=== PATIENT | male | born 1960 | race American Indian/Alaskan Native ===

== ENCOUNTER 2017-07-11 19:40 | Emergency (ER) | payer BC, OTHER ==
[~2017-07-11] VITALS: Ht 182.9 cm; Wt 117.9 kg
[~2017-07-11 19:40] MED LIST: "\\\"BP MED\\\""; AUGMENTIN 500-500 MG PO; AUGMENTIN 875-1 EACH PO; GLIMEPIRIDE1 MG PO; LANTUS100 UNITS/ SUB-Q; SENSIPAR30 MG PO; VIAGRA100 MG PO
[2017-07-11] MEDS ORDERED: LEVOFLOXACIN750 MG PO (19:52)
== END 2017-07-11 21:00 | disposition home or self-care (01) ==
LOC: ED 19:40
PROC: 0HQCXZZ Repair Left Upper Arm Skin, External Approach (ICD-10-PCS; principal; 2017-07-11)
DX: T82.838A Hemorrhage due to vascular prosthetic devices, implants and grafts, initial encounter (principal); E11.40 Type 2 diabetes mellitus with diabetic neuropathy, unspecified; I10 Essential (primary) hypertension; Z87.891 Personal history of nicotine dependence; Z88.8 Allergy status to other drugs, medicaments and biological substances; Z79.899 Other long term (current) drug therapy; Z79.4 Long term (current) use of insulin
CPT/HCPCS: 12001; 99282

== ENCOUNTER 2017-12-19 18:16 | Emergency (ER) | payer BC, OTHER ==
[~2017-12-19] VITALS: Ht 182.9 cm; Wt 117.9 kg
--- OUTSIDE RECORDS SUMMARY | ~2017-12-19 | XMS | Clinical Summary ---
Demographics + + + | Address | [address] | | | [place] [address] | + + + | Home Phone | | + + + | Preferred Language | Unknown | + + + | Marital Status | Single | + + + | Amish Affiliation | Unknown | + + + | Race | or | + + + | Ethnic Group | Not or | + + + Author + + + | Author | NON REVENUE LOCATIONS | + + + | Organization | NON REVENUE LOCATIONS | + + + | Address | Unknown | + + + | Phone | Unavailable | + + + Support + + +---------+ + | Name | Relationship | Address | Phone | + + +---------+ + | SERGEY, MERRY | ECON | Unknown | Unavailable | + + +---------+ + | Srinvias Case | ECON | Unknown | | + + +---------+ + Care Team Providers + +------+ + | Care Dietetic Assistant Name | Role | Phone | + +------+ + | No Pcp Per Patient | PP | Unavailable | + +------+ + Source Comments DOROTEO is fully live on both [facility] and [facility] InPatient.[facility] Allergies Not on File Current Medications Not on file Active Problems + + + | Problem | Noted Date | + + + | Type II or unspecified type diabetes mellitus with renal | | | manifestations, not stated as uncontrolled(250.40) ([facility]) | | + + + + + | Overview: [id number] | + + Social History + + + +--------+------+ | Tobacco Use | Types | Packs/Day | Years | Date | | | | | Used | | + + + +--------+------+ | Former Smoker | Cigarettes | | | | + + + +--------+------+ + + | Comments: smoked ~ 1pack/month; quit in 1998 | + + + + +---------+ + | Alcohol Use | Drinks/We | oz/Week | Comments | | | ek | | | + + +---------+ + | Yes | | | 6 drinks/month | + + +---------+ + + + + | Sex Assigned at | Date Recorded | | | | + + + | Not on file | | + + + Plan of Treatment + + + + + | Health Maintenance | Due Date | Last Done | Comments | + + + + + | INFLUENZA VACCINE | | | | | (FLU SHOT) | 7 | | | + + + + + Results Not on filefrom Last 3 Months"
--- OUTSIDE RECORDS SUMMARY | ~2017-12-19 | XMS | Clinical Summary ---
Demographics + + + | Address | [address] | | | [place] [address] | + + + | Home Phone | | + + + | Preferred Language | Unknown | + + + | Marital Status | Single | + + + | Zoroastrianism Affiliation | Unknown | + + + [...] Team Providers + +------+ + | Care Brake Lining Finisher Asbestos Name | Role | Phone | + +------+ + | No Pcp Per Patient | PP | Unavailable | + +------+ + Source Comments DOROTEO is fully live on both [facility] and [facility] InPatient.[facility] Allergies Not on File Current Medications Not on file Active Problems + + + | Problem | Noted Date | + + + | Type II or unspecified type diabetes mellitus with renal | | | manifestations, not stated as uncontrolled(250.40) ([facility]) | | + + + + + [...]
[~2017-12-19 18:16] MED LIST changes: +LEVOFLOXACIN750 MG PO
[2017-12-19] MEDS ORDERED: BACTRIM DS TAB1 EACH PO (19:12)
[2017-12-19] MEDS ORDERED: CEPHALEXIN500 MG PO (19:12)
[2017-12-19] MEDS ORDERED: NORCO 5-325 TA1 EACH PO (19:14)
== END 2017-12-19 19:46 | disposition home or self-care (01) ==
LOC: ED 18:16
DX: L03.116 Cellulitis of left lower limb (principal); I12.9 Hypertensive chronic kidney disease with stage 1 through stage 4 chronic kidney disease, or unspecified chronic kidney disease; E11.22 Type 2 diabetes mellitus with diabetic chronic kidney disease; E11.40 Type 2 diabetes mellitus with diabetic neuropathy, unspecified; N18.9 Chronic kidney disease, unspecified; Z99.2 Dependence on renal dialysis; Z87.891 Personal history of nicotine dependence; Z88.8 Allergy status to other drugs, medicaments and biological substances; Z79.899 Other long term (current) drug therapy; Z79.4 Long term (current) use of insulin
CPT/HCPCS: 99283

== ENCOUNTER 2019-12-29 18:23 | Emergency (ER) | payer BC, OTHER ==
[~2019-12-29] VITALS: Ht 182.9 cm; Wt 117.9 kg
[~2019-12-29 18:23] MED LIST changes: +BACTRIM DS TAB1 EACH PO; +CEPHALEXIN500 MG PO; +NORCO 5-325 TA1 EACH PO
--- NOTE | 2019-12-30 08:15 | EKG ---
[facility] [address] [facility] [place] [address] Signed Atrial fibrillation with rapid ventricular response with premature ventricular or aberrantly conducted complexes Nonspecific T wave abnormality Abnormal ECG Confirmed by SAGAR HAIDER MD ([id number]) on 12/30/2019 8:15:23 AM Electronically Signed By: SAGAR HAIDER MD 12/30/19814 PATIENT NAME: CASEISIDRA Electrocardiogram DATE OF : 58 PHYSICIAN: SAGAR HAIDER MD REPORT #: [id number] REPORT IS CONFIDENTIAL AND NOT TO BE RELEASED WITHOUT AUTHORIZATION
== END 2019-12-29 22:00 | disposition short-term general hospital (02) ==
LOC: ED 18:23
DX: A41.9 Sepsis, unspecified organism (principal); R65.20 Severe sepsis without septic shock; E11.22 Type 2 diabetes mellitus with diabetic chronic kidney disease; I12.9 Hypertensive chronic kidney disease with stage 1 through stage 4 chronic kidney disease, or unspecified chronic kidney disease; N18.9 Chronic kidney disease, unspecified; I48.91 Unspecified atrial fibrillation; E11.40 Type 2 diabetes mellitus with diabetic neuropathy, unspecified; Z79.4 Long term (current) use of insulin; Z79.899 Other long term (current) drug therapy
CPT/HCPCS: 71045; 80053; 83605; 85025; 87502; 93005; 93010; 96365; 96367; 96375; 99285-25; J0692; J2405; J3370; J7040; J7060

== ENCOUNTER → 2020-03-04 | Emergency (ER) | payer OTHER ==
[~2020-03-04] VITALS: Ht 182.9 cm; Wt 117.9 kg
--- NOTE | ~2020-03-04 | EKG ---
[facility] [address] [facility] [place], [place] [address] Draft EK completed, results pending confirmation PATIENT NAME: ISIDRA RINCON Electrocardiogram DATE OF : 58 PHYSICIAN: PRELIMINARY REPORT #: [id number] REPORT IS CONFIDENTIAL AND NOT TO BE RELEASED WITHOUT AUTHORIZATION
--- OUTSIDE RECORDS SUMMARY | ~2020-03-04 | XMS | Encounter Summary ---
Demographics + + + | Address | [address] | | | [place] [address] | + + + | Home Phone | | + + + | Preferred Language | Unknown | + + + | Marital Status | | + + + | Scientologist Affiliation | 1041 | + + + | Race | Unknown | + + + | Ethnic Group | Unknown | + + + Author + + + | Author | [facility] | | | and [place] | + + + | Organization | [facility] | | | and [place] | + + + | Address | Unknown | + + + | Phone | Unavailable | + + + Support + + +---------+ + | Name | Relationship | Address | Phone | + + +---------+ + | Lito Case | ECON | Unknown | | + + +---------+ + Care Team Providers + +------+ + | Care Dress Cutter Name | Role | Phone | + +------+ + PCP | Unavailable | + +------+ + Reason for Visit + + + | Reason | Comments | + + + | Dialysis | | | (Asymptomatic) | | + + + Encounter Details +--------+ + + + + | Date | Type | Department | Care Team | Description | +--------+ + + + + | 04/24/ | Documentati | [facility] | Kuo, Lexi W, | Dialysis | | 2014 | on | NEPHROLOGY [address] | MD [address] | (Asymptomatic) | | | | [address] | [address] [place] | | | | | [place], [place] | [place] [address] | | | | | [address] | [phone] | | | | | [phone] | | | +--------+ + + + + Social History + + + +--------+ + | Tobacco Use | Types | Packs/Day | Years | Date | | | | | Used | | + + + +--------+ + | Former Smoker | Cigarettes | 0 | | Quit: 05/27/1993 | + + + +--------+ + + +---+---+---+ | Smokeless Tobacco: | | | | | Never Used | | | | + +---+---+---+ + + +---------+ + | Alcohol Use | Drinks/Week | oz/Week | Comments | + + +---------+ + | Yes | | | 2 beers/ month | + + +---------+ + + + + | Sex Assigned at | Date Recorded | | | | + + + | Not on file | | + + + + + + + | Job Start Date | Occupation | Industry | + + + + | Not on file | Not on file | Not on file | + + + + + + + + | Travel History | Travel Start | Travel End | + + + + + + | No recent travel history available. | + + documented as of this encounter Progress Notes Dedra Camara - 05/04/2014 11:01 AM PDTHEMO progress note manually faxed to Laine Guidry and e-faxed to Frances Obrien MD on 05/04/14. Lexi Hollingsworth MD - 04/24/2014 2:29 PM PDT Comprehensive Dialysis Monthly Note Date of visit: 04/24/2014 Dialysis Clinic: [facility] Mode of dialysis: Hemodialysis Dialysis prescription: MWF, t=4 hrs, Na 138, K 2, BFR 475, EDW 119 kg HPI: CELSO CARO is a 54 y.o. male with ESRD on hemodialysis. Pt reports feeling well. Pt reports he forgets to take his phos-binders sometimes. Pt has stopped the Cinacalcet as instructed in February 2014. Pt denies shortness of breath, chest pain, edema, dysuria, abdominal pain, lightheadedness, muscle cramps. PROBLEM LIST: Patient Active Problem List Diagnosis Date Noted End stage renal disease (HCC) 08/07/2013 Priority: High Note Last Updated: 03/02/2014 ESRD due to diabetic nephropathy. On hemodialysis. Access: Left brachial-cephalic AVF created on 07/28/13. Anemia in ESRD (end-stage renal disease) ([facility]) 12/24/2013 Hypertension 09/22/2013 Preventative health care 06/25/2013 Note Last Updated: 06/25/2013 LAST PSA:No record found RESULT: LAST COLONOSCOPY: No record found RESULT Secondary hyperparathyroidism (of renal origin) 01/23/2013 Right renal mass 10/18/2012 BPH (benign prostatic hyperplasia) Note Last Updated: 10/18/2012 flomax caused diarrhea Recurrent UTI Heart murmur Note Last Updated: 10/18/2012 Since childhood Type II or unspecified type diabetes mellitus with renal manifestations, uncontrolled Note Last Updated: 10/18/2012 with neuropathy Vitamin d deficiency Obesity Dyslipidemia Hepatitis C Diabetic foot ulcer 01/01/2012 Note Last Updated: 10/18/2012 cellulits, 2nd left toe Allergies Allergen Reactions Amlodipine Besylate Unknown Metformin Diarrhea Outpatient Prescriptions Marked as Taking for the 04/24/14 encounter (Documentation) with Chris Kuo MD Medication Sig Dispense Refill aspirin 81 mg EC tablet Take 81 mg by mouth Daily. atorvaSTATin (LIPITOR) 20 mg tablet Take 1 tablet by mouth Daily. 30 tablet 5 B Cosiwfb-G-Wpiyl Acid (OLEG-TEQUILA RX) 1 MG TABS Take 1 mg by mouth Daily. 30 each 11 calcium carbonate (TUMS) 500 mg chewable tablet Take 2 tablets by mouth nightly. Cholecalciferol (VITAMIN D3) 5000 UNITS CAPS Take 5,000 Units by mouth Daily. diltiazem (DILACOR XR) 180 mg 24 hr capsule Take 180 mg by mouth Daily. doxercalciferol (HECTOROL) 4 MCG/2ML injection Inject 7 mcg into the vein Three times a week. epoetin padilla (EPOGEN, PROCRIT) 10,000 units/mL injection Inject 2,200 Units into the ve in Twice a week. furosemide (LASIX) 40 mg tablet Take 40 mg by mouth Daily. insulin glargine (LANTUS) 100 units/mL injection Inject 110 Units under the skin nightl y. Iron Sucrose (VENOFER IV) 50 mg by IV Push route Once a week. lisinopril (PRINIVIL,ZESTRIL) 40 MG tablet Take 40 mg by mouth Daily. metoprolol (TOPROL-XL) 100 MG 24 hr tablet Take 100 mg by mouth Daily. omeprazole (PRILOSEC) 20 mg capsule Take 20 mg by mouth every morning (before breakfast ). sevelamer carbonate (RENVELA) 800 mg tablet Take 1,600 mg by mouth 3 times daily (with meals). sitaGLIPtin (JANUVIA) 100 mg tablet Take 25 mg by mouth Daily. EXAM: T 97.5, HR 68, BP 157/72, weight 119.8 kg, gain 0.1 kg Constitutional: Appears well-developed and well-nourished. No distress. Cardiovascular: Normal rate, regular rhythm and normal heart sounds. No peripheral edema. Lungs: Respiratory effort normal and breath sounds normal. No crackles or wheezes. Abdominal: Soft. Bowel sounds are normal. Neurological: Alert. Dialysis Access: BFR 475 mL/min via LUE AVF. DIALYSIS LABS: K 5.0, Na 131, bicarb 21 Albumin 3.5, Ca 8.1, phos 6.4 (5.8), PTH 466 (426) Hb 11.3 URR 72%, ekt/v 1.26 ASSESSMENT AND PLAN: 1. ESRD: Dialysis clearance is at goal. . 2. Access: LUE AVF functioning well. 3. HTN/volume: Clinic BP is stable. EDW adjusted to 119 kg. 4. Anemia due to ESRD: Hb stable. On ESTIVEN. On maintenance Venofer. 5. Secondary hyperparathyroidism / mineral bone disease. -hypocalcemia: serum calcium improved; pt is inconsistent with TUMS -hyperphosphatemia: serum phos elevated; pt is inconsistent with Renvela -will switch to phosLo 2 T/meals 6. Acid-base: Serum bicarb is acceptable. 7. Nutrition: On Liquacel supplementation. -serum albumin decreased; need to improve protein intake 8. Transplantation: Pt is interested in referral to [facility] for kidney transplantation. -will send a formal letter 9. DM type 2: On Januvia and Lantus. cc: Laine Obrien documented in this encounter Plan of Treatment Not on filedocumented as of this encounter Visit Diagnoses + + | Diagnosis | + + | End stage renal disease (HCC) - Primary End stage renal disease | + + | Hypertension Unspecified essential hypertension | + + | Anemia in ESRD (end-stage renal disease) (HCC) Anemia in chronic kidney disease | + + | Secondary hyperparathyroidism (of renal origin) | + + documented in this encounter"
--- OUTSIDE RECORDS SUMMARY | ~2020-03-04 | XMS | Encounter Summary ---
Demographics + + + | Address | [address] | | | [place] [address] | + + + | Home Phone | | + + + | Preferred Language | Unknown | + + + | Marital Status | | + + + | Sikhism Affiliation | 1041 | + + + | Race | Unknown | + + + | Ethnic Group | Unknown | + + + Author + + + | Author | [facility] | | | and [place] | + + + | Organization | [facility] | | | and [place] | [...] Team Providers + +------+ + | Care Employment Coach Name | Role | Phone | + +------+ + PCP | Unavailable | + +------+ + Reason for Visit + + + | Reason | Comments | + + + | Appointment | | + + + Encounter Details +--------+ + + + + | Date | Type | Department | Care Team | Description | +--------+ + + + + | 01/16/ | Telephone | [facility] [place] | Pepper, | Appointment | | 2012 | | NEPHROLOGY [address] | [place] [address] | | | | | [address] | [address], [address] | | | | | [place], [place] | [address] [place], [place] | | | | | [address] | [address] | | | | | [phone] | | | +--------+ + + + + Social History + + + +--------+ + | Tobacco Use | Types | Packs/Day | Years | Date | | | | | Used | | + + + +--------+ + | Former Smoker | Cigarettes | 0 | | Quit: 09/14/2011 | + + + +--------+ + + [...] + + documented as of this encounter Plan of Treatment Not on filedocumented as of this encounter Visit Diagnoses Not on filedocumented in this encounter"
--- OUTSIDE RECORDS SUMMARY | ~2020-03-04 | XMS | Encounter Summary ---
Demographics + + + | Address | [address] | | | [place] [address] | + + + | Home Phone | | + + + | Preferred Language | Unknown | + + + | Marital Status | | + + + | Scientology Affiliation | 1041 | + + + | Race | Unknown | + + + | Ethnic Group | Unknown | + + + Author + + + | Author | [facility] | | | and [place] | + + + | Organization | [facility] | | | and [place] | [...] Team Providers + +------+ + | Care Deck Engineer Name | Role | Phone | + +------+ + PCP | Unavailable | + +------+ + Encounter Details +--------+ + + + + | Date | Type | Department | Care Team | Description | +--------+ + + + + | 08/07/ | Documentati | [facility] [place] | Emmanuelthalrenetta, | | | 2012 | on | NEPHROLOGY [address] | [place] [address] | | | | | [address] | [address], [address] | | | | | [place] | [address] [place] | | | | | [address] | [address] | | | | | [phone] | | | +--------+ + + + [...] documented as of this encounter Progress Notes Sarai Pabon ARNP - 08/07/2013 9:37 AM PDTPt is needing a contrast CT scan to r eevaluate renal cysts, now that he is on dialysis. Dr. Orozco is rounding on pt this month and this was discussed with him. He agreed to discuss this with pt and set this up. Elect ronically signed by TERRY Lucero at 08/07/2013 9:39 AM PDTdocumented in this encounter Plan of Treatment Not on filedocumented as of this encounter Visit Diagnoses Not on filedocumented in this encounter"
--- OUTSIDE RECORDS SUMMARY | ~2020-03-04 | XMS | Encounter Summary ---
Demographics + + + | Address | [address] | | | [place] [address] | + + + | Home Phone | | + + + | Preferred Language | Unknown | + + + | Marital Status | | + + + | Episcopal Affiliation | 1041 | + + + | Race | Unknown | + + + | Ethnic Group | Unknown | + + + Author + + + | Author | [facility] | | | and [place] | + + + | Organization | [facility] | | | and [place] [...] Team Providers + +------+ + | Care Seafood Harvester Name | Role | Phone | + +------+ + | Marco A Carrasco | PCP | | + +------+ + Reason for Visit +--------+ + | Reason | Comments | +--------+ + | Other | | +--------+ + Encounter Details +--------+ + + + + | Date | Type | Department | Care Team | Description | +--------+ + + + + | 12/29/ | Telephone | [facility] [place] | Stroemel, Uche | Other | | 2020 | | NEPHROLOGY [address] | M, DO [address] | | | | | [address] | [place], [address] | | | | | [place], [place] | [place], [place] | | | | | [address] | [address] | | | | | [phone] | | | +--------+ + + + [...] Visit Diagnoses Not on filedocumented in this encounter Additional Health Concerns + + + + | Infection | Noted Time | Resolved Time | + + + + | Methicillin-resistant Staphylococcus aureus | 11/11/2018 2:03 PM | 12/30/2019 12:36 PM | | | PST | PDT | + + + + | Rule out COVID-19 | 12/29/2019 11:14 PM | 12/30/2019 12:34 PM | | | PDT | PDT | + + + + | Rule out Respiratory Infection | 12/29/2019 11:16 PM | 12/30/2019 1:38 AM | | | PDT | PDT | + + + + | Rule out C. Difficile | 12/30/2019 12:32 AM | 12/30/2019 3:27 AM | | | PDT | PDT | + + + + documented as of this encounter"
--- OUTSIDE RECORDS SUMMARY | ~2020-03-04 | XMS | Encounter Summary ---
Demographics + + + | Address | [address] | | | [place] [address] | + + + | Home Phone | | + + + | Preferred Language | Unknown | + + + | Marital Status | | + + + | Judaism Affiliation | 1041 | + + + | Race | Unknown | + + + | Ethnic Group | Unknown | + + + Author + + + | Author | [facility] | | | and [place] | + + + | Organization | [facility] | | | and [...] Team Providers + +------+ + | Care Social Service Director Name | Role | Phone | + [...] [address] | [address], [address] | | | | | [place], [place] | [address] [place], [place] | | | | | [address] | [address] | | | | | [phone] | | | +--------+ + + + [...]
--- OUTSIDE RECORDS SUMMARY | ~2020-03-04 | XMS | Encounter Summary ---
Demographics + + + | Address | [address] | | | [place] [address] | + + + | Home Phone | | + + + | Preferred Language | Unknown | + + + | Marital Status | | + + + | Nondenominational Affiliation | 1041 | + + + | Race | Unknown | + + + | Ethnic Group | Unknown | + + + Author + + + | Author | [facility] | | | and [place] | + + + | Organization | [facility] | | | and [place] [...] Team Providers + +------+ + | Care Director Of Security Name | Role | Phone | + +------+ + PCP | Unavailable | + +------+ + Reason for Visit + + + | Reason | Comments | + + + | Medication Follow-up | | + + + Encounter Details +--------+ + + + + | Date | Type | Department | Care Team | Description | +--------+ + + + + | 09/17/ | Telephone | [facility] [place] | Clint Orozcoias | Medication Follow-up | | 2018 | | NEPHROLOGY [address] | M, DO [address] | | | | | [address] | [place], [address] | | | | | [place], [place] | [place], [place] | | | | | [address] | [address] | | | | | [phone] | | | +--------+ + + + [...]
--- OUTSIDE RECORDS SUMMARY | ~2020-03-04 | XMS | Encounter Summary ---
Demographics + + + | Address | [address] | | | [place] [address] | + + + | Home Phone | | + + + | Preferred Language | Unknown | + + + | Marital Status | Single | + + + | Gnosticist Affiliation | Unknown | + + + | Race | or | + + + | Ethnic Group | Not or | + + + Author + + + | Author | [facility] | + + + | Organization | [facility] | + + + | Address | Unknown | + + + | Phone | Unavailable | + + + Support + + +---------+ + | Name | Relationship | Address | Phone | + + +---------+ + | Delroy Case | ECON | Unknown | Unavailable | + + +---------+ + | Srinivas Case | ECON | Unknown | | + + +---------+ + Care Team Providers + +------+ + | Care Aids Nurse Name | Role | Phone | + +------+ + | Frances Obrien MD | PCP | | + +------+ + Reason for Visit + + + | Reason | Comments | + + + | Pre Transplant | Referral Closed | | Workup | | + + + Encounter Details +--------+ + + + + | Date | Type | Department | Care Team | Description | +--------+ + + + + | 12/09/ | Telephone | Clinical | Colleen Amaro, | Pre Transplant | | 2015 | | Transplant Services | RN [address] | Workup (Referral | | | | [address] | [address] | Closed) | | | | [place], | [place], [place] | | | | | [place] [address] | [address] | | | | | [phone] | | | +--------+ + + + [...]
--- OUTSIDE RECORDS SUMMARY | ~2020-03-04 | XMS | Encounter Summary ---
Demographics + + + | Address | [address] | | | [place] [address] | + + + | Home Phone | | + + + | Preferred Language | Unknown | + + + | Marital Status | | + + + | Restorationism Affiliation | 1041 | + + + | Race | Unknown | + + + | Ethnic Group | Unknown | + + + Author + + + | Author | and [facility] | | | and [place] | + + + | Organization | and [facility] | | | and [...] Team Providers + +------+ + | Care Front Load Trash Truck Driver Name | Role | Phone | + +------+ + PCP | Unavailable | + +------+ + Reason for Visit + + + | Reason | Comments | + + + | Medication | | | Management | | + + + Encounter Details +--------+ + + + + | Date | Type | Department | Care Team | Description | +--------+ + + + + | 05/20/ | Telephone | [facility] | Uche Orozco | Medication | | 2019 | | NEPHROLOGY [address] | M, [address] | Management | | | | [address] | [place], [address] | | | | | [place], [place] | [place], [place] | | | | | [address] | [address] | | | | | [phone] | | | +--------+ + + + [...]
--- OUTSIDE RECORDS SUMMARY | ~2020-03-04 | XMS | Encounter Summary ---
Demographics + + + | Address | [address] | | | [place] [address] | + + + | Home Phone | | + + + | Preferred Language | Unknown | + + + | Marital Status | | + + + | Denominational Affiliation | 1041 | + + + | Race | Unknown | + + + | Ethnic Group | Unknown | + + + Author + + + | Author | [facility] | | | and [place] | + + + | Organization | [facility] | | | and [place] | [...] Team Providers + +------+ + | Care Lodging Manager Name | Role | Phone | + +------+ + PCP | Unavailable | + +------+ + Encounter Details +--------+ + + + + | Date | Type | Department | Care Team | Description | +--------+ + + + + | 09/29/ | Abstract | [facility] [place] | Uche Orozco | | | 2014 | | NEPHROLOGY [address] | M, DO [address] | | | | | [address] | [place], [address] | | | | | [place] | [place] | | | | | [address] | [address] | | | | | [phone] | | | +--------+ + + + [...] Not on filedocumented as of this encounter Procedures + +--------+ + + + | Procedure Name | Priori | Date/Time | Associated Diagnosis | Comments | | | ty | | | | + +--------+ + + + | EXTERNAL LAB: | Routin | 09/27/2015 | | Results for this | | PHOSPHORUS | e | | | procedure are in the | | | | | | results section. | + +--------+ + + + | EXTERNAL LAB: CBC | Routin | 09/27/2015 | | Results for this | | | e | | | procedure are in the | | | | | | results section. | + +--------+ + + + documented in this encounter Results External Lab: Phosphorus (09/27/2015) + +---------+ + + + | Component | Value | Ref Range | Performed | Pathologist | | | | | At | Signature | + +---------+ + + + | Phosphorus, | 8.5 (A) | 2.5 - 5 | EXTERNAL | | | External | | | LAB | | + +---------+ + + + + + | Resulting Agency Comment | + + | [facility] | + + + +---------+ + + | Performing | Address | City/State/Zipcode | Phone Number | | Organization | | | | + +---------+ + + | EXTERNAL LAB | | | | + +---------+ + + External Lab: CBC (09/27/2015) + + + + + + | Component | Value | Ref Range | Performed | Pathologist | | | | | At | Signature | + + + + + + | HGB, | 11.1 (A) | 14 - 18 | EXTERNAL | | | External | | | LAB | | + + + + + + + + | Resulting Agency Comment | + + | [facility] | + + + +---------+ + + | Performing | Address | City/State/Zipcode | Phone Number | | Organization | | | | + +---------+ + + | EXTERNAL LAB | | | | + +---------+ + + documented in this encounter Visit Diagnoses Not on filedocumented in this encounter"
--- OUTSIDE RECORDS SUMMARY | ~2020-03-04 | XMS | Clinical Summary ---
Demographics + + + | Address | [address] | | | [place] [address] | + + + | Home Phone | | + + + | Preferred Language | Unknown | + + + | Marital Status | Single | + + + | Mandaeism Affiliation | Unknown | + + + | Race | Unknown | + + + | Ethnic Group | Unknown | + + + Author + + + | Author | [facility] (Historical as of | | | 05-24-19) | + + + | Organization | [facility] (Historical as of | | | 05-24-19) | + + + | Address | Unknown | + + + | Phone | Unavailable | + + + Support + + +---------+ + | Name | Relationship | Address | Phone | + + +---------+ + | Lito Caro | ECON | Unknown | | + + +---------+ + Care Team Providers + +------+ + | Care Network Cable Installer Name | Role | Phone | + +------+ + | Dr. Phyllis | PP | Unavailable | + +------+ + Allergies Not on File Current Medications Not on file Active Problems Not on file Social History + +-------+ +--------+------+ | Tobacco Use | Types | Packs/Day | Years | Date | | | | | Used | | + +-------+ +--------+------+ | Never Assessed | | | | | + +-------+ +--------+------+ + + + | Sex Assigned at | Date Recorded | | | | + + + | Not on file | | + + + Last Filed Vital Signs + + + + | Vital Sign | Reading | Time Taken | + + + + | Blood Pressure | 138/80 | 11/23/2009 3:25 PM PST | + + + + | Pulse | - | - | + + + + | Temperature | - | - | + + + + | Respiratory Rate | - | - | + + + + | Oxygen Saturation | - | - | + + + + | Inhaled Oxygen | - | - | | Concentration | | | + + + + | Weight | 130.6 kg (288 lb) | 11/23/2009 3:25 PM PST | + + + + | Height | 185.4 cm (6' 1") | 11/09/2009 2:43 PM PST | + + + + | Body Mass Index | 38 | 11/23/2009 3:25 PM PST | + + + + Plan of Treatment Not on file Results Not on filefrom Last 3 Months
--- OUTSIDE RECORDS SUMMARY | ~2020-03-04 | XMS | Encounter Summary ---
Demographics + + + | Address | [address] | | | [place] [address] | + + + | Home Phone | | + + + | Preferred Language | Unknown | + + + | Marital Status | | + + + | Adventist Affiliation | 1041 | + + + | Race | Unknown | + + + | Ethnic Group | Unknown | + + + Author + + + | Author | [facility] | | | and [place] | + + + | Organization | [facility] | | | and [...] Team Providers + +------+ + | Care Suspect Artist Name | Role | Phone | + +------+ + PCP | Unavailable | + +------+ + Encounter Details +--------+ + + + + | Date | Type | Department | Care Team | Description | +--------+ + + + + | 10/29/ | Orders Only | [facility] | Lexi Kuo W, | | | 2016 | | NEPHROLOGY [address] | [address] | | | | | [address] | [address] | | | | | [place] | [place] [address] | | | | | [address] | [phone] | | | | | [phone] | | | +--------+ + + + [...]
--- OUTSIDE RECORDS SUMMARY | ~2020-03-04 | XMS | Encounter Summary ---
Demographics + + + | Address | [address] | | | [place] [address] | + + + | Home Phone | | + + + | Preferred Language | Unknown | + + + | Marital Status | | + + + | Yazdanism Affiliation | 1041 | + + + | Race | Unknown | + + + | Ethnic Group | Unknown | + + + Author + + + | Author | [facility] | | | and [place] | + + + | Organization | [facility] | | | and [place] [...] Team Providers + +------+ + | Care First Coat Sander Name | Role | Phone | + +------+ + PCP | Unavailable | + +------+ + Reason for Visit + + + | Reason | Comments | + + + | Vascular Access | | | Problem | | + + + Encounter Details +--------+ + + + + | Date | Type | Department | Care Team | Description | +--------+ + + + + | 09/21/ | Emergency | [facility] | Riley Reilly S, | Occluded PICC line, | | 2018 | | [facility] | MD [address] | initial encounter | | | | CENTER [address] | [place] | ([facility]) (Primary Dx); | | | | [place] | [id number] | Elevated blood | | | | [address] | | pressure reading | | | | [phone] | | | +--------+ + + + [...] + + documented as of this encounter Last Filed Vital Signs + + + + + | Vital Sign | Reading | Time Taken | Comments | + + + + + | Blood Pressure | 149/60 | 09/21/2018 12:59 PM | | | | | PST | | + + + + + | Pulse | 51 | 09/21/2018 12:59 PM | | | | | PST | | + + + + + | Temperature | 36.1 C (97 F) | 09/21/2018 12:59 PM | | | | | PST | | + + + + + | Respiratory Rate | 18 | 09/21/2018 12:59 PM | | | | | PST | | + + + + + | Oxygen Saturation | 100% | 09/21/2018 12:59 PM | | | | | PST | | + + + + + | Inhaled Oxygen | - | - | | | Concentration | | | | + + + + + | Weight | 117.9 kg (260 lb) | 09/21/2018 12:59 PM | | | | | PST | | + + + + + | Height | - | - | | + + + + + | Body Mass Index | 34.3 | 09/05/2018 5:05 PM | | | | | PST | | + + + + + documented in this encounter Discharge Instructions AttachmentsThe following attachments cannot be sent through Care Everywhere.Flushing Your P ICC Line at Home (Cameroonian)PICC Line Care (Cameroonian)documented in this encounter Medications at Time of Discharge + + + +---------+ + + | Medication | Sig | Dispensed | Refills | Start | End Date | | | | | | Date | | + + + +---------+ + + | B [id number]-[id number] | Take 1 mg by mouth | 30 each | 11 | 06/26/20 | | | Acid (OLEG-TEQUILA RX) | Daily. | | | 13 | | | 1 MG TABS | | | | | | + + + +---------+ + + | Cholecalciferol | Take 5,000 Units by | | 0 | | | | (VITAMIN D3) 5000 | mouth Daily. | | | | | | UNITS CAPS | | | | | | + + + +---------+ + + | doxercalciferol | Inject 10 mcg into | | 0 | | | | (HECTOROL) 2 mcg/mL | the vein Three times | | | | | | injection | a week. | | | | | + + + +---------+ + + | rosuvastatin | Take 20 mg by mouth | | 0 | 03/19/20 | | | (CRESTOR) 20 mg | Daily. | | | 18 | | | tablet | | | | | | + + + +---------+ + + | sucroferric | Take 1 tablet by | | 0 | 02/06/20 | | | oxyhydroxide | mouth 4 times daily | | | 18 | | | (VELPHORO) 500 mg | (before meals and | | | | | | chewable tablet | nightly). | | | | | + + + +---------+ + + | | Inject 3 g into the | | 0 | 09/11/20 | | | ampicillin-sulbactam | vein every 24 hours | | | 18 | 9 | | (UNASYN) IVPB | for 37 days. Through | | | | | | (custom doses 1.5-3 | 10/18/2018, via | | | | | | g) 3 gIndications: | [place]. Indications: | | | | | | Diabetic Foot | Infection of Foot | | | | | | Infection, | in Diabetic Patient, | | | | | | Osteomyelitis | Infection of Bone | | | | | | | and Bone Marrow | | | | | + + + +---------+ + + | apixaban (ELIQUIS) | Take 1 tablet by | 60 | 0 | 09/11/20 | | | 2.5 mg tablet | mouth 2 times daily. | tablet | | 18 | 9 | + + + +---------+ + + | cinacalcet | Take 1 tablet by | 30 | 0 | 12/04/19 | | | (SENSIPAR) 60 MG | mouth Daily. | tablet | | 17 | 9 | | tablet | | | | | | + + + +---------+ + + | epoetin padilla | Inject 1,000 Units | | 0 | | | | (EPOGEN, PROCRIT) | into the vein Three | | | | 0 | | 10,000 units/mL | times a week. | | | | | | injection | | | | | | + + + +---------+ + + | furosemide (LASIX) | Take 80 mg by mouth | | 0 | | | | 80 mg tablet | Daily. | | | | 9 | + + + +---------+ + + | | Take 1 tablet by | 40 | 0 | 09/11/20 | | | HYDROcodone-acetamin | mouth every 12 hours | tablet | | 18 | 9 | | ophen (NORCO) 5-325 | as needed for Pain. | | | | | | mg per tablet | | | | | | + + + +---------+ + + | Hypromellose | Place 1 drop into | | 0 | | | | (ARTIFICIAL TEARS | both eyes Daily as | | | | 9 | | OP) | needed (dry eyes). | | | | | + + + +---------+ + + | insulin glargine | Inject 25 Units | | 0 | | | | (LANTUS) 100 | under the skin 2 | | | | 0 | | units/mL injection | times daily. | | | | | | (vial) | | | | | | + + + +---------+ + + | metoprolol | Take 0.5 tablets by | 30 | 0 | 09/11/20 | | | succinate | mouth Daily. | tablet | | 18 | 0 | | (TOPROL-XL) 100 mg | | | | | | | ER tablet | | | | | | + + + +---------+ + + | omeprazole | Take 20 mg by mouth | | 0 | | | | (PRILOSEC) 20 mg | Daily as needed (for | | | | 9 | | capsule | stomach). | | | | | + + + +---------+ + + | vancomycin IVPB 1 | Inject 1 g into the | | 0 | 09/12/20 | | | gIndications: Acute | vein Twice a week. Q | | | 18 | 9 | | Osteomyelitis, | Sun and Sunday, | | | | | | PURULENT SKIN AND | after HD, by Brandee, | | | | | | SOFT TISSUE | through 10/18/18. | | | | | | INFECTION | Indications: Acute | | | | | | | Bone Infection that | | | | | | | May Spread to the | | | | | | | Bone Marrow, | | | | | | | Purulent Skin and | | | | | | | Soft Tissue | | | | | | | Infection | | | | | + + + +---------+ + + documented as of this encounter Plan of Treatment Not on filedocumented as of this encounter Visit Diagnoses + + | Diagnosis | + + | Occluded PICC line, initial encounter (HCC) - Primary | + + | Elevated blood pressure reading Elevated blood pressure reading without diagnosis of | | hypertension | + + documented in this encounter Administered Medications + +--------+ +------+------+------+ | Medication Order | MAR | Action | Dose | Rate | Site | | | Action | Date | | | | + +--------+ +------+------+------+ | alteplase (CATHFLO ACTIVASE) | Given | 09/21/20 | 2 mg | | | | injection 2 mg 2 mg, | | 18 2:07 | | | | | Intracatheter, ONCE, 09/21/18 | | PM PST | | | | | at 1330, For 1 dose | | | | | | + +--------+ +------+------+------+ +---+---+ | | | +---+---+ documented in this encounter"
--- OUTSIDE RECORDS SUMMARY | ~2020-03-04 | XMS | Encounter Summary ---
Demographics + + + | Address | [address] | | | [place] [address] | + + + | Home Phone | | + + + | Preferred Language | Unknown | + + + | Marital Status | | + + + | Mandaen Affiliation | 1041 | + + + | Race | Unknown | + + + | Ethnic Group | Unknown | + + + Author + + + | Author | [facility] | | | and [place] | + + + | Organization | [facility] | | | and [place] [...] Team Providers + +------+ + | Care Acls Nurse Name | Role | Phone | [...] NEPHROLOGY [address] | M, DO [address] | | | | | [address] | [place], [address] | | | | | [place] | [place] | | | | | [address] | [address] | | | | | [phone] | | | +--------+ + + + [...]
--- OUTSIDE RECORDS SUMMARY | ~2020-03-04 | XMS | Encounter Summary ---
Demographics + + + | Address | [address] | | | [place] [address] | + + + | Home Phone | | + + + | Preferred Language | Unknown | + + + | Marital Status | | + + + | Episcopalian Affiliation | 1041 | + + + | Race | Unknown | + + + | Ethnic Group | Unknown | + + + Author + + + | Author | [facility] | | | and [place] | + + + | Organization | [facility] | | | and [...] Team Providers + +------+ + | Care Rn Medical Surgical Name | Role | Phone | + +------+ + PCP | Unavailable | + +------+ + Encounter Details +--------+ + + + + | Date | Type | Department | Care Team | Description | +--------+ + + + + | 01/28/ | Orders Only | [facility] [place] | [place], | Chronic kidney | | 2013 | | NEPHROLOGY [address] | [place] [address] | disease (CKD), stage | | | | [address] | [address], [place] | V ([facility]) (Primary | | | | [place], [place] | [address] [place], [place] | Dx); Unspecified | | | | [address] | [address] | hypertensive kidney | | | | [phone] | | disease with chronic | | | | | | kidney disease | | | | | | stage I through | | | | | | stage IV, or | | | | | | unspecified | +--------+ + + + + Social [...] + documented as of this encounter Progress Shelley Bui RN - 01/28/2013 5:04 PM PDTLab order for nephrology appt on 02/24/13 faxed to [facility]. documented in t his encounter Plan of Treatment Not on filedocumented as of this encounter Visit Diagnoses + + | Diagnosis | + + | Chronic kidney disease (CKD), stage V (HCC) - Primary Chronic kidney disease, Stage V | + + | Unspecified hypertensive kidney disease with chronic kidney disease stage I through | | stage IV, or unspecified(403.90) Unspecified hypertensive kidney disease with chronic | | kidney disease stage I through stage IV, or unspecified | + + documented in this encounter"
--- OUTSIDE RECORDS SUMMARY | ~2020-03-04 | XMS | Encounter Summary ---
Demographics + + + | Address | [address] | | | [place] [address] | + + + | Home Phone | | + + + | Preferred Language | Unknown | + + + | Marital Status | | + + + | Buddhism Affiliation | 1041 | + + + | Race | Unknown | + + + | Ethnic Group | Unknown | + + + Author + + + | Author | [facility] | | | and [place] | + + + | Organization | [facility] | | | and [place] [...] Team Providers + +------+ + | Care Industrial Management Teacher Name | Role | Phone | + +------+ + PCP | Unavailable | + +------+ + Encounter Details +--------+ + + + + | Date | Type | Department | Care Team | Description | +--------+ + + + + | 07/28/ | Hospital | [facility] | Artem Angelo | | | 2012 | Encounter | [facility] | [place], [facility] [address] | | | | | [address] | [place] | | | | | [place] | [place] [address] | | | | | [address] | [phone] | | | | | [phone] | | | +--------+ + + + [...] + + documented as of this encounter Medications at Time of Discharge + + + +---------+ + + | Medication | Sig | Dispensed | Refills | Start | End Date | | | | | | Date | | + + + +---------+ + + | B Nsbglyo-Q-Zkiyc | Take 1 mg by mouth | 30 each | 11 | 06/26/20 | | | Acid (OLEG-TEQUILA RX) | Daily. | | | 13 | | | 1 MG TABS | | | | | | + + + +---------+ + + | aspirin 81 mg EC | Take 81 mg by mouth | | 0 | | | | tablet | Daily. | | | | 8 | + + + +---------+ + + | atorvaSTATin | Take 1 tablet by | 30 | 5 | 06/26/20 | | | (LIPITOR) 20 mg | mouth Daily. | tablet | | 13 | 8 | | tablet | | | | | | + + + +---------+ + + | cholecalciferol | Take 1 tablet by | | 0 | 01/24/20 | | | (VITAMIN D-3) 2000 | mouth Daily. | | | 13 | 4 | | UNITS TABS | | | | | | + + + +---------+ + + | diltiazem (DILACOR | Take 180 mg by mouth | | 0 | | | | XR) 180 mg 24 hr | Daily. | | | | 4 | | capsule | | | | | | + + + +---------+ + + | doxercalciferol | Inject 0.5 mcg into | | 0 | | | | (HECTOROL) 4 MCG/2ML | the vein Three times | | | | 6 | | | a week. | | | | | | injectionIndications | | | | | | | : End stage renal | | | | | | | disease (HCC), | | | | | | | Secondary | | | | | | | hyperparathyroidism | | | | | | | (of renal origin), | | | | | | | Hepatitis C | | | | | | + + + +---------+ + + | epoetin padilla | Inject 3,000 Units | | 0 | | | | (EPOGEN, PROCRIT) | into the vein Three | | | | 6 | | 10,000 units/mL | times a week. | | | | | | injectionIndications | | | | | | | : End stage renal | | | | | | | disease (HCC), | | | | | | | Secondary | | | | | | | hyperparathyroidism | | | | | | | (of renal origin), | | | | | | | Hepatitis C | | | | | | + + + +---------+ + + | furosemide (LASIX) | Take 80 mg by mouth | | 0 | | | | 40 mg | Daily. | | | | 7 | | tabletIndications: | | | | | | | End stage renal | | | | | | | disease (HCC), | | | | | | | Secondary | | | | | | | hyperparathyroidism | | | | | | | (of renal origin), | | | | | | | Hepatitis C | | | | | | + + + +---------+ + + | furosemide (LASIX) | Take 1 tablet by | 30 | 5 | 06/27/20 | | | 80 mg tablet | mouth Daily. | tablet | | 13 | 3 | + + + +---------+ + + | gentamicin 0.1% | Apply to peritoneal | 15 g | 0 | 06/26/20 | | | ointment | dialysis catheter | | | 13 | 3 | | | exit site daily. | | | | | + + + +---------+ + + | insulin glargine | 60 units, SQ, a.m., | | 0 | | | | (LANTUS) 100 | and 50 units SQ, PM. | | | | 6 | | units/mL injection | | | | | | + + + +---------+ + + | lisinopril | Take 40 mg by mouth | | 0 | | | | (PRINIVIL,ZESTRIL) | Daily. | | | | 8 | | 40 MG tablet | | | | | | + + + +---------+ + + | metoprolol | Take 100 mg by mouth | | 0 | | | | (TOPROL-XL) 100 MG | Daily. | | | | 8 | | 24 hr tablet | | | | | | + + + +---------+ + + | omeprazole | Take 20 mg by mouth | | 0 | | | | (PRILOSEC) 20 mg | every morning | | | | 4 | | capsule | (before breakfast). | | | | | + + + +---------+ + + | sevelamer | Take 1,600 mg by | | 0 | 06/26/20 | | | carbonate (RENVELA) | mouth 3 times daily | | | 13 | 4 | | 800 mg tablet | (with meals). | | | | | + + + +---------+ + + | sevelamer | Take 1 tablet by | 90 | 5 | 06/26/20 | | | carbonate (RENVELA) | mouth 3 times daily | tablet | | 13 | 4 | | 800 mg tablet | (with meals). | | | | | + + + +---------+ + + | sitaGLIPtin | Take 25 mg by mouth | | 0 | | | | (JANUVIA) 100 mg | Daily. | | | | 8 | | tablet | | | | | | + + + +---------+ + + | sodium bicarbonate | Take 2 tablets by | 60 | 1 | 06/27/20 | | | 650 mg tablet | mouth 2 times daily. | tablet | | 13 | 3 | + + + +---------+ + + documented as of this encounter Plan of Treatment Not on filedocumented as of this encounter Procedures + +--------+ + + + | Procedure Name | Priori | Date/Time | Associated Diagnosis | Comments | | | ty | | | | + +--------+ + + + | POC GLUCOSE | Routin | 07/28/2013 | | Results for this | | | e | 1:38 PM | | procedure are in the | | | | PDT | | results section. | + +--------+ + + + | POC GLUCOSE | Routin | 07/28/2013 | | Results for this | | | e | 1:36 PM | | procedure are in the | | | | PDT | | results section. | + +--------+ + + + | POC GLUCOSE | Routin | 07/28/2013 | | Results for this | | | e | 1:01 PM | | procedure are in the | | | | PDT | | results section. | + +--------+ + + + | POC GLUCOSE | Routin | 07/28/2013 | | Results for this | | | e | 12:59 PM | | procedure are in the | | | | PDT | | results section. | + +--------+ + + + | POTASSIUM | Routin | 07/28/2013 | | Results for this | | | e | 9:11 AM | | procedure are in the | | | | PDT | | results section. | + +--------+ + + + | POTASSIUM | Routin | 07/28/2013 | | Results for this | | | e | 9:11 AM | | procedure are in the | | | | PDT | | results section. | + +--------+ + + + | GLUCOSE, RANDOM | Routin | 07/28/2013 | | Results for this | | | e | 9:11 AM | | procedure are in the | | | | PDT | | results section. | + +--------+ + + + | GLUCOSE, RANDOM | Routin | 07/28/2013 | | Results for this | | | e | 9:11 AM | | procedure are in the | | | | PDT | | results section. | + +--------+ + + + | POC GLUCOSE | Routin | 07/28/2013 | | Results for this | | | e | 9:09 AM | | procedure are in the | | | | PDT | | results section. | + +--------+ + + + | POC GLUCOSE | Routin | 07/28/2013 | | Results for this | | | e | 9:09 AM | | procedure are in the | | | | PDT | | results section. | + +--------+ + + + | POC GLUCOSE | Routin | 07/28/2013 | | Results for this | | | e | 9:04 AM | | procedure are in the | | | | PDT | | results section. | + +--------+ + + + | POC GLUCOSE | Routin | 07/28/2013 | | Results for this | | | e | 9:00 AM | | procedure are in the | | | | PDT | | results section. | + +--------+ + + + documented in this encounter Results POC Glucose (07/28/2013 1:38 PM PDT) + +---------+ + + + | Component | Value | Ref Range | Performed | Pathologist | | | | | At | Signature | + +---------+ + + + | Glucose, | 278 (H) | 79 - 150 md/dL | [facility] | | | [facility] | | | [facility] | | | | | | [facility] | | | | | | [facility] - | | | | | | LABORATORY | | + +---------+ + + + + + | Specimen | + + | | + + + + + + + | Performing | Address | City/State/Zipcode | Phone Number | | Organization | | | | + + + + + | [facility] | [address] | [place] | [phone] | | [facility] | | [address] | | | - LABORATORY | | | | + + + + + | [facility] | [address] | [place], [place] | | | [facility] | | [address], [facility] | | | - LABORATORY | | | | + + + + + POC Glucose (07/28/2013 1:36 PM PDT) + +---------+ + + + | Component | Value | Ref Range | Performed | Pathologist | | | | | At | Signature | + +---------+ + + + | Glucose, | 278 (H) | 79 - 150 md/dL | [facility] | | [facility] | | | | | | MEDICAL | | | | | | CENTER - | | | | | | LABORATORY | | + +---------+ + + + + + | Specimen | + + | | + + + + + + + | Performing | Address | City/State/Zipcode | Phone Number | | Organization | | | | + + + + + | [facility] | [address] | [place] | [phone] | | [facility] | | [address] | | | - LABORATORY | | | | + + + + + | [facility] | [address] | [place], [place] | | | [facility] | | [id number] [place] [address] | | | - LABORATORY | | | | + + + + + POC Glucose (07/28/2013 1:01 PM PDT) + +---------+ + + + | Component | Value | Ref Range | Performed | Pathologist | | | | | At | Signature | + +---------+ + + + | Glucose, | 287 (H) | 79 - 150 md/dL | [facility] | | | [facility] | | | [facility] | | | | | | [facility] | | | | | | CENTER - | | | | | | LABORATORY | | + +---------+ + + + + + | Specimen | + + | | + + + + + + + | Performing | Address | City/State/Zipcode | Phone Number | | Organization | | | | + + + + + | [facility] | [address] | [place] | [phone] | | [facility] | | [address] | | | - LABORATORY | | | | + + + + + | [facility] | [address] | [place] | | | [facility] | | [id number] | | | - LABORATORY | | | | + + + + + POC Glucose (07/28/2013 12:59 PM PDT) + +---------+ + + + | Component | Value | Ref Range | Performed | Pathologist | | | | | At | Signature | + +---------+ + + + | Glucose, | 287 (H) | 79 - 150 md/dL | [facility] | | [facility] | | [facility] | | | | | | MEDICAL | | | | | | CENTER - | | | | | | LABORATORY | | + +---------+ + + + + + | Specimen | + + | | + + + + + + + | Performing | Address | City/State/Zipcode | Phone Number | | Organization | | | | + + + + + | [facility] | [address] | [place], [place] | [phone] | | [facility] | | [address] | | | - LABORATORY | | | | + + + + + | [facility] | [address] | [place], [place] | | | [facility] | | [address] [place] [address] | | | - LABORATORY | | | | + + + + + Potassium (07/28/2013 9:11 AM PDT) + +-------+ + + + | Component | Value | Ref Range | Performed | Pathologist | | | | | At | Signature | + +-------+ + + + | K | 4.0 | 3.5 - 5.1 mEq/l | [facility] | | | | | | [facility] | | | | | | MEDICAL | | | | | | CENTER - | | | | | | LABORATORY | | + +-------+ + + + + + | Specimen | + + | | + + + + + + + | Performing | Address | City/State/Zipcode | Phone Number | | Organization | | | | + + + + + | [facility] | [address] | [place] | [phone] | | [facility] | | [address] | | | - LABORATORY | | | | + + + + + | [facility] | [address] | [place] | | | [facility] | | [address], [facility] | | | - LABORATORY | | | | + + + + + Glucose, Random (07/28/2013 9:11 AM PDT) + +---------+ + + + | Component | Value | Ref Range | Performed | Pathologist | | | | | At | Signature | + +---------+ + + + | Glucose | 395 (H) | 70 - 109 mg/dL | [facility] | | | | | | [facility] | | | | | | MEDICAL | | | | | | CENTER - | | | | | | LABORATORY | | + +---------+ + + + + + | Specimen | + + | | + + + + + + + | Performing | Address | City/State/Zipcode | Phone Number | | Organization | | | | + + + + + | [facility] | [address] | [place] | [phone] | | [facility] | | [address] | | | - LABORATORY | | | | + + + + + | [facility] | [address] | [place] | | | [facility] | | [address] [place] [address] | | | - LABORATORY | | | | + + + + + Glucose, Random (07/28/2013 9:11 AM PDT) + +---------+ + + + | Component | Value | Ref Range | Performed | Pathologist | | | | | At | Signature | + +---------+ + + + | Glucose | 395 (H) | 70 - 109 mg/dL | [facility] | | | | | [facility] | | | | | | MEDICAL | | | | | | CENTER - | | | | | | LABORATORY | | + +---------+ + + + + + | Specimen | + + | | + + + + + | Narrative | Performed At | + + + | Collect By: Nurse Collect By: Nurse | [facility] | | | [facility] | | | [facility] | | | - LABORATORY | + + + + + + + + | Performing | Address | City/State/Zipcode | Phone Number | | Organization | | | | + + + + + | [facility] | [address] | [place], [place] | [phone] | | [facility] | | [address] | | | - LABORATORY | | | | + + + + + | [facility] | [address] | [place], [place] | | | [facility] | | [id number] [place] [address] | | | - LABORATORY | | | | + + + + + Potassium (07/28/2013 9:11 AM PDT) + +-------+ + + + | Component | Value | Ref Range | Performed | Pathologist | | | | | At | Signature | + +-------+ + + + | K | 4.0 | 3.5 - 5.1 mEq/l | [facility] | | | | | [facility] | | | | | | MEDICAL | | | | | | CENTER - | | | | | | LABORATORY | | + +-------+ + + + + + | Specimen | + + | | + + + + + | Narrative | Performed At | + + + | Collect By: Nurse Collect By: Nurse | [facility] | | | [facility] | | | [facility] | | | - LABORATORY | + + + + + + + + | Performing | Address | City/State/Zipcode | Phone Number | | Organization | | | | + + + + + | [facility] | [address] | [place], [place] | [phone] | | [facility] | | [address] | | | - LABORATORY | | | | + + + + + | [facility] | [address] | [place], [place] | | | [facility] | | [address], [facility] | | | - LABORATORY | | | | + + + + + POC Glucose (07/28/2013 9:09 AM PDT) + + + + + + | Component | Value | Ref Range | Performed | Pathologist | | | | | At | Signature | + + + + + + | Glucose, | 417 (H)Comment: Glu2: | 79 - 150 md/dL | [facility] | | | POC | Doctor Notified | | [facility] | | | | | | MEDICAL | | | | | | CENTER - | | | | | | LABORATORY | | + + + + + + + + | Specimen | + + | | + + + + + + + | Performing | Address | City/State/Zipcode | Phone Number | | Organization | | | | + + + + + | [facility] | [address] | [place], [place] | [phone] | | [facility] | | [address] | | | - LABORATORY | | | | + + + + + | [facility] | [address] | [place] | | | [facility] | | [address], [facility] | | | - LABORATORY | | | | + + + + + POC Glucose (07/28/2013 9:09 AM PDT) + + + + + + | Component | Value | Ref Range | Performed | Pathologist | | | | | At | Signature | + + + + + + | Glucose, | 372 (H)Comment: Glu2: | 79 - 150 md/dL | [facility] | | | POC | Repeat Testing | | [facility] | | | | | | MEDICAL | | | | | | CENTER - | | | | | | LABORATORY | | + + + + + + + + | Specimen | + + | | + + + + + + + | Performing | Address | City/State/Zipcode | Phone Number | | Organization | | | | + + + + + | [facility] | [address] | [place] | [phone] | | [facility] | | [address] | | | - LABORATORY | | | | + + + + + | [facility] | [address] | [place] | | | [facility] | | [address], [facility] | | | - LABORATORY | | | | + + + + + POC Glucose (07/28/2013 9:04 AM PDT) + + + + + + | Component | Value | Ref Range | Performed | Pathologist | | | | | At | Signature | + + + + + + | Glucose, | 417 (H)Comment: Glu2: | 79 - 150 md/dL | [facility] | | | POC | Doctor Notified | | [facility] | | | | | | MEDICAL | | | | | | CENTER - | | | | | | LABORATORY | | + + + + + + + + | Specimen | + + | | + + + + + | Narrative | Performed At | + + + | Glu2: Doctor Notified | [facility] | | | [facility] | | | [facility] | | | - LABORATORY | + + + + + + + + | Performing | Address | City/State/Zipcode | Phone Number | | Organization | | | | + + + + + | [facility] | [address] | [place] | [phone] | | [facility] | | [address] | | | - LABORATORY | | | | + + + + + | [facility] | [address] | [place] | | | [facility] | | [address], [facility] | | | - LABORATORY | | | | + + + + + POC Glucose (07/28/2013 9:00 AM PDT) + + + + + + | Component | Value | Ref Range | Performed | Pathologist | | | | | At | Signature | + + + + + + | Glucose, | 372 (H)Comment: Glu2: | 79 - 150 md/dL | [facility] | | | POC | Repeat Testing | | [facility] | | | | | | MEDICAL | | | | | | CENTER - | | | | | | LABORATORY | | + + + + + + + + | Specimen | + + | | + + + + + | Narrative | Performed At | + + + | Glu2: Repeat Testing | [facility] | | | [facility] | | | [facility] | | | - LABORATORY | + + + + + + + + | Performing | Address | City/State/Zipcode | Phone Number | | Organization | | | | + + + + + | [facility] | [address] | [place] | [phone] | | [facility] | | [address] | | | - LABORATORY | | | | + + + + + | [facility] | [address] | [place] | | | [facility] | | [id number] | | | - LABORATORY | | | | + + + + + documented in this encounter Visit Diagnoses Not on filedocumented in this encounter"
--- OUTSIDE RECORDS SUMMARY | ~2020-03-04 | XMS | Encounter Summary ---
Demographics + + + | Address | [address] | | | [place] [address] | + + + | Home Phone | | + + + | Preferred Language | Unknown | + + + | Marital Status | | + + + | Advent Affiliation | 1041 | + + + | Race | Unknown | + + + | Ethnic Group | Unknown | + + + Author + + + | Author | [facility] | | | and [place] | + + + | Organization | [facility] | | | and [place] [...] Team Providers + +------+ + | Care Whipped Topping Finisher Name | Role | Phone | + +------+ + PCP | Unavailable | + +------+ + Reason for Referral Diagnostic/Screening (Routine) +--------+--------+ + + + + | Status | Reason | Specialty | Diagnoses / | Referred By | Referred To | | | | | Procedures | Contact | Contact | +--------+--------+ + + + + | Closed | | Radiology | Diagnoses | Kuo, | [address] | | | | | Right renal | Lexi W, | [address] | | | | | mass | MD [address] | [place], | | | | | Procedures | [address] [place] | [place] [address] | | | | | CT Abdomen | [address] [place] | Phone: | | | | | Pelvis w | [place], [place] | [phone] | | | | | Contrast | [address] | Fax: | | | | | 05/08>PEND | Phone: | [phone] | | | | | [place] | [phone] | | | | | | [place] | Fax: | | | | | | | [phone] | | +--------+--------+ + + + + Reason for Visit Diagnostic/Screening (Routine) +--------+--------+ + + + + | Status | Reason | Specialty | Diagnoses / | Referred By | Referred To | | | | | Procedures | Contact | Contact | +--------+--------+ + + + + | Closed | | Radiology | Diagnoses | Kuo, | [address] | | | | | Right renal | Lexi W, | [address] | | | | | mass | MD [address] | [place], | | | | | Procedures | [address] [place] | [place] [address] | | | | | CT Abdomen | [address] [place] | Phone: | | | | | Pelvis w | [place] | [phone] | | | | | Contrast | [address] | Fax: | | | | | 05/08>PEND | Phone: | [phone] | | | | | [place] | [phone] | | | | | | [place] | Fax: | | | | | | | [phone] | | +--------+--------+ + + + + Encounter Details +--------+ + + + + | Date | Type | Department | Care Team | Description | +--------+ + + + + | 05/13/ | Hospital | [facility] | Lexi Kuo W, | Right renal mass | | 2013 | Encounter | [facility] [address] | [address] | | | | | [place], | [address] [place] [place] | | | | | [place] [address] | [place] [address] | | | | | [phone] | [phone] | | | | | | | | +--------+ + + + [...] + + +---------+ + + | B Iopsgox-M-Lojbf | Take 1 mg by mouth | [...] + + + +---------+ + + | calcium acetate | Take 2 capsules by | 180 | 6 | 04/24/20 | | | (PHOSLO) 667 mg | mouth 3 times daily | capsule | | 14 | 4 | | capsule | (with meals). | | | | | + + + +---------+ + + | calcium carbonate | Take 2 tablets by | | 0 | | | | (TUMS) 500 mg | mouth nightly. | | | | 4 | | chewable tablet | | | | | | [...] + + + +---------+ + + | Iron Sucrose | 50 mg by IV Push | | 0 | | | | (VENOFER IV) | route Once a week. | | | | 7 | + + + +---------+ + + [...] | + +--------+ + + + | CT ABDOMEN PELVIS W | Routin | 05/13/2014 | Right renal mass | Results for this | | CONTRAST | e | 10:40 AM | | procedure are in the | | | | PDT | | results section. | + +--------+ + + + documented in this encounter Results CT Abdomen Pelvis w Contrast (05/13/2014 10:40 AM PDT) + + | Specimen | + + | | + + + + + | Narrative | Performed At | + + + | CT ABDOMEN PELVIS W CONTRAST. 05/13/2014 10:25 AM HISTORY: | MISCELANIOUS | | renal mass. Right renal mass. Patient on dialysis. | LAB | | COMPARISON: MRI abdomen 10/28/2012 TECHNIQUE: Axial images were | | | obtained through the abdomen and pelvis following the uneventful | | | intravenous administration of 100 mL Omnipaque 350 contrast. Oral | | | contrast was administered. Multiplanar reformatted images created. | | | FINDINGS: The lung bases are clear. Lower mediastinal structures | | | are unremarkable. There is a small hypoattenuating focus at the | | | lateral aspect of the left hepatic lobe measuring approximately 8mm , | | | too small to accurately characterize , most likely representing | | | small cyst versus hemangioma. The gallbladder, pancreas, spleen, and | | | bilateral adrenal glands are within normal limits. There is an | | | approximately 2.0 cm by 1.8 cm x 2.0 cm cystic exophytic lesion | | | projecting from the lateral aspect of the midpole of the right kidney, | | | with Hounsfield units compatible with a fluid-filled cyst, without | | | evidence of suspicious features or abnormal enhancement, series 2, | | | images 71-74. There is an approximately 10 mm cyst projecting from | | | the inferior pole of the right kidney, series 2, image 79. Right | | | kidney is otherwise unremarkable in appearance, without evidence of | | | obstructing stone or hydronephrosis. Minimal vascular calcification | | | is suggested within the kidney. The left kidney is unremarkable in | | | appearance, without evidence of stone or hydronephrosis. No | | | ureteral abnormalities. The stomach, duodenum, and small bowel are | | | within normal limits. The large bowel is within normal limits. The | | | ileocecal junction is within normal limits. The appendix is within | | | normal limits. There is no free intraperitoneal air or fluid. No | | | pathologically enlarged abdominal or pelvic lymph nodes. Abdominal | | | and pelvic vasculature is within normal limits The bladder is | | | relatively decompressed, with the appearance of diffuse mild bladder | | | wall thickening, which may be related to low volume of urine within | | | the bladder. There is central calcification within the prostate, | | | which is otherwise unremarkable in appearance. Seminal vesicles are | | | unremarkable. There is degenerative disc disease and spondylotic | | | change. No lytic or blastic lesions. Fat-containing inguinal hernias | | | seen bilaterally, noninflamed. IMPRESSION - Exophytic | | | lesion projecting from the midpole of the right kidney laterally has | | | imaging appearance of a cyst. Small exophytic cyst also seen | | | projecting from the inferior pole of the right kidney. No further | | | follow-up is required. Appearance of mild bladder wall thickening, | | | which may be secondary to relatively decompressed state of the | | | bladder. Bilateral fat-containing inguinal hernias, noninflamed. | | | Dictated and Signed by: Zak Willis MD Electronically signed: | | | 05/13/2014 5:53 PM | | + + + + + | Procedure Note | + + | Kana, Rad Results In - 05/13/2014 5:[address] ABDOMEN PELVIS W CONTRAST. 05/13/2014 | | 10:25 AM HISTORY: renal mass. Right renal mass. Patient on dialysis. COMPARISON: | | MRI abdomen 10/28/2012 TECHNIQUE: Axial images were obtained through the abdomen and | | pelvis followingthe uneventful intravenous administration of 100 mL Omnipaque 350 | | contrast. Oral contrast was administered. Multiplanar reformatted images | | created.FINDINGS: The lung bases are clear. Lower mediastinal structures are | | unremarkable.There is a small hypoattenuating focus at the lateral aspect of the left | | hepaticlobe measuring approximately 8mm , too small to accurately characterize , | | mostlikely representing small cyst versus hemangioma. The gallbladder, pancreas,spleen, | | and bilateral adrenal glands are within normal limits.There is an approximately 2.0 cm | | by 1.8 cm x 2.0 cm cystic exophytic lesionprojecting from the lateral aspect of the | | midpole of the right kidney, withHounsfield units compatible with a fluid-filled cyst, | | without evidence ofsuspicious features or abnormal enhancement, series 2, images | | 71-74.There is an approximately 10 mm cyst projecting from the inferior pole of theright | | kidney, series 2, image 79.Right kidney is otherwise unremarkable in appearance, | | without evidence ofobstructing stone or hydronephrosis. Minimal vascular calcification | | issuggested within the kidney.The left kidney is unremarkable in appearance, without | | evidence of stone orhydronephrosis.No ureteral abnormalities.The stomach, duodenum, and | | small bowel are within normal limits.The large bowel is within normal limits.The | | ileocecal junction is within normal limits.The appendix is within normal limits.There is | | no free intraperitoneal air or fluid.No pathologically enlarged abdominal or pelvic | | lymph nodes.Abdominal and pelvic vasculature is within normal limitsThe bladder is | | relatively decompressed, with the appearance of diffuse mildbladder wall thickening, | | which may be related to low volume of urine within thebladder.There is central | | calcification within the prostate, which is otherwiseunremarkable in appearance. | | Seminal vesicles are unremarkable.There is degenerative disc disease and spondylotic | | change. No lytic or blasticlesions.Fat-containing inguinal hernias seen bilaterally, | | noninflamed. IMPRESSION - Exophytic lesion projecting from the midpole of the right | | kidney laterally hasimaging appearance of a cyst. Small exophytic cyst also seen | | projecting fromthe inferior pole of the right kidney. No further follow-up is | | required.Appearance of mild bladder wall thickening, which may be secondary to | | relativelydecompressed state of the bladder.Bilateral fat-containing inguinal hernias, | | noninflamed.Dictated and Signed by: Zak Willis MD Electronically signed: 05/13/2014 | | 5:53 PM | |The ileocecal junction is within normal limits. | |The appendix is within normal limits. | | | |There is no free intraperitoneal air or fluid. | |No pathologically enlarged abdominal or pelvic lymph nodes. | |Abdominal and pelvic vasculature is within normal limits | | | |The bladder is relatively decompressed, with the appearance of diffuse mild | |bladder wall thickening, which may be related to low volume of urine within the | |bladder. | |There is central calcification within the prostate, which is otherwise | |unremarkable in appearance. Seminal vesicles are unremarkable. | |There is degenerative disc disease and spondylotic change. No lytic or blastic | |lesions. | |Fat-containing inguinal hernias seen bilaterally, noninflamed. | | | | | |IMPRESSION - | |Exophytic lesion projecting from the midpole of the right kidney laterally has | |imaging appearance of a cyst. Small exophytic cyst also seen projecting from | |the inferior pole of the right kidney. No further follow-up is required. | |Appearance of mild bladder wall thickening, which may be secondary to relatively | |decompressed state of the bladder. | |Bilateral fat-containing inguinal hernias, noninflamed. | | | |Dictated and Signed by: Zak Willis MD | | Electronically signed: 05/13/2014 5:53 PM | + + + +---------+ + + | Performing | Address | City/State/Zipcode | Phone Number | | Organization | | | | + +---------+ + + | [facility] | | | [phone] | + +---------+ + + | MISCELANIOUS LAB | | | [phone] | + +---------+ + + documented in this encounter Visit Diagnoses + + | Diagnosis | + + | Right renal mass Unspecified disorder of kidney and ureter | + + documented in this encounter Administered Medications + +--------+ +---------+------+------+ | Medication Order | MAR | Action | Dose | Rate | Site | | | Action | Date | | | | + +--------+ +---------+------+------+ | iohexol (OMNIPAQUE 350) 350 | Given | 05/13/20 | 100 mLs | | | | mg/mL injection 100 mL 100 mL, | | 14 10:35 | | | | | Intravenous, ONCE PRN, Other, | | AM PDT | | | | | Starting 05/13/14 at 1025, For | | | | | | | 1 dose, Cat Scanner | | | | | | + +--------+ +---------+------+------+ +---+---+ | | | +---+---+ documented in this encounter"
--- OUTSIDE RECORDS SUMMARY | ~2020-03-04 | XMS | Encounter Summary ---
Demographics + + + | Address | [address] | | | [place] [address] | + + + | Home Phone | | + + + | Preferred Language | Unknown | + + + | Marital Status | | + + + | Christian Affiliation | 1041 | + + + | Race | Unknown | + + + | Ethnic Group | Unknown | + + + Author + + + | Author | [facility] | | | and [place] | + + + | Organization | [facility] | | | and [...] Team Providers + +------+ + | Care Rigger Helper Name | Role | Phone | + +------+ + PCP | Unavailable | + +------+ + Encounter Details +--------+ + + + + | Date | Type | Department | Care Team | Description | +--------+ + + + + | 04/30/ | Documentati | [facility] [place] | Lexi Kuo W, | | | 2017 | on | NEPHROLOGY [address] | [address] | | | | | [address] | [place] [address] [place] | | | | | [place] | [place] [address] | | | | | [address] | [phone] | | | | | [phone] | | | +--------+ + + + [...] this encounter Progress Notes Dedra Camara - 04/30/2017 9:54 AM PDTManually faxed fistulogram to [facility] [place] on 04/30/17. Dedra Whitman - 04/30/2017 9:54 AM PDTManually faxed fistulogram, arterio venous from Dontae Cornejo MD. Dos: 04/25/17.Electronically signed by Dedra mota t 04/30/2017 9:56 AM PDTdocumented in this encounter Plan of Treatment Not on filedocumented as of this encounter Visit Diagnoses Not on filedocumented in this encounter"
--- OUTSIDE RECORDS SUMMARY | ~2020-03-04 | XMS | Encounter Summary ---
Demographics + + + | Address | [address] | | | [place] [address] | + + + | Home Phone | | + + + | Preferred Language | Unknown | + + + | Marital Status | | + + + | Taoism Affiliation | 1041 | + + + | Race | Unknown | + + + | Ethnic Group | Unknown | + + + Author + + + | Author | [facility] | | | and [place] | + + + | Organization | [facility] | | | and [...] Team Providers + +------+ + | Care Test Technician Name | Role | Phone | + [...] | NEPHROLOGY [address] | [address] | | | | | [address] | [place] [address] [place] | | | | | [place] | [place] [address] | | | | | [address] | [phone] | | | | | [phone] | | | +--------+ + + + [...] 04/30/2017 9:54 AM PDTManually faxed fistulogram to [facility] [place] on 04/30/17. Dedra Whitman - 04/30/2017 9:54 AM PDTManually faxed fistulogram, arterio venous from Dontae Cornejo MD. Dos: 04/25/17.Electronically signed by Dedra mtoa t 04/30/2017 9:56 AM PDTdocumented in this encounter Plan of Treatment Not on filedocumented as of this encounter Visit Diagnoses Not on filedocumented in this encounter"
--- OUTSIDE RECORDS SUMMARY | ~2020-03-04 | XMS | Encounter Summary ---
Demographics + + + | Address | [address] | | | [place] [address] | + + + | Home Phone | | + + + | Preferred Language | Unknown | + + + | Marital Status | | + + + | Synagogue Affiliation | 1041 | + + + | Race | Unknown | + + + | Ethnic Group | Unknown | + + + Author + + + | Author | [facility] | | | and [place] | + + + | Organization | [facility] | | | and [...] Team Providers + +------+ + | Care Food Demonstrator Name | Role | Phone | + [...] [address] | [address], [place] | V ([facility]) (Primary | | | | [place], [place] | [address] [place] | Dx); Unspecified | | | | [address] | [address] | hypertensive kidney | | | | [phone] | | disease with chronic | | [...] for nephrology appt on 02/24/13 faxed to [facility]. documented in t his encounter Plan of [...]
--- OUTSIDE RECORDS SUMMARY | ~2020-03-04 | XMS | Encounter Summary ---
Demographics + + + | Address | [address] | | | [place] [address] | + + + | Home Phone | | + + + | Preferred Language | Unknown | + + + | Marital Status | | + + + | Holiness Affiliation | 1041 | + + + | Race | Unknown | + + + | Ethnic Group | Unknown | + + + Author + + + | Author | [facility] | | | and [place] | + + + | Organization | [facility] | | | and [...] Team Providers + +------+ + | Care Vice President Risk Management Name | Role | Phone | + +------+ + PCP | Unavailable | + +------+ + Reason for Visit Service/Procedure (Urgent) +--------+--------+ + + + + | Status | Reason | Specialty | Diagnoses / | Referred By | Referred To | | | | | Procedures | Contact | Contact | +--------+--------+ + + + + | Closed | | Nephrology | Diagnoses | Camille, | Ernesto, | | | | | CKD | MD Frances | Uche Pena DO | | | | | (chronic | [address] | [address] | | | | | kidney | [address] [place] | [place], [place] | | | | | disease) | [place] | [address] [place] | | | | | stage 5, GFR | [address] | [place] | | | | | less than | Phone: | [phone] Phone: | | | | | 15 ml/min | [phone] | [phone] | | | | | ([facility]) | Fax: | Fax: | | | | | Procedures | [phone] | [phone] | | | | | CATHETER | | | | | | | REMOVAL | | | | | | | Procedure | | | +--------+--------+ + + + + Encounter Details +--------+ + + + + | Date | Type | Department | Care Team | Description | +--------+ + + + + | 11/27/ | Procedure | [facility] [place] | Uche Orozco | End stage renal | | 2013 | visit | NEPHROLOGY [address] | M, DO [address] | disease (Primary | | | | [address] | [place], [place] [address] | Dx); Unspecified | | | | [place] | [place] | hypertensive kidney | | | | [address] | [address] | disease with chronic | | | | [phone] | | kidney disease | | | | | | stage I through | | | | | | stage IV, or | | | | | | unspecified; Type II | | | | | | or unspecified type | | | | | | diabetes mellitus | | | | | | with renal | | | | | | manifestations, | | | | | | uncontrolled | +--------+ + + + + Social [...] documented as of this encounter Progress Notes Uche Orozco DO - 11/27/2013 4:45 PM PSTPROCEDURE NOTE: Proposed Procedures: 1. right IJ Equistream catheter removal. Actual Procedures: 1. Same. Postoperative Diagnosis: 1. functioning AVF. Surgeons: 1. Stroemel Anesthesia: 1% Xylocaine + 0.5% Marcaine. Estimated Blood Loss: Minimal. Drains and Tubes: None. Findings, Complications, and Other Information: Informed consent was obtained from the pat ient. His AVF works well and the Equistream is no longer needed. A timeout was taken by the patient and the team. The patient was prepped and draped in a sterile fashion with chlorhe xidine. The tunnel of the catheter was then infiltrated 1% Xylocaine + 0.5% Marcaine. The tunnel was then opened approximately 1 cm with the scissors to better expose the cuff. The n, utilizing blunt dissection, and some limited sharp dissection at the very end, the cuff a nd catheter were dissected free and the catheter was removed intact. No purulent material was ever encountered. The tunnel was then irrigated with a copious qu antity of sterile saline. Hemostasis was adequate. Sterile 4 x 4's, bacitracin, and six-in ch Medipore tape were applied to the site. There were no complications. He tolerated the pr ocedure well. He was instructed to remove the dressing in 24 hours. He was instructed not to shower for 24 hours. He was instructed to call if any problems. He was discharged to ho me in stable condition. CC: Teo Guidry, [place] Artem Angelo MD, FACS documented in thi s encounter Plan of Treatment Not on filedocumented as of this encounter Visit Diagnoses + + | Diagnosis | + + | End stage renal disease - Primary | + + | Unspecified hypertensive kidney disease with chronic kidney disease stage I through | | stage IV, or unspecified | + + | Type II or unspecified type diabetes mellitus with renal manifestations, uncontrolled | + + documented in this encounter"
--- OUTSIDE RECORDS SUMMARY | ~2020-03-04 | XMS | Encounter Summary ---
Demographics + + + | Address | [address] | | | [place] [address] | + + + | Home Phone | | + + + | Preferred Language | Unknown | + + + | Marital Status | | + + + | Latter-Day Affiliation | 1041 | + + + | Race | Unknown | + + + | Ethnic Group | Unknown | + + + Author + + + | Author | [facility] | | | and [place] | + + + | Organization | [facility] | | | and [place] [...] Team Providers + +------+ + | Care Driver Trainer Name | Role | Phone | + +------+ + PCP | Unavailable | + +------+ + Encounter Details +--------+ + + + + | Date | Type | Department | Care Team | Description | +--------+ + + + + | 09/22/ | Documentati | [facility] | Uche Orozco | | | 2012 | on | NEPHROLOGY [address] | M, DO [address] | | | | | [address] | [place] | | | | | [place] | [place] | | | | | [id number] | [id number] | | | | | [phone] | | | +--------+ + + + [...] + + + | Blood Pressure | 144/91 | 09/22/2013 3:03 PM | | | | | PST | | + + + + + | Pulse | - | - | | + + + + + | Temperature | 36.2 C (97.1 F) | 09/22/2013 3:03 PM | | | | | PST | | + + + + + | Respiratory Rate | - | - | | + + + + + | Oxygen Saturation | - | - | | + + + + + | Inhaled Oxygen | - | - | | | Concentration | | | | + + + + + | Weight | - | - | | + + + + + | Height | - | - | | + + + + + | Body Mass Index | - | - | | + + + + + documented in this encounter Progress Notes Uche Orozco DO - 09/22/2013 3:03 PM PST Subjective: [facility] Patient ID: CELSO CARO is a 53 y.o. male. 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, [place]. He also has T2DM, requiring insulin, anemia secondary to CKD, hyperlipidemia, Hepatitis C, m orbid obesity and a question of a right renal mass on prior US. His adequacy is low normal but is transitioning to 2 needles in his left arm AVF. Outpatient Prescriptions Marked as Taking for the 09/22/13 encounter (Documentation) with Jean Orozco DO Medication Sig Dispense Refill aspirin 81 mg EC tablet Take 81 mg by mouth Daily. atorvaSTATin (LIPITOR) 20 mg tablet Take 1 tablet by mouth Daily. 30 tablet 5 B Oiwbfhw-I-Bjcjt Acid (OLEG-TEQUILA RX) 1 MG TABS Take 1 mg by mouth Daily. 30 each 11 cholecalciferol (VITAMIN D-3) 2000 UNITS TABS Take 1 tablet by mouth Daily. diltiazem (DILACOR XR) 180 mg 24 hr capsule Take 180 mg by mouth Daily. doxercalciferol (HECTOROL) 4 MCG/2ML injection Inject 7 mcg into the vein Three times a week. epoetin padilla (EPOGEN, PROCRIT) 10,000 units/mL injection Inject under the skin. --On h old furosemide (LASIX) 40 mg tablet Take 40 [...] sevelamer carbonate (RENVELA) 800 mg tablet Take 1 tablet by mouth 3 times daily (with meals). 90 tablet 5 sitaGLIPtin (JANUVIA) 100 mg tablet Take 25 mg by mouth Daily. Allergies Allergen Reactions Amlodipine Besylate Unknown Metformin Diarrhea Review of Systems Objective: Blood pressure 144/91, temperature 36.2 C (97.1 F). EDW 129 kg Physical Exam Heart: Regular rate and rhythm with no S3, S4, murmur or rub. Lungs: CTA bilaterally. No rales or wheezes. Abdomen: Soft, flat, nontender, normoactive bowel sounds. Extremities: No clubbing, cyanosis, or edema. LAB: BUN 46, Cr 6.47, K+ 4.0, HCO3 23, Ca++ 8.2, PO4 5.1, PTH 641, Alb 3.4, Hb 10.8, eKT/V = 1.06. Assessment: 1. ESRD--his KT/V is suboptimal, but his AVF is currently being transitioned to 2 needles. This should improve adequacy with time. 2. Hypertension--good control from review of tx logs. 3. Anemia--will continue the EPO at current dose and recheck the Fe stores next quarter. 4. SHPTH--PTH is suboptimal. He is on a moderately high dose of Hectorol, therefore, will add Sensipar 30 mg, daily. 5. Nutrition--Salb should improve as his adequacy improves. 6. Type 2 DM--will track the Hbaic Q 3 months. 7. Hepatitis C--asymptomatic to date. 8. Hyperlipidemia--will recheck the lipid profile quarterly. 9. Transplantation--he has not thought a great deal about this, but he is interested in ex ploring it further. 10. Right renal mass, MRI, 10/2012--suspicious for complex, "proteinaceous cysts, " on MRI at that time. Plan: 1. Will add Sensipar to keep PTH < 300 pg/ml. 2. Will work on increasing needles size over time, which should help adequacy. 3. Will recheck him in 2 weeks. CC: Artem Angelo MD [facility] documented in thi s encounter Plan of Treatment Not on filedocumented as of this encounter Visit Diagnoses + + | Diagnosis | + + | End stage renal disease (HCC) - Primary End stage renal disease | + + | Type II or unspecified type diabetes mellitus with renal manifestations, | | uncontrolled(250.42) ([facility]) Type II or unspecified type diabetes mellitus with renal | | manifestations, uncontrolled | + + | Secondary hyperparathyroidism (of renal origin) | + + documented in this encounter
--- OUTSIDE RECORDS SUMMARY | ~2020-03-04 | XMS | Encounter Summary ---
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 | Role | Phone | + +------+ + | Marco A Carrasco | PCP | | + +------+ + Reason for Visit Auth/Cert +--------+--------+ + + + + | Status | Reason | Specialty | Diagnoses / | Referred By | Referred To | | | | | Procedures | Contact | Contact | +--------+--------+ + + + + | | | | Diagnoses | | | | | | | sepsis | | | +--------+--------+ + + + + Encounter Details +--------+ + + + + | Date | Type | Department | Care Team | Description | +--------+ + + + + | 09/22/ | Hospital | [facility] | Kori Ross MD | Severe sepsis ([facility]); | | 2019 - | Encounter | [facility] | [address] | Atrial fibrillation | | | | [address] [place] | [place], [place] | with RVR ([facility]); End | | 09/26/ | | [place] [address] | [id number] | stage renal disease | | 2019 | | [phone] | | ([facility]); Diabetic | | | | | Asim Lao MD | ulcer of left | | | | | [address] | midfoot associated | | | | | [place], [place] | with type 2 diabetes | | | | | [id number] | mellitus, with | | | | | | other ulcer severity | | | | | | ([facility]); Sepsis, due | | | | | | to unspecified | | | | | | organism, | | | | | | unspecified whether | | | | | | acute organ | | | | | | dysfunction present | | | | | | ([facility]); Pneumonia of | | | | | | left lower lobe due | | | | | | to infectious | | | | | | organism; Volume | | | | | | depletion, | | | | | | gastrointestinal | | | | | | loss; Hypotension | | | | | | due to hypovolemia | +--------+ + + + + Social [...] + + + | Blood Pressure | 106/69 | 09/26/2019 7:33 AM | | | | | PST | | + + + + + | Pulse | 91 | 09/26/2019 7:33 AM | | | | | PST | | + + + + + | Temperature | 36.1 C (97 F) | 09/26/2019 7:33 AM | | | | | PST | | + + + + + | Respiratory Rate | 20 | 09/26/2019 7:33 AM | | | | | PST | | + + + + + | Oxygen Saturation | 98% | 09/26/2019 7:33 AM | | | | | PST | | + + + + + | Inhaled Oxygen | - | - | | | Concentration | | | | + + + + + | Weight | 126.3 kg (278 lb 7.1 | 09/26/2019 5:00 AM | | | | oz) | PST | | + + + + + | Height | 185.4 cm (6' 1") | 09/22/2019 11:22 PM | | | | | PST | | + + + + + | Body Mass Index | 36.74 | 09/22/2019 11:22 PM | | | | | PST | | + + + + + documented in this encounter Discharge Summaries Clem Terrell DO - 09/26/2019 9:45 AM PST [place], [place] HOSPITALIST DISCHARGE SUMMARY Pt. Name/Age/: Celso Caro 59 y.o. 1960 Date of Admission: 09/22/2019 Date of Discharge: 09/26/2019 Admitting Physician: Kori Ross MD Primary Care Provider: CARINE Mast Discharging Physician: Clem Terrell DO DISCHARGE DIAGNOSES: Active Hospital Problems Diagnosis Sepsis Atrial fibrillation with RVR Pneumonia of left lower lobe due to infectious organism Resolved Hospital Problems No resolved problems to display. DISCHARGE MEDICATIONS: Discharge Medications New Medications Details cefdinir 300 mg capsule Take 1 capsule by mouth every 48 hours. aka: OMNICEF Changed Medications Details sucroferric oxyhydroxide 500 mg chewable tablet Take 1 tablet by mouth 4 times daily (before meals and nightly). What changed: when to take this additional instructions aka: VELPHORO Unchanged Medications Details ANTI-DIARRHEAL 2 MG tablet Generic drug: loperamide Take 2 mg by mouth 4 times daily as needed for Diarrhea. apixaban 5 mg tablet Take 2.5 mg by mouth 2 times daily. aka: ELIQUIS cholecalciferol 125 mcg (5,000 units) capsule Take 5,000 Units by mouth Daily. aka: VITAMIN D-3 cinacalcet 30 mg tablet Take 30 mg by mouth Three times a week. aka: SENSIPAR epoetin padilla 10,000 units/mL injection Inject 1,000 Units into the vein Three times a week. aka: EPOGEN, PROCRIT HECTOROL 2 mcg/mL injection Generic drug: doxercalciferol Inject 3 mcg into the vein Three times a week. insulin glargine 100 units/mL injection (vial) Inject 25 Units under the skin 2 times daily. aka: LANTUS metoprolol succinate 100 mg ER tablet Take 0.5 tablets by mouth Daily. aka: TOPROL-XL omeprazole 20 mg capsule Take 1 capsule by mouth Daily. aka: priLOSEC OLEG-TEQUILA RX 1 MG Tabs tablet Take 1 mg by mouth Daily. rosuvastatin 20 mg tablet Take 20 mg by mouth Daily. aka: CRESTOR Discontinued Medications furosemide 80 mg tablet aka: KALEYIX HOSPITAL COURSE: Please refer to the H&P for full details and the most recent rounding rounding (progress) n ote. In short 59yoM w/ hx of ESRD on HD, a flutter, PAD, IDDM, s/p L 2nd and 3rd toe OM s/p amputation, c hronic R foot ulcer, who presented to [facility] not feeling well for several da ys. He was found to have sepsis due to LLL PNA. He was started vancomycin and zosyn then swi tched to on azithromycin and ceftriazone.His symptoms improved quickly. He did developed luke rrhea but c. Diff was negative. It improved after PPI was held. See below for details. # Sepsis # LLL pneumonia Improving. Procal is elevated. Resp status is stable. On presentation he was tachycardic, leukocytosis, and hypotensive on presentation. BP responded to IVF boluses. CXR with LLL inf iltrate - Stop vancomycin and zosyn - cont on omnicef for two more doses - completed azithromycin - f/u with PCP # Afib w/ RVR HR is improve. He was given IVF and dilt at [facility]. BP improved - cont metoprolol - Continue eliquis # Diarrhea Improved. C. Diff negative. Likely from abx. - loperamide prn - hold PPI # Chronic sCHF w/ EF 40-45% 2017 No evidence of HF at this time -Monitor closely # ESRD on HD MWF - Missed HD yesterday due to illness. K 4.5 this morning - f/u Nephrology - Continue renavite and sensipar - dialysis today at his spot # IDDM Good BG control -resume lantus # Diabetic right foot ulcer Per patient and , looks better. Being managed by Dr. Sahni. - cont to monitor - f/u with podiatry # GERD -hold PPI # HLD -continue statin. Most recent weight: Input and output for last 24hrs: Wt Readings from Last 1 Encounters: 09/26/19 126.3 kg (278 lb 7.1 oz) I/O last 24 Hours: In: 620 [P.O.:620] Out: 301 [Urine:300; Stool:1] Vitals Ranges: Temp: [35.7 C (96.3 F)-36.1 C (97 F)] 36.1 C (97 F) Pulse: [91-105] 91 Resp: [20] 20 BP: (106-146)/(69-89) 106/69 Vitals: Temp: 36.1 C (97 F) BP: 106/69 Pulse: 91 Resp: 20 SpO2: 98 % SpO2 98 % on room air at flow rate L/min PHYSICAL EXAM: Patient seen and examined by me on discharge day Unchanged from yesterday PROCEDURES AND CONSULTS: Procedures none Consults nephro PENDING RESULTS: none DISPOSITION AND DISCHARGE INSTRUCTIONS: Follow-up Information Sandro Cornejo MD. Go on 10/03/2019. Specialty: Family Medicine Why: Hospital follow up appointment at 11AM, check in at 10:45AM. Dr Cornejo is your new ass igned doctor at [facility] Contact information: [id number] [place] [address] Condition: Patient being discharged with condition improved Diet:DM and renal Greater than 30 minutes were spent on discharge and coordination of post-hospital care. Electronically signed by: Clem Terrell DO, 09/26/2019 9:45 AM [facility] Portions of this chart may have been created with [employer] voice recognition software. Occasi onal wrong-word or sound-alike substitutions may have occurred due to the inherent hernandez itations of voice recognition software. Please read the chart carefully and recognize, using context, where these substitutions have occurred documented in this enco unter Discharge Instructions Instructions Clem Terrell DO - 09/26/2019Please finish the antibiotics Please call your doctor if you experience a rash or severe diarrhea and stop the medication Take the antibiotic after dialysis today Hold the furosemide for now. Once your blood pressure is improve then you can resume it. documented in this encounter Medications at Time of Discharge + + + +---------+ + + | Medication | Sig | Dispensed | Refills | Start | End Date | | | | | | Date | | + + + +---------+ + + | apixaban (ELIQUIS) | Take 2.5 mg by mouth | | 0 | | | | 5 mg tablet | 2 times daily. | | | | | + + + +---------+ + + | B Uiaoxpd-T-Ozxyl | Take 1 mg by mouth | [...] +---------+ + + | cinacalcet | Take 30 mg by mouth | | 0 | | | | (SENSIPAR) 30 mg | Three times a week. | | | | | | tablet | | | | | | + + + +---------+ + + | doxercalciferol | Inject 10 mcg into | | 0 | | | | (HECTOROL) 2 mcg/mL | the vein Three times | | | | | | injection | a week. | | | | | + + + +---------+ + + | loperamide | Take 2 mg by mouth 4 | | 0 | | | | (ANTI-DIARRHEAL) 2 | times daily as | | | | | | MG tablet | needed for Diarrhea. | | | | | + + + +---------+ + + | omeprazole | Take 1 capsule by | 30 | 0 | 06/02/20 | | | (PRILOSEC) 20 mg | mouth Daily. | capsule | | 19 | | | capsule | | | | [...] + + + +---------+ + + | cefdinir (OMNICEF) | Take 1 capsule by | 2 | 0 | 09/26/20 | | | 300 mg capsule | mouth every 48 | capsule | | 19 | 0 | | | hours. | | | | | + + [...] as of this encounter Progress Notes Uche Orozco, DO - 09/25/2019 9:12 PM PST [facility] [address] [place] [address] PROGRESS NOTE Pt. Name/Age/: Celso Sutton Case 59 y.o. 1960 Med. Record Number: [id number] Date of admission: 09/22/2019 NEPHROLOGY HPI - Pt seen at 1330. HD today was deferred as pt unable to sit still due to frequent, wa waldemar diarrhea, Q 5 minutes. No abdominal cramps. He has absolutely no sputum production, and on pulmonary infiltrates, therefore, feel bronchopneumonia is less likely? HR is better. Lab Results Component Value Date POCGLU 152 (H) 09/25/2019 POCGLU 193 (H) 09/25/2019 POCGLU 130 (H) 09/25/2019 POCGLU 140 (H) 09/24/2019 EXAM: BP 138/89 | Pulse 105 | Temp 36.1 C (97 F) (Oral) | Resp 20 | Ht 1.854 m ( 6' 1") | Wt 126 kg (277 lb 12.5 oz) | SpO2 100% | BMI 36.65 kg/m Tmax 36.7 (Wt. increased 0.5 kg) Intake/Output Summary (Last 24 hours) at 09/25/20192111 Last data filed at 09/25/2019 1807 Gross per 24 hour Intake 320 ml Output 1 ml Net 319 ml Heart: irregularly, irregular with grade 1/6 MAXIMO at LSB, no rub. Lungs: CTA bilaterally. Abdomen: Soft, obese, nontender, normoactive bowel sounds. Extremities: no edema, clubbing, or cyanosis, (+) AVF at Left arm with strong thrill. SpO2: 100 % on room air LAB: Recent Labs 09/25/19 0507 09/23/19 1033 NA 135* < > -- K 4.7 < > -- CL 98 < > -- CO2 26 < > -- BUN 52* < > -- CREA 9.18* < > -- GFRNONAA 6* < > -- GLU 144* < > -- CALCIUM 8.3* < > -- PHOS 5.9* < > -- MG -- -- 1.8 < > = values in this interval not displayed. Recent Labs 09/25/19 0507 09/24/19 0332 WBC 8.4 10.2 HGB 11.7* 10.6* HCT 36.4* 32.9* PLT 206 188 MCV 95.5 97.1 NEUPCT -- 75.3 LYMPCT -- 14.2* EOSPCT -- 1.5 Clostridioides difficile NAAT Reflex Order: [id number] - Part of Panel Order [id number] Status: Final result Visible to patient: No (Not Released) Next appt: 09/29/2019 at 09:15 AM in Nephrology (Uche Orozco, ) Specimen Information: Stool Ref Range & Units 1d ago C. difficile, Interp Negative Negative Comment: No Toxigenic C. difficile detected. Consider other causes of Diarrhea. Repeat test ing should not be performed within 7 days. C. difficile, NAAT Negative Resulting Agency [facility] Specimen Collected: 09/24/19 15:34 IMPRESSION 1. ESRD 2 to T2DM-- on thrice weekly HD. 2. Fever-- suspect that the fever was 2 to a viral gastroenteritis? Mainstay of Rx is li keila supportive. 3. rapid AF-- under better control. 4. Type 2 DM-- stable. 5. Hypotension-- suspect 2 to ECF volume depletion and recent rapid AF, now better. 6. Anemia 2 to CKD-- on EPO. PLAN 1. Defer DC until diarrhea better. 2. Unable to physically do HD today, as he is at risk for AVF needle dislodgement, and jak ble to physically tolerate his session due to the brisk diarrhea. Will try again in AM. 3. Agree with Imodium , clear diet. [facility] Clem Gann DO - 09/25/2019 7:23 AM PST [facility] [place] [facility]ITAL[facility] PROGRESS NOTE Patient: Celso Caro : 1960: Age: 59 y.o. MedRec: [id number] Admission date: 09/22/2019 Hospital day # : 3 Physician author: Clem Terrell DO Today: 09/25/2019 Subjective CC Numerous diarrhea. No abdominal pain or n/v. Associated with weakness. He denied chest p ain, SOB, light headedness, and dizziness. ROS See above Overnight Event: none Assessment and Hospital Course Active Hospital Problems Diagnosis Sepsis Atrial fibrillation with RVR Pneumonia of left lower lobe due to infectious organism Resolved Hospital Problems No resolved problems to display. 59yoM w/ hx of ESRD on HD, a flutter, PAD, IDDM, s/p L 2nd and 3rd toe OM s/p amputation, c hronic R foot ulcer, who presented to [facility] not feeling well for several da ys. Plan # Sepsis # LLL pneumonia Stable. Procal is elevated. Resp status is stable. On presentation he was tachycardic, jane kocytosis, and hypotensive on presentation. BP responded to IVF boluses. CXR with LLL infilt rate - Stop vancomycin and zosyn - cont on ceftriazone and azithromycin for CAP - stop IVF - continue supportive care # Afib w/ RVR HR is fast but cont to improve. He was given IVF and dilt at [facility]. BP improved - cont metoprolol at lower dose - Continue eliquis - Continue telemetry monitoring # Diarrhea Numerous. C. Diff negative. Likely from abx. - loperamide prn - holding PPI # Chronic sCHF w/ EF 40-45% 2017 No evidence of HF at this time -Monitor closely # ESRD on HD MWF - Missed HD yesterday due to illness. K 4.5 this morning - Nephrology consulted for HD - Continue renavite and sensipar # IDDM Good BG control -holding lantus since he is not eating much - SSI for now. # Diabetic right foot ulcer Per patient and , looks better. Being managed by Dr. Sahni. - cont to monitor - wound management # GERD -hold PPI # HLD -continue statin. Dispo: home in 1-2 days Allergies: Allergies Allergen Reactions Amlodipine Besylate Unknown Fenofibrate Acidosis Metformin Diarrhea Current Medications: Current Facility-Administered Medications Medication Dose Route Frequency Provider Last Rate Last Dose acetaminophen (TYLENOL) tablet 650 mg 650 mg Oral Q4H PRN Kori Ross MD albumin 25% IVPB 12.5 g 12.5 g Intravenous PRN Uche Orozco DO apixaban (ELIQUIS) tablet 2.5 mg 2.5 mg Oral BID Kori Ross MD 2.5 mg at 9 2123 azithromycin (ZITHROMAX) 500 mg in sodium chloride 0.9% 250 mL IVPB 500 mg Intravenous Daily Clem Terrell DO 255 mL/hr at 09/24/19 0942 500 mg at 09/24/19 0942 bisacodyl (DULCOLAX) suppository 10 mg 10 mg Rectal Daily PRN Kori Ross MD calcium carbonate (TUMS) chewable tablet 1,000 mg 1,000 mg Oral Q4H PRN Kori Ross MD cefTRIAXone (ROCEPHIN) 1 g in sodium chloride 0.9% 50 mL IVPB 1 g Intravenous Daily Terrell, DO 100 mL/hr at 09/24/19 0923 1 g at 09/24/19 0923 cholecalciferol (VITAMIN D-3) tablet 5,000 Units 5,000 Units Oral Daily Kori Ross MD 5,000 Units at 09/24/19 0922 cinacalcet (SENSIPAR) tablet 30 mg 30 mg Oral Once per day on Sun Kori youngblood MD 30 mg at 09/24/19 0910 dextrose 50% injection 12.5-25 g 12.5-25 g Intravenous PRN Kori Ross MD And dextrose 10% (D10W) infusion Intravenous Continuous PRN Kori Ross MD dilTIAZem (CARDIZEM) 1 mg/mL in sodium chloride 0.9% 125 mL infusion 0-15 mg/hr Intrav enous Titrated Adal Rodriguez MD Stopped at 09/23/19 223 docusate sodium (COLACE) capsule 100 mg 100 mg Oral BID PRN Kori Ross MD doxercalciferol (HECTOROL) capsule 2.5 mcg 2.5 mcg Oral Once per day on Sun Shaji Orozco, DO 2.5 mcg at 09/24/19 0922 heparin 1,000 units/mL injection 1,500-6,000 Units 1,500-6,000 Units Intracatheter PRN Uche Orozco DO insulin lispro (humaLOG KWIKPEN) injection (pen) 0-6 Units 0-6 Units Subcutaneous 4x D aily WC and HS Kori Ross MD 1 Units at 09/24/19 1722 loperamide (IMODIUM) capsule 2 mg 2 mg Oral Q3H PRN Daryl Chamorro MD 2 mg at 0715 mannitol 25% injection 12.5 g 12.5 g Intravenous PRN Uche Orozco DO melatonin tablet 3 mg 3 mg Oral Nightly PRN Kori Ross MD metoprolol tartrate (LOPRESSOR) tablet 12.5 mg 12.5 mg Oral TID Clemmg Terrell DO 12. 5 mg at 12/18/19 2124 norepinephrine in saline (LEVOPHED) 16 mcg/mL infusion 0-30 mcg/min Intravenous Titrat ed Clem Terrell DO Stopped at 09/23/19 1631 ondansetron (ZOFRAN) injection 4 mg 4 mg Intravenous Q6H PRN Kori Ross MD pantoprazole (PROTONIX) DR tablet 40 mg 40 mg Oral QAM AC Kori Ross MD 40 mg at 09/25/19 0715 polyethylene glycol (MIRALAX) powder 17 g 17 g Oral Daily PRN Kori Ross MD renal multivitamin (DIALYVITE, VOL-CARE) tablet 1 tablet 1 tablet Oral Daily Kori teresa MD 1 tablet at 09/24/19 0909 rosuvastatin (CRESTOR) tablet 20 mg 20 mg Oral Daily Kori Ross MD 20 mg at 09/07 05/26 0910 saccharomyces boulardii (FLORASTOR) capsule 250 mg 250 mg Oral BID Daryl Chamorro MD 250 mg at 09/24/19 2214 senna (SENOKOT) tablet 8.6 mg 8.6 mg Oral BID PRN Kori Ross MD sodium chloride 0.9% (NS) infusion 250 mL 250 mL Intravenous Q30 Min PRN Uche max DO Current Infusions: dextrose 10% diltiazem (CARDIZEM) infusion Stopped (09/23/192230) norepinephrine Stopped (09/23/19 163) Objective Data Point of care glucose Recent Labs Lab 09/25/19 0716 09/24/19 2126 09/24/19 1705 09/24/19 1051 09/24/19 0654 09/23/19 2027 POCGLU 130* 140* 157* 189* 113* 158* Labs last 24 hours Recent Results (from the past 24 hour(s)) POC Glucose Collection Time: 09/24/19 10:51 AM Result Value Ref Range Glucose, POC 189 (H) 70 - 109 mg/dL Clostridioides difficile NAAT Reflex Collection Time: 09/24/19 3:34 PM Result Value Ref Range C. difficile, Interp Negative Negative C. difficile, NAAT Negative POC Glucose Collection Time: 09/24/19 5:05 PM Result Value Ref Range Glucose, POC 157 (H) 70 - 109 mg/dL POC Glucose Collection Time: 09/24/19 9:26 PM Result Value Ref Range Glucose, POC 140 (H) 70 - 109 mg/dL Renal Function Panel Collection Time: 09/25/19 5:07 AM Result Value Ref Range Na 135 (L) 136 - 145 mmol/L K 4.7 3.4 - 5.1 mmol/L Cl 98 98 - 107 mmol/L CO2 26 20 - 31 mmol/L Anion Gap 11 3 - 16 mmol/L Glucose 144 (H) 60 - 106 mg/dL BUN 52 (H) 9 - 23 mg/dL Creatinine 9.18 (HH) 0.70 - 1.30 mg/dL eGFR if not 6 (L) >=60 mL/min/1.73m2 Calcium 8.3 (L) 8.7 - 10.4 mg/dL Albumin 3.8 3.2 - 4.8 g/dL Phosphorus 5.9 (H) 2.4 - 5.1 mg/dL BUN/Creatinine Ratio 5.7 CBC no Differential Collection Time: 09/25/19 5:07 AM Result Value Ref Range WBC 8.4 4.0 - 11.0 K/uL RBC 3.81 (L) 4.30 - 5.70 M/uL Hemoglobin 11.7 (L) 13.5 - 18.0 g/dL Hematocrit 36.4 (L) 40.0 - 51.0 % MCV 95.5 83.0 - 101.0 fL MCH 30.7 28.0 - 35.0 pg MCHC 32.1 32.0 - 36.0 g/dL RDW-CV 14.6 <15.0 % RDW-SD 50.6 (H) 35.1 - 46.3 fL Platelet Count 206 140 - 440 K/uL MPV 10.0 6.5 - 12.4 fL % nRBC 0 0 - 2 per 100 WBCs Absolute nRBC 0.00 0.00 - 0.01 K/uL Procalcitonin Collection Time: 09/25/19 5:07 AM Result Value Ref Range Procalcitonin 12.90 (HH) <=0.50 ng/mL Comment POC Glucose Collection Time: 09/25/19 7:16 AM Result Value Ref Range Glucose, POC 130 (H) 70 - 109 mg/dL Micro results Microbiology Results (72 hrs) Procedure Component Value Units Date/Time Clostridioides difficle NAAT reflex to Tox Ag [[id number]] Collected: 09/24/19 1534 Order Status: Completed Lab Status: Final result Updated: 09/24/191816 Specimen: Stool Narrative: The following orders were created for panel order Clostridioides difficle NAAT reflex to T ox Ag. Procedure Abnormality Status --------- ------ Clostridioides difficile...[[id number]] Final result Please view results for these tests on the individual orders. Clostridioides difficile NAAT Reflex [[id number]] Collected: 09/24/19 1534 Order Status: Completed Lab Status: Final result Updated: 09/24/191816 Specimen: Stool C. difficile, Interp Negative Comment: No Toxigenic C. difficile detected. Consider other causes of Diarrhea. Repeat te sting should not be performed within 7 days. C. difficile, NAAT Negative Culture, Blood [[id number]] Collected: 09/23/19 0008 Order Status: Completed Lab Status: Preliminary result Updated: 09/23/19 1211 Specimen: Peripheral Blood Culture No growth: Monitored continually by instrument for 5 days Influenza A and B RNA, NAAT [[id number]] (Normal) Collected: 09/23/19 0000 Order Status: Completed Lab Status: Final result Updated: 09/23/19 0033 Specimen: Tissue from Nasopharynx Influenza A PCR Negative Influenza B PCR Negative Respiratory pathogen panel, NAAT [[id number]] (Normal) Collected: 09/23/19 0000 Order Status: Completed Lab Status: Final result Updated: 09/23/19 0328 Specimen: Tissue from Nasopharynx Parainfluenza 1 Not Detected Adenovirus Not Detected Human Metapneumovirus Not Detected Rhinovirus/Enterovirus Not Detected Parainfluenza 3 Not Detected Culture, Blood [[id number]] Collected: 09/22/19 2359 Order Status: Completed Lab Status: Preliminary result Updated: 09/23/19 1221 Specimen: Peripheral Blood Culture No growth: Monitored continually by instrument for 5 days Culture, MRSA [[id number]] (Normal) Collected: 09/22/19 2322 Order Status: Completed Lab Status: Final result Updated: 09/24/19 0812 Specimen: Tissue from Nares Culture Negative for MRSA by chromogenic agar method. Radiology results Xr Chest Pa And Lateral Result Date: 09/23/2019 EXAM: XR CHEST PA AND LATERAL dated 09/23/2019 8:05 AM HISTORY: eval for pneumonia Comparis on: None. TECHNIQUE: Frontal and lateral views of the chest. FINDINGS: The lungs are symmet rically aerated. Increased opacity of the left lower lobe. Prominence of the pulmonary vasc ulature. There are no pleural effusions. There is no pneumothorax. Mild cardiomegaly. Th e visible osseous structures are unremarkable. Lower lobe infiltrate. Dictated and Signed by: Sandro Elise MD Electronically signed: 09/23/2019 8:32 AM Vitals Ranges: Temp: [35.6 C (96.1 F)-36.7 C (98.1 F)] 35.6 C (96.1 F) Pulse: [89-117] 94 Resp: [16-22] 20 BP: (90-122)/(63-84) 122/81 Vitals: Temp: 35.6 C (96.1 F) BP: 122/81 Pulse: 94 Resp: 20 SpO2: 96 % SpO2 96 % on room air at flow rate L/min Exam GA: NAD, AAOX3, overweight Cardiac: fast rate and irregularly irregular rhythm, no m/g/r, 1+LE swelling Lung: clear bilaterally, normal respiratory effort Abdomen: soft, nt/nd, increased bowel sounds Ext:left fistula with bruit and thrill, pulses strong and equal bilaterally. Pych: normal mood and affect Neuro: pattern painter grossly intact, no focal weakness or sensory deficits Clem Terrell DO 09/25/2019 7:23 AM [facility] Portions of this chart may have been created with [employer] voice recognition software. Occasi onal wrong-word or sound-alike substitutions may have occurred due to the inherent hernandez itations of voice recognition software. Please read the chart carefully and recognize, using context, where these substitutions have occurred Uche Guallpa DO - 09/24/2019 9:13 PM PST [facility] [address] [place] [address] PROGRESS NOTE Pt. Name/Age/: Celso Sutton Case 59 y.o. 1960 Med. Record Number: [id number] Date of admission: 09/22/2019 NEPHROLOGY HPI - Pt seen at 0830. Sitting up, in NAD. Still in AF with VR 100-122. No nausea or chil ls. Lab Results Component Value Date POCGLU 157 (H) 09/24/2019 POCGLU 189 (H) 09/24/2019 POCGLU 113 (H) 09/24/2019 POCGLU 158 (H) 09/23/2019 EXAM: BP 107/84 | Pulse 92 | Temp 35.8 C (96.4 F) (Oral) | Resp 20 | Ht 1.854 m (6' 1") | Wt 128.2 kg (282 lb 10.1 oz) | SpO2 95% | BMI 37.29 kg/m Tmax 36.7 (Wt. increased 0.5 kg) Intake/Output Summary (Last 24 hours) at 09/24/20193 Last data filed at 09/24/2019 1534 Gross per 24 hour Intake 665 ml Output 50 ml Net 615 ml Heart: irregularly, irregular with grade 1/6 MAXIMO at LSB, no rub. Lungs: CTA bilaterally. Abdomen: Soft, obese, nontender, normoactive bowel sounds. Extremities: no edema, clubbing, or cyanosis, (+) AVF at Left arm with strong thrill. SpO2: 95 % on room air LAB: Recent Labs 09/24/1933109/23/19 1033 NA 136 -- K 4.5 -- CL 97* -- CO2 28 -- BUN 43* -- CREA 7.38* -- GFRNONAA 8* -- GLU 141* -- CALCIUM 8.2* -- PHOS 5.3* -- MG -- 1.8 Recent Labs 09/24/19331 WBC 10.2 HGB 10.6* HCT 32.9* PLT 188 MCV 97.1 NEUPCT 75.3 LYMPCT 14.2* EOSPCT 1.5 IMPRESSION 1. ESRD 2 to T2DM-- on thrice weekly HD. 2. Fever with rapid AF-- HR slowing. Still suspect that this was 2 to a viral gastroent eritis? Blood Cxs are NGTD. 3. Type 2 DM-- stable. 4. Hypotension-- suspect 2 to ECF volume depletion and recent rapid AF, now better. 5. Anemia 2 to CKD-- on EPO. PLAN 1. Cont. B blockade, PO. 2. De-escalate AB's if blood Cxs remain Neg. 3. Titrate up metoprolol to control his vent. rate. [facility] Clem Gann DO - 09/24/2019 7:11 AM PST [facility] PROGRESS NOTE Patient: Celso Caro : 1960: Age: 59 y.o. MedRec: [id number] Admission date: 09/22/2019 Hospital day # : 2 Physician author: Clem Terrell DO Today: 09/24/2019 Subjective CC No new complaint. He denied chest pain, SOB, light headedness, and dizziness. ROS See above Overnight Event: none Assessment and Hospital Course Active Hospital Problems Diagnosis Sepsis Atrial fibrillation with RVR Pneumonia of left lower lobe due to infectious organism Resolved Hospital Problems No resolved problems to display. 59yoM w/ hx of ESRD on HD, a flutter, PAD, IDDM, s/p L 2nd and 3rd toe OM s/p amputation, c hronic R foot ulcer, who presented to [facility] not feeling well for several da ys. Plan # Sepsis # LLL pneumonia Improving. On presentation he was tachycardic, leukocytosis, and hypotensive on presentatio n. BP responded to IVF boluses. CXR with LLL infiltrate - Stop vancomycin and zosyn - cont on ceftriazone and azithromycin for CAP - stop IVF - continue supportive care - norepi prn for BP support, have not need to start it # Afib w/ RVR HR is fast but improved from yesterday afternoon. He was given IVF and dilt at [facility]. BP improved - resume metoprolol at lower dose - cont dilt gtt prn - Continue eliquis - Continue telemetry monitoring # Chronic sCHF w/ EF 40-45% 2017 No evidence of HF at this time -Monitor closely # ESRD on HD MWF - Missed HD yesterday due to illness. K 4.5 this morning - Nephrology consulted for HD - Continue renavite and sensipar # IDDM Good BG control -holding lantus since he is not eating much - SSI for now. # Diabetic right foot ulcer Per patient and , looks better. Being managed by Dr. Sahni. - cont to monitor - wound management # GERD -continue PPI # HLD -continue statin. Dispo: home in 1-2 days Allergies: Allergies Allergen Reactions Amlodipine Besylate Unknown Fenofibrate Acidosis Metformin Diarrhea Current Medications: Current Facility-Administered Medications Medication Dose Route Frequency Provider Last Rate Last Dose acetaminophen (TYLENOL) tablet 650 mg 650 mg Oral Q4H PRN Kori Ross MD albumin 25% IVPB 12.5 g 12.5 g Intravenous PRN Uche Orozco, DO apixaban (ELIQUIS) tablet 2.5 mg 2.5 mg Oral BID Kori Ross MD 2.5 mg at 2027 azithromycin (ZITHROMAX) 500 mg in sodium chloride 0.9% 250 mL IVPB 500 mg Intravenous Daily Clem Terrell, DO 255 mL/hr at 09/23/19 1133 500 mg at 09/23/19 1133 bisacodyl (DULCOLAX) suppository 10 mg 10 mg Rectal Daily PRN Kori Ross MD calcium carbonate (TUMS) chewable tablet 1,000 mg 1,000 mg Oral Q4H PRN Kori Ross MD cefTRIAXone (ROCEPHIN) 1 g in sodium chloride 0.9% 50 mL IVPB 1 g Intravenous Daily mg Terrell, DO 100 mL/hr at 09/23/19 1051 1 g at 09/23/19 1051 cholecalciferol (VITAMIN D-3) tablet 5,000 Units 5,000 Units Oral Daily Kori Ross MD 5,000 Units at 09/23/19 0851 cinacalcet (SENSIPAR) tablet 30 mg 30 mg Oral Once per day on Sun Kori youngblood MD 30 mg at 09/23/19 0008 dextrose 50% injection 12.5-25 g 12.5-25 g Intravenous PRN Kori Ross MD And dextrose 10% (D10W) infusion Intravenous Continuous PRN Kori Ross MD dilTIAZem (CARDIZEM) 1 mg/mL in sodium chloride 0.9% 125 mL infusion 0-15 mg/hr Intrav enous Titrated Adal Rodriguez MD Stopped at 09/23/19 2231 docusate sodium (COLACE) capsule 100 mg 100 mg Oral BID PRN Kori Ross MD doxercalciferol (HECTOROL) capsule 2.5 mcg 2.5 mcg Oral Once per day on Sun Shaji Orozco DO heparin 1,000 units/mL injection 1,500-6,000 Units 1,500-6,000 Units Intracatheter PRN Uche Orozco DO heparin in half-normal saline 100 units/mL infusion 400 Units/hr Intravenous Dialysis - Continuous Uche Orozco DO Stopped at 09/23/19 1643 insulin lispro (humaLOG KWIKPEN) injection (pen) 0-6 Units 0-6 Units Subcutaneous 4x D aily WC and HS Kori Ross MD mannitol 25% injection 12.5 g 12.5 g Intravenous PRN Uche Orozco DO melatonin tablet 3 mg 3 mg Oral Nightly PRN Kori Ross MD metoprolol tartrate (LOPRESSOR) tablet 12.5 mg 12.5 mg Oral TID Clem Terrell DO norepinephrine in saline (LEVOPHED) 16 mcg/mL infusion 0-30 mcg/min Intravenous Titrat ed Clem Terrell DO Stopped at 09/23/19 1631 ondansetron (ZOFRAN) injection 4 mg 4 mg Intravenous Q6H PRN Kori Ross MD pantoprazole (PROTONIX) DR tablet 40 mg 40 mg Oral QAM AC Kori Ross MD 40 mg at 09/24/19 0652 polyethylene glycol (MIRALAX) powder 17 g 17 g Oral Daily PRN Kori Ross MD renal multivitamin (DIALYVITE, VOL-CARE) tablet 1 tablet 1 tablet Oral Daily Kori teresa MD 1 tablet at 09/23/19 0852 rosuvastatin (CRESTOR) tablet 20 mg 20 mg Oral Daily Kori Ross MD 20 mg at 09/07 04/25 0852 senna (SENOKOT) tablet 8.6 mg 8.6 mg Oral BID PRN Kori Ross MD sodium chloride 0.9% (NS) infusion 250 mL 250 mL Intravenous Q30 Min PRN Uche max DO Current Infusions: dextrose 10% diltiazem (CARDIZEM) infusion Stopped (09/23/19 2231) Heparin Infusion Stopped (09/23/19 1643) norepinephrine Stopped (09/23/19 1631) Objective Data Point of care glucose Recent Labs Lab 09/24/19 0654 09/23/19 2027 09/23/19 1709 09/23/19 1152 09/23/19 0707 09/23/19 0021 POCGLU 113* 158* 117* 126* 117* 141* Labs last 24 hours Recent Results (from the past 24 hour(s)) Magnesium Collection Time: 09/23/19 10:33 AM Result Value Ref Range Magnesium 1.8 1.6 - 2.6 mg/dL POC Glucose Collection Time: 09/23/19 11:52 AM Result Value Ref Range Glucose, POC 126 (H) 70 - 109 mg/dL POC Glucose Collection Time: 09/23/19 5:09 PM Result Value Ref Range Glucose, POC 117 (H) 70 - 109 mg/dL POC Glucose Collection Time: 09/23/19 8:27 PM Result Value Ref Range Glucose, POC 158 (H) 70 - 109 mg/dL CBC with Differential Collection Time: 09/24/19 3:32 AM Result Value Ref Range WBC 10.2 4.0 - 11.0 K/uL RBC 3.39 (L) 4.30 - 5.70 M/uL Hemoglobin 10.6 (L) 13.5 - 18.0 g/dL Hematocrit 32.9 (L) 40.0 - 51.0 % MCV 97.1 83.0 - 101.0 fL MCH 31.3 28.0 - 35.0 pg MCHC 32.2 32.0 - 36.0 g/dL RDW-CV 14.7 <15.0 % RDW-SD 52.2 (H) 35.1 - 46.3 fL Platelet Count 188 140 - 440 K/uL MPV 10.2 6.5 - 12.4 fL % Neutrophils 75.3 45.0 - 82.0 % % Lymphocytes 14.2 (L) 20.0 - 45.0 % % Monocytes 8.1 4.0 - 12.0 % % Eosinophils 1.5 0.0 - 5.0 % % Basophils 0.7 0.0 - 1.0 % % Immature Granulocytes 0.2 0.0 - 0.4 % Absolute Neutrophils 7.67 1.80 - 8.50 K/uL Absolute Lymphocytes 1.45 0.60 - 3.20 K/uL Absolute Monocytes 0.83 0.00 - 1.00 K/uL Absolute Eosinophils 0.15 0.00 - 0.40 K/uL Absolute Basophils 0.07 0.00 - 0.10 K/uL Absolute Immature Granulocytes 0.02 0.00 - 0.03 K/uL % nRBC 0 0 - 2 per 100 WBCs Absolute nRBC 0.00 0.00 - 0.01 K/uL Renal Function Panel Collection Time: 09/24/19 3:32 AM Result Value Ref Range Na 136 136 - 145 mmol/L K 4.5 3.4 - 5.1 mmol/L Cl 97 (L) 98 - 107 mmol/L CO2 28 20 - 31 mmol/L Anion Gap 11 3 - 16 mmol/L Glucose 141 (H) 60 - 106 mg/dL BUN 43 (H) 9 - 23 mg/dL Creatinine 7.38 (H) 0.70 - 1.30 mg/dL eGFR if not 8 (L) >=60 mL/min/1.73m2 Calcium 8.2 (L) 8.7 - 10.4 mg/dL Albumin 3.4 3.2 - 4.8 g/dL Phosphorus 5.3 (H) 2.4 - 5.1 mg/dL BUN/Creatinine Ratio 5.8 POC Glucose Collection Time: 09/24/19 6:54 AM Result Value Ref Range Glucose, POC 113 (H) 70 - 109 mg/dL Micro results Microbiology Results (72 hrs) Procedure Component Value Units Date/Time Culture, Blood [[id number]] Collected: 09/23/19 0008 Order Status: Completed Lab Status: Preliminary result Updated: 09/23/19 1211 Specimen: Peripheral Blood Culture No growth: Monitored continually by instrument for 5 days Influenza A and B RNA, NAAT [[id number]] (Normal) Collected: 09/23/19 0000 Order Status: Completed Lab Status: Final result Updated: 09/23/19 0033 Specimen: Tissue from Nasopharynx Influenza A PCR Negative Influenza B PCR Negative Respiratory pathogen panel, NAAT [[id number]] (Normal) Collected: 09/23/19 0000 Order Status: Completed Lab Status: Final result Updated: 09/23/19 0328 Specimen: Tissue from Nasopharynx Parainfluenza 1 Not Detected Adenovirus Not Detected Human Metapneumovirus Not Detected Rhinovirus/Enterovirus Not Detected Parainfluenza 3 Not Detected Culture, Blood [[id number]] Collected: 09/22/19 2359 Order Status: Completed Lab Status: Preliminary result Updated: 09/23/19 1221 Specimen: Peripheral Blood Culture No growth: Monitored continually by instrument for 5 days Culture, MRSA [[id number]] Collected: 09/22/19 2322 Order Status: Sent Lab Status: In process Updated: 09/22/192325 Specimen: Tissue from Nares Radiology results Xr Chest Pa And Lateral Result Date: 09/23/2019 EXAM: XR CHEST PA AND LATERAL dated 09/23/2019 8:05 AM HISTORY: eval for pneumonia Comparis on: None. TECHNIQUE: Frontal and lateral views of the chest. FINDINGS: The lungs are symmet rically aerated. Increased opacity of the left lower lobe. Prominence of the pulmonary vasc ulature. There are no pleural effusions. There is no pneumothorax. Mild cardiomegaly. Th e visible osseous structures are unremarkable. Lower lobe infiltrate. Dictated and Signed by: Sandro Elise MD Electronically signed: 09/23/2019 8:32 AM Vitals Ranges: Temp: [35.8 C (96.4 F)-37.9 C (100.2 F)] 36.8 C (98.2 F) Pulse: [81-144] 100 Resp: [10-30] 17 BP: (84-141)/(54-89) 92/54 Vitals: Temp: 36.8 C (98.2 F) BP: 92/54 Pulse: 100 Resp: 17 SpO2: 93 % SpO2 93 % on room air at flow rate L/min Exam GA: NAD, AAOX3, overweight HEENT: EOMI, MMM Neck: no JVD, no LDN Cardiac: fast rate and irregularly irregular rhythm, no m/g/r, 1+LE swelling Lung: crackles bilateral base, normal respiratory effort Abdomen: soft, nt/nd, nabs Ext:left fistula with bruit and thrill, pulses strong and equal bilaterally. Multiple amput ated left toes. 7 mm ulcer on the ball of the right foot without drainage or erythema. It is nontender Pych: normal mood and affect Neuro: pattern painter grossly intact, no focal weakness or sensory deficits lCem Terrell DO 09/24/2019 7:11 AM [facility] Portions of this chart may have been created with [employer] voice recognition software. Occasi onal wrong-word or sound-alike substitutions may have occurred due to the inherent hernandez itations of voice recognition software. Please read the chart carefully and recognize, using context, where these substitutions have occurred Merari Young RN - 09/07 6:34 PM [id number] iv dilt given per md order, dilt drip started at 5mg per hour by auricular therapist HR low 100's bp 106/63 S>O at bedside Electronically signed by Merari Lima RN at 2018 6:36 PM Merari Young RN - 09/23/2019 5:05 PM PSTHR sustained 100-120's md notifie d pt asymptomatic Clem Gann DO - 09/23/2019 7:23 AM PSTFormatting of this note might be different from the orig inal. [facility] PROGRESS NOTE Patient: Celso Caro : 1960: Age: 59 y.o. MedRec: [id number] Admission date: 09/22/2019 Hospital day # : 1 Physician author: Clem Terrell DO Today: 09/23/2019 Subjective CC Feels better today. Some cough and nausea. He denied chest pain, SOB, abdominal pain, vo miting, and diarrhea. ROS See above Overnight Event: none Assessment and Hospital Course Active Hospital Problems Diagnosis Severe sepsis Atrial fibrillation with RVR Resolved Hospital Problems No resolved problems to display. 59yoM w/ hx of ESRD on HD, a flutter, PAD, IDDM, s/p L 2nd and 3rd toe OM s/p amputation, c hronic R foot ulcer, who presented to [facility] not feeling well for several da ys. Plan # Sepsis # LLL pneumonia Improving. On presentation he was tachycardic, leukocytosis, and hypotensive on presentatio n. BP responded to IVF boluses. CXR with LLL infiltrate - Stop vancomycin and zosyn - start on ceftriazone and azithromycin for CAP - stop IVF - continue supportive care - norepi prn for BP support # Afib w/ RVR HR is controlled now. He was given IVF and dilt at [facility]. - Holding on more dilt and metoprolol due to soft Bps - Continue eliquis - Continue telemetry monitoring # Chronic sCHF w/ EF 40-45% 2017 No evidence of HF at this time -Monitor closely with IVF # ESRD on HD MWF - Missed HD yesterday due to illness. K 4.5 this morning - Nephrology consulted for HD - Continue renavite and sensipar # IDDM Good BG control -holding lantus since he is not eating much - SSI for now. # GERD -continue PPI # HLD -continue statin. Allergies: Allergies Allergen Reactions Amlodipine Besylate Unknown Fenofibrate Acidosis Metformin Diarrhea Current Medications: Current Facility-Administered Medications Medication Dose Route Frequency Provider Last Rate Last Dose acetaminophen (TYLENOL) tablet 650 mg 650 mg Oral Q4H PRN Kori Ross MD apixaban (ELIQUIS) tablet 2.5 mg 2.5 mg Oral BID Kori Ross MD bisacodyl (DULCOLAX) suppository 10 mg 10 mg Rectal Daily PRN Kori Ross MD calcium carbonate (TUMS) chewable tablet 1,000 mg 1,000 mg Oral Q4H PRN Kori Ross MD cholecalciferol (VITAMIN D-3) tablet 5,000 Units 5,000 Units Oral Daily Kori Ross MD cinacalcet (SENSIPAR) tablet 30 mg 30 mg Oral Once per day on Sun Kori youngblood MD 30 mg at 09/23/19 0008 dextrose 50% injection 12.5-25 g 12.5-25 g Intravenous PRN Kori Ross MD And dextrose 10% (D10W) infusion Intravenous Continuous PRN Kori Ross MD docusate sodium (COLACE) capsule 100 mg 100 mg Oral BID PRN Kori Ross MD insulin lispro (humaLOG KWIKPEN) injection (pen) 0-6 Units 0-6 Units Subcutaneous 4x D aily WC and HS Kori Ross MD melatonin tablet 3 mg 3 mg Oral Nightly PRN Kori Ross MD norepinephrine in saline (LEVOPHED) 16 mcg/mL infusion 0-30 mcg/min Intravenous Titrat ed Clem Terrell DO ondansetron (ZOFRAN) injection 4 mg 4 mg Intravenous Q6H PRN Kori Ross MD pantoprazole (PROTONIX) DR tablet 40 mg 40 mg Oral QAM AC Kori Ross MD 40 mg at 09/23/19 0708 piperacillin-tazobactam (ZOSYN) 3.375 g in sodium chloride 0.9% 100 mL IVPB 3.375 g In travenous Q12H Buzz VillaD 25 mL/hr at 09/23/19 0459 3.375 g at 09/23/19 0459 polyethylene glycol (MIRALAX) powder 17 g 17 g Oral Daily PRN Kori Ross MD renal multivitamin (DIALYVITE, VOL-CARE) tablet 1 tablet 1 tablet Oral Daily Kori teresa MD rosuvastatin (CRESTOR) tablet 20 mg 20 mg Oral Daily Kori Ross MD senna (SENOKOT) tablet 8.6 mg 8.6 mg Oral BID PRN Kori Ross MD vancomycin per pharmacy Other Pharmacy Consult Kori Ross MD Current Infusions: dextrose 10% norepinephrine Objective Data Point of care glucose Recent Labs Lab 09/23/19 0021 POCGLU 141* Labs last 24 hours Recent Results (from the past 24 hour(s)) Procalcitonin Collection Time: 09/22/19 11:43 PM Result Value Ref Range Procalcitonin 5.26 (HH) <=0.50 ng/mL Comment Lactic Acid Collection Time: 09/22/19 11:43 PM Result Value Ref Range Lactate 2.2 0.5 - 2.2 mmol/L Influenza A and B RNA, NAAT Collection Time: 09/23/19 12:00 AM Result Value Ref Range Influenza A PCR Negative Negative, Test not performed Influenza B PCR Negative Negative, Test not performed Respiratory pathogen panel, NAAT Collection Time: 09/23/19 12:00 AM Result Value Ref Range Parainfluenza 1 Not Detected Not Detected Adenovirus Not Detected Not Detected Human Metapneumovirus Not Detected Not Detected Rhinovirus/Enterovirus Not Detected Not Detected Parainfluenza 3 Not Detected Not Detected POC Glucose Collection Time: 09/23/19 12:21 AM Result Value Ref Range Glucose, POC 141 (H) 70 - 109 mg/dL CBC with Differential Collection Time: 09/23/19 4:09 AM Result Value Ref Range WBC 17.8 (H) 4.0 - 11.0 K/uL RBC 3.58 (L) 4.30 - 5.70 M/uL Hemoglobin 11.0 (L) 13.5 - 18.0 g/dL Hematocrit 34.3 (L) 40.0 - 51.0 % MCV 95.8 83.0 - 101.0 fL MCH 30.7 28.0 - 35.0 pg MCHC 32.1 32.0 - 36.0 g/dL RDW-CV 14.7 <15.0 % RDW-SD 51.6 (H) 35.1 - 46.3 fL Platelet Count 189 140 - 440 K/uL MPV 9.7 6.5 - 12.4 fL % Neutrophils 85.7 (H) 45.0 - 82.0 % % Lymphocytes 7.7 (L) 20.0 - 45.0 % % Monocytes 5.7 4.0 - 12.0 % % Eosinophils 0.1 0.0 - 5.0 % % Basophils 0.4 0.0 - 1.0 % % Immature Granulocytes 0.4 0.0 - 0.4 % Absolute Neutrophils 15.22 (H) 1.80 - 8.50 K/uL Absolute Lymphocytes 1.37 0.60 - 3.20 K/uL Absolute Monocytes 1.01 (H) 0.00 - 1.00 K/uL Absolute Eosinophils 0.02 0.00 - 0.40 K/uL Absolute Basophils 0.08 0.00 - 0.10 K/uL Absolute Immature Granulocytes 0.08 (H) 0.00 - 0.03 K/uL % nRBC 0 0 - 2 per 100 WBCs Absolute nRBC 0.00 0.00 - 0.01 K/uL Comprehensive Metabolic Panel Collection Time: 09/23/19 4:09 AM Result Value Ref Range Na 135 (L) 136 - 145 mmol/L K 4.5 3.4 - 5.1 mmol/L Cl 93 (L) 98 - 107 mmol/L CO2 30 20 - 31 mmol/L Anion Gap 12 3 - 16 mmol/L Glucose 119 (H) 60 - 106 mg/dL BUN 48 (H) 9 - 23 mg/dL Creatinine 8.89 (HH) 0.70 - 1.30 mg/dL eGFR if not 6 (L) >=60 mL/min/1.73m2 Calcium 8.0 (L) 8.7 - 10.4 mg/dL Albumin 3.5 3.2 - 4.8 g/dL Bilirubin Total 1.0 0.3 - 1.2 mg/dL Total Protein 7.4 5.7 - 8.2 g/dL AST 20 0 - 34 U/L ALT <7 (L) 10 - 49 U/L Alkaline Phosphatase 149 (H) 46 - 116 U/L Globulin 3.9 (H) 2.1 - 3.8 g/dL Albumin/Globulin Ratio 0.9 0.8 - 1.9 BUN/Creatinine Ratio 5.4 Magnesium Collection Time: 09/23/19 4:09 AM Result Value Ref Range Magnesium 1.8 1.6 - 2.6 mg/dL ECG 12 lead Collection Time: 09/23/19 5:56 AM Result Value Ref Range VENTRICULAR RATE EKG 82 BPM QRS DURATION 94 ms Q-T INTERVAL 454 ms Q-T INTERVAL (CORRECTED) 530 ms QRS AXIS 42 degrees T AXIS 135 degrees INTERPRETATION TEXT Atrial fibrillation Nonspecific T wave abnormality Lateral leads Prolonged QT Abnormal ECG When compared with ECG of 08-SEP-2018 13:30, Atrial fibrillation has replaced Atrial flutter Nonspecific T wave abnormality no longer evident in Inferior leads Confirmed by JEAN-PAUL YOUNG, ELEANOR ([id number]) on 09/23/2019 6:18:42 AM Micro results Microbiology Results (72 hrs) Procedure Component Value Units Date/Time Culture, Blood [[id number]] Collected: 09/23/19 0008 Order Status: Sent Lab Status: In process Updated: 09/23/19 0008 Specimen: Peripheral Blood Influenza A and B RNA, NAAT [[id number]] (Normal) Collected: 09/23/19 0000 Order Status: Completed Lab Status: Final result Updated: 09/23/19 0033 Specimen: Tissue from Nasopharynx Influenza A PCR Negative Influenza B PCR Negative Respiratory pathogen panel, NAAT [[id number]] (Normal) Collected: 09/23/19 0000 Order Status: Completed Lab Status: Final result Updated: 09/23/19 0328 Specimen: Tissue from Nasopharynx Parainfluenza 1 Not Detected Adenovirus Not Detected Human Metapneumovirus Not Detected Rhinovirus/Enterovirus Not Detected Parainfluenza 3 Not Detected Culture, Blood [[id number]] Collected: 09/22/19 2359 Order Status: Sent Lab Status: In process Updated: 09/23/197 Specimen: Peripheral Blood Culture, MRSA [[id number]] Collected: 09/22/19 2322 Order Status: Sent Lab Status: In process Updated: 09/22/192325 Specimen: Tissue from Nares Radiology results No results found. Vitals Ranges: Temp: [36.2 C (97.2 F)-37 C (98.6 F)] 36.2 C (97.2 F) Pulse: [84-116] 84 Resp: [14-23] 14 BP: (72-103)/(45-93) 72/45 Vitals: Temp: 36.2 C (97.2 F) BP: (!) 72/45 Pulse: 84 Resp: 14 SpO2: 9 7 % SpO2 97 % on at flow rate L/min Exam GA: NAD, AAOX3, overweight HEENT: EOMI, MMM Neck: no JVD, no LDN Cardiac: normal rate and irregularly irregular rhythm, no m/g/r, 1+LE swelling Lung: crackles bilateral base, normal respiratory effort Abdomen: soft, nt/nd, nabs Ext:left fistula with bruit but difficult to palpate thrill, pulses strong and equal bilate rally Pych: normal mood and affect Neuro: pattern painter grossly intact, no focal weakness or sensory deficits Clem Terrell DO 09/23/2019 7:23 AM [facility] Portions of this chart may have been created with [employer] voice recognition software. Occasi onal wrong-word or sound-alike substitutions may have occurred due to the inherent hernandez itations of voice recognition software. Please read the chart carefully and recognize, using context, where these substitutions have occurred Polly Christianson PharmD - 09/22/2019 11:47 PM PST RENAL DOSE ADJUSTMENT PER PHARMACY PROTOCOL: Subjective/Objective: Celso Sutton Case is a 59 y.o. year old male admitted on 09/22/2019 11:11 PM for sepsis and i s receiving PIPERACILLIN/TAZOBACTAM for sepsis. BP (!) 89/65 | Pulse 116 | Temp 37 C (98.6 F) (Oral) | Resp 23 | Ht 1.854 m (6' 1") | Wt 125.9 kg (277 lb 9 oz) | SpO2 98% | BMI 36.62 kg/m No intake or output data in the 24 hours ending 09/22/19 2343No results for input(s): CREA in the last 168 hours.CrCl cannot be calculated (Patient's most recent lab result is older t [place] the maximum 3 days allowed.). Date Day of therapy Creatinine CrCl (mL/min) Dose-current Dose-new 09/22/19 1 (HD patient) N/a 2.5 mg q12hr 3.375 mg q12hr Assessment/Plan: For creatinine clearance <20 mL/min, increase dose of PIPERACILLIN/TAZOBACTAM as above. Pharmacy will continue to follow and adjust dose as appropriate to clinical condition and c reatinine clearance changes RENAL DOSE ADJUSTMENT PROTOCOL Electronically signed by: Polly Lee PharmD 09/22/2019 11:43 PM Polly Christianson PharmD - 09/22/2019 11:37 PM PST . VANCOMYCIN PER PHARMACY PROTOCOL: Subjective/Objective: Celso Sutton Case is a 59 y.o. male admitted on 09/22/2019 for severe sepsis. Patient jaime iyer requires dialysis and is receiving vancomycin for sepsis of unknown etiology.. Patient has a past medical history of Arthritis (09/15/2012), BPH with urinary obstruction, Diabetes mellitus, type 2 (HCC) (1999), Diabetic foot ulcer (HCC) (01/01/12), ESRD (end stag e renal disease) on dialysis ([facility]) (1999), Heart murmur, Hepatitis C (2006), Hyperlipidemia, Hypertension (2001), Obesity, Paroxysmal atrial flutter (HCC), Recurrent UTI, and Vitamin D deficiency. Allergies Amlodipine besylate; Fenofibrate; and Metformin Historical Vancomycin dosing (previous & current encounter): vancomycin 1 gram x1 given on 09/22/19 @2105 prior to transfer to [facility] Min/Max Temp past 24 hours:Temp Av C (98.6 F) Min: 37 C (98.6 F) Max: 37 C (98.6 F) BP (!) 87/57 | Pulse 88 | Temp 37 C (98.6 F) (Oral) | Resp 18 | Ht 1.854 m (6' 1") | Wt 125.9 kg (277 lb 9 oz) | SpO2 96% | BMI 36.62 kg/m Vitals with Comments 09/22/2019 09/22/2019 09/23/2019 09/23/2019 SYSTOLIC 90 86 103 87 DIASTOLIC 56 65 93 57 BP Comments - - - - Pulse 100 107 94 88 Temp - - - - Resp 20 20 18 18 Weight - - - - Height - - - - SPO2 96 96 97 96 BMI - - - - Pain Score - - - - Pain Score - - - - Pain Loc - - - - Pain Edu? - - - - Recent Labs Lab 09/22/19 2343 LACTATE 2.2 PROCALCITONI 5.26* Micro/Cultures/Diagnostics: Microbiology Results (Last 14 Days by Collected Date with Culture/Sensitivity) Procedure Component Value Units Date/Time Culture, Blood [[id number]] Collected: 09/23/197 Order Status: Sent Lab Status: In process Updated: 09/23/197 Specimen: Peripheral Blood Influenza A and B RNA, NAAT [[id number]] (Normal) Collected: 09/23/19 0000 Order Status: Completed Lab Status: Final result Updated: 09/23/1932 Specimen: Tissue from Nasopharynx Influenza A PCR Negative Influenza B PCR Negative Respiratory pathogen panel, NAAT [[id number]] Collected: 09/23/19 0000 Order Status: Sent Lab Status: In process Updated: 09/23/19 000 Specimen: Tissue from Nasopharynx Culture, Blood [[id number]] Collected: 09/22/19 2359 Order Status: Sent Lab Status: In process Updated: 09/23/19 000 Specimen: Peripheral Blood Culture, MRSA [[id number]] Collected: 09/22/192321 Order Status: Sent Lab Status: In process Updated: 09/22/192325 Specimen: Tissue from Nares Relevant cultures from previous admits: Date Source Organisms Sensitivities 01/09/19 Wound (L leg) E faecalis (R) to erythromycin, (S) to others 09/07/18 Wound (L toe) S aureus (MRSA) (S) to clindamycin, linezolid, rifampin, tetracyclin e, Bactrim, vancomycin 09/07/18 Wound (L foot plantar tissue) S aureus (MRSA) (S) to clindamycin, linezolid, rifam pin, tetracycline, Bactrim, vancomycin 09/05/18 Blood S aureus (MRSA) (S) to clindamycin, linezolid, rifampin, tetracycline, Bactr im, vancomycin 06/26/13 Wound (PD cath exit site) P aeruginosa Klebsiella oxytoca (R) to ampicillin, Unasyn, cefazolin, ceftriaxone (S) to ceftazidime cipro, gentamicin, meropenem, tobramycin (R) to ampicillin, (S) to others Imaging: None current Date 09/22 Dialysis (yes/no) no Vancomycin level n/a Vancomycin Dose 1000 mg Assessment: Other antibiotics: Zosyn WBC: pending; Renal: HD patient; Temp: afebrile; Culture: blood- pending; VS: hypotensiv e, tachycardic (but improving) Target Trough:15-20 mcg/ml for sepsis. Prior to admission dialysis schedule: Sunday/Sunday/Sunday--patient did NOT get dialy sis on day of admit, though scheduled. Vancomycin Dosing in HD patients: Loading dose of 15-20 mg/kg with subsequent dosing based on post-HD levels. If post-hemodialysis (5-6 hrs after completiong of HD) vancomycin concentration is: - >20 mcg/mL: hold post-HD dose - 10-20 mcg/mL: 500 mg after HD - <10 mcg/mL: 750-1000 mg after HD Will use adjusted body weight of 98.3 kg for dosing purposes Plan: 1. Vancomcyin 1000 mg IV was given prior to transfer (09/22/19 @2105) 2. Vancomycin post-HD level will be ordered when dialysis is scheduled 3. Next Dialysis scheduled for (pending) 4. Pharmacy to monitor daily and adjust dosage per protocol Per P&T-approved Vancomycin Dosing and Monitoring Protocol Electronically signed by: Polly Lee PharmD 09/22/2019 11:38 PM Vancomycin dosing protocol IDSA guidelines Pharmacist-Driven Procalcitonin Protocol documented in thi s encounter Plan of Treatment Not on filedocumented as of this encounter Procedures + +--------+ + + + | Procedure Name | Priori | Date/Time | Associated Diagnosis | Comments | | | ty | | | | + +--------+ + + + | EXTRA LAVENDER TOP | Routin | 09/26/2019 | | Results for this | | TUBE | e | 6:19 AM | | procedure are in the | | | | PST | | results section. | + +--------+ + + + | RENAL FUNCTION PANEL | Routin | 09/26/2019 | | Results for this | | | e | 4:51 AM | | procedure are in the | | | | PST | | results section. | + +--------+ + + + | POC GLUCOSE | Routin | 09/25/2019 | | Results for this | | | e | 9:29 PM | | procedure are in the | | | | PST | | results section. | + +--------+ + + + | POC GLUCOSE | Routin | 09/25/2019 | | Results for this | | | e | 5:11 PM | | procedure are in the | | | | PST | | results section. | + +--------+ + + + | POC GLUCOSE | Routin | 09/25/2019 | | Results for this | | | e | 11:53 AM | | procedure are in the | | | | PST | | results section. | + +--------+ + + + | POC GLUCOSE | Routin | 09/25/2019 | | Results for this | | | e | 7:16 AM | | procedure are in the | | | | PST | | results section. | + +--------+ + + + | PROCALCITONIN, SERUM | Routin | 09/25/2019 | | Results for this | | | e | 5:07 AM | | procedure are in the | | | | PST | | results section. | + +--------+ + + + | CBC NO DIFFERENTIAL | Routin | 09/25/2019 | | Results for this | | | e | 5:07 AM | | procedure are in the | | | | PST | | results section. | + +--------+ + + + | RENAL FUNCTION PANEL | Routin | 09/25/2019 | | Results for this | | | e | 5:07 AM | | procedure are in the | | | | PST | | results section. | + +--------+ + + + | POC GLUCOSE | Routin | 09/24/2019 | | Results for this | | | e | 9:26 PM | | procedure are in the | | | | PST | | results section. | + +--------+ + + + | POC GLUCOSE | Routin | 09/24/2019 | | Results for this | | | e | 5:05 PM | | procedure are in the | | | | PST | | results section. | + +--------+ + + + | CLOSTRIDIOIDES | Routin | 09/24/2019 | | Results for this | | DIFFICILE NAAT | e | 3:34 PM | | procedure are in the | | REFLEX | | PST | | results section. | + +--------+ + + + | CLOSTRIDIOIDES | Routin | 09/24/2019 | | Results for this | | DIFFICILE NAAT | e | 3:34 PM | | procedure are in the | | REFLEX TO TOX AG | | PST | | results section. | + +--------+ + + + | POC GLUCOSE | Routin | 09/24/2019 | | Results for this | | | e | 10:51 AM | | procedure are in the | | | | PST | | results section. | + +--------+ + + + | RESPIRATORY THERAPY | Routin | 09/24/2019 | | | | COMMUNICATION | e | 9:42 AM | | | | | | PST | | | + +--------+ + + + | POC GLUCOSE | Routin | 09/24/2019 | | Results for this | | | e | 6:54 AM | | procedure are in the | | | | PST | | results section. | + +--------+ + + + | CBC WITH | Routin | 09/24/2019 | | Results for this | | DIFFERENTIAL | e | 3:32 AM | | procedure are in the | | | | PST | | results section. | + +--------+ + + + | RENAL FUNCTION PANEL | Routin | 09/24/2019 | | Results for this | | | e | 3:32 AM | | procedure are in the | | | | PST | | results section. | + +--------+ + + + | POC GLUCOSE | Routin | 09/23/2019 | | Results for this | | | e | 8:27 PM | | procedure are in the | | | | PST | | results section. | + +--------+ + + + | POC GLUCOSE | Routin | 09/23/2019 | | Results for this | | | e | 5:09 PM | | procedure are in the | | | | PST | | results section. | + +--------+ + + + | POC GLUCOSE | Routin | 09/23/2019 | | Results for this | | | e | 11:52 AM | | procedure are in the | | | | PST | | results section. | + +--------+ + + + | HEPATITIS B SURFACE | STAT | 09/23/2019 | | Results for this | | AG | | 10:33 AM | | procedure are in the | | | | PST | | results section. | + +--------+ + + + | MAGNESIUM | Add-On | 09/23/2019 | | Results for this | | | | 10:33 AM | | procedure are in the | | | | PST | | results section. | + +--------+ + + + | XR CHEST PA AND | Routin | 09/23/2019 | | Results for this | | LATERAL | e | 8:05 AM | | procedure are in the | | | | PST | | results section. | + +--------+ + + + | POC GLUCOSE | Routin | 09/23/2019 | | Results for this | | | e | 7:07 AM | | procedure are in the | | | | PST | | results section. | + +--------+ + + + | ECG 12 LEAD | STAT | 09/23/2019 | | Results for this | | | | 5:56 AM | | procedure are in the | | | | PST | | results section. | + +--------+ + + + | CBC WITH | Routin | 09/23/2019 | | Results for this | | DIFFERENTIAL | e | 4:09 AM | | procedure are in the | | | | PST | | results section. | + +--------+ + + + | MAGNESIUM | Routin | 09/23/2019 | | Results for this | | | e | 4:09 AM | | procedure are in the | | | | PST | | results section. | + +--------+ + + + | COMPREHENSIVE | Routin | 09/23/2019 | | Results for this | | METABOLIC PANEL | e | 4:09 AM | | procedure are in the | | | | PST | | results section. | + +--------+ + + + | POC GLUCOSE | Routin | 09/23/2019 | | Results for this | | | e | 12:21 AM | | procedure are in the | | | | PST | | results section. | + +--------+ + + + | CULTURE, BLOOD | STAT | 09/23/2019 | | Results for this | | | | 12:08 AM | | procedure are in the | | | | PST | | results section. | + +--------+ + + + | INFLUENZA A AND B | Routin | 09/23/2019 | | Results for this | | RNA, NAAT | e | 12:00 AM | | procedure are in the | | | | PST | | results section. | + +--------+ + + + | RESPIRATORY VIRUS | Routin | 09/23/2019 | | Results for this | | ANTIGENS PROFILE | e | 12:00 AM | | procedure are in the | | | | PST | | results section. | + +--------+ + + + | CULTURE, BLOOD | STAT | 09/22/2019 | | Results for this | | | | 11:59 PM | | procedure are in the | | | | PST | | results section. | + +--------+ + + + | PROCALCITONIN, SERUM | STAT | 09/22/2019 | | Results for this | | | | 11:43 PM | | procedure are in the | | | | PST | | results section. | + +--------+ + + + | LACTIC ACID | STAT | 09/22/2019 | | Results for this | | | | 11:43 PM | | procedure are in the | | | | PST | | results section. | + +--------+ + + + | CULTURE, MRSA | Routin | 09/22/2019 | | Results for this | | | e | 11:22 PM | | procedure are in the | | | | PST | | results section. | + +--------+ + + + | IMAGING REPORT - | | 09/22/2019 | | Results for this | | EXTERNAL SCAN | | 12:00 AM | | procedure are in the | | | | PST | | results section. | + +--------+ + + + | LABS - EXTERNAL SCAN | | 09/22/2019 | | Results for this | | | | 12:00 AM | | procedure are in the | | | | PST | | results section. | + +--------+ + + + | ECG - EXTERNAL SCAN | | 09/22/2019 | | Results for this | | | | 12:00 AM | | procedure are in the | | | | PST | | results section. | + +--------+ + + + documented in this encounter Results Extra Lavender Top Tube (09/26/2019 6:19 AM PST) + +-------+ + + + | Component | Value | Ref Range | Performed | Pathologist | | | | | At | Signature | + +-------+ + + + | Extra | Done | | [facility] | | | Lavender | | | [facility] | | | Top Tube | | | MEDICAL | | | | | | CENTER - | | | | | | LABORATORY | | + +-------+ + + + + + | Specimen | + + | Blood | + + + + + + + | Performing | Address | City/State/Zipcode | Phone Number | | Organization | | | | + + + + + | [facility] | [address] | [place] | [phone] | | [facility] | | [address] | | | - LABORATORY | | | | + + + + + Renal Function Panel (09/26/2019 4:51 AM PST) + + + + + + | Component | Value | Ref Range | Performed | Pathologist | | | | | At | Signature | + + + + + + | Na | 136 | 136 - 145 | [facility] | | | | | mmol/L | [facility] | | | | | | MED[facility] | | | | | | CENTER - | | | | | | LABORATORY | | + + + + + + | K | 5.1 | 3.4 - 5.1 | [facility] | | | | | mmol/L | [facility] | | | | | | MED[facility] | | | | | | CENTER - | | | | | | LABORATORY | | + + + + + + | Cl | 100 | 98 - 107 mmol/L | [facility] | | | | | | [facility] | | | | | | MEDICAL | | | | | | CENTER - | | | | | | LABORATORY | | + + + + + + | CO2 | 21 | 20 - 31 mmol/L | [facility] | | | | | | [facility] | | | | | | [facility] | | | | | | CENTER - | | | | | | LABORATORY | | + + + + + + | Anion Gap | 15 | 3 - 16 mmol/L | [facility] | | | | | | [facility] | | | | | | MEDICAL | | | | | | CENTER - | | | | | | LABORATORY | | + + + + + + | Glucose | 97 | 60 - 106 mg/dL | [facility] | | | | | | [facility] | | | | | | [facility] | | | | | | CENTER - | | | | | | LABORATORY | | + + + + + + | BUN | 58 (H) | 9 - 23 mg/dL | [facility] | | | | | | [facility] | | | | | | MEDICAL | | | | | | CENTER - | | | | | | LABORATORY | | + + + + + + | Creatinine | 10.33 ()Comment: | 0.70 - 1.30 | [facility] | | | | Critical Result called | mg/dL | [facility] | | | | to and read back by | | MEDICAL | | | | Viki Blevins RN | | CENTER - | | | | on 09/26/2019 at 5:57 AM | | LABORATORY | | | | by Venkatesh Henson. | | | | + + + + + + | eGFR if not | 5 (L)Comment: GLOMERULAR | >=60 | [facility] | | | | FILTRATION | mL/min/1.73m2 | [facility] | | | [facility] | RATE,ESTIMATED | | MEDICAL | | | | mL/min/1.88u9Lwqi than | | CENTER - | | | | 60 Chronic kidney | | LABORATORY | | | | disease,if found over a | | | | | | 3-month period.Less than | | | | | | 15 Kidney failureFor | | | | | | | | | | | | Americans,multiply the | | | | | | calculated GFR by 1.21. | | | | | | | | | | + + + + + + | Calcium | 8.5 (L) | 8.7 - 10.4 | [facility] | | | | | mg/dL | [facility] | | | | | | MEDICAL | | | | | | CENTER - | | | | | | LABORATORY | | + + + + + + | Albumin | 3.8 | 3.2 - 4.8 g/dL | [facility] | | | | | | [facility] | | | | | | MEDICAL | | | | | | CENTER - | | | | | | LABORATORY | | + + + + + + | Phosphorus | 6.7 (H) | 2.4 - 5.1 mg/dL | [facility] | | | | | | [facility] | | | | | | MEDICAL | | | | | | CENTER - | | | | | | LABORATORY | | + + + + + + | BUN/Creatin | 5.6 | | [facility] | | | ine Ratio | | | [facility] | | | | | | MEDICAL | | | | | | CENTER - | | | | | | LABORATORY | | + + + + + + + + | Specimen | + + | Blood | + + + + + + + | Performing | Address | City/State/Zipcode | Phone Number | | Organization | | | | + + + + + | [facility] | [address] | [place] | [phone] | | [facility] | | [address] | | | - LABORATORY | | | | + + + + + POC Glucose (09/25/2019 9:29 PM PST) + +---------+ + + + | Component | Value | Ref Range | Performed | Pathologist | | | | | At | Signature | + +---------+ + + + | Glucose, | 156 (H) | 70 - 109 mg/dL | [facility] | | | POC | | | [facility] | | | | | | MEDICAL | | | | | | CENTER - | | | | | | LABORATORY | | + +---------+ + + + + + | Specimen | + + | Blood | + + + + + + + | Performing | Address | City/State/Zipcode | Phone Number | | Organization | | | | + + + + + | [facility] | [address] | [place] | [phone] | | [facility] | | [address] | | | - LABORATORY | | | | + + + + + POC Glucose (09/25/2019 5:11 PM PST) + +---------+ + + + | Component | Value | Ref Range | Performed | Pathologist | | | | | At | Signature | + +---------+ + + + | Glucose, | 152 (H) | 70 - 109 mg/dL | [facility] | | | POC | | | [facility] | | | | | | MEDICAL | | | | | | CENTER - | | | | | | LABORATORY | | + +---------+ + + + + + | Specimen | + + | Blood | + + + + + + + | Performing | Address | City/State/Zipcode | Phone Number | | Organization | | | | + + + + + | [facility] | [address] | [place] | [phone] | | [facility] | | [address] | | | - LABORATORY | | | | + + + + + POC Glucose (09/25/2019 11:53 AM PST) + +---------+ + + + | Component | Value | Ref Range | Performed | Pathologist | | | | | At | Signature | + +---------+ + + + | Glucose, | 193 (H) | 70 - 109 mg/dL | [facility] | | | POC | | | [facility] | | | | | | MEDICAL | | | | | | CENTER - | | | | | | LABORATORY | | + +---------+ + + + + + | Specimen | + + | Blood | + + + + + + + | Performing | Address | City/State/Zipcode | Phone Number | | Organization | | | | + + + + + | [facility] | [address] | [place] | [phone] | | [facility] | | [address] | | | - LABORATORY | | | | + + + + + POC Glucose (09/25/2019 7:16 AM PST) + +---------+ + + + | Component | Value | Ref Range | Performed | Pathologist | | | | | At | Signature | + +---------+ + + + | Glucose, | 130 (H) | 70 - 109 mg/dL | [facility] | | | POC | | | [facility] | | | | | | MEDICAL | | | | | | CENTER - | | | | | | LABORATORY | | + +---------+ + + + + + | Specimen | + + | Blood | + + + + + + + | Performing | Address | City/State/Zipcode | Phone Number | | Organization | | | | + + + + + | [facility] | [address] | [place] | [phone] | | [facility] | | [address] | | | - LABORATORY | | | | + + + + + Renal Function Panel (09/25/2019 5:07 AM PST) + + + + + + | Component | Value | Ref Range | Performed | Pathologist | | | | | At | Signature | + + + + + + | Na | 135 (L) | 136 - 145 | [facility] | | | | | mmol/L | [facility] | | | | | | MEDICAL | | | | | | CENTER - | | | | | | LABORATORY | | + + + + + + | K | 4.7 | 3.4 - 5.1 | [facility] | | | | | mmol/L | [facility] | | | | | | MEDICAL | | | | | | CENTER - | | | | | | LABORATORY | | + + + + + + | Cl | 98 | 98 - 107 mmol/L | [facility] | | | | | | [facility] | | | | | | MEDICAL | | | | | | CENTER - | | | | | | LABORATORY | | + + + + + + | CO2 | 26 | 20 - 31 mmol/L | [facility] | | | | | | [facility] | | | | | | MEDICAL | | | | | | CENTER - | | | | | | LABORATORY | | + + + + + + | Anion Gap | 11 | 3 - 16 mmol/L | [facility] | | | | | | [facility] | | | | | | MEDICAL | | | | | | CENTER - | | | | | | LABORATORY | | + + + + + + | Glucose | 144 (H) | 60 - 106 mg/dL | [facility] | | | | | | [facility] | | | | | | MEDICAL | | | | | | CENTER - | | | | | | LABORATORY | | + + + + + + | BUN | 52 (H) | 9 - 23 mg/dL | [facility] | | | | | | [facility] | | | | | | MEDICAL | | | | | | CENTER - | | | | | | LABORATORY | | + + + + + + | Creatinine | 9.18 ()Comment: | 0.70 - 1.30 | [facility] | | | | Critical Result called | mg/dL | [facility] | | | | to and read back by [facility] | | MEDICAL | | | | Jean Magdaleno RN on | | CENTER - | | | | 09/25/2019 at 5:50 AM by | | LABORATORY | | | | Venkatesh Henson. | | | | + + + + + + | eGFR if not | 6 (L)Comment: GLOMERULAR | >=60 | [facility] | | | | FILTRATION | mL/min/1.73m2 | [facility] | | | [place] | RATE,ESTIMATED | | MEDICAL | | | | mL/min/1.69g9Cyvj than | | CENTER - | | | | 60 Chronic kidney | | LABORATORY | | | | disease,if found over a | | | | | | 3-month period.Less than | | | | | | 15 Kidney failureFor | | | | | | | | | | | | Americans,multiply the | | | | | | calculated GFR by 1.21. | | | | | | | | | | + + + + + + | Calcium | 8.3 (L) | 8.7 - 10.4 | [facility] | | | | | mg/dL | [facility] | | | | | | MEDICAL | | | | | | CENTER - | | | | | | LABORATORY | | + + + + + + | Albumin | 3.8 | 3.2 - 4.8 g/dL | [facility] | | | | | | [facility] | | | | | [facility] | | | | | | CENTER - | | | | | | LABORATORY | | + + + + + + | Phosphorus | 5.9 (H) | 2.4 - 5.1 mg/dL | [facility] | | | | | | [facility] | | | | | | MEDICAL | | | | | | CENTER - | | | | | | LABORATORY | | + + + + + + | BUN/Creatin | 5.7 | | [facility] | | | ine Ratio | | | [facility] | | | | | | MEDICAL | | | | | | CENTER - | | | | | | LABORATORY | | + + + + + + + + | Specimen | + + | Blood | + + + + + + + | Performing | Address | City/State/Zipcode | Phone Number | | Organization | | | | + + + + + | [facility] | [address] | [place] | [phone] | | [facility] | | [address] | | | - LABORATORY | | | | + + + + + Procalcitonin (09/25/2019 5:07 AM PST) + + + + + + | Component | Value | Ref Range | Performed | Pathologist | | | | | At | Signature | + + + + + + | Procalciton | 12.90 ()Comment: | <=0.50 ng/mL | [facility] | | | in | Critical Result called | | [facility] | | | | to and read back by [facility] | | MEDICAL | | | | Jean Magdaleno RN on | | CENTER - | | | | 09/25/2019 at 6:02 AM by | | LABORATORY | | | | Venkatesh Henson. | | | | + + + + + + | Comment | Comment: < 0.50 | | [facility] | | | | ng/mL:Procalcitonin | | [facility] | | | | levels below 0.50 ng/mL | | MEDICAL | | | | on the first day of | | CENTER - | | | | admission represents a | | LABORATORY | | | | low risk for progression | | | | | | to severe sepsis and/or | | | | | | septic shock, however | | | | | | these do not exclude an | | | | | | infection, because | | | | | | localized infections | | | | | | (without systemic signs) | | | | | | may also be associated | | | | | | with such low levels. | | | | | | > 2.00 | | | | | | ng/mL:Procalcitonin | | | | | | levels above 2.00 ng/mL | | | | | | on the first day of | | | | | | admission represents a | | | | | | high risk for | | | | | | progression to severe | | | | | | sepsis and/or septic | | | | | | shock. If the | | | | | | procalcitonin | | | | | | measurement is performed | | | | | | shortly after the | | | | | | systemic infection | | | | | | process has started | | | | | | (usually less than 6 | | | | | | hours), these values may | | | | | | still be low. As | | | | | | various non-infectious | | | | | | conditions are known to | | | | | | induce procalcitonin as | | | | | | well, procalcitonin | | | | | | levels between 0.50 | | | | | | ng/mL and 2.00 ng/mL | | | | | | should be reviewed | | | | | | carefully to take into | | | | | | account the specific | | | | | | clinical background and | | | | | | condition(s) of the | | | | | | individual patient. | | | | + + + + + + + + | Specimen | + + | Blood | + + + + + + + | Performing | Address | City/State/Zipcode | Phone Number | | Organization | | | | + + + + + | [facility] | [address] | [place] | [phone] | | [facility] | | [address] | | | - LABORATORY | | | | + + + + + CBC no Differential (09/25/2019 5:07 AM PST) + + + + + + | Component | Value | Ref Range | Performed | Pathologist | | | | | At | Signature | + + + + + + | WBC | 8.4 | 4.0 - 11.0 K/uL | [facility] | | | | | | [facility] | | | | | | MEDICAL | | | | | | CENTER - | | | | | | LABORATORY | | + + + + + + | RBC | 3.81 (L) | 4.30 - 5.70 | [facility] | | | | | M/uL | [facility] | | | | | | MEDICAL | | | | | | CENTER - | | | | | | LABORATORY | | + + + + + + | Hemoglobin | 11.7 (L) | 13.5 - 18.0 | [facility] | | | | | g/dL | [facility] | | | | | | MEDICAL | | | | | | CENTER - | | | | | | LABORATORY | | + + + + + + | Hematocrit | 36.4 (L) | 40.0 - 51.0 % | [facility] | | | | | | [facility] | | | | | | MEDICAL | | | | | | CENTER - | | | | | | LABORATORY | | + + + + + + | MCV | 95.5 | 83.0 - 101.0 fL | [facility] | | | | | | [facility] | | | | | | MEDICAL | | | | | | CENTER - | | | | | | LABORATORY | | + + + + + + | MCH | 30.7 | 28.0 - 35.0 pg | [facility] | | | | | | [facility] | | | | | | MEDICAL | | | | | | CENTER - | | | | | | LABORATORY | | + + + + + + | MCHC | 32.1 | 32.0 - 36.0 | [facility] | | | | | g/dL | [facility] | | | | | | MEDICAL | | | | | | CENTER - | | | | | | LABORATORY | | + + + + + + | RDW-CV | 14.6 | <15.0 % | [facility] | | | | | | [facility] | | | | | | MEDICAL | | | | | | CENTER - | | | | | | LABORATORY | | + + + + + + | RDW-SD | 50.6 (H) | 35.1 - 46.3 fL | [facility] | | | | | | [facility] | | | | | | MEDICAL | | | | | | CENTER - | | | | | | LABORATORY | | + + + + + + | Platelet | 206 | 140 - 440 K/uL | [facility] | | | Count | | | [facility] | | | | | | MEDICAL | | | | | | CENTER - | | | | | | LABORATORY | | + + + + + + | MPV | 10.0 | 6.5 - 12.4 fL | [facility] | | | | | | [facility] | | | | | | MEDICAL | | | | | | CENTER - | | | | | | LABORATORY | | + + + + + + | % nRBC | 0 | 0 - 2 per 100 | [facility] | | | | | WBCs | [facility] | | | | | | MEDICAL | | | | | | CENTER - | | | | | | LABORATORY | | + + + + + + | Absolute | 0.00 | 0.00 - 0.01 | [facility] | | | nRBC | | K/uL | [facility] | | | | | | MEDICAL | | | | | | CENTER - | | | | | | LABORATORY | | + + + + + + + + | Specimen | + + | Blood | + + + + + + + | Performing | Address | City/State/Zipcode | Phone Number | | Organization | | | | + + + + + | [facility] | [address] | [place] | [phone] | | [facility] | | [address] | | | - LABORATORY | | | | + + + + + POC Glucose (09/24/2019 9:26 PM PST) + +---------+ + + + | Component | Value | Ref Range | Performed | Pathologist | | | | | At | Signature | + +---------+ + + + | Glucose, | 140 (H) | 70 - 109 mg/dL | [facility] | | | POC | | | [facility] | | | | | | MEDICAL | | | | | | CENTER - | | | | | | LABORATORY | | + +---------+ + + + + + | Specimen | + + | Blood | + + + + + + + | Performing | Address | City/State/Zipcode | Phone Number | | Organization | | | | + + + + + | [facility] | [address] | [place], [place] | [phone] | | [facility] | | [address] | | | - LABORATORY | | | | + + + + + POC Glucose (09/24/2019 5:05 PM PST) + +---------+ + + + | Component | Value | Ref Range | Performed | Pathologist | | | | | At | Signature | + +---------+ + + + | Glucose, | 157 (H) | 70 - 109 mg/dL | [facility] | | | POC | | | [facility] | | | | | | MEDICAL | | | | | | CENTER - | | | | | | LABORATORY | | + +---------+ + + + + + | Specimen | + + | Blood | + + + + + + + | Performing | Address | City/State[facility] | Phone Number | | Organization | | | | + + + + + | [facility] | [address] | [place] | [phone] | | [facility] | | [id number] | | | - LABORATORY | | | | + + + + + Clostridioides difficile NAAT Reflex (09/24/2019 3:34 PM PST) + + + + + + | Component | Value | Ref Range | Performed | Pathologist | | | | | At | Signature | + + + + + + | C. | NegativeComment: No | Negative | [facility] | | | difficile, | Toxigenic C. difficile | | [facility] | | | Interp | detected. Consider other | | MEDICAL | | | | causes of Diarrhea. | | CENTER - | | | | Repeat testing should | | LABORATORY | | | | not be performed within | | | | | | 7 days. | | | | + + + + + + | C. | Negative | | [facility] | | | difficile, | | | [facility] | | | NAAT | | | MEDICAL | | | | | | CENTER - | | | | | | LABORATORY | | + + + + + + + + | Specimen | + + | Stool - Stool | | specimen (specimen) | + + + + + + + | Performing | Address | City/State/Zipcode | Phone Number | | Organization | | | | + + + + + | [facility] | [address] | [place] | [phone] | | [facility] | | [address] | | | - LABORATORY | | | | + + + + + POC Glucose (09/24/2019 10:51 AM PST) + +---------+ + + + | Component | Value | Ref Range | Performed | Pathologist | | | | | At | Signature | + +---------+ + + + | Glucose, | 189 (H) | 70 - 109 mg/dL | [facility] | | | POC | | | [facility] | | | | | | [facility] | | | | | | [facility] - | | | | | | LABORATORY | | + +---------+ + + + + + | Specimen | + + | Blood | + + + + + + + | Performing | Address | City/State/Zipcode | Phone Number | | Organization | | | | + + + + + | [facility] | [address] | [place] | [phone] | | [facility] | | [address] | | | - LABORATORY | | | | + + + + + POC Glucose (09/24/2019 6:54 AM PST) + +---------+ + + + | Component | Value | Ref Range | Performed | Pathologist | | | | | At | Signature | + +---------+ + + + | Glucose, | 113 (H) | 70 - 109 mg/dL | [facility] | | | POC | | | [facility] | | | | | | [facility] | | | | | | CENTER - | | | | | | LABORATORY | | + +---------+ + + + + + | Specimen | + + | Blood | + + + + + + + | Performing | Address | City/State/Zipcode | Phone Number | | Organization | | | | + + + + + | [facility] | [address] | [place] | [phone] | | [facility] | | [address] | | | - LABORATORY | | | | + + + + + Renal Function Panel (09/24/2019 3:32 AM PST) + + + + + + | Component | Value | Ref Range | Performed | Pathologist | | | | | At | Signature | + + + + + + | Na | 136 | 136 - 145 | [facility] | | | | | mmol/L | [facility] | | | | | | MEDICAL | | | | | | CENTER - | | | | | | LABORATORY | | + + + + + + | K | 4.5 | 3.4 - 5.1 | [facility] | | | | | mmol/L | [facility] | | | | | | [facility] | | | | | | CENTER - | | | | | | LABORATORY | | + + + + + + | Cl | 97 (L) | 98 - 107 mmol/L | [facility] | | | | | | [facility] | | | | | | [facility] | | | | | | CENTER - | | | | | | LABORATORY | | + + + + + + | CO2 | 28 | 20 - 31 mmol/L | [facility] | | | | | | [facility] | | | | | | [facility] | | | | | | CENTER - | | | | | | LABORATORY | | + + + + + + | Anion Gap | 11 | 3 - 16 mmol/L | [facility] | | | | | | [facility] | | | | | | [facility] | | | | | | CENTER - | | | | | | LABORATORY | | + + + + + + | Glucose | 141 (H) | 60 - 106 mg/dL | [facility] | | | | | | [facility] | | [facility] | | | [facility] | | | | | | CENTER - | | | | | | LABORATORY | | + + + + + + | BUN | 43 (H) | 9 - 23 mg/dL | [facility] | | | | | | [facility] | | | | | | [facility] | | | | | | CENTER - | | | | | | LABORATORY | | + + + + + + | Creatinine | 7.38 (H) | 0.70 - 1.30 | [facility] | | | | | mg/dL | [facility] | | | | | | MEDICAL | | | | | | CENTER - | | | | | | LABORATORY | | + + + + + + | eGFR if not | 8 (L)Comment: GLOMERULAR | >=60 | [facility] | | | | FILTRATION | mL/min/1.73m2 | [facility] | | | [facility] | RATE,ESTIMATED | | MEDICAL | | | | mL/min/1.10k6Frnp than | | CENTER - | | | | 60 Chronic kidney | | LABORATORY | | | | disease,if found over a | | | | | | 3-month period.Less than | | | | | | 15 Kidney failureFor | | | | | | | | | | | | Americans,multiply the | | | | | | calculated GFR by 1.21. | | | | | | | | | | + + + + + + | Calcium | 8.2 (L) | 8.7 - 10.4 | [facility] | | | | | mg/dL | [facility] | | | | | | [facility] | | | | | | CENTER - | | | | | | LABORATORY | | + + + + + + | Albumin | 3.4 | 3.2 - 4.8 g/dL | [facility] | [facility] | [facility] | | | | | | C[facility] - | | | | | | LABORATORY | | + + + + + + | Phosphorus | 5.3 (H) | 2.4 - 5.1 mg/dL | [facility] | | | | | | [facility] | | | | | | MEDICAL | | | | | | CENTER - | | | | | | LABORATORY | | + + + + + + | BUN/Creatin | 5.8 | | [facility] | | | ine Ratio | | | [facility] | | | | | | MEDICAL | | | | | | CENTER - | | | | | | LABORATORY | | + + + + + + + + | Specimen | + + | Blood | + + + + + + + | Performing | Address | City/State/Zipcode | Phone Number | | Organization | | | | + + + + + | [facility] | [address] | [place] | [phone] | | [facility] | | [address] | | | - LABORATORY | | | | + + + + + CBC with Differential (09/24/2019 3:32 AM PST) + + + + + + | Component | Value | Ref Range | Performed | Pathologist | | | | | At | Signature | + + + + + + | WBC | 10.2 | 4.0 - 11.0 K/uL | [facility] | | | | | | [facility] | | | | | | MEDICAL | | | | | | CENTER - | | | | | | LABORATORY | | + + + + + + | RBC | 3.39 (L) | 4.30 - 5.70 | [facility] | | | | | M/uL | [facility] | | | | | | MEDICAL | | | | | | CENTER - | | | | | | LABORATORY | | + + + + + + | Hemoglobin | 10.6 (L) | 13.5 - 18.0 | [facility] | | | | | g/dL | [facility] | | | | | | MEDICAL | | | | | | CENTER - | | | | | | LABORATORY | | + + + + + + | Hematocrit | 32.9 (L) | 40.0 - 51.0 % | [facility] | | | | | | [facility] | | | | | | [facility] | | | | | | CENTER - | | | | | | LABORATORY | | + + + + + + | MCV | 97.1 | 83.0 - 101.0 fL | [facility] | | | | | | [facility] | | | | | | MEDICAL | | | | | | CENTER - | | | | | | LABORATORY | | + + + + + + | MCH | 31.3 | 28.0 - 35.0 pg | [facility] | | | | | | [facility] | | | | | | MEDICAL | | | | | | CENTER - | | | | | | LABORATORY | | + + + + + + | MCHC | 32.2 | 32.0 - 36.0 | [facility] | | | | | g/dL | [facility] | | | | | | MEDICAL | | | | | | CENTER - | | | | | | LABORATORY | | + + + + + + | RDW-CV | 14.7 | <15.0 % | [facility] | | | | | | [facility] | | | | | | MEDICAL | | | | | | CENTER - | | | | | | LABORATORY | | + + + + + + | RDW-SD | 52.2 (H) | 35.1 - 46.3 fL | [facility] | | | | | | [facility] | | | | | | MEDICAL | | | | | | CENTER - | | | | | | LABORATORY | | + + + + + + | Platelet | 188 | 140 - 440 K/uL | [facility] | | | Count | | | [facility] | | [facility] | | | MEDICAL | | | | | | CENTER - | | | | | | LABORATORY | | + + + + + + | MPV | 10.2 | 6.5 - 12.4 fL | [facility] | | | | | | [facility] | | | | | | MEDICAL | | | | | | CENTER - | | | | | | LABORATORY | | + + + + + + | % | 75.3 | 45.0 - 82.0 % | [facility] | | | Neutrophils | | | [facility] | | | | | | MEDICAL | | | | | | CENTER - | | | | | | LABORATORY | | + + + + + + | % | 14.2 (L) | 20.0 - 45.0 % | [facility] | | | Lymphocytes | | | [facility] | | | | | | MEDICAL | | | | | | CENTER - | | | | | | LABORATORY | | + + + + + + | % Monocytes | 8.1 | 4.0 - 12.0 % | [facility] | | | | | | [facility] | | | | | | MEDICAL | | | | | | CENTER - | | | | | | LABORATORY | | + + + + + + | % | 1.5 | 0.0 - 5.0 % | [facility] | | | Eosinophils | | | [facility] | | | | | | MEDICAL | | | | | | CENTER - | | | | | | LABORATORY | | + + + + + + | % Basophils | 0.7 | 0.0 - 1.0 % | [facility] | | | | | | [facility] | | | | | | MEDICAL | | | | | | CENTER - | | | | | | LABORATORY | | + + + + + + | % Immature | 0.2 | 0.0 - 0.4 % | [facility] | | | Granulocyte | | | [facility] | | | s | | | MEDICAL | | | | | | CENTER - | | | | | | LABORATORY | | + + + + + + | Absolute | 7.67 | 1.80 - 8.50 | [facility] | | | Neutrophils | | K/uL | [facility] | | | | | | MEDICAL | | | | | | CENTER - | | | | | | LABORATORY | | + + + + + + | Absolute | 1.45 | 0.60 - 3.20 | [facility] | | | Lymphocytes | | K/uL | [facility] | | | | | | MEDICAL | | | | | | CENTER - | | | | | | LABORATORY | | + + + + + + | Absolute | 0.83 | 0.00 - 1.00 | [facility] | | | Monocytes | | K/uL | [facility] | | | | | | MEDICAL | | | | | | CENTER - | | | | | | LABORATORY | | + + + + + + | Absolute | 0.15 | 0.00 - 0.40 | [facility] | | | Eosinophils | | K/uL | [facility] | | | | | | MEDICAL | | | | | | CENTER - | | | | | | LABORATORY | | + + + + + + | Absolute | 0.07 | 0.00 - 0.10 | [facility] | | | Basophils | | K/uL | [facility] | | | | | | MEDICAL | | | | | | CENTER - | | | | | | LABORATORY | | + + + + + + | Absolute | 0.02 | 0.00 - 0.03 | [facility] | | | Immature | | K/uL | [facility] | | | Granulocyte | | | MEDICAL | | | s | | | CENTER - | | | | | | LABORATORY | | + + + + + + | % nRBC | 0 | 0 - 2 per 100 | [facility] | | | | | WBCs | [facility] | | | [facility] | | MEDICAL | | | | | | CENTER - | | | | | | LABORATORY | | + + + + + + | Absolute | 0.00 | 0.00 - 0.01 | [facility] | | | nRBC | | K/uL | [facility] | | | | | | MEDICAL | | | | | | CENTER - | | | | | | LABORATORY | | + + + + + + + + | Specimen | + + | Blood | + + + + + + + | Performing | Address | City/State/Zipcode | Phone Number | | Organization | | | | + + + + + | [facility] | [address] | [place] | [phone] | | [facility] | | [address] | | | - LABORATORY | | | | + + + + + POC Glucose (09/23/2019 8:27 PM PST) + +---------+ + + + | Component | Value | Ref Range | Performed | Pathologist | | | | | At | Signature | + +---------+ + + + | Glucose, | 158 (H) | 70 - 109 mg/dL | [facility] | | | POC | | | [facility] | | | | | | MEDICAL | | | | | | CENTER - | | | | | | LABORATORY | | + +---------+ + + + + + | Specimen | + + | Blood | + + + + + + + | Performing | Address | City/State/Zipcode | Phone Number | | Organization | | | | + + + + + | [facility] | [address] | [place] | [phone] | | [facility] | | [address] | | | - LABORATORY | | | | + + + + + POC Glucose (09/23/2019 5:09 PM PST) + +---------+ + + + | Component | Value | Ref Range | Performed | Pathologist | | | | | At | Signature | + +---------+ + + + | Glucose, | 117 (H) | 70 - 109 mg/dL | [facility] | | | POC | | | [facility] | | | | | | MEDICAL | | | | | | CENTER - | | | | | | LABORATORY | | + +---------+ + + + + + | Specimen | + + | Blood | + + + + + + + | Performing | Address | City/State/Zipcode | Phone Number | | Organization | | | | + + + + + | [facility] | [address] | [place] | [phone] | | [facility] | | [address] | | | - LABORATORY | | | | + + + + + POC Glucose (09/23/2019 11:52 AM PST) + +---------+ + + + | Component | Value | Ref Range | Performed | Pathologist | | | | | At | Signature | + +---------+ + + + | Glucose, | 126 (H) | 70 - 109 mg/dL | [facility] | | | POC | | | [facility] | | | | | | MEDICAL | | | | | | CENTER - | | | | | | LABORATORY | | + +---------+ + + + + + | Specimen | + + | Blood | + + + + + + + | Performing | Address | City/State/Zipcode | Phone Number | | Organization | | | | + + + + + | [facility] | [address] | [place] | [phone] | | [facility] | | [address] | | | - LABORATORY | | | | + + + + + Magnesium (09/23/2019 10:33 AM PST) + +-------+ + + + | Component | Value | Ref Range | Performed | Pathologist | | | | | At | Signature | + +-------+ + + + | Magnesium | 1.8 | 1.6 - 2.6 mg/dL | [facility] | | | | | | [facility] | | | | | | MEDICAL | | | | | | CENTER - | | | | | | LABORATORY | | + +-------+ + + + + + | Specimen | + + | Blood | + + + + + + + | Performing | Address | City/State/Zipcode | Phone Number | | Organization | | | | + + + + + | [facility] | [address] | [place] | [phone] | | [facility] | | [address] | | | - LABORATORY | | | | + + + + + Hepatitis B Surface Ag (09/23/2019 10:33 AM PST) + + + + + + | Component | Value | Ref Range | Performed | Pathologist | | | | | At | Signature | + + + + + + | Hepatitis B | Negative | Negative | [facility] | | | Surface Ag | | | LAB [facility] | | | | | | - [facility] | | + + + + + + + + | Specimen | + + | Blood | + + + + + | Narrative | Performed At | + + + | Performed at: [address] [facility] [address], | [facility] | | [place], [place] [id number] Spooler Operator Automatic: Darin Odom MD, Phone: | [facility] | | [phone] | | + + + + + + + + | Performing | Address | City/State/Zipcode | Phone Number | | Organization | | | | + + + + + | [facility] | [address] | [place], [place] | [phone] | | [facility] | [facility] | [address] | | + + + + + XR Chest PA and Lateral (09/23/2019 8:05 AM PST) + + | Specimen | + + | | + + + + + | Impressions | Performed At | + + + | Lower lobe infiltrate. Dictated and Signed by: Sandro Carrillo [facility] | | MD Arik Electronically signed: 09/23/2019 8:32 AM | | + + + + + + | Narrative | Performed At | + + + | EXAM: XR CHEST PA AND LATERAL dated 09/23/2019 8:05 AM HISTORY: | [facility] | | eval for pneumonia Comparison: None. TECHNIQUE: Frontal and | | | lateral views of the chest. FINDINGS: The lungs are | | | symmetrically aerated. Increased opacity of the left lower lobe. | | | Prominence of the pulmonary vasculature. There are no pleural | | | effusions. There is no pneumothorax. Mild cardiomegaly. The | | | visible osseous structures are unremarkable. | | + + + + + | Procedure Note | + + | Kana, Rad Results In - 09/23/2019 8:35 AM PST EXAM: XR CHEST PA AND LATERAL dated | | 09/23/2019 8:05 AMHISTORY: eval for pneumoniaComparison: None. TECHNIQUE: Frontal and | | lateral views of the chest.FINDINGS:The lungs are symmetrically aerated. Increased | | opacity of the left lower lobe. Prominence of the pulmonary vasculature. There are no | | pleural effusions. Thereis no pneumothorax. Mild cardiomegaly. The visible osseous | | structures areunremarkable. IMPRESSION: Lower lobe infiltrate. Dictated and Signed by: | | Sandro Elise MD Electronically signed: 09/23/2019 8:32 AM | | | |FINDINGS: | |The lungs are symmetrically aerated. Increased opacity of the left lower lobe. | |Prominence of the pulmonary vasculature. There are no pleural effusions. There | |is no pneumothorax. Mild cardiomegaly. The visible osseous structures are | |unremarkable. | | | |IMPRESSION: | | | |Lower lobe infiltrate. | | | |Dictated and Signed by: Sandro Elise MD | | Electronically signed: 09/23/2019 8:32 AM | + + + +---------+ + + | Performing | Address | City/State/Zipcode | Phone Number | | Organization | | | | + +---------+ + + | [facility] | | | | + +---------+ + + POC Glucose (09/23/2019 7:07 AM PST) + +---------+ + + + | Component | Value | Ref Range | Performed | Pathologist | | | | | At | Signature | + +---------+ + + + | Glucose, | 117 (H) | 70 - 109 mg/dL | [facility] | | | POC | | | [facility] | | | | | | MEDICAL | | | | | | CENTER - | | | | | | LABORATORY | | + +---------+ + + + + + | Specimen | + + | Blood | + + + + + + + | Performing | Address | City/State/Zipcode | Phone Number | | Organization | | | | + + + + + | [facility] | [address] | [place] | [phone] | | [facility] | | [address] | | | - LABORATORY | | | | + + + + + ECG 12 lead (09/23/2019 5:56 AM PST) + + + + + + | Component | Value | Ref Range | Performed | Pathologist | | | | | At | Signature | + + + + + + | VENTRICULAR | 82 | BPM | [facility] | | | RATE EKG | | | | | + + + + + + | QRS | 94 | ms | [facility] | | | DURATION | | | | | + + + + + + | Q-T | 454 | ms | [facility] | | | INTERVAL | | | | | + + + + + + | Q-T | 530 | ms | [facility] | | | INTERVAL | | | | | | (CORRECTED) | | | | | + + + + + + | QRS AXIS | 42 | degrees | [facility] | | + + + + + + | T AXIS | 135 | degrees | [facility] | | + + + + + + | INTERPRETAT | Atrial | | [facility] | | | ION TEXT | fibrillationNonspecific | | | | | | T wave abnormality | | | | | | Lateral leadsProlonged | | | | | | QTAbnormal ECGWhen | | | | | | compared with ECG of | | | | | | 08-SEP-2018 13:30,Atrial | | | | | | fibrillation has | | | | | | replaced Atrial | | | | | | flutterNonspecific T | | | | | | wave abnormality no | | | | | | longer evident in | | | | | | Inferior leadsConfirmed | | | | | | by ELEANOR JEONG MD | | | | | | ([id number]) on 09/23/2019 | | | | | | 6:18:42 AM | | | | + + + + + + + + | Specimen | + + | | + + + + + | Narrative | Performed At | + + + | | | + + + + +---------+ + + | Performing | Address | City/State/Zipcode | Phone Number | | Organization | | | | + +---------+ + + | [facility] | | | | + +---------+ + + Magnesium (09/23/2019 4:09 AM PST) + +-------+ + + + | Component | Value | Ref Range | Performed | Pathologist | | | | | At | Signature | + +-------+ + + + | Magnesium | 1.8 | 1.6 - 2.6 mg/dL | [facility] | | | | | | [facility] | | | | | | MEDICAL | | | | | | CENTER - | | | | | | LABORATORY | | + +-------+ + + + + + | Specimen | + + | Blood | + + + + + + + | Performing | Address | City/State/Zipcode | Phone Number | | Organization | | | | + + + + + | [facility] | [address] | [place], [place] | [phone] | | [facility] | | [address] | | | - LABORATORY | | | | + + + + + Comprehensive Metabolic Panel (09/23/2019 4:09 AM PST) + + + + + + | Component | Value | Ref Range | Performed | Pathologist | | | | | At | Signature | + + + + + + | Na | 135 (L) | 136 - 145 | [facility] | | | | | mmol/L | [facility] | | | | | | MEDICAL | | | | | | CENTER - | | | | | | LABORATORY | | + + + + + + | K | 4.5 | 3.4 - 5.1 | [facility] | | | | | mmol/L | [facility] | | | | | | MEDICAL | | | | | | CENTER - | | | | | | LABORATORY | | + + + + + + | Cl | 93 (L) | 98 - 107 mmol/L | [facility] | | | | | | [facility] | | | | | | MEDICAL | | | | | | CENTER - | | | | | | LABORATORY | | + + + + + + | CO2 | 30 | 20 - 31 mmol/L | [facility] | | | | | | [facility] | | | | | | MEDICAL | | | | | | CENTER - | | | | | | LABORATORY | | + + + + + + | Anion Gap | 12 | 3 - 16 mmol/L | [facility] | | | | | | [facility] | | | | | | MEDICAL | | | | | | CENTER - | | | | | | LABORATORY | | + + + + + + | Glucose | 119 (H) | 60 - 106 mg/dL | [facility] | | | | | | [facility] | | | | | | MEDICAL | | | | | | CENTER - | | | | | | LABORATORY | | + + + + + + | BUN | 48 (H) | 9 - 23 mg/dL | [facility] | | | | | | [facility] | | | | | | MEDICAL | | | | | | CENTER - | | | | | | LABORATORY | | + + + + + + | Creatinine | 8.89 (HH)Comment: | 0.70 - 1.30 | [facility] | | | | Critical Result called | mg/dL | [facility] | | | | to and read back by | | MEDICAL | | | | Laura Calvo RN on | | CENTER - | | | | 09/23/2019 at 4:53 AM by | | LABORATORY | | | | Roderick Doyle. | | | | + + + + + + | eGFR if not | 6 (L) | >=60 | [facility] | | | | | mL/min/1.73m2 | [facility] | | | [facility] | | | MEDICAL | | | | | | CENTER - | | | | | | LABORATORY | | + + + + + + | Calcium | 8.0 (L) | 8.7 - 10.4 | [facility] | | | | | mg/dL | [facility] | | | | | | MEDICAL | | | | | | CENTER - | | | | | | LABORATORY | | + + + + + + | Albumin | 3.5 | 3.2 - 4.8 g/dL | [facility] | | | | | | [facility] | | | | | | MEDICAL | | | | | | CENTER - | | | | | | LABORATORY | | + + + + + + | Bilirubin | 1.0 | 0.3 - 1.2 mg/dL | [facility] | | | Total | | | [facility] | | | | | | MEDICAL | | | | | | CENTER - | | | | | | LABORATORY | | + + + + + + | Total | 7.4 | 5.7 - 8.2 g/dL | [facility] | | | Protein | | | [facility] | | | | | | MEDICAL | | | | | | CENTER - | | | | | | LABORATORY | | + + + + + + | AST | 20 | 0 - 34 U/L | [facility] | | | | | | [facility] | | | | | | MEDICAL | | | | | | CENTER - | | | | | | LABORATORY | | + + + + + + | ALT | <7 (L) | 10 - 49 U/L | [facility] | | | | | | [facility] | | | | | | MEDICAL | | | | | | CENTER - | | | | | | LABORATORY | | + + + + + + | Alkaline | 149 (H) | 46 - 116 U/L | [facility] | | | Phosphatase | | | [facility] | | | | | | MEDICAL | | | | | | CENTER - | | | | | | LABORATORY | | + + + + + + | Globulin | 3.9 (H) | 2.1 - 3.8 g/dL | [facility] | | | | | | [facility] | | | | | | MEDICAL | | | | | | CENTER - | | | | | | LABORATORY | | + + + + + + | Albumin/Ofelia | 0.9 | 0.8 - 1.9 | [facility] | | | bulin Ratio | | | [facility] | | | | | | MEDICAL | | | | | | CENTER - | | | | | | LABORATORY | | + + + + + + | BUN/Creatin | 5.4 | | [facility] | | | ine Ratio | | | [facility] | | | | | | MEDICAL | | | | | | CENTER - | | | | | | LABORATORY | | + + + + + + + + | Specimen | + + | Blood | + + + + + + + | Performing | Address | City/State/Zipcode | Phone Number | | Organization | | | | + + + + + | [facility] | [address] | [place] | [phone] | | [facility] | | [address] | | | - LABORATORY | | | | + + + + + CBC with Differential (09/23/2019 4:09 AM PST) + + + + + + | Component | Value | Ref Range | Performed | Pathologist | | | | | At | Signature | + + + + + + | WBC | 17.8 (H) | 4.0 - 11.0 K/uL | [facility] | | | | | | [facility] | | | | | | MEDICAL | | | | | | CENTER - | | | | | | LABORATORY | | + + + + + + | RBC | 3.58 (L) | 4.30 - 5.70 | [facility] | | | | | M/uL | [facility] | | | | | | MEDICAL | | | | | | CENTER - | | | | | | LABORATORY | | + + + + + + | Hemoglobin | 11.0 (L) | 13.5 - 18.0 | [facility] | | | | | g/dL | [facility] | | | | | | MEDICAL | | | | | | CENTER - | | | | | | LABORATORY | | + + + + + + | Hematocrit | 34.3 (L) | 40.0 - 51.0 % | [facility] | | | | | | [facility] | | | | | | MEDICAL | | | | | | CENTER - | | | | | | LABORATORY | | + + + + + + | MCV | 95.8 | 83.0 - 101.0 fL | [facility] | | | | | | [facility] | | | | | | MEDICAL | | | | | | CENTER - | | | | | | LABORATORY | | + + + + + + | MCH | 30.7 | 28.0 - 35.0 pg | [facility] | | | | | | [facility] | | | | | | MEDICAL | | | | | | CENTER - | | | | | | LABORATORY | | + + + + + + | MCHC | 32.1 | 32.0 - 36.0 | [facility] | | | | | g/dL | [facility] | | | | | | [facility]ICAL | | | | | | CENTER - | | | | | | LABORATORY | | + + + + + + | RDW-CV | 14.7 | <15.0 % | [facility] | | | | | | [facility] | | | | | | [facility] | | | | | | CENTER - | | | | | | LABORATORY | | + + + + + + | RDW-SD | 51.6 (H) | 35.1 - 46.3 fL | [facility] | | | | | | [facility] | | | | | | [facility] | | | | | | C[facility] - | | | | | | LABORATORY | | + + + + + + | Platelet | 189 | 140 - 440 K/uL | [facility] | | | Count | | | [facility] | | | | | | [facility] | | | | | | CENTER - | | | | | | LABORATORY | | + + + + + + | MPV | 9.7 | 6.5 - 12.4 fL | [facility] | | | | | | [facility] | | | | | | [facility] | | | | | | C[facility] - | | | | | | LABORATORY | | + + + + + + | % | 85.7 (H) | 45.0 - 82.0 % | [facility] | | | Neutrophils | | | [facility] | | | | | | MEDICAL | | | | | | CENTER - | | | | | | LABORATORY | | + + + + + + | % | 7.7 (L) | 20.0 - 45.0 % | [facility] | | | Lymphocytes | | | [facility] | | | | | | MEDICAL | | | | | | CENTER - | | | | | | LABORATORY | | + + + + + + | % Monocytes | 5.7 | 4.0 - 12.0 % | [facility] | | | | | | [facility] | | | | | | [facility] | | | | | | C[facility] - | | | | | | LABORATORY | | + + + + + + | % | 0.1 | 0.0 - 5.0 % | [facility] | | | Eosinophils | | | [facility] | | | | | | MEDICAL | | | | | | CENTER - | | | | | | LABORATORY | | + + + + + + | % Basophils | 0.4 | 0.0 - 1.0 % | [facility] | | | | | | [facility] | | | | | | [facility] | | | | | | CENTER - | | | | | | LABORATORY | | + + + + + + | % Immature | 0.4 | 0.0 - 0.4 % | [facility] | | | Granulocyte | | | [facility] | | | s | | | MEDICAL | | | | | | CENTER - | | | | | | LABORATORY | | + + + + + + | Absolute | 15.22 (H) | 1.80 - 8.50 | [facility] | | | Neutrophils | | K/uL | [facility] | | | | | | [facility] | | | | | | CENTER - | | | | | | LABORATORY | | + + + + + + | Absolute | 1.37 | 0.60 - 3.20 | [facility] | | | Lymphocytes | | K/uL | [facility] | | | | | | [facility]ICAL | | | | | | CENTER - | | | | | | LABORATORY | | + + + + + + | Absolute | 1.01 (H) | 0.00 - 1.00 | [facility] | | | Monocytes | | K/uL | [facility] | | | | | | [facility] | | | | | | CENTER - | | | | | | LABORATORY | | + + + + + + | Absolute | 0.02 | 0.00 - 0.40 | [facility] | | | Eosinophils | | K/uL | [facility] | | | | | | [facility]ICAL | | | | | | CENTER - | | | | | | LABORATORY | | + + + + + + | Absolute | 0.08 | 0.00 - 0.10 | [facility] | | | Basophils | | K/uL | [facility] | | | | | | MEDICAL | | | | | | CENTER - | | | | | | LABORATORY | | + + + + + + | Absolute | 0.08 (H) | 0.00 - 0.03 | [facility] | | | Immature | | K/uL | [facility] | | | Granulocyte | | | MEDICAL | | | s | | | CENTER - | | | | | | LABORATORY | | + + + + + + | % nRBC | 0 | 0 - 2 per 100 | [facility] | | | | | WBCs | [facility] | | | | | | MEDICAL | | | | | | CENTER - | | | | | | LABORATORY | | + + + + + + | Absolute | 0.00 | 0.00 - 0.01 | [facility] | | | nRBC | | K/uL | [facility] | | | | | | MEDICAL | | | | | | CENTER - | | | | | | LABORATORY | | + + + + + + + + | Specimen | + + | Blood | + + + + + + + | Performing | Address | City/State/Zipcode | Phone Number | | Organization | | | | + + + + + | [facility] | [address] | [place] | [phone] | | [facility] | | [id number] | | | - LABORATORY | | | | + + + + + POC Glucose (09/23/2019 12:21 AM PST) + +---------+ + + + | Component | Value | Ref Range | Performed | Pathologist | | | | | At | Signature | + +---------+ + + + | Glucose, | 141 (H) | 70 - 109 mg/dL | [facility] | | | POC | | | [facility] | | | | | | MEDICAL | | | | | | CENTER - | | | | | | LABORATORY | | + +---------+ + + + + + | Specimen | + + | Blood | + + + + + + + | Performing | Address | City/State/Zipcode | Phone Number | | Organization | | | | + + + + + | [facility] | [address] | [place] | [phone] | | [facility] | | [address] | | | - LABORATORY | | | | + + + + + Culture, Blood (09/23/2019 12:08 AM PST) + + + + + + | Component | Value | Ref Range | Performed | Pathologist | | | | | At | Signature | + + + + + + | Culture | No growth after 5 days | | [facility] | | | | incubation. | | [facility] | | | | | | [facility] | | | | | | [facility] - | | | | | | LABORATORY | | + + + + + + + + | Specimen | + + | Blood - Peripheral | | blood specimen | | (specimen) | + + + + + + + | Performing | Address | City/State/Zipcode | Phone Number | | Organization | | | | + + + + + | [facility] | [address] | [place] | [phone] | | [facility] | | [address] | | | - LABORATORY | | | | + + + + + Respiratory pathogen panel, NAAT (09/23/2019 12:00 AM PST) + + + + + + | Component | Value | Ref Range | Performed | Pathologist | | | | | At | Signature | + + + + + + | Parainfluen | Not Detected | Not Detected | [facility] | | | za 1 | | | [facility] | | | | | | [facility]ICAL | | | | | | CENTER - | | | | | | LABORATORY | | + + + + + + | Adenovirus | Not Detected | Not Detected | [facility] | | | | | | [facility] | | | | | | [facility] | | | | | | CENTER - | | | | | | LABORATORY | | + + + + + + | Human | Not Detected | Not Detected | [facility] | | | Metapneumov | | | [facility] | | | irus | | | MEDICAL | | | | | | CENTER - | | | | | | LABORATORY | | + + + + + + | Rhinovirus/ | Not Detected | Not Detected | [facility] | | | Enterovirus | | | [facility] | | | | | | [facility] | | | | | | CENTER - | | | | | | LABORATORY | | + + + + + + | Parainfluen | Not Detected | Not Detected | [facility] | | | za 3 | | | [facility] | | | | | | [facility]ICAL | | | | | | CENTER - | | | | | | LABORATORY | | + + + + + + + + | Specimen | + + | Tissue - Entire | | nasopharynx (body | | structure) | + + + + + + + | Performing | Address | City/State/Zipcode | Phone Number | | Organization | | | | + + + + + | [facility] | [address] | [place] | [phone] | | [facility] | | [address] | | | - LABORATORY | | | | + + + + + Influenza A and B RNA, NAAT (09/23/2019 12:00 AM PST) + + + + + + | Component | Value | Ref Range | Performed | Pathologist | | | | | At | Signature | + + + + + + | Influenza A | Negative | Negative, Test | [facility] | | | PCR | | not performed | [facility] | | | | | | [facility]ICAL | | | | | | CENTER - | | | | | | LABORATORY | | + + + + + + | Influenza B | Negative | Negative, Test | [facility] | | | PCR | | not performed | [facility] | | | | | | [facility] | | | | | | CENTER - | | | | | | LABORATORY | | + + + + + + + + | Specimen | + + | Tissue - Entire | | nasopharynx (body | | structure) | + + + + + + + | Performing | Address | City/State/Zipcode | Phone Number | | Organization | | | | + + + + + | [facility] | [address] | [place] | [phone] | | [facility] | | [address] | | | - LABORATORY | | | | + + + + + Culture, Blood (09/22/2019 11:59 PM PST) + + + + + + | Component | Value | Ref Range | Performed | Pathologist | | | | | At | Signature | + + + + + + | Culture | No growth after 5 days | | [facility] | | | | incubation. | | [facility] | | | | | | [facility] | | | | | | CENTER - | | | | | | LABORATORY | | + + + + + + + + | Specimen | + + | Blood - Peripheral | | blood specimen | | (specimen) | + + + + + + + | Performing | Address | City/State/Zipcode | Phone Number | | Organization | | | | + + + + + | [facility] | [address] | [place] | [phone] | | [facility] | | [address] | | | - LABORATORY | | | | + + + + + Lactic Acid (09/22/2019 11:43 PM PST) + +-------+ + + + | Component | Value | Ref Range | Performed | Pathologist | | | | | At | Signature | + +-------+ + + + | Lactate | 2.2 | 0.5 - 2.2 | [facility] | | | | | mmol/L | [facility] | | | | | | MEDICAL | | | | | | CENTER - | | | | | | LABORATORY | | + +-------+ + + + + + | Specimen | + + | Blood | + + + + + + + | Performing | Address | City/State/Zipcode | Phone Number | | Organization | | | | + + + + + | [facility] | [address] | [place] | [phone] | | [facility] | | [address] | | | - LABORATORY | | | | + + + + + Procalcitonin (09/22/2019 11:43 PM PST) + + + + + + | Component | Value | Ref Range | Performed | Pathologist | | | | | At | Signature | + + + + + + | Procalciton | 5.26 ()Comment: | <=0.50 ng/mL | [facility] | | | in | Critical Result called | | [facility] | | | | to and read back by | | MEDICAL | | | | Laura Calvo RN on | | CENTER - | | | | 09/23/2019 at 12:33 AM | | LABORATORY | | | | by Roderick Doyle. | | | | + + + + + + | Comment | Comment: < 0.50 | | [facility] | | | | ng/mL:Procalcitonin | | [facility] | | | | levels below 0.50 ng/mL | | MEDICAL | | | | on the first day of | | CENTER - | | | | admission represents a | | LABORATORY | | | | low risk for progression | | | | | | to severe sepsis and/or | | | | | | septic shock, however | | | | | | these do not exclude an | | | | | | infection, because | | | | | | localized infections | | | | | | (without systemic signs) | | | | | | may also be associated | | | | | | with such low levels. | | | | | | > 2.00 | | | | | | ng/mL:Procalcitonin | | | | | | levels above 2.00 ng/mL | | | | | | on the first day of | | | | | | admission represents a | | | | | | high risk for | | | | | | progression to severe | | | | | | sepsis and/or septic | | | | | | shock. If the | | | | | | procalcitonin | | | | | | measurement is performed | | | | | | shortly after the | | | | | | systemic infection | | | | | | process has started | | | | | | (usually less than 6 | | | | | | hours), these values may | | | | | | still be low. As | | | | | | various non-infectious | | | | | | conditions are known to | | | | | | induce procalcitonin as | | | | | | well, procalcitonin | | | | | | levels between 0.50 | | | | | | ng/mL and 2.00 ng/mL | | | | | | should be reviewed | | | | | | carefully to take into | | | | | | account the specific | | | | | | clinical background and | | | | | | condition(s) of the | | | | | | individual patient. | | | | + + + + + + + + | Specimen | + + | Blood | + + + + + + + | Performing | Address | City/State/Zipcode | Phone Number | | Organization | | | | + + + + + | [facility] | [address] | [place] | [phone] | | [facility] | | [address] | | | - LABORATORY | | | | + + + + + Culture, MRSA (09/22/2019 11:22 PM PST) + + + + + + | Component | Value | Ref Range | Performed | Pathologist | | | | | At | Signature | + + + + + + | Culture | Negative for MRSA by | | [facility] | | | | chromogenic agar method. | | [facility] | | | | | | MEDICAL | | | | | | CENTER - | | | | | | LABORATORY | | + + + + + + + + | Specimen | + + | Tissue - Both | | anterior nares (body | | structure) | + + + + + + + | Performing | Address | City/State/Zipcode | Phone Number | | Organization | | | | + + + + + | [facility] | [address] | [place], [place] | [phone] | | [facility] | | [address] | | | - LABORATORY | | | | + + + + + LABS - EXTERNAL SCAN (09/22/2019 12:00 AM PST) + + + | Narrative | Performed At | + + + | Ordered by an | | | unspecified provider. | | + + + IMAGING REPORT - EXTERNAL SCAN (09/22/2019 12:00 AM PST) + + + | Narrative | Performed At | + + + | Ordered by an | | | unspecified provider. | | + + + ECG - EXTERNAL SCAN (09/22/2019 12:00 AM PST) + + + | Narrative | Performed At | + + + | Ordered by an | | | unspecified provider. | | + + + documented in this encounter Visit Diagnoses + + | Diagnosis | + + | Sepsis, due to unspecified organism, unspecified whether acute organ dysfunction | | present (HCC) | + + | Atrial fibrillation with RVR ([facility]) Atrial fibrillation | + + | End stage renal disease ([facility]) End stage renal disease | + + | Diabetic ulcer of left midfoot associated with type 2 diabetes mellitus, with other | | ulcer severity ([facility]) | + + | Pneumonia of left lower lobe due to infectious organism | + + | Volume depletion, gastrointestinal loss Volume depletion, unspecified | + + | Hypotension due to hypovolemia | + + documented in this encounter Administered Medications + +--------+---------+------+------+------+ | Medication Order | MAR | Action | Dose | Rate | Site | | | Action | Date | | | | + +--------+---------+------+------+------+ + +---+ | albumin 25% IVPB 12.5 g 12.5 | | | g, Intravenous, Administer over | | | 30 Minutes, PRN, PRN | | | hypotension., Starting Tue | | | 09/23/19 at 1024, For BP < 90 | | | mmHg on NxStage., Dialysis | | + +---+ | | | + +---+ + +-------+ +--------+---+---+ | apixaban (ELIQUIS) tablet 2.5 | Given | 09/26/20 | 2.5 mg | | | | mg 2.5 mg, Oral, 2 TIMES DAILY, | | 19 9:46 | | | | | First dose on Sun09/23/19 at | | AM PST | | | | | 0900 | | | | | | + +-------+ +--------+---+---+ +-------+ +--------+---+---+ | Given | 09/25/20 | 2.5 mg | | | | | 19 9:32 | | | | | | PM PST | | | | +-------+ +--------+---+---+ | Given | 09/25/20 | 2.5 mg | | | | | 19 8:25 | | | | | | AM PST | | | | +-------+ +--------+---+---+ +---+---+ | | | +---+---+ + +---------+ +--------+-------+---+ | azithromycin (ZITHROMAX) 500 mg | New Bag | 09/25/20 | 500 mg | 255 | | | in sodium chloride 0.9% 250 mL | | 19 9:44 | | mL/hr | | | IVPB 500 mg, Intravenous, | | AM PST | | | | | Administer over 1 Hours, DAILY, | | | | | | | First dose on Sun09/23/19 at | | | | | | | 1030, Keep in refrigerator., | | | | | | | Indications: Community Acquired | | | | | | | Pneumonia | | | | | | + +---------+ +--------+-------+---+ +---------+ +--------+-------+---+ | New Bag | 09/24/20 | 500 mg | 255 | | | | 19 9:42 | | mL/hr | | | | AM PST | | | | +---------+ +--------+-------+---+ | New Bag | 09/23/20 | 500 mg | 255 | | | | 19 11:33 | | mL/hr | | | | AM PST | | | | +---------+ +--------+-------+---+ +---+---+ | | | +---+---+ + +---------+ +-----+-------+---+ | cefTRIAXone (ROCEPHIN) 1 g in | New Bag | 09/25/20 | 1 g | 100 | | | sodium chloride 0.9% 50 mL IVPB | | 19 8:51 | | mL/hr | | | 1 g, Intravenous, Administer over | | AM PST | | | | | 30 Minutes, EVERY 24 HOURS | | | | | | | (Daily), First dose on Sun | | | | | | | 09/23/19 at 1030, Activate system | | | | | | | and mix before use., | | | | | | | Indications: Community Acquired | | | | | | | Pneumonia | | | | | | + +---------+ +-----+-------+---+ +---------+ +-----+-------+---+ | New Bag | 09/24/20 | 1 g | 100 | | | | 19 9:23 | | mL/hr | | | | AM PST | | | | +---------+ +-----+-------+---+ | New Bag | 09/23/20 | 1 g | 100 | | | | 19 10:51 | | mL/hr | | | | AM PST | | | | +---------+ +-----+-------+---+ +---+---+ | | | +---+---+ + +-------+ +--------+---+---+ | cholecalciferol (VITAMIN D-3) | Given | 09/26/20 | 5,000 | | | | tablet 5,000 Units 5,000 Units, | | 19 9:44 | Units | | | | Oral, DAILY, First dose on Sun | | AM PST | | | | | 09/23/19 at 0900 | | | | | | + +-------+ +--------+---+---+ +-------+ +--------+---+---+ | Given | 09/25/20 | 5,000 | | | | | 19 8:25 | Units | | | | | AM PST | | | | +-------+ +--------+---+---+ | Given | 09/24/20 | 5,000 | | | | | 19 9:22 | Units | | | | | AM PST | | | | +-------+ +--------+---+---+ +---+---+ | | | +---+---+ + +-------+ +-------+---+---+ | cinacalcet (SENSIPAR) tablet 30 | Given | 09/26/20 | 30 mg | | | | mg 30 mg, Oral, THREE TIMES | | 19 9:46 | | | | | WEEKLY (Once per day on Sun | | AM PST | | | | | Fri), First dose on Sun09/22/19 | | | | | | | at 2345, Do not cut or crush., | | | | | | + +-------+ +-------+---+---+ +-------+ +-------+---+---+ | Given | 09/24/20 | 30 mg | | | | | 19 9:10 | | | | | | AM PST | | | | +-------+ +-------+---+---+ | Given | 09/23/20 | 30 mg | | | | | 19 12:08 | | | | | | AM PST | | | | +-------+ +-------+---+---+ + +---+ | | | + +---+ | dextrose 10% (D10W) infusion | | | at 50 mL/hr, Intravenous, | | | CONTINUOUS PRN, hypoglycemia, | | | Starting 09/22/19 at 2321, | | | Start infusion if unable to | | | maintain blood glucose greater | | | than 70 mg/dL after two rounds of | | | hypoglycemia treatment. Recheck | | | blood glucose 30 minutes after | | | starting D10W then at least | | | hourly and PRN until it is | | | discontinued. Call provider to | | | discuss parameters for D10W | | | discontinuation., | | + +---+ | | | + +---+ | dextrose 50% injection 12.5-25 | | | g 12.5-25 g, Intravenous, PRN, | | | Low Blood Sugar, Starting Mon | | | 09/22/19 at 2321, For blood | | | glucose 50-69 mg/dl - give 12.5 g | | | For blood glucose less than 50 | | | mg/dl - give 25 g, | | + +---+ | | | + +---+ + + + +---------+---------+---+ | dilTIAZem (CARDIZEM) 1 mg/mL in | Rate/Dos | 09/23/20 | 5 mg/hr | 5 mL/hr | | | sodium chloride 0.9% 125 mL | e Change | 19 9:05 | | | | | infusion 0-15 mg/hr (0-15 | | PM PST | | | | | mL/hr), at 0-15 mL/hr, | | | | | | | Intravenous, TITRATED, Starting | | | | | | | 09/23/19 at 1815, Titration | | | | | | | Instruction: See below, Goal: HR | | | | | | | less than 100, Initial dose: 5 | | | | | | | mg/hr, Increase rate by: 5 mg/hr | | | | | | | every 15 minutes., Decrease rate | | | | | | | by: 5 mg/hr every 15 minutes., *: | | | | | | | Titrate drug per order as | | | | | | | tolerated. Titration may vary | | | | | | | based on the patient | | | | | | | | | | | | | | s critical condition. | | | | | | + + + +---------+---------+---+ + + + + +---+ | Rate/Dose Change | 09/23/20 | 10 mg/hr | 10 mL/hr | | | | 19 6:51 | | | | | | PM PST | | | | + + + + +---+ | New Bag | 09/23/20 | 5 mg/hr | 5 mL/hr | | | | 19 6:26 | | | | | | PM PST | | | | + + + + +---+ +---+---+ | | | +---+---+ + +-------+ +-------+---+---+ | dilTIAZem (CARDIZEM) injection | Given | 09/23/20 | 10 mg | | | | 10 mg 10 mg, Intravenous, ONCE, | | 19 6:00 | | | | | 09/23/19 at 1815, For 1 dose, | | PM PST | | | | | Keep in refrigerator., | | | | | | + +-------+ +-------+---+---+ +---+---+ | | | +---+---+ + +-------+ +---------+---+---+ | doxercalciferol (HECTOROL) | Given | 09/26/20 | 2.5 mcg | | | | capsule 2.5 mcg 2.5 mcg, Oral, | | 19 9:52 | | | | | THREE TIMES WEEKLY (Once per day | | AM PST | | | | | on Sun), First dose on | | | | | | | Sun09/24/19 at 0900 | | | | | | + +-------+ +---------+---+---+ +-------+ +---------+---+---+ | Given | 09/24/20 | 2.5 mcg | | | | | 19 9:22 | | | | | | AM PST | | | | +-------+ +---------+---+---+ +---+---+ | | | +---+---+ + +-------+ +--------+---+---+ | heparin (dialysis) 1,000 | Given | 09/23/20 | 1,000 | | | | units/mL injection 1,000 Units | | 19 11:45 | Units | | | | 1,000 Units, Intravenous, | | AM PST | | | | | DIALYSIS - ONCE, e 09/23/19 at | | | | | | | 1045, For 1 dose, While on | | | | | | | NxStage Tx., Dialysis | | | | | | + +-------+ +--------+---+---+ +---+---+ | | | +---+---+ + +---------+ + +---------+---+ | heparin in half-normal saline | New Bag | 09/23/20 | 400 | 4 mL/hr | | | 100 units/mL infusion 400 | | 19 11:45 | Units/hr | | | | Units/hr (4 mL/hr), at 4 mL/hr, | | AM PST | | | | | Intravenous, DIALYSIS - | | | | | | | CONTINUOUS, Starting 12/17/19 | | | | | | | at 1045, For 1 day, While on | | | | | | | NxStage Tx., Dialysis | | | | | | + +---------+ + +---------+---+ + +---+ | | | + +---+ | heparin in half-normal saline | | | 100 units/mL infusion 400 | | | Units/hr (4 mL/hr), at 4 mL/hr, | | | Intravenous, DIALYSIS - | | | CONTINUOUS, Starting Sun09/26/19 | | | at 0730, For 1 day, While on | | | NxStage Tx., Dialysis | | + +---+ | | | + +---+ + +-------+ +---------+---+ + | insulin lispro (humaLOG | Given | 09/25/20 | 1 Units | | Abdomen- | | KWIKPEN) injection (pen) 0-6 | | 19 5:59 | | | LLQ | | Units 0-6 Units, Subcutaneous, 4 | | PM PST | | | | | TIMES DAILY WITH MEALS & | | | | | | | NIGHTLY, First dose on Mon | | | | | | | 09/22/19 at 2345, CORRECTION | | | | | | | SCALE: Blood Glucose (BG) < | | | | | | | 150: None BG | | | | | | | 150-200: DAY: 1 units. NIGHT: 0 | | | | | | | units BG 201-250: DAY: 2 units. | | | | | | | NIGHT: 1 units BG 251-300: | | | | | | | DAY: 3 units. NIGHT: 2 units | | | | | | | BG 301-350: DAY: 4 units. NIGHT: | | | | | | | 3 units BG 351-400: DAY: 5 | | | | | | | units. NIGHT: 4 units BG > | | | | | | | 400 : DAY: 6 units. NIGHT: 5 | | | | | | | units | | | | | | | AND CALL PROVIDER Use DAY DOSE | | | | | | | for doses scheduled: AC, | | | | | | | NPO, Daytime [id number] Use NIGHT | | | | | | | DOSE for doses scheduled: | | | | | | | HS, 3AM, Nighttime [id number] If | | | | | | | the BG is not checked before the | | | | | | | patient starts eating, do not | | | | | | | give correction insulin. If HS | | | | | | | insulin given, check blood | | | | | | | glucose at 3AM., | | | | | | + +-------+ +---------+---+ + +-------+ +---------+---+ + | Given | 09/25/20 | 1 Units | | Arm-Righ | | | 19 11:57 | | | t Upper | | | AM PST | | | | +-------+ +---------+---+ + | Given | 09/24/20 | 1 Units | | Abdomen- | | | 19 5:22 | | | LUQ | | | PM PST | | | | +-------+ +---------+---+ + +---+---+ | | | +---+---+ + +-------+ +------+---+---+ | lidocaine (PF) 1% injection 5 | Given | 09/23/20 | 1 mL | | | | mL 5 mL, Infiltration, ONCE, Tue | | 19 11:50 | | | | | 09/23/19 at 1045, For 1 dose, | | AM PST | | | | | Dialysis | | | | | | + +-------+ +------+---+---+ +---+---+ | | | +---+---+ + +-------+ +------+---+---+ | loperamide (IMODIUM) capsule 2 | Given | 09/25/20 | 2 mg | | | | mg 2 mg, Oral, EVERY 3 HOURS | | 19 7:15 | | | | | PRN, Diarrhea, Starting Wed | | AM PST | | | | | 09/24/19 at 2140 | | | | | | + +-------+ +------+---+---+ +-------+ +------+---+---+ | Given | 09/24/20 | 2 mg | | | | | 19 10:14 | | | | | | PM PST | | | | +-------+ +------+---+---+ +---+---+ | | | +---+---+ + +-------+ +------+---+---+ | loperamide (IMODIUM) capsule 4 | Given | 09/25/20 | 4 mg | | | | mg 4 mg, Oral, EVERY 3 HOURS | | 19 3:17 | | | | | PRN, Diarrhea, Starting Sakina | | PM PST | | | | | 09/25/19 at 0901 | | | | | | + +-------+ +------+---+---+ +-------+ +------+---+---+ | Given | 09/25/20 | 4 mg | | | | | 19 11:55 | | | | | | AM PST | | | | +-------+ +------+---+---+ + +---+ | | | + +---+ | mannitol 25% injection 12.5 g | | | 12.5 g, Intravenous, Administer | | | over 30 Minutes, PRN, PRN | | | hypotension, Starting Tue | | | 09/23/19 at 1024, For BP < 90 | | | mmHg on NxStage. Do not | | | refrigerate. Watch for | | | precipitation. Use 0.22, 1.2, or | | | 5 micron in-line filter for | | | administration., Dialysis | | + +---+ | | | + +---+ + +-------+ +---------+---+---+ | metoprolol tartrate (LOPRESSOR) | Given | 09/26/20 | 12.5 mg | | | | tablet 12.5 mg 12.5 mg, Oral, 3 | | 19 9:46 | | | | | TIMES DAILY, First dose on Sun | | AM PST | | | | | 09/24/19 at 0900, Hold if SBP < | | | | | | | 90 or DBP < 50 or HR < 60, | | | | | | + +-------+ +---------+---+---+ +-------+ +---------+---+---+ | Given | 09/25/20 | 12.5 mg | | | | | 19 9:32 | | | | | | PM PST | | | | +-------+ +---------+---+---+ | Given | 09/25/20 | 12.5 mg | | | | | 19 2:29 | | | | | | PM PST | | | | +-------+ +---------+---+---+ +---+---+ | | | +---+---+ + +-------+ +-------+---+---+ | pantoprazole (PROTONIX) DR | Given | 09/25/20 | 40 mg | | | | tablet 40 mg 40 mg, Oral, DAILY | | 19 7:15 | | | | | BEFORE BREAKFAST, First dose on | | AM PST | | | | | 09/23/19 at 0730, Indication: | | | | | | | GERD | | | | | | + +-------+ +-------+---+---+ +-------+ +-------+---+---+ | Given | 09/24/20 | 40 mg | | | | | 19 6:52 | | | | | | AM PST | | | | +-------+ +-------+---+---+ | Given | 09/23/20 | 40 mg | | | | | 19 7:08 | | | | | | AM PST | | | | +-------+ +-------+---+---+ +---+---+ | | | +---+---+ + +---------+ +---------+-------+---+ | piperacillin-tazobactam (ZOSYN) | New Bag | 09/22/20 | 3.375 g | 200 | | | 3.375 g in sodium chloride 0.9% | | 19 11:43 | | mL/hr | | | 100 mL IVPB 3.375 g, | | PM PST | | | | | Intravenous, Administer over 0.5 | | | | | | | Hours, ONCE, 09/23/19 at | | | | | | | 0000, For 1 dose, | | | | | | | Extended-Infusion Zosyn Protocol: | | | | | | | infuse bolus over 30 minutes, | | | | | | | followed in 4 hours by | | | | | | | maintenance dosing. Activate | | | | | | | system and mix before use., | | | | | | | Indications: SEPSIS OF UNKNOWN | | | | | | | ETIOLOGY | | | | | | + +---------+ +---------+-------+---+ +---+---+ | | | +---+---+ + +---------+ +---------+ +---+ | piperacillin-tazobactam (ZOSYN) | New Bag | 09/23/20 | 3.375 g | 25 mL/hr | | | 3.375 g in sodium chloride 0.9% | | 19 4:59 | | | | | 100 mL IVPB 3.375 g, | | AM PST | | | | | Intravenous, Administer over 4 | | | | | | | Hours, EVERY 12 HOURS INTERVAL, | | | | | | | First dose on Sun09/23/19 at | | | | | | | 0400, Extended-Infusion Zosyn | | | | | | | Protocol: infuse over 4 hours | | | | | | | when maintenance dose has a | | | | | | | frequency of Q8H (or Q12H for | | | | | | | renal dose adjustment). Activate | | | | | | | system and mix before use., | | | | | | | Indications: SEPSIS OF UNKNOWN | | | | | | | ETIOLOGY | | | | | | + +---------+ +---------+ +---+ +---+---+ | | | +---+---+ + +-------+ + +---+---+ | renal multivitamin (DIALYVITE, | Given | 09/26/20 | 1 tablet | | | | VOL-CARE) tablet 1 tablet 1 | | 19 9:53 | | | | | tablet, Oral, DAILY, First dose | | AM PST | | | | | on Sun09/23/19 at 0900 | | | | | | + +-------+ + +---+---+ +-------+ + +---+---+ | Given | 09/25/20 | 1 tablet | | | | | 19 8:25 | | | | | | AM PST | | | | +-------+ + +---+---+ | Given | 09/24/20 | 1 tablet | | | | | 19 9:09 | | | | | | AM PST | | | | +-------+ + +---+---+ +---+---+ | | | +---+---+ + +-------+ +-------+---+---+ | rosuvastatin (CRESTOR) tablet | Given | 09/26/20 | 20 mg | | | | 20 mg 20 mg, Oral, DAILY, First | | 19 9:53 | | | | | dose on Sun09/23/19 at 0900 | | AM PST | | | | + +-------+ +-------+---+---+ +-------+ +-------+---+---+ | Given | 09/25/20 | 20 mg | | | | | 19 8:24 | | | | | | AM PST | | | | +-------+ +-------+---+---+ | Given | 09/24/20 | 20 mg | | | | | 19 9:10 | | | | | | AM PST | | | | +-------+ +-------+---+---+ +---+---+ | | | +---+---+ + +-------+ +--------+---+---+ | saccharomyces boulardii | Given | 09/26/20 | 250 mg | | | | (FLORASTOR) capsule 250 mg 250 | | 19 9:53 | | | | | mg, Oral, 2 TIMES DAILY, First | | AM PST | | | | | dose on 09/24/19 at 2200, Do | | | | | | | not open or crush., | | | | | | + +-------+ +--------+---+---+ +-------+ +--------+---+---+ | Given | 09/25/20 | 250 mg | | | | | 19 9:32 | | | | | | PM PST | | | | +-------+ +--------+---+---+ | Given | 09/25/20 | 250 mg | | | | | 19 8:24 | | | | | | AM PST | | | | +-------+ +--------+---+---+ +---+---+ | | | +---+---+ + +---------+ +---+-------+---+ | sodium chloride 0.9% (NS) 500 | New Bag | 09/25/20 | | 83.3 | | | mL bolus Intravenous, Administer | | 19 9:10 | | mL/hr | | | over 6 Hours, ONCE, [facility] 09/25/19 | | AM PST | | | | | at 0930, For 1 dose | | | | | | + +---------+ +---+-------+---+ +---+---+ | | | +---+---+ + +---------+ +---------+-------+---+ | sodium chloride 0.9% (NS) bolus | New Bag | 09/22/20 | 250 mLs | 1000 | | | 250 mL 250 mL, Intravenous, | | 19 11:46 | | mL/hr | | | Administer over 15-30 Minutes, | | PM PST | | | | | ONCE, 09/23/19 at 0000, For 1 | | | | | | | dose | | | | | | + +---------+ +---------+-------+---+ +---+---+ | | | +---+---+ documented in this encounter Additional Health Concerns + + + + | Infection | Noted Time | Resolved Time | + + + + | Methicillin-resistant Staphylococcus aureus | 11/11/2018 2:03 PM | 12/30/2019 12:36 PM | | | PST | PDT | + + + + documented as of this encounter
--- OUTSIDE RECORDS SUMMARY | ~2020-03-04 | XMS | Encounter Summary ---
Demographics + + + | Address | [address] | | | [place] [address] | + + + | Home Phone | | + + + | Preferred Language | Unknown | + + + | Marital Status | | + + + | Roman Catholic Affiliation | 1041 | + + + | Race | Unknown | + + + | Ethnic Group | Unknown | + + + Author + + + | Author | [facility] | | | and [place] | + + + | Organization | [facility] | | | and [place] [...] Team Providers + +------+ + | Care Travel Rn Or Name | Role | Phone | + +------+ + PCP | Unavailable | + +------+ + Reason for Visit +--------+ + | Reason | Comments | +--------+ + | Other | | +--------+ + Encounter Details +--------+ + + + + | Date | Type | Department | Care Team | Description | +--------+ + + + + | 06/16/ | Telephone | [facility] [place] | [place], | Other | | 2013 | | NEPHROLOGY [address] | [address] | | | | | [address] | [address], [place] | | | | | [place] | [address] [place] | | | | | [address] | [address] | | | | | [phone] | | | +--------+ + + + [...]
--- OUTSIDE RECORDS SUMMARY | ~2020-03-04 | XMS | Clinical Summary ---
Demographics + + + | Address | [address] | | | [place] [address] | + + + | Home Phone | | + + + | Preferred Language | Unknown | + + + | Marital Status | Single | + + + | Adventism Affiliation | Unknown | + + + | Race | Unknown | + + + | Ethnic Group | Unknown | + + + Author + + + | Author | [email or web address] (Historical as of | | | 05-24-19) | + + + | Organization | [email or web address] (Historical as of | | | 05-24-19) [...] Team Providers + +------+ + | Care Potato Chip Fryer Name | Role | Phone | + [...]
--- OUTSIDE RECORDS SUMMARY | ~2020-03-04 | XMS | Encounter Summary ---
Demographics + + + | Address | [address] | | | [place] [address] | + + + | Home Phone | | + + + | Preferred Language | Unknown | + + + | Marital Status | | + + + | Hoahaoism Affiliation | 1041 | + + + | Race | Unknown | + + + | Ethnic Group | Unknown | + + + Author + + + | Author | [facility] | | | and [place] | + + + | Organization | [facility] | | | and [...] Team Providers + +------+ + | Care Mergers And Acquisitions Attorney Name | Role | Phone | + +------+ + PCP | Unavailable | + +------+ + Encounter Details +--------+ + + + + | Date | Type | Department | Care Team | Description | +--------+ + + + + | 01/31/ | Documentati | [facility] [place] | Uche Orozco | | | 2015 | on | NEPHROLOGY [address] | M, DO [address] | | | | | [address] | [place], [address] | | | | | [place] | [place] | | | | | [address] | [address] | | | | | [phone] | | | +--------+ + + + [...] + + + | Blood Pressure | 151/78 | 01/31/2016 5:25 PM | | | | | PDT | | + + + + + | Pulse | - | - | | + + + + + | Temperature | 36.2 C (97.2 F) | 01/31/2016 5:25 PM | | | | | PDT | | + + + + + [...] encounter Progress Notes Uche Orozco DO - 02/01/2016 5:16 PM PDT [facility] Patient ID: Celso Caro is a 55 y.o. male. 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 He also has T2DM, requiring insulin, anemia secondary to CKD, hyperlipidemia, and Hepatit is C. Outpatient Prescriptions Marked as Taking for the 02/01/16 encounter (Documentation) with Shaji rOozco DO Medication Sig Dispense Refill aspirin 81 mg EC tablet Take 81 mg by mouth Daily. atorvaSTATin (LIPITOR) 20 mg tablet Take 1 tablet by mouth Daily. 30 tablet 5 B Okwqryz-E-Uldvw Acid (OLEG-TEQUILA RX) 1 MG TABS Take 1 mg by mouth Daily. 30 each 11 Cholecalciferol (VITAMIN D3) 5000 UNITS CAPS Take 2,000 Units by mouth Daily. cinacalcet (SENSIPAR) 30 mg tablet Take 1 tablet by mouth Daily. 90 tablet 4 epoetin padilla (EPOGEN, PROCRIT) 10,000 units/mL injection Inject 3,000 Units into the ve in Three times a week. furosemide (LASIX) 40 mg tablet Take 80 mg by mouth Daily. glimepiride (AMARYL) 1 mg tablet Take 1 mg by mouth every morning (before breakfast). insulin glargine (LANTUS) 100 units/mL injection 60 units, SQ, a.m., and 50 units SQ, P M. Iron Sucrose (VENOFER IV) 50 mg by IV Push route Once a week. lisinopril (PRINIVIL,ZESTRIL) 40 MG tablet Take 40 mg by mouth Daily. metoprolol (TOPROL-XL) 100 MG 24 hr tablet Take 100 mg by mouth Daily. sevelamer carbonate (RENVELA) 800 mg tablet Take 2 tablets by mouth 3 times daily (with meals). And snacks 300 tablet 6 sitaGLIPtin (JANUVIA) 100 mg tablet Take 25 mg by mouth Daily. Allergies Allergen Reactions Amlodipine Besylate Unknown Metformin Diarrhea Objective: Blood pressure 151/78, temperature 36.2 C (97.2 F). EDW 125 kg Physical Exam Heart: Regular rate and rhythm with no S3, S4, murmur or rub. Lungs: CTA bilaterally. No rales or wheezes. Abdomen: Soft, flat, nontender, normoactive bowel sounds. Extremities: No clubbing, cyanosis, or edema. LAB: BUN 55, Cr 11.9, K+ 4.6, HCO3 18, albumin 3.6, Ca++ 8.4, phosphorus 6.5, PTH 839, Hb 11.5, eKT/V = 1.31. Assessment: 1. ESRD--he appears well dialyzed by the most recent eKT/V.his dry weight appears satisfac tory. 2. Hypertension--his BP appears stable on lisinopril, metoprolol and UF. 3. Anemia-- Hb is above target. Will continue to hold his EPO until Hb <11.0 g/dl . Will repeat his iron profile next month. 4. SHPTH--his PTH is slowly worsening. I emphasized to Herman the need to time his Renvela exactly AC&HS. 5. Nutrition-- serum albumin is decreased slightly. I emphasized to Herman to maximize his daily intake of high biological value protein. 6. Type 2 DM--he has been very insulin resistant and the past.he is working on titrating h is Lantus better to optimize his glycemic control.I think that he may be eating irregular me altimes? 7. Hepatitis C--transaminases have been stable . 8. Hyperlipidemia--Will recheck the lipid profile next quarter. 9. Transplantation-- he is hopeful that he may get a second chance at being listed. 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 Plan: 1. I reviewed with Herman dietary foods that are rich in phosphorus. Again, encouraged him to optimize his timing her Renvela exactly AC&HS. 2. I discussed with him that high PTH can be associated with increased atherosclerosis and cardiovascular mortality. 3. As above, we will hold his EPO until Hb <11.0 g/dl. 4. Will recheck his PTH, Hb, HbA1c and iron profile next month. : [facility] by Uche Orozco DO at 5:43 PM PDTdocumented in this encounter Plan of Treatment Not on filedocumented as of this encounter Visit Diagnoses + + | Diagnosis | + + | End stage renal disease (HCC) - Primary End stage renal disease | + + | Essential hypertension with goal blood pressure less than 140/90 | + + documented in this encounter"
--- OUTSIDE RECORDS SUMMARY | ~2020-03-04 | XMS | Encounter Summary ---
Demographics + + + | Address | [address] | | | [place] [address] | + + + | Home Phone [...] + | Organization | [facility] | | | and [place] [...] Team Providers + +------+ + | Care Biochemical Engineer Name | Role | Phone | + +------+ + PCP | Unavailable | + +------+ + Reason for Visit Evaluate & Treat (Routine) +--------+--------+ + + + + | Status | Reason | Specialty | Diagnoses / | Referred By | Referred To | | | | | Procedures | Contact | Contact | +--------+--------+ + + + + | Closed | | Nephrology | Diagnoses | Camille, | Stroalenal, | | | | | End stage | MD Frances | Uche Pena DO | | | | | renal | [address] | [address] | | | | | disease | [address] [place] | [place] | | | | | ([facility]) | [place] | [address] [place] | | | | | Procedures | [address] | [place] | | | | | [place] OFFICE | Phone: | [phone] Phone: | | | | | OUTPATIENT | [phone] | [phone] | | | | | VISIT 25 | Fax: | Fax: | | | | | MINUTES | [phone] | [phone] | +--------+--------+ + + + + Encounter Details +--------+ + + + + | Date | Type | Department | Care Team | Description | +--------+ + + + + | 05/31/ | Off-Site | [facility] [place] | Uche Orozco | End stage renal | | 2015 | Visit | NEPHROLOGY [address] | M, DO [address] | disease (HCC) | | | | [address] | [place], [place] [address] | (Primary Dx) | | | | [place], [place] | [place] | | | | | [address] | [address] | | | | | [phone] | | | +--------+ + + + [...] + + + | Blood Pressure | 151/77 | 06/05/2015 4:41 PM | | | | | PDT | | + + + + + | Pulse | - | - | | + + + + + | Temperature | 35.6 C (96 F) | 06/05/2015 4:41 PM | | | | | PDT [...] documented in this encounter Progress Notes Uche Orozco, - 06/05/2015 4:42 PM PDT Subjective: [facility] DIALYSIS NOTE Patient ID: Celso Caro is a 55 y.o. male. HPI Comments: Monthly dialysis visit for this 55 YO male with ESRD second milly to diabetic nephropathy, who is seen on outpatient HD, at the [facility] [place] . He also has T2DM, requiring insulin, anemia secondary to CKD, hyperlipidemia, Hepatitis C, morbid obesity and a question of a right renal mass on prior US. He appears much more at tentive to his laboratory, treatment schedule, and working on his renal diet. He is very pl easant and cooperative here in clinic in the last 6 months. Outpatient Prescriptions Marked as Taking for the 05/31/15 encounter (Off-Site Visit) with Jean Orozco DO Medication Sig Dispense Refill aspirin 81 mg EC tablet Take 81 mg by mouth Daily. atorvaSTATin (LIPITOR) 20 mg tablet Take 1 tablet by mouth Daily. 30 tablet 5 B Vloogsi-Q-Ahrxp Acid (OLEG-TEQUILA RX) 1 MG TABS Take 1 mg by mouth Daily. 30 each 11 Cholecalciferol (VITAMIN D3) 5000 UNITS CAPS Take 2,000 Units by mouth Daily. cinacalcet (SENSIPAR) 30 mg tablet Take 1 tablet by mouth Daily. 90 tablet 4 doxercalciferol (HECTOROL) 4 MCG/2ML injection Inject 1 mcg into the vein Three times a week. epoetin padilla (EPOGEN, PROCRIT) 10,000 units/mL injection Inject 3,000 Units into the ve in Three times a week. furosemide (LASIX) 40 mg tablet Take 80 mg by mouth Daily. glimepiride (AMARYL) 1 mg tablet Take 1 mg by mouth every morning (before breakfast). insulin glargine (LANTUS) 100 units/mL injection Inject [...] Besylate Unknown Metformin Diarrhea Objective: Blood pressure 151/77, temperature 35.6 C (96 F). EDW 124 kg Physical Exam Heart: Regular rate and rhythm with no S3, S4, murmur or rub. Lungs: CTA bilaterally. No rales or wheezes. Abdomen: Soft, flat, nontender, normoactive bowel sounds. Extremities: No clubbing, cyanosis, or edema. LAB: BUN 62, Cr 11.98, K+ 4.8, HCO3 22, albumin 3.8, AST 10, HbA1c 9.8%, Ca++ 8.5, phospho mariam 6.7, PTH 481, Hb 10.4, TSat = 34%, ferritin 727, eKT/V = 1.45. Assessment: 1. ESRD-- he appears well dialyzed by the most recent eKT/V. 2. Hypertension-- good control from review of his treatment data. 3. Anemia-- anemia appears to be responding well to the current dose of EPO. His iron sto res are adequate. 4. SHPTH--PTH is slightly above target therefore will increase Hectorol to 1.5 g, IV iqra ry treatment. He appears to be doing better with phosphorus control versus 4 months ago. 5. Nutrition--his appetite and albumin are excellent. 6. Type 2 DM--fair control. 7. Hepatitis C--AST has been stable. 8. Hyperlipidemia--Will recheck the lipid profile next quarter. 9. Transplantation-- I have discussed this, however, he is noncommittal about further plan jadon. 10. Right renal mass, MRI, 10/2012--suspicious for complex, "proteinaceous cysts, " on MRI at that time. Plan: 1. I encouraged Herman that he appears to be doing better with his fluid intake, and complia nce with all of his prescribed treatments. 2. Will discuss with him about increasing glimepiride to 2 mg daily to help improve his Hb A1c. 3. Meds and monthly lab were reviewed with the patient. Will recheck him in one week. CC: [facility] documented in thi s encounter Plan of Treatment Not on filedocumented as of this encounter Visit Diagnoses + + | Diagnosis | + + | End stage renal disease (HCC) - Primary End stage renal disease | + + documented in this encounter
--- OUTSIDE RECORDS SUMMARY | ~2020-03-04 | XMS | Encounter Summary ---
Demographics + + + | Address | [address] | | | [place] [address] | + + + | Home Phone | | + + + | Preferred Language | Unknown | + + + | Marital Status | | + + + | Adventist Affiliation | 1041 | + + + | Race | Unknown | + + + | Ethnic Group | Unknown | + + + Author + + + | Author | [facility] | | | and [place] | + + + | Organization | [facility] | | | and [...] Team Providers + +------+ + | Care Supply Technician Name | Role | Phone | + +------+ + PCP | Unavailable | + +------+ + Reason for Visit +--------+ + | Reason | Comments | +--------+ + | Other | Hep C | +--------+ + Evaluate & Treat (Routine) +--------+ + + + + + | Status | Reason | Specialty | Diagnoses / | Referred By | Referred To | | | | | Procedures | Contact | Contact | +--------+ + + + + + | Closed | Specialty | Gastroenterol | Diagnoses | Kuo, | Kendall, | | | Services | [email or web address] | Type II or | Lexi W, | Lynda, | | | Required | | unspecified | MD [address] | [address] | | | | | type | [place] | [place], [place] | | | | | diabetes | [address] [place] | [address] [place] | | | | | mellitus | [place], [place] | [place] | | | | | with renal | [address] | [address] Phone: | | | | | manifestatio | Phone: | [phone] | | | | | ns, | [phone] | Fax: | | | | | uncontrolled | Fax: | [phone] | | | | | [phone] | [phone] | | | | | | (HCC) | | | | | | | Unspecified | | | | | | | viral | | | | | | | hepatitis C | | | | | | | without | | | | | | | hepatic coma | | | | | | | Other | | | | | | | specified | | | | | | | pre-operativ | | | | | | | e | | | | | | | examination | | | | | | | Routine | | | | | | | general | | | | | | | medical | | | | | | | examination | | | | | | | at a health | | | | | | | care | | | | | | | facility | | | +--------+ + + + + + Encounter Details +--------+---------+ + + + | Date | Type | Department | Care Team | Description | +--------+---------+ + + + | 02/18/ | Office | [facility] | Lexi Kuo, | HCV antibody | | 2015 | Visit | GASTROENTEROLOGY | [address] | positive (Primary | | | | [address] | [place] [address] [place] | Dx); ESRD (end stage | | | | [address] [place], [place] | [place] [address] | renal disease) on | | | | [address] | [phone] | dialysis (HCC); | | | | [phone] | | Anemia, chronic | | | | | [place], | disease | | | | | [address] [place], | | | | | | [place] [address] [place] | | | | | | [place] [address] | | | | | | [phone] | | | | | | | | +--------+---------+ + + + Social History + + [...] + + + | Blood Pressure | 112/54 | 02/18/2015 10:22 AM | | | | | PDT | | + + + + + | Pulse | 76 | 02/18/2015 10:22 AM | | | | | PDT | | + + + + + | Temperature | 37.4 C (99.3 F) | 02/18/2015 10:22 AM | | | | | PDT | | + + + + + | Respiratory Rate | 16 | 02/18/2015 10:22 AM | | | | | PDT | | + + + + + | Oxygen Saturation | - | - | | + + + + + | Inhaled Oxygen | - | - | | | Concentration | | | | + + + + + | Weight | 124.7 kg (275 lb) | 02/18/2015 10:22 AM | | | | | PDT | | + + + + + | Height | 185.4 cm (6' 1") | 02/18/2015 10:22 AM | | | | | PDT | | + + + + + | Body Mass Index | 36.28 | 02/18/2015 10:22 AM | | | | | PDT | | + + + + + documented in this encounter Progress Notes Lynda Argueta ARNP - 02/18/2015 10:49 AM PDTFormatting of this note might be differe nt from the original. Celso Sutton Case is a 55 y.o. male referred by Frances Obrien for evaluation and treatment of HCV. History of present illness: Patient was initially diagnosed with HCV about 3 years ago. Likely cause of infection of HC V is incarceration or partner with history of HCV. Has never been treated for HCV in the past. Has never had liver biopsy in the past. Last drank alcohol: about 6 weeks ago. Last smoked marijuana: about 6 months. Last used illegal drugs: over 15 years ago. Denies ascites, jaundice, hematemesis, peripheral edema, sleep changes, or confusion. Patient is on kidney dialysis. He is being evaluated for kidney transplantation. He has history or renal lesion he has been told is benign. Allergies Allergen Reactions Amlodipine Besylate Unknown Metformin Diarrhea Past Medical History Diagnosis Date Obesity Vitamin D deficiency Diabetes mellitus, type 2 (HCC) 1999 with neuropathy Diabetic foot ulcer (HCC) 01/01/12 cellulits, 2nd left toe Arthritis 09/15/2012 Hypertension 2002 ESRD (end stage renal disease) on dialysis (HCC) 1999 Heart murmur Since childhood BPH with urinary obstruction flomax caused diarrhea Hepatitis C 2007 Hyperlipidemia Recurrent UTI Past Surgical History Procedure Laterality Date Knee arthroscopy 2006 & 2007 Bilateral Tonsillectomy 1964 Right arm laceration repair 1978 Left shoulder surgery 1980 Left forearm surgery for fracture 1986 Placement of right internal jugular equistream tunneled dialysis catheter 07/18/2013 And removal of peritoneal dialysis catheter Left brachial-cephalic av fistula 07/28/13 Dr. Angelo Family History Problem Relation Age of Onset Cirrhosis Mother Other (See Comment) Father MVA Kidney disease Neg Hx History Social History Marital Status: Spouse Name: N/A Number of Children: 5 Years of Education: college Occupational History Not on file. Social History Main Topics Smoking status: Former Smoker -- 0.00 packs/day Types: Cigarettes Quit date: 05/27/1993 Smokeless tobacco: Never Used Alcohol Use: Yes Comment: 2 beers/ month Drug Use: No Sexual Activity: Not on file Other Topics Concern Not on file Social History Narrative 08/25/13: Has 5 sons (age 20 to 35 yrs old) Review of systems: Constitutional:Denies any fevers, chills, or unintentional weight loss. Eyes:Denies using glaucoma eye drops. Denies dry, burning, painful eyes Respiratory:Denies shortness of breath, cough or wheezing. Gastrointestinal:Complains of diarrhea. Denies constipation, bloody or black stools, hemate mesis, nausea or vomiting, hemorrhoids, heartburn, abdominal pain, or dysphagia Skin: Denies rashes Neurological:Denies memory difficulties, numbness or tingling, muscle weakness, paralysis o f arms or legs, epilepsy or seizure, or frequent bothersome and headaches ENT:Denies hearing loss, hearing aids, hearing ringing or buzzing in ears, constantly runny nose, nasal obstruction, hayfever, dentures, or hoarseness. Cardiovascular:Denies chest pain, palpitations, or swelling to legs :Denies painful urination, urine incontinence, waking up on average more than once per ni ght to urinate, bloody urine, or impotence Musculoskeletal:Denies swollen joints, painful back, or painful joints. Psychiatric:Denies depression and anxiety Endocrine:Denies enlarged thyroid Heme/lymph:Denies anemia or enlarged lymph glands. Physical exam: General: well developed, well nourished, in no acute distress, no muscle wasting noted Head: normocephalic and atraumatic Eyes: Sclera clear Mouth: MMM Lungs: Clear to auscultate bilaterally and throughout Heart: regular rate and rhythm Abdomen: Soft, non tender, non distended, bowel tones positive times 4 quadrants, negative Shorty y's sign, negative rebound tenderness, no guarding, no hepatosplenomegaly palpated. Msk: symmetrical with no deformity, with normal posture and gait, normal strength. Extremities: no clubbing, cyanosis, edema, or deformity noted Neurologic: no focal deficits, cranial nerves II-XII grossly intact Skin: intact without lesions or rashes, negative for spider angioma Psych: alert and cooperative; normal mood and affect; normal attention span and concentration, negative for asterixis Assessment: 1. HCV antibody positive Hepatitis C RNA, Quant, NAAT 2. ESRD (end stage renal disease) on dialysis (HCC) 3. Anemia, chronic disease likely secondary to kidnety failure. Plan: Hepatitis C antibody positive: Approximately 25-30% of the individuals infected with hepati tis C can spontaneously cleared the virus on their own. Ordered HCV quant to determine if Celso Herman Case has a chronic HCV infection. Vaccination: If it has not been done, recommend patient is vaccinated for both Hepatitis A and Hepatitis B. Transmission: Patient cannot transmit the hepatitis C virus. Substance use/abuse: She is to continue to avoid illicit drug use. She can become reinfect ed Follow-up as needed. Patient is to call with any question or concerns. Any fevers, chills, chest pain, SOB or o ther serious symptoms patient is to call the office or go to ER Cc: Frances Obrien This note was dictated using voice recognition software. Please contact me if there are an y questions regarding its content. documented in t his encounter Plan of Treatment + +------+--------+ + + | Name | Type | Priori | Associated Diagnoses | Order Schedule | | | | ty | | | + +------+--------+ + + | Hepatitis C RNA, | Lab | Routin | HCV antibody | Expected: | | Quant, NAAT | | e | positive | 02/18/2015, Expires: | | | | | | 06/18/2015 | + +------+--------+ + + documented as of this encounter Visit Diagnoses + + | Diagnosis | + + | HCV antibody positive - Primary Other and unspecified nonspecific immunological | | findings | + + | ESRD (end stage renal disease) on dialysis (HCC) End stage renal disease | + + | Anemia, chronic disease Anemia of other chronic disease | + + documented in this encounter
--- OUTSIDE RECORDS SUMMARY | ~2020-03-04 | XMS | Encounter Summary ---
Demographics + + + | Address | [address] | | | [place] [address] | + + + | Home Phone | | + + + | Preferred Language | Unknown | + + + | Marital Status | | + + + | Christianity Affiliation | 1041 | + + + | Race | Unknown | + + + | Ethnic Group | Unknown | + + + Author + + + | Author | [facility] | | | and Scarana | + + + | Organization | [facility] | | | and [...] Team Providers + +------+ + | Care Lift Supervisor Name | Role | Phone | + +------+ + PCP | Unavailable | + +------+ + Reason for Referral Surgical +--------+ + + + + + | Status | Reason | Specialty | Diagnoses / | Referred By | Referred To | | | | | Procedures | Contact | Contact | +--------+ + + + + + | Closed | Specialty | Surgery / | Diagnoses | Field, | Field, | | | Services | General | Chronic | Artem I, | Artem I, | | | Required | Surgery | kidney | , FACS | MD FACS [address] | | | | | disease | [address] | [address] | | | | | (CKD), stage | [place] | [place], | | | | | V (HCC) | [place] | [place] [address] | | | | | Procedures | [address] | Phone: | | | | | [place] | Phone: | [phone] | | | | | INSERTION | [phone] | Fax: | | | | | TUNNELED | Fax: | [phone] | | | | | INTRAPERITON | [phone] | | | | | | EAL CATHETER | | | | | | | 05/27>PEND | | | | | | | [facility] | | | | | | | / [place] | | | +--------+ + + + + + Reason for Visit + + + | Reason | Comments | + + + | New Patient | PD catheter placement | + + + Encounter Details +--------+---------+ + + + | Date | Type | Department | Care Team | Description | +--------+---------+ + + + | 05/27/ | Office | [facility] | Artem Angelo | Chronic kidney | | 2012 | Visit | SURGERY [address] | MD [place], FACS [address] | disease (CKD), stage | | | | [place], [place] | [facility] | V (HCC) (Primary | | | | [address] | [place] [address] | Dx) | | | | [phone] | [phone] | | | | | | | [...] + + + | Blood Pressure | 156/80 | 05/27/2013 10:50 AM | | | | | PDT | | + + + + + | Pulse | 68 | 05/27/2013 10:50 AM | | | | | PDT | | + + + + + | Temperature | 36.7 C (98 F) | 05/27/2013 10:50 AM | | | | | PDT | | + + + + + | Respiratory Rate | 16 | 05/27/2013 10:50 AM | | | | | PDT | | + + + + + | Oxygen Saturation | 97% | 05/27/2013 10:50 AM | | | | | PDT | | + + + + + | Inhaled Oxygen | - | - | | | Concentration | | | | + + + + + | Weight | 134 kg (295 lb 8 oz) | 05/27/2013 10:50 AM | | | | | PDT | | + + + + + | Height | 185.4 cm (6' 1") | 05/27/2013 10:50 AM | | | | | PDT | | + + + + + | Body Mass Index | 38.99 | 05/27/2013 10:50 AM | | | | | PDT | | + + + + + documented in this encounter Progress Notes Artem Angelo MD - 05/27/2013 10:49 AM PDT Patient Identification: Celso Pena Case 1960 Is a 53 y.o. male , a patient of Annie Obrien MD. Chief Complaint: Chief Complaint Patient presents with New Patient PD catheter placement Patients Preliminary Questionaire: Have you started dialysis yet? no How many years have been dialyzed? 0 Are you a candidate for kidney transplantation? unknown Who is your Primary Care ? Frances Obrien MD Who is your Slat Basket Maker Helper Machine/Kidney Specialist ? Sarai gN When was the current dialysis access placed? unknown What problems are there with the current dialysis access? none HPI Celso Pena Case is a 53 y.o. male patient of Frances Obrien MD here today for evaluation of PD catheter placement. Patient is here alone. Sarai Pabon has told him he will need dialysis soon. No prior abdominal surgery. No prior abdominal pains. No problems with nausea, vomiting, diarrhea or constipation. 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 Date 05/08/2013 BUN 50 CREA 5.89 Jessica Pabon notes from May 20, 2013: HPI: Celso Pena Case is a 53 y.o. male following up for diabetic nephropathy, CKD stage 5. Marisol is also has hypertension, diabetes mellitus type 2 requiring insulin that has not been well controlled, chronic diabetic foot ulcer, hyperlipidemia, and hepatitis C. He also has benign prostatic hypertrophy chronic UTI's, now on prophylactic antibiotics. He was started on telly max in the past year but he stopped it due to diarrhea. He also has nephrotic range proteinu eneida. He has not kept his scheduled follow up appointments (today was supposed to be a 1 month fo llow up and is a 4 month follow up instead) and does not take his medications as prescribed. Last week when his labs were resulted, he was called and reminded to take sodium bicarb. He had not refilled it for "a while". Today he admits that he still has not refilled it. He ta kes furosemide intermittently, he cannot explain why he does not take it regularly as prescr ibed. At last visit in January he agreed to see a surgeon for fistula placement but reports th at he missed an appt due to in the family and then did not reschedule it. Now he is mo re interested in doing peritoneal dialysis at home, instead of hemodialysis. Celso reports intermittent fatigue but otherwise denies complaints. 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 He reports robust appetite, without nausea, vomiting or taste disturbances. He feels that his ankle swelling is well controlled when he takes furosemide regularly. 1. CHRONIC KIDNEY DISEASE STAGE V (585.5) CKD is most likely due to diabetic nephropathy, though without a biopsy, concurrent glomeru lonephritis cannot be entirely ruled out. No renal biopsy was completed as it would not horan ge the course of his treatment. Serologic work up was negative. Kidney function continues to steadily fall, with metabolic acidosis. Hyperkalemia has improved. Continued nephrotic rang e proteinuria. Pt denies uremic symptoms. No signs of obstruction or other structural reasons for acute kidney injury on ultrasound. Kidneys normal sized. There is a right renal mass noted that has grown in size in the past 2 years. MRI suggested that it was a proteinacious cyst, relative stability compared with ult rasound back to 2009. In the future, when patient is on dialysis, this could be confirmed wi th a contrast CT scan. Again educated patient at length about his current renal function and need for dialysis wit hin the next 2 months. Educated him about peritoneal dialysis, including training length for CAPD and eventual cycler training. He seemed alarmed that he would need a few weeks off fro m work for training but states that he has enough vacation time. I explained about [place] and offered to fill out any paperwork needed from his work. He agreed to see Dr. Angelo to surajus s PD catheter placement. He understands that the catheter cannot be used until 3 weeks after placement (unless he is needing urgent dialysis). Appt made for next Sunday05/27/13 at 10 :45 am and I called pt directly to give this appt time. He agreed to call our office to have this rescheduled if he could not make it to appt. Educated pt again about acidosis and strongly encouraged him to consistently take his medic ations. He seemed motivated to start sodium bicarb again. 2. TYPE II DIABETES MELLITUS WITH RENAL MANIFESTATIONS, UNCONTROLLED (250.42) Diabetes has not been well controlled in the past. He is encouraged to continue working on this and following up with Dr. Obrien. 3. HYPERTENSION Blood pressure under better control. Also edema has improved. Encouraged patient to take th e furosemide regularly to get the best response. He has noticed urinary response to this dos e. 4. SECONDARY HYPERPARATHYROIDISM (588.81) Phos is climbing. Pt will likely need to be started on Renvela. At this point he is overwhe lmed with his current medication regimen so will hold off on starting those. Will recheck PT H at next visit. 5. BPH (600.90) No significant PVR and no hydronephrosis on ultrasound, though patient has had recurrent UT Is. His urine is clear today. Patient is followed by urology. 6. RENAL MASS (593.9) Possibly a proteinaceous cyst. Will plan on a contrast CT scan when he is on dialysis. 7. HEPATITIS C (070.70) Patient may need to be evaluated by a incinerator attendant in the future. His most recent liver fun ction tests were within normal limits (05/08/13). Follow up in 1 month, sooner if needed. Labs prior including CMP, PO4, PTH, Hepatitis B igor face antibody and surface antigen, Hep C antibody. Patient verbalized agreement and understanding of above plan. 45 minutes spent face to face with patient with greater than 50% of time in counseling, edu cation and coordination of care regarding ESRD, dialysis, medication education. CC: Frances Obrien MD [facility] Frances Obrien MD's notes were not reviewed in clinic today. Sarai Navas's notes wer e reviewed and as above. Past Medical History He has a past medical history of Dyslipidemia; Cellulitis and abscess of leg (09/27/2009); Obesity; Vitamin d deficiency; Diabetes mellitus, type 2 (1999); Diabetic foot ulcer (); Arthritis (09/15/2012); Hypertension (2001); Chronic kidney disease (1999); Heart murmur; Recurrent UTI; BPH with urinary obstruction; Hepatitis C (2006); Onychia and paronychia of toe (04/2012); and Dysuria (05/2012). Past Surgical History He has past surgical history that includes Knee arthroscopy (2006 & 2007); Tonsillectomy (); Right arm laceration repair (1977); Left shoulder surgery (1979); and Left forearm igor angelica for fracture (1985). Allergies Allergen Reactions Amlodipine Besylate Unknown Metformin Diarrhea Medications: He has a current medication list which includes the following prescription(s): aspirin, brenda rvastatin, cholecalciferol, diltiazem, furosemide, insulin glargine, lisinopril, metoprolol, omeprazole, sitagliptin, and sodium bicarbonate. Family History: His family history includes Cirrhosis in his mother and Other (See Comment) in his father. There is no history of Kidney disease. Social History: He reports that he quit smoking about 20 years ago. His smoking use included Cigarettes. He smoked 0 packs per day. He has never used smokeless tobacco. He reports that he drinks alco hol. He reports that he does not use illicit drugs. Review of Systems General: []Weight loss/gain (over 10 lbs) []Fever/chills []Night sweats Hematologic: []Bleeding/brusing tendencies []Blood transfusion []Anemia Heent: []Hearing loss []Vision loss []Sinus problems/nosebleeds []Hoarseness Respiratory: []Wheezing []Shortness of breat []Cough []Spitting up blood []On oxygen Cardiac: []Chest pain []Palpitations/heart racing [x]Swelling of ankles/hands []Unusual shortness o f breath []Difficulty sleeping flat Gastrointestinal: []Nausea/vomiting []Difficulty swallowing []Heartburn []Loss of appetite []Abdominal pain []Stomach Ulcers []Diarrhea []Constipation []Blood in stool Vascular: []Santiago/TIAs []Fainting []Difficulty with speech [x]Leg cramps []Pain in feet/legs at rest []Foot ulcers/sores []Varicose veins []Phlebitis/blood clots Musculoskeletal: []Joint stiffness/swelling []Join pain []Back pain []Arthritis []Gout Urologic: []Blood in urine []Frequent urination at night []Burning/painful urination []Kidney stones []Difficulty urination []Sexual difficulties Neuro/Psychiatric: []Headaches []Seizures []Depression []Pain/anxiety attacks []Memory loss or confusion Objective BP 156/80 | Pulse 68 | Temp 36.7 C (98 F) (Temporal) | Resp 16 | Ht 1.854 m (6' 1") | W t 134.038 kg (295 lb 8 oz) | BMI 38.99 kg/m2 | SpO2 97% General Appearance: Alert, cooperative, no distress, appears stated age Head: Normocephalic, without obvious abnormality, atraumatic Eyes: PERRL, conjunctiva/corneas clear, EOM's intact Ears: Adequate hearing Nose: Nares normal, septum midline. Throat: Teeth and gums normal, Mallanpati 4 Neck: Supple, symmetrical, no adenopathy, no neck bruits Lungs: Breath sounds are equal bilaterally, no wheezes or crackles Chest Wall/Back: No tenderness or deformity. No CVA Tenderness, no pacemaker Heart: Regular rate and rhythm, no murmur. Abdomen: Soft, non-tender, no pulsatile nor other masses, no hernia in supine position , no scars. Extremities: RIGHT arm Radial 2 +, forearm veins visible. LEFT arm Radial 2 +, forearm veins visible. Skin: Hemosiderin bialteral ankles Ulceration Right plantar surface. Edema: 1+. Neurologic: Cranial nerves II-XII grossly intact, UE motor Normal , Gait normal Assessment Celso was seen today for new patient. Diagnoses and associated orders for this visit: Chronic kidney disease (ckd), stage v 2. Diabetes mellitus Plan 1)Due to renal failure recommend proceeding with placement of peritoneal dialysis catheter. Risks and possible complications including bleeding, infection, catheter plugging, malposi tion and infection, injury to abdominal structures, clots in legs, pulmonary emboli, PA, st roke and was explained. No guarantees given or implied. Patient understands and wish es to proceed. Return to clinic in 1-2 weeks post-operatively. Artem Angelo MD CC: Frances Obrien MD documented in this encounter Plan of Treatment + + +--------+ + + | Name | Type | Priori | Associated Diagnoses | Order Schedule | | | | ty | | | + + +--------+ + + | Ambulatory referral | Outpatient | Routin | Chronic kidney | Ordered: 05/27/2013 | | to General Surgery | Referral | e | disease (CKD), stage | | | | | | V (HCC) | | + + +--------+ + + documented as of this encounter Visit Diagnoses + + | Diagnosis | + + | Chronic kidney disease (CKD), stage V (HCC) - Primary Chronic kidney disease, Stage V | + + documented in this encounter
--- OUTSIDE RECORDS SUMMARY | ~2020-03-04 | XMS | Encounter Summary ---
Demographics + + + | Address | [address] | | | [place] [address] | + + + | Home Phone | | + + + | Preferred Language | Unknown | + + + | Marital Status | Single | + + + | Yarsani Affiliation | Unknown | + + + | Race | or | + + + | Ethnic Group | Not or | + + + Author + + + | Author | [facility] | + + + | Organization | [facility] | + + + | Address | Unknown | + + + | Phone | Unavailable | + + + Support + + +---------+ + | Name | Relationship | Address | Phone | + + +---------+ + | Delroy Case | ECON | Unknown | Unavailable | + + +---------+ + | Srinivas Caro | ECON | Unknown | | + + +---------+ + Care Team Providers + +------+ + | Care Credit Consultant Name | Role | Phone | + +------+ + | Frances Obrien MD | PCP | | + +------+ + Reason for Visit + + + | Reason | Comments | + + + | Financial Review | | + + + Encounter Details +--------+ + + + + | Date | Type | Department | Care Team | Description | +--------+ + + + + | 05/11/ | Documentati | Clinical | Aaron Meyers | Financial Review | | 2013 | on | Transplant Services | [address] | | | | | [address] | [place], | | | | | [place], | [place] | | | | | [place] | | | | | | [phone] | | | +--------+ + + + [...]
--- OUTSIDE RECORDS SUMMARY | ~2020-03-04 | XMS | Encounter Summary ---
Demographics + + + | Address | [address] | | | [place] [address] | + + + | Home Phone | | + + + | Preferred Language | Unknown | + + + | Marital Status | Single | + + + | Alevism Affiliation | Unknown | + + + | Race | or | + + + | Ethnic Group | Not or | + + + Author + + + | Author | [facility] | + + + | Organization | [facility] | + + + | Address | [...] Team Providers + +------+ + | Care Assembler For Puller Over Machine Name | Role | Phone | + +------+ + | Frances Obrien MD | PCP | | + +------+ + Reason for Visit + + + | Reason | Comments | + + + | Transplant Form | | | Update | | + + + Encounter Details +--------+ + + + + | Date | Type | Department | Care Team | Description | +--------+ + + + + | 05/08/ | Abstract | Clinical | Baron Atkins, | Transplant Form | | 2013 | | Transplant Services | [address] | Update | | | | [address] | [address] | | | | | [place], | [place], [place] | | | | | [place] [address] | [address] | | | | | [phone] | [phone] | | | | | | | [...]
--- OUTSIDE RECORDS SUMMARY | ~2020-03-04 | XMS | Encounter Summary ---
Demographics + + + | Address | [address] | | | [place] [address] | + + + | Home Phone | | + + + | Preferred Language | Unknown | + + + | Marital Status | | + + + | Sikh Affiliation | 1041 | + + + | Race | Unknown | + + + | Ethnic Group | Unknown | + + + Author + + + | Author | [facility] | | | and Scarana | + + + | Organization | [facility] | [...] Team Providers + +------+ + | Care Hydraulic Rockbreaker Operator Name | Role | Phone | + +------+ + PCP | Unavailable | + +------+ + Reason for Visit +---------+ + | Reason | Comments | +---------+ + | Results | | +---------+ + Encounter Details +--------+ + + + + | Date | Type | Department | Care Team | Description | +--------+ + + + + | 05/14/ | Telephone | [facility] [place] | Emmanuelthalrenetta, | Results | | 2012 | | NEPHROLOGY [address] | [place] [address] | | | | | [address] | [address], [place] | | | | | [place], [place] | [address] [place] | | | | | [address] | [address] | | | | | [phone] | | | +--------+ + + + [...]
--- OUTSIDE RECORDS SUMMARY | ~2020-03-04 | XMS | Encounter Summary ---
Demographics + + + | Address | [address] | | | [place] [address] | + + + | Home Phone | | + + + | Preferred Language | Unknown | + + + | Marital Status | | + + + | Rastafarian Affiliation | 1041 | + + + | Race | Unknown | + + + | Ethnic Group | Unknown | + + + Author + + + | Author | [facility] | | | and [place] | + + + | Organization | [facility] | | [...] Team Providers + +------+ + | Care Cloth Folder Machine Name | Role | Phone | + +------+ + PCP | Unavailable | + +------+ + Reason for Visit + + + | Reason | Comments | + + + | Vascular Access | Removal of pic line | | Problem | | + + + Encounter Details +--------+ + + + + | Date | Type | Department | Care Team | Description | +--------+ + + + + | 10/17/ | Telephone | [facility] [place] | Clint Orozcoias | Vascular Access | | 2019 | | NEPHROLOGY [address] | M, DO [address] | Problem (Removal of | | | | [address] | [place], [address] | pic line) | | | | [place], [place] | [place] | | | | | [address] | [address] | | | | | [phone] | | | +--------+ + + + [...]
--- OUTSIDE RECORDS SUMMARY | ~2020-03-04 | XMS | Encounter Summary ---
Demographics + + + | Address | [address] | | | [place] [address] | + + + | Home Phone | | + + + | Preferred Language | Unknown | + + + | Marital Status | | + + + | Anabaptism Affiliation | 1041 | + + + | Race | Unknown | + + + | Ethnic Group | Unknown | + + + Author + + + | Author | [facility] | | | and [place] | + + + | Organization | [facility] | | | and [place] | [...] Team Providers + +------+ + | Care Tooth Cutter Contact Wheel Name | Role | Phone | + [...] | unspecified | MD [address] | FLUTE TEACHER [address] | | | | | type | [place] [address] | [place], [place] | | | | | diabetes | [address] [place] | [address] [place] | | | | | mellitus | [place], [place] | [place] | | | | | with renal | [address] | [address] Phone: | | | | | manifestatio | Phone: | [phone] | | | | | ns, | [phone] | Fax: | | | | | uncontrolled | Fax: | [phone] | | | | | [phone] | [phone] | | | | | | (HCC) [...] + + | 02/18/ | Office | [facility] | Lexi Kuo, | HCV antibody | | 2015 | Visit | GASTROENTEROLOGY | [address] | positive (Primary | | | | [address] | [place] [address] [place] | Dx); ESRD (end stage | | | | [address] [place], [place] | [place] [address] | renal disease) on | | | | [address] | [phone] | dialysis (HCC); | | | | [phone] | | Anemia, chronic | | | | | [place], | disease | | | | | FLUTE TEACHER [address] [place], | | | | | | [place] [address] [place] | | | | | | [place] [address] | | | | | | [phone] | | | | | | | [...]
--- OUTSIDE RECORDS SUMMARY | ~2020-03-04 | XMS | Encounter Summary ---
Demographics + + + | Address | [address] | | | [place] [address] | + + + | Home Phone | | + + + | Preferred Language | Unknown | + + + | Marital Status | | + + + | Lutheran Affiliation | 1041 | + + + | Race | Unknown | + + + | Ethnic Group | Unknown | + + + Author + + + | Author | [facility] | | | and [place] | + + + | Organization | [facility] | | | and [place] [...] Team Providers + +------+ + | Care Morning News Producer Name | Role | Phone | + +------+ + PCP | Unavailable | + +------+ + Reason for Visit +--------+ + | Reason | Comments | +--------+ + | Other | | +--------+ + Encounter Details +--------+ + + + + | Date | Type | Department | Care Team | Description | +--------+ + + + + | 06/30/ | Telephone | [facility] [place] | [place], | Other | | 2012 | | NEPHROLOGY [address] | [address] | | | | | [address] | [address], [place] | | | | | [place] | [address] [place] | | | | | [address] | [address] | | | | | [phone] | | | +--------+ + + + [...]
--- OUTSIDE RECORDS SUMMARY | ~2020-03-04 | XMS | Encounter Summary ---
Demographics + + + | Address | [address] | | | [place] [address] | + + + | Home Phone | | + + + | Preferred Language | Unknown | + + + | Marital Status | | + + + | Religion Affiliation | 1041 | + + + | Race | Unknown | + + + | Ethnic Group | Unknown | + + + Author + + + | Author | [facility] | | | and [place] | + + + | Organization | [facility] | | | and [place] [...] Team Providers + +------+ + | Care Records Manager Name | Role | Phone | [...] Closed | | Radiology | Diagnoses | | [facility] | | | | | Right renal | [place], | Imaging [address] | | | | | mass | [place], | [place] | | | | | Procedures | MULTIMEDIA MANAGER [address] [place] | | | | | MRI Abdomen | [address], | [place] | | | | | wo Contrast | [address] | [address] | | | | | 10/18>PEND | REZA RUCKER, | Phone: | | | | | [facility]>MRI ABDOM | [place] [address] | [phone] | | | | | | Phone: | Fax: | | | | | | [phone] | | | | | | | Fax: | | | | | | | [phone] | | +--------+--------+ + + + + Encounter Details +--------+ + + + + | Date | Type | Department | Care Team | Description | +--------+ + + + + | 10/28/ | Hospital | [facility] | [place], | Right renal mass | | 2012 - | Encounter | MED CTR XRAY [address] | Sarai Osei, MULTIMEDIA MANAGER [address] | | | | | [place] | [place] [facility] | | | 10/30/ | | [place] [address] | [address] [place] [address] | | | 2012 | | [phone] | [address] | | | | | | | [...] +---------+ + + | atorvaSTATin | Take 10 mg by mouth | | 0 | | | | (LIPITOR) 10 mg | Daily. | | | | 3 | | tablet | | | | | | + + + +---------+ + + | cholecalciferol | Take 10,000 Units by | | 0 | | | | (VITAMIN D-3) 5000 | mouth Daily. | | | | 3 | | UNITS TABS | | | [...] (LASIX) | Take 1 tablet by | | 0 | 10/18/19 | | | 20 mg tablet | mouth Daily. | | | 13 | 3 | + [...] + + | sodium bicarbonate | Take 1 tablet by | 60 | 5 | 10/18/19 | | | 650 mg tablet | [...] | + +--------+ + + + | MRI ABDOMEN WO | Routin | 10/28/2012 | Right renal mass | Results for this | | CONTRAST | e | 6:10 PM | | procedure are in the | | | | PST | | results section. | + +--------+ + + + documented in this encounter Results MRI Abdomen wo Contrast (10/28/2012 6:10 PM PST) + + | Specimen | + + | | + + + + + | Narrative | Performed At | + + + | [facility] | [place] | | Department [address] [place] [address] | [facility] | | [ rep [address]] [ rep [facility] | | st zip] Signed | - IMAGING | | | | | Patient Name: SERGEY,CELSO Pena Physician: | | | FACK. : 1960 Age: 52 Sex: M Unit #: [id number] | | | Exam Date: 10/28/12 Location: [facility] | | | Report #: [id number] Page: | | | %(RAD)RES..mtdd.print.filter("pg") of %(RAD) | | | RES..mtdd.print.filter("tpg") | | | | | | Accession Number: [id number] | | | MRI ABDOMEN WITHOUT IV CONTRAST CLINICAL HISTORY: A | | | 52-YEAR-OLD MALE WITH ADVANCED KIDNEY DISEASE, UNDERGOING EVALUATION | | | FOR RIGHT RENAL MASS SEEN ON ULTRASOUND. COMPARISON: | | | Renal ultrasound 10/15/2012 and 03/29/2010. TECHNIQUE: | | | Axial T10 in- and rtr-jm-bnjyk, T1 VIBE, T1 fat-sat VIBE, T2 HASTE; | | | coronal T2 HASTE and T2 fat-sat HASTE MRI images of the abdomen were | | | obtained without IV contrast. FINDINGS: The liver is | | | normal in appearance. The gallbladder is relatively decompressed, | | | and otherwise unremarkable. The pancreas is normal in appearance, | | | as is the spleen. The visualized portions of the stomach, | | | duodenum, and small bowel are normal in appearance. The visualized | | | portions of the large bowel are unremarkable. No pathologically | | | enlarged mesenteric lymph nodes are evident. The visualized vascular | | | structures are normal. Bilateral adrenal glands are normal. The | | | left kidney and collecting system is normal in appearance. There | | | is no evidence of hydronephrosis of the left kidney. Mild | | | perinephric stranding on the left is noted. In the right | | | kidney, extending from the mid pole, is a 1.7 x 2.2 x 1.4 cm exophytic | | | lesion which is hypointense in signal on T1 and hyperintense in | | | signal on T2-weighted images, with intermediate- intensity signal on | | | the T1 fat-sat VIBE sequences. There is a thin septation within the | | | lesion, which has the appearance of two cysts abutting each other. | | | This lesion is well-circumscribed and does not contain surrounding | | | soft tissue rim. A lesion with identical signal characteristics | | | is seen at the inferior pole of the right kidney measuring 11 mm x | | | 12 mm x 13 mm. The right kidney is otherwise unremarkable in | | | appearance. There is no evidence of hydronephrosis. The | | | visualized osseous structures, muscular structures, and soft tissues | | | of the body wall are normal. IMPRESSION: RIGHT KIDNEY | | | LESIONS, DESCRIBED ABOVE, WITH IMAGING APPEARANCE SUGGESTIVE OF | | | PROTEINACEOUS CYSTS. THIS IS IN KEEPING WITH THE RELATIVE | | | STABILITY COMPARED WITH THE ULTRASOUND GOING BACK TO 2009. LACK | | | OF IV CONTRAST LIMITS THE ABILITY TO MAKE THIS DIAGNOSIS WITH | | | DEFINITIVENESS. IF THERE IS CONTINUED CLINICAL SUSPICION FOR | | | NEOPLASTIC LESION, NONENHANCED CT MAY BE HELPFUL FOR FURTHER | | | EVALUATION, LESIONS DEMONSTRATING GREATER THAN [address] | | | ON NONENHANCED CT HAVE A QUITE HIGH LIKELIHOOD OF BEING | | | HEMORRHAGIC/PROTEINACEOUS CYSTS. Dictated Date/Time: | | | 10/28/2012 18:10 Transcribed Date/Time: 10/28/2012 20:47 | | | Architecture Instructor: <<Signature on File>> | | | | | | Kehinde Willis MD10/29/121939 <Electronically signed by Kehinde | | | Kristi Willis MD> Kehinde Willis MD 10/28/121809 | | | Architecture Instructor: Tej [id number] | | | [place] | | + + + + + + + + | Performing | Address | City/State/Zipcode | Phone Number | | Organization | | | | + + + + + | [address] | [address] | [place] | [phone] | | [facility] | | [address] | | | - IMAGING | | | | + + + + + documented in this encounter Visit Diagnoses + + | Diagnosis | + + | Right renal mass Unspecified disorder of kidney and ureter | + + documented in this encounter
--- OUTSIDE RECORDS SUMMARY | ~2020-03-04 | XMS | Encounter Summary ---
Demographics + + + | Address | [address] | | | [place] [address] | + + + | Home Phone | | + + + | Preferred Language | Unknown | + + + | Marital Status | Single | + + + | Baptist Affiliation | Unknown | + + + | Race | or | + + + | Ethnic Group | Not or | + + + Author + + + | Author | [facility] | + + + | Organization | [facility] In[facility] | + + + | Address | [...] Team Providers + +------+ + | Care Python Django Developer Name | Role | Phone | + +------+ + | Frances Obrien MD | PCP | | + +------+ + Reason for Visit + + + | Reason | Comments | + + + | Pre Transplant | Intake | | Workup | | + + + Encounter Details +--------+ + + + + | Date | Type | Department | Care Team | Description | +--------+ + + + + | 05/05/ | Telephone | Clinical | Colleen mAaro, | Pre Transplant | | 2013 | | Transplant Services | RN [address] | Workup (Intake) | | | | [address] | [place] | | | | | [place], | [place], [place] | | | | | [place] [address] | [address] | | | | | [phone] | | | +--------+ + + + [...]
--- OUTSIDE RECORDS SUMMARY | ~2020-03-04 | XMS | Encounter Summary ---
Demographics + + + | Address | [address] | | | [place] [address] | + + + | Home Phone | | + + + | Preferred Language | Unknown | + + + | Marital Status | | + + + | Mandaeism Affiliation | [id number] | + + + | Race | Unknown | + + + | Ethnic Group | Unknown | + + + Author + + + | Author | [facility] | | | and [place] | + + + | Organization | [facility] | | | and [place] [...] Team Providers + +------+ + | Care Senior C Developer Name | Role | Phone | + +------+ + PCP | Unavailable | + +------+ + Reason for Visit + + + | Reason | Comments | + + + | Foot Pain | | + + + | Fever (9 Weeks To 74 | | | Years) | | + + + Auth/Cert +--------+--------+ + + + + | Status | Reason | Specialty | Diagnoses / | Referred By | Referred To | | | | | Procedures | Contact | Contact | +--------+--------+ + + + + | | | | Diagnoses | | | | | | | Cellulitis, | | | | | | | unspecified | | | | | | | cellulitis | | | | | | | site | | | +--------+--------+ + + + + Encounter Details +--------+---------+ + + + | Date | Type | Department | Care Team | Description | +--------+---------+ + + + | 09/07/ | Surgery | [facility] | Toby Schuster, | INCISION AND | | 2018 | | MED CTR OR INTRA OP | DPM [address] | DRAINAGE LEFT FOOT | | | | [address] | [place] | | | | | [place] | [address] | | | | | [address] | [phone] | | | | | [phone] | | | +--------+---------+ + + + [...] + + + | Blood Pressure | 122/77 | 09/11/2018 5:28 AM | | | | | PST | | + + + + + | Pulse | 104 | 09/11/2018 5:28 AM | | | | | PST | | + + + + + | Temperature | 36.4 C (97.5 F) | 09/11/2018 5:28 AM | | | | | PST | | + + + + + | Respiratory Rate | 20 | 09/11/2018 5:28 AM | | | | | PST | | + + + + + | Oxygen Saturation | 97% | 09/11/2018 5:28 AM | | | | | PST | | + + + + + | Inhaled Oxygen | - | - | | | Concentration | | | | + + + + + | Weight | 121.5 kg (267 lb | 09/09/2018 4:17 PM | | | | 13.7 oz) | PST | | + + + + + | Height | 185.4 cm (6' 1") | 09/05/2018 5:05 PM | | | | | PST | | + + + + + | Body Mass Index | 35.34 | 09/05/2018 5:05 PM | | | | | PST | | + + + + + documented in this encounter Discharge Summaries Uche Sánchez DO - 09/15/2018 11:[address] [address] DISCHARGE SUMMARY UCHE SÁNCHEZ DO Patient: ISIDRA RINCON Admitting: ELIZABETH VIVAS MR #: [id number] LOC: PT TYPE: Adm Date: 09/05/2018 : 1960 DATE OF ADMISSION: 09/05/2018 DATE OF DISCHARGE: 09/11/2018 DISCHARGE DIAGNOSES: 1. Deep-seated soft tissue infection of left foot with acute osteomyelitis of left toes, m etatarsophalangeal joints secondary to MRSA on cultures. 2. Status post I&D of left foot with removal of second and third toes, metatarsal heads o f left foot, 09/07/2018, Dr. Toby Schuster. 3. New onset A. flutter -- with controlled ventricular rate. 4. 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 5. Hypertension - good control. 6. Type 2 diabetes mellitus, requiring insulin, with nephropathy, neuropathy. 7. Anemia secondary to CKD-- previously on EPO. 8. Chronic kidney disease/mineral and bone disorder(CKD/MBD) - previously on Hectorol, Shilpa phoro. 9. Hyperlipidemia -- on statin therapy. 10. Probable PAD distal extremities with generalized evidence of calcific stenosis of the bilateral peroneal arteries on CTA, CT angiogram, lower extremities, 09/10/2018. CONSULTATIONS: 1. Podiatry, Dr. Toby Schuster. 2. Cardiology, Dr. Denise Comer. PROCEDURE: 1. I&D of left foot with removal of second and third toes, metatarsal heads of left foot, 09/07/2018, Dr. Toby Schuster. 2. PICC line, right arm, 09/08/2018. 3. MRI without gadolinium, 09/06/2018: Evidence of acute osteomyelitis, second, third met atarsals proximal phalanges, small deep abscess in second and third digits, extensive myosit is, cellulitis and deep ulceration on the plantar aspect of the forefoot at the level of the second metatarsal head. 4. Echocardiogram, 09/10/2018: LVEF = 40-45%, mild MR, moderate TR, mild-moderate global hypokinesis of LV. HOSPITAL COURSE: This is a pleasant, cooperative 58-year-old male who is k nown to the nephrology service from the [facility] in [place], [place]. He has been outpatient dialysis there for some time. Approximately 6 days prior to admissi on, he developed increasing tenderness, swelling and then this evolved into fever and chills to 102. He was given a trial of outpatient antibiotics at [facility] and on the da y of admission, came to the ER with fever, chills, and marked increased swelling in his left foot. He had been battling a plantar ulcer, which was dry previously for several weeks and then acutely worse in the last 5 days. Plain film did show subluxation with dislocation of the second phalanx's, with some small p ockets of gas, distal toe of the left foot. He is admitted to the Hospitalist Service here, started on vancomycin/Zosyn. Blood cultures were obtained and wound cultures were obtained. 10/15 blood cultures grew Sta phylococcus aureus, which was MRSA but given the fact it was one out of 8 bottles, this was felt to be a contaminant. However, subsequently his wound cultures and bone material from t he preoperative culture and the subsequent material submitted with bone from wound cultures at the time of surgery grew 3+ Staphylococcus aureus, which was oxacillin resistant. It wa s sensitive to rifampin, tetracycline, TMP/SMZ, and vancomycin with a ESTEBAN = < 0.5 mcg/mL. A fter receipt of the wound cultures from surgery, his antibiotics were consolidated to vancom ycin/Unasyn. An initial MRI on admission showed evidence of acute osteomyelitis of the seco nd and third metatarsals in the second and third toes of the left foot with deep-seated absc ess with fluid collections in the foot and some extensive myositis. Dr. Toby Schuster was consulted on 09/06/2018 and he promptly saw the patient. He was made N PO and taken to the OR on the afternoon of 09/07/2018 for local wound debridement, disarticu lation of the distal metatarsals, removal of the second and third digits of the left foot an d wash out. He was continued on broad-spectrum antibiotics. He did fairly well from there except on Postoperative day 2, he has noticed on rounds to [facility] ve an irregular heartbeat. An EKG was obtained. He was found to be in atrial flutter with a controlled ventricular response. At that point, his vasodilators and metoprolol succinate had been on hold for 24 hours due to low normal blood pressure at the time of surgery and h is background SIRS. Although he was afebrile. He was placed on antiplatelet therapy for 4 8 hours with ASA 160 mg daily and started on metoprolol tartrate 25 mg b.i.d. His ventricular rate remained 80-90 with a stable blood pressure on this regimen. He was seen by Cardiology, Dr. Denise Comer, who felt that given his anemia due to CKD,wit h postop anemia and recent infection, there is a good probability in the next 3 weeks he co uld spontaneously convert back into NSR and given the fact that he is relatively asymptomati c from his atrial flutter, he recommended rate control and anticoagulation while finishing h is treatment for his underlying infection. He did have a CTA done for screening for PAD this admission, 09/10/2018 which showed some s ubcutaneous emphysema, which was felt secondary to postoperative changes. There was evidenc e of fluid collection with phlegmon 4.1 x 3.2 cm in the left forefoot. I discussed this at length with Dr. Schuster who felt this was postoperative changes due to t he limited localized bleeding the patient had on his first day of surgery. He suggested fallon t this was packed with antibiotic-impregnated packing and given the fact that he has IV anti biotics that this would need to be watched and agreed to see him back promptly in 1 week to reevaluate this. The patient denies any fever, chills, or rigors and looked clinically sta ble at this point. The plan is to give him 6 weeks of IV antibiotics via his PICC line. Brandee was consulted a s well as [facility] for him to get Vancomycin 1 gram IV every Sunday and Sun through 10/18/2018. Also, he will be given Unasyn 3 grams IV daily through 10/18/2018 t o cover him for anaerobes and gram negatives as there is a good probability this deeper infe ction is likely polymicrobial given his Type 2 diabetes, and CKD. I did have a valerie discussion with Herman there is no guarantee that his foot could be salvag ed. I did have a valerie discussion that there is a 50% possibility that he could still lose his foot and this could culminate in BKA, even under the best of care and best of circumsta nces. He appears to understand this. For now, he would like to continue local wound care, IV antibiotics, close followup with his foot surgeon, Dr. Schuster and see if this foot could still be salvaged at this point as much of it is possible. DISCHARGE MEDICATIONS: 1. Vancomycin 1 gram IV every Sunday and Sunday, via [place], through 10/18/2018. 2. Ampicillin sulbactam 3 grams IV piggyback daily, through 10/18/2018 via [place]. 3. Apixaban 2.5 mg b.i.d. 4. Nephro-Tressa 1 daily. 5. Vitamin D3 at 5000 units daily. 6. Sensipar 60 mg daily. 7. Furosemide 80 mg daily. 8. Vicodin 5/325 mg one q.12 hours p.r.n. for pain, #40. 9. Artificial tears both eyes, daily p.r.n. 10. Lantus 25 units subcutaneous a.m. 11. Metoprolol succinate 50 mg daily. 12. Omeprazole 20 mg daily. 13. Rosuvastatin 20 mg daily. 14. Velphoro 500 mg before meals and at bedtime. He will have a followup appointment with Dr. Toby Schuster at 0900, 09/16/2018. I will see him in followup at the [facility], [place], [place], in 1 week. [facility] Denise Comer in 2-1/2 weeks to follow up on his atrial flutter. I did discuss with Herman that atrial flutter and atrial fibrillation can be risk factor for stroke termination clerk. I discussed that he does need to be on apixaban 2.5 mg b.i.d. for CVA pro phylaxis. I told him that he should not take ibuprofen or ASA while he is on this as they w ould additionally thin his blood. Discharge diet: is high protein, < 60 mEq potassium, < 1000 mg phosphorus, < 1000 mL of fl uid. His weight at the time of discharge = 121.5 kilograms. Condition on discharge was improved. He is advised not to take any blood pressures or have any needle sticks in his left arm due to the AVF in that arm. I greatly Appreciate Dr. Toby Schuster and Dr. Denise Comer's help with Mr. Rincon's medical [facility]. I did discuss his case with his PCP, Dr. Navjot Calloway for long-term followup as Herman obtain s majority of his primary care through the [facility]. UCHE SÁNCHEZ DO Dictated by UCHE SÁNCHEZ DO 09/15/2018 11:22:28 Transcribed on 09/15/2018 15:59:51 by in job# [id number] Confirmation #: [id number] cc: FRANCESCO COMER MD [facility] [place], [place]. documented in thi s encounter Discharge Instructions Patient Instructions Elvira Coon, RN - 09/08/2018 10:32 AM PSTRepetative movement can cause irritation at the insertion site. If you develop tenderness at the site, report this to your nurse and apply a warm pack. Report redness at the site or new onset of fever or arrhythmias. Do NOT lift more than 10 lb. Avoid strenuous activities such as hammering, weight lifting and extensive vacuuming. The dressing needs replaced every 7 days, and sooner if it becomes loose, soiled or wet. AttachmentsThe following attachments cannot be sent through Care Everywhere.Caring for Your Peripherally Inserted Central Catheter (PICC), Discharge Instructions for ()eris laughlin in this encounter Medications at Time of Discharge + + + +---------+ + + | Medication | Sig | Dispensed | Refills | Start | End Date | | | | | | Date | | + + + +---------+ + + | B Uszbbmy-L-Ligls | Take 1 mg by mouth | 30 each | 11 | 06/26/20 | | | Acid (OLEG-TRESSA RX) | Daily. | | | 13 [...] | | | g) 3 gIndications: | [place]. Indications: | | | | | | [...] documented as of this encounter Progress Notes Patrick Jack PharmD - 09/11/2018 10:30 AM PSTFormatting of this note might be different f rom the original. PHARMACY SERVICES: ADMISSION MEDICATION REVIEW Isidra Rincon is a 58 y.o. male admitted on 09/05/2018. Patient is somewhat a reliable historian. Location of Patient when reviewed: ED X Medical Floor Patient s prior to admit medication and over the counter (OTC) medications/herbal supplem ents list obtained from: X Verbal interview X Patient able to recall SOME Name, strength, and directions X Doctor's office: [facility] Dr. Ernesto Sherman X Pharmacy list names: [facility] X [employer] insurance reported information X Outside Information Vaccines up to date? Yes No Unsure Influenza X Pneumococcal X Tdap X Shingles X Noted medications discrepancies or medication-related issues: Allergy Alerts: Allergy Added: Reaction: Medication(s) affected: Fenofibrate Acidosis Dosage change: Medication: Prior to Admission Sig: Correct sig: Patient taking differently as: Cholecalciferol 5000 unit cap 2000 units by mouth daily 1 cap by mouth daily Doxercalciferol 2 mcg/ml inj Inject 13 mcg into the vein 3 times per week 16 mcg into the v ein three times per week at dialysis. On Sunday, Sunday, Sunday. Last injection: 09/04/2018 Epoetin 3000 units/ml inj 3200 units under the skin 3 times weekly 3000 units under the sk in 3 days per week at dialysis on Sunday, Sunday and Sunday Last injection: 09/04/2018 Insulin Glargine 100 units/ ml inj 110 units under the skin nightly 55 units under the ski n twice daily 25 units under the skin daily Patient states his blood sugar has been too low to use as prescribed. Last filled: 04/23/2018 #30 ml Omeprazole 20 mg cap 1 cap by mouth every morning before breakfast 1 cap by mouth every da y as needed for stomach 1 cap by mouth every morning Medication added: Medication: Prior to Admission Sig: Hydrocodone-acetaminophen 5-325 mg tab 1 tab by mouth 3 times daily as needed for pain Last filled: 09/04/2018 #10 tabs Sulfasulfamethoxazole and trimethoprim 800-160 mg tab 0.5 tab by mouth every 24 hours franci e after dialysis Last filled: 09/03/2018 #7 tabs Patient only took 1 tab before being admitted Cephalexin 250 mg cap 1 cap by mouth every 24 hours until all taken for infection Last filled 09/03/2018 #14 caps Patient only took 1 tab before being admitted Artifical tears ophth deon 1 drop into each eye daily as needed for dry eyes Removed therapy: Medication: Prior to Admission Sig: Reason for Removal: Glimepiride 1 mg tab 1 tab by mouth daily Therapy complete Sitagliptin 100 mg tab 25 mg by mouth daily Therapy complete discontinued by Whit Oct 2016 Patient denies any use of recreational substances, tobacco or alcohol. Other: Insulin managed by SAMARA Donaldson at [facility] Patient recently had a Ceftriaxone 1 gm injection administered at [facility] on 09/03/18 Medication: Prior to Admission Sig: Patient taking differently QUALITY ASSURANCE MONITOR BODY as: Cinacalcet 60 mg tab 1 tab by mouth daily Not taking patient states this was discontinued. However, no records indicate this was discontinued Sucroferric oxhydroxide 500 mg chew tab 1 tab by mouth four times daily (before meals and n ightly) Patient not taking patient states this was discontinued. However, This is still an active order per [facility]. Furosemide 80 mg tab 1 tab by mouth daily 1 tab by mouth four times per week. Patient feels it is a waste to take on days he goes to dialysis. (Sunday, Sunday and ). Best possible QUALITY ASSURANCE MONITOR BODY medication list after pharmacy review: PT REPORTED TAKING NOT TAKING Medication Sig Last Dose Dispense Doc. Provider aspirin 81 mg EC tablet Take 81 mg by mouth Daily. Taking Historical Provider, MD Arian BalbuenaTwgjcmo-[id number]-Thpgz Acid (OLEG-TRESSA RX) 1 MG TABS Take 1 mg by mouth Daily. Taking 30 each C helane R Fackenthall, LEVEL VIAL CURVATURE GAUGER cephalexin (KEFLEX) 250 mg capsule Take 250 mg by mouth Daily. Until all taken. Take after dialysis on days you have dialysis Taking Francesco Quinones PA-C Cholecalciferol (VITAMIN D3) 5000 UNITS CAPS Take 5,000 Units by mouth Daily. Taking Hist orical ProviderMD cinacalcet (SENSIPAR) 60 MG tablet Take 1 tablet by mouth Daily. Patient not taking: Repo rted on 09/11/2018 Not Taking 30 tablet Uche Sánchez DO doxercalciferol (HECTOROL) 2 mcg/mL injection Inject 16 mcg into the vein Three times a we ek. at dialysis. Taking Charan Pride MD epoetin padilla (EPOGEN,PROCRIT) 3,000 units/mL injection Inject 3,000 Units under the skin T hree times a week. At dialysis Taking Charan Pride MD furosemide (LASIX) 80 mg tablet Take 80 mg by mouth Daily. Taking Differently Charan Pride MD HYDROcodone-acetaminophen (NORCO) 5-325 mg per tablet Take 1 tablet by mouth 3 times daily as needed for Pain. Taking Francesco Quinones PA-C Hypromellose (ARTIFICIAL TEARS OP) Place 1 drop into both eyes Daily as needed (dry eyes). Taking Charan Pride MD insulin glargine (LANTUS) 100 units/mL injection (vial) Inject 55 Units under the skin 2 t imes daily. Taking Differently Francesco Quinones PA-C lisinopril (PRINIVIL,ZESTRIL) 40 MG tablet Take 40 mg by mouth Daily. Taking Charan ivory MD metoprolol (TOPROL-XL) 100 MG 24 hr tablet Take 100 mg by mouth Daily. Taking Charan Pride MD omeprazole (PRILOSEC) 20 mg capsule Take 20 mg by mouth Daily as needed (for stomach). Franci ing Differently Charan Pride MD rosuvastatin (CRESTOR) 20 mg tablet Take 20 mg by mouth Daily. Taking Charan Provider MD sucroferric oxyhydroxide (VELPHORO) 500 mg chewable tablet Take 1 tablet by mouth 4 times daily (before meals and nightly). Patient not taking: Reported on 09/11/2018 Not Taking Naveen Sánchez DO sulfamethoxazole-trimethoprim (BACTRIM DS) 800-160 mg per tablet Take 0.5 tablets by mouth Daily. Taking Francesco Quinones PA-C Medication review performed and electronically signed by Shannan Arguello, Braider Operator 2017 9:29 Patrick Jack PharmD, KEYSHA 09/11/2018 10:30Electronically signed by Patrick Jack PharmD at 1 11/12/2017 10:30 AM Uche Guallpa, DO - 09/10/2018 9:53 PM PSTFormatting of this no te might be different from the original. [facility] [address] [place] [address] PROGRESS NOTE Pt. Name/Age/: Isidra Hernandez Case 58 y.o. 1960 Med. Record Number: [id number] Date of admission: 09/05/2018 NEPHROLOGY HPI - Pt seen at 0830. AFlutter discussed with Dr Comer. Note LVEF = 40-45%, global hypo kinesis, some TR. He had CTA of lower ext's which show some diffuse calcification below the trifurcation of L eft leg, but difficult to say if discreet stenosis. There is mention of a "apparent hypoden se fluid collection/phlegmon measuring 4.1 x 2.8 x 3.2 cm suspicious for an abscess in the forefoot of the left foot ." He denies increased pain. Lab Results Component Value Date POCGLU 122 (H) 09/10/2018 POCGLU 114 (H) 09/10/2018 POCGLU 113 (H) 09/10/2018 POCGLU 98 09/10/2018 EXAM: BP 118/79 | Pulse 110 | Temp 36.7 C (98.1 F) (Oral) | Resp 20 | Ht 1.854 m (6' 1") | Wt 121.5 kg (267 lb 13.7 oz) | SpO2 98% | BMI 35.34 kg/m Tmax 36.7 ( increased 1.5 kg) Intake/Output Summary (Last 24 hours) at 09/10/182153 Last data filed at 09/10/18 1800 Gross per 24 hour Intake 970 ml Output 0 ml Net 970 ml Heart: irregularly, irregular with no S3, murmur or rub. Lungs: CTA bilaterally. Abdomen: Soft, obese, nontender, normoactive bowel sounds. Extremities: 1+ edema, and less erythema, Left foot is diffusely indurated on anterior 2/ 3, tightly wrapped with Coban. Left upper arm AVF has (+) thrill. LAB: Recent Labs 09/10/18 0316 NA 135* K 4.7 CL 100 CO2 25 BUN 38* CREA 7.28* GFRNONAA 8* GLU 151* CALCIUM 7.6* PHOS 4.7* Recent Labs 09/10/18 0316 WBC 7.6 HGB 8.2* HCT 25.9* PLT 313 MCV 95.6 NEUPCT 66.1 LYMPCT 14.7* MONPCT 10.3 EOSPCT 7.0* IMPRESSION 1. POD #3-- s/p I&D of deep seated abscess of Left foot, with Osteo. on MRI. Day #4, Zo syn/Vanc. Temp. is better, however, fluid collection on CTA is concerning? Will discuss wit h . 2. A. Flutter-- rate control is stable, Will use Apixaban for CVA prophylaxis, but may nee d to pause it for now in event pt needs drainage of foot abscess? 3. ESRD 2 to T2DM-- may need HD to remove Apixaban. 4. Anemia 2 to CKD-- on EPO + IV Fe. 5. HTN-- BP is low normal, off of antihypertensives. 6. Type 2 DM, requiring insulin-- stable. 7. CKD/MBD-- stable on Hectorol in past. 8. possible PAD-- no proximal , focal disease on CTA for now. PLAN 1. Change to Unasyn for anaerobes, and Vanc. for the MRSA. 2. Will discuss fluid collection with Dr. Schuster in AM. 3. Hold Apixaban. Not able to have exploration till Apixaban cleared with HD and PTT rech ecked. Located Within [facility] aldLizzy delcid, PharmD - 09/10/2018 1:21 PM PSTFormatting of this note might be different from the darrena l. VANCOMYCIN PER PHARMACY PROTOCOL: Subjective/Objective: Isidra Rincon is a 58 y.o. male admitted on 09/05/18 for cellulitis of left foot. Patiidris johansen currently requires dialysis and is receiving vancomycin for DM foot and SSTI of left foot . Patient has a past medical history of Arthritis (09/15/2012); BPH with urinary obstruction; Diabetes mellitus, type 2 ([facility]) (1999); Diabetic foot ulcer ([facility]) (01/01/12); ESRD (end stag e renal disease) on dialysis ([facility]) (1999); Heart murmur; Hepatitis C (2006); Hyperlipidemia; Hypertension (2001); Obesity; Recurrent UTI; and Vitamin D deficiency. Allergies Amlodipine besylate and Metformin Historical Vancomycin dosing (previous & current encounter): none Min/Max Temp past 24 hours: BP 105/65 | Pulse 88 | Temp 36.5 C (97.7 F) (Oral) | Resp 19 | Ht 1.854 m (6' 1") | Wt 121.5 kg (267 lb 13.7 oz) | SpO2 97% | BMI 35.34 kg/m Vitals with Comments 09/10/2018 09/10/2018 09/10/2018 09/10/2018 SYSTOLIC 150 171 100 105 DIASTOLIC 68 75 57 65 Pulse 91 100 88 88 Temp 96.9 97.2 97.2 97.7 Resp 18 18 17 19 Weight - - - - Height - - - - SPO2 97 98 98 97 BMI - - - - Pain Score - - - - Pain Score - - - - Pain Loc - - - - Pain Edu? - - - - Recent Labs Lab 09/10/18 0316 09/09/18200609/09/18 0431 09/09/18 0430 09/08/18 1112 09/08/18 0450 09/07/18 0515 09/07/18 0016 09/06/18 0555 09/05/18 1725 CREA 7.28* -- -- 9.51* -- 7.56* 5.89* -- 7.48* 6.72* WBC 7.6 -- 6.8 -- 7.6 7.2 6.9 -- 8.1 10.8 CRP -- -- -- -- -- -- -- -- 226.92* -- LACTATE -- -- -- -- -- -- -- -- -- 1.3 VANCORANDOM -- 9.1 -- -- -- -- -- 11.4 -- -- Relevant cultures from previous admits: Date Source Organisms Sensitivities 06/26/13 Wound-PD cath exit site 1. Pseudomonas 2. Klebsiella 1. S: ceftaz, cipro, gent, meropen, tobra 2. S: to all except R to ampicillin Microbiology Results (Last 14 Days by Collected Date with Culture/Sensitivity) Procedure Component Value Units Date/Time Culture, Wound, Smear, w/Anaerobe [[id number]] Collected: 09/07/181123 Order Status: Sent Lab Status: In process Updated: 09/09/18 105 Specimen: Tissue from Toe, Second, Left Narrative: The following orders were created for panel order Culture, Wound, Smear, w/Anaerobe. Procedure Abnormality Status --------- ------ Culture, Wound, Smear[[id number]] Final result Culture, Anaerobic[[id number]] Normal Preliminary result Please view results for these tests on the individual orders. Culture, Wound, Smear [[id number]] (Susceptibility) Collected: 09/07/181123 Order Status: Completed Lab Status: Final result Updated: 09/09/18 105 Specimen: Tissue from Toe, Second, Left Culture 3+ Staphylococcus aureus,Methicillin resistant (MRSA) Comment: *INFECTION PREVENTION ALERT - MRSA* CONTACT PRECAUTIONS REQUIRED. Gram Stain Result 1+ White Blood Cells No organisms seen Susceptibility Staphylococcus aureus,Methicillin resistant (MRSA) Not Specified Ciprofloxacin >=8 ug/mL Resistant Clindamycin 0.25 ug/mL Sensitive Levofloxacin 4 ug/mL Resistant Linezolid 2 ug/mL Sensitive Oxacillin >=4 ug/mL Resistant Penicillin G >=0.5 ug/mL Resistant Rifampin <=0.5 ug/mL Sensitive [1] Tetracycline <=1 ug/mL Sensitive Trimethoprim + Sulfamethoxazole <=10 ug/mL Sensitive Vancomycin <=0.5 ug/mL Sensitive [1] Rifampin should not be used alone for chemotherapy. Culture, Anaerobic [[id number]] (Normal) Collected: 09/07/181123 Order Status: Completed Lab Status: Preliminary result Updated: 09/10/18 1321 Specimen: Tissue from Toe, Second, Left Culture No anaerobes isolated to date. Culture, Wound, Smear, w/Anaerobe [[id number]] Collected: 09/07/18919 Order Status: Sent Lab Status: In process Updated: 09/09/181049 Specimen: Tissue from Foot, Plantar, Left Narrative: The following orders were created for panel order Culture, Wound, Smear, w/Anaerobe. Procedure Abnormality Status --------- ------ Culture, Wound, Smear[[id number]] Final result Culture, Anaerobic[[id number]] In process Please view results for these tests on the individual orders. Culture, Wound, Smear [[id number]] (Susceptibility) Collected: 09/07/18919 Order Status: Completed Lab Status: Final result Updated: 09/09/181049 Specimen: Tissue from Foot, Plantar, Left Culture 1+ Staphylococcus aureus,Methicillin resistant (MRSA) Comment: *INFECTION PREVENTION ALERT - MRSA* CONTACT PRECAUTIONS REQUIRED. Gram Stain Result 3+ White Blood Cells No organisms seen Susceptibility Staphylococcus aureus,Methicillin resistant (MRSA) Not Specified Ciprofloxacin >=8 ug/mL Resistant Clindamycin 0.25 ug/mL Sensitive Levofloxacin 4 ug/mL Resistant Linezolid 2 ug/mL Sensitive Oxacillin >=4 ug/mL Resistant Penicillin G >=0.5 ug/mL Resistant Rifampin <=0.5 ug/mL Sensitive [1] Tetracycline <=1 ug/mL Sensitive Trimethoprim + Sulfamethoxazole <=10 ug/mL Sensitive Vancomycin <=0.5 ug/mL Sensitive [1] Rifampin should not be used alone for chemotherapy. Culture, Anaerobic [[id number]] Collected: 09/07/18919 Order Status: Resulted Lab Status: In process Updated: 09/07/18933 Specimen: Tissue from Foot, Plantar, Left Culture, Blood [[id number]] (Normal) Collected: 09/07/18518 Order Status: Completed Lab Status: Preliminary result Updated: 09/10/18540 Specimen: Blood from Peripheral Blood Culture No growth: Monitored continually by instrument for 5 days Culture, Blood [[id number]] (Normal) Collected: 09/07/18514 Order Status: Completed Lab Status: Preliminary result Updated: 09/10/18540 Specimen: Blood from Peripheral Blood Culture No growth: Monitored continually by instrument for 5 days Culture, Blood [[id number]] (Normal) Collected: 09/05/18 1806 Order Status: Completed Lab Status: Preliminary result Updated: 09/08/18 181 Specimen: Blood from Peripheral Blood Culture No growth: Monitored continually by instrument for 5 days Culture, Blood [[id number]] (Abnormal) (Susceptibility) Collected: 09/05/18 1725 Order Status: Completed Lab Status: Final result Updated: 09/10/18 0710 Specimen: Blood from Peripheral Blood Culture Positive Blood Culture (AA) Staphylococcus aureus,Methicillin resistant (MRSA) Comment: *INFECTION PREVENTION ALERT - MRSA* CONTACT PRECAUTIONS REQUIRED. Gram Stain Result Gram positive cocci in clusters Comment: 1 of 4 bottles positive. Critical Result called to and read back by Jes Dan on 09/07/2018 at 0:58 by Roderick Doyle. This is an appended report. These results have been appended to a previously preliminary ve rified report. Susceptibility Staphylococcus aureus,Methicillin resistant (MRSA) Not Specified Ciprofloxacin >=8 ug/mL Resistant Clindamycin 0.25 ug/mL Sensitive Levofloxacin 4 ug/mL Resistant Linezolid 2 ug/mL Sensitive Oxacillin >=4 ug/mL Resistant Penicillin G >=0.5 ug/mL Resistant Rifampin <=0.5 ug/mL Sensitive [1] Tetracycline <=1 ug/mL Sensitive Trimethoprim + Sulfamethoxazole <=10 ug/mL Sensitive Vancomycin <=0.5 ug/mL Sensitive [1] Rifampin should not be used alone for chemotherapy. Blood Culture GP Pathogen Panel, PCR [[id number]] (Abnormal) Collected: 09/05/181724 Order Status: Completed Lab Status: Final result Updated: 09/08/18 0655 Specimen: Blood from Peripheral Blood Staphylococcus species, DNA Detected (AA) Staphylococcus aureus, DNA Detected (AA) mecA (methicillin-resistance gene), DNA Detected (AA) Staphylococcus epidermidis, DNA Not Detected Staphylococcus lugdunensis, DNA Not Detected Enterococcus faecalis, DNA Not Detected Enterococcus faecium, DNA Not Detected Evelyne (vancomycin-resistance gene), DNA Not Detected Streptococcus species, DNA Not Detected Streptococcus agalactiae (Group B), DNA Not Detected Streptococcus anginosus, DNA Not Detected Streptococcus pneumonia/mitis, DNA Not Detected Streptococcus pyogenes (Group A), DNA Not Detected Listeria species, DNA Not Detected vanB (vancomycin-resistance gene), DNA Not Detected Narrative: Molecular results to be confirmed by conventional methods 09/05-CXR foot-Subluxation at the second MTP joint along with significant soft tissue swell ing of the second digit with associated gas that is concerning for cellulitis. No definite e rosion is observed to suggest osteomyelitis at this time. If clinically indicated, MRI can be considered. 09/06 MRI foot left: Findings of osteomyelitis of the second and third metatarsals and prox imal phalanges, greater in the second digit. Multiple small deep abscess is in the region of the second and third digits. Extensive myositis and cellulitis. Deep ulcer along the planta r aspect of the forefoot at the level of the second metatarsal head. 09/08 CXR: Findings consistent with fluid overload or CHF. Date 09/05 09/06 09/07 09/08 09/09 09/10 Dialysis (yes/no) no yes no no yes no Vancomycin level N/A - 08.11 - Vancomycin Dose 1500 mg - 500 mg - 1000 mg - Assessment: Target Trough:15-20 mcg/ml for DM foot. Other antibiotics: Zosyn WBC: wnl; Renal: on HD; Temp: afebrile; Culture: 09/05 blood: 10/11 MRSA, 09/05 blood: ngt d, 09/07 blood: ngtd, 09/07 wound foot left - MRSA; 09/07 wound toe left- MRSA; VS: stable Prior to admission dialysis schedule: M/W/F Patient's weight is 148% of ideal body weight--will use adjusted body weight of 95.1 kg for dosing. Vancomycin Dosing in HD patients: Loading dose of 15-20 mg/kg with subsequent dosing based on post-HD levels. If post-hemodialysis vancomycin concentration is: - >20 mcg/mL: hold post-HD dose - 10-20 mcg/mL: 500 mg after HD - <10 mcg/mL: 750-1000 mg after HD Plan: 1. No vanco dose 09/10, follow for next HD session, likely tomorrow, 09/11 and 2. Vancomycin post-HD (M,W,F) level (~5-6 hours after HD ended) tbd 3. Pharmacy to monitor daily and adjust dosage per protocol Per P&T-approved Vancomycin Dosing and Monitoring Protocol Electronically signed by: Lizzy Magaña, Ricky 09/10/2018 13:21 Vancomycin dosing protocol Jennifer Guallpa DO - 09/09/2018 9:19 PM PSTNEPHROLOGY Pt seen earlier on [facility]xStage. In A.flutter at 80-90. BP Stable. Will plan CTA of lower ext to evaluate art. flow. Will plan on same AB's for now. PE is unchanged. Appreciate Dr. Comer's input on his A. Flutter management. Located Within [facility] Bel Ramirez PharmD - 09/09/2018 9:26 AM PSTFormatting of this note might be different from the origi nal. ADDENDUM: Vancomycin level post-HD: 9.1 Vancomycin 1G x 1 tonight Re-order Vancomycin level ~5-6 hours after next HD Recent Labs 09/09/18 2007 09/09/18 0431 09/09/18 0430 09/08/18 1112 09/08/18 0450 09/07/18 0515 09/07/18 0016 WBC -- 6.8 -- 7.6 7.2 6.9 -- CREA -- -- 9.51* -- 7.56* 5.89* -- VANCORANDOM 9.1 -- -- -- -- -- 11.4 Bel [place] PharmD 09/09/2018 21:41 VANCOMYCIN PER PHARMACY PROTOCOL: Subjective/Objective: Isidra Hernandez Case is a 58 y.o. male admitted on 09/05/18 for cellulitis of left foot. Patien t currently requires dialysis and is receiving vancomycin for DM foot and SSTI of left foot . Patient has a past medical history of Arthritis (09/15/2012); BPH with urinary obstruction; Diabetes mellitus, type 2 ([facility]) (1999); Diabetic foot ulcer ([facility]) (01/01/12); ESRD (end stag e renal disease) on dialysis ([facility]) (1999); Heart murmur; Hepatitis C (2006); Hyperlipidemia; Hypertension (2001); Obesity; Recurrent UTI; and Vitamin D deficiency. Allergies Amlodipine besylate and Metformin Historical Vancomycin dosing (previous & current encounter): none Min/Max Temp past 24 hours: BP 140/71 | Pulse 88 | Temp 36.3 C (97.3 F) (Oral) | Resp 18 | Ht 1.854 m (6' 1") | Wt 120 kg (264 lb 8.8 oz) | SpO2 96% | BMI 34.90 kg/m Vitals with Comments 09/08/2018 09/08/2018 09/09/2018 09/09/2018 SYSTOLIC 167 128 114 140 DIASTOLIC 66 78 58 71 Pulse 103 88 88 88 Temp 97.5 97.5 96.8 97.3 Resp 20 18 20 18 Weight - - - - Height - - - - SPO2 97 97 96 96 BMI - - - - Pain Score - - - - Pain Score - - - - Pain Loc - - - - Pain Edu? - - - - Recent Labs Lab 09/09/18 0431 09/09/18 0430 09/08/18 1112 09/08/18 0450 09/07/18 0515 09/07/18 0016 09/06/18 0555 09/05/18 1725 CREA -- 9.51* -- 7.56* 5.89* -- 7.48* 6.72* WBC 6.8 -- 7.6 7.2 6.9 -- 8.1 10.8 CRP -- -- -- -- -- -- 226.92* -- LACTATE -- -- -- -- -- -- -- 1.3 VANCORANDOM -- -- -- -- -- 11.4 -- -- Relevant cultures from previous admits: Date Source Organisms Sensitivities 06/26/13 Wound-PD cath exit site 1. Pseudomonas 2. Klebsiella 1. S: ceftaz, cipro, gent, meropen, tobra 2. S: to all except R to ampicillin Microbiology Results (Last 14 Days by Collected Date with Culture/Sensitivity) Procedure Component Value Units Date/Time Culture, Wound, Smear, w/Anaerobe [[id number]] Collected: 09/07/181123 Order Status: Sent Lab Status: In process Updated: 09/07/181124 Specimen: Tissue from Toe, Second, Left Narrative: The following orders were created for panel order Culture, Wound, Smear, w/Anaerobe. Procedure Abnormality Status --------- ------ Culture, Wound, Smear[[id number]] Preliminary result Culture, Anaerobic[[id number]] In process Please view results for these tests on the individual orders. Culture, Wound, Smear [[id number]] (Susceptibility) Collected: 09/07/181123 Order Status: Completed Lab Status: Preliminary result Updated: 09/09/18656 Specimen: Tissue from Toe, Second, Left Culture 3+ Staphylococcus aureus,Methicillin resistant (MRSA) Comment: *INFECTION PREVENTION ALERT - MRSA* CONTACT PRECAUTIONS REQUIRED. Gram Stain Result 1+ White Blood Cells No organisms seen Susceptibility Staphylococcus aureus,Methicillin resistant (MRSA) Not Specified Ciprofloxacin >=8 ug/mL Resistant Clindamycin 0.25 ug/mL Sensitive Levofloxacin 4 ug/mL Resistant Linezolid 2 ug/mL Sensitive Oxacillin >=4 ug/mL Resistant Penicillin G >=0.5 ug/mL Resistant Rifampin <=0.5 ug/mL Sensitive [1] Tetracycline <=1 ug/mL Sensitive Trimethoprim + Sulfamethoxazole <=10 ug/mL Sensitive Vancomycin <=0.5 ug/mL Sensitive [1] Rifampin should not be used alone for chemotherapy. Culture, Anaerobic [[id number]] Collected: 09/07/181123 Order Status: Resulted Lab Status: In process Updated: 09/07/181124 Specimen: Tissue from Toe, Second, Left Culture, Wound, Smear, w/Anaerobe [[id number]] Collected: 09/07/18919 Order Status: Sent Lab Status: In process Updated: 09/07/18933 Specimen: Tissue from Foot, Plantar, Left Narrative: The following orders were created for panel order Culture, Wound, Smear, w/Anaerobe. Procedure Abnormality Status --------- ------ Culture, Wound, Smear[[id number]] Preliminary result Culture, Anaerobic[[id number]] In process Please view results for these tests on the individual orders. Culture, Wound, Smear [[id number]] (Susceptibility) Collected: 09/07/18919 Order Status: Completed Lab Status: Preliminary result Updated: 09/09/18 07 Specimen: Tissue from Foot, Plantar, Left Culture 1+ Staphylococcus aureus,Methicillin resistant (MRSA) Comment: *INFECTION PREVENTION ALERT - MRSA* CONTACT PRECAUTIONS REQUIRED. Gram Stain Result 3+ White Blood Cells No organisms seen Susceptibility Staphylococcus aureus,Methicillin resistant (MRSA) Not Specified Ciprofloxacin >=8 ug/mL Resistant Clindamycin 0.25 ug/mL Sensitive Levofloxacin 4 ug/mL Resistant Linezolid 2 ug/mL Sensitive Oxacillin >=4 ug/mL Resistant Penicillin G >=0.5 ug/mL Resistant Rifampin <=0.5 ug/mL Sensitive [1] Tetracycline <=1 ug/mL Sensitive Trimethoprim + Sulfamethoxazole <=10 ug/mL Sensitive Vancomycin <=0.5 ug/mL Sensitive [1] Rifampin should not be used alone for chemotherapy. Culture, Anaerobic [[id number]] Collected: 09/07/18919 Order Status: Resulted Lab Status: In process Updated: 09/07/18933 Specimen: Tissue from Foot, Plantar, Left Culture, Blood [[id number]] (Normal) Collected: 09/07/18518 Order Status: Completed Lab Status: Preliminary result Updated: 09/07/181740 Specimen: Blood from Peripheral Blood Culture No growth: Monitored continually by instrument for 5 days Culture, Blood [[id number]] (Normal) Collected: 09/07/18 0515 Order Status: Completed Lab Status: Preliminary result Updated: 09/07/181740 Specimen: Blood from Peripheral Blood Culture No growth: Monitored continually by instrument for 5 days Culture, Blood [[id number]] (Normal) Collected: 09/05/181805 Order Status: Completed Lab Status: Preliminary result Updated: 09/08/181810 Specimen: Blood from Peripheral Blood Culture No growth: Monitored continually by instrument for 5 days Culture, Blood [[id number]] (Abnormal) (Susceptibility) Collected: 09/05/18 172 Order Status: Completed Lab Status: Preliminary result Updated: 09/09/18 0652 Specimen: Blood from Peripheral Blood Culture Positive Blood Culture (AA) Staphylococcus aureus,Methicillin resistant (MRSA) Comment: *INFECTION PREVENTION ALERT - MRSA* CONTACT PRECAUTIONS REQUIRED. Gram Stain Result Gram positive cocci in clusters Comment: 1 of 4 bottles positive. Critical Result called to and read back by Jes Dan on 09/07/2018 at 0:58 by Roderick Doyle. This is an appended report. These results have been appended to a previously preliminary ve rified report. Susceptibility Staphylococcus aureus,Methicillin resistant (MRSA) Not Specified Ciprofloxacin >=8 ug/mL Resistant Clindamycin 0.25 ug/mL Sensitive Levofloxacin 4 ug/mL Resistant Linezolid 2 ug/mL Sensitive Oxacillin >=4 ug/mL Resistant Penicillin G >=0.5 ug/mL Resistant Rifampin <=0.5 ug/mL Sensitive [1] Tetracycline <=1 ug/mL Sensitive Trimethoprim + Sulfamethoxazole <=10 ug/mL Sensitive Vancomycin <=0.5 ug/mL Sensitive [1] Rifampin should not be used alone for chemotherapy. Blood Culture GP Pathogen Panel, PCR [[id number]] (Abnormal) Collected: 09/05/18 1725 Order Status: Completed Lab Status: Final result Updated: 09/08/18 0655 Specimen: Blood from Peripheral Blood Staphylococcus species, DNA Detected (AA) Staphylococcus aureus, DNA Detected (AA) mecA (methicillin-resistance gene), DNA Detected (AA) Staphylococcus epidermidis, DNA Not Detected Staphylococcus lugdunensis, DNA Not Detected Enterococcus faecalis, DNA Not Detected Enterococcus faecium, DNA Not Detected Evelyne (vancomycin-resistance gene), DNA Not Detected Streptococcus species, DNA Not Detected Streptococcus agalactiae (Group B), DNA Not Detected Streptococcus anginosus, DNA Not Detected Streptococcus pneumonia/mitis, DNA Not Detected Streptococcus pyogenes (Group A), DNA Not Detected Listeria species, DNA Not Detected vanB (vancomycin-resistance gene), DNA Not Detected Narrative: Molecular results to be confirmed by conventional methods 09/05-CXR foot-Subluxation at the second MTP joint along with significant soft tissue swell ing of the second digit with associated gas that is concerning for cellulitis. No definite e rosion is observed to suggest osteomyelitis at this time. If clinically indicated, MRI can be considered. Date 09/05 09/06 09/07 09/08 09/09 Dialysis (yes/no) no yes no no yes Vancomycin level N/A - 11. - 1999 Vancomycin Dose 1500 mg - 500 mg - Assessment: Target Trough:15-20 mcg/ml for DM foot. Other antibiotics: Zosyn WBC: wnl; Renal: on HD; Temp: afebrile; Culture: wound - MRSA; blood: positive (VERIGENE : Staph aureus), mec-A gene detected!!; VS: stable Prior to admission dialysis schedule: M/W/F Patient's weight is 148% of ideal body weight--will use adjusted body weight of 95.1 kg for dosing. Vancomycin Dosing in HD patients: Loading dose of 15-20 mg/kg with subsequent dosing based on post-HD levels. If post-hemodialysis vancomycin concentration is: - >20 mcg/mL: hold post-HD dose - 10-20 mcg/mL: 500 mg after HD - <10 mcg/mL: 750-1000 mg after HD Plan: 1. Vanco 500mg IV x 1 on 09/07 @ 0324 2. Vancomycin post-HD (M,W,F) level (~5-6 hours after HD ended) ordered for 09/09 @ 1999 3. Pharmacy to monitor daily and adjust dosage per protocol Per P&T-approved Vancomycin Dosing and Monitoring Protocol Electronically signed by: Alberto Miramontes, PharmD 09/09/2018 9:26 Vancomycin dosing protocol lint Sánchez, DO - 09/08/2018 3:34 PM PSTFormatting of this note might be different from the origi nal. [facility] [address] [place] [address] PROGRESS NOTE Pt. Name/Age/: Isidra Rincon 58 y.o. 1960 Med. Record Number: [id number] Date of admission: 09/05/2018 NEPHROLOGY HPI - No bleeding overnight, SOB, or complaints. Pain control is very good. His HR was s lightly rapid and irregular on rounds. EKG => shows AF, A. Flutter with VR 100-110. Pt placed on tele. He was off of metoprolol yest. Having his PICC line placed, as he is asx. Not 1/4 blood Cxs with GPC clusters, therefore, repeat Blood Cxs obtained last PM. Wound Cx s growing 1+ to 3+ Staph. aureus, with sens.'s pending. Lab Results Component Value Date POCGLU 150 (H) 09/08/2018 POCGLU 133 (H) 09/08/2018 POCGLU 158 (H) 09/07/2018 POCGLU 98 09/07/2018 EXAM: BP 124/86 | Pulse 114 | Temp 37 C (98.6 F) (Oral) | Resp 20 | Ht 1.854 m ( 6' 1") | Wt 120 kg (264 lb 8.8 oz) | SpO2 98% | BMI 34.90 kg/m Tmax 37.9 (no Wt. today) Intake/Output Summary (Last 24 hours) at 09/08/18 1534 Last data filed at 09/08/18 1500 Gross per 24 hour Intake 1208 ml Output 2 ml Net 1206 ml Heart: irregularly, irregular with no S3, murmur or rub. Lungs: CTA bilaterally. Abdomen: Soft, obese, nontender, normoactive bowel sounds. Extremities: 1+ edema, less warm, and less erythema, Left foot is diffusely indurated on a nterior 2/3, tightly wrapped with Coban. Left upper arm AVF has (+) thrill. PCXR: positive CM, some bilateral, pulmonary venous congestion? no effusion? Right PICC in good position. LAB: Recent Labs 09/08/18 0450 09/06/18 0555 NA 134* < > 133* K 4.3 < > 3.6 CL 98 < > 91* CO2 24 < > 28 BUN 42* < > 40* CREA 7.56* < > 7.48* GFRNONAA 7* < > 8* GLU 140* < > 182* CALCIUM 7.8* < > 8.1* PHOS 4.3 < > -- MG -- -- 2.1 < > = values in this interval not displayed. Recent Labs 09/08/18 1112 09/08/18 0450 WBC 7.6 7.2 HGB 8.1* 7.9* HCT 25.6* 25.5* PLT 263 268 MCV 95.5 95.1 NEUPCT -- 63.2 LYMPCT -- 18.3* MONPCT -- 8.7 EOSPCT -- 8.2* IMPRESSION 1. POD #1-- s/p I&D of deep seated abscess of Left foot, with Osteo. on MRI. Day #3, Zo syn/Vanc. Suspect that this is likely polymicrobial however/ 2. new onset A. Flutter-- will attempt to control with rate control. Will discuss anticoag ulation with Cardiology, and or cardioversion? Will also check TSH, and Echo. 3. ESRD 2 to T2DM-- on HD , M-W-F. Next tx is on 09/09. 4. Anemia 2 to CKD-- has some relative Fe deficiency. Will give him IV ferric gluconate , 250 mg, Q day x 3 days, while on EPO. 5. HTN-- BP is low normal, off of antihypertensives. 6. Type 2 DM, requiring insulin-- Herman states that he only take son average "25 units of L antus daily." 7. CKD/MBD-- stable on Hectorol in past. 8. possible PAD-- may benefit from CT angio. at some point, to ascertain arterial flow to extremities? PLAN 1. Will restart some metoprolol tartrate 25 mg, BID for rate control. 2. Anticoagulation is C/I at this time with recent large debridement of foot. He may bene fit from daily ASA 160 mg, Q day. 3. Next HD is tomorrow, with minimal heparin. 4. Pt placed on tele. Located Within [facility] oby Schuster D PM - 09/08/2018 9:23 AM PST Foot & Ankle Surgery Progress Note Toby Schuster DPM Isidra Hernandez Case Age/Gender 58 y.o. male Location [facility]ICAL Attending No att. providers found Hosp Day # 3 PCP Francesco Quinones PA-C Date of Surgery: 09/07/18 Post Operative Day: 1 Procedure: I&D with partial 2nd and 3rd ray amputations L foot infection Subjective: Pt feeling well overall. He denies, f/c/n/v/jefferson/cp/sob. Denies any pain in hi s L foot Objective: VASC: DP is 2/4; PT is 2/4; CFT is 2-3 seconds b/l. NEURO: Gross protective sensation is absent b/l LE. MSK: 2nd and 3rd toes amputated L forefoot. DERM: Incisions are well coapted. Heavy amounts of dried bloody drainage in the bandage. No active bleeding when bandage removed. Recent Labs 09/08/18 0450 09/07/18 0515 09/06/18 0555 09/05/18 1725 WBC 7.2 6.9 8.1 10.8 HCT 25.5* 29.1* 28.9* 31.1* HGB 7.9* 9.4* 9.4* 10.0* PLT 268 277 253 278 ESR -- -- 84* -- CRP -- -- 226.92* -- GLU 140* 90 182* 156* INR -- -- 1.5* -- Microbiology Results (24 hrs) Procedure Component Value Units Date/Time Culture, Wound, Smear, w/Anaerobe [[id number]] Collected: 09/07/181123 Order Status: Sent Lab Status: In process Updated: 09/07/181124 Specimen: Tissue from Toe, Second, Left Narrative: The following orders were created for panel order Culture, Wound, Smear, w/Anaerobe. Procedure Abnormality Status --------- ------ Culture, Wound, Smear[[id number]] Preliminary result Culture, Anaerobic[[id number]] In process Please view results for these tests on the individual orders. Culture, Wound, Smear [[id number]] Collected: 09/07/181123 Order Status: Completed Lab Status: Preliminary result Updated: 09/08/18824 Specimen: Tissue from Toe, Second, Left Culture 3+ Staphylococcus aureus Comment: Presumptive identification Identification and susceptibility to follow. Gram Stain Result 1+ White Blood Cells No organisms seen Culture, Anaerobic [[id number]] Collected: 09/07/181123 Order Status: Resulted Lab Status: In process Updated: 12/01/18 1125 Specimen: Tissue from Toe, Second, Left Assessment: Isidra Hernandez Case is a 58 y.o. male S/p I&D with partial 2nd and 3rd ray amputations. Anemia. Chronic anemia plus acute blood loss during surgery. Cultures pending, presumptive Staph Aureus. Plan: Sterile dressing change performed. Will pull the packing tomorrow. Will require 6 weeks minimum of IV antibiotics. Consider transfusion of PRBCs? Dispo: Home with IV antibiotics or SNF Toby Schuster DPM 9:23; 09/08/2018 Patrick Gonzalez PharmD - 09/08/2018 8:28 AM PST VANCOMYCIN PER PHARMACY PROTOCOL: Subjective/Objective: Isidra Hernandez Case is a 58 y.o. male admitted on 09/05/18 for cellulitis of left foot. Wilner johansen currently requires dialysis and is receiving vancomycin for DM foot and SSTI of left foot . Patient has a past medical history of Arthritis (09/15/2012); BPH with urinary obstruction; Diabetes mellitus, type 2 ([facility] (1999); Diabetic foot ulcer ([facility]) (01/01/12); ESRD (end stag e renal disease) on dialysis ([facility]) (1999); Heart murmur; Hepatitis C (2006); Hyperlipidemia; Hypertension (2001); Obesity; Recurrent UTI; and Vitamin D deficiency. Allergies Amlodipine besylate and Metformin Historical Vancomycin dosing (previous & current encounter): none Min/Max Temp past 24 hours: BP 119/68 | Pulse 117 | Temp 35.6 C (96 F) (Axillary) | Resp 20 | Ht 1.854 m (6' 1" ) | Wt 120 kg (264 lb 8.8 oz) | SpO2 96% | BMI 34.90 kg/m Vitals with Comments 09/07/2018 09/07/2018 09/08/2018 09/08/2018 SYSTOLIC 122 116 124 119 DIASTOLIC 81 59 66 68 Pulse 121 104 117 117 Temp 98.6 - 100.3 96 Resp 20 - 18 20 Weight - - - - Height - - - - SPO2 96 - 96 96 BMI - - - - Pain Score - - - - Pain Score - - - - Pain Loc - - - - Pain Edu? - - - - Recent Labs Lab 09/08/18 0450 09/07/18 0515 09/07/18 0016 09/06/18 0555 09/05/18 1725 CREA 7.56* 5.89* -- 7.48* 6.72* WBC 7.2 6.9 -- 8.1 10.8 CRP -- -- -- 226.92* -- LACTATE -- -- -- -- 1.3 VANCORANDOM -- -- 11.4 -- -- Relevant cultures from previous admits: Date Source Organisms Sensitivities 06/26/13 Wound-PD cath exit site 1. Pseudomonas 2. Klebsiella 1. S: ceftaz, cipro, gent, meropen, tobra 2. S: to all except R to ampicillin Microbiology Results (Last 14 Days by Collected Date with Culture/Sensitivity) Procedure Component Value Units Date/Time Culture, Wound, Smear, w/Anaerobe [[id number]] Collected: 09/07/181123 Order Status: Sent Lab Status: In process Updated: 09/07/181124 Specimen: Tissue from Toe, Second, Left Narrative: The following orders were created for panel order Culture, Wound, Smear, w/Anaerobe. Procedure Abnormality Status --------- ------ Culture, Wound, Smear[[id number]] Preliminary result Culture, Anaerobic[[id number]] In process Please view results for these tests on the individual orders. Culture, Wound, Smear [[id number]] Collected: 09/07/181123 Order Status: Completed Lab Status: Preliminary result Updated: 09/08/18824 Specimen: Tissue from Toe, Second, Left Culture 3+ Staphylococcus aureus Comment: Presumptive identification Identification and susceptibility to follow. Gram Stain Result 1+ White Blood Cells No organisms seen Culture, Anaerobic [[id number]] Collected: 09/07/181123 Order Status: Resulted Lab Status: In process Updated: 09/07/181124 Specimen: Tissue from Toe, Second, Left Culture, Wound, Smear, w/Anaerobe [[id number]] Collected: 09/07/18 0920 Order Status: Sent Lab Status: In process Updated: 09/07/18 09 Specimen: Tissue from Foot, Plantar, Left Narrative: The following orders were created for panel order Culture, Wound, Smear, w/Anaerobe. Procedure Abnormality Status --------- ------ Culture, Wound, Smear[[id number]] Preliminary result Culture, Anaerobic[[id number]] In process Please view results for these tests on the individual orders. Culture, Wound, Smear [[id number]] Collected: 09/07/18919 Order Status: Completed Lab Status: Preliminary result Updated: 09/07/18 144 Specimen: Tissue from Foot, Plantar, Left Gram Stain Result 3+ White Blood Cells No organisms seen Culture, Anaerobic [[id number]] Collected: 09/07/18919 Order Status: Resulted Lab Status: In process Updated: 09/07/18933 Specimen: Tissue from Foot, Plantar, Left Culture, Blood [[id number]] (Normal) Collected: 09/07/18 0519 Order Status: Completed Lab Status: Preliminary result Updated: 09/07/18 174 Specimen: Blood from Peripheral Blood Culture No growth: Monitored continually by instrument for 5 days Culture, Blood [[id number]] (Normal) Collected: 09/07/18 0515 Order Status: Completed Lab Status: Preliminary result Updated: 09/07/18 174 Specimen: Blood from Peripheral Blood Culture No growth: Monitored continually by instrument for 5 days Culture, Blood [[id number]] (Normal) Collected: 09/05/18 1806 Order Status: Completed Lab Status: Preliminary result Updated: 09/06/18 06 Specimen: Blood from Peripheral Blood Culture No growth: Monitored continually by instrument for 5 days Culture, Blood [[id number]] (Abnormal) Collected: 09/05/181724 Order Status: Completed Lab Status: Preliminary result Updated: 09/07/18 005 Specimen: Blood from Peripheral Blood Culture Positive Blood Culture (AA) Gram Stain Result Gram positive cocci in clusters Comment: 1 of 4 bottles positive. Critical Result called to and read back by Jes Dan on 09/07/2018 at 0:58 by Roderick Doyle. This is an appended report. These results have been appended to a previously preliminary ve rified report. Blood Culture GP Pathogen Panel, PCR [[id number]] (Abnormal) Collected: 09/05/181724 Order Status: Completed Lab Status: Final result Updated: 09/08/18 0655 Specimen: Blood from Peripheral Blood Staphylococcus species, DNA Detected (AA) Staphylococcus aureus, DNA Detected (AA) mecA (methicillin-resistance gene), DNA Detected (AA) Staphylococcus epidermidis, DNA Not Detected Staphylococcus lugdunensis, DNA Not Detected Enterococcus faecalis, DNA Not Detected Enterococcus faecium, DNA Not Detected Evelyne (vancomycin-resistance gene), DNA Not Detected Streptococcus species, DNA Not Detected Streptococcus agalactiae (Group B), DNA Not Detected Streptococcus anginosus, DNA Not Detected Streptococcus pneumonia/mitis, DNA Not Detected Streptococcus pyogenes (Group A), DNA Not Detected Listeria species, DNA Not Detected vanB (vancomycin-resistance gene), DNA Not Detected Narrative: Molecular results to be confirmed by conventional methods 09/05-CXR foot-Subluxation at the second MTP joint along with significant soft tissue swell ing of the second digit with associated gas that is concerning for cellulitis. No definite e rosion is observed to suggest osteomyelitis at this time. If clinically indicated, MRI can be considered. Date 09/05 09/06 09/07 09/08 09/09 Dialysis (yes/no) no yes no no yes Vancomycin level N/A - DUE @ 0000 - Vancomycin Dose 1500 mg - 500 mg - Assessment: Target Trough:15-20 mcg/ml for DM foot. Other antibiotics: Zosyn WBC: wnl; Renal: on HD; Temp: afebrile; Culture: blood: positive (VERIGENE: Staph aureus ), mec-A gene detected!!; VS: stable Prior to admission dialysis schedule: M/W/F Patient's weight is 148% of ideal body weight--will use adjusted body weight of 95.1 kg for dosing. Vancomycin Dosing in HD patients: Loading dose of 15-20 mg/kg with subsequent dosing based on post-HD levels. If post-hemodialysis vancomycin concentration is: - >20 mcg/mL: hold post-HD dose - 10-20 mcg/mL: 500 mg after HD - <10 mcg/mL: 750-1000 mg after HD Plan: 1. Vanco 500mg IV x 1 on 09/07 @ 0324 2. Vancomycin post-HD (M,W,F) level (~5-6 hours after HD ended) 3. Pharmacy to monitor daily and adjust dosage per protocol Per P&T-approved Vancomycin Dosing and Monitoring Protocol Electronically signed by: Patrick Jack PharmD 09/08/2018 8:28 Vancomycin dosing protocol Uche Guallpa , DO - 09/07/2018 10:22 AM PST [facility] [address] [place] [address] PROGRESS NOTE Pt. Name/Age/: Isidra Hernandez Case 58 y.o. 1960 Med. Record Number: [id number] Date of admission: 09/05/2018 NEPHROLOGY HPI - MRI details noted with extensive bone involvement, and some pockets of purulent flui d. No chills or rigors on IV AB's. Blood Cxs are NGTD. Ulcer examined, scant rodriguez DC, tunnels only ~ 1cm. Gram Stain and Cx se nt. Lab Results Component Value Date POCGLU 91 09/07/2018 POCGLU 91 09/06/2018 POCGLU 120 (H) 09/06/2018 POCGLU 82 09/06/2018 EXAM: BP 130/70 | Pulse 91 | Temp 36.1 C (96.9 F) (Oral) | Resp 20 | Ht 1.854 m (6' 1") | Wt 120 kg (264 lb 8.8 oz) | SpO2 94% | BMI 34.90 kg/m Tmax 36.3 Wt. increased 1.1 kg, (initial wt may have been stated wt?) Intake/Output Summary (Last 24 hours) at 09/07/18 1022 Last data filed at 09/07/18 0942 Gross per 24 hour Intake 2756 ml Output 3422 ml Net -666 ml Heart: Regular rate and rhythm with no S3, S4, murmur or rub. Lungs: CTA bilaterally. Abdomen: Soft, obese, nontender, normoactive bowel sounds. Extremities:1-2+ edema, less warm, and less erythema, Left foot is diffusely indurated on a nterior 2/3, no clubbing, or cyanosis, Left upper arm AVF has (+) thrill. LAB: Recent Labs 09/07/18 0515 09/06/18 0555 NA 134* 133* K 3.9 3.6 CL 97* 91* CO2 26 28 BUN 33* 40* CREA 5.89* 7.48* GFRNONAA 10* 8* GLU 90 182* CALCIUM 8.1* 8.1* PHOS 3.7 -- MG -- 2.1 Recent Labs 09/07/18 0515 WBC 6.9 HGB 9.4* HCT 29.1* PLT 277 MCV 94.2 NEUPCT 64.7 LYMPCT 16.0* MONPCT 9.2 EOSPCT 9.1* Lab Results Component Value Date CRP 226.92 (H) 09/06/2018 Lab Results Component Value Date ESR 84 (H) 09/06/2018 No results found for: VANCO Lab Results Component Value Date VANCORANDOM 11.4 09/07/2018 (drawn 12MN?)* IMPRESSION 1. Deep seated foot abscess, Left foot with purulent pockets, osteomyelitis on MRI-- Day #2, Zosyn/Vanc. He is NPO for open debridement. Not optimistic that this can be controlled medically, however, with his good performance st at, and relatively young age, it is absolutely the better choice. Would redose Vanc. IV , today? 2. ESRD 2 to T2DM-- on HD , -W-. Next tx is on 09/09. 3. Anemia 2 to CKD-- would favor increasing his EPO to 8000, TIW to target Hb 10-11 g/d l to promote wound healing. Will recheck his Fe levels, while Inpt. ( These are followed monthly at [facility], in a [facility].) 4. HTN--stable. 5. Type 2 DM, requiring insulin-- good control. Apparently, pt did not take high dose Akhil tus at home, per Dr. Temo Kuo. 6. CKD/MBD-- stable on Hectorol in past. 7. possible PAD-- may benefit from CT angio. at some point, to ascertain arterial flow to extremities? PLAN 1. Repeat local wound Cx done, and also Cxs likely to be obtained intraoperative. 2. NPO for wide debridement. I greatly Appreciate Dr. Schuster's help. 3. Would favor redosing Vanc. IV, today. 4. Adjust EPO to optimize Hb and anemia, as above. Located [facility] LisaPatrikc, Ph armD - 09/07/2018 7:21 AM PST VANCOMYCIN PER PHARMACY PROTOCOL: Subjective/Objective: Isidra Rincon is a 58 y.o. male admitted on 09/05/18 for cellulitis of left foot. Wilner johansen currently requires dialysis and is receiving vancomycin for DM foot and SSTI of left foot . Patient has a past medical history of Arthritis (09/15/2012); BPH with urinary obstruction; Diabetes mellitus, type 2 ([facility]) (1999); Diabetic foot ulcer ([facility]) (01/01/12); ESRD (end stag e renal disease) on dialysis ([facility]) (1999); Heart murmur; Hepatitis C (2006); Hyperlipidemia; Hypertension (2001); Obesity; Recurrent UTI; and Vitamin D deficiency. Allergies Amlodipine besylate and Metformin Historical Vancomycin dosing (previous & current encounter): none Min/Max Temp past 24 hours: BP 109/58 | Pulse 95 | Temp 36.3 C (97.3 F) (Oral) | Resp 20 | Ht 1.854 m (6' 1") | Wt 120 kg (264 lb 8.8 oz) | SpO2 96% | BMI 34.90 kg/m Vitals with Comments 09/06/2018 09/06/2018 09/07/2018 09/07/2018 SYSTOLIC 123 133 109 - DIASTOLIC 76 73 58 - Pulse 110 97 95 - Temp - 97.3 97.3 - Resp 20 20 20 - Weight - - - 264 lbs 9 oz Height - - - - SPO2 96 96 96 - BMI - - - - Pain Score - - - - Pain Score - - - - Pain Loc - - - - Pain Edu? - - - - Recent Labs Lab 09/07/18 0515 09/07/18 0016 09/06/18 0555 09/05/18 1725 CREA 5.89* -- 7.48* 6.72* WBC 6.9 -- 8.1 10.8 CRP -- -- 226.92* -- LACTATE -- -- -- 1.3 VANCORANDOM -- 11.4 -- -- Relevant cultures from previous admits: Date Source Organisms Sensitivities 06/26/13 Wound-PD cath exit site 1. Pseudomonas 2. Klebsiella 1. S: ceftaz, cipro, gent, meropen, tobra 2. S: to all except R to ampicillin Microbiology Results (Last 14 Days by Collected Date with Culture/Sensitivity) Procedure Component Value Units Date/Time Culture, Blood [[id number]] Collected: 09/07/18518 Order Status: Sent Lab Status: In process Updated: 09/07/18537 Specimen: Blood from Peripheral Blood Culture, Blood [[id number]] Collected: 09/07/18514 Order Status: Sent Lab Status: In process Updated: 09/07/18538 Specimen: Blood from Peripheral Blood Culture, Blood [[id number]] (Normal) Collected: 09/05/18 1806 Order Status: Completed Lab Status: Preliminary result Updated: 09/06/18 06 Specimen: Blood from Peripheral Blood Culture No growth: Monitored continually by instrument for 5 days Culture, Blood [[id number]] (Abnormal) Collected: 09/05/18 1725 Order Status: Completed Lab Status: Preliminary result Updated: 09/07/18 0059 Specimen: Blood from Peripheral Blood Culture Positive Blood Culture (AA) Gram Stain Result Gram positive cocci in clusters Comment: 1 of 4 bottles positive. Critical Result called to and read back by Jes Dan on 09/07/2018 at 0:58 by Roderick Doyle. This is an appended report. These results have been appended to a previously preliminary ve rified report. 09/05-CXR foot-Subluxation at the second MTP joint along with significant soft tissue swell ing of the second digit with associated gas that is concerning for cellulitis. No definite e rosion is observed to suggest osteomyelitis at this time. If clinically indicated, MRI can be considered. Date 09/05 09/06 09/07 09/08 09/09 Dialysis (yes/no) no yes no yes Vancomycin level N/A - DUE @ 0000 Vancomycin Dose 1500 mg - tbd Assessment: Target Trough:15-20 mcg/ml for DM foot. Other antibiotics: Zosyn WBC: wnl; Renal: on HD; Temp: afebrile; Culture: blood: positive (VERIGENE: Staph aureus ); VS: stable Prior to admission dialysis schedule: M/W/F Patient's weight is 148% of ideal body weight--will use adjusted body weight of 95.1 kg for dosing. Vancomycin Dosing in HD patients: Loading dose of 15-20 mg/kg with subsequent dosing based on post-HD levels. If post-hemodialysis vancomycin concentration is: - >20 mcg/mL: hold post-HD dose - 10-20 mcg/mL: 500 mg after HD - <10 mcg/mL: 750-1000 mg after HD Plan: 1. Vanco 500mg IV x 1 on 09/07 2. Vancomycin post-HD (M,W,F) level (~5-6 hours after HD ended) 3. Pharmacy to monitor daily and adjust dosage per protocol Per P&T-approved Vancomycin Dosing and Monitoring Protocol Electronically signed by: Patrick Jack PharmD 09/07/2018 7:21 Vancomycin dosing protocol Kike Cool MD - 09/06/2018 7:29 PM PST [facility] Hospitalist Progress Note Isidra Rincon is a 58 y.o. male ASSESSMENT and PLAN: Active Hospital Problems Diagnosis *Cellulitis of left lower extremity End stage renal disease Anemia in ESRD (end-stage renal disease) Type II or unspecified type diabetes mellitus with renal manifestations, uncontrolled(2 50.42) Dyslipidemia Hepatitis C Diabetic foot ulcer Resolved Hospital Problems Diagnosis Date Noted Date Resolved No resolved problems to display. Diabetic foot infection/deep infection left foot with pus around second toe/chronic nonheal ing foot ulcer - Ulcer x 5 years - Fevers, purulent drainage, cellulitis x 5 days - On exam, has obvious deep infection with a large amount of pus - Continue vancomycin/Zosyn - Discussed with Dr. Cervantes chief telephone operator for orthopedics, recommended discussing with Dr. Schuster , appreciate Dr. Schuster's consult, will need washout/drainage - Needs drainage, may need partial amputation of foot - MRI pending Type 2 DM with renal manifestations: _ Has not been taking 110 units at night, has only been taking 50 because of hypoglycemic e pisodes - Refused glargine last night, BS near normal - Hold glargine now, give only sliding scale to avoid lows ESRD on HD MWF: - Dr. Sánchez wrote HD orders, had HD session 09/06 - Lytes unremarkable PAD suspected: - Given his ESRD and long-standing DM, suspect has significant PAD - Does have DP pulse of left foot - Defer to podiatry what arterial studies to order, will likely need aortogram with runoff at some point Anemia of CKD/ACD: stable; HGB 9.4 Disposition : Continue current care Prophylaxis : heparin SUBJECTIVE: Diminished pain in foot now that he is not putting weight on it. Still red, with purulen t drainage, cellulitis appears improved. No CP or shortness of breath. VITALS: Temp: 36.1 C (97 F), Pulse: 110, Resp: 20, BP: 123/76, SpO2 96 % on room air Temp Min: 36.1 C (97 F) Max: 37.4 C (99.3 F) Weight: 117.9 kg (260 lb) Intake/Output Summary (Last 24 hours) at 09/06/181928 Last data filed at 09/06/181914 Gross per 24 hour Intake 1533 ml Output 3422 ml Net -1889 ml PHYSICAL EXAM: General: Pleasant, no distress, lying in bed Cardiovascular: RRR Respiratory: CTA bilaterally Abdomen: Soft, obese, NT, bowel sounds present Extremities: Left foot shows ulcer on plantar surface under second metotarsal phalangeal j oint draining pus, apparent pus around 2nd toe, redness and swelling of other toes and whole left foot, able to palpate dp pulse of left foot Tirado catheter present: No DIAGNOSTIC STUDIES: Available data and images were reviewed personally. Significant results and findings are a ddressed here or in the Assessment and Plan. Recent Results (from the past 24 hour(s)) POC Glucose Result Value Ref Range Glucose, POC 111 (H) 70 - 109 mg/dL Basic Metabolic Panel Result Value Ref Range Na 133 (L) 136 - 149 mmol/L K 3.6 3.5 - 5.1 mmol/L Cl 91 (L) 98 - 109 mmol/L CO2 28 24 - 31 mmol/L Anion Gap 14 3 - 16 mmol/L Glucose 182 (H) 70 - 109 mg/dL BUN 40 (H) 7 - 18 mg/dL Creatinine 7.48 (HH) 0.60 - 1.30 mg/dL eGFR if not 8 (L) >=60 mL/min/1.73m2 Ca 8.1 (L) 8.3 - 10.5 mg/dL BUN/Creatinine Ratio 5.3 CBC with Differential Result Value Ref Range WBC 8.1 4.0 - 11.0 K/uL RBC 3.06 (L) 4.30 - 5.70 M/uL Hgb 9.4 (L) 13.5 - 18.0 g/dL Hct 28.9 (L) 40.0 - 51.0 % MCV 94.4 83.0 - 101.0 fL MCH 30.7 28.0 - 35.0 pg MCHC 32.5 32.0 - 36.0 g/dL RDW-CV 13.9 <15.0 % RDW-SD 47.4 (H) 35.1 - 46.3 fL Platelet Count 253 140 - 440 K/uL MPV 9.7 6.5 - 12.4 fL % Neutrophils 64.3 45.0 - 82.0 % % Lymphocytes 16.1 (L) 20.0 - 45.0 % % Monocytes 8.8 4.0 - 12.0 % % Eosinophils 9.2 (H) 0.0 - 5.0 % % Basophils 1.2 (H) 0.0 - 1.0 % % Immature granulocytes 0.4 0.0 - 0.4 % Absolute Neutrophils 5.19 1.80 - 8.50 K/uL Absolute Lymphocytes 1.30 0.60 - 3.20 K/uL Absolute Monocytes 0.71 0.00 - 1.00 K/uL Absolute Eosinophils 0.74 (H) 0.00 - 0.40 K/uL Absolute Basophils 0.10 0.00 - 0.10 K/uL Absolute Imm. Granulocytes 0.03 0.00 - 0.03 K/uL nRBC 0 0 - 2 per 100 WBC's NRBC ABS 0.00 0.00 - 0.01 K/uL Magnesium Result Value Ref Range Magnesium 2.1 1.8 - 2.5 mg/dL Protime INR Result Value Ref Range Protime 17.6 (H) 11.3 - 13.9 seconds INR 1.5 (H) 0.9 - 1.1 Sedimentation Rate Result Value Ref Range ESR 84 (H) <20 mm/hr C-Reactive Protein Result Value Ref Range CRP 226.92 (H) <8.00 mg/L POC Glucose Result Value Ref Range Glucose, POC 185 (H) 70 - 109 mg/dL POC Glucose Result Value Ref Range Glucose, POC 82 70 - 109 mg/dL POC Glucose Result Value Ref Range Glucose, POC 120 (H) 70 - 109 mg/dL Xr Foot Right 3 + Vw Result Date: 09/05/2018 XR FOOT RIGHT 3 + VW 09/05/2018 5:57 PM HISTORY: FOOT PAIN FEVER (9 WEEKS TO 74 YEARS). COM PARISON: None. FINDINGS: Subluxation is visualized at the second MTP joint along with signif icant soft tissue swelling of the second digit with associated gas that is concerning for ce llulitis. No definite erosion is observed to suggest osteomyelitis at this time. There are m oderate degenerative changes of the IP joints. Tiny spurs are present of the calcaneus. Ther e is diffuse osteopenia. Extensive atherosclerosis is observed. IMPRESSION - Subluxation at the second MTP joint along with significant soft tissue swelling of the second digit with as sociated gas that is concerning for cellulitis. No definite erosion is observed to suggest o steomyelitis at this time. If clinically indicated, MRI can be considered. Extensive atheros clerosis possibly related to diabetes Dictated and Signed by: Donovan Gayle MD Electronicall y signed: 09/05/2018 6:45 PM Current Facility-Administered Medications: acetaminophen 650 mg Oral Q4H PRN albumin 12.5 g Intravenous PRN aspirin 81 mg Oral Daily bisacodyl 10 mg Rectal Daily PRN cholecalciferol 5,000 Units Oral Daily cinacalcet 60 mg Oral Daily dextrose 12.5 g Intravenous PRN docusate sodium 100 mg Oral BID PRN epoetin padilla 3,200 Units Subcutaneous Once per day on Sun fentaNYL (PF) 50 mcg Intravenous Q1H PRN furosemide 80 mg Oral Daily glimepiride 1 mg Oral QAM AC heparin 5,000 Units Subcutaneous 2 times per day Heparin Infusion 500 Units/hr Intravenous Continuous HYDROcodone-acetaminophen 1 tablet Oral Q4H PRN insulin glargine 20 Units Subcutaneous Nightly insulin lispro 0-12 Units Subcutaneous 4x Daily WC and HS lisinopril 40 mg Oral Daily mannitol 12.5 g Intravenous PRN metoprolol succinate 100 mg Oral Daily morphine 4 mg Intravenous Q3H PRN ondansetron 4 mg Intravenous Q6H PRN pantoprazole 40 mg Oral QAM AC piperacillin-tazobactam 3.375 g Intravenous 2 times per day polyethylene glycol 17 g Oral Daily PRN renal multivitamin 1 tablet Oral Daily rosuvastatin 20 mg Oral Daily senna 8.6 mg Oral BID SITagliptin 25 mg Oral QAM AC sodium chloride 0.9% 250 mL Intravenous Q30 Min PRN sodium chloride 0.9% Intravenous Continuous traZODone 25 mg Oral Nightly PRN, MR x 1 vancomycin per pharmacy Other Pharmacy Consult Total time of approximately 25 minutes was spent with the patient and/or patient's family, and/or on the patient's floor/unit, of which more than 50% was spent counseling and/or coord ination the patient's care as outlined above. Kike Kuo 09/06/2018 19:29 [facility] PharmD - 09/06/2018 8:02 AM PSTFormatting of this note might be different from the darrena l. ADDENDUM: Vancomycin Level post-HD - 11.4 Vancomycin 500mg IV x 1 Repeat level 4-6h after next HD Preliminary Blood cx drawn 09/05 --> 1 of 4 bottles pos for GPC in clusters VERIGENE result per Lab --> Blood cx : Staph aureus Recent Labs 09/07/18 0016 09/06/18 0555 09/05/18 1725 WBC -- 8.1 10.8 CREA -- 7.48* 6.72* CRP -- 226.92* -- VANCORANDOM 11.4 -- -- [place] PharmD 09/07/2018 3:27 VANCOMYCIN PER PHARMACY PROTOCOL: Subjective/Objective: Isidra Rincon is a 58 y.o. male admitted on 09/05/18 for cellulitis of left foot. Patien t currently requires dialysis and is receiving vancomycin for DM foot and SSTI of left foot . Patient has a past medical history of Arthritis (09/15/2012); BPH with urinary obstruction; Diabetes mellitus, type 2 ([facility]) (1999); Diabetic foot ulcer ([facility]) (01/01/12); ESRD (end stag e renal disease) on dialysis ([facility]) (1999); Heart murmur; Hepatitis C (2006); Hyperlipidemia; Hypertension (2001); Obesity; Recurrent UTI; and Vitamin D deficiency. Allergies Amlodipine besylate and Metformin Historical Vancomycin dosing (previous & current encounter): none Min/Max Temp past 24 hours: BP 106/66 | Pulse 108 | Temp 37.4 C (99.3 F) (Oral) | Resp 20 | Ht 1.854 m (6' 1") | Wt 118.9 kg (262 lb 2 oz) | SpO2 92% | BMI 34.58 kg/m Vitals with Comments 09/05/2018 09/05/2018 09/06/2018 09/06/2018 SYSTOLIC - 135 83 106 DIASTOLIC - 75 44 66 Pulse 98 106 108 - Temp - 99.1 99.3 - Resp 18 19 20 - Weight - 262 lbs 2 oz - - Height - - - - SPO2 97 97 92 - BMI - - - - Pain Score - - - - Pain Score - - - - Pain Loc - - - - Pain Edu? - - - - Recent Labs Lab 09/06/18 0555 09/05/18 172 CREA 7.48* 6.72* WBC 8.1 10.8 LACTATE -- 1.3 Relevant cultures from previous admits: Date Source Organisms Sensitivities 06/26/13 Wound-PD cath exit site 1. Pseudomonas 2. Klebsiella 1. S: ceftaz, cipro, gent, meropen, tobra 2. S: to all except R to ampicillin Microbiology Results (Last 14 Days by Collected Date with Culture/Sensitivity) Procedure Component Value Units Date/Time Culture, Blood [[id number]] (Normal) Collected: 09/05/18 1806 Order Status: Completed Lab Status: Preliminary result Updated: 09/06/18 0611 Specimen: Blood from Peripheral Blood Culture No growth: Monitored continually by instrument for 5 days Culture, Blood [[id number]] (Normal) Collected: 09/05/18 1725 Order Status: Completed Lab Status: Preliminary result Updated: 09/06/18 0541 Specimen: Blood from Peripheral Blood Culture No growth: Monitored continually by instrument for 5 days 09/05-CXR foot-Subluxation at the second MTP joint along with significant soft tissue swell ing of the second digit with associated gas that is concerning for cellulitis. No definite e rosion is observed to suggest osteomyelitis at this time. If clinically indicated, MRI can be considered. Date 09/05 09/06 09/07 Dialysis (yes/no) no yes no Vancomycin level N/A - DUE @ 0000 Vancomycin Dose 1500 mg - tbd Assessment: Target Trough:15-20 mcg/ml for DM foot. Other antibiotics: Zosyn WBC: wnl; Renal: on HD; Temp: afebrile; Culture: blood: ngtd; VS: some tachycardia Prior to admission dialysis schedule: M/W/F Patient's weight is 148% of ideal body weight--will use adjusted body weight of 95.1 kg for dosing. Vancomycin Dosing in HD patients: Loading dose of 15-20 mg/kg with subsequent dosing based on post-HD levels. If post-hemodialysis vancomycin concentration is: - >20 mcg/mL: hold post-HD dose - 10-20 mcg/mL: 500 mg after HD - <10 mcg/mL: 750-1000 mg after HD Plan: 1. Vancomcyin 1500 mg IV x1 on 09/05 (~16.4 mg/kg) 2. Vancomycin post-HD level due 09/07/18 @ 0000 (~5 hours after HD ended) 3. Pharmacy to monitor daily and adjust dosage per protocol Per P&T-approved Vancomycin Dosing and Monitoring Protocol Electronically signed by: Lizzy Magaña PharmD 09/06/2018 17:14 Vancomycin dosing protocol Polly Christianson PharmD - 09/05/2018 6:05 PM PSTFormatting of this note might be different from the origi nal. VANCOMYCIN PER PHARMACY PROTOCOL: Subjective/Objective: Isidra Hernandez Case is a 58 y.o. male admitted on 09/05/18 for cellulitis of left foot. Patien t currently requires dialysis and is receiving vancomycin for DM foot and SSTI of left foot . Patient has a past medical history of Arthritis (09/15/2012); BPH with urinary obstruction; Diabetes mellitus, type 2 (HCC) (1999); Diabetic foot ulcer ([facility]) (01/01/12); ESRD (end stag e renal disease) on dialysis ([facility]) (1999); Heart murmur; Hepatitis C (2006); Hyperlipidemia; Hypertension (2001); Obesity; Recurrent UTI; and Vitamin D deficiency. Allergies Amlodipine besylate and Metformin Historical Vancomycin dosing (previous & current encounter): none Min/Max Temp past 24 hours: BP 104/62 | Pulse 109 | Temp 37.2 C (98.9 F) (Oral) | Resp 16 | Ht 1.854 m (6' 1") | Wt 117.9 kg (260 lb) | SpO2 96% | BMI 34.30 kg/m Vitals with Comments 03/25/2018 05/20/2018 08/05/2018 09/05/2018 SYSTOLIC 138 163 148 104 DIASTOLIC 71 83 77 62 Pulse - - - 109 Temp 97.9 98 97 98.9 Resp - - - 16 Weight - - - 260 lbs Height - - - 6' 1" SPO2 - - - 96 BMI - - - 34.4 kg/m2 Pain Score - - - - Pain Score - - - - Pain Loc - - - - Pain Edu? - - - - Recent Labs Lab 09/05/18 172 CREA 6.72* WBC 10.8 LACTATE 1.3 Other antibiotics: none at this time (patient was started on what he thinks was cephalexin on 09/04) Micro/Cultures/Diagnostics: Microbiology Results (Last 14 Days by Collected Date with Culture/Sensitivity) Procedure Component Value Units Date/Time Culture, Blood [[id number]] Collected: 09/05/181724 Order Status: Sent Lab Status: In process Updated: 09/05/181731 Specimen: Blood from Peripheral Blood Culture, Blood [[id number]] Order Status: Sent Lab Status: No result Specimen: Blood from Peripheral Blood Blood cultures: in process Urine culture: none UA: n/a Other: n/a MRSA screen: none 09/05-CXR foot-pending Date 09/05 Dialysis (yes/no) no Vancomycin level N/a Vancomycin Dose 1500 mg Assessment: Target Trough:15-20 mcg/ml for DM foot. Prior to admission dialysis schedule: M/W/F Patient's weight is 148% of ideal body weight--will use adjusted body weight of 95.1 kg for dosing. Vancomycin Dosing in HD patients: Loading dose of 15-20 mg/kg with subsequent dosing based on post-HD levels. If post-hemodialysis vancomycin concentration is: - >20 mcg/mL: hold post-HD dose - 10-20 mcg/mL: 500 mg after HD - <10 mcg/mL: 750-1000 mg after HD Plan: 1. Vancomcyin 1500 mg IV x1 today (~16.4 mg/kg) 2. Vancomycin post-HD level to be ordered when next HD session is scheduled 3. Pharmacy to monitor daily and adjust dosage per protocol Per P&T-approved Vancomycin Dosing and Monitoring Protocol Electronically signed by: Polly Lee PharmEmmanuel 09/05/2018 17:50 Vancomycin dosing protocol documented in thi s encounter Plan of Treatment + + +--------+ + + | Name | Type | Priori | Associated Diagnoses | Order Schedule | | | | ty | | | + + +--------+ + + | * [facility] | Outpatient | STAT | Diabetic ulcer of | Ordered: 09/11/2018 | | [facility] | Referral | | left midfoot | | | Region) - AMB | | | associated with type | | | Referral | | | 2 diabetes | | | | | | mellitus, limited to | | | | | | breakdown of skin | | | | | | (HCC) Gangrene of | | | | | | left foot (HCC) | | + + +--------+ + + documented as of this encounter Procedures + +--------+ + + + | Procedure Name | Priori | Date/Time | Associated Diagnosis | Comments | | | ty | | | | + +--------+ + + + | POC GLUCOSE | Routin | 09/11/2018 | | Results for this | | | e | 7:05 AM | | procedure are in the | | | | PST | | results section. | + +--------+ + + + | CBC WITH | Routin | 09/11/2018 | | Results for this | | DIFFERENTIAL | e | 5:27 AM | | procedure are in the | | | | PST | | results section. | + +--------+ + + + | RENAL FUNCTION PANEL | Routin | 09/11/2018 | | Results for this | | | e | 5:27 AM | | procedure are in the | | | | PST | | results section. | + +--------+ + + + | PTT | Routin | 09/11/2018 | | Results for this | | | e | 5:26 AM | | procedure are in the | | | | PST | | results section. | + +--------+ + + + | PROTIME INR | Routin | 09/11/2018 | | Results for this | | | e | 5:26 AM | | procedure are in the | | | | PST | | results section. | + +--------+ + + + | POC GLUCOSE | Routin | 09/10/2018 | | Results for this | | | e | 9:07 PM | | procedure are in the | | | | PST | | results section. | + +--------+ + + + | POC GLUCOSE | Routin | 09/10/2018 | | Results for this | | | e | 5:07 PM | | procedure are in the | | | | PST | | results section. | + +--------+ + + + | CT ANGIOGRAM ABDOMEN | Routin | 09/10/2018 | | Results for this | | AORTA BILAT FEMORAL | e | 2:35 PM | | procedure are in the | | RUNOFF W CONTRAST | | PST | | results section. | + +--------+ + + + | POC GLUCOSE | Routin | 09/10/2018 | | Results for this | | | e | 12:24 PM | | procedure are in the | | | | PST | | results section. | + +--------+ + + + | ECHO COMPLETE | Routin | 09/10/2018 | | Results for this | | | e | 10:25 AM | | procedure are in the | | | | PST | | results section. | + +--------+ + + + | POC GLUCOSE | Routin | 09/10/2018 | | Results for this | | | e | 6:44 AM | | procedure are in the | | | | PST | | results section. | + +--------+ + + + | CBC WITH | Routin | 09/10/2018 | | Results for this | | DIFFERENTIAL | e | 3:16 AM | | procedure are in the | | | | PST | | results section. | + +--------+ + + + | RENAL FUNCTION PANEL | Routin | 09/10/2018 | | Results for this | | | e | 3:16 AM | | procedure are in the | | | | PST | | results section. | + +--------+ + + + | POC GLUCOSE | Routin | 09/09/2018 | | Results for this | | | e | 9:21 PM | | procedure are in the | | | | PST | | results section. | + +--------+ + + + | VANCOMYCIN LEVEL | Timed | 09/09/2018 | | Results for this | | | | 8:07 PM | | procedure are in the | | | | PST | | results section. | + +--------+ + + + | POC GLUCOSE | Routin | 09/09/2018 | | Results for this | | | e | 4:36 PM | | procedure are in the | | | | PST | | results section. | + +--------+ + + + | POC GLUCOSE | Routin | 09/09/2018 | | Results for this | | | e | 12:27 PM | | procedure are in the | | | | PST | | results section. | + +--------+ + + + | POC GLUCOSE | Routin | 09/09/2018 | | Results for this | | | e | 6:42 AM | | procedure are in the | | | | PST | | results section. | + +--------+ + + + | CBC WITH | Routin | 09/09/2018 | | Results for this | | DIFFERENTIAL | e | 4:31 AM | | procedure are in the | | | | PST | | results section. | + +--------+ + + + | RENAL FUNCTION PANEL | Routin | 09/09/2018 | | Results for this | | | e | 4:30 AM | | procedure are in the | | | | PST | | results section. | + +--------+ + + + | POC GLUCOSE | Routin | 09/08/2018 | | Results for this | | | e | 9:08 PM | | procedure are in the | | | | PST | | results section. | + +--------+ + + + | POC GLUCOSE | Routin | 09/08/2018 | | Results for this | | | e | 4:50 PM | | procedure are in the | | | | PST | | results section. | + +--------+ + + + | XR CHEST AP PORTABLE | Routin | 09/08/2018 | Cellulitis of left | Results for this | | | e | 2:58 PM | lower extremity | procedure are in the | | | | PST | | results section. | + +--------+ + + + | ECG 12 LEAD | [facility] | 09/08/2018 | | Results for this | | | | 1:30 PM | | procedure are in the | | | | PST | | results section. | + +--------+ + + + | POC GLUCOSE | Routin | 09/08/2018 | | Results for this | | | e | 11:58 AM | | procedure are in the | | | | PST | | results section. | + +--------+ + + + | EXTRA GREEN TOP TUBE | Routin | 09/08/2018 | | Results for this | | | e | 11:12 AM | | procedure are in the | | | | PST | | results section. | + +--------+ + + + | CBC NO DIFFERENTIAL | Routin | 09/08/2018 | | Results for this | | | e | 11:12 AM | | procedure are in the | | | | PST | | results section. | + +--------+ + + + | TYPE AND SCREEN | Routin | 09/08/2018 | | Results for this | | | e | 11:12 AM | | procedure are in the | | | | PST | | results section. | + +--------+ + + + | TSH | Add-On | 09/08/2018 | | Results for this | | | | 11:12 AM | | procedure are in the | | | | PST | | results section. | + +--------+ + + + | POC GLUCOSE | Routin | 09/08/2018 | | Results for this | | | e | 6:27 AM | | procedure are in the | | | | PST | | results section. | + +--------+ + + + | CBC WITH | Routin | 09/08/2018 | | Results for this | | DIFFERENTIAL | e | 4:50 AM | | procedure are in the | | | | PST | | results section. | + +--------+ + + + | RENAL FUNCTION PANEL | Routin | 09/08/2018 | | Results for this | | | e | 4:50 AM | | procedure are in the | | | | PST | | results section. | + +--------+ + + + | POC GLUCOSE | Routin | 09/07/2018 | | Results for this | | | e | 8:37 PM | | procedure are in the | | | | PST | | results section. | + +--------+ + + + | POC GLUCOSE | Routin | 09/07/2018 | | Results for this | | | e | 4:51 PM | | procedure are in the | | | | PST | | results section. | + +--------+ + + + | POC GLUCOSE | Routin | 09/07/2018 | | Results for this | | | e | 12:34 PM | | procedure are in the | | | | PST | | results section. | + +--------+ + + + | CULTURE, WOUND, | Routin | 09/07/2018 | | Results for this | | SMEAR | e | 11:24 AM | | procedure are in the | | | | PST | | results section. | + +--------+ + + + | CULTURE, WOUND, | Routin | 09/07/2018 | | Results for this | | SMEAR, W/ANAEROBE | e | 11:24 AM | | procedure are in the | | | | PST | | results section. | + +--------+ + + + | CULTURE, ANAEROBIC | Routin | 09/07/2018 | | Results for this | | | e | 11:24 AM | | procedure are in the | | | | PST | | results section. | + +--------+ + + + | POC GLUCOSE | Routin | 09/07/2018 | | Results for this | | | e | 11:08 AM | | procedure are in the | | | | PST | | results section. | + +--------+ + + + | AMPUTATION TOE | | 09/07/2018 | infection left | | | | | 9:40 AM | foot | | | | | PST | | | + +--------+ + + + | INCISION AND | | 09/07/2018 | infection left | | | DRAINAGE FOOT | | 9:40 AM | foot | | | | | PST | | | + +--------+ + + + | CULTURE, WOUND, | Routin | 09/07/2018 | | Results for this | | SMEAR | e | 9:20 AM | | procedure are in the | | | | PST | | results section. | + +--------+ + + + | CULTURE, WOUND, | Routin | 09/07/2018 | | Results for this | | SMEAR, W/ANAEROBE | e | 9:20 AM | | procedure are in the | | | | PST | | results section. | + +--------+ + + + | CULTURE, ANAEROBIC | Routin | 09/07/2018 | | Results for this | | | e | 9:20 AM | | procedure are in the | | | | PST | | results section. | + +--------+ + + + | POC GLUCOSE | Routin | 09/07/2018 | | Results for this | | | e | 6:21 AM | | procedure are in the | | | | PST | | results section. | + +--------+ + + + | CULTURE, BLOOD | Routin | 09/07/2018 | | Results for this | | | e | 5:19 AM | | procedure are in the | | | | PST | | results section. | + +--------+ + + + | IRON AND TRANSFERRIN | Add-On | 09/07/2018 | | Results for this | | | | 5:15 AM | | procedure are in the | | | | PST | | results section. | + +--------+ + + + | CULTURE, BLOOD | Routin | 09/07/2018 | | Results for this | | | e | 5:15 AM | | procedure are in the | | | | PST | | results section. | + +--------+ + + + | CBC WITH | Routin | 09/07/2018 | | Results for this | | DIFFERENTIAL | e | 5:15 AM | | procedure are in the | | | | PST | | results section. | + +--------+ + + + | FERRITIN | Add-On | 09/07/2018 | | Results for this | | | | 5:15 AM | | procedure are in the | | | | PST | | results section. | + +--------+ + + + | RENAL FUNCTION PANEL | Routin | 09/07/2018 | | Results for this | | | e | 5:15 AM | | procedure are in the | | | | PST | | results section. | + +--------+ + + + | VANCOMYCIN LEVEL | Timed | 09/07/2018 | | Results for this | | | | 12:16 AM | | procedure are in the | | | | PST | | results section. | + +--------+ + + + | SURGICAL PATHOLOGY | Routin | 09/07/2018 | | Results for this | | EXAM | e | 12:00 AM | | procedure are in the | | | | PST | | results section. | + +--------+ + + + | POC GLUCOSE | Routin | 09/06/2018 | | Results for this | | | e | 9:53 PM | | procedure are in the | | | | PST | | results section. | + +--------+ + + + | MRI FOOT LEFT WO | [facility] | 09/06/2018 | | Results for this | | CONTRAST | | 8:03 PM | | procedure are in the | | | | PST | | results section. | + +--------+ + + + | POC GLUCOSE | Routin | 09/06/2018 | | Results for this | | | e | 5:55 PM | | procedure are in the | | | | PST | | results section. | + +--------+ + + + | POC GLUCOSE | Routin | 09/06/2018 | | Results for this | | | e | 11:56 AM | | procedure are in the | | | | PST | | results section. | + +--------+ + + + | POC GLUCOSE | Routin | 09/06/2018 | | Results for this | | | e | 6:35 AM | | procedure are in the | | | | PST | | results section. | + +--------+ + + + | SEDIMENTATION RATE | Add-On | 09/06/2018 | | Results for this | | | | 5:55 AM | | procedure are in the | | | | PST | | results section. | + +--------+ + + + | PROTIME INR | Routin | 09/06/2018 | | Results for this | | | e | 5:55 AM | | procedure are in the | | | | PST | | results section. | + +--------+ + + + | CBC WITH | Routin | 09/06/2018 | | Results for this | | DIFFERENTIAL | e | 5:55 AM | | procedure are in the | | | | PST | | results section. | + +--------+ + + + | C-REACTIVE PROTEIN | Add-On | 09/06/2018 | | Results for this | | | | 5:55 AM | | procedure are in the | | | | PST | | results section. | + +--------+ + + + | MAGNESIUM | Routin | 09/06/2018 | | Results for this | | | e | 5:55 AM | | procedure are in the | | | | PST | | results section. | + +--------+ + + + | BASIC METABOLIC | Routin | 09/06/2018 | | Results for this | | PANEL | e | 5:55 AM | | procedure are in the | | | | PST | | results section. | + +--------+ + + + | POC GLUCOSE | Routin | 09/05/2018 | | Results for this | | | e | 11:20 PM | | procedure are in the | | | | PST | | results section. | + +--------+ + + + | CULTURE, BLOOD | STAT | 09/05/2018 | | Results for this | | | | 6:06 PM | | procedure are in the | | | | PST | | results section. | + +--------+ + + + | XR FOOT RIGHT 3 + VW | STAT | 09/05/2018 | | Results for this | | | | 5:57 PM | | procedure are in the | | | | PST | | results section. | + +--------+ + + + | BLOOD CULTURE GM | Routin | 09/05/2018 | | Results for this | | POSITIVE PATHOGEN | e | 5:25 PM | | procedure are in the | | PANEL, PCR | | PST | | results section. | + +--------+ + + + | CULTURE, BLOOD | STAT | 09/05/2018 | | Results for this | | | | 5:25 PM | | procedure are in the | | | | PST | | results section. | + +--------+ + + + | CBC WITH | STAT | 09/05/2018 | | Results for this | | DIFFERENTIAL | | 5:25 PM | | procedure are in the | | | | PST | | results section. | + +--------+ + + + | LACTIC ACID | STAT | 09/05/2018 | | Results for this | | | | 5:25 PM | | procedure are in the | | | | PST | | results section. | + +--------+ + + + | COMPREHENSIVE | STAT | 09/05/2018 | | Results for this | | METABOLIC PANEL | | 5:25 PM | | procedure are in the | | | | PST | | results section. | + +--------+ + + + documented in this encounter Results POC Glucose (09/11/2018 7:05 AM PST) + +-------+ + + + | Component | Value | Ref Range | Performed | Pathologist | | | | | At | Signature | + +-------+ + + + | Glucose, | 98 | 70 - 109 mg/dL | [facility] [...] + | [facility] | [address] | [place] | [phone] | | [facility] | | [address] | | | - LABORATORY | | | | + + + + + Renal Function Panel (09/11/2018 5:27 AM PST) + + + + + + | Component | Value | Ref Range | Performed | Pathologist | | | | | At | Signature | + + + + + + | Na | 134 (L) | 136 - 149 | [facility] | | | | | mmol/L | [facility] | | | | | | [facility] | | | | | | C[facility] - | | | | | | LABORATORY | | + + + + + + | K | 5.0 | 3.5 - 5.1 | [facility] | | | | | mmol/L | [facility] | | | | | | [facility] | | | | | | CENTER - | | | | | | LABORATORY | | + + + + + + | Cl | 101 | 98 - 109 mmol/L | [facility] | | | | | | [facility] | | | | | | [facility] | | | | | | C[facility] - | | | | | | LABORATORY | | + + + + + + | CO2 | 24 | 24 - 31 mmol/L | [facility] | | | | | | [facility] | | | | | | [facility] | | | | | | CENTER - | | | | | | LABORATORY | | + + + + + + | Anion Gap | 9 | 3 - 16 mmol/L | [facility] | | | | | | [facility] | | | | | | [facility] | | | | | | CENTER - | | | | | | LABORATORY | | + + + + + + | Glucose | 106 | 70 - 109 mg/dL | [facility] | | | | | | [facility] | | | | | | [facility] | | | | | | CENTER - | | | | | | LABORATORY | | + + + + + + | BUN | 40 (H) | 7 - 18 mg/dL | [facility] | | | | | | [facility] | | | | | | [facility] | | | | | | CENTER - | | | | | | LABORATORY | | + + + + + + | Creatinine | 8.51 (HH)Comment: | 0.60 - 1.30 | [facility] | | | | Critical Result called | mg/dL | [facility] | | | | to and read back by | | MEDICAL | | | | Ashley Trotter on | | CENTER - | | | | 09/11/2018 at 5:58 by | | LABORATORY | | | | Roderick E Arns. | | | | + + + + + + | eGFR if not | 6 (L) | >=60 | [facility] | | | | | mL/min/1.73m2 | [facility] | | | [facility] | | | [facility] | | | | | | CENTER - | | | | | | LABORATORY | | + + + + + + | Calcium | 7.4 (L) | 8.3 - 10.5 | [facility] | | | | | mg/dL | [facility] | | | | | | MEDICAL | | | | | | CENTER - | | | | | | LABORATORY | | + + + + + + | Albumin | 2.3 (L) | 3.2 - 5.0 g/dL | [facility] | | | | | | [facility] | | | | | | [facility] | | | | | | CENTER - | | | | | | LABORATORY | | + + + + + + | Phosphorus | 5.7 (H) | 2.5 - 4.6 mg/dL | [facility] | | | | | | [facility] | | | | | | [facility]ICAL | | | | | | CENTER - | | | | | | LABORATORY | | + + + + + + | BUN/Creatin | 4.7 | | [facility] | | | ine [...] + | [facility] | [address] | [place] | [phone] | | [facility] | | [address] | | | - LABORATORY | | | | + + + + + CBC with Differential (09/11/2018 5:27 AM PST) + + + + + + | Component | Value | Ref Range | Performed | Pathologist | | | | | At | Signature | + + + + + + | WBC | 8.4 | 4.0 - 11.0 K/uL | [facility] | | | | | | [facility] | | | | | | MEDICAL | | | | | | CENTER - | | | | | | LABORATORY | | + + + + + + | RBC | 2.63 (L) | 4.30 - 5.70 | [facility] | | | | | M/uL | [facility] | | | | | | MEDICAL | | | | | | CENTER - | | | | | | LABORATORY | | + + + + + + | Hemoglobin | 7.9 (L) | 13.5 - 18.0 | [facility] | | | | | g/dL | [facility] | | | | | | MEDICAL | | | | | | CENTER - | | | | | | LABORATORY | | + + + + + + | Hematocrit | 25.4 (L) | 40.0 - 51.0 % | [facility] | | | | | | [facility] | | | | | | [facility] | | | | | | CENTER - | | | | | | LABORATORY | | + + + + + + | MCV | 96.6 | 83.0 - 101.0 fL | [facility] | | | | | | [facility] | | | | | | [facility] | | | | | | CENTER - | | | | | | LABORATORY | | + + + + + + | MCH | 30.0 | 28.0 - 35.0 pg | [facility] | | | | | | [facility] | | | | | | [facility] | | | | | | CENTER - | | | | | | LABORATORY | | + + + + + + | MCHC | 31.1 (L) | 32.0 - 36.0 | [facility] | | | | | g/dL | [facility] | | | | | | MEDICAL | | | | | | CENTER - | | | | | | LABORATORY | | + + + + + + | RDW-CV | 14.8 | <15.0 % | [facility] | | [...] + + + + | Platelet | 343 | 140 - 440 K/uL | [facility] | | | Count | | | [facility] | | | | | | [facility] | | | | | | CENTER - | | | | | | LABORATORY | | + + + + + + | MPV | 9.2 | 6.5 - 12.4 fL | [facility] | | | | | | [facility] | | | | | | [facility] | | | | | | CENTER - | | | | | | LABORATORY | | + + + + + + | % | 63.8 | 45.0 - 82.0 % | [facility] | | | Neutrophils | | | [facility] | | | | | | MEDICAL | | | | | | CENTER - | | | | | | LABORATORY | | + + + + + + | % | 19.3 (L) | 20.0 - 45.0 % | [facility] | | | Lymphocytes | | | [facility] | | | | | | MEDICAL | | | | | | CENTER - | | | | | | LABORATORY | | + + + + + + | % Monocytes | 8.9 | 4.0 - 12.0 % | [facility] | | | | | | [facility] | | | | | | [facility]ICAL | | | | | | CENTER - | | | | | | LABORATORY | | + + + + + + | % | 6.1 (H) | 0.0 - 5.0 % | [facility] | | | Eosinophils | | | [facility] | | | | | | MEDICAL | | | | | | CENTER - | | | | | | LABORATORY | | + + + + + + | % Basophils | 1.1 (H) | 0.0 - 1.0 % | [facility] | | | | | | [facility] | | | | | | MEDICAL | | | | | | CENTER - | | | | | | LABORATORY | | + + + + + + | % Immature | 0.8 (H)Comment: | 0.0 - 0.4 % | [facility] | | | Granulocyte | Preliminary studIes have | | [facility] | | | s | indicated the IG% | | MEDICAL | | | | and/or IG# show promise | | CENTER - | | | | as an early screen for | | LABORATORY | | | | infection. | | | | + + + + + + | Absolute | 5.34 | 1.80 - 8.50 | [facility] | | | Neutrophils | | K/uL | [facility] | | | | | | MEDICAL | | | | | | CENTER - | | | | | | LABORATORY | | + + + + + + | Absolute | 1.62 | 0.60 - 3.20 | [facility] | | | Lymphocytes | | K/uL | [facility] | | | | | | MEDICAL | | | | | | CENTER - | | | | | | LABORATORY | | + + + + + + | Absolute | 0.75 | 0.00 - 1.00 | [facility] | | | Monocytes | | K/uL | [facility] | | | | | | MEDICAL | | | | | | CENTER - | | | | | | LABORATORY | | + + + + + + | Absolute | 0.51 (H) | 0.00 - 0.40 | [facility] | | | Eosinophils | | K/uL | [facility] | | | | | | MEDICAL | | | | | | CENTER - | | | | | | LABORATORY | | + + + + + + | Absolute | 0.09 | 0.00 - 0.10 | [facility] | | | Basophils | | K/uL | [facility] | | | | | | MEDICAL | | | | | | CENTER - | | | | | | LABORATORY | | + + + + + + | Absolute | 0.07 (H) | 0.00 - 0.03 | [facility] [...] | [facility] | | | | | WBC's | [facility] | | | | [...] [facility] | [address] | [place], [place] | [phone] | | [facility] | | [address] | | | - LABORATORY | | | | + + + + + PTT (09/11/2018 5:26 AM PST) + +-------+ + + + | Component | Value | Ref Range | Performed | Pathologist | | | | | At | Signature | + +-------+ + + + | aPTT | 32 | 22 - 36 seconds | [facility] | | | | | | [facility] [address] | [place] | [phone] | | [facility] | | [address] | | | - LABORATORY | | | | + + + + + Protime INR (09/11/2018 5:26 AM PST) + + + + + + | Component | Value | Ref Range | Performed | Pathologist | | | | | At | Signature | + + + + + + | Prothrombin | 17.0 (H) | 11.3 - 13.9 | [facility] | | | Time | | seconds | [facility] | | | | | | MEDICAL | | | | | | CENTER - | | | | | | LABORATORY | | + + + + + + | INR | 1.4 (H)Comment: Usual | 0.9 - 1.1 | [facility] | | | | Oral Anticoagulation | | [facility] | | | | Range: 2.0 - | | MEDICAL | | | | 3.0High Level Oral | | CENTER - | | | | Anticoagulation Range: | | LABORATORY | | | | 2.5 - 3.5 | | | | + + + + + + + + | Specimen | + + | Blood | + + + + + + + | Performing | Address | City/State/Zipcode | Phone Number | | Organization | | | | + + + + + | [facility] | [address] | [place] | [phone] | | [facility] | | [address] | | | - LABORATORY | | | | + + + + + POC Glucose (09/10/2018 9:07 PM PST) + +---------+ + + + | Component | Value | Ref Range | Performed | Pathologist | | | | | At | Signature | + +---------+ + + + | Glucose, | 122 (H) | 70 - 109 mg/dL | [...] St | [place] | [phone] | | [facility] | | [address] | | | - LABORATORY | | | | + + + + + POC Glucose (09/10/2018 5:07 PM PST) + +---------+ + + + | Component | Value | Ref Range | Performed | Pathologist | | | | | At | Signature | + +---------+ + + + | Glucose, | 114 (H) | 70 - 109 mg/dL | [...] + | [facility] | [address] | [place] | [phone] | | [facility] | | [address] | | | - LABORATORY | | | | + + + + + CT Angio Abd Aorta Bilat Fem Run W Cont (09/10/2018 2:35 PM PST) + + | Specimen | + + | | + + + + + | Narrative | Performed At | + + + | CT ANGIOGRAM ABDOMEN AORTA BILAT FEMORAL RUNOFF W CONTRAST 09/10/2018 | [facility] | | 2:20 PM HISTORY: deep seated abscess with osteo. Left foot, T2DM, | | | HL, please evaluate for occlusive PAD? Thanks.. COMPARISON: | | | 05/13/2014 PROTOCOL: Thin section axial CTA images of the abdomen, | | | pelvis, and bilateral lower extremities were obtained after 200 mL | | | Omnipaque 350. Coronal and sagittal reformations were acquired. | | | FINDINGS: Aorta: Normal in caliber with mild volume of calcified | | | plaque. Severe coronary artery calcifications and aortic root | | | calcifications are noted. Celiac, bilateral renal arteries, and the | | | LIO are patent. Moderate stenosis at the origin of the SMA. | | | Right: Common iliac, internal iliac, external iliac, common femoral, | | | and deep femoral vessels are widely patent with only mild calcified | | | plaque. Moderate circumferential calcified plaque is seen throughout | | | the superficial femoral and popliteal vessels without significant | | | stenosis. High-grade stenosis at the origin of the peroneal artery. | | | Severe calcification of the mid and distal trifurcation vessels make | | | assessment of intraluminal contrast opacification nearly impossible. | | | There is thought to be contrast within the trifurcation vessels | | | throughout the course with multiple areas of significant luminal | | | irregularity/stenosis suspected. Left: Common iliac, internal | | | iliac, external iliac, common femoral, and deep femoral vessels are | | | widely patent with only mild calcified plaque. Moderate | | | circumferential calcified plaque is seen throughout the superficial | | | femoral and popliteal vessels without significant stenosis. Severe | | | segmental calcification involving all trifurcation vessels with areas | | | of luminal irregularity suspicious for some level of stenosis which | | | is difficult to evaluate given the large amount of circumferential | | | calcification. These vessels are thought to be patent throughout | | | their course; although this is difficult to evaluate given the large | | | amount of calcification. Chest base is normal. Heart is normal in | | | size. Mild right posterior pleural thickening. Diffusely nodular | | | contour of the liver compatible with cirrhosis. No suspicious hepatic | | | mass identified on this single phase arterial CT. Moderate ascites. | | | Gallbladder is collapsed. Normal appearance of the pancreas, spleen, | | | adrenal glands, and atrophic kidneys. Simple appearing cyst is seen | | | along the inferior pole of the right kidney. No evidence of | | | hydronephrosis or hydroureter. Scattered subthreshold/subcentimeter | | | para-aortic lymph nodes are identified. Mildly enlarged left common | | | femoral and left superficial inguinal lymph nodes. Large amount of | | | ascitic fluid is seen within the right inguinal canal and right | | | scrotum. Urinary bladder is nondistended and poorly evaluated. | | | Heterogeneous calcifications are seen within the upper limits of | | | normal in size prostate. A few scattered noninflamed colonic | | | diverticula are identified. No evidence of an acute bowel | | | abnormality. Appendix is normal. Small bowel is normal in caliber. | | | Abdominal wall soft tissues demonstrate no acute abnormal bodies. | | | Bilateral inguinal hernias. Multilevel degenerative changes are seen | | | involving the thoracolumbar spine without evidence of acute osseous | | | abnormality. Soft tissue ulceration and foci of subcutaneous | | | emphysema is seen in the dorsal and plantar aspects of the second and | | | third amputation stump soft tissues. Complete amputation of the | | | second and third digits. Prior amputation of the head of the second | | | and third metatarsals. Apparent hypodense fluid collection/phlegmon | | | measuring 4.1 x 2.8 x 3.2 cm suspicious for an abscess. No convincing | | | osseous fragmentation/erosion on this CT to convincingly suggest | | | osteomyelitis. CT is insensitive for this diagnosis. Mild diffuse soft | | | tissue swelling involving the lateral perifibular soft tissues and | | | likely a small left ankle joint effusion. Scattered degenerative | | | changes are seen involving bilateral feet, ankles and knees osseous | | | structures. Trace bilateral suprapatellar joint effusions. Fractured | | | osteophyte or chronic degenerative change accounting for the ossific | | | fragment along the lateral aspect of the right patella. | | | IMPRESSION - Soft tissue ulceration and foci of subcutaneous | | | emphysema is seen in the dorsal and plantar aspects of the second and | | | third amputation stump soft tissues. Complete amputation of the | | | second and third digits and amputation of the head of the second and | | | third metatarsals. Apparent hypodense fluid collection/phlegmon | | | measuring 4.1 x 2.8 x 3.2 cm suspicious for an abscess in the | | | forefoot of the left foot - at the location of prior second and third | | | toe amputation site. No convincing osseous fragmentation/erosion | | | on this CT to convincingly suggest osteomyelitis. CT is insensitive | | | for this diagnosis. MRI is offered for further evaluation if there is | | | continued concern. Aorta and all visualized lower extremity | | | vasculature is thought to be patent. Severe circumferential | | | atherosclerotic calcifications of the trifurcation vessels makes | | | evaluation of patency very difficult. Cirrhosis and stigmata of | | | portal hypertension. RECOMMENDATION: Recommend diagnostic | | | angiogram with bilateral lower extremity runoff for the assessment of | | | peripheral artery disease if there is continued concern for vascular | | | insufficiency given the above limitations of significant | | | trifurcation vessel calcifications. Dictated and Signed by: Yoel | | | MD Victor Manuel Electronically signed: 09/10/2018 3:26 PM | | + + + + + | Procedure Note | + + | Kana, Rad Results In - 09/10/2018 3:[address] ANGIOGRAM ABDOMEN AORTA BILAT | | FEMORAL RUNOFF W CONTRAST 09/10/2018 2:20 PMHISTORY: deep seated abscess with osteo. Left | | foot, T2DM, HL, please evaluatefor occlusive PAD? Thanks..COMPARISON: | | 05/13/2014PROTOCOL: Thin section axial CTA images of the abdomen, pelvis, and | | bilaterallower extremities were obtained after 200 mL Omnipaque 350. Coronal and | | sagittalreformations were acquired.FINDINGS:Aorta: Normal in caliber with mild volume of | | calcified plaque. Severe coronaryartery calcifications and aortic root calcifications | | are noted. Celiac,bilateral renal arteries, and the LIO are patent. Moderate stenosis at | | theorigin of the SMA.Right: Common iliac, internal iliac, external iliac, common | | femoral, and deepfemoral vessels are widely patent with only mild calcified plaque. | | Moderate circumferential calcified plaque is seen throughout the superficial femoral | | andpopliteal vessels without significant stenosis. High-grade stenosis at theorigin of | | the peroneal artery. Severe calcification of the mid and distaltrifurcation vessels make | | assessment of intraluminal contrast opacificationnearly impossible. There is thought to | | be contrast within the trifurcationvessels throughout the course with multiple areas of | | significant luminalirregularity/stenosis suspected.Left: Common iliac, internal iliac, | | external iliac, common femoral, and deepfemoral vessels are widely patent with only mild | | calcified plaque. Moderate circumferential calcified plaque is seen throughout the | | superficial femoral andpopliteal vessels without significant stenosis. Severe segmental | | calcificationinvolving all trifurcation vessels with areas of luminal irregularity | | suspiciousfor some level of stenosis which is difficult to evaluate given the large | | amountof circumferential calcification. These vessels are thought to be patentthroughout | | their course; although this is difficult to evaluate given the largeamount of | | calcification.Chest base is normal. Heart is normal in size. Mild right posterior | | pleuralthickening. Diffusely nodular contour of the liver compatible with cirrhosis. | | Nosuspicious hepatic mass identified on this single phase arterial CT. Moderateascites. | | Gallbladder is collapsed. Normal appearance of the pancreas, spleen,adrenal glands, and | | atrophic kidneys. Simple appearing cyst is seen along theinferior pole of the right | | kidney. No evidence of hydronephrosis or hydroureter.Scattered | | subthreshold/subcentimeter para-aortic lymph nodes are identified.Mildly enlarged left | | common femoral and left superficial inguinal lymph nodes.Large amount of ascitic fluid | | is seen within the right inguinal canal and rightscrotum. Urinary bladder is | | nondistended and poorly evaluated. Heterogeneouscalcifications are seen within the upper | | limits of normal in size prostate. Afew scattered noninflamed colonic diverticula are | | identified. No evidence of anacute bowel abnormality. Appendix is normal. Small bowel is | | normal in caliber.Abdominal wall soft tissues demonstrate no acute abnormal bodies. | | Bilateralinguinal hernias. Multilevel degenerative changes are seen involving | | thethoracolumbar spine without evidence of acute osseous abnormality.Soft tissue | | ulceration and foci of subcutaneous emphysema is seen in the [place] plantar aspects | | of the second and third amputation stump soft tissues.Complete amputation of the second | | and third digits. Prior amputation of the headof the second and third metatarsals. | | Apparent hypodense fluidcollection/phlegmon measuring 4.1 x 2.8 x 3.2 cm suspicious for | | an abscess. Noconvincing osseous fragmentation/erosion on this CT to convincingly | | suggestosteomyelitis. CT is insensitive for this diagnosis. Mild diffuse soft | | tissueswelling involving the lateral perifibular soft tissues and likely a small | | leftankle joint effusion. Scattered degenerative changes are seen involvingbilateral | | feet, ankles and knees osseous structures. Trace bilateralsuprapatellar joint effusions. | | Fractured osteophyte or chronic degenerativechange accounting for the ossific fragment | | along the lateral aspect of the rightpatella.IMPRESSION -Soft tissue ulceration and foci | | of subcutaneous emphysema is seen in the [place] plantar aspects of the second and | | third amputation stump soft tissues.Complete amputation of the second and third digits | | and amputation of the head ofthe second and third metatarsals. Apparent hypodense fluid | | collection/phlegmon measuring 4.1 x 2.8 x 3.2 cmsuspicious for an abscess in the | | forefoot of the left foot - at the location ofprior second and third toe amputation | | site. No convincing osseous fragmentation/erosion on this CT to convincingly | | suggestosteomyelitis. CT is insensitive for this diagnosis. MRI is offered for | | furtherevaluation if there is continued concern.Aorta and all visualized lower extremity | | vasculature is thought to be patent.Severe circumferential atherosclerotic | | calcifications of the trifurcationvessels makes evaluation of patency very | | difficult.Cirrhosis and stigmata of portal hypertension.RECOMMENDATION: Recommend | | diagnostic angiogram with bilateral lower extremityrunoff for the assessment of | | peripheral artery disease if there is continuedconcern for vascular insufficiency given | | the above limitations of significanttrifurcation vessel calcifications.Dictated and | | Signed by: Yoel Rush MD Electronically signed: 09/10/2018 3:26 PM | |suprapatellar joint effusions. Fractured osteophyte or chronic degenerative | |change accounting for the ossific fragment along the lateral aspect of the right | |patella. | | | |IMPRESSION - | |Soft tissue ulceration and foci of subcutaneous emphysema is seen in the dorsal | |and plantar aspects of the second and third amputation stump soft tissues. | |Complete amputation of the second and third digits and amputation of the head of | |the second and third metatarsals. | | | | Apparent hypodense fluid collection/phlegmon measuring 4.1 x 2.8 x 3.2 cm | |suspicious for an abscess in the forefoot of the left foot - at the location of | |prior second and third toe amputation site. | | | |No convincing osseous fragmentation/erosion on this CT to convincingly suggest | |osteomyelitis. CT is insensitive for this diagnosis. MRI is offered for further | |evaluation if there is continued concern. | | | |Aorta and all visualized lower extremity vasculature is thought to be patent. | | | |Severe circumferential atherosclerotic calcifications of the trifurcation | |vessels makes evaluation of patency very difficult. | | | |Cirrhosis and stigmata of portal hypertension. | | | |RECOMMENDATION: Recommend diagnostic angiogram with bilateral lower extremity | |runoff for the assessment of peripheral artery disease if there is continued | |concern for vascular insufficiency given the above limitations of significant | |trifurcation vessel calcifications. | | | |Dictated and Signed by: Yoel Rush MD | | Electronically signed: 09/10/2018 3:26 PM | + + + +---------+ + + | Performing | Address | City/State/Zipcode | Phone Number | | Organization | | | | + +---------+ + + | [facility] | | | | + +---------+ + + POC Glucose (09/10/2018 12:24 PM PST) + +---------+ + + + [...] ST. | [address] | [place], [place] | [phone] | | [facility] | | [id number] | | | - LABORATORY | | | | + + + + + ECHO Complete (09/10/2018 10:25 AM PST) + +--------+ + + + | Component | Value | Ref Range | Performed | Pathologist | | | | | At | Signature | + +--------+ + + + | Patient | 264 | | [facility] | | | Weight | | | | | | (lbs) | | | | | + +--------+ + + + | Patient | 6'1" | | [facility] | | | Height | | | | | + +--------+ + + + | LVIDd | 6.11 | cm | [facility] | | + +--------+ + + + | FS | 15 | % | [facility] | | + +--------+ + + + | LA volume | 170.67 | mL | [facility] | | + +--------+ + + + | Ascending | 3.48 | cm | [facility] | | | aorta | | | | | + +--------+ + + + | Aortic arch | 2.98 | cm | [facility] | | + +--------+ + + + | AV mean | 6.49 | mmHg | [facility] | | | gradient | | | | | + +--------+ + + + | MV mean | 5.04 | mmHg | [facility] | | | gradient | | | | | + +--------+ + + + | IVRT | 103.81 | msec | [facility] | | + +--------+ + + + | LVOT peak | 82.73 | cm/s | [facility] | | | shilpa | | | | | + +--------+ + + + | LVOT peak | 15.93 | cm | [facility] | | | VTI | | | | | + +--------+ + + + | AV peak shilpa | 169.31 | cm/s | [facility] | | + +--------+ + + + | AV VTI | 33.57 | cm | [facility] | | + +--------+ + + + | AV peak | 11.47 | mmHg | [facility] | | | gradient | | | | | + +--------+ + + + | MV peak | 12.19 | mmHg | [facility] | | | gradient | | | | | + +--------+ + + + | LA Volume | 71 | mL/m2 | [facility] | | | Index | | | | | + +--------+ + + + | AV LVOT | 2.74 | mmHg | [facility] | | | Peak | | | | | | Gradient | | | | | + +--------+ + + + | AV LVOT | 1.45 | mmHg | [facility] | | | Mean | | | | | | Gradient | | | | | + +--------+ + + + | TR Peak | 41 | mmHg | [facility] | | | Gradient | | | | | + +--------+ + + + | TR Velocity | 319.41 | cm | [facility] | | + +--------+ + + + | LV | 8.29 | cm | [facility] | | | Diastolic | | | | | | Length 4C | | | | | + +--------+ + + + | LV | 45 | % | [facility] | | | Billings's | | | | | | Biplane EF | | | | | + +--------+ + + + | LV ED | 172.52 | ml | [facility] | | | Volume | | | | | | (Billings's) | | | | | + +--------+ + + + | LV ED | 71 | ml/m2 | [facility] | | | Volume | | | | | | Index | | | | | + +--------+ + + + | LV ES | 83.39 | ml | [facility] | | | Volume | | | | | + +--------+ + + + | LVOT Mean | 56.82 | cm/s | [facility] | | | Velocity | | | | | + +--------+ + + + | MV E' | 8 | cm/s | [facility] | | | Septal | | | | | | Velocity | | | | | + +--------+ + + + | MV | 221.57 | msec | [facility] | | | Deceleratio | | | | | | n Time | | | | | + +--------+ + + + | MV Mean | 103.77 | cm/s | [facility] | | | Velocity | | | | | + +--------+ + + + | MV Peak | 174.57 | cm/s | [facility] | | | E-Wave | | | | | + +--------+ + + + | AV Mean | 122.82 | cm/s | [facility] | | | Velocity | | | | | + +--------+ + + + | LA/Aorta | 1.68 | | [facility] | | | Ratio | | | | | + +--------+ + + + | MV E/E | 21.82 | | [facility] | | | SEPTAL | | | | | + +--------+ + + + | LA Major | 0.3357 | cm | [facility] | | + +--------+ + + + | LV ES | 34 | ml/m2 | [facility] | | | Volume | | | | | | Index | | | | | + +--------+ + + + | Aortic Root | 3.73 | cm | [facility] | | | Diameter | | | | | + +--------+ + + + | IVS | 1.11 | cm | [facility] | | | Diastolic | | | | | | Thickness | | | | | | MM | | | | | + +--------+ + + + | LVPW | 1.28 | cm | [facility] | | | Diastolic | | | | | | Thickness | | | | | | MM | | | | | + +--------+ + + + | IVS | 1.11 | cm | [facility] | | | Systolic | | | | | | Thickness | | | | | | MM | | | | | + +--------+ + + + | LV Systolic | 5.18 | cm | [facility] | | | Diameter | | | | | | MM | | | | | + +--------+ + + + | LVPW | 1.24 | cm | [facility] | | | Systolic | | | | | | Thickness | | | | | | MM | | | | | + +--------+ + + + | AV Cusp | 2.6 | cm | [facility] | | | Seperation | | | | | | MM | | | | | + +--------+ + + + | LA Systolic | 6.25 | cm | [facility] | | | Diameter | | | | | | MM | | | | | + +--------+ + + + | TAPSE | 1.0 | cm | [facility] | | + +--------+ + + + | LVEF-TTE | 45 | | [facility] | | | TRANSTHORAC | | | | | | IC ECHO | | | | | + +--------+ + + + + + | Specimen | + + | | + + + + -+ | Narrative | Performed At | + + -+ | Transthoracic | [facility] | | Echocardiography Report (TTE) Demographics Patient Name CASE | | | ISIDRA HERNANDEZ Room Number 436 Patient Number | | | [id number] Date of Study 09/10/2018 Visit | | | Number [id number] | | | Referring Physician ERNESTO Pena Number Date of | | | 1960 [employer] Age | | | 58 year(s) Interpreting | | | DENISE COMER MD | | | Director Of Development And Marketing ERNESTO Pena Gender | | | Male 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 Procedure dateDate: 09/10/2018Start: 09:28 AM Technical | | | Quality: Adequate visualizationStudy Location: Adult Floor Patient | | | Status: RoutineHeight: 73 inchesWeight: 264 poundsBSA: 2.42 m^2BMI: | | | 34.83 kg/m^2Rhythm: Atrial flutterHR: 92 bpm ConclusionsSummaryThe | | | left ventricle appears mildly enlarged with mild to moderate | | | mobilehypokinesis. LVEF is estimated in the range of 40-45%.Mitral | | | valve is mildly thickened with mild insufficiency and borderline | | | tomild stenosis.Structurally normal tricuspid valve with moderate | | | insufficiency and peakvelocity consistent with RVSP 46-51 mmHg.Left | | | atrium is moderately enlarged.Right Atrium is moderately enlarged. | | | Signature | | | | | | PM | | | -------- FindingsMitral ValveMitral valve is mildly thickened with | | | mild insufficiency and borderline tomild stenosis.Aortic ValveAortic | | | valve is mildly thickened and cannot be defined as trileaflet. Thereis | | | no obvious significant stenosis or insufficiency noted.Tricuspid | | | ValveStructurally normal tricuspid valve with moderate insufficiency | | | and peakvelocity consistent with RVSP 46-51 mmHg.Pulmonic ValveNormal | | | pulmonic valve structure and function. Normal pulmonary valve andRVOT | | | flow by color and Doppler flow imaging.Left AtriumLeft atrium is | | | moderately enlarged.Left VentricleThe left ventricle appears mildly | | | enlarged with mild to moderate mobilehypokinesis. LVEF is estimated in | | | the range of 40-45%.Right AtriumRight Atrium is moderately | | | enlarged.Right VentricleNormal right ventricular size.Right ventricle | | | global systolic function is normal.Pericardial EffusionNo evidence of | | | pericardial effusion.Pleural EffusionNo evidence of pleural | | | effusion.MiscellaneousMeasurements and calculations provided in the | | | report sections maybeincomplete. Additional m-mode, 2D, Doppler, | | | Doppler tissue, strain, andother hemodynamic assessments performed and | | | documented within the imageviewer. Valves Mitral Valve Peak E-Wave: | | | 174.57 cm/s Tissue Doppler Septal e' Velocity: 8.00 cm/s Septal | | | E/e' Ratio: Aortic Valve Peak Velocity: 169.31 cm/s | | | Mean Gradient: 6.49 mmHg Peak Gradient: 11.47 mmHg Tricuspid Valve | | | TR Velocity: 319.41 cm/s LVOT Peak Velocity: 82.73 cm/s Structures | | | Left Atrium LA A/P Dimension: 6.25 cm LA | | | Volume: 170.67 ml LA/Aorta:1.68 LA Vol/BSA Index: 71 mL/m^2 LA | | | Major:0.3357 Left Ventricle Diastolic Dimension: 6.11 cm | | | Systolic Dimension: 5.18 cm Septum Diastolic: 1.11 cm PW Diastolic: | | | 1.28 cm EF Hdyzjsedj63% EF Calculated: 45% Miscellaneous Aorta | | | Aortic Root: 3.73 cm Ascending Aorta: 3.48 cm | | |Findings | | |Mitral Valve | | |Mitral valve is mildly thickened with mild insufficiency and borderline to | | |mild stenosis. | | |Aortic Valve | | |Aortic valve is mildly thickened and cannot be defined as trileaflet. There | | |is no obvious significant stenosis or insufficiency noted. | | |Tricuspid Valve | | |Structurally normal tricuspid valve with moderate insufficiency and peak | | |velocity consistent with RVSP 46-51 mmHg. | | |Pulmonic Valve | | |Normal pulmonic valve structure and function. Normal pulmonary valve and | | |RVOT flow by color and Doppler flow imaging. | | |Left Atrium | | |Left atrium is moderately enlarged. | | |Left Ventricle | | |The left ventricle appears mildly enlarged with mild to moderate mobile | | |hypokinesis. LVEF is estimated in the range of 40-45%. | | |Right Atrium | | |Right Atrium is moderately enlarged. | | |Right Ventricle | | |Normal right ventricular size. | | |Right ventricle global systolic function is normal. | | |Pericardial Effusion | | |No evidence of pericardial effusion. | | |Pleural Effusion | | |No evidence of pleural effusion. | | |Miscellaneous | | |Measurements and calculations provided in the report sections maybe | | |incomplete. Additional m-mode, 2D, Doppler, Doppler tissue, strain, and | | |other hemodynamic assessments performed and documented within the image | | |viewer. | | | | | |Valves | | | | | | Mitral Valve | | | | | | Peak E-Wave: 174.57 cm/s | | | | | | Tissue Doppler | | | | | | Septal e' Velocity: 8.00 cm/s | | | Septal E/e' Ratio: | | | | | | Aortic Valve | | | | | | Peak Velocity: 169.31 cm/s Mean Gradient: 6.49 mmHg | | | Peak Gradient: 11.47 mmHg | | | | | | Tricuspid Valve | | | | | | TR Velocity: 319.41 cm/s | | | | | | LVOT | | | | | | Peak Velocity: 82.73 cm/s | | | | | |Structures | | | | | | Left Atrium | | | | | | LA A/P Dimension: 6.25 cm LA Volume: 170.67 ml | | | LA/Aorta:1.68 | | | LA Vol/BSA Index: 71 mL/m^2 | | | LA Major:0.3357 | | | | | | Left Ventricle | | | | | | Diastolic Dimension: 6.11 cm Systolic Dimension: 5.18 cm | | | Septum Diastolic: 1.11 cm | | | PW Diastolic: 1.28 cm | | | EF Irjgabeub31% | | | EF Calculated: 45% | | | | | | Miscellaneous | | | | | | Aorta | | | | | | Aortic Root: 3.73 cm | | | Ascending Aorta: 3.48 cm | | | | | + + -+ + + | Procedure Note | + + | Kana, Rad Results In - 09/10/2018 3:04 PM PST Transthoracic Echocardiography Report | | (TTE) Demographics Patient Name SERGEY HERNANDEZ Room Number 436 Patient | | Number [id number] Date of Study 09/10/2018 Visit Number [id number] | | Referring Physician ERNESTO Pena Number Date | | of 1960 [employer] Age 58 | | year(s) Interpreting DENISE COMER MD | | Director Of Development And Marketing ERNESTO Pena Gender Male Nurse | | Stress TechnicianProcedureType of Study TTE procedure: ECHO | | Complete.Procedure dateDate: 09/10/2018Start: 09:28 AMTechnical Quality: Adequate | | visualizationStudy Location: Adult FloorPatient Status: RoutineHeight: 73 inchesWeight: | | 264 poundsBSA: 2.42 m^2BMI: 34.83 kg/m^2Rhythm: Atrial flutterHR: 92 | | bpmConclusionsSummaryThe left ventricle appears mildly enlarged with mild to moderate | | mobilehypokinesis. LVEF is estimated in the range of 40-45%.Mitral valve is mildly | | thickened with mild insufficiency and borderline tomild stenosis.Structurally normal | | tricuspid valve with moderate insufficiency and peakvelocity consistent with RVSP 46-51 | | mmHg.Left atrium is moderately enlarged.Right Atrium is moderately | | enlarged.Signature | | ------ | | 03:04 | | PM FindingsMi | | tral ValveMitral valve is mildly thickened with mild insufficiency and borderline tomild | | stenosis.Aortic ValveAortic valve is mildly thickened and cannot be defined as | | trileaflet. Thereis no obvious significant stenosis or insufficiency noted.Tricuspid | | ValveStructurally normal tricuspid valve with moderate insufficiency and peakvelocity | | consistent with RVSP 46-51 mmHg.Pulmonic ValveNormal pulmonic valve structure and | | function. Normal pulmonary valve andRVOT flow by color and Doppler flow imaging.Left | | AtriumLeft atrium is moderately enlarged.Left VentricleThe left ventricle appears mildly | | enlarged with mild to moderate mobilehypokinesis. LVEF is estimated in the range of | | 40-45%.Right AtriumRight Atrium is moderately enlarged.Right VentricleNormal right | | ventricular size.Right ventricle global systolic function is normal.Pericardial | | EffusionNo evidence of pericardial effusion.Pleural EffusionNo evidence of pleural | | effusion.MiscellaneousMeasurements and calculations provided in the report sections | | maybeincomplete. Additional m-mode, 2D, Doppler, Doppler tissue, strain, andother | | hemodynamic assessments performed and documented within the imageviewer.Valves Mitral | | Valve Peak E-Wave: 174.57 cm/s Tissue Doppler Septal e' Velocity: 8.00 cm/s Septal E/e' | | Ratio: Aortic Valve Peak Velocity: 169.31 cm/s Mean Gradient: 6.49 mmHg Peak | | Gradient: 11.47 mmHg Tricuspid Valve TR Velocity: 319.41 cm/s LVOT Peak Velocity: 82.73 | | cm/sStructures Left Atrium LA A/P Dimension: 6.25 cm LA Volume: 170.67 ml | | LA/Aorta:1.68 LA Vol/BSA Index: 71 mL/m^2 LA Major:0.3357 Left Ventricle Diastolic | | Dimension: 6.11 cm Systolic Dimension: 5.18 cm Septum Diastolic: 1.11 cm PW | | Diastolic: 1.28 cm EF [id number]% EF Calculated: 45% Miscellaneous Aorta Aortic Root: | | 3.73 cm Ascending Aorta: 3.48 cm | |mild stenosis. | |Structurally normal tricuspid valve with moderate insufficiency and peak | |velocity consistent with RVSP 46-51 mmHg. | |Left atrium is moderately enlarged. | |Right Atrium is moderately enlarged. | | | |Signature | | | | Electronically signed by DENISE COMER MD(Interpreting physician) on | | 09/10/2018 03:04 PM | | | | | |Findings | |Mitral Valve | |Mitral valve is mildly thickened with mild insufficiency and borderline to | |mild stenosis. | |Aortic Valve | |Aortic valve is mildly thickened and cannot be defined as trileaflet. There | |is no obvious significant stenosis or insufficiency noted. | |Tricuspid Valve | |Structurally normal tricuspid valve with moderate insufficiency and peak | |velocity consistent with RVSP 46-51 mmHg. | |Pulmonic Valve | |Normal pulmonic valve structure and function. Normal pulmonary valve and | |RVOT flow by color and Doppler flow imaging. | |Left Atrium | |Left atrium is moderately enlarged. | |Left Ventricle | |The left ventricle appears mildly enlarged with mild to moderate mobile | |hypokinesis. LVEF is estimated in the range of 40-45%. | |Right Atrium | |Right Atrium is moderately enlarged. | |Right Ventricle | |Normal right ventricular size. | |Right ventricle global systolic function is normal. | |Pericardial Effusion | |No evidence of pericardial effusion. | |Pleural Effusion | |No evidence of pleural effusion. | |Miscellaneous | |Measurements and calculations provided in the report sections maybe | |incomplete. Additional m-mode, 2D, Doppler, Doppler tissue, strain, and | |other hemodynamic assessments performed and documented within the image | |viewer. | | | |Valves | | | | Mitral Valve | | | | Peak E-Wave: 174.57 cm/s | | | | Tissue Doppler | | | | Septal e' Velocity: 8.00 cm/s | | Septal E/e' Ratio: | | | | Aortic Valve | | | | Peak Velocity: 169.31 cm/s Mean Gradient: 6.49 mmHg | | Peak Gradient: 11.47 mmHg | | | | Tricuspid Valve | | | | TR Velocity: 319.41 cm/s | | | | LVOT | | | | Peak Velocity: 82.73 cm/s | | | |Structures | | | | Left Atrium | | | | LA A/P Dimension: 6.25 cm LA Volume: 170.67 ml | | LA/Aorta:1.68 | | LA Vol/BSA Index: 71 mL/m^2 | | LA Major:0.3357 | | | | Left Ventricle | | | | Diastolic Dimension: 6.11 cm Systolic Dimension: 5.18 cm | | Septum Diastolic: 1.11 cm | | PW Diastolic: 1.28 cm | | EF [id number]% | | EF Calculated: 45% | | | | Miscellaneous | | | | Aorta | | | | Aortic Root: 3.73 cm | | Ascending Aorta: 3.48 cm | + + + +---------+ + + | Performing | Address | City/State/Zipcode | Phone Number | | Organization | | | | + +---------+ + + | [facility] | | | | + +---------+ + + POC Glucose (09/10/2018 6:44 AM PST) + +-------+ + + + | Component | Value | Ref Range | Performed | Pathologist | | | | | At | Signature | + +-------+ + + + | Glucose, | 98 | 70 - 109 mg/dL | [facility] [address] | [place] | [phone] | | [facility] | | [address] | | | - LABORATORY | | | | + + + + + Renal Function Panel (09/10/2018 3:16 AM PST) + + + + + + | Component | Value | Ref Range | Performed | Pathologist | | | | | At | Signature | + + + + + + | Na | 135 (L) | 136 - 149 | [facility] | | | | | mmol/L | [facility] | | | | | | [facility] | | | | | | [facility] - | | | | | | LABORATORY | | + + + + + + | K | 4.7 | 3.5 - 5.1 | [facility] | | | | | mmol/L | [facility] | | | | | | [facility] | | | | | | CENTER - | | | | | | LABORATORY | | + + + + + + | Cl | 100 | 98 - 109 mmol/L | [facility] | | | | | | [facility] | | | | | | [facility] | | | | | | CENTER - | | | | | | LABORATORY | | + + + + + + | CO2 | 25 | 24 - 31 mmol/L | [facility] | | | | | | [facility] | | | | | | [facility] | | | | | | CENTER - | | | | | | LABORATORY | | + + + + + + | Anion Gap | 10 | 3 - 16 mmol/L | [facility] | | | | | | [facility] | | | | | | [facility] | | | | | | CENTER - | | | | | | LABORATORY | | + + + + + + | Glucose | 151 (H) | 70 - 109 mg/dL | [facility] | | | | | | [facility] | | | | | | [facility] | | | | | | CENTER - | | | | | | LABORATORY | | + + + + + + | BUN | 38 (H) | 7 - 18 mg/dL | [facility] | | | | | | [facility] | | | | | [facility] | | | | | | C[facility] - | | | | | | LABORATORY | | + + + + + + | Creatinine | 7.28 (H) | 0.60 - 1.30 | [facility] | | | | | mg/dL | [facility] | | | | | | MEDICAL | | | | | | CENTER - | | | | | | LABORATORY | | + + + + + + | eGFR if not | 8 (L) | >=60 | [facility] | | | | | mL/min/1.73m2 | [facility] | | | [facility] | | [facility] | | | | | | CENTER - | | | | | | LABORATORY | | + + + + + + | Calcium | 7.6 (L) | 8.3 - 10.5 | [facility] | | | | | mg/dL | [facility] | | | | | | MEDICAL | | | | | | CENTER - | | | | | | LABORATORY | | + + + + + + | Albumin | 2.3 (L) | 3.2 - 5.0 g/dL | [facility] | | | | | | [facility] | | | | | | MED[facility] | | | | | | CENTER - | | | | | | LABORATORY | | + + + + + + | Phosphorus | 4.7 (H) | 2.5 - 4.6 mg/dL | [facility] | | | | | | [facility] | | | | | | [facility] | | | | | | CENTER - | | | | | | LABORATORY | | + + + + + + | BUN/Creatin | 5.2 | | [facility] | | | ine [...] + | [facility] | [address] | [place] | [phone] | | [facility] | | [address] | | | - LABORATORY | | | | + + + + + CBC with Differential (09/10/2018 3:16 AM PST) + + + + + + | Component | Value | Ref Range | Performed | Pathologist | | | | | At | Signature | + + + + + + | WBC | 7.6 | 4.0 - 11.0 K/uL | [facility] | | | | | | [facility] | | | | | | MEDICAL | | | | | | CENTER - | | | | | | LABORATORY | | + + + + + + | RBC | 2.71 (L) | 4.30 - 5.70 | [facility] | | | | | M/uL | [facility] | | | | | | MEDICAL | | | | | | CENTER - | | | | | | LABORATORY | | + + + + + + | Hemoglobin | 8.2 (L) | 13.5 - 18.0 | [facility] | | | | | g/dL | [facility] | | | | | | MEDICAL | | | | | | CENTER - | | | | | | LABORATORY | | + + + + + + | Hematocrit | 25.9 (L) | 40.0 - 51.0 % | [facility] | | | | | | [facility] | | | | | | [facility] | | | | | | CENTER - | | | | | | LABORATORY | | + + + + + + | MCV | 95.6 | 83.0 - 101.0 fL | [facility] | | | | | | [facility] | | | | | | [facility] | | | | | | CENTER - | | | | | | LABORATORY | | + + + + + + | MCH | 30.3 | 28.0 - 35.0 pg | [facility] | | | | | | [facility] | | | | | | [facility] | | | | | | CENTER - | | | | | | LABORATORY | | + + + + + + | MCHC | 31.7 (L) | 32.0 - 36.0 | [facility] | [...] + + + + | RDW-SD | 50.5 (H) | 35.1 - 46.3 fL | [facility] | | | | | | [facility] | | | | | | MEDICAL | | | | | | CENTER - | | | | | | LABORATORY | | + + + + + + | Platelet | 313 | 140 - 440 K/uL | [facility] | | | Count | | | [facility] | | | | | | MEDICAL | | | | | | CENTER - | | | | | | LABORATORY | | + + + + + + | MPV | 9.4 | 6.5 - 12.4 fL | [facility] | | | | | | [facility] | | | | | | MEDICAL | | | | | | CENTER - | | | | | | LABORATORY | | + + + + + + | % | 66.1 | 45.0 - 82.0 % | [facility] | | | Neutrophils | | | [facility] | | | | | | MEDICAL | | | | | | CENTER - | | | | | | LABORATORY | | + + + + + + | % | 14.7 (L) | 20.0 - 45.0 % | [facility] | | | Lymphocytes | | | [facility] | | | | | | MEDICAL | | | | | | CENTER - | | | | | | LABORATORY | | + + + + + + | % Monocytes | 10.3 | 4.0 - 12.0 % | [facility] | | | | | | [facility] | | | | | | MEDICAL | | | | | | CENTER - | | | | | | LABORATORY | | + + + + + + | % | 7.0 (H) | 0.0 - 5.0 % | [facility] | | | Eosinophils | | | [facility] | | | | | | MEDICAL | | | | | | CENTER - | | | | | | LABORATORY | | + + + + + + | % Basophils | 1.2 (H) | 0.0 - 1.0 % | [facility] | | | | | | [facility] | | | | | | MEDICAL | | | | | | CENTER - | | | | | | LABORATORY | | + + + + + + | % Immature | 0.7 (H)Comment: | 0.0 - 0.4 % | [facility] | | | Granulocyte | Preliminary studIes have | | [facility] | | | s | indicated the IG% | | MEDICAL | | | | and/or IG# show promise | | CENTER - | | | | as an early screen for | | LABORATORY | | | | infection. | | | | + + + + + + | Absolute | 5.00 | 1.80 - 8.50 | [facility] | | | Neutrophils | | K/uL | [facility] | | | | | | [facility] | | | | | | CENTER - | | | | | | LABORATORY | | + + + + + + | Absolute | 1.11 | 0.60 - 3.20 | [facility] | | | Lymphocytes | | K/uL | [facility] | | | | | | MEDICAL | | | | | | CENTER - | | | | | | LABORATORY | | + + + + + + | Absolute | 0.78 | 0.00 - 1.00 | [facility] | | | Monocytes | | K/uL | [facility] | | | | | | MEDICAL | | | | | | CENTER - | | | | | | LABORATORY | | + + + + + + | Absolute | 0.53 (H) | 0.00 - 0.40 | [facility] | | | Eosinophils | | K/uL | [facility] | | | | | | MEDICAL | | | | | | CENTER - | | | | | | LABORATORY | | + + + + + + | Absolute | 0.09 | 0.00 - 0.10 | [facility] | | | Basophils | | K/uL | [facility] | | | | | | MEDICAL | | | | | | CENTER - | | | | | | LABORATORY | | + + + + + + | Absolute | 0.05 (H) | 0.00 - 0.03 | [facility] | | | Immature | | K/uL | [facility] | | | Granulocyte | | | MEDICAL | | | s | | | CENTER - | | | | | | LABORATORY | | + + + + + + | % nRBC | 0 | 0 - 2 per 100 | [facility] | | | | | WBC's | [facility] | | | | | | MEDICAL | | | | | | CENTER - | | | | | | LABORATORY | | + + + + + + | Absolute | 0.00 | 0.00 - 0.01 | [facility] | | | nRBC | | K/uL | [facility] | [...] St | [place] | [phone] | | [facility] | | [address] | | | - LABORATORY | | | | + + + + + POC Glucose (09/09/2018 9:21 PM PST) + +---------+ + + + | Component | Value | Ref Range | Performed | Pathologist | | | | | At | Signature | + +---------+ + + + | Glucose, | 159 (H) | 70 - 109 mg/dL | [...] + | [facility] | [address] | [place] | [phone] | | [facility] | | [address] | | | - LABORATORY | | | | + + + + + Vancomycin Level (09/09/2018 8:07 PM PST) + +-------+ + + + | Component | Value | Ref Range | Performed | Pathologist | | | | | At | Signature | + +-------+ + + + | Date of | | | [facility] | | | Last Dose | | | [facility] | | | | | | MEDICAL | | | | | | CENTER - | | | | | | LABORATORY | | + +-------+ + + + | Time of | | | [facility] | | | Last Dose | | | [facility] | | | | | | [facility] | | | | | | CENTER - | | | | | | LABORATORY | | + +-------+ + + + | Vancomycin | 9.1 | <=20.0 ug/mL | [facility] | | | Random | | | [facility] | | [...] [address] | [place] | [phone] | | [facility] | | [address] | | | - LABORATORY | | | | + + + + + POC Glucose (09/09/2018 4:36 PM PST) + +---------+ + + + | Component | Value | Ref Range | Performed | Pathologist | | | | | At | Signature | + +---------+ + + + | Glucose, | 138 (H) | 70 - 109 mg/dL | [...] + | [facility] | [address] | [place] | [phone] | | [facility] | | [address] | | | - LABORATORY | | | | + + + + + POC Glucose (09/09/2018 12:27 PM PST) + +-------+ + + + | Component | Value | Ref Range | Performed | Pathologist | | | | | At | Signature | + +-------+ + + + | Glucose, | 97 | 70 - 109 mg/dL | [facility] [...] + + | [facility] | [address] | [place] | [phone] | | [facility] | | [address] | | | - LABORATORY | | | | + + + + + POC Glucose (09/09/2018 6:42 AM PST) + +-------+ + + + | Component | Value | Ref Range | Performed | Pathologist | | | | | At | Signature | + +-------+ + + + | Glucose, | 105 | 70 - 109 mg/dL | [facility] [...] [facility] | [address] | [place], [place] | [phone] | | [facility] | | [address] | | | - LABORATORY | | | | + + + + + CBC with Differential (09/09/2018 4:31 AM PST) + + + + + + | Component | Value | Ref Range | Performed | Pathologist | | | | | At | Signature | + + + + + + | WBC | 6.8 | 4.0 - 11.0 K/uL | [facility] | | | | | | [facility] | | | | | | MEDICAL | | | | | | CENTER - | | | | | | LABORATORY | | + + + + + + | RBC | 2.70 (L) | 4.30 - 5.70 | [facility] | | | | | M/uL | [facility] | | | | | | MEDICAL | | | | | | CENTER - | | | | | | LABORATORY | | + + + + + + | Hemoglobin | 8.1 (L) | 13.5 - 18.0 | [facility] | | | | | g/dL | [facility] | | | | | | MEDICAL | | | | | | CENTER - | | | | | | LABORATORY | | + + + + + + | Hematocrit | 25.8 (L) | 40.0 - 51.0 % | [facility] | | | | | | [facility] | | | | | | MEDICAL | | | | | | CENTER - | | | | | | LABORATORY | | + + + + + + | MCV | 95.6 | 83.0 - 101.0 fL | [facility] | | | | | | [facility] | | | | | | MEDICAL | | | | | | CENTER - | | | | | | LABORATORY | | + + + + + + | MCH | 30.0 | 28.0 - 35.0 pg | [facility] | | | | | | [facility] | | | | | | MEDICAL | | | | | | CENTER - | | | | | | LABORATORY | | + + + + + + | MCHC | 31.4 (L) | 32.0 - 36.0 | [facility] | [...] + + + + | RDW-SD | 51.0 (H) | 35.1 - 46.3 fL | [facility] | | | | | | [facility] | | | | | | MEDICAL | | | | | | CENTER - | | | | | | LABORATORY | | + + + + + + | Platelet | 285 | 140 - 440 K/uL | [facility] | | | Count | | | [facility] | | | | | | MEDICAL | | | | | | CENTER - | | | | | | LABORATORY | | + + + + + + | MPV | 9.5 | 6.5 - 12.4 fL | [facility] | | | | | | [facility] | | | | | | MEDICAL | | | | | | CENTER - | | | | | | LABORATORY | | + + + + + + | % | 58.2 | 45.0 - 82.0 % | [facility] | | | Neutrophils | | | [facility] | | | | | | MEDICAL | | | | | | CENTER - | | | | | | LABORATORY | | + + + + + + | % | 22.1 | 20.0 - 45.0 % | [facility] | | | Lymphocytes | | | [facility] | | | | | | MEDICAL | | | | | | CENTER - | | | | | | LABORATORY | | + + + + + + | % Monocytes | 9.1 | 4.0 - 12.0 % | [facility] | | | | | | [facility] | | | | | | MEDICAL | | | | | | CENTER - | | | | | | LABORATORY | | + + + + + + | % | 9.4 (H) | 0.0 - 5.0 % | [facility] | | | Eosinophils | | | [facility] | | | | | | MEDICAL | | | | | | CENTER - | | | | | | LABORATORY | | + + + + + + | % Basophils | 0.9 | 0.0 - 1.0 % | [facility] | | | | | | [facility] | | | | | | MEDICAL | | | | | | CENTER - | | | | | | LABORATORY | | + + + + + + | % Immature | 0.3 | 0.0 - 0.4 % | [facility] | | | Granulocyte | | | [facility] | | | s | | | MEDICAL | | | | | | CENTER - | | | | | | LABORATORY | | + + + + + + | Absolute | 3.96 | 1.80 - 8.50 | [facility] | | | Neutrophils | | K/uL | [facility] | | | | | | MEDICAL | | | | | | CENTER - | | | | | | LABORATORY | | + + + + + + | Absolute | 1.50 | 0.60 - 3.20 | [facility] | | | Lymphocytes | | K/uL | [facility] | | | | | | MEDICAL | | | | | | CENTER - | | | | | | LABORATORY | | + + + + + + | Absolute | 0.62 | 0.00 - 1.00 | [facility] | | | Monocytes | | K/uL | [facility] | | | | | | MEDICAL | | | | | | CENTER - | | | | | | LABORATORY | | + + + + + + | Absolute | 0.64 (H) | 0.00 - 0.40 | [facility] | | | Eosinophils | | K/uL | [facility] | | | | | | MEDICAL | | | | | | CENTER - | | | | | | LABORATORY | | + + + + + + | Absolute | 0.06 | 0.00 - 0.10 | [facility] | | | Basophils | | K/uL | [facility] | | | | | | MEDICAL | | | | | | CENTER - | | | | | | LABORATORY | | + + + + + + | Absolute | 0.02 | 0.00 - 0.03 | [facility] | | | Immature | | K/uL | [facility] | | | Granulocyte | | | MEDICAL | | | s | | | CENTER - | | | | | | LABORATORY | | + + + + + + | % nRBC | 0 | 0 - 2 per 100 | [facility] | | | | | WBC's | [facility] | | | | [...] St | [place] | [phone] | | [facility] | | [address] | | | - LABORATORY | | | | + + + + + Renal Function Panel (09/09/2018 4:30 AM PST) + + + + + + | Component | Value | Ref Range | Performed | Pathologist | | | | | At | Signature | + + + + + + | Na | 135 (L) | 136 - 149 | [facility] | | | | | mmol/L | [facility] | | | | | | MEDICAL | | | | | | CENTER - | | | | | | LABORATORY | | + + + + + + | K | 4.5 | 3.5 - 5.1 | [facility] | | | | | mmol/L | [facility] | | | | | | MEDICAL | | | | | | CENTER - | | | | | | LABORATORY | | + + + + + + | Cl | 97 (L) | 98 - 109 mmol/L | [facility] | | | | | | [facility] | | | | | | MEDICAL | | | | | | CENTER - | | | | | | LABORATORY | | + + + + + + | CO2 | 25 | 24 - 31 mmol/L | [facility] | | | | | | [facility] | | | | | | MEDICAL | | | | | | CENTER - | | | | | | LABORATORY | | + + + + + + | Anion Gap | 13 | 3 - 16 mmol/L | [facility] | | | | | | [facility] | | | | | | MEDICAL | | | | | | CENTER - | | | | | | LABORATORY | | + + + + + + | Glucose | 132 (H) | 70 - 109 mg/dL | [facility] | | | | | | [facility] | | | | | | MEDICAL | | | | | | CENTER - | | | | | | LABORATORY | | + + + + + + | BUN | 51 (H) | 7 - 18 mg/dL | [facility] | | | | | | [facility] | | | | | | MEDICAL | | | | | | CENTER - | | | | | | LABORATORY | | + + + + + + | Creatinine | 9.51 ()Comment: | 0.60 - 1.30 | [facility] | | | | Critical Result called | mg/dL | [facility] | | | | to and read back by | | MEDICAL | | | | Viki Blevins on | | CENTER - | | | | 09/09/2018 at 5:18 by | | LABORATORY | | | | Roderick Palmer | | | | + + + + + + | eGFR if not | 6 (L) | >=60 | [facility] | | | | | mL/min/1.73m2 | [facility] | | | [facility] | | | MEDICAL | | | | | | CENTER - | | | | | | LABORATORY | | + + + + + + | Calcium | 7.6 (L) | 8.3 - 10.5 | [facility] | | | | | mg/dL | [facility] | | | | | | [facility] | | | | | | CENTER - | | | | | | LABORATORY | | + + + + + + | Albumin | 2.3 (L) | 3.2 - 5.0 g/dL | [facility] | | | | | | [facility] | | | | | | MEDICAL | | | | | | CENTER - | | | | | | LABORATORY | | + + + + + + | Phosphorus | 5.2 (H) | 2.5 - 4.6 mg/dL | [facility] | | | | | | [facility] | | | | | | MEDICAL | | | | | | CENTER - | | | | | | LABORATORY | | + + + + + + | BUN/Creatin | 5.4 | | [facility] | | | ine Ratio | | | [facility] | | [...] [address] | [place] | [phone] | | [facility] | | [address] | | | - LABORATORY | | | | + + + + + POC Glucose (09/08/2018 9:08 PM PST) + +---------+ + + + [...] + | [facility] | [address] | [place] | [phone] | | [facility] | | [address] | | | - LABORATORY | | | | + + + + + POC Glucose (09/08/2018 4:50 PM PST) + +---------+ + + + | Component | Value | Ref Range | Performed | Pathologist | | | | | At | Signature | + +---------+ + + + | Glucose, | 124 (H) | 70 - 109 mg/dL | [...] [address] | [place] | [phone] | | [facility] | | [address] | | | - LABORATORY | | | | + + + + + XR Chest AP Portable (09/08/2018 2:58 PM PST) + + | Specimen | + + | | + + + + + | Narrative | Performed At | + + + | XR CHEST AP PORTABLE 09/08/2018 2:50 PM HISTORY: Confirm PICC | [facility] | | placement position. COMPARISON: Multiple priors. Findings: A | | | right PICC line is observed with tip at the cavoatrial junction. The | | | heart is significantly enlarged. Aorta is normal. Mediastinum | | | demonstrates no acute findings. Pulmonary vasculature is prominent | | | with cephalization. There is mild diffuse pulmonary edema. No pleural | | | effusion or pneumothorax is seen. Mild elevation of the right | | | hemidiaphragm is present. There are no acute osseous abnormalities. | | | IMPRESSION - Right PICC line with tip at cavoatrial junction. | | | Findings consistent with fluid overload or CHF. These findings | | | were conveyed to the infusion services. Dictated and Signed by: | | | Donovan Gayle MD Electronically signed: 09/08/2018 3:01 PM | | + + + + + | Procedure Note | + + | Kana, Rad Results In - 09/08/2018 3:04 PM PST XR CHEST AP PORTABLE 09/08/2018 2:50 PM | | | | HISTORY: Confirm PICC placement position. | | | | COMPARISON: Multiple priors. | | | | Findings: | | A right PICC line is observed with tip at the cavoatrial junction. The heart is | | significantly enlarged. Aorta is normal. Mediastinum demonstrates no acute | | findings. Pulmonary vasculature is prominent with cephalization. There is mild | | diffuse pulmonary edema. No pleural effusion or pneumothorax is seen. Mild | | elevation of the right hemidiaphragm is present. There are no acute osseous | | abnormalities. | | | | IMPRESSION - | | Right PICC line with tip at cavoatrial junction. | | | | Findings consistent with fluid overload or CHF. | | | | These findings were conveyed to the infusion services. | | | | Dictated and Signed by: Donovan Gayle MD | | Electronically signed: 09/08/2018 3:01 PM | + + + +---------+ + + | Performing | Address | City/State/Zipcode | Phone Number | | Organization | | | | + +---------+ + + | [facility] | | | | + +---------+ + + ECG 12 lead (09/08/2018 1:30 PM PST) + + + + + + | Component | Value | Ref Range | Performed | Pathologist | | | | | At | Signature | + + + + + + | VENTRICULAR | 114 | BPM | [facility] | | | RATE EKG | | | | | + + + + + + | ATRIAL RATE | 271 | BPM | [facility] | | + + + + + + | QRS | 90 | ms | [facility] | | | DURATION | | | | | + + + + + + | Q-T | 316 | ms | [facility] | | | INTERVAL | | | | | + + + + + + | Q-T | 435 | ms | [facility] | | | INTERVAL | | | | | | (CORRECTED) | | | | | + + + + + + | P WAVE AXIS | 90 | degrees | [facility] | | + + + + + + | QRS AXIS | 36 | degrees | [facility] | | + + + + + + | T AXIS | 85 | degrees | [facility] | | + + + + + + | INTERPRETAT | Atrial flutter with | | [facility] | | | ION TEXT | variable AV | | | | | | blockNonspecific T wave | | | | | | abnormalityAbnormal | | | | | | ECGNo previous ECGs | | | | | | availableConfirmed by | | | | | | ELEANOR JEONG MD ([id number]) | | | | | | on 09/09/2018 7:18:50 AM | | | | + + [...] | + +---------+ + + POC Glucose (09/08/2018 11:58 AM PST) + +---------+ + + + | Component | Value | Ref Range | Performed | Pathologist | | | | | At | Signature | + +---------+ + + + | Glucose, | 150 (H) | 70 - 109 mg/dL | [...] [address] | [place] | [phone] | | [facility] | | [address] | | | - LABORATORY | | | | + + + + + TSH (09/08/2018 11:12 AM PST) + + + + + + | Component | Value | Ref Range | Performed | Pathologist | | | | | At | Signature | + + + + + + | TSH | 4.01Comment: This is a | 0.45 - 5.33 | [facility] | | | | third generation TSH | uIU/mL | [facility] | | | | test. | | MEDICAL | | | | [...] St | [place] | [phone] | | [facility] | | [address] | | | - LABORATORY | | | | + + + + + Extra Green Top Tube (09/08/2018 11:12 AM PST) + +-------+ + + + | Component | Value | Ref Range | Performed | Pathologist | | | | | At | Signature | + +-------+ + + + | Extra Green | Done | | [facility] | | | Top Tube | | | [facility] | | [...] St | [place] | [phone] | | [facility] | | [address] | | | - LABORATORY | | | | + + + + + CBC no Differential (09/08/2018 11:12 AM PST) + + + + + + | Component | Value | Ref Range | Performed | Pathologist | | | | | At | Signature | + + + + + + | WBC | 7.6 | 4.0 - 11.0 K/uL | [facility] | | | [facility] | [facility] | | | | | | [facility] - | | | | | | LABORATORY | | + + + + + + | RBC | 2.68 (L) | 4.30 - 5.70 | [facility] | | | | | M/uL | [facility] | | [facility] | [facility] | | | | | | CENTER - | | | | | | LABORATORY | | + + + + + + | Hemoglobin | 8.1 (L) | 13.5 - 18.0 | [facility] | | | | | g/dL | [facility] | | | [facility] | | [facility] | | | | | | CENTER - | | | | | | LABORATORY | | + + + + + + | Hematocrit | 25.6 (L) | 40.0 - 51.0 % | [...] + + + + | MCH | 30.2 | 28.0 - 35.0 pg | [facility] | | | | | | [facility] | [facility] | | | | | | CENTER - | | | | | | LABORATORY | | + + + + + + | MCHC | 31.6 (L) | 32.0 - 36.0 | [facility] | [...] + + + + | RDW-SD | 50.9 (H) | 35.1 - 46.3 fL | [facility] | | | | | | [facility] | | [facility] | [facility] | | | | | | CENTER - | | | | | | LABORATORY | | + + + + + + | Platelet | 263 | 140 - 440 K/uL | [facility] | | | Count | | | [facility] | [facility] | [facility] | | | | | | CENTER - | | | | | | LABORATORY | | + + + + + + | MPV | 9.2 | 6.5 - 12.4 fL | [facility] | | | | | | [facility] | | [facility] | [facility] | | | | | | CENTER - | | | | | | LABORATORY | | + + + + + + | % nRBC | 0 | 0 - 2 per 100 | [facility] | | | | | WBC's | [facility] | | | | [...] St | [place] | [phone] | | [facility] | | [address] | | | - LABORATORY | | | | + + + + + Type and Screen (09/08/2018 11:12 AM PST) + + + + + + | Component | Value | Ref Range | Performed | Pathologist | | | | | At | Signature | + + + + + + | ABO | A | | [facility] | | | | | [facility] | | [facility] | [facility] | | | | | | CENTER - | | | | | | BLOOD BANK | | + + + + + + | Rh Type | Positive | | [facility] | | | | | | [facility] | | | | | | [facility] | | | | | | CENTER - | | | | | | BLOOD BANK | | + + + + + + | Antibody | Negative | | [facility] | | | Screen | | | [facility] | | | | | | [facility] | | | | | | CENTER - | | | | | | BLOOD BANK | | + + + + + + + + | Specimen | + + | Blood | + + + + + + + | Performing | Address | City/State/Zipcode | Phone Number | | Organization | | | | + + + + + | [facility] | [address] | [place] | | | [facility] | | [address] | | | - BLOOD BANK | | | | + + + + + POC Glucose (09/08/2018 6:27 AM PST) + +---------+ + + + | Component | Value | Ref Range | Performed | Pathologist | | | | | At | Signature | + +---------+ + + + | Glucose, | 133 (H) | 70 - 109 mg/dL | [...] St | [place] | [phone] | | [facility] | | [address] | | | - LABORATORY | | | | + + + + + Renal Function Panel (09/08/2018 4:50 AM PST) + + + + + + | Component | Value | Ref Range | Performed | Pathologist | | | | | At | Signature | + + + + + + | Na | 134 (L) | 136 - 149 | [facility] | | | | | mmol/L | [facility] | | | | | | MEDICAL | | | | | | CENTER - | | | | | | LABORATORY | | + + + + + + | K | 4.3 | 3.5 - 5.1 | [facility] | | | | | mmol/L | [facility] | | | | | | MEDICAL | | | | | | CENTER - | | | | | | LABORATORY | | + + + + + + | Cl | 98 | 98 - 109 mmol/L | [facility] | | | | | | [facility] | | | | | | [facility] | | | | | | CENTER - | | | | | | LABORATORY | | + + + + + + | CO2 | 24 | 24 - 31 mmol/L | [facility] | | [...] + + + + | Glucose | 140 (H) | 70 - 109 mg/dL | [facility] | | | | | | [facility] | | | | | [facility] | | | | | | CENTER - | | | | | | LABORATORY | | + + + + + + | BUN | 42 (H) | 7 - 18 mg/dL | [facility] | | | | | | [facility] | | | | | | [facility] | | | | | | CENTER - | | | | | | LABORATORY | | + + + + + + | Creatinine | 7.56 (HH)Comment: | 0.60 - 1.30 | [facility] | | | | Critical Result called | mg/dL | [facility] | | | | to and read back by Deb | | MEDICAL | | | | Fredi on 09/08/2018 at | | CENTER - | | | | 6:05 by Roderick Doyle. | | LABORATORY | | | | | | | | + + + + + + | eGFR if not | 7 (L) | >=60 | [facility] | | | | | mL/min/1.73m2 | [facility] | | | [facility] | | | [facility] | | | | | | CENTER - | | | | | | LABORATORY | | + + + + + + | Calcium | 7.8 (L) | 8.3 - 10.5 | [facility] | | | | | mg/dL | [facility] | | | | | | MEDICAL | | | | | | CENTER - | | | | | | LABORATORY | | + + + + + + | Albumin | 2.4 (L) | 3.2 - 5.0 g/dL | [facility] | | | | | | [facility] | | | [facility] | | [facility] | | | | | | CENTER - | | | | | | LABORATORY | | + + + + + + | Phosphorus | 4.3 | 2.5 - 4.6 mg/dL | [facility] | | | | [...] ST. | [address] | [place] | [phone] | | [facility] | | [address] | | | - LABORATORY | | | | + + + + + CBC with Differential (09/08/2018 4:50 AM PST) + + + + + + | Component | Value | Ref Range | Performed | Pathologist | | | | | At | Signature | + + + + + + | WBC | 7.2 | 4.0 - 11.0 K/uL | [facility] | | | | | | [facility] | | | | | | [facility] | | | | | | CENTER - | | | | | | LABORATORY | | + + + + + + | RBC | 2.68 (L) | 4.30 - 5.70 | [facility] | | | | | M/uL | [facility] | | | | | [facility] | | | | | | CENTER - | | | | | | LABORATORY | | + + + + + + | Hemoglobin | 7.9 (L) | 13.5 - 18.0 | [facility] | | | | | g/dL | [facility] | | | | | | MEDICAL | | | | | | CENTER - | | | | | | LABORATORY | | + + + + + + | Hematocrit | 25.5 (L) | 40.0 - 51.0 % | [facility] | | | | | | [facility] | | | | | | MEDICAL | | | | | | CENTER - | | | | | | LABORATORY | | + + + + + + | MCV | 95.1 | 83.0 - 101.0 fL | [facility] | | | | | | [facility] | | | | | | MEDICAL | | | | | | CENTER - | | | | | | LABORATORY | | + + + + + + | MCH | 29.5 | 28.0 - 35.0 pg | [facility] | | | | | | [facility] | | | | | | MEDICAL | | | | | | CENTER - | | | | | | LABORATORY | | + + + + + + | MCHC | 31.0 (L) | 32.0 - 36.0 | [facility] | | | | | g/dL | [facility] | | | | | | MEDICAL | | | | | | CENTER - | | | | | | LABORATORY | | + + + + + + | RDW-CV | 14.5 | <15.0 % | [facility] | | | | | | [facility] | | | [facility] | | MEDICAL | | | | | | CENTER - | | | | | | LABORATORY | | + + + + + + | RDW-SD | 50.4 (H) | 35.1 - 46.3 fL | [facility] | | | | | [facility] | | | [facility] | | [facility] | | | | | | CENTER - | | | | | | LABORATORY | | + + + + + + | Platelet | 268 | 140 - 440 K/uL | [facility] [...] + + + + | % | 63.2 | 45.0 - 82.0 % | [facility] | | | Neutrophils | | | [facility] | | | | | | MEDICAL | | | | | | CENTER - | | | | | | LABORATORY | | + + + + + + | % | 18.3 (L) | 20.0 - 45.0 % | [facility] | | | Lymphocytes | | | [facility] | | | | | | MEDICAL | | | | | | CENTER - | | | | | | LABORATORY | | + + + + + + | % Monocytes | 8.7 | 4.0 - 12.0 % | [facility] | | | | | | [facility] | | | | | | MEDICAL | | | | | | CENTER - | | | | | | LABORATORY | | + + + + + + | % | 8.2 (H) | 0.0 - 5.0 % | [facility] | | | Eosinophils | | | [facility] | | | | | | MEDICAL | | | | | | CENTER - | | | | | | LABORATORY | | + + + + + + | % Basophils | 1.0 | 0.0 - 1.0 % | [facility] | | | | | | [facility] | | | | | | MEDICAL | | | | | | CENTER - | | | | | | LABORATORY | | + + + + + + | % Immature | 0.6 (H)Comment: | 0.0 - 0.4 % | [facility] | | | Granulocyte | Preliminary studIes have | | [facility] | | | s | indicated the IG% | | MEDICAL | | | | and/or IG# show promise | | CENTER - | | | | as an early screen for | | LABORATORY | | | | infection. | | | | + + + + + + | Absolute | 4.57 | 1.80 - 8.50 | [facility] | | | Neutrophils | | K/uL | [facility] | | | | | | MEDICAL | | | | | | CENTER - | | | | | | LABORATORY | | + + + + + + | Absolute | 1.32 | 0.60 - 3.20 | [facility] | | | Lymphocytes | | K/uL | [facility] | | | | | | MEDICAL | | | | | | CENTER - | | | | | | LABORATORY | | + + + + + + | Absolute | 0.63 | 0.00 - 1.00 | [facility] | | | Monocytes | | K/uL | [facility] | | | | | | MEDICAL | | | | | | CENTER - | | | | | | LABORATORY | | + + + + + + | Absolute | 0.59 (H) | 0.00 - 0.40 | [facility] | | | Eosinophils | | K/uL | [facility] | | | | | | MEDICAL | | | | | | CENTER - | | | | | | LABORATORY | | + + + + + + | Absolute | 0.07 | 0.00 - 0.10 | [facility] | | | Basophils | | K/uL | [facility] | | | | | | MEDICAL | | | | | | CENTER - | | | | | | LABORATORY | | + + + + + + | Absolute | 0.04 (H) | 0.00 - 0.03 | [facility] | | | Immature | | K/uL | [facility] | | | Granulocyte | | | MEDICAL | | | s | | | CENTER - | | | | | | LABORATORY | | + + + + + + | % nRBC | 0 | 0 - 2 per 100 | [facility] | | | | | WBC's | [facility] | | | | | | MEDICAL | | | | | | CENTER - | | | | | | LABORATORY | | + + + + + + | Absolute | 0.00 | 0.00 - 0.01 | [facility] | | | nRBC | | K/uL | [facility] | [...] St | [place] | [phone] | | [facility] | | [address] | | | - LABORATORY | | | | + + + + + POC Glucose (09/07/2018 8:37 PM PST) + +---------+ + + + | Component | Value | Ref Range | Performed | Pathologist | | | | | At | Signature | + +---------+ + + + | Glucose, | 158 (H) | 70 - 109 mg/dL | [facility] | | | POC | | | [facility] | | | | | | MEDICAL [...] + | [facility] | [address] | [place] | [phone] | | [facility] | | [address] | | | - LABORATORY | | | | + + + + + POC Glucose (09/07/2018 4:51 PM PST) + +-------+ + + + | Component | Value | Ref Range | Performed | Pathologist | | | | | At | Signature | + +-------+ + + + | Glucose, | 98 | 70 - 109 mg/dL | [facility] [...] [address] | [place] | [phone] | | [facility] | | [address] | | | - LABORATORY | | | | + + + + + POC Glucose (09/07/2018 12:34 PM PST) + +-------+ + + + | Component | Value | Ref Range | Performed | Pathologist | | | | | At | Signature | + +-------+ + + + | Glucose, | 81 | 70 - 109 mg/dL | [facility] [...] St | [place] | [phone] | | [facility] | | [address] | | | - LABORATORY | | | | + + + + + Culture, Anaerobic (09/07/2018 11:24 AM PST) + + + + + + | Component | Value | Ref Range | Performed | Pathologist | | | | | At | Signature | + + + + + + | Culture | No anaerobes isolated. | | [facility] | | | | | | [facility] | | | | | | MEDICAL | | | | | | CENTER - | | | | | | LABORATORY | | + + + + + + + + | Specimen | + + | Tissue - Entire | | dorsal digital | | nerves of lateral | | hallux and medial | | second toe (body | | structure) | + + + + + + + | Performing | Address | City/State/Zipcode | Phone Number | | Organization | | | | + + + + + | [facility] | [address] | [place] | [phone] | | [facility] | | [address] | | | - LABORATORY | | | | + + + + + Culture, Wound, Smear (09/07/2018 11:24 AM PST) + + + + + + | Component | Value | Ref Range | Performed | Pathologist | | | | | At | Signature | + + + + + + | Culture | 3+ Staphylococcus | | [facility] | | | | aureus,Methicillin | | [facility] | | | | resistant (MRSA)Comment: | | MEDICAL | | | | *INFECTION PREVENTION | | CENTER - | | | | ALERT - MRSA* CONTACT | | LABORATORY | | | | PRECAUTIONS REQUIRED. | | | | + + + + + + | Gram Stain | 1+ White Blood Cells | | [facility] | | | Result | | | [facility] | | | | | | MEDICAL | | | | | | CENTER - | | | | | | LABORATORY | | + + + + + + | Gram Stain | No organisms seen | | [facility] | | | Result | | | [facility] | | | | | | MEDICAL | | | | | | CENTER - | | | | | | LABORATORY | | + + + + + + + + | Specimen | + + | Tissue - Entire | | dorsal digital | | nerves of lateral | | hallux and medial | | second toe (body | | structure) | + + + + +--------+ + | Organism | Antibiotic | Method | Susceptibility | + + +--------+ + | Staphylococcus | Ciprofloxacin | | >=8 ug/mL: | | aureus,Methicillin | | | Resistant | | resistant (MRSA) | | | | + + +--------+ + | Staphylococcus | Clindamycin | | 0.25 ug/mL: | | aureus,Methicillin | | | Sensitive | | resistant (MRSA) | | | | + + +--------+ + | Staphylococcus | Levofloxacin | | 4 ug/mL: Resistant | | aureus,Methicillin | | | | | resistant (MRSA) | | | | + + +--------+ + | Staphylococcus | Linezolid | | 2 ug/mL: Sensitive | | aureus,Methicillin | | | | | resistant (MRSA) | | | | + + +--------+ + | Staphylococcus | Oxacillin | | >=4 ug/mL: | | aureus,Methicillin | | | Resistant | | resistant (MRSA) | | | | + + +--------+ + | Staphylococcus | Penicillin G | | >=0.5 ug/mL: | | aureus,Methicillin | | | Resistant | | resistant (MRSA) | | | | + + +--------+ + | Staphylococcus | Rifampin | | <=0.5 ug/mL: | | aureus,Methicillin | | | Sensitive | | resistant (MRSA) | | | | + + +--------+ + +---+ + | | Comment: Rifampin | | | should not be used | | | alone for | | | chemotherapy. | +---+ + + + +---+ + | Staphylococcus | Tetracycline | | <=1 ug/mL: | | aureus,Methicillin | | | Sensitive | | resistant (MRSA) | | | | + + +---+ + | Staphylococcus | Trimethoprim + | | <=10 ug/mL: | | aureus,Methicillin | Sulfamethoxazole | | Sensitive | | resistant (MRSA) | | | | + + +---+ + | Staphylococcus | Vancomycin | | <=0.5 ug/mL: | | aureus,Methicillin | | | Sensitive | | resistant (MRSA) | | | | + + +---+ + + + + + + | Performing | Address | City/State/Zipcode | Phone Number | | Organization | | | | + + + + + | [facility] | [address] | [place] | [phone] | | [facility] | | [address] | | | - LABORATORY | | | | + + + + + POC Glucose (09/07/2018 11:08 AM PST) + +--------+ + + + | Component | Value | Ref Range | Performed | Pathologist | | | | | At | Signature | + +--------+ + + + | Glucose, | 61 (L) | 70 - 109 mg/dL | [facility] | | | POC | | | [facility] | | | | | | MEDICAL | | | | | | CENTER - | | | | | | LABORATORY | | + +--------+ + + + + + | Specimen | + + | Blood | + + + + + + + | Performing | Address | City/State/Zipcode | Phone Number | | Organization | | | | + + + + + | [facility] | [address] | [place] | [phone] | | [facility] | | [address] | | | - LABORATORY | | | | + + + + + Culture, Anaerobic (09/07/2018 9:20 AM PST) + + + + + + | Component | Value | Ref Range | Performed | Pathologist | | | | | At | Signature | + + + + + + | Culture | No anaerobes isolated. | | [facility] | | | | | | [facility] | | | | | | MEDICAL | | | | | | CENTER - | | | | | | LABORATORY | | + + + + + + + + | Specimen | + + | Tissue - Tissue | | specimen (specimen) | + + + + + + + | Performing | Address | City/State/Zipcode | Phone Number | | Organization | | | | + + + + + | [facility] | [address] | [place] | [phone] | | [facility] | | [address] | | | - LABORATORY | | | | + + + + + Culture, Wound, Smear (09/07/2018 9:20 AM PST) + + + + + + | Component | Value | Ref Range | Performed | Pathologist | | | | | At | Signature | + + + + + + | Culture | 1+ Staphylococcus | | [facility] | | | | aureus,Methicillin | | [facility] | | | | resistant (MRSA)Comment: | | MEDICAL | | | | *INFECTION PREVENTION | | CENTER - | | | | ALERT - MRSA* CONTACT | | LABORATORY | | | | PRECAUTIONS REQUIRED. | | | | + + + + + + | Gram Stain | 3+ White Blood Cells | | [facility] | | | Result | | | [facility] | | | | | | MEDICAL | | | | | | CENTER - | | | | | | LABORATORY | | + + + + + + | Gram Stain | No organisms seen | | [facility] | | | Result | | | [facility] | | | | | | MEDICAL | | | | | | CENTER - | | | | | | LABORATORY | | + + + + + + + + | Specimen | + + | Tissue - Tissue | | specimen (specimen) | + + + + +--------+ + | Organism | Antibiotic | Method | Susceptibility | + + +--------+ + | Staphylococcus | Ciprofloxacin | | >=8 ug/mL: | | aureus,Methicillin | | | Resistant | | resistant (MRSA) | | | | + + +--------+ + | Staphylococcus | Clindamycin | | 0.25 ug/mL: | | aureus,Methicillin | | | Sensitive | | resistant (MRSA) | | | | + + +--------+ + | Staphylococcus | Levofloxacin | | 4 ug/mL: Resistant | | aureus,Methicillin | | | | | resistant (MRSA) | | | | + + +--------+ + | Staphylococcus | Linezolid | | 2 ug/mL: Sensitive | | aureus,Methicillin | | | | | resistant (MRSA) | | | | + + +--------+ + | Staphylococcus | Oxacillin | | >=4 ug/mL: | | aureus,Methicillin | | | Resistant | | resistant (MRSA) | | | | + + +--------+ + | Staphylococcus | Penicillin G | | >=0.5 ug/mL: | | aureus,Methicillin | | | Resistant | | resistant (MRSA) | | | | + + +--------+ + | Staphylococcus | Rifampin | | <=0.5 ug/mL: | | aureus,Methicillin | | | Sensitive | | resistant (MRSA) | | | | + + +--------+ + +---+ + | | Comment: Rifampin | | | should not be used | | | alone for | | | chemotherapy. | +---+ + + + +---+ + | Staphylococcus | Tetracycline | | <=1 ug/mL: | | aureus,Methicillin | | | Sensitive | | resistant (MRSA) | | | | + + +---+ + | Staphylococcus | Trimethoprim + | | <=10 ug/mL: | | aureus,Methicillin | Sulfamethoxazole | | Sensitive | | resistant (MRSA) | | | | + + +---+ + | Staphylococcus | Vancomycin | | <=0.5 ug/mL: | | aureus,Methicillin | | | Sensitive | | resistant (MRSA) | | | | + + +---+ + + + + + + | Performing | Address | City/State/Zipcode | Phone Number | | Organization | | | | + + + + + | [facility] | [address] | [place] | [phone] | | [facility] | | [address] | | | - LABORATORY | | | | + + + + + POC Glucose (09/07/2018 6:21 AM PST) + +-------+ + + + | Component | Value | Ref Range | Performed | Pathologist | | | | | At | Signature | + +-------+ + + + | Glucose, | 91 | 70 - 109 mg/dL | [facility] | [place] | [phone] | | [facility] | | [address] | | | - LABORATORY | | | | + + + + + Culture, Blood (09/07/2018 5:19 AM PST) + + + + + + | Component | Value | Ref Range | Performed | Pathologist | | | | | At | Signature | + + + + + + | Culture | No growth after 5 days | | [facility] | | | | incubation. | | [facility] | | | [...] + | [facility] | [address] | [place], [place] | [phone] | | [facility] | | [address] | | | - LABORATORY | | | | + + + + + Ferritin (09/07/2018 5:15 AM PST) + +---------+ + + + | Component | Value | Ref Range | Performed | Pathologist | | | | | At | Signature | + +---------+ + + + | FERRITIN | 738 (H) | 24 - 366 ng/mL | [facility] | | | | | [...] [facility] | [address] | [place], [place] | [phone] | | [facility] | | [address] | | | - LABORATORY | | | | + + + + + Iron and Transferrin (09/07/2018 5:15 AM PST) + + + + + + | Component | Value | Ref Range | Performed | Pathologist | | | | | At | Signature | + + + + + + | Iron | 20 (L) | 50 - 160 ug/dL | [facility] | | | | | | [facility] | | | | | | MEDICAL | | | | | | CENTER - | | | | | | LABORATORY | | + + + + + + | TRANSFERRIN | 98.6 (L) | 240.0 - 480.0 | [facility] | | | | | mg/dL | [facility] | | | | | | MEDICAL | | | | | | CENTER - | | | | | | LABORATORY | | + + + + + + | TIBC | 138 (L) | 235 - 425 ug/dL | [facility] | | | | | | [facility] | | | | | | MEDICAL | | | | | | CENTER - | | | | | | LABORATORY | | + + + + + + | % | 14.5 (L) | 20.0 - 55.0 % | [facility] | | | SATURATION | | | [facility] | | [...] [facility]. | [address] | [place] | [phone] | | [facility] | | [address] | | | - LABORATORY | | | | + + + + + Culture, Blood (09/07/2018 5:15 AM PST) + + + + + + | Component | Value | Ref Range | Performed | Pathologist | | | | | At | Signature | + + + + + + | Culture | No growth after 5 days | | [facility] | | | | incubation. | | [facility] | | | [...] St | [place] | [phone] | | [facility] | | [address] | | | - LABORATORY | | | | + + + + + Renal Function Panel (09/07/2018 5:15 AM PST) + + + + + + | Component | Value | Ref Range | Performed | Pathologist | | | | | At | Signature | + + + + + + | Na | 134 (L) | 136 - 149 | [facility] | | | | | mmol/L | [facility] | | | | | | MEDICAL | | | | | | CENTER - | | | | | | LABORATORY | | + + + + + + | K | 3.9 | 3.5 - 5.1 | [facility] | | | | | mmol/L | [facility] | | | | | | MEDICAL | | | | | | CENTER - | | | | | | LABORATORY | | + + + + + + | Cl | 97 (L) | 98 - 109 mmol/L | [facility] | | | | | | [facility] | | | | | | MEDICAL | | | | | | CENTER - | | | | | | LABORATORY | | + + + + + + | CO2 | 26 | 24 - 31 mmol/L | [facility] | | [...] + + + + | Glucose | 90 | 70 - 109 mg/dL | [facility] | | | | | | [facility] | | | | | | MEDICAL | | | | | | CENTER - | | | | | | LABORATORY | | + + + + + + | BUN | 33 (H) | 7 - 18 mg/dL | [facility] | | | | | | [facility] | | | | | | MEDICAL | | | | | | CENTER - | | | | | | LABORATORY | | + + + + + + | Creatinine | 5.89 (H) | 0.60 - 1.30 | [facility] | | | | | mg/dL | [facility] | | | | | | MEDICAL | | | | | | CENTER - | | | | | | LABORATORY | | + + + + + + | eGFR if not | 10 (L) | >=60 | [facility] | | | | | mL/min/1.73m2 | [facility] | | | [facility] | | | MEDICAL | | | | | | CENTER - | | | | | | LABORATORY | | + + + + + + | Calcium | 8.1 (L) | 8.3 - 10.5 | [facility] | | | | | mg/dL | [facility] | | | | | | MEDICAL | | | | | | CENTER - | | | | | | LABORATORY | | + + + + + + | Albumin | 2.5 (L) | 3.2 - 5.0 g/dL | [facility] | | | | | | [facility] | | | | | | MEDICAL | | | | | | CENTER - | | | | | | LABORATORY | | + + + + + + | Phosphorus | 3.7 | 2.5 - 4.6 mg/dL | [facility] | | | | [...] ST. | [address] | [place], [place] | [phone] | | [facility] | | [id number] | | | - LABORATORY | | | | + + + + + CBC with Differential (09/07/2018 5:15 AM PST) + + + + + + | Component | Value | Ref Range | Performed | Pathologist | | | | | At | Signature | + + + + + + | WBC | 6.9 | 4.0 - 11.0 K/uL | [facility] | | | | | | [facility] | | | | | | [facility] | | | | | | [facility] - | | | | | | LABORATORY | | + + + + + + | RBC | 3.09 (L) | 4.30 - 5.70 | [facility] | | | | | M/uL | [facility] | | | | | | [facility] | | | | | | [facility] - | | | | | | LABORATORY | | + + + + + + | Hemoglobin | 9.4 (L) | 13.5 - 18.0 | [facility] | | | | | g/dL | [facility] | | | | | | [facility] | | | | | | [facility] - | | | | | | LABORATORY | | + + + + + + | Hematocrit | 29.1 (L) | 40.0 - 51.0 % | [facility] | | | | | | [facility] | | | | | | [facility] | | | | | | [facility] - | | | | | | LABORATORY | | + + + + + + | MCV | 94.2 | 83.0 - 101.0 fL | [facility] | | | | | | [facility] | | | | | | [facility] | | | | | | [facility] - | | | | | | LABORATORY | | + + + + + + | MCH | 30.4 | 28.0 - 35.0 pg | [facility] | | | | | | [facility] | | | | | | [facility] | | | | | | [facility] - | | | | | | LABORATORY | | + + + + + + | MCHC | 32.3 | 32.0 - 36.0 | [facility] | | | | | g/dL | [facility] | | | | | | [facility] | | | | | | [facility] - | | | | | | LABORATORY | | + + + + + + | RDW-CV | 14.2 | <15.0 % | [facility] | | | | | | [facility] | | | | | | [facility] | | | | | | [facility] - | | | | | | LABORATORY | | + + + + + + | RDW-SD | 48.5 (H) | 35.1 - 46.3 fL | [facility] | | | | | [facility] | | | [facility] | | [facility] | | | | | | [facility] - | | | | | | LABORATORY | | + + + + + + | Platelet | 277 | 140 - 440 K/uL | [facility] [...] + + + + | % | 64.7 | 45.0 - 82.0 % | [facility] | | | Neutrophils | | | [facility] | | | | | | [facility] | | | | | | CENTER - | | | | | | LABORATORY | | + + + + + + | % | 16.0 (L) | 20.0 - 45.0 % | [facility] | | | Lymphocytes | | | [facility] | | | | | | [facility] | | | | | | CENTER - | | | | | | LABORATORY | | + + + + + + | % Monocytes | 9.2 | 4.0 - 12.0 % | [facility] | | | | | | [facility] | | | | | | [facility] | | | | | | [facility] - | | | | | | LABORATORY | | + + + + + + | % | 9.1 (H) | 0.0 - 5.0 % | [facility] [...] + + + | % Immature | 0.3 | 0.0 - 0.4 % | [facility] | | | Granulocyte | | | [facility] | | | s | | | [facility]ICAL | | | | | | CENTER - | | | | | | LABORATORY | | + + + + + + | Absolute | 4.47 | 1.80 - 8.50 | [facility] | | | Neutrophils | | K/uL | [facility] | | | | | | [facility] | | | | | | [facility] - | | | | | | LABORATORY | | + + + + + + | Absolute | 1.11 | 0.60 - 3.20 | [facility] | | | Lymphocytes | | K/uL | [facility] | | | | | | [facility] | | | | | | CENTER - | | | | | | LABORATORY | | + + + + + + | Absolute | 0.64 | 0.00 - 1.00 | [facility] | | | Monocytes | | K/uL | [facility] | | | | | | [facility] | | | | | | CENTER - | | | | | | LABORATORY | | + + + + + + | Absolute | 0.63 (H) | 0.00 - 0.40 | [facility] | | | Eosinophils | | K/uL | [facility] | | | | | | [facility] | | | | | | CENTER - | | | | | | LABORATORY | | + + + + + + | Absolute | 0.05 | 0.00 - 0.10 | [facility] | [...] | [facility] | | | | | WBC's | [facility] | | | | [...] St | [place] | [phone] | | [facility] | | [id number] | | | - LABORATORY | | | | + + + + + Vancomycin Level (09/07/2018 12:16 AM PST) + +-------+ + + + | Component | Value | Ref Range | Performed | Pathologist | | | | | At | Signature | + +-------+ + + + | Date of | | | [facility] | | | Last Dose | | | [facility] | | [facility] | | [facility] | | | | | | CENTER - | | | | | | LABORATORY | | + +-------+ + + + | Time of | | | [facility] | | | Last Dose | | | [facility] | | | | [facility] | | | | | | CENTER - | | | | | | LABORATORY | | + +-------+ + + + | Vancomycin | 11.4 | <=20.0 ug/mL | [facility] | | | Random | | | [facility] | | [...] ST. | [address] | [place] | [phone] | | [facility] | | [address] | | | - LABORATORY | | | | + + + + + Surgical Pathology Exam (09/07/2018 12:00 AM PST) + + | Specimen | + + | | + + + + + | Narrative | Performed At | + + + | SPECIMEN(S): A LEFT 2ND AND 3RD TOES SPECIMEN SOURCE: A. LEFT | [facility] | | 2ND AND 3RD TOES CLINICAL HISTORY: Infection left foot. FINAL | [facility] | | PATHOLOGIC DIAGNOSIS: Left 2nd and 3rd toes, excision: - | | | Necrotizing suppurative soft tissue inflammation with extension to | | | underlying bone, consistent with clinical history of diabetic foot | | | infection and osteomyelitis. CLR:[facility]:C2NR MICROSCOPIC | | | EXAMINATION: Histologic sections of all submitted blocks are examined | | | by light microscopy. These findings, together with the gross | | | examination, support the pathologic diagnosis. GROSS DESCRIPTION: | | | The specimen is received in formalin and labeled "left 2nd and 3rd | | | toe" is a 6.2 cm in length by 2.0 cm diameter disarticulated digit and | | | a separate 5.8 cm in length by 2.2 cm diameter disarticulated digit. | | | The skin surface of both digits is rodriguez-white and granular. The | | | first dictated digit includes a brown discolored area near one margin | | | that measures 1.3 x 1.0 cm. The discolored area is near the plantar | | | surface. Separate in the container are two bone fragments with one | | | articular surface and one smooth resection margin. The first | | | fragment measures 2.4 x 2.0 x 1.8 cm and the second fragment is 2.5 x | | | 2.1 x 1.5 cm. Representatively submitted in: (A1) first digit | | | lesion with relationship to skin and soft tissue margin and | | | cross-section of digit (A2) second digit skin margin en face and | | | cross-section of digit (A3) first dictated separate fragment, bone | | | margin en face (A4) second separate fragment, bone margin en face | | | (all sections decalcified in Decal Stat) am:AMB:luis e PERFORMING | | | LABORATORY: The technical component was performed by [employer] | | | [employer], [address] [place] [id number] (Product Responsibility Liaison: | | | Val Gomez MD; CLIA# [id number]). Professional interpretation was | | | performed by [employer], Located Within [facility] | | | Page, [address] [place] [address] (Product Responsibility Liaison: | | | Raciel Cho M.D.; CLIA#: [id number]). | | | Diagnostician: Raciel Cho MD Pathologist Electronically | | | Signed 09/10/2018 | | + + + + +---------+ + + | Performing | Address | City/State/Zipcode | Phone Number | | Organization | | | | + +---------+ + + | [facility] | | | | | [facility] | | | | + +---------+ + + POC Glucose (09/06/2018 9:53 PM PST) + +-------+ + + + | Component | Value | Ref Range | Performed | Pathologist | | | | | At | Signature | + +-------+ + + + | Glucose, | 91 | 70 - 109 mg/dL | [facility] [...] + | [facility] | [address] | [place] | [phone] | | [facility] | | [address] | | | - LABORATORY | | | | + + + + + MRI Foot Left wo Contrast (09/06/2018 8:03 PM PST) + + | Specimen | + + | | + + + + + | Narrative | Performed At | + + + | MRI FOOT LEFT WO CONTRAST 09/06/2018 7:44 PM HISTORY: Suspect | [facility] | | OM and deep abscess. COMPARISON: Right foot x-ray 09/05/2018. | | | PROTOCOL: Sagittal T1, sagittal STIR, axial T1, axial STIR, coronal | | | T1, coronal STIR. FINDINGS: There appears to a deep ulcer along | | | the plantar aspect of the forefoot at the level of the second | | | metatarsal head with depth of 1.9 cm. Subluxation is present at the | | | second MTP joint with superior displacement of the proximal phalanx | | | relative to the metatarsal. Moderate marrow edema is observed in the | | | distal aspect of the second metatarsal. Extensive marrow edema is | | | visualized throughout the length of the second proximal phalanx. | | | Moderate marrow edema are noted of the third metatarsal head and | | | proximal to mid aspect of the third proximal phalanx. These findings | | | are most consistent with osteomyelitis. Multiple small fluid | | | collections are seen in the dorsal region of the second and third | | | metatarsal mid to distal shafts, dorsal aspect of the second MTP | | | joint, and the plantar aspect of the second middle phalanx that would | | | be consistent with small abscesses measuring up to 2.5 cm between | | | the second and third metatarsal heads. There is extensive myositis of | | | the first through fourth digits. Extensive subcutaneous cellulitis | | | is present with soft tissue swelling. The imaged plantar fascia is | | | normal. The cervical and interosseous ligaments of the sinus | | | tarsi are intact. There is moderate edema within the sinus tarsi. | | | Scattered degenerative cysts are present in the inferior aspect of | | | the talus. IMPRESSION - Findings of osteomyelitis of the second | | | and third metatarsals and proximal phalanges, greater in the second | | | digit. Multiple small deep abscess is in the region of the second | | | and third digits. Extensive myositis and cellulitis. Deep | | | ulcer along the plantar aspect of the forefoot at the level of the | | | second metatarsal head. Subluxation at second MTP joint. | | | Dictated and Signed by: Donovan Gayle MD Electronically signed: | | | 09/06/2018 9:15 PM | | + + + + + | Procedure Note | + + | [facility]ana, Rad Results In - 09/06/2018 9:18 PM PST MRI FOOT LEFT WO CONTRAST 09/06/2018 | | 7:44 PM HISTORY: Suspect OM and deep abscess.COMPARISON: Right foot x-ray | | 09/05/2018.PROTOCOL: Sagittal T1, sagittal STIR, axial T1, axial STIR, coronal T1, | | coronalSTIR.FINDINGS:There appears to a deep ulcer along the plantar aspect of the | | forefoot at thelevel of the second metatarsal head with depth of 1.9 cm. Subluxation is | | presentat the second MTP joint with superior displacement of the proximal | | phalanxrelative to the metatarsal. Moderate marrow edema is observed in the distalaspect | | of the second metatarsal. Extensive marrow edema is visualized throughoutthe length of | | the second proximal phalanx. Moderate marrow edema are noted ofthe third metatarsal head | | and proximal to mid aspect of the third proximalphalanx. These findings are most | | consistent with osteomyelitis. Multiple smallfluid collections are seen in the dorsal | | region of the second and thirdmetatarsal mid to distal shafts, dorsal aspect of the | | second MTP joint, and theplantar aspect of the second middle phalanx that would be | | consistent with smallabscesses measuring up to 2.5 cm between the second and third | | metatarsal heads.There is extensive myositis of the first through fourth digits. | | Extensivesubcutaneous cellulitis is present with soft tissue swelling.The imaged plantar | | fascia is normal.The cervical and interosseous ligaments of the sinus tarsi are intact. | | There ismoderate edema within the sinus tarsi.Scattered degenerative cysts are present | | in the inferior aspect of the talus.IMPRESSION -Findings of osteomyelitis of the second | | and third metatarsals and proximalphalanges, greater in the second digit.Multiple small | | deep abscess is in the region of the second and third digits.Extensive myositis and | | cellulitis.Deep ulcer along the plantar aspect of the forefoot at the level of the | | secondmetatarsal head.Subluxation at second MTP joint.Dictated and Signed by: Donovan | | MD Irwin Electronically signed: 09/06/2018 9:15 PM | | | |The imaged plantar fascia is normal. | | | |The cervical and interosseous ligaments of the sinus tarsi are intact. There is | |moderate edema within the sinus tarsi. | | | |Scattered degenerative cysts are present in the inferior aspect of the talus. | | | |IMPRESSION - | |Findings of osteomyelitis of the second and third metatarsals and proximal | |phalanges, greater in the second digit. | | | |Multiple small deep abscess is in the region of the second and third digits. | | | |Extensive myositis and cellulitis. | | | |Deep ulcer along the plantar aspect of the forefoot at the level of the second | |metatarsal head. | | | |Subluxation at second MTP joint. | | | |Dictated and Signed by: Donovan Gayle MD | | Electronically signed: 09/06/2018 9:15 PM | + + + +---------+ + + | Performing | Address | City/State/Zipcode | Phone Number | | Organization | | | | + +---------+ + + | [facility] | | | | + +---------+ + + POC Glucose (09/06/2018 5:55 PM PST) + +---------+ + + + | Component | Value | Ref Range | Performed | Pathologist | | | | | At | Signature | + +---------+ + + + | Glucose, | 120 (H) | 70 - 109 mg/dL | [...] ST. | [address] | [place], [place] | [phone] | | [facility] | | [address] | | | - LABORATORY | | | | + + + + + POC Glucose (09/06/2018 11:56 AM PST) + +-------+ + + + | Component | Value | Ref Range | Performed | Pathologist | | | | | At | Signature | + +-------+ + + + | Glucose, | 82 | 70 - 109 mg/dL | [facility] [...] [address] | [place] | [phone] | | [facility] | | [address] | | | - LABORATORY | | | | + + + + + POC Glucose (09/06/2018 6:35 AM PST) + +---------+ + + + | Component | Value | Ref Range | Performed | Pathologist | | | | | At | Signature | + +---------+ + + + | Glucose, | 185 (H) | 70 - 109 mg/dL | [...] + | [facility] | [address] | [place] | [phone] | | [facility] | | [address] | | | - LABORATORY | | | | + + + + + C-Reactive Protein (09/06/2018 5:55 AM PST) + + + + + + | Component | Value | Ref Range | Performed | Pathologist | | | | | At | Signature | + + + + + + | CRP | 226.92 (H) | <8.00 mg/L | [facility] | | | | | | [facility] [address] | [place] | [phone] | | [facility] | | [address] | | | - LABORATORY | | | | + + + + + Sedimentation Rate (09/06/2018 5:55 AM PST) + +--------+ + + + | Component | Value | Ref Range | Performed | Pathologist | | | | | At | Signature | + +--------+ + + + | Erythrocyte | 84 (H) | <20 mm/hr | [facility] | | | | | | [facility] | | | [facility] | | | MEDICAL | | | on Rate | | | CENTER - | | | | | | LABORATORY | | + +--------+ + + + + + | Specimen | + + | Blood | + + + + + + + | Performing | Address | City/State/Zipcode | Phone Number | | Organization | | | | + + + + + | [facility] | [address] | [place] | [phone] | | [facility] | | [address] | | | - LABORATORY | | | | + + + + + Protime INR (09/06/2018 5:55 AM PST) + + + + + + | Component | Value | Ref Range | Performed | Pathologist | | | | | At | Signature | + + + + + + | Prothrombin | 17.6 (H) | 11.3 - 13.9 | [facility] | | | Time | | seconds | [facility] | | | | | | MEDICAL | | | | | | CENTER - | | | | | | LABORATORY | | + + + + + + | INR | 1.5 (H)Comment: Usual | 0.9 - 1.1 | [facility] | | | | Oral Anticoagulation | | [facility] | | | | Range: 2.0 - | | MEDICAL | | | | 3.0High Level Oral | | CENTER - | | | | Anticoagulation Range: | | LABORATORY | | | | 2.5 - 3.5 | | | | + + + + + + + + | Specimen | + + | Blood | + + + + + + + | Performing | Address | City/State/Zipcode | Phone Number | | Organization | | | | + + + + + | [facility] | [address] | [place] | [phone] | | [facility] | | [address] | | | - LABORATORY | | | | + + + + + Magnesium (09/06/2018 5:55 AM PST) + +-------+ + + + | Component | Value | Ref Range | Performed | Pathologist | | | | | At | Signature | + +-------+ + + + | Magnesium | 2.1 | 1.8 - 2.5 mg/dL | [facility] | | | | | | [facility] [...] [address] | [place] | [phone] | | [facility] | | [address] | | | - LABORATORY | | | | + + + + + CBC with Differential (09/06/2018 5:55 AM PST) + + + + + + | Component | Value | Ref Range | Performed | Pathologist | | | | | At | Signature | + + + + + + | WBC | 8.1 | 4.0 - 11.0 K/uL | [facility] | | | | | | [facility] | | | | | | MEDICAL | | | | | | CENTER - | | | | | | LABORATORY | | + + + + + + | RBC | 3.06 (L) | 4.30 - 5.70 | [facility] | | | | | M/uL | [facility] | | | | | | MEDICAL | | | | | | CENTER - | | | | | | LABORATORY | | + + + + + + | Hemoglobin | 9.4 (L) | 13.5 - 18.0 | [facility] | | | | | g/dL | [facility] | | | | | | MEDICAL | | | | | | CENTER - | | | | | | LABORATORY | | + + + + + + | Hematocrit | 28.9 (L) | 40.0 - 51.0 % | [facility] | | | | | | [facility] | | | | | | MEDICAL | | | | | | CENTER - | | | | | | LABORATORY | | + + + + + + | MCV | 94.4 | 83.0 - 101.0 fL | [facility] [...] + + + + | MCHC | 32.5 | 32.0 - 36.0 | [facility] | | | | | g/dL | [facility] | | | | | | MEDICAL | | | | | | CENTER - | | | | | | LABORATORY | | + + + + + + | RDW-CV | 13.9 | <15.0 % | [facility] | | | | | | [facility] | | | | | | MEDICAL | | | | | | CENTER - | | | | | | LABORATORY | | + + + + + + | RDW-SD | 47.4 (H) | 35.1 - 46.3 fL | [facility] | | | | | | [facility] | | | | | | MEDICAL | | | | | | CENTER - | | | | | | LABORATORY | | + + + + + + | Platelet | 253 | 140 - 440 K/uL | [facility] [...] + + + + | % | 64.3 | 45.0 - 82.0 % | [facility] | | | Neutrophils | | | [facility] | | | | | | MEDICAL | | | | | | CENTER - | | | | | | LABORATORY | | + + + + + + | % | 16.1 (L) | 20.0 - 45.0 % | [facility] | | | Lymphocytes | | | [facility] | | | | | | MEDICAL | | | | | | CENTER - | | | | | | LABORATORY | | + + + + + + | % Monocytes | 8.8 | 4.0 - 12.0 % | [facility] | | | | | | [facility] | | | | | | MEDICAL | | | | | | CENTER - | | | | | | LABORATORY | | + + + + + + | % | 9.2 (H) | 0.0 - 5.0 % | [facility] | | | Eosinophils | | | [facility] | | | | | | MEDICAL | | | | | | CENTER - | | | | | | LABORATORY | | + + + + + + | % Basophils | 1.2 (H) | 0.0 - 1.0 % | [facility] [...] + + + + | Absolute | 5.19 | 1.80 - 8.50 | [facility] | | | Neutrophils | | K/uL | [facility] | | | | | | MEDICAL | | | | | | CENTER - | | | | | | LABORATORY | | + + + + + + | Absolute | 1.30 | 0.60 - 3.20 | [facility] | | | Lymphocytes | | K/uL | [facility] | | | | | | MEDICAL | | | | | | CENTER - | | | | | | LABORATORY | | + + + + + + | Absolute | 0.71 | 0.00 - 1.00 | [facility] | | | Monocytes | | K/uL | [facility] | | | | | | MEDICAL | | | | | | CENTER - | | | | | | LABORATORY | | + + + + + + | Absolute | 0.74 (H) | 0.00 - 0.40 | [facility] | | | Eosinophils | | K/uL | [facility] | | | | | | MEDICAL | | | | | | CENTER - | | | | | | LABORATORY | | + + + + + + | Absolute | 0.10 | 0.00 - 0.10 | [facility] | | | Basophils | | K/uL | [facility] | | | | | | MEDICAL | | | | | | CENTER - | | | | | | LABORATORY | | + + + + + + | Absolute | 0.03 | 0.00 - 0.03 | [facility] | | | Immature | | K/uL | [facility] | | | Granulocyte | | | MEDICAL | | | s | | | CENTER - | | | | | | LABORATORY | | + + + + + + | % nRBC | 0 | 0 - 2 per 100 | [facility] | | | | | WBC's | [facility] | | | | | | MEDICAL | | | | | | CENTER - | | | | | | LABORATORY | | + + + + + + | Absolute | 0.00 | 0.00 - 0.01 | [facility] | | | nRBC | | K/uL | [facility] | [...] + | [facility] | [address] | [place] | [phone] | | [facility] | | [address] | | | - LABORATORY | | | | + + + + + Basic Metabolic Panel (09/06/2018 5:55 AM PST) + + + + + + | Component | Value | Ref Range | Performed | Pathologist | | | | | At | Signature | + + + + + + | Na | 133 (L) | 136 - 149 | [facility] | | | | | mmol/L | [facility] | | | | | | MEDICAL | | | | | | CENTER - | | | | | | LABORATORY | | + + + + + + | K | 3.6 | 3.5 - 5.1 | [facility] | | | | | mmol/L | [facility] | | | | | | MEDICAL | | | | | | CENTER - | | | | | | LABORATORY | | + + + + + + | Cl | 91 (L) | 98 - 109 mmol/L | [facility] | | | | | | [facility] | | | | | | MEDICAL | | | | | | CENTER - | | | | | | LABORATORY | | + + + + + + | CO2 | 28 | 24 - 31 mmol/L | [facility] | | | | | | [facility] | | | | | | MEDICAL | | | | | | CENTER - | | | | | | LABORATORY | | + + + + + + | Anion Gap | 14 | 3 - 16 mmol/L | [facility] | | | | | | [facility] | | | | | | MEDICAL | | | | | | CENTER - | | | | | | LABORATORY | | + + + + + + | Glucose | 182 (H) | 70 - 109 mg/dL | [facility] | | | | | | [facility] | | | | | | MEDICAL | | | | | | CENTER - | | | | | | LABORATORY | | + + + + + + | BUN | 40 (H) | 7 - 18 mg/dL | [facility] | | | | | | [facility] | | | | | | MEDICAL | | | | | | CENTER - | | | | | | LABORATORY | | + + + + + + | Creatinine | 7.48 (HH)Comment: | 0.60 - 1.30 | [facility] | | | | Critical Result called | mg/dL | [facility] | | | | to and read back by | | MEDICAL | | | | Dale Nunez RN on | | CENTER - | | | | 09/06/2018 at 6:14 by Ty | | LABORATORY | | | | Maycol. | | | | + + + + + + | eGFR if not | 8 (L)Comment: GLOMERULAR | >=60 | [facility] | | | | FILTRATION | mL/min/1.73m2 | [facility] | | | MACEDONIAN | RATE,ESTIMATED | | MEDICAL | | | | mL/min/1.19a9Kggf than | | CENTER - | | [...] + + + + | Calcium | 8.1 (L) | 8.3 - 10.5 | [facility] | | | | | mg/dL | [facility] | | | | | | MEDICAL | | | | | | CENTER - | | | | | | LABORATORY | | + + + + + + | BUN/Creatin | 5.3 | | [facility] | | | ine [...] [facility]. | [address] | [place] | [phone] | | [facility] | | [address] | | | - LABORATORY | | | | + + + + + POC Glucose (09/05/2018 11:20 PM PST) + +---------+ + + + | Component | Value | Ref Range | Performed | Pathologist | | | | | At | Signature | + +---------+ + + + | Glucose, | 111 (H) | 70 - 109 mg/dL | [...] St | [place] | [phone] | | [facility] | | [address] | | | - LABORATORY | | | | + + + + + Culture, Blood (09/05/2018 6:06 PM PST) + + + + + + | Component | Value | Ref Range | Performed | Pathologist | | | | | At | Signature | + + + + + + | Culture | No growth after 5 days | | [facility] | | | | incubation. | | [...] ST. | [address] | [place], [place] | [phone] | | [facility] | | [address] | | | - LABORATORY | | | | + + + + + XR Foot Right 3 + Vw (09/05/2018 5:57 PM PST) + + | Specimen | + + | | + + + + + | Narrative | Performed At | + + + | XR FOOT RIGHT 3 + VW 09/05/2018 5:57 PM HISTORY: FOOT PAIN | [facility] | | FEVER (9 WEEKS TO 74 YEARS). COMPARISON: None. FINDINGS: | | | Subluxation is visualized at the second MTP joint along with | | | significant soft tissue swelling of the second digit with associated | | | gas that is concerning for cellulitis. No definite erosion is | | | observed to suggest osteomyelitis at this time. There are moderate | | | degenerative changes of the IP joints. Tiny spurs are present of the | | | calcaneus. There is diffuse osteopenia. Extensive atherosclerosis is | | | observed. IMPRESSION - Subluxation at the second MTP joint along | | | with significant soft tissue swelling of the second digit with | | | associated gas that is concerning for cellulitis. No definite erosion | | | is observed to suggest osteomyelitis at this time. If clinically | | | indicated, MRI can be considered. Extensive atherosclerosis | | | possibly related to diabetes Dictated and Signed by: Donovan Gayle | | | Electronically signed: 09/05/2018 6:45 PM | | + + + + + | Procedure Note | + + | Kana, Rad Results In - 09/05/2018 6:48 PM PST XR FOOT RIGHT 3 + VW 09/05/2018 5:57 PM | | | | HISTORY: FOOT PAIN | | FEVER (9 WEEKS TO 74 YEARS). | | | | COMPARISON: None. | | | | FINDINGS: | | Subluxation is visualized at the second MTP joint along with significant soft | | tissue swelling of the second digit with associated gas that is concerning for | | cellulitis. No definite erosion is observed to suggest osteomyelitis at this | | time. There are moderate degenerative changes of the IP joints. Tiny spurs are | | present of the calcaneus. There is diffuse osteopenia. Extensive atherosclerosis | | is observed. | | | | IMPRESSION - | | Subluxation at the second MTP joint along with significant soft tissue swelling | | of the second digit with associated gas that is concerning for cellulitis. No | | definite erosion is observed to suggest osteomyelitis at this time. If | | clinically indicated, MRI can be considered. | | | | Extensive atherosclerosis possibly related to diabetes | | | | Dictated and Signed by: Donovan Gayle MD | | Electronically signed: 09/05/2018 6:45 PM | + + + +---------+ + + | Performing | Address | City/State/Zipcode | Phone Number | | Organization | | | | + +---------+ + + | [facility] | | | | + +---------+ + + Blood Culture GP Pathogen Panel, PCR (09/05/2018 5:25 PM PST) + + + + + + | Component | Value | Ref Range | Performed | Pathologist | | | | | At | Signature | + + + + + + | Staphylococ | Detected (AA) | Not Detected | [facility] | | | cus | | | [facility] | | | species, | | | MEDICAL | | | DNA | | | CENTER - | | | | | | LABORATORY | | + + + + + + | Staphylococ | Detected (AA) | Not Detected | [facility] | | | cus aureus, | | | [facility] | | | DNA | | | MEDICAL | | | | | | CENTER - | | | | | | LABORATORY | | + + + + + + | mecA | Detected (AA) | Not Detected | [facility] | | | (methicilli | | | [facility] | | | n-resistanc | | | MEDICAL | | | e gene), | | | CENTER - | | | DNA | | | LABORATORY | | + + + + + + | Staphylococ | Not Detected | Not Detected | [facility] | | | cus | | | [facility] | | | epidermidis | | | MEDICAL | | | , DNA | | | CENTER - | | | | | | LABORATORY | | + + + + + + | Staphylococ | Not Detected | Not Detected | [facility] | | | cus | | | [facility] | | | lugdunensis | | | MEDICAL | | | , DNA | | | CENTER - | | | | | | LABORATORY | | + + + + + + | Enterococcu | Not Detected | Not Detected | [facility] | | | s faecalis, | | | [facility] | | | DNA | | | MEDICAL | | | | | | CENTER - | | | | | | LABORATORY | | + + + + + + | Enterococcu | Not Detected | Not Detected | [facility] | | | s faecium, | | | [facility] | | | DNA | | | MEDICAL | | | | | | CENTER - | | | | | | LABORATORY | | + + + + + + | Evelyne | Not Detected | Not Detected | [facility] | | | (vancomycin | | | [facility] | | | -resistance | | | MEDICAL | | | gene), DNA | | | CENTER - | | | | | | LABORATORY | | + + + + + + | Streptococc | Not Detected | Not Detected | [facility] | | | us species, | | | [facility] | | | DNA | | | MEDICAL | | | | | | CENTER - | | | | | | LABORATORY | | + + + + + + | Streptococc | Not Detected | Not Detected | [facility] | | | us | | | [facility] | | | agalactiae | | | MEDICAL | | | (Group B), | | | CENTER - | | | DNA | | | LABORATORY | | + + + + + + | Streptococc | Not Detected | Not Detected | [facility] | | | us | | | [facility] | | | anginosus, | | | MEDICAL | | | DNA | | | CENTER - | | | | | | LABORATORY | | + + + + + + | Streptococc | Not Detected | Not Detected | [facility] | | | us | | | [facility] | | | pneumonia/m | | | MEDICAL | | | itis, DNA | | | CENTER - | | | | | | LABORATORY | | + + + + + + | Streptococc | Not Detected | Not Detected | [facility] | | | us pyogenes | | | [facility] | | | (Group A), | | | MEDICAL | | | DNA | | | CENTER - | | | | | | LABORATORY | | + + + + + + | Listeria | Not Detected | Not Detected | [facility] | | | species, | | | [facility] | | | DNA | | | MEDICAL | | | | | | CENTER - | | | | | | LABORATORY | | + + + + + + | vanB | Not Detected | Not Detected | [facility] | | | (vancomycin | | | [facility] | | | -resistance | | | MEDICAL | | | gene), DNA | | | CENTER - | | | | | | LABORATORY | | + + + + + + + + | Specimen | + + | Blood - Peripheral | | blood specimen | | (specimen) | + + + + + | Narrative | Performed At | + + + | Molecular results to be confirmed by conventional methods | [facility] | | | [facility] | | | [facility] | | | - LABORATORY | + + + + + + + + | Performing | Address | City/State/Zipcode | Phone Number | | Organization | | | | + + + + + | [facility] | [address] | [place] | [phone] | | [facility] | | [id number] | | | - LABORATORY | | | | + + + + + Culture, Blood (09/05/2018 5:25 PM PST) + + + + + + | Component | Value | Ref Range | Performed | Pathologist | | | | | At | Signature | + + + + + + | Culture | Positive Blood Culture | | [facility] | | | | (AA) | | [facility] | | | | | | [facility] | | | | | | CENTER - | | | | | | LABORATORY | | + + + + + + | Culture | Staphylococcus | | [facility] | | | | aureus,Methicillin | | [facility] | | | | resistant (MRSA)Comment: | | MEDICAL | | | | *INFECTION PREVENTION | | CENTER - | | | | ALERT - MRSA* CONTACT | | LABORATORY | | | | PRECAUTIONS REQUIRED. | | | | + + + + + + | Gram Stain | Gram positive cocci in | | [facility] | | | Result | clustersComment: 1 of 4 | | [facility] | | | | bottles positive. | | MEDICAL | | | | Critical Result called | | CENTER - | | | | to and read back by | | LABORATORY | | | | Jes Dan on 09/07/2018 | | | | | | at 0:58 by Roderick Berry | | | | | | Vivek. This is an | | | | | | appended report. These | | | | | | results have been | | | | | | appended to a previously | | | | | | preliminary verified | | | | | | report. | | | | + + + + + + + + | Specimen | + + | Blood - Peripheral | | blood specimen | | (specimen) | + + + + +--------+ + | Organism | Antibiotic | Method | Susceptibility | + + +--------+ + | Staphylococcus | Ciprofloxacin | | >=8 ug/mL: | | aureus,Methicillin | | | Resistant | | resistant (MRSA) | | | | + + +--------+ + | Staphylococcus | Clindamycin | | 0.25 ug/mL: | | aureus,Methicillin | | | Sensitive | | resistant (MRSA) | | | | + + +--------+ + | Staphylococcus | Levofloxacin | | 4 ug/mL: Resistant | | aureus,Methicillin | | | | | resistant (MRSA) | | | | + + +--------+ + | Staphylococcus | Linezolid | | 2 ug/mL: Sensitive | | aureus,Methicillin | | | | | resistant (MRSA) | | | | + + +--------+ + | Staphylococcus | Oxacillin | | >=4 ug/mL: | | aureus,Methicillin | | | Resistant | | resistant (MRSA) | | | | + + +--------+ + | Staphylococcus | Penicillin G | | >=0.5 ug/mL: | | aureus,Methicillin | | | Resistant | | resistant (MRSA) | | | | + + +--------+ + | Staphylococcus | Rifampin | | <=0.5 ug/mL: | | aureus,Methicillin | | | Sensitive | | resistant (MRSA) | | | | + + +--------+ + +---+ + | | Comment: Rifampin | | | should not be used | | | alone for | | | chemotherapy. | +---+ + + + +---+ + | Staphylococcus | Tetracycline | | <=1 ug/mL: | | aureus,Methicillin | | | Sensitive | | resistant (MRSA) | | | | + + +---+ + | Staphylococcus | Trimethoprim + | | <=10 ug/mL: | | aureus,Methicillin | Sulfamethoxazole | | Sensitive | | resistant (MRSA) | | | | + + +---+ + | Staphylococcus | Vancomycin | | <=0.5 ug/mL: | | aureus,Methicillin | | | Sensitive | | resistant (MRSA) | | | | + + +---+ + + + + + + | Performing | Address | City/State/Zipcode | Phone Number | | Organization | | | | + + + + + | [facility] | [address] | [place] | [phone] | | [facility] | | [address] | | | - LABORATORY | | | | + + + + + Lactic Acid (09/05/2018 5:25 PM PST) + +-------+ + + + | Component | Value | Ref Range | Performed | Pathologist | | | | | At | Signature | + +-------+ + + + | Lactate | 1.3 | 0.5 - 2.2 | [facility] | | | | | mmol/L | [facility] | | | | | | MEDICAL [...] + | [facility] | [address] | [place] | [phone] | | [facility] | | [address] | | | - LABORATORY | | | | + + + + + Comprehensive Metabolic Panel (09/05/2018 5:25 PM PST) + + + + + + | Component | Value | Ref Range | Performed | Pathologist | | | | | At | Signature | + + + + + + | Na | 132 (L) | 136 - 149 | [facility] | | | | | mmol/L | [facility] | | | | | | MEDICAL | | | | | | CENTER - | | | | | | LABORATORY | | + + + + + + | K | 3.7 | 3.5 - 5.1 | [facility] | | | | | mmol/L | [facility] | | | | | | MEDICAL | | | | | | CENTER - | | | | | | LABORATORY | | + + + + + + | Cl | 89 (L) | 98 - 109 mmol/L | [facility] | | | | | | [facility] | | | | | | MEDICAL | | | | | | CENTER - | | | | | | LABORATORY | | + + + + + + | CO2 | 31 | 24 - 31 mmol/L | [facility] | | [...] + + + + | Glucose | 156 (H) | 70 - 109 mg/dL | [facility] | | | | | | [facility] | | | | | | MEDICAL | | | | | | CENTER - | | | | | | LABORATORY | | + + + + + + | BUN | 33 (H) | 7 - 18 mg/dL | [facility] | | | | | | [facility] | | | | | | MEDICAL | | | | | | CENTER - | | | | | | LABORATORY | | + + + + + + | Creatinine | 6.72 (H) | 0.60 - 1.30 | [facility] | | | | | mg/dL | [facility] | | | | | | MEDICAL | | | | | | CENTER - | | | | | | LABORATORY | | + + + + + + | eGFR if not | 8 (L)Comment: GLOMERULAR | >=60 | [facility] | | | | FILTRATION | mL/min/1.73m2 | [facility] | | | [facility]ONIAN | RATE,ESTIMATED | | MEDICAL | | | | mL/min/1.77t2Iitp than | | CENTER - | | [...] + + + + | Calcium | 8.7 | 8.3 - 10.5 | [facility] | | | | | mg/dL | [facility] | | | | | | MEDICAL | | | | | | CENTER - | | | | | | LABORATORY | | + + + + + + | Albumin | 2.8 (L) | 3.2 - 5.0 g/dL | [facility] | | | | | | [facility] | | | | | | MEDICAL | | | | | | CENTER - | | | | | | LABORATORY | | + + + + + + | Bilirubin | 2.0 (H)Comment: This is | 0.1 - 1.5 mg/dL | [facility] | | | Total | an appended report. | | [facility] | | | | These results have been | | MEDICAL | | | | appended to a previously | | CENTER - | | | | preliminary verified | | LABORATORY | | | | report. | | | | + + + + + + | Total | 8.1 (H) | 6.0 - 7.8 g/dL | [facility] | | | Protein | | | [facility] | | | | | | [facility] | | | | | | CENTER - | | | | | | LABORATORY | | + + + + + + | AST | 30Comment: This is an | 10 - 42 U/L | [facility] | | | | appended report. These | | [facility] | | | | results have been | | MEDICAL | | | | appended to a previously | | CENTER - | | | | preliminary verified | | LABORATORY | | | | report. | | | | + + + + + + | ALT | 18Comment: This is an | 6 - 45 U/L | [facility] | | | | appended report. These | | [facility] | | | | results have been | | MEDICAL | | | | appended to a previously | | CENTER - | | | | preliminary verified | | LABORATORY | | | | report. | | | | + + + + + + | Alkaline | 215 (H)Comment: This is | 40 - 110 U/L | [facility] | | | Phosphatase | an appended report. | | [facility] | | | | These results have been | | MEDICAL | | | | appended to a previously | | CENTER - | | | | preliminary verified | | LABORATORY | | | | report. | | | | + + + + + + | Globulin | 5.3 (H) | 2.1 - 3.8 g/dL | [facility] | | | | | | [facility] | | | | | | MEDICAL | | | | | | CENTER - | | | | | | LABORATORY | | + + + + + + | Albumin/Ofelia | 0.5 (L) | 0.8 - 2.0 | [facility] | | | bulin Ratio | | | [facility] | | | | | | MEDICAL | | | | | | CENTER - | | | | | | LABORATORY | | + + + + + + | BUN/Creatin | 4.9 | | [facility] | | | ine [...] [address] | [place] | [phone] | | [facility] | | [address] | | | - LABORATORY | | | | + + + + + CBC with Differential (09/05/2018 5:25 PM PST) + + + + + + | Component | Value | Ref Range | Performed | Pathologist | | | | | At | Signature | + + + + + + | WBC | 10.8 | 4.0 - 11.0 K/uL | [facility] | | | | | | [facility] | | | | | | MEDICAL | | | | | | CENTER - | | | | | | LABORATORY | | + + + + + + | RBC | 3.31 (L) | 4.30 - 5.70 | [facility] | | | | | M/uL | [facility] | | | | | | MEDICAL | | | | | | CENTER - | | | | | | LABORATORY | | + + + + + + | Hemoglobin | 10.0 (L) | 13.5 - 18.0 | [facility] | | | | | g/dL | [facility] | | | | | | MEDICAL | | | | | | CENTER - | | | | | | LABORATORY | | + + + + + + | Hematocrit | 31.1 (L) | 40.0 - 51.0 % | [facility] | | | | | | [facility] | | | | | | MEDICAL | | | | | | CENTER - | | | | | | LABORATORY | | + + + + + + | MCV | 94.0 | 83.0 - 101.0 fL | [facility] | | | | | | [facility] | | | | | | MEDICAL | | | | | | CENTER - | | | | | | LABORATORY | | + + + + + + | MCH | 30.2 | 28.0 - 35.0 pg | [facility] [...] + + + + | RDW-CV | 13.8 | <15.0 % | [facility] | | | | | | [facility] | | | | | | MEDICAL | | | | | | CENTER - | | | | | | LABORATORY | | + + + + + + | RDW-SD | 47.9 (H) | 35.1 - 46.3 fL | [facility] | | | | | | [facility] | | | | | | MEDICAL | | | | | | CENTER - | | | | | | LABORATORY | | + + + + + + | Platelet | 278 | 140 - 440 K/uL | [facility] | | | Count | | | [facility] | | | | | | MEDICAL | | | | | | CENTER - | | | | | | LABORATORY | | + + + + + + | MPV | 9.8 | 6.5 - 12.4 fL | [facility] | | | | | | [facility] | | | | | | MEDICAL | | | | | | CENTER - | | | | | | LABORATORY | | + + + + + + | % | 72.9 | 45.0 - 82.0 % | [facility] | | | Neutrophils | | | [facility] | | | | | | MEDICAL | | | | | | CENTER - | | | | | | LABORATORY | | + + + + + + | % | 12.2 (L) | 20.0 - 45.0 % | [facility] | | | Lymphocytes | | | [facility] | | | | | | MEDICAL | | | | | | CENTER - | | | | | | LABORATORY | | + + + + + + | % Monocytes | 9.2 | 4.0 - 12.0 % | [facility] | | | | | | [facility] | | | | | | MEDICAL | | | | | | CENTER - | | | | | | LABORATORY | | + + + + + + | % | 4.7 | 0.0 - 5.0 % | [facility] | | | Eosinophils | | | [facility] | | | | | | MEDICAL | | | | | | CENTER - | | | | | | LABORATORY | | + + + + + + | % Basophils | 0.6 | 0.0 - 1.0 % | [facility] [...] + + + + | Absolute | 7.84 | 1.80 - 8.50 | [facility] | | | Neutrophils | | K/uL | [facility] | | | | | | MEDICAL | | | | | | CENTER - | | | | | | LABORATORY | | + + + + + + | Absolute | 1.31 | 0.60 - 3.20 | [facility] | | | Lymphocytes | | K/uL | [facility] | | | | | | MEDICAL | | | | | | CENTER - | | | | | | LABORATORY | | + + + + + + | Absolute | 0.99 | 0.00 - 1.00 | [facility] | | | Monocytes | | K/uL | [facility] | | | | | | MEDICAL | | | | | | CENTER - | | | | | | LABORATORY | | + + + + + + | Absolute | 0.51 (H) | 0.00 - 0.40 | [facility] | | | Eosinophils | | K/uL | [facility] | | | | | | MEDICAL | | | | | | CENTER - | | | | | | LABORATORY | | + + + + + + | Absolute | 0.06 | 0.00 - 0.10 | [facility] | | | Basophils | | K/uL | [facility] | | | | | | MEDICAL | | | | | | CENTER - | | | | | | LABORATORY | | + + + + + + | Absolute | 0.04 (H) | 0.00 - 0.03 | [facility] [...] | [facility] | | | | | WBC's | [facility] | | | | [...] + | [facility] | [address] | [place] | [phone] | | [facility] | | [address] | | | - LABORATORY | | | | + + + + + documented in this encounter Visit Diagnoses Not on filedocumented in this encounter Administered Medications + +--------+---------+------+------+------+ | Medication Order | MAR | Action | Dose | Rate | Site | | | Action | Date | | | | + +--------+---------+------+------+------+ + +---+ | acetaminophen (TYLENOL) tablet | | | 650 mg 650 mg, Oral, EVERY 6 | | | HOURS PRN, Pain, or fever >= 38.3 | | | C (101.5 F), Starting Sat | | | 09/07/18 at 1339 | | + +---+ | | | + +---+ | ampicillin-sulbactam (UNASYN) 3 | | | g in sodium chloride 0.9% 100 mL | | | IVPB 3 g, Intravenous, | | | Administer over 30 Minutes, EVERY | | | 24 HOURS INTERVAL, First dose | | | (after last modification) on Sun | | | 09/11/18 at 2100, Administer after | | | hemodialysis on dialysis days. | | | Keep in refrigerator., | | | Indications: Diabetic Foot | | | Infection, Osteomyelitis | | + +---+ | | | + +---+ + +-------+ +--------+---+---+ | cholecalciferol (VITAMIN D-3) | Given | 09/11/20 | 5,000 | | | | tablet 5,000 Units 5,000 Units, | | 18 9:25 | Units | | | | Oral, DAILY, First dose on Fri | | AM PST | | | | | 09/06/18 at 0900 | | | | | | + +-------+ +--------+---+---+ +-------+ +--------+---+---+ | Given | 09/10/20 | 5,000 | | | | | 18 9:00 | Units | | | | | AM PST | | | | +-------+ +--------+---+---+ | Given | 09/09/20 | 5,000 | | | | | 18 9:31 | Units | | | | | AM PST | | | | +-------+ +--------+---+---+ +---+---+ | | | +---+---+ + +-------+ +-------+---+---+ | cinacalcet (SENSIPAR) tablet 60 | Given | 09/11/20 | 60 mg | | | | mg 60 mg, Oral, DAILY, First | | 18 9:24 | | | | | dose on Sun09/06/18 at 0900 | | AM PST | | | | + +-------+ +-------+---+---+ +-------+ +-------+---+---+ | Given | 09/10/20 | 60 mg | | | | | 18 9:00 | | | | | | AM PST | | | | +-------+ +-------+---+---+ | Given | 09/09/20 | 60 mg | | | | | 18 12:28 | | | | | | PM PST | | | | +-------+ +-------+---+---+ + +---+ | | | + +---+ | dextrose 50% injection 12.5 g | | | 12.5 g, Intravenous, PRN, Low | | | Blood Sugar, Starting Sakina | | | 09/05/18 at 2156 | | + +---+ | | | + +---+ + +-------+ +--------+---+ + | epoetin padilla (EPOGEN, PROCRIT) | Given | 09/09/20 | 8,000 | | Abdomen- | | 20,000 units/mL injection 8,000 | | 18 10:38 | Units | | LLQ | | Units 8,000 Units, Subcutaneous, | | PM PST | | | | | THREE TIMES WEEKLY (Once per day | | | | | | | on Sun), First dose | | | | | | | (after last modification) on Sun | | | | | | | 09/09/18 at 2100 | | | | | | + +-------+ +--------+---+ + +---+---+ | | | +---+---+ + +-------+ +--------+---+---+ | fentaNYL (PF) injection 50 mcg | Given | 09/06/20 | 50 mcg | | | | 50 mcg, Intravenous, EVERY 1 | | 18 11:35 | | | | | HOUR PRN, Pain, Starting Sakina | | PM PST | | | | | 09/05/18 at 1834 | | | | | | + +-------+ +--------+---+---+ +-------+ +--------+---+---+ | Given | 09/05/20 | 50 mcg | | | | | 18 8:47 | | | | | | PM PST | | | | +-------+ +--------+---+---+ | Given | 09/05/20 | 50 mcg | | | | | 18 6:38 | | | | | | PM PST | | | | +-------+ +--------+---+---+ +---+---+ | | | +---+---+ + +-------+ +-------+---+---+ | furosemide (LASIX) tablet 80 mg | Given | 09/11/20 | 80 mg | | | | 80 mg, Oral, DAILY, First dose | | 18 9:27 | | | | | on 09/06/18 at 0900 | | AM PST | | | | + +-------+ +-------+---+---+ +-------+ +-------+---+---+ | Given | 09/10/20 | 80 mg | | | | | 18 9:00 | | | | | | AM PST | | | | +-------+ +-------+---+---+ | Given | 09/09/20 | 80 mg | | | | | 18 9:31 | | | | | | AM PST | | | | +-------+ +-------+---+---+ +---+---+ | | | +---+---+ + +-------+ + +---+---+ | HYDROcodone-acetaminophen | Given | 09/10/20 | 1 tablet | | | | (NORCO) 5-325 mg per tablet 1 | | 18 1:14 | | | | | tablet 1 tablet, Oral, EVERY 4 | | AM PST | | | | | HOURS PRN, Pain, Moderate Pain, | | | | | | | Starting Sakina 09/05/18 at 2155, If | | | | | | | ineffective use [place] 10/325 if | | | | | | | ordered. If not tolerated, use | | | | | | | Percocet then Oxycodone if | | | | | | | ordered., | | | | | | + +-------+ + +---+---+ +---+---+ | | | +---+---+ + +-------+ +---------+---+ + | insulin lispro (humaLOG | Given | 09/08/20 | 2 Units | | Abdomen- | | KWIKPEN) injection (pen) 0-12 | | 18 12:06 | | | RLQ | | Units 0-12 Units, Subcutaneous, | | PM PST | | | | | 4 TIMES DAILY WITH MEALS & | | | | | | | NIGHTLY, First dose on Sakina | | | | | | | 09/05/18 at 2215, CORRECTION | | | | | | | SCALE: Blood Glucose (BG) < | | | | | | | 150: None BG | | | | | | | 150-200: DAY: 2 units. NIGHT: | | | | | | | 0 units BG 201-250: DAY: 4 | | | | | | | units. NIGHT: 2 units BG | | | | | | | 251-300: DAY: 6 units. NIGHT: | | | | | | | 4 units BG 301-350: DAY: 8 | | | | | | | units. NIGHT: 6 units BG | | | | | | | 351-400: DAY: 10 units. NIGHT: 8 | | | | | | | units BG > 400 : DAY: 12 | | | | | | | units. NIGHT: 10 units | | | | | | | AND CALL PROVIDER | | | | | | | , Use DAY DOSE for doses | | | | | | | scheduled: AC, NPO, Daytime | | | | | | | 7530-3359 Use NIGHT DOSE for | | | | | | | doses scheduled: HS, 3AM, | | | | | | | Nighttime 6253-8850, | | | | | | + +-------+ +---------+---+ + +-------+ +---------+---+ + | Given | 1130/20 | 2 Units | | Abdomen- | | | 18 9:30 | | | LLQ | | | AM PST | | | | +-------+ +---------+---+ + +---+---+ | | | +---+---+ + +-------+ +-------+---+---+ | metoprolol tartrate (LOPRESSOR) | Given | 09/11/20 | 25 mg | | | | tablet 25 mg 25 mg, Oral, 2 | | 18 9:27 | | | | | TIMES DAILY, First dose on Sun | | AM PST | | | | | 09/08/18 at 1530 | | | | | | + +-------+ +-------+---+---+ +-------+ +-------+---+---+ | Given | 09/10/20 | 25 mg | | | | | 18 8:53 | | | | | | PM PST | | | | +-------+ +-------+---+---+ | Given | 09/09/20 | 25 mg | | | | | 18 9:23 | | | | | | PM PST | | | | +-------+ +-------+---+---+ +---+---+ | | | +---+---+ + +-------+ +-------+---+---+ | pantoprazole (PROTONIX) DR | Given | 09/11/20 | 40 mg | | | | tablet 40 mg 40 mg, Oral, DAILY | | 18 7:05 | | | | | BEFORE BREAKFAST, First dose on | | AM PST | | | | | Sun09/06/18 at 0700, Indication: | | | | | | | GERD | | | | | | + +-------+ +-------+---+---+ +-------+ +-------+---+---+ | Given | 09/10/20 | 40 mg | | | | | 18 6:45 | | | | | | AM PST | | | | +-------+ +-------+---+---+ | Given | 09/09/20 | 40 mg | | | | | 18 6:39 | | | | | | AM PST | | | | +-------+ +-------+---+---+ +---+---+ | | | +---+---+ + +-------+ + +---+---+ | renal multivitamin (DIALYVITE, | Given | 09/11/20 | 1 tablet | | | | [facility] tablet 1 tablet 1 | | 18 9:25 | | | | | tablet, Oral, DAILY, First dose | | AM PST | | | | | on Sun09/06/18 at 0900 | | | | | | + +-------+ + +---+---+ +-------+ + +---+---+ | Given | 09/10/20 | 1 tablet | | | | | 18 8:58 | | | | | | AM PST | | | | +-------+ + +---+---+ | Given | 09/09/20 | 1 tablet | | | | | 18 9:31 | | | | | | AM PST | | | | +-------+ + +---+---+ +---+---+ | | | +---+---+ + +-------+ +--------+---+ + | ropivacaine (NAROPIN) 5 mg/mL | Given | 09/07/20 | 20 mLs | | Surgical | | (0.5%) injection PRN, Starting | | 18 10:00 | | | Site | | 09/07/18 at 1000, Intra-op | | AM PST | | | | + +-------+ +--------+---+ + +---+---+ | | | +---+---+ + +-------+ +-------+---+---+ | rosuvastatin (CRESTOR) tablet | Given | 09/11/20 | 20 mg | | | | 20 mg 20 mg, Oral, DAILY, First | | 18 9:27 | | | | | dose on Sun09/06/18 at 0900 | | AM PST | | | | + +-------+ +-------+---+---+ +-------+ +-------+---+---+ | Given | 09/10/20 | 20 mg | | | | | 18 9:00 | | | | | | AM PST | | | | +-------+ +-------+---+---+ | Given | 09/09/20 | 20 mg | | | | | 18 9:31 | | | | | | AM PST | | | | +-------+ +-------+---+---+ +---+---+ | | | +---+---+ + +-------+ +-------+---+---+ | SITagliptin (JANUVIA) tablet 25 | Given | 09/11/20 | 25 mg | | | | mg 25 mg, Oral, DAILY BEFORE | | 18 7:05 | | | | | BREAKFAST, First dose on Sun | | AM PST | | | | | 09/06/18 at 0700 | | | | | | + +-------+ +-------+---+---+ +-------+ +-------+---+---+ | Given | 09/10/20 | 25 mg | | | | | 18 6:45 | | | | | | AM PST | | | | +-------+ +-------+---+---+ | Given | 09/09/20 | 25 mg | | | | | 18 6:39 | | | | | | AM PST | | | | +-------+ +-------+---+---+ + +---+ | | | + +---+ | vancomycin per pharmacy | | | PHARMACY CONSULT, Starting Sakina | | | 09/05/18 at 1742, Indications: | | | Cellulitis, Dialysis patient | | + +---+ | | | + +---+ documented in this encounter
--- OUTSIDE RECORDS SUMMARY | ~2020-03-04 | XMS | Encounter Summary ---
Demographics + + + | Address | [address] | | | [place] [address] | + + + | Home Phone | | + + + | Preferred Language | Unknown | + + + | Marital Status | | + + + | Voodoo Affiliation | 1041 | + + + | Race | Unknown | + + + | Ethnic Group | Unknown | + + + Author + + + | Author | [facility] | | | and [place] | + + + | Organization | 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 Name | Role | Phone | + [...] Closed | | Nephrology | Diagnoses | [place], | [place], | | | | | End stage | Cristina Vargas, | Uche Pena DO | | | | | renal | PA-C 0 | [address] | | | | | disease | [address] | [place], [address] | | | | | ([facility]) | [place] | [address] | | | | | Procedures | [address] | [place] | | | | | [place] OFFICE | [facility] | [address] Phone: | | | | | OUTPATIENT | [place] | [phone] | | | | | VISIT 25 | [address] | Fax: | | | | | MINUTES | Phone: | [phone] | | | | | dialysis | [phone] | | | | | | | Fax: | | | | | | | [phone] | | +--------+--------+ + + + + Encounter Details +--------+ + + + + | Date | Type | Department | Care Team | Description | +--------+ + + + + | 01/29/ | Off-Site | [facility] | Uche Orozco | End stage renal | | 2017 | Visit | NEPHROLOGY [address] | M, DO [address] | disease (HCC) | | | | [address] | [place] | (Primary Dx) | | | | [place] | [place] | | | | | [address] | [address] | | | | | [phone] | | | +--------+ + + + [...] + + + | Blood Pressure | 139/80 | 03/04/2017 4:50 PM | | | | | PDT | | + + + + + | Pulse | - | - | | + + + + + | Temperature | 36.7 C (98 F) | 03/04/2017 4:50 PM | | | | | PDT [...] encounter Progress Notes Uche Orozco DO - 01/29/2017 9:30 AM PDT Subjective: [facility] Patient ID: Celso Caro is a 57 y.o. male. HPI Comments: Monthly dialysis visit for this 56 YO male with ESRD secondar y to diabetic nephropathy, who is seen on HD with QB 500 at his Left arm AVF. He had an inf iltration last week, and had only 2 txs. He experienced some dyspnea, between txs. His A VF is working well today, with some medial biceps ecchymosis. He also has a History of T2DM, requiring insulin, anemia secondary to CKD, hyperlipidemia, and Hepatitis C. I note that somehow his Sensipar has been DC'd in the last 9 mo. His PTH is still elevated . Outpatient Prescriptions Marked as Taking for the 01/29/17 encounter (Off-Site Visit) with Jean Orozco DO Medication Sig Dispense Refill atorvaSTATin (LIPITOR) 20 mg tablet Take 1 tablet by mouth Daily. 30 tablet 5 B Cpvynja-Z-Temfg Acid (OLEG-TEQUILA RX) 1 MG TABS Take 1 mg by mouth Daily. 30 each 11 calcium acetate (PHOSLO) 667 mg capsule Take 1,334 mg by mouth 3 times daily (with meal s). cinacalcet (SENSIPAR) 60 MG tablet Take 1 tablet by mouth Daily. 30 tablet doxercalciferol (HECTOROL) 2 mcg/mL injection Inject 6 mcg into the vein Three times a week. epoetin padilla (EPOGEN,PROCRIT) 3,000 units/mL injection Inject 8,000 Units under the ski n Three times a week. glimepiride (AMARYL) 1 mg tablet Take 1 mg by mouth every morning (before breakfast). insulin glargine (LANTUS) 100 units/mL injection (vial) Inject 110 Units under the skin nightly. 33 mL 11 lisinopril (PRINIVIL,ZESTRIL) 40 MG tablet Take 40 mg by mouth Daily. metoprolol (TOPROL-XL) 100 MG 24 hr tablet Take 100 mg by mouth Daily. omeprazole (PRILOSEC) 20 mg capsule Take 20 mg by mouth every morning (before breakfast ). sitaGLIPtin (JANUVIA) 100 mg tablet Take 25 mg by mouth Daily. Allergies Allergen Reactions Amlodipine Besylate Unknown Metformin Diarrhea Objective: Blood pressure 139/80, temperature 36.7 C (98 F). EDW 122 kg Physical Exam Heart: Regular rate and rhythm with no S3, S4, murmur or rub. Lungs: CTA bilaterally. No rales or wheezes. Abdomen: Soft, flat, nontender, normoactive bowel sounds. Extremities: No clubbing, cyanosis, or edema. LAB: BUN 54, Cr 10.4, K+ 5.3, HCO3 23, Ca++ 8.8, phosphorus 6.4, PTH 1148, albumin 3.8 , H b 10.2, eKT/V = 1.30 . Assessment: 1. ESRD-- he appears well dialyzed by the most recent KT/V. 2. Hypertension-- [facility], [place], [place]; the BP appears well controlled from review of the most recent treatment data in [facility] E[facility]. 3. Anemia secondary to CKD-- he appears to be responding well to the EPO algorithm. Will recheck his iron profile next month. 4. SHPTH-- unfortunately, his PTH is markedly elevated. He has been working closely on hi s phosphorus restriction. Will continue the Sensipar to improve the serum PTH 5. Nutrition--his appetite is excellent. 6. Type 2 DM-- need to recheck his HbA1c. 7. Hepatitis C--transaminases have been stable . 8. Hyperlipidemia--on statin Rx. 9. Transplantation--work up in progress. Plan: 1. Will recheck his PTH monthly. Also need to recheck his HbA1c, iron profile next month. 2. Will increase the Hectorol to 6 g every treatment. Also he is taking his Sensipar he relates. 3. His blood pressure and CHF symptoms appear stable at his current dry weight. 4. Will recheck him in 2 weeks. : [facility] Monica Cornejo MD documented in thi s encounter Plan of Treatment Not on filedocumented as of this encounter Visit Diagnoses + + | Diagnosis | + + | End stage renal disease (HCC) - Primary End stage renal disease | + + documented in this encounter"
--- OUTSIDE RECORDS SUMMARY | ~2020-03-04 | XMS | Encounter Summary ---
Demographics + + + | Address | [address] | | | [place] [address] | + + + | Home Phone | | + + + | Preferred Language | Unknown | + + + | Marital Status | | + + + | Zoroastrianism Affiliation | 1041 | + + + | Race | Unknown | + + + | Ethnic Group | Unknown | + + + Author + + + | Author | [facility] | | | and [place] | + + + | Organization | [facility] | | | and [place] | [...] Team Providers + +------+ + | Care Construction Trades Contractor Name | Role | Phone | + [...] | | | disease | [address] | [place], [place] | | | | | ([facility]) | [place] | [address] | | | | | Procedures | [address] | [place] | | | | | [place] OFFICE | [facility] | [address] Phone: | | | | | OUTPATIENT | [place] | [phone] | | | | | VISIT 25 | [address] | Fax: | | | | | MINUTES | Phone: | [phone] | | | | | dialysis | [phone] | | | | | | | Fax: | | | | | | | [phone] | | +--------+--------+ + + + + Encounter Details +--------+ + + + + | Date | Type | Department | Care Team | Description | +--------+ + + + + | 01/30/ | Off-Site | [facility] [place] | Uche Orozco | Essential | | 2016 | Visit | NEPHROLOGY [address] | M, DO [address] | hypertension with | | | | [address] | [place], [place] [address] | goal blood pressure | | | | [place] | [place] | less than 140/90 | | | | [address] | [address] | (Primary Dx); End | | | | [phone] | | stage renal disease | | | | | | (HCC) | +--------+ + + + + Social [...] Progress Notes Uche Orozco DO - 02/01/2016 5:14 PM PDTNEPHROLOGY (Marked declined to come to clinic today. He declined to schedule a makeup treatment, as david mata). : Chao Bruce documented in thi s encounter Plan of Treatment Not on filedocumented as of this encounter Visit Diagnoses + + | Diagnosis | + + | Essential hypertension with goal blood pressure less than 140/90 - Primary | + + | End stage renal disease (HCC) End stage renal disease | + + documented in this encounter"
--- OUTSIDE RECORDS SUMMARY | ~2020-03-04 | XMS | Encounter Summary ---
Demographics + + + | Address | [address] | | | [place] [address] | + + + | Home Phone | | + + + | Preferred Language | Unknown | + + + | Marital Status | | + + + | Mandaen Affiliation | 1041 | + + + | Race | Unknown | + + + | Ethnic Group | Unknown | + + + Author + + + | Author | [facility] | | | and [place] | + + + | Organization | [facility] | | | and [...] Team Providers + +------+ + | Care Shotweld Operator Name | Role | Phone | + +------+ + PCP | Unavailable | + +------+ + Encounter Details +--------+ + + + + | Date | Type | Department | Care Team | Description | +--------+ + + + + | 10/25/ | Abstract | [facility] [place] | [place], | Chronic kidney | | 2013 | | NEPHROLOGY [address] | [place] [address] | disease (CKD), stage | | | | [address] | [address], [place] | V ([facility]) (Primary | | | | [place], [place] | [address] [place], [place] | Dx); Unspecified | | | | [address] | [address] | hypertensive kidney | | | | [phone] | | disease with chronic | | [...] | Chronic kidney disease (CKD), stage V ([facility]) - Primary Chronic kidney disease, Stage V | + + | Unspecified hypertensive kidney disease with chronic kidney disease stage I through | | stage IV, or unspecified(403.90) Unspecified hypertensive kidney disease with chronic | | kidney disease stage I through stage IV, or unspecified | + + documented in this encounter"
--- OUTSIDE RECORDS SUMMARY | ~2020-03-04 | XMS | Encounter Summary ---
Demographics + + + | Address | [address] | | | [place] [address] | + + + | Home Phone [...] + | Organization | [facility] | | | and [...] Team Providers + +------+ + | Care Criminology Professor Name | Role | Phone | + [...] | | kidney | [address] | [place], [place] | | | | | disease) | [place] | [address] | | | | | stage 5, GFR | [address] | [place] | | | | | less than | Phone: | [phone] Phone: | | | | | 15 ml/min | [phone] | [phone] | | | | | ([facility]) | Fax: | Fax: | | | | | Procedures | [phone] | [phone] | | | | | CATHETER | [...] | [address] | [place], [address] | Dx); Unspecified | | | | [place] | [place] | hypertensive kidney | | | | [address] | [address] | disease with chronic | | | | [phone] | | kidney disease | | | [...]
--- OUTSIDE RECORDS SUMMARY | ~2020-03-04 | XMS | Encounter Summary ---
Demographics + + + | Address | [address] | | | [place] [address] | + + + | Home Phone | | + + + | Preferred Language | Unknown | + + + | Marital Status | | + + + | Yarsanism Affiliation | 1041 | + + + | Race | Unknown | + + + | Ethnic Group | Unknown | + + + Author + + + | Author | [facility] | | | and [place] | + + + | Organization | [facility] | | | and [place] [...] Team Providers + +------+ + | Care Glazier Metal Furniture Name | Role | Phone | + [...] | [address] | [place], [address] | | | | | [place] | [place] | | | | | [address] | [address] | | | | | [phone] | | | +--------+ + + + [...] is seen on outpatient HD at the [facility], [place]. He also has T2DM, requiring insulin, anemia [...] by mouth Daily. 30 tablet 5 B Odgixor-C-Awtii Acid (OLEG-TEQUILA RX) 1 MG TABS Take [...] in 2 weeks. CC: Artem Angelo MD [facility] documented in thi s encounter Plan of Treatment Not on filedocumented as of this encounter Visit Diagnoses + + | Diagnosis | + + | End stage renal disease (HCC) - Primary End stage renal disease | + + | Type II or unspecified type diabetes mellitus with renal manifestations, | | uncontrolled(250.42) ([facility]) Type II or unspecified type diabetes mellitus with renal | | manifestations, uncontrolled | + + | Secondary hyperparathyroidism (of renal origin) | + + documented in this encounter
--- OUTSIDE RECORDS SUMMARY | ~2020-03-04 | XMS | Encounter Summary ---
Demographics + + + | Address | [address] | | | [place] [address] | + + + | Home Phone | | + + + | Preferred Language | Unknown | + + + | Marital Status | | + + + | Tenriism Affiliation | 1041 | + + + | Race | Unknown | + + + | Ethnic Group | Unknown | + + + Author + + + | Author | [facility] | | | and [place] | + + + | Organization | [facility] | | | and [place] [...] Team Providers + +------+ + | Care Orthopedic Shoes Salesperson Name | Role | Phone | + +------+ + PCP | Unavailable | + +------+ + Reason for Referral Surgical (Routine) +--------+ + + + + + | Status | Reason | Specialty | Diagnoses / | Referred By | Referred To | | | | | Procedures | Contact | Contact | +--------+ + + + + + | Closed | Specialty | Surgery / | Diagnoses | [facility] | | | Services | General | Chronic | General | General | | | Required | Surgery | kidney | Surgery [address] | | | | | disease, | [address] | [address] | | | | | stage V | [place], | [place], | | | | | ([facility]) | [place] | [place] [address] | | | | | Procedures | [address] | Phone: | | | | | INSERT | Phone: | [phone] | | | | | TUNNELED CV | [phone] | Fax: | | | | | CATH W/O | Fax: | [phone] | | | | | PORT OR PUMP | [phone] | | +--------+ + + + + + Reason for Visit +--------+ + | Reason | Comments | +--------+ + | Other | PD Cath Removal | +--------+ + Encounter Details +--------+ + + + + | Date | Type | Department | Care Team | Description | +--------+ + + + + | 06/30/ | Telephone | [facility] | Lexi Stratton RN | Other (PD Cath | | 2012 | | SURGERY [address] | | Removal) | | | | [address] [place] | | | | | | [address] | | | | | | [phone] | | | +--------+ + + + [...] as of this encounter Plan of Treatment + + +--------+ + + | Name | Type | Priori | Associated Diagnoses | Order Schedule | | | | ty | | | + + +--------+ + + | Ambulatory referral | Outpatient | Routin | Chronic kidney | Ordered: 06/30/2013 | | to General Surgery | Referral | e | disease, stage V | | | | | | (HCC) | | + + +--------+ + + documented as of this encounter Visit Diagnoses + + | Diagnosis | + + | Chronic kidney disease, stage V (HCC) - Primary Chronic kidney disease, Stage V | + + documented in this encounter"
--- OUTSIDE RECORDS SUMMARY | ~2020-03-04 | XMS | Encounter Summary ---
Demographics + + + | Address | [address] | | | [place] [address] | + + + | Home Phone | | + + + | Preferred Language | Unknown | + + + | Marital Status | | + + + | Alevism Affiliation | 1041 | + + + | Race | Unknown | + + + | Ethnic Group | Unknown | + + + Author + + + | Author | [facility] | | | and [place] | + + + | Organization | [facility] | | | and [...] Team Providers + +------+ + | Care Charge Hand Name | Role | Phone | + +------+ + PCP | Unavailable | + +------+ + Encounter Details +--------+ + + + + | Date | Type | Department | Care Team | Description | +--------+ + + + + | 06/12/ | Abstract | [facility] [place] | Emmanuelthalrenetta, | | | 2012 | | NEPHROLOGY [address] | [place], [address] | | | | | [address] | [address], [place] | | | | | [place] | [address] [place] | | | | | [address] | [address] | | | | | [phone] | | | +--------+ + + + [...]
--- OUTSIDE RECORDS SUMMARY | ~2020-03-04 | XMS | Encounter Summary ---
Demographics + + + | Address | [address] | | | [place] [address] | + + + | Home Phone [...] Organization | [facility] | | [...] Team Providers + +------+ + | Care Licensed Surveyor Name | Role | Phone | + +------+ + PCP | Unavailable | + +------+ + Encounter Details +--------+ + + + + | Date | Type | Department | Care Team | Description | +--------+ + + + + | 04/03/ | Off-Site | [facility] [place] | Uche Orozco | End stage renal | | 2016 | Visit | NEPHROLOGY [address] | M, DO [address] | disease (HCC) | | | | [address] | [place], [address] | (Primary Dx) | | | | [place], [place] | [place] | | | | | [address] | [address] | | | | | [phone] | | | +--------+ + + + [...] + + + | Blood Pressure | 155/80 | 04/03/2016 5:30 PM | | | | | PDT | | + + + + + | Pulse | - | - | | + + + + + | Temperature | 36.2 C (97.2 F) | 04/03/2016 5:30 PM | | | | | PDT [...] encounter Progress Notes Uche Orozco DO - 04/30/2016 5:31 PM PDT [facility] Patient ID: Celso Caro is a 56 y.o. male. HPI Comments: Monthly dialysis visit for this 55 YO male with ESRD secondar y to diabetic nephropathy, who is seen on outpatient HD, at the [facility] . He also has T2DM, requiring insulin, anemia secondary to CKD, hyperlipidemia, and Hepatit is C. Outpatient Prescriptions Marked as Taking for the 04/03/16 encounter (Off-Site Visit) with Jean Orozco DO Medication Sig Dispense Refill aspirin 81 mg EC tablet Take 81 mg by mouth Daily. atorvaSTATin (LIPITOR) 20 mg tablet Take 1 tablet by mouth Daily. 30 tablet 5 B Bfdpbhk-S-Daebp Acid (OLEG-TEQUILA RX) 1 MG TABS Take 1 mg by mouth Daily. 30 each 11 Cholecalciferol (VITAMIN D3) 5000 UNITS CAPS Take 2,000 Units by mouth Daily. cinacalcet (SENSIPAR) 30 mg tablet Take 1 tablet by mouth Daily. 90 tablet 4 doxercalciferol (HECTOROL) 2 mcg/mL injection Inject into the vein Three times a week. [DISCONTINUED] epoetin padilla (EPOGEN, PROCRIT) 10,000 units/mL injection Inject 3,000 Un its into the vein Three times a week. furosemide (LASIX) 40 mg tablet Take 80 mg by mouth Daily. glimepiride (AMARYL) 1 mg tablet Take 1 mg by mouth every morning (before breakfast). insulin aspart (NOVOLOG FLEXPEN) 100 units/mL injection pen Inject 2-12 Units under the skin 4 times daily (before meals and nightly). 15 mL 11 insulin glargine (LANTUS) 100 units/mL injection (vial) Inject 110 Units under the skin nightly. 33 mL 11 Iron Sucrose (VENOFER IV) 50 mg by IV Push route Once a week. lisinopril (PRINIVIL,ZESTRIL) 40 MG tablet Take 40 mg by mouth Daily. metoprolol (TOPROL-XL) 100 MG 24 hr tablet Take 100 mg by mouth Daily. sevelamer carbonate (RENVELA) 800 mg tablet Take 2 tablets by mouth 3 times daily (with meals). And snacks 300 tablet 6 sildenafil (VIAGRA) 100 MG tablet Take 0.5 tablets by mouth as needed for Erectile Dysf unction. Take one-half to one tablet by mouth prior to sexual activity 10 tablet 10 sitaGLIPtin (JANUVIA) 100 mg tablet Take 25 mg by mouth Daily. Allergies Allergen Reactions Amlodipine Besylate Unknown Metformin Diarrhea Objective: Blood pressure 155/80, temperature 36.2 C (97.2 F). EDW 122 kg Physical Exam Heart: Regular rate and rhythm with no S3, S4, murmur or rub. Lungs: CTA bilaterally. No rales or wheezes. Abdomen: Soft, flat, nontender, normoactive bowel sounds. Extremities: No clubbing, cyanosis, or edema. LAB: BUN 61, Cr 12.2, K+ 5.9, HCO3 20, Ca++ 7.8, phosphorus 8.9, albumin 3.9, PTH 894, Hb 11.3, eKT/V = 1.27. Assessment: 1. ESRD--he appears well dialyzed on his current Rx. 2. Hypertension--good control from review of his treatment data in [place]. 3. Anemia secondary to CKD--he appears to have a Good response to EPO. Currently is on hold until the Hb <11.0 g/dl. Will recheck his iron profile next month. 4. SHPTH--appears to have worsening phosphorus control. I discussed with Herman about limit ing his intake of high phosphorus foods. I reviewed with him features of a <1000 mg phosp horus restriction. 5. Nutrition--stable.. 6. Type 2 DM-. Will recheck his HbA1c next month. 7. Hepatitis C--transaminases have been stable . 8. Hyperlipidemia--Will recheck the lipid profile next quarter. 9. Transplantation--work up in progress. Plan: 1. Will Recheck his iron profile, PTH, and HbA1c next month. 2. Monthly lab was reviewed with the patient. 3. I emphasized to Herman to try to time his [place] exactly AC&HS to help assist with his h yperphosphatemia. Will recheck him in 2 weeks. 4. He currently is on Sensipar. If the PTH doesn't improve may need to consider increasin g the dose to 60 mg daily? [facility] by Uche Orozco DO at 5:39 PM PDTdocumented in this encounter Plan of Treatment Not on filedocumented as of this encounter Visit Diagnoses + + | Diagnosis | + + | End stage renal disease (HCC) - Primary End stage renal disease | + + documented in this encounter"
--- OUTSIDE RECORDS SUMMARY | ~2020-03-04 | XMS | Encounter Summary ---
Demographics + + + | Address | [address] | | | [place] [address] | + + + | Home Phone | | + + + | Preferred Language | Unknown | + + + | Marital Status | | + + + | Mosque Affiliation | 1041 | + + + | Race | Unknown | + + + | Ethnic Group | Unknown | + + + Author + + + | Author | and [facility] | | | and [place] | + + + | Organization | [facility] | | | and [place] [...] Team Providers + +------+ + | Care Master Fire Control Technician Name | Role | Phone | + +------+ + PCP | Unavailable | + +------+ + Reason for Visit Evaluate & Treat (Routine) + +--------+ + + + + | Status | Reason | Specialty | Diagnoses / | Referred By | Referred To | | | | | Procedures | Contact | Contact | + +--------+ + + + + | Authorized | | Nephrology | Diagnoses | Stacie, | Ernesto, | | | | | End stage | Cristina aVrgas, | Uche Pena DO | | | | | renal | PA-C [address] | [address] | | | | | disease | [address] | [place], [place] | | | | | ([facility]) | [place] | [address] [facility] | | | | | Procedures | [address] | [place] | | | | | [place] ESRD | [place], | [address] Phone: | | | | | RELATED SVC | [place] | [phone] | | | | | MONTHLY | [address] | Fax: | | | | | 20&/> YR OLD | Phone: | [phone] | | | | | 4/> VISITS | [phone] | | | | | | dialysis | Fax: | | | | | | | [phone] | | + +--------+ + + + + Encounter Details +--------+ + + + + | Date | Type | Department | Care Team | Description | +--------+ + + + + | 11/25/ | Off-Site | [facility] [place] | Uche Orozco | End stage renal | | 2019 | Visit | NEPHROLOGY [address] | M, DO [address] | disease (HCC) | | | | [address] | [place], [address] | (Primary Dx) | | | | [place], [place] | [place] | | | | | [address] | [address] | | | | | [phone] | | | +--------+ + + + [...] + + + | Blood Pressure | 137/84 | 11/25/2018 6:08 PM | | | | | PST | | + + + + + | Pulse | - | - | | + + + + + | Temperature | 36.7 C (98.1 F) | 11/25/2018 6:08 PM | | | | | PST [...] encounter Progress Notes Uche Orozco DO - 11/25/2018 9:15 AM PST Subjective: [facility] DIALYSIS NOTE Patient ID: Celso Caro is a 58 y.o. male. HPI: Post hospital follow-up for this pleasant 58 YO male who was discharg ed from [facility] on IV ceftazidime/bank via PICC line on 09/11/2018. He had deep seated foot in fection of the foot on MRI. He underwent open I and D) washout by Dr. Schuster on 09/07/2013. He denies any increased pain, discharge or foot tenderness. He also has PMH of T2DM, requiring insulin, anemia secondary to CKD, hyperlipidemia, and SHPTH, and Hepatitis C. Outpatient Prescriptions Marked as Taking for the 11/25/18 encounter (Off-Site Visit) with Jean Orozco DO Medication Sig Dispense Refill apixaban (ELIQUIS) 2.5 mg tablet Take 1 tablet by mouth 2 times daily. 60 tablet B Nwwdoih-O-Ftgam Acid (OLEG-TEQUILA RX) 1 MG TABS Take 1 mg by mouth Daily. 30 each 11 Cholecalciferol (VITAMIN D3) 5000 UNITS CAPS Take 5,000 Units by mouth Daily. cinacalcet (SENSIPAR) 60 MG tablet Take 1 tablet by mouth Daily. 30 tablet doxercalciferol (HECTOROL) 2 mcg/mL injection Inject 10 mcg into the vein Three times a week. epoetin padilla (EPOGEN, PROCRIT) 10,000 units/mL injection Inject 6,800 Units into the ve in Three times a week. furosemide (LASIX) 80 mg tablet Take 80 mg by mouth Daily. HYDROcodone-acetaminophen (NORCO) 5-325 mg per tablet Take 1 tablet by mouth every 12 h ours as needed for Pain. 40 tablet 0 Hypromellose (ARTIFICIAL TEARS OP) Place 1 drop into both eyes Daily as needed (dry eye s). insulin glargine (LANTUS) 100 units/mL injection (vial) Inject 55 Units under the skin 2 times daily. metoprolol succinate (TOPROL-XL) 100 mg ER tablet Take 0.5 tablets by mouth Daily. 30 t ablet omeprazole (PRILOSEC) 20 mg capsule Take 20 mg by mouth Daily as needed (for stomach). rosuvastatin (CRESTOR) 20 mg tablet Take 20 mg by mouth Daily. sucroferric oxyhydroxide (VELPHORO) 500 mg chewable tablet Take 1 tablet by mouth 4 kwabena es daily (before meals and nightly). [DISCONTINUED] vancomycin IVPB 1 g Inject 1 g into the vein Twice a week. Q Sun and Sun day, after HD, by Brandee, through 10/18/18. Indications: Acute Bone Infection that May Spread to the Bone Marrow, Purulent Skin and Soft Tissue Infection Allergies Allergen Reactions Amlodipine Besylate Unknown Fenofibrate Acidosis Metformin Diarrhea Objective: BP 137/84 | Temp 36.7 C (98.1 F) EDW 119 kg Physical Exam Heart: Regular rate and rhythm with no S3, S4, murmur or rub. Lungs: CTA in all valle. No rales or wheezes. Abdomen: Soft, flat, nontender, normoactive bowel sounds. Extremities: 1+ edema, no rash, AVF at left arm is clear and dry. LAB: BUN 52, Cr 7.5, K+ 5.0, HCO3 25, albumin 3.7, HbA1c 6.85% , Ca++ 9.0, P04 6.3, PTH 52 3, Hb 11.8, TSat 26%, ferritin 665, spKT/V = 1.23. Assessment: 1. ESRD--he appears well dialyzed clinically on the current Rx. His AVF appears to be fun ctioning well at this time. 2. Hypertension-- good control at the current dry weight. 3. Anemia secondary to CKD-- Will need to hold the Mircera until the Hb is < 11.0 g/dl, wh ile rechecking the Hb weekly. His T. Sat. appears adequate for erythropoiesis. 4. Nutrition-- serum albumin is improving with resolution of the infection. his appetite is robust on his current Rx. 5. CKD/MBD-- I reinforced the need to take Renvela exactly AC and HS, to optimize his phos phorus control. the PTH is stable on his current dose of Hectorol. 6. Type 2 DM-- good control. 7. Hepatitis C--clinically in remission . 8. Hyperlipidemia--on statin Rx. 9. Transplantation--this will need to be on hold until his foot infection is cleared up. He appears to understand this. 10. Deep seated infection with osteomyelitis, left foot, S/P I&D 09/07/2018-- clinically ap pears resolved. Plan: 1. His foot tenderness, incision appear to be greatly improved per the patient. He is and living better. I greatly appreciate Dr. Schuster's help. 2. Monthly lab was reviewed with the patient. 3. His Hb appears stable on the current EPO anemia algorithm. : [facility] Toby Schuster DPM documented in thi s encounter Plan of Treatment Not on filedocumented as of this encounter Visit Diagnoses + + | Diagnosis | + + | End stage renal disease (HCC) - Primary End stage renal disease | + + documented in this encounter Additional Health Concerns + + + + | Infection | Noted Time | Resolved Time | + + + + | Methicillin-resistant Staphylococcus aureus | 11/11/2018 2:03 PM | 12/30/2019 12:36 PM | | | PST | PDT | + + + + documented as of this encounter"
--- OUTSIDE RECORDS SUMMARY | ~2020-03-04 | XMS | Encounter Summary ---
Demographics + + + | Address | [address] | | | [place] [address] | + + + | Home Phone | | + + + | Preferred Language | Unknown | + + + | Marital Status | | + + + | Yazidism Affiliation | 1041 | + + + | Race | Unknown | + + + | Ethnic Group | Unknown | + + + Author + + + | Author | [facility] | | | and [place] | + + + | Organization | [facility] | | | and [place] [...] Team Providers + +------+ + | Care Bar Attendant Name | Role | Phone | + [...] | | | disease | NW | [place], [place] | | | | | ([facility]) | [place] | [address] | | | | | Procedures | [address] | [place] | | | | | [place] OFFICE | [facility] | [address] Phone: | | | | | OUTPATIENT | [place] | [phone] | | | | | VISIT 25 | [address] | Fax: | | | | | MINUTES | Phone: | [phone] | | | | | dialysis | [phone] | | | | | | | Fax: | | | | | | | [phone] | | +--------+--------+ + + + + Encounter Details +--------+ + + + + | Date | Type | Department | Care Team | Description | +--------+ + + + + | 08/05/ | Off-Site | [facility] | Uche Orozco | End stage renal | | 2018 | Visit | NEPHROLOGY [address] | M, DO [address] | disease (HCC) | | | | [address] | [place] | (Primary Dx) | | | | [place] | [place] | | | | | [address] | [address] | | | | | [phone] | | | +--------+ + + + [...] + + + | Blood Pressure | 148/77 | 08/05/2018 4:09 PM | | | | | PDT | | + + + + + | Pulse | - | - | | + + + + + | Temperature | 36.1 C (97 F) | 08/05/2018 4:09 PM | | | | | PDT [...] encounter Progress Notes Uche Orozco DO - 08/05/2018 1:30 PM PDT Subjective: [facility] DIALYSIS NOTE Patient ID: Celso Caro is a 58 y.o. male. HPI: Monthly dialysis visit for this very pleasant 58 YO male on outpatient hemodialysis. He is very cooperative with his treatments. He denies anorexia, pruritus, o r dyspnea on exertion. He also has PMH of T2DM, requiring insulin, anemia secondary to CKD, hyperlipidemia, and SHPTH, and Hepatitis C. Outpatient Prescriptions Marked as Taking for the 08/05/18 encounter (Off-Site Visit) with Uche Orozco DO Medication Sig Dispense Refill aspirin 81 mg EC tablet Take 81 mg by mouth Daily. B Gkcbdyw-S-Loskj Acid (OLEG-TEQUILA RX) 1 MG TABS Take 1 mg by mouth Daily. 30 each 11 Cholecalciferol (VITAMIN D3) 5000 UNITS CAPS Take 2,000 Units by mouth Daily. cinacalcet (SENSIPAR) 60 MG tablet Take 1 tablet by mouth Daily. 30 tablet doxercalciferol (HECTOROL) 2 mcg/mL injection Inject 13 mcg into the vein Three times a week. epoetin padilla (EPOGEN,PROCRIT) 3,000 units/mL injection Inject 3,200 Units under the ski n Three times a week. furosemide (LASIX) 80 [...] by mouth every morning (before breakfast ). rosuvastatin (CRESTOR) 20 mg tablet Take 20 mg by mouth Daily. sitaGLIPtin (JANUVIA) 100 mg tablet Take 25 mg by mouth Daily. sucroferric oxyhydroxide (VELPHORO) 500 mg chewable tablet Take 1 tablet by mouth 4 kwabena es daily (before meals and nightly). Allergies Allergen Reactions Amlodipine Besylate Unknown Metformin Diarrhea Objective: BP 148/77 | Temp 36.1 C (97 F) EDW 118.5 kg Physical Exam Heart: Regular rate and rhythm with no S3, S4, murmur or rub. Lungs: CTA in all valle. No rales or wheezes. Abdomen: Soft, flat, nontender, normoactive bowel sounds. Extremities: 1+ edema, no rash, AVF at left arm is clear and dry. LAB: BUN 48, Cr 8.82, K+ 4.9, HCO3 28, Ca++ 9.2 P04 6.8, PTH 589, Hb 10.8, TSat = 22%, fe rritin 686, spKT/V = 1.53. Assessment: 1. ESRD-- he appears well dialyzed clinically by the most recent spKT/V. 2. Hypertension-- good control from review his treatment data. I think this is close to h is physiologic dry weight? 3. Anemia secondary to CKD-- he appears to be responding very well to a minimal dose of E PO. His iron stores appear adequate. 4. Nutrition-- his appetite is very good. He's been eating moderate amount of steak. 5. CKD/MBD-- PTH has been trending downward. He appears to understand better to take Renv gilda exactly AC&HS with meals. 6. Type 2 DM-- Need to recheck his quarterly HbA1c . He states that current home BG are <160 mg/dl. 7. Hepatitis C--clinically in remission . 8. Hyperlipidemia--on statin Rx. 9. Transplantation--work up in progress. Plan: 1. After discussion with him he appears to be doing all of his prescribed treatments + [facility] multimedia project manager. 2. Monthly lab was reviewed with the patient. 3. Will recheck his A1c, iron profile next month. 4. Monthly lab was reviewed with the patient. : [facility] documented in thi s encounter Plan of Treatment Not on filedocumented as of this encounter Visit Diagnoses + + | Diagnosis | + + | End stage renal disease (HCC) - Primary End stage renal disease | + + documented in this encounter"
--- OUTSIDE RECORDS SUMMARY | ~2020-03-04 | XMS | Encounter Summary ---
Demographics + + + | Address | [address] | | | [place] [address] | + + + | Home Phone | | + + + | Preferred Language | Unknown | + + + | Marital Status | | + + + | Yazidism Affiliation | 1041 | + + + | Race | Unknown | + + + | Ethnic Group | Unknown | + + + Author + + + | Author | [facility] | | | and [place] | + + + | Organization | [facility] | | | and [...] Team Providers + +------+ + | Care Merchandise Executive Name | Role | Phone | + +------+ + PCP | Unavailable | + +------+ + Reason for Visit + + + | Reason | Comments | + + + | Medication Refill | | + + + Encounter Details +--------+--------+ + + + | Date | Type | Department | Care Team | Description | +--------+--------+ + + + | 04/30/ | Refill | [facility] [place] | [place], | Medication Refill | | 2014 | | NEPHROLOGY [address] | Sarai Osei, INFANTRY UNIT LEADER [address] | | | | | [address] | [address], [place] | | | | | [place], [place] | [address] [place], [place] | | | | | [address] | [address] | | | | | [phone] | | | +--------+--------+ + + + Social History + + [...]
--- OUTSIDE RECORDS SUMMARY | ~2020-03-04 | XMS | Encounter Summary ---
Demographics + + + | Address | [address] | | | [place] [address] | + + + | Home Phone | | + + + | Preferred Language | Unknown | + + + | Marital Status | | + + + | Yazidism Affiliation | 1041 | + + + | Race | Unknown | + + + | Ethnic Group | Unknown | + + + Author + + + | Author | [facility] | | | and [place] | + + + | Organization | [facility] | | [...] Team Providers + +------+ + | Care Cardiovascular Lab Director Name | Role | Phone | [...] | | | disease | [address] | [place], [place] | | | | | ([facility]) | [place] | [address] | | | | | Procedures | [address] | [place] | | | | | [place] OFFICE | [facility] | [address] Phone: | | | | | OUTPATIENT | [place] | [phone] | | | | | VISIT 25 | [address] | Fax: | | | | | MINUTES | Phone: | [phone] | | | | | dialysis | [phone] | | | | | | | Fax: | | | | | | | [phone] | | +--------+--------+ + + + + Encounter Details +--------+ + + + + | Date | Type | Department | Care Team | Description | +--------+ + + + + | 03/25/ | Off-Site | [facility] | Uche Orozco | End stage renal | | 2018 | Visit | NEPHROLOGY [address] | M, DO [address] | disease (HCC) | | | | [address] | [place] | (Primary Dx) | | | | [place] | [place] | | | | | [address] | [address] | | | | | [phone] | | | +--------+ + + + [...] + + + | Blood Pressure | 138/71 | 03/25/2018 5:43 PM | | | | | PDT | | + + + + + | Pulse | - | - | | + + + + + | Temperature | 36.6 C (97.9 F) | 03/25/2018 5:43 PM | | | | | PDT [...] encounter Progress Notes Uche Orozco DO - 03/25/2018 9:30 AM PDT Subjective: DAVITA DIALYSIS NOTE [...] Outpatient Prescriptions Marked as Taking for the 03/25/18 encounter (Off-Site Visit) with Jean Orozco DO Medication Sig Dispense Refill aspirin 81 mg EC tablet Take 81 mg by mouth Daily. atorvaSTATin (LIPITOR) 20 mg tablet Take 1 tablet by mouth Daily. 30 tablet 5 B Qufomvb-A-Ajzas Acid (OLEG-TEQUILA RX) 1 MG TABS Take 1 mg by mouth Daily. 30 each 11 Cholecalciferol (VITAMIN D3) 5000 UNITS CAPS Take 2,000 Units by mouth Daily. cinacalcet (SENSIPAR) 60 MG tablet Take 1 tablet by mouth Daily. 30 tablet doxercalciferol (HECTOROL) 2 mcg/mL injection Inject 1 mcg into the vein [...] Amlodipine Besylate Unknown Metformin Diarrhea Objective: BP 138/71 | Temp 36.6 C (97.9 F) EDW 120 kg Physical Exam Heart: Regular rate and rhythm with no S3, S4, murmur or rub. Lungs: Fine rales at RLL, left lung field clear, prolonged expiratory phase, no true wheez es. Abdomen: Soft, flat, nontender, normoactive bowel sounds. Extremities: 1+ edema, no rash, AVF at left arm is clear and dry. LAB: BUN 46, Cr 8.42, K+ 4.8, HCO3 28, Ca++ 8.4, phosphorus 6.9, PTH 609, albumin 3.7, Hb 10.2, spKT/V = 1.34 Assessment: 1. ESRD-- overall he appears stable on 4.5 hours, QB 450, 2K+, thrice weekly 2. Hypertension-- stable at current dose of lisinopril from review of his treatment data in [place]. 3. Anemia secondary to CKD-- his Hb appears stable on the [facility] anemia algorithm. 4. Nutrition--albumin is decreased slightly, however he states that his appetite is excell ent. 5. CKD/MBD-- his PTH is improved from last month. He appears to be doing some better with phosphorus restriction. 6. Type 2 DM-- Will recheck his HbA1c next month 7. Hepatitis C-- stable. 8. Hyperlipidemia--on statin Rx. 9. Transplantation--work up in progress. Plan: 1. I encouraged Herman that his PTH appears slightly better than last month. 2. I reinforced the need to take in a moderate portion of high biological value protein at every meal. 3. His venous pressure appears satisfactory at QB = 450 from his AVF. 4. Will recheck his PTH, HbA1c and iron profile next month. Will recheck him in 2 weeks. [facility] documented in thi s encounter Plan of Treatment Not on filedocumented as of this encounter Visit Diagnoses + + | Diagnosis | + + | End stage renal disease (HCC) - Primary End stage renal disease | + + documented in this encounter"
--- OUTSIDE RECORDS SUMMARY | ~2020-03-04 | XMS | Encounter Summary ---
Demographics + + + | Address | [address] | | | [place] [address] | + + + | Home Phone | | + + + | Preferred Language | Unknown | + + + | Marital Status | | + + + | Methodist Affiliation | 1041 | + + + | Race | Unknown | + + + | Ethnic Group | Unknown | + + + Author + + + | Author | [facility] | | | and [place] | + + + | Organization | [facility] | | | and [place] [...] Team Providers + +------+ + | Care Java Flex Developer Name | Role | Phone | + +------+ + PCP | Unavailable | + +------+ + Encounter Details +--------+ + + + + | Date | Type | Department | Care Team | Description | +--------+ + + + + | 02/20/ | Abstract | [facility] [place] | Emmanuelthalrenetta, | | | 2012 | | NEPHROLOGY [address] | Sarai Osei, [address] | | | | | [address] | [address], [place] | | | | | [place] | [address] [place] | | | | | [address] | [address] | | | | | [phone] | | | +--------+ + + + [...] + | CBC WITH | Routin | 02/20/2013 | | Results for this | | DIFFERENTIAL | e | | | procedure are in the | | | | | | results section. | + +--------+ + + + documented in this encounter Results CBC with Differential (02/20/2013) + + + + + + | Component | Value | Ref Range | Performed | Pathologist | | | | | At | Signature | + + + + + + | WBC | 8.0 | K/uL | | | + + + + + + | Hemoglobin | 11.9 (A) | 13.2 - 17.0 | | | | | | g/dL | | | + + + + + + | Hematocrit | 35.0 (A) | 39.0 - 50.0 % | | | + + + + + + | Platelet | 274 | 150 - 400 K/uL | | | | Count | | | | | + + + + + + | MCV | 87.7 | 80.0 - 100.0 fL | | | + + + + + + + + | Specimen | + + | Blood specimen | | (specimen) | + + documented in this encounter Visit Diagnoses Not on filedocumented in this encounter"
--- OUTSIDE RECORDS SUMMARY | ~2020-03-04 | XMS | Encounter Summary ---
Demographics + + + | Address | [address] | | | [place] [address] | + + + | Home Phone | | + + + | Preferred Language | Unknown | + + + | Marital Status | | + + + | Amish Affiliation | 1041 | + + + | Race | Unknown | + + + | Ethnic Group | Unknown | + + + Author + + + | Author | [facility] | | | and [place] | + + + | Organization | [facility] | | | and [place] | [...] Team Providers + +------+ + | Care Book Editor Name | Role | Phone | + +------+ + PCP | Unavailable | + +------+ + Reason for Visit +---------+ + | Reason | Comments | +---------+ + | Post Op | AV fistula/[facility] 07/28/13/Stroemel | +---------+ + Encounter Details +--------+---------+ + + + | Date | Type | Department | Care Team | Description | +--------+---------+ + + + | 09/02/ | [facility] | [facility] Artem Angelo | Chronic kidney | | 2012 | Visit | SURGERY [address] | MD [place], FACS [address] | disease (CKD), stage | | | | [place], [place] | [facility] | V (HCC) (Primary | | | | [address] | [place] [address] | Dx); Type II or | | | | [phone] | [phone] | unspecified type | | | | | | diabetes mellitus | | | | | | with renal | | | | | | manifestations, | | | | | | uncontrolled (HCC) | +--------+---------+ + + + Social History [...] + + + | Blood Pressure | 160/80 | 09/02/2013 1:17 PM | | | | | PST | | + + + + + | Pulse | 75 | 09/02/2013 1:17 PM | | | | | PST | | + + + + + | Temperature | 36.6 C (97.8 F) | 09/02/2013 1:17 PM | | | | | PST | | + + + + + | Respiratory Rate | 16 | 09/02/2013 1:17 PM | | | | | PST | | + + + + + | Oxygen Saturation | 98% | 09/02/2013 1:17 PM | | | | | PST | | + + + + + | Inhaled Oxygen | - | - | | | Concentration | | | | + + + + + | Weight | 128.8 kg (284 lb) | 09/02/2013 1:17 PM | | | | | PST | | + + + + + | Height | 185.4 cm (6' 1") | 09/02/2013 1:17 PM | | | | | PST | | + + + + + | Body Mass Index | 37.47 | 09/02/2013 1:17 PM | | | | | PST | | + + + + + documented in this encounter Progress Notes Ibis Berg Master of Arts - 10/10/2013 3:33 PM PST Fr lotus Mccarthy MD - 09/02/2013 1:17 PM PSTFormatting of this note might be different from the o sobia. Patient Identification: CELSO HERNANDEZ CASE 1960 Is a 53 y.o. male , a patient of Deepali Obrien MD. Patient is here alone. . S: Date of surgery Jul 28, 2013 . Title of surgery LEFT brachio-cephalic fistula . Nurses notes: Physician notes: Patient notes no pain in left arm or hand. Getting dialysis MWF via right IJ catheter. Past Medical History He has a past medical history of Obesity; Vitamin d deficiency; Diabetes mellitus, type 2 ( 1999); Diabetic foot ulcer (01/01/12); Arthritis (09/15/2012); Hypertension (2001); ESRD (end stage renal disease) on dialysis (1999); Heart murmur; BPH with urinary obstruction; Hepatit is C (2006); Hyperlipidemia; and Recurrent UTI. Past Surgical History He Past Surgical History Procedure Date Knee arthroscopy 2006 & 2007 Bilateral Tonsillectomy 1963 Right arm laceration repair 1977 Left shoulder surgery 1979 Left forearm surgery for fracture 1985 Placement of right internal jugular equistream tunneled dialysis catheter 07/18/2013 And removal of peritoneal dialysis catheter Left brachial-cephalic av fistula 07/28/13 Dr. Angelo Allergies Allergen Reactions Amlodipine Besylate Unknown Metformin Diarrhea Medications: He has a current medication list which includes the following prescription(s): aspirin, brenda rvastatin, yovany-tequila rx, cholecalciferol, diltiazem, doxercalciferol, epoetin padilla, furosemi de, insulin glargine, iron sucrose, lisinopril, metoprolol, omeprazole, sevelamer carbonate, and sitagliptin. Outpatient Encounter Prescriptions as of 09/02/2013 Medication Sig Dispense Refill aspirin 81 mg EC tablet Take 81 mg by mouth Daily. atorvaSTATin (LIPITOR) 20 mg tablet Take 1 tablet by mouth Daily. 30 tablet 5 B Rrcozey-M-Bxaqw Acid (YOVANY-TEQUILA RX) 1 MG TABS Take 1 mg by mouth Daily. 30 each 11 cholecalciferol (VITAMIN D-3) 2000 UNITS TABS Take 1 tablet by mouth Daily. diltiazem (DILACOR XR) 180 mg 24 hr capsule Take 180 mg by mouth Daily. doxercalciferol (HECTOROL) 4 MCG/2ML injection Inject 5 mcg into the vein Three times a week. epoetin padilla (EPOGEN, PROCRIT) 10,000 units/mL injection Inject under the skin. On hol d furosemide (LASIX) 40 mg tablet Take 40 [...] tablet Take 25 mg by mouth Daily. Family History: His family history includes Cirrhosis [...] that he does not use illicit drugs. PE: LEFT upper arm: Fistula is working well. Can feel with compression. Ultrasound At the elbow, the vein measures 5.8 mm and is 1.9 mm deep. In the mid upper arm it is 2.2 mm deep and in the upper arm it is 1.8 mm deep. IMP: Functioning left arm AV fistula. P: May use left upper arm AV fistula after Sep 08, 2013. If nurses find vein too deep, pl ease refer patient back for consideration of left cephalic vein translocation. Artem Angelo MD, FACS documented in this encounter Plan of Treatment Not on filedocumented as of this encounter Visit Diagnoses + + | Diagnosis | + + | Chronic kidney disease (CKD), stage V ([facility]) - Primary Chronic kidney disease, Stage V | + + | Type II or unspecified type diabetes mellitus with renal manifestations, | | uncontrolled(250.42) ([facility]) Type II or unspecified type diabetes mellitus with renal | | manifestations, uncontrolled | + + documented in this encounter
--- OUTSIDE RECORDS SUMMARY | ~2020-03-04 | XMS | Encounter Summary ---
Demographics + + + | Address | [address] | | | [place] [address] | + + + | Home Phone [...] | Organization | [facility] | | [...] Team Providers + +------+ + | Care Teacher Of Gifted Students Name | Role | Phone | + +------+ + PCP | Unavailable | + +------+ + Encounter Details +--------+ + + + + | Date | Type | Department | Care Team | Description | +--------+ + + + + | 12/01/ | Off-Site | [facility] [place] | Uche Orozco | Unspecified | | 2013 | Visit | NEPHROLOGY [address] | M, DO [address] | hypertensive kidney | | | | [address] | [place] [place] [address] | disease with chronic | | | | [place] | [place] | kidney disease | | | | [address] | [address] | stage I through | | | | [phone] | | stage IV, or | | | | | | unspecified (Primary | | | | | | Dx); End stage | | | | | | renal disease; | | | | | | Secondary | | | | | | hyperparathyroidism | | | | | | (of renal origin) | +--------+ + + + + Social [...] + + + | Blood Pressure | 157/87 | 12/01/2013 1:45 PM | | | | | PST | | + + + + + | Pulse | - | - | | + + + + + | Temperature | 35.8 C (96.5 F) | 12/01/2013 1:45 PM | | | | | PST [...] encounter Progress Notes Uche Orozco DO - 12/02/2013 6:46 PM PST Subjective: [facility] DIALYSIS NOTE Patient ID: CELSO CARO is a 53 y.o. male. HPI Comments: Monthly dialysis visit for this 53 YO male with ESRD secondar y to diabetic nephropathy, who is seen on outpatient HD at the [facility]. He also has T2DM, requiring insulin, anemia secondary to CKD, hyperlipidemia, Hepatitis C, m orbid obesity and a question of a right renal mass on prior US. I does improve. His appetit e has improved. His left arm AVF has successfully matured, and is being regularly cannulat ed, therefore, the tunneled IJ was draining catheter was removed last week. Outpatient Prescriptions Marked as Taking for the 12/01/13 encounter (Off-Site Visit) with Jean Orozco DO Medication Sig Dispense Refill aspirin 81 mg EC tablet Take 81 mg by mouth Daily. atorvaSTATin (LIPITOR) 20 mg tablet Take 1 tablet by mouth Daily. 30 tablet 5 B Epemtpy-L-Wwdwe Acid (OLEG-TEQUILA RX) 1 MG TABS Take 1 mg by mouth Daily. 30 each 11 calcium carbonate (TUMS) 500 mg chewable tablet Take 1 tablet by mouth nightly. Cholecalciferol (VITAMIN D3) 5000 UNITS CAPS Take 5,000 Units by mouth Daily. cinacalcet (SENSIPAR) 30 mg tablet Take 1 tablet by mouth Daily. 90 tablet 4 diltiazem (DILACOR XR) 180 mg 24 hr capsule Take 180 mg by mouth Daily. doxercalciferol (HECTOROL) 4 MCG/2ML injection Inject 7 mcg into the vein Three times a week. epoetin padilla (EPOGEN, PROCRIT) 10,000 units/mL injection --On hold furosemide (LASIX) 40 mg tablet Take 40 [...] Diarrhea Review of Systems Objective: Blood pressure 157/87, temperature 35.8 C (96.5 F). EDW 125 kg Physical Exam Heart: Regular rate and rhythm with no S3, S4, murmur or rub. Lungs: CTA bilaterally. No rales or wheezes. Abdomen: Soft, flat, nontender, normoactive bowel sounds. Extremities: No clubbing, cyanosis, or edema. (+) well-developed AVF, left arm with QB = 4 00. LAB: BUN 54, Cr 6.0, K+ 4.3, HCO3 24, Ca++ 7.7, PO4 5.5, PTH 453, Alb 3.3, AST 16, Hb 11.4,TSat. = 15%, Ferritin 338, eKT/V = 1.33. Assessment: 1. ESRD--he appears well dialyzed on 5 hours, G21R, 2K+, QB 400, QD 800. 2. Hypertension--stable. 3. Anemia--will give her a course of IV iron x10 doses, to target the TSat > 20% and coby tin >200. However, EPO is on hold until the Hb is <11.0 g/dl. His energy level is good. 4. SHPTH--his phosphorus control is better. PTH is improved from last month. 5. Nutrition--albumin is below target, however he has an excellent appetite. I think with financial aid advisor utilization of his left arm fistula this will improve further? 6. Type 2 DM--need to recheck his HbA1c. 7. Hepatitis C--LFT's previously have been stable. 8. Hyperlipidemia--will recheck the lipid profile quarterly. 9. Transplantation--he has not thought a great deal about this, but he is interested in ex ploring it further. 10. Right renal mass, MRI, 10/2012--suspicious for complex, "proteinaceous cysts, " on MRI at that time. Plan: 1. He may need additional Sensipar to target a PTH <300 pg/mL. 2. Is her albumin, adequacy likely will improve further on his alatna left arm AVF. 3. Will continue to hold EPO until Hb is <11.0 g/dl. 4. I appreciate Dr. Angelo's persistence with developing his alatna AVF. CC: Artem Angelo MD [facility] documented in thi s encounter Plan of Treatment Not on filedocumented as of this encounter Visit Diagnoses + + | Diagnosis | + + | Unspecified hypertensive kidney disease with chronic kidney disease stage I through | | stage IV, or unspecified - Primary | + + | End stage renal disease | + + | Secondary hyperparathyroidism (of renal origin) | + + documented in this encounter
--- OUTSIDE RECORDS SUMMARY | ~2020-03-04 | XMS | Encounter Summary ---
Demographics + + + | Address | [address] | | | [place] [address] | + + + | Home Phone | | + + + | Preferred Language | Unknown | + + + | Marital Status | | + + + | Methodist Affiliation | 1041 | + + + | Race | Unknown | + + + | Ethnic Group | Unknown | + + + Author + + + | Author | [facility] | | | and [place] | + + + | Organization | [facility] | | | and [place] [...] Team Providers + +------+ + | Care Width Stripper Name | Role | Phone | + +------+ + | Marco A Carrasco | PCP | | + +------+ + Encounter Details +--------+ + + + + | Date | Type | Department | Care Team | Description | +--------+ + + + + | 12/31/ | Imaging | [facility] | Provider, | | | 2019 | Exam | [facility] EX[facility] | MD [address] | | | | | IMAGING [address] | Kenji [address]MAYA | | | | | STEVIE KHAN | [place] [address] | | | | | [place] [address] | | | | | | [phone] | | | +--------+ + + + [...] +--------+ + + + | XR CHEST 1 VIEW | Routin | 12/29/2019 | | Results for this | | | e | 12:00 AM | | procedure are in the | | | | PDT | | results section. | + +--------+ + + + documented in this encounter Results XR Chest 1 Vw (12/29/2019 12:00 AM PDT) + + | Specimen | + + | | + + + + + | Narrative | Performed At | + + + | External films for comparison only | [facility] | | | | | No results will be in the chart. | | + + + + +---------+ + + | Performing | Address | City/State/Zipcode | Phone Number | | Organization | | | | + +---------+ + + | [facility] | | | | + +---------+ + + documented in this encounter Visit Diagnoses Not on filedocumented in this encounter"
--- OUTSIDE RECORDS SUMMARY | ~2020-03-04 | XMS | Encounter Summary ---
Demographics + + + | Address | [address] | | | [place] [address] | + + + | Home Phone | | + + + | Preferred Language | Unknown | + + + | Marital Status | | + + + | Alevism Affiliation | 1041 | + + + | Race | Unknown | + + + | Ethnic Group | Unknown | + + + Author + + + | Author | [facility] | | | and [place] | + + + | Organization | [facility] | | [...] Team Providers + +------+ + | Care Solar Panel Installer Name | Role | Phone | + +------+ + PCP | Unavailable | + +------+ + Encounter Details +--------+ + + + + | Date | Type | Department | Care Team | Description | +--------+ + + + + | 11/09/ | Hospital | [facility] | [place], | DM Manif NEC Type II | | 2009 | Encounter | CONVERSION [address] | MD [address] | ([facility]) | | | | [address] | [address] | | | | | [place], [place] | [place] [address] | | | | | [address] | [phone] | | | | | [phone] | | | +--------+ + + + + Social History + +-------+ +--------+------+ | Tobacco [...] XR FOOT RIGHT 3 + VW | Routin | 11/09/2009 | | Results for this | | | e | 4:37 PM | | procedure are in the | | | | PST | | results section. | + +--------+ + + + documented in this encounter Results XR Foot Right 3 + Vw (11/09/2009 4:37 PM PST) + + | Specimen | + + | | + + + + + | Narrative | Performed At | + + + | [facility] | | | [facility] [address] | | | , | | | [id number]/RADIOLOGY Patient Name: CELSO CARO Date of : | | | 1960 Medical Record: [id number] Account: [id number] | | | O/P// Exam Date/Time: 11/09/2009 04:25 P | | | Ordering Provider: HORTENCIA MARRERO Order Detail: [id number] / / | | | HDI Exam Description: XR FOOT RIGHT | | | | | | RIGHT FOOT 11/09/2009 HISTORY A 49-year-old male, diabetic foot | | | ulcer. TECHNIQUE Three views of the right foot. COMPARISON | | | None. FINDINGS There is significant vascular calcification, a | | | calcaneal heel spur, soft tissue swelling, and irregularity about the | | | plantar aspect of the foot with what is seen on the lateral view as | | | an ulcer near the ball of the foot on the lateral view only. | | | There is also some subcutaneous gas or irregular tissue at the | | | medial proximal second digit and there is what appears to be an old | | | fracture of the proximal phalanx of the fifth digit. Flexion | | | deformity of the third and fourth digits, and to a lesser degree the | | | second digit. There is no proven osteolysis or aggressive lesion, | | | although if osteomyelitis is the concern here, absent a baseline | | | study for comparison, certainly radiographic surveillance will be | | | required and advanced imaging such as MR would be better. | | | Arthropathy of the mid foot is noted incidentally. IMPRESSION | | | Soft tissue fullness and subcutaneous ulcers and defects discussed | | | above about the medial base of the second digit and about the ball of | | | the foot on the lateral view. There is no evidence of underlying | | | osteolysis, but if osteomyelitis is the question here, radiographic | | | surveillance will be necessary and/or an advanced modality such as | | | MR. Read by LOPEZ CORDON MD 11/09/2009 04:46 P | | | Electronically Signed by LOPEZ CORDON MD 11/10/2009 05:21 P | | | P P [facility]/[id number]/ | | | cc: MD HORTENCIA MALLOY MD | | + + + + + | Procedure Note | + + | Jasper Roger Conversion - 06/01/2019 5:11 PM PDT | | [facility] | | [facility] [address] | | , | | | | [id number]/RADIOLOGY | | | | Patient Name: CELSO CARO | | Date of : 1960 | | Medical Record: [id number] | | Account: [id number] | | O/P// | | | | | | Exam Date/Time: 11/09/2009 04:25 P | | Ordering Provider: HORTENCIA MARRERO | | Order Detail: [id number] / / HDI | | Exam Description: XR FOOT RIGHT | | | | RIGHT FOOT 11/09/2009 | | | | HISTORY | | A 49-year-old male, diabetic foot ulcer. | | | | TECHNIQUE | | Three views of the right foot. | | | | COMPARISON | | None. | | | | FINDINGS | | There is significant vascular calcification, a calcaneal heel spur, soft | | tissue swelling, and irregularity about the plantar aspect of the foot | | with what is seen on the lateral view as an ulcer near the ball of the | | foot on the lateral view only. | | | | There is also some subcutaneous gas or irregular tissue at the medial | | proximal second digit and there is what appears to be an old fracture of | | the proximal phalanx of the fifth digit. Flexion deformity of the third | | and fourth digits, and to a lesser degree the second digit. | | | | There is no proven osteolysis or aggressive lesion, although if | | osteomyelitis is the concern here, absent a baseline study for | | comparison, certainly radiographic surveillance will be required and | | advanced imaging such as MR would be better. | | | | Arthropathy of the mid foot is noted incidentally. | | | | IMPRESSION | | Soft tissue fullness and subcutaneous ulcers and defects discussed above | | about the medial base of the second digit and about the ball of the foot | | on the lateral view. There is no evidence of underlying osteolysis, but | | if osteomyelitis is the question here, radiographic surveillance will be | | necessary and/or an advanced modality such as MR. | | | | | | Read by | | LOPEZ CORDON MD 11/09/2009 04:46 P | | Electronically Signed by | | LOPEZ CORDON MD 11/10/2009 05:21 P | | | | P | | P | | [id number]/ | | cc: LOPEZ CORDON MD | | HORTENCIA MARRERO MD | + + documented in this encounter Visit Diagnoses + + | Diagnosis | + + | Type II or unspecified type diabetes mellitus with other specified manifestations, not | | stated as uncontrolled | + + documented in this encounter"
--- OUTSIDE RECORDS SUMMARY | ~2020-03-04 | XMS | Encounter Summary ---
Demographics + + + | Address | [address] | | | [place] [address] | + + + | Home Phone [...] + | Organization | [facility] | | | and [...] Team Providers + +------+ + | Care Straddle Truck Operator Name | Role | Phone | + +------+ + PCP | Unavailable | + +------+ + Encounter Details +--------+ + + + + | Date | Type | Department | Care Team | Description | +--------+ + + + + | 06/26/ | Abstract | [facility] | Emmanuelthalrenetta, | | | 2012 | | NEPHROLOGY [address] | Sarai Osei, [address] | | | | | [address] | [address], [place] | | | | | [place] | [address] [place] | | | | | [address] | [address] | | | | | [phone] | | | +--------+ + + + [...] +--------+ + + + | EXTERNAL LAB: [facility] | Routin | 06/25/2013 | | Results for this | | | e | | | procedure are in the | | | | | | results section. | + +--------+ + + + | EXTERNAL LAB: [facility] | Routin | 06/25/2013 | | Results for this | | | e | | | procedure are in the | | | | | | results section. | + +--------+ + + + | EXTERNAL LAB: | Routin | 06/25/2013 | | Results for this | | TRIGLYCERIDES | e | | | procedure are in the | | | | | | results section. | + +--------+ + + + | EXTERNAL LAB: | Routin | 06/25/2013 | | Results for this | | CHOLESTEROL, HDL | e | | | procedure are in the | | | | | | results section. | + +--------+ + + + | EXTERNAL LAB: | Routin | 06/25/2013 | | Results for this | | CHOLESTEROL, TOTAL | e | | | procedure are in the | | | | | | results section. | + +--------+ + + + | EXTERNAL LAB: | Routin | 06/25/2013 | | Results for this | | CHOLESTEROL, LDL | e | | | procedure are in the | | | | | | results section. | + +--------+ + + + | EXTERNAL LAB: EGFR | Routin | 06/25/2013 | | Results for this | | | e | | | procedure are in the | | | | | | results section. | + +--------+ + + + | EXTERNAL LAB: | Routin | 06/25/2013 | | Results for this | | CREATININE | e | | | procedure are in the | | | | | | results section. | + +--------+ + + + | CMP14+LP+CBC/D/PLT+T | Routin | 06/25/2013 | | Results for this | | SH+UA/M (NON ORD) | e | | | procedure are in the | | | | | | results section. | + +--------+ + + + documented in this encounter Results CMP14+LP+CBC/D/Plt+TSH+UA/M (06/25/2013) + +---------+ + + + | Component | Value | Ref Range | Performed | Pathologist | | | | | At | Signature | + +---------+ + + + | Na | 139 | mmol/L | EXTERNAL | | | | | | LAB | | + +---------+ + + + | K | 5.3 | mmol/L | EXTERNAL | | | | | | LAB | | + +---------+ + + + | Cl | 111 | mmol/L | EXTERNAL | | | | | | LAB | | + +---------+ + + + | CO2 | 16 | mmol/L | EXTERNAL | | | | | | LAB | | + +---------+ + + + | BUN | 49 | mg/dL | EXTERNAL | | | | | | LAB | | + +---------+ + + + | Glucose | 214 | mg/dL | EXTERNAL | | | | | | LAB | | + +---------+ + + + | Calcium | 8.3 | mg/dL | EXTERNAL | | | | | | LAB | | + +---------+ + + + | PTH INTACT | 233.6 | pg/mL | EXTERNAL | | | | | | LAB | | + +---------+ + + + | Phosphorus | 5.9 (A) | 2.3 - 4.8 mg/dL | EXTERNAL | | | | | | LAB | | + +---------+ + + + | Bilirubin | 0.3 | 0.1 - 1.5 mg/dL | EXTERNAL | | | Total | | | LAB | | + +---------+ + + + | Alkaline | 109 | 35 - 115 U/L | EXTERNAL | | | Phosphatase | | | LAB | | + +---------+ + + + | Albumin | 3.3 (A) | 3.5 - 5.0 g/dL | EXTERNAL | | | | | | LAB | | + +---------+ + + + + + | Specimen | + + | | + + + +---------+ + + | Performing | Address | City/State/Zipcode | Phone Number | | Organization | | | | + +---------+ + + | EXTERNAL LAB | | | | + +---------+ + + External Lab: AST (06/25/2013) + +-------+ + + + | Component | Value | Ref Range | Performed | Pathologist | | | | | At | Signature | + +-------+ + + + | AST, | 9 | 0 - 40 | EXTERNAL | | | External | | | LAB | | + +-------+ + + + + + | Specimen | + + | Blood specimen | | (specimen) | + + + + | Resulting Agency Comment | + + | [facility] | + + + +---------+ + + | Performing | Address | City/State/Zipcode | Phone Number | | Organization | | | | + +---------+ + + | EXTERNAL LAB | | | | + +---------+ + + External Lab: ALT (06/25/2013) + +-------+ + + + | Component | Value | Ref Range | Performed | Pathologist | | | | | At | Signature | + +-------+ + + + | ALT, | 7 | 0 - 40 | EXTERNAL | | | External | | | LAB | | + +-------+ + + + + + | Specimen | + + | Blood specimen | | (specimen) | + + + + | Resulting Agency Comment | + + | [facility] | + + + +---------+ + + | Performing | Address | City/State/Zipcode | Phone Number | | Organization | | | | + +---------+ + + | EXTERNAL LAB | | | | + +---------+ + + External Lab: Triglycerides (06/25/2013) + +---------+ + + + | Component | Value | Ref Range | Performed | Pathologist | | | | | At | Signature | + +---------+ + + + | Triglycerid | 863 (A) | 150 | EXTERNAL | | | es, | | | LAB | | | External | | | | | + +---------+ + + + + + | Specimen | + + | Blood specimen | | (specimen) | + + + + | Resulting Agency Comment | + + | [facility] | + + + +---------+ + + | Performing | Address | City/State/Zipcode | Phone Number | | Organization | | | | + +---------+ + + | EXTERNAL LAB | | | | + +---------+ + + External Lab: Cholesterol, HDL (06/25/2013) + + + + + + | Component | Value | Ref Range | Performed | Pathologist | | | | | At | Signature | + + + + + + | HDL | 29.9 (A) | 40 | EXTERNAL | | | Cholesterol | | | LAB | | | , External | | | | | + + + + + + + + | Specimen | + + | Blood specimen | | (specimen) | + + + + | Resulting Agency Comment | + + | [facility] | + + + +---------+ + + | Performing | Address | City/State/Zipcode | Phone Number | | Organization | | | | + +---------+ + + | EXTERNAL LAB | | | | + +---------+ + + External Lab: Cholesterol, Total (06/25/2013) + +---------+ + + + | Component | Value | Ref Range | Performed | Pathologist | | | | | At | Signature | + +---------+ + + + | Cholesterol | 302 (A) | 200 | EXTERNAL | | | , Total, | | | LAB | | | External | | | | | + +---------+ + + + + + | Specimen | + + | Blood specimen | | (specimen) | + + + + | Resulting Agency Comment | + + | [facility] | + + + +---------+ + + | Performing | Address | City/State/Zipcode | Phone Number | | Organization | | | | + +---------+ + + | EXTERNAL LAB | | | | + +---------+ + + External Lab: Cholesterol, LDL (06/25/2013) + +-------+ + + + | Component | Value | Ref Range | Performed | Pathologist | | | | | At | Signature | + +-------+ + + + | LDL | - | | EXTERNAL | | | Cholesterol | | | LAB | | | , Direct, | | | | | | External | | | | | + +-------+ + + + + + | Specimen | + + | Blood specimen | | (specimen) | + + + + | Resulting Agency Comment | + + | [facility] | + + + +---------+ + + | Performing | Address | City/State/Zipcode | Phone Number | | Organization | | | | + +---------+ + + | EXTERNAL LAB | | | | + +---------+ + + External Lab: eGFR (06/25/2013) + +--------+ + + + | Component | Value | Ref Range | Performed | Pathologist | | | | | At | Signature | + +--------+ + + + | eGFR, | 10 (A) | 60 | EXTERNAL | | | External | | | LAB | | + +--------+ + + + | eGFR, | | | EXTERNAL | | | | | | LAB | | | [place], | | | | | | External | | | | | + +--------+ + + + + + | Specimen | + + | Blood specimen | | (specimen) | + + + + | Resulting Agency Comment | + + | [facility] | + + + +---------+ + + | Performing | Address | City/State/Zipcode | Phone Number | | Organization | | | | + +---------+ + + | EXTERNAL LAB | | | | + +---------+ + + External Lab: Creatinine (06/25/2013) + + + + + + | Component | Value | Ref Range | Performed | Pathologist | | | | | At | Signature | + + + + + + | Creatinine, | 6.16 (A) | 0.6 - 1.3 | EXTERNAL | | | External | | | LAB | | + + + + + + + + | Specimen | + + | Blood specimen | | (specimen) | + + + + | Resulting Agency Comment | + + | [facility] | + + + +---------+ + + | Performing | Address | City/State/Zipcode | Phone Number | | Organization | | | | + +---------+ + + | EXTERNAL LAB | | | | + +---------+ + + documented in this encounter Visit Diagnoses Not on filedocumented in this encounter"
--- OUTSIDE RECORDS SUMMARY | ~2020-03-04 | XMS | Encounter Summary ---
Demographics + + + | Address | [address] | | | [place] [address] | + + + | Home Phone [...] + | Organization | [facility] | | | and [place] [...] Team Providers + +------+ + | Care Parole Or Probation Officer Name | Role | Phone | + +------+ + PCP | Unavailable | + +------+ + Encounter Details +--------+ + + + + | Date | Type | Department | Care Team | Description | +--------+ + + + + | 05/09/ | Abstract | [facility] [place] | Emmanuelthalrenetta, | | | 2012 | | NEPHROLOGY [address] | Sar[place], [address] | | | | | [address] | [address], [place] | | | | | [place] | [address] [place] | | | | | [address] | [address] | | | | | [phone] | | | +--------+ + + + [...] | EXTERNAL LAB: [facility] | Routin | 05/08/2013 | | Results for this | | | e | | | procedure are in the | | | | | | results section. | + +--------+ + + + | EXTERNAL LAB: JO[facility]NE | Routin | 05/08/2013 | | Results for this | | | e | | | procedure are in the | | | | | | results section. | + +--------+ + + + | EXTERNAL LAB: EGFR | Routin | 05/08/2013 | | Results for this | | | e | | | procedure are in the | | | | | | results section. | + +--------+ + + + | EXTERNAL LAB: | Routin | 05/08/2013 | | Results for this | | CREATININE | e | | | procedure are in the | | | | | | results section. | + +--------+ + + + | CMP14+LP+CBC/D/PLT+T | Routin | 05/08/2013 | | Results for this | | SH+UA/M (NON ORD) | e | | | procedure are in the | | | | | | results section. | + +--------+ + + + documented in this encounter Results CMP14+LP+CBC/D/Plt+TSH+UA/M (05/08/2013) + +---------+ + + + | Component | Value | Ref Range | Performed | Pathologist | | | | | At | Signature | + +---------+ + + + | Na | 140 | mmol/L | | | + +---------+ + + + | K | 5.0 | mmol/L | | | + +---------+ + + + | Cl | 115 | mmol/L | | | + +---------+ + + + | CO2 | 14 | mmol/L | | | + +---------+ + + + | BUN | 50 | mg/dL | | | + +---------+ + + + | Glucose | 127 | mg/dL | | | + +---------+ + + + | Calcium | 8.3 | mg/dL | | | + +---------+ + + + | Phosphorus | 4.8 | 2.3 - 4.8 mg/dL | | | + +---------+ + + + | Bilirubin | 0.3 | 0.1 - 1.5 mg/dL | | | | Total | | | | | + +---------+ + + + | Alkaline | 107 | 35 - 115 U/L | | | | Phosphatase | | | | | + +---------+ + + + | Albumin | 3.4 (A) | 3.5 - 5.0 g/dL | | | + +---------+ + + + | PRO/CREA | 8.8 | mg/mg | | | | RATIO,URINE | | | | | + +---------+ + + + + + | Specimen | + + | | + + External Lab: AST (05/08/2013) + +-------+ + + + | Component | Value | Ref Range | Performed | Pathologist | | | | | At | Signature | + +-------+ + + + | AST, | 14 | 0 - 40 | EXTERNAL | | | External | | | LAB | | + +-------+ + + + + + | Specimen | + + | Blood specimen | | (specimen) | + + + + | Resulting Agency Comment | + + | [facility] | + + + +---------+ + + | Performing | Address | City/State/Zipcode | Phone Number | | Organization | | | | + +---------+ + + | EXTERNAL LAB | | | | + +---------+ + + External Lab: ALT (05/08/2013) + +-------+ + + + | Component | Value | Ref Range | Performed | Pathologist | | | | | At | Signature | + +-------+ + + + | ALT, | 9 | 0 - 46 | EXTERNAL | | | External | | | LAB | | + +-------+ + + + + + | Specimen | + + | Blood specimen | | (specimen) | + + + + | Resulting Agency Comment | + + | [facility] | + + + +---------+ + + | Performing | Address | City/State/Zipcode | Phone Number | | Organization | | | | + +---------+ + + | EXTERNAL LAB | | | | + +---------+ + + External Lab: eGFR (05/08/2013) + +--------+ + + + | Component [...] | | | LAB | | | [place], | | | | | | External | | | | | + +--------+ + + + + + | Specimen | + + | Blood specimen | | (specimen) | + + + + | Resulting Agency Comment | + + | [facility] | + + + +---------+ + + | Performing | Address | City/State/Zipcode | Phone Number | | Organization | | | | + +---------+ + + | EXTERNAL LAB | | | | + +---------+ + + External Lab: Creatinine (05/08/2013) + + + + + + | Component | Value | Ref Range | Performed | Pathologist | | | | | At | Signature | + + + + + + | Creatinine, | 5.86 (A) | 0.5 - 1.5 | EXTERNAL | | | External | | | LAB | | + + + + + + + + | Specimen | + + | Blood specimen | | (specimen) | + + + + | Resulting Agency Comment | + + | [facility] | + + + +---------+ + + | Performing | Address | City/State/Zipcode | Phone Number | | Organization | | | | + +---------+ + + | EXTERNAL LAB | | | | + +---------+ + + documented in this encounter Visit Diagnoses Not on filedocumented in this encounter"
--- OUTSIDE RECORDS SUMMARY | ~2020-03-04 | XMS | Encounter Summary ---
Demographics + + + | Address | [address] | | | [place] [address] | + + + | Home Phone [...] Organization | [facility] | | | and [place] [...] Team Providers + +------+ + | Care Funeral Sales Manager Name | Role | Phone | + +------+ + PCP | Unavailable | + +------+ + Encounter Details +--------+ + + + + | Date | Type | Department | Care Team | Description | +--------+ + + + + | 09/17/ | Abstract | [facility] | Uche Orozco | | | 2017 | | NEPHROLOGY [address] | M, DO [address] | | | | | [address] | [place], [place] [address] | | | | | [place] | [place] | | | | | [address] | [address] | | | | | [phone] | | | +--------+ + + + [...] this encounter Progress Notes Dedra Camara - 09/17/2017 8:54 AM PSTOutside record: New patient starter program form from [facility], dos: 09/16/17. Sent to [facility].Electronically signed by Dedra Camara at 8:54 AM PSTdocumented in this encounter Plan of Treatment Not on filedocumented as of this encounter Visit Diagnoses Not on filedocumented in this encounter"
--- OUTSIDE RECORDS SUMMARY | ~2020-03-04 | XMS | Encounter Summary ---
Demographics + + + | Address | [address] | | | [place] [address] | + + + | Home Phone | | + + + | Preferred Language | Unknown | + + + | Marital Status | | + + + | Jainism Affiliation | 1041 | + + + | Race | Unknown | + + + | Ethnic Group | Unknown | + + + Author + + + | Author | [facility] | | | and Scarana | + + + | Organization | [facility] | | | [...] Team Providers + +------+ + | Care Applications Systems Analyst Name | Role | Phone | + [...] | renal | PA-C [address] | [address] | | | | | disease | [address] | [address], [address] | | | | | ([facility]) | [place] | [address] | | | | | Procedures | [address] | [place] | | | | | [place] ESRD | [place], | [address] Phone: | | | | | RELATED SVC | [place] | [phone] | | | | | MONTHLY | [address] | Fax: | | | | | 20&/> YR OLD | Phone: | [phone] | | | | | 4/> VISITS | [phone] | | | | | | dialysis | Fax: | | | | | | | [phone] | | + +--------+ + + + + Encounter Details +--------+ + + + + | Date | Type | Department | Care Team | Description | +--------+ + + + + | 09/16/ | Off-Site | [facility] [place] | Uche Orozco | End stage renal | | 2018 | Visit | NEPHROLOGY [address] | M, DO [address] | disease (HCC) | | | | [address] | [address] | (Primary Dx) | | | | [place], [place] | [place] | | | | | [address] | [address] | | | | | [phone] | | | +--------+ + + + [...] + + + | Blood Pressure | 155/81 | 09/16/2018 5:01 PM | | | | | PST | | + + + + + | Pulse | - | - | | + + + + + | Temperature | 36.2 C (97.1 F) | 09/16/2018 5:01 PM | | | | | PST [...] encounter Progress Notes Uche Orozco DO - 09/16/2018 9:30 AM PST Subjective: [facility] DIALYSIS NOTE Patient ID: Celso Caro is a 58 y.o. male. HPI: Post hospital follow-up for this pleasant 58 YO male who was discharg ed from [facility] on IV ceftazidime/bank via PICC line [...] Outpatient Prescriptions Marked as Taking for the 09/16/18 encounter (Off-Site Visit) with Uche Orozco DO Medication Sig Dispense Refill apixaban (ELIQUIS) 2.5 mg tablet Take 1 tablet by mouth 2 times daily. 60 tablet B Kgizpcg-E-Arias Acid (OLEG-TEQUILA RX) 1 MG TABS Take 1 mg by mouth Daily. 30 each 11 Cholecalciferol (VITAMIN D3) 5000 UNITS CAPS Take 5,000 Units by mouth Daily. cinacalcet (SENSIPAR) 60 MG tablet Take 1 tablet by mouth Daily. 30 tablet doxercalciferol (HECTOROL) 2 mcg/mL injection Inject 10 mcg into the vein Three times a week. epoetin padilla (EPOGEN, PROCRIT) 10,000 units/mL injection Inject 7,000 Units into the ve in Three times [...] kwabena es daily (before meals and nightly). vancomycin IVPB 1 g Inject 1 g into the vein Twice a week. Q Sun and Sunday, after HD, by [place], through 10/18/18. Indications: Acute Bone Infection that May Spread to the Bone Ma rrow, Purulent Skin and Soft Tissue Infection Allergies Allergen Reactions Amlodipine Besylate Unknown Fenofibrate Acidosis Metformin Diarrhea Objective: BP 155/81 | Temp 36.2 C (97.1 F) EDW 119 kg Physical Exam Heart: Regular rate and rhythm with no S3, S4, murmur or rub. Lungs: CTA in all valle. No rales or wheezes. Abdomen: Soft, flat, nontender, normoactive bowel sounds. Extremities: 1+ edema, no rash, AVF at left arm is clear and dry. LAB: BUN 46, Cr 9.4, K+ 5.4, HCO3 19, Ca++ 8.2, P04 6.0, PTH 121, albumin 3.3, Hb 10.6, TS at = 22%, ferritin 1014, spKT/V = 1.54. Assessment: 1. ESRD-- he appears well dialyzed on his current Rx thrice weekly. 2. Hypertension-- good control with UF and metoprolol succinate. 3. Anemia secondary to CKD-- Hb is presently stable in light of the recent infection. Is a weekly dose of Venofer to target the T sat >30% 4. Nutrition-- he states that his appetite is good. He simulated enjoy the food in the ho spital and hopefully serum albumin will improve on his home diet? 5. 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 Phosphorus control is reasonable. 6. Type 2 DM-- glycemic control is very stable on the hospital. Need to recheck his HbA1c next month. 7. Hepatitis C--clinically in remission . 8. Hyperlipidemia--on statin Rx. 9. Transplantation--this will need to be on hold until his foot infection is cleared up. He appears to understand this. 10. Deep seated infection with osteomyelitis, left foot, S/P I&D 09/07/2018--now on IV ceft azidime/bank through 10/18/2018 which would be 6 weeks. Plan: 1. 1. The patient appears stable on 4 hrs, F160, 2K+, QB 400, QD 600. 2. Will continue the Mircera at the current dose. 3. He appears to be tolerating his IV antibiotics okay be outpatient Infusion Service. 4. I greatly appreciate Dr. Schuster's follow-up of his foot infection who is seeing him r egularly at his office. Heidi Orozco DO CC: [facility] Toby Schuster DPM documented in thi s encounter Plan of Treatment Not on filedocumented as of this encounter Visit Diagnoses + + | Diagnosis | + + | End stage renal disease (HCC) - Primary End stage renal disease | + + documented in this encounter"
--- OUTSIDE RECORDS SUMMARY | ~2020-03-04 | XMS | Encounter Summary ---
Demographics + + + | Address | [address] | | | [place] [address] | + + + | Home Phone | | + + + | Preferred Language | Unknown | + + + | Marital Status | | + + + | Hindu Affiliation | 1041 | + + + | Race | Unknown | + + + | Ethnic Group | Unknown | + + + Author + + + | Author | [facility] | | | and Scarana | + + + | Organization | [facility] | | | and [...] Team Providers + +------+ + | Care Head Librarian Name | Role | Phone | + [...] | | | disease | NW | [place], [address] | | | | | (HCC) | [place] | [address] [place] | | | | | Procedures | [address] | [place], [place] | | | | | [place] ESRD | [facility], | [address] Phone: | | | | | RELATED SVC | [place] | [phone] | | | | | MONTHLY | [address] | Fax: | | | | | 20&/> YR OLD | Phone: | [phone] | | | | | 4/> VISITS | [phone] | | | | | | dialysis | Fax: | | | | | | | [phone] | | + +--------+ + + + [...] | [address] | [place] | (Primary Dx) | | | | [place], [place] | [place], [place] | | | | | [address] | [address] | | | | | [phone] | | | +--------+ + + + [...] + + + | Blood Pressure | 111/89 | 12/01/2019 1:09 PM | | | | | PST | | + + + + + | Pulse | - | - | | + + + + + | Temperature | 36.2 C (97.2 F) | 12/01/2019 1:09 PM | | | | | PST [...] encounter Progress Notes Uche Orozco DO - 12/01/2019 9:15 AM PST Subjective: [facility] DIALYSIS NOTE Patient ID: Celso Caro is a 59 y.o. male. 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 He i s doing better with his IDWG's. Denies chest pain, BOWEN, orthopnea or peripheral edema. He attends all prescribed treatments consistently. PAST MEDICAL HISTORY: 1. Type 2 DM, requiring insulin, diagnosed at age 44, with nephropathy and probable neuropa thy ? 2. Hypertension x 13 years, per the patient. 3. Hyperlipidemia x 13 years, per the patient. 4. History of complex right renal cyst which was confirmed to be cystic on MRI, 10/2012. 5. Anemia secondary to CKD, treated with erythropoietin and IV iron. 6. CKD/MBD--treated with Velphoro, and Hectorol at the [facility], [place], [place]. Outpatient Medications Marked as Taking for the 12/01/19 encounter (Off-Site Visit) with Naveen Orozco DO Medication Sig Dispense Refill apixaban (ELIQUIS) 5 mg tablet Take 2.5 mg by mouth 2 times daily. B Gqjgjix-A-Rxpci Acid (OLEG-TEQUILA RX) 1 MG TABS Take 1 mg by mouth Daily. 30 each 11 Cholecalciferol (VITAMIN D3) 5000 UNITS CAPS Take 5,000 Units by mouth Daily. cinacalcet (SENSIPAR) 30 mg tablet Take 30 mg by mouth Three times a week. doxercalciferol (HECTOROL) 2 mcg/mL injection Inject 4.5 mcg into the vein Three times a week. insulin glargine (LANTUS) 100 units/mL injection (vial) Inject 25 Units under the skin 2 times daily. loperamide (ANTI-DIARRHEAL) 2 MG tablet Take 2 mg by mouth 4 times daily as needed for Diarrhea. metoprolol succinate (TOPROL-XL) 100 mg ER tablet Take 0.5 tablets by mouth Daily. 30 t ablet omeprazole (PRILOSEC) 20 mg capsule Take 1 capsule by mouth Daily. 30 capsule rosuvastatin (CRESTOR) 20 mg tablet Take 20 mg by mouth Daily. sucroferric oxyhydroxide (VELPHORO) 500 mg chewable tablet Take 1 tablet by mouth 4 kwabena es daily (before meals and nightly). (Patient taking differently: Take 500 mg by mouth Daily . When he remembers) Allergies Allergen Reactions Amlodipine Besylate Unknown Fenofibrate Acidosis Metformin Diarrhea Objective: BP 111/89 | Temp 36.2 C (97.2 F) EDW 121 kg Physical Exam Heart: Regular rate and rhythm with no S3, S4, murmur or rub. Lungs: CTA in all valle. No rales or wheezes. Abdomen: Soft, flat, nontender, normoactive bowel sounds. Extremities: no edema, no rash, AVF at left arm is clear and dry. LAB: BUN 53, Cr 7.25, K+ 4.2, HCO3 31, albumin 3.8, Ca++ 8.3, phosphorus 6.4, PTH 1005, Hb A1c = 6.6%, Hb 12.5, T Sat 22%, ferritin 778, eKT/V = 1.28 Assessment: 1. ESRD--KT/V appears stable on his current Rx, thrice weekly. 2. Hypertension--good control his current dry weight. 3. Anemia secondary to CKD--he appears to be responding exceptionally well to EPO. Theref ore ESTIVEN therapy is on hold until the Hb is <11.0 g/dl. 4. Nutrition--serum albumin is stable and his appetite is excellent. 5. CKD/MBD--- he seems to be managing somewhat better with his daily phosphorus control. However, PTH is still moderately elevated. 6. Type 2 DM--excellent control by the most recent HbA1c. 7. Hepatitis C-- clinically in remission. 8. Hyperlipidemia--tolerating rosuvastatin well. 9. Transplantation--will need to recontact his transplant team at [facility]. I am not sure whe re his status is exactly? Clinically he has been doing much better in the last 9 months. 10. PAF--appears NSR today on PE. Plan: 1. Monthly lab was reviewed with the patient. 2. His intradialytic fluid gains appear to be improved. I encouraged Herman to try to keep the serum P04 <7.0 mg/dl over time. 3. His diabetic control appears to be improved. 4. He appears euvolemic on exam. His nutrition appears stable. 5. Will hold the EPO and resume it at 50% of the previous dose when the Hb is <11.0 g/dl. : [facility], [facility] Toby Schuster DPM documented in thi s encounter Plan of Treatment Not on filedocumented as of this encounter Procedures + +--------+ + + + | Procedure Name | Priori | Date/Time | Associated Diagnosis | Comments | | | ty | | | | + +--------+ + + + | LABS - EXTERNAL SCAN | | 12/29/2019 | | Results for this | | | | 12:00 AM | | procedure are in the | | | | PDT | | results section. | + +--------+ + + + documented in this encounter Results LABS - EXTERNAL SCAN (12/29/2019 12:00 AM PDT) + + + | Narrative | Performed [...]
--- OUTSIDE RECORDS SUMMARY | ~2020-03-04 | XMS | Encounter Summary ---
Demographics + + + | Address | [address] | | | [place] [address] | + + + | Home Phone [...] + | Organization | [facility] | | | and [place] [...] Team Providers + +------+ + | Care Lead Informatica Developer Name | Role | Phone | + +------+ + PCP | Unavailable | + +------+ + Encounter Details +--------+ + + + + | Date | Type | Department | Care Team | Description | +--------+ + + + + | 03/21/ | Abstract | [facility] [place] | Uche Orozco | | | 2017 | | NEPHROLOGY [address] | M, DO [address] | | | | | [address] | [place] | | | | | [place] | [place] | | | | | [address] | [address] | | | | | [phone] | | | +--------+ + + + [...]
--- OUTSIDE RECORDS SUMMARY | ~2020-03-04 | XMS | Clinical Summary ---
Demographics + + + | Address | [address] | | | [place] [address] | + + + | Home Phone | | + + + | Preferred Language | Unknown | + + + | Marital Status | Single | + + + | Voodoo Affiliation | Unknown | + + + [...] Team Providers + +------+ + | Care Filenet Admin Name | Role | Phone | + +------+ + | No Pcp Per Patient | PCP | Unavailable | + +------+ + Source Comments [facility] is fully live on both [facility] InPatient[facility] Allergies Not on File Medications Not on file Active Problems + + + | Problem | Noted Date | + + + | Type II or unspecified type diabetes mellitus with renal | | | manifestations, not stated as uncontrolled(250.40) | | + + + + + [...] recent travel history available. | + + Last Filed Vital Signs Not on file Plan of Treatment + + + + + | Health Maintenance | Due Date | Last Done | Comments | + + + + + | Pneumococcal | | | | | vaccination (1 of 3 | 5 | | | | - PCV13) | | | | + + + + + | Influenza (Flu) | | 07/02/2015, 07/03/2013, | | | vaccination (#1) | 9 | 11/11/2012, Additional history | | | | | exists | | + + + + + Results Not on filefrom Last 3 Months Insurance + +--------+ +--------+-------+---------+------+ | Payer | Benefi | Subscriber | Effect | Phone | Address | Type | | | t Plan | ID | cyn | | | | | | / | | Dates | | | | | | Group | | | | | | + +--------+ +--------+-------+---------+------+ | [employer] | FIRST | [phone] | Effect | | | PPO | | | CHOICE | | cyn | | | | | | | | for | | | | | | HEALTH | | all | | | | | | | | dates | | | | + +--------+ +--------+-------+---------+------+ + +--------+ +--------+ + + | Guarantor Name | Accoun | Relation to | Date | Phone | Billing Address | | | t Type | Patient | of | | | | | | | | | | + +--------+ +--------+ + + | Celso Caro | Person | Self [birth year] [address] | | | al/Fam | | 1960 | [phone] | [place] [address] | | | brisa | | | 2 (Home) | | + +--------+ +--------+ + +"
--- OUTSIDE RECORDS SUMMARY | ~2020-03-04 | XMS | Encounter Summary ---
Demographics + + + | Address | [address] | | | [place] [address] | + + + | Home Phone | | + + + | Preferred Language | Unknown | + + + | Marital Status | | + + + | Anabaptist Affiliation | 1041 | + + + | Race | Unknown | + + + | Ethnic Group | Unknown | + + + Author + + + | Author | [facility] | | | and [place] | + + + | Organization | [facility] | | | and [place] [...] Team Providers + +------+ + | Care Family Resource Management Specialist Name | Role | Phone | + +------+ + PCP | Unavailable | + +------+ + Encounter Details +--------+ + + + + | Date | Type | Department | Care Team | Description | +--------+ + + + + | 06/02/ | Hospital | [facility] | Artem Angelo | | | 2012 | Encounter | MED [facility] IN[facility] OP | MD [place], FACS [address] | | | | | [address] | [place] | | | | | [place] | [place] [address] | | | | | [address] | [phone] | | | | | [phone] | | | +--------+ + + + [...] tablet by | 30 | 5 | 01/24/20 | | | 40 mg tablet | mouth Daily. | tablet [...] Take 1 tablet by | 60 | 11 | 05/15/20 | | | 650 mg tablet | [...] + | POC GLUCOSE | Routin | 06/02/2013 | | Results for this | | | e | 11:03 AM | | procedure are in the | | | | PDT | | results section. | + +--------+ + + + | POC GLUCOSE | Routin | 06/02/2013 | | Results for this | | | e | 11:01 AM | | procedure are in the | | | | PDT | | results section. | + +--------+ + + + | CHEMISTRY INDEX | Routin | 06/02/2013 | | Results for this | | | e | 9:08 AM | | procedure are in the | | | | PDT | | results section. | + +--------+ + + + | BASIC METABOLIC | Routin | 06/02/2013 | | Results for this | | PANEL | e | 9:08 AM | | procedure are in the | | | | PDT | | results section. | + +--------+ + + + | CHEMISTRY INDEX | Routin | 06/02/2013 | | Results for this | | | e | 9:03 AM | | procedure are in the | | | | PDT | | results section. | + +--------+ + + + | BASIC METABOLIC | Routin | 06/02/2013 | | Results for this | | PANEL | e | 9:03 AM | | procedure are in the | | | | PDT | | results section. | + +--------+ + + + documented in this encounter Results POC Glucose (06/02/2013 11:03 AM PDT) + + + + + + | Component | Value | Ref Range | Performed | Pathologist | | | | | At | Signature | + + + + + + | Glucose, | 223 (H)Comment: Glu2: | 79 - 150 md/dL | [facility] | | | POC | Doctor Notified | | [facility] | | | | [...] [address] | [place] | [phone] | | [facility] | | [address] | | | - LABORATORY | | | | + + + + + | [facility] | [address] | [place] | | | [facility] | | [address], [facility] | | | - LABORATORY | | | | + + + + + POC Glucose (06/02/2013 11:01 AM PDT) + + + + + + | Component | Value | Ref Range | Performed | Pathologist | | | | | At | Signature | + + + + + + | Glucose, | 223 (H)Comment: Glu2: | 79 - 150 md/dL | [facility] | | | POC | Doctor Notified | | [facility] | | | [...] Doctor Notified | [facility] | | | [facility] | | | [facility] | | | - LABORATORY | + + + + + + + + | Performing | Address | City/State/Zipcode | Phone Number | | Organization | | | | + + + + + | [facility] | [address] | [place] | [phone] | | [facility] | | [address] | | | - LABORATORY | | | | + + + + + | [facility] | [address] | [place] | | | [facility] | | [address], [facility] | | | - LABORATORY | | | | + + + + + Chemistry Index (06/02/2013 9:08 AM PDT) + + + + + + | Component | Value | Ref Range | Performed | Pathologist | | | | | At | Signature | + + + + + + | HEMOLYSIS | 1+ (H)Comment: AMYLASE, | None | [facility] | | | INDEX | AMMONIA, CPK, IRON, K+, | | [facility] | | | | LDH, SGOT/AST, SGPT/ALT, | | MEDICAL | | | | and TOTAL BILIRUBIN | | CENTER - | | | | may be adversely | | LABORATORY | | | | affected by 1+ | | | | | | hemolysis. | | | | + + + + + + | LIPEMIA | 2+Comment: AMMONIA, | | [facility] | | | INDEX | LACTIC ACID, TOTAL | | [facility] | | | | PROTEIN and MAGNESIUM | | MEDICAL | | | | may be adversely | | CENTER - | | | | affected by 2+ lipemia. | | LABORATORY | | | | | | | | + + + + + + | ICTERIC | 0 | | [facility] | | | INDEX | | | [facility] | | [...] + | [facility] | [address] | [place] | [phone] | | [facility] | | [address] | | | - LABORATORY | | | | + + + + + | [facility] | [address] | [place], [place] | | | [facility] | | [address], [facility] | | | - LABORATORY | | | | + + + + + Basic Metabolic Panel (06/02/2013 9:08 AM PDT) + + + + + + | Component | Value | Ref Range | Performed | Pathologist | | | | | At | Signature | + + + + + + | Glucose | 204 (H) | 70 - 109 mg/dL | [facility] | | | | | | [facility] | | | | | | MEDICAL | | | | | | CENTER - | | | | | | LABORATORY | | + + + + + + | Calcium | 8.0 (L) | 8.3 - 10.5 | [facility] | | | | | mg/dL | [facility] | | | | | | MEDICAL | | | | | | CENTER - | | | | | | LABORATORY | | + + + + + + | BUN | 44 (H) | 7 - 18 mg/dL | [facility] | | | | | | [facility] | | | | | | MEDICAL | | | | | | CENTER - | | | | | | LABORATORY | | + + + + + + | Creatinine | 5.97 (H) | 0.60 - 1.30 | [facility] | | | | | mg/dL | [facility] | | | | | | MEDICAL | | | | | | CENTER - | | | | | | LABORATORY | | + + + + + + | Estimated | 10 (L)Comment: For | >60 mL/min/A | [facility] | | | GFR | -Americans, | | [facility] | | | | please multiply the | | MEDICAL | | | | result by 1.210 | | CENTER - | | | | This is an estimated | | LABORATORY | | | | GFR and is based on a | | | | | | standard adult | | | | | | body mass (A=1.73m2) and | | | | | | serum creatinine | | | | + + + + + + | BUN/Creatin | 7.4 (L) | 12 - 20 | [facility] | | | ine Ratio | | | [facility] | | | | | | MEDICAL | | | | | | CENTER - | | | | | | LABORATORY | | + + + + + + | Na | 140 | 136 - 149 mEq/L | [facility] | | | | | | [facility] | | | | | | MEDICAL | | | | | | CENTER - | | | | | | LABORATORY | | + + + + + + | K | 5.1 | 3.5 - 5.1 mEq/l | [facility] | | | | | | [facility] | | | | | | MEDICAL | | | | | | CENTER - | | | | | | LABORATORY | | + + + + + + | Cl | 114 (H) | 98 - 109 mEq/l | [facility] | | | | | | [facility] | | | | | | MEDICAL | | | | | | CENTER - | | | | | | LABORATORY | | + + + + + + | CO2 | 16 (L) | 24 - 31 mEq/L | [facility] | | | | | | [facility] | | | | | | MEDICAL | | | | | | CENTER - | | | | | | LABORATORY | | + + + + + + | Anion Gap | 15.1 | 6.0 - 17.0 | [facility] | | | | | [...] St | [place] | [phone] | | [facility] | | [address] | | | - LABORATORY | | | | + + + + + | [facility] | [address] | [place], [place] | | | [facility] | | [address], [facility] | | | - LABORATORY | | | | + + + + + Chemistry Index (06/02/2013 9:03 AM PDT) + + + + + + | Component | Value | Ref Range | Performed | Pathologist | | | | | At | Signature | + + + + + + | HEMOLYSIS | 1+ (A)Comment: AMYLASE, | None | [facility] | | | INDEX | AMMONIA, CPK, IRON, K+, | | [facility] | | | | LDH, SGOT/AST, | | MEDICAL | | | | SGPT/ALT,and TOTAL | | CENTER - | | | | BILIRUBIN may be | | LABORATORY | | | | adversely affected by | | | | | | 1+hemolysis. | | | | + + + + + + | LIPEMIA | 2+Comment: AMMONIA, | | [facility] | | | INDEX | LACTIC ACID, TOTAL | | [facility] | | | | PROTEIN and MAGNESIUM | | MEDICAL | | | | may beadversely affected | | CENTER - | | | | by 2+ lipemia. | | LABORATORY | | + + + + + + + + | Specimen | + + | | + + + + + | Narrative | Performed At | + + + | Collect By: Nurse | [facility] | | | [facility] | | | [facility]ICAL CENTER | | | - LABORATORY | + + + + + + + + | Performing | Address | City/State/Zipcode | Phone Number | | Organization | | | | + + + + + | [facility] | [address] | [place] | [phone] | | [facility] | | [address] | | | - LABORATORY | | | | + + + + + | [facility] | [address] | [place], [place] | | | [facility] | | [id number] | | | - LABORATORY | | | | + + + + + Basic Metabolic Panel (06/02/2013 9:03 AM PDT) + + + + + + | Component | Value | Ref Range | Performed | Pathologist | | | | | At | Signature | + + + + + + | Glucose | 204 (H) | 70 - 109 mg/dL | [facility] | | | | | | [facility] | | | | | | MEDICAL | | | | | | CENTER - | | | | | | LABORATORY | | + + + + + + | Calcium | 8.0 (L) | 8.3 - 10.5 | [facility] | | | | | mg/dL | [facility] | | | | | | MEDICAL | | | | | | CENTER - | | | | | | LABORATORY | | + + + + + + | BUN | 44 (H) | 7 - 18 mg/dL | [facility] | | | | | | [facility] | | | | | | MEDICAL | | | | | | CENTER - | | | | | | LABORATORY | | + + + + + + | Creatinine | 5.97 (H) | 0.60 - 1.30 | [facility] | | | | | mg/dL | [facility] | | | | | | MEDICAL | | | | | | CENTER - | | | | | | LABORATORY | | + + + + + + | Estimated | 10 (L)Comment: For | >60 mL/min/A | [facility] | | | GFR | -Americans, | | [facility] | | | | please multiply the | | MEDICAL | | | | result by 1.210 | | CENTER - | | | | This is an estimated GFR | | LABORATORY | | | | and is based on a | | | | | | standard adult | | | | | | body mass (A=1.73m2) and | | | | | | serum creatinine | | | | + + + + + + | BUN/Creatin | 7.4 (L) | 12 - 20 | [facility] | | | ine Ratio | | | [facility] | | | | | | MEDICAL | | | | | | CENTER - | | | | | | LABORATORY | | + + + + + + | Na | 140 | 136 - 149 mEq/L | [facility] | | | | | | [facility] | | | | | | MEDICAL | | | | | | CENTER - | | | | | | LABORATORY | | + + + + + + | K | 5.1 | 3.5 - 5.1 mEq/l | [facility] | | | | | | [facility] | | | | | | MEDICAL | | | | | | CENTER - | | | | | | LABORATORY | | + + + + + + | Cl | 114 (H) | 98 - 109 mEq/l | [facility] | | | | | | [facility] | | | | | | MEDICAL | | | | | | CENTER - | | | | | | LABORATORY | | + + + + + + | CO2 | 16 (L) | 24 - 31 mEq/L | [facility] | | | | | | [facility] | | | | | | MEDICAL | | | | | | CENTER - | | | | | | LABORATORY | | + + + + + + | Anion Gap | 15.1 | 6.0 - 17.0 | [facility] | | | | | [...] + + + | Collect By: Nurse | [facility] | | | [facility] | | | [facility] C[facility] | | | - LABORATORY | + + + + + + + + | Performing | Address | City/State/Zipcode | Phone Number | | Organization | | | | + + + + + | [facility] | [address] | [place] | [phone] | | [facility] | | [address] | | | - LABORATORY | | | | + + + + + | [facility] | [address] | [place] | | | [facility] | | [id number] [place] [address] | | | - LABORATORY | | | | + + + + + documented in this encounter Visit Diagnoses Not on filedocumented in this encounter"
--- OUTSIDE RECORDS SUMMARY | ~2020-03-04 | XMS | Encounter Summary ---
Demographics + + + | Address | [address] | | | [place] [address] | + + + | Home Phone | | + + + | Preferred Language | Unknown | + + + | Marital Status | Single | + + + | Hindu Affiliation | Unknown | + + + | Race | or | + + + | Ethnic Group | Not or | + + + Author + + + | Author | [facility] [employer] [facility] | + + + | Organization | [facility] | + + + | Address | [...] Team Providers + +------+ + | Care Tar Pot Man Name | Role | Phone | + [...] | +--------+ + + + + | 05/23/ | Telephone | Clinical | Colleen Amaro, | Pre Transplant | | 2017 | | Transplant Services | RN [address] | Workup (Intake) | | | | [address] | [address] | | | | | [place], | [place], [place] | | | | | [place] [address] | [address] | | | | | [phone] | | | +--------+ + + + [...]
--- OUTSIDE RECORDS SUMMARY | ~2020-03-04 | XMS | Encounter Summary ---
Demographics + + + | Address | [address] | | | [place] [address] | + + + | Home Phone | | + + + | Preferred Language | Unknown | + + + | Marital Status | | + + + | Jehovah'S Witness Affiliation | 1041 | + + + | Race | Unknown | + + + | Ethnic Group | Unknown | + + + Author + + + | Author | [facility] | | | and [place] | + + + | Organization | [facility] | | | and [...] Team Providers + +------+ + | Care Linux Unix System Administrator Name | Role | Phone | + +------+ + PCP | Unavailable | + +------+ + Encounter Details +--------+ + + + + | Date | Type | Department | Care Team | Description | +--------+ + + + + | 04/30/ | Abstract | [facility] [place] | Lexi Kuo W, | | | 2017 | | NEPHROLOGY [address] | | | | | [address] | [address] [place] | | | | | [place] | [place] [address] | | | | | [address] | [phone] | | | | | [phone] | | | +--------+ + + + [...] encounter Progress Notes Dedra Camara - 04/30/2017 9:46 AM PDTOutside records: Fistulogram, arteriovenous from Clemente Diggs MD. Dos: 04-26-17. Sent to scan. documented in this encounter Plan of Treatment Not on filedocumented as of this encounter Visit Diagnoses Not on filedocumented in this encounter"
--- OUTSIDE RECORDS SUMMARY | ~2020-03-04 | XMS | Encounter Summary ---
Demographics + + + | Address | [address] | | | [place] [address] | + + + | Home Phone | | + + + | Preferred Language | Unknown | + + + | Marital Status | | + + + | Mosque Affiliation | 1041 | + + + | Race | Unknown | + + + | Ethnic Group | Unknown | + + + Author + + + | Author | [facility] | | | and [place] | + + + | Organization | [facility] | | [...] Team Providers + +------+ + | Care Flue Gas Analyst Name | Role | Phone | [...] V (HCC) | [place] | [place] [address] | | | | | Procedures | [address] | Phone: | | | | | NE | Phone: | [phone] | | | | | ANASTOMOSIS, | [phone] | Fax: | | | | | AV,ANY SITE | Fax: | [phone] | | | | | | [phone] | | +--------+ + + + + + Reason for Visit + + + | Reason | Comments | + + + | New Patient | | + + + Encounter Details +--------+---------+ + + + | Date | Type | Department | Care Team | Description | +--------+---------+ + + + | 07/24/ | Office | [facility] | Artem Angelo | Chronic kidney | | 2012 | Visit | SURGERY [address] | MD [place], FACS [address] | disease (CKD), stage | | | | [place] | [place] | V ([facility]) (Primary | | | | [address] | [place] [address] | Dx) | | | | [phone] | [phone] | | | | | | | [...] + + + | Blood Pressure | 140/80 | 07/24/2013 9:29 AM | | | | | PDT | | + + + + + | Pulse | 72 | 07/24/2013 9:29 AM | | | | | PDT | | + + + + + | Temperature | 36.7 C (98 F) | 07/24/2013 9:29 AM | | | | | PDT | | + + + + + | Respiratory Rate | 16 | 07/24/2013 9:29 AM | | | | | PDT | | + + + + + | Oxygen Saturation | 97% | 07/24/2013 9:29 AM | | | | | PDT | | + + + + + | Inhaled Oxygen | - | - | | | Concentration | | | | + + + + + | Weight | 129.1 kg (284 lb | 07/24/2013 9:29 AM | | | | 11.2 oz) | PDT | | + + + + + | Height | 185.4 cm (6' 1") | 07/24/2013 9:29 AM | | | | | PDT | | + + + + + | Body Mass Index | 37.56 | 07/24/2013 9:29 AM | | | | | PDT | | + + + + + documented in this encounter Progress Notes , Artem Malik MD - 07/24/2013 9:29 AM PDT Patient Identification: CELSO HERNANDEZ CASE 1960 Is a 53 y.o. male , a patient of Deepali Obrien MD. Chief Complaint: Chief Complaint Patient presents with New Patient Patients Preliminary Questionaire: Have you started dialysis yet? yes How many years have been dialyzed? 2weeks Are you a candidate for kidney transplantation? unknown Who is your Primary Care ? Frances Obrien MD Who is your Grounds And Nursery Specialist/Kidney Specialist ? Dr. [place] When was the current dialysis access placed? 1 month ago What problems are there with the current dialysis access? none HPI CELSO HERNANDEZ CASE is a 53 y.o. male patient of Frances Obrien MD here today for evaluation of AV Fistula consult. Patient is here alone . Physician notes: Patient had PD catheter. Got infected and required removal. Now is gett ing HD via right tunnelled catheter. Needs AV fistula. Has DM, no hand pains. Works in [employer]. RIGHT hand dominant. Date 07/02/2013 done at [facility] CHEST PORTABLE IMPRESSION: 1. RIGHT CENTRAL LINE IN PLACE WITH TIP IN THE MID SUPERIOR VENA CAVA (SVC), NO EVIDENCE FO R COMPLICATIONS. 2. THIS INFORMATION WAS CONVEYED TO SAME DAY SURGERY. Frances Obrien MD's notes were Not available to be reviewed in clinic today. Past Medical History He has a past medical history of Dyslipidemia; Cellulitis and abscess of leg (09/27/2009); Obesity; Vitamin d deficiency; Diabetes mellitus, type 2 (1999); Diabetic foot ulcer (); Arthritis (09/15/2012); Hypertension (2001); Chronic kidney disease (1999); Heart murmur; Recurrent UTI; BPH with urinary obstruction; Hepatitis C (2006); Onychia and paronychia of toe (04/2012); Dysuria (05/2012); and Hyperlipidemia. Past Surgical History He Past Surgical History Procedure Date Knee arthroscopy 2006 & 2007 Bilateral Tonsillectomy 1963 Right arm laceration repair 1977 Left shoulder surgery 1979 Left forearm surgery for fracture 1985 Placement of right internal jugular equistream tunneled dialysis catheter 07/18/2013 And removal of peritoneal dialysis catheter Allergies Allergen Reactions Amlodipine Besylate Unknown Metformin Diarrhea Medications: He has a current medication list which includes the following prescription(s): aspirin, brenda rvastatin, yovany-conrado rx, cholecalciferol, diltiazem, furosemide, gentamicin, insulin glargin e, lisinopril, metoprolol, omeprazole, sevelamer carbonate, sitagliptin, and sodium bicarbon ate. Family History: His family history includes Cirrhosis [...] []On oxygen Cardiac: []Chest pain []Palpitations/heart racing []Swelling of ankles/hands []Unusual shortness of breath []Difficulty sleeping flat Gastrointestinal: []Nausea/vomiting []Difficulty swallowing []Heartburn []Loss of appetite []Abdominal pain []Stomach Ulcers []Diarrhea []Constipation []Blood in stool Vascular: []Santiago/TIAs []Fainting []Difficulty with speech []Leg cramps []Pain in feet/legs at rest []Foot ulcers/sores []Varicose veins []Phlebitis/blood clots Musculoskeletal: []Joint stiffness/swelling []Join pain []Back pain []Arthritis []Gout Urologic: []Blood in urine []Frequent urination at night []Burning/painful urination []Kidney stones []Difficulty urination []Sexual difficulties Neuro/Psychiatric: []Headaches []Seizures []Depression []Pain/anxiety attacks []Memory loss or confusion Objective BP 140/80 | Pulse 72 | Temp 36.7 C (98 F) (Temporal) | Resp 16 | Ht 1.854 m (6' 1") | W t 129.139 kg (284 lb 11.2 oz) | BMI 37.56 kg/m2 | SpO2 97% General Appearance: Alert, cooperative, no distress, appears stated age Head: Normocephalic, without obvious abnormality, atraumatic Eyes: PERRL, conjunctiva/corneas clear, EOM's intact Ears: Adequate hearing Nose: Nares normal, septum midline. Throat: Teeth and gums normal Neck: Supple, symmetrical, no adenopathy, no neck bruits. Lungs: Breath sounds are equal bilaterally, no wheezes or crackles Chest Wall/Back: No tenderness or deformity. No CVA Tenderness, no pacemaker Heart: Regular rate and rhythm, no murmur. Abdomen: Soft, non-tender, no pulsatile nor other masses, no hernia in supine position Extremities: RIGHT arm small veins. LEFT arm 5 mm cephalic vein Palpable pulses Brachial Radial Ulnar Femoral LEFT 2+ 2+ 1+ RIGHT 2+ 2+ 1+ Ultrasound: See report. Neurologic: Cranial nerves II-XII grossly intact, UE motor intact Gait normal ULTRASOUND REPORT: PATIENT NAME : CELSO HERNANDEZ CASE EQUIPMENT: Son[employer]ickies-Immun[employer] with 10-5 mHertz probe. INDICATIONS: Ddialysis access evaluation FINDING: LEFT arm Forearm cephalic vein 3-4 mm, upper cephalic 5.1 mm vein. Ba silic vein large B Artery -- Brachial High bifurcation with 5.1 mm radial artery at elbow. IMPRESSION: adequate brachial artery-cephalic vein sizes. Assessment Celso was seen today for new patient. Diagnoses and associated orders for this visit: Chronic kidney disease (ckd), stage v - Ambulatory referral to General Surgery Plan 1)LEFT arm AV- fistula Due to chronic renal failure recommend AV fistula placement LEFT arm. LET antecubital radi al artery to cephalic vein fistula. Risks and possible complications including bleeding, infection, hand pain, failure for vein to dilate, KS stroke and was explained. No guarantees given or implied. Patient under stands and wishes to proceed. Return to clinic in One week after surgery. Artem Angelo MD CC: Frances Orbien MD documente d in this encounter Plan of Treatment + + +--------+ + + | Name | Type | Priori | Associated Diagnoses | Order Schedule | | | | ty | | | + + +--------+ + + | Ambulatory referral | Outpatient | Routin | Chronic kidney | Ordered: 07/24/2013 | | to General Surgery | Referral [...]
--- OUTSIDE RECORDS SUMMARY | ~2020-03-04 | XMS | Encounter Summary ---
Demographics + + + | Address | [address] | | | [place] [address] | + + + | Home Phone | | + + + | Preferred Language | Unknown | + + + | Marital Status | | + + + | Yazidi Affiliation | 1041 | + + + | Race | Unknown | + + + | Ethnic Group | Unknown | + + + Author + + + | Author | [facility] | | | and [place] | + + + | Organization | [facility] | | | and [...] Team Providers + +------+ + | Care Marketing Reporting Analyst Name | Role | Phone | + +------+ + PCP | Unavailable | + +------+ + Encounter Details +--------+ + + + + | Date | Type | Department | Care Team | Description | +--------+ + + + + | 02/05/ | Off-Site | [facility] [place] | Uche Orozco | End stage renal | | 2018 | Visit | NEPHROLOGY [address] | M, DO [address] | disease (HCC) | | | | [address] | [place], [place] | (Primary Dx) | | | | [place], [place] | [place] | | | | | [address] | [address] | | | | | [phone] | | | +--------+ + + + [...] + + + | Blood Pressure | 147/83 | 02/04/2018 11:11 AM | | | | | PDT | | + + + + + | Pulse | - | - | | + + + + + | Temperature | 36.5 C (97.7 F) | 02/04/2018 11:11 AM | | | | | PDT [...] + + + + | Weight | 120 kg (264 lb 8.8 | 02/04/2018 11:11 AM | | | | oz) | PDT | | + + + + + | Height | - | - | | + + + + + | Body Mass Index | 34.9 | 02/18/2015 10:22 AM | | | | | PDT | | + + + + + documented in this encounter Progress Notes Uche Orozco DO - 02/04/2018 9:30 AM PDT Subjective: DAVITA DIALYSIS NOTE Patient ID: Celso Caro is a 57 y.o. male. HPI Comments: Herman is seen at the [facility] on HD with QB = 450 at his le ft arm AVF. He has a staccato cough, difficulty raising secretions, mild shortness of breat h with coughing. He had an influenza-like illness 3.5 weeks ago now this cough with white p hlegm production. He looks ill but not toxic. He is keeping his meds down. No fever here today. He also has PMH of T2DM, requiring insulin, anemia secondary to CKD, hyperlipidemia, and SHPTH, and Hepatitis C. Outpatient Prescriptions Marked as Taking for the 02/04/18 encounter (Off-Site Visit) with Jean Orozco DO Medication Sig Dispense Refill aspirin 81 mg EC tablet Take 81 mg by mouth Daily. atorvaSTATin (LIPITOR) 20 mg tablet Take 1 tablet by mouth Daily. 30 tablet 5 B Iehgddd-B-Xmgyw Acid (OLEG-TEQUILA RX) 1 MG TABS Take 1 mg by mouth Daily. 30 each 11 [DISCONTINUED] calcium acetate (PHOSLO) 667 mg capsule Take 1,334 mg by mouth 3 times d aily (with meals). Cholecalciferol (VITAMIN D3) 5000 UNITS CAPS Take [...] Amlodipine Besylate Unknown Metformin Diarrhea Objective: BP 147/83 | Temp 36.5 C (97.7 F) | Wt 120 kg (264 lb 8.8 oz) | BMI 34.90 kg/m EDW 120 kg Physical Exam Heart: Regular rate and rhythm with no S3, S4, murmur or rub. Lungs: Fine rales at RLL, left lung field clear, prolonged expiratory phase, no true wheez es. Abdomen: Soft, flat, nontender, normoactive bowel sounds. Extremities: 1+ edema, no rash, AVF at left arm is clear and dry. Lab: BUN 49, Cr 8.52, K+ 4.8, CO2 28, Ca++ 9.2, phosphorus 7.1, albumin 3.2, PTH 609, Hb 10.5, HbA1c not listed ?, eKT/V = 1.34. Assessment: 1. ESRD--his adequacy is improved on his current Rx. 2. Probable acute bronchitis--cannot exclude early bronchopneumonia? 3. Hypertension-- stable on his current regimen including lisinopril, and UF at the curre nt dry weight. 4. Anemia secondary to CKD-- need to recheck his iron stores and review his TSat? Hb is w ithin target. 5. Nutrition--overall, his serum albumin is trending up over the last 90 days. 6. CKD/MBD--PTH is decreasing but still above target. He is doing somewhat better with hi s P04 control. 7. Type 2 DM-- need to repeat his glycosylated hemoglobin. 8. Hepatitis C--most recent AST = 17. 9. Hyperlipidemia--on statin Rx. 10. Transplantation--work up in progress. Plan: 1. I am somewhat concerned about his cough and sputum production. Will have him begin иван thromycin 500 mg, Q daily 7 days. 2. I gave him an Rx to go to [facility], XR department for a 2 view CXR tomorrow. He a grees to do this. 3. I think his adequacy, and dry weight are adequate at this point. 4. Need to recheck his HbA1c and TSat, ferritin next month. 5. I told him to call if his symptoms worsen or he should go to the Walk[facility] Clinic at [facility] : [facility] Monica Cornejo MD documented in thi s encounter Plan of Treatment Not on filedocumented as of this encounter Procedures + +--------+ + + + | Procedure Name | Priori | Date/Time | Associated Diagnosis | Comments | | | ty | | | | + +--------+ + + + | IMAGING REPORT - | | 02/05/2018 | | Results for this | | EXTERNAL SCAN | | 12:00 AM | | procedure are in the | | | | PDT | | results section. | + +--------+ + + + documented in this encounter Results IMAGING REPORT - EXTERNAL SCAN (02/05/2018 12:00 AM PDT) + + + | [...]
--- OUTSIDE RECORDS SUMMARY | ~2020-03-04 | XMS | Encounter Summary ---
Demographics + + + | Address | [address] | | | [place] [address] | + + + | Home Phone [...] | Organization | [facility] | | | and [place] [...] Team Providers + +------+ + | Care Hosting Engineer Name | Role | Phone | + +------+ + PCP | Unavailable | + +------+ + Encounter Details +--------+ + + + + | Date | Type | Department | Care Team | Description | +--------+ + + + + | 01/08/ | Abstract | [facility] [place] | Emmanuelthalrenetta, | | | 2012 | | NEPHROLOGY [address] | Sarai Osei, [address] | | | | | [address] | [address], [place] | | | | | [place] | [address] [place] | | | | | [address] | [address] | | | | | [phone] | | | +--------+ + + + [...]
--- OUTSIDE RECORDS SUMMARY | ~2020-03-04 | XMS | Encounter Summary ---
Demographics + + + | Address | [address] | | | [place] [address] | + + + | Home Phone | | + + + | Preferred Language | Unknown | + + + | Marital Status | Single | + + + | Temple Affiliation | Unknown | + + + | Race | or | + + + | Ethnic Group | Not or | + + + Author + + + | Author | [facility] | + + + | Organization | [facility] | + + + | Address [...] Team Providers + +------+ + | Care Mill House Supervisor Name | Role | Phone | + +------+ + | Frances Obrien MD | PCP | | + +------+ + Reason for Visit + + + | Reason | Comments | + + + | Pre Transplant | care everywhere refresh | | Workup | | + + + Encounter Details +--------+ + + + + | Date | Type | Department | Care Team | Description | +--------+ + + + + | 12/11/ | Abstract | Clinical | Colleen Amaro, | Pre Transplant | | 2015 | | Transplant Services | RN [address] | Workup (care | | | | [address] | [address] | everywhere refresh) | | | | [place], | [place], [place] | | | | | [place] [address] | [address] | | | | | [phone] | | | +--------+ + + + [...]
--- OUTSIDE RECORDS SUMMARY | ~2020-03-04 | XMS | Encounter Summary ---
Demographics + + + | Address | [address] | | | [place] [address] | + + + | Home Phone | | + + + | Preferred Language | Unknown | + + + | Marital Status | | + + + | Roman Catholic Affiliation | 1041 | + + + | Race | Unknown | + + + | Ethnic Group | Unknown | + + + Author + + + | Author | [facility] | | | and [place] | + + + | Organization | [facility] | | | and [place] | [...] Team Providers + +------+ + | Care Cq Developer Name | Role | Phone | [...] + + | 09/21/ | Emergency | [facility] | Riley Reilly S, | Occluded PICC line, | | 2018 | | [facility] | MD [address] | initial encounter | | | | CENTER [address] | [place] | ([facility]) (Primary Dx); | | | | [place] | [address] | Elevated blood | | | | [address] | | pressure reading | | | | [phone] | | | +--------+ + + + [...] Everywhere.Flushing Your P ICC Line at Home (Macanese)PICC Line Care (Macanese)documented in this encounter Medications at Time of Discharge + + + +---------+ + + | Medication | Sig | Dispensed | Refills | Start | End Date | | | | | | Date | | + + + +---------+ + + | B Fttitle-T-Avnmp | Take 1 mg by mouth | [...] | | | g) 3 gIndications: | [place]. Indications: | | | | | | [...]
--- OUTSIDE RECORDS SUMMARY | ~2020-03-04 | XMS | Encounter Summary ---
Demographics + + + | Address | [address] | | | [place] [address] | + + + | Home Phone [...] | Organization | [facility] | | | and [...] Team Providers + +------+ + | Care Nanotechnology Technician Name | Role | Phone | + +------+ + PCP | Unavailable | + +------+ + Encounter Details +--------+ + + + + | Date | Type | Department | Care Team | Description | +--------+ + + + + | 05/30/ | Orders Only | [facility] [place] | Fackenthall, | Chronic kidney | | 2013 | | NEPHROLOGY [address] | [place] [address] | disease (CKD), stage | | | | [address] | [address], [place] | V ([facility]) (Primary | | | | [place], [place] | [address] [place], [place] | Dx); Secondary | | | | [address] | [address] | hyperparathyroidism | | | | [phone] | | (of renal origin) | | | | | | (HCC) [...] documented as of this encounter Progress Notes Joana Grijalva RN - 05/30/2013 3:01 PM PDTLabs for nephrology appt on 06/19/13 sent to Tiera Pittmanronically signed by Joana Grijalva RN at 05/30/2013 3:04 PM PDTdocumented riya n this encounter Plan of Treatment + +------+--------+ + + | Name | Type | Priori | Associated Diagnoses | Order Schedule | | | | ty | | | + +------+--------+ + + | Comprehensive | Lab | Routin | Chronic kidney | Expected: 06/12/2013 | | Metabolic Panel | | e | disease (CKD), stage | (Approximate), | | | | | V (HCC) | Expires: 05/30/2014 | + +------+--------+ + + | Phosphorus | Lab | Routin | Chronic kidney | Expected: 06/12/2013 | | | | e | disease (CKD), stage | (Approximate), | | | | | V (HCC) | Expires: 05/30/2014 | + +------+--------+ + + | Parathyroid Hormone, | Lab | Routin | Chronic kidney | Expected: 06/12/2013 | | Intact | | e | disease (CKD), stage | (Approximate), | | | | | V (HCC) Secondary | Expires: 05/30/2014 | | | | | hyperparathyroidism | | | | | | (of renal origin) | | | | | | (HCC) | | + +------+--------+ + + | Hepatitis B Surface | Lab | Routin | Chronic kidney | Expected: 06/12/2013 | | Ab | | e | disease (CKD), stage | (Approximate), | | | | | V (HCC) | Expires: 05/30/2014 | + +------+--------+ + + | Hepatitis B Surface | Lab | Routin | Chronic kidney | Expected: 06/12/2013 | | Ag | | e | disease (CKD), stage | (Approximate), | | | | | V (HCC) | Expires: 05/30/2014 | + +------+--------+ + + | Hepatitis C Ab | Lab | Routin | Chronic kidney | Expected: 06/12/2013 | | | | e | disease (CKD), stage | (Approximate), | | | | | V (HCC) | Expires: 05/30/2014 | + +------+--------+ + + documented as of this encounter Visit Diagnoses + + | Diagnosis | + + | Chronic kidney disease (CKD), stage V (HCC) - Primary Chronic kidney disease, Stage V | + + | Secondary hyperparathyroidism (of renal origin) | + + documented in this encounter"
--- OUTSIDE RECORDS SUMMARY | ~2020-03-04 | XMS | Encounter Summary ---
Demographics + + + | Address | [address] | | | [place] [address] | + + + | Home Phone | | + + + | Preferred Language | Unknown | + + + | Marital Status | | + + + | Latter Day Affiliation | 1041 | + + + | Race | Unknown | + + + | Ethnic Group | Unknown | + + + Author + + + | Author | [facility] | | | and [place] | + + + | Organization | [facility] | | | and [...] Team Providers + +------+ + | Care Retail Pharmacy Manager Name | Role | Phone | + +------+ + PCP | Unavailable | + +------+ + Encounter Details +--------+ + + + + | Date | Type | Department | Care Team | Description | +--------+ + + + + | 01/22/ | Abstract | [facility] [place] | Uche Orozco | | | 2017 | | NEPHROLOGY [address] | M, DO [address] | | | | | [address] | [place], [address] | | | | | [place] | [place] | | | | | [address] | [address] | | | | | [phone] | | | +--------+ + + + [...] this encounter Progress Notes Dedra Camara - 01/22/2017 12:34 PM PDTOutside records: Fistulogram, arteriovenous from Dontae Cornejo MD. Dos: 01/18/17. Sent to scan. documented in this encounter Plan of Treatment Not on filedocumented as of this encounter Visit Diagnoses Not on filedocumented in this encounter"
--- OUTSIDE RECORDS SUMMARY | ~2020-03-04 | XMS | Encounter Summary ---
Demographics + + + | Address | [address] | | | [place] [address] | + + + | Home Phone [...] + + | Author | [facility] | | | and [place] | + + + | Organization | [facility] | | | and [...] Team Providers + +------+ + | Care Mainspring Winder And Oiler Name | Role | Phone | + [...] | [address] | [place], [address] | (Primary Dx) | | | | [place], [place] | [place] | | | | | [address] | [address] | | | | | [phone] | | | +--------+ + + + [...] HPI Comments: Herman is seen at the [facility] on HD with QB = 450 at [...] by mouth Daily. 30 tablet 5 B Kunyxnu-E-Hmsla Acid (OLEG-TEQUILA RX) 1 MG TABS Take [...] gave him an Rx to go to [facility], XR department for a 2 view CXR tomorrow. He a grees to do this. 3. I think his adequacy, and dry weight are adequate at this point. 4. Need to recheck his HbA1c and TSat, ferritin next month. 5. I told him to call if his symptoms worsen or he should go to the Walk[facility] Clinic at [facility] : [facility] Monica Cornejo MD documented in thi s [...]
--- OUTSIDE RECORDS SUMMARY | ~2020-03-04 | XMS | Encounter Summary ---
Demographics + + + | Address | [address] | | | [place] [address] | + + + | Home Phone | | + + + | Preferred Language | Unknown | + + + | Marital Status | | + + + | Caodaism Affiliation | 1041 | + + + | Race | Unknown | + + + | Ethnic Group | Unknown | + + + Author + + + | Author | [facility] | | | and [place] | + + + | Organization | [facility] | | | and [place] | [...] Team Providers + +------+ + | Care Ferryboat Operator Name | Role | Phone | [...] [address] | [address], [place] | | | | | [place] | [address] [place] | | | | | [address] | [address] | | | | | [phone] | | | +--------+ + + + [...]
--- OUTSIDE RECORDS SUMMARY | ~2020-03-04 | XMS | Encounter Summary ---
Demographics + + + | Address | [address] | | | [place] [address] | + + + | Home Phone [...] + | Organization | [facility] | | | and [...] Team Providers + +------+ + | Care Making Department Preparer Name | Role | Phone | + +------+ + PCP | Unavailable | + +------+ + Encounter Details +--------+ + + + + | Date | Type | Department | Care Team | Description | +--------+ + + + + | 05/08/ | Abstract | [facility] [place] | Emmanuelthalrenetta, | | | 2012 | | NEPHROLOGY [address] | Sarai Osei, [address] | | | | | [address] | [address], [place] | | | | | [place] | [address] [place] | | | | | [address] | [address] | | | | | [phone] | | | +--------+ + + + [...] + +--------+ + + + | CBC W/AUTO | Routin | 05/08/2013 | | Results for this | | DIFFERENTIAL | e | | | procedure are in the | | | | | | results section. | + +--------+ + + + documented in this encounter Results CBC w/ Auto Differential (05/08/2013) + + + + + + | Component | Value | Ref Range | Performed | Pathologist | | | | | At | Signature | + + + + + + | WBC | 8.0 | K/uL | | | + + + + + + | Hemoglobin | 12.0 (A) | 13.2 - 17.0 | | | | | | g/dL | | | + + + + + + | Hematocrit | 34.4 (A) | 39.0 - 50.0 % | | | + + + + + + | Platelet | 238 | 150 - 400 K/uL | | | | Count | | | | | + + + + + + | MCV | 87.3 | 80.0 - 100.0 fL | | | + + + + + + + + | Specimen | + + | Blood specimen | | (specimen) | + + documented in this encounter Visit Diagnoses Not on filedocumented in this encounter"
--- OUTSIDE RECORDS SUMMARY | ~2020-03-04 | XMS | Encounter Summary ---
Demographics + + + | Address | [address] | | | [place] [address] | + + + | Home Phone | | + + + | Preferred Language | Unknown | + + + | Marital Status | | + + + | Oriental Orthodox Affiliation | 1041 | + + + | Race | Unknown | + + + | Ethnic Group | Unknown | + + + Author + + + | Author | [facility] | | | and [place] | + + + | Organization | [facility] | | | and [place] [...] Team Providers + +------+ + | Care Hand Roller Engraver Name | Role | Phone | + [...] | renal | PA-C [address] | [address] | | | | | disease | [address] | [place], [place] | | | | | ([facility]) | [place] | 100 [facility] | | | | | Procedures | [address] | [place] | | | | | [place] ESRD | [place], | [address] Phone: | | | | | RELATED SVC | [place] | [phone] | | | | | MONTHLY | [address] | Fax: | | | | | 20&/> YR OLD | Phone: | [phone] | | | | | 4/> VISITS | [phone] | | | | | | dialysis | Fax: | | | | | | | [phone] | | + +--------+ + + + [...] | [address] | [place], [place] [address] | (Primary Dx) | | | | [place], [place] | [place] | | | | | [address] | [address] | | | | | [phone] | | | +--------+ + + + [...] YO male who was discharg ed from [facility] on IV ceftazidime/bank via PICC line on [...] mouth 2 times daily. 60 tablet B Gspsdhv-M-Luoru Acid (OLEG-TEQUILA RX) 1 MG TABS Take [...] on the current EPO anemia algorithm. : [facility] Toby Schuster DPM documented in [...]
--- OUTSIDE RECORDS SUMMARY | ~2020-03-04 | XMS | Encounter Summary ---
Demographics + + + | Address | [address] | | | [place] [address] | + + + | Home Phone | | + + + | Preferred Language | Unknown | + + + | Marital Status | | + + + | Orthodoxy Affiliation | 1041 | + + + | Race | Unknown | + + + | Ethnic Group | Unknown | + + + Author + + + | Author | [facility] | | | and [place] | + + + | Organization | [facility] | | | and [place] [...] + +------+ + | Care Director Of Diversity And Inclusion Name | Role | Phone | + [...] | | | disease | NW | [place], [place] | | | | | ([facility]) | [place] | [address] | | | | | Procedures | [address] | [place] | | | | | ID OFFICE | [facility] | [id number] Phone: | | | | | OUTPATIENT | [place] | [phone] | | | | | VISIT 25 | [address] | Fax: | | | | | MINUTES | Phone: | [phone] | | | | | dialysis | [phone] | | | | | | | Fax: | | | | | | | [phone] | | +--------+--------+ + + + + Encounter Details +--------+ + + + + | Date | Type | Department | Care Team | Description | +--------+ + + + + | 05/20/ | Off-Site | [facility] [place] | Uche Orozco | End stage renal | | 2018 | Visit | NEPHROLOGY [address] | M, DO [address] | disease (HCC) | | | | [address] | [place], [place] [address] | (Primary Dx) | | | | [place] | [place] | | | | | [address] | [address] | | | | | [phone] | | | +--------+ + + + [...] + + + | Blood Pressure | 163/83 | 05/20/2018 6:04 PM | | | | | PDT | | + + + + + | Pulse | - | - | | + + + + + | Temperature | 36.7 C (98 F) | 05/20/2018 6:04 PM | | | | | PDT [...] encounter Progress Notes Uche Orozco DO - 05/20/2018 9:30 AM PDT Subjective: DAVITA DIALYSIS NOTE [...] Outpatient Prescriptions Marked as Taking for the 05/20/18 encounter (Off-Site Visit) with Jean Orozco DO Medication Sig Dispense Refill aspirin 81 mg EC tablet Take 81 mg by mouth Daily. B Iamgplv-B-Cwpyb Acid (OLEG-TEQUILA RX) 1 MG TABS Take 1 mg by mouth Daily. 30 each 11 Cholecalciferol (VITAMIN D3) 5000 UNITS CAPS Take 2,000 Units by mouth Daily. cinacalcet (SENSIPAR) 60 MG tablet Take 1 tablet by mouth Daily. 30 tablet doxercalciferol (HECTOROL) 2 mcg/mL injection Inject 7.5 mcg into the vein Three times a week. epoetin padilla (EPOGEN,PROCRIT) 3,000 units/mL injection Inject 6,000 Units under the ski n Three times [...] Amlodipine Besylate Unknown Metformin Diarrhea Objective: BP 163/83 | Temp 36.7 C (98 F) EDW 118.5 kg Physical Exam Heart: Regular rate and rhythm with no S3, S4, murmur or rub. Lungs: CTA in all valle. No rales or wheezes. Abdomen: Soft, flat, nontender, normoactive bowel sounds. Extremities: 1+ edema, no rash, AVF at left arm is clear and dry. LAB: BUN 44, Cr 8.2, K+ 4.6, HCO3 29, Ca++ 8.8, HP04 6.6, albumin 3.9, PTH 614, Hb 11.1, TSat = 20%, ferritin 819, spKT/V = 1.21. Assessment: 1. ESRD-- his adequacy appears stable for now. He does appear to have moderate intradialy tic weight gains. 2. Hypertension-- his BP is trending upward and he may need some reduction in his physi ologic "dry weight? 3. Anemia secondary to CKD-- the Hb appears satisfactory on the current dose of EPO. His iron stores appear adequate. 4. Nutrition-- nutrition is stable. 5. 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 His PTH is about same. He has declined para thyroidectomy in the past. 6. Type 2 DM-- unclear reasons, apparently Teo has declined to draw HbA1c with the [facility] lab? Will draw separately. 7. Hepatitis C-- stable. 8. Hyperlipidemia--on statin Rx. 9. Transplantation--work up in progress. Plan: 1. The vintage on his standing rock AVF is becoming longer. He has had intervention previously . 2. I encouraged Herman that it would be ideal to drive the serum P04 lower and target PTH < 300 pg/mL. 3. Need to recheck his HbA1c somehow to monitor his glycemic control? 4. If his BP does not improve will need to decrease his dry weight by 1 kg? Will recheck him in one month with lab. : [facility] documented in thi s encounter Plan of Treatment Not on filedocumented as of this encounter Visit Diagnoses + + | Diagnosis | + + | End stage renal disease (HCC) - Primary End stage renal disease | + + documented in this encounter
--- OUTSIDE RECORDS SUMMARY | ~2020-03-04 | XMS | Encounter Summary ---
Demographics + + + | Address | [address] | | | [place] [address] | + + + | Home Phone [...] + | Organization | [facility] | [...] Team Providers + +------+ + | Care Fire Sprinkler Service Technician Name | Role | Phone | [...] | | | | stage V | [place], | [place], | | | | | ([facility]) | [place] | [place] [address] | | | | | Procedures | [address] | Phone: | | | | | INSERT | Phone: | [phone] | | | | | TUNNELED CV | [phone] | Fax: | | | | | CATH W/O | Fax: | [phone] | | | | | [place] PUMP | [phone] | | +--------+ + + + + [...] [place] | | | | | | [address] | | | | | | [phone] | | | +--------+ + + + [...]
--- OUTSIDE RECORDS SUMMARY | ~2020-03-04 | XMS | Encounter Summary ---
Demographics + + + | Address | [address] | | | [place] [address] | + + + | Home Phone | | + + + | Preferred Language | Unknown | + + + | Marital Status | | + + + | Jainism Affiliation | 1041 | + + + | Race | Unknown | + + + | Ethnic Group | Unknown | + + + Author + + + | Author | [facility] | | | and [place] | + + + | Organization | [facility] | | | and [...] Team Providers + +------+ + | Care Forensic Computer Examiner Name | Role | Phone | + +------+ + PCP | Unavailable | + +------+ + Encounter Details +--------+ + + + + | Date | Type | Department | Care Team | Description | +--------+ + + + + | 10/17/ | Abstract | [facility] | [place], | | | 2012 | | NEPHROLOGY [address] | Sarai Osei, [place] [address] | | | | | [address] | [address], [place] | | | | | [place] | [address] [place] | | | | | [address] | [address] | | | | | [phone] | | | +--------+ + + + [...] | + +--------+ + + + | CREATININE | Routin | 10/10/2012 | | Results for this | | CLEARANCE, RESULT | e | | | procedure are in the | | | | | | results section. | + +--------+ + + + | [facility] | Routin | 10/04/2012 | | Results for this | | PANEL | e | | | procedure are in the | | | | | | results section. | + +--------+ + + + | COMPREHENSIVE | Routin | 10/16/2011 | | Results for this | | METABOLIC PANEL | e | | | procedure are in the | | | | | | results section. | + +--------+ + + + | COMPREHENSIVE | Routin | 01/12/2011 | | Results for this | | METABOLIC PANEL | e | | | procedure are in the | | | | | | results section. | + +--------+ + + + | RENAL FUNCTION PANEL | Routin | 03/23/2010 | | Results for this | | | e | | | procedure are in the | | | | | | results section. | + +--------+ + + + | COMPREHENSIVE | Routin | 12/29/2009 | | Results for this | | METABOLIC PANEL | e | | | procedure are in the | | | | | | results section. | + +--------+ + + + | COMPREHENSIVE | Routin | 10/13/2009 | | Results for this | | METABOLIC PANEL | e | | | procedure are in the | | | | | | results section. | + +--------+ + + + documented in this encounter Results Creatinine Clearance, Result (10/10/2012) + + + + + + | Component | Value | Ref Range | Performed | Pathologist | | | | | At | Signature | + + + + + + | CREATININE | 25.0 (A) | 97.0 - 137.0 | [facility] | | | CLEARANCE | | mL/min | [facility] | | | | | | [facility] | | | | [facility] - | | | | | | LABORATORY | | + + + + + + | CREA | 4.8 | mg/dL | [facility] | | | | | | [facility] | | | | | | [facility] | | | | | | C[facility] - | | | | | | LABORATORY | | + + + + + + | CREAT CLEAR | 2,500 | ml | [facility] | | | VOLUME | | | [facility] | | | | | | [facility] | | | | | | CENTER - | | | | | | LABORATORY | | + + + + + + | PROTEIN, | 17,675.0 | mg/24hrs | [facility] | | | 24HR URINE | | | [facility] | | | | | | MEDICAL | | | | | | CENTER - | | | | | | LABORATORY | | + + + + + + | Estimated | 13.0 | mL/min/1.73m2 | [facility] | | | GFR | | | [facility] | | | [facility] | | [facility] | | | | | | CENTER - | | | | | | LABORATORY | | + + + + + + + + | Specimen | + + | Urine specimen | | (specimen) | + + + + + + + | Performing | Address | City/State/Zipcode | Phone Number | | Organization | | | | + + + + + | [facility] | [address] | [place] | [phone] | | [facility] | | [address] | | | - LABORATORY | | | | + + + + + | [facility] | [address] | [place] | | | [facility] | | [address] [place] [address] | | | - LABORATORY | | | | + + + + + [facility] GENER[facility]ALTH PANEL (10/04/2012) + +-------+ + + + | Component | Value | Ref Range | Performed | Pathologist | | | | | At | Signature | + +-------+ + + + | Na | 141 | mmol/L | | | + +-------+ + + + | K | 5.2 | mmol/L | | | + +-------+ + + + | Cl | 111 | mmol/L | | | + +-------+ + + + | CO2 | 18 | mmol/L | | | + +-------+ + + + | Glucose | 176 | mg/dL | | | + +-------+ + + + | BUN | 48 | mg/dL | | | + +-------+ + + + | CREA | 4.8 | mg/dL | | | + +-------+ + + + | Estimated | 13.0 | mL/min/1.73m2 | | | | GFR | | | | | + +-------+ + + + | Calcium | 8.7 | mg/dL | | | + +-------+ + + + | AST | 17 | 5 - 40 U/L | | | + +-------+ + + + | ALT | 13 | U/L | | | + +-------+ + + + | Alkaline | 75 | 38 - 110 U/L | | | | Phosphatase | | | | | + +-------+ + + + | Bilirubin | 0.3 | 0.1 - 1.5 mg/dL | | | | Total | | | | | + +-------+ + + + | Albumin | 3.5 | 3.5 - 5.0 g/dL | | | + +-------+ + + + | TSH | 1.93 | uIU/mL | | | + +-------+ + + + | Vit D, | 20 | | | | | 25-Hydroxy | | | | | + +-------+ + + + | Uric Acid | 7.3 | mg/dL | | | + +-------+ + + + | Cholesterol | 295 | mg/dL | | | + +-------+ + + + | Triglycerid | 395 | | | | | es | | | | | + +-------+ + + + | HDL | 34 | mg/dL | | | + +-------+ + + + | LDL | 182 | | | | | Cholesterol | | | | | + +-------+ + + + + + | Specimen | + + | | + + Comprehensive Metabolic Panel (10/16/2011) + +-------+ + + + | Component | Value | Ref Range | Performed | Pathologist | | | | | At | Signature | + +-------+ + + + | Na | 143 | mmol/L | [facility] | | | | | | [facility] | | | | | | [facility] | | | | | | CENTER - | | | | | | LABORATORY | | + +-------+ + + + | K | 5.3 | mmol/L | [facility] | | | | | | [facility] | | | | | | [facility] | | | | | | CENTER - | | | | | | LABORATORY | | + +-------+ + + + | Cl | 104 | mmol/L | [facility] | | | | | | [facility] | | | | | | MEDICAL | | | | | | CENTER - | | | | | | LABORATORY | | + +-------+ + + + | CO2 | 22 | mmol/L | [facility] | | | | | | [facility] | | | | | | [facility]ICAL | | | | | | CENTER - | | | | | | LABORATORY | | + +-------+ + + + | Glucose | 93 | mg/dL | [facility] | | | | | | [facility] | | | | | | [facility] | | | | | | CENTER - | | | | | | LABORATORY | | + +-------+ + + + | BUN | 40 | mg/dL | [facility] | | | | | | [facility] | | | | | | [facility]ICAL | | | | | | CENTER - | | | | | | LABORATORY | | + +-------+ + + + | CREA | 3.3 | mg/dL | [facility] | | | | | | [facility] | | | | | | [facility] | | | | | | CENTER - | | | | | | LABORATORY | | + +-------+ + + + | Calcium | 8.7 | mg/dL | [facility] | | | | | | [facility] | | | | | | [facility] | | | | | | CENTER - | | | | | | LABORATORY | | + +-------+ + + + | AST | 22 | 5 - 40 U/L | [facility] | | | | | | [facility] | | | | | | MEDICAL | | | | | | CENTER - | | | | | | LABORATORY | | + +-------+ + + + | ALT | 19 | U/L | [facility] | | | | | | [facility] | | | | | | [facility] | | | | | | CENTER - | | | | | | LABORATORY | | + +-------+ + + + | Alkaline | 51 | 38 - 110 U/L | [facility] | | | Phosphatase | | | [facility] | | | | | | MEDICAL | | | | | | CENTER - | | | | | | LABORATORY | | + +-------+ + + + | Bilirubin | 0.3 | 0.1 - 1.5 mg/dL | [facility] | | | Total | | | [facility] | | | | | | MEDICAL | | | | | | CENTER - | | | | | | LABORATORY | | + +-------+ + + + | Albumin | 3.6 | 3.5 - 5.0 g/dL | [facility] | | | | | | [facility] | | | | | | [facility]ICAL | | | | | | CENTER - | | | | | | LABORATORY | | + +-------+ + + + | TSH | 4.59 | uIU/mL | [facility] | | | | | | [facility] | | | | | | [facility]ICAL | | | | | | CENTER - | | | | | | LABORATORY | | + +-------+ + + + | Estimated | 20.0 | mL/min/1.73m2 | [facility] | | | GFR | | | [facility] | | [...] ST. | [address] | [place], [place] | [phone] | | [facility] | | [address] | | | - LABORATORY | | | | + + + + + | [facility] | | | | | [facility] | | | | | - LABORATORY | | | | + + + + + Comprehensive Metabolic Panel (01/12/2011) + +---------+ + + + | Component | Value | Ref Range | Performed | Pathologist | | | | | At | Signature | + +---------+ + + + | Na | 140 | mmol/L | [facility] | | | | | [facility] | | | | | | [facility]ICAL | | | | | | CENTER - | | | | | | LABORATORY | | + +---------+ + + + | K | 4.3 | mmol/L | [facility] | | | | | | [facility] | | | | | | [facility] | | | | | | CENTER - | | | | | | LABORATORY | | + +---------+ + + + | Cl | 108 | mmol/L | [facility] | | | | | | [facility] | | | | | | MEDICAL | | | | | | CENTER - | | | | | | LABORATORY | | + +---------+ + + + | CO2 | 24 | mmol/L | [facility] | | | | | | [facility] | | | | | | [facility] | | | | | | CENTER - | | | | | | LABORATORY | | + +---------+ + + + | Glucose | 193 | mg/dL | [facility] | | | | | | [facility] | | | | | | [facility] | | | | | | CENTER - | | | | | | LABORATORY | | + +---------+ + + + | BUN | 24 | mg/dL | [facility] | | | | | | [facility] | | | | | | [facility] | | | | | | CENTER - | | | | | | LABORATORY | | + +---------+ + + + | CREA | 2.3 | mg/dL | [facility] | | | | | | [facility] | | | | | | [facility] | | | | | | CENTER - | | | | | | LABORATORY | | + +---------+ + + + | Estimated | 30.0 | mL/min/1.73m2 | [facility] | | | GFR | | | [facility] | | | | | | MEDICAL | | | | | | CENTER - | | | | | | LABORATORY | | + +---------+ + + + | Calcium | 8.8 | mg/dL | [facility] | | | | | | [facility] | | | | | | MEDICAL | | | | | | CENTER - | | | | | | LABORATORY | | + +---------+ + + + | AST | 12 | 5 - 40 U/L | [facility] | | | | | | [facility] | | | | | | [facility]ICAL | | | | | | CENTER - | | | | | | LABORATORY | | + +---------+ + + + | ALT | 10 | U/L | [facility] | | | | | | [facility] | | | | | | MEDICAL | | | | | | CENTER - | | | | | | LABORATORY | | + +---------+ + + + | Alkaline | 48 | 38 - 110 U/L | [facility] | | | Phosphatase | | | [facility] | | | | | | MEDICAL | | | | | | CENTER - | | | | | | LABORATORY | | + +---------+ + + + | Bilirubin | 0.5 | 0.1 - 1.5 mg/dL | [facility] | | | Total | | | [facility] | | | | | | MEDICAL | | | | | | CENTER - | | | | | | LABORATORY | | + +---------+ + + + | Albumin | 3.1 (A) | 3.5 - 5.0 g/dL | [facility] | | | | | | [facility] | | | | | | [facility] | | | | | | CENTER - | | | | | | LABORATORY | | + +---------+ + + + | Cholesterol | 261 | mg/dL | [facility] | | | | | | [facility] | | | | | | MEDICAL | | | | | | CENTER - | | | | | | LABORATORY | | + +---------+ + + + | Triglycerid | 326 | | [facility] | | | es | | | [facility] | | | | | | MEDICAL | | | | | | CENTER - | | | | | | LABORATORY | | + +---------+ + + + | HDL | 37 | mg/dL | [facility] | | | | | | [facility] | | | | | | MEDICAL | | | | | | CENTER - | | | | | | LABORATORY | | + +---------+ + + + | LDL | 159 | | [facility] | | | Cholesterol | | | [facility] | | | | | | MEDICAL | | | | | | CENTER - | | | | | | LABORATORY | | + +---------+ + + + | TSH | 2.49 | uIU/mL | [facility] | | | | | [...] + | [facility] | [address] | [place] | [phone] | | [facility] | | [address] | | | - LABORATORY | | | | + + + + + | [facility] | | | | | [facility] | | | | | - LABORATORY | | | | + + + + + Renal Function Panel (03/23/2010) + +---------+ + + + | Component | Value | Ref Range | Performed | Pathologist | | | | | At | Signature | + +---------+ + + + | Na | 138 | mmol/L | [facility] | | | | | | [facility] | | | | | | [facility] | | | | | | [facility]ENTER - | | | | | | LABORATORY | | + +---------+ + + + | K | 4.3 | mmol/L | [facility] | | | | | | [facility] | | | | | | [facility] | | | | | | CENTER - | | | | | | LABORATORY | | + +---------+ + + + | Cl | 110 | mmol/L | [facility] | | | | | | [facility] | | | | | | [facility] | | | | | | CENTER - | | | | | | LABORATORY | | + +---------+ + + + | CO2 | 21 | mmol/L | [facility] | | | | | | [facility] | | | | | | [facility]ICAL | | | | | | CENTER - | | | | | | LABORATORY | | + +---------+ + + + | Glucose | 173 | mg/dL | [facility] | | | | | | [facility] | | | | | | [facility]ICAL | | | | | | CENTER - | | | | | | LABORATORY | | + +---------+ + + + | BUN | 25 | mg/dL | [facility] | | | | | | [facility] | | | | | | [facility] | | | | | | CENTER - | | | | | | LABORATORY | | + +---------+ + + + | CREA | 2.0 | mg/dL | [facility] | | | | | | [facility] | | | | | | [facility] | | | | | | CENTER - | | | | | | LABORATORY | | + +---------+ + + + | Estimated | 36.0 | mL/min/1.73m2 | [facility] | | | GFR | | | [facility] | | | | | | [facility] | | | | | | CENTER - | | | | | | LABORATORY | | + +---------+ + + + | Albumin | 2.9 (A) | 3.5 - 5.0 g/dL | [facility] | | | | | | [facility] | | | | | | [facility] | | | | | | CENTER - | | | | | | LABORATORY | | + +---------+ + + + | Calcium | 8.6 | mg/dL | [facility] | | | | | | [facility] | | | | | | MEDICAL | | | | | | CENTER - | | | | | | LABORATORY | | + +---------+ + + + | Phosphorus | 3.6 | 2.5 - 4.8 mg/dL | [facility] | | | | [...] [address] | [place] | [phone] | | [facility] | | [address] | | | - LABORATORY | | | | + + + + + | [facility] | | | | | [facility] | | | | | - LABORATORY | | | | + + + + + Comprehensive Metabolic Panel (12/29/2009) + +---------+ + + + | Component | Value | Ref Range | Performed | Pathologist | | | | | At | Signature | + +---------+ + + + | Na | 139 | mmol/L | [facility] | | | | | | [facility] | | | | | | [facility]ICAL | | | | | | CENTER - | | | | | | LABORATORY | | + +---------+ + + + | K | 4.2 | mmol/L | [facility] | | | | | | [facility] | | | | | | MEDICAL | | | | | | CENTER - | | | | | | LABORATORY | | + +---------+ + + + | Cl | 108 | mmol/L | [facility] | | | | | | [facility] | | | | | | MEDICAL | | | | | | CENTER - | | | | | | LABORATORY | | + +---------+ + + + | CO2 | 25 | mmol/L | [facility] | | | | | | [facility] | | | | | | MEDICAL | | | | | | CENTER - | | | | | | LABORATORY | | + +---------+ + + + | Glucose | 96 | mg/dL | [facility] | | | | | | [facility] | | | | | | MEDICAL | | | | | | CENTER - | | | | | | LABORATORY | | + +---------+ + + + | BUN | 27 | mg/dL | [facility] | | | | | | [facility] | | | | | | [facility] | | | | | | CENTER - | | | | | | LABORATORY | | + +---------+ + + + | CREA | 1.9 | mg/dL | [facility] | | | | | | [facility] | | | | | | [facility] | | | | | | CENTER - | | | | | | LABORATORY | | + +---------+ + + + | Estimated | 39.0 | mL/min/1.73m2 | [facility] | | | GFR | | | [facility] | | | | | | MEDICAL | | | | | | CENTER - | | | | | | LABORATORY | | + +---------+ + + + | Calcium | 8.7 | mg/dL | [facility] | | | | | | [facility] | | | | | | MEDICAL | | | | | | CENTER - | | | | | | LABORATORY | | + +---------+ + + + | AST | 12 | 5 - 40 U/L | [facility] | | | | | | [facility] | | | | | | [facility]ICAL | | | | | | CENTER - | | | | | | LABORATORY | | + +---------+ + + + | ALT | 17 | U/L | [facility] | | | | | | [facility] | | | | | | [facility]ICAL | | | | | | CENTER - | | | | | | LABORATORY | | + +---------+ + + + | Alkaline | 90 | 38 - 110 U/L | [facility] | | | Phosphatase | | | [facility] | | | | | | MEDICAL | | | | | | CENTER - | | | | | | LABORATORY | | + +---------+ + + + | Bilirubin | 0.6 | 0.1 - 1.5 mg/dL | [facility] | | | Total | | | [facility] | | | | | | MEDICAL | | | | | | CENTER - | | | | | | LABORATORY | | + +---------+ + + + | Albumin | 2.7 (A) | 3.5 - 5.0 g/dL | [facility] | | | | | [...] | [address] | [place] | [phone] | | [facility] | | [address] | | | - LABORATORY | | | | + + + + + | [facility] | | | | | [facility] | | | | | - LABORATORY | | | | + + + + + Comprehensive Metabolic Panel (10/13/2009) + +---------+ + + + | Component | Value | Ref Range | Performed | Pathologist | | | | | At | Signature | + +---------+ + + + | Na | 139 | mmol/L | [facility] | | | | | | [facility] | | | | | | [facility] | | | | | | CENTER - | | | | | | LABORATORY | | + +---------+ + + + | K | 4.1 | mmol/L | [facility] | | | | | | [facility] | | | | | | MEDICAL | | | | | | CENTER - | | | | | | LABORATORY | | + +---------+ + + + | Cl | 107 | mmol/L | [facility] | | | | | | [facility] | | | | | | MED[facility] | | | | | | CENTER - | | | | | | LABORATORY | | + +---------+ + + + | CO2 | 26 | mmol/L | [facility] | | | | | | [facility] | | | | | | [facility] | | | | | | CENTER - | | | | | | LABORATORY | | + +---------+ + + + | Glucose | 332 | mg/dL | [facility] | | | | | [facility] | | | | | [facility] | | | | | | [facility] - | | | | | | LABORATORY | | + +---------+ + + + | BUN | 20 | mg/dL | [facility] | | | | | | [facility] | | | | | | MED[facility] | | | | | | CENTER - | | | | | | LABORATORY | | + +---------+ + + + | CREA | 1.6 | mg/dL | [facility] | | | | | | [facility] | | | | | | [facility]ICAL | | | | | | CENTER - | | | | | | LABORATORY | | + +---------+ + + + | Estimated | 45.0 | mL/min/1.73m2 | [facility] | | | GFR | | | [facility] | | | | | | MEDICAL | | | | | | CENTER - | | | | | | LABORATORY | | + +---------+ + + + | Calcium | 8.5 | mg/dL | [facility] | | | | | | [facility] | | | | | | [facility] | | | | | | CENTER - | | | | | | LABORATORY | | + +---------+ + + + | AST | 21 | 5 - 40 U/L | [facility] | | | | | | [facility] | | | | | | MED[facility] | | | | | | CENTER - | | | | | | LABORATORY | | + +---------+ + + + | ALT | 18 | U/L | [facility] | | | | | | [facility] | | | | | | [facility]ICAL | | | | | | CENTER - | | | | | | LABORATORY | | + +---------+ + + + | Alkaline | 78 | 38 - 110 U/L | [facility] | | | Phosphatase | | | [facility] | | | | | | MEDICAL | | | | | | CENTER - | | | | | | LABORATORY | | + +---------+ + + + | Bilirubin | 0.8 | 0.1 - 1.5 mg/dL | [facility] | | | Total | | | [facility] | | | | | | MEDICAL | | | | | | CENTER - | | | | | | LABORATORY | | + +---------+ + + + | Albumin | 2.7 (A) | 3.5 - 5.0 g/dL | [facility] | | [...] | [address] | [place] | [phone] | | [facility] | | [address] | | | - LABORATORY | | | | + + + + + | [facility] | | | | | [facility] | | | | | - LABORATORY | | | | + + + + + documented in this encounter Visit Diagnoses Not on filedocumented in this encounter"
--- OUTSIDE RECORDS SUMMARY | ~2020-03-04 | XMS | Encounter Summary ---
Demographics + + + | Address | [address] | | | [place] [address] | + + + | Home Phone | | + + + | Preferred Language | Unknown | + + + | Marital Status | | + + + | Mormonism Affiliation | 1041 | + + + | Race | Unknown | + + + | Ethnic Group | Unknown | + + + Author + + + | Author | [facility] | | | and [place] | + + + | Organization | [facility] | | | and [place] [...] Team Providers + +------+ + | Care Bridge Engineer Name | Role | Phone | + +------+ + PCP | Unavailable | + +------+ + Reason for Visit + + + | Reason | Comments | + + + | Appointment | instructions | + + + Encounter Details +--------+ + + + + | Date | Type | Department | Care Team | Description | +--------+ + + + + | 05/11/ | Telephone | [facility] | Uche Orozco | Appointment | | 2014 | | NEPHROLOGY [address] | M, DO [address] | (instructions) | | | | [address] | [place] | | | | | [place], [place] | [place], [place] | | | | | [address] | [address] | | | | | [phone] | | | +--------+ + + + [...]
--- OUTSIDE RECORDS SUMMARY | ~2020-03-04 | XMS | Encounter Summary ---
Demographics + + + | Address | [address] | | | [place] [address] | + + + | Home Phone | | + + + | Preferred Language | Unknown | + + + | Marital Status | | + + + | Shinto Affiliation | 1041 | + + + | Race | Unknown | + + + | Ethnic Group | Unknown | + + + Author + + + | Author | [facility] | | | and [place] | + + + | Organization | [facility] | | | and [...] Team Providers + +------+ + | Care Straight Slicing Machine Operator Name | Role | Phone | + +------+ + PCP | Unavailable | + +------+ + Reason for Referral Evaluate & Treat (Routine) +--------+ + + + + + | Status | Reason | Specialty | Diagnoses / | Referred By | Referred To | | | | | Procedures | Contact | Contact | +--------+ + + + + + | Closed | Specialty | Gastroenterol | Diagnoses | Kuo, | [facility] | | | Services | ogy | Other | Lexi Banks, | Gastroenterol | | | Required | | specified | MD [address] | ogy [address] | | | | | pre-operativ | [place] | [address] | | | | | e | [address] [place] | [address] [place] | | | | | examination | [place], [place] | [place], [place] | | | | | | [address] | [address] | | | | | Preventative | Phone: | Phone: | | | | | health care | [phone] | [phone] | | | | | Type II or | Fax: | Fax: | | | | | unspecified | [phone] | [phone] | | | | | type | | | | | | | diabetes | | | | | | | mellitus | | | | | | | with renal | | | | | | | manifestatio | | | | | | | ns, | | | | | | | uncontrolled | | | | | | | ([phone]) | | | | | | | (HCC) | | | | | | | Hepatitis C | | | | | | | Procedures | | | | | | | 12/29>PEND | | | | | | | YH 2NDRY. | | | | | | | 12/28, | | | | | | | 12/21> | | | | | | | 12/16> PEND | | | | | | | DOS TO | | | | | | | SUBMIT FOR | | | | | | | YH. | | | +--------+ + + + + + + + | Scheduling Instructions | + + | Needs colonoscopy for transplant work up | + + Encounter Details +--------+ + + + + | Date | Type | Department | Care Team | Description | +--------+ + + + + | 12/16/ | Orders Only | [facility] [place] | Lexi Kuo W, | Other specified | | 2014 | | NEPHROLOGY [address] | [address] | pre-operative | | | | [address] | [address] [place] | examination (Primary | | | | [place], [place] | [place] [address] | Dx); Preventative | | | | [id number] | [phone] | health care; Type II | | | | [phone] | | or unspecified type | | [...] + + +--------+ + + | * [facility] [place] | Outpatient | Routin | Other specified | Ordered: 12/16/2014 | | Gastroenterology - | Referral | e | pre-operative | | | AMB Referral | | | examination | | | | | | Preventative health | | | | | | care Type II or | | | | | | unspecified type | | | | | | diabetes mellitus | | | | | | with renal | | | | | | manifestations, | | | | | | uncontrolled | | + + +--------+ + + documented as of this encounter Visit Diagnoses + + | Diagnosis | + + | Other specified pre-operative examination - Primary | + + | Preventative health care Routine general medical examination at a [facility] | | facility | + + | Type II or unspecified type diabetes mellitus with renal manifestations, uncontrolled | + + documented in this encounter"
--- OUTSIDE RECORDS SUMMARY | ~2020-03-04 | XMS | Encounter Summary ---
Demographics + + + | Address | [address] | | | [place] [address] | + + + | Home Phone [...] Organization | [facility] | | | and [...] Team Providers + +------+ + | Care Sr. Media Manager Name | Role | Phone | + +------+ + PCP | Unavailable | + +------+ + Encounter Details +--------+ + + + + | Date | Type | Department | Care Team | Description | +--------+ + + + + | 06/26/ | Hospital | [facility] | [place], | | | 2012 | Encounter | [facility] | [address] | | | | | [address] | [facility] | | | | | [place] | [address] [place] | | | | | [address] | [address] | | | | | [phone] | | | +--------+ + + + [...] + + +---------+ + + | B Mwtypps-I-Drdzk | Take 1 mg by mouth | 30 each | 11 | 06/26/20 | | | Acid (OLEG-TEQUILA RX) | Daily. | | | 13 | | | 1 MG TABS | | | | | | + + + +---------+ + + | | Take 1 tablet by | 10 | 0 | 06/27/20 | | | amoxicillin-clavulan | mouth Daily for 10 | tablet | | 13 | 3 | | ate (AUGMENTIN) | days. | | | | | | 500-125 mg per | | | | | | | tablet [...] + + + +---------+ + + | ciprofloxacin | Take 1 tablet by | 10 | 0 | 06/27/20 | | | (CIPRO) 500 mg | mouth Daily for 10 | tablet | | 13 | 3 | | tablet | days. | | | | | + + + +---------+ + + | dicloxacillin | Take 1 capsule by | 40 | 0 | 06/26/20 | | | (DYNAPEN) 500 MG | mouth 4 times daily | capsule | | 13 | 3 | | capsule | for 10 days. | | | | | + + [...] + | CULTURE, WOUND, | Routin | 06/26/2013 | | Results for this | | SMEAR | e | 5:14 PM | | procedure are in the | | | | PDT | | results section. | + +--------+ + + + | CULTURE, WOUND, | Routin | 06/26/2013 | | Results for this | | SMEAR | e | 5:14 PM | | procedure are in the | | | | PDT | | results section. | + +--------+ + + + documented in this encounter Results Culture, Wound, Smear (06/26/2013 5:14 PM PDT) + + + + + + | Component | Value | Ref Range | Performed | Pathologist | | | | | At | Signature | + + + + + + | Culture | MANY WBC/HPF | | [facility] | | | Result | FEW EPITHELIAL CELLS/HPF | | [facility] | | | | FEW GRAM NEG BACILLI | | MEDICAL | | | | [...] + | [facility] | [address] | [place], [place] | [phone] | | [facility] | | [address] | | | - LABORATORY | | | | + + + + + | [facility] | [address] | [place], [place] | | | [facility] | | [address] [place] [address] | | | - LABORATORY | | | | + + + + + Culture, Wound, Smear (06/26/2013 5:14 PM PDT) + + + + + + | Component | Value | Ref Range | Performed | Pathologist | | | | | At | Signature | + + + + + + | Gram Stain | GRAM STAIN: | | [facility] | | | Result | MANY WBC/HPF | | [facility] | | | | FEW EPITHELIAL CELLS/HPF | | MEDICAL | | | | FEW GRAM NEG BACILLI | | CENTER - | | | | | | LABORATORY | | + + + + + + | Organism | PSEUDOMONAS AERUGINOSA | | [facility] | | | Type | | | [facility] | | | | | | MEDICAL | | | | | | CENTER - | | | | | | LABORATORY | | + + + + + + | CULTURE | Quantity (Reportable): | | [facility] | | | BACTERIA | MANY | | [facility] | | | WOUND | | | MEDICAL | | | | | | CENTER - | | | | | | LABORATORY | | + + + + + + | Organism | KLEBSIELLA OXYTOCA | | [facility] | | | Type | | | [facility] | | | | | | MEDICAL | | | | | | CENTER - | | | | | | LABORATORY | | + + + + + + | CULTURE | Quantity (Reportable): | | [facility] | | | BACTERIA | MODERATE | | [facility] | | | WOUND | | | MEDICAL | | | | | | CENTER - | | | | | | LABORATORY | | + + + + + + + + | Specimen | + + | Other - Wound | | (Other) | + + + + +--------+ + | Organism | Antibiotic | Method | Susceptibility | + + +--------+ + | Pseudomonas | Ampicillin | ESTEBAN | >=32: Resistant | | aeruginosa | | | | + + +--------+ + | Pseudomonas | Ampicillin + | ESTEBAN | >=32: Resistant | | aeruginosa | Sulbactam | | | + + +--------+ + | Pseudomonas | Cefazolin | ESTEBAN | >=64: Resistant | | aeruginosa | | | | + + +--------+ + | Pseudomonas | Ceftazidime | ESTEBAN | 4: Sensitive | | aeruginosa | | | | + + +--------+ + | Pseudomonas | Ceftriaxone | ESTEBAN | Resistant | | aeruginosa | | | | + + +--------+ + | Pseudomonas | Ciprofloxacin | ESTEBAN | <=0.25: Sensitive | | aeruginosa | | | | + + +--------+ + | Pseudomonas | Gentamicin | ESTEBAN | <=1: Sensitive | | aeruginosa | | | | + + +--------+ + | Pseudomonas | Meropenem | ESTEBAN | <=0.25: Sensitive | | aeruginosa | | | | + + +--------+ + | Pseudomonas | Tobramycin | ESTEBAN | <=1: Sensitive | | aeruginosa | | | | + + +--------+ + | Klebsiella oxytoca | Ampicillin | ESTEBAN | >=32: Resistant | + + +--------+ + | Klebsiella oxytoca | Ampicillin + | ESTEBAN | 8: Sensitive | | | Sulbactam | | | + + +--------+ + | Klebsiella oxytoca | Cefazolin | ESTEBAN | <=4: Sensitive | + + +--------+ + | Klebsiella oxytoca | Cefoxitin | ESTEBAN | <=4: Sensitive | + + +--------+ + | Klebsiella oxytoca | Ceftazidime | ESTEBAN | <=1: Sensitive | + + +--------+ + | Klebsiella oxytoca | Ceftriaxone | ESTEBAN | <=1: Sensitive | + + +--------+ + | Klebsiella oxytoca | Ciprofloxacin | ESTEBAN | <=0.25: Sensitive | + + +--------+ + | Klebsiella oxytoca | Ertapenem | ESTEBAN | <=0.5: Sensitive | + + +--------+ + | Klebsiella oxytoca | Extended Spectrum | ESTEBAN | NEG: Negative | | | Beta Lactamase | | | + + +--------+ + | Klebsiella oxytoca | Gentamicin | ESTEBAN | <=1: Sensitive | + + +--------+ + | Klebsiella oxytoca | Meropenem | ESTEBAN | <=0.25: Sensitive | + + +--------+ + | Klebsiella oxytoca | Tobramycin | ESTEBAN | <=1: Sensitive | + + +--------+ + | Klebsiella oxytoca | Trimethoprim + | ESTEBAN | <=20: Sensitive | | | Sulfamethoxazole | | | + + +--------+ + + + + + + | Performing | Address | City/State/Zipcode | Phone Number | | Organization | | | | + + + + + | [facility] | [address] | [place] | [phone] | | [facility] | | [address] | | | - LABORATORY | | | | + + + + + | [facility] | [address] | [place] | | | [facility] | | [address] | | | - LABORATORY | | | | + + + + + documented in this encounter Visit Diagnoses Not on filedocumented in this encounter"
--- OUTSIDE RECORDS SUMMARY | ~2020-03-04 | XMS | Encounter Summary ---
Demographics + + + | Address | [address] | | | [place] [address] | + + + | Home Phone | | + + + | Preferred Language | Unknown | + + + | Marital Status | | + + + | Latter-Day Affiliation | 1041 | + + + | Race | Unknown | + + + | Ethnic Group | Unknown | + + + Author + + + | Author | [facility] | | | and [place] | + + + | Organization | [facility] | | | and [place] [...] Team Providers + +------+ + | Care Teachers Aide Name | Role | Phone | + [...] + + + + | 06/26/ | Documentati | [facility] | Kuo, Lexi W, | Dialysis | | 2014 | on | NEPHROLOGY [address] | MD [address] | (Asymptomatic) | | | | [address] | [address] [place] | | | | | [place], [place] | [place] [address] | | | | | [address] | [phone] | | | | | [phone] | | | +--------+ + + + [...] this encounter Progress Notes Dedra Camara - 07/03/2014 3:07 PM PDTHemodialysis progress note e-faxed to Frances starks MD, [facility] on 07/03/14. Lexi Hollingsworth MD - 06/26/2014 1:55 PM PDTFormatting of beatrice s note might be different from the original. Comprehensive Dialysis Monthly Note Date of visit: 06/26/2014 Dialysis Clinic: [facility] Mode of dialysis: Hemodialysis Dialysis prescription: MWF, t=4.5 hrs, Na 138, K 2, BFR 475, EDW 121 kg HPI: CELSO CARO is a 54 y.o. male with ESRD on hemodialysis. Pt reports feeling well. Pt denies shortness of breath, chest pain, abdominal pain, edema. Pt reports non-compliance with phos-binder. PROBLEM LIST: Patient Active Problem List Diagnosis Date Noted End stage renal disease (HCC) 08/07/2013 Priority: High Note Last Updated: 03/02/2014 ESRD due to diabetic nephropathy. On hemodialysis. Access: Left brachial-cephalic AVF created on 07/28/13. Awaiting kidney transplant status 05/04/2014 Note Last Updated: 05/05/2014 Referred to [facility] on 05/04/14. Referral received. Awaiting benefits check. Anemia in ESRD (end-stage renal disease) ([facility]) 12/24/2013 Hypertension 09/22/2013 Preventative health care 06/25/2013 [...] Outpatient Prescriptions Marked as Taking for the 06/26/14 encounter (Documentation) with Chris Kuo MD Medication Sig Dispense Refill aspirin 81 mg EC tablet Take 81 mg by mouth Daily. atorvaSTATin (LIPITOR) 20 mg tablet Take 1 tablet by mouth Daily. 30 tablet 5 B Celfrmc-U-Flyon Acid (OLEG-TEQUILA RX) 1 MG TABS Take 1 mg by mouth Daily. 30 each 11 calcium acetate (PHOSLO) 667 mg capsule Take 2 capsules by mouth 3 times daily (with me als). 540 capsule 4 calcium carbonate (TUMS) 500 mg chewable tablet Take 2 tablets by mouth nightly. Cholecalciferol (VITAMIN D3) 5000 UNITS CAPS Take 5,000 Units by mouth Daily. cinacalcet (SENSIPAR) 30 mg tablet Take 1 tablet by mouth Daily. 90 tablet 4 diltiazem (DILACOR XR) 180 mg 24 hr capsule Take 180 mg by mouth Daily. doxercalciferol (HECTOROL) 4 MCG/2ML injection Inject 9 mcg into the vein Three times a week. epoetin padilla (EPOGEN, PROCRIT) 10,000 units/mL injection Inject 2,200 Units into the ve in Three times a week. furosemide (LASIX) 40 mg tablet Take 40 mg by mouth Daily. glimepiride (AMARYL) 1 mg tablet Take 1 tablet by mouth Daily. 60 tablet 6 insulin glargine (LANTUS) 100 units/mL injection Inject [...] 25 mg by mouth Daily. EXAM: T 97.8, HR 75, BP 139/74, weight 124.9 kg, gain 3.8 kg Constitutional: Appears well-developed and well-nourished. No distress. Cardiovascular: Normal rate, regular rhythm and normal heart sounds. No peripheral edema. Lungs: Respiratory effort normal and breath sounds normal. No crackles or wheezes. Abdominal: Soft. Bowel sounds are normal. Neurological: Alert. Dialysis Access: BFR 475 mL/min via LUE AVF. DIALYSIS LABS: Hb 10.4, WBC 10.4 Na 135, K 5.4, Cl 90, bicarb 26, albumin 4.0, Ca 8.5, phos 7.9 --> 8.6, PTH 480 EKt/V 1.44, URR 75% ASSESSMENT AND PLAN: 1. ESRD: Dialysis clearance is at goal. . 2. Access: LUE AVF functioning well. 3. HTN/volume: Clinic BP is stable. Reviewed post-weights; EDW appears appropriate. 4. Anemia due to ESRD: Hb at goal. On ESTIVEN. On maintenance Venofer. 5. Secondary hyperparathyroidism / mineral bone disease. Serum calcium level is at goal. H yperphosphatemia - pt is inconsistent with phos-binder; encouraged pt to increase compliance with calcium acetate; if serum phos improves, may be able to reduce dialysis time. PTH is improved. -on hectorol 9 mcg tiw -on sensipar 30 mg QDAY 6. Acid-base: Serum bicarb is acceptable. 7. Nutrition: On Liquacel supplementation. -serum albumin is at goal 8. Transplantation: Referral sent to [facility] for kidney transplantation. 9. DM type 2: On Januvia and Lantus. cc: Teo Obrien documented in this encounter Plan of [...]
--- OUTSIDE RECORDS SUMMARY | ~2020-03-04 | XMS | Encounter Summary ---
Demographics + + + | Address | [address] | | | [place] [address] | + + + | Home Phone [...] | Organization | [facility] [...] Team Providers + +------+ + | Care Convolute Tube Winder Name | Role | Phone | + [...] [address] | [address], [place] | | | | | [place], [place] | [address] [place], [place] | | | | | [address] | [address] | | | | | [phone] | | | +--------+ + + + [...]
--- OUTSIDE RECORDS SUMMARY | ~2020-03-04 | XMS | Encounter Summary ---
Demographics + + + | Address | [address] | | | [place] [address] | + + + | Home Phone | | + + + | Preferred Language | Unknown | + + + | Marital Status | | + + + | Taoism Affiliation | 1041 | + + + | Race | Unknown | + + + | Ethnic Group | Unknown | + + + Author + + + | Author | [facility] | | | and [place] | + + + | Organization | [facility] | | | and [...] Team Providers + +------+ + | Care Residential Sales Executive Name | Role | Phone | [...] Right renal | Lexi W, | [address] [place] | | | | | mass | MD [address] | [place], | | | | | Procedures | [place] [address] | [place] [address] | | | | | CT Abdomen | [address] [place] | Phone: | | | | | Pelvis w | [place], [place] | [phone] | | | | | Contrast | [address] | Fax: | | | | | 05/08>PEND | Phone: | [phone] | | | | | [place] | [phone] | | | | | | [address] | Fax: | | | | | | | [phone] | | +--------+--------+ + + + + Encounter Details +--------+ + + + + | Date | Type | Department | Care Team | Description | +--------+ + + + + | 05/08/ | Orders Only | [facility] [place] | Lexi Kuo W, | Right renal mass | | 2013 | | NEPHROLOGY [address] | MD [address] [place] | (Primary Dx) | | | | [address] | [address] [place] | | | | | [place] | [place] [address] | | | | | [address] | [phone] | | | | | [phone] | | | +--------+ + + + [...] + documented as of this encounter Progress Joana Turcios RN - 05/08/2014 11:44 AM PDTPatient was called with CT appt and time to a rrive to drink oral contrast. He verbally expressed a clear understanding. Electronically si gned by Joana Grijalva RN at 05/08/2014 11:45 AM PDTdocumented in this encounter Plan of Treatment Not on filedocumented as of this encounter Results CT Abdomen Pelvis w [...] + | MISCELLANEOUS LAB | | | [phone] | + +---------+ + + | MISCELANIOUS LAB | | | [phone] | + +---------+ + + documented in this encounter Visit Diagnoses + + | Diagnosis | + + | Right renal mass - Primary Unspecified disorder of kidney and ureter | + + documented in this encounter"
--- OUTSIDE RECORDS SUMMARY | ~2020-03-04 | XMS | Encounter Summary ---
Demographics + + + | Address | [address] | | | [place] [address] | + + + | Home Phone | | + + + | Preferred Language | Unknown | + + + | Marital Status | | + + + | Muslim Affiliation | 1041 | + + + | Race | Unknown | + + + | Ethnic Group | Unknown | + + + Author + + + | Author | [facility] | | | and [place] | + + + | Organization | [facility] [...] Team Providers + +------+ + | Care Machine Operator Assistant Name | Role | Phone | + +------+ + PCP | Unavailable | + +------+ + Encounter Details +--------+ + + + + | Date | Type | Department | Care Team | Description | +--------+ + + + + | 07/21/ | Off-Site | [facility] [place] | Uche Orozco | Secondary | | 2012 | Visit | NEPHROLOGY [address] | M, DO [address] | hyperparathyroidism | | | | [address] | [place], [address] | (of renal origin) | | | | [place] | [place] | ([facility]) (Primary Dx); | | | | [address] | [id number] | End stage renal | | | | [phone] | | disease (HCC); | | | | | | Hepatitis C | +--------+ + + + + Social [...] + + + | Blood Pressure | 157/79 | 07/21/2013 5:36 PM | | | | | PDT | | + + + + + | Pulse | - | - | | + + + + + | Temperature | 36.7 C (98.1 F) | 07/21/2013 5:36 PM | | | | | PDT [...] + + + + | Weight | 128.5 kg (283 lb 4.7 | 07/21/2013 5:36 PM | | | | oz) | PDT | | + + + + + | Height | - | - | | + + + + + | Body Mass Index | 37.38 | 06/26/2013 3:17 PM | | | | | PDT | | + + + + + documented in this encounter Progress Notes Uche Orozco DO - 08/07/2013 5:44 PM PDT Subjective: [facility] DIALYSIS NOTE Patient ID: CELSO CARO is a 53 y.o. male. HPI Comments: Monthly dialysis visit for this 53 YO male with ESRD secondar y to diabetic nephropathy, recently hospitalized for uremia, and an infected CAPD cath. He also has T2DM, requiring insulin, anemia secondary to CKD, hyperlipidemia, Hepatitis C, morb id obesity and a question of a right renal mass on prior US. He states that he is feeling b eleanor, and that his energy is improving. Outpatient Prescriptions Marked as Taking for the 07/21/13 encounter (Off-Site Visit) with Uche Orozco DO Medication Status Sig Dispense Refill aspirin 81 mg EC tablet Active Take 81 mg by mouth Daily. atorvaSTATin (LIPITOR) 20 mg tablet Active Take 1 tablet by mouth Daily. 30 tablet 5 B Cuqvlgb-E-Mdonz Acid (OLEG-TEQUILA RX) 1 MG TABS Active Take 1 mg by mouth Daily. 30 ea ch 11 cholecalciferol (VITAMIN D-3) 2000 UNITS TABS Active Take 1 tablet by mouth Daily. diltiazem (DILACOR XR) 180 mg 24 hr capsule Active Take 180 mg by mouth Daily. doxercalciferol (HECTOROL) 4 MCG/2ML injection Active Inject 4 mcg into the vein Three times a week. epoetin padilla (EPOGEN, PROCRIT) 10,000 units/mL injection Active Inject 2,200 Units unde r the skin Three times a week. furosemide (LASIX) 40 mg tablet Active Take 40 mg by mouth Daily. furosemide (LASIX) 80 mg tablet Discontinued Take 1 tablet by mouth Daily. 30 tablet 5 gentamicin 0.1% ointment Active Apply to peritoneal dialysis catheter exit site daily. 15 g 0 insulin glargine (LANTUS) 100 units/mL injection Active Inject 120 Units under the skin nightly. lisinopril (PRINIVIL,ZESTRIL) 40 MG tablet Active Take 40 mg by mouth Daily. metoprolol (TOPROL-XL) 100 MG 24 hr tablet Active Take 100 mg by mouth Daily. omeprazole (PRILOSEC) 20 mg capsule Active Take 20 mg by mouth every morning (before br eakfast). sevelamer carbonate (RENVELA) 800 mg tablet Active Take 1 tablet by mouth 3 times daily (with meals). 90 tablet 5 sitaGLIPtin (JANUVIA) 100 mg tablet Active Take 25 mg by mouth Daily. sodium bicarbonate 650 mg tablet Discontinued Take 2 tablets by mouth 2 times daily. 6 0 tablet 1 Allergies Allergen Reactions Amlodipine Besylate Unknown Metformin Diarrhea Review of Systems Objective: Blood pressure 157/79, temperature 36.7 C (98.1 F), weight 128.5 kg (283 lb 4.7 oz). Physical Exam Heart: Regular rate and rhythm with no S3, S4, murmur or rub. Lungs: CTA bilaterally. No rales or wheezes. Abdomen: Soft, flat, nontender, normoactive bowel sounds. Extremities: No clubbing, cyanosis, or edema. 1 dark, flat lesion on ventral surface of rig ht foot, resolving. LAB: BUN 36, Cr 5.80, K+ 3.8, HCO3 26, Ca++ 8.0, PO4 4.3, PTH 632, Alb 3.2, Hbaic *, Hb 10.9, TSat. = 30%, Ferr. 113, KT/V = 1.36. Assessment: 1. ESRD--he appears well dialyzed on 4 hours, [id number], 2K+, QB 400, QD 600. 2. Hypertension--stable on current regimen. 3. Anemia--appears to have some relative Fe deficiency. Therefore, will give him 100 mg, Venorfer, IV, q tx x 10 doses. 4. SHPTH--PO4 control is excellent. Will need to allow time for Hectorol to take effect. 5. Nutrition--Salb should return to time with Rx for the abd. Infection. 6. Exit site infection--to have a total of 14 days IV antibiotics, currently, Cefazidime a nd low dose Gent. 7. Type 2 DM--will track the Hbaic Q 3 months. 8. Hepatitis C--asymptomatic to date. 9. Hyperlipidemia--will recheck the lipid profile quarterly. 10. Transplantation--he has not thought a great deal about this, but he is interested in e xploring it further. 11. Righ renal mass, MRI, 10/2012--suspicious for complex, "proteinaceous cysts, " on MRI a t that time. Plan: 1. Currently, he is completing 2 g, IV Fortaz, + 80 mg, Gent. IV Q tx to complete a total of 14 days of Rx. 2. Will give him a course of IV Venofer to target the ferritin > 300. 3. He is to have a nenana AVF constructed with Dr. Artem Angelo in the next 2 weeks. 4. Will recheck his lipid profile, Hbaic quarterly here at the [facility]. CC: Artem Angelo MD [facility] documented in thi s encounter Plan of Treatment Not on filedocumented as of this encounter Visit Diagnoses + + | Diagnosis | + + | Secondary hyperparathyroidism (of renal origin) - Primary | + + | End stage renal disease (HCC) End stage renal disease | + + | Hepatitis C Unspecified viral hepatitis C without hepatic coma | + + documented in this encounter
--- OUTSIDE RECORDS SUMMARY | ~2020-03-04 | XMS | Encounter Summary ---
Demographics + + + | Address | [address] | | | [place] [address] | + + + | Home Phone | | + + + | Preferred Language | Unknown | + + + | Marital Status | | + + + | Islam Affiliation | 1041 | + + + | Race | Unknown | + + + | Ethnic Group | Unknown | + + + Author + + + | Author | [facility] | | | and [place] | + + + | Organization | [facility] | | | and [place] [...] Team Providers + +------+ + | Care Radiology Scheduler Name | Role | Phone | + +------+ + PCP | Unavailable | + +------+ + Encounter Details +--------+ + + + + | Date | Type | Department | Care Team | Description | +--------+ + + + + | 10/27/ | Documentati | [facility] [place] | Lexi Kuo W, | | | 2017 | on | NEPHROLOGY [address] | [address] [place] | | | | | [address] | [address] [place] | | | | | [place] | [place] [address] | | | | | [address] | [phone] | | | | | [phone] | | | +--------+ + + + [...]
--- OUTSIDE RECORDS SUMMARY | ~2020-03-04 | XMS | Encounter Summary ---
Demographics + + + | Address | [address] | | | [place] [address] | + + + | Home Phone | | + + + | Preferred Language | Unknown | + + + | Marital Status | | + + + | Taoist Affiliation | 1041 | + + + | Race | Unknown | + + + | Ethnic Group | Unknown | + + + Author + + + | Author | [facility] | | | and [place] | + + + | Organization | [facility] | | | and [...] Team Providers + +------+ + | Care Career Development Specialist Name | Role | Phone | [...] | NEPHROLOGY [address] | M, [address] | Management | | | | [address] | [place], [address] | | | | | [place], [place] | [place], [place] | | | | | [address] | [address] | | | | | [phone] | | | +--------+ + + + [...]
--- OUTSIDE RECORDS SUMMARY | ~2020-03-04 | XMS | Encounter Summary ---
Demographics + + + | Address | [address] | | | [place] [address] | + + + | Home Phone | | + + + | Preferred Language | Unknown | + + + | Marital Status | | + + + | Holiness Affiliation | 1041 | + + + | Race | Unknown | + + + | Ethnic Group | Unknown | + + + Author + + + | Author | [facility] | | | and [place] | + + + | Organization | [facility] | [...] Team Providers + +------+ + | Care Manager Of Compliance Name | Role | Phone | + [...] [address] | [address], [place] | | | | | [place] | [address] [place] | | | | | [address] | [address] | | | | | [phone] | | | +--------+ + + + [...]
--- OUTSIDE RECORDS SUMMARY | ~2020-03-04 | XMS | Encounter Summary ---
Demographics + + + | Address | [address] | | | [place] [address] | + + + | Home Phone | | + + + | Preferred Language | Unknown | + + + | Marital Status | Single | + + + | Mormon Affiliation | Unknown | + + + | Race | or | + + + | Ethnic Group | Not or | + + + Author + + + | Author | [facility] | + + + | Organization | [facility] | + + + | Address | [...] Providers + +------+ + | Care Manager Infusion Name | Role | Phone | + [...] 05/05/ | Telephone | Clinical | Colleen Amaro, | Pre Transplant | | 2013 | | Transplant Services | RN [address] | Workup (Intake) | | | | [address] | [place] | | | | | [place], | [place], [place] | | | | | [place] [address] | [address] | | | | | [phone] | | | +--------+ + + + [...]
--- OUTSIDE RECORDS SUMMARY | ~2020-03-04 | XMS | Encounter Summary ---
Demographics + + + | Address | [address] | | | [place] [address] | + + + | Home Phone | | + + + | Preferred Language | Unknown | + + + | Marital Status | | + + + | Congregation Affiliation | 1041 | + + + | Race | Unknown | + + + | Ethnic Group | Unknown | + + + Author + + + | Author | [facility] | | | and Scarana | + + + | Organization | [facility] | | [...] Team Providers + +------+ + | Care Surgery Manager Name | Role | Phone | + +------+ + PCP | Unavailable | + +------+ + Encounter Details +--------+ + + + + | Date | Type | Department | Care Team | Description | +--------+ + + + + | 05/07/ | Orders Only | [facility] [place] | Lexi Kuo W, | Right renal mass | | 2013 | | NEPHROLOGY [address] | [address] | (Primary Dx) | | | | [address] | [address] [place] | | | | | [place] | [place] [address] | | | | | [address] | [phone] | | | | | [phone] | | | +--------+ + + + [...] documented as of this encounter Progress Notes Lexi Kuo MD - 05/07/2014 2:[address] [facility] Transplant. Will schedule CT with contrast to evaluate right renal mass. Order placed. Please ask pt where he had his liver biopsy, in order for a report to be obtained. documented in this encounter Plan of Treatment Not on filedocumented as of this encounter Visit Diagnoses + + | Diagnosis | + + | Right renal mass - Primary Unspecified disorder of kidney and ureter | + + documented in this encounter"
--- OUTSIDE RECORDS SUMMARY | ~2020-03-04 | XMS | Encounter Summary ---
Demographics + + + | Address | [address] | | | [place] [address] | + + + | Home Phone [...] | Organization | [facility] | | | and [...] Team Providers + +------+ + | Care Clerical Office Name | Role | Phone | + [...] [place] | | | | | ([facility]) | [place] | [address] [place] | | | | | Anemia in | [address] | [place] | | | | | chronic | Phone: | [phone] Phone: | | | | | kidney | [phone] | [phone] | | | | | disease(285. | Fax: | Fax: | | | | | 21) | [phone] | [phone] | | | | | Procedures | | | | | | | [place] OFFICE | | | | | | | OUTPATIENT | | | | | | | VISIT 25 | | | | | | | MINUTES | | | +--------+--------+ + + + + Encounter Details +--------+ + + + + | Date | Type | Department | Care Team | Description | +--------+ + + + + | 08/03/ | Off-Site | [facility] [place] | Uche Orozco | End stage renal | | 2013 | Visit | NEPHROLOGY [address] | M, DO [address] | disease (HCC) | | | | [address] | [place] | (Primary Dx); Type | | | | [place], [place] | [place], [place] | II or unspecified | | | | [address] | [address] | type diabetes | | | | [phone] | | mellitus with renal | | | | | [...] + + + | Blood Pressure | 120/73 | 08/03/2014 4:06 PM | | | | | PDT | | + + + + + | Pulse | - | - | | + + + + + | Temperature | 36.6 C (97.8 F) | 08/03/2014 4:40 PM | | | | | PDT [...] encounter Progress Notes Uche Orozco DO - 08/03/2014 4:33 PM PDT [facility] Patient ID: CELSO CARO is a 54 y.o. male. HPI Comments: Monthly dialysis visit for this 54 YO male with ESRD secondar y to diabetic nephropathy, who is seen on outpatient HD at the [facility]. He also has T2DM, requiring insulin, anemia secondary to CKD, hyperlipidemia, Hepatitis C, m orbid obesity and a question of a right renal mass on prior US. He denies cramps, SOB, or anorexia. He has been struggling with glycemic control, but I am somewhat unsure if he checks glucoscans at home. Outpatient Prescriptions Marked as Taking for the 08/03/14 encounter (Off-Site Visit) with Uche Orozco DO Medication Sig Dispense Refill aspirin 81 mg EC tablet Take 81 mg by mouth Daily. atorvaSTATin (LIPITOR) 20 mg tablet Take 1 tablet by mouth Daily. 30 tablet 5 B Rnqxncm-F-Lgrsh Acid (OLEG-TEQUILA RX) 1 MG TABS Take 1 mg by mouth Daily. 30 each 11 Cholecalciferol (VITAMIN D3) 5000 UNITS CAPS Take 5,000 Units by mouth Daily. cinacalcet (SENSIPAR) 30 mg tablet Take 1 tablet by mouth Daily. 90 tablet 4 doxercalciferol (HECTOROL) 4 MCG/2ML injection Inject 9 [...] Besylate Unknown Metformin Diarrhea Objective: Blood pressure 120/73, temperature 36.6 C (97.8 F). EDW 121.5 kg Physical Exam Heart: Regular rate and rhythm with no S3, S4, murmur or rub. Lungs: CTA bilaterally. No rales or wheezes. Abdomen: Soft, flat, nontender, normoactive bowel sounds. Extremities: No clubbing, cyanosis, or edema. (+) well-developed AVF, left arm with QB = 4 00. (+) large, dry callous, ventral surface of right 2nd toe. Prior plantar wart?? LAB: BUN 56, Cr 12.5, K+ 4.3, HCO3 23, Ca++ 7.8, PO4 4.4, PTH 340, Alb 3.9, Hb 10.3, eKT/V = 1.38. Assessment: 1. ESRD--he appears well dialyzed by the most recent KT/V. 2. Hypertension--the BP appears well controlled at the current dry weight. 3. Anemia--His Hb appears stable on the current EPO anemia algorithm. Will recheck his iron stores next quarter. 4. SHPTH--his PTH appear to be improving form a peak of 515 to 340 pg/ml today. His phosp horus control appears stable on the current dose of Renvela. 5. Nutrition--his appetite is excellent on the current Rx. 6. Type 2 DM--suboptimal control. He states that he is taking the glimepiride, in additio n to Januvia. He is on a very high dose of insulin , at baseline. 7. Hepatitis C--stable. 8. Hyperlipidemia--Will recheck the lipid profile next quarter. 9. Transplantation--he has not thought a great deal about this, but he is interested in ex ploring it further. 10. Right renal mass, MRI, 10/2012--suspicious for complex, "proteinaceous cysts, " on MRI at that time. Plan: 1. I encouraged Celso to try to monitor his BG as close as possible. He will likely need a higher dose of glimepiride , over time. The higher dose of insulin, eg. Lantus, will angelo pedraza contribute further anabolic effects from here? 2. I did discuss that his PTH appears to be improving with time. 3. I told him that he needs to see a Cardiology Technologist, i.e. DPJean, soon to evaluate the large , noninfected callous on his right 2nd toe. 4. He will follow with Dr. Kuo in next 2 weeks. CC: [facility] documented in thi s encounter Plan [...]
--- OUTSIDE RECORDS SUMMARY | ~2020-03-04 | XMS | Encounter Summary ---
Demographics + + + | Address | [address] | | | [place] [address] | + + + | Home Phone | | + + + | Preferred Language | Unknown | + + + | Marital Status | | + + + | Jain Affiliation | [id number] | + + + | Race | Unknown | + + + | Ethnic Group | Unknown | + + + Author + + + | Author | [facility] | | | and [place] | + + + | Organization | [facility] | | | and [place] [...] Team Providers + +------+ + | Care Publicity Expert Name | Role | Phone | + +------+ + PCP | Unavailable | + +------+ + Reason for Referral Evaluate & Treat (Emergency) +--------+ + + + + + | Status | Reason | Specialty | Diagnoses / | Referred By | Referred To | | | | | Procedures | Contact | Contact | +--------+ + + + + + | Closed | Specialty | Home Health | Diagnoses | Stroemel, | | | | Services | Services | Diabetic | Uche Pena, | | | | Required | | ulcer of | DO [address] | | | | | | left midfoot | [place], [place] | | | | | | associated | [address] [place] | | | | | | with type 2 | [place] | | | | | | diabetes | [id number] | | | | | | mellitus, | Phone: | | | | | | limited to | [phone] | | | | | | breakdown of | Fax: | | | | | | skin ([facility]) | [phone] | | | | | | Gangrene of | | | | | | | left foot | | | | | | | ([facility]) | | | +--------+ + + + [...] | +--------+ + + + + | 09/05/ | Hospital | [facility] | Bryant Mares MD | Cellulitis, | | 2018 - | Encounter | [facility] | [address] | unspecified | | | | [address] [place] | [place] | cellulitis site | | 09/11/ | | [place] [address] | [phone] | (Primary Dx); Anemia | | 2018 | | [phone] | | in ESRD (end-stage | | | | | [place], | renal disease) | | | | | MD Nabeel [address] | ([facility]); Cellulitis of | | | | | [address] [place] | left lower | | | | | [place] [address] | extremity; End stage | | | | | [phone] | renal disease | | | | | | ([facility]); Type II or | | | | | Uche Sánchez M, | unspecified type | | | | | DO [address] | diabetes mellitus | | | | | [place], [place] [address] | with renal | | | | | [place] | manifestations, not | | | | | [address] | stated as | | | | | | uncontrolled(250.40) | | | | | | ([facility]); Diabetic | | | | | | ulcer of left | | | | | | midfoot associated | | | | | | with type 2 diabetes | | | | | | mellitus, limited | | | | | | to breakdown of skin | | | | | | ([facility]); Gangrene of | | | | | | left foot ([facility]); | | | | | | Diabetes mellitus, | | | | | | type II, insulin | | | | | | dependent ([facility]); | | | | | | Typical atrial | | | | | | flutter ([facility]); Heart | | | | | | murmur; | | | | | | Osteomyelitis of | | | | | | ankle or foot, | | | | | | acute, left ([facility]) | +--------+ + + + + Social [...] Uche Sánchez DO - 09/15/2018 11:22 AM [facility] [address] [place] [id number] DISCHARGE SUMMARY UCHE Pena ERNESTO MARTINEZ Patient: ISIDRA RINCON Admitting: NABEEL VIVAS MR #: [id number] LOC: PT TYPE: Adm Date: 09/05/2018 : 1960 DATE OF ADMISSION: 09/05/2018 DATE OF DISCHARGE: 09/11/2018 DISCHARGE DIAGNOSES: 1. Deep-seated soft tissue infection of left foot with acute osteomyelitis of left toes, m etatarsophalangeal joints secondary to MRSA on cultures. 2. Status post I&D of left foot with removal of second and third toes, metatarsal heads o f left foot, 09/07/2018, Dr. Arabella Schuster. 3. New onset A. flutter -- with controlled ventricular rate. 4. 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 5. Hypertension - good control. 6. [...] lower extremities, 09/10/2018. CONSULTATIONS: 1. Podiatry, Dr. Arabella Schuster. 2. Cardiology, Dr. Denise Comer. PROCEDURE: 1. I&D of left foot with removal of second and third toes, metatarsal heads of left foot, 09/07/2018, Dr. Arabella Schuster. 2. PICC line, right arm, 09/08/2018. [...] nown to the nephrology service from the [facility] in [place], [place]. He has been outpatient dialysis there for some time. Approximately 6 days prior to admissi on, he developed increasing tenderness, swelling and then this evolved into fever and chills to 102. He was given a trial of outpatient antibiotics at [facility] and on the da y of admission, [...] the foot and some extensive myositis. Dr. Arabella Schuster was consulted on 09/06/2018 and he [...] he has noticed on rounds to [facility] an irregular heartbeat. An EKG was obtained. [...] of IV antibiotics via his PICC line. [place] was consulted a s well as [facility] for him to get Vancomycin 1 gram [...] gram IV every Sunday and Sunday, via [facility], through 10/18/2018. 2. Ampicillin sulbactam 3 grams IV piggyback daily, through 10/18/2018 via [facility]. 3. Apixaban 2.5 mg b.i.d. 4. Nephro-Tressa [...] will have a followup appointment with Dr. Arabella Schuster at 0900, 09/16/2018. I will see him in followup at the [facility], [place], [place], in 1 week. [facility] [...] in that arm. I greatly Appreciate Dr. Arabella Schuster and Dr. Denise Comer's help with Mr. Rincon's medical p sadaf. I did discuss his case with his PCP, Dr. aNvjot Calloway for long-term followup as Herman obtain s majority of his primary care through the [facility]. UCHE SÁNCHEZ DO Dictated by UCHE SÁNCHEZ DO 09/15/2018 11:22:28 Transcribed on 09/15/2018 15:59:51 by in job# [id number] Confirmation #: [id number] cc: FRANCESCO CALLOWAY DO ARABELLA RAYOM NANCY COMER MD [facility] at [place], [place]. documented in thi s encounter Discharge Instructions Patient Instructions Elvira Coon RN - 09/08/2018 10:32 AM PSTRepetative movement [...] + + +---------+ + + | B Jdeyywu-J-Fxetf | Take 1 mg by mouth | [...] | | | g) 3 gIndications: | Leander. Indications: | | | | | | [...] original. PHARMACY SERVICES: ADMISSION MEDICATION REVIEW Isidra Herman Case is a 58 y.o. male admitted on 09/05/2018. Patient is somewhat a reliable historian. Location of Patient when reviewed: ED X Medical Floor Patient s prior to admit medication and over the counter (OTC) medications/herbal supplem ents list obtained from: X Verbal interview X Patient able to recall SOME Name, strength, and directions X Doctor's office: [facility] Dr. Ernesto Sherman X Pharmacy list names: [facility] [employer] insurance reported information X [...] Other: Insulin managed by SAMARA Donaldson at [facility] Patient recently had a Ceftriaxone 1 gm injection administered at [facility] on 09/03/18 Medication: Prior to Admission Sig: Patient taking differently LOSS PREVENTION LEAD as: Cinacalcet 60 mg tab 1 tab by mouth daily Not taking patient states this was discontinued. However, no records indicate this was discontinued Sucroferric oxhydroxide 500 mg chew tab 1 tab by mouth four times daily (before meals and n ightly) Patient not taking patient states this was discontinued. However, This is still an active order per [facility]. Furosemide 80 mg tab 1 tab by mouth daily 1 tab by mouth four times per week. Patient feels it is a waste to take on days he goes to dialysis. (Sunday, Sunday and ). Best possible LOSS PREVENTION LEAD medication list after pharmacy review: PT REPORTED TAKING NOT TAKING Medication Sig Last Dose Dispense Doc. Provider aspirin 81 mg EC tablet Take 81 mg by mouth Daily. Taking Historical ProviderMD ArianQdxvdjh-E-Ghvof Acid (OLEG-TRESSA RX) 1 MG TABS Take 1 mg by mouth Daily. Taking 30 each C TERRY Monk cephalexin (KEFLEX) 250 mg capsule Take 250 mg by mouth Daily. Until all taken. Take after dialysis on days you have dialysis Taking Francesco Quinones PA-C Cholecalciferol (VITAMIN D3) 5000 UNITS CAPS Take 5,000 Units by mouth Daily. Taking Hist orical Provider, cinacalcet (SENSIPAR) 60 MG tablet Take 1 tablet by mouth Daily. Patient not taking: Repo rted on 09/11/2018 Not Taking 30 tablet Uche Sánchez DO doxercalciferol (HECTOROL) 2 mcg/mL injection Inject 16 mcg into the vein Three times a we ek. at dialysis. Taking Historical Provider, epoetin padilla (EPOGEN,PROCRIT) 3,000 units/mL injection Inject 3,000 Units under the skin T hree times a week. At dialysis Taking Historical MD Bigg furosemide (LASIX) 80 mg tablet Take 80 mg by mouth Daily. Taking Differently Historical ProviderMD HYDROcodone-acetaminophen (NORCO) 5-325 mg per tablet Take 1 tablet by mouth 3 times daily as needed for Pain. Taking Francesco Quinones PA-C Hypromellose (ARTIFICIAL TEARS OP) Place 1 drop into both eyes Daily as needed (dry eyes). Taking Historical ProviderMD insulin glargine (LANTUS) 100 units/mL injection (vial) Inject 55 Units under the skin 2 t imes daily. Taking Differently Francesco Quinones PA-C lisinopril (PRINIVIL,ZESTRIL) 40 MG tablet Take 40 mg by mouth Daily. Taking Charan ivory MD metoprolol (TOPROL-XL) 100 MG 24 hr tablet Take 100 mg by mouth Daily. Taking Historical MD Bigg omeprazole (PRILOSEC) 20 mg capsule Take 20 mg by mouth Daily as needed (for stomach). Franci ing Differently Historical ProviderMD rosuvastatin (CRESTOR) 20 mg tablet Take 20 mg by mouth Daily. Taking Historical Provider MD sucroferric oxyhydroxide (VELPHORO) 500 mg chewable tablet Take 1 tablet by mouth 4 times daily (before meals and nightly). Patient not taking: Reported on 09/11/2018 Not Taking Mat otoniel Sánchez DO sulfamethoxazole-trimethoprim (BACTRIM DS) 800-160 mg per tablet Take 0.5 tablets by mouth Daily. Taking Francesco Quinones PA-C Medication review performed and electronically signed by Shannan Arguello, Patent Litigation Associate 2017 9:29 Patrick Jack PharmD, KEYSHA 09/11/2018 10:30Electronically signed by Patrick Jack PharmD at 1 11/12/2017 10:30 AM Uche Guallpa DO - 09/10/2018 9:53 PM PSTFormatting of this no te might be different from the original. [facility] [address] [place] [address] PROGRESS NOTE Pt. Name/Age/: Isidra Hernandez Case 58 y.o. 1960 Med. Record Number: [id number] Date of admission: 09/05/2018 NEPHROLOGY HPI - Pt seen at 0830. Bent[place] discussed with Dr Comer. Note LVEF = [...] cleared with HD and PTT rech ecked. [facility] izzy Magaña PharmD - 09/10/2018 1:21 PM PSTFormatting of this note might be different from the darrena l. VANCOMYCIN PER PHARMACY PROTOCOL: Subjective/Objective: Isidra Hernandez Case is a 58 y.o. male admitted on 09/05/18 for cellulitis of left foot. Patien t currently requires dialysis and is receiving vancomycin for DM foot and SSTI of left foot . Patient has a past medical history of Arthritis (09/15/2012); BPH with urinary obstruction; Diabetes mellitus, type 2 (HCC) (1999); Diabetic foot ulcer (HCC) (01/01/12); ESRD (end stag e renal disease) on dialysis (HCC) (1999); Heart murmur; Hepatitis C (2006); Hyperlipidemia; [...] 96.9 97.2 97.2 97.7 Resp 18 18 Weight - - - - [...] Value Units Date/Time Culture, Wound, Smear, w/Anaerobe [[id number]] Collected: 09/07/181123 Order Status: Sent Lab Status: In process Updated: 09/09/18 1052 Specimen: Tissue from Toe, Second, Left Narrative: The following orders were created for panel order Culture, Wound, Smear, w/Anaerobe. Procedure Abnormality Status --------- ------ Culture, Wound, Smear[[id number]] Final result Culture, Anaerobic[[id number]] Normal Preliminary result Please view results for these tests on the individual orders. Culture, Wound, Smear [[id number]] (Susceptibility) Collected: 09/07/181123 Order Status: Completed Lab Status: Final result Updated: 09/09/18 1052 Specimen: Tissue from Toe, Second, Left Culture [...] be used alone for chemotherapy. Culture, Anaerobic [[id number]] (Normal) Collected: 09/07/181123 Order Status: Completed Lab Status: Preliminary result Updated: 09/10/18 1321 Specimen: Tissue from Toe, Second, Left Culture No anaerobes isolated to date. Culture, Wound, Smear, w/Anaerobe [[id number]] Collected: 09/07/18 0920 Order Status: Sent Lab Status: In process Updated: 09/09/18 1050 Specimen: Tissue from Foot, Plantar, Left Narrative: The following orders were created for panel order Culture, Wound, Smear, w/Anaerobe. Procedure Abnormality Status --------- ------ Culture, Wound, Smear[[id number]] Final result Culture, Anaerobic[[id number]] In process Please view results for these tests on the individual orders. Culture, Wound, Smear [[id number]] (Susceptibility) Collected: 09/07/18919 Order Status: Completed Lab Status: Final result Updated: 09/09/18 1050 Specimen: Tissue from Foot, Plantar, Left Culture [...] be used alone for chemotherapy. Culture, Anaerobic [[id number]] Collected: 09/07/18919 Order Status: Resulted Lab Status: In process Updated: 09/07/18 09 Specimen: Tissue from Foot, Plantar, Left Culture, Blood [[id number]] (Normal) Collected: 09/07/18518 Order Status: Completed Lab Status: Preliminary result Updated: 09/10/18 05 Specimen: Blood from Peripheral Blood Culture No growth: Monitored continually by instrument for 5 days Culture, Blood [[id number]] (Normal) Collected: 09/07/1815 Order Status: Completed Lab Status: Preliminary result Updated: 09/10/18 05 Specimen: Blood from Peripheral Blood Culture No growth: Monitored continually by instrument for 5 days Culture, Blood [[id number]] (Normal) Collected: 09/05/18 1806 Order Status: Completed Lab Status: Preliminary result Updated: 09/08/181810 Specimen: Blood from Peripheral Blood Culture No growth: Monitored continually by instrument for 5 days Culture, Blood [[id number]] (Abnormal) (Susceptibility) Collected: 09/05/18 1725 Order Status: [...] chemotherapy. Blood Culture GP Pathogen Panel, PCR [[id number]] (Abnormal) Collected: 09/05/18 0726 Order Status: Completed Lab Status: Final result Updated: 09/08/18 7335 Specimen: Blood from Peripheral Blood Staphylococcus species, [...] no Vancomycin level N/A - 08.11 - 1999 - Vancomycin Dose 1500 mg - 500 [...] Protocol Electronically signed by: Lizzy Magaña PharmD 09/10/2018 13:21 Vancomycin dosing protocol Jennifer Guallpa DO - 09/09/2018 9:19 PM PSTNEPHROLOGY Pt seen earlier on NxStage. In A.flutter at 80-90. BP Stable. Will plan CTA of lower ext to evaluate art. flow. Will plan on same AB's for now. PE is unchanged. Appreciate Dr. Comer's input on his Cookie Bowerstter management. [facility] Bel Ramirez, PharmD - 09/09/2018 9:26 AM PSTFormatting of this note might be different from the origi nal. ADDENDUM: Vancomycin level post-HD: 9.1 Vancomycin 1G x 1 tonight Re-order Vancomycin level ~5-6 hours after next HD Recent Labs 09/09/18200609/09/18 0431 09/09/18 0430 09/08/18 1112 09/08/18 0450 09/07/18 0515 09/07/18 0016 WBC -- 6.8 -- 7.6 7.2 6.9 -- CREA -- -- 9.51* -- 7.56* 5.89* -- VANCORANDOM 9.1 -- -- -- -- -- 11.4 Bel [place] PharmD 09/09/2018 21:41 VANCOMYCIN PER PHARMACY PROTOCOL: Subjective/Objective: Isidra Rincon is a 58 y.o. male admitted on 09/05/18 for cellulitis of left foot. Patien t currently requires dialysis and is receiving vancomycin for DM foot and SSTI of left foot . Patient has a past medical history of Arthritis (09/15/2012); BPH with urinary obstruction; Diabetes mellitus, type 2 ([facility]) (1999); Diabetic foot ulcer ([facility]) (01/01/12); ESRD (end stag e renal disease) on dialysis ([facility]) (1999); Heart murmur; Hepatitis C (2006); Hyperlipidemia; [...] Temp 97.5 97.5 96.8 97.3 Resp 20 20 18 Weight - - - - [...] Value Units Date/Time Culture, Wound, Smear, w/Anaerobe [[id number]] Collected: 09/07/18 112 Order Status: Sent Lab Status: In process Updated: 09/07/181124 Specimen: Tissue from Toe, Second, Left Narrative: The following orders were created for panel order Culture, Wound, Smear, w/Anaerobe. Procedure Abnormality Status --------- ------ Culture, Wound, Smear[[id number]] Preliminary result Culture, Anaerobic[[id number]] In process Please view results for these tests on the individual orders. Culture, Wound, Smear [[id number]] (Susceptibility) Collected: 09/07/181123 Order Status: Completed Lab Status: Preliminary result Updated: 09/09/18 06 Specimen: Tissue from Toe, Second, Left Culture [...] be used alone for chemotherapy. Culture, Anaerobic [[id number]] Collected: 09/07/181123 Order Status: Resulted Lab Status: In process Updated: 09/07/181124 Specimen: Tissue from Toe, Second, Left Culture, Wound, Smear, w/Anaerobe [[id number]] Collected: 09/07/18919 Order Status: Sent Lab Status: In process Updated: 09/07/18 09 Specimen: Tissue from Foot, Plantar, Left Narrative: The following orders were created for panel order Culture, Wound, Smear, w/Anaerobe. Procedure Abnormality Status --------- ------ Culture, Wound, Smear[[id number]] Preliminary result Culture, Anaerobic[[id number]] In process Please view results for these tests on the individual orders. Culture, Wound, Smear [[id number]] (Susceptibility) Collected: 09/07/18919 Order Status: Completed Lab Status: Preliminary result Updated: 09/09/18701 Specimen: Tissue from Foot, Plantar, Left Culture [...] be used alone for chemotherapy. Culture, Anaerobic [[id number]] Collected: 09/07/18919 Order Status: Resulted Lab Status: In process Updated: 09/07/18933 Specimen: Tissue from Foot, Plantar, Left Culture, Blood [[id number]] (Normal) Collected: 09/07/18518 Order Status: Completed Lab Status: Preliminary result Updated: 09/07/181740 Specimen: Blood from Peripheral Blood Culture No growth: Monitored continually by instrument for 5 days Culture, Blood [[id number]] (Normal) Collected: 09/07/18 0515 Order Status: Completed Lab Status: Preliminary result Updated: 09/07/181740 Specimen: Blood from Peripheral Blood Culture No growth: Monitored continually by instrument for 5 days Culture, Blood [[id number]] (Normal) Collected: 09/05/18 180 Order Status: Completed Lab Status: Preliminary result Updated: 09/08/181810 Specimen: Blood from Peripheral Blood Culture No growth: Monitored continually by instrument for 5 days Culture, Blood [[id number]] (Abnormal) (Susceptibility) Collected: 09/05/18 1725 Order Status: [...] chemotherapy. Blood Culture GP Pathogen Panel, PCR [[id number]] (Abnormal) Collected: 09/05/18 9743 Order Status: Completed Lab Status: Final result Updated: 09/08/18 7443 Specimen: Blood from Peripheral Blood Staphylococcus species, [...] no no yes Vancomycin level N/A - 11.4 - 2000 Vancomycin Dose 1500 mg - 500 mg [...] might be different from the origi nal. [facility] [address] [place] [address] PROGRESS NOTE Pt. Name/Age/: Isidra Rincon 58 y.o. 1960 Med. Record Number: [id number] Date of admission: 09/05/2018 NEPHROLOGY HPI - [...] in this interval not displayed. Recent Labs 09/08/ 1112 09/08/18 0450 WBC 7.6 7.2 HGB [...] ESRD 2 to T2DM-- on HD , M-W-. Next tx is on 09/09. 4. Anemia [...] minimal heparin. 4. Pt placed on tele. [facility] rabella Schuster D PM - 09/08/2018 9:23 AM PST Foot & Ankle Surgery Progress Note Arabella Schuster DPM Isidra Hernandez Case Age/Gender 58 y.o[address] male Location [facility] Attending No att. providers found Hosp Day # 3 PCP Farncesco Quinones PA-C Date of Surgery: 09/07/18 Post [...] Value Units Date/Time Culture, Wound, Smear, w/Anaerobe [[id number]] Collected: 09/07/181123 Order Status: Sent Lab Status: In process Updated: 09/07/181124 Specimen: Tissue from Toe, Second, Left Narrative: The following orders were created for panel order Culture, Wound, Smear, w/Anaerobe. Procedure Abnormality Status --------- ------ Culture, Wound, Smear[[id number]] Preliminary result Culture, Anaerobic[[id number]] In process Please view results for these tests on the individual orders. Culture, Wound, Smear [[id number]] Collected: 09/07/181123 Order Status: Completed Lab Status: Preliminary result Updated: 09/08/18 0825 Specimen: Tissue from Toe, Second, Left Culture 3+ Staphylococcus aureus Comment: Presumptive identification Identification and susceptibility to follow. Gram Stain Result 1+ White Blood Cells No organisms seen Culture, Anaerobic [[id number]] Collected: 09/07/181123 Order Status: Resulted Lab Status: In process Updated: 09/07/181124 Specimen: Tissue from Toe, Second, Left Assessment: [...] Dispo: Home with IV antibiotics or SNF Arabella Schuster DPM 9:23; 09/08/2018 Patrick Gonzalez, PharmD - 09/08/2018 8:28 AM PST VANCOMYCIN PER PHARMACY PROTOCOL: Subjective/Objective: Isidra Rincon is a 58 y.o. male admitted on 09/05/18 for cellulitis of left foot. Patien eleno currently requires dialysis and is receiving vancomycin for DM foot and SSTI of left foot . Patient has a past medical history of Arthritis (09/15/2012); BPH with urinary obstruction; Diabetes mellitus, type 2 ([facility]) (1999); Diabetic foot ulcer ([facility]) (01/01/12); ESRD (end stag e renal disease) on dialysis ([facility]) (1999); Heart murmur; Hepatitis C (2006); Hyperlipidemia; [...] Value Units Date/Time Culture, Wound, Smear, w/Anaerobe [[id number]] Collected: 09/07/181123 Order Status: Sent Lab Status: In process Updated: 09/07/181124 Specimen: Tissue from Toe, Second, Left Narrative: The following orders were created for panel order Culture, Wound, Smear, w/Anaerobe. Procedure Abnormality Status --------- ------ Culture, Wound, Smear[[id number]] Preliminary result Culture, Anaerobic[[id number]] In process Please view results for these tests on the individual orders. Culture, Wound, Smear [[id number]] Collected: 09/07/181123 Order Status: Completed Lab Status: Preliminary result Updated: 09/08/18824 Specimen: Tissue from Toe, Second, Left Culture 3+ Staphylococcus aureus Comment: Presumptive identification Identification and susceptibility to follow. Gram Stain Result 1+ White Blood Cells No organisms seen Culture, Anaerobic [[id number]] Collected: 09/07/181123 Order Status: Resulted Lab Status: In process Updated: 09/07/181124 Specimen: Tissue from Toe, Second, Left Culture, Wound, Smear, w/Anaerobe [[id number]] Collected: 09/07/18 09 Order Status: Sent Lab Status: In process Updated: 09/07/18 09 Specimen: Tissue from Foot, Plantar, Left Narrative: The following orders were created for panel order Culture, Wound, Smear, w/Anaerobe. Procedure Abnormality Status --------- ------ Culture, Wound, Smear[[id number]] Preliminary result Culture, Anaerobic[[id number]] In process Please view results for these tests on the individual orders. Culture, Wound, Smear [[id number]] Collected: 09/07/18 0920 Order Status: Completed Lab Status: Preliminary result Updated: 09/07/18 144 Specimen: Tissue from Foot, Plantar, Left Gram Stain Result 3+ White Blood Cells No organisms seen Culture, Anaerobic [[id number]] Collected: 09/07/18 0920 Order Status: Resulted Lab Status: In process Updated: 09/07/18 0934 Specimen: Tissue from Foot, Plantar, Left Culture, Blood [[id number]] (Normal) Collected: 09/07/18 0519 Order Status: Completed Lab Status: Preliminary result Updated: 09/07/18 174 Specimen: Blood from Peripheral Blood Culture No growth: Monitored continually by instrument for 5 days Culture, Blood [[id number]] (Normal) Collected: 09/07/18 0515 Order Status: Completed Lab Status: Preliminary result Updated: 09/07/181740 Specimen: Blood from Peripheral Blood Culture No growth: Monitored continually by instrument for 5 days Culture, Blood [[id number]] (Normal) Collected: 09/05/18 180 Order Status: Completed Lab Status: Preliminary result Updated: 09/06/18 06 Specimen: Blood from Peripheral Blood Culture No growth: Monitored continually by instrument for 5 days Culture, Blood [[id number]] (Abnormal) Collected: 09/05/181724 Order Status: Completed Lab Status: Preliminary result Updated: 09/07/1858 Specimen: Blood from Peripheral Blood Culture Positive [...] report. Blood Culture GP Pathogen Panel, PCR [[id number]] (Abnormal) Collected: 09/05/181724 Order Status: Completed Lab [...] Dosing and Monitoring Protocol Electronically signed by: Partick Jack PharmD 09/08/2018 8:28 Vancomycin dosing protocol Uche Guallpa DO - 09/07/2018 10:22 AM PST [facility] [address] [place] [id number] PROGRESS NOTE Pt. Name/Age/: Isidra Rincon 58 y.o. 1960 [facility]. Record Number: [id number] Date of admission: 09/05/2018 NEPHROLOGY HPI - [...] medically, however, with his good performance st atus, and relatively young age, it is absolutely the better choice. Would redose Vanc. IV , today? 2. ESRD 2 to T2DM-- on HD , M-W-. Next tx is on 09/09. 3. Anemia 2 to CKD-- would favor increasing his EPO to 8000, TIW to target Hb 10-11 g/d l to promote wound healing. Will recheck his Fe levels, while Inpt. ( These are followed monthly at [facility], in a [facility].) 4. HTN--stable. 5. Type 2 DM, requiring [...] to optimize Hb and anemia, as above. [facility] Patrick Gonzalez, Ph armD - 09/07/2018 7:21 AM PST VANCOMYCIN PER PHARMACY PROTOCOL: Subjective/Objective: Isidra Hernandez Case is a 58 y.o. male admitted on 09/05/18 for cellulitis of left foot. Patien t currently requires dialysis and is receiving vancomycin for DM foot and SSTI of left foot . Patient has a past medical history of Arthritis (09/15/2012); BPH with urinary obstruction; Diabetes mellitus, type 2 ([facility]) (1999); Diabetic foot ulcer ([facility]) (01/01/12); ESRD (end stag e renal disease) on dialysis ([facility]) (1999); Heart murmur; Hepatitis C (2006); Hyperlipidemia; [...] Procedure Component Value Units Date/Time Culture, Blood [[id number]] Collected: 09/07/18518 Order Status: Sent Lab Status: In process Updated: 09/07/18537 Specimen: Blood from Peripheral Blood Culture, Blood [[id number]] Collected: 09/07/18 0515 Order Status: Sent Lab Status: In process Updated: 09/07/18 0539 Specimen: Blood from Peripheral Blood Culture, Blood [[id number]] (Normal) Collected: 09/05/18 1806 Order Status: Completed Lab Status: Preliminary result Updated: 09/06/18 0611 Specimen: Blood from Peripheral Blood Culture No growth: Monitored continually by instrument for 5 days Culture, Blood [[id number]] (Abnormal) Collected: 09/05/18 1725 Order Status: Completed [...] Cool MD - 09/06/2018 7:29 PM PST [facility] Hospitalist Progress Note Isidra Hernandez Case is a 58 y.o. male ASSESSMENT and [...] Continue vancomycin/Zosyn - Discussed with Dr. Cervantes field ironworker for orthopedics, recommended discussing with Dr. Schuster [...] ination the patient's care as outlined above. Kkie Kuo 09/06/2018 19:29 [facility] Bel Ramirez PharmD - 09/06/2018 8:02 AM PSTFormatting of this note might be different from the origina l. ADDENDUM: Vancomycin Level post-HD - 11.4 [...] with urinary obstruction; Diabetes mellitus, type 2 ([facility]) (1999); Diabetic foot ulcer ([facility]) (01/01/12); ESRD (end stag e renal disease) on dialysis ([facility]) (1999); Heart murmur; Hepatitis C (2006); Hyperlipidemia; [...] Procedure Component Value Units Date/Time Culture, Blood [[id number]] (Normal) Collected: 09/05/18 180 Order Status: Completed Lab Status: Preliminary result Updated: 09/06/18 0611 Specimen: Blood from Peripheral Blood Culture No growth: Monitored continually by instrument for 5 days Culture, Blood [[id number]] (Normal) Collected: 09/05/18 1725 Order Status: Completed [...] type 2 ([facility]) (1999); Diabetic foot ulcer ([facility]) (01/01/12); ESRD (end stag e renal disease) on dialysis ([facility]) (1999); Heart murmur; Hepatitis C (2006); Hyperlipidemia; [...] - - - - Recent Labs Lab 09/05/181724 CREA 6.72* WBC 10.8 LACTATE 1.3 Other antibiotics: none at this time (patient was started on what he thinks was cephalexin on 09/04) Micro/Cultures/Diagnostics: Microbiology Results (Last 14 Days by Collected Date with Culture/Sensitivity) Procedure Component Value Units Date/Time Culture, Blood [[id number]] Collected: 09/05/181724 Order Status: Sent Lab Status: In process Updated: 09/05/181731 Specimen: Blood from Peripheral Blood Culture, Blood [[id number]] Order Status: Sent Lab Status: No result [...] + + +--------+ + + | * [facility] | Outpatient | STAT | Diabetic [...] skin | | | | | | ([facility]) Gangrene of | | | | | | left foot ([facility]) | | + + +--------+ + + [...] St | [place] | [phone] | | [facility] | | [address] | | | - LABORATORY | | [...] mL/min/1.73m2 | [facility] | | | [facility] | | | MEDICAL | | | [...] St | [place] | [phone] | | [facility] | | [address] | | | - LABORATORY | | [...] | | | | | g/dL | [facility] | | | | [...] | | Lymphocytes | | K/uL | [facility] | [...] + | [facility] | [address] | [place] | [phone] | | [facility] | | [address] | | | - LABORATORY | | | | + + + + + PTT (09/11/2018 5:26 AM PST) + +-------+ + + + | Component | Value | Ref Range | Performed | Pathologist | | | | | At | Signature | + +-------+ + + + | aPTT | 32 | 22 - 36 seconds | [facility] | | | | | [...] St | [place] | [phone] | | [facility] | | [address] | | | - LABORATORY | | [...] | | Time | | seconds | [facility] | | | | | [...] + | [facility] | [address] | [place], [place] | [phone] | | [facility] | | [address] | | | - LABORATORY | | [...] ST. | [address] | [place], [place] | [phone] | | [facility] | | [address] | | | - LABORATORY | | [...] St | [place] | [phone] | | [facility] | | [address] | | | - LABORATORY | | [...] | + + + + + | [facility] | 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 [employer] Procedure Type of Study TTE procedure: | [...] Diastolic: | | | 1.28 cm EF Mobtpwonb94% EF Calculated: 45% Miscellaneous Aorta | | [...] Diastolic: 1.28 cm | | | EF Hpjrnevvr19% | | | EF Calculated: 45% | | | | | | Miscellaneous | | | | | | Aorta | | | | | | Aortic Root: 3.73 cm | | | Ascending Aorta: 3.48 cm | | | | | + + -+ + + | Procedure Note | + + | Kana, Rad Results In - 09/10/2018 3:04 PM [facility] Transthoracic Echocardiography Report | | (TTE) Demographics Patient Name SERGEY HERNANDEZ Room Number 436 Patient | | Number [id number] Date of Study 09/10/2018 Visit Number [id number] | | Referring Physician ERNESTO Pena Number Date | | of 1960 [employer] WALKER Age 58 | | year(s) Interpreting DENISE COMER MD | | Application Technical Designer ERNESTO Pena Gender Male 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 | | | [facility] | | | MEDICAL | | | [...] St | [place] | [phone] | | [facility] | | [address] | | | - LABORATORY | | [...] Granulocyte | Preliminary studIes have | | [facility] | | | s | indicated [...] | | Monocytes | | K/uL | [facility] | | | | [...] St | [place] | [phone] | | [facility] | | [address] | | | - LABORATORY | | [...] [address] | [place] | [phone] | | [facility] | | [address] | | | - LABORATORY | | [...] [address] | [place] | [phone] | | [facility] | | [address] | | | - LABORATORY | | [...] St | [place] | [phone] | | [facility] | | [address] | | | - LABORATORY | | [...] St | [place] | [phone] | | [facility] | | [address] | | | - LABORATORY | | | | + + + + + POC Glucose (09/09/2018 6:42 AM PST) + +-------+ + + + | Component | Value | Ref Range | Performed | Pathologist | | | | | At | Signature | + +-------+ + + + | Glucose, | 105 | 70 - 109 mg/dL | [facility] | | | POC | | | [facility] | | | | | [...] + | [facility] | [address] | [place] | [phone] | | [facility] | | [address] | | | - LABORATORY | | [...] | | nRBC | | K/uL | [facility] | | | | | | MEDICAL | | | | | | CENTER - | | | | | | LABORATORY | | + + + + + + + + | Specimen | + + | Blood | + + + + + + + | Performing | Address | City/State/[facility] | Phone Number | | Organization | | | | + + + + + | [facility] | [address] | [place] | [phone] | | [facility] | | [address] | | | - LABORATORY | | [...] + + + | Creatinine | 9.51 (HH)Comment: | 0.60 - 1.30 | [facility] [...] mL/min/1.73m2 | [facility] | | | [facility] | | | MEDICAL | | | [...] St | [place] | [phone] | | [facility] | | [address] | | | - LABORATORY | | [...] St | [place] | [phone] | | [facility] | | [address] | | | - LABORATORY | | [...] ST. | [address] | [place], [place] | [phone] | | [facility] | | [address] | | | - LABORATORY | | [...] | | | | ELEANOR JEONG MD ([id number]) | | | | | | on [...] + | [facility] | [address] | [place] | [phone] | | [facility] | | [address] | | | - LABORATORY | | [...] | third generation TSH | uIU/mL | [facility] | | | | test. | | [...] + | [facility] | [address] | [place] | [phone] | | [facility] | | [address] | | | - LABORATORY | | [...] + | [facility] | [address] | [place] | [phone] | | [facility] | | [address] | | | - LABORATORY | | | | + + + + + CBC no Differential (09/08/2018 11:12 AM PST) + + + + + + | Component | Value | Ref Range | Performed | Pathologist | | | | | At | Signature | + + + + + + | WBC | 7.6 | 4.0 - 11.0 K/uL | [facility] | | | | | [...] | | | | | | [facility] | | | | | | MEDICAL [...] | | | | WBC's | [facility] | | | | [...] St | [place] | [phone] | | [facility] | | [address] | | | - LABORATORY | | [...] | | | Screen | | | . [facility] | | | | [...] ST. | [address] | [place], [place] | | | [facility] | | [address] | | | - BLOOD BANK | [...] [address] | [place] | [phone] | | [facility] | | [address] | | | - LABORATORY | | [...] mL/min/1.73m2 | [facility] | | | [facility] | | | MEDICAL | | | [...] St | [place] | [phone] | | [facility] | | [address] | | | - LABORATORY | | | | + + + + + CBC with Differential (09/08/2018 4:50 AM PST) + + + + + + | Component | Value | Ref Range | Performed | Pathologist | | | | | At | Signature | + + + + + + | WBC | 7.2 | 4.0 - 11.0 K/uL | [facility] | | | | | [...] | | | | | g/dL | [facility] | | | | [...] | | | Eosinophils | | | [facility] | | [...] | Preliminary studIes have | | [facility] | | | s | indicated the [...] | Neutrophils | | K/uL | [facility] | [...] + + | Performing | Address | City/State/[facility] | Phone Number | | Organization | | | | + + + + + | [facility] | [address] | [place] | [phone] | | [facility] | | [address] | | | - LABORATORY | | [...] | | | POC | | | [facility] | | | [...] + | [facility] | [address] | [place] | [phone] | | [facility] | | [address] | | | - LABORATORY | | [...] St | [place] | [phone] | | [facility] | | [address] | | | - LABORATORY | | | | + + + + + POC Glucose (09/07/2018 12:34 PM PST) + +-------+ + + + | Component | Value | Ref Range | Performed | Pathologist | | | | | At | Signature | + +-------+ + + + | Glucose, | 81 | 70 - 109 mg/dL | [facility] | | | POC | | | [facility] | | | | | | [...] [address] | [place] | [phone] | | [facility] | | [address] | | | - LABORATORY | | [...] + | [facility] | [address] | [place] | [phone] | | [facility] | | [address] | | | - LABORATORY | | | | + + + + + Culture, Wound, Smear (09/07/2018 11:24 AM PST) + + + + + + | Component | Value | Ref Range | Performed | Pathologist | | | | | At | Signature | + + + + + + | Culture | 3+ Staphylococcus | | [facility] | | | | aureus,Methicillin | | [facility] | | | | resistant (MRSA)Comment: | [...] St | [place] | [phone] | | [facility] | | [address] | | | - LABORATORY | | [...] [address] | [place] | [phone] | | [facility] | | [address] | | | - LABORATORY | | [...] + | [facility] | [address] | [place] | [phone] | | [facility] | | [address] | | | - LABORATORY | | [...] | | | | aureus,Methicillin | | [facility] | | | | resistant (MRSA)Comment: [...] | | | Result | | | [facility] | | | | | | MEDICAL | | | | | | CENTER - | | | | | | LABORATORY | | + + + + + + | Gram Stain | No organisms seen | | [facility] | | | Result | | | [facility] | | [...] + | [facility] | [address] | [place] | [phone] | | [facility] | | [address] | | | - LABORATORY | | [...] St | [place] | [phone] | | [facility] | | [address] | | | - LABORATORY | | [...] St | [place] | [phone] | | [facility] | | [address] | | | - LABORATORY | | [address] | [place] | [phone] | | [facility] | | [address] | | | - LABORATORY | | [...] (L) | 50 - 160 ug/dL | [facility] | | | | | [...] St | [place] | [phone] | | [facility] | | [address] | | | - LABORATORY | | | | + + + + + Culture, Blood (09/07/2018 5:15 AM PST) + + + + + + | Component | Value | Ref Range | Performed | Pathologist | | | | | At | Signature | + + + + + + | Culture | No growth after 5 days | | [facility] | | | | incubation. | | [...] St | [place] | [phone] | | [facility] | | [address] | | | - LABORATORY | | [...] | | | | | mg/dL | [facility] | | | | | | MEDICAL | | | | | | CENTER - | | | | | | LABORATORY | | + + + + + + | eGFR if not | 10 (L) | >=60 | [facility] | | | | | mL/min/1.73m2 | [facility] | | | [facility] | | | MEDICAL | | | [...] 3.7 | 2.5 - 4.6 mg/dL | [facility] [...] + | [facility] | [address] | [place] | [phone] | | [facility] | | [address] | | | - LABORATORY | | [...] St | [place] | [phone] | | [facility] | | [address] | | | - LABORATORY | | [...] ST. | [address] | [place] | [phone] | | [facility] | | [address] | | | - LABORATORY | | | | + + + + + Surgical Pathology Exam (09/07/2018 12:00 AM [facility]) + + | Specimen | + + | | + + + + + | Narrative | Performed At | + + + | SPECIMEN(S): A LEFT 2ND AND 3RD TOES SPECIMEN SOURCE: A. LEFT | CT PATHOLOGY | | 2ND AND 3RD TOES CLINICAL HISTORY: Infection left foot. FINAL | INCYTE | | PATHOLOGIC DIAGNOSIS: Left 2nd and 3rd toes, excision: - | | | Necrotizing suppurative soft tissue inflammation with extension to | | | underlying bone, consistent with clinical history of diabetic foot | | | infection and osteomyelitis. CLR:[facility]:C2NR MICROSCOPIC | | | EXAMINATION: Histologic sections [...] LABORATORY: The technical component was performed by [employer] | | | [facility], [address] [place] [address] (Deputy Sheriff Chief: | | | Val Gomez MD; CLIA# [id number]). Professional interpretation was | | | performed by [employer], [facility] | | | Branch, [address] [facility], [place] [address] (Deputy Sheriff Chief: | | | Raciel Cho M.D.; [facility]#: [id number]). | | | Diagnostician: Raciel Cho MD [...] + | [facility] | [address] | [place] | [phone] | | [facility] | | [address] | | | - LABORATORY | | [address] | [place] | [phone] | | [facility] | | [address] | | | - LABORATORY | | | | + + + + + POC Glucose (09/06/2018 11:56 AM PST) + +-------+ + + + | Component | Value | Ref Range | Performed | Pathologist | | | | | At | Signature | + +-------+ + + + | Glucose, | 82 | 70 - 109 mg/dL | [facility] [...] ST. | [address] | [place] | [phone] | | [facility] | | [address] | | | - LABORATORY | | [...] St | [place] | [phone] | | [facility] | | [address] | | | - LABORATORY | | | | + + + + + C-Reactive Protein (09/06/2018 5:55 AM PST) + + + + + + | Component | Value | Ref Range | Performed | Pathologist | | | | | At | Signature | + + + + + + | CRP | 226.92 (H) | <8.00 mg/L | [facility] | | | | | [...] + | [facility] | [address] | [place] | [phone] | | [facility] | | [address] | | | - LABORATORY | | | | + + + + + Sedimentation Rate (09/06/2018 5:55 AM PST) + +--------+ + + + | Component | Value | Ref Range | Performed | Pathologist | | | | | At | Signature | + +--------+ + + + | Erythrocyte | 84 (H) | <20 mm/hr | [facility] | | | | | | [facility] | | | Sedimentati | | | [...] St | [place] | [phone] | | [facility] | | [address] | | | - LABORATORY | | [...] + | [facility] | [address] | [place] | [phone] | | [facility] | | [address] | | | - LABORATORY | | | | + + + + + Magnesium (09/06/2018 5:55 AM PST) + +-------+ + + + | Component | Value | Ref Range | Performed | Pathologist | | | | | At | Signature | + +-------+ + + + | Magnesium | 2.1 | 1.8 - 2.5 mg/dL | [facility] | | | | | | [facility] | | | | | | [...] [address] | [place] | [phone] | | [facility] | | [address] | | | - LABORATORY | | [...] St | [place] | [phone] | | [facility] | | [address] | | | - LABORATORY | | [...] mL/min/1.73m2 | [facility] | | | [facility] | RATE,ESTIMATED | | MEDICAL | | | | mL/min/1.90v0Bupx than | | CENTER - | | [...] | ine Ratio | | | [facility] | | [...] St | [place] | [phone] | | [facility] | | [address] | | | - LABORATORY | | [...] | | | POC | | | [facility] | | | [...] St | [place] | [phone] | | [facility] | | [address] | | | - LABORATORY | | [...] [address] | [place] | [phone] | | [facility] | | [address] | | | - LABORATORY | | [...] to be confirmed by conventional methods | [facility] | | | [facility] | | | MEDICAL CENTER | | | - LABORATORY | + + + + + + + + | Performing | Address | City/State/Zipcode | Phone Number | | Organization | | | | + + + + + | [facility] | [address] | [place] | [phone] | | [facility] | | [address] | | | - LABORATORY | | [...] | | | (AA) | | [facility] | | | [...] + | [facility] | [address] | [place] | [phone] | | [facility] | | [address] | | | - LABORATORY | | [...] ST. | [address] | [place] | [phone] | | [facility] | | [address] | | | - LABORATORY | | [...] (H) | 7 - 18 mg/dL | [facility] | | | | | | [facility] | | | | | | MEDICAL | | | | | | CENTER - | | | | | | LABORATORY | | + + + + + + | Creatinine | 6.72 (H) | 0.60 - 1.30 | [place] | | | | | mg/dL | [facility] | | | | | | MEDICAL | | | | | | CENTER - | | | | | | LABORATORY | | + + + + + + | eGFR if not | 8 (L)Comment: GLOMERULAR | >=60 | [place] | | | | FILTRATION | mL/min/1.73m2 | [facility] | | | MI[facility]ESIAN | RATE,ESTIMATED | | MEDICAL | | | | mL/min/1.41f5Btuy than | | CENTER - | | [...] | bulin Ratio | | | [facility] | | | | | | MEDICAL | | | | | | CENTER - | | | | | | LABORATORY | | + + + + + + | BUN/Creatin | 4.9 | | [facility] | | | ine Ratio | | | [facility] | | [...] [address] | [place] | [phone] | | [facility] | | [address] | | | - LABORATORY | | [...] | Basophils | | K/uL | [facility] | | | | [...] | | nRBC | | K/uL | [facility] | | | | [...] + + | [facility] | [address] | [place] | [phone] | | [facility] | | [address] | | | - LABORATORY | | | | + + + + + documented in this encounter Visit Diagnoses + + | Diagnosis | + + | Cellulitis of left lower extremity - Primary Cellulitis and abscess of leg, except | | foot | + + | Cellulitis, unspecified cellulitis site | + + | Anemia in ESRD (end-stage renal disease) ([facility]) Anemia in chronic kidney disease | + + | End stage renal disease ([facility]) End stage renal disease | + + | Type II or unspecified type diabetes mellitus with renal manifestations, not stated as | | uncontrolled(250.40) ([facility]) Type II or unspecified type diabetes mellitus with renal | | manifestations, not stated as uncontrolled | + + | Diabetic ulcer of left midfoot associated with type 2 diabetes mellitus, limited to | | breakdown of skin ([facility]) | + + | Gangrene of left foot (HCC) | + + | Diabetes mellitus, type II, INSULIN & ORAL Control Type II or unspecified type | | diabetes mellitus without mention of complication, not stated as uncontrolled | + + | Typical atrial flutter (HCC) Atrial flutter | + + | Heart murmur Undiagnosed cardiac murmurs | + + | Osteomyelitis of ankle or foot, acute, left (HCC) | + + | Diabetic foot ulcer (HCC) Type II or unspecified type diabetes mellitus with other | | specified manifestations, not stated as uncontrolled | + + | Diabetic neuropathy (HCC) Type II or unspecified type diabetes mellitus with | | neurological manifestations, not stated as uncontrolled | + + | Dyslipidemia Other and unspecified hyperlipidemia | + + | Hepatitis C Unspecified viral hepatitis C without hepatic coma | + + | Elevated hemoglobin A1c Other abnormal blood chemistry | + + | Hypertension Unspecified essential hypertension | + + documented in this [...] apixaban (ELIQUIS) tablet 2.5 | Given | 09/10/20 | 2.5 mg | | | | mg 2.5 mg, Oral, 2 TIMES DAILY, | | 18 8:53 | | | | | First dose on Sun09/10/18 at 1115 | | PM PST | | | | + +-------+ +--------+---+---+ +-------+ +--------+---+---+ | Given | 09/10/20 | 2.5 mg | | | | | 18 12:25 | | | | | | PM PST | | | | +-------+ +--------+---+---+ +---+---+ | | | +---+---+ + +-------+ +--------+---+---+ | aspirin chewable tablet 162 mg | Given | 09/10/20 | 162 mg | | | | 162 mg, Oral, DAILY, First dose | | 18 9:00 | | | | | on 09/08/18 at 1615 | | AM PST | | | | + +-------+ +--------+---+---+ +-------+ +--------+---+---+ | Given | 09/09/20 | 162 mg | | | | | 18 9:31 | | | | | | AM PST | | | | +-------+ +--------+---+---+ | Given | 09/08/20 | 162 mg | | | | | 18 5:30 | | | | | | PM PST | | | | +-------+ +--------+---+---+ +---+---+ | | | +---+---+ + +-------+ +-------+---+---+ | aspirin EC tablet 81 mg 81 mg, | Given | 09/06/20 | 81 mg | | | | Oral, DAILY, First dose on Sun | | 18 9:19 | | | | | 09/06/18 at 0900, Do not cut or | | AM PST | | | | | crush., | | | | | | [...] | | +---+---+ + +---------+ +--------+-------+---+ | desmopressin (DDAVP) 36 mcg in | New Bag | 09/07/20 | 36 mcg | 118 | | | sodium chloride 0.9% 50 mL IVPB | | 18 3:31 | | mL/hr | | | 36 mcg (0.3 mcg/kg | | PM PST | | | | | 120 kg), Intravenous, Administer | | | | | | | over 30 Minutes, ONCE, Sat | | | | | | | 09/07/18 at 1400, For 1 dose, Keep | | | | | | | in refrigerator., | | | | | | + +---------+ +--------+-------+---+ + +---+ | | | + +---+ | dextrose 50% injection 12.5 g | | | 12.5 g, Intravenous, PRN, Low | | | Blood Sugar, Starting [facility] | | | 09/05/18 at 2156 | | + +---+ | | | + +---+ + +-------+ +--------+---+ + | epoetin padilla (EPOGEN, PROCRIT) | Given | 09/06/20 | 3,200 | | Abdomen- | | 20,000 units/mL injection 3,200 | | 18 9:52 | Units | | LLQ | | Units 3,200 Units, Subcutaneous, | | PM PST | | | | | THREE TIMES WEEKLY (Once per day | | | | | | | on Sun), First dose on | | | | | | | 09/06/18 at 2100 | | | | | | + +-------+ +--------+---+ + +---+---+ | | | +---+---+ + +-------+ +--------+---+ + | epoetin padilla [...] +---+---+ | | | +---+---+ + +---------+ +--------+ +---+ | ferric gluconate (FERRLECIT) | New Bag | 09/10/20 | 250 mg | 90 mL/hr | | | 250 mg in sodium chloride 0.9% | | 18 5:02 | | | | | 250 mL IVPB 250 mg, Intravenous, | | PM PST | | | | | Administer over 3 Hours, EVERY | | | | | | | 24 HOURS INTERVAL, First dose on | | | | | | | 09/08/18 at 1700, For 3 days | | | | | | + +---------+ +--------+ +---+ +---------+ +--------+ +---+ | New Bag | 09/09/20 | 250 mg | 90 mL/hr | | | | 18 4:33 | | | | | | PM PST | | | | +---------+ +--------+ +---+ | New Bag | 09/08/20 | 250 mg | 90 mL/hr | | | | 18 5:30 | | | | | | PM PST | | | | +---------+ +--------+ +---+ +---+---+ | | | +---+---+ + [...] | | +---+---+ + +-------+ +------+---+---+ | glimepiride (AMARYL) tablet 1 | Given | 09/06/20 | 1 mg | | | | mg 1 mg, Oral, DAILY BEFORE | | 18 6:32 | | | | | BREAKFAST, First dose on Fri | | AM PST | | | | | 09/06/18 at 0700 | | | | | | + +-------+ +------+---+---+ +---+---+ | | | +---+---+ + +-------+ +--------+---+---+ | heparin 1,000 units/mL | Given | 09/06/20 | 1,000 | | | | injection 1,000 Units 1,000 | | 18 1:12 | Units | | | | Units, Intravenous, ONCE, Fri | | PM PST | | | | | 09/06/18 at 0915, For 1 dose, | | | | | | | While on [facility] Tx[facility] Dialysis | | | | | | + +-------+ +--------+---+---+ +---+---+ | | | +---+---+ + +-------+ +--------+---+---+ | heparin 1,000 units/mL | Given | 09/09/20 | 1,000 | | | | injection 1,000 Units 1,000 | | 18 9:40 | Units | | | | Units, Intravenous, ONCE, Mon | | AM PST | | | | | 09/09/18 at 0715, For 1 dose, | | | | | | | While on [facility] Dialysis | | | | | | + +-------+ +--------+---+---+ +---+---+ | | | +---+---+ + +-------+ +--------+---+ + | heparin 5,000 units/mL | Given | 09/06/20 | 5,000 | | Abdomen- | | injection 5,000 Units 5,000 | | 18 9:52 | Units | | LUQ | | Units, Subcutaneous, EVERY 12 | | PM PST | | | | | HOURS (2 times per day), First | | | | | | | dose on [facility] 09/05/18 at 2215 | | | | | | + +-------+ +--------+---+ + +-------+ +--------+---+ + | Given | 09/06/20 | 5,000 | | Abdomen- | | | 18 9:26 | Units | | RLQ | | | AM PST | | | | +-------+ +--------+---+ + | Given | 09/05/20 | 5,000 | | Abdomen- | | | 18 11:09 | Units | | LLQ | | | PM PST | | | | +-------+ +--------+---+ + +---+---+ | | | +---+---+ + +---------+ + + +---+ | heparin in half-normal saline | New Bag | 09/06/20 | 500 | 10 mL/hr | | | 50 units/mL infusion 500 | | 18 1:12 | Units/hr | | | | Units/hr (10 mL/hr), at 10 mL/hr, | | PM PST | | | | | Intravenous, CONTINUOUS, | | | | | | | Starting 09/06/18 at 0915, | | | | | | | For 1 day, While on [facility] | | | | | | | Dialysis | | | | | | + +---------+ + + +---+ +---+---+ | | | +---+---+ + +---------+ + +---------+---+ | heparin in half-normal saline | New Bag | 09/09/20 | 400 | 8 mL/hr | | | 50 units/mL infusion 400 | | 18 9:41 | Units/hr | | | | Units/hr (8 mL/hr), at 8 mL/hr, | | AM PST | | | | | Intravenous, DIALYSIS - | | | | | | | CONTINUOUS, Starting 09/09/18 | | | | | | | at 0715, For 1 day, While on | | | | | | | [facility] Dialysis | | | | | | + +---------+ + +---------+---+ +---+---+ | | | +---+---+ + +-------+ [...] | | | | | ineffective use [place] 10/325 if | | | | | [...] | | | | | | | [id number] Use NIGHT DOSE for | | | | | | | doses scheduled: HS, 3AM, | | | | | | | Nighttime [id number], | | | | | | + +-------+ +---------+---+ + +-------+ +---------+---+ + | Given | 09/06/20 | 2 Units | | Abdomen- | | | 18 9:30 | | | LLQ | | | AM PST | | | | +-------+ +---------+---+ + +---+---+ | | | +---+---+ + +-------+ +---------+---+---+ | iohexol (OMNIPAQUE 350) 350 | Given | 09/10/20 | 200 mLs | | | | mg/mL injection 200 mL 200 mL, | | 18 2:38 | | | | | Intravenous, ONCE PRN, Other, for | | PM PST | | | | | imaging CT study, Starting Tue | | | | | | | 09/10/18 at 1436, For 1 dose, | | | | | | | Radiology | | | | | | + +-------+ +---------+---+---+ +---+---+ | | | +---+---+ + +-------+ +-------+---+---+ | lisinopril (PRINIVIL, ZESTRIL) | Given | 09/06/20 | 40 mg | | | | tablet 40 mg 40 mg, Oral, DAILY, | | 18 9:30 | | | | | First dose on Sun09/06/18 at | | AM PST | | | | | 0900 | | | | | | + +-------+ +-------+---+---+ +---+---+ | | | +---+---+ + +-------+ +--------+---+---+ | metoprolol succinate | Given | 09/06/20 | 100 mg | | | | (TOPROL-XL) ER tablet 100 mg 100 | | 18 9:20 | | | | | mg, Oral, DAILY, First dose on | | AM PST [...] | | +---+---+ + +-------+ +------+---+---+ | morphine injection 1-4 mg 1-4 | Given | 09/08/20 | 2 mg | | | | mg, Intravenous, EVERY 3 HOURS | | 18 10:19 | | | | | PRN, Pain, Severe Pain, Starting | | AM PST | | | | | 09/07/18 at 1343, Slow IV | | | | | | | push, not faster than 2 | | | | | | | mg/minute. If ineffective or not | | | | | | | tolerated, use hydromorphone IV | | | | | | | if ordered., | | | | | | + +-------+ +------+---+---+ +-------+ +------+---+---+ | Given | 09/07/20 | 2 mg | | | | | 18 2:11 | | | | | | PM [...] | | | | | 09/06/18 at 0700, Indication: | | | | [...] | piperacillin-tazobactam (ZOSYN) | New Bag | 09/05/20 | 3.375 g | 200 | | | 3.375 g in sodium chloride 0.9% | | 18 11:08 | | mL/hr | | | 100 mL IVPB 3.375 g, | | PM PST | | | | | Intravenous, Administer over 0.5 | | | | | | | Hours, ONCE, [facility] 09/05/18 at | | | | | | | 2245, For 1 dose, | | | | [...] | | | | | | Indications: SKIN AND SOFT TISSUE | | | | | | | ABSCESS | | | | | | + +---------+ +---------+-------+---+ +---+---+ | | | +---+---+ + +---------+ +---------+ +---+ | piperacillin-tazobactam (ZOSYN) | New Bag | 09/10/20 | 3.375 g | 25 mL/hr | | | 3.375 g in sodium chloride 0.9% | | 18 8:53 | | | | | 100 mL IVPB 3.375 g, | | PM PST | | | | | Intravenous, Administer over 4 | | | | | | | Hours, EVERY 12 HOURS (2 times | | | | | | | per day), First dose on [facility] | | | | | | | 09/05/18 at 2245, | | | | | | | Extended-Infusion Zosyn Protocol: | | | | | | | infuse over 4 hours when | | | | | | | maintenance dose has a frequency | | | | | | | of Q8H (or Q12H for renal dose | | | | | | | adjustment). Give after HD on | | | | | | | hemodialysis days. Activate | | | | | | | system and mix before use., | | | | | | | Indications: SKIN AND SOFT TISSUE | | | | | | | ABSCESS | | | | | | + +---------+ +---------+ +---+ +---------+ +---------+ +---+ | New Bag | 09/10/20 | 3.375 g | 25 mL/hr | | | | 18 8:58 | | | | | | AM PST | | | | +---------+ +---------+ +---+ | New Bag | 09/09/20 | 3.375 g | 25 mL/hr | | | | 18 9:17 | | | | | | PM PST | | | | +---------+ +---------+ +---+ +---+---+ | | | +---+---+ + +-------+ + +---+---+ | renal multivitamin (DIALYVITE, | Given | 09/11/20 | 1 tablet | | | | VOL-CARE) tablet 1 tablet 1 | | 18 [...] | | +---+---+ + +-------+ +--------+---+---+ | senna (SENOKOT) tablet 8.6 mg | Given | 09/10/20 | 8.6 mg | | | | 8.6 mg, Oral, 2 TIMES DAILY, | | 18 8:53 | | | | | First dose on [facility] 09/05/18 at | | PM PST | | | | | 2215, If docusate ineffective or | | | | | | | not ordered., | | | | | | + +-------+ +--------+---+---+ +-------+ +--------+---+---+ | Given | 09/10/20 | 8.6 mg | | | | | 18 9:00 | | | | | | AM PST | | | | +-------+ +--------+---+---+ | Given | 09/09/20 | 8.6 mg | | | | | 18 9:32 | | | | | | AM [...] +-------+---+---+ +---+---+ | | | +---+---+ + +------+ +---------+-------+---+ | sodium chloride 0.9% (NS) bolus | Push | 09/10/20 | 150 mLs | 9000 | | | 150 mL 150 mL, Intravenous, | | 18 2:38 | | mL/hr | | | Administer over 1 Minutes, ONCE | | PM PST | | | | | PRN, for imaging CT study, | | | | | | | Starting 09/10/18 at 1436, For | | | | | | | 1 dose, Radiology | | | | | | + +------+ +---------+-------+---+ +---+---+ | | | +---+---+ + + + +---+ +---+ | sodium chloride 0.9% (NS) | Rate/Dos | 09/07/20 | | 10 mL/hr | | | infusion at 10 mL/hr, | e Change | 18 1:54 | | | | | Intravenous, CONTINUOUS, Starting | | PM PST | | | | | [facility] 09/05/18 at 2215 | | | | | | + + + +---+ +---+ +---------+ +---+-------+---+ | New Bag | 09/06/20 | | 100 | | | | 18 11:38 | | mL/hr | | | | PM PST | | | | +---------+ +---+-------+---+ | New Bag | 09/06/20 | | 100 | | | | 18 11:41 | | mL/hr | | | | AM PST | | | | +---------+ +---+-------+---+ +---+---+ | | | +---+---+ + +---------+ +-----+--------+---+ | vancomycin 1 g in sodium | New Bag | 09/09/20 | 1 g | 166.7 | | | chloride 0.9% 250 mL IVPB 1 g, | | 18 10:37 | | mL/hr | | | Intravenous, Administer over 90 | | PM PST | | | | | Minutes, ONCE, 09/09/18 at | | | | | | | 2200, For 1 dose, Activate system | | | | | | | and mix before use., | | | | | | | Indications: Cellulitis, Dialysis | | | | | | | patient | | | | | | + +---------+ +-----+--------+---+ +---+---+ | | | +---+---+ + +---------+ + +--------+---+ | vancomycin 1,500 mg in sodium | New Bag | 09/05/20 | 1,500 mg | 176.7 | | | chloride 0.9% 250 mL IVPB 1,500 | | 18 6:42 | | mL/hr | | | mg, Intravenous, Administer over | | PM PST | | | | | 90 Minutes, ONCE, [facility] 09/05/18 at | | | | | | | 1810, For 1 dose, Keep in | | | | | | | refrigerator., Indications: | | | | | | | NON-PURULENT SKIN AND SOFT TISSUE | | | | | | | INFECTION | | | | | | + +---------+ + +--------+---+ +---+---+ | | | +---+---+ + +---------+ +--------+-------+---+ | vancomycin 500 mg in sodium | New Bag | 09/07/20 | 500 mg | 100 | | | chloride 0.9% 100 mL IVPB 500 | | 18 3:42 | | mL/hr | | | mg, Intravenous, Administer over | | AM PST | | | | | 60 Minutes, ONCE, 09/07/18 at | | | | | | | 0345, For 1 dose, Activate system | | | | | | | and mix before use., | | | | | | | Indications: Cellulitis, Dialysis | | | | | | | patient | | | | | | + +---------+ +--------+-------+---+ + +---+ | | | + +---+ | vancomycin per pharmacy | | | PHARMACY CONSULT, Starting [facility] | | | 09/05/18 at 1742, Indications: | | | Cellulitis, Dialysis patient | | + +---+ | | | + +---+ documented in this encounter
--- OUTSIDE RECORDS SUMMARY | ~2020-03-04 | XMS | Encounter Summary ---
Demographics + + + | Address | [address] | | | [place] [address] | + + + | Home Phone | | + + + | Preferred Language | Unknown | + + + | Marital Status | | + + + | Buddhist Affiliation | 1041 | + + + | Race | Unknown | + + + | Ethnic Group | Unknown | + + + Author + + + | Author | [facility] | | | and [place] | + + + | Organization | [facility] | | [...] Team Providers + +------+ + | Care Slack Line Yarder Name | Role | Phone | + +------+ + PCP | Unavailable | + +------+ + Encounter Details +--------+ + + + + | Date | Type | Department | Care Team | Description | +--------+ + + + + | 10/16/ | Abstract | [facility] | [place], | | | 2012 | | NEPHROLOGY [address] | [place], [place] [address] | | | | | [address] | [address], [place] | | | | | [place] | [address] [place] | | | | | [phone] | [id number] | | | | | [phone] | | | +--------+ + + + [...]
--- OUTSIDE RECORDS SUMMARY | ~2020-03-04 | XMS | Encounter Summary ---
Demographics + + + | Address | [address] | | | [place] [address] | + + + | Home Phone [...] + | Organization | [facility] [...] Team Providers + +------+ + | Care Sheet Tailer Name | Role | Phone | + [...] | mass | Chelane R, | [address] | | | | | Procedures | [facility] [address] [place] | | | | | MRI Abdomen | [address], | [place] | | | | | wo Contrast | [address] | [address] | | | | | 10/18>PEND | REZA COBB, | Phone: | | | | | YH>MRI ABDOM | [place] [address] | [phone] | | | | | | Phone: | Fax: | | | | | | [phone] | | | | | | | Fax: | | | | | | | [phone] | | +--------+--------+ + + + + Reason for Visit + + + | Reason | Comments | + + + | Chronic Renal | stage five | | Failure | | + + + Encounter Details +--------+---------+ + + + | Date | Type | Department | Care Team | Description | +--------+---------+ + + + | 10/17/ | Office | [facility] | [place], | Chronic kidney | | 2012 | Visit | NEPHROLOGY [address] | [place] [address] | disease (CKD), stage | | | | [address] | [address], [place] | V ([facility]) (Primary | | | | [place], [place] | [address] [place], [place] | Dx); Type II or | | | | [address] | [id number] | unspecified type | | | | [phone] | | diabetes mellitus | | | | | | with renal | | | | | | manifestations, | | | | | | uncontrolled ([facility]); | | | | | | Unspecified | | | | | | hypertensive kidney | | | | | | disease with chronic | | | | | | kidney disease | | | | | | stage I through | | | | | | stage IV, or | | | | | | unspecified; | | | | | | Nephrotic syndrome; | | | | | | BPH (benign | | | | | | prostatic | | | | | | hyperplasia); Right | | | | | | renal mass | +--------+---------+ + + + Social History [...] + + + | Blood Pressure | 154/82 | 10/17/2012 3:30 PM | | | | | PST | | + + + + + | Pulse | 78 | 10/17/2012 3:30 PM | | | | | PST | | + + + + + | Temperature | 36.1 C (96.9 F) | 10/17/2012 3:30 PM | | | | | PST | | + + + + + | Respiratory Rate | 16 | 10/17/2012 3:30 PM | | | | | PST | | + + + + + | Oxygen Saturation | 98% | 10/17/2012 3:30 PM | | | | | PST | | + + + + + | Inhaled Oxygen | - | - | | | Concentration | | | | + + + + + | Weight | 130.6 kg (288 lb) | 10/17/2012 3:30 PM | | | | | PST | | + + + + + | Height | 185.4 cm (6' 1") | 10/17/2012 3:30 PM | | | | | PST | | + + + + + | Body Mass Index | 38 | 10/17/2012 3:30 PM | | | | | PST | | + + + + + documented in this encounter Patient Instructions Patient Instructions Sarai Pabon ARNP - 10/17/2012 4:43 PM PSTPlease monitor b lood pressure at home. Goal <130/80. Notify office if not within goal. Diabetic goals: Hgb A1c <7% and blood sugars 90-140. Please avoid taking NSAIDs. These are some commonly used NSAIDs: ibuprofen (Motrin,Advil), naproxen (Aleve, Naprosyn), celecoxib (Celebrex), indomethacin (Indocin), meloxicam (Mobic). Try using water pill (lasix) daily to help with swelling, potassium and blood pressure. Please call with any questions. Electronically signed by TERRY Lucero at 07/2013 4:44 PM PST documented in this encounter Progress Notes Sarai Pabon ARNP - 10/17/2012 3:57 PM PSTFormatting of this note might be diff erent from the original. Nephrology Consult - New Visit Visit date: 10/17/2012 Referring provider: Frances Obrien MD Primary care provider: Frances Obrien MD HPI: Celso Caro is a 52 y.o. male referred by Dr. Obrien for evaluation of diabetic nephrop athy with worsening renal failure. Celso also has hypertension, diabetes mellitus type 2 req uiring insulin that has not been well controlled, chronic diabetic foot ulcer, hyperlipidemi a, and hepatitis C. He also has benign prostatic hypertrophy with 3 UTI's in the past year. He was started on flomax in the past few months but he stopped it due to diarrhea. He does n ot notice hesitancy but does have nocturia x 2 that is new in the past year. He reports fir st hearing about his kidney problems approximately 12 years ago when he was diagnosed with gregory whitten. He has not seen a build and release manager yet. According to Dr. Obrien note, an ultrasound was scheduled for last May and never completed. Celso' kidney disease appears to have steadily progressed over the past 3 years. Serum crea tinine 1.63 10/13/09 eGFR 45 ml/min, 1.95 03/23/10, 2.32 01/12/11, 3.32 10/16/11. Now it is 4.81 eGFR 13 ml/min. He also has nephrotic range proteinuria. Celso reports having more lower extremity swelling than usual in the past week, "due to th e antibiotic I am on". He uses furosemide 20 mg as needed for leg swelling, but has not been using recently because he heard it was bad for his kidneys. Patient Active Problem List Diagnoses Date Noted POA Chronic kidney disease (CKD), stage V 10/18/2012 Nephrotic syndrome 10/18/2012 Right renal mass 10/18/2012 BPH (benign prostatic hyperplasia) Recurrent UTI Heart murmur Chronic kidney disease Unspecified hypertensive kidney disease with chronic kidney disease stage I through sta ge IV, or unspecified Type II or unspecified type diabetes mellitus with renal manifestations, uncontrolled Vitamin d deficiency Obesity Dyslipidemia Hepatitis C Diabetic foot ulcer 01/01/2012 Past Medical History Diagnosis Date Dyslipidemia Cellulitis and abscess of leg 09/27/2009 except foot, recurring Obesity Vitamin d deficiency Diabetes mellitus, type 2 1999 with neuropathy Diabetic foot ulcer 01/01/12 cellulits, 2nd left toe Arthritis 09/15/2012 Hypertension 2002 Chronic kidney disease 2000 Heart murmur Since childhood Recurrent UTI BPH (benign prostatic hyperplasia) flomax caused diarrhea Hepatitis C 2006 Past Surgical History Procedure Date Knee arthroscopy 2006 & 2007 Bilateral Tonsillectomy 1964 Right arm laceration repair 1977 Left shoulder surgery 1979 Left forearm surgery for fracture 1986 History Social History Marital Status: Spouse Name: N/A Number of Children: 5 Years of Education: college Occupational History Not on file. Social History Main Topics Smoking status: Former Smoker -- 0.0 packs/day Types: Cigarettes Quit date: 09/14/2011 Smokeless tobacco: Never Used Alcohol Use: Yes 2 beers/ month Drug Use: No Sexually Active: Not on file Other Topics Concern Not on file Social History Narrative No narrative on file Family History Problem Relation Age of Onset Cirrhosis Mother Other (See Comment) Father MVA Kidney disease Neg Hx ROS: General Denies anorexia, fatigue/weakness, and unusual weight change. CV Denies chest pain, palpitations, dyspnea on exertion, orthopnea, and peripheral edema. Resp Denies cough and wheezing. GI Denies nausea, vomiting, change in bowel habits, melena, and indigestion/heartburn. Dysuria 2 weeks ago when he had UTI. Nocturia x 2 for the past 1-2 years. Denies inco ntinence, dysuria, hematuria, urinary frequency, hesitancy, and flank pain. No history of nephrolithiasis. Endo Type 2 diabetes x 12 years that has not been well controlled. Denies thyroid problems. Heme Denies abnormal bruising, bleeding, and anemia. MS Arthritis in knees. Denies joint pain, muscle pain, or weakness. Neuro Denies seizures, CVA and frequent headaches. Eyes No known retinopathy though patient reports he has not seen opthalmology for at least 2 years. Denies glasses and vision loss. Psych Denies depression and anxiety. Derm Denies rash. MISC Hepatitis C diagnosed 4-5 years ago. No history of autoimmune disorders. No chronic or frequent NSAID use. No recent imaging contrast exposure. Outpatient Prescriptions Marked as Taking for the 10/17/12 encounter (Office Visit) with TERRY Varela Medication Sig Dispense Refill insulin glargine (LANTUS) 100 units/mL injection Inject 120 Units under the skin nightl y. sitaGLIPtin (JANUVIA) 100 mg tablet Take 100 mg by mouth Daily. metoprolol (TOPROL-XL) 100 MG 24 hr tablet Take 100 mg by mouth Daily. lisinopril (PRINIVIL,ZESTRIL) 40 MG tablet Take 40 mg by mouth Daily. omeprazole (PRILOSEC) 20 mg capsule Take 20 mg by mouth every morning (before breakfast ). fenofibrate (TRICOR) 145 mg tablet Take 145 mg by mouth nightly. diltiazem (DILACOR XR) 180 mg 24 hr capsule Take 180 mg by mouth Daily. atorvaSTATin (LIPITOR) 10 mg tablet Take 10 mg by mouth Daily. cholecalciferol (VITAMIN D-3) 5000 UNITS TABS Take 10,000 Units by mouth Daily. aspirin 81 mg EC tablet Take 81 mg by mouth Daily. Allergies Allergen Reactions Amlodipine Besylate Unknown Metformin Diarrhea Physical Exam: Filed Vitals: 10/17/12 1530 BP: 154/82 Pulse: 78 Temp: 36.1 C (96.9 F) TempSrc: Oral Resp: 16 Height: 1.854 m (6' 1") Weight: 130.636 kg (288 lb) SpO2: 98% Constitutional: Pleasant, overweight male in no acute distress. Mouth/Throat: Oropharynx is clear and moist. Eyes: Pupils are equal, round, and reactive to light, EOMI. Neck: Neck supple. No JVD present. No thyromegaly present. Cardiovascular: S1, S2 with regular rate and rhythm. 2-3/6 systolic murmur, no gallop or ru b. Lungs: Effort normal and breath sounds normal. No respiratory distress. No crackles or whee zes. Abdominal: Soft. Bowel sounds are normal. No distension or tenderness. No bruits noted thou gh exam limited due to body habitus. No CVA tenderness. Musculoskeletal: 1+ peripheral edema bilaterally. Diabetic foot ulcer noted on plantar surf raudel of right foot, covered. Neurological: Alert and oriented x 3, non focal, nonlateralizing. Skin: Skin is warm. No rash. Psychiatric: Normal mood and affect. Reviewed labs with patient: Lab Results Component Value Date CREA 4.8 10/10/2012 BUN 48 10/04/2012 NA 141 10/04/2012 K 5.2 10/04/2012 CL 111 10/04/2012 CO2 18 10/04/2012 Lab Results Component Value Date CALCIUM 8.7 10/04/2012 PHOS 3.6 03/23/2010 ALBUMIN Date Value Range Status 10/04/2012 3.5 3.5 - 5.0 g/dL Final Vitamin D 25 OH: 20 Cholesterol 295, Triglycerides 395, HDL 33.7, LDL 182 UA: records not available Culture: E.coli, resistant to cipro. Hgb A1c: 6.8 Estimated GFR Date Value Range Status 10/10/2012 13.0 Final 10/10/12 creatinine clearance: 25 ml/min 10/10/12 24 hour protein: 17,675 mg Recent Results (from the past 24 hour(s)) POCT URINALYSIS Component Value Range POC COLOR UA Yellow POC CLARITY UA Clear POC GLUCOSE UA 250 mg/dL POC BILIRUBIN UA Negative POC KETONES UA Negative Negative POC SPECIFIC GRAVITY UA 1.025 POC BLOOD UA Small POC PH UA 6.0 POC PROTEIN UA >=300 mg/dL POC UROBILINOGEN UA 0.2 mg/dL POC NITRITE UA Negative POC LEUKOCYTE ESTERASE UA Negative RED SUB UA Negative ICTOTEST Negative REMARK Reviewed retroperitoneal ultrasound report with patient: 10/15/12 Right kidney 11.4 cm, left kidney 12 cm. No hydronephrosis or calculi. Right yovany l mass, extending from the interpolar region, increased in size from previous study 03/29/10 . Previously 49w93q13 mm, now 41w70w71 mm. 90 cc of urine in bladder prevoid, no bladder abnormalities. Post void residual is 16 cc. Impression: Right renal nodule has increased in size since the prior study. If the patient' s creatinine allows, a three-phase kidney CT is recommended. Otherwise an MRI may be able to determine whether this lesion is cystic or solid. Record Review: Dr. Obrien 10/09/12 Follow up for review of lab work, DM and cough. Reports that Hgb A1C went from 10 to 6.8 recently. Kidney function noted to have dropped. Referral to nephrology, started lipitor, rochephin and cipro for UTI. Assessment and Plan: 1. CHRONIC KIDNEY DISEASE STAGE IV-V (585.5) Serum creatinine has steadily increased for the past few years, now nearing end stage accor ding to eGFR, creatinine clearance more optomistic. Mild hyperkalemia and metabolic acidosis , no uremic symptoms. Nephrotic range proteinuria. CKD is most likely due to diabetic nephro pat, though without a biopsy, concurrent glomerulonephritis cannot be entirely ruled out. Given the late stage kidney disease, the risks of renal biopsy outweigh the benefits. Will c omplete serologic work up. No signs of obstruction or other structural reasons for acute kidney injury on ultrasound. Kidneys normal sized. There is a right renal mass noted that has grown in size in the past 2 years. This will need to be evaluated further by MRI since patient's current kidney functio n would not tolerate contrast exposure. Educated patient about CKD and contributor. Advised that he focus on tightening glycemic an d hypertensive control, as well as avoidance of NSAIDs, contrast imaging and nephrotoxic med ications. I was valerie with Celso, explaining that he is nearing end stage kidney disease and will need renal replacement therapy, likely within the next 6 months. Briefly discussed luke lysis options but patient was understandably overwhelmed so will discuss more at follow up v yeny. Advised that he avoid high potassium foods and juices since he is high risk for hyperkalemi a as kidney function falls. Will start sodium bicarb to treat acidosis, to prevent bone buffering. Goal bicarb >20. 2. TYPE II DIABETES MELLITUS WITH RENAL MANIFESTATIONS, UNCONTROLLED (250.42) Diabetes has not been well controlled. Patient reports that he does not check his blood sug ars. Recent Hgb A1c was quite low compared to patient's previous results (10.2% in March, now 6.8%). It is unclear if this is an accurate result. Educated patient about effect of uncontrolled diabetes on kidneys. Advised that he start ch ecking blood sugars and working with Dr. Obrien to improve glycemic control. Advise adjusting Januvia down to 25 mg daily due to creatinine clearance. 3. HYPERTENSIVE KIDNEY DISEASE WITH CKD STAGE I-IV (403.90) Blood pressure above goal currently. Patient does appear to be retaining fluid, likely in p art due to nephrotic syndrome. He has been avoiding lasix because he heard it "hurts kidneys ". Advised that he start taking furosemide on a daily basis. The dose he is on is a relative ly low dose, especially in light of his low renal function, so I instructed on watching for urinary response to make sure he is responding to it. Furosemide can help with HTN and mild hyperkalemia also. 4. NEPHROTIC SYNDROME (581.9) Patient has all the features of nephrotic syndrome except for low albumin. Discussed with p atient his risks of retaining fluid. Will treat with diuretic and monitor. 5. BPH (600.90) No significant PVR and no hydronephrosis on ultrasound, though patient has been having recu rrent UTIs. Patient will need to be evaluated further by urology. 6. RENAL MASS (593.9) Increased size in the past 2 years. This will need to be evaluated further by MRI WITHOUT g adolinium, since patient's current kidney function will not tolerate contrast CT. Patient pr efers to have MRI completed at [facility]. Follow up in one month, sooner if needed. Labs prior including renal panel, iPTH, 24 hour u rine for creatinine clearance and protein, SPEP/UPEP, C3, C4, ANCA, Hepatitis C, Hepatitis B antigen and antibody, UA. Will schedule an MRI also to further evaluate renal mass. Educate d patient on accurate 24 hour urine collection. Patient verbalized agreement and understandi ng of above plan. 70 minutes spent face to face with patient with greater than 50% of time in counseling, edu cation and coordination of care as noted above. This patient was discussed with Dr. Orozco. CC: Frances Obrien, Thank you for referring this pleasant patient to nephrology. He has advanced kidney disease nearing end stage with nephrotic range proteinuria. It is likely due to diabetic nephropath y, but I will be checking serologies at next visit to rule out other etiologies. There were two medication adjustments that I would recommend due to his low kidney function . Januvia should be decreased to 25 mg (male with creatinine >3.0) and also fenofibrate is c ontraindicated in creatinine clearance < 30 ml/min. I have asked him to stop taking fenofibr ate but will leave Januvia adjustment up to you since his other medications will likely need to be adjusted. His ultrasound showed a renal mass that is increasing in size. I have ordered an MRI to bo carla further. Due to his BPH and recurrent UTI's, it would be great if he could see a urologist. Please l et me know if you would like me to refer him. Thank you for your assistance with this patient. Please call with any questions or concern s: [phone]. Sincerely, TERRY Barnes documented i n this encounter Plan of Treatment Not on filedocumented as of this encounter Procedures + +--------+ + + + | Procedure Name | Priori | Date/Time | Associated Diagnosis | Comments | | | ty | | | | + +--------+ + + + | POCT URINALYSIS, | Routin | 10/17/2012 | Chronic kidney | Results for this | | AUTO WITH CONF | e | 3:25 PM | disease (CKD), stage | procedure are in the | | | | PST | V ([facility]) | results section. | + +--------+ + + + documented in this encounter Results MRI Abdomen wo Contrast (10/28/2012 6:10 PM PST) + + | Specimen | + + | | + + + + + | Narrative | Performed At | + + + | [facility] | [facility] | | Department [address] [place] [address] | [facility] | | [ rep [address]] [ rep [facility] | | [facility]] Signed | - IMAGING | | | | | Patient Name: CASE,CELSO Pena Physician: | | | FACK.[id number] : 1960 Age: 52 Sex: M Unit #: [id number] | | | Exam Date: 10/28/12 Location: IMG | | | Report #: [id number] Page: | | | %(RAD)RES..mtdd.print.filter("pg") of %(RAD) | | | RES..mtdd.print.filter("tpg") | | | | | | Accession Number: [id number] | | | MRI ABDOMEN WITHOUT IV CONTRAST CLINICAL HISTORY: A | | | 52-YEAR-OLD MALE WITH ADVANCED KIDNEY DISEASE, UNDERGOING EVALUATION | | | FOR RIGHT RENAL MASS SEEN ON ULTRASOUND. COMPARISON: | | | Renal ultrasound 10/15/2012 and 03/29/2010. TECHNIQUE: | | | Axial T10 in- and uuc-nr-svrmk, T1 VIBE, T1 fat-sat VIBE, T2 HASTE; [...] Transcribed Date/Time: 10/28/2012 20:47 | | | Repair Electric Motor Assembler: <<Signature on File>> | | | | | | Kehinde Willis MD10/29/121939 <Electronically signed by Kehinde | | | rKisti Willis MD> Kehinde Willis MD 10/28/121809 | | | Repair Electric Motor Assembler: Tej [id number] | | | TERRY Lucero | | + + + + + + + + | Performing | Address | City/State/Zipcode | Phone Number | | Organization | | | | + + + + + | [facility] | [address] | [place], [place] | [phone] | | [facility] | | [id number] | | | - IMAGING | | | | + + + + + POCT Urinalysis Dipstick Automated (10/17/2012 3:25 PM PST) + + + + + + | Component | Value | Ref Range | Performed | Pathologist | | | | | At | Signature | + + + + + + | Color, UA, | Yellow | | | | | POC | | | | | + + + + + + | Clarity, | Clear | | | | | UA, POC | | | | | + + + + + + | Glucose, | 250 mg/dL | | | | | UA, POC | | | | | + + + + + + | Bilirubin, | Negative | | | | | UA, POC | | | | | + + + + + + | Ketones, | Negative | Negative | | | | UA, POC | | | | | + + + + + + | Specific | 1.025 | | | | | [place], | | | | | | UA, POC | | | | | + + + + + + | Blood, UA, | Small | | | | | POC | | | | | + + + + + + | pH, UA, POC | 6.0 | | | | + + + + + + | Protein, | >=300 mg/dL | | | | | UA, POC | | | | | + + + + + + | Urobilinoge | 0.2 mg/dL | | | | | n, UA, POC | | | | | + + + + + + | Nitrite, | Negative | | | | | UA, POC | | | | | + + + + + + | Leukocyte | Negative | | | | | Esterase, | | | | | | UA, POC | | | | | + + + + + + | Reducing | | Negative | | | | Substances, | | | | | | Urine | | | | | + + + + + + | Bilirubin | | Negative | | | | Confirmatio | | | | | | n by | | | | | | Ictotest, | | | | | | Urine | | | | | + + + + + + | Remark | | | | | + + + + + + + + | Specimen | + + | Urine specimen | | (specimen) | + + documented in this encounter Visit Diagnoses + + | Diagnosis | + + | Chronic kidney disease (CKD), stage V ([facility]) - Primary Chronic kidney disease, Stage V | + + | Type II or unspecified type diabetes mellitus with renal manifestations, | | uncontrolled(250.42) ([facility]) Type II or unspecified type diabetes mellitus with renal | | manifestations, uncontrolled | + + | Unspecified hypertensive kidney disease with chronic kidney disease stage I through | | stage IV, or unspecified(403.90) Unspecified hypertensive kidney disease with chronic | | kidney disease stage I through stage IV, or unspecified | + + | Nephrotic syndrome Nephrotic syndrome with unspecified pathological lesion in kidney | + + | BPH (benign prostatic hyperplasia) Unspecified hyperplasia of prostate without | | urinary obstruction and other lower urinary tract symptoms (LUTS) | + + | Right renal mass Unspecified disorder of kidney and ureter | + + documented in this encounter
--- OUTSIDE RECORDS SUMMARY | ~2020-03-04 | XMS | Encounter Summary ---
Demographics + + + | Address | [address] | | | [place] [address] | + + + | Home Phone | | + + + | Preferred Language | Unknown | + + + | Marital Status | | + + + | Zoroastrian Affiliation | [id number] | + + + | Race | Unknown | + + + | Ethnic Group | Unknown | + + + Author + + + | Author | [facility] | | | and Scarana | + + + | Organization | [facility] | | [...] Providers + +------+ + | Care Rn Cardiac Name | Role | Phone | + [...] | | | | | | | fever | | | | | | | A-Fib CRF | | | +--------+--------+ + + + + Encounter Details +--------+ + + + + | Date | Type | Department | Care Team | Description | +--------+ + + + + | 12/28/ | Hospital | [facility] | Kori Ross MD | Atrial fibrillation | | 2019 - | Encounter | MED CTR SUR[facility] | [address] | with RVR ([facility]); | | | | [address] | [place] | Fever, unspecified | | 12/31/ | | [place] [address] | [phone] | fever cause; End | | 2019 | | [phone] | | stage renal disease | | | | | Halley Calvo MD | ([facility]); Diabetes | | | | | [address] | mellitus, type II, | | | | | [place] | insulin dependent | | | | | [id number] | ([facility]); SIRS | | | | | | (systemic | | | | | | inflammatory | | | | | | response syndrome) | | | | | | ([facility]) | +--------+ + + + + Social [...] + + + | Blood Pressure | 126/76 | 01/01/2020 8:01 AM | | | | | PDT | | + + + + + | Pulse | 77 | 01/01/2020 8:01 AM | | | | | PDT | | + + + + + | Temperature | 35.9 C (96.6 F) | 01/01/2020 8:01 AM | | | | | PDT | | + + + + + | Respiratory Rate | 20 | 01/01/2020 8:01 AM | | | | | PDT | | + + + + + | Oxygen Saturation | 98% | 01/01/2020 8:01 AM | | | | | PDT | | + + + + + | Inhaled Oxygen | - | - | | | Concentration | | | | + + + + + | Weight | 117 kg (257 lb 15 | 01/01/2020 4:30 AM | pt. request wt now | | | oz) | PDT | because should be | | | | | asleep at 7am | + + + + + | Height | 185.4 cm (6' 1") | 12/29/2019 11:00 PM | | | | | PDT | | + + + + + | Body Mass Index | 34.03 | 12/29/2019 11:00 PM | | | | | PDT | | + + + + + documented in this encounter Discharge Summaries Halley Calvo MD - 01/01/2020 11:08 AM PDT [place] [facility] DISCHARGE SUMMARY Pt. Name/Age/: Celso Caro 59 y.o. 1960 Date of Admission: 12/29/2019 Date of Discharge: 01/01/2020 Admitting Physician: Kori Ross MD Primary Care Provider: CARINE Mast Discharging Physician: Halley Calvo MD DISCHARGE DIAGNOSES: Active Hospital Problems Diagnosis End stage renal disease Diabetic foot ulcer Resolved Hospital Problems Diagnosis Fever Atrial fibrillation with RVR HOSPITAL COURSE: Please refer to the H&P for full details and the most recent rounding rounding (progress) n ote. 59 yo M with history of ESRD on HD, a flutter, PAD, IDDM, chronic R foot ulcer who presente d with fever to OSH. 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 No fever noted here. Was tachycardic with leukocytosis on arrival. Initial concern for viral upper respiratory tract infection but patient asymptomatic on yasemin m air. No cough. Chronic R foot ulcer does not appear infected (evaluated by Dr Schuster here) . Antibiotics as discussed below. #Atrial fibrillation with RVR Heart rate quickly improved here, continued home metoprolol. #ESRD Received HD here. Management per Nephrology. #R foot ulcer Evaluated by Dr Schuster with bedside debridement. No clear evidence of deep infection. Outpa tient follow up recommended. Per Dr Orozco's recommendation, prescribed 10 cipro/flagyl. #IDDM Blood sugars at goal here on lower dose lantus than patient was previously prescribed. #Chronic sCHF Patient had no respiratory complaints and showed no signs of decompensation here. Patient is discharging home. DISCHARGE MEDICATIONS: Discharge Medications New Medications Details ciprofloxacin 250 mg tablet Take 1 tablet by mouth 2 times daily for 10 days. Indications: Diabetic Foot Ulcer aka: CIPRO metroNIDAZOLE 500 MG tablet Take 1 tablet by mouth 3 times daily for 10 days. Indications: Diabetic Foot Ulcer aka: FLAGYL Changed Medications Details insulin glargine 100 units/mL injection (vial) Inject 10 Units under the skin 2 times daily. What changed: how much to take aka: LANTUS Unchanged Medications Details ANTI-DIARRHEAL 2 MG tablet Generic drug: loperamide Take 2 mg by mouth 4 times daily as needed for Diarrhea. apixaban 5 mg tablet Take 2.5 mg by mouth 2 times daily. aka: ELIQUIS calcium acetate 667 mg tablet Take 1,334 mg by mouth 3 times daily (with meals). aka: PHOSLO cholecalciferol 125 mcg (5,000 units) capsule Take 5,000 Units by mouth Daily. aka: VITAMIN D-3 cinacalcet 30 mg tablet Take 30 mg by mouth Three times a week. aka: SENSIPAR epoetin padilla 10,000 units/mL injection Inject 1,000 Units into the vein Three times a week. aka: EPOGEN, PROCRIT furosemide 80 mg tablet Take 80 mg by mouth Daily. aka: LASIX HECTOROL 2 mcg/mL injection Generic drug: doxercalciferol Inject 4.5 mcg into the vein Three times a week. metoprolol succinate 50 mg 24 hr tablet Take 50 mg by mouth Daily. aka: TOPROL-XL omeprazole 20 mg capsule Take 1 capsule by mouth Daily. aka: priLOSEC OLEG-TEQUILA RX 1 MG Tabs tablet Take 1 mg by mouth Daily. rosuvastatin 20 mg tablet Take 20 mg by mouth Daily. aka: CRESTOR sucroferric oxyhydroxide 500 mg chewable tablet Take 1 tablet by mouth 4 times daily (before meals and nightly). aka: VELPHORO Most recent weight: Input and output for last 24hrs: Wt Readings from Last 1 Encounters: 01/01/20 117 kg (257 lb 15 oz) I/O last 24 Hours: In: 403 [P.O.:387; I.V.:16] Out: 1995 Vitals Ranges: Temp: [35.7 C (96.3 F)-36.2 C (97.2 F)] 35.9 C (96.6 F) Pulse: [77-124] 77 Resp: [16-20] 20 BP: (103-135)/(70-87) 126/76 Vitals: Temp: 35.9 C (96.6 F) BP: 126/76 Pulse: 77 Resp: 20 SpO2: 98 % SpO2 98 % on room air PHYSICAL EXAM: Patient seen and examined by me on 01/01/20 Gen: WDWN, nad CV: regular rate and rhythm Pulm: LCAB Abdominal: nontender PROCEDURES AND CONSULTS: Procedures: beside debridement of foot ulcer Consults: Nephrology, Podiatry PENDING RESULTS: None DISPOSITION AND DISCHARGE INSTRUCTIONS: Follow-up Information CARINE Mast. Specialty: Nurse Practitioner Why: Hospital follow up Contact information: [id number] [place] [address] Condition: Stable Diet: CC Less than 30 minutes were spent on discharge and coordination of post-hospital care. Electronically signed by: Halley Calvo MD, 01/01/2020 11:08 AM [facility] documented in this enco unter Discharge Instructions Instructions Halley Calvo MD - 01/01/2020Mark, You were hospitalized with a possible infection. We prescribed antibiotics for your foot wh ich you'll need to take for the next 10 days. Halley Calvo MD documented in this encounter Medications at Time [...] + + +---------+ + + | B Tsheatf-D-Vwngz | Take 1 mg by mouth | 30 each | 11 | 06/26/20 | | | Acid (OLEG-TEQUILA RX) | Daily. | | | 13 | | | 1 MG TABS | | | | | | + + + +---------+ + + | calcium acetate | Take 1,334 mg by | | 0 | | | | (CALCIUM ACETATE) | mouth 4 times daily | | | | | | 667 mg tablet | (before meals and | | | | | | | nightly). | | | | | [...] tablet | Daily. | | | | | + + + +---------+ + + | insulin glargine | Inject 10 Units | 10 mL | 0 | //20 | | | (LANTUS) 100 | under the skin 2 | | | 20 | | | units/mL injection | times daily. [...] +---------+ + + | metoprolol | Take 50 mg by mouth | | 0 | | | | succinate | Daily. | | | | | | (TOPROL-XL) 50 mg 24 | | | | | | | hr tablet | | | | | [...] ciprofloxacin | Take 1 tablet by | 20 | 0 | 01/01/20 | | | (CIPRO) 250 mg | mouth 2 times daily | tablet | | 20 | 0 | | tabletIndications: | for 10 days. | | | | | | Diabetic Foot Ulcer | Indications: | | | | | | | Diabetic Foot Ulcer | | | | | + + [...] + + + +---------+ + + | metroNIDAZOLE | Take 1 tablet by | 30 | 0 | 01/01/20 | | | (FLAGYL) 500 MG | mouth 3 times daily | tablet | | 20 | 0 | | tabletIndications: | for 10 days. | | | | | | Diabetic Foot Ulcer | Indications: | | | | | | | Diabetic Foot Ulcer | | | | | + + + +---------+ + + documented as of this encounter Progress Notes Mona Chavez, RN - 01/01/2020 12:29 PM PDTAVS given and explained to Herman, acknowledged understanding and all questions answered. Explained RX's to be picked up at Pharmacy in [place], pt acknowledged understanding. Son picking up at main entrance. Taking patient and hi s belongings down in wheelchair to discharge home. Halley Gregorio MD - 12/31/2019 12:22 PM PDTFormatting of this no te might be different from the original. [place] [facility] PROGRESS NOTE Patient: Celso Sutton Case : 1960: Age: 59 y.o. MedRec: [id number] Admission date: 12/29/2019 Hospital day # : 2 Physician author: Halley Calvo MD Today: 12/31/2019 Assessment and Hospital Course Active Hospital Problems Diagnosis Fever Atrial fibrillation with RVR Resolved Hospital Problems No resolved problems to display. 59 yo M with history of ESRD on HD, a flutter, PAD, IDDM, chronic R foot ulcer who presente d with fever to OSH. 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 No fever noted here. Initial concern for viral upper respiratory tract infection but patient asymptomatic on yasemin m air. Chronic R foot ulcer does not appear infected (evaluated by Dr Schuster here). Hold further antibiotics for now and monitor. #Atrial fibrillation with RVR Heart rate better controlled now. Continue home metoprolol. #ESRD HD today. Management per Nephrology. #R foot ulcer Evaluated by Dr Schuster with bedside debridement. No clear evidence of deep infection. Outpa tient follow up recommended. #IDDM Blood sugars at goal. CCM. #Chronic sCHF Patient has no respiratory complaints and is breathing comfortably on room air currently. FEN: renal Ppx: apixaban Disposition: antcipate home tomorrow Subjective CC: no complaints Patient reports he feels at his baseline. Denies acute complaints. ROS was performed and was negative except as noted above. Exam Gen: WDWN, chronically ill appearing HEENT: MMM neck supple CV: IIRR no m/r/g Pulm: LCAB, no wheezing or rales Abdominal: soft, nontender, nondistended, normal bowel tones Extremities: well perfused, no edema Skin: warm, dry, no rashes Neuro: alert, CN intact, no focal deficits Psych: normal mood and affect Allergies: Allergies Allergen Reactions Amlodipine Besylate Unknown Fenofibrate Acidosis Metformin Diarrhea Current Medications: Current Facility-Administered Medications Medication Dose Route Frequency Provider Last Rate Last Dose acetaminophen (TYLENOL) tablet 650 mg 650 mg Oral Q6H PRN Uche Orozco DO 650 mg at 12/30/19 2259 albumin 25% IVPB 12.5 g 12.5 g Intravenous PRN Uche Orozco DO [START ON 01/01/2020] apixaban (ELIQUIS) tablet 2.5 mg 2.5 mg Oral BID Uche delgado DO bisacodyl (DULCOLAX) suppository 10 mg 10 mg Rectal Daily PRN Kori Ross MD cholecalciferol (VITAMIN D-3) tablet 5,000 Units 5,000 Units Oral Daily Kori Ross MD 5,000 Units at 12/31/19 0910 cinacalcet (SENSIPAR) tablet 30 mg 30 mg Oral Once per day on Sun Kori youngblood MD 30 mg at 12/31/19 0910 dextrose 50% injection 12.5-25 g 12.5-25 g Intravenous PRN Kori Ross MD And dextrose 10% (D10W) infusion Intravenous Continuous PRN Kori Ross MD docusate sodium (COLACE) capsule 100 mg 100 mg Oral BID PRN Kori Ross MD heparin (dialysis) 1,000 units/mL injection 500 Units 500 Units Intravenous Dialysis - once Uche Orozco DO heparin in half-normal saline 100 units/mL infusion 400 Units/hr Intravenous Dialysis - Continuous Uche Orozco DO HYDROcodone-acetaminophen (NORCO) 5-325 mg per tablet 1 tablet 1 tablet Oral Q8H PRN Jean Orozco DO insulin glargine (LANTUS SOLOSTAR) injection (pen) 10 Units 10 Units Subcutaneous 2 ti mes per day Halley Calvo MD 7 Units at 12/30/19 2300 insulin lispro (humaLOG KWIKPEN) injection (pen) 0-6 Units 0-6 Units Subcutaneous 4x D aily WC and HS Kori Ross MD lidocaine (PF) 1% injection 5 mL 5 mL Infiltration Once Uche Orozco DO loperamide (IMODIUM) capsule 2 mg 2 mg Oral Q3H PRN Nathan Cano MD 2 mg at 12/07 01/25 2259 mannitol 20% IVPB 12.5 g 12.5 g Intravenous PRN Uche Orozco DO melatonin tablet 3 mg 3 mg Oral Nightly PRN Kori Ross MD metoprolol succinate (TOPROL-XL) ER tablet 50 mg 50 mg Oral Daily Kori Ross MD 50 mg at 12/30/19 1050 metoprolol tartrate (LOPRESSOR) injection 2.5 mg 2.5 mg Intravenous Q15 Min PRN Perlita Ross MD ondansetron (ZOFRAN) injection 4 mg 4 mg Intravenous Q6H PRN Kori Ross MD pantoprazole (PROTONIX) DR tablet 40 mg 40 mg Oral QAM AC Kori Ross MD 40 mg at 12/31/19 0737 polyethylene glycol (MIRALAX) powder 17 g 17 g Oral Daily PRN Kori Ross MD rosuvastatin (CRESTOR) tablet 20 mg 20 mg Oral Daily Kori Ross MD 20 mg at 12/07 02/24 0914 senna (SENOKOT) tablet 8.6 mg 8.6 mg Oral BID PRN Kori Ross MD sodium chloride 0.9% (NS) infusion Intravenous Q30 Min PRN Uche Orozco DO zolpidem (AMBIEN) tablet 5 mg 5 mg Oral Nightly PRN Uche Orozco DO Current Infusions: dextrose 10% Heparin Infusion Objective Data Point of care glucose Recent Labs Lab 12/31/19 1134 12/30/19 2108 12/30/19 1606 12/30/19 1048 POCGLU 87 144* 115* 112* Labs last 24 hours Recent Results (from the past 24 hour(s)) POC Glucose Collection Time: 12/30/19 4:06 PM Result Value Ref Range Glucose, POC 115 (H) 70 - 109 mg/dL POC Glucose Collection Time: 12/30/19 9:08 PM Result Value Ref Range Glucose, POC 144 (H) 70 - 109 mg/dL Renal Function Panel Collection Time: 12/31/19 4:05 AM Result Value Ref Range Na 133 (L) 136 - 145 mmol/L K 3.8 3.4 - 5.1 mmol/L Cl 93 (L) 98 - 107 mmol/L CO2 29 20 - 31 mmol/L Anion Gap 11 3 - 16 mmol/L Glucose 137 (H) 60 - 106 mg/dL BUN 44 (H) 9 - 23 mg/dL Creatinine 7.08 (H) 0.70 - 1.30 mg/dL eGFR if not 8 (L) >=60 mL/min/1.73m2 Calcium 8.6 (L) 8.7 - 10.4 mg/dL Albumin 3.5 3.2 - 4.8 g/dL Phosphorus 5.8 (H) 2.4 - 5.1 mg/dL BUN/Creatinine Ratio 6.2 CBC with Differential Collection Time: 12/31/19 4:05 AM Result Value Ref Range WBC 6.9 4.0 - 11.0 K/uL RBC 3.78 (L) 4.30 - 5.70 M/uL Hemoglobin 11.4 (L) 13.5 - 18.0 g/dL Hematocrit 34.8 (L) 40.0 - 51.0 % MCV 92.1 83.0 - 101.0 fL MCH 30.2 28.0 - 35.0 pg MCHC 32.8 32.0 - 36.0 g/dL RDW-CV 15.6 (H) <15.0 % RDW-SD 52.6 (H) 35.1 - 46.3 fL Platelet Count 164 140 - 440 K/uL MPV 9.6 6.5 - 12.4 fL % Neutrophils 70.2 45.0 - 82.0 % % Lymphocytes 18.4 (L) 20.0 - 45.0 % % Monocytes 7.9 4.0 - 12.0 % % Eosinophils 2.2 0.0 - 5.0 % % Basophils 1.0 0.0 - 1.0 % % Immature Granulocytes 0.3 0.0 - 0.4 % Absolute Neutrophils 4.87 1.80 - 8.50 K/uL Absolute Lymphocytes 1.28 0.60 - 3.20 K/uL Absolute Monocytes 0.55 0.00 - 1.00 K/uL Absolute Eosinophils 0.15 0.00 - 0.40 K/uL Absolute Basophils 0.07 0.00 - 0.10 K/uL Absolute Immature Granulocytes 0.02 0.00 - 0.03 K/uL % nRBC 0 0 - 2 per 100 WBCs Absolute nRBC 0.00 0.00 - 0.01 K/uL Vancomycin Level Collection Time: 12/31/19 4:05 AM Result Value Ref Range Date of Last Dose Time of Last Dose Vancomycin Random 17.6 5.0 - 20.0 ug/mL PTT Collection Time: 12/31/19 4:05 AM Result Value Ref Range aPTT 34 22 - 36 seconds POC Glucose Collection Time: 12/31/19 11:34 AM Result Value Ref Range Glucose, POC 87 70 - 109 mg/dL Micro results (more choices using dot micro) Microbiology Results (72 hrs) Procedure Component Value Units Date/Time Clostridioides difficle NAAT reflex to Tox Ag [[id number]] Collected: 12/30/1952 Order Status: Completed Lab Status: Final result Updated: 12/30/19326 Specimen: Stool Narrative: The following orders were created for panel order Clostridioides difficle NAAT reflex to T ox Ag. Procedure Abnormality Status --------- ------ Clostridioides difficile...[[id number]] Final result Please view results for these tests on the individual orders. Clostridioides difficile NAAT Reflex [[id number]] Collected: 12/30/1952 Order Status: Completed Lab Status: Final result Updated: 12/30/19326 Specimen: Stool C. difficile, Interp Negative Comment: No Toxigenic C. difficile detected. Consider other causes of Diarrhea. Repeat te sting should not be performed within 7 days. C. difficile, NAAT Negative Fecal leukocytes [[id number]] (Normal) Collected: 12/30/19 0053 Order Status: Completed Lab Status: Final result Updated: 12/30/19 0340 Specimen: Stool Lactoferrin, Qual Negative Culture, MRSA [[id number]] (Normal) Collected: 12/30/19 0034 Order Status: Completed Lab Status: Final result Updated: 12/31/19 0719 Specimen: Tissue from Nares Culture Negative for MRSA by chromogenic agar method. Culture, Blood [[id number]] Collected: 12/30/19 0006 Order Status: Completed Lab Status: Preliminary result Updated: 12/30/19 1221 Specimen: Peripheral Blood Culture No growth: Monitored continually by instrument for 5 days Culture, Blood [[id number]] Collected: 12/30/19 0006 Order Status: Completed Lab Status: Preliminary result Updated: 12/30/19 1221 Specimen: Peripheral Blood Culture No growth: Monitored continually by instrument for 5 days Respiratory pathogen panel, NAAT [[id number]] (Normal) Collected: 12/30/19 0000 Order Status: Completed Lab Status: Final result Updated: 12/30/19 0336 Specimen: Body Fluid from Nasopharynx Parainfluenza 1 Not Detected Adenovirus Not Detected Human Metapneumovirus Not Detected Rhinovirus/Enterovirus Not Detected Parainfluenza 3 Not Detected RSV RNA, NAAT [[id number]] (Normal) Collected: 12/29/19 2359 Order Status: Completed Lab Status: Final result Updated: 12/30/19 0138 Specimen: Body Fluid from Nares, Left RSV Negative Radiology results (more choices using dot risresults) No results found. Vitals Ranges: Temp: [35.6 C (96.1 F)-36.5 C (97.7 F)] 35.7 C (96.3 F) Pulse: [85-118] 102 Resp: [16-18] 16 BP: (108-132)/(61-89) 123/70 Vitals: Temp: 35.7 C (96.3 F) BP: 123/70 Pulse: 102 Resp: 16 SpO2: 98 % SpO2 98 % on room air at flow rate L/min Halley M. Umesh, MD 12/31/2019 12:22 PM [facility] Sonia Alvarez Phar mD - 12/31/2019 11:41 AM PDT PHARMACY SERVICES: ADMISSION MEDICATION REVIEW Celso Caro is a 59 y.o. male admitted on 12/29/2019. Patient is somewhat a reliable historian. Location of Patient when reviewed: MEDICAL FLOOR Patient s prior to admit medication and over the counter (OTC) medications/herbal supplem ents list obtained from: X Verbal interview with patient who was ABLE TO RECALL SOME name, strength, and directions X Doctor's office: [facility] X Pharmacy list names: [facility] ([facility]) X [employer] insurance reported information X Outside Information Other sources: Vaccines up to date? 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 Patient was unsure. 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 Provider apixaban (ELIQUIS) 5 mg tablet Take 2.5 mg by mouth 2 times daily. Taking Historical Prov MD Arian bustamante Vlgusfe-O-Nnaov Acid (OLEG-TEQUILA RX) 1 MG TABS Take 1 mg by mouth Daily. Taking 30 each C helajacqueline Osei Fackenthall [employer] calcium acetate (CALCIUM ACETATE) 667 mg tablet Take 1,334 mg by mouth 3 times daily (with meals). Historical Provider, Cholecalciferol (VITAMIN D3) 5000 UNITS CAPS Take 5,000 Units by mouth Daily. Taking Hist orical Provider, cinacalcet (SENSIPAR) 30 mg tablet Take 30 mg by mouth Three times a week. Taking Histori reinier Provider, doxercalciferol (HECTOROL) 2 mcg/mL injection Inject 4.5 mcg into the vein Three times a w morongo. Taking Historical ProviderMD epoetin padilla (EPOGEN, PROCRIT) 10,000 units/mL injection Inject 1,000 Units into the vein Three times a week. Historical Provider, furosemide (LASIX) 80 mg tablet Take 80 mg by mouth Daily. Taking Historical ProviderMD insulin glargine (LANTUS) 100 units/mL injection (vial) Inject 25 Units under the skin 2 t imes daily. Taking Differently Cristina Quinones PA-C loperamide (ANTI-DIARRHEAL) 2 MG tablet Take 2 mg by mouth 4 times daily as needed for Kassandra rrhea. Taking Historical ProviderMD metoprolol succinate (TOPROL-XL) 50 mg 24 hr tablet Take 50 mg by mouth Daily. Taking His torical Provider, omeprazole (PRILOSEC) 20 mg capsule Take 1 capsule by mouth Daily. Taking 30 capsule Kim Orozco DO rosuvastatin (CRESTOR) 20 mg tablet Take 20 mg by mouth Daily. Taking Historical Provider MD sucroferric oxyhydroxide (VELPHORO) 500 mg chewable tablet Take 1 tablet by mouth 4 times daily (before meals and nightly). Taking Uche Orozco, Medication review performed and electronically signed by Nelly Walsh, Computational Mathematician 12/31/2019 11:20 AM Reviewed by Sonia Lew PharmD 12/31/2019 11:38 AM Sonia Alvarez PharmD - 12/30/2019 6:35 PM PDTFormatting of this note might be different from the orig inal. RENAL DOSE ADJUSTMENT PER PHARMACY PROTOCOL: Subjective/Objective: Celso Caro is a 59 y.o. year old male admitted on 12/29/2019 11:00 PM and is receiving Meropenem. BP 108/70 | Pulse 99 | Temp 36.5 C (97.7 F) (Oral) | Resp 18 | Ht 1.854 m (6' 1") | Wt 117.8 kg (259 lb 11.2 oz) | SpO2 100% | BMI 34.26 kg/m Intake/Output Summary (Last 24 hours) at 12/30/2019 1833 Last data filed at 12/30/2019 1221 Gross per 24 hour Intake 490 ml Output Net 490 ml Recent Labs Lab 12/30/19 0526 12/29/19 2356 CREA 5.69* 5.27* Estimated Creatinine Clearance: 19 mL/min (A) (based on SCr of 5.69 mg/dL (H)). Date Day of therapy Creatinine CrCl (mL/min) Dose-current Dose-new 12/30/19 1 HD 19 500 mg q12hr 500 mg q24hr Assessment/Plan: For patients on HD mL/min, decrease dose of meropenem as above. Pharmacy will continue to follow and adjust dose as appropriate to clinical condition and c reatinine clearance changes RENAL DOSE ADJUSTMENT PROTOCOL Electronically signed by: Sonia Lew PharmD 12/30/2019 6:33 PM Selena Nicholson RN - 12/30/2019 1:35 PM PDTReceived from ICU, awake and alert, telemetry inplace, hr irregular, lungs clear, room air, denies pain, fistula inplace omaira, left arm at risk sig n on door, sl inplace rue x2, drsg on planter surface of left foor, trace edema to ble, ble with ector tough skin, ppp 1 plus. Po fluids given, oriented to room call vaughn at bedside. Electronically signed by: Selena Ann RN 12/30/2019 1:37 PM documented in this encounter Plan of Treatment Not on filedocumented as of this encounter Procedures + +--------+ + + + | Procedure Name | Priori | Date/Time | Associated Diagnosis | Comments | | | ty | | | | + +--------+ + + + | POC GLUCOSE | Routin | 01/01/2020 | | Results for this | | | e | 6:47 AM | | procedure are in the | | | | PDT | | results section. | + +--------+ + + + | PTT | Routin | 01/01/2020 | | Results for this | | | e | 4:48 AM | | procedure are in the | | | | PDT | | results section. | + +--------+ + + + | CBC WITH | Routin | 01/01/2020 | | Results for this | | DIFFERENTIAL | e | 4:48 AM | | procedure are in the | | | | PDT | | results section. | + +--------+ + + + | RENAL FUNCTION PANEL | Routin | 01/01/2020 | | Results for this | | | e | 4:48 AM | | procedure are in the | | | | PDT | | results section. | + +--------+ + + + | POC GLUCOSE | Routin | 12/31/2019 | | Results for this | | | e | 8:10 PM | | procedure are in the | | | | PDT | | results section. | + +--------+ + + + | POC GLUCOSE | Routin | 12/31/2019 | | Results for this | | | e | 4:43 PM | | procedure are in the | | | | PDT | | results section. | + +--------+ + + + | ECG 12 LEAD | Routin | 12/31/2019 | | Results for this | | | e | 2:51 PM | | procedure are in the | | | | PDT | | results section. | + +--------+ + + + | POC GLUCOSE | Routin | 12/31/2019 | | Results for this | | | e | 11:34 AM | | procedure are in the | | | | PDT | | results section. | + +--------+ + + + | HEPATITIS B SURFACE | Routin | 12/31/2019 | | Results for this | | AG | e | 10:09 AM | | procedure are in the | | | | PDT | | results section. | + +--------+ + + + | VAS LOWER EXTREMITY | Routin | 12/31/2019 | | Results for this | | VENOUS RIGHT | e | 8:32 AM | | procedure are in the | | | | PDT | | results section. | + +--------+ + + + | PTT | Routin | 12/31/2019 | | Results for this | | | e | 4:05 AM | | procedure are in the | | | | PDT | | results section. | + +--------+ + + + | CBC WITH | Routin | 12/31/2019 | | Results for this | | DIFFERENTIAL | e | 4:05 AM | | procedure are in the | | | | PDT | | results section. | + +--------+ + + + | VANCOMYCIN LEVEL | Routin | 12/31/2019 | | Results for this | | | e | 4:05 AM | | procedure are in the | | | | PDT | | results section. | + +--------+ + + + | RENAL FUNCTION PANEL | Routin | 12/31/2019 | | Results for this | | | e | 4:05 AM | | procedure are in the | | | | PDT | | results section. | + +--------+ + + + | POC GLUCOSE | Routin | 12/30/2019 | | Results for this | | | e | 9:08 PM | | procedure are in the | | | | PDT | | results section. | + +--------+ + + + | POC GLUCOSE | Routin | 12/30/2019 | | Results for this | | | e | 4:06 PM | | procedure are in the | | | | PDT | | results section. | + +--------+ + + + | POC GLUCOSE | Routin | 12/30/2019 | | Results for this | | | e | 10:48 AM | | procedure are in the | | | | PDT | | results section. | + +--------+ + + + | SEDIMENTATION RATE | Add-On | 12/30/2019 | | Results for this | | | | 5:26 AM | | procedure are in the | | | | PDT | | results section. | + +--------+ + + + | CBC WITH | STAT | 12/30/2019 | | Results for this | | DIFFERENTIAL | | 5:26 AM | | procedure are in the | | | | PDT | | results section. | + +--------+ + + + | C-REACTIVE PROTEIN | Add-On | 12/30/2019 | | Results for this | | | | 5:26 AM | | procedure are in the | | | | PDT | | results section. | + +--------+ + + + | LIPASE | STAT | 12/30/2019 | | Results for this | | | | 5:26 AM | | procedure are in the | | | | PDT | | results section. | + +--------+ + + + | COMPREHENSIVE | STAT | 12/30/2019 | | Results for this | | METABOLIC PANEL | | 5:26 AM | | procedure are in the | | | | PDT | | results section. | + +--------+ + + + | CLOSTRIDIOIDES | Routin | 12/30/2019 | | Results for this | | DIFFICILE NAAT | e | 12:53 AM | | procedure are in the | | REFLEX | | PDT | | results section. | + +--------+ + + + | CLOSTRIDIOIDES | Routin | 12/30/2019 | | Results for this | | DIFFICILE NAAT | e | 12:53 AM | | procedure are in the | | REFLEX TO TOX AG | | PDT | | results section. | + +--------+ + + + | FECAL LEUKOCYTES | THUAN | 12/30/2019 | | Results for this | | | | 12:53 AM | | procedure are in the | | | | PDT | | results section. | + +--------+ + + + | CULTURE, MRSA | Routin | 12/30/2019 | | Results for this | | | e | 12:34 AM | | procedure are in the | | | | PDT | | results section. | + +--------+ + + + | OCCULT BLOOD STOOL, | Routin | 12/30/2019 | | Results for this | | OTHER THAN | e | 12:33 AM | | procedure are in the | | COLORECTAL NEOPLASM | | PDT | | results section. | | SCREENING | | | | | + +--------+ + + + | CULTURE, BLOOD | STAT | 12/30/2019 | | Results for this | | | | 12:06 AM | | procedure are in the | | | | PDT | | results section. | + +--------+ + + + | CULTURE, BLOOD | STAT | 12/30/2019 | | Results for this | | | | 12:06 AM | | procedure are in the | | | | PDT | | results section. | + +--------+ + + + | RESPIRATORY VIRUS | STAT | 12/30/2019 | | Results for this | | ANTIGENS PROFILE | | 12:00 AM | | procedure are in the | | | | PDT | | results section. | + +--------+ + + + | RSV RNA, NAAT | STAT | 12/29/2019 | | Results for this | | | | 11:59 PM | | procedure are in the | | | | PDT | | results section. | + +--------+ + + + | PROCALCITONIN, SERUM | STAT | 12/29/2019 | | Results for this | | | | 11:56 PM | | procedure are in the | | | | PDT | | results section. | + +--------+ + + + | CBC WITH | Routin | 12/29/2019 | | Results for this | | DIFFERENTIAL | e | 11:56 PM | | procedure are in the | | | | PDT | | results section. | + +--------+ + + + | C-REACTIVE PROTEIN | STAT | 12/29/2019 | | Results for this | | | | 11:56 PM | | procedure are in the | | | | PDT | | results section. | + +--------+ + + + | B TYPE NATRIURETIC | STAT | 12/29/2019 | | Results for this | | PEPTIDE | | 11:56 PM | | procedure are in the | | | | PDT | | results section. | + +--------+ + + + | MAGNESIUM | Routin | 12/29/2019 | | Results for this | | | e | 11:56 PM | | procedure are in the | | | | PDT | | results section. | + +--------+ + + + | COMPREHENSIVE | Routin | 12/29/2019 | | Results for this | | METABOLIC PANEL | e | 11:56 PM | | procedure are in the | | | | PDT | | results section. | + +--------+ + + + documented in this encounter Results POC Glucose (01/01/2020 6:47 AM PDT) + +-------+ + + + [...] St | [place] | [phone] | | [facility] | | [address] | | | - LABORATORY | | | | + + + + + CBC with Differential (01/01/2020 4:48 AM PDT) + + + + + + | Component | Value | Ref Range | Performed | Pathologist | | | | | At | Signature | + + + + + + | WBC | 5.8 | 4.0 - 11.0 K/uL | [facility] | | | [facility] - | | | | | | LABORATORY | | + + + + + + | RBC | 3.88 (L) | 4.30 - 5.70 | [facility] | | | | | M/uL | [facility] | | | | | | [facility] | | | | | | C[facility] - | | | | | | LABORATORY | | + + + + + + | Hemoglobin | 11.8 (L) | 13.5 - 18.0 | [facility] | | | | | g/dL | [facility] | | | | | | [facility] | | | | | | CENTER - | | | | | | LABORATORY | | + + + + + + | Hematocrit | 35.9 (L) | 40.0 - 51.0 % | [facility] | | | | | [facility] | | | | | | [facility] | | | | | | [facility] - | | | | | | LABORATORY | | + + + + + + | MCV | 92.5 | 83.0 - 101.0 fL | [facility] [...] + + + + | MCHC | 32.9 | 32.0 - 36.0 | [facility] | | | | | g/dL | [facility] | | | | | | [facility] | | [facility] | | | CENTER - | | | | | | LABORATORY | | + + + + + + | RDW-CV | 15.6 (H) | <15.0 % | [facility] | | | | | [facility] | | | [facility] | [facility] | | | | | | [facility] - | | | | | | LABORATORY | | + + + + + + | RDW-SD | 53.1 (H) | 35.1 - 46.3 fL | [facility] | | | | | [facility] | [facility] | | | [facility] | | | | | | [facility] - | | | | | | LABORATORY | | + + + + + + | Platelet | 179 | 140 - 440 K/uL | [facility] [...] + + + + | % | 59.9 | 45.0 - 82.0 % | [facility] | | | Neutrophils | | | [facility] | | | | | | [facility]ICAL | | | | | | CENTER - | | | | | | LABORATORY | | + + + + + + | % | 25.3 | 20.0 - 45.0 % | [facility] | | | Lymphocytes | | | [facility] | | | | | | [facility] | | | | | | CENTER - | | | | | | LABORATORY | | + + + + + + | % Monocytes | 10.7 | 4.0 - 12.0 % | [facility] | | | | | | [facility] | | | | | | [facility] | | | | | | CENTER - | | | | | | LABORATORY | | + + + + + + | % | 2.6 | 0.0 - 5.0 % | [facility] [...] | | | Granulocyte | | | [facility] | | | s | | | MEDICAL | | | | | | CENTER - | | | | | | LABORATORY | | + + + + + + | Absolute | 3.47 | 1.80 - 8.50 | [facility] | | | Neutrophils | | K/uL | [facility] | | | | | | MEDICAL | | | | | | CENTER - | | | | | | LABORATORY | | + + + + + + | Absolute | 1.47 | 0.60 - 3.20 | [facility] | [...] + | [facility] | [address] | [place] | [phone] | | [facility] | | [address] | | | - LABORATORY | | | | + + + + + Renal Function Panel (01/01/2020 4:48 AM PDT) + + + + + + | Component | Value | Ref Range | Performed | Pathologist | | | | | At | Signature | + + + + + + | Na | 137 | 136 - 145 | [facility] | | | | | mmol/L | [facility] | | | | | | MEDICAL | | | | | | CENTER - | | | | | | LABORATORY | | + + + + + + | K | 4.4 | 3.4 - 5.1 | [facility] | [...] + + + + | CO2 | 29 | 20 - 31 mmol/L | [facility] [...] + + + + | Glucose | 111 (H) | 60 - 106 mg/dL | [facility] | | | | | [facility] | | | | | [facility] | | | | | | CENTER - | | | | | | LABORATORY | | + + + + + + | BUN | 41 (H) | 9 - 23 mg/dL | [facility] | | | | | [facility] | | | | | | [facility] | | | | | | CENTER - | | | | | | LABORATORY | | + + + + + + | Creatinine | 6.45 (H) | 0.70 - 1.30 | [facility] | | | | | mg/dL | [facility] | | | | | | [facility] | | | | | | CENTER - | | | | | | LABORATORY | | + + + + + + | eGFR if not | 9 (L)Comment: GLOMERULAR | >=60 | [facility] | | | | FILTRATION | mL/min/1.73m2 | [facility] | | | [facility] | RATE,ESTIMATED | | MEDICAL | | | | mL/min/1.96k3Jawo than | | CENTER - | | [...] + + + + | Calcium | 8.8 | 8.7 - 10.4 | [facility] | | | | | mg/dL | [facility] | | | | | | MEDICAL | | | | | | CENTER - | | | | | | LABORATORY | | + + + + + + | Albumin | 3.8 | 3.2 - 4.8 g/dL | [facility] | | | | | [facility] | | | | | | [facility]ICAL | | | | | | CENTER - | | | | | | LABORATORY | | + + + + + + | Phosphorus | 4.6 | 2.4 - 5.1 mg/dL | [facility] | | | | | | [facility] | | | | | | MEDICAL | | | | | | CENTER - | | | | | | LABORATORY | | + + + + + + | BUN/Creatin | 6.4 | | [facility] | | | ine [...] + | [facility] | [address] | [place] | [phone] | | [facility] | | [address] | | | - LABORATORY | | | | + + + + + PTT (01/01/2020 4:48 AM PDT) + +-------+ + + + | Component | Value | Ref Range | Performed | Pathologist | | | | | At | Signature | + +-------+ + + + | aPTT | 34 | 22 - 36 seconds | [facility] [...] St | [place] | [phone] | | [facility] | | [address] | | | - LABORATORY | | | | + + + + + POC Glucose (12/31/2019 8:10 PM PDT) + +---------+ + + + [...] ST. | [address] | [place], [place] | [phone] | | [facility] | | [address] | | | - LABORATORY | | | | + + + + + POC Glucose (12/31/2019 4:43 PM PDT) + +---------+ + + + [...] + | [facility] | [address] | [place] | [phone] | | [facility] | | [address] | | | - LABORATORY | | | | + + + + + ECG 12 lead (12/31/2019 2:51 PM PDT) + + + + + + | Component | Value | Ref Range | Performed | Pathologist | | | | | At | Signature | + + + + + + | VENTRICULAR | 105 | BPM | [facility] | | | RATE EKG | | | | | + + + + + + | QRS | 96 | ms | [facility] | | | DURATION | | | | | + + + + + + | Q-T | 364 | ms | [facility] | | | INTERVAL | | | | | + + + + + + | Q-T | 481 | ms | [facility] | | | INTERVAL | | | | | | (CORRECTED) | | | | | + + + + + + | QRS AXIS | 27 | degrees | [facility] | | + + + + + + | T AXIS | 74 | degrees | [facility] | | + + + + + + | INTERPRETAT | Atrial fibrillation with | | [facility] | | | ION TEXT | rapid ventricular | | | | | | response with premature | | | | | | ventricular or | | | | | | aberrantly conducted | | | | | | complexNonspecific T | | | | | | wave abnormality leads I | | | | | | and aVLNonspecific ST | | | | | | abnormality Lateral | | | | | | leadsAbnormal ECGWhen | | | | | | compared with ECG of | | | | | | 23-SEP-2019 | | | | | | 05:56,Nonspecific T wave | | | | | | abnormality no longer | | | | | | evident in V4-6T wave | | | | | | flattening has replaced | | | | | | T wave inversion in lead | | | | | | IConfirmed by JEAN-PAUL | | | | | | ELEANOR YOUNG ([id number]) on | | | | | | 01/01/2020 6:04:13 AM | | | | + + [...] | + +---------+ + + POC Glucose (12/31/2019 11:34 AM PDT) + +-------+ + + + | Component | Value | Ref Range | Performed | Pathologist | | | | | At | Signature | + +-------+ + + + | Glucose, | 87 | 70 - 109 mg/dL | [facility] | | | POC | | | [facility] | | | | [...] St | [place] | [phone] | | [facility] | | [address] | | | - LABORATORY | | | | + + + + + Hepatitis B Surface Ag (12/31/2019 10:09 AM PDT) + + + + + [...] + + | Performed at: 01 - [facility] [place] [address], | REFERENCE LAB | | [place], [place] [id number] Rv Body Mechanic: Darin Odom MD, Phone: | [place] | | [phone] | | + + + + + + + + | Performing | Address | City/State/Zipcode | Phone Number | | Organization | | | | + + + + + | REFERENCE LAB | [address] [facility] | [place], [place] | [phone] | | [place] | [facility] | [address] | | + + + + + VAS Lower Extremity Venous Right (12/31/2019 8:32 AM PDT) + + | Specimen | + + | | + + + + + | Impressions | Performed At | + + + | 1. NO EVIDENCE OF DVT IN THE RIGHT LOWER EXTREMITY. | [facility] | | Dictated and Signed by: Chacorta Schulz MD Electronically signed: | | | 12/31/2019 1:09 PM | | + + + + + + | Narrative | Performed At | + + + | RIGHT LOWER EXTREMITY DUPLEX VENOUS ULTRASOUND 12/31/2019 8:01 AM | [facility] | | CLINICAL HISTORY: RLE swelling, r/o DVT COMPARISON: None | | | FINDINGS: Grayscale, color Doppler and duplex Doppler interrogation of | | | the right lower extremity deep venous system was performed. The | | | right common femoral, superficial femoral and popliteal veins are | | | patent, with normal phasicity, compressibility and augmentation. | | | The central greater saphenous and profunda femoral veins likewise | | | are patent and unremarkable, along with the posterior tibial and | | | peroneal veins. | | + + + + + | Procedure Note | + + | Kana, Rad Results In - 12/31/2019 1:12 PM PDT RIGHT LOWER EXTREMITY DUPLEX VENOUS | | ULTRASOUND 12/31/2019 8:01 AMCLINICAL HISTORY: RLE swelling, r/o DVTCOMPARISON: | | NoneFINDINGS: Grayscale, color Doppler and duplex Doppler interrogation of the | | rightlower extremity deep venous system was performed. The right common | | femoral,superficial femoral and popliteal veins are patent, with normal | | phasicity,compressibility and augmentation. The central greater saphenous and | | profundafemoral veins likewise are patent and unremarkable, along with the | | posteriortibial and peroneal veins. IMPRESSION: 1. NO EVIDENCE OF DVT IN THE RIGHT | | LOWER EXTREMITY.Dictated and Signed by: Chacorta Schulz MD Electronically signed: | | 12/31/2019 1:09 PM | |femoral veins likewise are patent and unremarkable, along with the posterior | |tibial and peroneal veins. | | | |IMPRESSION: | | | |1. NO EVIDENCE OF DVT IN THE RIGHT LOWER EXTREMITY. | | | |Dictated and Signed by: Chacorta Schulz MD | | Electronically signed: 12/31/2019 1:09 PM | + + + +---------+ + + | Performing | Address | City/State/Zipcode | Phone Number | | Organization | | | | + +---------+ + + | [facility] | | | | + +---------+ + + Vancomycin Level (12/31/2019 4:05 AM PDT) + +-------+ + + + [...] +-------+ + + + | Vancomycin | 17.6 | 5.0 - 20.0 | [facility] | | | Random | | ug/mL | [facility] | | | | [...] St | [place] | [phone] | | [facility] | | [address] | | | - LABORATORY | | | | + + + + + CBC with Differential (12/31/2019 4:05 AM PDT) + + + + + [...] + + + + | RBC | 3.78 (L) | 4.30 - 5.70 | [facility] | | | | | M/uL | [facility] | | | | | | MEDICAL | | | | | | CENTER - | | | | | | LABORATORY | | + + + + + + | Hemoglobin | 11.4 (L) | 13.5 - 18.0 | [facility] | | | | | g/dL | [facility] | | | | | | MEDICAL | | | | | | CENTER - | | | | | | LABORATORY | | + + + + + + | Hematocrit | 34.8 (L) | 40.0 - 51.0 % | [facility] | | | | | | [facility] | | | | | | MEDICAL | | | | | | CENTER - | | | | | | LABORATORY | | + + + + + + | MCV | 92.1 | 83.0 - 101.0 fL | [facility] [...] + + + + | MCHC | 32.8 | 32.0 - 36.0 | [facility] | | | | | g/dL | [facility] | | | | | | MEDICAL | | | | | | CENTER - | | | | | | LABORATORY | | + + + + + + | RDW-CV | 15.6 (H) | <15.0 % | [facility] | | | | | | [facility] | | | | | | [facility]ICAL | | | | | | CENTER - | | | | | | LABORATORY | | + + + + + + | RDW-SD | 52.6 (H) | 35.1 - 46.3 fL | [facility] | | | | | [facility] | | [facility] | | | [facility] | | | | | | CENTER - | | | | | | LABORATORY | | + + + + + + | Platelet | 164 | 140 - 440 K/uL | [facility] | | | Count | | | [facility] | | | | | | MEDICAL | | | | | | CENTER - | | | | | | LABORATORY | | + + + + + + | MPV | 9.6 | 6.5 - 12.4 fL | [facility] | | | | | | [facility] | | | | | | MEDICAL | | | | | | CENTER - | | | | | | LABORATORY | | + + + + + + | % | 70.2 | 45.0 - 82.0 % | [facility] | | | Neutrophils | | | [facility] | | | | | | MEDICAL | | | | | | CENTER - | | | | | | LABORATORY | | + + + + + + | % | 18.4 (L) | 20.0 - 45.0 % | [facility] | | | Lymphocytes | | | [facility] | | | | | | MEDICAL | | | | | | CENTER - | | | | | | LABORATORY | | + + + + + + | % Monocytes | 7.9 | 4.0 - 12.0 % | [facility] | | | | | | [facility] | | | | | | MEDICAL | | | | | | CENTER - | | | | | | LABORATORY | | + + + + + + | % | 2.2 | 0.0 - 5.0 % | [facility] [...] + + + + | Absolute | 4.87 | 1.80 - 8.50 | [facility] | | | Neutrophils | | K/uL | [facility] | | | | | | MEDICAL | | | | | | CENTER - | | | | | | LABORATORY | | + + + + + + | Absolute | 1.28 | 0.60 - 3.20 | [facility] | | | Lymphocytes | | K/uL | [facility] | | | | | | MEDICAL | | | | | | CENTER - | | | | | | LABORATORY | | + + + + + + | Absolute | 0.55 | 0.00 - 1.00 | [facility] | [...] St | [place] | [phone] | | [facility] | | [address] | | | - LABORATORY | | | | + + + + + Renal Function Panel (12/31/2019 4:05 AM PDT) + + + + + + | Component | Value | Ref Range | Performed | Pathologist | | | | | At | Signature | + + + + + + | Na | 133 (L) | 136 - 145 | [facility] | | | | | mmol/L | [facility] | | | | | | MEDICAL | | | | | | CENTER - | | | | | | LABORATORY | | + + + + + + | K | 3.8 | 3.4 - 5.1 | [facility] | [...] + + + + | CO2 | 29 | 20 - 31 mmol/L | [facility] [...] + + + + | Glucose | 137 (H) | 60 - 106 mg/dL | [facility] | | | | | | [facility] | | | | | | MEDICAL | | | | | | CENTER - | | | | | | LABORATORY | | + + + + + + | BUN | 44 (H) | 9 - 23 mg/dL | [facility] | | | | | | [facility] | | | | | | MEDICAL | | | | | | CENTER - | | | | | | LABORATORY | | + + + + + + | Creatinine | 7.08 (H) | 0.70 - 1.30 | [facility] | | | | | mg/dL | [facility] | | | | | | MEDICAL | | | | | | CENTER - | | | | | | LABORATORY | | + + + + + + | eGFR if not | 8 (L)Comment: GLOMERULAR | >=60 | [facility] | | | | FILTRATION | mL/min/1.73m2 | [facility] | | | [facility] | RATE,ESTIMATED | | MEDICAL | | | | mL/min/1.82h7Uwii than | | CENTER - | | [...] + + + + | Calcium | 8.6 (L) | 8.7 - 10.4 | [facility] [...] + + + + | Phosphorus | 5.8 (H) | 2.4 - 5.1 mg/dL | [facility] | | | | | | [facility] | | | | | | MEDICAL | | | | | | CENTER - | | | | | | LABORATORY | | + + + + + + | BUN/Creatin | 6.2 | | [facility] | | | ine [...] St | [place] | [phone] | | [facility] | | [address] | | | - LABORATORY | | | | + + + + + PTT (12/31/2019 4:05 AM PDT) + +-------+ + + + | Component | Value | Ref Range | Performed | Pathologist | | | | | At | Signature | + +-------+ + + + | aPTT | 34 | 22 - 36 seconds | [facility] [...] + | [facility] | [address] | [place] | [phone] | | [facility] | | [address] | | | - LABORATORY | | | | + + + + + POC Glucose (12/30/2019 9:08 PM PDT) + +---------+ + + + | Component | Value | Ref Range | Performed | Pathologist | | | | | At | Signature | + +---------+ + + + | Glucose, | 144 (H) | 70 - 109 mg/dL | [...] [facility]. | [address] | [place], [place] | [phone] | | [facility] | | [address] | | | - LABORATORY | | | | + + + + + POC Glucose (12/30/2019 4:06 PM PDT) + +---------+ + + + | Component | Value | Ref Range | Performed | Pathologist | | | | | At | Signature | + +---------+ + + + | Glucose, | 115 (H) | 70 - 109 mg/dL | [...] St | [place] | [phone] | | [facility] | | [address] | | | - LABORATORY | | | | + + + + + POC Glucose (12/30/2019 10:48 AM PDT) + +---------+ + + + | Component | Value | Ref Range | Performed | Pathologist | | | | | At | Signature | + +---------+ + + + | Glucose, | 112 (H) | 70 - 109 mg/dL | [...] + | [facility] | [address] | [place] | [phone] | | [facility] | | [address] | | | - LABORATORY | | | | + + + + + Sedimentation Rate (12/30/2019 5:26 AM PDT) + +--------+ + + + | Component | Value | Ref Range | Performed | Pathologist | | | | | At | Signature | + +--------+ + + + | Erythrocyte | 64 (H) | <20 mm/hr | [facility] | | | | | | [facility] | | | Sedimentati | | [...] + | [facility] | [address] | [place] | [phone] | | [facility] | | [address] | | | - LABORATORY | | | | + + + + + C-Reactive Protein (12/30/2019 5:26 AM PDT) + + + + + + | Component | Value | Ref Range | Performed | Pathologist | | | | | At | Signature | + + + + + + | CRP | 51.80 (H) | <10.00 mg/L | [facility] | | | | [...] St | [place] | [phone] | | [facility] | | [address] | | | - LABORATORY | | | | + + + + + Lipase (12/30/2019 5:26 AM PDT) + + + + + + | Component | Value | Ref Range | Performed | Pathologist | | | | | At | Signature | + + + + + + | Lipase | 33Comment: New method in | 12 - 53 U/L | [facility] | | | | use as of December 04, | | [facility] | | | | 2019. Check reference | | MEDICAL | | | | range for changes.Some | | CENTER - | | | | analytes show | | LABORATORY | | | | significant variation | | | | | | from the previous | | | | | | method.It may be | | | | | | necessary to set a new | | | | | | baseline for this | | | | | | analyte. | | | | + + + + + + + + | Specimen | + + | Blood | + + + + + + + | Performing | Address | City/State/Zipcode | Phone Number | | Organization | | | | + + + + + | [facility] | [address] | [place] | [phone] | | [facility] | | [id number] | | | - LABORATORY | | | | + + + + + Comprehensive Metabolic Panel (12/30/2019 5:26 AM PDT) + + + + + + | Component | Value | Ref Range | Performed | Pathologist | | | | | At | Signature | + + + + + + | Na | 134 (L) | 136 - 145 | [facility] | | | | | mmol/L | [facility] | | | | | | MEDICAL | | | | | | CENTER - | | | | | | LABORATORY | | + + + + + + | K | 4.4 | 3.4 - 5.1 | [facility] | [...] + + + + | CO2 | 33 (H) | 20 - 31 mmol/L | [facility] | | | | | | [facility] | | | | | | MEDICAL | | | | | | CENTER - | | | | | | LABORATORY | | + + + + + + | Anion Gap | 8 | 3 - 16 mmol/L | [facility] | | | [facility] | | [facility] | | | | | | MEDICAL | | | | | | CENTER - | | | | | | LABORATORY | | + + + + + + | Glucose | 92 | 60 - 106 mg/dL | [facility] | [facility] | | [facility] | | | | | | [facility] | | | | | | CENTER - | | | | | | LABORATORY | | + + + + + + | BUN | 29 (H) | 9 - 23 mg/dL | [facility] | | | | | | [facility] | | | | | | [facility] | | | | | | CENTER - | | | | | | LABORATORY | | + + + + + + | Creatinine | 5.69 (H) | 0.70 - 1.30 | [facility] | | | | | mg/dL | [facility] | | | | | | MEDICAL | | | | | | CENTER - | | | | | | LABORATORY | | + + + + + + | eGFR if not | 10 (L)Comment: | >=60 | [facility] | | | | GLOMERULAR FILTRATION | mL/min/1.73m2 | [facility] | | | [facility] | RATE,ESTIMATED | | MEDICAL | | | | mL/min/1.47i1Jxfu than | | CENTER - | | [...] + + + + | Albumin | 3.6 | 3.2 - 4.8 g/dL | [facility] | | | | | | [facility] | | | | | | [facility] | | | | | | [facility] - | | | | | | LABORATORY | | + + + + + + | Bilirubin | 0.9 | 0.3 - 1.2 mg/dL | [facility] | | | Total | | | [facility] | | | | | | [facility] | | | | | | CENTER - | | | | | | LABORATORY | | + + + + + + | Total | 7.7 | 5.7 - 8.2 g/dL | [facility] | | | Protein | | | [facility] | | | | | | [facility] | | | | | | CENTER - | | | | | | LABORATORY | | + + + + + + | AST | 29 | 0 - 34 U/L | [facility] | | | | | | [facility] | | | | | | [facility] | | | | | | CENTER - | | | | | | LABORATORY | | + + + + + + | ALT | 9 (L) | 10 - 49 U/L | [facility] | | | | | [facility] | | | | | | [facility] | | | | | | CENTER - | | | | | | LABORATORY | | + + + + + + | Alkaline | 185 (H) | 46 - 116 U/L | [facility] | | | Phosphatase | | | [facility] | | | | | | [facility] | | | | | | CENTER - | | | | | | LABORATORY | | + + + + + + | Globulin | 4.1 (H) | 2.1 - 3.8 g/dL | [...] + + + + | BUN/Creatin | 5.1 | | [facility] | | | ine [...] St | [place] | [phone] | | [facility] | | [address] | | | - LABORATORY | | | | + + + + + CBC with Differential (12/30/2019 5:26 AM PDT) + + + + + + | Component | Value | Ref Range | Performed | Pathologist | | | | | At | Signature | + + + + + + | WBC | 16.0 (H) | 4.0 - 11.0 K/uL | [facility] | | | | | | [facility] | | | | | | MEDICAL | | | | | | CENTER - | | | | | | LABORATORY | | + + + + + + | RBC | 3.79 (L) | 4.30 - 5.70 | [facility] | | | | | M/uL | [facility] | | | | | | MEDICAL | | | | | | CENTER - | | | | | | LABORATORY | | + + + + + + | Hemoglobin | 11.4 (L) | 13.5 - 18.0 | [facility] [...] + + + + | MCV | 90.5 | 83.0 - 101.0 fL | [facility] | | | | | [facility] | | | | | | [facility]ICAL | | | | | | CENTER - | | | | | | LABORATORY | | + + + + + + | MCH | 30.1 | 28.0 - 35.0 pg | [facility] | | | | | [facility] | | | | | | MEDICAL | | | | | | CENTER - | | | | | | LABORATORY | | + + + + + + | MCHC | 33.2 | 32.0 - 36.0 | [facility] | | | | | g/dL | [facility] | | | | | | MEDICAL | | | | | | CENTER - | | | | | | LABORATORY | | + + + + + + | RDW-CV | 15.7 (H) | <15.0 % | [facility] | | | | | [facility] | | | | | | MEDICAL | | | | | | CENTER - | | | | | | LABORATORY | | + + + + + + | RDW-SD | 51.8 (H) | 35.1 - 46.3 fL | [facility] | | | | | | [facility] | | | | | | MEDICAL | | | | | | CENTER - | | | | | | LABORATORY | | + + + + + + | Platelet | 174 | 140 - 440 K/uL | [facility] | | | Count | | | [facility] | | | | | | MEDICAL | | | | | | CENTER - | | | | | | LABORATORY | | + + + + + + | MPV | 9.9 | 6.5 - 12.4 fL | [facility] | | | | | | [facility] | | | | | | MEDICAL | | | | | | CENTER - | | | | | | LABORATORY | | + + + + + + | % | 90.0 (H) | 45.0 - 82.0 % | [facility] | | | Neutrophils | | | [facility] | | | | | | MEDICAL | | | | | | CENTER - | | | | | | LABORATORY | | + + + + + + | % | 4.9 (L) | 20.0 - 45.0 % | [facility] | | | Lymphocytes | | | [facility] | | | | | | MEDICAL | | | | | | CENTER - | | | | | | LABORATORY | | + + + + + + | % Monocytes | 4.2 | 4.0 - 12.0 % | [facility] [...] + + + + | Absolute | 14.42 (H) | 1.80 - 8.50 | [facility] | | | Neutrophils | | K/uL | [facility] | | | | | | MEDICAL | | | | | | CENTER - | | | | | | LABORATORY | | + + + + + + | Absolute | 0.79 | 0.60 - 3.20 | [facility] | | | Lymphocytes | | K/uL | [facility] | | | | | | MEDICAL | | | | | | CENTER - | | | | | | LABORATORY | | + + + + + + | Absolute | 0.68 | 0.00 - 1.00 | [facility] | | | Monocytes | | K/uL | [facility] | | | | | | MEDICAL | | | | | | CENTER - | | | | | | LABORATORY | | + + + + + + | Absolute | 0.01 | 0.00 - 0.40 | [facility] | [...] + + + | Absolute | 0.06 (H) | 0.00 - 0.03 | [facility] [...] | | | | WBCs | [facility] | | | | [...] ST. | [address] | [place], [place] | [phone] | | [facility] | | [address] | | | - LABORATORY | | | | + + + + + Fecal leukocytes (12/30/2019 12:53 AM PDT) + + + + + + | Component | Value | Ref Range | Performed | Pathologist | | | | | At | Signature | + + + + + + | Lactoferrin | Negative | Negative | [facility] | | | , Qual | | | [facility] | | [...] St | [place] | [phone] | | [facility] | | [address] | | | - LABORATORY | | | | + + + + + Clostridioides difficile NAAT Reflex (12/30/2019 12:53 AM PDT) + + + + + [...] St | [place] | [phone] | | [facility] | | [address] | | | - LABORATORY | | | | + + + + + Culture, MRSA (12/30/2019 12:34 AM PDT) + + + + + + | Component | Value | Ref Range | Performed | Pathologist | | | | | At | Signature | + + + + + + | Culture | Negative for MRSA by | | [facility] | | | | chromogenic agar method. | | [facility] | | | [...] + | [facility] | [address] | [place] | [phone] | | [facility] | | [address] | | | - LABORATORY | | | | + + + + + Occult Bld Stl Not Colorectal Neoplasm (12/30/2019 12:33 AM PDT) + + + + + + | Component | Value | Ref Range | Performed | Pathologist | | | | | At | Signature | + + + + + + | Occult | Positive | | [facility] | | | Blood, | | | [facility] | | | Diagnostic, | | | MEDICAL | | | Stool | | | CENTER - | | [...] [address] | [place] | [phone] | | [facility] | | [address] | | | - LABORATORY | | | | + + + + + Culture, Blood (12/30/2019 12:06 AM PDT) + + + + + [...] St | [place] | [phone] | | [facility] | | [address] | | | - LABORATORY | | | | + + + + + Culture, Blood (12/30/2019 12:06 AM PDT) + + + + + + | Component | Value | Ref Range | Performed | Pathologist | | | | | At | Signature | + + + + + + | Culture | No growth after 5 days | | [facility] | | | | incubation. | | [facility] | | | | [...] St | [place] | [phone] | | [facility] | | [address] | | | - LABORATORY | | | | + + + + + Respiratory pathogen panel, NAAT (12/30/2019 12:00 AM PDT) + + + + + [...] | Not Detected | Not Detected | [facility] | | | za 3 | | | [facility] | | | | | | MEDICAL | | | | | | CENTER - | | | | | | LABORATORY | | + + + + + + + + | Specimen | + + | Body Fluid - Entire | | nasopharynx (body | | structure) | + + + + + + + | Performing | Address | City/State/Zipcode | Phone Number | | Organization | | | | + + + + + | [facility] | [address] | [place] | [phone] | | [facility] | | [address] | | | - LABORATORY | | | | + + + + + RSV RNA, NAAT (12/29/2019 11:59 PM PDT) + + + + + + | Component | Value | Ref Range | Performed | Pathologist | | | | | At | Signature | + + + + + + | RSV | Negative | Negative, | [facility] | | | | | Invalid | [facility] | | | | | | MEDICAL | | | | | | CENTER - | | | | | | LABORATORY | | + + + + + + + + | Specimen | + + | Body Fluid - | | Specimen from | | internal nose | | (specimen) | + + + + + + + | Performing | Address | City/State/Zipcode | Phone Number | | Organization | | | | + + + + + | [facility] | [address] | [place] | [phone] | | [facility] | | [address] | | | - LABORATORY | | | | + + + + + C-Reactive Protein (12/29/2019 11:56 PM PDT) + + + + + + | Component | Value | Ref Range | Performed | Pathologist | | | | | At | Signature | + + + + + + | CRP | 31.10 (H) | <10.00 mg/L | [facility] | | | | [...] St | [place] | [phone] | | [facility] | | [address] | | | - LABORATORY | | | | + + + + + B Type Natriuretic Peptide (12/29/2019 11:56 PM PDT) + + + + + + | Component | Value | Ref Range | Performed | Pathologist | | | | | At | Signature | + + + + + + | BNP | 1,732 (H)Comment: New | <100 pg/mL | [facility] | | | | method in use as of | | [facility] | | | | December 04, 2018. Check | | MEDICAL | | | | reference range for | | CENTER - | | | | changes.Some analytes | | LABORATORY | | | | show significant | | | | | | variation from the | | | | | | previous method.It may | | | | | | be necessary to set a | | | | | | new baseline for this | | | | | | analyte. | | | | + + + + + + + + | Specimen | + + | Blood | + + + + + + + | Performing | Address | City/State/Zipcode | Phone Number | | Organization | | | | + + + + + | [facility] | [address] | [place] | [phone] | | [facility] | | [address] | | | - LABORATORY | | | | + + + + + Procalcitonin (12/29/2019 11:56 PM PDT) + + + + + + | Component | Value | Ref Range | Performed | Pathologist | | | | | At | Signature | + + + + + + | Procalciton | 7.04 ()Comment: | <=0.50 ng/mL | [facility] | | | in | Critical Result called | | [facility] | | | | to and read back by Wendy | | MEDICAL | | | | Jorge Funk RN on | | CENTER - | | | | 12/30/2019 at 12:52 AM by | | LABORATORY | | [...] ST. | [address] | [place] | [phone] | | [facility] | | [address] | | | - LABORATORY | | | | + + + + + Magnesium (12/29/2019 11:56 PM PDT) + +-------+ + + + | Component | Value | Ref Range | Performed | Pathologist | | | | | At | Signature | + +-------+ + + + | Magnesium | 1.6 | 1.6 - 2.6 mg/dL | [facility] [...] St | [place] | [phone] | | [facility] | | [address] | | | - LABORATORY | | | | + + + + + Comprehensive Metabolic Panel (12/29/2019 11:56 PM PDT) + + + + + [...] + + + + | K | 3.8 | 3.4 - 5.1 | [facility] | [...] + + | CO2 | 31 | 20 - 31 mmol/L | [facility] [...] + + + + | Glucose | 94 | 60 - 106 mg/dL | [facility] | | | | | | [facility] | | | | | | MEDICAL | | | | | | CENTER - | | | | | | LABORATORY | | + + + + + + | BUN | 26 (H) | 9 - 23 mg/dL | [facility] | | | | | | [facility] | | | | | | MEDICAL | | | | | | CENTER - | | | | | | LABORATORY | | + + + + + + | Creatinine | 5.27 (H) | 0.70 - 1.30 | [facility] | | | | | mg/dL | [facility] | | | | | | MEDICAL | | | | | | CENTER - | | | | | | LABORATORY | | + + + + + + | eGFR if not | 11 (L)Comment: | >=60 | [facility] | | | | GLOMERULAR FILTRATION | mL/min/1.73m2 | [facility] | | | OMANI | RATE,ESTIMATED | | MEDICAL | | | | mL/min/1.69q2Zshh than | | CENTER - | | [...] + + + + | Albumin | 3.7 | 3.2 - 4.8 g/dL | [facility] | | | | | | [facility] | | | | | | MEDICAL | | | | | | CENTER - | | | | | | LABORATORY | | + + + + + + | Bilirubin | 1.0 | 0.3 - 1.2 mg/dL | [facility] | | | Total | | | [facility] | | | | | | MEDICAL | | | | | | CENTER - | | | | | | LABORATORY | | + + + + + + | Total | 8.0 | 5.7 - 8.2 g/dL | [facility] | | | Protein | | | [facility] | | | | | | MEDICAL | | | | | | CENTER - | | | | | | LABORATORY | | + + + + + + | AST | 23 | 0 - 34 U/L | [facility] | | | | | | [facility] | | | | | | MEDICAL | | | | | | CENTER - | | | | | | LABORATORY | | + + + + + + | ALT | 9 (L) | 10 - 49 U/L | [facility] | | | | | | [facility] | | | | | | MEDICAL | | | | | | CENTER - | | | | | | LABORATORY | | + + + + + + | Alkaline | 200 (H) | 46 - 116 U/L | [facility] | | | Phosphatase | | | [facility] | | | | | | MEDICAL | | | | | | CENTER - | | | | | | LABORATORY | | + + + + + + | Globulin | 4.3 (H) | 2.1 - 3.8 g/dL | [...] St | [place] | [phone] | | [facility] | | [address] | | | - LABORATORY | | | | + + + + + CBC with Differential (12/29/2019 11:56 PM PDT) + + + + + + | Component | Value | Ref Range | Performed | Pathologist | | | | | At | Signature | + + + + + + | WBC | 18.5 (H) | 4.0 - 11.0 K/uL | [...] + + + + | Hemoglobin | 11.5 (L) | 13.5 - 18.0 | [facility] | | | | | g/dL | [facility] | | | | | | MEDICAL | | | | | | CENTER - | | | | | | LABORATORY | | + + + + + + | Hematocrit | 34.6 (L) | 40.0 - 51.0 % | [facility] | | | | | | [facility] | | | | | | MEDICAL | | | | | | CENTER - | | | | | | LABORATORY | | + + + + + + | MCV | 90.8 | 83.0 - 101.0 fL | [facility] [...] + + + + | MCHC | 33.2 | 32.0 - 36.0 | [facility] | | | | | g/dL | [facility] | | | | | | MEDICAL | | | | | | CENTER - | | | | | | LABORATORY | | + + + + + + | RDW-CV | 15.6 (H) | <15.0 % | [facility] | | | | | | [facility] | | | | | | MEDICAL | | | | | | CENTER - | | | | | | LABORATORY | | + + + + + + | RDW-SD | 51.4 (H) | 35.1 - 46.3 fL | [facility] | | | | | | [facility] | | [facility] | | | MEDICAL | | | | | | CENTER - | | | | | | LABORATORY | | + + + + + + | Platelet | 183 | 140 - 440 K/uL | [facility] [...] + + + + | % | 86.5 (H) | 45.0 - 82.0 % | [facility] | | | Neutrophils | | | [facility] | | | | | | MEDICAL | | | | | | CENTER - | | | | | | LABORATORY | | + + + + + + | % | 5.4 (L) | 20.0 - 45.0 % | [facility] | | | Lymphocytes | | | [facility] | | | | | | MEDICAL | | | | | | CENTER - | | | | | | LABORATORY | | + + + + + + | % Monocytes | 6.7 | 4.0 - 12.0 % | [facility] | | | | | | [facility] | | | | | | MEDICAL | | | | | | CENTER - | | | | | | LABORATORY | | + + + + + + | % | 0.0 | 0.0 - 5.0 % | [facility] [...] + + + | % Immature | 1.0 (H)Comment: | 0.0 - 0.4 % | [facility] | | | Granulocyte | Preliminary studies have | | [facility] | | | s | indicated the IG% | | MEDICAL | | | | and/or IG# show promise | | CENTER - | | | | as an early indicator | | LABORATORY | | | | for infection. | | | | + + + + + + | Absolute | 15.96 (H) | 1.80 - 8.50 | [facility] | | | Neutrophils | | K/uL | [facility] | | | | | | MEDICAL | | | | | | CENTER - | | | | | | LABORATORY | | + + + + + + | Absolute | 1.00 | 0.60 - 3.20 | [facility] | | | Lymphocytes | | K/uL | [facility] | | | | | | MEDICAL | | | | | | CENTER - | | | | | | LABORATORY | | + + + + + + | Absolute | 1.24 (H) | 0.00 - 1.00 | [facility] | | | Monocytes | | K/uL | [facility] | | | | | | MEDICAL | | | | | | CENTER - | | | | | | LABORATORY | | + + + + + + | Absolute | 0.00 | 0.00 - 0.40 | [facility] | | | Eosinophils | | K/uL | [facility] | [...] + + + + | Absolute | 0.18 (H) | 0.00 - 0.03 | [facility] [...] | | | | WBCs | [facility] | | | | [...] + + | [facility] | [address] | [place] | [phone] | | [facility] | | [address] | | | - LABORATORY | | | | + + + + + documented in this encounter Visit Diagnoses + + | Diagnosis | + + | Atrial fibrillation with RVR (HCC) Atrial fibrillation | + + | Fever, unspecified fever cause | + + | End stage renal disease ([facility]) End stage renal disease | + + | Diabetes mellitus, type II, insulin dependent ([facility]) Type II or unspecified type | | diabetes mellitus without mention of complication, not stated as uncontrolled | + + | SIRS (systemic inflammatory response syndrome) ([facility]) Systemic inflammatory response | | syndrome, unspecified | + + | Diabetic foot ulcer ([facility]) Type II or unspecified type diabetes mellitus with other | | specified manifestations, not stated as uncontrolled | + + documented in this encounter Administered Medications + +--------+ +--------+------+------+ | Medication Order | MAR | Action | Dose | Rate | Site | | | Action | Date | | | | + +--------+ +--------+------+------+ | acetaminophen (TYLENOL) tablet | Given | 12/30/19 | 650 mg | | | | 650 mg 650 mg, Oral, EVERY 6 | | 20 10:59 | | | | | HOURS PRN, Pain, or fever >= 38.6 | | PM PDT | | | | | C (101.5 F), Starting Tue | | | | | | | 12/30/19 at 1821 | | | | | | + +--------+ +--------+------+------+ + +---+ | | | + +---+ | albumin 25% IVPB 12.5 g 12.5 | | | g, Intravenous, Administer over | | | 30 Minutes, PRN, PRN | | | hypotension., Starting Wed | | | 12/31/19 at 0656, For BP < 90 mmHg | | | on NxStage., Dialysis, | | | Indications: Hemodialysis | | | Procedure | | + +---+ | | | + +---+ + +-------+ +--------+---+---+ | apixaban (ELIQUIS) tablet 2.5 | Given | 12/30/19 | 2.5 mg | | | | mg 2.5 mg, Oral, 2 TIMES DAILY, | | 20 2:24 | | | | | First dose on Sun12/29/19 at 2345 | | AM PDT | | | | + +-------+ +--------+---+---+ +---+---+ | | | +---+---+ + +-------+ +--------+---+---+ | apixaban (ELIQUIS) tablet 2.5 | Given | 01/01/20 | 2.5 mg | | | | mg 2.5 mg, Oral, 2 TIMES DAILY, | | 20 8:56 | | | | | First dose on [facility] 01/01/20 at | | AM PDT | | | | | 0900, Please start tomorrow., | | | | | | + +-------+ +--------+---+---+ +---+---+ | | | +---+---+ + +-------+ +--------+---+---+ | cholecalciferol (VITAMIN D-3) | Given | 01/01/20 | 5,000 | | | | tablet 5,000 Units 5,000 Units, | | 20 8:56 | Units | | | | Oral, DAILY, First dose on Sun | | AM PDT | | | | | 12/30/19 at 0900 | | | | | | + +-------+ +--------+---+---+ +-------+ +--------+---+---+ | Given | 12/31/19 | 5,000 | | | | | 20 9:10 | Units | | | | | AM PDT | | | | +-------+ +--------+---+---+ | Given | 12/30/19 | 5,000 | | | | | 20 11:25 | Units | | | | | AM PDT | | | | +-------+ +--------+---+---+ +---+---+ | | | +---+---+ + +-------+ +-------+---+---+ | cinacalcet (SENSIPAR) tablet 30 | Given | 12/31/19 | 30 mg | | | | mg 30 mg, Oral, THREE TIMES | | 20 9:10 | | | | | WEEKLY (Once per day on Sun | | AM PDT | | | | | Sun), First dose on Sun12/31/19 | | | | | | | at 0900, Do not cut or crush., | | | | | | + +-------+ +-------+---+---+ +---+---+ | | | +---+---+ + +-------+ +--------+---+---+ | ciprofloxacin (CIPRO) tablet | Given | 01/01/20 | 250 mg | | | | 250 mg 250 mg, Oral, 2 TIMES | | 20 9:56 | | | | | DAILY, First dose on Sun01/01/20 | | AM PDT | | | | | at 0945, Give 2 hours before or 6 | | | | | | | hours after antacids, dairy, | | | | | | | calcium, iron, or zinc., | | | | | | | Indications: Diabetic Foot Ulcer | | | | | | + +-------+ +--------+---+---+ + +---+ | | | + +---+ | dextrose 10% (D10W) infusion | | | at 50 mL/hr, Intravenous, | | | CONTINUOUS PRN, hypoglycemia, | | | Starting 12/29/19 at 2315, | | | Start infusion if unable [...] Blood Sugar, Starting Mon | | | 12/29/19 at 2315, For blood | | | glucose 50-69 mg/dl - give 12.5 g | | | For blood glucose less than 50 | | | mg/dl - give 25 g, | | + +---+ | | | + +---+ + +-------+ +-------+---+---+ | heparin (dialysis) 1,000 | Given | 12/31/19 | 500 | | | | units/mL injection 500 Units 500 | | 20 9:20 | Units | | | | Units, Intravenous, DIALYSIS - | | AM PDT | | | | | ONCE, Sun12/31/19 at 0715, For 1 | | | | | | | dose, While on NxStage Tx., | | | | | | | Dialysis | | | | | | + +-------+ +-------+---+---+ +---+---+ | | | +---+---+ + +---------+ + +---------+---+ | heparin in half-normal saline | New Bag | 12/31/19 | 400 | 4 mL/hr | | | 100 units/mL infusion 400 | | 20 1:00 | Units/hr | | | | Units/hr (4 mL/hr), at 4 mL/hr, | | PM PDT | | | | | Intravenous, DIALYSIS - | | | | | | | CONTINUOUS, Starting Sun12/31/19 | | | | | | | at 0715, For 1 day, While on | | | | | | | NxStage Tx., Dialysis | | | | | | + +---------+ + +---------+---+ +---+---+ | | | +---+---+ + +-------+ + +---+---+ | HYDROcodone-acetaminophen | Given | 12/31/19 | 1 tablet | | | | (NORCO) 5-325 mg per tablet 1 | | 20 8:30 | | | | | tablet 1 tablet, Oral, EVERY 8 | | PM PDT | | | | | HOURS PRN, Pain, Starting Wed | | | | | | | 12/31/19 at 0900 | | | | | | + +-------+ + +---+---+ +---+---+ | | | +---+---+ + +-------+ + +---+ + | insulin glargine (LANTUS | Given | 12/31/19 | 10 Units | | Abdomen- | | SOLOSTAR) injection (pen) 10 | | 20 8:20 | | | LLQ | | Units 10 Units, Subcutaneous, | | PM PDT | | | | | EVERY 12 HOURS (2 times per day), | | | | | | | First dose (after last | | | | | | | modification) on Sun12/30/19 at | | | | | | | 2100, If NPO: Decrease dose, by: | | | | | | | 25% | | | | | | + +-------+ + +---+ + +-------+ +---------+---+ + | Given | 12/30/19 | 7 Units | | Abdomen- | | | 20 11:00 | | | LLQ | | | PM PDT | | | | +-------+ +---------+---+ + +---+---+ | | | +---+---+ + +-------+ +---------+---+ + | insulin glargine (LANTUS | Given | 01/01/20 | 5 Units | | Arm-Left | | SOLOSTAR) injection (pen) 5 Units | | 20 8:56 | | | Upper | | 5 Units, Subcutaneous, EVERY 12 | | AM PDT | | | | | HOURS (2 times per day), First | | | | | | | dose (after last modification) on | | | | | | | Sakina 01/01/20 at 0900, If NPO: | | | | | | | Decrease dose, by: 25% | | | | | | + +-------+ +---------+---+ + +---+---+ | | | +---+---+ + +-------+ +------+---+---+ | loperamide (IMODIUM) capsule 2 | Given | 12/31/19 | 2 mg | | | | mg 2 mg, Oral, EVERY 3 HOURS | | 20 11:11 | | | | | PRN, Diarrhea, Starting Tue | | PM PDT | | | | | 12/30/19 at 2224 | | | | | | + +-------+ +------+---+---+ +-------+ +------+---+---+ | Given | 12/30/19 | 2 mg | | | | | 20 10:59 | | | | | | PM PDT | | | | +-------+ +------+---+---+ + +---+ | | | + +---+ | mannitol 20% IVPB 12.5 g 12.5 | | | g, Intravenous, Administer over | | | 30 Minutes, PRN, PRN hypotension, | | | Starting 12/31/19 at 0656, | | | For BP < 90 mmHg on NxStage. Do | | | not refrigerate. Watch for | | | precipitation. Use 0.22, 1.2, or | | | 5 micron in-line filter for | | | administration., Dialysis | | + +---+ | | | + +---+ + +---------+ +--------+-------+---+ | meropenem (MERREM) 500 mg in | New Bag | 12/30/19 | 500 mg | 100 | | | sodium chloride 0.9% 50 mL IVPB | | 20 9:02 | | mL/hr | | | 500 mg, Intravenous, Administer | | PM PDT | | | | | over 30 Minutes, EVERY 24 HOURS | | | | | | | (Daily), First dose on Sun | | | | | | | 12/30/19 at 1845, Activate system | | | | | | | and mix before use., Indications: | | | | | | | Diabetic Foot Infection | | | | | | + +---------+ +--------+-------+---+ +---+---+ | | | +---+---+ + +-------+ +-------+---+---+ | metoprolol succinate | Given | 01/01/20 | 50 mg | | | | (TOPROL-XL) ER tablet 50 mg 50 | | 20 8:56 | | | | | mg, Oral, DAILY, First dose on | | AM PDT | | | | | 12/30/19 at 0900, Hold for | | | | | | | sbp<100, hr<60, | | | | | | + +-------+ +-------+---+---+ +-------+ +-------+---+---+ | Given | 12/31/19 | 50 mg | | | | | 20 1:38 | | | | | | PM PDT | | | | +-------+ +-------+---+---+ | Given | 12/30/19 | 50 mg | | | | | 20 10:50 | | | | | | AM PDT | | | | +-------+ +-------+---+---+ + +---+ | | | + +---+ | metoprolol tartrate (LOPRESSOR) | | | injection 2.5 mg 2.5 mg, | | | Intravenous, EVERY 15 MIN PRN, | | | for HR >120, hold for sbp<95. | | | Notify MD if not effective after | | | 3 doses., Starting [facility] 12/30/19 at | | | 0312 | | + +---+ | | | + +---+ + +-------+ +--------+---+---+ | metroNIDAZOLE (FLAGYL) tablet | Given | 01/01/20 | 500 mg | | | | 500 mg 500 mg, Oral, 3 TIMES | | 20 9:56 | | | | | DAILY, First dose on [place] 01/01/20 | | AM PDT | | | | | at 0945, Indications: Diabetic | | | | | | | Foot Ulcer | | | | | | + +-------+ +--------+---+---+ +---+---+ | | | +---+---+ + +-------+ +-------+---+---+ | pantoprazole (PROTONIX) DR | Given | 01/01/20 | 40 mg | | | | tablet 40 mg 40 mg, Oral, DAILY | | 20 6:48 | | | | | BEFORE BREAKFAST, First dose on | | AM PDT | | | | | 12/30/19 at 0730, Indication: | | | | | | | GERD | | | | | | + +-------+ +-------+---+---+ +-------+ +-------+---+---+ | Given | 12/31/19 | 40 mg | | | | | 20 7:37 | | | | | | AM PDT | | | | +-------+ +-------+---+---+ | Given | 12/30/19 | 40 mg | | | | | 20 6:57 | | | | | | AM PDT | | | | +-------+ +-------+---+---+ +---+---+ | | | +---+---+ + +-------+ +-------+---+---+ | rosuvastatin (CRESTOR) tablet | Given | 01/01/20 | 20 mg | | | | 20 mg 20 mg, Oral, DAILY, First | | 20 8:55 | | | | | dose on Sun12/30/19 at 0900 | | AM PDT | | | | + +-------+ +-------+---+---+ +-------+ +-------+---+---+ | Given | 12/31/19 | 20 mg | | | | | 20 9:14 | | | | | | AM PDT | | | | +-------+ +-------+---+---+ | Given | 12/30/19 | 20 mg | | | | | 20 10:50 | | | | | | AM PDT | | | | +-------+ +-------+---+---+ + +---+ | | | + +---+ | sodium chloride 0.9% (NS) | | | infusion at 100 mL/hr, | | | Intravenous, EVERY 30 MIN PRN, | | | PRN hypotension, Starting Wed | | | 12/31/19 at 0656, May administer 4 | | | doses/24 hours. For BP less than | | | 90. Dialysis use only, Dialysis | | + +---+ | | | + +---+ + +-------+ +--------+---+---+ | vancomycin (FIRVANQ) 50 mg/mL | Given | 12/30/19 | 125 mg | | | | liquid 125 mg 125 mg, Oral, | | 20 2:24 | | | | | EVERY 6 HOURS (4 times per day), | | AM PDT | | | | | First dose on Sun12/30/19 at | | | | | | | 0115, Shake well. Keep in | | | | | | | refrigerator., Indications: | | | | | | | Clostridium difficile | | | | | | + +-------+ +--------+---+---+ + +---+ | | | + +---+ | zolpidem (AMBIEN) tablet 5 mg | | | 5 mg, Oral, NIGHTLY PRN, | | | Insomnia, Starting 12/31/19 at | | | 0900 | | + +---+ | | | + +---+ documented in this encounter Additional Health Concerns [...]
--- OUTSIDE RECORDS SUMMARY | ~2020-03-04 | XMS | Encounter Summary ---
Demographics + + + | Address | [address] | | | [place] [address] | + + + | Home Phone | | + + + | Preferred Language | Unknown | + + + | Marital Status | | + + + | Mormon Affiliation | [id number] | + + + | Race | Unknown | + + + | Ethnic Group | Unknown | + + + Author + + + | Author | Merged With [facility] | | | and Scarana | + + + | Organization | Merged With [facility] | [...] Team Providers + +------+ + | Care Vault Teller Name | Role | Phone | + [...] Specialty | Home Health | Diagnoses | Odalys, | | | | Services | Services | | Sentcarla, | | | | Required | | Osteomyeliti | MD [address] | | | | | | s of fourth | [address] | | | | | | toe of left | [place], | | | | | | foot (HCC) | [place] [address] | | | | | | Diabetic | Phone: | | | | | | ulcer of | [phone] | | | | | | left midfoot | Fax: | | | | | | associated | [phone] | | | | | | with type 2 | | | | | | | diabetes | | | | | | | mellitus, | | | | | | | with other | | | | | | | ulcer | | | | | | | severity | | | | | | | ([facility]) | | | +--------+ + + + + + Reason for Visit + + + | Reason | Comments | + + + | Foot Swelling | left foot infection | + + + | Wound | second toe | + + + Auth/Cert +--------+--------+ + [...] + + + + | 01/08/ | Hospital | [facility] | Bryant Mares MD | Cellulitis, | | 2019 - | Encounter | [facility] | [address] | unspecified | | | | [address] [place] | [place] | cellulitis site | | 01/11/ | | [place] [id number] | [id number] | (Primary Dx); End | | 2019 | | [phone] | | stage renal disease | | | | | Estiven Ramirez | ([facility]); Osteomyelitis | | | | | Anival, MD [address] | of left foot, | | | | | [address] [place] | unspecified type | | | | | [place] [address] | ([facility]); Essential | | | | | [phone] | hypertension; Anemia | | | | | | in ESRD (end-stage | | | | | | renal disease) | | | | | | ([facility]); Paroxysmal | | | | | | atrial flutter | | | | | | ([facility]); Osteomyelitis | | | | | | of fourth toe of | | | | | | left foot ([facility]); | | | | | | Diabetes mellitus, | | | | | | type II, insulin | | | | | | dependent ([facility]); | | | | | | Cellulitis of left | | | | | | lower extremity; | | | | | | Typical atrial | | | | | | flutter ([facility]); ESRD | | | | | | (end stage renal | | | | | | disease) ([facility]); | | | | | | Insulin dependent | | | | | | diabetes mellitus | | | | | | ([facility]); Peripheral | | | | | | artery disease | | | | | | ([facility]); | | | | | | Hyperlipidemia, | | | | | | unspecified | | | | | | hyperlipidemia type; | | | | | | Diabetic ulcer of | | | | | | toe of right foot | | | | | | associated with | | | | | | diabetes mellitus | | | | | | due to underlying | | | | | | condition, with | | | | | | other ulcer severity | | | | | | ([facility]); Diabetic | | | | | | ulcer of left | | | | | | midfoot associated | | | | | | with type 2 diabetes | | | | | | mellitus, with | | | | | | other ulcer severity | | | | | | ([facility]) | +--------+ + + + + Social [...] + + + | Blood Pressure | 135/79 | 01/11/2019 3:00 PM | | | | | PDT | | + + + + + | Pulse | 115 | 01/11/2019 3:00 PM | | | | | PDT | | + + + + + | Temperature | 37.1 C (98.8 F) | 01/11/2019 12:00 PM | | | | | PDT | | + + + + + | Respiratory Rate | 20 | 01/11/2019 3:00 PM | | | | | PDT | | + + + + + | Oxygen Saturation | 96% | 01/11/2019 2:00 PM | | | | | PDT | | + + + + + | Inhaled Oxygen | - | - | | | Concentration | | | | + + + + + | Weight | 118.3 kg (260 lb | 01/11/2019 4:46 AM | | | | 12.9 oz) | PDT | | + + + + + | Height | 185.4 cm (6' 1") | 01/08/2019 4:01 PM | | | | | PDT | | + + + + + | Body Mass Index | 34.41 | 01/08/2019 4:01 PM | | | | | PDT | | + + + + + documented in this encounter Discharge Summaries Blue Morrow MD - 01/11/2019 1:49 PM PDTFormatting of this note might be differe nt from the original. HOSPITALIST DISCHARGE SUMMARY Admit date: 01/08/2019 16:06 Discharge date: 01/11/2019 13:49 Admitting Physician: Estiven Ramirez MD Discharging Physician: Blue Morrow MD Primary Care Provider: Cristina Quinones PA-C FINAL DIAGNOSES: Diagnosis Osteomyelitis of fourth toe of left foot *Cellulitis of left lower extremity End stage renal disease Diabetes mellitus, type II, insulin dependent Anemia in ESRD (end-stage renal disease) Hypertension Dyslipidemia REASON FOR ADMISSION: Chief Complaint Patient presents with Foot Swelling left foot infection Wound second toe HOSPITAL COURSE: History of the presenting illness :Celso Hall a 58 y.o. 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 Schuster) and 6 weeks of Vanc/Unasyn who present ed with 2 day h/o left foot swelling/pain/erythema, left fourth toe wound with minimal drain age. + subjective fever/chills. Pt initially went to [facility] and was then sent t o the ER. Pt was supposed to have a follow up with Dr. Schuster sometime in mid december however patient missed the appointment. Pt missed his HD today. He has no other complains. Denies CP /SOB/abdominal pain/diarrhea/dysuria. For details please refer to the H&P and daily progress notes and consults. Patient's acute hospital medical problems were briefly addressed as follow: 1. Cellulitis of left lower extremity with the Osteomyelitis of fourth toe of left foot : h rosas had 4th toe amputated and his MRSA status was negative and will stopped the Vanco and Zosy n change to Cefazolin and was noted he Discharged. 2. End stage renal disease : Getting his dialysis routinely without any complications and w as dialyzed today too 3. Dyslipidemia : on Crestor 4. Hypertension : On BB 5. Anemia in ESRD (end-stage renal disease) : Stable 6. Diabetes mellitus, type II, insulin dependent :On insulin and no acute complications not ed 7. DVT Prophylaxis : heparin used PROCEDURES : 4th Toe amputation by Dr. Cristina Sahni CONSULTATIONS: Podiatry Nephrology IMAGING PERFORMED: MRI LEFT FOOT 01/09/2019 11:57 AM CLINICAL HISTORY: LLE cellulitis, r/o osteomyelitis COMP ARISON: Radiographs the previous day, MRI and radiographs August 2018 TECHNIQUE: [facility] 3T MR sequences of the left foot were obtained: 1. Axial and sagittal T1 and STIR. 2. Coronal T1. The patient was too uncomfortable to complete coronal STIR imaging. FINDINGS: S everal sequences are somewhat degraded by motion. Changes of transmetatarsal amputation of the second and third digits are again apparent. There is some ill-definition distally within the residual second and third metatarsals, and some marrow edema is visible as well. A foc al defect is suggested in the plantar cutaneous tissues at this level and there is thickenin g and ill-definition of the intervening soft tissues. Ill-defined low signal regions in the soft tissues at this level could reflect the presence of gas but are non-specific. Some pa tchy marrow edema is now apparent in the mid to distal fourth metatarsal as well, extending to the articular surface of the metatarsal head. A cutaneous defect is visible distally in the fourth digit, and there is signal alteration and ill-definition of the underlying distal phalanx. Some marrow edema is also questioned within the middle phalanx. The fourth proxi mal phalanx appears grossly normal. No marrow edema is visible within the first or fifth ra ys or within the imaged tarsals. There is generalized myofascial and subcutaneous edema thr oughout the imaged foot. No defined fluid collection is evident. Evaluation of the tendino us structures is limited. IMPRESSION - 1. ILL-DEFINITION OF THE RESIDUAL SECOND AND THIRD M ETATARSALS DISTALLY WITH SOME ASSOCIATED MARROW EDEMA AND THICKENING AND ILL-DEFINITION OF T HE UNDERLYING PLANTAR SOFT TISSUES EXTENDING TO A SUSPECTED CUTANEOUS DEFECT. THIS MAY BE P OSTSURGICAL TO SOME DEGREE HOWEVER RESIDUAL OR RECURRENT INFECTION CANNOT BE EXCLUDED. SOME LOW SIGNAL WITHIN THE SOFT TISSUES AT THIS LEVEL COULD REFLECT THE PRESENCE OF GAS ALTHOUGH THIS WAS NOT CONFIDENTLY VISIBLE ON RECENT RADIOGRAPHY. 2. SOFT TISSUE DEFECT DISTALLY IN THE FOURTH DIGIT WITH FINDINGS SUSPICIOUS FOR OSTEOMYELITIS INVOLVING THE DISTAL PHALANX AND POSSIBLY THE MIDDLE PHALANX. 3. NEW PATCHY MARROW EDEMA IN THE MID TO DISTAL FOURTH METATA RSAL, POSSIBLY A STRESS RESPONSE FROM ALTERED WALKING MECHANICS. OSTEOMYELITIS IS CONSIDERE D LESS LIKELY. 4. GENERALIZED MYOFASCIAL AND SUBCUTANEOUS EDEMA SUGGESTING CELLULITIS AND M YOFASCIITIS, WITHOUT DEFINED FLUID COLLECTION. Dictated and Signed by: Chacorta Schulz MD Elec tronically signed: 01/09/2019 1:02 PM Xr Foot Left 3 + Vw CLINICAL INFORMATION: Poss. Infection.. COMPARISON: None available. FINDINGS: 3 views of th e left foot. Indication changes of the second and third digits distal to the mid/distal aspe ct of the metatarsals. Extensive periostitis noted at the distal aspect of the remaining se cond and third metatarsals. The periostitis demonstrates irregular margins/erosions. Erosi ve changes are also noted at the distal aspect of the fourth distal phalanx. Diffuse modera te soft tissue swelling. Extensive arterial vascular calcifications. Mild midfoot degenerati ve changes. Calcaneal enthesophytes are noted. IMPRESSION - Findings are compatible with ost eomyelitis involving the fourth digit distal phalanx and distal margin of the partially ampu tated second and third metatarsals. Extensive soft tissue edema most likely represents cell ulitis. Dictated and Signed by: Amilcar Cha MD Electronically signed: 01/09/2019 8:53 AM LABORATORY 01/08/2019 16:36 01/09/2019 05:48 01/10/2019 05:35 WBC 10.8 8.8 7.1 RBC COUNT 4.03 (L) 3.81 (L) 3.85 (L) Hemoglobin 11.7 (L) 10.9 (L) 11.1 (L) Hct, Final 35.6 (L) 33.7 (L) 34.2 (L) MCV 88.3 88.5 88.8 MCH 29.0 28.6 28.8 MCHC 32.9 32.3 32.5 RDW-SD 58.8 (H) 59.7 (H) 59.8 (H) RDW-CV 18.1 (H) 18.3 (H) 18.3 (H) Platelet Count 265 244 271 01/08/2019 16:36 01/09/2019 05:48 01/10/2019 05:35 Na 134 (L) 134 (L) 134 (L) K 4.3 4.5 4.4 Chloride 94 (L) 94 (L) 97 (L) Carbon dioxide 29 28 27 Anion Gap 11 12 10 Glucose 94 74 103 BUN 44 (H) 54 (H) 42 (H) Creatinine 7.12 (H) 7.98 (HH) 6.71 (H) BUN/Creatini 6.2 6.8 6.3 Albumin 3.9 Albumin/Glob 1.0 Total Protein 7.7 EGFR 8 (L) 7 (L) 9 (L) Calcium 9.0 8.8 8.4 (L) Phosphorus 7.1 (H) ALK PHOS 242 (H) ALT (SGPT) 9 (L) AST (SGOT) 21 Bilirubin Total 0.9 Globulin 3.8 PROCALCITONIN 0.98 (H) Lactate 0.8 HOSPITAL COMPLICATIONS: None CONDITION ON DISCHARGE: Stable and improved PHYSICAL EXAMINATION: Vitals: 01/11/19 1300 01/11/19 1315 01/11/19 1330 01/11/19 1345 BP: 132/79 131/80 113/71 119/66 Pulse: 102 83 86 83 Resp: 18 Temp: TempSrc: SpO2: 96% 95% Weight: Height: PHYSICAL Exam : Gen Emiliano - alert, cooperative and no distress Head - Normocephalic, without obvious abnormality, atraumatic Eyes - PERRL, conjunctiva/corneas clear, EOM's intact both eyes ENT - mucous membranes moist Neck - supple Lungs - clear to auscultation, no wheezes or rales and unlabored breathing Heart - normal rate, regular rhythm, normal S1, S2, no murmurs, rubs, clicks or gallops Abdomen - soft, non-tender, without masses or organomegaly Extremities - no peripheral edema, no clubbing or cyanosis Skin - dressing in place for the foot on the left side Neurologic - Alert and oriented x 3. CN II-XII intact. ALLERIES ON DISCHARGE: Allergies Allergen Reactions Amlodipine Besylate Unknown Fenofibrate Acidosis Metformin Diarrhea MEDICATIONS ON DISCHARGE: Discharge Medications New Medications Details amoxicillin-clavulanate 500-125 mg per tablet Take 1.5 tablets by mouth Daily. Indications: Infection Under the Skin aka: AUGMENTIN Start: 01/12/2019 Changed Medications Details sucroferric oxyhydroxide 500 mg [...] by mouth 2 times daily. aka: ELIQUIS Cholecalciferol 5000 units Caps Take 5,000 Units by mouth Daily. aka: VITAMIN D-3 cinacalcet 60 MG tablet Take 1 tablet by mouth Daily. aka: SENSIPAR epoetin padilla 10,000 units/mL injection Inject 6,800 Units into the vein Three times a week. aka: EPOGEN, PROCRIT furosemide 80 mg tablet Take 80 mg by mouth Daily. aka: LASIX HECTOROL 2 mcg/mL injection Generic drug: doxercalciferol Inject 10 mcg into the vein Three times a week. ibuprofen 200 mg tablet Take 400 mg by mouth Twice daily as needed for Pain. aka: ADVIL, MOTRIN insulin glargine 100 units/mL injection (vial) Inject 55 Units under the skin 2 times daily. aka: LANTUS metoprolol succinate 100 mg ER tablet Take 0.5 tablets by mouth Daily. aka: TOPROL-XL omeprazole 20 mg capsule Take 20 mg by mouth Daily as needed (for stomach). aka: priLOSEC OLEG-TEQUILA RX 1 MG Tabs tablet Take 1 mg by mouth Daily. rosuvastatin 20 mg tablet Take 20 mg by mouth Daily. aka: CRESTOR PHYSICAL ACTIVITY: As able and caution with the foot on L and daily inspect both feet DIET: Carb control Renal diet DISPOSITION: Home FOLLOW UP CARE: Follow up with PCP and Dr. Cristina Sahni as well as Declan maherk wound care through Home health PENDING STUDIES: Bone culture and sensitivity of the wound culture CODE STATUS and GOALS OF CARE Code status at discharge FULLCODE Greater than 30 minutes was spent on discharge and coordination of post hospital care. Blue Mrorow 01/11/19 13:49 documented in t his encounter Medications at Time of Discharge + [...] + + +---------+ + + | B Bhquuxa-G-Plzcw | Take 1 mg by mouth | [...] + +---------+ + + | | Take 1.5 tablets by | 35 | 0 | 01/13/20 | | | amoxicillin-clavulan | mouth Daily. | tablet | | 19 | 9 | | ate (AUGMENTIN) | Indications: | | | | | | 500-125 mg per | Infection Under the | | | | | | tabletIndications: | Skin | | | | | | Cellulitis | | | | | | + [...] + + + +---------+ + + | ibuprofen (ADVIL, | Take 400 mg by mouth | | 0 | | | | MOTRIN) 200 mg | Twice daily as | | | | 9 | | tablet | needed for Pain. | | | | | + + [...] documented as of this encounter Progress Notes Vale Rojas, PharmD - 01/11/2019 2:46 PM PDT PHARMACY SERVICES: ADMISSION MEDICATION REVIEW Celso Caro is a 58 y.o. male admitted on 01/08/2019. Patient is a somewhat reliable historian. Location of Patient when reviewed: ED X Medical Floor Patient s prior to admit medication and over the counter (OTC) medications/herbal supplem ents list obtained from: X Verbal interview X Patient UNABLE to recall name, strength, and direction X Pharmacy list names: [facility] insurance reported information X Outside Information Vaccines up to date? 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 Jiang >1 year ago. Unable to find any documentation to support this Furosemide 80 mg tab 1 tab by mouth daily 1 tab by mouth four times weekly Does not take on dialysis days (Sunday, Sunday and Sunday) because he thinks it is a w aste. Insulin glargine 100 units/mL inj 55 units under the skin twice daily 25 units under the s kin daily as needed for high blood sugar Patient states his blood sugars drop too low at higher dose. Patient last filled Vials #30 mL Metoprolol succinate 100 mg tab 0.5 mg by mouth daily Patient is unsure if he is taking. He states he does take a medication for blood pressure but he does not recall the name. H e states he is taking 1 whole tablet. Last filled: 07/30/18 #30 tabs for 30 day supply Sucroferric oxyhydroxide 500 mg chew tab 1 tab by mouth four times daily before meals and n ightly 1 tab by mouth daily if he remembers. Last filled: 09/15/17 #30 tabs. Patient states he forgets often. 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 Provider amoxicillin-clavulanate (AUGMENTIN) 500-125 mg per tablet Take 1.5 tablets by mouth Daily. Indications: Infection Under the Skin 35 tablet Blue Morrow MD apixaban (ELIQUIS) 5 mg tablet Take 2.5 mg by mouth 2 times daily. Taking Historical Prov MD Arian bustamante-C-Folic Acid (OLEG-TEQUILA RX) 1 MG TABS Take 1 mg by mouth Daily. Taking 30 each C helajacqueline Osei Fackenthall DATA COMMUNICATIONS TECHNICIAN Cholecalciferol (VITAMIN D3) 5000 UNITS CAPS Take 5,000 Units by mouth Daily. Taking Hist orical Provider, cinacalcet (SENSIPAR) 60 MG tablet Take 1 tablet by mouth Daily. Patient not taking: Repo rted on 01/11/2019 Not Taking 30 tablet Uche Orozco DO doxercalciferol (HECTOROL) 2 mcg/mL injection Inject 10 mcg into the vein Three times a we ek. Taking Historical ProviderMD epoetin padilla (EPOGEN, PROCRIT) 10,000 units/mL injection Inject 6,800 Units into the vein Three times a week. Taking Historical ProviderMD furosemide (LASIX) 80 mg tablet Take 80 mg by mouth Daily. Taking Differently Historical Provider, ibuprofen (ADVIL, MOTRIN) 200 mg tablet Take 400 mg by mouth Twice daily as needed for Pa in. Taking Historical Provider, insulin glargine (LANTUS) 100 units/mL injection (vial) Inject 55 Units under the skin 2 t imes daily. Taking Cristina Quinones PA-C loperamide (ANTI-DIARRHEAL) 2 MG tablet Take 2 mg by mouth 4 times daily as needed for Kassandra rrhea. Taking Historical ProviderMD metoprolol succinate (TOPROL-XL) 100 mg ER tablet Take 0.5 tablets by mouth Daily. 30 tab let Uche Orozco DO omeprazole (PRILOSEC) 20 mg capsule Take 20 mg by mouth Daily as needed (for stomach). Tobin ing Differently Historical Provider, rosuvastatin (CRESTOR) 20 mg tablet Take 20 mg by mouth Daily. Taking Historical Provider , sucroferric oxyhydroxide (VELPHORO) 500 mg chewable tablet Take 1 tablet by mouth 4 times daily (before meals and nightly). Patient taking differently: Take 500 mg by mouth Daily. W hen he remembers Taking Differently Uche Orozco DO Medication review performed and electronically signed by Lilian Kinney, Strapper Operator 01/11/2019 13:17 Reviewed by Vale Rojas PharmD 01/11/2019 14:39 Edel, Lexi Banks MD - 01/11/2019 10:15 AM PDT [facility] NEPHROLOGY progress note Patient: Celso Caro : 1960 Hospital Day # 3 ASSESMENT AND PLAN 1. End-stage renal disease, on hemodialysis. Access: Left upper arm AVF. -Dialysis today x 5 hrs, then ok to discharge if clinically ready. Pt instructed to contin ue regular outpatient dialysis schedule, next treatment is on 01/13/19. 2. Hypertension. BP is stable. -Goal UF set at 2000 mL. 3. Osteomyelitis of 4th left toe, s/p toe amputation. Pt has been advised to proceed with transmetatarsal amputation by Dr. Sahni. Pt is not willing to at this time. Pt will f/u with Podiatry as outpatient. -Plan to d/c on oral abx x 2 weeks. 4. Atrial flutter/fib. On metoprolol for rate control. Continue Eliquis 2.5 mg BID for anti-coagulation upon discharge. 5. Anemia due to ESRD. 6. 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 24 HR EVENTS S/p amputation of left 4th toe SUBJECTIVE Pt states he is feeling well. Pain is under control. Pt reports he is still having loose stools. C diff DNA was negative. Pt took some Imodium this morning. No shortness of breat h, chest pain. CURRENT MEDICATIONS Scheduled Meds: ceFAZolin 1 g Intravenous Daily cholecalciferol 2,000 Units Oral Daily furosemide 80 mg Oral Daily heparin 500 Units Intravenous With each dialysis insulin glargine 25 Units Subcutaneous Nightly insulin lispro 0-6 Units Subcutaneous 4x Daily WC and HS metoprolol tartrate 25 mg Oral 4 times per day pantoprazole 40 mg Oral QAM AC rosuvastatin 20 mg Oral Daily sevelamer carbonate 1,600 mg Oral TID WC Continuous Infusions: Heparin Infusion 200 Units/hr (01/11/19 0809) lactated ringers PRN Meds:acetaminophen, albumin, calcium carbonate, Hypoglycemia Management AND POCT G lucose AND dextrose, HYDROcodone-acetaminophen, loperamide, melatonin, metoclopramide, m etoprolol tartrate, ondansetron, polyethylene glycol, senna, sodium chloride 0.9% OBJECTIVE VITAL SIGNS: Vital sign ranges for last 24hrs: Input and output for last 24hrs: Temp: [35.7 C (96.3 F)-36.9 C (98.4 F)] 36.9 C (98.4 F) Pulse: [79-103] 101 Resp: [14-20] 18 BP: (99-135)/(54-88) 133/75 SpO2 Av.7 % Min: 92 % Max: 97 % 01/10 07 - 01/11 0700 In: 550 [P.O.:250; I.V.:250] Out: - General: In no acute distress Cardiac: Irregularly irregular. 1+ pitting LLE and trace pitting RLE peripheral edema. Chest: Normal respiratory effort. Clear to auscultation. Abdomen: Soft, non-distended, non-tender, normal bowel sounds. Neuro: Alert, interactive. Psych: Normal affect. Normal speech. Access: Left upper AVF cannulated with two needles. LABORATORY DATA: Recent Labs Lab 01/10/19 0535 01/09/19 0548 01/08/19 1636 WBC 7.1 8.8 10.8 HGB 11.1* 10.9* 11.7* HCT 34.2* 33.7* 35.6* PLT 271 244 265 Recent Labs Lab 01/10/19 0535 01/09/19 0548 01/08/19 1636 NA 134* 134* 134* K 4.4 4.5 4.3 CL 97* 94* 94* CO2 27 28 29 BUN 42* 54* 44* CREA 6.71* 7.98* 7.12* CALCIUM 8.4* 8.8 9.0 PHOS -- 7.1* -- ALBUMIN -- -- 3.9 GLU 103 74 94 No results for input(s): MG in the last 168 hours. Diagnostic Studies: Available data and images were reviewed personally. Significant results and findings are ad dressed here or in the Assessment and Plan. Lexi Kuo MD Electronically signed: 01/11/2019 10:16 [facility] Cristina Sotelo DPM - 01/11/2019 9:11 AM PDT Foot & Ankle Surgery Progress Note Cristina Sahni DP Celso Sutton Case Age/Gender 58 y.o. male Location [facility] MEDICAL Attending Estiven Ramirez MD Hosp Day # 3 PCP Cristina Quinones PA-C Date of Surgery: 01/10/2019 Post Operative Day: 1 Procedure: Left fourth toe amputation Subjective: Pt is laying in bed while access for dialysis is performed. His nurse and him report having less pain in the left lower extremity. Denies any recent fevers/chills. Objective: VASC: DP is 2/4; PT is 2/4; CFT is less than 3 seconds. With digital hair present on hallu x. NEURO: Gross protective sensation is intact. MSK: With surgical excision of toes 2,3,4 on the left foot. DERM: Swelling of the leg and foot are improved. The dressing is intact and without strike through. The dressings are left intact. Recent Labs 01/10/19 0535 01/09/19 0548 01/08/19 1636 WBC 7.1 8.8 10.8 HCT 34.2* 33.7* 35.6* HGB 11.1* 10.9* 11.7* PLT 271 244 265 GLU 103 74 94 Microbiology Results (24 hrs) Procedure Component Value Units Date/Time Culture, Wound, Smear, w/Anaerobe [[id number]] Collected: 01/10/191529 Order Status: Sent Lab Status: In process Updated: 01/10/191610 Specimen: Tissue from Toe, Fourth, Left Narrative: The following orders were created for panel order Culture, Wound, Smear, w/Anaerobe. Procedure Abnormality Status --------- ------ Culture, Wound, Smear[[id number]] Normal Preliminary result Culture, Anaerobic[[id number]] In process Please view results for these tests on the individual orders. Culture, Wound, Smear [[id number]] (Normal) Collected: 01/10/191529 Order Status: Completed Lab Status: Preliminary result Updated: 01/11/19 08 Specimen: Tissue from Toe, Fourth, Left Culture No growth to date Gram Stain Result 2+ White Blood Cells No squamous epithelial cells seen No organisms seen Culture, Anaerobic [[id number]] Collected: 01/10/191529 Order Status: Resulted Lab Status: In process Updated: 01/10/191610 Specimen: Tissue from Toe, Fourth, Left Assessment: Celso Sutton Case is a 58 y.o. male S/p toe amputation for osteomyelitis. Currently with imp roved pain and swelling after procedure. Plan: Dressing may be left intact until post op appointment on at [facility]. Okay to place weight on left heel Will d/c on 2 week oral antibiotic regimen. (09/07/2018 infection grew MRSA) We have discussed likely outcomes for his foot following this surgery. Have recommended he proceed with a transmetatarsal amputation. We will continue to discuss and perform work up f or this in outpatient setting. Dispo: Stable for discharge from podiatry standpoint Cristina Sahni DPM 9:11; 01/11/2019 Val Hoffman Ph armD - 01/10/2019 6:24 PM PDT RENAL DOSE ADJUSTMENT PER PHARMACY PROTOCOL: Subjective/Objective: Celso Sutton Case is a 58 y.o. year old male admitted on 01/08/2019 16:06 for s/p 4th toe amput ation and is receiving cefazolin. BP 107/75 Comment: sitting up on edge of bed | Pulse 96 | Temp 36.2 C (97.2 F) (Axilla ry) | Resp 18 | Ht 1.854 m (6' 1") | Wt 118.4 kg (261 lb 0.4 oz) | SpO2 96% | BMI 34.44 kg/m Intake/Output Summary (Last 24 hours) at 01/10/19 1825 Last data filed at 01/10/19 1610 Gross per 24 hour Intake 350 ml Output 172 ml Net 178 ml Recent Labs Lab 01/10/19 0535 01/09/19 0548 01/08/19 1636 CREA 6.71* 7.98* 7.12* Estimated Creatinine Clearance: 16 mL/min (A) (based on SCr of 6.71 mg/dL (H)). Date 01/10 HD no Day of therapy 1 Serum Creatinine 6.71 CrCl (mL/min) 16 Dose - current 2 mg q8hr Dose - new 1 mg q24hr Assessment/Plan: 1. For hemodialysis patient change cefazolin to 1g q24h after HD. 2. Pharmacy will continue to follow and adjust dose as appropriate to clinical condition an d creatinine clearance changes RENAL DOSE ADJUSTMENT PROTOCOL Electronically signed by: Val Longoria, PharmD 01/10/2019 18:25 Adi Finch MD - 01/10/2019 6:12 PM PDTFormatting of this note might be different from the eli zavala HOSPITALIST PROGRESS NOTE Patient: Celso Sutton Case : 1960: Age: 58 y.o. MedRec: [id number] PCP: Cristina Quinones PA-C Admission date: 01/08/2019 Hospital day # : 2 Physician author: Blue Morrow MD Today: 01/10/2019 SUBJECTIVE/ OVERNIGHT EVENTS : No complains Underwent 4th toe amputation today MRSA negative so far ASSESSMENT/PLAN: 1. Cellulitis of left lower extremity with the Osteomyelitis of fourth toe of left foot : h e had 4th toe amputated and his MRSA status was negative and will stop the Vanco and change to Cefazolin , stop the Zosyn too. May get his wound care at [facility] area too after Disc harged. 2. End stage renal disease : Getting his dialysis routinely 3. Dyslipidemia : onCrestor 4. Hypertension : On BB 5. Anemia in ESRD (end-stage renal disease) : Stable 6. Diabetes mellitus, type II, insulin dependent :On insulin 7. DVT Prophylaxis : heparin 8. Code Status : Full Code. DISCHARGE PLAN: Discharge likely in AM Discussed with patient ADMISSION HISTORY : History of the presenting illness :Celso Hall a 58 y.o. male was admitted on 01/09/20 with a history of ESRD (M-W-F), T2DM, HTN, HLD, Atrial Flutter, PAD, h/o recent MRSA lef t 2nd and 3rd toe OM s/p I&D, amputation (Dr. Schuster) and 6 weeks of Vanc/Unasyn who present ed with 2 day h/o left foot swelling/pain/erythema, left fourth toe wound with minimal drain age. + subjective fever/chills. Pt initially went to [facility] and was then sent t o the ER. Pt was supposed to have a follow up with Dr. Schuster sometime in mid december however patient missed the appointment. Pt missed his HD today. He has no other complains. Denies CP /SOB/abdominal pain/diarrhea/dysuria. MEDICATIONS: cholecalciferol 2,000 Units Oral Daily furosemide 80 mg Oral Daily insulin glargine 25 Units Subcutaneous Nightly insulin lispro 0-6 Units Subcutaneous 4x Daily WC and HS metoprolol tartrate 25 mg Oral 4 times per day pantoprazole 40 mg Oral QAM AC piperacillin-tazobactam 3.375 g Intravenous Q12H rosuvastatin 20 mg Oral Daily sevelamer carbonate 1,600 mg Oral TID WC vancomycin per pharmacy Other Pharmacy Consult OBJECTIVE: Vitals: 01/10/19 1605 01/10/19 1637 01/10/19 1700 01/10/19 1807 BP: 103/74 135/86 123/88 107/75 Pulse: 100 98 103 96 Resp: 16 16 16 18 Temp: 35.7 C (96.3 F) 36.2 C (97.2 F) TempSrc: Oral Axillary SpO2: 96% 96% 97% 96% Weight: Height: Weight: 122.5 kg (270 lb) I/O last 3 completed shifts: In: 1361 [P.O.:1080; I.V.:16; IV Piggyback:265] Out: 2503 I/O this shift: In: 250 [I.V.:250] Out: - PHYSICAL Exam : Gen Emiliano - alert, cooperative and no distress Head - Normocephalic, without obvious abnormality, atraumatic Eyes - PERRL, conjunctiva/corneas clear, EOM's intact both eyes ENT - mucous membranes moist Neck - supple Lungs - clear to auscultation, no wheezes or rales and unlabored breathing Heart - normal rate, regular rhythm, normal S1, S2, no murmurs, rubs, clicks or gallops Abdomen - soft, non-tender, without masses or organomegaly Extremities - no peripheral edema, no clubbing or cyanosis Skin - has concern looking 4th toe on the left foot Neurologic - Alert and oriented x 3. CN II-XII intact. LABS & IMAGING: reviewed Recent Results (from the past 48 hour(s)) POC Glucose Collection Time: 01/08/19 18:22 Result Value Ref Range Glucose, POC 100 70 - 109 mg/dL POC Glucose Collection Time: 01/08/19 22:37 Result Value Ref Range Glucose, POC 125 (H) 70 - 109 mg/dL Basic Metabolic Panel Collection Time: 01/09/19 5:48 Result Value Ref Range Na 134 (L) 136 - 145 mmol/L K 4.5 3.4 - 5.1 mmol/L Cl 94 (L) 98 - 107 mmol/L CO2 28 20 - 31 mmol/L Anion Gap 12 3 - 16 mmol/L Glucose 74 60 - 106 mg/dL BUN 54 (H) 9 - 23 mg/dL Creatinine 7.98 (HH) 0.70 - 1.30 mg/dL eGFR if not 7 (L) >=60 mL/min/1.73m2 Ca 8.8 8.7 - 10.4 mg/dL BUN/Creatinine Ratio 6.8 CBC with Differential Collection Time: 01/09/19 5:48 Result Value Ref Range WBC 8.8 4.0 - 11.0 K/uL RBC 3.81 (L) 4.30 - 5.70 M/uL Hemoglobin 10.9 (L) 13.5 - 18.0 g/dL Hematocrit 33.7 (L) 40.0 - 51.0 % MCV 88.5 83.0 - 101.0 fL MCH 28.6 28.0 - 35.0 pg MCHC 32.3 32.0 - 36.0 g/dL RDW-CV 18.3 (H) <15.0 % RDW-SD 59.7 (H) 35.1 - 46.3 fL Platelet Count 244 140 - 440 K/uL MPV 9.4 6.5 - 12.4 fL % Neutrophils 66.4 45.0 - 82.0 % % Lymphocytes 20.2 20.0 - 45.0 % % Monocytes 11.4 4.0 - 12.0 % % Eosinophils 0.8 0.0 - 5.0 % % Basophils 0.9 0.0 - 1.0 % % Immature Granulocytes 0.3 0.0 - 0.4 % Absolute Neutrophils 5.86 1.80 - 8.50 K/uL Absolute Lymphocytes 1.78 0.60 - 3.20 K/uL Absolute Monocytes 1.01 (H) 0.00 - 1.00 K/uL Absolute Eosinophils 0.07 0.00 - 0.40 K/uL Absolute Basophils 0.08 0.00 - 0.10 K/uL Absolute Immature Granulocytes 0.03 0.00 - 0.03 K/uL % nRBC 0 0 - 2 per 100 WBCs Absolute nRBC 0.00 0.00 - 0.01 K/uL Phosphorus Collection Time: 01/09/19 5:48 Result Value Ref Range Phosphorus 7.1 (H) 2.4 - 5.1 mg/dL Culture, MRSA Collection Time: 01/09/19 6:00 Result Value Ref Range Culture Negative for MRSA by chromogenic agar method Culture, Wound, Smear Collection Time: 01/09/19 6:00 Result Value Ref Range Culture 2+ Gram Positive Cocci Gram Stain Result 1+ White Blood Cells Gram Stain Result 2+ Epithelial cells Gram Stain Result No organisms seen POC Glucose Collection Time: 01/09/19 6:45 Result Value Ref Range Glucose, POC 68 (L) 70 - 109 mg/dL POC Glucose Collection Time: 01/09/19 12:35 Result Value Ref Range Glucose, POC 87 70 - 109 mg/dL POC Glucose Collection Time: 01/09/19 17:38 Result Value Ref Range Glucose, POC 89 70 - 109 mg/dL POC Glucose Collection Time: 01/09/19 21:36 Result Value Ref Range Glucose, POC 108 70 - 109 mg/dL Vancomycin Level Collection Time: 01/09/19 22:58 Result Value Ref Range DATE OF LAST DOSE TIME OF LAST DOSE Vancomycin Random 11.5 5.0 - 40.0 ug/mL Clostridium difficile Collection Time: 01/10/19 1:52 Result Value Ref Range Clostridium difficile DNA Negative Negative CBC with Differential Collection Time: 01/10/19 5:35 Result Value Ref Range WBC 7.1 4.0 - 11.0 K/uL RBC 3.85 (L) 4.30 - 5.70 M/uL Hemoglobin 11.1 (L) 13.5 - 18.0 g/dL Hematocrit 34.2 (L) 40.0 - 51.0 % MCV 88.8 83.0 - 101.0 fL MCH 28.8 28.0 - 35.0 pg MCHC 32.5 32.0 - 36.0 g/dL RDW-CV 18.3 (H) <15.0 % RDW-SD 59.8 (H) 35.1 - 46.3 fL Platelet Count 271 140 - 440 K/uL MPV 9.4 6.5 - 12.4 fL % Neutrophils 62.9 45.0 - 82.0 % % Lymphocytes 21.0 20.0 - 45.0 % % Monocytes 12.3 (H) 4.0 - 12.0 % % Eosinophils 2.7 0.0 - 5.0 % % Basophils 0.8 0.0 - 1.0 % % Immature Granulocytes 0.3 0.0 - 0.4 % Absolute Neutrophils 4.45 1.80 - 8.50 K/uL Absolute Lymphocytes 1.49 0.60 - 3.20 K/uL Absolute Monocytes 0.87 0.00 - 1.00 K/uL Absolute Eosinophils 0.19 0.00 - 0.40 K/uL Absolute Basophils 0.06 0.00 - 0.10 K/uL Absolute Immature Granulocytes 0.02 0.00 - 0.03 K/uL % nRBC 0 0 - 2 per 100 WBCs Absolute nRBC 0.00 0.00 - 0.01 K/uL Basic Metabolic Panel Collection Time: 01/10/19 5:35 Result Value Ref Range Na 134 (L) 136 - 145 mmol/L K 4.4 3.4 - 5.1 mmol/L Cl 97 (L) 98 - 107 mmol/L CO2 27 20 - 31 mmol/L Anion Gap 10 3 - 16 mmol/L Glucose 103 60 - 106 mg/dL BUN 42 (H) 9 - 23 mg/dL Creatinine 6.71 (H) 0.70 - 1.30 mg/dL eGFR if not 9 (L) >=60 mL/min/1.73m2 Ca 8.4 (L) 8.7 - 10.4 mg/dL BUN/Creatinine Ratio 6.3 POC Glucose Collection Time: 01/10/19 6:43 Result Value Ref Range Glucose, POC 95 70 - 109 mg/dL POC Glucose Collection Time: 01/10/19 11:56 Result Value Ref Range Glucose, POC 115 (H) 70 - 109 mg/dL POC Glucose Collection Time: 01/10/19 17:07 Result Value Ref Range Glucose, POC 69 (L) 70 - 109 mg/dL Mri Foot Left Wo Contrast Result Date: 01/09/2019 UNENHANCED MRI LEFT FOOT 01/09/2019 11:57 AM CLINICAL HISTORY: LLE cellulitis, r/o osteomyeli tis COMPARISON: Radiographs the previous day, MRI and radiographs August 2018 TECHNIQU E: The following 3T MR sequences of the left foot were obtained: 1. Axial and sagittal T1 an d STIR. 2. Coronal T1. The patient was too uncomfortable to complete coronal STIR imaging. FINDINGS: Several sequences are somewhat degraded by motion. Changes of transmetatarsal amp utation of the second and third digits are again apparent. There is some ill-definition dist ally within the residual second and third metatarsals, and some marrow edema is visible as w ell. A focal defect is suggested in the plantar cutaneous tissues at this level and there i s thickening and ill-definition of the intervening soft tissues. Ill-defined low signal reg ions in the soft tissues at this level could reflect the presence of gas but are non-specifi c. Some patchy marrow edema is now apparent in the mid to distal fourth metatarsal as well, extending to the articular surface of the metatarsal head. A cutaneous defect is visible d istally in the fourth digit, and there is signal alteration and ill-definition of the underl akira distal phalanx. Some marrow edema is also questioned within the middle phalanx. The f ourth proximal phalanx appears grossly normal. No marrow edema is visible within the first or fifth rays or within the imaged tarsals. There is generalized myofascial and subcutaneou s edema throughout the imaged foot. No defined fluid collection is evident. Evaluation of the tendinous structures is limited. IMPRESSION - 1. ILL-DEFINITION OF THE RESIDUAL SECOND AND THIRD METATARSALS DISTALLY WITH SOME ASSOCIATED MARROW EDEMA AND THICKENING AND ILL-DEFI NITION OF THE UNDERLYING PLANTAR SOFT TISSUES EXTENDING TO A SUSPECTED CUTANEOUS DEFECT. TH IS MAY BE POSTSURGICAL TO SOME DEGREE HOWEVER RESIDUAL OR RECURRENT INFECTION CANNOT BE EXCL UDED. SOME LOW SIGNAL WITHIN THE SOFT TISSUES AT THIS LEVEL COULD REFLECT THE PRESENCE OF G ALTHOUGH THIS WAS NOT CONFIDENTLY VISIBLE ON RECENT RADIOGRAPHY. 2. SOFT TISSUE DEFECT D ISTALLY IN THE FOURTH DIGIT WITH FINDINGS SUSPICIOUS FOR OSTEOMYELITIS INVOLVING THE DISTAL PHALANX AND POSSIBLY THE MIDDLE PHALANX. 3. NEW PATCHY MARROW EDEMA IN THE MID TO DISTAL FO URTH METATARSAL, POSSIBLY A STRESS RESPONSE FROM ALTERED WALKING MECHANICS. OSTEOMYELITIS I S CONSIDERED LESS LIKELY. 4. GENERALIZED MYOFASCIAL AND SUBCUTANEOUS EDEMA SUGGESTING CELLU LITIS AND MYOFASCIITIS, WITHOUT DEFINED FLUID COLLECTION. Dictated and Signed by: Chacorta pillai MD Electronically signed: 01/09/2019 1:02 PM Xr Foot Left 3 + Vw Result Date: 01/09/2019 CLINICAL INFORMATION: Poss. Infection.. COMPARISON: None available. FINDINGS: 3 views of th e left foot. Indication changes of the second and third digits distal to the mid/distal aspe ct of the metatarsals. Extensive periostitis noted at the distal aspect of the remaining se cond and third metatarsals. The periostitis demonstrates irregular margins/erosions. Erosi ve changes are also noted at the distal aspect of the fourth distal phalanx. Diffuse modera te soft tissue swelling. Extensive arterial vascular calcifications. Mild midfoot degenerati ve changes. Calcaneal enthesophytes are noted. IMPRESSION - Findings are compatible with ost eomyelitis involving the fourth digit distal phalanx and distal margin of the partially ampu tated second and third metatarsals. Extensive soft tissue edema most likely represents cell ulitis. Dictated and Signed by: Amilcar Cha MD Electronically signed: 01/09/2019 8:53 AM Blue Morrow 01/10/2019 18:12 Lizzy Magaña, PharmD - 01/10/2019 1:37 PM PDT VANCOMYCIN PER PHARMACY PROTOCOL: AMS/Drug Name - vanco and zosyn Patient: Celso Sutton Case [id number] Admit: 01/08/2019 16:06 RELEVANT ALLERGIES: no relevant 58 yrs old male patient admitted on 01/08/2019 for foot swelling and fever. Patient is rece iving vancomycin starting on 01/08/19 for left foot wound. Patient has a past medical history of Arthritis (09/15/2012); BPH with urinary obstruction; Diabetes mellitus, type 2 ([facility]) (); Diabetic foot ulcer ([facility]) (01/01/12); ESRD (end stage renal disease) on dialysis ([facility]) ( 1999); Heart murmur; Hepatitis C (2006); Hyperlipidemia; Hypertension (2001); Obesity; Parox ysmal atrial flutter ([facility]); Recurrent UTI; and Vitamin D deficiency. . Risk factors for MDR organisms include recent healthcare contact, h/o MRSA, h/o Psudomonas and h/o resistant orga nism. HPI: presents with left lower extremity erythema and swelling. Patient noticed the redness and swelling yesterday evening. Started on the dorsum of his foot but has been climbing up to his mid leg. There is some fevers. Has had recurrent cellulitis in that lower extremity . Antimicrobials - Current Antibiotic Dates of Therapy vanco 4/3- zosyn 4/3- Antimicrobials - Discontinued Antibiotic Dates of Therapy Historical Vancomycin dosing (previous & current encounter): pulse dosing 500 to 1500mg. Micro/Cultures/Diagnostics: Microbiology Results (Last 14 Days by Collected Date with Culture/Sensitivity) Procedure Component Value Units Date/Time Clostridium difficile [[id number]] (Normal) Collected: 01/10/19 0152 Order Status: Completed Lab Status: Final result Updated: 01/10/19 0504 Specimen: Stool from Stool Clostridium difficile DNA Negative Culture, MRSA [[id number]] (Normal) Collected: 01/09/19 0600 Order Status: Completed Lab Status: Final result Updated: 01/10/19 0821 Specimen: Tissue from Leg, Left Culture Negative for MRSA by chromogenic agar method Culture, Wound, Smear, w/Anaerobe [[id number]] Collected: 01/09/19599 Order Status: Sent Lab Status: In process Updated: 01/09/19637 Specimen: Tissue from Toe, Fourth, Left Narrative: The following orders were created for panel order Culture, Wound, Smear, w/Anaerobe. Procedure Abnormality Status --------- ------ Culture, Wound, Smear[[id number]] Preliminary result Culture, Anaerobic[[id number]] In process Please view results for these tests on the individual orders. Culture, Wound, Smear [[id number]] Collected: 01/09/19599 Order Status: Completed Lab Status: Preliminary result Updated: 01/10/19 110 Specimen: Tissue from Leg, Left Culture 2+ Gram Positive Cocci Comment: Isolating for additional information. Gram Stain Result 1+ White Blood Cells 2+ Epithelial cells No organisms seen Culture, Anaerobic [[id number]] Collected: 01/09/19599 Order Status: Sent Lab Status: In process Updated: 01/09/19637 Specimen: Tissue from Toe, Fourth, Left Culture, Blood [[id number]] (Normal) Collected: 01/08/19 1644 Order Status: Completed Lab Status: Preliminary result Updated: 01/09/19450 Specimen: Blood from Peripheral Blood Culture No growth: Monitored continually by instrument for 5 days Culture, Blood [[id number]] (Normal) Collected: 01/08/19 1636 Order Status: Completed Lab Status: Preliminary result Updated: 01/09/19450 Specimen: Blood from Peripheral Blood Culture No growth: Monitored continually by instrument for 5 days Relevant cultures from previous admits: Date Source Organisms Sensitivities 09/07/18 Wound MRSA s-clinda, vanco, linezolid, tetracycline, septra. R all others tested 09/05/18 blood MRSA S-clinda,linezolid, tetra, septra, vanco. R all others tested 06/26/13 wound Pseudomonas a R- ampicillin, unasyn, cefaz, ceftri. S ceftaz,cipro, gent, me ro, tobra wound Klebsiella oxytoca S to everything except ampicillin UA: none Admission Wt: Weight: 122.5 kg (270 lb) Current Wt: Weight: 118.4 kg (261 lb 0.4 oz) Min/Max Temp past 24 hours:Temp Av.4 C (97.6 F) Min: 36.1 C (96.9 F) Max: 3 7 C (98.6 F) Estimated Creatinine Clearance: 16 mL/min (A) (based on SCr of 6.71 mg/dL (H)). Intake/Output Summary (Last 24 hours) at 01/10/19 1337 Last data filed at 01/10/19 0830 Gross per 24 hour Intake 296 ml Output 2503 ml Net -2207 ml Temp: [36.1 C (96.9 F)-37 C (98.6 F)] 36.3 C (97.4 F) Pulse: [84-128] 95 Resp: [17-20] 20 BP: (103-150)/(74-93) 109/75 Recent Labs Lab 01/10/19 0535 01/09/19 2258 01/09/19 0548 01/08/19 1636 WBC 7.1 -- 8.8 10.8 CREA 6.71* -- 7.98* 7.12* LACTATE -- -- -- 0.8 VANCORANDOM -- 11.5 -- -- PROCALCITONI -- -- -- 0.98* Imaging: none Date 01/08 01/09 01/10 Dialysis (yes/no) n y n Vancomycin level 11.5 - Vancomycin Dose 1500 mg 500 - Assessment: Vancomycin Day # 3 Other antibiotics: zosyn Target Trough: 13-17 for SSTI of left foot WBC: WNL; Renal: end stage renal disease- HD patient; Temp: afebrile x24hr ; Culture: bl ood: ngtd; Tissue from toe sent; Tissue from le+ GPC; MRSA nares negative; VS: tachycard ia (h/o aflutter) Prior to admission dialysis schedule: [facility] Vancomycin Dosing in HD patients: If post-hemodialysis vancomycin concentration is: - >20 mcg/mL: hold post-HD dose - 10-20 mcg/mL: 500 mg after HD - <10 mcg/mL: 750-1000 mg after HD Plan: 1. Vancomycin level to be ordered ~4-6 hours post next dialysis to allow for fluid redistr ibution on 01/11 2. Serum creatinine DAILY for first 3 days, then at least every 3 days while on vancomycin. 3. Will monitor renal function, clinical status, infection markers daily with troughs and d ose adjustment as needed. Definitions: For the purpose of this protocol, "trough" means a steady state trough before the 4th dose of the initial/new dosing regimen and "level" means all other levels drawn including before the 3rd dose References: Vancomycin dosing protocol IDSA guidelines Procalcitonin Algorithm Per P&T-approved Vancomycin Dosing and Monitoring Protocol Lizzy Magaña PharmD 01/10/2019 13:38 Norma Finch MD - 01/09/2019 4:35 PM PDTFormatting of this note might be different from the brady peacock. HOSPITALIST PROGRESS NOTE Patient: Celso Caro : 1960: Age: 58 y.o. MedRec: [id number] PCP: Cristina Quinones PA-C Admission date: 01/08/2019 Hospital day # : 1 Physician author: Blue Morrow MD Today: 01/09/2019 SUBJECTIVE/ OVERNIGHT EVENTS : He has no complains of His wound is dry but was dressed Culture Pending Getting dialysis now ADMISSION HISTORY : History of the presenting illness :Celso Hall a 58 y.o. 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 Schuster) and 6 weeks of Vanc/Unasyn who present ed with 2 day h/o left foot swelling/pain/erythema, left fourth toe wound with minimal drain age. + subjective fever/chills. Pt initially went to [facility] and was then sent t o the ER. Pt was supposed to have a follow up with Dr. Schuster sometime in mid december however patient missed the appointment. Pt missed his HD today. He has no other complains. Denies CP /SOB/abdominal pain/diarrhea/dysuria. MEDICATIONS: cholecalciferol 2,000 Units Oral Daily furosemide 80 mg Oral Daily heparin 500 Units Intravenous With each dialysis insulin glargine 25 Units Subcutaneous Nightly insulin lispro 0-6 Units Subcutaneous 4x Daily WC and HS metoprolol tartrate 25 mg Oral 4 times per day pantoprazole 40 mg Oral QAM AC piperacillin-tazobactam 3.375 g Intravenous Q12H rosuvastatin 20 mg Oral Daily sevelamer carbonate 1,600 mg Oral TID WC vancomycin per pharmacy Other Pharmacy Consult OBJECTIVE: Vitals: 01/09/19 1615 01/09/19 1620 01/09/19 1625 01/09/19 1630 BP: 130/81 137/83 Pulse: 84 92 88 89 Resp: 18 Temp: TempSrc: SpO2: 95% 96% Weight: Height: Weight: 122.5 kg (270 lb) I/O last 3 completed shifts: In: 605 [P.O.:240; IV Piggyback:365] Out: - I/O this shift: In: 560 [P.O.:560] Out: 1263 PHYSICAL Exam : Gen Emiliano - alert, cooperative and no distress Head - Normocephalic, without obvious abnormality, atraumatic Eyes - PERRL, conjunctiva/corneas clear, EOM's intact both eyes ENT - mucous membranes moist Neck - supple Lungs - clear to auscultation, no wheezes or rales and unlabored breathing Heart - normal rate, regular rhythm, normal S1, S2, no murmurs, rubs, clicks or gallops Abdomen - soft, non-tender, without masses or organomegaly Extremities - no peripheral edema, no clubbing or cyanosis Skin - has concern looking 4th toe on the left foot Neurologic - Alert and oriented x 3. CN II-XII intact. LABS & IMAGING: reviewed Recent Results (from the past 48 hour(s)) POC Glucose Collection Time: 01/08/19 16:33 Result Value Ref Range Glucose, POC 93 70 - 109 mg/dL CBC with Differential Collection Time: 01/08/19 16:36 Result Value Ref Range WBC 10.8 4.0 - 11.0 K/uL RBC 4.03 (L) 4.30 - 5.70 M/uL Hemoglobin 11.7 (L) 13.5 - 18.0 g/dL Hematocrit 35.6 (L) 40.0 - 51.0 % MCV 88.3 83.0 - 101.0 fL MCH 29.0 28.0 - 35.0 pg MCHC 32.9 32.0 - 36.0 g/dL RDW-CV 18.1 (H) <15.0 % RDW-SD 58.8 (H) 35.1 - 46.3 fL Platelet Count 265 140 - 440 K/uL MPV 9.0 6.5 - 12.4 fL % Neutrophils 72.9 45.0 - 82.0 % % Lymphocytes 17.6 (L) 20.0 - 45.0 % % Monocytes 8.4 4.0 - 12.0 % % Eosinophils 0.1 0.0 - 5.0 % % Basophils 0.7 0.0 - 1.0 % % Immature Granulocytes 0.3 0.0 - 0.4 % Absolute Neutrophils 7.85 1.80 - 8.50 K/uL Absolute Lymphocytes 1.89 0.60 - 3.20 K/uL Absolute Monocytes 0.90 0.00 - 1.00 K/uL Absolute Eosinophils 0.01 0.00 - 0.40 K/uL Absolute Basophils 0.08 0.00 - 0.10 K/uL Absolute Immature Granulocytes 0.03 0.00 - 0.03 K/uL % nRBC 0 0 - 2 per 100 WBCs Absolute nRBC 0.00 0.00 - 0.01 K/uL Comprehensive Metabolic Panel Collection Time: 01/08/19 16:36 Result Value Ref Range Na 134 (L) 136 - 145 mmol/L K 4.3 3.4 - 5.1 mmol/L Cl 94 (L) 98 - 107 mmol/L CO2 29 20 - 31 mmol/L Anion Gap 11 3 - 16 mmol/L Glucose 94 60 - 106 mg/dL BUN 44 (H) 9 - 23 mg/dL Creatinine 7.12 (H) 0.70 - 1.30 mg/dL eGFR if not 8 (L) >=60 mL/min/1.73m2 Ca 9.0 8.7 - 10.4 mg/dL Albumin 3.9 3.2 - 4.8 g/dL Bilirubin Total 0.9 0.3 - 1.2 mg/dL Total Protein 7.7 5.7 - 8.2 g/dL AST 21 0 - 34 U/L ALT 9 (L) 10 - 49 U/L Alkaline Phosphatase 242 (H) 46 - 116 U/L Globulin 3.8 2.1 - 3.8 g/dL Albumin/Globulin Ratio 1.0 0.8 - 1.9 BUN/Creatinine Ratio 6.2 Lactic Acid Collection Time: 01/08/19 16:36 Result Value Ref Range Lactate 0.8 0.4 - 2.0 mmol/L Culture, Blood Collection Time: 01/08/19 16:36 Result Value Ref Range Culture No growth: Monitored continually by instrument for 5 days Procalcitonin Collection Time: 01/08/19 16:36 Result Value Ref Range Procalcitonin 0.98 (H) <=0.50 ng/mL Comment Culture, Blood Collection Time: 01/08/19 16:44 Result Value Ref Range Culture No growth: Monitored continually by instrument for 5 days POC Glucose Collection Time: 01/08/19 18:22 Result Value Ref Range Glucose, POC 100 70 - 109 mg/dL POC Glucose Collection Time: 01/08/19 22:37 Result Value Ref Range Glucose, POC 125 (H) 70 - 109 mg/dL Basic Metabolic Panel Collection Time: 01/09/19 5:48 Result Value Ref Range Na 134 (L) 136 - 145 mmol/L K 4.5 3.4 - 5.1 mmol/L Cl 94 (L) 98 - 107 mmol/L CO2 28 20 - 31 mmol/L Anion Gap 12 3 - 16 mmol/L Glucose 74 60 - 106 mg/dL BUN 54 (H) 9 - 23 mg/dL Creatinine 7.98 (HH) 0.70 - 1.30 mg/dL eGFR if not 7 (L) >=60 mL/min/1.73m2 Ca 8.8 8.7 - 10.4 mg/dL BUN/Creatinine Ratio 6.8 CBC with Differential Collection Time: 01/09/19 5:48 Result Value Ref Range WBC 8.8 4.0 - 11.0 K/uL RBC 3.81 (L) 4.30 - 5.70 M/uL Hemoglobin 10.9 (L) 13.5 - 18.0 g/dL Hematocrit 33.7 (L) 40.0 - 51.0 % MCV 88.5 83.0 - 101.0 fL MCH 28.6 28.0 - 35.0 pg MCHC 32.3 32.0 - 36.0 g/dL RDW-CV 18.3 (H) <15.0 % RDW-SD 59.7 (H) 35.1 - 46.3 fL Platelet Count 244 140 - 440 K/uL MPV 9.4 6.5 - 12.4 fL % Neutrophils 66.4 45.0 - 82.0 % % Lymphocytes 20.2 20.0 - 45.0 % % Monocytes 11.4 4.0 - 12.0 % % Eosinophils 0.8 0.0 - 5.0 % % Basophils 0.9 0.0 - 1.0 % % Immature Granulocytes 0.3 0.0 - 0.4 % Absolute Neutrophils 5.86 1.80 - 8.50 K/uL Absolute Lymphocytes 1.78 0.60 - 3.20 K/uL Absolute Monocytes 1.01 (H) 0.00 - 1.00 K/uL Absolute Eosinophils 0.07 0.00 - 0.40 K/uL Absolute Basophils 0.08 0.00 - 0.10 K/uL Absolute Immature Granulocytes 0.03 0.00 - 0.03 K/uL % nRBC 0 0 - 2 per 100 WBCs Absolute nRBC 0.00 0.00 - 0.01 K/uL Phosphorus Collection Time: 01/09/19 5:48 Result Value Ref Range Phosphorus 7.1 (H) 2.4 - 5.1 mg/dL POC Glucose Collection Time: 01/09/19 6:45 Result Value Ref Range Glucose, POC 68 (L) 70 - 109 mg/dL POC Glucose Collection Time: 01/09/19 12:35 Result Value Ref Range Glucose, POC 87 70 - 109 mg/dL Mri Foot Left Wo Contrast Result Date: 01/09/2019 UNENHANCED MRI LEFT FOOT 01/09/2019 11:57 AM CLINICAL HISTORY: LLE cellulitis, r/o osteomyeli tis COMPARISON: Radiographs the previous day, MRI and radiographs August 2018 TECHNIQU E: The following 3T MR sequences of the left foot were obtained: 1. Axial and sagittal T1 an d STIR. 2. Coronal T1. The patient was too uncomfortable to complete coronal STIR imaging. FINDINGS: Several sequences are somewhat degraded by motion. Changes of transmetatarsal amp utation of the second and third digits are again apparent. There is some ill-definition dist ally within the residual second and third metatarsals, and some marrow edema is visible as w ell. A focal defect is suggested in the plantar cutaneous tissues at this level and there i s thickening and ill-definition of the intervening soft tissues. Ill-defined low signal reg ions in the soft tissues at this level could reflect the presence of gas but are non-specifi c. Some patchy marrow edema is now apparent in the mid to distal fourth metatarsal as well, extending to the articular surface of the metatarsal head. A cutaneous defect is visible d istally in the fourth digit, and there is signal alteration and ill-definition of the underl akira distal phalanx. Some marrow edema is also questioned within the middle phalanx. The f ourth proximal phalanx appears grossly normal. No marrow edema is visible within the first or fifth rays or within the imaged tarsals. There is generalized myofascial and subcutaneou s edema throughout the imaged foot. No defined fluid collection is evident. Evaluation of the tendinous structures is limited. IMPRESSION - 1. ILL-DEFINITION OF THE RESIDUAL SECOND AND THIRD METATARSALS DISTALLY WITH SOME ASSOCIATED MARROW EDEMA AND THICKENING AND ILL-DEFI NITION OF THE UNDERLYING PLANTAR SOFT TISSUES EXTENDING TO A SUSPECTED CUTANEOUS DEFECT. TH IS MAY BE POSTSURGICAL TO SOME DEGREE HOWEVER RESIDUAL OR RECURRENT INFECTION CANNOT BE EXCL UDED. SOME LOW SIGNAL WITHIN THE SOFT TISSUES AT THIS LEVEL COULD REFLECT THE PRESENCE OF G ALTHOUGH THIS WAS NOT CONFIDENTLY VISIBLE ON RECENT RADIOGRAPHY. 2. SOFT TISSUE DEFECT D ISTALLY IN THE FOURTH DIGIT WITH FINDINGS SUSPICIOUS FOR OSTEOMYELITIS INVOLVING THE DISTAL PHALANX AND POSSIBLY THE MIDDLE PHALANX. 3. NEW PATCHY MARROW EDEMA IN THE MID TO DISTAL FO URTH METATARSAL, POSSIBLY A STRESS RESPONSE FROM ALTERED WALKING MECHANICS. OSTEOMYELITIS I S CONSIDERED LESS LIKELY. 4. GENERALIZED MYOFASCIAL AND SUBCUTANEOUS EDEMA SUGGESTING CELLU LITIS AND MYOFASCIITIS, WITHOUT DEFINED FLUID COLLECTION. Dictated and Signed by: Chacorta pillai MD Electronically signed: 01/09/2019 1:02 PM Xr Foot Left 3 + Vw Result Date: 01/09/2019 CLINICAL INFORMATION: Poss. Infection.. COMPARISON: None available. FINDINGS: 3 views of th e left foot. Indication changes of the second and third digits distal to the mid/distal aspe ct of the metatarsals. Extensive periostitis noted at the distal aspect of the remaining se cond and third metatarsals. The periostitis demonstrates irregular margins/erosions. Erosi ve changes are also noted at the distal aspect of the fourth distal phalanx. Diffuse modera te soft tissue swelling. Extensive arterial vascular calcifications. Mild midfoot degenerati ve changes. Calcaneal enthesophytes are noted. IMPRESSION - Findings are compatible with ost eomyelitis involving the fourth digit distal phalanx and distal margin of the partially ampu tated second and third metatarsals. Extensive soft tissue edema most likely represents cell ulitis. Dictated and Signed by: mAilcar Cha MD Electronically signed: 01/09/2019 8:53 AM ASSESSMENT/PLAN: Cellulitis of left lower extremity with the Osteomyelitis of fourth toe of left foot : I jefferson ve contracted [employer] and plan to have Amputation. On Vanc and Zosyn End stage renal disease : Getting his dialysis Dyslipidemia : onCrestor Hypertension : On BB Anemia in ESRD (end-stage renal disease) : Stable Diabetes mellitus, type II, insulin dependent :On insulin DVT Prophylaxis : heparin Code Status : Full Code. DISCHARGE PLAN: Discharge in 3-4 days. Discussed with patient Blue Morrow 01/09/2019 16:35 aMarlon harley PharmD - 01/09/2019 9:53 AM PDTFormatting of this note might be different from the liat asif. VANCOMYCIN PER PHARMACY PROTOCOL: AMS/Drug Name - vanco and zosyn Patient: Celso Caro 430/430-01 Admit: 01/08/2019 16:06 RELEVANT ALLERGIES: no relevant 58 yrs old male patient admitted on 01/08/2019 for foot swelling and fever. Patient is rece iving vancomycin starting on 01/08/19 for left foot wound. Patient has a past medical history of Arthritis (09/15/2012); BPH with urinary obstruction; Diabetes mellitus, type 2 (HCC) (); Diabetic foot ulcer (HCC) (01/01/12); ESRD (end stage renal disease) on dialysis ([facility]) ( 1999); Heart murmur; Hepatitis C (2006); Hyperlipidemia; Hypertension (2001); Obesity; Parox ysmal atrial flutter (HCC); Recurrent UTI; and Vitamin D deficiency. . Risk factors for MDR organisms include recent healthcare contact, h/o MRSA, h/o Psudomonas and h/o resistant orga nism. HPI: Celso Case is a 58 y.o. male who presents to the Emergency Department with left lower extremity erythema and swelling. Patient noticed the redness and swelling yesterday evening . Started on the dorsum of his foot but has been climbing up to his mid leg. There is some fevers. He was supposed to get dialysis today but he missed it because he came to us inste ad. Has had recurrent cellulitis in that lower extremity. I admitted him back in late renee. Antimicrobials - Current Antibiotic Dates of Therapy vanco 4/3- zosyn 4/3- Antimicrobials - Discontinued Antibiotic Dates of Therapy Historical Vancomycin dosing (previous & current encounter): pulse dosing 500 to 1500mg. Micro/Cultures/Diagnostics: Microbiology Results (Last 14 Days by Collected Date with Culture/Sensitivity) Procedure Component Value Units Date/Time Clostridium difficile [[id number]] Collected: 01/10/19 0152 Order Status: Sent Lab Status: In process Updated: 01/10/19 020 Specimen: Stool from Stool Culture, MRSA [[id number]] Collected: 01/09/19599 Order Status: Sent Lab Status: In process Updated: 01/09/19637 Specimen: Tissue from Leg, Left Culture, Wound, Smear, w/Anaerobe [[id number]] Collected: 01/09/19599 Order Status: Sent Lab Status: In process Updated: 01/09/19637 Specimen: Tissue from Toe, Fourth, Left Narrative: The following orders were created for panel order Culture, Wound, Smear, w/Anaerobe. Procedure Abnormality Status --------- ------ Culture, Wound, Smear[[id number]] In process Culture, Anaerobic[[id number]] In process Please view results for these tests on the individual orders. Culture, Wound, Smear [[id number]] Collected: 01/09/19599 Order Status: Sent Lab Status: In process Updated: 01/09/19647 Specimen: Tissue from Leg, Left Culture, Anaerobic [[id number]] Collected: 01/09/19599 Order Status: Sent Lab Status: In process Updated: 01/09/19637 Specimen: Tissue from Toe, Fourth, Left Culture, Blood [[id number]] (Normal) Collected: 01/08/19 1644 Order Status: Completed Lab Status: Preliminary result Updated: 01/09/19450 Specimen: Blood from Peripheral Blood Culture No growth: Monitored continually by instrument for 5 days Culture, Blood [[id number]] (Normal) Collected: 01/08/19 1636 Order Status: Completed Lab Status: Preliminary result Updated: 01/09/19450 Specimen: Blood from Peripheral Blood Culture No growth: Monitored continually by instrument for 5 days Relevant cultures from previous admits: Date Source Organisms Sensitivities 09/07/18 Wound MRSA s-clinda, vanco, linezolid, tetracycline, septra. R all others tested 09/05/18 blood MRSA S-clinda,linezolid, tetra, septra, vanco. R all others tested 06/26/13 wound Pseudomonas a R- ampicillin, unasyn, cefaz, ceftri. S ceftaz,cipro, gent, me ro, tobra wound Klebsiella oxytoca S to everything except ampicillin UA: none Admission Wt: Weight: 122.5 kg (270 lb) Current Wt: Weight: 121.6 kg (268 lb 1.3 oz) Min/Max Temp past 24 hours:Temp Av.5 C (97.7 F) Min: 36 C (96.8 F) Max: 36. 9 C (98.4 F) Estimated Creatinine Clearance: 14 mL/min (A) (based on SCr of 7.98 mg/dL (HH)). Intake/Output Summary (Last 24 hours) at 01/10/19 0348 Last data filed at 01/09/19 1840 Gross per 24 hour Intake 996 ml Output 2503 ml Net -1507 ml Temp: [36 C (96.8 F)-36.9 C (98.4 F)] 36.6 C (97.9 F) Pulse: [84-128] 98 Resp: [17-20] 18 BP: (116-150)/(68-93) 116/75 Recent Labs Lab 01/09/19 2258 01/09/19 0548 01/08/19 1636 WBC -- 8.8 10.8 CREA -- 7.98* 7.12* LACTATE -- -- 0.8 VANCORANDOM 11.5 -- -- PROCALCITONI -- -- 0.98* Imaging: none Date 01/08 01/09 Time of Vancomycin draw -- 2257 Vancomycin result -- 11.5 LEVEL or TROUGH level Serum Creatinine HD patient HD CrCl (mL/min) HD patient HD Vanco load/bolus 1500 mg -- Vanco dose - current -- Pulse Vanco dose - new pulse 500 mg Assessment: Vancomycin Day # 2 Other antibiotics: zosyn Target Trough: 13-17 for SSTI of left foot WBC: WNL; Renal: end stage renal disease- HD patient; Temp: febrile; Culture: blood pend ing; VS: tachycardia Renal function: HD Plan: 1. Vancomycin dose of 500mg IV x 1 on 01/10/19 @ 0321, pulse dosing pending post HD levels. 2. Vancomycin level to be ordered ~4-6 hours post next dialysis to allow for fluid redistr ibution 3. Serum creatinine DAILY for first 3 days, then at least every 3 days while on vancomycin. 4. Will monitor renal function, clinical status, infection markers daily with troughs and d ose adjustment as needed. Definitions: For the purpose of this protocol, "trough" means a steady state trough before the 4th dose of the initial/new dosing regimen and "level" means all other levels drawn including before the 3rd dose References: Vancomycin dosing protocol IDSA guidelines Procalcitonin Algorithm Per P&T-approved Vancomycin Dosing and Monitoring Protocol Electronically signed by: Alberto Miramontes PharmD 01/09/2019 9:53 Addendum in blue/bold above: Electronically signed by: Bel Camarillo PharmD 01/10/2019 3 :48 Juice Cassidy PharmD - 01/08/2019 5:11 PM PDTFormatting of this note might be different from the origin al. VANCOMYCIN PER PHARMACY PROTOCOL: AMS/Drug Name - vanco and zosyn Patient: Celso Sutton Case ED12/ED12 Admit: 01/08/2019 16:06 RELEVANT ALLERGIES: no relevant 58 yrs old male patient admitted on 01/08/2019 for foot swelling and fever. Patient is rece iving vancomycin starting on 01/08/19 for left foot wound. Patient has a past medical history of Arthritis (09/15/2012); BPH with urinary obstruction; Diabetes mellitus, type 2 ([facility]) (); Diabetic foot ulcer ([facility]) (01/01/12); ESRD (end stage renal disease) on dialysis ([facility]) ( 1999); Heart murmur; Hepatitis C (2006); Hyperlipidemia; Hypertension (2001); Obesity; Parox ysmal atrial flutter ([facility]); Recurrent UTI; and Vitamin D deficiency. . Risk factors for MDR organisms include recent healthcare contact, h/o MRSA, h/o Psudomonas and h/o resistant orga nism. HPI: Celso Caro is a 58 y.o. male who presents to the Emergency Department with left lower extremity erythema and swelling. Patient noticed the redness and swelling yesterday evening . Started on the dorsum of his foot but has been climbing up to his mid leg. There is some fevers. He was supposed to get dialysis today but he missed it because he came to us inste ad. Has had recurrent cellulitis in that lower extremity. I admitted him back in late . Antimicrobials - Current Antibiotic Dates of Therapy vanco 4/3 zosyn 4/3 Antimicrobials - Discontinued Antibiotic Dates of Therapy Historical Vancomycin dosing (previous & current encounter): pulse dosing 500 to 1500mg. Micro/Cultures/Diagnostics: Microbiology Results (Last 14 Days by Collected Date with Culture/Sensitivity) Procedure Component Value Units Date/Time Culture, Blood [[id number]] Collected: 01/08/19 1644 Order Status: Sent Lab Status: In process Updated: 01/08/19 1645 Specimen: Blood from Peripheral Blood Culture, Blood [[id number]] Collected: 01/08/19 1636 Order Status: Sent Lab Status: In process Updated: 01/08/19 1641 Specimen: Blood from Peripheral Blood Relevant cultures from previous admits: Date Source Organisms Sensitivities 09/07/18 Wound MRSA s-clinda, vanco, linezolid, tetracycline, septra. R all others tested 09/05/18 blood MRSA S-clinda,linezolid, tetra, septra, vanco. R all others tested 06/26/13 wound Pseudomonas a R- ampicillin, unasyn, cefaz, ceftri. S ceftaz,cipro, gent, me ro, tobra wound Klebsiella oxytoca S to everything except ampicillin UA: none Admission Wt: Weight: 122.5 kg (270 lb) Current Wt: Weight: 122.5 kg (270 lb) Min/Max Temp past 24 hours:Temp Av.8 C (100 F) Min: 37.8 C (100 F) Max: 37. 8 C (100 F) CrCl cannot be calculated (Patient's most recent lab result is older than the maximum 3 day s allowed.). No intake or output data in the 24 hours ending 01/08/19 1711 Temp: [37.8 C (100 F)] 37.8 C (100 F) Pulse: [136-138] 136 Resp: [26-30] 26 BP: (124-127)/(75-77) 124/77 Recent Labs Lab 01/08/19 1636 WBC 10.8 LACTATE 0.8 Imaging: none Date 01/08 Time of Vancomycin draw -- Vancomycin result -- LEVEL or TROUGH Serum Creatinine HD patient CrCl (mL/min) HD patient Vanco load/bolus 1500 mg Vanco dose - current -- Vanco dose - new pulse Assessment: Vancomycin Day # 1 Other antibiotics: zosyn Target Trough: 13-17 for SSTI of left foot WBC: WNL; Renal: end stage renal disease- HD patient; Temp: febrile; Culture: blood pend ing; VS: tachycardia Renal function: UOP: -- mL/kg/hr, improving/declining/stable-- Plan: 1. Vancomycin load of 1500 mg (~15.4 mg/kg) IVPB x 1 given on 01/08/19 @ 1800, pulse dosing p ending post HD levels. 2. Time of next vanco level to be determined based on next HD session timing. 3. Serum creatinine DAILY for first 3 days, then at least every 3 days while on vancomycin. 4. Will monitor renal function, clinical status, infection markers daily with troughs and d ose adjustment as needed. Definitions: For the purpose of this protocol, "trough" means a steady state trough before the 4th dose of the initial/new dosing regimen and "level" means all other levels drawn including before the 3rd dose References: Vancomycin dosing protocol IDSA guidelines Procalcitonin Algorithm Per P&T-approved Vancomycin Dosing and Monitoring Protocol Electronically signed by: Juice Strong PharmD 01/08/2019 17:11 documented in this encounter Plan of Treatment + +------+--------+ + + | Name | Type | Priori | Associated Diagnoses | Date/Time | | | | ty | | | + +------+--------+ + + | ED INFORMATION | ANEESH | Routin | | 01/08/2019 3:14 PM | | EXCHANGE | | e | | PDT | + +------+--------+ + + + + +--------+ + + | Name | Type | Priori | Associated Diagnoses | Order Schedule | | | | ty | | | + + +--------+ + + | Referral to Home | Outpatient | Routin | Osteomyelitis of | Ordered: 01/11/2019 | | Health - OUTPATIENT | Referral | e | fourth toe of left | | | | | | foot ([facility]) Diabetic | | | | | | ulcer of left | | | | | | midfoot associated | | | | | | with type 2 diabetes | | | | | | mellitus, with | | | | | | other ulcer severity | | | | | | ([facility]) | | + + +--------+ + + documented as of this encounter Procedures + +--------+ + + + | Procedure Name | Priori | Date/Time | Associated Diagnosis | Comments | | | ty | | | | + +--------+ + + + | POC GLUCOSE | Routin | 01/11/2019 | | Results for this | | | e | 12:34 PM | | procedure are in the | | | | PDT | | results section. | + +--------+ + + + | POC GLUCOSE | Routin | 01/11/2019 | | Results for this | | | e | 7:00 AM | | procedure are in the | | | | PDT | | results section. | + +--------+ + + + | POC GLUCOSE | Routin | 01/10/2019 | | Results for this | | | e | 8:10 PM | | procedure are in the | | | | PDT | | results section. | + +--------+ + + + | POC GLUCOSE | Routin | 01/10/2019 | | Results for this | | | e | 5:07 PM | | procedure are in the | | | | PDT | | results section. | + +--------+ + + + | CULTURE, WOUND, | Routin | 01/10/2019 | | Results for this | | SMEAR | e | 3:30 PM | | procedure are in the | | | | PDT | | results section. | + +--------+ + + + | CULTURE, WOUND, | Routin | 01/10/2019 | | Results for this | | SMEAR, W/ANAEROBE | e | 3:30 PM | | procedure are in the | | | | PDT | | results section. | + +--------+ + + + | CULTURE, ANAEROBIC | Routin | 01/10/2019 | | Results for this | | | e | 3:30 PM | | procedure are in the | | | | PDT | | results section. | + +--------+ + + + | AMPUTATION TOE | | 01/10/2019 | . | | | | | 2:44 PM | | | | | | PDT | | | + +--------+ + + + | POC GLUCOSE | Routin | 01/10/2019 | | Results for this | | | e | 11:56 AM | | procedure are in the | | | | PDT | | results section. | + +--------+ + + + | POC GLUCOSE | Routin | 01/10/2019 | | Results for this | | | e | 6:43 AM | | procedure are in the | | | | PDT | | results section. | + +--------+ + + + | CBC WITH | Routin | 01/10/2019 | | Results for this | | DIFFERENTIAL | e | 5:35 AM | | procedure are in the | | | | PDT | | results section. | + +--------+ + + + | BASIC METABOLIC | Routin | 01/10/2019 | | Results for this | | PANEL | e | 5:35 AM | | procedure are in the | | | | PDT | | results section. | + +--------+ + + + | CLOSTRIDIUM | Routin | 01/10/2019 | | Results for this | | DIFFICILE | e | 1:52 AM | | procedure are in the | | | | PDT | | results section. | + +--------+ + + + | SURGICAL PATHOLOGY | Routin | 01/10/2019 | | Results for this | | EXAM | e | 12:00 AM | | procedure are in the | | | | PDT | | results section. | + +--------+ + + + | VANCOMYCIN LEVEL | Timed | 01/09/2019 | | Results for this | | | | 10:58 PM | | procedure are in the | | | | PDT | | results section. | + +--------+ + + + | POC GLUCOSE | Routin | 01/09/2019 | | Results for this | | | e | 9:36 PM | | procedure are in the | | | | PDT | | results section. | + +--------+ + + + | POC GLUCOSE | Routin | 01/09/2019 | | Results for this | | | e | 5:38 PM | | procedure are in the | | | | PDT | | results section. | + +--------+ + + + | POC GLUCOSE | Routin | 01/09/2019 | | Results for this | | | e | 12:35 PM | | procedure are in the | | | | PDT | | results section. | + +--------+ + + + | MRI FOOT LEFT WO | Routin | 01/09/2019 | | Results for this | | CONTRAST | e | 12:03 PM | | procedure are in the | | | | PDT | | results section. | + +--------+ + + + | POC GLUCOSE | Routin | 01/09/2019 | | Results for this | | | e | 6:45 AM | | procedure are in the | | | | PDT | | results section. | + +--------+ + + + | CULTURE, MRSA | Routin | 01/09/2019 | | Results for this | | | e | 6:00 AM | | procedure are in the | | | | PDT | | results section. | + +--------+ + + + | CULTURE, WOUND, | Routin | 01/09/2019 | | Results for this | | SMEAR | e | 6:00 AM | | procedure are in the | | | | PDT | | results section. | + +--------+ + + + | CULTURE, WOUND, | Routin | 01/09/2019 | | Results for this | | SMEAR, W/ANAEROBE | e | 6:00 AM | | procedure are in the | | | | PDT | | results section. | + +--------+ + + + | CULTURE, ANAEROBIC | Routin | 01/09/2019 | | Results for this | | | e | 6:00 AM | | procedure are in the | | | | PDT | | results section. | + +--------+ + + + | CBC WITH | Routin | 01/09/2019 | | Results for this | | DIFFERENTIAL | e | 5:48 AM | | procedure are in the | | | | PDT | | results section. | + +--------+ + + + | PHOSPHORUS | Add-On | 01/09/2019 | | Results for this | | | | 5:48 AM | | procedure are in the | | | | PDT | | results section. | + +--------+ + + + | BASIC METABOLIC | Routin | 01/09/2019 | | Results for this | | PANEL | e | 5:48 AM | | procedure are in the | | | | PDT | | results section. | + +--------+ + + + | POC GLUCOSE | Routin | 01/08/2019 | | Results for this | | | e | 10:37 PM | | procedure are in the | | | | PDT | | results section. | + +--------+ + + + | XR FOOT LEFT 3 + VW | STAT | 01/08/2019 | | Results for this | | | | 6:51 PM | | procedure are in the | | | | PDT | | results section. | + +--------+ + + + | POC GLUCOSE | Routin | 01/08/2019 | | Results for this | | | e | 6:22 PM | | procedure are in the | | | | PDT | | results section. | + +--------+ + + + | CULTURE, BLOOD | STAT | 01/08/2019 | | Results for this | | | | 4:44 PM | | procedure are in the | | | | PDT | | results section. | + +--------+ + + + | PROCALCITONIN, SERUM | STAT | 01/08/2019 | | Results for this | | | | 4:36 PM | | procedure are in the | | | | PDT | | results section. | + +--------+ + + + | CULTURE, BLOOD | STAT | 01/08/2019 | | Results for this | | | | 4:36 PM | | procedure are in the | | | | PDT | | results section. | + +--------+ + + + | CBC WITH | STAT | 01/08/2019 | | Results for this | | DIFFERENTIAL | | 4:36 PM | | procedure are in the | | | | PDT | | results section. | + +--------+ + + + | LACTIC ACID | STAT | 01/08/2019 | | Results for this | | | | 4:36 PM | | procedure are in the | | | | PDT | | results section. | + +--------+ + + + | COMPREHENSIVE | STAT | 01/08/2019 | | Results for this | | METABOLIC PANEL | | 4:36 PM | | procedure are in the | | | | PDT | | results section. | + +--------+ + + + | POC GLUCOSE | Routin | 01/08/2019 | | Results for this | | | e | 4:33 PM | | procedure are in the | | | | PDT | | results section. | + +--------+ + + + | ED INFORMATION | Routin | 01/08/2019 | | | | EXCHANGE | e | 3:14 PM | | | | | | PDT | | | + +--------+ + + + +---+--------+ | | | | | Proced | | | ure | | | Note - | | | Ramy, | | | Lab In | | | | | | Hlseve | | | n - | | | 01/08/ | | | 2019 | | | 3:15 | | | PM PDT | | | | | | Format | | | ting | | | of | | | this | | | note | | | might | | | be | | | differ | | | ent | | | from | | | the | | | origin | | | al.COL | | | LECTIV | | | E?NOTI | | | FICATI | | | ON?04/ | | | | | | 9 | | | 15:10? | | | CASE, | | | CELSO | | | M?MRN: | | | | | | [id number] | | | [id number] | | | riteri | | | a Met | | | Care | | | Guidel | | | inesSe | | | curity | | | and | | | Safety | | | No | | | recent | | | | | | Securi | | | ty | | | Events | | | | | | curren | | | tly on | | | | | | fileED | | | Care | | | Guidel | | | inesTh | | | ere | | | are | | | curren | | | tly no | | | ED | | | Care | | | Guidel | | | elin | | | for | | | this | | | patien | | | t. | | | Please | | | check | | | your | | | facili | | | ty's | | | medica | | | l | | | record | | | s | | | system | | | .Care | | | Histor | | | yMedic | | | al/Praful | | | [email or web address] | | | 2/17/1 | | | 8 | | | 12:00 | | | AM | | | [facility] [place] [facility] | | | al?? | | | PATIEN | | | T IS A | | | | | | [facility] | | | [facility] | | | MEMBER | | | .?? | | | PLEASE | | | REFER | | | | | | PATIEN | | | T TO | | | [facility] | | | [facility] | | | FOR | | | NON | | | EMERGE | | | NT | | | MEDICA | | | L | | | NEEDS. | | | ?? | | | YELLOW | | | [facility] | | | CAN | | | SEE | | | PATIEN | | | TS | | | SAME | | | DAY | | | FOR | | | APTS | | | IF | | | PATIEN | | | T | | | CALLS | | | FIRST | | | THING | | | IN THE | | | | | | MORNIN | | | G.Pres | | | cripti | | | on | | | Drug | | | Report | | | (12 | | | Mo.)PD | | | MP | | | query | | | found | | | no | | | report | | | .E.D. | | | Visit | | | Count | | | (12 | | | mo.)Fa | | | cility | | | | | | Visits | | | Low | | | Acuity | | | | | | Provid | | | ence | | | [facility] | | | [facility] | | | [facility] | | | [facility] | | | 3 0 | | | [facility] [place] | | | y | | | Hospit | | | al 1 0 | | | Total | | | 4 0 | | | Note: | | | Visits | | | | | | indica | | | te | | | total | | | known | | | visits | | | . | | | Medica | | | id Low | | | | | | Acuity | | | Dx | | | are | | | the | | | number | | | of | | | primar | | | y | | | diagno | | | ses on | | | the | | | Medica | | | id's | | | Low | | | Acuity | | | dx | | | list. | | | | | | Recent | | | | | | Emerge | | | ncy | | | Depart | | | ment | | | Visit | | | [facility] | | | yDate | | | Facili | | | ty | | | City | | | State | | | Type | | | Diagno | | | ses or | | | Chief | | | | | | Compla | | | int | | | Apr 3, | | | 2019 | | | Provid | | | ence | | | [facility] | | [facility] | | [place] | | | [place] | | | Emerge | | | ncy | | | lt | | | foot | | | swelli | | | ng,pos | | | s | | | infect | | | ion | | | Dec | | | 15, | | | 2018 | | | Provid | | | ence | | | [facility] | | | [facility] | | [place] | | | [place] | | | Emerge | | | ncy | | | | | | blocke | | | d picc | | | line | | | | | | Vascul | | | ar | | | Access | | | | | | Proble | | | m | | | Elevat | | | ed | | | blood- | | | pressu | | | re | | | readin | | | g, | | | withou | | | t | | | diagno | | | sis of | | | | | | hypert | | | ension | | | | | | Other | | | specif | | | ied | | | compli | | | cation | | | of | | | vascul | | | ar | | | prosth | | | etic | | | device | | | s, | | | implan | | | ts and | | | | | | grafts | | | , | | | initia | | | l | | | encoun | | | ter | | | Dec | | | 14, | | | 2018 | | | [facility] | [place] | | | [facility] | | | [place] 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 | | [facility] | [place] | | | [place] | | | Emerge | | | ncy | | | Left | | | Foot | | | Pain | | | Foot | | | Pain | | | | | | Fever | | | (9 | | | Weeks | | | To 74 | | | Years) | | | | | | Cellul | | | itis, | | | unspec | | | ified | | | | | | Recent | | | | | | Inpati | | | ent | | | Visit | | | [facility] | | | yDate | | | Facili | | | ty | | | City | | | State | | | Type | | | Diagno | | | ses or | | | Chief | | | | | | Compla | | | int | | | Nov | | | 29, | | | 2018 | | | Provid | | | ence | | | [facility] | | | [facility] | | | [place] | | | [place] | | | Medica | | | l | | | Surgic | | | al | | | Cellul | | | itis, | | | unspec | | | ified | | | | | | Type 2 | | | | | | diabet | | | es | | | mellit | | | us | | | with | | | other | | | diabet | | | ic | | | kidney | | | | | | compli | | | cation | | | | | | Cellul | | | itis | | | of | | | left | | | lower | | | limb | | | End | | | stage | | | renal | | | diseas | | | e | | | Anemia | | | in | | | chroni | | | c | | | kidney | | | | | | diseas | | | e | | | Non-pr | | | essure | | | | | | chroni | | | c | | | ulcer | | | of | | | left | | | heel | | | and | | | midfoo | | | t | | | limite | | | d to | | | breakd | | | own of | | | skin | | | | | | Type 2 | | | | | | diabet | | | es | | | mellit | | | us | | | with | | | foot | | | ulcer | | | | | | Type 2 | | | | | | diabet | | | es | | | mellit | | | us | | | withou | | | t | | | compli | | | cation | | | s | | | Long | | | term | | | (curre | | | nt) | | | use of | | | | | | insuli | | | n | | | Gangre | | | ne, | | | not | | | elsewh | | | ere | | | classi | | | fied | | | Care | | | Provid | | | ersPro | | | vider | | | PRC | | | Type | | | Phone | | | Fax | | | Servic | | | e | | | Dates | | | BOURET | | | , | | | JUJU | | | N H, | | | PAC | | | Physic | | | louise | | | Assist | | | ant: | | | Surgic | | | al | | | Dec | | | 17, | | | 2018 - | | | | | | Curren | | | t | | | [facility] | | | tive | | | Portal | | | This | | | patien | | | t has | | | regist | | | ered | | | at the | | | | | | Provid | | | ence | | | [facility] | | | [facility] | | | Center | | | | | | Emerge | | | ncy | | | Depart | | | ment | | | For | | | more | | | inform | | | ation | | | visit: | | | | | | https: | | | //secu | | | [email or web address] | | | ecarep | | | [email or web address] | | | m/[email or web address] | | | ent/27 | | | [id number] | | | -[id number]- | | | [id number] | | | 23a-df | | | [id number] | | | [id number] | | | andnbs | | | p | | | PLEASE | | | NOTE: | | | 1. | | | Any | | | care | | | recomm | | | endati | | | ons | | | and | | | other | | | clinic | | | al | | | inform | | | ation | | | are | | | provid | | | ed as | | | guidel | | | elin | | | or for | | | | | | histor | | | ical | | | purpos | | | es | | | only, | | | and | | | provid | | | ers | | | should | | | | | | exerci | | | se | | | their | | | own | | | clinic | | | al | | | judgme | | | nt | | | when | | | provid | | | ing | | | care. | | | 2. | | | You | | | may | | | only | | | use | | | this | | | inform | | | ation | | | for | | | purpos | | | es of | | | treatm | | | ent, | | | paymen | | | t or | | | health | | | care | | | operat | | | ions | | | activi | | | ties, | | | and | | | subjec | | | t to | | | the | | | limita | | | tions | | | of | | | applic | | | able | | | Colle[facility] | | | tive | | | Polici | | | es. | | | 3. | | | You | | | should | | | | | | consul | | | t | | | direct | | | ly | | | with | | | the | | | organi | | | zation | | | that | | | provid | | | ed a | | | care | | | guidel | | | ine or | | | other | | | | | | clinic | | | al | | | histor | | | y with | | | any | | | questi | | | ons | | | about | | | additi | | | onal | | | inform | | | ation | | | or | | | accura | | | cy or | | | comple | | | teness | | | of | | | inform | | | ation | | | provid | | | ed.? | | | 2019 | | | [facility] | | | tive | | | Medica | | | l | | | Techn[employer] | | | logies | | | , Inc[employer] | | | - | | | [email or web address] | | | llecti | | | vemedi | | | [email or web address] | | | m | +---+--------+ documented in this encounter Results POC Glucose (01/11/2019 12:34 PM PDT) + +-------+ + + + | Component | Value | Ref Range | Performed | Pathologist | | | | | At | Signature | + +-------+ + + + | Glucose, | 105 | 70 - 109 mg/dL | [facility] [...] [facility] | [place] | [phone] | | [facility] | | [address] | | | - LABORATORY | | | | + + + + + POC Glucose (01/11/2019 7:00 AM PDT) + +-------+ + + + | Component | Value | Ref Range | Performed | Pathologist | | | | | At | Signature | + +-------+ + + + | Glucose, | 92 | 70 - 109 mg/dL | [facility] [address] | [place] | [phone] | | [facility] | | [address] | | | - LABORATORY | | | | + + + + + POC Glucose (01/10/2019 8:10 PM PDT) + +---------+ + + + | Component | Value | Ref Range | Performed | Pathologist | | | | | At | Signature | + +---------+ + + + | Glucose, | 134 (H) | 70 - 109 mg/dL | [...] St | [place] | [phone] | | [facility] | | [address] | | | - LABORATORY | | | | + + + + + POC Glucose (01/10/2019 5:07 PM PDT) + +--------+ + + + | Component | Value | Ref Range | Performed | Pathologist | | | | | At | Signature | + +--------+ + + + | Glucose, | 69 (L) | 70 - 109 mg/dL | [facility] | | | POC | | [facility] [...] St | [place] | [phone] | | [facility] | | [address] | | | - LABORATORY | | | | + + + + + Culture, Anaerobic (01/10/2019 3:30 PM PDT) + + + + + + | Component | Value | Ref Range | Performed | Pathologist | | | | | At | Signature | + + + + + + | Culture | No anaerobes isolated. | | [facility] | | | | [facility] | [facility] - | | | | | | LABORATORY | | + + + + + + + + | Specimen | + + | Tissue - Entire | | fourth toe (body | | structure) | + + + + + + + | Performing | Address | City/State/Zipcode | Phone Number | | Organization | | | | + + + + + | [facility] | [address] | [place] | [phone] | | [facility] | | [address] | | | - LABORATORY | | | | + + + + + Culture, Wound, Smear (01/10/2019 3:30 PM PDT) + + + + + + | Component | Value | Ref Range | Performed | Pathologist | | | | | At | Signature | + + + + + + | Culture | No Growth | | [facility] | | | | [facility] - | | | | | | LABORATORY | | + + + + + + | Gram Stain | 2+ White Blood Cells | | [facility] | | | Result | | | [facility] | [facility] | [facility] | | | | | | C[facility] - | | | | | | LABORATORY | | + + + + + + | Gram Stain | No squamous epithelial | | [facility] | | | Result | cells seen | | [facility] | | [facility] | [facility] | | | | | | C[facility] - | | | | | | LABORATORY | | + + + + + + | Gram Stain | No organisms seen | | [facility] | | | Result | | | [facility] | | | [facility] | [facility] | | | | | | CENTER - | | | | | | LABORATORY | | + + + + + + + + | Specimen | + + | Tissue - Entire | | fourth toe (body | | structure) | + + + + + + + | Performing | Address | City/State/Zipcode | Phone Number | | Organization | | | | + + + + + | [facility] | [address] | [place], [place] | [phone] | | [facility] | | [address] | | | - LABORATORY | | | | + + + + + POC Glucose (01/10/2019 11:56 AM PDT) + +---------+ + + + [...] At | + + + | Glu2: Use This Result | [facility] | | | [facility] | | | - LABORATORY | + + + + + + + + | Performing | Address | City/State/Zipcode | Phone Number | | Organization | | | | + + + + + | [facility] | [address] | [place] | [phone] | | [facility] | | [address] | | | - LABORATORY | | | | + + + + + POC Glucose (01/10/2019 6:43 AM PDT) + +-------+ + + + | Component | Value | Ref Range | Performed | Pathologist | | | | | At | Signature | + +-------+ + + + | Glucose, | 95 | 70 - 109 mg/dL | [facility] [...] St | [place] | [phone] | | [facility] | | [address] | | | - LABORATORY | | | | + + + + + Basic Metabolic Panel (01/10/2019 5:35 AM PDT) + + + + + + | Component | Value | Ref Range | Performed | Pathologist | | | | | At | Signature | + + + + + + | Na | 134 (L) | 136 - 145 | [facility] | | | | | mmol/L | [facility] | [facility] | | | | | | CENTER - | | | | | | LABORATORY | | + + + + + + | K | 4.4 | 3.4 - 5.1 | [facility] | | | | | mmol/L | [facility] | | | [facility] | [facility] | | | | | | CENTER - | | | | | | LABORATORY | | + + + + + + | Cl | 97 (L) | 98 - 107 mmol/L | [facility] | | | | | | [facility] | | | [facility] | [facility] | | | | | | CENTER - | | | | | | LABORATORY | | + + + + + + | CO2 | 27 | 20 - 31 mmol/L | [facility] | | | | | | [facility] | | | [facility] | [facility] | | | | | | C[facility] - | | | | | | LABORATORY | | + + + + + + | Anion Gap | 10 | 3 - 16 mmol/L | [facility] | | [facility] - | | | | | | LABORATORY | | + + + + + + | Glucose | 103 | 60 - 106 mg/dL | [facility] | | | | | | [facility] - | | | | | | LABORATORY | | + + + + + + | BUN | 42 (H) | 9 - 23 mg/dL | [facility] | | | | | | [facility] - | | | | | | LABORATORY | | + + + + + + | Creatinine | 6.71 (H) | 0.70 - 1.30 | [facility] | | | | | mg/dL | [facility] | | [facility] - | | | | | | LABORATORY | | + + + + + + | eGFR if not | 9 (L) | >=60 | [facility] | | | | | mL/min/1.73m2 | [facility] | | | [facility] | | | [facility] | | | | | | CENTER - | | | | | | LABORATORY | | + + + + + + | Calcium | 8.4 (L) | 8.7 - 10.4 | [facility] | | | | | mg/dL | [facility] | | | [facility] | | [facility] | | | | | | C[facility] - | | | | | | LABORATORY | | + + + + + + | BUN/Creatin | 6.3 | | [facility] | | | ine Ratio | | | [facility] | | | [facility] | | [facility] [...] + | [facility] | [address] | [place] | [phone] | | [facility] | | [address] | | | - LABORATORY | | | | + + + + + CBC with Differential (01/10/2019 5:35 AM PDT) + + + + + + | Component | Value | Ref Range | Performed | Pathologist | | | | | At | Signature | + + + + + + | WBC | 7.1 | 4.0 - 11.0 K/uL | [facility] | | | | | | [facility] | | | | | | [facility] | | | | | | C[facility] - | | | | | | LABORATORY | | + + + + + + | RBC | 3.85 (L) | 4.30 - 5.70 | [facility] | | | | | M/uL | [facility] | | | | | | [facility] | | | | | | CENTER - | | | | | | LABORATORY | | + + + + + + | Hemoglobin | 11.1 (L) | 13.5 - 18.0 | [facility] | | | | | g/dL | [facility] | | | | | | [facility] | | | | | | CENTER - | | | | | | LABORATORY | | + + + + + + | Hematocrit | 34.2 (L) | 40.0 - 51.0 % | [facility] | | | | | | [facility] | | | | | | [facility] | | | | | | CENTER - | | | | | | LABORATORY | | + + + + + + | MCV | 88.8 | 83.0 - 101.0 fL | [facility] | | | | | | [facility] | | | | | | [facility] | | | | | | CENTER - | | | | | | LABORATORY | | + + + + + + | MCH | 28.8 | 28.0 - 35.0 pg | [facility] | | | | | | [facility] | | | | | | [facility] | | | | | | CENTER - | | | | | | LABORATORY | | + + + + + + | MCHC | 32.5 | 32.0 - 36.0 | [facility] | | | | | g/dL | [facility] | | | | | | [facility] | | | | | | CENTER - | | | | | | LABORATORY | | + + + + + + | RDW-CV | 18.3 (H) | <15.0 % | [facility] | | | | | | [facility] | | | | | | [facility] | | | | | | CENTER - | | | | | | LABORATORY | | + + + + + + | RDW-SD | 59.8 (H) | 35.1 - 46.3 fL | [facility] | | | | | | [facility] | | | | | | [facility] | [facility] | | | | CENTER - | | | | | | LABORATORY | | + + + + + + | Platelet | 271 | 140 - 440 K/uL | [facility] | | | Count | | | [facility] | | | | | | [facility] | | | | | | CENTER - | | | | | | LABORATORY | | + + + + + + | MPV | 9.4 | 6.5 - 12.4 fL | [facility] | | | | | | [facility] | | | | | | [facility] | | | | | | CENTER - | | | | | | LABORATORY | | + + + + + + | % | 62.9 | 45.0 - 82.0 % | [facility] | | | Neutrophils | | | [facility] | | | | | | [facility] | | | | | | CENTER - | | | | | | LABORATORY | | + + + + + + | % | 21.0 | 20.0 - 45.0 % | [facility] | | | Lymphocytes | | | [facility] | | | | | | [facility] | | | | | | CENTER - | | | | | | LABORATORY | | + + + + + + | % Monocytes | 12.3 (H) | 4.0 - 12.0 % | [facility] | | | | | | [facility] | | | | | | [facility] | | | | | | CENTER - | | | | | | LABORATORY | | + + + + + + | % | 2.7 | 0.0 - 5.0 % | [facility] | | | Eosinophils | | | [facility] | | | | | | [facility] | | | | | | CENTER - | | | | | | LABORATORY | | + + + + + + | % Basophils | 0.8 | 0.0 - 1.0 % | [facility] | | | | | | [facility] | | | | | | [facility] | | | | | | CENTER - | | | | | | LABORATORY | | + + + + + + | % Immature | 0.3 | 0.0 - 0.4 % | [facility] | | | Granulocyte | | | [facility] | | | s | | | MEDICAL | | | | | | CENTER - | | | | | | LABORATORY | | + + + + + + | Absolute | 4.45 | 1.80 - 8.50 | [facility] | | | Neutrophils | | K/uL | [facility] | | | | | | [facility] | | | | | | CENTER - | | | | | | LABORATORY | | + + + + + + | Absolute | 1.49 | 0.60 - 3.20 | [facility] | | | Lymphocytes | | K/uL | [facility] | | | | | | [facility] | | | | | | CENTER - | | | | | | LABORATORY | | + + + + + + | Absolute | 0.87 | 0.00 - 1.00 | [facility] | | | Monocytes | | K/uL | [facility] | | | | | | MEDICAL | | | | | | CENTER - | | | | | | LABORATORY | | + + + + + + | Absolute | 0.19 | 0.00 - 0.40 | [facility] | [...] | | | | | WBCs | [facility] | | | | | | [facility]ICAL | | | | | | CENTER - | | | | | | LABORATORY | | + + + + + + | Absolute | 0.00 | 0.00 - 0.01 | [facility] | | | nRBC | | K/uL | [facility] | | | | | [...] St | [place] | [phone] | | [facility] | | [address] | | | - LABORATORY | | | | + + + + + Clostridium difficile (01/10/2019 1:52 AM PDT) + + + + + + | Component | Value | Ref Range | Performed | Pathologist | | | | | At | Signature | + + + + + + | Clostridium | Negative | Negative | [facility] | | | difficile | | | [facility] | | | DNA | | | [...] ST. | [address] | [place], [place] | [phone] | | [facility] | | [address] | | | - LABORATORY | | | | + + + + + Surgical Pathology Exam (01/10/2019 12:00 AM PDT) + + | Specimen | + + | | + + + + + | Narrative | Performed At | + + + | SPECIMEN(S): A LEFT FOURTH TOE SPECIMEN(S): B LEFT FOURTH TOE | [facility] | | PROXIMAL MARGIN SPECIMEN SOURCE: A. LEFT FOURTH TOE B. LEFT | [facility] | | FOURTH TOE PROXIMAL MARGIN CLINICAL HISTORY: No preop or clinical | | | information is given on requisition. FINAL PATHOLOGIC DIAGNOSIS: | | | A. Left fourth toe: - Ulcerated toe with acute soft tissue | | | inflammation and associated evidence of acute osteomyelitis. B. | | | Left fourth toe proximal margin: - Benign soft tissue and bone; | | | negative for evidence of pathologic inflammation. JVR:[facility]:C2NR | | | MICROSCOPIC EXAMINATION: Histologic sections of all submitted blocks | | | are examined by light microscopy. These findings, together with the | | | gross examination, support the pathologic diagnosis. GROSS | | | DESCRIPTION: Two specimens are received in two containers, labeled | | | "LC." A. The specimen, labeled "LC, left fourth toe," is | | | received in formalin and consists of a 3.5 x 2.8 x 2.3 cm | | | disarticulated toe. The skin surface is pale pink with moderate skin | | | slippage and a yellow thickened nail. Present on the plantar | | | surface is a 2.7 x 2.5 cm ulcerated lesion that involves the nailbed | | | and is 0.4 cm from the closest resection margin. Serially sectioning | | | through the lesion reveals involvement of the underlying soft tissue | | | and a pink softened bone. Also present within the container is a | | | 1.4 x 1.2 x 0.9 cm phalanx bone with rodriguez smooth articulating surfaces. | | | Serially sectioning reveals a rodriguez firm bony cut surface. | | | Tare Worker sections are submitted in cassettes (A1-A2) and are | | | placed into Dec[facility] prior to processing. B. The specimen, | | | labeled "LC, left fourth toe proximal margin," is received in formalin | | | and consists of two yellow-rodriguez firm bone fragments that measure 0.8 | | | and 0.9 cm in greatest dimension. Specimen is sectioned, entirely | | | submitted in cassette (B1) and placed into Decal Stat prior to | | | processing. FB (under the direct supervision of a pathologist) | | | The Gross Description was prepared using a voice recognition system. | | | The report was reviewed for accuracy; however, sound-alike word | | | errors, addition and/or deletions may occur. If there is any | | | question about this report, please contact Client Services. | | | PERFORMING LABORATORY: The technical component was performed by | | | [facility], [address] [place] [id number] (Medical | | | Director: Val Gomez MD; CLIA# [id number]). Professional | | | interpretation was performed by [facility] | | | [facility], [address], [place], [place] | | | [address] (Home Mission Worker: Sudhakar Weber M.D.). Diagnostician: | | | Sudhakar Weber MD Pathologist Electronically Signed 01/14/2019 | | | | | + + + + +---------+ + + | Performing | Address | City/State/Zipcode | Phone Number | | Organization | | | | + +---------+ + + | [facility] | | | | | [facility] | | | | + +---------+ + + Vancomycin Level (01/09/2019 10:58 PM PDT) + +-------+ + + + | Component | Value | Ref Range | Performed | Pathologist | | | | | At | Signature | + +-------+ + + + | Date of | | | [facility] | | | Last Dose | | | [facility] | | | [facility] | [facility] - | | | | | | LABORATORY | | + +-------+ + + + | Time of | | | [facility] | | | Last Dose | | | [facility] | [facility] | [facility] | | | | | | [facility] - | | | | | | LABORATORY | | + +-------+ + + + | Vancomycin | 11.5 | 5.0 - 40.0 | [facility] | | | Random | | ug/mL | [facility] | | | | | | MEDICAL [...] St | [place] | [phone] | | [facility] | | [address] | | | - LABORATORY | | | | + + + + + POC Glucose (01/09/2019 9:36 PM PDT) + +-------+ + + + | Component | Value | Ref Range | Performed | Pathologist | | | | | At | Signature | + +-------+ + + + | Glucose, | 108 | 70 - 109 mg/dL | [facility] [...] [address] | [place] | [phone] | | [facility] | | [address] | | | - LABORATORY | | | | + + + + + POC Glucose (01/09/2019 5:38 PM PDT) + +-------+ + + + | Component | Value | Ref Range | Performed | Pathologist | | | | | At | Signature | + +-------+ + + + | Glucose, | 89 | 70 - 109 mg/dL | [facility] [...] St | [place] | [phone] | | [facility] | | [id number] | | | - LABORATORY | | | | + + + + + POC Glucose (01/09/2019 12:35 PM PDT) + +-------+ + + + | Component | Value | Ref Range | Performed | Pathologist | | | | | At | Signature | + +-------+ + + + | Glucose, | 87 | 70 - 109 mg/dL | [facility] | | [facility] | | | [facility] | | | | | | [facility] [...] + | [facility] | [address] | [place] | [phone] | | [facility] | | [id number] | | | - LABORATORY | | | | + + + + + MRI Foot Left wo Contrast (01/09/2019 12:03 PM PDT) + + | Specimen | + + | | + + + + + | Narrative | Performed At | + + + | UNENHANCED MRI LEFT FOOT 01/09/2019 11:57 AM CLINICAL HISTORY: LLE | [facility] | | cellulitis, r/o osteomyelitis COMPARISON: Radiographs the | | | previous day, MRI and radiographs August 2018 TECHNIQUE: The | | | following 3T MR sequences of the left foot were obtained: 1. Axial | | | and sagittal T1 and STIR. 2. Coronal T1. The patient was too | | | uncomfortable to complete coronal STIR imaging. FINDINGS: Several | | | sequences are somewhat degraded by motion. 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 There is some ill-definition distally within the residual | | | second and third metatarsals, and some marrow edema is visible as | | | well. A focal defect is suggested in the plantar cutaneous tissues | | | at this level and there is thickening and ill-definition of the | | | intervening soft tissues. Ill-defined low signal regions in the | | | soft tissues at this level could reflect the presence of gas but are | | | non-specific. Some patchy marrow edema is now apparent in the mid to | | | distal fourth metatarsal as well, extending to the articular surface | | | of the metatarsal head. A cutaneous defect is visible distally in | | | the fourth digit, and there is signal alteration and ill-definition | | | of the underlying distal phalanx. Some marrow edema is also | | | questioned within the middle phalanx. The fourth proximal phalanx | | | appears grossly normal. No marrow edema is visible within the first | | | or fifth rays or within the imaged tarsals. There is generalized | | | myofascial and subcutaneous edema throughout the imaged foot. No | | | defined fluid collection is evident. Evaluation of the tendinous | | | structures is limited. IMPRESSION - 1. ILL-DEFINITION OF THE | | | RESIDUAL SECOND AND THIRD METATARSALS DISTALLY WITH SOME ASSOCIATED | | | MARROW EDEMA AND THICKENING AND ILL-DEFINITION OF THE UNDERLYING | | | PLANTAR SOFT TISSUES EXTENDING TO A SUSPECTED CUTANEOUS DEFECT. THIS | | | MAY BE POSTSURGICAL TO SOME DEGREE HOWEVER RESIDUAL OR RECURRENT | | | INFECTION CANNOT BE EXCLUDED. SOME LOW SIGNAL WITHIN THE SOFT | | | TISSUES AT THIS LEVEL COULD REFLECT THE PRESENCE OF GAS ALTHOUGH THIS | | | WAS NOT CONFIDENTLY VISIBLE ON RECENT RADIOGRAPHY. 2. SOFT | | | TISSUE DEFECT DISTALLY IN THE FOURTH DIGIT WITH FINDINGS SUSPICIOUS | | | FOR OSTEOMYELITIS INVOLVING THE DISTAL PHALANX AND POSSIBLY THE | | | MIDDLE PHALANX. 3. NEW PATCHY MARROW EDEMA IN THE MID TO DISTAL | | | FOURTH METATARSAL, POSSIBLY A STRESS RESPONSE FROM ALTERED WALKING | | | MECHANICS. OSTEOMYELITIS IS CONSIDERED LESS LIKELY. 4. | | | GENERALIZED MYOFASCIAL AND SUBCUTANEOUS EDEMA SUGGESTING CELLULITIS | | | AND MYOFASCIITIS, WITHOUT DEFINED FLUID COLLECTION. Dictated and | | | Signed by: Chacorta Schulz MD Electronically signed: 01/09/2019 1:02 PM | | | | | + + + + + | Procedure Note | + + | Ramy, Rad Results In - 01/09/2019 1:05 PM PDT UNENHANCED MRI LEFT FOOT 01/09/2019 11:57 | | AMCLINICAL HISTORY: LLE cellulitis, r/o osteomyelitis COMPARISON: Radiographs the | | previous day, MRI and radiographs August 2018 TECHNIQUE: The following 3T MR sequences | | of the left foot were obtained:1. Axial and sagittal T1 and STIR.2. Coronal T1. The | | patient was too uncomfortable to complete coronal STIRimaging.FINDINGS: Several | | sequences are somewhat degraded by motion. 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 There is some ill-definition distally within | | the residual second and thirdmetatarsals, and some marrow edema is visible as well. A | | focal defect issuggested in the plantar cutaneous tissues at this level and there is | | thickeningand ill-definition of the intervening soft tissues. Ill-defined low | | signalregions in the soft tissues at this level could reflect the presence of gas butare | | non-specific. Some patchy marrow edema is now apparent in the mid to distalfourth | | metatarsal as well, extending to the articular surface of the metatarsalhead. A | | cutaneous defect is visible distally in the fourth digit, and there issignal alteration | | and ill-definition of the underlying distal phalanx. Somemarrow edema is also | | questioned within the middle phalanx. The fourth proximalphalanx appears grossly | | normal. No marrow edema is visible within the first orfifth rays or within the imaged | | tarsals. There is generalized myofascial andsubcutaneous edema throughout the imaged | | foot. No defined fluid collection isevident. Evaluation of the tendinous structures is | | limited.IMPRESSION -1. ILL-DEFINITION OF THE RESIDUAL SECOND AND THIRD METATARSALS | | DISTALLY WITHSOME ASSOCIATED MARROW EDEMA AND THICKENING AND ILL-DEFINITION OF THE | | UNDERLYINGPLANTAR SOFT TISSUES EXTENDING TO A SUSPECTED CUTANEOUS DEFECT. THIS MAY | | BEPOSTSURGICAL TO SOME DEGREE HOWEVER RESIDUAL OR RECURRENT INFECTION CANNOT BEEXCLUDED. | | SOME LOW SIGNAL WITHIN THE SOFT TISSUES AT THIS LEVEL COULD REFLECTTHE PRESENCE OF GAS | | ALTHOUGH THIS WAS NOT CONFIDENTLY VISIBLE ON RECENTRADIOGRAPHY.2. SOFT TISSUE DEFECT | | DISTALLY IN THE FOURTH DIGIT WITH FINDINGS SUSPICIOUS FOROSTEOMYELITIS INVOLVING THE | | DISTAL PHALANX AND POSSIBLY THE MIDDLE PHALANX.3. NEW PATCHY MARROW EDEMA IN THE MID TO | | DISTAL FOURTH METATARSAL, POSSIBLY ASTRESS RESPONSE FROM ALTERED WALKING MECHANICS. | | OSTEOMYELITIS IS CONSIDEREDLESS LIKELY.4. GENERALIZED MYOFASCIAL AND SUBCUTANEOUS EDEMA | | SUGGESTING CELLULITIS ANDMYOFASCIITIS, WITHOUT DEFINED FLUID COLLECTION.Dictated and | | Signed by: Chacorta Schulz MD Electronically signed: 01/09/2019 1:02 PM | |PLANTAR SOFT TISSUES EXTENDING TO A SUSPECTED CUTANEOUS DEFECT. THIS MAY BE | |POSTSURGICAL TO SOME DEGREE HOWEVER RESIDUAL OR RECURRENT INFECTION CANNOT BE | |EXCLUDED. SOME LOW SIGNAL WITHIN THE SOFT TISSUES AT THIS LEVEL COULD REFLECT | |THE PRESENCE OF GAS ALTHOUGH THIS WAS NOT CONFIDENTLY VISIBLE ON RECENT | |RADIOGRAPHY. | | | |2. SOFT TISSUE DEFECT DISTALLY IN THE FOURTH DIGIT WITH FINDINGS SUSPICIOUS FOR | |OSTEOMYELITIS INVOLVING THE DISTAL PHALANX AND POSSIBLY THE MIDDLE PHALANX. | | | |3. NEW PATCHY MARROW EDEMA IN THE MID TO DISTAL FOURTH METATARSAL, POSSIBLY A | |STRESS RESPONSE FROM ALTERED WALKING MECHANICS. OSTEOMYELITIS IS CONSIDERED | |LESS LIKELY. | | | |4. GENERALIZED MYOFASCIAL AND SUBCUTANEOUS EDEMA SUGGESTING CELLULITIS AND | |MYOFASCIITIS, WITHOUT DEFINED FLUID COLLECTION. | | | |Dictated and Signed by: Chacorta Schulz MD | | Electronically signed: 01/09/2019 1:02 PM | + + + +---------+ + + | Performing | Address | City/State/Zipcode | Phone Number | | Organization | | | | + +---------+ + + | [facility] | | | | + +---------+ + + POC Glucose (01/09/2019 6:45 AM PDT) + +--------+ + + + | Component | Value | Ref Range | Performed | Pathologist | | | | | At | Signature | + +--------+ + + + | Glucose, | 68 (L) | 70 - 109 mg/dL | [facility] | | | POC | | | [facility] | | | | | | [facility] [...] [address] | [place] | [phone] | | [facility] | | [address] | | | - LABORATORY | | | | + + + + + Culture, Anaerobic (01/09/2019 6:00 AM PDT) + + + + + [...] + | Tissue - Entire | | fourth toe (body | | structure) | + + + + + + + | Performing | Address | City/State/Zipcode | Phone Number | | Organization | | | | + + + + + | [facility] | [address] | [place] | [phone] | | [facility] | | [address] | | | - LABORATORY | | | | + + + + + Culture, Wound, Smear (01/09/2019 6:00 AM PDT) + + + + + + | Component | Value | Ref Range | Performed | Pathologist | | | | | At | Signature | + + + + + + | Culture | 3+ Enterococcus | | [facility] | | | | faecalisComment: | | [facility] | | | | Combination therapy of | | MEDICAL | | | | ampicillin, penicillin, | | CENTER - | | | | or vancomycin (for | | LABORATORY | | | | susceptible strains), | | | | | | plus an aminoglycoside, | | | | | | is usually indicated for | | | | | | serious enterococcal | | | | | | infections, such as | | | | | | endocarditis, unless | | | | | | high-level resistance to | | | | | | both gentamicin and | | | | | | streptomycin is | | | | | | documented; such | | | | | | combinations are | | | | | | predicted to result in | | | | | | synergistic killing of | | | | | | the enterococcus. | | | | + + + + + + | Culture | 2+ Streptococcus | | [facility] | | | | viridans group | | [facility] | | | | | | [facility]ICAL | | | | | | CENTER - | | | | | | LABORATORY | | + + + + + + | Gram Stain | 1+ White Blood Cells | | [facility] | | | Result | | | [facility] | | | | | | MEDICAL | | | | | | CENTER - | | | | | | LABORATORY | | + + + + + + | Gram Stain | 2+ Epithelial cells | | [facility] | | | Result | | | [facility] | | | | | | [facility] | | | | | | CENTER - | | | | | | LABORATORY | | + + + + + + | Gram Stain | No organisms seen | | [facility] | | | Result | | | [facility] | | | | | | MEDICAL | | | | | | CENTER - | | | | | | LABORATORY | | + + + + + + + + | Specimen | + + | Tissue - Entire left | | lower leg (body | | structure) | + + + + +--------+ + | Organism | Antibiotic | Method | Susceptibility | + + +--------+ + | Enterococcus | Ampicillin | | <=2 ug/mL: | | faecalis | | | Sensitive | + + +--------+ + | Enterococcus | Penicillin G | | 4 ug/mL: Sensitive | | faecalis | | | | + + +--------+ + | Enterococcus | Vancomycin | | <=0.5 ug/mL: | | faecalis | | | Sensitive | + + +--------+ + | Streptococcus | Ampicillin | | <=0.25 ug/mL: | | viridans group | | | Sensitive | + + +--------+ + | Streptococcus | Clindamycin | | <=0.25 ug/mL: | | viridans group | | | Sensitive | + + +--------+ + | Streptococcus | Erythromycin | | >=8 ug/mL: | | viridans group | | | Resistant | + + +--------+ + | Streptococcus | Levofloxacin | | 0.5 ug/mL: | | viridans group | | | Sensitive | + + +--------+ + | Streptococcus | Linezolid | | <=2 ug/mL: | | viridans group | | | Sensitive | + + +--------+ + | Streptococcus | Moxifloxacin | | 0.12 ug/mL: | | viridans group | | | Sensitive | + + +--------+ + | Streptococcus | Penicillin G | | <=0.06 ug/mL: | | viridans group | | | Sensitive | + + +--------+ + | Streptococcus | Tetracycline | | <=0.25 ug/mL: | | viridans group | | | Sensitive | + + +--------+ + | Streptococcus | Tigecycline | | <=0.06 ug/mL: | | viridans group | | | Sensitive | + + +--------+ + | Streptococcus | Vancomycin | | 0.5 ug/mL: | | viridans group | | | Sensitive | + + +--------+ + + + + + + | Performing | Address | City/State/Zipcode | Phone Number | | Organization | | | | + + + + + | [facility] | [address] | [place] | [phone] | | [facility] | | [address] | | | - LABORATORY | | | | + + + + + Culture, MRSA (01/09/2019 6:00 AM PDT) + + + + + + | Component | Value | Ref Range | Performed | Pathologist | | | | | At | Signature | + + + + + + | Culture | Negative for MRSA by | | [facility] | | | | chromogenic agar method | | [facility] | | | | | | [facility]ICAL | | | | | | CENTER - | | | | | | LABORATORY | | + + + + + + + + | Specimen | + + | Tissue - Entire left | | lower leg (body | | structure) | + + + + + + + | Performing | Address | City/State/Zipcode | Phone Number | | Organization | | | | + + + + + | [facility] | [address] | [place] | [phone] | | [facility] | | [address] | | | - LABORATORY | | | | + + + + + Phosphorus (01/09/2019 5:48 AM PDT) + +---------+ + + + | Component | Value | Ref Range | Performed | Pathologist | | | | | At | Signature | + +---------+ + + + | Phosphorus | 7.1 (H) | 2.4 - 5.1 mg/dL | [facility] | | | | [...] [address] | [place] | [phone] | | [facility] | | [address] | | | - LABORATORY | | | | + + + + + CBC with Differential (01/09/2019 5:48 AM PDT) + + + + + + | Component | Value | Ref Range | Performed | Pathologist | | | | | At | Signature | + + + + + + | WBC | 8.8 | 4.0 - 11.0 K/uL | [facility] [...] | | | | M/uL | [facility] | | | | | | [facility]ICAL | | | | | | CENTER - | | | | | | LABORATORY | | + + + + + + | Hemoglobin | 10.9 (L) | 13.5 - 18.0 | [facility] | | | | | g/dL | [facility] | | | | | | MEDICAL | | | | | | CENTER - | | | | | | LABORATORY | | + + + + + + | Hematocrit | 33.7 (L) | 40.0 - 51.0 % | [facility] | | | | | | [facility] | | | | | | MEDICAL | | | | | | CENTER - | | | | | | LABORATORY | | + + + + + + | MCV | 88.5 | 83.0 - 101.0 fL | [facility] | | | | | | [facility] | | | | | | [facility]ICAL | | | | | | CENTER - | | | | | | LABORATORY | | + + + + + + | MCH | 28.6 | 28.0 - 35.0 pg | [facility] | | | | | | [facility] | | | | | | MEDICAL | | | | | | CENTER - | | | | | | LABORATORY | | + + + + + + | MCHC | 32.3 | 32.0 - 36.0 | [facility] | | | | | g/dL | [facility] | | | | | | MEDICAL | | | | | | CENTER - | | | | | | LABORATORY | | + + + + + + | RDW-CV | 18.3 (H) | <15.0 % | [facility] | | | | | | [facility] | | | [facility] | | [facility]ICAL | | | | | | CENTER - | | | | | | LABORATORY | | + + + + + + | RDW-SD | 59.7 (H) | 35.1 - 46.3 fL | [facility] | | | | | | [facility] | | | | | | MEDICAL | | | | | | CENTER - | | | | | | LABORATORY | | + + + + + + | Platelet | 244 | 140 - 440 K/uL | [facility] | | | Count | | | [facility] | | | | | | MEDICAL | | | | | | CENTER - | | | | | | LABORATORY | | + + + + + + | MPV | 9.4 | 6.5 - 12.4 fL | [facility] | | | | | | [facility] | | | | | | [facility]ICAL | | | | | | CENTER - | | | | | | LABORATORY | | + + + + + + | % | 66.4 | 45.0 - 82.0 % | [facility] | | | Neutrophils | | | [facility] | | | | | | MEDICAL | | | | | | CENTER - | | | | | | LABORATORY | | + + + + + + | % | 20.2 | 20.0 - 45.0 % | [facility] | | | Lymphocytes | | | [facility] | | | | | | MEDICAL | | | | | | CENTER - | | | | | | LABORATORY | | + + + + + + | % Monocytes | 11.4 | 4.0 - 12.0 % | [facility] | | | | | | [facility] | | | | | | MEDICAL | | | | | | CENTER - | | | | | | LABORATORY | | + + + + + + | % | 0.8 | 0.0 - 5.0 % | [facility] | | | Eosinophils | | | [facility] | | | | | | MEDICAL | | | | | | CENTER - | | | | | | LABORATORY | | + + + + + + | % Basophils | 0.9 | 0.0 - 1.0 % | [facility] | | | | | | [facility] | | | | | | MEDICAL | | | | | | CENTER - | | | | | | LABORATORY | | + + + + + + | % Immature | 0.3 | 0.0 - 0.4 % | [facility] | | | Granulocyte | | | [facility] | | | s | | | MEDICAL | | | | | | CENTER - | | | | | | LABORATORY | | + + + + + + | Absolute | 5.86 | 1.80 - 8.50 | [facility] | | | Neutrophils | | K/uL | [facility] | | | | | | MEDICAL | | | | | | CENTER - | | | | | | LABORATORY | | + + + + + + | Absolute | 1.78 | 0.60 - 3.20 | [facility] | | | Lymphocytes | | K/uL | [facility] | | | | | | MEDICAL [...] | Absolute | 0.07 | 0.00 - 0.40 | [facility] | [...] | | Basophils | | K/uL | [facility] | [...] | | | | WBCs | [facility] | | | | | | MEDICAL | | | | | | CENTER - | | | | | | LABORATORY | | + + + + + + | Absolute | 0.00 | 0.00 - 0.01 | [facility] | | | nRBC | | K/uL | [facility] | | | | | | MEDICAL [...] + | [facility] | [address] | [place] | [phone] | | [facility] | | [address] | | | - LABORATORY | | | | + + + + + Basic Metabolic Panel (01/09/2019 5:48 AM PDT) + + + + + + | Component | Value | Ref Range | Performed | Pathologist | | | | | At | Signature | + + + + + + | Na | 134 (L) | 136 - 145 | [facility] | | | | | mmol/L | [facility] | | | | | | [facility] | | | | | | CENTER - | | | | | | LABORATORY | | + + + + + + | K | 4.5 | 3.4 - 5.1 | [facility] | | | | | mmol/L | [facility] | | | | | | MEDICAL | | | | | | CENTER - | | | | | | LABORATORY | | + + + + + + | Cl | 94 (L) | 98 - 107 mmol/L | [facility] | | | | | | [facility] | | | | | | [facility]ICAL | | | | | | CENTER - | | | | | | LABORATORY | | + + + + + + | CO2 | 28 | 20 - 31 mmol/L | [facility] | | | | | | [facility] | | | | | | [facility]ICAL | | | | | | CENTER - | | | | | | LABORATORY | | + + + + + + | Anion Gap | 12 | 3 - 16 mmol/L | [facility] | | | | | | [facility] | | | | | | [facility]ICAL | | | | | | CENTER - | | | | | | LABORATORY | | + + + + + + | Glucose | 74 | 60 - 106 mg/dL | [facility] | | | | | | [facility] | | | | | | MEDICAL | | | | | | CENTER - | | | | | | LABORATORY | | + + + + + + | BUN | 54 (H) | 9 - 23 mg/dL | [facility] | | | | | | [facility] | | | | | | [facility]ICAL | | | | | | CENTER - | | | | | | LABORATORY | | + + + + + + | Creatinine | 7.98 ()Comment: | 0.70 - 1.30 | [facility] | | | | Critical value | mg/dL | [facility] | | | | creatinine called to and | | MEDICAL | | | | repeated back by Romelia | | CENTER - | | | | DONA Carlson. 01-09-2019 @ | | LABORATORY | | | | 0705. [id number] | | | | + + + + + + | eGFR if not | 7 (L)Comment: GLOMERULAR | >=60 | [facility] | | | | FILTRATION | mL/min/1.73m2 | [facility] | | | [facility] | RATE,ESTIMATED | | MEDICAL | | | | mL/min/1.37r8Fwnw than | | CENTER - | | [...] + + + + | BUN/Creatin | 6.8 | | [facility] | | | ine [...] St | [place] | [phone] | | [facility] | | [address] | | | - LABORATORY | | | | + + + + + POC Glucose (01/08/2019 10:37 PM PDT) + +---------+ + + + | Component | Value | Ref Range | Performed | Pathologist | | | | | At | Signature | + +---------+ + + + | Glucose, | 125 (H) | 70 - 109 mg/dL | [facility] | | | POC | | | [facility] | | | | | | MED[facility] [...] + | [facility] | [address] | [place] | [phone] | | [facility] | | [address] | | | - LABORATORY | | | | + + + + + XR Foot Left 3 + Vw (01/08/2019 6:51 PM PDT) + + | Specimen | + + | | + + + + + | Narrative | Performed At | + + + | CLINICAL INFORMATION: Poss. Infection.. COMPARISON: None | [facility] | | available. FINDINGS: 3 views of the left foot. Indication | | | changes of the second and third digits distal to the mid/distal | | | aspect of the metatarsals. Extensive periostitis noted at the distal | | | aspect of the remaining second and third metatarsals. The | | | periostitis demonstrates irregular margins/erosions. Erosive | | | changes are also noted at the distal aspect of the fourth distal | | | phalanx. Diffuse moderate soft tissue swelling. Extensive | | | arterial vascular calcifications. Mild midfoot degenerative | | | changes. Calcaneal enthesophytes are noted. IMPRESSION - | | | Findings are compatible with osteomyelitis involving the fourth digit | | | distal phalanx and distal margin of the partially amputated second | | | and third metatarsals. Extensive soft tissue edema most likely | | | represents cellulitis. Dictated and Signed by: Amilcar Cha | | | Electronically signed: 01/09/2019 8:53 AM | | + + + + + | Procedure Note | + + | Ramy, Rad Results In - 01/09/2019 8:56 AM PDT CLINICAL INFORMATION: Poss. Infection.. | | | | COMPARISON: None available. | | | | FINDINGS: | | 3 views of the left foot. | | | | Indication changes of the second and third digits distal to the mid/distal | | aspect of the metatarsals. Extensive periostitis noted at the distal aspect of | | the remaining second and third metatarsals. The periostitis demonstrates | | irregular margins/erosions. Erosive changes are also noted at the distal aspect | | of the fourth distal phalanx. Diffuse moderate soft tissue swelling. | | | | Extensive arterial vascular calcifications. | | | | Mild midfoot degenerative changes. | | | | Calcaneal enthesophytes are noted. | | | | IMPRESSION - Findings are compatible with osteomyelitis involving the fourth | | digit distal phalanx and distal margin of the partially amputated second and | | third metatarsals. Extensive soft tissue edema most likely represents | | cellulitis. | | | | Dictated and Signed by: Amilcar Cha MD | | Electronically signed: 01/09/2019 8:53 AM | + + + +---------+ + + | Performing | Address | City/State/[facility] | Phone Number | | Organization | | | | + +---------+ + + | [facility] | | | | + +---------+ + + POC Glucose (01/08/2019 6:22 PM PDT) + +-------+ + + + | Component | Value | Ref Range | Performed | Pathologist | | | | | At | Signature | + +-------+ + + + | Glucose, | 100 | 70 - 109 mg/dL | [facility] [...] St | [place] | [phone] | | [facility] | | [address] | | | - LABORATORY | | | | + + + + + Culture, Blood (01/08/2019 4:44 PM PDT) + + + + + + | Component | Value | Ref Range | Performed | Pathologist | | | | | At | Signature | + + + + + + | Culture | No growth after 5 days | | [facility] | | | | incubation. | | [facility] | | | | | | MEDICAL [...] + | [facility] | [address] | [place] | [phone] | | [facility] | | [address] | | | - LABORATORY | | | | + + + + + Procalcitonin (01/08/2019 4:36 PM PDT) + + + + + + | Component | Value | Ref Range | Performed | Pathologist | | | | | At | Signature | + + + + + + | Procalciton | 0.98 (H) | <=0.50 ng/mL | [facility] | | | in | | | [facility] | | | | | | MEDICAL | | | | | | CENTER - | | | | | | LABORATORY | | + + + + + + | Comment | Comment: < 0.50 | | [facility] | | | | ng/mL:Procalcitonin | | [facility] | | | | levels below 0.[address] | [place] | [phone] | | [facility] | | [address] | | | - LABORATORY | | | | + + + + + Culture, Blood (01/08/2019 4:36 PM PDT) + + + + + + | Component | Value | Ref Range | Performed | Pathologist | | | | | At | Signature | + + + + + + | Culture | No growth after 5 days | | [facility] | | | | incubation. | | [facility] | | | | | | MEDICAL [...] + | [facility] | [address] | [place] | [phone] | | [facility] | | [address] | | | - LABORATORY | | | | + + + + + Lactic Acid (01/08/2019 4:36 PM PDT) + +-------+ + + + | Component | Value | Ref Range | Performed | Pathologist | | | | | At | Signature | + +-------+ + + + | Lactate | 0.8 | 0.4 - 2.0 | [facility] | | | | | [...] St | [place] | [phone] | | [facility] | | [address] | | | - LABORATORY | | | | + + + + + Comprehensive Metabolic Panel (01/08/2019 4:36 PM PDT) + + + + + + | Component | Value | Ref Range | Performed | Pathologist | | | | | At | Signature | + + + + + + | Na | 134 (L) | 136 - 145 | [facility] | | | | | mmol/L | [facility] | | | | | | MEDICAL | | | | | | CENTER - | | | | | | LABORATORY | | + + + + + + | K | 4.3 | 3.4 - 5.1 | [facility] | | | | | mmol/L | [facility] | | | | | | MEDICAL | | | | | | CENTER - | | | | | | LABORATORY | | + + + + + + | Cl | 94 (L) | 98 - 107 mmol/L | [facility] | | | | | | [facility] | | | | | | [facility]ICAL | | | | | | CENTER - | | | | | | LABORATORY | | + + + + + + | CO2 | 29 | 20 - 31 mmol/L | [facility] | | | | | | [facility] | | | | | | [facility]ICAL | | | | | | CENTER - | | | | | | LABORATORY | | + + + + + + | Anion Gap | 11 | 3 - 16 mmol/L | [facility] | | | | | | [facility] | | | | | | [facility] [...] [facility] | | [facility] | [facility] | | | | | | [facility] - | | | | | | LABORATORY | | + + + + + + | Creatinine | 7.12 (H) | 0.70 - 1.30 | [facility] | | | | | mg/dL | [facility] | | | | | | MEDICAL | | | | | | CENTER - | | | | | | LABORATORY | | + + + + + + | eGFR if not | 8 (L) | >=60 | [facility] | | | | | mL/min/1.73m2 | [facility] | | | [facility] | | | [facility]ICAL | | | | | | CENTER - | | | | | | LABORATORY | | + + + + + + | Calcium | 9.0 | 8.7 - 10.4 | [facility] | | | | | mg/dL | [facility] | | | | | | MEDICAL | | | | | | CENTER - | | | | | | LABORATORY | | + + + + + + | Albumin | 3.9 | 3.2 - 4.8 g/dL | [facility] | | | | | | [facility] | | | | | | [facility]ICAL | | | | | | CENTER - | | | | | | LABORATORY | | + + + + + + | Bilirubin | 0.9 | 0.3 - 1.2 mg/dL | [facility] | | | Total | | | [facility] | | | | | | MEDICAL | | | | | | CENTER - | | | | | | LABORATORY | | + + + + + + | Total | 7.7 | 5.7 - 8.2 g/dL | [facility] | | | Protein | | | [facility] | | | | | | MEDICAL | | | | | | CENTER - | | | | | | LABORATORY | | + + + + + + | AST | 21 | 0 - 34 U/L | [facility] | | | | | | [facility] | | | | | | MEDICAL | | | | | | CENTER - | | | | | | LABORATORY | | + + + + + + | ALT | 9 (L) | 10 - 49 U/L | [facility] | | | | | | [facility] | | | | | | [facility]ICAL | | | | | | CENTER - | | | | | | LABORATORY | | + + + + + + | Alkaline | 242 (H) | 46 - 116 U/L | [facility] | | | Phosphatase | | | [facility] | | | | | | MEDICAL | | | | | | CENTER - | | | | | | LABORATORY | | + + + + + + | Globulin | 3.8 | 2.1 - 3.8 g/dL | [facility] | | | | | | [facility] | | | | | | [facility]ICAL | | | | | | CENTER - | | | | | | LABORATORY | | + + + + + + | Albumin/Ofelia | 1.0 | 0.8 - 1.9 | [facility] | | | bulin Ratio | | | [facility] | | | | | | MEDICAL | | | | | | CENTER - | | | | | | LABORATORY | | + + + + + + | BUN/Creatin | 6.2 | | [facility] | | | ine Ratio | | | [facility] | | | | | | MEDICAL [...] + | [facility] | [address] | [place], [place] | [phone] | | [facility] | | [id number] | | | - LABORATORY | | | | + + + + + CBC with Differential (01/08/2019 4:36 PM PDT) + + + + + [...] + + + + | RBC | 4.03 (L) | 4.30 - 5.70 | [facility] [...] + + + + | Hematocrit | 35.6 (L) | 40.0 - 51.0 % | [facility] | | | | | | [facility] | | | | | | [facility] | | | | | | CENTER - | | | | | | LABORATORY | | + + + + + + | MCV | 88.3 | 83.0 - 101.0 fL | [facility] | | | | | | [facility] | | | | | | [facility] | | | | | | C[facility] - | | | | | | LABORATORY | | + + + + + + | MCH | 29.0 | 28.0 - 35.0 pg | [facility] | | | | | | [facility] | | | | | | [facility] | | | | | | CENTER - | | | | | | LABORATORY | | + + + + + + | MCHC | 32.9 | 32.0 - 36.0 | [facility] | | | | | g/dL | [facility] | | | | | | [facility]ICAL | | | | | | CENTER - | | | | | | LABORATORY | | + + + + + + | RDW-CV | 18.1 (H) | <15.0 % | [facility] | | | | | | [facility] | | | | | | [facility] | | | | | | [facility] - | | | | | | LABORATORY | | + + + + + + | RDW-SD | 58.8 (H) | 35.1 - 46.3 fL | [facility] | | | | | | [facility] | | | [facility] | | [facility] | | | | | | [facility] - | | | | | | LABORATORY | | + + + + + + | Platelet | 265 | 140 - 440 K/uL | [facility] | | | Count | | | [facility] | | | | | | [facility] | | | | | | CENTER - | | | | | | LABORATORY | | + + + + + + | MPV | 9.0 | 6.5 - 12.4 fL | [facility] | | | | | | [facility] | | | | | | [facility] | | | | | | CENTER - | | | | | | LABORATORY | | + + + + + + | % | 72.9 | 45.0 - 82.0 % | [facility] | | | Neutrophils | | | [facility] | | | [facility] | [facility] | [facility] | [facility] - | | | | | | LABORATORY | | + + + + + + | % | 17.6 (L) | 20.0 - 45.0 % | [facility] | | | Lymphocytes | | | [facility] | | | | | | [facility] | | | | | | [facility] - | | | | | | LABORATORY | | + + + + + + | % Monocytes | 8.4 | 4.0 - 12.0 % | [facility] | | | | | | [facility] | | [facility] | [facility] | | | | | [facility] - | | | | | | LABORATORY | | + + + + + + | % | 0.1 | 0.0 - 5.0 % | [facility] | | | Eosinophils | | | [facility] | | | | | [facility] | | | | | | [facility] - | | | | | | LABORATORY | | + + + + + + | % Basophils | 0.7 | 0.0 - 1.0 % | [facility] | | | | | | [facility] | | [facility] | [facility] | | | | | [facility] - | | | | | | LABORATORY | | + + + + + + | % Immature | 0.3 | 0.0 - 0.4 % | [facility] | | | Granulocyte | | | [facility] | | | s | | | [facility]ICAL | | | | | | CENTER - | | | | | | LABORATORY | | + + + + + + | Absolute | 7.85 | 1.80 - 8.50 | [facility] | | | Neutrophils | | K/uL | [facility] | | | | | | [facility] | | | | | | [facility] - | | | | | | LABORATORY | | + + + + + + | Absolute | 1.89 | 0.60 - 3.20 | [facility] | | | Lymphocytes | | K/uL | [facility] | | | | | | [facility] | | | | | | [facility] - | | | | | | LABORATORY | | + + + + + + | Absolute | 0.90 | 0.00 - 1.00 | [facility] | | | Monocytes | | K/uL | [facility] | | | [facility] | [facility] | | | | | | [facility] - | | | | | | LABORATORY | | + + + + + + | Absolute | 0.01 | 0.00 - 0.40 | [facility] | | | Eosinophils | | K/uL | [facility] | | | | | [facility] | | | | | | [facility] - | | | | | | LABORATORY | | + + + + + + | Absolute | 0.08 | 0.00 - 0.10 | [facility] | | | Basophils | | K/uL | [facility] | | | | | | [facility] | | | | | | C[facility] - | | | | | | LABORATORY | | + + + + + + | Absolute | 0.03 | 0.00 - 0.03 | [facility] | | | Immature | | K/uL | [facility] | | | [facility] | | | MEDICAL | | | s | | | CENTER - | | | | | | LABORATORY | | + + + + + + | % nRBC | 0 | 0 - 2 per 100 | [facility] | | | | | WBCs | [facility] | | | | | [facility] | | | | | | CENTER - | | | | | | LABORATORY | | + + + + + + | Absolute | 0.00 | 0.00 - 0.01 | [facility] | | | nRBC | | K/uL | [facility] | [facility] | [facility] [...] St | [place] [address] [place] [address] | [phone] | | [facility] | | [address] | | | - LABORATORY | | | | + + + + + POC Glucose (01/08/2019 4:33 PM PDT) + +-------+ + + + | Component | Value | Ref Range | Performed | Pathologist | | | | | At | Signature | + +-------+ + + + | Glucose, | 93 | 70 - 109 mg/dL | [facility] [...] St | [place] | [phone] | | [facility] | | [address] | | | - LABORATORY | | | | + + + + + documented in this encounter Visit Diagnoses + + | Diagnosis | + + | Cellulitis of left lower extremity - Primary Cellulitis and abscess of leg, except | | foot | + + | Cellulitis, unspecified cellulitis site | + + | End stage renal disease (HCC) End stage renal disease | + + | Osteomyelitis of left foot, unspecified type (HCC) | + + | Essential hypertension Unspecified essential hypertension | + + | Anemia in ESRD (end-stage renal disease) (HCC) Anemia in chronic kidney disease | + + | Paroxysmal atrial flutter (HCC) Atrial flutter | + + | Osteomyelitis of fourth toe of left foot ([facility]) | + + | Diabetes mellitus, type II, insulin dependent ([facility]) Type II or unspecified type | | diabetes mellitus without mention of complication, not stated as uncontrolled | + + | Typical atrial flutter ([facility]) Atrial flutter | + + | ESRD (end stage renal disease) ([facility]) End stage renal disease | + + | Insulin dependent diabetes mellitus Type II or unspecified type diabetes mellitus | | without mention of complication, not stated as uncontrolled | + + | Peripheral artery disease (HCC) Unspecified disorders of arteries and arterioles | + + | Hyperlipidemia, unspecified hyperlipidemia type | + + | Diabetic ulcer of toe of right foot associated with diabetes mellitus due to | | underlying condition, with other ulcer severity (HCC) | + + | Diabetic ulcer of left midfoot associated with type 2 diabetes mellitus, with other | | ulcer severity (HCC) | + + | Dyslipidemia Other and unspecified hyperlipidemia | + + | Hypertension Unspecified essential hypertension | + + documented in this encounter Administered Medications + +--------+---------+------+------+------+ | Medication Order | MAR | Action | Dose | Rate | Site | | | Action | Date | | | | + +--------+---------+------+------+------+ + +---+ | albumin 25% IVPB 12.5 g 12.5 | | | g, Intravenous, Administer over | | | 60 Minutes, PRN, PRN | | | hypotension., Starting 01/11/19 | | | at 0705, For BP less than 90. | | | Dialysis use only., Dialysis | | + +---+ | | | + +---+ + +-------+ +---------+---+---+ | amoxicillin-clavulanate | Given | 01/12/20 | 1.5 | | | | (AUGMENTIN) 500-125 mg per tablet | | 19 1:06 | tablets | | | | 1.5 tablet 1.5 tablet, Oral, | | PM PDT | | | | | DAILY, First dose on 01/11/19 | | | | | | | at 1230, Indications: Cellulitis | | | | | | + +-------+ +---------+---+---+ +---+---+ | | | +---+---+ + +-------+ +--------+---+---+ | apixaban (ELIQUIS) tablet 2.5 | Given | 01/12/20 | 2.5 mg | | | | mg 2.5 mg, Oral, 2 TIMES DAILY, | | 19 3:25 | | | | | First dose on 01/11/19 at 1515 | | PM PDT | | | | + +-------+ +--------+---+---+ +---+---+ | | | +---+---+ + +---------+ +-----+-------+---+ | ceFAZolin (ANCEF, KEFZOL) 1 g | New Bag | 01/11/20 | 1 g | 100 | | | in sodium chloride 0.9% 50 mL | | 19 6:54 | | mL/hr | | | IVPB 1 g, Intravenous, | | PM PDT | | | | | Administer over 30 Minutes, EVERY | | | | | | | 24 HOURS (Daily), First dose | | | | | | | (after last modification) on Fri | | | | | | | 01/10/19 at 1845, Administer AFTER | | | | | | | HD on dialysis days Activate | | | | | | | system and mix before use., | | | | | | | Indications: Cellulitis | | | | | | + +---------+ +-----+-------+---+ +---+---+ | | | +---+---+ + +-------+ +--------+---+---+ | cholecalciferol (VITAMIN D-3) | Given | 01/12/20 | 2,000 | | | | tablet 2,000 Units 2,000 Units, | | 19 8:27 | Units | | | | Oral, DAILY, First dose on [facility] | | AM PDT | | | | | 01/09/19 at 0900 | | | | | | + +-------+ +--------+---+---+ +-------+ +--------+---+---+ | Given | 01/10/20 | 2,000 | | | | | 19 9:25 | Units | | | | | AM PDT | | | | +-------+ +--------+---+---+ +---+---+ | | | +---+---+ + +-------+ +-------+---+---+ | cinacalcet (SENSIPAR) tablet 60 | Given | 01/10/20 | 60 mg | | | | mg 60 mg, Oral, DAILY, First | | 19 9:25 | | | | | dose on [facility] 01/09/19 at 0900 | | AM PDT | | | | + +-------+ +-------+---+---+ + +---+ | | | + +---+ | dextrose 50% injection 12.5 g | | | 12.5 g, Intravenous, PRN, Low | | | Blood Sugar, Starting 01/08/19 | | | at 2057 | | + +---+ | | | + +---+ + +-------+ +-------+---+---+ | furosemide (LASIX) tablet 80 mg | Given | 01/10/20 | 80 mg | | | | 80 mg, Oral, DAILY, First dose | | 19 9:25 | | | | | on [facility] 01/09/19 at 0900 | | AM PDT | | | | + +-------+ +-------+---+---+ +---+---+ | | | +---+---+ + +-------+ +-------+---+---+ | heparin 1,000 units/mL | Given | 01/10/20 | 500 | | | | injection 500 Units 500 Units, | | 19 1:32 | Units | | | | Intravenous, WITH EACH DIALYSIS, | | PM PDT | | | | | Starting [facility] 01/09/19 at 1147, | | | | | | | Dialysis | | | | | | + +-------+ +-------+---+---+ +---+---+ | | | +---+---+ + +-------+ +-------+---+---+ | heparin 1,000 units/mL | Given | 01/12/20 | 500 | | | | injection 500 Units 500 Units, | | 19 8:09 | Units | | | | Intravenous, WITH EACH DIALYSIS, | | AM PDT | | | | | Starting 01/11/19 at 0705, | | | | | | | Dialysis | | | | | | + +-------+ +-------+---+---+ +---+---+ | | | +---+---+ + +---------+ + +---------+---+ | heparin in half-normal saline | New Bag | 01/10/20 | 200 | 4 mL/hr | | | 50 units/mL infusion 200 | | 19 1:38 | Units/hr | | | | Units/hr (4 mL/hr), at 4 mL/hr, | | PM PDT | | | | | Intravenous, CONTINUOUS, Starting | | | | | | | [facility] 01/09/19 at 1215, Dialysis | | | | | | + +---------+ + +---------+---+ +---+---+ | | | +---+---+ + +---------+ + +---------+---+ | heparin in half-normal saline | New Bag | 01/12/20 | 200 | 4 mL/hr | | | 50 units/mL infusion 200 | | 19 8:09 | Units/hr | | | | Units/hr (4 mL/hr), at 4 mL/hr, | | AM PDT | | | | | Intravenous, CONTINUOUS, Starting | | | | | | | 01/11/19 at 0730, For 12 | | | | | | | hours, Dialysis | | | | | | + +---------+ + +---------+---+ +---+---+ | | | +---+---+ + +-------+ +---------+---+---+ | HYDROcodone-acetaminophen | Given | 01/10/20 | 2 | | | | (NORCO) 5-325 mg per tablet 1-2 | | 19 2:24 | tablets | | | | tablet 1-2 tablet, Oral, EVERY 4 | | PM PDT | | | | | HOURS PRN, Pain, Starting Wed | | | | | | | 01/08/19 at 2056, If ineffective | | | | | | | use [place] 10/325 if ordered. If | | | | | | | not tolerated, use Percocet then | | | | | | | Oxycodone if ordered., | | | | | | + +-------+ +---------+---+---+ +---+---+ | | | +---+---+ + +-------+ + +---+ + | insulin glargine (LANTUS | Given | 01/11/20 | 25 Units | | Abdomen- | | SOLOSTAR) injection (pen) 25 | | 19 8:31 | | | RLQ | | Units 25 Units, Subcutaneous, | | PM PDT | | | | | NIGHTLY, First dose on Sun01/08/19 | | | | | | | at 2115 | | | | | | + +-------+ + +---+ + +-------+ + +---+ + | Given | 01/10/20 | 25 Units | | Abdomen- | | | 19 9:44 | | | LUQ | | | PM PDT | | | | +-------+ + +---+ + | Given | 01/09/20 | 25 Units | | Abdomen- | | | 19 10:37 | | | LLQ | | | PM PDT | | | | +-------+ + +---+ + + +---+ | | | + +---+ | lactated ringers (LR) infusion | | | at 10-100 mL/hr, Intravenous, | | | CONTINUOUS, Starting Sun01/10/19 | | | at 1430, TKO., Pre-op | | + +---+ | | | + +---+ + +-------+ +------+---+---+ | loperamide (IMODIUM) capsule 2 | Given | 01/12/20 | 2 mg | | | | mg 2 mg, Oral, EVERY 3 HOURS | | 19 12:44 | | | | | PRN, Diarrhea, Starting Fri | | PM PDT | | | | | 01/10/19 at 0522 | | | | | | + +-------+ +------+---+---+ +-------+ +------+---+---+ | Given | 01/12/20 | 2 mg | | | | | 19 9:36 | | | | | | AM PDT | | | | +-------+ +------+---+---+ | Given | 01/11/20 | 2 mg | | | | | 19 6:38 | | | | | | AM PDT | | | | +-------+ +------+---+---+ +---+---+ | | | +---+---+ + +-------+ +------+---+---+ | metoprolol tartrate (LOPRESSOR) | Given | 01/10/20 | 5 mg | | | | injection 5 mg 5 mg, | | 19 4:13 | | | | | Intravenous, EVERY 1 HOUR PRN, | | PM PDT | | | | | for HR consistently >110, | | | | | | | Starting [facility] 01/09/19 at 0304 | | | | | | + +-------+ +------+---+---+ +---+---+ | | | +---+---+ + +-------+ +-------+---+---+ | metoprolol tartrate (LOPRESSOR) | Given | 01/12/20 | 25 mg | | | | tablet 25 mg 25 mg, Oral, EVERY | | 19 6:10 | | | | | 6 HOURS (4 times per day), First | | AM PDT | | | | | dose on [facility] 01/09/19 at 0000, Hold | | | | | | | for SBP<100 or HR <60, | | | | | | + +-------+ +-------+---+---+ +-------+ +-------+---+---+ | Given | 01/12/20 | 25 mg | | | | | 19 12:23 | | | | | | AM PDT | | | | +-------+ +-------+---+---+ | Given | 01/11/20 | 25 mg | | | | | 19 5:11 | | | | | | PM PDT | | | | +-------+ +-------+---+---+ +---+---+ | | | +---+---+ + +-------+ +-------+---+---+ | pantoprazole (PROTONIX) DR | Given | 01/12/20 | 40 mg | | | | tablet 40 mg 40 mg, Oral, DAILY | | 19 6:54 | | | | | BEFORE BREAKFAST, First dose on | | AM PDT | | | | | [facility] 01/09/19 at 0730, Indication: | | | | | | | GERD | | | | | | + +-------+ +-------+---+---+ +-------+ +-------+---+---+ | Given | 01/11/20 | 40 mg | | | | | 19 6:38 | | | | | | AM PDT | | | | +-------+ +-------+---+---+ | Given | 01/10/20 | 40 mg | | | | | 19 5:50 | | | | | | AM PDT | | | | +-------+ +-------+---+---+ +---+---+ | | | +---+---+ + +---------+ +---------+-------+---+ | piperacillin-tazobactam (ZOSYN) | New Bag | 01/09/20 | 3.375 g | 200 | | | 3.375 g in sodium chloride 0.9% | | 19 5:06 | | mL/hr | | | 100 mL IVPB 3.375 g, | | PM PDT | | | | | Intravenous, Administer over 0.5 | | | | | | | Hours, ONCE, 01/08/19 at 1630, | | | | | | | For 1 dose, Activate system and | | | | | | | mix before use., Indications: | | | | | | | Cellulitis | | | | | | + +---------+ +---------+-------+---+ +---+---+ | | | +---+---+ + +---------+ +---------+ +---+ | piperacillin-tazobactam (ZOSYN) | New Bag | 01/11/20 | 3.375 g | 25 mL/hr | | | 3.375 g in sodium chloride 0.9% | | 19 8:30 | | | | | 100 mL IVPB 3.375 g, | | AM PDT | | | | | Intravenous, Administer over 4 | | | | | | | Hours, EVERY 12 HOURS INTERVAL, | | | | | | | First dose on Sun01/08/19 at 2130, | | | | | | | Extended-Infusion Zosyn | | | | | [...] | | | | | | Indications: LLE cellulitis | | | | | | + +---------+ +---------+ +---+ +---------+ +---------+ +---+ | New Bag | 01/10/20 | 3.375 g | 25 mL/hr | | | | 19 9:44 | | | | | | PM PDT | | | | +---------+ +---------+ +---+ | New Bag | 01/10/20 | 3.375 g | 25 mL/hr | | | | 19 10:07 | | | | | | AM PDT | | | | +---------+ +---------+ +---+ +---+---+ | | | +---+---+ + +-------+ +-------+---+---+ | rosuvastatin (CRESTOR) tablet | Given | 01/12/20 | 20 mg | | | | 20 mg 20 mg, Oral, DAILY, First | | 19 8:27 | | | | | dose on [facility] 01/09/19 at 0900 | | AM PDT | | | | + +-------+ +-------+---+---+ +-------+ +-------+---+---+ | Given | 01/10/20 | 20 mg | | | | | 19 9:26 | | | | | | AM PDT | | | | +-------+ +-------+---+---+ +---+---+ | | | +---+---+ + +-------+ + +---+---+ | sevelamer carbonate (RENVELA) | Given | 01/12/20 | 1,600 mg | | | | tablet 1,600 mg 1,600 mg, Oral, | | 19 12:32 | | | | | 3 TIMES DAILY WITH MEALS, First | | PM PDT | | | | | dose on [facility] 01/09/19 at 1200, Do | | | | | | | not cut or crush tablets., | | | | | | + +-------+ + +---+---+ +-------+ + +---+---+ | Given | 01/12/20 | 1,600 mg | | | | | 19 8:27 | | | | | | AM PDT | | | | +-------+ + +---+---+ | Given | 01/11/20 | 1,600 mg | | | | | 19 5:10 | | | | | | PM PDT | | | | +-------+ + +---+---+ + +---+ | | | + +---+ | sodium chloride 0.9% (NS) | | | infusion 250 mL at 100 mL/hr, | | | Intravenous, EVERY 30 MIN PRN, | | | PRN hypotension., Starting Sat | | | 01/11/19 at 0705, May administer 4 | | | doses/24 hours. For BP less than | | | 90. Dialysis use only, Dialysis | | + +---+ | | | + +---+ + +---------+ + +--------+---+ | vancomycin 1,500 mg in sodium | New Bag | 01/09/20 | 1,500 mg | 176.7 | | | chloride 0.9% 250 mL IVPB 1,500 | | 19 5:49 | | mL/hr | | | mg, Intravenous, Administer over | | PM PDT | | | | | 90 Minutes, ONCE, 01/08/19 at | | | | | | | 1730, For 1 dose, Keep in | | | | | | | refrigerator., Indications: | | | | | | | cellulitis | | | | | | + +---------+ + +--------+---+ +---+---+ | | | +---+---+ + +---------+ +--------+-------+---+ | vancomycin 500 mg in sodium | New Bag | 01/11/20 | 500 mg | 100 | | | chloride 0.9% 100 mL IVPB 500 | | 19 3:21 | | mL/hr | | | mg, Intravenous, Administer over | | AM PDT | | | | | 60 Minutes, ONCE, 01/10/19 at | | | | | | | 0100, For 1 dose, Activate system | | | | | | | and mix before use., | | | | | | | Indications: LLE cellulitis | | | | | | + +---------+ +--------+-------+---+ +---+---+ | | | +---+---+ documented in [...]
--- OUTSIDE RECORDS SUMMARY | ~2020-03-04 | XMS | Encounter Summary ---
Demographics + + + | Address | [address] | | | [place] [address] | + + + | Home Phone | | + + + | Preferred Language | Unknown | + + + | Marital Status | | + + + | Zoroastrian Affiliation | 1041 | + + + | Race | Unknown | + + + | Ethnic Group | Unknown | + + + Author + + + | Author | [facility] | | | and [place] | + + + | Organization | [facility] | | | and [place] [...] Team Providers + +------+ + | Care Software Quality Analyst Name | Role | Phone | [...] | mass | Chelane R, | [address] | | | | | Procedures | NEUROLOGICAL SURGERY TEACHER [address] [place] | | | | | MRI Abdomen | [address], | [place] | | | | | wo Contrast | [address] | [id number] | | | | | 10/18>PEND | REZA COBB, | Phone: | | | | | Y[facility]>MRI ABDOM | [place] [address] | [phone] | | | | | | Phone: | Fax: | | | | | | [phone] | | | | | | | Fax: | | | | | | | [phone] | | +--------+--------+ + + + + Reason for Visit + + + | Reason | Comments | + + + | Chronic Renal | stage five | | Failure | | + + + Encounter Details +--------+---------+ + + + | Date | Type | Department | Care Team | Description | +--------+---------+ + + + | 10/17/ | Office | [facility] | [place], | Chronic kidney | | 2012 | Visit | NEPHROLOGY [address] | [address] [address] | disease (CKD), stage | | | | [address] | [address], [place] | V ([facility]) (Primary | | | | [place], [place] | [address] [place], [place] | Dx); Type II or | | | | [address] | [address] | unspecified type | | | | [phone] | | diabetes mellitus | | | | | | with renal | | | | | | manifestations, | | | | | | uncontrolled ([facility]); | | | | | | Unspecified [...] ago when he was diagnosed with gregory whitetn. He has not seen a digital solution architect yet. According to Dr. Obrien note, an [...] size from previous study 03/29/10 . Previously [id number] mm, now [id number] mm. 90 cc of urine in bladder [...] pr efers to have MRI completed at [facility]. Follow up in one month, sooner [...] call with any questions or concern s: [phone]. Sincerely, TERRY Barnes documented i n this [...] | | | | PST | V ([facility]) | results section. | + +--------+ + + + documented in this encounter Results MRI Abdomen wo Contrast (10/28/2012 6:10 PM PST) + + | Specimen | + + | | + + + + + | Narrative | Performed At | + + + | [facility] | [facility] | | Department [address] [place] [address] | [facility] | | [ rep [phone]] [ rep [facility] | | [facility]] Signed | - IMAGING | | | | | Patient Name: CASE,CELSO Pena Physician: | | | FACK.01 : 1960 Age: 52 Sex: M Unit #: [id number] | | | Exam Date: 10/28/12 Location: IMG | | | Report #: [id number] Page: | | | %(RAD)RES..mtdd.print.filter("pg") of %(RAD) | | | RES..mtdd.print.filter("tpg") | | | | | | Accession Number: [id number] | | | MRI ABDOMEN WITHOUT IV CONTRAST CLINICAL HISTORY: A | | | 52-YEAR-OLD MALE WITH ADVANCED KIDNEY DISEASE, UNDERGOING EVALUATION | | | FOR RIGHT RENAL MASS SEEN ON ULTRASOUND. COMPARISON: | | | Renal ultrasound 10/15/2012 and 03/29/2010. TECHNIQUE: | | | Axial T10 in- and djk-pd-urbiz, T1 VIBE, T1 fat-sat VIBE, T2 HASTE; [...] Transcribed Date/Time: 10/28/2012 20:47 | | | Furnishings Conservator: <<Signature on File>> | | | | | | Kehinde Willis MD10/29/121939 <Electronically signed by Kehinde | | | Kristi Willis MD> Kehinde Willis MD 10/28/121809 | | | Furnishings Conservator: Tej [id number] | | | [place] | | + + + + + + + + | Performing | Address | City/State/Zipcode | Phone Number | | Organization | | | | + + + + + | [facility] | [address] | [place], [place] | [phone] | | [facility] | | [address] | | | - IMAGING | | [...] | 1.025 | | | | | [place], | | | | | | UA, [...] | Chronic kidney disease (CKD), stage V ([facility]) - Primary Chronic kidney disease, Stage V | + + | Type II or unspecified type diabetes mellitus with renal manifestations, | | uncontrolled(250.42) ([facility]) Type II or unspecified type diabetes mellitus [...]
--- OUTSIDE RECORDS SUMMARY | ~2020-03-04 | XMS | Encounter Summary ---
Demographics + + + | Address | [address] | | | [place] [address] | + + + | Home Phone | | + + + | Preferred Language | Unknown | + + + | Marital Status | | + + + | Bahai Affiliation | 1041 | + + + | Race | Unknown | + + + | Ethnic Group | Unknown | + + + Author + + + | Author | [facility] | | | and Scarana | + + + | Organization | [facility] | | [...] Team Providers + +------+ + | Care Coating Line Worker Name | Role | Phone | + [...] | +--------+ + + + + | 12/24/ | Documentati | SIMEON DICK | Kuo, Lexi W, | Dialysis | | 2014 | on | NEPHROLOGY [address] | MD [address] | (Asymptomatic) | | | | [address] | [address] [place] | | | | | [place], [place] | [place] [address] | | | | | [address] | [phone] | | | | | [phone] | | | +--------+ + + + [...] this encounter Progress Notes Dedra Camara - 12/26/2013 4:07 PM PDTHEMO progress note manually faxed to [place] [place], e-faxed to Frances Obrien MD on 12/26/13. Lexi Hollingsworth MD - 12/24/2013 2:18 PM PDT Comprehensive Dialysis Monthly Note Date of visit: 12/24/2013 Dialysis Clinic: [facility] Mode of dialysis: Hemodialysis Dialysis prescription: MWF, t=4.5 hr, Na 138, K 2, Ca 2.5, bicarb 37, BFR 475, EDW 125 kg Access: Left brachial-cephalic AVF created on 07/28/13 HPI: CELSO CARO is a 53 y.o. male with ESRD secondary to diabetic nephropathy. His co- morbidities include type 2 IDDM, hyperlipidemia, hepatitis C, morbid obesity. Pt initiated h emodialysis in Jun 2013. Pt underwent creation of left brachial-cephalic AVF on 07/28/[address] Angelo. Pt reports feeling well. His AVF has been functioning well. Pt reports occasional muscle cramps; no tingling. Pt was instructed by sandblaster glass to decreased cinacalcet to 30 mg three times a week. Pt reports he is taking TUMS at night. Pt denies chest pain, shortness of br eath, edema, dysuria. PMH: Patient Active Problem List Diagnosis Date Noted Unspecified hypertensive kidney disease with chronic kidney disease stage I through sta ge IV, or unspecified 09/22/2013 End stage renal disease 08/07/2013 Preventative health care 06/25/2013 Note Last Updated: [...] Outpatient Prescriptions Marked as Taking for the 12/24/13 encounter (Documentation) with Chris Kuo MD Medication Sig Dispense Refill aspirin 81 mg EC tablet Take 81 mg by mouth Daily. atorvaSTATin (LIPITOR) 20 mg tablet Take 1 tablet by mouth Daily. 30 tablet 5 B Zwcsxoa-N-Olbva Acid (OLEG-TEQUILA RX) 1 MG TABS Take 1 mg by mouth Daily. 30 each 11 calcium carbonate (TUMS) 500 mg chewable tablet Take 2 tablets by mouth nightly. Cholecalciferol (VITAMIN D3) 5000 UNITS CAPS Take 5,000 Units by mouth Daily. cinacalcet (SENSIPAR) 30 mg tablet Take 30 mg by mouth Three times a week. diltiazem (DILACOR XR) 180 mg 24 hr capsule Take 180 mg by mouth Daily. doxercalciferol (HECTOROL) 4 MCG/2ML injection Inject 5 mcg into the vein Three times a week. epoetin padilla (EPOGEN, PROCRIT) 10,000 units/mL injection Inject 3,300 Units into the ve in Three times a week. --On hold furosemide (LASIX) 40 mg tablet Take 40 mg by mouth Daily. insulin glargine (LANTUS) 100 units/mL injection Inject 110 Units under the skin nightl y. Iron Sucrose (VENOFER IV) 100 mg by IV Push route Once a [...] 25 mg by mouth Daily. EXAM: T 97.7, HR 80, BP 173/85, weight 128.1 kg, gain 3.6 kg Constitutional: Appears well-developed and well-nourished. No distress. Cardiovascular: Normal rate, regular rhythm and normal heart sounds. No peripheral edema. Lungs: Respiratory effort normal and breath sounds normal. No crackles or wheezes. Abdominal: Soft. Bowel sounds are normal. Neurological: Alert. Dialysis Access: LUE AVF cannulated with BFR 475 mL/min. December DIALYSIS LABS: Hemoglobin 10.5 / TSAT (15%) / Ferritin (338) / WBC 9.0 / PLT 269 Sodium 141 / Potassium 4.5 / Chloride 105 / Bicarb 20 / Creatinine 7.57 / BUN 56 Albumin 3.6 / Calcium 7.5 / Phosphate 5.4 / PTH 166 eKt/V 1.27 / URR 70% ASSESSMENT AND PLAN: 1. ESRD: Dialysis clearance is at goal with AVF. 2. Access: LUE AVF functioning well. 3. HTN/volume: High IDWG. Counseled pt about limiting his fluid intake. 4. Anemia due to ESRD: Hb drifted down; started on Epogen. Pt denies bleeding. -will increase maintenance Venofer to 100 mg Qweekly 5. Secondary hyperparathyroidism / mineral bone disease: Serum calcium is too low. Serum phos is at goal. PTH is at goal. -agree with decreasing cinacalcet to three times a week (done by sandblaster glass) -increase TUMS to 1000 mg qhs 6. Acid-base: Serum bicarb is decreased; pt reports some episodes of diarrhea. 7. Nutrition: On Liquacel supplementation. 8. Transplantation: Pt needs to optimize health; demonstrate participation and compliance w [facility] medical care. 9. DM type 2: On Januvia and [...] IV, or unspecified | + + | Anemia in ESRD (end-stage renal disease) (HCC) Anemia in chronic kidney disease | + + | Secondary hyperparathyroidism (of renal origin) | + + documented in this encounter"
--- OUTSIDE RECORDS SUMMARY | ~2020-03-04 | XMS | Encounter Summary ---
Demographics + + + | Address | [address] | | | [place] [address] | + + + | Home Phone [...] | Organization | [facility] | | | and [place] [...] | +--------+ + + + + | 06/17/ | Orders Only | [facility] [place] | Uche Orozco | | | 2013 | | NEPHROLOGY [address] | M, DO [address] | | | | | [address] | [place], [address] | | | | | [place] | [place] | | | | | [phone] | [phone] | | | | | [phone] | | | +--------+ + + + [...] encounter Progress Notes Uche Orozco DO - 06/17/2014 3:50 PM PDTNEPHROLOGY Addendum I reviewed Celso' Hba1c , which was elevated at 11.8%. He is on a high basal dose of Akhil tus, + on Januvia. Therefore, will add glimepiride 1mg, daily to his regimen. This was conveyed to him via th e weigh and charge worker, Pam, at the [facility], as he could not be reached by phone. E-Rxd to Chao Rosales. [facility] documented in this encounter Plan of Treatment Not on filedocumented as of this encounter Visit Diagnoses Not on filedocumented in this encounter"
--- OUTSIDE RECORDS SUMMARY | ~2020-03-04 | XMS | Encounter Summary ---
Demographics + + + | Address | [address] | | | [place] [address] | + + + | Home Phone [...] | Organization | [facility] | | [...] Team Providers + +------+ + | Care Blind Installer Name | Role | Phone | [...] | [address] | [place], [address] | | | | | [place] | [place] | | | | | [address] | [address] | | | | | [phone] | | | +--------+ + + + [...] + + + | Blood Pressure | 149/91 | 09/22/2013 6:02 PM | | | | | PST | | + + + + + | Pulse | - | - | | + + + + + | Temperature | 36.4 C (97.5 F) | 09/22/2013 6:02 PM | | | | | PST [...] + documented in this encounter Progress Notes Dedra Camara - 09/26/2013 1:43 PM PSTHEMO progress note e-faxed to Frances Obrien MD, ethan anually faxed to [facility] dialysis clinic in [place], [place] on 09/26/13. Routed by provider to Atrem Angelo MD. Uche Tyler DO - 09/22/2013 6:03 PM PST Subjective: [facility] DIALYSIS NOTE Patient ID: CELSO CARO is a 53 y.o. male. 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 He also has T2DM, requiring insulin, anemia secondary to CKD, hyperlipidemia, Hepatitis C, m orbid obesity and a question of a right renal mass on prior US. His adequacy is low normal but is transitioning to 2 needles in his left arm AVF. Outpatient Prescriptions Marked as Taking for the 09/22/13 encounter (Documentation) with Ethan Orozco DO Medication Sig Dispense Refill aspirin 81 mg EC tablet Take 81 mg by mouth Daily. atorvaSTATin (LIPITOR) 20 mg tablet Take 1 tablet by mouth Daily. 30 tablet 5 B Njrorpf-Y-Ehwnd Acid (OLEG-TEQUILA RX) 1 MG TABS Take [...] Diarrhea Review of Systems Objective: Blood pressure 149/91, temperature 36.4 C (97.5 F). EDW 129 kg Physical Exam Heart: [...] as his adequacy improves. 6. Type 2 DM--Will recheck the Hbaic next quarter. 7. Hepatitis C--asymptomatic to date. 8. Hyperlipidemia--will [...] in 2 weeks. CC: Artem Angelo MD [facility] documented in thi s encounter Plan of Treatment Not on filedocumented as of this encounter Visit Diagnoses + + | Diagnosis | + + | End stage renal disease (HCC) - Primary End stage renal disease | + + | Type II or unspecified type diabetes mellitus with renal manifestations, | | uncontrolled(250.42) ([facility]) Type II or unspecified type diabetes mellitus with renal | | manifestations, uncontrolled | + + | Unspecified hypertensive kidney disease with chronic kidney disease stage I through | | stage IV, or unspecified(403.90) Unspecified hypertensive kidney disease with chronic | | kidney disease stage I through stage IV, or unspecified | + + documented in this encounter
--- OUTSIDE RECORDS SUMMARY | ~2020-03-04 | XMS | Encounter Summary ---
Demographics + + + | Address | [address] | | | [place] [address] | + + + | Home Phone | | + + + | Preferred Language | Unknown | + + + | Marital Status | | + + + | Jehovah'S Witness Affiliation | 1041 | + + + | Race | Unknown | + + + | Ethnic Group | Unknown | + + + Author + + + | Author | [facility] | | | and Scarana | + + + | Organization | [facility] | | [...] Team Providers + +------+ + | Care General Lithographic Worker Name | Role | Phone | [...] | renal | PA-C [address] | [address] | | | | | disease | [address] | [place], [address] | | | | | ([facility]) | [place] | [address] | | | | | Procedures | [address] | [place] | | | | | [place] ESRD | [place], | [address] Phone: | | | | | RELATED SVC | [place] | [phone] | | | | | MONTHLY | [address] | Fax: | | | | | 20&/> YR OLD | Phone: | [phone] | | | | | 4/> VISITS | [phone] | | | | | | dialysis | Fax: | | | | | | | [phone] | | + +--------+ + + + + Encounter Details +--------+ + + + + | Date | Type | Department | Care Team | Description | +--------+ + + + + | 03/31/ | Off-Site | [facility] [place] | Uche Orozco | End stage renal | | 2019 | Visit | NEPHROLOGY [address] | M, DO [address] | disease (HCC) | | | | [address] | [place], [address] | (Primary Dx) | | | | [place], [place] | [place] | | | | | [address] | [address] | | | | | [phone] | | | +--------+ + + + [...] + + + | Blood Pressure | 130/86 | 03/24/2019 11:11 AM | | | | | PDT | | + + + + + | Pulse | - | - | | + + + + + | Temperature | 36.7 C (98 F) | 03/24/2019 11:11 AM | | | | | [...] encounter Progress Notes Uche Orozco DO - 03/31/2019 9:15 AM PDT Subjective: [facility] DIALYSIS NOTE Patient ID: Celso Caro is a 59 y.o. male. 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 He is seen on the MWF shift at [facility], [place], [place].he has been on or al antibiotics for a deep-seated foot infection which he states is improving. He states fallon t his appetite is good and denies fever or chills. PAST MEDICAL HISTORY: 1. Type 2 DM, [...] CKD/MBD--treated with Velphoro, and Hectorol at the [facility] [place], [place], [place]. I Outpatient Medications Marked as Taking for the 03/31/19 encounter (Off-Site Visit) with Naveen Orozco DO Medication Sig Dispense Refill apixaban (ELIQUIS) 5 mg tablet Take 2.5 mg by mouth 2 times daily. B Heprrtm-V-Uwbkm Acid (OLEG-TEQUILA RX) 1 MG TABS Take [...] units/mL injection Inject 1,000 Units into the ve in Three times a week. furosemide (LASIX) 80 mg tablet Take 80 mg by mouth Daily. insulin glargine (LANTUS) 100 units/mL injection (vial) [...] Unknown Fenofibrate Acidosis Metformin Diarrhea Objective: BP 130/86 | Temp 36.7 C (98 F) EDW 119.5 kg Physical Exam Heart: Regular rate and rhythm with no S3, S4, murmur or rub. Lungs: CTA in all valle. No rales or wheezes. Abdomen: Soft, flat, nontender, normoactive bowel sounds. Extremities: 1+ edema, no rash, AVF at left arm is clear and dry. LAB: BUN 75, Cr 7.5, K+ 4.9, HCO3 24, Ca++ 8.8, PO4 9.3, PTH 750, Alb 3.8, Hbaic 6.5 %, Hb 11.5, TSat. = not listed ? , Ferritin ?, spKT/V = 1.64. Assessment: 1. ESRD--he appears well dialyzed clinically on the current Rx. His AVF appears to be fun ctioning well at this time. 2. Hypertension-- the BP appears well controlled from review of the most recent treatment data in [place]. 3. Anemia secondary to CKD-- Will need to hold the Mircera until the Hb is < 11.0 g/dl, w sergei rechecking the Hb weekly. His T. Sat. appears adequate for erythropoiesis. 4. Nutrition-- his appetite is excellent on the current Rx. I encouraged him to maximize his intake of high biological value protein. 5. CKD/MBD-- I reinforced the need to take Renvela exactly AC and HS, to optimize his phos phorus control. His PTH is still above the goal. Will recommend the nursing staff to increase his Hectorol to 8 mcg, IV Q tx. 6. Type 2 DM-- good control. 7. Hepatitis C--historically in remission. 8. Hyperlipidemia--on statin Rx. 9. Transplantation--this will need to be on hold until his foot infection is cleared up. He appears to understand this. Plan: 1. Will need to titrate up the Hectorol per the [facility] PTH algorithm to target the PTH < 3 00 pg/ml. 2. His appetite appear to be improved. 3. BP and adequacy appear stable on his current Rx. 4. Will recheck his HbA1c, Fe profile, and PTH next month. : [facility] Toby Schuster HEIDI documented in thi s encounter Plan of [...]
--- OUTSIDE RECORDS SUMMARY | ~2020-03-04 | XMS | Encounter Summary ---
Demographics + + + | Address | [address] | | | [place] [address] | + + + | Home Phone | | + + + | Preferred Language | Unknown | + + + | Marital Status | | + + + | Adventist Affiliation | 1041 | + + + | Race | Unknown | + + + | Ethnic Group | Unknown | + + + Author + + + | Author | [facility] | | | and Scarana | + + + | Organization | [facility] | | [...] Team Providers + +------+ + | Care Cook Dinner Name | Role | Phone | + [...] | +--------+ + + + + | 01/10/ | Anesthesia | [facility] | Mary Smiley MD | | | 2019 | Event | MED CTR OR INTRA OP | [address] | | | | | [address] | [place] | | | | | [place] | [phone] | | | | | [address] | | | | | | [phone] | | | +--------+ + + + + Anesthesia Record + + + + + | Procedure Name | Responsible | Anesthesia Start | Anesthesia Stop Time | | | Anesthesiologist | Time | | + + + + + | AMPUTATION TOE (Left | Mary Smilye MD | 01/10/19 1507 | 01/10/19 1550 | | Foot) | | | | + + + + + +----+---+ + + | Da | T | Event | Comment | | te | i | | | | | m | | | | | e | | | +----+---+ + + | 04 | 1 | | | | /0 | 4 | | | | 5/ | 4 | | | | 20 | 6 | | | | 19 | | | | +----+---+ + + | | 1 | An Checkout | Pre-use anesthesia machine/equipment checkout. | | | 5 | | | | | 0 | | | | | 7 | | | +----+---+ + + | | 1 | An Start | | | | 5 | Data | | | | 0 | | | | | 7 | | | +----+---+ + + | | 1 | An Start | Reassessment prior to anesthesia induction/procedure. | | | 5 | | | | | 0 | | | | | 7 | | | +----+---+ + + | | 1 | Antibiotic | | | | 5 | Given | | | | 0 | | | | | 7 | | | +----+---+ + + | | 1 | Preoxygenat | | | | 5 | ed | | | | 0 | | | | | 9 | | | +----+---+ + + | | 1 | An | | | | 5 | Induction | | | | 1 | | | | | 1 | | | +----+---+ + + | | 1 | An | | | | 5 | Intubation | | | | 1 | | | | | 2 | | | +----+---+ + + | | 1 | Grafton | | | | 5 | 43-degrees | | | | 2 | | | | | 0 | | | +----+---+ + + | | 1 | Pre-Procedu | | | | 5 | ral Timeout | | | | 2 | Completed | | | | 1 | | | +----+---+ + + | | 1 | First | | | | 5 | Inc/Proc St | | | | 2 | | | | | 2 | | | +----+---+ + + | | 1 | Grafton off | | | | 5 | | | | | 4 | | | | | 2 | | | +----+---+ + + | | 1 | Breathing | | | | 5 | Spontaneous | | | | 4 | ly | | | | 3 | | | +----+---+ + + | | 1 | Extubated | | | | 5 | Deep | | | | 4 | | | | | 5 | | | +----+---+ + + | | 1 | an stop | | | | 5 | data | | | | 4 | | | | | 5 | | | +----+---+ + + | | 1 | An Stop | Patient handed off to recovery nurse. | | | 5 | | | | | 0 | | | +----+---+ + + +------+ | Meds | +------+ + +---------+ | Name | Total | + +---------+ | propofol (DIPRIVAN) injection | 150 mg | | (bolus) (20 mL) | | + +---------+ | ondansetron | 4 mg | + +---------+ | phenylephrine (Injection) | 200 mcg | + +---------+ | lidocaine 1% | 50 mg | + +---------+ | NS (Infusion) | 200 mL | + +---------+ + + | Name | + + | N2O Flow Rate (L/Min) | + + | O2 Flow Rate (L/Min) | + + | Insp O2 | + + | Exp SEV | + + | Air Flow Rate (L/Min) | + + + + | No blood administrations on file. | + + +--------+ + + + | Type | Details | Placement | Removal | +--------+ + + + | Hemodi | 09/06/18; 1300; fistula; upper | 09/06/18 1300 by | | | alysis | arm, left; hemodialysis | Katerine S | | | | | DONA Garcia | | +--------+ + + + | Wound | 09/05/18; 1600; Left; plantar; | 09/05/18 1600 by | 12/30/19 0000 by | | | foot; ulceration, venous; | Santi Rodriguez RN | Lien S | | | Unknown; 12/30/19 | | DONA Gomez | +--------+ + + + | PICC | 09/08/18; 1510; Red Hub; Purple | 09/08/18 1510 by | 09/23/19 0000 by | | Double | Hub; Yes; Chlorhexidine/Isopropyl | Elvira Coon RN | Merari Lima RN | | Lumen | Alcohol; Yes; Yes; All; Patient | | | | | room; Dental Nurse; Aislinn Coon; | | | | | Registered nurse; Yes; New | | | | | indication for central line | | | | | (e.g., hemodynamic monitoring, | | | | | fluid/medication administration, | | | | | etc.); basilic vein (medial side | | | | | of arm), right; pressure | | | | | injectable catheter, lot number | | | | | (specify) (Cognitum [id number]); 5 Fr, | | | | | length (specify) (trimmed to 48 | | | | | cm ); 0; intradermal injection, | | | | | appears comfortable; ultrasound | | | | | visualization with modified | | | | | seldinger technique at bedside; | | | | | placement verified by x-ray; | | | | | removed in past; 09/23/19 | | | +--------+ + + + | Periph | 01/08/19; 1645; Right; Anterior | 01/08/19 1645 by | 09/23/19 0000 by | | eral | (palmar); Antecubital; | Macie Irwin, | Merari Lima RN | | IV | [id number] catheter system; | RN | | | | 20 gauge; Hematology, Chemistry, | | | | | Coagulation, Blood Culture; | | | | | removed in past; 09/23/19 | | | +--------+ + + + | Wound | 01/08/19; 1735; Y; Venous ulcer; | 01/08/19 1735 by | 12/30/19 0000 by | | | Left; plantar; fourth toe; | Macie Irwin, | [place] | | | ulceration, venous; 12/30/19 | RN | DONA Gomez | +--------+ + + + | Airway | Placement Date: 01/10/19; | 01/10/19 151 by | 01/10/19 1545 by | | | Placement Time: 1511 (created via | Mary Smiley MD | Mary Smiley MD | | | procedure documentation); | | | | | Attempts: 1; Airway Type: | | | | | laryngeal mask; Trauma: none; | | | | | Placement Check: exhaled CO2 | | | | | detection device, bilateral chest | | | | | rise; Removal Date: 01/10/19; | | | | | Removal Time: 1545 | | | +--------+ + + + | Wound | 01/10/19; 1536; Incision; Left; | 01/10/19 1536 by | 09/26/19 1011 by | | | foot; 09/26/19; 1011 | Debra Perez RN | Laura Lowe RN | +--------+ + + + documented in this encounter Social History + + + +--------+ + [...] | + +--------+ + + + | ANE AIRWAY NOTE | Routin | 01/10/2019 | | Results for this | | | e | 3:22 PM | | procedure are in the | | | | PDT | | results section. | + +--------+ + + + documented in this encounter Results Anesthesia Airway Note (01/10/2019 3:22 PM PDT) + + + | Narrative | Performed At | + + + | Mary Smiley MD 01/10/2019 15:23 Anesthesia Airway Placement | | | 01/10/2019 15:12 Preprocedure check: patient identified, oxygen, | | | airway assessed, patient reassessment prior to induction, airway | | | equipment checked and suction Attempts: 1 Airway type: laryngeal | | | mask Cuffed: cuffed Trauma: none Tube placement verification: | | | bilateral chest rise and carbon dioxide detection Performing | | | provider: MARY SMILEY Electronically Signed by: Mary Luke | | | MD Baljit ESig date/time: | | | 01/10/2019 15:22 | | + + + + + | Procedure Note | + + | Mary Smiley MD - 01/10/2019 3:22 PM PDT Anesthesia Airway Placement01/10/2019 | | 15:12Preprocedure check: patient identified, oxygen, airway assessed, patient | | reassessment prior to induction, airway equipment checked and suctionAttempts: 1Airway | | type: laryngeal maskCuffed: cuffedTrauma: noneTube placement verification: bilateral | | chest rise and carbon dioxide detectionPerforming provider: MARY SMILEY | | Signed by: MD Jeanne Antoine date/time: 01/10/2019 15:22 | | | |Trauma: none | |Tube placement verification: bilateral chest rise and carbon dioxide detection | |Performing provider: MARY SMILEY | | | | | |Electronically Signed by: MD Jeanne Antoine date/time: 2018 15:22 | | | + + documented in this encounter Visit Diagnoses Not on filedocumented in this encounter Administered Medications + +--------+ +-------+------+------+ | Medication Order | MAR | Action | Dose | Rate | Site | | | Action | Date | | | | + +--------+ +-------+------+------+ | lidocaine (PF) 1% injection | Given | 01/11/20 | 50 mg | | | | Infiltration, PRN, Starting Fri | | 19 3:11 | | | | | 01/10/19 at 1511, Anesthesia | | PM PDT | | | | | Intra-op | | | | | | + +--------+ +-------+------+------+ +---+---+ | | | +---+---+ + +-------+ +------+---+---+ | ondansetron (ZOFRAN) injection | Given | 01/11/20 | 4 mg | | | | Intravenous, PRN, Nausea, | | 19 3:35 | | | | | Vomiting, Starting 01/10/19 at | | PM PDT | | | | | 1535, Anesthesia Intra-op | | | | | | + +-------+ +------+---+---+ +---+---+ | | | +---+---+ + +-------+ +---------+---+---+ | phenylephrine (MORTEZA-SYNEPHRINE) | Given | 01/11/20 | 200 mcg | | | | 100 mcg/mL injection | | 19 3:35 | | | | | Intravenous, PRN, Starting Fri | | PM PDT | | | | | 01/10/19 at 1535, Anesthesia | | | | | | | Intra-op | | | | | | + +-------+ +---------+---+---+ +---+---+ | | | +---+---+ + +-------+ +--------+---+---+ | propofol (DIPRIVAN) injection | Given | 01/11/20 | 150 mg | | | | Intravenous, PRN, Starting Fri | | 19 3:11 | | | | | 01/10/19 at 1511, Anesthesia | | PM PDT | | | | | Intra-op | | | | | | + +-------+ +--------+---+---+ +---+---+ | | | +---+---+ + +---------+ +---+---+---+ | sodium chloride 0.9% (NS) | New Bag | 01/11/20 | | | | | infusion Intravenous, CONTINUOUS | | 19 3:07 | | | | | PRN, Starting 01/10/19 at | | PM PDT | | | | | 1507, Anesthesia Intra-op | | | | | | + +---------+ +---+---+---+ +---+---+ | | | +---+---+ documented in [...]
--- OUTSIDE RECORDS SUMMARY | ~2020-03-04 | XMS | Encounter Summary ---
Demographics + + + | Address | [address] | | | [place] [address] | + + + | Home Phone | | + + + | Preferred Language | Unknown | + + + | Marital Status | | + + + | Faith Affiliation | 1041 | + + + | Race | Unknown | + + + | Ethnic Group | Unknown | + + + Author + + + | Author | [facility] | | | and [place] | + + + | Organization | [facility] | | | and [place] | [...] Team Providers + +------+ + | Care Buffing And Polishing Wheel Repairer Name | Role | Phone | + [...] | Specialty | Gastroenterol | Diagnoses | Shiela, | Kendall, | | | Services | [email or web address] | Type II or | Lexi W, | Lynda, | | | Required | | unspecified | MD [address] | REPORTS ANALYSIS MANAGER [address] | | | | | type | [facility] [place] | [place] [place] | | | | | diabetes | [address] [place] | [address] [place] | | | | | mellitus | [place] | | | | | with renal | [address] | [address] Phone: | | | | | manifestatio | Phone: | [phone] | | | | | ns, | [phone] | Fax: | | | | | uncontrolled | Fax: | [phone] | | | | | [phone] | [phone] | | | | | | (HCC) [...] | Scheduling Instructions | + + | Patient missed appointment because of cellulits. Please let [facility] | | [phone] know the day and time of appointment as well as patient. | + + Encounter Details +--------+ + + + + | Date | Type | Department | Care Team | Description | +--------+ + + + + | 02/08/ | Orders Only | [facility] | Lexi Kuo W, | Type II or | | 2015 | | NEPHROLOGY [address] | [address] [facility] | unspecified type | | | | [address] | [place] [address] [facility] | diabetes mellitus | | | | [place] | [place] [address] | with renal | | | | [address] | [phone] | manifestations, | | | | [phone] | | uncontrolled (HCC) | | | | | | (Primary Dx); | | | | | | Unspecified viral | | | | | | hepatitis C without | | | | | | hepatic coma; Other | | | | | | specified | | | | | | pre-operative | | | | | | examination; Routine | | | | | | general medical | | | | | | examination at a | | | | | | health care facility | +--------+ + + + + Social [...] [place] | Outpatient | Routin | Type II or | Ordered: 02/08/2015 | | Gastroenterology - | Referral | e | unspecified type | | | AMB Referral | | | diabetes mellitus | | | | | | with renal | | | | | | manifestations, | | | | | | uncontrolled (HCC) | | | | | | Unspecified viral | | | | | | hepatitis C without | | | | | | hepatic coma Other | | | | | | specified | | | | | | pre-operative | | | | | | examination Routine | | | | | | general medical | | | | | | examination at a | | | | | | health care facility | | + + +--------+ + + documented as of this encounter Visit Diagnoses + + | Diagnosis | + + | Type II or unspecified type diabetes mellitus with renal manifestations, | | uncontrolled(250.42) ([facility]) - Primary Type II or unspecified type diabetes mellitus with | | renal manifestations, uncontrolled | + + | Unspecified viral hepatitis C without hepatic coma | + + | Other specified pre-operative examination | + + | Routine general medical examination at a health care facility | + + documented in this encounter"
--- OUTSIDE RECORDS SUMMARY | ~2020-03-04 | XMS | Encounter Summary ---
Demographics + + + | Address | [address] | | | [place] [address] | + + + | Home Phone | | + + + | Preferred Language | Unknown | + + + | Marital Status | Single | + + + | Anabaptism Affiliation | Unknown | + + + | Race | or | + + + | Ethnic Group | Not or | + + + Author + + + | Author | [facility] | + + + | Organization | [facility] | + + + | Address [...] Team Providers + +------+ + | Care Commercial Loan Officer Name | Role | Phone | [...] | | | | | [address] [place], | [place], [place] | | | | | [place] [address] | [address] | | | | | [phone] | [phone] | | | | | | | [...]
--- OUTSIDE RECORDS SUMMARY | ~2020-03-04 | XMS | Encounter Summary ---
Demographics + + + | Address | [address] | | | [place] [address] | + + + | Home Phone [...] Organization | [facility] | | | and [place] | [...] Team Providers + +------+ + | Care Lime Kiln Worker Name | Role | Phone | + +------+ + PCP | Unavailable | + +------+ + Encounter Details +--------+ + + + + | Date | Type | Department | Care Team | Description | +--------+ + + + + | 10/07/ | Documentati | [facility] [place] | Uche Orozco | | | 2014 | on | NEPHROLOGY [address] | M, DO [address] | | | | | [address] | [place], [address] | | | | | [place] | [place] | | | | | [address] | [address] | | | | | [phone] | | | +--------+ + + + [...] this encounter Progress Notes Dedra Camara - 10/07/2015 3:34 PM PSTManually faxed progress note from 10/04/15 to [facility] referrals. Requesting yearly referral from [facility] for nephrology for the year, 2015.Elect margi signed by Dedra Camara at 10/07/2015 3:36 PM PSTdocumented in this encounter Plan of Treatment Not on filedocumented as of this encounter Visit Diagnoses Not on filedocumented in this encounter"
--- OUTSIDE RECORDS SUMMARY | ~2020-03-04 | XMS | Encounter Summary ---
Demographics + + + | Address | [address] | | | [place] [address] | + + + | Home Phone [...] Organization | [facility] | | | and [place] [...] Team Providers + +------+ + | Care Electron Beam Machine Welder Setter Name | Role | Phone | + [...] + + | 12/28/ | Hospital | [facility] | Kori Ross MD | Atrial fibrillation | | 2019 - | Encounter | [facility] | [address] | with RVR ([facility]); | | | | [address] [place] | [place] | Fever, unspecified | | 12/31/ | | [place] [address] | [address] | fever cause; End | | 2019 | | [phone] | | stage renal disease | | | | | aHlley Calvo MD | ([facility]); Diabetes | | | | | [address] | mellitus, type II, | | | | | [place] | insulin dependent | | | | | [address] | ([facility]); SIRS | | | | | | (systemic | | | | | | inflammatory | | | | | | response syndrome) | | | | | | ([facility]) | +--------+ + + + + Social [...] Calvo MD - 01/01/2020 11:08 AM PDT [place] HOSPITALIST DISCHARGE SUMMARY Pt. Name/Age/: Celso [...] Patient presented with varying complaints (reported cough INCIDENT RESPONSE SPECIALIST but denied this here, has not had [...] Practitioner Why: Hospital follow up Contact information: [address] [place] [address] Condition: Stable Diet: CC Less than 30 minutes were spent on discharge and coordination of post-hospital care. Electronically signed by: Halley Calvo MD, 01/01/2020 11:08 AM [facility] documented in this enco unter Discharge Instructions [...] + + +---------+ + + | B Dqcazjk-L-Aslyr | Take 1 mg by mouth | [...] te might be different from the original. [place] HOSPITALIST PROGRESS NOTE Patient: Celso Sutton Case : 1960: Age: 59 y.o. MedRec: [id number] Admission date: 12/29/2019 Hospital day # : [...] Patient presented with varying complaints (reported cough INCIDENT RESPONSE SPECIALIST but denied this here, has not had [...] Clostridioides difficle NAAT reflex to Tox Ag [[id number]] Collected: 12/30/1953 Order Status: Completed Lab Status: Final result Updated: 12/30/19326 Specimen: Stool Narrative: The following orders were created for panel order Clostridioides difficle NAAT reflex to T ox Ag. Procedure Abnormality Status --------- ------ Clostridioides difficile...[[id number]] Final result Please view results for these tests on the individual orders. Clostridioides difficile NAAT Reflex [[id number]] Collected: 12/30/1953 Order Status: Completed Lab Status: Final result Updated: 12/30/19326 Specimen: Stool C. difficile, Interp Negative Comment: No Toxigenic C. difficile detected. Consider other causes of Diarrhea. Repeat te sting should not be performed within 7 days. C. difficile, NAAT Negative Fecal leukocytes [[id number]] (Normal) Collected: 12/30/19 0053 Order Status: Completed Lab Status: Final result Updated: 12/30/19 0340 Specimen: Stool Lactoferrin, Qual Negative Culture, MRSA [[id number]] (Normal) Collected: 12/30/19 0034 Order Status: Completed Lab Status: Final result Updated: 12/31/19 0719 Specimen: Tissue from Nares Culture Negative for MRSA by chromogenic agar method. Culture, Blood [[id number]] Collected: 12/30/19 0006 Order Status: Completed Lab Status: Preliminary result Updated: 12/30/19 1221 Specimen: Peripheral Blood Culture No growth: Monitored continually by instrument for 5 days Culture, Blood [[id number]] Collected: 12/30/19 0006 Order Status: Completed Lab Status: Preliminary result Updated: 12/30/19 1221 Specimen: Peripheral Blood Culture No growth: Monitored continually by instrument for 5 days Respiratory pathogen panel, NAAT [[id number]] (Normal) Collected: 12/30/19 0000 Order Status: Completed Lab Status: Final result Updated: 12/30/19 0336 Specimen: Body Fluid from Nasopharynx Parainfluenza 1 Not Detected Adenovirus Not Detected Human Metapneumovirus Not Detected Rhinovirus/Enterovirus Not Detected Parainfluenza 3 Not Detected RSV RNA, NAAT [[id number]] (Normal) Collected: 12/29/19 2359 Order Status: Completed [...] Halley M. Umesh, MD 12/31/2019 12:22 PM [facility] Sonia Alvarez Phar mD - 12/31/2019 [...] name, strength, and directions X Doctor's office: [facility] X Pharmacy list names: Fernando Mitchell ([place]) X [employer] insurance reported information X Outside Information Other sources: Vaccines up to date? Influenza Unsure Pneumococcal Unsure Tdap Yes Shingles Yes Noted medications discrepancies or medication-related issues: Dosage/Form/Frequency change: INCIDENT RESPONSE SPECIALIST Medication: Prior to Admission Sig: Correct Dosage/Form: [...] Prior to Admission Sig: Patient taking differently INCIDENT RESPONSE SPECIALIST as: Epoetin 95146 unit per ml inj Inject 1000 mcg into the vein 3 times weekly Could not confir m if/how patient is taking. Patient was unsure. [facility] does NOT administer this medication Insulin glargine [...] that" on most medication s Best possible INCIDENT RESPONSE SPECIALIST medication list after pharmacy review: PT REPORTED TAKING NOT TAKING Medication Sig Last Dose Dispense Doc. Provider apixaban (ELIQUIS) 5 mg tablet Take 2.5 mg by mouth 2 times daily. Taking Historical Prov MD Arian bustamante Btudebk-Z-Zzsxm Acid (OLEG-TEQUILA RX) 1 MG TABS Take 1 mg by mouth Daily. Taking 30 each C helajacqueline Osei Fackenthall CIRCUIT BOARD ASSEMBLER calcium acetate (CALCIUM ACETATE) 667 mg tablet [...] into the vein Three times a w andreafski. Taking Historical ProviderMD epoetin padilla (EPOGEN, PROCRIT) [...] performed and electronically signed by Nelly Walsh, Pipeline Inspector 12/31/2019 11:20 AM Reviewed by Sonia Lew [...] St | [place] | [phone] | | [facility] | | [address] | | | - LABORATORY | | [...] + | [facility] | [address] | [place] | [phone] | | [facility] | | [address] | | | - LABORATORY | | [...] | mL/min/1.73m2 | [facility] | | | [place] | RATE,ESTIMATED | | MEDICAL | | | | mL/min/1.97o6Axxu than | | CENTER - | | [...] + | [facility] | [address] | [place] | [phone] | | [facility] | | [address] | | | - LABORATORY | | [...] St | [place] | [phone] | | [facility] | | [address] | | | - LABORATORY | | [...] ST. | [address] | [place], [place] | [phone] | | [facility] | | [address] | | | - LABORATORY | | [...] + | [address] [facility] | [address] | [place] | [phone] | | [facility] | | [address] | | | - LABORATORY | | [...] | | | | | ELEANOR YOUNG ([id number]) on | | | | | | [...] St | [place] | [phone] | | [facility] | | [address] | | | - LABORATORY | | [...] + | Performed at: 01 - [facility] [place] [address], | REFERENCE LAB | | [place], [place] [id number] Aging Room Operator: Darin Odom MD, Phone: | [place] | | [phone] | | + + + + + + + + | Performing | Address | City/State/Zipcode | Phone Number | | Organization | | | | + + + + + | REFERENCE LAB | [address] | [place], [place] | [phone] | | [place] | [facility] | [address] | | + + + + + [...] St | [place] | [phone] | | [facility] | | [address] | | | - LABORATORY | | [...] St | [place] | [phone] | | [facility] | | [address] | | | - LABORATORY | | [...] 7.08 (H) | 0.70 - 1.30 | [facility] | | | | | mg/dL [...] mL/min/1.73m2 | [facility] | | | [place] | RATE,ESTIMATED | | MEDICAL | | | | mL/min/1.03v4Lkyu than | | CENTER - | | [...] St | [place] | [phone] | | [facility] | | [address] | | | - LABORATORY | | [...] + | [facility] | [address] | [place] | [phone] | | [facility] | | [address] | | | - LABORATORY | | [...] ST. | [address] | [place], [place] | [phone] | | [facility] | | [address] | | | - LABORATORY | | [...] St | [place] | [phone] | | [facility] | | [address] | | | - LABORATORY | | [...] + | [facility] [facility] | [address] | [place] | [phone] | | [facility] | | [address] | | | - LABORATORY | | [...] + | [facility] | [address] | [place] | [phone] | | [facility] | | [address] | | | - LABORATORY | | [...] St | [place] | [phone] | | [facility] | | [address] | | | - LABORATORY | | [...] + | [facility] | [address] | [place] | [phone] | | [facility] | | [address] | | | - LABORATORY | | [...] mL/min/1.73m2 | [facility] | | | [place] | RATE,ESTIMATED | | MEDICAL | | | | mL/min/1.94o7Wlkp than | | CENTER - | | [...] St | [place] | [phone] | | [facility] | | [address] | | | - LABORATORY | | [...] | | | | | | [facility] | | | | | | MEDICAL | | | | | | CENTER - | | | | | | LABORATORY | | + + + + + + | RBC | 3.79 (L) | 4.30 - 5.70 | [facility] | | | | | M/uL | [facility] | | | | | [...] ST. | [address] | [place], [place] | [phone] | | [facility] | | [address] | | | - LABORATORY | | [...] St | [place] | [phone] | | [facility] | | [address] | | | - LABORATORY | | [...] St | [place] | [phone] | | [facility] | | [address] | | | - LABORATORY | | [...] + | [facility] | [address] | [place] | [phone] | | [facility] | | [address] | | | - LABORATORY | | [...] [address] | [place] | [phone] | | [facility] | | [address] | | | - LABORATORY | | [...] St | [place] | [phone] | | [facility] | | [address] | | | - LABORATORY | | [...] St | [place] | [phone] | | [facility] | | [address] | | | - LABORATORY | | [...] St | [place] | [phone] | | [facility] | | [address] | | | - LABORATORY | | [...] + | [facility] | [address] | [place] | [phone] | | [facility] | | [address] | | | - LABORATORY | | [...] St | [place] | [phone] | | [facility] | | [address] | | | - LABORATORY | | [...] 1,732 (H)Comment: New | <100 pg/mL | [place] | | | | method in use [...] + | [facility] | [address] | [place] | [phone] | | [facility] | | [address] | | | - LABORATORY | | [...] ST. | [address] | [place] | [phone] | | [facility] | | [address] | | | - LABORATORY | | [...] St | [place] | [phone] | | [facility] | | [address] | | | - LABORATORY | | [...] mL/min/1.73m2 | [facility] | | | [place] | RATE,ESTIMATED | | MEDICAL | | | | mL/min/1.97h4Ujeg than | | CENTER - | | [...] St | [place] | [phone] | | [facility] | | [address] | | | - LABORATORY | | [...] [address] | [place] | [phone] | | [facility] | | [address] | | | - LABORATORY | | | | + + + + + documented in this encounter Visit Diagnoses + + | Diagnosis | + + | Atrial fibrillation with RVR (HCC) Atrial fibrillation | + + | Fever, unspecified fever cause | + + | End stage renal disease ([facility]) End stage renal disease | + + | Diabetes mellitus, type II, insulin dependent ([facility]) Type II or unspecified type | | diabetes mellitus without mention of complication, not stated as uncontrolled | + + | SIRS (systemic inflammatory response syndrome) ([facility]) Systemic inflammatory response | | syndrome, unspecified | + + | Diabetic foot ulcer ([facility]) Type II or unspecified type diabetes [...] | | | | First dose on [facility] 01/01/20 at | | AM PDT | [...] after | | | 3 doses., Starting [facility] 12/30/19 at | | | 0312 | [...]
--- OUTSIDE RECORDS SUMMARY | ~2020-03-04 | XMS | Encounter Summary ---
Demographics + + + | Address | [address] | | | [place] [address] | + + + | Home Phone | | + + + | Preferred Language | Unknown | + + + | Marital Status | | + + + | Christian Affiliation | 1041 | + + + | Race | Unknown | + + + | Ethnic Group | Unknown | + + + Author + + + | Author | [facility] | | | and [place] | + + + | Organization | [facility] | | | and [place] [...] Team Providers + +------+ + | Care Hard Candy Spinner Name | Role | Phone | + +------+ + | Marco A Carrasco | PCP | | + +------+ + Encounter Details +--------+--------+ + + + | Date | Type | Department | Care Team | Description | +--------+--------+ + + + | 12/28/ | Intake | [facility] | | N/A | | 2019 | | [facility] [address] | | | | | | [place] | | | | | | [place] | | | | | | [address] | | | | | | [phone] | | | +--------+--------+ + + + [...]
--- OUTSIDE RECORDS SUMMARY | ~2020-03-04 | XMS | Encounter Summary ---
Demographics + + + | Address | [address] | | | [place] [address] | + + + | Home Phone | | + + + | Preferred Language | Unknown | + + + | Marital Status | | + + + | Roman Catholic Affiliation | 1041 | + + + | Race | Unknown | + + + | Ethnic Group | Unknown | + + + Author + + + | Author | [facility] | | | and [place] | + + + | Organization | [facility] | | [...] Team Providers + +------+ + | Care Cashier Credit Name | Role | Phone | + [...] | [address] | [place] | | | | | [place], [place] | [place], [place] | | | | | [address] | [address] | | | | | [phone] | | | +--------+ + + + [...]
--- OUTSIDE RECORDS SUMMARY | ~2020-03-04 | XMS | Encounter Summary ---
Demographics + + + | Address | [address] | | | [place] [address] | + + + | Home Phone [...] + | Organization | [facility] | | | and [...] Team Providers + +------+ + | Care Paymaster Of Purses Name | Role | Phone | + [...] | | | | | ([facility]) | [place] | [address] | | | | | Procedures | [address] | [place] | | | | | [place] OFFICE | Phone: | [address] Phone: | | | | | OUTPATIENT | [phone] | [phone] | | | | | VISIT 25 | Fax: | Fax: | | | | | MINUTES | [phone] | [phone] | +--------+--------+ + + + + Encounter Details +--------+ + + + + | Date | Type | Department | Care Team | Description | +--------+ + + + + | 11/30/ | Off-Site | [facility] [place] | Uche Orozco | End stage renal | | 2015 | Visit | NEPHROLOGY [address] | M, DO [address] | disease (HCC) | | | | [address] | [place], [address] | (Primary Dx); Anemia | | | | [place] | [place] | in ESRD (end-stage | | | | [address] | [address] | renal disease) | | | | [phone] | | ([facility]); Renovascular | | | | | | hypertension | +--------+ + + + + Social [...] + | Blood Pressure | 155/81 | 11/30/2014 9:32 AM | | | | | PST | | + + + + + | Pulse | - | - | | + + + + + | Temperature | 36.8 C (98.2 F) | 11/30/2014 9:32 AM | | | | | PST [...] + + documented in this encounter Progress Uche Weaver DO - 12/08/2014 9:25 AM PST Subjective: [facility] Patient ID: Celso Caro is a 54 y.o. male. HPI Comments: Monthly dialysis visit for this 54 YO male with ESRD secondar y to diabetic nephropathy, who is seen on outpatient HD, at the [facility], [place] . He also has T2DM, requiring insulin, anemia secondary to CKD, hyperlipidemia, Hepatitis C, morbid obesity and a question of a right renal mass on prior US. Unfortunately, he has mis sed a couple of treatments in the last month for unclear reasons. 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 In addition, his serum phosphorus is trending upward. Outpatient Prescriptions Marked as Taking for the 11/30/14 encounter (Off-Site Visit) with Jean Orozco DO Medication Sig Dispense Refill aspirin 81 mg EC tablet Take 81 mg by mouth Daily. atorvaSTATin (LIPITOR) 20 mg tablet Take 1 tablet by mouth Daily. 30 tablet 5 B Kskmfsd-S-Ipcll Acid (OLEG-TEQUILA RX) 1 MG TABS Take [...] tablet Take 25 mg by mouth Daily. No Facility-Administered Medications for the 11/30/14 encounter (Off-Site Visit) with Jennifer Orozco DO. Allergies Allergen Reactions Amlodipine Besylate Unknown Metformin Diarrhea Objective: Blood pressure 155/81, temperature 36.8 C (98.2 F). EDW 123 kg Physical Exam Heart: Regular rate and rhythm with no S3, S4, murmur or rub. Lungs: CTA bilaterally. No rales or wheezes. Abdomen: Soft, flat, nontender, normoactive bowel sounds. Extremities: No clubbing, cyanosis, or edema. (+) Approximately 1.5 cm foot ulcer ventral surface right foot. LAB: BUN 65, Cr: 0.6, K+ 5.5, HCO3 19, albumin 4.0, Ca++ 8.5, phosphorus 7.9, PTH 348, Hb A1c 8.8%, Hb 10.9, T sat = 31%, ferritin 780, spKT/V = 1.40. Assessment: 1. ESRD-- his adequacy appears stable by the KT/V, however, he does tend to have some mode rate intradialytic weight gains. I counseled him about this. 2. Hypertension--good control with current dry weight. 3. Anemia-- his iron stores appear adequate for erythropoiesis. His Hb appears stable at the current dose of EPO. 4. SHPTH--his PTH is trending upward, likely secondary to worsening hyperphosphatemia. I reviewed with him features of a 1000 mg phosphorus diet. I emphasized the need to take his Renvela specifically, AC&HS, daily. 5. Nutrition--his appetite is excellent on current Rx. 6. Type 2 DM--suboptimal control. I'm not sure that he is checking his glucose scans on a regular basis? I discussed with Celso that optimal glycemic control will help prevent end organ damage, i.e. worsening neuropathy, or retinopathy. 7. Hepatitis C--stable. 8. Hyperlipidemia--Will recheck the lipid profile next quarter. 9. Transplantation-- I have discussed this, however, he is noncommittal about further plan jadon. 10. Right renal mass, MRI, 10/2012--suspicious for complex, "proteinaceous cysts, " on MRI at that time. Plan: 1. I discussed with Celso that I'm very concerned about his ADA diet, calorie intake, 1000 cc fluid restriction, and phosphorus restriction. 2. He currently is on a moderate dose of Renvela, and I e emphasized it's very important f or him to take it specifically AC&HS. 3. Otherwise, his blood pressure, and adequacy appear stable. CC: [facility] documented in thi s encounter Plan of Treatment Not on filedocumented as of this encounter Visit Diagnoses + + | Diagnosis | + + | End stage renal disease (HCC) - Primary End stage renal disease | + + | Anemia in ESRD (end-stage renal disease) (HCC) Anemia in chronic kidney disease | + + | Renovascular hypertension Secondary renovascular hypertension, unspecified | + + documented in this encounter
--- OUTSIDE RECORDS SUMMARY | ~2020-03-04 | XMS | Encounter Summary ---
Demographics + + + | Address | [address] | | | [place] [address] | + + + | Home Phone | | + + + | Preferred Language | Unknown | + + + | Marital Status | | + + + | Baptism Affiliation | [id number] | + + + | Race | Unknown | + + + | Ethnic Group | Unknown | + + + Author + + + | Author | [facility] | | | and [place] | + + + | Organization | [facility] | | | and [...] Team Providers + +------+ + | Care Collar Starcher Name | Role | Phone | + [...] | [address] | [place], [address] | | | | | [place] | [place] | | | | | [address] | [address] | | | | | [phone] | | | +--------+ + + + [...] Frances Obrien MD, ethan anually faxed to [facility] dialysis clinic in [place], [place] on 09/26/13. Routed by provider to Artem Angelo MD. Uche Tyler DO - 09/22/2013 6:03 PM PST Subjective: [facility] Patient ID: CELSO CARO is a 53 y.o. male. HPI Comments: Monthly dialysis visit for this 53 YO male with ESRD secondar y to diabetic nephropathy, who is seen on outpatient HD at the [facility], [place]. He also has T2DM, requiring insulin, anemia [...] by mouth Daily. 30 tablet 5 B Buccpvp-E-Xjsgs Acid (OLEG-TEQUILA RX) 1 MG TABS Take [...] in 2 weeks. CC: Artem Angelo MD [facility] documented in thi s encounter Plan of Treatment Not on filedocumented as of this encounter Visit Diagnoses + + | Diagnosis | + + | End stage renal disease (HCC) - Primary End stage renal disease | + + | Type II or unspecified type diabetes mellitus with renal manifestations, | | uncontrolled(250.42) ([facility]) Type II or unspecified type diabetes [...]
--- OUTSIDE RECORDS SUMMARY | ~2020-03-04 | XMS | Encounter Summary ---
Demographics + + + | Address | [address] | | | [place] [address] | + + + | Home Phone [...] | Organization | [facility] | [...] Team Providers + +------+ + | Care Business Intelligence Manager Name | Role | Phone | [...] | mass | Chelane R, | [address] | | | | | Procedures | PLANT MAINTENANCE MANAGER [address] [place] | | | | | MRI Abdomen | [address], | [place] | | | | | wo Contrast | [address] | [address] | | | | | 10/18>PEND | [place], | Phone: | | | | | YH>MRI ABDOM | [place] [address] | [phone] | | | | | | Phone: | Fax: | | | | | | [phone] | | | | | | | Fax: | | | | | | | [phone] | | +--------+--------+ + + + + Encounter Details +--------+ + + + + | Date | Type | Department | Care Team | Description | +--------+ + + + + | 10/28/ | Hospital | [facility] | [place], | Right renal mass | | 2012 - | Encounter | MED CTR XRAY [address] | Sarai Osei, PLANT MAINTENANCE MANAGER [address] | | | | | [address] [place] | [address] [facility] | | | 10/30/ | | [place] [address] | [address] [place] | | | 2012 | | [phone] | [address] | | | | | | | [...] Performed At | + + + | [facility] | [facility] | | Department [address] [place] [address] | [facility] | | [ rep [address]] [ rep [facility] | | st zip] Signed | - IMAGING | | | | | Patient Name: SERGEY,CELSO Pena Physician: | | | FACK. : 1960 Age: 52 Sex: M Unit #: [id number] | | | Exam Date: 10/28/12 [place] [facility] [place] | | Report #: [id number] Page: | | | %(RAD)RES..mtdd.print.filter("pg") of %(RAD) | | | RES..mtdd.print.filter("tpg") | | | | | | Accession Number: [id number] | | | MRI ABDOMEN WITHOUT IV CONTRAST CLINICAL HISTORY: A | | | 52-YEAR-OLD MALE WITH ADVANCED KIDNEY DISEASE, UNDERGOING EVALUATION | | | FOR RIGHT RENAL MASS SEEN ON ULTRASOUND. COMPARISON: | | | Renal ultrasound 10/15/2012 and 03/29/2010. TECHNIQUE: | | | Axial T10 in- and jse-bd-xaigz, T1 VIBE, T1 fat-sat VIBE, T2 HASTE; [...] Transcribed Date/Time: 10/28/2012 20:47 | | | Infant And Toddler Teacher: <<Signature on File>> | | | | | | Kehinde Willis MD10/29/121939 <Electronically signed by Kehinde | | | Kristi Willis MD> Kehinde Willis MD 10/28/121809 | | | Infant And Toddler Teacher: Tej [id number] | | | [place] | | + + + + + + + + | Performing | Address | City/State/Zipcode | Phone Number | | Organization | | | | + + + + + | [address] | [address] | [place] | [phone] | | [facility] | | [address] | | | - IMAGING | | | | + + + + + documented in this encounter Visit Diagnoses + + | Diagnosis | + + | Right renal mass Unspecified disorder of kidney and ureter | + + documented in this encounter
--- OUTSIDE RECORDS SUMMARY | ~2020-03-04 | XMS | Encounter Summary ---
Demographics + + + | Address | [address] | | | [place] [address] | + + + | Home Phone | | + + + | Preferred Language | Unknown | + + + | Marital Status | | + + + | Amish Affiliation | 1041 | + + + | Race | Unknown | + + + | Ethnic Group | Unknown | + + + Author + + + | Author | [facility] | | | and Scarana | + + + | Organization | [facility] | | [...] Team Providers + +------+ + | Care Metallurgy Teacher Name | Role | Phone | + +------+ + PCP | Unavailable | + +------+ + Encounter Details +--------+ + + + + | Date | Type | Department | Care Team | Description | +--------+ + + + + | 07/01/ | Hospital | [facility] | Uche Orozco | | | 2012 - | Encounter | MED CTR MED ONC | M, DO [address] | | | | | [address] | [place] | | | 07/03/ | | [place] [address] | [place] | | | 2012 | | [phone] | [address] | | | | | | | [...] + + documented as of this encounter Discharge Summaries Uche Orozco DO - 07/03/2013 7:07 [place] [address] Patient Name: CELSO CARO Provider: Uche Orozco DO Unit #: [id number] Location : [facility] : 1960 ADMISSION DATE: 07/01/2013 DISCHARGE DATE: 07/03/2013 DISCHARGE DIAGNOSES 1. INFECTED CAPD CATHETER SECONDARY TO PSEUDOMONAS, KLEBSIELLA, NOT RESPONDING TO OUTPATIEN T THERAPY. 2. UREMIA SECONDARY TO ESRD FROM DIABETIC NEPHROPATHY, NOW ON HEMODIALYSIS. 3. 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 4. HISTORY OF HYPERTENSION. 5. SHPTH. 6. HYPERLIPIDEMIA. 7. ANEMIA SECONDARY TO CKD. 8. STATUS POST REMOVAL OF INFECTED CAPD CATHETER WITH PLACEMENT OF RIGHT IJ EQUISTREAM CATH ETER, 2012. CONSULTATIONS: Vascular Surgery, Dr. Artem Angelo. HPI: This is a pleasant 53-year-old male who has been followed with Stage V CKD secondary to diabetic nephropathy. Around 06/02/2013, he had a CAPD catheter placed du e to falling GFR. He failed to followup for dressing changes and flushing it. Eventually it became infected. He saw TERRY Barnes, last week, who observed drainage and ce llulitis around the catheter. Cultures were growing pseudomonas and Klebsiella. He did agre e at that point to have oral antibiotics, but for several days refused to come in to have t he catheter removed and/or given IV antibiotics. Ultimately, after counseling with him, he agreed to come to the hospital to have the catheter removed. The CAPD catheter has never be en utilized yet to date, which is a bad prognostic sign and now is an infected foreign body . After admission, he was placed on IV aztreonam / ceftazidime. He had fatigue, weakness, and worsening azotemia, and his Scr was up to 7.43 mg/dL from a previous of 5.86. This was com patible with uremia. He was made n.p.o. He was seen by Dr. Angelo, who took him to the OR the following day, christin emily the CAPD catheter, and placed an IJ Equistream catheter. He tolerated that well. He und erwent a 2-hour dialysis that day, and earlier today he underwent a 3-hour dialysis. He is feeling better. His nausea and fatigue are improving. He is asking to be discharged to finish his course of IV antibiotics and outpatient dialysi s. He has been instructed not to shower for the next 6 weeks. He is going to be followed up by TERRY Barnes, or myself in the next 10 days at the [facility], [place], [place]. DISCHARGE MEDICATIONS 1. Tylenol one q.6h. p.r.n. pain. 2. Nephro-Tressa one daily. 3. Renvela 800 mg a.c. and at bedtime. 4. Januvia 25 mg daily. 5. Omeprazole 20 mg daily. 6. Metoprolol succinate 100 mg daily. 7. Lisinopril 40 mg daily. 8. Lantus 120 units SQ daily. 9. NovoLog a.c. and at bedtime by sliding scale. 10. Lasix 40 mg daily. 11. Diltiazem CD 180 mg daily. 12. Vitamin D3 2000 units daily. 13. Lipitor 10 mg daily. 14. EC ASA 81 mg daily. His EPO and Hectorol will be given at the [facility]. He will be on a Kaofhz-Erzfwwjgq-P riday outpatient schedule there. I greatly appreciate Dr. Artem Angelo's help with his dialysis access. His erythema of the skin and his drainage have improved. The wound is open and healing. He is up walking around now. He has been afebrile the last 48 hours. He will be receiving IV c eftazidime plus lower dose gentamicin with his outpatient dialysis at the [facility]. All together, a total of 55 minutes was spent completing this discharge. DICTATED BY: Uche Orozco DO Nephrology JOB #: [id number] EXT JOB #:[id number] cc: TERRY Stiles MD [facility], [place], [place] <<Signature on File>> Uche Orozco, 07/10/13 1201 < documented in t his encounter Medications at Time of Discharge + + + +---------+ + + | Medication | Sig | Dispensed | Refills | Start | End Date | | | | | | Date | | + + + +---------+ + + | B Mrzphpt-T-Vlxga | Take 1 mg by mouth | [...] 1 tablet by | | 0 | 04/18/20 | | | (VITAMIN D-3) 2000 | [...] + | POC GLUCOSE | Routin | 07/03/2013 | | Results for this | | | e | 4:52 PM | | procedure are in the | | | | PDT | | results section. | + +--------+ + + + | POC GLUCOSE | Routin | 07/03/2013 | | Results for this | | | e | 11:59 AM | | procedure are in the | | | | PDT | | results section. | + +--------+ + + + | POC GLUCOSE | Routin | 07/03/2013 | | Results for this | | | e | 7:24 AM | | procedure are in the | | | | PDT | | results section. | + +--------+ + + + | POC GLUCOSE | Routin | 07/02/2013 | | Results for this | | | e | 9:03 PM | | procedure are in the | | | | PDT | | results section. | + +--------+ + + + | POC GLUCOSE | Routin | 07/02/2013 | | Results for this | | | e | 5:26 PM | | procedure are in the | | | | PDT | | results section. | + +--------+ + + + | XR CHEST AP PORTABLE | Routin | 07/02/2013 | | Results for this | | | e | 4:46 PM | | procedure are in the | | | | PDT | | results section. | + +--------+ + + + | POC GLUCOSE | Routin | 07/02/2013 | | Results for this | | | e | 11:20 AM | | procedure are in the | | | | PDT | | results section. | + +--------+ + + + | POC GLUCOSE | Routin | 07/02/2013 | | Results for this | | | e | 7:38 AM | | procedure are in the | | | | PDT | | results section. | + +--------+ + + + | RENAL FUNCTION PANEL | Routin | 07/02/2013 | | Results for this | | | e | 6:24 AM | | procedure are in the | | | | PDT | | results section. | + +--------+ + + + | POC GLUCOSE | Routin | 07/02/2013 | | Results for this | | | e | 5:17 AM | | procedure are in the | | | | PDT | | results section. | + +--------+ + + + | POC GLUCOSE | Routin | 07/02/2013 | | Results for this | | | e | 2:57 AM | | procedure are in the | | | | PDT | | results section. | + +--------+ + + + | POC GLUCOSE | Routin | 07/02/2013 | | Results for this | | | e | 1:20 AM | | procedure are in the | | | | PDT | | results section. | + +--------+ + + + | POC GLUCOSE | Routin | 07/01/2013 | | Results for this | | | e | 10:06 PM | | procedure are in the | | | | PDT | | results section. | + +--------+ + + + | CBC WITH | Routin | 07/01/2013 | | Results for this | | DIFFERENTIAL | e | 4:52 PM | | procedure are in the | | | | PDT | | results section. | + +--------+ + + + | RENAL FUNCTION PANEL | Routin | 07/01/2013 | | Results for this | | | e | 4:52 PM | | procedure are in the | | | | PDT | | results section. | + +--------+ + + + | POC GLUCOSE | Routin | 07/01/2013 | | Results for this | | | e | 4:41 PM | | procedure are in the | | | | PDT | | results section. | + +--------+ + + + documented in this encounter Results POC Glucose (07/03/2013 4:52 PM PDT) + +---------+ + + + | Component | Value | Ref Range | Performed | Pathologist | | | | | At | Signature | + +---------+ + + + | Glucose, | 207 (H) | 79 - 150 md/dL | [facility] [...] [address] | [place] | [phone] | | [facility] | | [address] | | | - LABORATORY | | | | + + + + + | [facility] | [address] | [place] | | | [facility] | | [address], [facility] | | | - LABORATORY | | | | + + + + + POC Glucose (07/03/2013 11:59 AM PDT) + +---------+ + + + | Component | Value | Ref Range | Performed | Pathologist | | | | | At | Signature | + +---------+ + + + | Glucose, | 241 (H) | 79 - 150 md/dL | [...] + | [facility] | [address] | [place], [place] | [phone] | | [facility] | | [address] | | | - LABORATORY | | | | + + + + + | [facility] | [address] | [place], [place] | | | [facility] | | [address] [place] [address] | | | - LABORATORY | | | | + + + + + POC Glucose (07/03/2013 7:24 AM PDT) + +---------+ + + + | Component | Value | Ref Range | Performed | Pathologist | | | | | At | Signature | + +---------+ + + + | Glucose, | 208 (H) | 79 - 150 md/dL | [...] + | [facility] | [address] | [place] | [phone] | | [facility] | | [address] | | | - LABORATORY | | | | + + + + + | [facility] | [address] | [place] | | | [facility] | | [address], [facility] | | | - LABORATORY | | | | + + + + + POC Glucose (07/02/2013 9:03 PM PDT) + +---------+ + + + | Component | Value | Ref Range | Performed | Pathologist | | | | | At | Signature | + +---------+ + + + | Glucose, | 176 (H) | 79 - 150 md/dL | [facility] | | | POC | | | [facility] | | | | | [...] + | [facility] | [address] | [place], [place] | [phone] | | [facility] | | [address] | | | - LABORATORY | | | | + + + + + | [facility] | [address] | [place] | | | [facility] | | [address], [facility] | | | - LABORATORY | | | | + + + + + POC Glucose (07/02/2013 5:26 PM PDT) + +--------+ + + + | Component | Value | Ref Range | Performed | Pathologist | | | | | At | Signature | + +--------+ + + + | Glucose, | 77 (L) | 79 - 150 md/dL | [facility] [...] + | [facility] | [address] | [place], [place] | [phone] | | [facility] | | [address] | | | - LABORATORY | | | | + + + + + | [facility] | [address] | [place], [place] | | | [facility] | | [id number] [place] [address] | | | - LABORATORY | | | | + + + + + XR Chest AP Portable (07/02/2013 4:46 PM PDT) + + | Specimen | + + | | + + + + + | Narrative | Performed At | + + + | [facility] | [facility] | | Department [address] [place] | [facility] | | [ rep ct street1[address]] [ rep ct [facility] | | st zip] Signed | - IMAGING | | | | | Patient Name: CASE,CELSO HERNANDEZ Physician: | | | JANET : 1960 Age: 53 Sex: M Unit #: [id number] | | | Exam Date: 07/02/13 Location: [address] [place] [address] | | | Report #: [id number] Page: | | | %(RAD)RES..mtdd.print.filter("pg") of %(RAD) | | | RES..mtdd.print.filter("tpg") | | | | | | Accession Number: [id number] | | | CHEST PORTABLE CLINICAL HISTORY: STATUS POST PERMANENT | | | CATHETER PLACEMENT. COMPARISON: None. | | | FINDINGS: AP view of the chest was obtained. There is a right | | | central line with IJ approach and tip in the mid superior vena cava | | | (SVC). There is no evidence for right pneumothorax. Some moderate | | | scarring is observed in the medial aspect of the left upper and | | | lower lobes. The right lung is relatively clear. Heart is | | | enlarged. Mediastinum is normal. There is moderate spondylosis. | | | IMPRESSION: 1. RIGHT CENTRAL LINE IN PLACE WITH | | | TIP IN THE MID SUPERIOR VENA CAVA (SVC), NO EVIDENCE FOR | | | COMPLICATIONS. 2. THIS INFORMATION WAS CONVEYED TO SAME | | | DAY SURGERY. Dictated Date/Time: 07/02/2013 16:46 | | | Transcribed Date/Time: 07/02/2013 17:31 Computer Networking Instructor Adjunct: | | | MR.CS <<Signature on File>> | | | Donovan | | | MD Irwin07/02/13 8249 <Electronically signed by Donovan Gayle MD> | | | Donovan Gayle MD 07/02/13 8036 Computer Networking Instructor Adjunct: [employer] | | | Vxpsooyzezskn45/25/13 4331 Artem Agnelo MD | | + + + + + + + + | Performing | Address | City/State/Zipcode | Phone Number | | Organization | | | | + + + + + | [facility] | [address] | [place] | [phone] | | [facility] | | [address] | | | - IMAGING | | | | + + + + + POC Glucose (07/02/2013 11:20 AM PDT) + +--------+ + + + | Component | Value | Ref Range | Performed | Pathologist | | | | | At | Signature | + +--------+ + + + | Glucose, | 78 (L) | 79 - 150 md/dL | [facility] | | | POC | | | [facility] | | | | | | MEDICAL [...] + | [facility] | [address] | [place], [place] | [phone] | | [facility] | | [address] | | | - LABORATORY | | | | + + + + + | [facility] | [address] | [place], [place] | | | [facility] | | [address], [facility] | | | - LABORATORY | | | | + + + + + POC Glucose (07/02/2013 7:38 AM PDT) + +--------+ + + + | Component | Value | Ref Range | Performed | Pathologist | | | | | At | Signature | + +--------+ + + + | Glucose, | 78 (L) | 79 - 150 md/dL | [facility] [...] + | [facility] | [address] | [place] | [phone] | | [facility] | | [address] | | | - LABORATORY | | | | + + + + + | [facility] | [address] | [place], [place] | | | [facility] | | [address] | | | - LABORATORY | | | | + + + + + Renal Function Panel (07/02/2013 6:24 AM PDT) + + + + + + | Component | Value | Ref Range | Performed | Pathologist | | | | | At | Signature | + + + + + + | Glucose | 87 | 70 - 109 mg/dL | [facility] | | | | | | [facility] [...] + | Phosphorus | 6.7 (H) | 2.5 - 4.6 mg/dL | [facility] | | | | | | [facility] | | | | | | MEDICAL | | | | | | CENTER - | | | | | | LABORATORY | | + + + + + + | Albumin | 2.5 (L) | 3.2 - 5.0 gm/dL | [facility] | | | | | | [facility] | | | | | | MEDICAL | | | | | | CENTER - | | | | | | LABORATORY | | + + + + + + | BUN | 55 (H) | 7 - 18 mg/dL | [facility] | | | | | | [facility] | | | | | | MEDICAL | | | | | | CENTER - | | | | | | LABORATORY | | + + + + + + | Creatinine | 6.92 (H) | 0.60 - 1.30 | [facility] | | | | | mg/dL | [facility] | | | | | | MEDICAL | | | | | | CENTER - | | | | | | LABORATORY | | + + + + + + | Estimated | 8 (L)Comment: For | >60 mL/min/A | [facility] | | | GFR | -Americans, | | [facility] | | | | please multiply [...] + + + + | BUN/Creatin | 7.9 (L) | 12 - 20 | [facility] | | | ine Ratio | | | [facility] | | | | | | MEDICAL | | | | | | CENTER - | | | | | | LABORATORY | | + + + + + + | Na | 141 | 136 - 149 mEq/L | [facility] [...] + + + + | Cl | 113 (H) | 98 - 109 mEq/l | [facility] | | | | | | [facility] | | | | | | MEDICAL | | | | | | CENTER - | | | | | | LABORATORY | | + + + + + + | CO2 | 20 (L) | 24 - 31 mEq/L | [facility] | | | | | | [facility] | | | | | | MEDICAL | | | | | | CENTER - | | | | | | LABORATORY | | + + + + + + | Anion Gap | 13.1 | 6.0 - 17.0 | [facility] | [...] + | [facility] | [address] | [place], [place] | [phone] | | [facility] | | [address] | | | - LABORATORY | | | | + + + + + | [facility] | [address] | [place], [place] | | | [facility] | | [address], [facility] | | | - LABORATORY | | | | + + + + + POC Glucose (07/02/2013 5:17 AM PDT) + +-------+ + + + | Component | Value | Ref Range | Performed | Pathologist | | | | | At | Signature | + +-------+ + + + | Glucose, | 84 | 79 - 150 md/dL | [facility] [...] [address] | [place] | [phone] | | [facility] | | [address] | | | - LABORATORY | | | | + + + + + | [facility] | [address] | [place], [place] | | | [facility] | | [address] | | | - LABORATORY | | | | + + + + + POC Glucose (07/02/2013 2:57 AM PDT) + +--------+ + + + | Component | Value | Ref Range | Performed | Pathologist | | | | | At | Signature | + +--------+ + + + | Glucose, | 61 (L) | 79 - 150 md/dL | [facility] [...] + | [facility] | [address] | [place], [place] | [phone] | | [facility] | | [address] | | | - LABORATORY | | | | + + + + + | [facility] | [address] | [place], [place] | | | [facility] | | [id number] [place] [address] | | | - LABORATORY | | | | + + + + + POC Glucose (07/02/2013 1:20 AM PDT) + +--------+ + + + | Component | Value | Ref Range | Performed | Pathologist | | | | | At | Signature | + +--------+ + + + | Glucose, | 56 (L) | 79 - 150 md/dL | [facility] [...] + | [facility] | [address] | [place] | [phone] | | [facility] | | [address] | | | - LABORATORY | | | | + + + + + | [facility] | [address] | [place] | | | [facility] | | [address] | | | - LABORATORY | | | | + + + + + POC Glucose (07/01/2013 10:06 PM PDT) + +---------+ + + + | Component | Value | Ref Range | Performed | Pathologist | | | | | At | Signature | + +---------+ + + + | Glucose, | 173 (H) | 79 - 150 md/dL | [...] + | [facility] | [address] | [place], [place] | [phone] | | [facility] | | [address] | | | - LABORATORY | | | | + + + + + | [facility] | [address] | [place] | | | [facility] | | [address] [place] [address] | | | - LABORATORY | | | | + + + + + CBC with Differential (07/01/2013 4:52 PM PDT) + + + + + + | Component | Value | Ref Range | Performed | Pathologist | | | | | At | Signature | + + + + + + | MANUAL | NO | | [facility] | | | DIFFERENTIA | | | [facility] | | | L ? | | | MEDICAL | | | | | | CENTER - | | | | | | LABORATORY | | + + + + + + | WBC | 9.1 | 4.0 - 11.0 K/uL | [facility] | | | | | | [facility] | | | | | | MEDICAL | | | | | | CENTER - | | | | | | LABORATORY | | + + + + + + | RBC | 3.77 (L) | 4.30 - 5.70 | [facility] | | | | | M/uL | [facility] | | | | | | MEDICAL | | | | | | CENTER - | | | | | | LABORATORY | | + + + + + + | Hemoglobin | 11.9 (L) | 13.5 - 18.0 | [facility] | | | | | gm/dL | [facility] | | | | | | MEDICAL | | | | | | CENTER - | | | | | | LABORATORY | | + + + + + + | Hematocrit | 33.4 (L) | 40.0 - 51.0 % | [facility] | | | | | | [facility] | | | | | | MEDICAL | | | | | | CENTER - | | | | | | LABORATORY | | + + + + + + | MCV | 88.7 | 83.0 - 101.0 fL | [facility] | | | | | | [facility] | | | | | | MEDICAL | | | | | | CENTER - | | | | | | LABORATORY | | + + + + + + | MCH | 31.7 | 28.0 - 35.0 pg | [facility] | | | | | | [facility] | | | | | | MEDICAL | | | | | | CENTER - | | | | | | LABORATORY | | + + + + + + | MCHC | 35.7 | 32.0 - 36.0 | [facility] | | | | | g/dL | [facility] | | | | | | MEDICAL | | | | | | CENTER - | | | | | | LABORATORY | | + + + + + + | RDW-CV | 14.0 | <15.0 % | [facility] | | | | | | [facility] | | | | | | MEDICAL | | | | | | CENTER - | | | | | | LABORATORY | | + + + + + + | Platelet | 207 | 140 - 440 K/uL | [facility] | | | Count | | | [facility] | | | | | | MEDICAL | | | | | | CENTER - | | | | | | LABORATORY | | + + + + + + | % | 61.1 | 45 - 75 % | [facility] | | | Neutrophils | | | [facility] | | | | | | MEDICAL | | | | | | CENTER - | | | | | | LABORATORY | | + + + + + + | % | 26.9 | 20 - 45 % | [facility] | | | Lymphocytes | | | [facility] | | | | | | MEDICAL | | | | | | CENTER - | | | | | | LABORATORY | | + + + + + + | % Monocytes | 7.9 | 4 - 12 % | [facility] | | | | | | [facility] | | | | | | MEDICAL | | | | | | CENTER - | | | | | | LABORATORY | | + + + + + + | % | 3.9 | 0 - 5 % | [facility] | | | Eosinophils | | | [facility] | | | | | | MEDICAL | | | | | | CENTER - | | | | | | LABORATORY | | + + + + + + | % Basophils | 0.2 | 0 - 1 % | [facility] | | | | | | [facility] | | | | | | MEDICAL | | | | | | CENTER - | | | | | | LABORATORY | | + + + + + + | Absolute | 5.6 | 1.5 - 6.6 K/uL | [facility] | | | Neutrophils | | | [facility] | | | | | | MEDICAL | | | | | | CENTER - | | | | | | LABORATORY | | + + + + + + | Absolute | 2.4 | 0.6 - 3.2 K/uL | [facility] | | | Lymphocytes | | | [facility] | | | | | | MEDICAL | | | | | | CENTER - | | | | | | LABORATORY | | + + + + + + | Absolute | 0.7 | 0.0 - 1.0 K/uL | [facility] | | | Monocytes | | | [facility] | | | | | | MEDICAL | | | | | | CENTER - | | | | | | LABORATORY | | + + + + + + | Absolute | 0.4 | 0.0 - 0.4 K/uL | [facility] | | | Eosinophils | | | [facility] | | | | | | MEDICAL | | | | | | CENTER - | | | | | | LABORATORY | | + + + + + + | Absolute | 0.0 | 0.0 - 0.1 K/uL | [facility] | | | Basophils | | | [facility] | | [...] [address] | [place] | [phone] | | [facility] | | [address] | | | - LABORATORY | | | | + + + + + | [facility] | [address] | [place] | | | [facility] | | [address] | | | - LABORATORY | | | | + + + + + Renal Function Panel (07/01/2013 4:52 PM PDT) + + + + + + | Component | Value | Ref Range | Performed | Pathologist | | | | | At | Signature | + + + + + + | Glucose | 139 (H) | 70 - 109 mg/dL | [facility] | | | | | | [facility] | | | | | | MEDICAL | | | | | | CENTER - | | | | | | LABORATORY | | + + + + + + | Calcium | 7.4 (L) | 8.3 - 10.5 | [facility] | | | | | mg/dL | [facility] | | | | | | MEDICAL | | | | | | CENTER - | | | | | | LABORATORY | | + + + + + + | Phosphorus | 7.0 (H) | 2.5 - 4.6 mg/dL | [facility] | | | | | | [facility] | | | | | | MEDICAL | | | | | | CENTER - | | | | | | LABORATORY | | + + + + + + | Albumin | 2.5 (L) | 3.2 - 5.0 gm/dL | [facility] | | | | | | [facility] | | | | | | [facility] | | | | | | CENTER - | | | | | | LABORATORY | | + + + + + + | BUN | 60 (H) | 7 - 18 mg/dL | [facility] | | | | | | [facility] | | | | | | MEDICAL | | | | | | CENTER - | | | | | | LABORATORY | | + + + + + + | Creatinine | 7.43 ()Comment: VALUE | 0.60 - 1.30 | [facility] | | | | CONSISTENT WITH PREVIOUS | mg/dL | [facility] | | | | RESULTS | | MEDICAL | | | | | | CENTER - | | | | | | LABORATORY | | + + + + + + | Estimated | 8 (L)Comment: For | >60 mL/min/A | [facility] [...] + + + + | BUN/Creatin | 8.1 (L) | 12 - 20 | [facility] | | | ine Ratio | | | [facility] | | | | | | [facility] | | | | | | CENTER - | | | | | | LABORATORY | | + + + + + + | Na | 141 | 136 - 149 mEq/L | [facility] | | | | | | [facility] | | | | | | [facility] | | | | | | [facility] - | | | | | | LABORATORY | | + + + + + + | K | 5.0 | 3.5 - 5.1 mEq/l | [facility] | [facility] | | | | | | [facility] | | | | | | C[facility] - | | | | | | LABORATORY | | + + + + + + | Cl | 111 (H) | 98 - 109 mEq/l | [facility] | [facility] | [facility] | | | | | | [facility] | | | | | | [facility] - | | | | | | LABORATORY | | + + + + + + | CO2 | 19 (L) | 24 - 31 mEq/L | [facility] | [facility] | | | | | | [facility] | | | | | | [facility] - | | | | | | LABORATORY | | + + + + + + | Anion Gap | 16.0 | 6.0 - 17.0 | [facility] | [...] + | [facility] | [address] | [place] | [phone] | | [facility] | | [id number] | | | - LABORATORY | | | | + + + + + | [facility] | [address] | [place] | | | [facility] | | [id number], [facility] | | | - LABORATORY | | | | + + + + + POC Glucose (07/01/2013 4:41 PM PDT) + +-------+ + + + | Component | Value | Ref Range | Performed | Pathologist | | | | | At | Signature | + +-------+ + + + | Glucose, | 126 | 79 - 150 md/dL | [facility] | | | POC | | | [facility] | | | | | | MEDICAL [...] + | [facility] | [address] | [place] | [phone] | | [facility] | | [id number] | | | - LABORATORY | | | | + + + + + | [facility] | [address] | [place] | | | [facility] | | [id number], [facility] | | | - LABORATORY | | | | + + + + + documented in this encounter Visit Diagnoses Not on filedocumented in this encounter
--- OUTSIDE RECORDS SUMMARY | ~2020-03-04 | XMS | Encounter Summary ---
Demographics + + + | Address | [address] | | | [place] [address] | + + + | Home Phone [...] Organization | [facility] | | | and [place] [...] Team Providers + +------+ + | Care Video Production Assistant Name | Role | Phone | [...] V (HCC) | [place] | [place] [address] | | | | | Procedures | [id number] | Phone: | | | | | [place] | Phone: | [phone] | | | | | INSERTION | [phone] | Fax: | | | | | TUNNELED | Fax: | [phone] | | | | | INTRAPERITON | [phone] | | | | | | EAL [...] + + | 05/27/ | [facility] | [facility] | Artem Angelo | Chronic kidney | | 2012 | Visit | SURGERY [address] | MD [place], FACS [address] | disease (CKD), stage | | | | [place], [place] | [facility] | V (HCC) (Primary | | | | [address] | [place] [address] | Dx) | | | | [phone] | [phone] | | | | | | | [...] ? Frances Obrien MD Who is your Sox Analyst/Kidney Specialist ? Sarai Ng When was the current dialysis access placed? [...] vomiting, diarrhea or constipation. 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 Date 05/08/2013 BUN 50 CREA 5.89 Jessica [...] He is still able to wor k part time. He reports robust appetite, without nausea, vomiting [...] may need to be evaluated by a manager field investigations in the future. His most recent liver [...] dialysis, medication education. CC: Frances Obrien MD [facility] Frances Obrien MD's notes were not [...] abdominal structures, clots in legs, pulmonary emboli, [place], st roke and was explained. No guarantees [...]
--- OUTSIDE RECORDS SUMMARY | ~2020-03-04 | XMS | Encounter Summary ---
Demographics + + + | Address | [address] | | | [place] [address] | + + + | Home Phone | | + + + | Preferred Language | Unknown | + + + | Marital Status | | + + + | Pentecostal Affiliation | [id number] | + + + | Race | Unknown | + + + | Ethnic Group | Unknown | + + + Author + + + | Author | [facility] | | | and Scar[place] | + + + | Organization | [facility] | | | and [...] Team Providers + +------+ + | Care Pilot Boat Deckhand Name | Role | Phone | + [...] | | | disease | NW | [place], [address] | | | | | ([facility]) | [place] | [address] | | | | | Procedures | [address] | [place] | | | | | ID OFFICE | [facility] | [id number] Phone: | | | | | OUTPATIENT | [place] | [phone] | | | | | VISIT 25 | [address] | Fax: | | | | | MINUTES | Phone: | [phone] | | | | | dialysis | [phone] | | | | | | | Fax: | | | | | | | [phone] | | +--------+--------+ + + + + Encounter Details +--------+ + + + + | Date | Type | Department | Care Team | Description | +--------+ + + + + | 12/04/ | Off-Site | [facility] | Uche Orozco | End stage renal | | 2017 | Visit | NEPHROLOGY [address] | M, DO [address] | disease (HCC) | | | | [address] | [place] | (Primary Dx) | | | | [place] | [place] | | | | | [address] | [address] | | | | | [phone] | | | +--------+ + + + [...] + + + | Blood Pressure | 160/79 | 12/04/2016 5:21 PM | | | | | PST | | + + + + + | Pulse | - | - | | + + + + + | Temperature | 36 C (96.8 F) | 12/04/2016 5:21 PM | | | | | PST [...] encounter Progress Notes Uche Orozco DO - 12/04/2016 5:20 PM PST Subjective: DAVITA DIALYSIS NOTE Patient [...] Outpatient Prescriptions Marked as Taking for the 12/04/16 encounter (Off-Site Visit) with Jean Orozco DO Medication Sig Dispense Refill aspirin 81 mg EC tablet Take 81 mg by mouth Daily. atorvaSTATin (LIPITOR) 20 mg tablet Take 1 tablet by mouth Daily. 30 tablet 5 B Tdofvol-A-Cgmhe Acid (OLEG-TEQUILA RX) 1 MG TABS Take 1 mg by mouth Daily. 30 each 11 calcium acetate (PHOSLO) 667 mg capsule Take 1,334 mg by mouth 3 times daily (with meal s). Cholecalciferol (VITAMIN D3) 5000 UNITS CAPS Take 2,000 Units by mouth Daily. doxercalciferol (HECTOROL) 2 mcg/mL injection Inject 5 mcg into the vein Three times a week. epoetin padilla (EPOGEN,PROCRIT) 3,000 units/mL injection Inject 5,800 Units under the ski n Three times a week. [DISCONTINUED] furosemide (LASIX) 40 mg tablet Take 80 [...] Besylate Unknown Metformin Diarrhea Objective: Blood pressure 160/79, temperature 36 C (96.8 F). EDW 122 kg Physical Exam Heart: Regular rate and rhythm with no S3, S4, murmur or rub. Lungs: CTA bilaterally. No rales or wheezes. Abdomen: Soft, flat, nontender, normoactive bowel sounds. Extremities: No clubbing, cyanosis, or edema. LAB: BUN 95, Cr 11.83, K+ 5.4, HCO3 2/, Ca++ 8.0, PO4 9.0, PTH 1000, Alb 3.7, Hbaic 8.3 %, Hb 11.7, TSat. = 19 %, Ferritin 700, eKT/V = 1.10. Assessment: 1. ESRD-- his adequacy was suboptimal, therefore, his time was increased to 4:15'. He lik martin requires a 1.80 to 2.0 cm-2 dialyzer for optimal kinetics. This is medically necessary for optimal clearance. Have discussed with eleno Roger RN about using a formulary request. 2. Hypertension-- his EDW may be closer to 121 kg? 3. Anemia secondary to CKD--his Hb is above target. Will hold the EPO until his Hb is < 1 1.0 g/dl. Will give him a course of Venofer 100 mg, IV, Q tx, x 10 doses to target his TSat > 20%. 4. SHPTH-- his PO4 is minimally improving. I think that in combination with improved rainer eddie, dietary restriction, that resumption of Sensipar would be beneficial. Given his BMI, will start at 60 mg, daily. This was called to the Pharmacy at [facility]. 5. Nutrition-- serum albumin is decreased. Hopefully, will improve as adequacy is improve d. 6. Type 2 DM-- fair control. He is on a moderately high dose of Lantus. 7. Hepatitis C--transaminases have been stable . 8. Hyperlipidemia--on statin Rx. 9. Transplantation--work up in progress. Plan: 1. Will resume Sensipar at 60 mg, daily for his PTH. 2. Will recheck the Hb weekly and resume EPO when the Hb is < 11.0 g/dl 3. I reviewed his monthly lab with him. 4. He is to have an F-gram with [employer] in next 7 days to optimize the adequacy. 5. Will requisition for a 2.0 square-cm dialyzer. 6. He will be rechecked in 2 weeks. : [facility] Monica Cornejo MD documented in thi s encounter Plan of Treatment Not on filedocumented as of this encounter Visit Diagnoses + + | Diagnosis | + + | End stage renal disease (HCC) - Primary End stage renal disease | + + documented in this encounter"
--- OUTSIDE RECORDS SUMMARY | ~2020-03-04 | XMS | Encounter Summary ---
Demographics + + + | Address | [address] | | | [place] [address] | + + + | Home Phone | | + + + | Preferred Language | Unknown | + + + | Marital Status | | + + + | Presybeterian Affiliation | 1041 | + + + | Race | Unknown | + + + | Ethnic Group | Unknown | + + + Author + + + | Author | [facility] | | | and Scarana | + + + | Organization | [facility] | | [...] Team Providers + +------+ + | Care Traffic Circuit Engineer Name | Role | Phone | + +------+ + PCP | Unavailable | + +------+ + Reason for Visit + + + | Reason | Comments | + + + | Chronic Kidney | Stage V - 1 mo follow-up | | Disease | | + + + Evaluate & Treat (Routine) +--------+--------+ + + + + | Status | Reason | Specialty | Diagnoses / | Referred By | Referred To | | | | | Procedures | Contact | Contact | +--------+--------+ + + + + | Closed | | Nephrology | Diagnoses | [place], | | | | | | RENAL MASS | MD Frances | [place], | | | | | Procedures | [address] | [place] [address], | | | | | EVAL/TRE[address] | [address] [place] | SPINNING MULE OPERATOR [address] | | | | | | [place], [place] | [address], | | | | | | [address] | [address] | | | | | | Phone: | [place], | | | | | | [phone] | [place] [address] | | | | | | Fax: | Phone: | | | | | | [phone] | [phone] | | | | | | | Fax: | | | | | | | [phone] | +--------+--------+ + + + + Encounter Details +--------+---------+ + + + | Date | Type | Department | Care Team | Description | +--------+---------+ + + + | 06/26/ | Office | [facility] [place] | [place], | Chronic kidney | | 2012 | Visit | NEPHROLOGY [address] | [place] | disease (CKD), stage | | | | [address] | [address], [address] [place] | V (HCC) (Primary | | | | [place], [place] | [address] [place] | Dx); Peritoneal | | | | [address] | [id number] | dialysis catheter | | | | [phone] | | exit site infection | | | | | | (HCC); Unspecified | | | | | | essential | | | | | | hypertension; | | | | | | Secondary | | | | | | hyperparathyroidism | | | | | | (of renal origin) | | | | | | (HCC); Type II or | | | | [...] + + + | Blood Pressure | 144/68 | 06/26/2013 3:17 PM | | | | | PDT | | + + + + + | Pulse | 82 | 06/26/2013 3:17 PM | | | | | PDT | | + + + + + | Temperature | 37.1 C (98.7 F) | 06/26/2013 3:17 PM | | | | | PDT | | + + + + + | Respiratory Rate | 18 | 06/26/2013 3:17 PM | | | | | PDT | | + + + + + | Oxygen Saturation | - | - | | + + + + + | Inhaled Oxygen | - | - | | | Concentration | | | | + + + + + | Weight | 130.3 kg (287 lb 3.2 | 06/26/2013 3:17 PM | | | | oz) | PDT | | + + + + + | Height | 185.4 cm (6' 1") | 06/26/2013 3:17 PM | | | | | PDT | | + + + + + | Body Mass Index | 37.89 | 06/26/2013 3:17 PM | | | | | PDT | | + + + + + documented in this encounter Patient Instructions Patient Instructions Sarai Pabon ARNP - 06/26/2013 4:23 PM Chase set up an a ppt with Dr. Angelo for chest catheter placement and removal of PD catheter. Please start new medications as discussed. We will contact you in the next few days to let you know of your upcoming appts with Dr. Huong rai and dialysis. P M PDT documented in this encounter Progress Notes Sarai Pabon ARNP - 06/27/2013 3:24 PM PDTDiscussed this patient with Dr. Jaime dc earlier this AM. It was decided that it would be best to admit pt to hospital so that he could be managed closely and his PD catheter removed. Call made to Dr. Miranda, floral designer salesperson [facility]. Discussed this with patient, including risk of his infection becoming peritonitis or bacter emia, but he declined hospital admission. He reports that he feels fine and would prefer to have an outpatient procedure. Dr. Miranda returned call and would prefer that Dr. Angelo see patient next week, unless pt becomes emergent, since pt does not need urgent dialysis and is not showing signs of bactere carlito or peritonitis. He will be floral designer salesperson throughout the weekend in case pt worsens. Preliminary PD exit site culture shows pseudomonas and lactose fermenting GNB. Antibiotics changed from dicloxacillin to cipro and augmentin. Pt had not yet picked up the initial anti biotic. I explained culture results and strongly encouraged patient to cotton picking machine operator antibiotics a nd start them TODAY. Full plan was discussed extensively with patient over the phone. New me dication list faxed to [facility] pharmacy and [place], pharmacist there will give it to jeffy weston along with all of his new medications. Paperwork in progress for admission to [facility] dialysis unit next Sunday. Dr. Lobo i s aware of plan and is floral designer salesperson for nephrology over the weekend. Joana Sepulveda RN - 06/26/2013 4:11 P M PDTMedications did not print on prescription paper; medications were re-printedElectronica lly signed by Joana Grijalva RN at 06/27/2013 3:37 PM Sarai Portillo ARNP - 0 06/26/2013 3:47 PM PDT Nephrology Follow Up Visit Date: 06/26/2013 PCP: Frances Obrien MD HPI: Celso Sutton Case is a 53 y.o. male following up for diabetic nephropathy, CKD stage 5. Celso also has hypertension, diabetes mellitus type 2 requiring insulin that has not been we ll controlled, chronic diabetic foot ulcer, hyperlipidemia, and hepatitis C. He also has alee ign prostatic hypertrophy with a history of chronic UTI's. He also has nephrotic range prote inuria. Celso has struggled with following up and adherence to his medication regimen. At last visi t I educated him extensively about dialysis, especially peritoneal dialysis because he indic ated he preferred that modality so that he could keep working. He had a PD catheter placed [address] Angelo but did not follow up with Dr. Angelo for post op care. PD staff trie d to contact him the week after his surgery to set up catheter care appt but his phone was d isconnected. Since that time we have tried to reach him many times. His phone was disconnect ed and there was no return call when messages were left on his son's phone. He no showed for Dr. Angelo's appt on 06/10/13 and then no showed for an appt here in our office on 06/16/13. There is record of a no show letter being sent by Dr. Angelo and he admits to receiving that . He has no reason for not following up. We attempted to send PD supplies to his house this week so that he could be ready to start dialysis training but the [employer] line driver found an empty, very rundown house so he did not unload any supplies. Evidently pt's phone is working again now. He reports that he has been placing his own bandaids and dressings on his PD cat heter site with no specific cleaning or care and admits that it is "a little red". He says h e is feeling well, only mildly tired. 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 N o nausea, vomitting, fever, chills, abdominal pain, chest pain, shortness of breath or any o ther complaints. He reports to taking all of his medications regularly. Patient Active Problem List Diagnosis Date Noted [facility] 06/25/2013 Unknown Secondary hyperparathyroidism (of renal origin) 01/23/2013 Unknown Chronic kidney disease (CKD), stage V 10/18/2012 Unknown Nephrotic syndrome 10/18/2012 Unknown Right renal mass 10/18/2012 Unknown BPH (benign prostatic hyperplasia) Unknown Recurrent UTI Unknown Heart murmur Unknown Chronic kidney disease Unknown Unspecified essential hypertension Unknown Type II or unspecified type diabetes mellitus with renal manifestations, uncontrolled Unknown Vitamin d deficiency Unknown Obesity Unknown Dyslipidemia Unknown Hepatitis C Unknown Diabetic foot ulcer 01/01/2012 Unknown Past Medical History Diagnosis Date Dyslipidemia Cellulitis and abscess of leg 09/27/2009 except foot, recurring Obesity Vitamin d deficiency Diabetes mellitus, type 2 1999 with neuropathy Diabetic foot ulcer 01/01/12 cellulits, 2nd left toe Arthritis 09/15/2012 Hypertension 2001 Chronic kidney disease 1999 stage IV, chronic renal failure, worsening with GFR of 13 Heart murmur Since childhood Recurrent UTI BPH with urinary obstruction flomax caused diarrhea Hepatitis C 2006 Onychia and paronychia of toe 04/2012 left great toe Dysuria 05/2012 Past Surgical History Procedure Date Knee arthroscopy 2006 & 2007 Bilateral Tonsillectomy 1964 Right arm laceration repair 1977 Left shoulder surgery 1979 Left forearm surgery for fracture 1985 Outpatient Prescriptions Marked as Taking for the 06/26/13 encounter (Office Visit) with TERRY Varela Medication Status Sig Dispense Refill aspirin 81 mg EC tablet Active Take 81 mg by mouth Daily. atorvaSTATin (LIPITOR) 10 mg tablet Active Take 10 mg by mouth Daily. diltiazem (DILACOR XR) 180 mg 24 hr capsule Active Take 180 mg by mouth Daily. furosemide (LASIX) 40 mg tablet Active Take 1 tablet by mouth Daily. 30 tablet 5 insulin glargine (LANTUS) 100 units/mL injection Active Inject 120 Units under the skin nightly. lisinopril (PRINIVIL,ZESTRIL) 40 MG tablet Active Take 40 mg by mouth Daily. metoprolol (TOPROL-XL) 100 MG 24 hr tablet Active Take 100 mg by mouth Daily. omeprazole (PRILOSEC) 20 mg capsule Active Take 20 mg by mouth every morning (before br eakfast). sitaGLIPtin (JANUVIA) 100 mg tablet Active Take 100 mg by mouth Daily. sodium bicarbonate 650 mg tablet Active Take 1 tablet by mouth 2 times daily. 60 table t 11 Allergies Allergen Reactions Amlodipine Besylate Unknown Metformin Diarrhea ROS: See HPI, edema "fine" when he takes furosemide. Denies anorexia, chest pain, dyspnea, orthopnea, nausea, vomiting, dysuria, hematuria, urinary frequency. Physical Exam: Filed Vitals: 06/26/13 1517 BP: 144/68 Pulse: 82 Resp: 18 Height: 1.854 m (6' 1") Weight: 130.273 kg (287 lb 3.2 oz) Temperature: 98.1 Constitutional: Well nourished male in no acute distress. Mouth/Throat: Oropharynx is clear and moist. Eyes: Pupils are equal, round, and reactive to light. Neck: Neck supple. No JVD present. Cardiovascular: Normal rate, regular rhythm and normal heart sounds. 2/6 systolic murmur, no gallop or rubs. Lungs: Effort normal and breath sounds normal. No respiratory distress. No crackles or whee zes. Abdominal: Soft. Bowel sounds are normal. No distension or tenderness. PD exit site with er ythema of 4 inch diameter around catheter. Purulent drainage noted from exit site. This is c ultured. Musculoskeletal: 1+ edema below knees. Neurological: Alert. Skin: Skin is warm. No rash. Psychiatric: Normal mood, flat affect. Labs reviewed with patient: 06/25/13 BUN 49, cr 6.16, Na 139, K+ 5.3, bicarb 16, chloride 111, glucose 214, calcium 8.3 , PTH 233.6, PO4 is 5.9, cholesterol 302, HDL 29.9, LDL *not able to be calculated due to hi gh triglycerides, Triglycerides 863 (not fasting lab), bili 0.3, AST 9, ALT 7, Alk. Phos. 10 9, albumin 3.3, MDRD GFR 10 ml/min. HBsag negative, Anti-HBs negative, Anti-HCV positive Recent Results (from the past 24 hour(s)) POCT URINALYSIS Component Value Range POC COLOR UA Yellow POC CLARITY UA Clear POC GLUCOSE UA 1000 mg/dL POC BILIRUBIN UA Negative POC KETONES UA Negative Negative POC SPECIFIC GRAVITY UA 1.020 POC BLOOD UA Trace Lysed POC PH UA 6.0 POC PROTEIN UA 300 mg/dL POC UROBILINOGEN UA 0.2 E.U./dL POC NITRITE UA Negative POC LEUKOCYTE ESTERASE UA Negative RED SUB UA Negative ICTOTEST Negative REMARK Assessment/Plan: 1. CHRONIC KIDNEY DISEASE STAGE V (585.5) Kidney disease likely due to diabetic nephropathy, though without a biopsy, concurrent glom erulonephritis cannot be entirely ruled out. No renal biopsy was completed as it would not c hange the course of his treatment as he presented in late stage CKD. Serologic work up was n egative. Kidney function continues to steadily fall, with persistent metabolic acidosis. Mil d hyperkalemia. He has had nephrotic range proteinuria. Pt denies uremic symptoms. Kidneys were normal sized without hydronephrosis. There is a right renal mass noted on ultr asound with MRI suggested that it was a proteinacious cyst, relative stability compared with ultrasound back to 2009. In the near future, once patient is on dialysis, this could be con firmed with a contrast CT scan. Had a valerie discussion with Celso about concerns I have with him doing PD. He does not foll ow up when requested and often does not follow his prescribed medication regimen. Now it delmar ears that he has a cellulitis around PD exit site and possible tunnel infection. He admits t hat he did not realize that he would need supplies stored at his house and did not realize t hat he would need to do PD on a daily basis (he thought it was 3 times a week). He says, "I heard what I wanted to hear" at the last visit despite the extensive education that was give n. Now he is realizing that PD is not feasible for him. We discussed hemodialysis and the in ed for access. He understands that a tunneled chest catheter will need to be placed because he does not have a fistula. He was instructed on care of tunneled chest catheter. Also the P D catheter will need to come out soon due to the infection. He will dialyze at [facility], likely next Sunday or Sunday. --Educated him about hyperkalemia and advised a low potassium diet. Also will increase fu rosemide to 80 mg daily to help with this. --Will increase sodium bicarb to 1300 mg twice daily but patient is ultimately needing d ialysis to correct acidosis. 2. INFECTION OF PD EXIT SITE This is cultured and sent to [facility] lab. It is cleaned and dressed by PD staff, with gentami vasiliy cream. Pt is educated about how to correctly take care of exit site until catheter can b e removed. Will plan on removal of PD catheter soon. Dr. Angelo is out until early next week so will discuss with floral designer salesperson surgeon. No sign of peritonitis and patient does not appear tox ic. He is educated extensively about signs of peritonitis or more severe infection. He is in structed to follow up right away if he notices any of these signs. --Dicloxacillin 500 mg po QID x 10 days, faxed to [facility] pharmacy. 3. HYPERTENSION Blood pressure under better control. Will increase furosemide as previously discussed. Also dialysis will help pt to reach dry weight. 4. SECONDARY HYPERPARATHYROIDISM (588.81) Phos and PTH are high. --Start renvela 800 mg with first bite of each meal. --Pt will need further education about low phos diet. 5. TYPE II DIABETES MELLITUS WITH RENAL MANIFESTATIONS, UNCONTROLLED (250.42) Diabetes has not been well controlled in the past. Continue follow up with Dr. Obrien. 6. RENAL MASS (593.9) Possibly a proteinaceous cyst. Will plan on a contrast CT scan when he is on dialysis. 7. HEPATITIS C (070.70) Patient may need to be evaluated by a cable maker in the future. His most recent liver fun ction tests were within normal limits (05/08/13). 8. HYPERLIPIDEMIA Not well controlled. Will increase atorvastatin to 20 mg daily. Will follow up with patient in dialysis unit, or sooner if he declines. He was given writte n and verbal instructions including medication list. Patient verbalized agreement and unders tanding of above plan. 65 minutes spent face to face with patient with greater than 50% of time in counseling, edu cation and coordination of care regarding ESRD, dialysis, medication education. CC: Frances Obrien MD [facility], [place], [facility] Review of Systems Physical Exam documented i n this encounter Plan of Treatment Not on filedocumented as of this encounter Procedures + +--------+ + + + | Procedure Name | Priori | Date/Time | Associated Diagnosis | Comments | | | ty | | | | + +--------+ + + + | POCT URINALYSIS, | Routin | 06/26/2013 | Chronic kidney | Results for this | | AUTO WITH CONF | e | 3:08 PM | disease (CKD), stage | procedure are in the | | | | PDT | V ([facility]) Type II or | results section. | | | | | unspecified type | | | | | | diabetes mellitus | | | | | | with renal | | | | | | manifestations, | | | | | | uncontrolled ([facility]) | | + +--------+ + + + documented in this encounter Results POCT Urinalysis Dipstick Automated (06/26/2013 3:08 PM PDT) + + + + + [...] + + + + | Glucose, | 1000 mg/dL | | | | | UA, [...] + + + + | Specific | 1.020 | | | | | [place], | | | | | | UA, POC | | | | | + + + + + + | Blood, UA, | Trace Lysed | | | | | POC | | | | | + + + + + + | pH, UA, POC | 6.0 | | | | + + + + + + | Protein, | 300 mg/dL | | | | | UA, POC | | | | | + + + + + + | Urobilinoge | 0.2 E.U./dL | | | | | n, UA, [...] disease, Stage V | + + | Peritoneal dialysis catheter exit site infection (HCC) Infection and inflammatory | | reaction due to peritoneal dialysis catheter | + + | Unspecified essential hypertension | + + | Secondary hyperparathyroidism (of renal origin) | + + | Type II or unspecified type diabetes mellitus with renal manifestations, | | uncontrolled(250.42) ([facility]) Type II or unspecified type diabetes mellitus with renal | | manifestations, uncontrolled | + + documented in this encounter
--- OUTSIDE RECORDS SUMMARY | ~2020-03-04 | XMS | Encounter Summary ---
Demographics + + + | Address | [address] | | | [place] [address] | + + + | Home Phone [...] | Organization | [facility] | | | and [...] Team Providers + +------+ + | Care Radiation Physicist Name | Role | Phone | + [...] [address] | MD [address] | ([facility]) | | | | [address] | [address] | | | | | [place], [place] | [place] [address] | | | | | [address] | [phone] | | | | | [phone] | | | +--------+ + + + [...] Performed At | + + + | Located Within [facility] | | | [facility] [address] | | | , | | | [id number]/RADIOLOGY Patient Name: CELSO CARO Date of : | | | 1960 Medical Record: [id number] Account: [id number] | | | O/P// Exam Date/Time: 11/09/2009 [...] 05:21 P | | | P P [facility]/anthony/[id number]/ | | | cc: MD HORTENCIA MALLOY MD | | + + + + + | Procedure Note | + + | Jasper Roger Conversion - 06/01/2019 5:11 PM PDT | | Located Within [facility] | | [facility] [address] | | , | | | | [id number]/RADIOLOGY | | | | Patient Name: CELSO CARO | | Date of : 1960 | | Medical Record: [id number] | | Account: [id number] | | O/P// | | | | [...] | P | | P | | [facility]/anthony/[id number]/ | | cc: LOPEZ CORDON MD | | HORTENCIA MARRERO MD | + + documented in this encounter Visit Diagnoses + + | Diagnosis | + + | Type II or unspecified type diabetes mellitus with other specified manifestations, not | | stated as uncontrolled | + + documented in this encounter"
--- OUTSIDE RECORDS SUMMARY | ~2020-03-04 | XMS | Encounter Summary ---
Demographics + + + | Address | [address] | | | [place] [address] | + + + | Home Phone [...] | [facility] | | | and [...] Team Providers + +------+ + | Care Shock Absorption Floor Layer Name | Role | Phone | + [...] NEPHROLOGY [address] | MD [address] | (Asymptomatic) | | | | [address] | [address] [place] | | | | | [place], [place] | [place] [address] | | | | | [address] | [phone] | | | | | [phone] | | | +--------+ + + + [...] Note Date of visit: 12/24/2013 [address] Clinic: [facility] Mode of dialysis: Hemodialysis Dialysis prescription: [...] cramps; no tingling. Pt was instructed by area attendant to decreased cinacalcet to 30 mg three [...] by mouth Daily. 30 tablet 5 B Bxrtgnk-M-Uygze Acid (OLEG-TEQUILA RX) 1 MG TABS Take [...] to three times a week (done by area attendant) -increase TUMS to 1000 mg qhs 6. Acid-base: Serum bicarb is decreased; pt reports some episodes of diarrhea. 7. Nutrition: On Liquacel supplementation. 8. Transplantation: Pt needs to optimize health; demonstrate participation and compliance w [facility]. 9. DM type 2: [...]
--- OUTSIDE RECORDS SUMMARY | ~2020-03-04 | XMS | Encounter Summary ---
Demographics + + + | Address | [address] | | | [place] [address] | + + + | Home Phone | | + + + | Preferred Language | Unknown | + + + | Marital Status | | + + + | Scientologist Affiliation | 1041 | + + + | Race | Unknown | + + + | Ethnic Group | Unknown | + + + Author + + + | Author | [facility] | | | and [place] | + + + | Organization | [facility] | | | and [place] [...] Team Providers + +------+ + | Care Booster Pump Oiler Name | Role | Phone | [...] ([facility]) | [place] | [address] [place] | | | | | Procedures | [address] | [place] | | | | | [place] OFFICE | Phone: | [phone] Phone: | | | | | OUTPATIENT | [phone] | [phone] | | | | | VISIT 25 | Fax: | Fax: | | | | | MINUTES | [phone] | [phone] | +--------+--------+ + + + + Encounter Details +--------+ + + + + | Date | Type | Department | Care Team | Description | +--------+ + + + + | 02/01/ | Off-Site | [facility] [place] | Uche Orozco | End stage renal | | 2015 | Visit | NEPHROLOGY [address] | M, DO [address] | disease (HCC) | | | | [address] | [place], [address] | (Primary Dx); Type | | | | [place], [place] | [place], [place] | II or unspecified | | | | [address] | [address] | type diabetes | | | | [phone] | | mellitus with renal | | | | | | manifestations, | | | | | | uncontrolled (HCC) | +--------+ + + + + [...] + + + | Blood Pressure | 150/88 | 02/01/2015 4:19 PM | | | | | PDT | | + + + + + | Pulse | - | - | | + + + + + | Temperature | 35.8 C (96.5 F) | 02/01/2015 4:19 PM | | | | | PDT [...] encounter Progress Notes Uche Orozco DO - 02/06/2015 4:20 PM PDT Subjective: [facility] DIALYSIS NOTE Patient ID: Celso Caro is a 54 y.o. male. 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 He also has T2DM, requiring insulin, anemia secondary to CKD, hyperlipidemia, Hepatitis C, morbid obesity and a question of a right renal mass on prior US. He is doing much better w ith compliance, fluid restriction and phosphorus restriction. He is doing much better job o f attending all of his prescribed treatments. Outpatient Prescriptions Marked as Taking for the 02/01/15 encounter (Off-Site Visit) with Jean Orozco DO Medication Sig Dispense Refill aspirin 81 mg EC tablet Take 81 mg by mouth Daily. atorvaSTATin (LIPITOR) 20 mg tablet Take 1 tablet by mouth Daily. 30 tablet 5 B Qdvejjz-B-Mjsmg Acid (OLEG-TEQUILA RX) 1 MG TABS Take 1 mg by mouth Daily. 30 each 11 Cholecalciferol (VITAMIN D3) 5000 UNITS CAPS Take 5,000 Units by mouth Daily. cinacalcet (SENSIPAR) 30 mg tablet Take 1 tablet by mouth Daily. 90 tablet 4 doxercalciferol (HECTOROL) 4 MCG/2ML injection Inject 4.5 mcg into the vein [...] Besylate Unknown Metformin Diarrhea Objective: Blood pressure 150/88, temperature 35.8 C (96.5 F). EDW 122 kg Physical Exam Heart: Regular rate and rhythm with no S3, S4, murmur or rub. Lungs: CTA bilaterally. No rales or wheezes. Abdomen: Soft, flat, nontender, normoactive bowel sounds. Extremities: No clubbing, cyanosis, or edema. LAB: BUN 38, Cr 11.1, K+ 4.4, HCO3 25, Ca++ 7.7, PO4 5.0, PTH 46, Alb 3.8, Hb 10.7, spKT/V = 1.60. Assessment: 1. ESRD--he appears well dialyzed clinically on the current Rx. 2. Hypertension--good control on current dose of lisinopril. 3. Anemia--Will continue the EPO at current dose and recheck the Fe stores next quarter. 4. SHPTH--the PTH is stable on her current dose of Hectorol. Will decrease the dose furth er per the [facility] PTH algorithm. 5. Nutrition--his appetite is excellent on the current Rx. 6. Type 2 DM--will recheck the Hba1c next quarter. 7. Hepatitis C--stable. Apparently, she needs to still schedule a liver Bx, per last [facility] correspondence. 8. Hyperlipidemia--Will recheck the lipid profile next quarter. 9. Transplantation-- I have discussed this, however, he is noncommittal about further plan jadon. 10. Right renal mass, MRI, 10/2012--suspicious for complex, "proteinaceous cysts, " on MRI at that time. He denies any new symptoms. Plan: 1. I encouraged Herman that he has made excellent progress with his fluid restriction and P O4 control. 2. He is much improved in attending all of his prescribed treatments the past 2 mo. 3. Will decrease the Hectorol further per the Vitamin D algorithm. He will be rechecked i n 2 weeks. CC: [facility], [facility] documented in thi s encounter Plan of Treatment Not on filedocumented as of this encounter Visit Diagnoses + + | Diagnosis | + + | End stage renal disease (HCC) - Primary End stage renal disease | + + | Type II or unspecified type diabetes mellitus with renal manifestations, | | uncontrolled(250.42) ([facility]) Type II or unspecified type diabetes mellitus with renal | | manifestations, uncontrolled | + + documented in this encounter
--- OUTSIDE RECORDS SUMMARY | ~2020-03-04 | XMS | Encounter Summary ---
Demographics + + + | Address | [address] | | | [place] [address] | + + + | Home Phone | | + + + | Preferred Language | Unknown | + + + | Marital Status | | + + + | Sabianism Affiliation | 1041 | + + + | Race | Unknown | + + + | Ethnic Group | Unknown | + + + Author + + + | Author | [facility] | | | and [place] | + + + | Organization | [facility] | | | and [...] Team Providers + +------+ + | Care Leaf Sorter Name | Role | Phone | + +------+ + PCP | Unavailable | + +------+ + Encounter Details +--------+ + + + + | Date | Type | Department | Care Team | Description | +--------+ + + + + | 08/25/ | Off-Site | [facility] [place] | Lexi Kuo W, | End stage renal | | 2012 | Visit | NEPHROLOGY [address] | [address] | disease (HCC) | | | | [address] | [address] [place] | (Primary Dx); | | | | [place] | [place] [address] | Unspecified | | | | [address] | [phone] | hypertensive kidney | | | | [phone] | | disease with chronic | | | | | | kidney disease | | | | | | stage V or end stage | | | | | | renal disease | | | | | | ([facility]); Anemia in CKD | | | | | | (chronic kidney | | | | | | disease); Secondary | | | | | | hyperparathyroidism | | | | | | (of renal origin) | | | | | | ([facility]) | +--------+ + + + [...] + + documented as of this encounter Patient Instructions Patient Instructions Lexi Kuo MD - 08/25/2013 4:00 PM PSTStart TUMS 750 mg or 10 00 mg at bedtime. Follow-up with Dr. Angelo on 09/02 @ 1:15 pm for assessment of AV fistula. Electronically s igned by Lexi Kuo MD at 08/25/2013 4:01 PM PST documented in this encounter Progress Notes Lexi Kuo MD - 08/25/2013 1:37 PM PSTFormatting of this note might be different f rom the original. Comprehensive Dialysis Monthly Note Date of visit: 08/25/2013 Dialysis Clinic: [facility] [place] Mode of dialysis: Hemodialysis Dialysis prescription: MWF, t=4.5 hr, [place] Polyflux 21R, Na 138, K 2, Ca 2.5, bicarb 37, BFR 400, EDW 128.5 kg Access: R IJ permacath, Left brachial-cephalic AVF created on 07/28/13 HPI: CELSO CARO is a 53 y.o. male with ESRD secondary to diabetic nephropathy. His co -morbidities include type 2 IDDM, hyperlipidemia, hepatitis C, morbid obesity. Pt initiated hemodialysis in Jun 2013. Pt underwent creation of left brachial-cephalic AVF on 07/28/[address] Angelo. Pt reports feeling well. Pt denies chest pain, shortness of breath, edema, nausea, vomitin g, anorexia. Pt reports he is adjusting to dialysis. Pt reports he urinates a normal amoun t; taking Lasix once a day. PMH: Patient Active Problem List Diagnosis Date Noted End stage renal disease 08/07/2013 Peritoneal dialysis catheter exit site infection 06/27/2013 Preventative health care 06/25/2013 Note Last Updated: [...] Outpatient Prescriptions Marked as Taking for the 08/25/13 encounter (Off-Site Visit) with Lexi Kuo MD Medication Sig Dispense Refill aspirin 81 mg EC tablet Take 81 mg by mouth Daily. atorvaSTATin (LIPITOR) 20 mg tablet Take 1 tablet by mouth Daily. 30 tablet 5 B Oraobmo-J-Giixj Acid (OELG-TEQUILA RX) 1 MG TABS Take 1 mg [...] 25 mg by mouth Daily. EXAM: T 96.3, HR 74, BP 138/74, pre weight 131.7 kg, gain 2.9 kg Constitutional: Appears well-developed and well-nourished. No distress. Cardiovascular: Normal rate, regular rhythm and normal heart sounds. Trace peripheral natanael a. Lungs: Respiratory effort normal and breath sounds normal. Abdominal: Soft. Bowel sounds are normal. No distension or tenderness. Musculoskeletal: No muscle tenderness. Neurological: Alert. Dialysis Access: R IJ permacath with BFR 400 mL/min; LUE AVF with bruit/thrill. Monthly dialysis labs on 08/11/13: Hemoglobin 11.3 (08/18/13) / TSAT 28% / Ferritin 384 Sodium 138 / Potassium 5.0 / Chloride 107 / Bicarbonate 18* Calcium 8.4 corrected / Phosphate 5.5 / PTH 741 / Albumin 3.4 (3.2) Kt/V 1.09 / URR 67% / Creatinine 6.8 / BUN 43 Assessment and plan: 1. ESRD: Dialysis clearance is not yet at goal. Dialysis time has been increased to 4.5 hr due to low clearance. Anticipate improvement in this once pt is dialyzing via AVF. 2. Access: Currently on R IJ permacath. AVF feels good, but deep. Pt will f/u with Dr. Huong rai. Appt scheduled for 09/02 @ 1:15 PM. 3. HTN/volume: Average IDWG is 2.5 kg. BP stable. 4. Anemia due to ESRD: Hb at goal. Off Epogen. On maintenance Venofer. 5. Secondary hyperparathyroidism / mineral bone disease: Serum calcium is low. Serum phos is borderline high. PTH is elevated. Last vit D25OH level was 17 (Jun 2013). -recommend TUMS 750 or 1000 mg at bedtime -pt has restarted in vitamin D supplementation; he will verify the dose -on Hectoral -on sevelamer; if persistently hypocalcemic, consider switching to calcium acetate 6. Acid-base: Serum bicarb is very low; due to missed dialysis treatment. 7. Nutrition: Serum albumin is low. On Liquacel supplementation. 8. Transplantation: Pt needs to optimize health; demonstrate participation and compliance w [facility]. 9. DM type 2: On Januvia and Lantus. cc: Teo Obrien documented in this encounter Plan of Treatment Not on filedocumented as of this encounter Visit Diagnoses + + | Diagnosis | + + | End stage renal disease ([facility]) - Primary End stage renal disease | + + | Unspecified hypertensive kidney disease with chronic kidney disease stage V or end | | stage renal disease(403.91) ([facility]) Unspecified hypertensive kidney disease with chronic | | kidney disease stage V or end stage renal disease | + + | Anemia in CKD (chronic kidney disease) Anemia in chronic kidney disease | + + | Secondary hyperparathyroidism (of renal origin) | + + documented in this encounter"
--- OUTSIDE RECORDS SUMMARY | ~2020-03-04 | XMS | Encounter Summary ---
Demographics + + + | Address | [address] | | | [place] [address] | + + + | Home Phone [...] + | Organization | [facility] | | | and [...] Team Providers + +------+ + | Care Inspector Final Assembly Electrical Name | Role | Phone | + +------+ + PCP | Unavailable | + +------+ + Encounter Details +--------+ + + + + | Date | Type | Department | Care Team | Description | +--------+ + + + + | 09/15/ | Abstract | [facility] [place] | Uche Orozco | | | 2016 | | NEPHROLOGY [address] | M, DO [address] | | | | | [address] | [place], [address] | | | | | [place] | [place] | | | | | [address] | [address] | | | | | [phone] | | | +--------+ + + + [...] this encounter Progress Notes Dedra Camara - 09/15/2016 11:42 AM PSTOutside record: Fistulogram, arteriovenous from Dontae Cornejo MD dos 09/07/16. Sent to scan.Electronically signed by Dedra johansen 09/15/2016 11:42 AM PSTdocumented in this encounter Plan of Treatment Not on filedocumented as of this encounter Visit Diagnoses Not on filedocumented in this encounter"
--- OUTSIDE RECORDS SUMMARY | ~2020-03-04 | XMS | Encounter Summary ---
Demographics + + + | Address | [address] | | | [place] [address] | + + + | Home Phone | | + + + | Preferred Language | Unknown | + + + | Marital Status | | + + + | Buddhist Affiliation | 1041 | + + + | Race | Unknown | + + + | Ethnic Group | Unknown | + + + Author + + + | Author | [facility] | | | and [place] | + + + | Organization | [facility] | | | and [place] [...] Providers + +------+ + | Care Social Media Marketing Manager Name | Role | Phone | [...] [address] | [address], [place] | | | | | [place] | [address] [place] | | | | | [address] | [address] | | | | | [phone] | | | +--------+ + + + [...]
--- OUTSIDE RECORDS SUMMARY | ~2020-03-04 | XMS | Encounter Summary ---
Demographics + + + | Address | [address] | | | [place] [address] | + + + | Home Phone | | + + + | Preferred Language | Unknown | + + + | Marital Status | | + + + | Baptism Affiliation | 1041 | + + + | Race | Unknown | + + + | Ethnic Group | Unknown | + + + Author + + + | Author | [facility] | | | and [place] | + + + | Organization | [facility] | | | and [place] [...] Team Providers + +------+ + | Care Probate Lawyer Name | Role | Phone | + +------+ + PCP | Unavailable | + +------+ + Encounter Details +--------+ + + + + | Date | Type | Department | Care Team | Description | +--------+ + + + + | 03/30/ | Documentati | [facility] [place] | Uche Orozco | | | 2013 | on | NEPHROLOGY [address] | M, DO [address] | | | | | [address] | [place], [address] | | | | | [place] | [place] | | | | | [address] | [address] | | | | | [phone] | | | +--------+ + + + [...] encounter Progress Notes Uche Orozco DO - 05/05/2014 4:45 PM PDT NEPHROLOGY He is seen on HD, tolerating it well with QB 400 at the left arm AVF. PE: BP 164/77 T 96.0 EDW 119 kg Lungs: no rales, no wheezes. Abd: NABS. Ext: no edema. Plan 1. Will continue the current Rx. documented in thi s encounter Plan of Treatment Not on filedocumented as of this encounter Visit Diagnoses Not on filedocumented in this encounter"
--- OUTSIDE RECORDS SUMMARY | ~2020-03-04 | XMS | Encounter Summary ---
Demographics + + + | Address | [address] | | | [place] [address] | + + + | Home Phone [...] Organization | [facility] | | | and [place] [...] Team Providers + +------+ + | Care Compression Molding Machine Operator Name | Role | Phone | + +------+ + PCP | Unavailable | + +------+ + Encounter Details +--------+ + + + + | Date | Type | Department | Care Team | Description | +--------+ + + + + | 10/22/ | Procedure | [facility] [place] | Uche Orozco | End stage renal | | 2019 | visit | NEPHROLOGY [address] | M, DO [address] | disease (HCC) | | | | [address] | [place], [address] | (Primary Dx); | | | | [place], [place] | [place] | Chronic | | | | [address] | [address] | osteomyelitis of | | | | [phone] | | foot (HCC) | +--------+ + + + + [...] encounter Progress Notes Uche Orozco DO - 10/22/2018 4:30 PM PSTNEPHROLOGY Sterile prep. PICC line removed intact, with sterile technique. No erythema or redness a t site. Band aid applied to site . No complications. Tolerated well. documented in thi s encounter Plan of Treatment Not on filedocumented as of this encounter Visit Diagnoses + + | Diagnosis | + + | End stage renal disease (HCC) - Primary End stage renal disease | + + | Chronic osteomyelitis of foot (HCC) Chronic osteomyelitis, ankle and foot | + + documented in this encounter"
--- OUTSIDE RECORDS SUMMARY | ~2020-03-04 | XMS | Encounter Summary ---
Demographics + + + | Address | [address] | | | [place] [address] | + + + | Home Phone | | + + + | Preferred Language | Unknown | + + + | Marital Status | | + + + | Jain Affiliation | 1041 | + + + | Race | Unknown | + + + | Ethnic Group | Unknown | + + + Author + + + | Author | [facility] | | | and [place] | + + + | Organization | [facility] | | [...] Team Providers + +------+ + | Care Intervention Manager Name | Role | Phone | [...] | renal | PA-C [address] | [address] | | | | | disease | [address] | [place], [place] | | | | | [facility] | [place] | [address] [facility] | | | | | Procedures | [address] | [place] | | | | | [place] ESRD | [place], | [address] Phone: | | | | | RELATED SVC | [place] | [phone] | | | | | MONTHLY | [address] | Fax: | | | | | 20&/> YR OLD | Phone: | [phone] | | | | | 4/> VISITS | [phone] | | | | | | dialysis | Fax: | | | | | | | [phone] | | + +--------+ + + + [...] | [address] | [place], [address] | (Primary Dx) | | | | [place], [place] | [place] | | | | | [address] | [address] | | | | | [phone] | | | +--------+ + + + [...] is seen on the MWF shift at [facility], [place], [place].he has been on or al antibiotics [...] CKD/MBD--treated with Velphoro, and Hectorol at the [facility], [place], [place]. I Outpatient Medications Marked as Taking for the 03/31/19 encounter (Off-Site Visit) with Naveen Orozco DO Medication Sig Dispense Refill apixaban (ELIQUIS) 5 mg tablet Take 2.5 mg by mouth 2 times daily. B Dqracdx-T-Nxvio Acid (OLEG-TEQUILA RX) 1 MG TABS Take [...] to titrate up the Hectorol per the [facility] PTH algorithm to target the PTH < 3 00 pg/ml. 2. His appetite appear to be improved. 3. BP and adequacy appear stable on his current Rx. 4. Will recheck his HbA1c, Fe profile, and PTH next month. : [facility] Toby Schuster HEIDI documented in thi [...]
--- OUTSIDE RECORDS SUMMARY | ~2020-03-04 | XMS | Encounter Summary ---
Demographics + + + | Address | [address] | | | [place] [address] | + + + | Home Phone | | + + + | Preferred Language | Unknown | + + + | Marital Status | | + + + | Worship Affiliation | 1041 | + + + | Race | Unknown | + + + | Ethnic Group | Unknown | + + + Author + + + | Author | [facility] | | | and Scarana | + + + | Organization | [facility] | | | and [place] | [...] Team Providers + +------+ + | Care Automotive Technology Instructor Name | Role | Phone | + [...] | | | Services | General | End stage | Artem I, | Artem I, | | | Required | Surgery | renal | MD, FACS | MD, FACS [address] | | | | | disease | [address] | [address] | | | | | (HCC) | [place] | [place], | | | | | Procedures | [place] | [place] [address] | | | | | [place] [address] | [address] | Phone: | | | | | ANAST,UP ARM | Phone: | [phone] | | | | | CEPHALIC | [phone] | Fax: | | | | | VEIN | Fax: | [phone] | | | | | TRANSPOSIT | [phone] | | +--------+ + + + + + Reason for Visit + + + | Reason | Comments | + + + | Follow-up | Possible revision of AV fistula | + + + Evaluate & Treat (Routine) +--------+--------+ + + + + | Status | Reason | Specialty | Diagnoses / | Referred By | Referred To | | | | | Procedures | Contact | Contact | +--------+--------+ + + + + | Closed | | Surgery / | Diagnoses | Stroemel, | , | | | | General | Possible | Uche Pena, | Artem Malik, | | | | Surgery | revision of | DO [address] | CAROLINE YOUNG [address] | | | | | AV fistula | [place], [place] | [address] | | | | | Procedures | [address] [place] | [place], | | | | | OFFICE VISIT | [facility], [place] | [place] [address] | | | | | | [address] | Phone: | | | | | EXTENDED/con | Phone: | [phone] | | | | | sult | [phone] | Fax: | | | | | | Fax: | [phone] | | | | | | [phone] | | +--------+--------+ + + + + Encounter Details +--------+---------+ + + + | Date | Type | Department | Care Team | Description | +--------+---------+ + + + | 10/21/ | Office | [facility] [place] [facility] | Artem Angelo | End stage renal | | 2013 | Visit | SURGERY [address] | I, MD, FACS [address] | disease (HCC) | | | | [place], [place] | [address] [place] | (Primary Dx); Type | | | | [address] | [place] [address] | II or unspecified | | | | [phone] | [phone] | type diabetes | | | | | | mellitus with renal | | | | | | manifestations, | | | | | | uncontrolled (HCC); | | | | | | Chest pain; | | | | | | Hepatitis C | +--------+---------+ + + + Social History [...] + + + | Blood Pressure | 152/68 | 10/21/2013 4:39 PM | | | | | PST | | + + + + + | Pulse | 71 | 10/21/2013 4:39 PM | | | | | PST | | + + + + + | Temperature | 36.7 C (98 F) | 10/21/2013 4:39 PM | | | | | PST | | + + + + + | Respiratory Rate | 20 | 10/21/2013 4:39 PM | | | | | PST | | + + + + + | Oxygen Saturation | 99% | 10/21/2013 4:39 PM | | | | | PST | | + + + + + | Inhaled Oxygen | - | - | | | Concentration | | | | + + + + + | Weight | 127.7 kg (281 lb 8 | 10/21/2013 4:39 PM | | | | oz) | PST | | + + + + + | Height | 185.4 cm (6' 1") | 10/21/2013 4:39 PM | | | | | PST | | + + + + + | Body Mass Index | 37.14 | 10/21/2013 4:39 PM | | | | | PST | | + + + + + documented in this encounter Progress Notes , Artem Malik MD - 10/21/2013 4:47 PM PST Patient Identification: CELSO HERNANDEZ CASE 1960 Is a 53 y.o. male , a patient of Deepali Obrien MD. Patient is here alone . S: Date of surgery 07/28/2013 . Title of surgery Left brachio-cephalic fistula . Physician notes: Patient notes they have used the left arm fistula only twice. Still like to use the Equi stream catheter. I have called [phone] and talked with nurse Coni. She confirms this. Also notes accessory veins is making dialysis Difficult. Patient denies left hand pains. Patient is dialyzed -W- in [place]. Past Medical History He has a past [...] includes the following prescription(s): aspirin, brenda rvastatin, oleg-conrado rx, calcium carbonate, vitamin d3, cinacalcet, diltiazem, doxercalcifer ol, epoetin padilla, furosemide, insulin glargine, iron sucrose, lisinopril, metoprolol, omepra zole, sevelamer carbonate, and sitagliptin. Outpatient Encounter Prescriptions as of 10/21/2013 Medication Sig Dispense Refill aspirin 81 mg EC tablet Take 81 mg by mouth Daily. atorvaSTATin (LIPITOR) 20 mg tablet Take 1 tablet by mouth Daily. 30 tablet 5 B Yakpfuo-X-Zvqiw Acid (OLEG-CONRADO RX) 1 MG TABS Take 1 mg [...] he does not use illicit drugs. PE: General: well developed, well nourished-obese, age appropriate in no acute distress Face: Symmetric, vision and hearing adequate. Neck: Carotid 2+ bilateral Heart: Normal sinus rate and rhythm, no murmurs Lungs: clear and equal bilateral. UE: LEFT upper arm with s-shaped cephalic vein. Good thrill present. Empties with arm gurmeet vated. Radial 2+. Neuro: Alert and oriented X3, moving all 4 extremities. Ultrasound 7-8 mm vein fistula with branch in proximal 4 cm. Mid-portion of vein is deep to skin . IMP: AV fistula deep, tortuous with high flow branch. P: Recommend translocation LEFT arm Cephalic vein fistula with ligation of branch vessel. Risks and possible complications including bleeding, infection, hand pain, failure for vein to dilate, MN stroke and was explained. No guarantees given or implied. Patient under stands and wishes to proceed. Artem Angelo MD, FACS Vascular and General Surgery documented in this encounter Plan of Treatment + +---------+--------+ + + | Name | Type | Priori | Associated Diagnoses | Order Schedule | | | | ty | | | + +---------+--------+ + + | XR Chest PA and | Imaging | Routin | Chest pain | Expected: | | Lateral | | e | | 10/22/2013, Expires: | | | | | | 10/22/2014 | + +---------+--------+ + + + + +--------+ + + | Name | Type | Priori | Associated Diagnoses | Order Schedule | | | | ty | | | + + +--------+ + + | Ambulatory referral | Outpatient | Routin | End stage renal | Ordered: 10/22/2013 | | to General Surgery | Referral | e | disease ([facility]) | | + + +--------+ + + documented as of this encounter Visit Diagnoses + + | Diagnosis | + + | End stage renal disease ([facility]) - Primary End stage renal disease | + + | Type II or unspecified type diabetes mellitus with renal manifestations, | | uncontrolled(250.42) ([facility]) Type II or unspecified type diabetes mellitus with renal | | manifestations, uncontrolled | + + | Chest pain Chest pain, unspecified | + + | Hepatitis C Unspecified viral hepatitis C without hepatic coma | + + documented in this encounter
--- OUTSIDE RECORDS SUMMARY | ~2020-03-04 | XMS | Encounter Summary ---
Demographics + + + | Address | [address] | | | [place] [address] | + + + | Home Phone | | + + + | Preferred Language | Unknown | + + + | Marital Status | | + + + | Jehovah'S Witness Affiliation | 1041 | + + + | Race | Unknown | + + + | Ethnic Group | Unknown | + + + Author + + + | Author | [facility] | | | and [place] | + + + | Organization | [facility] | [...] Team Providers + +------+ + | Care Comic Writer Name | Role | Phone | + [...] | renal | PA-C [address] | [address] | | | | | disease | [address] | [place], [place] | | | | | ([facility]) | [place] | [address] [facility] | | | | | Procedures | [address] | [place] | | | | | [place] ESRD | [place], | [address] Phone: | | | | | RELATED SVC | [place] | [phone] | | | | | MONTHLY | [address] | Fax: | | | | | 20&/> YR OLD | Phone: | [phone] | | | | | 4/> VISITS | [phone] | | | | | | dialysis | Fax: | | | | | | | [phone] | | + +--------+ + + + + Encounter Details +--------+ + + + + | Date | Type | Department | Care Team | Description | +--------+ + + + + | 02/03/ | Off-Site | [facility] [place] | Uche Orozco | End stage renal | | 2019 | Visit | NEPHROLOGY [address] | M, DO [address] | disease (HCC) | | | | [address] | [place], [place] [address] | (Primary Dx) | | | | [place], [place] | [place] | | | | | [address] | [address] | | | | | [phone] | | | +--------+ + + + [...] + + + | Blood Pressure | 129/76 | 02/04/2019 3:21 PM | | | | | PDT | | + + + + + | Pulse | - | - | | + + + + + | Temperature | 36.2 C (97.1 F) | 02/04/2019 3:21 PM | | | | | PDT [...] encounter Progress Notes Uche Orozco DO - 02/03/2019 9:15 AM PDT Subjective: [facility]ITA DIALYSIS NOTE Patient ID: Celso Caro is a 58 y.o. male. 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 He is seen on the MWF shift at [facility], [place], [place].he has been on or al antibiotics [...] CKD/MBD--treated with Velphoro, and Hectorol at the [facility], [place], [place]. I Outpatient Medications Marked as Taking for the 02/03/19 encounter (Off-Site Visit) with Naveen Orozco DO Medication Sig Dispense Refill amoxicillin-clavulanate (AUGMENTIN) 500-125 mg per tablet Take 1.5 tablets by mouth Monalisa ly. Indications: Infection Under the Skin 35 tablet 0 apixaban (ELIQUIS) 5 mg tablet Take 2.5 mg by mouth 2 times daily. B Bjpjuxv-B-Nnwvt Acid (OLEG-TEQUILA RX) 1 MG TABS Take 1 mg by mouth Daily. 30 each 11 Cholecalciferol (VITAMIN D3) 5000 UNITS CAPS Take 5,000 Units by mouth Daily. cinacalcet (SENSIPAR) 60 MG tablet Take 1 tablet by mouth Daily. 30 tablet doxercalciferol (HECTOROL) 2 mcg/mL injection Inject 10 mcg into the vein Three times a week. epoetin padilla (EPOGEN, PROCRIT) 10,000 units/mL injection Inject 3,400 Units into the ve in Three times a week. furosemide (LASIX) 80 mg tablet Take 80 mg by mouth Daily. [DISCONTINUED] ibuprofen (ADVIL, MOTRIN) 200 mg tablet Take 400 mg by mouth Twice tish y as needed for Pain. insulin glargine (LANTUS) 100 units/mL injection (vial) [...] Unknown Fenofibrate Acidosis Metformin Diarrhea Objective: BP 129/76 | Temp 36.2 C (97.1 F) EDW 119 kg Physical Exam Heart: Regular rate and rhythm with no S3, S4, murmur or rub. Lungs: CTA in all valle. No rales or wheezes. Abdomen: Soft, flat, nontender, normoactive bowel sounds. Extremities: 1+ edema, no rash, AVF at left arm is clear and dry. LAB: BUN 56, Cr 7.97, K+ 4.7, HCO3 27, albumin 3.9, Ca++ 8.7, P04 7.0, PTH 523, Hb 11.0, (T Sat, ferritin not listed), spKT/V = 1.67. Assessment: 1. ESRD--he appears well dialyzed by the most recent KT/V. 2. Hypertension--good control from review of his treatment data and avendaño. 3. Anemia secondary to CKD--Hb is within target. Need to repeat his transferrin saturatio n and ferritin to assess his iron stores? 4. Nutrition--he states that his appetite is good, and his serum albumin is stable. 5. 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 However his PTH is improved from last month. 6. Type 2 DM--he does not return with any home glucose log. Need to repeat his formal HbA 1c? 7. Hepatitis C--historically in remission. 8. Hyperlipidemia--on statin Rx. 9. Transplantation--this will need to be on hold until his foot infection is cleared up. He appears to understand this. 10. Deep seated infection with osteomyelitis, left foot, s/p I&D 09/07/2018--improving wit h time. Plan: 1. Need to reorder transferrin saturation, ferritin, and HbA1c. 2. Monthly labs reviewed with the patient. 3. He appears to be doing better with his intradialytic fluid gains. 4. I greatly appreciate Dr. Schuster's close follow-up of his deep-seated infection in his r ight foot. He will be rechecked in 2 weeks. : [facility] Toby Schuster DPM documented in thi [...]
--- OUTSIDE RECORDS SUMMARY | ~2020-03-04 | XMS | Encounter Summary ---
Demographics + + + | Address | [address] | | | [place] [address] | + + + | Home Phone [...] | Author | [facility] | | | and [place] | + + + | Organization | [facility] | | | [...] Team Providers + +------+ + | Care Textiles Printer Name | Role | Phone | + +------+ + PCP | Unavailable | + +------+ + Reason for Visit +--------+ + | Reason | Comments | +--------+ + | Other | | +--------+ + Encounter Details +--------+ + + + + | Date | Type | Department | Care Team | Description | +--------+ + + + + | 06/03/ | Telephone | [facility] [place] | [place], | Other | | 2012 | | NEPHROLOGY [address] | [place] [address] | | | | | [address] | [address], [place] | | | | | [place] | [address] [place] | | | | | [address] | [address] | | | | | [phone] | | | +--------+ + + + [...]
--- OUTSIDE RECORDS SUMMARY | ~2020-03-04 | XMS | Encounter Summary ---
Demographics + + + | Address | [address] | | | [place] [address] | + + + | Home Phone | | + + + | Preferred Language | Unknown | + + + | Marital Status | | + + + | Druze Affiliation | 1041 | + + + | Race | Unknown | + + + | Ethnic Group | Unknown | + + + Author + + + | Author | [facility] | | | and [place] | + + + | Organization | [facility] | [...] Team Providers + +------+ + | Care Top Installer Name | Role | Phone | + +------+ + PCP | Unavailable | + +------+ + Reason for Visit + + + | Reason | Comments | + + + | Appointment | | + + + Encounter Details +--------+ + + + + | Date | Type | Department | Care Team | Description | +--------+ + + + + | 06/25/ | Telephone | [facility] [place] | [place], | Appointment | | 2012 | | NEPHROLOGY [address] | [address] | | | | | [address] | [address], [place] | | | | | [place], [place] | [address] [place], [place] | | | | | [address] | [address] | | | | | [phone] | | | +--------+ + + + [...]
--- OUTSIDE RECORDS SUMMARY | ~2020-03-04 | XMS | Encounter Summary ---
Demographics + + + | Address | [address] | | | [place] [address] | + + + | Home Phone | | + + + | Preferred Language | Unknown | + + + | Marital Status | | + + + | Protestant Affiliation | 1041 | + + + | Race | Unknown | + + + | Ethnic Group | Unknown | + + + Author + + + | Author | [facility] | | | and [place] | + + + | Organization | [facility] | | | and [place] [...] Team Providers + +------+ + | Care Fbi Investigator Name | Role | Phone | + [...] | | | disease | [address] | [place], [place] | | | | | ([facility]) | [place] | [address] | | | | | Procedures | [address] | [place] | | | | | DC OFFICE | [facility] | [address] Phone: | | | | | OUTPATIENT | [place] | [phone] | | | | | VISIT 25 | [address] | Fax: | | | | | MINUTES | Phone: | [phone] | | | | | dialysis | [phone] | | | | | | | Fax: | | | | | | | [phone] | | +--------+--------+ + + + + Encounter Details +--------+ + + + + | Date | Type | Department | Care Team | Description | +--------+ + + + + | 08/28/ | Off-Site | [facility] [place] | Uche Orozco | End stage renal | | 2016 | Visit | NEPHROLOGY [address] | M, DO [address] | disease (HCC) | | | | [address] | [place], [place] | (Primary Dx) | | | | [place] | [place] | | | | | [address] | [address] | | | | | [phone] | | | +--------+ + + + [...] + + + | Blood Pressure | 155/79 | 08/28/2016 12:13 PM | | | | | PST | | + + + + + | Pulse | - | - | | + + + + + | Temperature | 36.5 C (97.7 F) | 08/28/2016 12:13 PM | | | | | PST [...] encounter Progress Notes Uche Orozco DO - 09/19/2016 12:15 PM PST Subjective: [facility] DIALYSIS NOTE Patient ID: Celso Caro is a 56 y.o. male. HPI Comments: Monthly dialysis visit for this 56 YO male with ESRD secondar y to diabetic nephropathy, who is seen on outpatient HD, at the [facility], [place] . He also has T2DM, requiring insulin, anemia secondary to CKD, hyperlipidemia, and Hepatit is C. He denies cramps, peripheral edema, dyspnea or anorexia. 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 H e appears to be doing better on his fluid restriction. Outpatient Prescriptions Marked as Taking for the 08/28/16 encounter (Off-Site Visit) with Uche Orozco DO Medication Sig Dispense Refill aspirin 81 mg EC tablet Take 81 mg by mouth Daily. atorvaSTATin (LIPITOR) 20 mg tablet Take 1 tablet by mouth Daily. 30 tablet 5 B Dzyeppw-A-Wyofg Acid (OLEG-TEQUILA RX) 1 MG TABS Take 1 mg by mouth Daily. 30 each 11 Cholecalciferol (VITAMIN D3) 5000 UNITS CAPS Take 2,000 Units by mouth Daily. cinacalcet (SENSIPAR) 30 mg tablet Take 1 tablet by mouth Daily. 90 tablet 4 doxercalciferol (HECTOROL) 2 mcg/mL injection Inject 3 mcg into the vein Three times a week. epoetin padilla (EPOGEN,PROCRIT) 3,000 units/mL injection Inject 3,000 Units under the ski n Three times a week. furosemide (LASIX) 40 [...] Besylate Unknown Metformin Diarrhea Objective: Blood pressure 155/79, temperature 36.5 C (97.7 F). EDW 122 kg Physical Exam Heart: Regular rate and rhythm with no S3, S4, murmur or rub. Lungs: CTA bilaterally. No rales or wheezes. Abdomen: Soft, flat, nontender, normoactive bowel sounds. Extremities: No clubbing, cyanosis, or edema. LAB: BUN 61, Cr 12.9, K+ 5.1, HCO3 24, Ca++ 8.1, PO4 9.3, albumin 3.6, PTH 958, Hb 10.8, T Sat = 26%, ferritin 818, eKT/V = 1.33. Assessment: 1. ESRD--he appears well dialyzed by the most recent eKT/V. 2. Hypertension--good control at his current dry weight. 3. Anemia secondary to CKD--his hemoglobin appears stable on the Davita anemia algorithm. His iron stores appear adequate. 4. SHPTH--phosphorus control is trending upward slightly. I reviewed with Herman barrett o f a <1000 mg PO4 restriction. 5. Nutrition--his appetite is excellent. 6. Type 2 DM--unable to locate the most recent HbA1c. Will reorder this if not able to fi nd it. 7. Hepatitis C--transaminases have been stable . 8. Hyperlipidemia--Will recheck the lipid profile next quarter. 9. Transplantation--work up in progress. Plan: 1. His adequacy, nutrition appear stable on his current Rx, thrice weekly. 2. I reviewed with Herman to take his [place] exactly AC&HS. 3. He appears to attend all prescribed treatments weekly. 4. Will recheck him in 2 weeks. : [facility] Electronically signed by Uche Orozco DO at 1 11/20/2015 12:21 PM PSTdocumented in this encounter Plan of Treatment Not on filedocumented as of this encounter Visit Diagnoses + + | Diagnosis | + + | End stage renal disease (HCC) - Primary End stage renal disease | + + documented in this encounter"
--- OUTSIDE RECORDS SUMMARY | ~2020-03-04 | XMS | Encounter Summary ---
Demographics + + + | Address | [address] | | | [place] [address] | + + + | Home Phone [...] Organization | [facility] [...] Team Providers + +------+ + | Care Info Print Press Operator Name | Role | Phone | + +------+ + PCP | Unavailable | + +------+ + Encounter Details +--------+ + + + + | Date | Type | Department | Care Team | Description | +--------+ + + + + | 11/06/ | Hospital | [facility] | Artem Angelo | | | 2013 - | Encounter | MED CTR MP INTRA OP | MD [place], FACS [address] | | | | | [address] | [facility] | | | 11/07/ | | [place] | [place] [address] | | | 2013 | | [address] | [phone] | | | | | [phone] | | | +--------+ + + + [...] + + +---------+ + + | B Nifbrzn-G-Rqiuk | Take 1 mg by mouth | [...] mg by mouth | | 0 | 09/22/20 | | | (SENSIPAR) 30 mg | Three times a week. | | | 13 | 4 | | tablet | | | | | | + + + +---------+ + + | cinacalcet | Take 1 tablet by | 90 | 4 | 09/22/20 | | | (SENSIPAR) 30 mg | mouth Daily. | tablet | | 13 | 4 | | tablet | | | | [...] + | POC GLUCOSE | Routin | 11/07/2013 | | Results for this | | | e | 8:05 AM | | procedure are in the | | | | PST | | results section. | + +--------+ + + + | POC GLUCOSE | Routin | 11/06/2013 | | Results for this | | | e | 9:05 PM | | procedure are in the | | | | PST | | results section. | + +--------+ + + + | POC GLUCOSE | Routin | 11/06/2013 | | Results for this | | | e | 5:53 PM | | procedure are in the | | | | PST | | results section. | + +--------+ + + + | POC GLUCOSE | Routin | 11/06/2013 | | Results for this | | | e | 5:49 PM | | procedure are in the | | | | PST | | results section. | + +--------+ + + + | POC GLUCOSE | Routin | 11/06/2013 | | Results for this | | | e | 5:00 PM | | procedure are in the | | | | PST | | results section. | + +--------+ + + + | POC GLUCOSE | Routin | 11/06/2013 | | Results for this | | | e | 4:46 PM | | procedure are in the | | | | PST | | results section. | + +--------+ + + + | POC GLUCOSE | Routin | 11/06/2013 | | Results for this | | | e | 1:07 PM | | procedure are in the | | | | PST | | results section. | + +--------+ + + + | POC GLUCOSE | Routin | 11/06/2013 | | Results for this | | | e | 1:03 PM | | procedure are in the | | | | PST | | results section. | + +--------+ + + + | POC GLUCOSE | Routin | 11/06/2013 | | Results for this | | | e | 11:50 AM | | procedure are in the | | | | PST | | results section. | + +--------+ + + + | POC GLUCOSE | Routin | 11/06/2013 | | Results for this | | | e | 11:46 AM | | procedure are in the | | | | PST | | results section. | + +--------+ + + + | POTASSIUM | Routin | 11/06/2013 | | Results for this | | | e | 11:31 AM | | procedure are in the | | | | PST | | results section. | + +--------+ + + + | POTASSIUM | Routin | 11/06/2013 | | Results for this | | | e | 11:29 AM | | procedure are in the | | | | PST | | results section. | + +--------+ + + + | POC GLUCOSE | Routin | 11/06/2013 | | Results for this | | | e | 11:25 AM | | procedure are in the | | | | PST | | results section. | + +--------+ + + + | POC GLUCOSE | Routin | 11/06/2013 | | Results for this | | | e | 11:03 AM | | procedure are in the | | | | PST | | results section. | + +--------+ + + + documented in this encounter Results POC Glucose (11/07/2013 8:05 AM PST) + +---------+ + + + | Component | Value | Ref Range | Performed | Pathologist | | | | | At | Signature | + +---------+ + + + | Glucose, | 402 (H) | 79 - 150 md/dL | [...] + | [facility] | [address] | [place], [place] | [phone] | | [facility] | | [address] | | | - LABORATORY | | | | + + + + + | [facility] | [address] | [place], [place] | | | [facility] | | [address] [place] [address] | | | - LABORATORY | | | | + + + + + POC Glucose (11/06/2013 9:05 PM PST) + +---------+ + + + | Component | Value | Ref Range | Performed | Pathologist | | | | | At | Signature | + +---------+ + + + | Glucose, | 303 (H) | 79 - 150 md/dL | [...] + | [facility] | [address] | [place] | [phone] | | [facility] | | [address] | | | - LABORATORY | | | | + + + + + | [facility] | [address] | [place] | | | [facility] | | [address] | | | - LABORATORY | | | | + + + + + POC Glucose (11/06/2013 5:53 PM PST) + +---------+ + + + | Component | Value | Ref Range | Performed | Pathologist | | | | | At | Signature | + +---------+ + + + | Glucose, | 266 (H) | 79 - 150 md/dL | [facility] | | | POC | | | [facility] | | | | | | MEDICAL [...] + | [facility] | [address] | [place], [place] | [phone] | | [facility] | | [address] | | | - LABORATORY | | | | + + + + + | [facility] | [address] | [place], [place] | | | [facility] | | [id number] | | | - LABORATORY | | | | + + + + + POC Glucose (11/06/2013 5:49 PM PST) + +---------+ + + + | Component | Value | Ref Range | Performed | Pathologist | | | | | At | Signature | + +---------+ + + + | Glucose, | 266 (H) | 79 - 150 md/dL | [...] + | [facility] | [address] | [place], [place] | [phone] | | [facility] | | [address] | | | - LABORATORY | | | | + + + + + | [facility] | [address] | [place], [place] | | | [facility] | | [address] | | | - LABORATORY | | | | + + + + + POC Glucose (11/06/2013 5:00 PM PST) + +---------+ + + + | Component | Value | Ref Range | Performed | Pathologist | | | | | At | Signature | + +---------+ + + + | Glucose, | 243 (H) | 79 - 150 md/dL | [...] St | [place] | [phone] | | [facility] | | [address] | | | - LABORATORY | | | | + + + + + | [facility] | [address] | [place] | | | [facility] | | [address], [facility] | | | - LABORATORY | | | | + + + + + POC Glucose (11/06/2013 4:46 PM PST) + +---------+ + + + | Component | Value | Ref Range | Performed | Pathologist | | | | | At | Signature | + +---------+ + + + | Glucose, | 243 (H) | 79 - 150 md/dL | [...] + | [facility] | [address] | [place] | [phone] | | [facility] | | [address] | | | - LABORATORY | | | | + + + + + | [facility] | [address] | [place], [place] | | | [facility] | | [address] | | | - LABORATORY | | | | + + + + + POC Glucose (11/06/2013 1:07 PM PST) + +-------+ + + + | Component | Value | Ref Range | Performed | Pathologist | | | | | At | Signature | + +-------+ + + + | Glucose, | 131 | 79 - 150 md/dL | [facility] [address] [facility] | [place] | [phone] | | [facility] | | [address] | | | - LABORATORY | | | | + + + + + | [facility] | [address] | [place] | | | [facility] | | [address] | | | - LABORATORY | | | | + + + + + POC Glucose (11/06/2013 1:03 PM PST) + +-------+ + + + | Component | Value | Ref Range | Performed | Pathologist | | | | | At | Signature | + +-------+ + + + | Glucose, | 131 | 79 - 150 md/dL | [facility] [...] + | [facility] | [address] | [place] | [phone] | | [facility] | | [address] | | | - LABORATORY | | | | + + + + + | [facility] | [address] | [place], [place] | | | [facility] | | [address], [facility] | | | - LABORATORY | | | | + + + + + POC Glucose (11/06/2013 11:50 AM PST) + +---------+ + + + | Component | Value | Ref Range | Performed | Pathologist | | | | | At | Signature | + +---------+ + + + | Glucose, | 255 (H) | 79 - 150 md/dL | [...] + | [facility] | [address] | [place] | [phone] | | [facility] | | [address] | | | - LABORATORY | | | | + + + + + | [facility] | [address] | [place] | | | [facility] | | [address], [facility] | | | - LABORATORY | | | | + + + + + POC Glucose (11/06/2013 11:46 AM PST) + +---------+ + + + | Component | Value | Ref Range | Performed | Pathologist | | | | | At | Signature | + +---------+ + + + | Glucose, | 255 (H) | 79 - 150 md/dL | [...] + | [facility] | [address] | [place], [place] | [phone] | | [facility] | | [address] | | | - LABORATORY | | | | + + + + + | [facility] | [address] | [place], [place] | | | [facility] | | [id number] [place] [address] | | | - LABORATORY | | | | + + + + + Potassium (11/06/2013 11:31 AM PST) + +---------+ + + + | Component | Value | Ref Range | Performed | Pathologist | | | | | At | Signature | + +---------+ + + + | K | 3.4 (L) | 3.5 - 5.1 mEq/l | [facility] [...] + | [facility] | [address] | [place] | [phone] | | [facility] | | [address] | | | - LABORATORY | | | | + + + + + | [facility] | [address] | [place] | | | [facility] | | [address] | | | - LABORATORY | | | | + + + + + Potassium (11/06/2013 11:29 AM PST) + +---------+ + + + | Component | Value | Ref Range | Performed | Pathologist | | | | | At | Signature | + +---------+ + + + | K | 3.4 (L) | 3.5 - 5.1 mEq/l | [facility] [...] | + + + | Collect By: Lab | [facility] | | | [facility] | | | [facility] | | | - LABORATORY | + + + + + + + + | Performing | Address | City/State/Zipcode | Phone Number | | Organization | | | | + + + + + | [facility] | [address] | [place] | [phone] | | [facility] | | [address] | | | - LABORATORY | | | | + + + + + | [facility] | [address] | [place] | | | [facility] | | [address], [facility] | | | - LABORATORY | | | | + + + + + POC Glucose (11/06/2013 11:25 AM PST) + +---------+ + + + | Component | Value | Ref Range | Performed | Pathologist | | | | | At | Signature | + +---------+ + + + | Glucose, | 380 (H) | 79 - 150 md/dL | [...] + | [facility] | [address] | [place], [place] | [phone] | | [facility] | | [address] | | | - LABORATORY | | | | + + + + + | [facility] | [address] | [place], [place] | | | [facility] | | [id number] [place] [address] | | | - LABORATORY | | | | + + + + + POC Glucose (11/06/2013 11:03 AM PST) + +---------+ + + + | Component | Value | Ref Range | Performed | Pathologist | | | | | At | Signature | + +---------+ + + + | Glucose, | 380 (H) | 79 - 150 md/dL | [...] + | [facility] | [address] | [place] | [phone] | | [facility] | | [address] | | | - LABORATORY | | | | + + + + + | [facility] | [address] | [place] | | | [facility] | | [address] [place] [address] | | | - LABORATORY | | | | + + + + + documented in this encounter Visit Diagnoses Not on filedocumented in this encounter"
--- OUTSIDE RECORDS SUMMARY | ~2020-03-04 | XMS | Encounter Summary ---
Demographics + + + | Address | [address] | | | [place] [address] | + + + | Home Phone | | + + + | Preferred Language | Unknown | + + + | Marital Status | | + + + | Samaritan Affiliation | 1041 | + + + | Race | Unknown | + + + | Ethnic Group | Unknown | + + + Author + + + | Author | [facility]erg[facility] | | | and [place] | + + + | Organization | [facility]erg[facility] | [...] Team Providers + +------+ + | Care Care Advocate Name | Role | Phone | + +------+ + PCP | Unavailable | + +------+ + Encounter Details +--------+ + + + + | Date | Type | Department | Care Team | Description | +--------+ + + + + | 02/17/ | Abstract | [facility] [place] | [facility], | | | 2015 | | GASTROENTEROLOGY | [place] [address] [address] | | | | | [address] [place] | [place], [place] [address] | | | | | [address] [place] | [place] | | | | | [address] | [id number] | | | | | [phone] | | | +--------+ + + + [...] + | CBC WITH | Routin | 02/17/2015 | | Results for this | | DIFFERENTIAL | e | | | procedure are in the | | | | | | results section. | + +--------+ + + + | HEPATITIS A, B, C | Routin | 06/25/2013 | | Results for this | | PANEL, REFLEX | e | 8:15 AM | | procedure are in the | | | | PDT | | results section. | + +--------+ + + + documented in this encounter Results CBC with Differential (02/17/2015) + + | Specimen | + + | | + + + + + | Impressions | Performed At | + + + | Entered in error | | + + + Hepatitis A, B, C Panel, Reflex (06/25/2013 8:15 AM PDT) + + + + + + | Component | Value | Ref Range | Performed | Pathologist | | | | | At | Signature | + + + + + + | HCV Ab | Positive | | | | + + + + + + | Signal/Cuto | 26.1 | | | | | ff | | | | | + + + + + + | HEP B CORE | Negative | | | | | IgM | | | | | + + + + + + | Hepatitis B | Negative | | | | | Surface | | | | | | Ag, | | | | | | External | | | | | + + + + + + | HEP B | Negative | | | | | SURFACE | | | | | | ANTIBODY | | | | | + + + + + + + + | Specimen | + + | Blood specimen | | (specimen) | + + documented in this encounter Visit Diagnoses Not on filedocumented in this encounter"
--- OUTSIDE RECORDS SUMMARY | ~2020-03-04 | XMS | Encounter Summary ---
Demographics + + + | Address | [address] | | | [place] [address] | + + + | Home Phone [...] Organization | [facility] | | | and [place] | + [...] Team Providers + +------+ + | Care Gunnery/Ordnance Officer Name | Role | Phone | [...] Right renal | Lexi W, | [address] | | | | | mass | MD [address] | [place], | | | | | Procedures | [address] [place] | [place] [address] | | | | | CT Abdomen | [address] [place] | Phone: | | | | | Pelvis w | [place], [place] | [phone] | | | | | Contrast | [address] | Fax: | | | | | 05/08>PEND | Phone: | [phone] | | | | | [place] | [phone] | | | | | | [place] | Fax: | | | | | | | [phone] | | +--------+--------+ + + + + [...] Right renal | Lexi W, | [address] | | | | | mass | MD [address] | [place], | | | | | Procedures | [address] [place] | [place] [address] | | | | | CT Abdomen | [address] [place] | Phone: | | | | | Pelvis w | [place] | [phone] | | | | | Contrast | [address] | Fax: | | | | | 05/08>PEND | Phone: | [phone] | | | | | [place] | [phone] | | | | | | [place] | Fax: | | | | | | | [phone] | | +--------+--------+ + + + + Encounter Details +--------+ + + + + | Date | Type | Department | Care Team | Description | +--------+ + + + + | 05/13/ | Hospital | [facility] | Lexi Kuo W, | Right renal mass | | 2013 | Encounter | MED CTR [address] | [address] | | | | | [address], | [place] [address] [place] | | | | | [place] [address] | [place] [address] | | | | | [phone] | [phone] | | | | | | | [...] + + +---------+ + + | B Ppakilt-C-Scbgz | Take 1 mg by mouth | [...] + | MISCELLANEOUS LAB | | | [phone] | + +---------+ + + | MISCELANIOUS LAB | | | [phone] | + +---------+ + + documented in [...]
--- OUTSIDE RECORDS SUMMARY | ~2020-03-04 | XMS | Encounter Summary ---
Demographics + + + | Address | [address] | | | [place] [address] | + + + | Home Phone | | + + + | Preferred Language | Unknown | + + + | Marital Status | | + + + | Restorationist Affiliation | 1041 | + + + | Race | Unknown | + + + | Ethnic Group | Unknown | + + + Author + + + | Author | [facility] | | | and [place] | + + + | Organization | [facility] | | | and [...] Providers + +------+ + | Care Director Business Intelligence Name | Role | Phone | + [...] + + + + | 10/17/ | Documentati | [facility] | Kuo, Lexi W, | Dialysis | | 2014 | on | NEPHROLOGY [address] | MD [address] | (Asymptomatic) | | | | [address] | [place] [address] [place] | | | | | [place], [place] | [place] [address] | | | | | [address] | [phone] | | | | | [phone] | | | +--------+ + + + [...] this encounter Progress Notes Dedra Camara - 10/17/2013 12:41 PM PSTHEMO progress note manually faxed to [facility] in [place], [place] and e-faxed to Frances Obrien MD on 10/17/13. Lexi Cool MD - 10/17/2013 12:00 PM PS T Comprehensive Dialysis Monthly Note Date of visit: 10/17/2013 Dialysis Clinic: [facility] Mode of dialysis: Hemodialysis Dialysis prescription: MWF, t=4.5 hr, Gambro Polyflux 21R, Na 138, K 2, Ca 2.5, bicarb 37, BFR 400, EDW 127 kg Access: R IJ permacath, Left brachial-cephalic AVF created on 07/28/13 HPI: CELSO CARO is a 53 y.o. male with ESRD secondary to diabetic nephropathy. His co- morbidities include type 2 IDDM, hyperlipidemia, hepatitis C, morbid obesity. Pt initiated h emodialysis in Jun 2013. Pt underwent creation of left brachial-cephalic AVF on 07/28/[address] Angelo. Pt reports feeling well. He reports no problems with dialysis treatments. Unfortunately, his LUE AVF is not functioning well; he is having elevated venous pressure and infiltration with increasing BFR. Dialysis staff is noting prominent accessory veins overlying his AVF. Pt denies shortness of breath, chest pain, abdominal pain, edema, frequent cramping. Pt re ports he is still urinating. PMH: Patient Active Problem List Diagnosis Date Noted Unspecified hypertensive kidney disease with chronic kidney disease stage I through sta ge IV, or unspecified 09/22/2013 End stage renal disease 08/07/2013 Peritoneal dialysis [...] Outpatient Prescriptions Marked as Taking for the 10/17/13 encounter (Documentation) with Chris Kuo MD Medication Sig Dispense Refill aspirin 81 mg EC tablet Take 81 mg by mouth Daily. atorvaSTATin (LIPITOR) 20 mg tablet Take 1 tablet by mouth Daily. 30 tablet 5 B Ynzqxel-L-Plhmf Acid (OLEG-TEQUILA RX) 1 MG TABS Take [...] 25 mg by mouth Daily. EXAM: T 96.0, HR 60, BP 157/84, pre weight 128.8 kg, gain 1.4 kg Constitutional: No distress. Flat affect. Cardiovascular: Normal rate, regular rhythm and normal heart sounds. No peripheral edema. Lungs: Respiratory effort normal and breath sounds normal. No crackles or wheezes. Abdominal: Soft. Bowel sounds are normal. No distension or tenderness. Musculoskeletal: No muscle tenderness. Neurological: Alert. Dialysis Access: R IJ permacath with BFR 400 mL/min. LUE AVF is patent, prominent superfic ial veins. DIALYSIS LABS: Hemoglobin 11.1 / WBC 8.3 / PLT 261 Sodium 136 / Potassium 4.8 / Chloride 103 / Bicarb 23 / Creatinine 7.55 / BUN 72 Albumin 3.5 / Calcium 8.0 / Phosphate 5.0 / PTH 454 (down from 641) SpKt/V 1.22 / eKt/V 1.07 / URR 67% ASSESSMENT AND PLAN: 1. ESRD: Kt/V is not yet at goal. Dialysis time has been increased to 4.5 hr already. Antic ipate improvement in clearance once pt is dialyzing via AVF. See #2. 2. Access: Currently on R IJ permacath. AVF is well-matured, but appears to have developed some parasitic veins. Staff is unable to increase BFR due to infiltration and elevation is venous pressure. Arterial is not a problem. -will have pt return to Dr. Angelo for assessment of AVF; may need parasitic veins ligated 3. HTN/volume: Clinic BP is stable. Challenging EDW. 4. Anemia due to ESRD: Hb at goal. Off Epogen. On maintenance Venofer. 5. Secondary hyperparathyroidism / mineral bone disease: PTH is improved since starting vasiliy acalcet; however, his hypocalcemia is worse. -start TUMS 500 mg at bedtime -ok to continue Cinacalcet for now; pt is on vit D 5000 Units/d, and Hectoral 7 mcg IV thr ee times a week 6. Acid-base: Serum bicarb is normal. 7. Nutrition: On Liquacel supplementation. 8. Transplantation: Pt needs to optimize health; demonstrate participation and compliance w [facility] medical care. 9. DM type 2: On [...] unspecified | + + | Anemia in CKD (chronic kidney disease) Anemia in chronic kidney disease | + + | Secondary hyperparathyroidism (of renal origin) | + + documented in this encounter"
--- OUTSIDE RECORDS SUMMARY | ~2020-03-04 | XMS | Encounter Summary ---
Demographics + + + | Address | [address] | | | [place] [address] | + + + | Home Phone | | + + + | Preferred Language | Unknown | + + + | Marital Status | | + + + | Buddhism Affiliation | 1041 | + + + | Race | Unknown | + + + | Ethnic Group | Unknown | + + + Author + + + | Author | [facility] | | | and [place] | + + + | Organization | [facility] | | | and [place] [...] Team Providers + +------+ + | Care Consulting Database Administrator Name | Role | Phone | + +------+ + PCP | Unavailable | + +------+ + Encounter Details +--------+ + + + + | Date | Type | Department | Care Team | Description | +--------+ + + + + | 11/07/ | Abstract | [facility] [place] | [facility], | | | 2012 | | NEPHROLOGY [address] | Sarai [place]sei, [address] | | | | | [address] | [address], [place] | | | | | [place] | [address] [place] | | | | | [address] | [address] | | | | | [phone] | | | +--------+ + + + [...]
--- OUTSIDE RECORDS SUMMARY | ~2020-03-04 | XMS | Encounter Summary ---
Demographics + + + | Address | [address] | | | [place] [address] | + + + | Home Phone [...] | Organization | [facility] | | | and [place] [...] Team Providers + +------+ + | Care Phone Representative Name | Role | Phone | + +------+ + PCP | Unavailable | + +------+ + Encounter Details +--------+ + + + + | Date | Type | Department | Care Team | Description | +--------+ + + + + | 05/15/ | Abstract | [facility] [place] | Uche Orozco | | | 2019 | | NEPHROLOGY [address] | M, DO [address] | | | | | [address] | [place], [place] | | | | | [place] | [place] | | | | | [address] | [address] | | | | | [phone] | | | +--------+ + + + [...] + | EXTERNAL LAB: | Routin | 05/14/2019 | | Results for this | | POTASSIUM | e | | | procedure are in the | | | | | | results section. | + +--------+ + + + documented in this encounter Results External Lab: Potassium (05/14/2019) + +-------+ + + + | Component | Value | Ref Range | Performed | Pathologist | | | | | At | Signature | + +-------+ + + + | Potassium, | 5.4 | | EXTERNAL | | | External | | | LAB | | + +-------+ + + + + +---------+ + + [...]
--- OUTSIDE RECORDS SUMMARY | ~2020-03-04 | XMS | Encounter Summary ---
Demographics + + + | Address | [address] | | | [place] [address] | + + + | Home Phone [...] Organization | [facility] | | [...] Team Providers + +------+ + | Care Neurophysiological Technician Name | Role | Phone | + +------+ + PCP | Unavailable | + +------+ + Encounter Details +--------+ + + + + | Date | Type | Department | Care Team | Description | +--------+ + + + + | 09/22/ | Orders Only | [facility] [place] | Uche Orozco | | | 2012 | | NEPHROLOGY [address] | M, DO [address] | | | | | [address] | [place], [place] [address] | | | | | [place] | [place] | | | | | [address] | [id number] | | | | | [phone] | | | +--------+ + + + [...]
--- OUTSIDE RECORDS SUMMARY | ~2020-03-04 | XMS | Encounter Summary ---
Demographics + + + | Address | [address] | | | [place] [address] | + + + | Home Phone | | + + + | Preferred Language | Unknown | + + + | Marital Status | | + + + | Oriental Orthodox Affiliation | 1041 | + + + | Race | Unknown | + + + | Ethnic Group | Unknown | + + + Author + + + | Author | [facility] | | | and Scarana | + + + | Organization | [facility] | [...] Team Providers + +------+ + | Care Microwave Supervisor Name | Role | Phone | + +------+ + PCP | Unavailable | + +------+ + Encounter Details +--------+ + + + + | Date | Type | Department | Care Team | Description | +--------+ + + + + | 02/17/ | Abstract | [facility] [place] | [facility], | | | 2015 | | GASTROENTEROLOGY | TERRY Howell [address] | | | | | [address] | [place], [address] | | | | | [address] [place] [address] | [place] | | | | | [address] | [id number] | | | | | [phone] | | | +--------+ + + + [...]
--- OUTSIDE RECORDS SUMMARY | ~2020-03-04 | XMS | Encounter Summary ---
Demographics + + + | Address | [address] | | | [place] [address] | + + + | Home Phone | | + + + | Preferred Language | Unknown | + + + | Marital Status | | + + + | Church Affiliation | 1041 | + + + | Race | Unknown | + + + | Ethnic Group | Unknown | + + + Author + + + | Author | [facility] | | | and Scarana | + + + | Organization | [facility] | | [...] Providers + +------+ + | Care Machine Packaging Technician Name | Role | Phone | + +------+ + PCP | Unavailable | + +------+ + Encounter Details +--------+ + + + + | Date | Type | Department | Care Team | Description | +--------+ + + + + | 01/19/ | Documentati | [facility] [place] | Uche Orozco | | | 2013 | on | NEPHROLOGY [address] | M, DO [address] | | | | | [address] | [place], [address] | | | | | [place] | [place] | | | | | [address] | [address] | | | | | [phone] | | | +--------+ + + + [...] + + + | Blood Pressure | 144/77 | 01/19/2014 9:29 AM | | | | | PDT | | + + + + + | Pulse | - | - | | + + + + + | Temperature | 36.7 C (98 F) | 01/19/2014 9:29 AM | | | | | [...] encounter Progress Notes Uche Orozco DO - 03/03/2014 9:30 AM PDT Subjective: [facility] DIALYSIS NOTE Patient ID: CELSO CARO is a 54 y.o. male. HPI Comments: Monthly dialysis visit for this 53 YO male with ESRD secondar y to diabetic nephropathy, who is seen on outpatient HD at the [facility]. He also has T2DM, requiring insulin, anemia secondary to CKD, hyperlipidemia, Hepatitis C, m orbid obesity and a question of a right renal mass on prior US. He denies dyspnea or anorexi a; Outpatient Prescriptions Marked as Taking for the 01/19/14 encounter (Documentation) with Shaji Orozco DO Medication Sig Dispense Refill aspirin 81 mg EC tablet Take 81 mg by mouth Daily. atorvaSTATin (LIPITOR) 20 mg tablet Take 1 tablet by mouth Daily. 30 tablet 5 B Zmmgbbk-Q-Zgipe Acid (OLEG-TEQUILA RX) 1 MG TABS Take [...] Daily. doxercalciferol (HECTOROL) 4 MCG/2ML injection Inject 4 mcg into the vein Three [...] Diarrhea Review of Systems Objective: Blood pressure 144/77, temperature 36.7 C (98 F). EDW 120 kg Physical Exam Heart: Regular rate and rhythm with no S3, S4, murmur or rub. Lungs: CTA bilaterally. No rales or wheezes. Abdomen: Soft, flat, nontender, normoactive bowel sounds. Extremities: No clubbing, cyanosis, or edema. (+) well-developed AVF, left arm with QB = 4 00. LAB: BUN 54, Cr 7.69, K+ 4.8, HCO3 17, Ca++ 7.8, PO4 5.0, PTH 140, Alb 3.5, Hb 11.1, TSat. = 26%, Ferritin 561, eKT/V = 1.27. Assessment: 1. ESRD--he appears well dialyzed clinically on the current Rx. 2. Hypertension--good control. 3. Anemia--His iron stores appear adequate. His Hb appears stable on the current EPO anemi a algorithm. 4. SHPTH--Will continue the current dose of Hectorol, and recheck the PTH next quarter. 5. Nutrition--I encouraged him to maximize his intake of high biological value protein. 6. Type 2 DM--Will recheck the Hbaic next quarter. 7. Hepatitis C--LFT's previously have been stable. 8. Hyperlipidemia--will recheck the lipid profile quarterly. 9. Transplantation--he has not thought a great deal about this, but he is interested in ex ploring it further. 10. Right renal mass, MRI, 10/2012--suspicious for complex, "proteinaceous cysts, " on MRI at that time. Plan: 1. His AVF appears to be functioning well. 2. His anemia appears stable on the current dose of EPO. 3. Will recheck him in one month with lab. CC: Artem Angelo MD [facility] documented in thi s encounter Plan of Treatment Not on filedocumented as of this encounter Visit Diagnoses Not on filedocumented in this encounter
--- OUTSIDE RECORDS SUMMARY | ~2020-03-04 | XMS | Encounter Summary ---
Demographics + + + | Address | [address] | | | [place] [address] | + + + | Home Phone | | + + + | Preferred Language | Unknown | + + + | Marital Status | | + + + | Lutheran Affiliation | 1041 | + + + | Race | Unknown | + + + | Ethnic Group | Unknown | + + + Author + + + | Author | [facility] | | | and Scarana | + + + | Organization | [facility] | | [...] Team Providers + +------+ + | Care Oil Well Logger Name | Role | Phone | + [...] NEPHROLOGY [address] | M, DO [address] | | | | | [address] | [place], [address] | | | | | [place] | [place] | | | | | [address] | [address] | | | | | [phone] | | | +--------+ + + + [...]
--- OUTSIDE RECORDS SUMMARY | ~2020-03-04 | XMS | Encounter Summary ---
Demographics + + + | Address | [address] | | | [place] [address] | + + + | Home Phone [...] Organization | [facility] | [...] Team Providers + +------+ + | Care Alumina Refinery Operator Name | Role | Phone | [...] [place] | | | | | ([facility]) | [place] | [address] [place] | | | | | Procedures | [address] | [place] | | | | | [place] OFFICE | Phone: | [phone] Phone: | | | | | OUTPATIENT | [phone] | [phone] | | | | | VISIT 25 | Fax: | Fax: | | | | | MINUTES | [phone] | [phone] | +--------+--------+ + + + + Encounter [...] | [address] | [employer], [place] | (Primary Dx); Anemia | | | | [place] | [place] | in ESRD (end-stage | | | | [address] | [address] | renal disease) | | | | [phone] | | ([facility]); Renovascular | | | | | | [...] is seen on outpatient HD, at the [facility] . He also has T2DM, requiring insulin, anemia secondary to CKD, hyperlipidemia, Hepatitis C, morbid obesity and a question of a right renal mass on prior US. Unfortunately, he has mis sed a couple of treatments in the last month for unclear reasons. 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 In addition, his serum phosphorus is trending upward. Outpatient Prescriptions Marked as Taking for the 11/30/14 encounter (Off-Site Visit) with Jean Orozco DO Medication Sig Dispense Refill aspirin 81 mg EC tablet Take 81 mg by mouth Daily. atorvaSTATin (LIPITOR) 20 mg tablet Take 1 tablet by mouth Daily. 30 tablet 5 B Doezdvi-G-Nsgee Acid (OLEG-TEQUILA RX) 1 MG TABS Take [...] blood pressure, and adequacy appear stable. CC: [facility] documented in thi s encounter Plan [...]
--- OUTSIDE RECORDS SUMMARY | ~2020-03-04 | XMS | Encounter Summary ---
Demographics + + + | Address | [address] | | | [place] [address] | + + + | Home Phone [...] + | Author | [facility] | | | and Scarana | + + + | Organization | [facility] | | | and [place] [...] Team Providers + +------+ + | Care Gate Services Supervisor Name | Role | Phone | [...] [address] | [address], [place] | | | | | [place], [place] | [address] [place], [place] | | | | | [address] | [address] | | | | | [phone] | | | +--------+ + + + [...]
--- OUTSIDE RECORDS SUMMARY | ~2020-03-04 | XMS | Encounter Summary ---
Demographics + + + | Address | [address] | | | [place] [address] | + + + | Home Phone | | + + + | Preferred Language | Unknown | + + + | Marital Status | | + + + | Restoration Affiliation | 1041 | + + + | Race | Unknown | + + + | Ethnic Group | Unknown | + + + Author + + + | Author | [facility] | | | and Scarana | + + + | Organization | [facility] | [...] Team Providers + +------+ + | Care Route Sales Delivery Driver Name | Role | Phone | [...] | | disease | [address] | [place], [place] | | | | | ([facility]) | [place] | [address] | | | | | Procedures | [address] | [place] | | | | | NE OFFICE | [facility] | [address] Phone: | | | | | OUTPATIENT | [place] | [phone] | | | | | VISIT 25 | [address] | Fax: | | | | | MINUTES | Phone: | [phone] | | | | | dialysis | [phone] | | | | | | | Fax: | | | | | | | [phone] | | +--------+--------+ + + + + Encounter Details +--------+ + + + + | Date | Type | Department | Care Team | Description | +--------+ + + + + | 03/25/ | Off-Site | [facility] [place] | Uceh Orozco | End stage renal | | 2018 | Visit | NEPHROLOGY [address] | M, DO [address] | disease (HCC) | | | | [address] | [place], [place] | (Primary Dx) | | | | [place] | [place] | | | | | [address] | [address] | | | | | [phone] | | | +--------+ + + + [...] by mouth Daily. 30 tablet 5 B Xnvfizc-O-Ljumg Acid (OLEG-TEQUILA RX) 1 MG TABS Take [...] CKD-- his Hb appears stable on the [facility] anemia algorithm. 4. Nutrition--albumin is decreased slightly, [...] Will recheck him in 2 weeks. : [facility] documented in thi s encounter Plan of Treatment Not on filedocumented as of this encounter Visit Diagnoses + + | Diagnosis | + + | End stage renal disease (HCC) - Primary End stage renal disease | + + documented in this encounter"
--- OUTSIDE RECORDS SUMMARY | ~2020-03-04 | XMS | Encounter Summary ---
Demographics + + + | Address | [address] | | | [place] [address] | + + + | Home Phone | | + + + | Preferred Language | Unknown | + + + | Marital Status | | + + + | Sikh Affiliation | 1041 | + + + | Race | Unknown | + + + | Ethnic Group | Unknown | + + + Author + + + | Author | [facility] | | | and Scarana | + + + | Organization | [facility] | | | and [...] Team Providers + +------+ + | Care Vinyl Flooring Installer Name | Role | Phone | + +------+ + PCP | Unavailable | + +------+ + Encounter Details +--------+ + + + + | Date | Type | Department | Care Team | Description | +--------+ + + + + | 03/29/ | Off-Site | [facility] [place] | Uche Orozco | Type II or | | 2014 | Visit | NEPHROLOGY [address] | M, DO [address] | unspecified type | | | | [address] | [place], [address] | diabetes mellitus | | | | [place], [place] | [place] | with renal | | | | [address] | [address] | manifestations, | | | | [phone] | | uncontrolled (HCC) | | | | | | (Primary Dx); End | | | | | | stage renal disease | | [...] + + + | Blood Pressure | 138/69 | 03/29/2015 3:33 PM | | | | | PDT | | + + + + + | Pulse | - | - | | + + + + + | Temperature | 36.2 C (97.1 F) | 03/29/2015 3:33 PM | | | | | PDT [...] this encounter Progress Notes Uche Orozco, - 04/24/2015 3:35 PM PDT Subjective: [facility] DIALYSIS NOTE Patient ID: Celso Caro is a 55 y.o. male. HPI Comments: Monthly dialysis visit for this 55 YO male with ESRD second milly to diabetic nephropathy, who is seen on outpatient HD, at the [facility] . He also has T2DM, requiring insulin, anemia secondary to CKD, hyperlipidemia, Hepatitis C, morbid obesity and a question of a right renal mass on prior US. He appears to be much m ore diligent about his intradialytic weight gains, and also compliance with all of his presc ribed treatments. He is on thrice weekly dialysis. Outpatient Prescriptions Marked as Taking for the 03/29/15 encounter (Off-Site Visit) with Jean Orozco DO Medication Sig Dispense Refill aspirin 81 mg EC tablet Take 81 mg by mouth Daily. atorvaSTATin (LIPITOR) 20 mg tablet Take 1 tablet by mouth Daily. 30 tablet 5 B Bpzxmxy-X-Hgibh Acid (OLEG-TEQUILA RX) 1 MG TABS Take 1 mg by mouth Daily. 30 each 11 Cholecalciferol (VITAMIN D3) 5000 UNITS CAPS Take 2,000 Units by mouth Daily. cinacalcet (SENSIPAR) 30 mg tablet Take 1 tablet by mouth Daily. 90 tablet 4 doxercalciferol (HECTOROL) 4 MCG/2ML injection Inject 0.5 mcg into the vein Three times a week. epoetin padilla (EPOGEN, PROCRIT) 10,000 units/mL injection Inject 1,500 Units into the ve in Three times [...] Besylate Unknown Metformin Diarrhea Objective: Blood pressure 138/69, temperature 36.2 C (97.1 F). EDW 124 kg Physical Exam Heart: Regular rate and rhythm with no S3, S4, murmur or rub. Lungs: CTA bilaterally. No rales or wheezes. Abdomen: Soft, flat, nontender, normoactive bowel sounds. Extremities: No clubbing, cyanosis, or edema. LAB: BUN 43, Cr 12.82, K+ 6.6, HCO3 21, Ca++ 8.7, phosphorus 9.2, albumin 4.0, PTH 430, Hb 11.0, T sat = 23%, Ferritin 1061, KT/V = 1.65. Assessment: 1. ESRD--he appears stable on 2K +, R 21, QB 475, QD600, thrice weekly. 2. Hypertension--generally, his BP is within goal by the end of his treatments. 3. Anemia--hemoglobin is stable on the current dose of EPO. His iron stores appear adequa te. 4. SHPTH--his PTH is improved from last month and he is working closely on limiting his ph osphorus restriction. 5. Nutrition--his appetite is excellent on the current Rx. 6. Type 2 DM--his HbA1c was improved last month at 7.7%. 7. Hepatitis C--stable. Apparently, she needs to still schedule a liver Bx, per last [facility] correspondence. 8. Hyperlipidemia--Will recheck the lipid profile next quarter. 9. Transplantation-- I have discussed this, however, he is noncommittal about further plan jadon. 10. Right renal mass, MRI, 10/2012--suspicious for complex, "proteinaceous cysts, " on MRI at that time. He denies any new symptoms. Plan: 1. Overall, he appears stable on his current prescription of 4.5 hours thrice weekly. 2. He appears to know the doses, and intervals accurately of all of his meds. 3. He will be rechecked by the Nephrology team in 2 weeks. CC: [facility], [facility] documented in thi s encounter Plan of Treatment Not on filedocumented as of this encounter Visit Diagnoses + + | Diagnosis | + + | Type II or unspecified type diabetes mellitus with renal manifestations, | | uncontrolled(250.42) ([facility]) - Primary Type II or unspecified type diabetes mellitus with | | renal manifestations, uncontrolled | + + | End stage renal disease (HCC) End stage renal disease | + + documented in this encounter
--- OUTSIDE RECORDS SUMMARY | ~2020-03-04 | XMS | Encounter Summary ---
Demographics + + + | Address | [address] | | | [place] [address] | + + + | Home Phone [...] Organization | [facility] | | [...] Team Providers + +------+ + | Care Slasher Hand Name | Role | Phone | + +------+ + PCP | Unavailable | + +------+ + Encounter Details +--------+ + + + + | Date | Type | Department | Care Team | Description | +--------+ + + + + | 11/10/ | Documentati | [facility] [place] | Uche Orozco | | | 2013 | on | NEPHROLOGY [address] | M, DO [address] | | | | | [address] | [place], [address] | | | | | [place] | [place] | | | | | [address] | [address] | | | | | [phone] | | | +--------+ + + + [...] encounter Progress Notes Uche Orozco DO - 11/10/2013 5:11 PM PSTNEPHROLOGY He is seen on the MWF shift at [facility]. He had his left arm AVF transposed on , and tolerated it well. He is somewhat unsure of the names of his meds. He does deny cramps, anorexia or fatigue. Exam BP 170/89 T97.0 EDW 127 kg Lungs: CTA in all valle. Ext: (+) strong bruit at left upper arm AVF; incisions are clear and dry. No ankle edema. Plan 1. His AVF appears to be developing well. 2. Will maintain his SBP > 140 mmHg, while the AVF is fully developing.Electronically sign ed by Uche Orozco DO at 03/03/2014 3:54 PM PDTdocumented in this encounter Plan of Treatment Not on filedocumented as of this encounter Visit Diagnoses Not on filedocumented in this encounter"
--- OUTSIDE RECORDS SUMMARY | ~2020-03-04 | XMS | Encounter Summary ---
Demographics + + + | Address | [address] | | | [place] [address] | + + + | Home Phone | | + + + | Preferred Language | Unknown | + + + | Marital Status | | + + + | Sikhism Affiliation | 1041 | + + + | Race | Unknown | + + + | Ethnic Group | Unknown | + + + Author + + + | Author | [facility] | | | and Scarana | + + + | Organization | [facility] | | | and [...] Team Providers + +------+ + | Care Channel Opener Outsoles Name | Role | Phone | + +------+ + PCP | Unavailable | + +------+ + Reason for Visit + + + | Reason | Comments | + + + | Medication Question | | + + + Encounter Details +--------+ + + + + | Date | Type | Department | Care Team | Description | +--------+ + + + + | 03/15/ | Telephone | [facility] [place] | Uche Orozco | Medication Question | | 2018 | | NEPHROLOGY [address] | M, DO [address] | | | | | [address] | [place], [address] | | | | | [place], [place] | [place], [place] | | | | | [address] | [address] | | | | | [phone] | | | +--------+ + + + [...]
--- OUTSIDE RECORDS SUMMARY | ~2020-03-04 | XMS | Encounter Summary ---
Demographics + + + | Address | [address] | | | [place] [address] | + + + | Home Phone | | + + + | Preferred Language | Unknown | + + + | Marital Status | Single | + + + | Mosque Affiliation | Unknown | + + + | Race | or | + + + | Ethnic Group | Not or | + + + Author + + + | Author | [facility] | + + + | Organization | [facility] | + + + | Address | [...] Team Providers + +------+ + | Care Addressing Machine Operator Name | Role | Phone [...] | | | | | [address] [place], | [place], [place] | | | | | [place] [address] | [address] | | | | | [phone] | | | +--------+ + + + [...]
--- OUTSIDE RECORDS SUMMARY | ~2020-03-04 | XMS | Encounter Summary ---
Demographics + + + | Address | [address] | | | [place] [address] | + + + | Home Phone | | + + + | Preferred Language | Unknown | + + + | Marital Status | | + + + | Pentecostalism Affiliation | 1041 | + + + | Race | Unknown | + + + | Ethnic Group | Unknown | + + + Author + + + | Author | [facility] | | | and Scarana | + + + | Organization | [facility] | | | and [...] Providers + +------+ + | Care Senior Technical Specialist Name | Role | Phone | [...] | unspecified | MD [address] | [employer] [address] | | | | | type | [place] | [place], [place] | | | | | diabetes | [address] [place] | [address] [place] | | | | | mellitus | [place], [place] | [place] | | | | | with renal | [address] | [address] Phone: | | | | | manifestatio | Phone: | [phone] | | | | | ns, | [phone] | Fax: | | | | | uncontrolled | Fax: | [phone] | | | | | ([phone] | [phone] | | | | | | (HCC) [...] missed appointment because of cellulits. Please let [facility] | | [phone] know the day and time of appointment as well as patient. | + + Encounter Details +--------+ + + + + | Date | Type | Department | Care Team | Description | +--------+ + + + + | 02/08/ | Orders Only | [facility] | Lexi Kuo W, | Type II or | | 2015 | | NEPHROLOGY [address] | [address] [place] | unspecified type | | | | [address] | [place] [facility] | diabetes mellitus | | | | [place] | [place] [address] | with renal | | | | [address] | [phone] | manifestations, | | | | [phone] | | uncontrolled (HCC) | | | [...] with renal manifestations, | | uncontrolled(250.42) ([facility]) - Primary Type II or unspecified type diabetes mellitus with | | renal manifestations, uncontrolled | + + | Unspecified viral hepatitis C without hepatic coma | + + | Other specified pre-operative examination | + + | Routine general medical examination at a health care facility | + + documented in this encounter"
--- OUTSIDE RECORDS SUMMARY | ~2020-03-04 | XMS | Encounter Summary ---
Demographics + + + | Address | [address] | | | [place] [address] | + + + | Home Phone [...] | Organization | [facility] | | | and [place] [...] Team Providers + +------+ + | Care Inventory Representative Name | Role | Phone | [...] | [address] | [place], [address] | | | | | [place] | [place] | | | | | [address] | [address] | | | | | [phone] | | | +--------+ + + + [...] DO - 02/01/2016 5:16 PM PDT [facility] Patient ID: Celso Caro is a 55 y.o. male. 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 He also has T2DM, requiring insulin, anemia secondary to CKD, hyperlipidemia, and Hepatit is C. Outpatient Prescriptions Marked as Taking for the 02/01/16 encounter (Documentation) with Shaji Orozco DO Medication Sig Dispense Refill aspirin 81 mg EC tablet Take 81 mg by mouth Daily. atorvaSTATin (LIPITOR) 20 mg tablet Take 1 tablet by mouth Daily. 30 tablet 5 B Svbrtqn-Z-Hnstg Acid (OLEG-TEQUILA RX) 1 MG TABS Take [...] listed. 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 Plan: 1. I [...] HbA1c and iron profile next month[facility] Uche Orozco DO at 5:43 [...]
--- OUTSIDE RECORDS SUMMARY | ~2020-03-04 | XMS | Encounter Summary ---
Demographics + + + | Address | [address] | | | [place] [address] | + + + | Home Phone | | + + + | Preferred Language | Unknown | + + + | Marital Status | Single | + + + | Religion Affiliation | Unknown | + + + | Race | or | + + + | Ethnic Group | Not or | + + + Author + + + | Author | [facility] | + + + | Organization | [facility] | + + + | Address | [...] Team Providers + +------+ + | Care Trap Puller Name | Role | Phone | + +------+ + | Frances Obrien MD | PCP | | + +------+ + Encounter Details +--------+ + + + + | Date | Type | Department | Care Team | Description | +--------+ + + + + | 07/22/ | Abstract | Clinical | Colleen Amaro, | | | 2013 | | Transplant Services | RN [address] [facility] | | | | | [address] | [address] | | | | | [place], | [place], [place] | | | | | [place] [address] | [address] | | | | | [phone] | | | +--------+ + + + [...]
--- OUTSIDE RECORDS SUMMARY | ~2020-03-04 | XMS | Encounter Summary ---
Demographics + + + | Address | [address] | | | [place] [address] | + + + | Home Phone [...] + + | Author | [facility] | | | and Scarana | + + + | Organization | [facility] | | | and [place] [...] Team Providers + +------+ + | Care Excelsior Machine Tender Name | Role | Phone | + [...] | NEPHROLOGY [address] | Sarai Osei, CASTER OPERATOR [address] | | | | | [address] | [address], [place] | | | | | [place], [place] | [address] [place], [place] | | | | | [address] | [address] | | | | | [phone] | | | +--------+--------+ + + + [...]
--- OUTSIDE RECORDS SUMMARY | ~2020-03-04 | XMS | Encounter Summary ---
Demographics + + + | Address | [address] | | | [place] [address] | + + + | Home Phone | | + + + | Preferred Language | Unknown | + + + | Marital Status | | + + + | Congregational Affiliation | 1041 | + + + | Race | Unknown | + + + | Ethnic Group | Unknown | + + + Author + + + | Author | [facility] | | | and Scarana | + + + | Organization | [facility] | | | and [place] | + [...] Providers + +------+ + | Care Commercial Engineer Name | Role | Phone | [...] | [address] | [place], [address] | | | | | [place] | [place] | | | | | [address] | [id number] | | | | | [phone] | | | +--------+ + + + [...]
--- OUTSIDE RECORDS SUMMARY | ~2020-03-04 | XMS | Encounter Summary ---
Demographics + + + | Address | [address] | | | [place] [address] | + + + | Home Phone | | + + + | Preferred Language | Unknown | + + + | Marital Status | | + + + | Orthodox Affiliation | 1041 | + + + | Race | Unknown | + + + | Ethnic Group | Unknown | + + + Author + + + | Author | [facility] | | | and Scarana | + + + | Organization | [facility] and [facility] | | | and [...] Team Providers + +------+ + | Care Tennis Coach Name | Role | Phone | [...] NEPHROLOGY [address] | MD [address] | (Asymptomatic) | | | | [address] | [place] [address] [place] | | | | | [place], [place] | [place] [address] | | | | | [address] | [phone] | | | | | [phone] | | | +--------+ + + + [...] progress note e-faxed to Frances starks MD, [facility] on 07/03/14. Lexi Hollingsworth MD - 06/26/2014 1:55 PM PDTFormatting of beatrice s note might be different from the original. Comprehensive Dialysis Monthly Note Date of visit: 06/26/2014 Dialysis Clinic: [facility] Mode of dialysis: Hemodialysis Dialysis [...] 05/04/2014 Note Last Updated: 05/05/2014 Referred to [facility] on 05/04/14. Referral received. Awaiting benefits check. Anemia in ESRD (end-stage renal disease) ([facility]) 12/24/2013 Hypertension 09/22/2013 Preventative health care 06/25/2013 [...] by mouth Daily. 30 tablet 5 B Biwtzji-W-Mspdz Acid (OLEG-TEQUILA RX) 1 MG TABS Take [...] at goal 8. Transplantation: Referral sent to [facility] for kidney transplantation. 9. DM type 2: [...]
--- OUTSIDE RECORDS SUMMARY | ~2020-03-04 | XMS | Encounter Summary ---
Demographics + + + | Address | [address] | | | [place] [address] | + + + | Home Phone | | + + + | Preferred Language | Unknown | + + + | Marital Status | | + + + | Synagogue Affiliation | 1041 | + + + | Race | Unknown | + + + | Ethnic Group | Unknown | + + + Author + + + | Author | [facility] | | | and [place] | + + + | Organization | [facility] and [facility] | | | and [...] Providers + +------+ + | Care Master Of Ceremonies Name | Role | Phone | + [...] | [address] | [place], [address] | | | | | [place] | [place] | | | | | [address] | [address] | | | | | [phone] | | | +--------+ + + + [...] PSTManually faxed progress note from 10/04/15 to [facility] referrals. Requesting yearly referral from [facility] for nephrology for the year, 2015.Elect margi signed by Dedra Camara at 10/07/2015 3:36 PM PSTdocumented in this encounter Plan of Treatment Not on filedocumented as of this encounter Visit Diagnoses Not on filedocumented in this encounter"
--- OUTSIDE RECORDS SUMMARY | ~2020-03-04 | XMS | Encounter Summary ---
Demographics + + + | Address | [address] | | | [place] [address] | + + + | Home Phone [...] + | Organization | [facility] | | | and [...] Team Providers + +------+ + | Care Shaft Headman Name | Role | Phone | + [...] | | | disease | NW | [place], [place] | | | | | (HCC) | [place] | [address] [place] | | | | | Procedures | [address] | [place], [place] | | | | | [place] ESRD | [place], | [address] Phone: | | | | | RELATED SVC | [place] | [phone] | | | | | MONTHLY | [address] | Fax: | | | | | 20&/> YR OLD | Phone: | [phone] | | | | | 4/> VISITS | [phone] | | | | | | dialysis | Fax: | | | | | | | [phone] | | + +--------+ + + + + Encounter Details +--------+ + + + + | Date | Type | Department | Care Team | Description | +--------+ + + + + | 09/29/ | Off-Site | [facility] [place] | Uche Orozco | End stage renal | | 2019 | Visit | NEPHROLOGY [address] | M, DO [address] | disease (HCC) | | | | [address] | [place] | (Primary Dx) | | | | [place], [place] | [place], [place] | | | | | [address] | [address] | | | | | [phone] | | | +--------+ + + + [...] + + + | Blood Pressure | 130/84 | 09/29/2019 4:30 PM | | | | | PST | | + + + + + | Pulse | - | - | | + + + + + | Temperature | 36.2 C (97.2 F) | 09/29/2019 4:30 PM | | | | | PST [...] encounter Progress Notes Uche Orozco DO - 09/29/2019 9:15 AM PST Subjective: [facility] DIALYSIS NOTE Patient ID: Celso Caro is a 59 y.o. male. 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 His d ialysis runs are basically uneventful. He denies anorexia, chest pain, or dyspnea. PAST MEDICAL HISTORY: 1. Type 2 DM, [...] CKD/MBD--treated with Velphoro, and Hectorol at the [facility], [place], [place]. Outpatient Medications Marked as Taking for the 09/29/19 encounter (Off-Site Visit) with Shaji Orozco DO Medication Sig Dispense Refill apixaban (ELIQUIS) 5 mg tablet Take 2.5 mg by mouth 2 times daily. B Mcummto-B-Shnkt Acid (OLEG-TEQUILA RX) 1 MG TABS Take 1 mg by mouth Daily. 30 each 11 cefdinir (OMNICEF) 300 mg capsule Take 1 capsule by mouth every 48 hours. 2 capsule 0 Cholecalciferol (VITAMIN D3) 5000 UNITS CAPS Take 5,000 Units by mouth Daily. cinacalcet (SENSIPAR) 30 mg tablet Take 30 mg by mouth Three times a week. doxercalciferol (HECTOROL) 2 mcg/mL injection Inject 1 mcg into the vein Three times a week. epoetin padilla (EPOGEN, PROCRIT) 10,000 units/mL injection Inject 1,000 Units into the ve in Three times a week. insulin glargine (LANTUS) [...] Unknown Fenofibrate Acidosis Metformin Diarrhea Objective: BP 130/84 | Temp 36.2 C (97.2 F) EDW 121.5 kg Physical Exam Heart: Regular rate and rhythm with no S3, S4, murmur or rub. Lungs: CTA in all valle. No rales or wheezes. Abdomen: Soft, flat, nontender, normoactive bowel sounds. Extremities: no edema, no rash, AVF at left arm is clear and dry. LAB: BUN 48, Cr 9.2, K+ 5.3, HCO3 24, albumin 4.0, Ca++ 8.2, P04 6.6, PTH 901, Hb 12.1, T sat =19%, ferritin 762, eKT/V = 1.37. Assessment: 1. ESRD--he appears well dialyzed by the most recent dry weight appears satisfactory. eKT /V. 2. Hypertension-- good control with metoprolol and UF. 3. Anemia secondary to CKD-- He appears to be responding very well to the [facility] EPO algor ithm. He may need additional IV Venofer to target the T sat >30%. 4. Nutrition--his appetite is good he states verbally. Serum albumin is stable. 5. CKD/MBD--- phosphorus control is reasonable. His PTH is trending upward. I reviewed w ith him features of a low phosphorus diet. 6. Type 2 DM--recheck HbA1c next month. 7. Hepatitis C--historically in remission. 8. Hyperlipidemia--on rosuvastatin therapy. 9. Transplantation-- I believe that he is currently waitlisted. 10. PAF--he appears stable on rate control and anticoagulation. Plan: 1. Monthly lab was reviewed with the patient. 2. Will give him some supplemental IV Venofer to target the T sat >30%. 3. Need to recheck his iron profile HbA1c and PTH next month. : [facility] Toby Schuster DPM documented in thi [...]
--- OUTSIDE RECORDS SUMMARY | ~2020-03-04 | XMS | Encounter Summary ---
Demographics + + + | Address | [address] | | | [place] [address] | + + + | Home Phone | | + + + | Preferred Language | Unknown | + + + | Marital Status | | + + + | Confucianism Affiliation | 1041 | + + + | Race | Unknown | + + + | Ethnic Group | Unknown | + + + Author + + + | Author | [facility] | | | and [place] | + + + | Organization | [facility] | | [...] Team Providers + +------+ + | Care Contour Stitcher Name | Role | Phone | + +------+ + PCP | Unavailable | + +------+ + Encounter Details +--------+ + + + + | Date | Type | Department | Care Team | Description | +--------+ + + + + | 02/12/ | Abstract | [facility] [place] | Emmanuelthalrenetta, | | | 2012 | | NEPHROLOGY [address] | Sarai Osei, [address] | | | | | [address] | [address], [place] | | | | | [place] | [address] [place] | | | | | [address] | [address] | | | | | [phone] | | | +--------+ + + + [...]
--- OUTSIDE RECORDS SUMMARY | ~2020-03-04 | XMS | Encounter Summary ---
Demographics + + + | Address | [address] | | | [place] [address] | + + + | Home Phone | | + + + | Preferred Language | Unknown | + + + | Marital Status | | + + + | Temple Affiliation | 1041 | + + + | Race | Unknown | + + + | Ethnic Group | Unknown | + + + Author + + + | Author | [facility] | | | and [place] | + + + | Organization | [facility] | | | and [place] [...] Providers + +------+ + | Care Oil Pipeline Operator Name | Role | Phone | [...] | [address] | [place], [address] | pic line) | | | | [place], [place] | [place] | | | | | [address] | [address] | | | | | [phone] | | | +--------+ + + + [...]
--- OUTSIDE RECORDS SUMMARY | ~2020-03-04 | XMS | Encounter Summary ---
Demographics + + + | Address | [address] | | | [place] [address] | + + + | Home Phone | | + + + | Preferred Language | Unknown | + + + | Marital Status | | + + + | Hoahaoism Affiliation | 1041 | + + + | Race | Unknown | + + + | Ethnic Group | Unknown | + + + Author + + + | Author | [facility] | | | and [place]ana | + + + | Organization | [facility] | | | and [place] [...] Team Providers + +------+ + | Care Account Specialist Name | Role | Phone | [...] | | | disease | NW | [place], [place] | | | | | (HCC) | [place] | [address] [place] | | | | | Procedures | [address] | [place], [place] | | | | | [place] ESRD | [place], | [address] Phone: | | | | | RELATED SVC | [place] | [phone] | | | | | MONTHLY | [address] | Fax: | | | | | 20&/> YR OLD | Phone: | [phone] | | | | | 4/> VISITS | [phone] | | | | | | dialysis | Fax: | | | | | | | [phone] | | + +--------+ + + + + Encounter Details +--------+ + + + + | Date | Type | Department | Care Team | Description | +--------+ + + + + | 08/04/ | Off-Site | [facility] [place] | Uche Orozco | End stage renal | | 2019 | Visit | NEPHROLOGY [address] | M, DO [address] | disease (HCC) | | | | [address] | [place], [address] | (Primary Dx) | | | | [place], [place] | [place], [place] | | | | | [address] | [address] | | | | | [phone] | | | +--------+ + + + [...] + + + | Blood Pressure | 128/74 | 08/09/2019 1:06 PM | | | | | PDT | | + + + + + | Pulse | - | - | | + + + + + | Temperature | 36.4 C (97.6 F) | 08/09/2019 1:06 PM | | | | | PDT [...] encounter Progress Notes Uche Orozco DO - 08/04/2019 9:15 AM PDT Subjective: [facility] DIALYSIS NOTE Patient ID: Celso Caro is a 59 y.o. male. 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 Denie s chest pain, BOWEN, or claudication. PAST MEDICAL HISTORY: 1. Type 2 DM, [...] CKD/MBD--treated with Velphoro, and Hectorol at the [facility], [place], [place]. No outpatient medications have been marked as taking for the 08/04/19 encounter (Appointmen t) with Uche Orozco DO. Allergies Allergen Reactions Amlodipine Besylate Unknown Fenofibrate Acidosis Metformin Diarrhea Objective: BP 128/74 | Temp 36.4 C (97.6 F) EDW 121.5 kg Physical Exam Heart: Regular rate and rhythm with no S3, S4, murmur or rub. Lungs: CTA in all valle. No rales or wheezes. Abdomen: Soft, flat, nontender, normoactive bowel sounds. Extremities: no edema, no rash, AVF at left arm is clear and dry. LAB: BUN 66, Cr 8.1, K+ 4.7, HCO3 27, albumin 3.8, Ca++ 8.5, phosphorus 7.5, PTH 942, Hb 1 1.6, T sat 22%, ferritin 968, HbA1c not listed, spKT/V = 1.49. Assessment: 1. ESRD--his adequacy appears stable on the current Rx thrice weekly. 2. Hypertension-- BP control appears stable to current dry weight. 3. Anemia secondary to CKD--EPO is on hold until Hb <11.0. He appears to be responding we ll to the current algorithm. 4. Nutrition--his appetite is excellent and serum albumin is stable 5. CKD/MBD--phosphorus control is above target. I reviewed with him features of a <1000 m g P04 diet. Also encouraged him to take his VELPHORO exactly AC&HS. 6. Type 2 DM--need to repeat his HbA1c. 7. Hepatitis C--historically in remission. 8. Hyperlipidemia--on rosuvastatin therapy. 9. Transplantation-- I believe that he is currently waitlisted. Plan: 1. I encouraged Herman that optimal control of his serum P04 will help prevent bone damage a nd worsening ASCVD. I encouraged him to take the VELPHORO exactly AC&HS. 2. Need to recheck the HbA1c. 3. Otherwise his adequacy appears stable on the current Rx. : [facility] Toby Schuster [facility] documented in thi s encounter Plan [...]
--- OUTSIDE RECORDS SUMMARY | ~2020-03-04 | XMS | Encounter Summary ---
Demographics + + + | Address | [address] | | | [place] [address] | + + + | Home Phone [...] + | Organization | [facility] | | | and [...] Team Providers + +------+ + | Care Extension Service Specialist In Charge Name | Role | Phone | + +------+ + PCP | Unavailable | + +------+ + Encounter Details +--------+ + + + + | Date | Type | Department | Care Team | Description | +--------+ + + + + | 02/07/ | Imaging | TAMMY MACHADO | Provider, | | | 2018 | Exam | [facility] | MD [address] | | | | | IMAGING [address] | Kenji AMAYA | | | | | STEVIE KHAN | [place] [address] | | | | | [place] [address] | | | | | | [phone] | | | +--------+ + + + [...] +--------+ + + + | XR CHEST 2 VIEWS | Routin | 02/05/2018 | | Results for this | | | e | 12:55 PM | | procedure are in the | | | | PDT | | results section. | + +--------+ + + + documented in this encounter Results XR Chest 2 Vws (02/05/2018 12:55 PM PDT) + + | Specimen | [...]
--- OUTSIDE RECORDS SUMMARY | ~2020-03-04 | XMS | Encounter Summary ---
Demographics + + + | Address | [address] | | | [place] [address] | + + + | Home Phone [...] Organization | [facility] [...] Providers + +------+ + | Care Industrial Machine Operator Name | Role | Phone [...] NEPHROLOGY [address] | M, DO [address] | | | | | [address] | [place], [address] | | | | | [place] | [place] | | | | | [address] | [address] | | | | | [phone] | | | +--------+ + + + [...]
--- OUTSIDE RECORDS SUMMARY | ~2020-03-04 | XMS | Encounter Summary ---
Demographics + + + | Address | [address] | | | [place] [address] | + + + | Home Phone | | + + + | Preferred Language | Unknown | + + + | Marital Status | | + + + | Rastafari Affiliation | 1041 | + + + | Race | Unknown | + + + | Ethnic Group | Unknown | + + + Author + + + | Author | [facility] | | | and [place] | + + + | Organization | [facility] | | | and [...] Team Providers + +------+ + | Care Fig Caprifier Name | Role | Phone | + [...] | renal | PA-C [address] | [address] | | | | | disease | [address] | [place], [place] | | | | | ([facility]) | [place] | 100 [facility] | | | | | Procedures | [address] | [place] | | | | | [place] ESRD | [place], | [address] Phone: | | | | | RELATED SVC | [place] | [phone] | | | | | MONTHLY | [address] | Fax: | | | | | 20&/> YR OLD | Phone: | [phone] | | | | | 4/> VISITS | [phone] | | | | | | dialysis | Fax: | | | | | | | [phone] | | + +--------+ + + + [...] | [address] | [place], [address] | (Primary Dx) | | | | [place], [place] | [place] | | | | | [address] | [address] | | | | | [phone] | | | +--------+ + + + [...] is seen on the MWF shift at [facility], [place], [place].he has been on or al antibiotics [...] CKD/MBD--treated with Velphoro, and Hectorol at the [facility], [place], [place]. I Outpatient Medications Marked as Taking for the 02/03/19 encounter (Off-Site Visit) with Naveen Orozco DO Medication Sig Dispense Refill amoxicillin-clavulanate (AUGMENTIN) 500-125 mg per tablet Take 1.5 tablets by mouth Monalisa ly. Indications: Infection Under the Skin 35 tablet 0 apixaban (ELIQUIS) 5 mg tablet Take 2.5 mg by mouth 2 times daily. B Hrkspec-R-Jkdrs Acid (OLEG-TEQUILA RX) 1 MG TABS Take [...] will be rechecked in 2 weeks. : [facility] Toby Schuster DPM documented in thi [...]
--- OUTSIDE RECORDS SUMMARY | ~2020-03-04 | XMS | Encounter Summary ---
Demographics + + + | Address | [address] | | | [place] [address] | + + + | Home Phone [...] | Organization | [facility] | | | and [place] [...] Team Providers + +------+ + | Care Chisel Trimmer Name | Role | Phone | + [...] | +--------+ + + + + | 02/23/ | Documentati | S[facility]ON DICK | Kuo, Lexi W, | Dialysis | | 2014 | on | NEPHROLOGY [address] | MD [address] [place] | (Asymptomatic) | | | | [address] | [place] [place] | | | | | [place], [place] | [place] [address] | | | | | [address] | [phone] | | | | | [phone] | | | +--------+ + + + [...] this encounter Progress Notes Dedra Camara - 03/13/2014 2:11 PM PDTHEMO progress note manually faxed to [facility], e-faxed to Frances Obrien MD on 03/13/14. Lexi Hollingsworth MD - 02/23/2014 5:46 PM PDT Comprehensive Dialysis Monthly Note Date of visit: 02/23/2014 Dialysis Clinic: [facility] Mode of dialysis: Hemodialysis Dialysis prescription: MWF, t=4.5 hr, Na 138, K 2, Ca 2.5, bicarb 37, BFR 475, EDW 120 kg HPI: CELSO CARO is a 54 y.o. male with ESRD on hemodialysis. Pt reports feeling well. Pt denies chest pain, shortness of breath, abdominal pain, edema. No problem with AVF. PMH: Patient Active Problem List Diagnosis Date Noted End stage renal disease ([facility]) 08/07/2013 Priority: High Note Last Updated: 03/02/2014 ESRD due to diabetic nephropathy. On hemodialysis. Access: Left brachial-cephalic AVF created on 07/28/13. Anemia in ESRD (end-stage renal disease) ([facility]) 12/24/2013 Hypertension 09/22/2013 Preventative health care [...] Outpatient Prescriptions Marked as Taking for the 02/23/14 encounter (Documentation) with Chris Kuo MD Medication Sig Dispense Refill aspirin 81 mg EC tablet Take 81 mg by mouth Daily. atorvaSTATin (LIPITOR) 20 mg tablet Take 1 tablet by mouth Daily. 30 tablet 5 B Ywazydr-S-Uoorr Acid (OLEG-TEQUILA RX) 1 MG TABS Take [...] by mouth 3 times daily (with meals). [DISCONTINUED] sevelamer carbonate (RENVELA) 800 mg tablet Take 1 tablet by mouth 3 kwabena es daily (with meals). 90 tablet 5 sitaGLIPtin (JANUVIA) 100 mg tablet Take 25 mg by mouth Daily. EXAM: T 97.3, HR 84, BP 174/93 ---> 148/92, weight 121.6 kg, gain 2.4 kg Constitutional: Appears well-developed and well-nourished. No distress. Cardiovascular: Normal rate, regular rhythm and normal heart sounds. No gallop, murmur, or friction rub. No peripheral edema. Lungs: Respiratory effort normal and breath sounds normal. No crackles or wheezes. Abdominal: Soft. Bowel sounds are normal. No distension or tenderness. Musculoskeletal: No muscle tenderness. Neurological: Alert. Dialysis Access: LUE AVF cannulated with BFR 475 mL/min. February DIALYSIS LABS: Hemoglobin 12.0 / TSAT 26% / Ferritin 569 / WBC 9.0 / PLT 316 Sodium 134 / Potassium 3.5 / Chloride 95 / Bicarb 22 / Creatinine 7.29 / BUN 39 Albumin 3.6 / Calcium 8.1 / Phosphate 5.3 / PTH 140 eKt/V 1.28 / URR 72% ASSESSMENT AND PLAN: 1. ESRD: Dialysis clearance is at goal. . 2. Access: LUE AVF functioning well. 3. HTN/volume: Pre-dialysis BP are elevated; post-dialysis BP readings are 110-130 mm / 70. Agree with change in EDW to 120 kg. 4. Anemia due to ESRD: Hb >11; Epogen adjusted down. On maintenance Venofer. 5. Secondary hyperparathyroidism / mineral bone disease: Serum calcium <8.3; PTH borderlin e low. -will stop Cinacalcet -on Hectorol 4 mcg TIW -on Renvela 6. Acid-base: Serum bicarb is acceptable. 7. Nutrition: On Liquacel supplementation. Serum albumin is improved slightly. 8. Transplantation: Pt received education material. Will f/u with patient and his preferen ce on transplant center. 9. DM type 2: On Januvia and Lantus. cc: Teo Obrien documented in this encounter Plan of Treatment Not on filedocumented as of this encounter Visit Diagnoses + + | Diagnosis | + + | End stage renal disease - Primary | + + | Hypertension Unspecified essential hypertension | + + | Anemia in ESRD (end-stage renal disease) (HCC) Anemia in chronic kidney disease | + + | Secondary hyperparathyroidism (of renal origin) | + + documented in this encounter"
--- OUTSIDE RECORDS SUMMARY | ~2020-03-04 | XMS | Encounter Summary ---
Demographics + + + | Address | [address] | | | [place] [address] | + + + | Home Phone | | + + + | Preferred Language | Unknown | + + + | Marital Status | | + + + | Jain Affiliation | 1041 | + + + | Race | Unknown | + + + | Ethnic Group | Unknown | + + + Author + + + | Author | [facility] | | | and [place] | + + + | Organization | [facility] | | | and [...] Team Providers + +------+ + | Care Elementary Instructional Coach Name | Role | Phone | + +------+ + PCP | Unavailable | + +------+ + Encounter Details +--------+ + + + + | Date | Type | Department | Care Team | Description | +--------+ + + + + | 01/23/ | Abstract | [facility] [place] | Emmanuelthalrenetta, | | | 2012 | | NEPHROLOGY [address] | Sarai Osei, [address] | | | | | [address] | [address], [place] | | | | | [place] | [address] [place] | | | | | [address] | [address] | | | | | [phone] | | | +--------+ + + + [...] | RENAL FUNCTION PANEL | Routin | 01/22/2013 | | Results for this | | | e | | | procedure are in the | | | | | | results section. | + +--------+ + + + documented in this encounter Results Renal Function Panel (01/22/2013) + + + + + + | [...] + + + + | K | 5.6 | mmol/L | [facility] | [facility] | [facility] | | | [facility] - | | | | | | LABORATORY | | + + + + + + | Cl | 114 | mmol/L | [facility] | | | [facility] | | [facility] | | | | | | [facility] - | | | | | | LABORATORY | | + + + + + + | CO2 | 17 | mmol/L | [facility] | | [facility] | [facility] | | | | | [facility] - | | | | | | LABORATORY | | + + + + + + | BUN | 49 | mg/dL | [facility] | | | [facility] | | | | | | [facility] | | | | | | [facility] - | | | | | | LABORATORY | | + + + + + + | CREA | 5.0 | mg/dL | [facility] | | [facility] | | | | | | [facility] | | | | | | [facility] - | | | | | | LABORATORY | | + + + + + + | Glucose | 284 | mg/dL | [facility] | | | | | | [facility] | | | | | | [facility] - | | | | | | LABORATORY | | + + + + + + | Calcium | 8.4 | mg/dL | [facility] | | | | | | [facility] | | | | | | [facility] - | | | | | | LABORATORY | | + + + + + + | PTH INTACT | 148 | pg/mL | [facility] | [facility] | | | [facility] | | [facility] | | | | | | [facility] - | | | | | | LABORATORY | | + + + + + + | Phosphorus | 4.2 | 2.5 - 4.8 mg/dL | [facility] | [facility] | | | | | | [facility] | | | | | | [facility] - | | | | | | LABORATORY | | + + + + + + | Albumin | 3.2 (A) | 3.5 - 5.0 g/dL | [facility] | | [facility] | | | | | | [facility] | | | | | | [facility] - | | | | | | LABORATORY | | + + + + + + | Estimated | 12.0 | mL/min/1.73m2 | [facility] | | | GFR | | | [facility] | | | | | | [facility] | | | | | | C[facility] - | | | | | | LABORATORY | | + + + + + + | Complement | 122.7 | | [facility] | | | C3, Body | | | [facility] | | | Fluid | | | MEDICAL | | | | | | CENTER - | | | | | | LABORATORY | | + + + + + + | Complement | 46.1 | | [facility] | | | C4, Body | | | [facility] | | | Fluid | | | MEDICAL | | | | | | CENTER - | | | | | | LABORATORY | | + + + + + + | Hepatitis C | posititve | | [facility] | | | Ab, | | | [facility] | | | Immunoblot | | | MEDICAL | | | | | | CENTER - | | | | | | LABORATORY | | + + + + + + | Hep B | negative | | [facility] | | | Interp | | | [facility] | | [...] + | [facility] | [address] | [place], [place] | [phone] | | [facility] | | [address] | | | - LABORATORY | | | | + + + + + | [facility] | [address] | [place], [place] | | | [facility] | | [address], [facility] | | | - LABORATORY | | | | + + + + + documented in this encounter Visit Diagnoses Not on filedocumented in this encounter"
--- OUTSIDE RECORDS SUMMARY | ~2020-03-04 | XMS | Encounter Summary ---
Demographics + + + | Address | [address] | | | [place] [address] | + + + | Home Phone [...] | Organization | [facility] | | | and [place] | [...] Team Providers + +------+ + | Care Cooling Pipe Inspector Name | Role | Phone | + [...] [address] | [place], [address] | | | | | [place] | [place] | | | | | [address] | [address] | | | | | [phone] | | | +--------+ + + + [...]
--- OUTSIDE RECORDS SUMMARY | ~2020-03-04 | XMS | Encounter Summary ---
Demographics + + + | Address | [address] | | | [place] [address] | + + + | Home Phone | | + + + | Preferred Language | Unknown | + + + | Marital Status | | + + + | Taoist Affiliation | 1041 | + + + | Race | Unknown | + + + | Ethnic Group | Unknown | + + + Author + + + | Author | [facility] | | | and [place] | + + + | Organization | [facility] | [...] Team Providers + +------+ + | Care Corporate Securities Research Analyst Name | Role | Phone | [...] | [address] | [place], [place] [address] | (Primary Dx) | | | | [place], [place] | [place] | | | | | [address] | [address] | | | | | [phone] | | | +--------+ + + + [...] DO - 04/30/2016 5:31 PM PDT Subjective: [facility] Patient ID: Celso Caro is a 56 y.o. male. HPI Comments: Monthly dialysis visit for this 55 YO male with ESRD secondar y to diabetic nephropathy, who is seen on outpatient HD, at the [facility] . He also has T2DM, requiring insulin, anemia secondary to CKD, hyperlipidemia, and Hepatit is C. Outpatient Prescriptions Marked as Taking for the 04/03/16 encounter (Off-Site Visit) with Jean Orozco DO Medication Sig Dispense Refill aspirin 81 mg EC tablet Take 81 mg by mouth Daily. atorvaSTATin (LIPITOR) 20 mg tablet Take 1 tablet by mouth Daily. 30 tablet 5 B Lrgudpo-F-Ihsaz Acid (OLEG-TEQUILA RX) 1 MG TABS Take [...] the dose to 60 mg daily? [facility] by Uche Orozco DO at 5:39 PM PDTdocumented in this encounter Plan of Treatment Not on filedocumented as of this encounter Visit Diagnoses + + | Diagnosis | + + | End stage renal disease (HCC) - Primary End stage renal disease | + + documented in this encounter"
--- OUTSIDE RECORDS SUMMARY | ~2020-03-04 | XMS | Encounter Summary ---
Demographics + + + | Address | [address] | | | [place] [address] | + + + | Home Phone [...] | Organization | [facility] | | [...] Team Providers + +------+ + | Care Farm Tractor Mechanic Name | Role | Phone | [...] [address] | [address], [place] | | | | | [place] | [address] [place] | | | | | [address] | [address] | | | | | [phone] | | | +--------+ + + + [...] + | [facility] | [address] | [place], [place] | [phone] | | [facility] | | [address] | | | - LABORATORY | | | | + + + + + | [facility] | [address] | [place], [place] | | | [facility] | | [address], [facility] | | | - LABORATORY | | | | + + + + + documented in this encounter Visit Diagnoses Not on filedocumented in this encounter"
--- OUTSIDE RECORDS SUMMARY | ~2020-03-04 | XMS | Encounter Summary ---
Demographics + + + | Address | [address] | | | [place] [address] | + + + | Home Phone [...] + | Organization | [facility] | | [...] Team Providers + +------+ + | Care Statistical Developer Name | Role | Phone | [...] | | | disease | [place] | [place], [place] | | | | | (HCC) | [place] | [address] [place] | | | | | Procedures | [address] | [place], [place] | | | | | [place] ESR[place] | [place], | [address] Phone: | | | | | RELATED SVC | [place] | [phone] | | | | | MONTHLY | [address] | Fax: | | | | | 20&/> YR OLD | Phone: | [phone] | | | | | 4/> VISITS | [phone] | | | | | | dialysis | Fax: | | | | | | | [phone] | | + +--------+ + + + + Encounter Details +--------+ + + + + | Date | Type | Department | Care Team | Description | +--------+ + + + + | 01/18/ | Off-Site | [facility] [place] | Uche Orozco | End stage renal | | 2019 | Visit | NEPHROLOGY [address] | M, DO [address] | disease (HCC) | | | | [address] | [place], [place] [address] | (Primary Dx) | | | | [place], [place] | [place], [place] | | | | | [address] | [address] | | | | | [phone] | | | +--------+ + + + [...] + + + | Blood Pressure | 129/85 | 01/19/2020 1:30 PM | | | | | PDT | | + + + + + | Pulse | - | - | | + + + + + | Temperature | 36.4 C (97.6 F) | 01/19/2020 1:30 PM | | | | | PDT | | + + + + + | Respiratory Rate | 16 | 01/19/2020 1:30 PM | | | | | PDT [...] this encounter Progress Notes Uche Orozco, - 01/19/2020 9:30 AM PDT Subjective: [facility] DIAL[facility] NOTE Patient ID: Celso Caro is a 60 y.o. male. 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 Herman states that he retired from his job with the [employer]. He stat es that he is enjoying spending more time at home with his family. Denies anorexia, hiccups , hyperglycemia or chest pain. He had an admission to [facility] on 12/29/2019 for Sirs, fever, right foot ulcer, and rapid A. f ib. He also had additional UF for pulmonary venous congestion. His rate control is improve d and he had a local I&D, debridement at the bedside, by his Talent Acquisition Operations Manager, Dr. Toby Schuster. H e states that he is feeling better. He states that he is taking his apixaban BID, consisten tly. He was discharged on oral Cipro/Flagyl and states that his foot is doing better. PAST MEDICAL HISTORY: 1. Type 2 DM, requiring insulin, diagnosed at age 44, with nephropathy and probable neuropa thy. 2. Hypertension x 13 years, per the patient. 3. Hyperlipidemia x 13 years, per the patient. 4. History of complex right renal cyst which was confirmed to be cystic on MRI, 10/2012. 5. Anemia secondary to CKD-- treated with erythropoietin and IV Venofer. 6. CKD/MBD--treated with Velphoro, Sensipar, Hectorol at the [facility]. 7. Outpatient Medications Marked as Taking for the 01/19/20 encounter (Off-Site Visit) with Naveen Orozco, DO Medication Sig Dispense Refill apixaban (ELIQUIS) 5 mg tablet Take 2.5 mg by mouth 2 times daily. B Iaoecjd-C-Rpyfu Acid (OLEG-TEQUILA RX) 1 MG TABS Take 1 mg by mouth Daily. 30 each 11 calcium acetate (CALCIUM ACETATE) 667 mg tablet Take 1,334 mg by mouth 4 times daily (b efore meals and nightly). Cholecalciferol (VITAMIN D3) 5000 UNITS CAPS Take 5,000 Units by mouth Daily. cinacalcet (SENSIPAR) 30 mg tablet Take 30 mg by mouth Three times a week. doxercalciferol (HECTOROL) 2 mcg/mL injection Inject 10 mcg into the vein Three times a week. furosemide (LASIX) 80 mg tablet Take 80 mg by mouth Daily. insulin glargine (LANTUS) 100 units/mL injection (vial) Inject 10 Units under the skin 2 times daily. 10 mL 0 loperamide (ANTI-DIARRHEAL) 2 MG tablet Take 2 mg by mouth 4 times daily as needed for Diarrhea. metoprolol succinate (TOPROL-XL) 50 mg 24 hr tablet Take 50 mg by mouth Daily. omeprazole (PRILOSEC) 20 mg capsule Take 1 capsule by mouth Daily. 30 capsule rosuvastatin (CRESTOR) 20 mg tablet Take 20 mg by mouth Daily. sucroferric oxyhydroxide (VELPHORO) 500 mg chewable tablet Take 1 tablet by mouth 4 kwabena es daily (before meals and nightly). Allergies Allergen Reactions Amlodipine Besylate Unknown Fenofibrate Acidosis Metformin Diarrhea Objective: BP 129/85 | Temp 36.4 C (97.6 F) | Resp 16 EDW 120 kg Physical Exam Heart: irregularly, irregular with no obvious S3, murmur or rub. Lungs: CTA in all valle. No rales or wheezes. Abdomen: Soft, flat, nontender, normoactive bowel sounds. Extremities: 1+ edema, (+) venous stasis both ankles, QB = 400 at his left arm AVF which is clear and dry. LAB: BUN 43, Cr 8.0, K+ 5.1, HCO3 28, glucose 154, HbA1c =6.6%, albumin 3.8, Ca++ 8.5, PO4 6.3, PTH 672, Hb 12.1, last T Sat = 22%, Ferritin 778, spKT/V = 1.37, Assessment: 1. ESRD--clinically, he appears stable on 4.25 hours, N17H, 2K +, 35 HCO3, QB 450, QD 800 , thrice weekly. 2. Hypertension-- the BP appears well controlled from review of the most recent treatment data in [place]. 3. Anemia secondary to CKD--Her iron stores appear adequate. Will need to hold the EPO, until the Hb is < 11.0 g/dl, while rechecking the Hb weekly. 4. Nutrition-- I encouraged him to maximize his intake of high biological value protein. Salb is surprisingly good despite the recent infection. 5. CKD/MBD--- although, not ideal, His PTH is improved from last month. He is taking his V elphoro consistently. 6. Type 2 DM-- His diabetic control appears stable by the most recent Hba1c. 7. Hepatitis C-- in remission. 8. Hyperlipidemia-- on detention statin Rx. 9. Transplantation-- inactivated until the foot ulcer had completely resolved. 10. Chronic AF-- stable on rate control and anticoagulation. Plan: 1. He has finished his course of oral AB's and feels that the foot ulcer is improved. 2. His CHF, rate control, nutrition appear stable on the current Rx, thrice weekly. 3. Will recheck his iron profile, PTH, and Hba1c next month. Electronically signed by: Uche Orozco DO CC: [facility] Toby Aguilarakhil HEIDI documented in thi s encounter Plan of Treatment Not on filedocumented as of this encounter Visit Diagnoses + + | Diagnosis | + + | End stage renal disease (HCC) - Primary End stage renal disease | + + documented in this encounter"
--- OUTSIDE RECORDS SUMMARY | ~2020-03-04 | XMS | Encounter Summary ---
Demographics + + + | Address | [address] | | | [place] [address] | + + + | Home Phone | | + + + | Preferred Language | Unknown | + + + | Marital Status | | + + + | Mu-Ism Affiliation | 1041 | + + + [...] Team Providers + +------+ + | Care Mechanical Door Repairer Name | Role | Phone | [...] [address] | [address], [place] | | | | | [place] | [address] [place] | | | | | [address] | [address] | | | | | [phone] | | | +--------+ + + + [...] | | | LAB | | | Angolan, | | | | | | External [...]
--- OUTSIDE RECORDS SUMMARY | ~2020-03-04 | XMS | Encounter Summary ---
Demographics + + + | Address | [address] | | | [place] [address] | + + + | Home Phone [...] | Organization | [facility] | | [...] Team Providers + +------+ + | Care Warehouse Stocker Name | Role | Phone | + [...] | +--------+ + + + + | 09/07/ | Anesthesia | [facility] | Saima Moss MD | | | 2018 | Event | MED CTR [facility] OP | [address] | | | | | [address] | [place] | | | | | [place] | [address] | | | | | [address] | | | | | | [phone] | | | +--------+ + + + + Anesthesia Record + + + + + | Procedure Name | Responsible | Anesthesia Start | Anesthesia Stop Time | | | Anesthesiologist | Time | | + + + + + | INCISION AND | Saima Moss MD | 09/07/18 0942 | 09/07/18 1105 | | DRAINAGE LEFT FOOT | | | | | (Left Foot) | | | | + + + + + +----+---+ + + | Da | T | Event | Comment | | te | i | | | | | m | | | | | e | | | +----+---+ + + | 12 | 0 | | | | /0 | 9 | | | | 1/ | 4 | | | | 20 | 1 | | | | 18 | | | | +----+---+ + + | | 0 | An Checkout | Pre-use anesthesia machine/equipment checkout. | | | 9 | | | | | 4 | | | | | 2 | | | +----+---+ + + | | 0 | An Start | | | | 9 | Data | | | | 4 | | | | | 2 | | | +----+---+ + + | | 0 | An Start | Reassessment prior to anesthesia induction/procedure. | | | 9 | | | | | 4 | | | | | 2 | | | +----+---+ + + | | 0 | Antibiotic | Zosyn from jo infusing IV. | | | 9 | Given | | | | 4 | | | | | 5 | | | +----+---+ + + | | 0 | Preoxygenat | | | | 9 | ed | | | | 4 | | | | | 8 | | | +----+---+ + + | | 0 | An | | | | 9 | Induction | | | | 5 | | | | | 0 | | | +----+---+ + + | | 0 | An | | | | 9 | Intubation | | | | 5 | | | | | 2 | | | +----+---+ + + | | 1 | Petrolia | | | | 0 | 43-degrees | | | | 0 | | | | | 3 | | | +----+---+ + + | | 1 | Pre-Procedu | | | | 0 | ral Timeout | | | | 0 | Completed | | | | 4 | | | +----+---+ + + | | 1 | First | | | | 0 | Inc/Proc St | | | | 0 | | | | | 5 | | | +----+---+ + + | | 1 | An Patient | | | | 0 | Move | | | | 4 | | | | | 4 | | | +----+---+ + + | | 1 | [place] off | | | | 1 | | | | | 0 | | | | | 0 | | | +----+---+ + + | | 1 | Breathing | | | | 1 | Spontaneous | | | | 0 | ly | | | | 0 | | | +----+---+ + + | | 1 | Oropharynx | | | | 1 | Suctioned | | | | 0 | | | | | 0 | | | +----+---+ + + | | 1 | Extubated | | | | 1 | Awake | | | | 0 | | | | | 0 | | | +----+---+ + + | | 1 | an stop | | | | 1 | data | | | | 0 | | | | | 0 | | | +----+---+ + + | | 1 | An Stop | Patient handed off to recovery nurse. | | | 0 | | | | | 5 | | | +----+---+ + + +------+ | Meds | +------+ + +--------+ | Name | Total | + +--------+ | propofol (DIPRIVAN) injection | 200 mg | | (bolus) (20 mL) | | + +--------+ | lidocaine 2% | 100 mg | + +--------+ | sodium chloride 0.9% (NS) | 750 mL | | infusion | | + +--------+ + + | Name | + + [...] Katerine S | | | | | Jose RN | | +--------+ + + + | Wound | 09/05/18; 1600; Left; plantar; | 09/05/18 1600 by | 12/30/19 0000 by | | | foot; ulceration, venous; | Santi Rodriguez RN | Lien Ochoa | | | Unknown; 12/30/19 | | DONA Gomez | +--------+ + + + | Periph | 09/05/18; 1725; Right; Forearm; | 09/05/18 172 by | 09/09/180 by | | eral | [id number] catheter system; | Dhara Baxter | Komal Martinez RN | | IV | 20 gauge; Hematology, Chemistry, | DONA Hammond | | | | Blood Culture, Coagulation; | | | | | distraction, tolerated well; | | | | | changed to different LDA type; | | | | | 09/09/18; 0 | | | +--------+ + + + | Airway | Placement Date: 09/07/18; | 09/07/18951 by | 09/07/18 1100 by | | | Placement Time: 951 (created via | Saima Moss MD | Saima Moss MD | | | procedure documentation); Mask | | | | | Ventilation: EZ; Attempts: 1; | | | | | Airway Type: laryngeal mask; | | | | | Size: 4; Trauma: none; Placement | | | | | Check: exhaled CO2 detection | | | | | device, bilateral chest rise; | | | | | Removal Date: 09/07/18; Removal | | | | | Time: 1100 | | | +--------+ + + + | Read | 09/07/18; 1045; Left; foot; | 09/07/18 1045 by | 12/31/18 1342 by | | only - | 12/31/18 (Completed/Removed by | Mark Smith RN | User Epic | | | Utility); 1342 (Completed/Removed | | | | Incisi | by Utility) | | | | on | | | | +--------+ + + + documented in [...] | ANE AIRWAY NOTE | Routin | 09/07/2018 | | Results for this | | | e | 10:14 AM | | procedure are in the | | | | PST | | results section. | + +--------+ + + + documented in this encounter Results Anesthesia Airway Note (09/07/2018 10:14 AM PST) + + + | Narrative | Performed At | + + + | Saima Moss MD 09/07/2018 10:15 Anesthesia Airway Placement | | | 09/07/2018 9:52 Preprocedure check: patient identified, suction, | | | oxygen, airway equipment checked, airway assessed and patient | | | reassessment prior to induction Mask ventilation: easy Attempts: 1 | | | Airway type: laryngeal mask Size: 4 Cuffed: cuffed Route, | | | reference point: center of mouth Tube secured with: adhesive tape | | | Trauma: none Tube placement verification: bilateral chest rise and | | | carbon dioxide detection Performing provider: SAIMA MOSS | | | Electronically Signed by: Saima Moss MD | | | ESig date/time: 09/07/2018 10:14 | | | | | + + + + + | Procedure Note | + + | Saima Moss MD - 09/07/2018 10:14 AM PST Anesthesia Airway [id number]/1/2018 | | 9:52Preprocedure check: patient identified, suction, oxygen, airway equipment checked, | | airway assessed and patient reassessment prior to inductionMask ventilation: | | easyAttempts: 1Airway type: laryngeal maskSize: 4Cuffed: cuffedRoute, reference point: | | center of mouthTube secured with: adhesive tapeTrauma: noneTube placement verification: | | bilateral chest rise and carbon dioxide detectionPerforming provider: SAIMA MOSS | | LElectronically Signed by: MD Jeanne Avina date/time: | | 09/07/2018 10:14 | |Cuffed: cuffed | |Route, reference point: center of mouth | |Tube secured with: adhesive tape | |Trauma: none | |Tube placement verification: bilateral chest rise and carbon dioxide detection | |Performing provider: SAIMA MOSS | | | | | |Electronically Signed by: MD Jeanne Avina date/time: 09/07/2018 10:14 | | | + + documented in this encounter Visit Diagnoses Not on filedocumented in this encounter Administered Medications + +--------+ +-------+------+------+ | Medication Order | MAR | Action | Dose | Rate | Site | | | Action | Date | | | | + +--------+ +-------+------+------+ | lidocaine (PF) 2% injection | Given | 09/07/20 | 20 mg | | | | Intravenous, PRN, Starting Sat | | 18 10:44 | | | | | 09/07/18 at 0950, Anesthesia | | AM PST | | | | | Intra-op | | | | | | + +--------+ +-------+------+------+ +-------+ +-------+---+---+ | Given | 09/07/20 | 80 mg | | | | | 18 9:50 | | | | | | AM PST | | | | +-------+ +-------+---+---+ +---+---+ | | | +---+---+ + +-------+ +-------+---+---+ | propofol (DIPRIVAN) injection | Given | 09/07/20 | 40 mg | | | | Intravenous, PRN, Starting Sat | | 18 10:44 | | | | | 09/07/18 at 0950, Anesthesia | | AM PST | | | | | Intra-op | | | | | | + +-------+ +-------+---+---+ +-------+ +--------+---+---+ | Given | 09/07/20 | 160 mg | | | | | 18 9:50 | | | | | | AM PST | | | | +-------+ +--------+---+---+ +---+---+ | | | +---+---+ documented in this encounter"
--- OUTSIDE RECORDS SUMMARY | ~2020-03-04 | XMS | Encounter Summary ---
Demographics + + + | Address | [address] | | | [place] [address] | + + + | Home Phone | | + + + | Preferred Language | Unknown | + + + | Marital Status | | + + + | Anglican Affiliation | 1041 | + + + | Race | Unknown | + + + | Ethnic Group | Unknown | + + + Author + + + | Author | [facility] | | | and [place] | + + + | Organization | [facility] [...] Team Providers + +------+ + | Care Children'S Service Worker Name | Role | Phone | + +------+ + PCP | Unavailable | + +------+ + Encounter Details +--------+ + + + + | Date | Type | Department | Care Team | Description | +--------+ + + + + | 07/07/ | Documentati | [facility] [place] | Emmanuelthalrenetta, | | | 2012 | on | NEPHROLOGY [address] | [place] | | | | | [address] | [address], [place] | | | | | [place] | [address] [place] | | | | | [address] | [address] | | | | | [phone] | | | +--------+ + + + [...] this encounter Progress Notes Dedra Camara - 07/07/2013 4:50 PM Denisse Tovar at [facility]'s request: patient's progress note for 06/26/13, phone note from 06/30/13, [facility] discharge summa ry were faxed to [phone] on 07/07/13.Electronically signed by Dedra Camara at 013 4:52 PM PDTdocumented in this encounter Plan of Treatment Not on filedocumented as of this encounter Visit Diagnoses Not on filedocumented in this encounter"
--- OUTSIDE RECORDS SUMMARY | ~2020-03-04 | XMS | Encounter Summary ---
Demographics + + + | Address | [address] | | | [place] [address] | + + + | Home Phone | | + + + | Preferred Language | Unknown | + + + | Marital Status | | + + + | Congregation Affiliation | 1041 | + + + | Race | Unknown | + + + | Ethnic Group | Unknown | + + + Author + + + | Author | [facility] | | | and [place] | + + + | Organization | [facility] [...] Team Providers + +------+ + | Care Auto Radiator Specialist Name | Role | Phone | [...] | NEPHROLOGY [address] | [address] | | | | | [address] | [place] [address] [place] | | | | | [place] | [place] [address] | | | | | [address] | [phone] | | | | | [phone] | | | +--------+ + + + [...]
--- OUTSIDE RECORDS SUMMARY | ~2020-03-04 | XMS | Encounter Summary ---
Demographics + + + | Address | [address] | | | [place] [address] | + + + | Home Phone | | + + + | Preferred Language | Unknown | + + + | Marital Status | | + + + | Church Affiliation | 1041 | + + + | Race | Unknown | + + + | Ethnic Group | Unknown | + + + Author + + + | Author | [facility] | | | and Scarana | + + + | Organization | [facility] | | [...] Team Providers + +------+ + | Care Alining Inspector Name | Role | Phone | [...] Ramon [place] | | | | | ([facility]) | [place] | [address] | | | | | Procedures | [address] | [place] | | | | | [place] OFFICE | Phone: | [phone] Phone: | | | | | OUTPATIENT | [phone] | [phone] | | | | | VISIT 25 | Fax: | Fax: | | | | | MINUTES | [phone] | [phone] | +--------+--------+ + + + + Encounter Details +--------+ + + + + | Date | Type | Department | Care Team | Description | +--------+ + + + + | 11/29/ | Off-Site | [facility] [place] | Uche Orozco | End stage renal | | 2016 | Visit | NEPHROLOGY [address] | M, DO [address] | disease (HCC) | | | | [address] | [place], [place] | (Primary Dx) | | | | [place], [place] | [place] | | | | | [address] | [address] | | | | | [phone] | | | +--------+ + + + [...] + | Blood Pressure | 155/80 | 11/29/2015 3:18 PM | | | | | PST | | + + + + + | Pulse | - | - | | + + + + + | Temperature | 36.2 C (97.2 F) | 11/29/2015 3:18 PM | | | | | PST [...] encounter Progress Notes Uche Orozco DO - 12/07/2015 6:29 PM PSTAddendum: I spoke with Herman further by telephone today, about his glycemic control, as his Hba1c was 10.9% this month. He does reiterate that he is taking 110 units of Lantus , daily. I discussed options of changing to split dosing of Lantus, i.e.. 60 units AM, and 50 units, AC supper. I also I discussed having him see and Teacher Of The Hearing Impaired, to look over his diabeti c regimen. After discussion, he is agreeable to changing his Lantus to the former. He will consider t he Endocrine Consult and let us know. : [facility], [place], [place] [facility] tUche avelar DO - 12/07/2015 3:17 PM PST . Subjective: [facility] DIALYSIS NOTE Patient ID: Celso Caro is a 55 y.o. male. 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 He also has T2DM, requiring insulin, anemia secondary to CKD, hyperlipidemia, and Hepatit is C. he is doing better with compliance, and especially his fluid intake especially here at the [facility]. He is very pleasant to work with. He appears punctual. Outpatient Prescriptions Marked as Taking for the 11/29/15 encounter (Off-Site Visit) with Jean Orozco DO Medication Sig Dispense Refill aspirin 81 mg EC tablet Take 81 mg by mouth Daily. atorvaSTATin (LIPITOR) 20 mg tablet Take 1 tablet by mouth Daily. 30 tablet 5 B Wcduddt-Z-Zxcvm Acid (OLEG-TEQUILA RX) 1 MG TABS Take 1 mg by mouth Daily. 30 each 11 Cholecalciferol (VITAMIN D3) 5000 UNITS CAPS Take 2,000 Units by mouth Daily. cinacalcet (SENSIPAR) 30 mg tablet Take 1 tablet by mouth Daily. 90 tablet 4 [DISCONTINUED] doxercalciferol (HECTOROL) 4 MCG/2ML injection Inject 0.5 mcg into the v ein Three times a week. epoetin padilla (EPOGEN, PROCRIT) 10,000 units/mL injection Inject 5,000 Units into the ve in Three times [...] 155/80, temperature 36.2 C (97.2 F). EDW 125 kg Physical Exam Heart: Regular rate and rhythm with no S3, S4, murmur or rub. Lungs: CTA bilaterally. No rales or wheezes. Abdomen: Soft, flat, nontender, normoactive bowel sounds. Extremities: No clubbing, cyanosis, or edema. LAB: BUN 54, Cr 11.4, K+ 5.2, HCO3 17, Ca++ 7.7, PO4 9.3, PTH 646, Alb 3.6, Hbaic 10 .9 %, Hb 10.4, TSat. = 19 %, Ferritin 609, eKT/V = 1.31. Assessment: 1. ESRD--he appears well dialyzed clinically on the current Rx. 2. Hypertension--fairly good control from review of his tx data in [place]. 3. Anemia-- he appears stable on the [facility] EPO , algorithm. TSat is below target. 4. SHPTH-- I reviewed with Herman that his PO4 control is worsening somehow. I reviewed wit h the patient the details of a 1000 mg, daily phosphorus diet. 5. Nutrition-- serum albumin is decreased slightly. He states that his appetite is good. 6. Type 2 DM--suboptimal control. Could consider splitting his dose of Lantus, to possibly ensure there is 24 hour coverage? Other consideration, would be an Endocrine Consult. He is on a fairly high dose of Lantus. 7. Hepatitis C--transaminases have been stable . 8. Hyperlipidemia--Will recheck the lipid profile next quarter. 9. Transplantation-- he is hopeful that he may get a second chance at being listed. 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 Plan: 1. I encourage Herman to work on both his CHO intake, glycemic control, and limiting his PO4 intake. 2. He appears very conscientious about keeping all of his txs. 3. I reinforced the need to time Renvela exactly AC and HS. 4. Will recheck him in 2 weeks. [facility] Uche Orozco DO at 3:43 PM PSTdocumented in this encounter Plan of Treatment Not on filedocumented as of this encounter Visit Diagnoses + + | Diagnosis | + + | End stage renal disease (HCC) - Primary End stage renal disease | + + documented in this encounter"
--- OUTSIDE RECORDS SUMMARY | ~2020-03-04 | XMS | Encounter Summary ---
Demographics + + + | Address | [address] | | | [place] [address] | + + + | Home Phone [...] | Organization | [facility] | | | and [...] Team Providers + +------+ + | Care Foil Cutter Name | Role | Phone | [...] [address] | [address], [place] | | | | | [place] | [address] [place] | | | | | [address] | [address] | | | | | [phone] | | | +--------+ + + + [...]
--- OUTSIDE RECORDS SUMMARY | ~2020-03-04 | XMS | Encounter Summary ---
Demographics + + + | Address | [address] | | | [place] [address] | + + + | Home Phone | | + + + | Preferred Language | Unknown | + + + | Marital Status | | + + + | Bahai Affiliation | 1041 | + + + | Race | Unknown | + + + | Ethnic Group | Unknown | + + + Author + + + | Author | [facility] | | | and Scarana | + + + | Organization | [facility] | | | and [...] Providers + +------+ + | Care Automotive Technician Name | Role | Phone | [...] | renal | PA-C [address]229 | [address] | | | | | disease | [address] | [place], [place] | | | | | ([facility]) | [place] | [address] [facility] | | | | | Procedures | [address] | [place] | | | | | [place] ESRD | [place], | [address] Phone: | | | | | RELATED SVC | [place] | [phone] | | | | | MONTHLY | [address] | Fax: | | | | | 20&/> YR OLD | Phone: | [phone] | | | | | 4/> VISITS | [phone] | | | | | | dialysis | Fax: | | | | | | | [phone] | | + +--------+ + + + + Encounter Details +--------+ + + + + | Date | Type | Department | Care Team | Description | +--------+ + + + + | 06/02/ | Off-Site | [facility] [place] | Uche Orozco | End stage renal | | 2019 | Visit | NEPHROLOGY [address] | M, DO [address] | disease (HCC) | | | | [address] | [place], [address] | (Primary Dx) | | | | [place], [place] | [place] | | | | | [address] | [address] | | | | | [phone] | | | +--------+ + + + [...] + + + | Blood Pressure | 141/73 | 06/02/2019 5:54 PM | | | | | PDT | | + + + + + | Pulse | - | - | | + + + + + | Temperature | 36.2 C (97.2 F) | 06/02/2019 5:54 PM | | | | | PDT [...] encounter Progress Notes Uche Orozco DO - 06/02/2019 9:15 AM PDT Subjective: [facility] DIALYSIS NOTE Patient ID: Celso Caro is a 59 y.o. male. 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 He is seen HD with QB 400 at his left arm AVF, which is clear and dry. He is still working full-time. Denies new complaints. PAST MEDICAL HISTORY: 1. Type 2 DM, [...] CKD/MBD--[facility] [place] [place]. Outpatient Medications Marked as Taking for the 06/02/19 encounter (Off-Site Visit) with Naveen Orozco DO Medication Sig Dispense Refill apixaban (ELIQUIS) 5 mg tablet Take 2.5 mg by mouth 2 times daily. B Vzpucca-J-Mvnuh Acid (OLEG-TEQUILA RX) 1 MG TABS Take 1 mg by mouth Daily. 30 each 11 Cholecalciferol (VITAMIN D3) 5000 UNITS CAPS Take 5,000 Units by mouth Daily. cinacalcet (SENSIPAR) 30 mg tablet Take 30 mg by mouth Once a week. doxercalciferol (HECTOROL) 2 mcg/mL injection Inject 6 [...] 1 capsule by mouth Daily. 30 capsule [DISCONTINUED] omeprazole (PRILOSEC) 20 mg capsule Take 20 [...] Unknown Fenofibrate Acidosis Metformin Diarrhea Objective: BP 141/73 | Temp 36.2 C (97.2 F) EDW 121 kg Physical Exam Heart: Regular rate and rhythm with no S3, S4, murmur or rub. Lungs: CTA in all valle. No rales or wheezes. Abdomen: Soft, flat, nontender, normoactive bowel sounds. Extremities: 1+ edema, no rash, AVF at left arm is clear and dry. LAB: BUN 86, Cr 10.7, K+ 5.4, HCO3 24, albumin 4.0, Ca++ 8.4, phosphorus 7.0, PTH 1043, H bA1c 7.1%, Hb 11.4, T sat 14%, ferritin 702, spKT/V = 1.80 Assessment: 1. ESRD--he appears well dialyzed on 4 hours 45 minutes, and 20 1H, QB 450, QD 600, thrice weekly. 2. Hypertension-- good control from review of his deep treatment data in [place].. 3. Anemia secondary to CKD--Hb is above target. Will hold his EPO until hemoglobin is <11 .0 g/dl. He would benefit from Venofer in the near future. 4. Nutrition--his appetite is excellent. 5. 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 I reviewed with him features of a <1000 mg P04 restriction. 6. Type 2 DM--diabetic control is improved. 7. Hepatitis C--historically in remission. 8. Hyperlipidemia--we will continue his rosuvastatin therapy.9. Transplantation--he would need complete resolution of the foot ulcers in the left foot, before being listed. Plan: 1. He appears compliant with his rosuvastatin VELPHORO and Sensipar. 2. Encouraged him to try and restrict dietary P04 is much as possible to improve his phosp horus control. He is improved versus last month. 3. Blood pressure control is improved at the current dry weight. 4. Will resume his EPO when the Hb <11.0 g/dl. Otherwise, he appears stable on his curren t Rx. : [facility] Toby Schuster DPM documented in thi s [...]
--- OUTSIDE RECORDS SUMMARY | ~2020-03-04 | XMS | Encounter Summary ---
Demographics + + + | Address | [address] | | | [place] [address] | + + + | Home Phone [...] | [facility] | | [...] Team Providers + +------+ + | Care Snuff Grinder Name | Role | Phone | + +------+ + PCP | Unavailable | + +------+ + Encounter Details +--------+ + + + + | Date | Type | Department | Care Team | Description | +--------+ + + + + | 11/05/ | Documentati | [facility] [place] | Lexi Kuo W, | | | 2014 | on | NEPHROLOGY [address] | [address] | | | | | [address] | [address] [place] | | | | | [place] | [place] [address] | | | | | [address] | [phone] | | | | | [phone] | | | +--------+ + + + [...] this encounter Progress Notes Dedra Camara - 11/05/2014 9:48 AM PSTManually faxed a provider response to an elevated lab to [facility] on 11/05/14. documented in this encounter Plan of Treatment Not on filedocumented as of this encounter Visit Diagnoses Not on filedocumented in this encounter"
--- OUTSIDE RECORDS SUMMARY | ~2020-03-04 | XMS | Encounter Summary ---
Demographics + + + | Address | [address] | | | [place] [address] | + + + | Home Phone [...] | Organization | [facility] | | | [...] Team Providers + +------+ + | Care Training And Development Rep Name | Role | Phone | + +------+ + PCP | Unavailable | + +------+ + Encounter Details +--------+ + + + + | Date | Type | Department | Care Team | Description | +--------+ + + + + | 11/07/ | Orders Only | [facility] [place] | [place], | Unspecified | | 2012 | | NEPHROLOGY [address] | [place] [address] | hypertensive kidney | | | | [address] | [address], [place] | disease with chronic | | | | [place], [place] | [address] [place] | kidney disease | | | | [address] | [address] | stage I through | | | | [phone] | | stage IV, or | | | | | | unspecified (Primary | | | | | | Dx); Chronic kidney | | | | | | disease (CKD), | | | | | | stage V (HCC) | +--------+ + + + + [...] this encounter Progress Shelley Bui RN - 11/07/2012 4:24 PM PSTLab order for nephrology appt on 11/21/12 faxed to [employer]. 4: 29 PM PSTdocumented in this encounter Plan of Treatment Not on filedocumented as of this encounter Visit Diagnoses + + | Diagnosis | + + | Unspecified hypertensive kidney disease with chronic kidney disease stage I through | | stage IV, or unspecified(403.90) - Primary Unspecified hypertensive kidney disease with | | chronic kidney disease stage I through stage IV, or unspecified | + + | Chronic kidney disease (CKD), stage V (HCC) Chronic kidney disease, Stage V | + + documented in this encounter"
--- OUTSIDE RECORDS SUMMARY | ~2020-03-04 | XMS | Encounter Summary ---
Demographics + + + | Address | [address] | | | [place] [address] | + + + | Home Phone [...] Organization | [facility] | [...] Team Providers + +------+ + | Care Non Food Receiving Clerk Name | Role | Phone | + [...] | | | | | Procedures | [address] | [place] | | | | | [place] OFFICE | Phone: | [phone] Phone: | | | | | OUTPATIENT | [phone] | [phone] | | | | | VISIT 25 | Fax: | Fax: | | | | | MINUTES | [phone] | [phone] | +--------+--------+ + + + + Encounter [...] | [address] | [place], [address] | (Primary Dx); Type | | | | [place], [place] | [place], [place] | II or unspecified | | | | [address] | [address] | type diabetes | | | | [phone] | | mellitus with renal | | [...] DO - 02/06/2015 4:20 PM PDT Subjective: [facility] DIALYSIS NOTE Patient ID: Celso Caro is a 54 y.o. male. HPI Comments: Monthly dialysis visit for this 54 YO male with ESRD secondar y to diabetic nephropathy, who is seen on outpatient HD, at the [facility], [place] . He also has T2DM, requiring insulin, [...] by mouth Daily. 30 tablet 5 B Dpjahlt-W-Aumvw Acid (OLEG-TEQUILA RX) 1 MG TABS Take [...] still schedule a liver Bx, per last [facility] correspondence. 8. Hyperlipidemia--Will recheck the lipid [...] rechecked i n 2 weeks. CC: [facility], [facility] documented in thi s encounter [...]
--- OUTSIDE RECORDS SUMMARY | ~2020-03-04 | XMS | Encounter Summary ---
Demographics + + + | Address | [address] | | | [place] [address] | + + + | Home Phone [...] | Organization | [facility] [...] Team Providers + +------+ + | Care Advance Agent Name | Role | Phone | + [...] | | | disease | NW | [place], [place] | | | | | ([facility]) | [place] | [address] | | | | | Procedures | [address] | [place] | | | | | [place] OFFICE | [facility] | [address] Phone: | | | | | OUTPATIENT | [place] | [phone] | | | | | VISIT 25 | [address] | Fax: | | | | | MINUTES | Phone: | [phone] | | | | | dialysis | [phone] | | | | | | | Fax: | | | | | | | [phone] | | +--------+--------+ + + + + Encounter Details +--------+ + + + + | Date | Type | Department | Care Team | Description | +--------+ + + + + | 08/06/ | Off-Site | [facility] [place] | Uche Orozco | End stage renal | | 2017 | Visit | NEPHROLOGY [address] | M, DO [address] | disease (HCC) | | | | [address] | [place], [place] [address] | (Primary Dx) | | | | [place] | [place] | | | | | [address] | [address] | | | | | [phone] | | | +--------+ + + + [...] + + + | Blood Pressure | 146/65 | 08/06/2017 4:56 PM | | | | | PDT | | + + + + + | Pulse | - | - | | + + + + + | Temperature | 36.4 C (97.5 F) | 08/06/2017 4:56 PM | | | | | PDT [...] in this encounter Progress Notes Uche Orozco, DO - 08/06/2017 9:30 AM PDT Subjective: [facility] DIALYSIS NOTE Patient ID: Celso Sutton Case is a 57 y.o. male. HPI Comments: Follow-up for this pleasant 57 YO male with ESRD secondary t o diabetic nephropathy. He appears to gotten over his viral URI. He is working closely on his nutrition. He also has a History of T2DM, requiring insulin, anemia secondary to CKD, hyperlipidemia, and Hepatitis C. Current Outpatient Prescriptions: aspirin 81 mg EC tablet, Take 81 mg by mouth Daily., Disp: , Rfl: atorvaSTATin (LIPITOR) 20 mg tablet, Take 1 tablet by mouth Daily., Disp: 30 tablet, R fl: 5 B Irslvmi-Y-Vlbec Acid (OLEG-TEQUILA RX) 1 MG TABS, Take 1 mg by mouth Daily., Disp: 30 e ach, Rfl: 11 calcium acetate (PHOSLO) 667 mg capsule, Take 1,334 mg by mouth 3 times daily (with me als)., Disp: , Rfl: Cholecalciferol (VITAMIN D3) 5000 UNITS CAPS, Take 2,000 Units by mouth Daily., Disp: , Rfl: cinacalcet (SENSIPAR) 60 MG tablet, Take 1 tablet by mouth Daily., Disp: 30 tablet, Rf l: doxercalciferol (HECTOROL) 2 mcg/mL injection, Inject 5 mcg into the vein Three times a week., Disp: , Rfl: epoetin padilla (EPOGEN,PROCRIT) 3,000 units/mL injection, Inject 2,200 Units under the s kin Three times a week., Disp: , Rfl: furosemide (LASIX) 80 mg tablet, Take 80 mg by mouth Daily., Disp: , Rfl: glimepiride (AMARYL) 1 mg tablet, Take 1 mg by mouth every morning (before breakfast). , Disp: , Rfl: insulin glargine (LANTUS) 100 units/mL injection (vial), Inject 110 Units under the sk in nightly., Disp: 33 mL, Rfl: 11 lisinopril (PRINIVIL,ZESTRIL) 40 MG tablet, Take 40 mg by mouth Daily., Disp: , Rfl: metoprolol (TOPROL-XL) 100 MG 24 hr tablet, Take 100 mg by mouth Daily., Disp: , Rfl: omeprazole (PRILOSEC) 20 mg capsule, Take 20 mg by mouth every morning (before break)., Disp: , Rfl: sitaGLIPtin (JANUVIA) 100 mg tablet, Take 25 mg by mouth Daily., Disp: , Rfl: Allergies Allergen Reactions Amlodipine Besylate Unknown Metformin Diarrhea Objective: BP 146/65 | Temp 36.4 C (97.5 F) EDW 118.5 kg Physical Exam Heart: Regular rate and rhythm with no S3, S4, murmur or rub. Lungs: CTA bilaterally. No rales or wheezes. Abdomen: Soft, flat, nontender, normoactive bowel sounds. Extremities: No clubbing, cyanosis, or edema. LAB: BUN 39, Cr 9.0, K+ 4.3, CO2 21, Ca++ 8.9, HP04 5.3, albumin 3.6, PTH 637, TSat, not done, hemoglobin 10.8, eKT/V = 1.17 Assessment: 1. ESRD-- his current adequacy is below target. He may need a repeat F gram? 2. Hypertension-- good control at current dry weight. 3. Anemia secondary to CKD-- Hb appears stable on a maintenance dose of EPO. Will reche ck his iron stores next quarter. 4. SHPTH-- his PTH is above target but he has been doing better recently with his P04 rest riction. He also is doing better about compliance with his Renvela. 5. Nutrition--I encouraged Herman to maximize his daily intake of high biological value prot ein. 6. Type 2 DM-- Will recheck his HbA1c next month. 7. Hepatitis C--transaminases have been stable . 8. Hyperlipidemia--on statin Rx. 9. Transplantation--work up in progress. Plan: 1. Will schedule an F- Gram in the next 2 weeks to screen for venous stenosis. 2. Will recheck his HbA1c and recheck his iron profile next month. 3. Monthly lab was reviewed with the patient. Will recheck him in 2 weeks. : [facility] Monica Cornejo MD documented in thi s encounter Plan of Treatment Not on filedocumented as of this encounter Visit Diagnoses + + | Diagnosis | + + | End stage renal disease (HCC) - Primary End stage renal disease | + + documented in this encounter"
--- OUTSIDE RECORDS SUMMARY | ~2020-03-04 | XMS | Encounter Summary ---
Demographics + + + | Address | [address] | | | [place] [address] | + + + | Home Phone | | + + + | Preferred Language | Unknown | + + + | Marital Status | | + + + | Latter-Day Affiliation | 1041 | + + + | Race | Unknown | + + + | Ethnic Group | Unknown | + + + Author + + + | Author | [facility] | | | and Scarana | + + + | Organization | [facility] | | | and [...] Team Providers + +------+ + | Care Precision Machining Instructor Name | Role | Phone | + +------+ + PCP | Unavailable | + +------+ + Encounter Details +--------+ + + + + | Date | Type | Department | Care Team | Description | +--------+ + + + + | 01/12/ | Documentati | [facility] [place] | Uche Orozco | | | 2013 | on | NEPHROLOGY [address] | M, DO [address] | | | | | [address] | [place], [address] | | | | | [place] | [place] | | | | | [address] | [address] | | | | | [phone] | | | +--------+ + + + [...] Progress Notes Uche Orozco DO - 03/03/2014 9:37 AM PDTNEPHROLOGY He is seen on HD, tolerating it well with QB 400 at the left arm AVF. PE: BP146/82 T 96.5 EDW 120 kg Lungs: no rales, no wheezes. Abd: NABS. Ext: no edema. Plan 1. Will continue the current Rx. 2. MANAGER PLANT = < 200 at current QB. documented in thi s encounter Plan of Treatment Not on filedocumented as of this encounter Visit Diagnoses Not on filedocumented in this encounter"
--- OUTSIDE RECORDS SUMMARY | ~2020-03-04 | XMS | Encounter Summary ---
Demographics + + + | Address | [address] | | | [place] [address] | + + + | Home Phone | | + + + | Preferred Language | Unknown | + + + | Marital Status | Single | + + + | Hinduism Affiliation | Unknown | + + + | Race | or | + + + | Ethnic Group | Not or | + + + Author + + + | Author | [facility] | + + + | Organization | [facility] | + + + [...] Team Providers + +------+ + | Care Shirt Bander Name | Role | Phone | + [...] Closed) | | | | [address] [place], | [place], [place] | | | | | [place] [address] | [address] | | | | | [phone] | | | +--------+ + + + [...]
--- OUTSIDE RECORDS SUMMARY | ~2020-03-04 | XMS | Encounter Summary ---
Demographics + + + | Address | [address] | | | [place] [address] | + + + | Home Phone | | + + + | Preferred Language | Unknown | + + + | Marital Status | | + + + | Jewish Affiliation | 1041 | + + + | Race | Unknown | + + + | Ethnic Group | Unknown | + + + Author + + + | Author | [facility] | | | and Scarana | + + + | Organization | [facility] | | | and [place] [...] Team Providers + +------+ + | Care Tax Investigator Name | Role | Phone | [...] | [address] | [place], [address] | | | | | [place], [place] | [place], [place] | | | | | [address] | [address] | | | | | [phone] | | | +--------+ + + + [...]
--- OUTSIDE RECORDS SUMMARY | ~2020-03-04 | XMS | Encounter Summary ---
Demographics + + + | Address | [address] | | | [place] [address] | + + + | Home Phone [...] Team Providers + +------+ + | Care Soldering Technician Name | Role | Phone | [...] | [address] | [place], [address] | | | | | [place] | [place] | | | | | [phone] | [phone] | | | | | [phone] | | | +--------+ + + + [...] documented as of this encounter Progress Notes cUhe Orozco DO - 06/17/2014 3:50 PM PDTNEPHROLOGY Addendum I reviewed Celso' Hba1c , which was elevated at 11.8%. He is on a high basal dose of Akhil tus, + on Januvia. Therefore, will add glimepiride 1mg, daily to his regimen. This was conveyed to him via th e admission discharge rn, Pam, at the [facility], as he could not be reached by phone. E-Rxd to Chao Rosales. [facility], [facility], [facility] documented in this encounter Plan of Treatment Not on filedocumented as of this encounter Visit Diagnoses Not on filedocumented in this encounter"
--- OUTSIDE RECORDS SUMMARY | ~2020-03-04 | XMS | Encounter Summary ---
Demographics + + + | Address | [address] | | | [place] [address] | + + + | Home Phone | | + + + | Preferred Language | Unknown | + + + | Marital Status | | + + + | Roman Catholic Affiliation | 1041 | + + + | Race | Unknown | + + + | Ethnic Group | Unknown | + + + Author + + + | Author | [facility] | | | and Scarana | + + + | Organization | [facility] | | | and [...] Team Providers + +------+ + | Care Home Health Clinician Name | Role | Phone | + [...] [place] | | | | | ([facility]) | [place] | [address] | | | | | Procedures | [address] | [place] | | | | | [place] OFFICE | Phone: | [phone] Phone: | | | | | OUTPATIENT | [phone] | [phone] | | | | | VISIT 25 | Fax: | Fax: | | | | | MINUTES | [phone] | [phone] | +--------+--------+ + + + + Encounter Details +--------+ + + + + | Date | Type | Department | Care Team | Description | +--------+ + + + + | 10/04/ | Off-Site | [facility] [place] | Uche Orozco | End stage renal | | 2015 | Visit | NEPHROLOGY [address] | M, DO [address] | disease (HCC) | | | | [address] | [place], [place] [address] | (Primary Dx); | | | | [place], [place] | [place] | Essential | | | | [address] | [address] | hypertension | | | | [phone] | | | +--------+ + + + [...] + + + | Blood Pressure | 150/78 | 10/04/2015 10:19 AM | | | | | PST | | + + + + + | Pulse | - | - | | + + + + + | Temperature | 36.7 C (98.1 F) | 10/04/2015 10:19 AM | | | | | PST [...] encounter Progress Notes Uche Orozco DO - 10/05/2015 10:21 AM PST Subjective: [facility] DIALYSIS NOTE Patient ID: Celso Caro is a 55 y.o. male. HPI Comments: Monthly dialysis visit for this 55 YO male with ESRD secondar y to diabetic nephropathy, who is seen on outpatient HD, at the [facility] . He also has T2DM, requiring insulin, anemia secondary to CKD, hyperlipidemia, and Hepatit is C. he is doing better with compliance, and especially his fluid intake especially here at the [facility]. He is very pleasant to work with. He appears punctual. Outpatient Prescriptions Marked as Taking for the 10/04/15 encounter (Off-Site Visit) with Uche Orozco DO Medication Sig Dispense Refill aspirin 81 mg EC tablet Take 81 mg by mouth Daily. atorvaSTATin (LIPITOR) 20 mg tablet Take 1 tablet by mouth Daily. 30 tablet 5 B Xprgxes-V-Aarsu Acid (OLEG-TEQUILA RX) 1 MG TABS Take [...] Besylate Unknown Metformin Diarrhea Objective: Blood pressure 150/78, temperature 36.7 C (98.1 F). EDW 125 kg Physical Exam Heart: Regular rate and rhythm with no S3, S4, murmur or rub. Lungs: CTA bilaterally. No rales or wheezes. Abdomen: Soft, flat, nontender, normoactive bowel sounds. Extremities: No clubbing, cyanosis, or edema. LAB: BUN 55, Cr 11.4, K+ 4.7, HCO3 21, Ca++ 7.8, phosphorus 8.5, PTH 548 , albumin 3.8, H b 11.1, TSat = 29%, ferritin 816, eKT/V = 1.35. Assessment: 1. ESRD--overall, he appears stable on 4 hours, 2K +, A21S, QB 450, QD 600, thrice weekly. 2. Hypertension--good control from review his treatment data in [place]. 3. Anemia-- he appears be responding well to the current EPO algorithm. Will decrease his EPO by 25% to target his Hb 10-11 g/dl. His iron stores appear satisfactory. 4. SHPTH-- I encouraged Herman to try to time his Renvela exactly AC&HS. Will not increase the Hectorol until serum phosphorus <7.0 mg/dl. 5. Nutrition-- his serum albumin and appetite have been stable on his current Rx 6. Type 2 DM--recheck his HbA1c next month. 7. Hepatitis C--transaminases have been stable . 8. Hyperlipidemia--Will recheck the lipid profile next quarter. 9. Transplantation-- he is hopeful that he may get a second chance at being listed. 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 Plan: 1. Will recheck his HbA1c, PTH next month. 2. I encouraged Herman to time the 1600 mg Renvela capsules, exactly AC&HS. 3. His adequacy, blood pressure, and ECF volume appears stable on his current Rx. Will re check him in 2 weeks. [facility] by Uche Orozco DO at 10:39 AM PSTdocumented in this encounter Plan of Treatment Not on filedocumented as of this encounter Visit Diagnoses + + | Diagnosis | + + | End stage renal disease (HCC) - Primary End stage renal disease | + + | Essential hypertension Unspecified essential hypertension | + + documented in this encounter"
--- OUTSIDE RECORDS SUMMARY | ~2020-03-04 | XMS | Encounter Summary ---
Demographics + + + | Address | [address] | | | [place] [address] | + + + | Home Phone [...] Organization | [facility] | | [...] Team Providers + +------+ + | Care Caving Guide Name | Role | Phone | + [...] | Nephrology | Diagnoses | Camille, | [place], | | | | | Anemia in | MD Frances | Uche Pena DO | | | | | chronic | [address] | [address] | | | | | kidney | [address] [place] | [place] | | | | | disease(285. | [place] | [address] | | | | | 21) End | [address] | [place] | | | | | stage renal | Phone: | [phone] Phone: | | | | | disease | [phone] | [phone] | | | | | (HCC) | Fax: | Fax: | | | | | Unspecified | [phone] | [phone] | | | | | essential | | | | | | | hypertension | | | | | | | Procedures | | | | | | | [place] OFFICE | | | | | | | OUTPATIENT | | | | | | | VISIT 25 | | | | | | | MINUTES | | | | | | | 06/18>PEND | | | | | | | [facility] | | | | | | | AUTH FAX. | | | +--------+--------+ + + + + Encounter Details +--------+ + + + + | Date | Type | Department | Care Team | Description | +--------+ + + + + | 06/01/ | Off-Site | [facility] [place] | Uche Orozco | End stage renal | | 2013 | Visit | NEPHROLOGY [address] | M, DO [address] | disease (HCC) | | | | [address] | [place], [place] | (Primary Dx); Type | | | | [place] | [place] | II or unspecified | | | | [address] | [address] | type diabetes | | | | [phone] | | mellitus with renal | | [...] + + + | Blood Pressure | 126/73 | 06/01/2014 5:41 PM | | | | | PDT | | + + + + + | Pulse | - | - | | + + + + + | Temperature | 36.6 C (97.9 F) | 06/01/2014 5:41 PM | | | | | PDT [...] encounter Progress Notes Uche Orozco DO - 06/06/2014 5:42 PM PDT Subjective: [facility] DIALYSIS NOTE Patient ID: CELSO CARO is a 54 y.o. male. HPI Comments: Monthly dialysis visit for this 54 YO male with ESRD secondar y to diabetic nephropathy, who is seen on outpatient HD at the [facility]. He also has T2DM, requiring insulin, anemia secondary to CKD, hyperlipidemia, Hepatitis C, m orbid obesity and a question of a right renal mass on prior US. He did skip 1 tx last we ek. He does not provide any BG logs, but is very pleasant on rounds. Outpatient Prescriptions Marked as Taking for the 06/01/14 encounter (Off-Site Visit) with Jean Orozco DO Medication Sig Dispense Refill aspirin 81 mg EC tablet Take 81 mg by mouth Daily. atorvaSTATin (LIPITOR) 20 mg tablet Take 1 tablet by mouth Daily. 30 tablet 5 B Esgkpyd-A-Zdcxw Acid (OLEG-TEQUILA RX) 1 MG TABS Take 1 mg by mouth Daily. 30 each 11 calcium acetate (PHOSLO) 667 mg capsule Take 2 capsules by mouth 3 times daily (with me als). 180 capsule 6 calcium carbonate (TUMS) 500 mg chewable tablet [...] Diarrhea Review of Systems Objective: Blood pressure 126/73, temperature 36.6 C (97.9 F). EDW 119.5 kg Physical Exam Heart: Regular rate and rhythm with no S3, S4, murmur or rub. Lungs: CTA bilaterally. No rales or wheezes. Abdomen: Soft, flat, nontender, normoactive bowel sounds. Extremities: No clubbing, cyanosis, or edema. (+) well-developed AVF, left arm with QB = 4 00. LAB: BUN 45, Cr 9.7, K+ 4.0, HCO3 23, Ca++ 8.4, PO4 7.5, PTH 515, Alb 3.6, TC 251, HD L 31, LDL *, TG 1026, Hbaic 11.8 %, Hb 11.1, TSat. = 16 %, Ferritin 694, eKT/V = 1.28. Assessment: 1. ESRD--he appears well dialyzed on 2K+, QB 400, QD 600, F160, thrice weekly. 2. Hypertension--stable. 3. Anemia--His Hb appears stable on the current EPO anemia algorithm. TSat appears to be t redning downward. 4. SHPTH--his PO4 control is worsening. Also, his PTH is very high despite his high sainz H ectorol. Therefore, will add Sensipar 30 mg , daily to his regimen. He was given an Rx for this. 5. Nutrition--his serum albumin is decresed slightly, however, his appetite is fairly good . 6. Type 2 DM--suboptimal control. Will discuss additional options , eg. adding glimepiri de to his regimen, vs increasing Januvia to 50 mg? Am leery of further insulin and its anabolic effects? 7. Hepatitis C--stable. 8. Hyperlipidemia--suboptimal control. Will need to verify with him that he is in fact , taking his lipitor? Also, subopotimal glycemic control may be hampering his lipid control? 9. Transplantation--he has not thought a great deal about this, but he is interested in ex ploring it further. 10. Right renal mass, MRI, 10/2012--suspicious for complex, "proteinaceous cysts, " on MRI at that time. Plan: 1. Unfortunately, I noticed the Hba1c after I had left the clinic. Will attempt to reach him by phone. 2. After discussion, he is agreeable to starting Sensipar 30 mg, daily for the PTH. I al so discussed the need for better PO4 control, and the Renal RD , visited with him a great deal. 3. Otherwise, adequacy appears stable. I emphasized the need for 3 txs per week to minimi ze mortality, morbidity. CC: [facility] documented in thi s encounter Plan of [...]
--- OUTSIDE RECORDS SUMMARY | ~2020-03-04 | XMS | Encounter Summary ---
Demographics + + + | Address | [address] | | | [place] [address] | + + + | Home Phone | | + + + | Preferred Language | Unknown | + + + | Marital Status | | + + + | Jew Affiliation | 1041 | + + + | Race | Unknown | + + + | Ethnic Group | Unknown | + + + Author + + + | Author | [facility] | | | and Scarana | + + + | Organization | [facility] | | | and [...] Providers + +------+ + | Care Applications Developer Name | Role | Phone | [...] | | | disease | [address] | [place], [place] | | | | | ([facility]) | [place] | [address] | | | | | Procedures | [address] | [place] | | | | | [place] OFFICE | [facility] | [address] Phone: | | | | | OUTPATIENT | OR | [phone] | | | | | VISIT 25 | [address] | Fax: | | | | | MINUTES | Phone: | [phone] | | | | | dialysis | [phone] | | | | | | | Fax: | | | | | | | [phone] | | +--------+--------+ + + + + [...] | [address] | [place], [address] | (Primary Dx) | | | | [place] | [place] | | | | | [address] | [address] | | | | | [phone] | | | +--------+ + + + [...] Take 81 mg by mouth Daily. 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 2. Monthly lab was reviewed with the patient. 3. Will recheck his A1c, iron profile next month. 4. Monthly lab was reviewed with the patient. : [facility] documented in thi s encounter Plan of Treatment Not on filedocumented as of this encounter Visit Diagnoses + + | Diagnosis | + + | End stage renal disease (HCC) - Primary End stage renal disease | + + documented in this encounter"
--- OUTSIDE RECORDS SUMMARY | ~2020-03-04 | XMS | Encounter Summary ---
Demographics + + + | Address | [address] | | | [place] [address] | + + + | Home Phone [...] Organization | [facility] | [...] Team Providers + +------+ + | Care Student Accounts Manager Name | Role | Phone | [...] [address] | [address], [place] | V ([facility]) (Primary | | | | [place], [place] | [address] [place] | Dx); Unspecified | | | | [address] | [address] | hypertensive kidney | | | | [phone] | | disease with chronic | | [...] documented as of this encounter Progress Notes Shelley Palomino RN - 05/08/2013 1:58 PM PDTLab order for nephrology appt on 05/19/13 faxed to [facility]. Patient's provider requested patient do his labs today while he i s in her office, so a protein/creatinine ratio was substituted for creatinine clearance and 24 hour protein. documented in this encounter Plan of Treatment [...]
--- OUTSIDE RECORDS SUMMARY | ~2020-03-04 | XMS | Encounter Summary ---
Demographics + + + | Address | [address] | | | [place] [address] | + + + | Home Phone [...] + | Organization | [facility] | | | and [place] [...] Providers + +------+ + | Care Licensed Nuclear Operator Name | Role | Phone | [...] [address] | [address], [place] | | | | | [place] | [address] [place] | | | | | [address] | [address] | | | | | [phone] | | | +--------+ + + + [...]
--- OUTSIDE RECORDS SUMMARY | ~2020-03-04 | XMS | Encounter Summary ---
Demographics + + + | Address | [address] | | | [place] [address] | + + + | Home Phone [...] + + | Organization | [facility] | | | and [place] | [...] Team Providers + +------+ + | Care Fitter Machinist Name | Role | Phone | + +------+ + PCP | Unavailable | + +------+ + Encounter Details +--------+ + + + + | Date | Type | Department | Care Team | Description | +--------+ + + + + | 04/30/ | Abstract | [facility] [place] | Lexi Kuo W, | | | 2017 | | NEPHROLOGY [address] | [address] [place] | | | | | [address] | [place] [address] [place] | | | | | [place] | [place] [address] | | | | | [address] | [phone] | | | | | [phone] | | | +--------+ + + + [...]
--- OUTSIDE RECORDS SUMMARY | ~2020-03-04 | XMS | Encounter Summary ---
Demographics + + + | Address | [address] | | | [place] [address] | + + + | Home Phone | | + + + | Preferred Language | Unknown | + + + | Marital Status | | + + + | Yarsanism Affiliation | 1041 | + + + | Race | Unknown | + + + | Ethnic Group | Unknown | + + + Author + + + | Author | [facility] | | | and Scarana | + + + | Organization | [facility] | | | [...] Team Providers + +------+ + | Care Prn Occupational Therapist Name | Role | Phone | + [...] V (HCC) | [place] | [place] [address] | | | | | Procedures | [address] | Phone: | | | | | [place] | Phone: | [phone] | | | | | ANASTOMOSIS, | [phone] | Fax: | | | | | [address] SITE | Fax: | [phone] | | | | | | [phone] | | +--------+ + + + + [...] [place] | [address] | V ([facility]) (Primary | | | | [address] | [place] [address] | Dx) | | | | [phone] | [phone] | | | | | | | [...] ? Frances Obrien MD Who is your Principal Architectural Firm/Kidney Specialist ? Dr. Navas When was the [...] Has DM, no hand pains. Works in [employer]. RIGHT hand dominant. Date 07/02/2013 done at [facility] CHEST PORTABLE IMPRESSION: 1. RIGHT CENTRAL [...] PATIENT NAME : CELSO HERNANDEZ CASE EQUIPMENT: SonBurudaConcert-HireWheelo with 10-5 mHertz probe. INDICATIONS: Ddialysis access [...] hand pain, failure for vein to dilate, [place] stroke and was explained. No guarantees given or implied. Patient under stands and wishes to proceed. Return to clinic in One week after surgery. Artem Angelo MD CC: Frances Obrien MD documente d in this encounter Plan [...]
--- OUTSIDE RECORDS SUMMARY | ~2020-03-04 | XMS | Encounter Summary ---
Demographics + + + | Address | [address] | | | [place] [address] | + + + | Home Phone [...] Organization | [facility] | | [...] Team Providers + +------+ + | Care Epic Ambulatory Analysts Name | Role | Phone | + [...] | | | [address] | [place], [place] [address] | disease with chronic | | | | [place] | [place] | kidney disease | | | | [address] | [address] | stage I through | | | | [phone] | | stage IV, or | | [...] is seen on outpatient HD at the [facility]. He also has T2DM, requiring insulin, [...] by mouth Daily. 30 tablet 5 B Adrphjn-H-Rktvu Acid (OLEG-TEQUILA RX) 1 MG TABS Take [...] has an excellent appetite. 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 3. Will continue to hold EPO until Hb is <11.0 g/dl. 4. I appreciate Dr. Angelo's persistence with developing his [place] AVF. CC: Artem Angelo MD [facility] [...]
--- OUTSIDE RECORDS SUMMARY | ~2020-03-04 | XMS | Encounter Summary ---
Demographics + + + | Address | [address] | | | [place] [address] | + + + | Home Phone [...] + | Organization | [facility] Krish[facility]thy [...] Team Providers + +------+ + | Care Cheese Production Supervisor Name | Role | Phone | [...] Description | +--------+---------+ + + + | 01/10/ | Surgery | [facility] | Cristina Sahni, | AMPUTATION TOE | | 2019 | | MED CTR OR INTRA OP | DPM [address] | | | | | [address] | [place] | | | | | [place] | [address] | | | | | [address] | [phone] | | | | | [phone] | | | +--------+---------+ + + + [...] + subjective fever/chills. Pt initially went to [facility] and was then sent t o the [...] MRI and radiographs August 2018 TECHNIQUE: The [facility] 3T MR sequences of the left foot [...] Dr. Cristina Sahni as well as Declan kraus wound care through Home health PENDING STUDIES: Bone culture and sensitivity of the wound culture CODE STATUS and GOALS OF CARE Code status at discharge FULLCODE Greater than 30 minutes was spent on discharge and coordination of post hospital care. 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 Best possible HEAT PLANT SPECIALIST medication list after pharmacy review: PT [...] by mouth Daily. Taking 30 each C darrin Osei FackenthallTERRY Cholecalciferol (VITAMIN D3) 5000 UNITS CAPS Take [...] by mouth Daily. Taking Differently Historical ProviderMD ibuprofen (ADVIL, MOTRIN) 200 mg tablet Take 400 mg by mouth Twice daily as needed for Pa in. Taking Historical ProviderMD insulin glargine (LANTUS) 100 [...] performed and electronically signed by Lilian Kinney, Hydro Plant Technician 01/11/2019 13:17 Reviewed by Vale Rojas PharmD 01/11/2019 14:39 each, Lexi Banks MD - 01/11/2019 10:15 AM PDT [facility] NEPHROLOGY progress note Patient: Celso Caro [...] Lexi Kuo MD Electronically signed: 01/11/2019 10:16 [facility] NEPHROLOGY Cristina Sotelo DPM - 01/11/2019 9:11 AM PDT Foot & Ankle Surgery Progress Note Cristina Sahni DPM Celso Sutton Case Age/Gender 58 y.o. male Location [facility] MEDICAL Attending Estiven Ramirez MD Hosp Day [...] Value Units Date/Time Culture, Wound, Smear, w/Anaerobe [[id number]] Collected: 01/10/191529 Order Status: Sent Lab Status: In process Updated: 01/10/191610 Specimen: Tissue from Toe, Fourth, Left Narrative: The following orders were created for panel order Culture, Wound, Smear, w/Anaerobe. Procedure Abnormality Status --------- ------ Culture, Wound, Smear[[id number]] Normal Preliminary result Culture, Anaerobic[[id number]] In process Please view results for these tests on the individual orders. Culture, Wound, Smear [[id number]] (Normal) Collected: 01/10/191529 Order Status: Completed Lab Status: Preliminary result Updated: 01/11/19 0846 Specimen: Tissue from Toe, Fourth, Left Culture No growth to date Gram Stain Result 2+ White Blood Cells No squamous epithelial cells seen No organisms seen Culture, Anaerobic [[id number]] Collected: 01/10/191529 Order Status: Resulted Lab Status: In process Updated: 01/10/191610 Specimen: Tissue from Toe, Fourth, Left Assessment: Celso Sutton Case is a 58 y.o. male S/p toe amputation for osteomyelitis. Currently with imp roved pain and swelling after procedure. Plan: Dressing may be left intact until post op appointment on at [facility]. Okay to place weight on [...] Case : 1960: Age: 58 y.o. MedRec: [id number] PCP: Cristina Quinones PA-C Admission date: 01/08/2019 [...] too. May get his wound care at [facility] area too after Disc harged. 2. [...] : History of the presenting illness :Celso mota 58 y.o. 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 Schusetr) and 6 weeks of Vanc/Unasyn who present ed with 2 day h/o left foot swelling/pain/erythema, left fourth toe wound with minimal drain age. + subjective fever/chills. Pt initially went to [facility] and was then sent t o [...] urinary obstruction; Diabetes mellitus, type 2 ([facility]) (); Diabetic foot ulcer ([facility]) (01/01/12); ESRD (end stage renal disease) on dialysis ([facility]) ( 1999); Heart murmur; Hepatitis C (2006); Hyperlipidemia; Hypertension (2001); Obesity; Parox ysmal atrial flutter ([facility]); Recurrent UTI; and Vitamin D deficiency. . [...] Procedure Component Value Units Date/Time Clostridium difficile [[id number]] (Normal) Collected: 01/10/19 0152 Order Status: Completed Lab Status: Final result Updated: 01/10/19 0504 Specimen: Stool from Stool Clostridium difficile DNA Negative Culture, MRSA [[id number]] (Normal) Collected: 01/09/19 0600 Order Status: Completed Lab Status: Final result Updated: 01/10/19 0821 Specimen: Tissue from Leg, Left Culture Negative for MRSA by chromogenic agar method Culture, Wound, Smear, w/Anaerobe [[id number]] Collected: 01/09/19599 Order Status: Sent Lab Status: In process Updated: 01/09/19637 Specimen: Tissue from Toe, Fourth, Left Narrative: The following orders were created for panel order Culture, Wound, Smear, w/Anaerobe. Procedure Abnormality Status --------- ------ Culture, Wound, Smear[[id number]] Preliminary result Culture, Anaerobic[[id number]] In process Please view results for these tests on the individual orders. Culture, Wound, Smear [[id number]] Collected: 01/09/19599 Order Status: Completed Lab Status: Preliminary result Updated: 01/10/19 110 Specimen: Tissue from Leg, Left Culture 2+ Gram Positive Cocci Comment: Isolating for additional information. Gram Stain Result 1+ White Blood Cells 2+ Epithelial cells No organisms seen Culture, Anaerobic [[id number]] Collected: 01/09/19599 Order Status: Sent Lab Status: In process Updated: 01/09/19637 Specimen: Tissue from Toe, Fourth, Left Culture, Blood [[id number]] (Normal) Collected: 01/08/19 1644 Order Status: Completed Lab Status: Preliminary result Updated: 01/09/19450 Specimen: Blood from Peripheral Blood Culture No growth: Monitored continually by instrument for 5 days Culture, Blood [[id number]] (Normal) Collected: 01/08/19 1636 Order Status: Completed [...] -- 0.98* Imaging: none Date 01/08 01/09 4 Dialysis (yes/no) n y n Vancomycin level [...] Prior to admission dialysis schedule: [facility] Vancomycin Dosing in HD patients: If [...] P&T-approved Vancomycin Dosing and Monitoring Protocol Lizzy Magaña, PharmD 01/10/2019 13:38 Norma Finch MD - 01/09/2019 4:35 PM PDTFormatting of this note might be different from the jamini nal. HOSPITALIST PROGRESS NOTE Patient: Celso Caro : 1960: Age: 58 y.o. MedRec: [id number] PCP: Cristina Quinones PA-C Admission date: 01/08/2019 [...] + subjective fever/chills. Pt initially went to [facility] and was then sent t o [...] left foot : I jefferson ve contracted [employer] and plan to have Amputation. On Vanc and Zosyn End stage renal disease : Getting his dialysis Dyslipidemia : onCrestor Hypertension : On BB Anemia in ESRD (end-stage renal disease) : Stable Diabetes mellitus, type II, insulin dependent :On insulin DVT Prophylaxis : heparin Code Status : Full Code. DISCHARGE PLAN: Discharge in 3-4 days. Discussed with patient [place]row 01/09/2019 16:35 arlon Camarillo PharmD - 01/09/2019 9:53 AM PDTFormatting of [...] (end stage renal disease) on dialysis (HCC) ( 1999); Heart murmur; Hepatitis C (2006); [...] Procedure Component Value Units Date/Time Clostridium difficile [[id number]] Collected: 01/10/19 0152 Order Status: Sent Lab Status: In process Updated: 01/10/19 020 Specimen: Stool from Stool Culture, MRSA [[id number]] Collected: 01/09/19599 Order Status: Sent Lab Status: In process Updated: 01/09/19637 Specimen: Tissue from Leg, Left Culture, Wound, Smear, w/Anaerobe [[id number]] Collected: 01/09/19599 Order Status: Sent Lab Status: In process Updated: 01/09/19637 Specimen: Tissue from Toe, Fourth, Left Narrative: The following orders were created for panel order Culture, Wound, Smear, w/Anaerobe. Procedure Abnormality Status --------- ------ Culture, Wound, Smear[[id number]] In process Culture, Anaerobic[[id number]] In process Please view results for these tests on the individual orders. Culture, Wound, Smear [[id number]] Collected: 01/09/19599 Order Status: Sent Lab Status: In process Updated: 01/09/19647 Specimen: Tissue from Leg, Left Culture, Anaerobic [[id number]] Collected: 01/09/19599 Order Status: Sent Lab Status: In process Updated: 01/09/19637 Specimen: Tissue from Toe, Fourth, Left Culture, Blood [[id number]] (Normal) Collected: 01/08/19 1644 Order Status: Completed Lab Status: Preliminary result Updated: 01/09/19450 Specimen: Blood from Peripheral Blood Culture No growth: Monitored continually by instrument for 5 days Culture, Blood [[id number]] (Normal) Collected: 01/08/19 1636 Order Status: Completed [...] urinary obstruction; Diabetes mellitus, type 2 ([facility]) (); Diabetic foot ulcer ([facility]) (01/01/12); ESRD (end stage renal disease) on dialysis ([facility]) ( 1999); Heart murmur; Hepatitis C (2006); Hyperlipidemia; Hypertension (2001); Obesity; Parox ysmal atrial flutter ([facility]); Recurrent UTI; and Vitamin D deficiency. . [...] Procedure Component Value Units Date/Time Culture, Blood [[id number]] Collected: 01/08/19 1644 Order Status: Sent Lab Status: In process Updated: 01/08/19 1645 Specimen: Blood from Peripheral Blood Culture, Blood [[id number]] Collected: 01/08/19 1636 Order Status: Sent Lab [...] | | | | | | foot ([facility]) Diabetic | | | | | | ulcer of left | | | | | | midfoot associated | | | | | | with type 2 diabetes | | | | | | mellitus, with | | | | | | other ulcer severity | | | | | | ([facility]) | | + + +--------+ + + [...] | | | ON?04/ | | | / | | | 9 | | | 15:10? | | | CASE, | | | CELSO | | | M?MRN: | | | | | | [id number] | | | [id number] | | | riteri | | | [...] | | | St. | | | [place] | | | y | | | [...] | | | St. | | | [place] | | | y | | | [...] | | | St. | | | [place] | | | y H. | | [...] | | | ent/27 | | | [id number] | | | -ed9e- | | | [...] St | [place] | [phone] | | [facility] | | [address] | | | - LABORATORY | | [...] | | | POC | | | [facility] | | | | | | [...] + | [facility] | [address] | [place] | [phone] | | [facility] | | [address] | | | - LABORATORY | | [...] St | [place] | [phone] | | [facility] | | [address] | | | - LABORATORY | | | | + + + + + POC Glucose (01/10/2019 5:07 PM PDT) + +--------+ + + + | Component | Value | Ref Range | Performed | Pathologist | | | | | At | Signature | + +--------+ + + + | Glucose, | 69 (L) | 70 - 109 mg/dL | [facility] [...] St | [place] | [phone] | | [facility] | | [address] | | | - LABORATORY | | [...] + | [facility] | [address] | [place] | [phone] | | [facility] | | [address] | | | - LABORATORY | | [...] + | [facility] | [address] | [place], [place] | [phone] | | [facility] | | [address] | | | - LABORATORY | | [...] Result | [facility] | | | - LABORATORY | + + + + + + + + | Performing | Address | City/State/Zipcode | Phone Number | | Organization | | | | + + + + + | [facility] | [address] | [place] | [phone] | | [facility] | | [address] | | | - LABORATORY | | [...] St | [place] | [phone] | | [facility] | | [address] | | | - LABORATORY | | [...] [facility] | | | | | | [facility] | | | | [...] mL/min/1.73m2 | [facility] | | | [place] | | | MEDICAL | | | [...] | | ine Ratio | | | [facility] [place] | | | | [...] + | [facility] | [address] | [place] | [phone] | | [facility] | | [address] | | | - LABORATORY | | | | + + + + + CBC with Differential (01/10/2019 5:35 AM PDT) + + + + + + | Component | Value | Ref Range | Performed | Pathologist | | | | | At | Signature | + + + + + + | WBC | 7.1 | 4.0 - 11.0 K/uL | [facility] [...] | 0.00 | 0.00 - 0.01 | [facility] | | | nRBC | | K/uL | [facility] | | | | | | [...] St | [place] | [phone] | | [facility] | | [address] | | | - LABORATORY | | [...] [address] | [place] | [phone] | | [facility] | | [address] | | | - LABORATORY | | | | + + + + + Surgical Pathology Exam (01/10/2019 12:00 AM PDT) + + | Specimen | + + | | + + + + + | Narrative | Performed At | + + + | SPECIMEN(S): A LEFT FOURTH TOE SPECIMEN(S): B LEFT FOURTH TOE | [facility] | | PROXIMAL MARGIN SPECIMEN SOURCE: [...] | negative for evidence of pathologic inflammation. JVR:[facility]:C2NR | | | MICROSCOPIC EXAMINATION: Histologic sections [...] firm bony cut surface. | | | [facility] sections are submitted in cassettes (A1-A2) and [...] component was performed by | | | [facility], [address] [place] [address] (Medical | | | Director: Val Gomez MD; CLIA# [id number]). Professional | | | interpretation was performed by [facility] [place] | | | [facility], [address] [place] [address] | | | [id number] (Heel Attacher Wood: Sudhakar Weber M.D.). Diagnostician: | | | [...] [address] | [place] | [phone] | | [facility] | | [address] | | | - LABORATORY | | [...] + | [facility] | [address] | [place] | [phone] | | [facility] | | [address] | | | - LABORATORY | | | | + + + + + POC Glucose (01/09/2019 5:38 PM PDT) + +-------+ + + + | Component | Value | Ref Range | Performed | Pathologist | | | | | At | Signature | + +-------+ + + + | Glucose, | 89 | 70 - 109 mg/dL | [facility] | | | POC | | | [facility] | | | | | | [...] St | [place] | [phone] | | [facility] | | [address] | | | - LABORATORY | | [...] [address] | [place] | [phone] | | [facility] | | [address] | | | - LABORATORY | | [...] + | [facility] | [address] | [place] | [phone] | | [facility] | | [address] | | | - LABORATORY | | [...] ST. | [address] | [place], [place] | [phone] | | [facility] | | [address] | | | - LABORATORY | | [...] | | Result | | | [facility] | | [...] St | [place] | [phone] | | [facility] | | [address] | | | - LABORATORY | | [...] + | [facility] | [address] | [place] | [phone] | | [facility] | | [address] | | | - LABORATORY | | [...] St | [place] | [phone] | | [facility] | | [address] | | | - LABORATORY | | [...] + | [facility] | [address] | [place] | [phone] | | [facility] | | [address] | | | - LABORATORY | | [...] 7.98 ()Comment: | 0.70 - 1.30 | [facility] | | | | Critical value | mg/dL | [facility] | | | | creatinine called to and | | MEDICAL | | | | repeated back by Romelia | | CENTER - | | | | RN. Aldo 01-09-2019 @ | | LABORATORY | | | | 0705. JRCOBBEFFIE | | | | + + + + + + | eGFR if not | 7 (L)Comment: GLOMERULAR | >=60 | [facility] | | | | FILTRATION | mL/min/1.73m2 | [facility] | | | [place] | RATE,ESTIMATED | | MEDICAL | | | | mL/min/1.68c6Uvuk than | | CENTER - | | [...] [address] | [place] | [phone] | | [facility] | | [address] | | | - LABORATORY | | [...] St | [place] | [phone] | | [facility] | | [address] | | | - LABORATORY | | [...] Procedure Note | + + | Ramy, Jasper Results In - 01/09/2019 8:56 AM PDT [...] 100 | 70 - 109 mg/dL | [facility] [...] St | [place] | [phone] | | [facility] | | [address] | | | - LABORATORY | | [...] St | [place] | [phone] | | [facility] | | [address] | | | - LABORATORY | | | | + + + + + Procalcitonin (01/08/2019 4:36 PM PDT) + + + + + + | Component | Value | Ref Range | Performed | Pathologist | | | | | At | Signature | + + + + + + | Procalciton | 0.98 (H) | <=0.50 ng/mL | [facility] | | | in | | | [...] St | [place] | [phone] | | [facility] | | [address] | | | - LABORATORY | | [...] + | [facility] | [address] | [place] | [phone] | | [facility] | | [address] | | | - LABORATORY | | [...] St | [place] | [phone] | | [facility] | | [address] | | | - LABORATORY | | [...] 94 | 60 - 106 mg/dL | [facility] [...] mL/min/1.73m2 | [facility] | | | [place] | | | MEDICAL | | | [...] St | [place] | [phone] | | [facility] | | [address] | | | - LABORATORY | | [...] | | | | | M/uL | [facility] | | | | [...] St | [place] | [phone] | | [facility] | | [address] | | | - LABORATORY | | [...] [address] | [place] | [phone] | | [facility] | | [address] | | | - LABORATORY | | [...] +---+---+ | | | +---+---+ + +-------+ +-------+---+ + | bupivacaine (PF) (MARCAINE) 5 | Given | 01/11/20 | 4 mLs | | Surgical | | mL, lidocaine 5 mL Op[facility]esia | | 19 3:15 | | | Site | | mixture PRN, Starting 01/10/19 | | PM PDT | | | | | at 1515, Intra-op | | | | | | + +-------+ +-------+---+ + +---+---+ | | | +---+---+ + +-------+ +--------+---+---+ | cholecalciferol (VITAMIN D-3) | Given | 01/12/20 | 2,000 | | | | tablet 2,000 Units 2,000 Units, | | 19 8:27 | Units | | | | Oral, DAILY, First dose on Sakina | | AM PDT | | | | | 01/09/19 at 0900 | | | | | | + +-------+ +--------+---+---+ +-------+ +--------+---+---+ | Given | 01/10/20 | 2,000 | | | | | 19 9:25 | Units | | | | | AM PDT | | | | +-------+ +--------+---+---+ + +---+ | | | [...] | | | | | 01/08/19 at 7, If ineffective | | | | | | | use [place] 10/325 if ordered. If | | | [...] mL/hr, Intravenous, | | | CONTINUOUS, Starting 01/10/19 | | | at 1430, TKO., Pre-op [...] | | | | | | Starting [facility] 01/09/19 at 0304 | | | | [...] | | dose on Sakina 01/09/19 at 0000, Hold | | | [...] AM PDT | | | | | [facility] 01/09/19 at 0730, Indication: | | | [...] | | | | | dose on [facility] 01/09/19 at 0900 | | AM PDT [...] | | | | | dose on [facility] 01/09/19 at 1200, Do | | | [...]
--- OUTSIDE RECORDS SUMMARY | ~2020-03-04 | XMS | Clinical Summary ---
Demographics + + + | Address | [address] | | | [place] [address] | + + + | Home Phone | | + + + | Preferred Language | Unknown | + + + | Marital Status | | + + + | Mandaeism Affiliation | [id number] | + + + | Race | Unknown | + + + | Ethnic Group | Unknown | + + + Author + + + | Author | [facility] | | | and Scarana | + + + | Organization | [facility] [...] Team Providers + +------+ + | Care Healthcare Administrator Name | Role | Phone | + +------+ + | Marco A Carrasco | PCP | | + +------+ + Allergies + + + + + + | Active Allergy | Reactions | Severity | Noted | Comments | | | | | Date | | + + + + + + | Amlodipine Besylate | | | 10/17/19 | Unknown | | | | | 13 | | + + + + + + | Fenofibrate | | | 09/11/20 | Acidosis | | | | | 18 | | + + + + + + | Metformin | Diarrhea | | 10/17/19 | | | | | | 13 | | + + + + + + Medications + + + +---------+------+------+-------+ | Medication | Sig | Dispensed | Refills | Star | End | Statu | | | | | | t | Date | s | | | | | | Date | | | + + + +---------+------+------+-------+ | B Lvekmgy-X-Pizgp | Take 1 mg by mouth | 30 each | 11 | 06/08 | | Activ | | Acid (OLEG-TEQUILA RX) | Daily. | | | 06/27 | | e | | 1 MG TABS | | | | 13 | | | + + + +---------+------+------+-------+ | Cholecalciferol | Take 5,000 Units by | | 0 | | | Activ | | (VITAMIN D3) 5000 | mouth Daily. | | | | | e | | UNITS CAPS | | | | | | | + + + +---------+------+------+-------+ | sucroferric | Take 1 tablet by | | 0 | 05/0 | | Activ | | oxyhydroxide | mouth 4 times daily | | | 1/20 | | e | | (VELPHORO) 500 mg | (before meals and | | | 18 | | | | chewable tablet | nightly). | | | | | | + + + +---------+------+------+-------+ | rosuvastatin | Take 20 mg by mouth | | 0 | 06/1 | | Activ | | (CRESTOR) 20 mg | Daily. | | | 2/20 | | e | | tablet | | | | 18 | | | + + + +---------+------+------+-------+ | doxercalciferol | Inject 10 mcg into | | 0 | | | Activ | | (HECTOROL) 2 mcg/mL | the vein Three times | | | | | e | | injection | a week. | | | | | | + + + +---------+------+------+-------+ | apixaban (ELIQUIS) | Take 2.5 mg by mouth | | 0 | | | Activ | | 5 mg tablet | 2 times daily. | | | | | e | + + + +---------+------+------+-------+ | loperamide | Take 2 mg by mouth 4 | | 0 | | | Activ | | (ANTI-DIARRHEAL) 2 | times daily as | | | | | e | | MG tablet | needed for Diarrhea. | | | | | | + + + +---------+------+------+-------+ | cinacalcet | Take 30 mg by mouth | | 0 | | | Activ | | (SENSIPAR) 30 mg | Three times a week. | | | | | e | | tablet | | | | | | | + + + +---------+------+------+-------+ | omeprazole | Take 1 capsule by | 30 | 0 | 08/2 | | Activ | | (PRILOSEC) 20 mg | mouth Daily. | capsule | | 6/20 | | e | | capsule | | | | 19 | | | + + + +---------+------+------+-------+ | metoprolol | Take 50 mg by mouth | | 0 | | | Activ | | succinate | Daily. | | | | | e | | (TOPROL-XL) 50 mg 24 | | | | | | | | hr tablet | | | | | | | + + + +---------+------+------+-------+ | furosemide (LASIX) | Take 80 mg by mouth | | 0 | | | Activ | | 80 mg tablet | Daily. | | | | | e | + + + +---------+------+------+-------+ | calcium acetate | Take 1,334 mg by | | 0 | | | Activ | | (CALCIUM ACETATE) | mouth 4 times daily | | | | | e | | 667 mg tablet | (before meals and | | | | | | | | nightly). | | | | | | + + + +---------+------+------+-------+ | insulin glargine | Inject 10 Units | 10 mL | 0 | 03/2 | | Activ | | (LANTUS) 100 | under the skin 2 | | | 6/20 | | e | | units/mL injection | times daily. | | | 20 | | | | (vial) | | | | | | | + + + +---------+------+------+-------+ | epoetin padilla | Inject 1,000 Units | | 0 | | 05/1 | Disco | | (EPOGEN, PROCRIT) | into the vein Three | | | | 7/20 | ntinu | | 10,000 units/mL | times a week. | | | | 20 | ed | | injection | | | | | | (Ther | | | | | | | | apy | | | | | | | | compl | | | | | | | | eted) | + + + +---------+------+------+-------+ Active Problems + + + | Problem | Noted Date | + + + | Sepsis | 09/23/2019 | + + + | Pneumonia of left lower lobe due to infectious organism | 09/23/2019 | + + + | Osteomyelitis of fourth toe of left foot | 01/09/2019 | + + + | Cellulitis of left lower extremity | 01/08/2019 | + + + | ANGEL Inhibitors - Daily Use | 09/06/2018 | + + + | Beta Blockers - Daily Use | 09/06/2018 | + + + | Elevated hemoglobin A1c | 09/06/2018 | + + + + + | Overview: 8.3 - 12/08/2014 | + + + + + | Cellulitis of left lower extremity | 09/05/2018 | + + + | Diabetes mellitus, type II, INSULIN & ORAL Control | 04/28/2018 | + + + + + | Overview: Overview: | | MC-2728 | + + + + + | Diabetes mellitus, type II, insulin dependent | 03/13/2016 | + + + | Awaiting kidney transplant status | 05/04/2014 | + + + + + | Overview: 05/23/17: Referral to [facility]: Patient referral | | denied. Must meet the following criteria before re-referral 1. | | Wounds (foot) completely healed x 3 months 2. Complete liver work | | including liver biopsy as recommended by master deputy sheriff court security 3. | | Excellent compliance with care for a minimum of 3 months. | | Compliance measures include but are not limited to: hemoglobin | | >/=10, phosphorous <6, potassium <5, IDWG </= 5%, pre dialysis BP | | <160/90, no missed treatments or appointments, not cutting runs | | short. 12/11/14 status: closed d/t patient not completing required | | health maintenance exams Referred to [facility] on 05/04/14. Referral | | closed 12/11/14: Due to lack of participation-none of required | | health maintenance exams were completed | + + + + + | Anemia in ESRD (end-stage renal disease) | 12/24/2013 | + + + | Hypertension | 09/22/2013 | + + + | End stage renal disease | 08/07/2013 | + + + + + | Overview: ESRD due to diabetic nephropathy. | | On hemodialysis. | | Access: Left brachial-cephalic AVF created on 07/28/13. | + + + + + | Preventative health care | 06/25/2013 | + + + + + | Overview: LAST PSA:No record found | | | | RESULT: | | | | LAST COLONOSCOPY: No record found | | | | RESULT | + + + + + | Secondary hyperparathyroidism (of renal origin) | 01/23/2013 | + + + + + | Overview: ICD-10 Record update | + + + + + | Right renal mass | 10/18/2012 | + + + | Diabetic foot ulcer | 01/01/2012 | + + + + + | Overview: cellulits, 2nd left toe | + + + +---+ | BPH (benign prostatic hyperplasia) | | + +---+ + + | Overview: flomax caused diarrhea | + + + +---+ | Recurrent UTI | | + +---+ | Heart murmur | | + +---+ + + | Overview: Since childhood | + + + +---+ | Diabetic neuropathy | | + +---+ + + | Overview: with neuropathy | + + + +---+ | Vitamin D deficiency | | + +---+ | Obesity, Class I, BMI 30-34.9 | | + +---+ | Dyslipidemia | | + +---+ | Hepatitis C | | + +---+ | Paroxysmal atrial flutter | | + +---+ + + | Overview: Echocardiogram September 2018 shows the left | | ventricle appears mildly enlarged with mild to moderate mobile | | hypokinesis. LVEF is estimated in the range of 40-45%. Mitral | | valve is mildly thickened with mild insufficiency and borderline | | to mild stenosis. Structurally normal tricuspid valve with | | moderate insufficiency and peak velocity consistent with RVSP | | 46-51 mmHg. Left atrium is moderately enlarged. Right Atrium is | | moderately enlarged. | + + Resolved Problems + + + + | Problem | Noted | Resolved | | | Date | Date | + + + + | Fever | 12/30/19 | | | | 20 | 0 | + + + + | Atrial fibrillation with RVR | 09/23/20 | | | | 19 | 0 | + + + + | Peritoneal dialysis catheter exit site infection | 06/27/20 | | | | 13 | 4 | + + + + | Chronic kidney disease (CKD), stage V | 10/18/19 | | | | 13 | 3 | + + + + | Nephrotic syndrome | 10/18/19 | | | | 13 | 3 | + + + + | Chronic kidney disease | | | | | | 3 | + + + + | Unspecified essential hypertension | | | | | | 3 | + + + + + + | Overview: ICD-10 Record update | + + Encounters +--------+ + + + + | Date | Type | Specialty | Care Team | Description | +--------+ + + + + | 01/18/ | Off-Site | Nephrology | Uche Orozco | End stage renal | | 2020 | Visit | | M, DO | disease (HCC) | | | | | | (Primary Dx) | +--------+ + + + + | 12/31/ | Imaging | Radiology | Provider, | | | 2019 | Exam | | MD Charan | | +--------+ + + + + | 12/29/ | Telephone | Nephrology | Uche Orozco | Other | | 2019 | | | M, DO | | +--------+ + + + + | 12/28/ | Hospital | | Kori Ross MD | Atrial fibrillation | | 2019 - | Encounter | | Halley Calvo MD | with RVR ([facility]); | | | | | | Fever, unspecified | | 12/31/ | | | | fever cause; End | | 2019 | | | | stage renal disease | | | | | | ([facility]); Diabetes | | | | | | mellitus, type II, | | | | | | insulin dependent | | | | | | ([facility]); SIRS | | | | | | (systemic | | | | | | inflammatory | | | | | | response syndrome) | | | | | | ([facility]) | +--------+ + + + + | 12/28/ | Intake | | | N/A | | 2019 | | | | | +--------+ + + + + from Last 3 Months Immunizations + + + + | Name | Administration Dates | Next Due | + + + + | DTP (PED) | 10/16/2011 | | + + + + | HEP B, 3 DOSE | 03/22/2017, 10/28/2015, 12/08/2014 | | | (ADULT) | | | + + + + | INFLUENZA, | 07/02/2015, 07/03/2013, 11/11/2012, | | | UNSPECIFIED | 09/14/2011 | | | FORMULATION | | | + + + + | TDAP, (ADOL/ADULT) | 10/16/2011 | | + + + + | ZOSTER NON-LIVE | 04/24/2019 | | | (SHINGRIX) | | | + + + + Family History + + +------+ + | Medical History | Relation | Name | Comments | + + +------+ + | Other (see comment) | Father | | MVA | + + +------+ + | Cirrhosis | Mother | | | + + +------+ + | Kidney disease | Neg Hx | | | + + +------+ + + +------+ + + | Relation | Name | Status | Comments | + +------+ + + | Brother | | Alive | | + +------+ + + | Father | | | motor vehicle accident | | | | (Age | | | | | 52) | | + +------+ + + | Mother | | | liver disease | | | | (Age | | | | | 68) | | + +------+ + + | Sister | | Alive | | + +------+ + + Social History + + + [...] | + + Last Filed Vital Signs + [...] | | + + + + + Plan of Treatment + + + + + | Health Maintenance | Due Date | Last Done | Comments | + + + + + | Vaccine: | | | | | Pneumococcal 19-64 | 5 | | | | (1 of 3 - PCV13) | | | | + + + + + | Diabetic Eye Exam | | | | | | 7 | | | + + + + + | Diabetic Foot Exam | | | | | | 7 | | | + + + + + | Hemoglobin A1c | | 12/08/2014 | | | Screening | 5 | | | + + + + + | Vaccine: Zoster (2 | | 04/24/2019 | | | of 2) | 9 | | | + + + + + | Vaccine: Influenza | | 07/02/2015, 07/03/2013, | | | (Season Ended) | 0 | 11/11/2012, Additional history | | | | | exists | | + + + + + | Colorectal Cancer | | 12/30/2019 | | | Screening (FIT) | 1 | | | + + + + + | Vaccine: | | 10/16/2011, 10/16/2011 | | | Dtap/Tdap/Td (2 - | 2 | | | | Tdap) | | | | + + + + + | Hepatitis C | Completed | 09/10/2018, 09/10/2018, | | | Screening | | 09/09/2018, Additional history | | | | | exists | | + + + + + Procedures + +--------+ + + + | [...] section. | + +--------+ + + + from Last 3 Months Results POC Glucose (01/01/2020 6:47 AM PDT)Only the most recent of 7 results within the time richard od is included. + +-------+ + + + | Component | Value | Ref Range | Performed | Pathologist | | | | | At | Signature | + +-------+ + + + | Glucose, | 98 | 70 - 109 mg/dL | [facility] [address] | [place] | [phone] | | [facility] | | [address] | | | - LABORATORY | | | | + + + + + PTT (01/01/2020 4:48 AM PDT)Only the most recent of 2 results within the time period is in cluded. + +-------+ + + + | Component [...] + | [facility] | [address] | [place] | [phone] | | [facility] | | [address] | | | - LABORATORY | | | | + + + + + CBC with Differential (01/01/2020 4:48 AM PDT)Only the most recent of 4 results within the time period is included. + + + + + + | [...] | nRBC | | K/uL | [facility] | [...] + + + + + | [facility] | [address] | [place] | [phone] | | [facility] | | [address] | | | - LABORATORY | | | | + + + + + Renal Function Panel (01/01/2020 4:48 AM PDT)Only the most recent of 2 results within the time period is included. + + + + + + | [...] (H) | 9 - 23 mg/dL | [facility] | | | | | | [facility] | | | | | | MEDICAL | | | | | | CENTER - | | | | | | LABORATORY | | + + + + + + | Creatinine | 6.45 (H) | 0.70 - 1.30 | [facility] | | | | | mg/dL | [facility] | | | | | | MEDICAL | | | | | | CENTER - | | | | | | LABORATORY | | + + + + + + | eGFR if not | 9 (L)Comment: GLOMERULAR | >=60 | [facility] | | | | FILTRATION | mL/min/1.73m2 | [facility] | | | [place] | RATE,ESTIMATED | | MEDICAL | | | | mL/min/1.09n9Tbcx than | | CENTER - | | [address] | [place] | [phone] | | [facility] | | [address] | | | - LABORATORY | | [...] | | | | | ELEANOR YOUNG ([id number]) on | | | | | | [...] | | | + +---------+ + + Hepatitis B Surface Ag (12/31/2019 [...] + + | Performed at: 01 - [facility] [address], | REFERENCE LAB | | [place], [place] [id number] [employer] Developer: Darin Odom MD, Phone: | [facility] | | [phone] | | + + + + + + + + | Performing | Address | City/State/Zipcode | Phone Number | | Organization | | | | + + + + + | REFERENCE LAB | [address] | [place], [place] | [phone] | | [facility] | [facility] | [address] | | + + + + + [...] St | [place] | [phone] | | [facility] | | [address] | | | - LABORATORY | | | | + + + + + Sedimentation Rate (12/30/2019 5:26 AM PDT) + +--------+ + + + | Component | Value | Ref Range | Performed | Pathologist | | | | | At | Signature | + +--------+ + + + | Erythrocyte | 64 (H) | <20 mm/hr | [facility] | | | | | [facility] | | | Sedimentati | | [...] St | [place] | [phone] | | [facility] | | [address] | | | - LABORATORY | | | | + + + + + C-Reactive Protein (12/30/2019 5:26 AM PDT)Only the most recent of 2 results within the ti me period is included. + + + + + + | Component | Value | Ref Range | Performed | Pathologist | | | | | At | Signature | + + + + + + | CRP | 51.80 (H) | <10.00 mg/L | [facility] | | | | | | [facility] | | | | | | MEDICAL [...] + | [facility] | [address] | [place] | [phone] | | [facility] | | [address] | | | - LABORATORY | | [...] in | 12 - 53 U/L | [facility] | | | | use as of December 04, | | [facility] | | | | 2019. Check reference [...] St | [place] | [phone] | | [facility] | | [address] | | | - LABORATORY | | | | + + + + + Comprehensive Metabolic Panel (12/30/2019 5:26 AM PDT)Only the most recent of 2 results wi thin the time period is included. + + + + + + | [...] 5.69 (H) | 0.70 - 1.30 | [facility] | | | | | mg/dL | [...] mL/min/1.73m2 | [facility] | | | [place] | RATE,ESTIMATED | | MEDICAL | | | | mL/min/1.52d2Refk than | | CENTER - | | [...] 3.6 | 3.2 - 4.8 g/dL | [facility] [...] ST. | [address] | [place] | [phone] | | [facility] | | [address] | | | - LABORATORY | | [...] ST. | [address] | [place], [place] | [phone] | | [facility] | | [address] | | | - LABORATORY | | [...] | | , Qual | | | [facility] | | | | | [...] St | [place] | [phone] | | [facility] | | [address] | | | - LABORATORY | | [...] | chromogenic agar method. | | [facility] | | | [...] + | [facility] | [address] | [place] | [phone] | | [facility] | | [address] | | | - LABORATORY | | [...] ST. | [address] | [place], [place] | [phone] | | [facility] | | [address] | | | - LABORATORY | | | | + + + + + Culture, Blood (12/30/2019 12:06 AM PDT)Only the most recent of 2 results within the time sarah regalado is included. + + + + + + | [...] + | [facility] | [address] | [place] | [phone] | | [facility] | | [address] | | | - LABORATORY | | [...] Detected | [facility] | | | za 1 | | | [facility] | | | | | | MEDICAL | | | | | | CENTER - | | | | | | LABORATORY | | + + + + + + | Adenovirus | Not Detected | Not Detected | [facility] | | | | | [...] Detected | [facility] | | | za 3 | | [...] + | [facility] | [address] | [place], [place] | [phone] | | [facility] | | [address] | | | - LABORATORY | | [...] | | | | | Invalid | [facility] | | | | [...] St | [place] | [phone] | | [facility] | | [address] | | | - LABORATORY | | | | + + + + + Procalcitonin (12/29/2019 11:56 PM PDT) + + + + + + | Component | Value | Ref Range | Performed | Pathologist | | | | | At | Signature | + + + + + + | Procalciton | 7.04 ()Comment: | <=0.50 ng/mL | [facility] | [...] ST. | [address] | [place], [place] | [phone] | | [facility] | | [address] | | | - LABORATORY | | [...] St | [place] | [phone] | | [facility] | | [address] | | | - LABORATORY | | | | + + + + + Magnesium (12/29/2019 11:56 PM PDT) + +-------+ + + + | Component | Value | Ref Range | Performed | Pathologist | | | | | At | Signature | + +-------+ + + + | Magnesium | 1.6 | 1.6 - 2.6 mg/dL | [facility] | | | | | | ST. [...] + | [facility] | [address] | [place], [place] | [phone] | | [facility] | | [address] | | | - LABORATORY | | | | + + + + + LABS - EXTERNAL SCAN (12/29/2019 12:00 AM PDT)Only the most recent of 2 results within the time period is included. + + + | Narrative | Performed At | + + + | Ordered by an | | | unspecified provider. | | + + + XR Chest 1 Vw (12/29/2019 12:00 AM [...] | | | + +---------+ + + from Last 3 Months Insurance + +--------+ +--------+-------+---------+--------+ | Payer | Benefi | Subscriber | Effect | Phone | Address | Type | | | t Plan | ID | cyn | | | | | | / | | Dates | | | | | | Group | | | | | | + +--------+ +--------+-------+---------+--------+ | BCBS | BCBS | [id number] | 10/08/19 | | | PPO | | | [place] | | 16-Pre | | | | | | L FEP | | sent | | | | + +--------+ +--------+-------+---------+--------+ | [employer] | I[employer] | [id number] | | | | Indemn | | SERVICE | YELLOW | | 013-Pr | | | ity | | | HAWK | | esent | | | | + +--------+ +--------+-------+---------+--------+ + +--------+ +--------+ + + | Guarantor Name | Accoun | Relation to | Date | Phone | Billing Address | | | t Type | Patient | of | | | | | | | | | | + +--------+ +--------+ + + | Celso Caro | Person | Self | [birth year] | [address] | | | al/Fam | | 1959 | [phone] | [place] [address] | | | brisa | | | 2 (Home) | | + +--------+ +--------+ + + Advance Directives + + + + + | Type | Date Recorded | Patient | Explanation | | | | Registered Nurse Cardiac Telemetry | | + + + + + | Power of | | | | | Supply Chain Specialist | | | | + + + + + | Advance | 09/05/2018 | | | | Directive | 6:11 PM | | | + + + + + + + + + + | Code Status | Date | Date | Comments | | | Activated | Inactivated | | + + + + + | Full Code | 12/29/2019 | 01/01/2020 | | | | 11:15 PM | 4:02 PM | | + + + + + + +---------+---+ | Orders discussed with: | Patient | | + +---------+---+ + + + +---+ | | | | | + + + +---+ | Full Code | 09/22/2019 | 09/26/2019 | | | | 11:42 PM | 1:50 PM | | + + + +---+ + +---------+---+ | Orders discussed with: | Patient | | + +---------+---+ + + + +---+ | | | | | + + + +---+ | Full Code | 09/22/2019 | 09/22/2019 | | | by default | 11:21 PM | 11:42 PM | | | - TBD | | | | + + + +---+ + + + +---+ | | | | | + + + +---+ | Full Code | 01/08/2019 | 01/11/2019 | | | | 8:57 PM | 5:49 PM | | + + + +---+ + + + +---+ | | | | | + + + +---+ | Full Code | 09/05/2018 | 09/11/2018 | | | | 9:56 PM | 1:55 PM | | + + + +---+
--- OUTSIDE RECORDS SUMMARY | ~2020-03-04 | XMS | Encounter Summary ---
Demographics + + + | Address | [address] | | | [place] [address] | + + + | Home Phone [...] + | Author | [facility] | | | and Scarana | + + + | Organization | [facility] | | [...] Team Providers + +------+ + | Care X Ray Physician Name | Role | Phone | + [...] | | | disease | NW | [facility] [place] | | | | | ([facility]) | [place] | [address] | | | | | Procedures | [address] | [place] | | | | | CT OFFICE | [facility] | [address] Phone: | | | | | OUTPATIENT | [place] | [phone] | | | | | VISIT 25 | [address] | Fax: | | | | | MINUTES | Phone: | [phone] | | | | | dialysis | [phone] | | | | | | | Fax: | | | | | | | [phone] | | +--------+--------+ + + + + [...] [address] | [facility] | goal blood pressure | | | | [place] | [place] | less than 140/90 | | | | [phone] | [address] | (Primary Dx); End | | | | [phone] | | stage renal disease | | [...]
--- OUTSIDE RECORDS SUMMARY | ~2020-03-04 | XMS | Encounter Summary ---
Demographics + + + | Address | [address] | | | [place] [address] | + + + | Home Phone | | + + + | Preferred Language | Unknown | + + + | Marital Status | | + + + | Cheondoism Affiliation | 1041 | + + + | Race | Unknown | + + + | Ethnic Group | Unknown | + + + Author + + + | Author | [facility] | | | and Scarana | + + + | Organization | [facility] [...] Team Providers + +------+ + | Care Sales Promoter Name | Role | Phone | + [...] Right renal | Lexi W, | [address] | | | | | mass | MD [address] | [place], | | | | | Procedures | [place] | [place] [address] | | | | | CT Abdomen | [address] [place] | Phone: | | | | | Pelvis w | [place], [place] | [phone] | | | | | Contrast | [address] | Fax: | | | | | 05/08>PEND | Phone: | [phone] | | | | | [place] | [phone] | | | | | | [place] | Fax: | | | | | | | [phone] | | +--------+--------+ + + + + Encounter Details +--------+ + + + + | Date | Type | Department | Care Team | Description | +--------+ + + + + | 05/08/ | Orders Only | [facility] [place] | Lexi Kuo W, | Right renal mass | | 2013 | | NEPHROLOGY [address] | MD [address] | (Primary Dx) | | | | [address] | [address] [place] | | | | | [place] | [place] [address] | | | | | [address] | [phone] | | | | | [phone] | | | +--------+ + + + [...] + | MISCELLANEOUS LAB | | | [phone] | + +---------+ + + | MISCELANIOUS LAB | | | [phone] | + +---------+ + + documented in this encounter Visit Diagnoses + + | Diagnosis | + + | Right renal mass - Primary Unspecified disorder of kidney and ureter | + + documented in this encounter"
--- OUTSIDE RECORDS SUMMARY | ~2020-03-04 | XMS | Encounter Summary ---
Demographics + + + | Address | [address] | | | [place] [address] | + + + | Home Phone | | + + + | Preferred Language | Unknown | + + + | Marital Status | | + + + | Tenriism Affiliation | 1041 | + + + | Race | Unknown | + + + | Ethnic Group | Unknown | + + + Author + + + | Author | [facility] | | | and [place] | + + + | Organization | [facility] | | | and [place] [...] Providers + +------+ + | Care Video Games Mechanic Name | Role | Phone | + +------+ + PCP | Unavailable | + +------+ + Encounter Details +--------+ + + + + | Date | Type | Department | Care Team | Description | +--------+ + + + + | 03/15/ | Documentati | [facility] [place] | Uceh Orozco | | | 2014 | on | NEPHROLOGY [address] | M, DO [address] | | | | | [address] | [place] [address] | | | | | [place] | [place] | | | | | [address] | [address] | | | | | [phone] | | | +--------+ + + + [...] encounter Progress Notes Uche Orozco DO - 04/24/2015 3:43 PM PDT DIALYSIS NOTE He is seen on thrice weekly HD, tolerating it well. No complaints. Exam BP 167/85 T 97.2 EDW 124 kg PE: unremarkable. Plan 1. Monthly lab was reviewed with the pt. 2. QB = 475 ml/min with COLOR DEPOSITING MACHINE TENDER < 200 mmHg at the AVF. documented in thi s encounter Plan of Treatment Not on filedocumented as of this encounter Visit Diagnoses + + | Diagnosis | + + | End stage renal disease (HCC) - Primary End stage renal disease | + + documented in this encounter"
--- OUTSIDE RECORDS SUMMARY | ~2020-03-04 | XMS | Encounter Summary ---
Demographics + + + | Address | [address] | | | [place] [address] | + + + | Home Phone [...] | Organization | [facility] | | [...] Team Providers + +------+ + | Care Call Center Receptionist Name | Role | Phone | + +------+ + PCP | Unavailable | + +------+ + Encounter Details +--------+ + + + + | Date | Type | Department | Care Team | Description | +--------+ + + + + | 11/06/ | Hospital | [facility] | Artem Angelo | | | 2013 - | Encounter | MED CTR MP INTRA OP | [place], FACS [address] | | | | | [address] | [facility] | | | 11/07/ | | [place] | [place] [address] | | | 2013 | | [address] | [phone] | | | | | [phone] | | | +--------+ + + + [...] + + +---------+ + + | B Hwmrzgg-S-Ehjpk | Take 1 mg by mouth | [...] + | [facility] | [address] | [place], [place] | [phone] | | [facility] | | [address] | | | - LABORATORY | | | | + + + + + | [facility] | [address] | [place], [place] | | | [facility] | | [address] [place] [address] | | | - LABORATORY | | [...] + | [facility] | [address] | [place] | [phone] | | [facility] | | [address] | | | - LABORATORY | | | | + + + + + | [facility] | [address] | [place] | | | [facility] | | [id number] | | | - LABORATORY | [...] | | POC | | | [facility] | | | | | [...] + | [facility] | [address] | [place], [place] | [phone] | | [facility] | | [address] | | | - LABORATORY | | | | + + + + + | [facility] | [address] | [place], [place] | | | [facility] | | [id number] | | | - LABORATORY | [...] + | [facility] | [address] | [place], [place] | [phone] | | [facility] | | [address] | | | - LABORATORY | | | | + + + + + | [facility] | [address] | [place], [place] | | | [facility] | | [id number] | | | - LABORATORY | [...] St | [place] | [phone] | | [facility] | | [address] | | | - LABORATORY | | | | + + + + + | [facility] | [address] | [place] | | | [facility] | | [address], [facility] | | | - LABORATORY [...] + | [facility] | [address] | [place] | [phone] | | [facility] | | [address] | | | - LABORATORY | | | | + + + + + | [facility] | [address] | [place], [place] | | | [facility] | | [id number] | | | - LABORATORY [...] St | [place] | [phone] | | [facility] | | [address] | | | - LABORATORY | | | | + + + + + | [facility] | [address] | [place], [place] | | | [facility] | | [id number] | | | - LABORATORY | [...] + | [facility] | [address] | [place] | [phone] | | [facility] | | [address] | | | - LABORATORY | | | | + + + + + | [facility] | [address] | [place], [place] | | | [facility] | | [address], [facility] | | | - LABORATORY [...] + | [facility] | [address] | [place] | [phone] | | [facility] | | [address] | | | - LABORATORY | | | | + + + + + | [facility] | [address] | [place] | | | [facility] | | [address], [facility] | | | - LABORATORY [...] + | [facility] | [address] | [place], [place] | [phone] | | [facility] | | [address] | | | - LABORATORY | | | | + + + + + | [facility] | [address] | [place], [place] | | | [facility] | | [id number] [place] [address] | | | - LABORATORY | | [...] + | [facility] | [address] | [place] | [phone] | | [facility] | | [address] | | | - LABORATORY | | | | + + + + + | [facility] | [address] | [place] | | | [facility] | | [address] | | | - LABORATORY [...] | | [facility] | | | [facility] | | | - LABORATORY | + + + + + + + + | Performing | Address | City/State/Zipcode | Phone Number | | Organization | | | | + + + + + | [facility] | [address] | [place] | [phone] | | [facility] | | [address] | | | - LABORATORY | | | | + + + + + | [facility] | [address] | [place] | | | [facility] | | [address], [facility] | | | - LABORATORY [...] + | [facility] | [address] | [place], [place] | [phone] | | [facility] | | [address] | | | - LABORATORY | | | | + + + + + | [facility] | [address] | [place], [place] | | | [facility] | | [id number] [place] [address] | | | - LABORATORY | | [...] + | [facility] | [address] | [place] | [phone] | | [facility] | | [address] | | | - LABORATORY | | | | + + + + + | [facility] | [address] | [place] | | | [facility] | | [address] [place] [address] | | | - LABORATORY | | | | + + + + + documented in this encounter Visit Diagnoses Not on filedocumented in this encounter"
--- OUTSIDE RECORDS SUMMARY | ~2020-03-04 | XMS | Clinical Summary ---
Demographics + + + | Address | [address] | | | [place] [address] | + + + | Home Phone [...] Organization | [facility] | | | and [...] Providers + +------+ + | Care Manager Group Home Name | Role | Phone | + [...] | + + + +---------+------+------+-------+ | B Umusiws-R-Jtfru | Take 1 mg by mouth | [...] + + | Overview: 05/23/17: Referral to [facility]06/06/17: Patient referral | | denied. Must meet the following criteria before re-referral 1. | | Wounds (foot) completely healed x 3 months 2. Complete liver work | | including liver biopsy as recommended by machine carton marker 3. | | Excellent compliance with care [...] | | health maintenance exams Referred to [facility] on 05/04/14. Referral | | closed [...] | Halley Calvo MD | with [facility] ([facility]); | | | | | | Fever, unspecified | | 12/31/ | | | | fever cause; End | | 2019 | | | | stage renal disease | | | | | | ([facility]); Diabetes | | | | | | mellitus, type II, | | | | | | insulin dependent | | | | | | ([facility]); SIRS | | | | | | (systemic | | | | | | inflammatory | | | | | | response syndrome) | | | | | | ([facility]) | +--------+ + + + + | [...] St | [place] | [phone] | | [facility] | | [address] | | | - LABORATORY | | [...] + | [facility] | [address] | [place] | [phone] | | [facility] | | [address] | | | - LABORATORY | | [...] + + + + + | [facility] | [address] | [place] | [phone] | | [facility] | | [address] | | | - LABORATORY | | [...] (H) | 9 - 23 mg/dL | [facility] | | | | | | [facility] | | | | | | MEDICAL | | | | | | CENTER - | | | | | | LABORATORY | | + + + + + + | Creatinine | 6.45 (H) | 0.70 - 1.30 | [place] | | | | | mg/dL | [facility] | | | | | | MEDICAL | | | | | | CENTER - | | | | | | LABORATORY | | + + + + + + | eGFR if not | 9 (L)Comment: GLOMERULAR | >=60 | [place] | | | | FILTRATION | mL/min/1.73m2 | [facility] | | | [place] | RATE,ESTIMATED | | MEDICAL | | | | mL/min/1.72y5Zagl than | | CENTER - | | [...] [address] | [place] | [phone] | | [facility] | | [address] | | | - LABORATORY | | [...] | | | | | ELEANOR YOUNG ([id number]) on | | | | | | [...] + + | Performed at: 01 - [facility] [address], | REFERENCE LAB | | [place], [place] [id number] Silver Chaser: Darin Odom MD, Phone: | [facility] | | [phone] | | + + + + + + + + | Performing | Address | City/State/Zipcode | Phone Number | | Organization | | | | + + + + + | REFERENCE LAB | [address] | [place], [place] | [phone] | | [facility] | [facility] | [address] | | + + + + + [...] St | [place] | [phone] | | [facility] | | [address] | | | - LABORATORY | | [...] St | [place] | [phone] | | [facility] | | [address] | | | - LABORATORY | | [...] | | | | | | [facility] | | | | | [...] + | [facility] [facility] | [address] | [place] | [phone] | | [facility] | | [address] | | | - LABORATORY | | [...] as of December 04, | | [facility] | | | | 2019. Check reference [...] St | [place] | [phone] | | [facility] | | [address] | | | - LABORATORY | | [...] mL/min/1.73m2 | [facility] | | | [place] | RATE,ESTIMATED | | MEDICAL | | | | mL/min/1.81e1Zewa than | | CENTER - | | [...] ST. | [address] | [place] | [phone] | | [facility] | | [address] | | | - LABORATORY | | [...] ST. | [address] | [place], [place] | [phone] | | [facility] | | [address] | | | - LABORATORY | | [...] | , Qual | | | [facility] | | | | | [...] St | [place] | [phone] | | [facility] | | [address] | | | - LABORATORY | | [...] + | [facility] | [address] | [place] | [phone] | | [facility] | | [address] | | | - LABORATORY | | [...] ST. | [address] | [place], [place] | [phone] | | [facility] | | [address] | | | - LABORATORY | | [...] + | [facility] | [address] | [place] | [phone] | | [facility] | | [address] | | | - LABORATORY | | [...] + | [address] [facility] | [address] | [place], [place] | [phone] | | [facility] | | [address] | | | - LABORATORY | | [...] St | [place] | [phone] | | [facility] | | [address] | | | - LABORATORY | | [...] ST. | [address] | [place], [place] | [phone] | | [facility] | | [address] | | | - LABORATORY | | [...] St | [place] | [phone] | | [facility] | | [address] | | | - LABORATORY | | [...] + | [facility] | [address] | [place], [place] | [phone] | | [facility] | | [address] | | | - LABORATORY | | [...] +--------+ +--------+-------+---------+--------+ | BCBS | BCBS | [id number] | 10/08/19 | | | PPO | | | FEDERA | | 16-Pre | | | | | | L FEP | | sent | | | | + +--------+ +--------+-------+---------+--------+ | [facility] | IHS | [id number] | | | | Indemn | | [...] Person | Self | [birth year] | [address] | | | al/Fam | | 1959 | [phone] | [place] [address] | | | brisa | | | 2 (Home) | | + +--------+ +--------+ + + Advance Directives + + + + + | Type | Date Recorded | Patient | Explanation | | | | Etl Software Engineer | | + + + + + | Power of | | | | | Shackler | | | | + + + [...]
--- OUTSIDE RECORDS SUMMARY | ~2020-03-04 | XMS | Encounter Summary ---
Demographics + + + | Address | [address] | | | [place] [address] | + + + | Home Phone [...] | [facility] | | | and [place] | + + + | Organization | [facility] | | | and [...] Team Providers + +------+ + | Care Contract Paralegal Name | Role | Phone | + [...] | [address] | [place] | | | | | [place] | [place] | | | | | [address] | [address] | | | | | [phone] | | | +--------+ + + + [...] seen on the MWF shift at [facility]. He had his left arm AVF transposed [...]
--- OUTSIDE RECORDS SUMMARY | ~2020-03-04 | XMS | Encounter Summary ---
Demographics + + + | Address | [address] | | | [place] [address] | + + + | Home Phone [...] | [facility] | | | and [place] [...] Team Providers + +------+ + | Care Electrical Tech/Project Manager Name | Role | Phone | [...] | | | [address] | [place], [address] | diabetes mellitus | | | | [place], [place] | [place] | with renal | | | | [address] | [address] | manifestations, | | | | [phone] | | uncontrolled (HCC) | | | [...] Orozco, - 04/24/2015 3:35 PM PDT Subjective: [facility] DIALYSIS NOTE Patient ID: Celso Caro is a 55 y.o. male. HPI Comments: Monthly dialysis visit for this 55 YO male with ESRD second milly to diabetic nephropathy, who is seen on outpatient HD, at the [facility] . He also has T2DM, requiring insulin, [...] by mouth Daily. 30 tablet 5 B Cbwqfny-G-Czxqk Acid (OLEG-TEQUILA RX) 1 MG TABS Take [...] still schedule a liver Bx, per last [facility] correspondence. 8. Hyperlipidemia--Will recheck the lipid profile [...] the Nephrology team in 2 weeks. CC: [facility], [facility] documented in thi s encounter Plan of Treatment Not on filedocumented as of this encounter Visit Diagnoses + + | Diagnosis | + + | Type II or unspecified type diabetes mellitus with renal manifestations, | | uncontrolled(250.42) ([facility]) - Primary Type II or unspecified type diabetes mellitus with | | renal manifestations, uncontrolled | + + | End stage renal disease (HCC) End stage renal disease | + + documented in this encounter
--- OUTSIDE RECORDS SUMMARY | ~2020-03-04 | XMS | Encounter Summary ---
Demographics + + + | Address | [address] | | | [place] [address] | + + + | Home Phone [...] + | Organization | [facility] | [...] Team Providers + +------+ + | Care Teleprinter Installer Name | Role | Phone | + +------+ + | Marco A Carrasco | PCP | | + +------+ + Encounter Details +--------+--------+ + + + | Date | Type | Department | Care Team | Description | +--------+--------+ + + + | 12/28/ | Intake | [facility] | | N/A | | 2019 | | [facility] [address] | | | | | | [place] | | | | | | [place] | | | | | | [address] | | | | | | [phone] | | | +--------+--------+ + + + [...]
--- OUTSIDE RECORDS SUMMARY | ~2020-03-04 | XMS | Encounter Summary ---
Demographics + + + | Address | [address] | | | [place] [address] | + + + | Home Phone [...] [facility] | | | and [place] | [...] Team Providers + +------+ + | Care Gage Designer Name | Role | Phone | + +------+ + PCP | Unavailable | + +------+ + Encounter Details +--------+ + + + + | Date | Type | Department | Care Team | Description | +--------+ + + + + | 12/31/ | Documentati | [facility] [place] | Uche Orozco | | | 2014 | on | NEPHROLOGY [address] | M, DO [address] | | | | | [address] | [place], [address] [place] | | | | | [place] | [place] | | | | | [address] | [address] | | | | | [phone] | | | +--------+ + + + [...] this encounter Progress Notes Dedra Camara - 12/31/2014 1:27 PM PDTE-faxed progress notes from 11/30/14 and 09/28/14 to Priscilla in referrals at [facility] (fx: [phone]) per her request. documented in this encoun ter Plan of Treatment Not on filedocumented as of this encounter Visit Diagnoses Not on filedocumented in this encounter"
--- OUTSIDE RECORDS SUMMARY | ~2020-03-04 | XMS | Encounter Summary ---
Demographics + + + | Address | [address] | | | [place] [address] | + + + | Home Phone | | + + + | Preferred Language | Unknown | + + + | Marital Status | | + + + | Rastafari Affiliation | 1041 | + + + | Race | Unknown | + + + | Ethnic Group | Unknown | + + + Author + + + | Author | [facility] | | | and [place] | + + + | Organization | [facility] [...] Team Providers + +------+ + | Care Blintze Roller Name | Role | Phone | + [...] [address] | [address], [place] | | | | | [place], [place] | [address] [place], [place] | | | | | [address] | [address] | | | | | [phone] | | | +--------+ + + + [...]
--- OUTSIDE RECORDS SUMMARY | ~2020-03-04 | XMS | Encounter Summary ---
Demographics + + + | Address | [address] | | | [place] [address] | + + + | Home Phone [...] | [facility] | [...] Team Providers + +------+ + | Care Animated Cartoons Painter Name | Role | Phone | + +------+ + PCP | Unavailable | + +------+ + Reason for Visit +--------+ + | Reason | Comments | +--------+ + | Other | Instructions | +--------+ + Encounter Details +--------+ + + + + | Date | Type | Department | Care Team | Description | +--------+ + + + + | 02/10/ | Telephone | [facility] | Jacki Wilkinson, | Other (Instructions) | | 2012 | | MEDICINE [place] | GASOLINE SERVICE ATTENDANT | | | | | [address] | | | | | | [place], [place] | | | | | | [address] | | | | | | [phone] | | | +--------+ + + + [...]
--- OUTSIDE RECORDS SUMMARY | ~2020-03-04 | XMS | Encounter Summary ---
Demographics + + + | Address | [address] | | | [place] [address] | + + + | Home Phone [...] + | Author | [facility] | | | and [place] | + + + | Organization | [facility] | | | [...] Team Providers + +------+ + | Care Engineering Psychologist Name | Role | Phone | + [...] [address] [place] | | | | | ([facility]) | [place] | [address] [place] | | | | | Procedures | [address] | [place] | | | | | [place] OFFICE | Phone: | [phone] Phone: | | | | | OUTPATIENT | [phone] | [phone] | | | | | VISIT 25 | Fax: | Fax: | | | | | MINUTES | [phone] | [phone] | +--------+--------+ + + + + Encounter Details +--------+---------+ + + + | Date | Type | Department | Care Team | Description | +--------+---------+ + + + | 08/02/ | Office | [facility] | Uche Orozco | End stage renal | | 2015 | Visit | NEPHROLOGY [address] | M, DO [address] | disease (HCC) | | | | [address] | [place], [place] [address] | (Primary Dx) | | | | [place] | [place] | | | | | [address] | [address] | | | | | [phone] | | | +--------+---------+ + + + [...] + + + | Blood Pressure | 150/80 | 08/02/2015 4:28 PM | | | | | PDT | | + + + + + | Pulse | - | - | | + + + + + | Temperature | 36.7 C (98.1 F) | 08/02/2015 4:28 PM | | | | | PDT [...] encounter Progress Notes Uche Orozco DO - 08/07/2015 4:28 PM PDT Subjective: [facility] DIALYSIS NOTE Patient ID: Celso Caro is a 55 y.o. male. HPI Comments: Monthly dialysis visit for this 55 YO male with ESRD secondar y to diabetic nephropathy, who is seen on outpatient HD, at the [facility] . He also has T2DM, requiring insulin, anemia secondary to CKD, hyperlipidemia, and Hepatit is C. He is making better effort at phosphorus control, and limiting his fluid intake lata cially on weekends. He is very pleasant and cooperative here in the clinic. Outpatient Prescriptions Marked as Taking for the 08/02/15 encounter (Office Visit) with Shaji Orozco DO Medication Sig Dispense Refill aspirin 81 mg EC tablet Take 81 mg by mouth Daily. atorvaSTATin (LIPITOR) 20 mg tablet Take 1 tablet by mouth Daily. 30 tablet 5 B Jarkagz-A-Yhhtp Acid (OLEG-TEQUILA RX) 1 MG TABS Take 1 mg by mouth Daily. 30 each 11 Cholecalciferol (VITAMIN D3) 5000 UNITS CAPS Take 2,000 Units by mouth Daily. cinacalcet (SENSIPAR) 30 mg tablet Take 1 tablet by mouth Daily. 90 tablet 4 doxercalciferol (HECTOROL) 4 MCG/2ML injection Inject 1.5 mcg into the vein Three times a week. epoetin padilla (EPOGEN, PROCRIT) 10,000 units/mL injection Inject 2,500 Units into the ve in Three times [...] Besylate Unknown Metformin Diarrhea Objective: Blood pressure 150/80, temperature 36.7 C (98.1 F). EDW 124.5 kg Physical Exam Heart: Regular rate and rhythm with no S3, S4, murmur or rub. Lungs: CTA bilaterally. No rales or wheezes. Abdomen: Soft, flat, nontender, normoactive bowel sounds. Extremities: No clubbing, cyanosis, or edema. LAB: BUN 63, Cr 12.5, K+ 5.3, HCO3 19, Ca++ 8.1, phosphorus 7.6, albumin 3.8, PTH 603, Hb 11.4, eKT/V = 1.35. Assessment: 1. ESRD-- he appears well dialyze clinically on the current Rx. He appears to be making better effort with fluid restriction especially on weekends. 2. Hypertension--appears stable at his current dry weight and with lisinopril. 3. Anemia-- his Hb is drifting above target. Will decrease EPO by 25% per the algorithm. Will recheck his formal iron profile next month. 4. SHPTH-- his PTH does appear to be improving over time. I reviewed with him features of a 1000 mg phosphorus restriction. 5. Nutrition-- his appetite is excellent. 6. Type 2 DM--need to recheck his HbA1c. 7. Hepatitis C--AST has been stable. 8. Hyperlipidemia--Will recheck the lipid profile next quarter. 9. Transplantation-- he is hopeful that he may get a second chance at being listed. 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 Plan: 1. Need to recheck his formal lipid profile and HbA1c. 2. Will increase Hectorol per the [facility] algorithm to target his PTH 1 50 300. 3. Will recheck him in 2 weeks. 4. Flu vaccine IM 1 was given to the patient. CC: [facility] documented in thi s encounter Plan of Treatment Not on filedocumented as of this encounter Visit Diagnoses + + | Diagnosis | + + | End stage renal disease (HCC) - Primary End stage renal disease | + + documented in this encounter"
--- OUTSIDE RECORDS SUMMARY | ~2020-03-04 | XMS | Encounter Summary ---
Demographics + + + | Address | [address] | | | [place] [address] | + + + | Home Phone [...] [facility] | | | [...] Team Providers + +------+ + | Care Flooring Mechanic Name | Role | Phone | [...] | [address] | [place], [address] | | | | | [place] | [place] | | | | | [address] | [address] | | | | | [phone] | | | +--------+ + + + [...] pt. 2. QB = 475 ml/min with SUSTAINABILITY PROJECT MANAGER < 200 mmHg at the [facility]. documented in thi s encounter Plan of Treatment Not on filedocumented as of this encounter Visit Diagnoses + + | Diagnosis | + + | End stage renal disease (HCC) - Primary End stage renal disease | + + documented in this encounter"
--- OUTSIDE RECORDS SUMMARY | ~2020-03-04 | XMS | Encounter Summary ---
Demographics + + + | Address | [address] | | | [place] [address] | + + + | Home Phone [...] | Located Within [facility] | | [...] Team Providers + +------+ + | Care Slip Cover Estimator Name | Role | Phone | + [...] [place] | | | | | ([facility]) | [place] | [address] [place] | | | | | Anemia in | [address] | [place] | | | | | chronic | Phone: | [address] Phone: | | | | | kidney | [phone] | [phone] | | | | | disease(285. | Fax: | Fax: | | | | | 21) | [phone] | [phone] | | | | | Procedures | | | | | | | CO OFFICE | | | | | | [...] | [address] | [place], [place] | (Primary Dx); Type | | | | [place], [place] | [place], [place] | II or unspecified | | | | [address] | [address] | type diabetes | | | | [phone] | | mellitus with renal | | [...] DO - 08/03/2014 4:33 PM PDT [facility] Patient ID: CELSO CARO is a 54 y.o. male. HPI Comments: Monthly dialysis visit for this 54 YO male with ESRD secondar y to diabetic nephropathy, who is seen on outpatient HD at the [facility]. He also has T2DM, requiring insulin, [...] by mouth Daily. 30 tablet 5 B Verosay-K-Obqdr Acid (OLEG-TEQUILA RX) 1 MG TABS Take [...] him that he needs to see a Giver, i.e. DPJean, soon to evaluate the large , noninfected callous on his right 2nd toe. 4. He will follow with Dr. Kuo in next 2 weeks. CC: [facility] documented in thi s encounter [...]
--- OUTSIDE RECORDS SUMMARY | ~2020-03-04 | XMS | Encounter Summary ---
Demographics + + + | Address | [address] | | | [place] [address] | + + + | Home Phone [...] | [facility] | [...] Team Providers + +------+ + | Care Grocery Department Manager Name | Role | Phone | [...] | | | disease | [place] | [place], [place] | | | | | (HCC) | [place] | [address] [place] | | | | | Procedures | [address] | [place], [place] | | | | | IN ESRD | [place], | [address] Phone: | | | | | RELATED SVC | [place] | [phone] | | | | | MONTHLY | [address] | Fax: | | | | | 20&/> YR OLD | Phone: | [phone] | | | | | 4/> VISITS | [phone] | | | | | | dialysis | Fax: | | | | | | | [phone] | | + +--------+ + + + [...] | [address] | [place], [address] | (Primary Dx) | | | | [place], [place] | [place], [place] | | | | | [address] | [address] | | | | | [phone] | | | +--------+ + + + [...] DO - 09/29/2019 9:15 AM PST Subjective: [facility] DIALYSIS NOTE Patient ID: Celso Caro is a 59 y.o. male. 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 His d ialysis runs are basically [...] CKD/MBD--treated with Velphoro, and Hectorol at the [facility], [place], [place]. Outpatient Medications Marked as Taking for the 09/29/19 encounter (Off-Site Visit) with Shaji Orozco DO Medication Sig Dispense Refill apixaban (ELIQUIS) 5 mg tablet Take 2.5 mg by mouth 2 times daily. B Jdrchsf-J-Nmokl Acid (OLEG-TEQUILA RX) 1 MG TABS Take [...] profile HbA1c and PTH next month. : [facility] Toby Schuster DPM documented in thi s [...]
--- OUTSIDE RECORDS SUMMARY | ~2020-03-04 | XMS | Encounter Summary ---
Demographics + + + | Address | [address] | | | [place] [address] | + + + | Home Phone [...] Organization | [facility] | | | and [place] [...] Team Providers + +------+ + | Care Supervisor Abattoir Name | Role | Phone | + [...] | | | foot (HCC) | [place] [address] | | | | | | Diabetic | Phone: | | | | | | ulcer of | [phone] | | | | | | left midfoot | Fax: | | | | | | associated | [phone] | | | | | | with type 2 | | | | | | | diabetes | | | | | | | mellitus, | | | | | | | with other | | | | | | | ulcer | | | | | | | severity | | | | | | | ([facility]) | | | +--------+ + + + [...] + + | 01/08/ | Hospital | [facility] | Bryant Mares MD | Cellulitis, | | 2019 - | Encounter | [facility] | [address] | unspecified | | | | [address] [place] | [place] | cellulitis site | | 01/11/ | | [place] [address] | [address] | (Primary Dx); End | | 2019 | | [phone] | | stage renal disease | | | | | Estiven Ramirez | ([facility]); Osteomyelitis | | | | | Anival, MD [address] | of left foot, | | | | | [address] [place] | unspecified type | | | | | [place] [address] | ([facility]); Essential | | | | | [phone] | hypertension; Anemia | | | | | | in ESRD (end-stage | | | | | | renal disease) | | | | | | ([facility]); Paroxysmal | | | | | | atrial flutter | | | | | | ([facility]); Osteomyelitis | | | | | | of fourth toe of | | | | | | left foot ([facility]); | | | | | | Diabetes mellitus, | | | | | | type II, insulin | | | | | | dependent ([facility]); | | | | | | Cellulitis of left | | | | | | lower extremity; | | | | | | Typical atrial | | | | | | flutter ([facility]); ESRD | | | | | | (end stage renal | | | | | | disease) ([facility]); | | | | | | Insulin dependent | | | | | | diabetes mellitus | | | | | | ([facility]); Peripheral | | | | | | artery disease | | | | | | ([facility]); | | | | | | Hyperlipidemia, [...] severity | | | | | | ([facility]); Diabetic | | | | | | ulcer of left | | | | | | midfoot associated | | | | | | with type 2 diabetes | | | | | | mellitus, with | | | | | | other ulcer severity | | | | | | ([facility]) | +--------+ + + + + Social [...] + subjective fever/chills. Pt initially went to [facility] and was then sent t [...] MRI and radiographs August 2018 TECHNIQUE: [facility] 3T MR sequences of the left foot [...] + + +---------+ + + | B Mohenqo-K-Qiudz | Take 1 mg by mouth | [...] Prior to Admission Sig: Patient taking differently SUPERVISOR BLUEPRINTING AND PHOTOCOPY as: Cinacalcet 60 mg tab 1 tab [...] Patient states he forgets often. Best possible SUPERVISOR BLUEPRINTING AND PHOTOCOPY medication list after pharmacy review: PT REPORTED [...] Taking 30 each C [facility] ADMITTING CLERK Cholecalciferol (VITAMIN D3) 5000 UNITS CAPS Take [...] the skin 2 t imes daily. Taking Cristian Quinones PA-C loperamide (ANTI-DIARRHEAL) 2 MG tablet [...] performed and electronically signed by Lilian Kinney, Mail Processing Machine Operator 01/11/2019 13:17 Reviewed by Vale Rojas PharmD 01/11/2019 14:39 Edel, Lexi Banks MD - 01/11/2019 10:15 AM PDT [facility] NEPHROLOGY progress note Patient: Celso Caro [...] Lexi Kuo MD Electronically signed: 01/11/2019 10:16 [facility] NEPHROLOGY Cristina Sotelo DPM - 01/11/2019 9:11 AM PDT Foot & Ankle Surgery Progress Note Cristina Sahni DP Celso Sutton Case Age/Gender 58 y.o. male Location [facility] MEDICAL Attending Estiven Ramirez MD [...] Value Units Date/Time Culture, Wound, Smear, w/Anaerobe [[id number]] Collected: 01/10/191529 Order Status: Sent Lab Status: In process Updated: 01/10/191610 Specimen: Tissue from Toe, Fourth, Left Narrative: The following orders were created for panel order Culture, Wound, Smear, w/Anaerobe. Procedure Abnormality Status --------- ------ Culture, Wound, Smear[[id number]] Normal Preliminary result Culture, Anaerobic[[id number]] In process Please view results for these tests on the individual orders. Culture, Wound, Smear [[id number]] (Normal) Collected: 01/10/191529 Order Status: Completed Lab Status: Preliminary result Updated: 01/11/19 08 Specimen: Tissue from Toe, Fourth, Left Culture No growth to date Gram Stain Result 2+ White Blood Cells No squamous epithelial cells seen No organisms seen Culture, Anaerobic [[id number]] Collected: 01/10/191529 Order Status: Resulted Lab Status: In process Updated: 01/10/191610 Specimen: Tissue from Toe, Fourth, Left Assessment: Celso Sutton Case is a 58 y.o. male S/p toe amputation for osteomyelitis. Currently with imp roved pain and swelling after procedure. Plan: Dressing may be left intact until post op appointment on at [facility]. Okay to place weight on left heel [...] Case : 1960: Age: 58 y.o. MedRec: [id number] PCP: Cristina Quinones PA-C Admission date: 01/08/2019 [...] too. May get his wound care at [facility] area too after Disc harged. 2. [...] + subjective fever/chills. Pt initially went to [facility] and was then sent t [...] with urinary obstruction; Diabetes mellitus, type 2 ([facility]) (); Diabetic foot ulcer ([facility]) (01/01/12); ESRD (end stage renal disease) on dialysis ([facility]) ( 1999); Heart murmur; Hepatitis C (2006); Hyperlipidemia; Hypertension (2001); Obesity; Parox ysmal atrial flutter ([facility]); Recurrent UTI; and Vitamin D deficiency. . [...] Procedure Component Value Units Date/Time Clostridium difficile [[id number]] (Normal) Collected: 01/10/19 0152 Order Status: Completed Lab Status: Final result Updated: 01/10/19 0504 Specimen: Stool from Stool Clostridium difficile DNA Negative Culture, MRSA [[id number]] (Normal) Collected: 01/09/19 0600 Order Status: Completed Lab Status: Final result Updated: 01/10/19 0821 Specimen: Tissue from Leg, Left Culture Negative for MRSA by chromogenic agar method Culture, Wound, Smear, w/Anaerobe [[id number]] Collected: 01/09/19599 Order Status: Sent Lab Status: In process Updated: 01/09/19637 Specimen: Tissue from Toe, Fourth, Left Narrative: The following orders were created for panel order Culture, Wound, Smear, w/Anaerobe. Procedure Abnormality Status --------- ------ Culture, Wound, Smear[[id number]] Preliminary result Culture, Anaerobic[[id number]] In process Please view results for these tests on the individual orders. Culture, Wound, Smear [[id number]] Collected: 01/09/19599 Order Status: Completed Lab Status: Preliminary result Updated: 01/10/19 110 Specimen: Tissue from Leg, Left Culture 2+ Gram Positive Cocci Comment: Isolating for additional information. Gram Stain Result 1+ White Blood Cells 2+ Epithelial cells No organisms seen Culture, Anaerobic [[id number]] Collected: 01/09/19599 Order Status: Sent Lab Status: In process Updated: 01/09/19637 Specimen: Tissue from Toe, Fourth, Left Culture, Blood [[id number]] (Normal) Collected: 01/08/19 1644 Order Status: Completed Lab Status: Preliminary result Updated: 01/09/19450 Specimen: Blood from Peripheral Blood Culture No growth: Monitored continually by instrument for 5 days Culture, Blood [[id number]] (Normal) Collected: 01/08/19 1636 Order Status: Completed [...] (h/o aflutter) Prior to admission dialysis schedule: [facility] Vancomycin Dosing in HD patients: If [...] Caro : 1960: Age: 58 y.o. MedRec: [id number] PCP: Cristina Quinones PA-C Admission date: 01/08/2019 [...] + subjective fever/chills. Pt initially went to [facility] and was then sent t [...] left foot : I jefferson ve contracted Paving Block Cutter and plan to have Amputation. On Vanc [...] ESRD (end stage renal disease) on dialysis ([facility]) ( 1999); Heart murmur; Hepatitis C (2006); [...] Procedure Component Value Units Date/Time Clostridium difficile [[id number]] Collected: 01/10/19 0152 Order Status: Sent Lab Status: In process Updated: 01/10/19 020 Specimen: Stool from Stool Culture, MRSA [[id number]] Collected: 01/09/19599 Order Status: Sent Lab Status: In process Updated: 01/09/19637 Specimen: Tissue from Leg, Left Culture, Wound, Smear, w/Anaerobe [[id number]] Collected: 01/09/19599 Order Status: Sent Lab Status: In process Updated: 01/09/19637 Specimen: Tissue from Toe, Fourth, Left Narrative: The following orders were created for panel order Culture, Wound, Smear, w/Anaerobe. Procedure Abnormality Status --------- ------ Culture, Wound, Smear[[id number]] In process Culture, Anaerobic[[id number]] In process Please view results for these tests on the individual orders. Culture, Wound, Smear [[id number]] Collected: 01/09/19599 Order Status: Sent Lab Status: In process Updated: 01/09/19647 Specimen: Tissue from Leg, Left Culture, Anaerobic [[id number]] Collected: 01/09/19599 Order Status: Sent Lab Status: In process Updated: 01/09/19637 Specimen: Tissue from Toe, Fourth, Left Culture, Blood [[id number]] (Normal) Collected: 01/08/19 1644 Order Status: Completed Lab Status: Preliminary result Updated: 01/09/19450 Specimen: Blood from Peripheral Blood Culture No growth: Monitored continually by instrument for 5 days Culture, Blood [[id number]] (Normal) Collected: 01/08/19 1636 Order Status: Completed [...] with urinary obstruction; Diabetes mellitus, type 2 ([facility]) (); Diabetic foot ulcer ([facility]) (01/01/12); ESRD (end stage renal disease) on dialysis ([facility]) ( 1999); Heart murmur; Hepatitis C (2006); Hyperlipidemia; Hypertension (2001); Obesity; Parox ysmal atrial flutter ([facility]); Recurrent UTI; and Vitamin D deficiency. . Risk factors for MDR organisms include recent healthcare contact, h/o MRSA, h/o Psudomonas and h/o resistant orga nism. HPI: Celso Caor is a 58 y.o. male who presents [...] Procedure Component Value Units Date/Time Culture, Blood [[id number]] Collected: 01/08/19 1644 Order Status: Sent Lab Status: In process Updated: 01/08/19 1645 Specimen: Blood from Peripheral Blood Culture, Blood [[id number]] Collected: 01/08/19 1636 Order Status: Sent Lab [...] | | | | | | foot ([facility]) Diabetic | | | | | | ulcer of left | | | | | | midfoot associated | | | | | | with type 2 diabetes | | | | | | mellitus, with | | | | | | other ulcer severity | | | | | | ([facility]) | | + + +--------+ + + [...] M?MRN: | | | | | | [id number] | | | [id number] | | | riteri | | | [...] | | | St. | | | [place] | | | y | | | [...] | | | St. | | | [place] | | | y | | | [...] | | | St. | | | [place] | | | y H. | | [...] | | | ent/27 | | | [id number] | | | -ed9e- | | | [...] St | [place] | [phone] | | [facility] | | [address] | | | - LABORATORY | | [...] [address] | [place] | [phone] | | [facility] | | [address] | | | - LABORATORY | | [...] St | [place] | [phone] | | [facility] | | [address] | | | - LABORATORY | | [...] St | [place] | [phone] | | [facility] | | [address] | | | - LABORATORY | | [...] + | [facility] | [address] | [place] | [phone] | | [facility] | | [address] | | | - LABORATORY | | [...] ST. | [address] | [place], [place] | [phone] | | [facility] | | [address] | | | - LABORATORY | | [...] + | [facility] | [address] | [place] | [phone] | | [facility] | | [address] | | | - LABORATORY | | [...] St | [place] | [phone] | | [facility] | | [address] | | | - LABORATORY | | [...] mL/min/1.73m2 | [facility] | | | [place] | | | MEDICAL | | | [...] + | [facility] | [address] | [place] | [phone] | | [facility] | | [address] | | | - LABORATORY | | [...] St | [place] | [phone] | | [facility] | | [address] | | | - LABORATORY | | [...] ST. | [address] | [place], [place] | [phone] | | [facility] | | [address] | | | - LABORATORY | | [...] | negative for evidence of pathologic inflammation. JVR:[facility]:C2NR | | | MICROSCOPIC EXAMINATION: Histologic sections [...] firm bony cut surface. | | | Truck Caterer sections are submitted in cassettes (A1-A2) and [...] component was performed by | | | [facility], [address] [place] [id number] (Medical | | | Director: Val Gomez MD; CLIA# [id number]). Professional | | | interpretation was performed by [employer] Tammy Bey | | | [facility], [address], [place], [place] | | | [address] (Visual Merchandising Coordinator: Sudhakar Weber M.D.). Diagnostician: | | | [...] St | [place] | [phone] | | [facility] | | [address] | | | - LABORATORY | | [...] [address] | [place] | [phone] | | [facility] | | [address] | | | - LABORATORY | | [...] St | [place] | [phone] | | [facility] | | [address] | | | - LABORATORY | | [...] + | [facility] | [address] | [place] | [phone] | | [facility] | | [address] | | | - LABORATORY | | [...] [address] | [place] | [phone] | | [facility] | | [address] | | | - LABORATORY | | [...] [address] | [place] | [phone] | | [facility] | | [address] | | | - LABORATORY | | [...] St | [place] | [phone] | | [facility] | | [address] | | | - LABORATORY | | [...] [address] | [place] | [phone] | | [facility] | | [address] | | | - LABORATORY | | [...] St | [place] | [phone] | | [facility] | | [address] | | | - LABORATORY | | [...] + | [facility] | [address] | [place] | [phone] | | [facility] | | [address] | | | - LABORATORY | | [...] mL/min/1.73m2 | [facility] | | | [place] | RATE,ESTIMATED | | MEDICAL | | | | mL/min/1.75w6Kskd than | | CENTER - | | [...] St | [place] | [phone] | | [facility] | | [address] | | | - LABORATORY | | [...] + | [facility] | [address] | [place] | [phone] | | [facility] | | [address] | | | - LABORATORY | | [...] + + | Performing | Address | City/State/[facility] | Phone Number | | [...] St | [place] | [phone] | | [facility] | | [address] | | | - LABORATORY | | [...] + | [facility] | [address] | [place] | [phone] | | [facility] | | [address] | | | - LABORATORY | | [...] St | [place] | [phone] | | [facility] | | [address] | | | - LABORATORY | | [...] + | [facility] | [address] | [place] | [phone] | | [facility] | | [address] | | | - LABORATORY | | [...] St | [place] | [phone] | | [facility] | | [address] | | | - LABORATORY | | [...] mL/min/1.73m2 | [facility] | | | [place] | | | MEDICAL | | | [...] ST. | [address] | [place], [place] | [phone] | | [facility] | | [address] | | | - LABORATORY | | [...] St | [place] | [phone] | | [facility] | | [address] | | | - LABORATORY | | [...] St | [place] | [phone] | | [facility] | | [address] | | | - LABORATORY | | [...] Osteomyelitis of fourth toe of left foot ([facility]) | + + | Diabetes mellitus, type II, insulin dependent ([facility]) Type II or unspecified type | | diabetes mellitus without mention of complication, not stated as uncontrolled | + + | Typical atrial flutter ([facility]) Atrial flutter | + + | ESRD (end stage renal disease) ([facility]) End stage renal disease | + + [...] | | Oral, DAILY, First dose on [facility] | | AM PDT | | | [...] PDT | | | | | Starting [facility] 01/09/19 at 1147, | | | | [...] | | | | | | use [place] 10/325 if ordered. If | | | [...] | | | | | | Starting [facility] 01/09/19 at 0304 | | | [...] | | | | | dose on [facility] 01/09/19 at 0000, Hold | | | [...] AM PDT | | | | | [facility] 01/09/19 at 0730, Indication: | | | [...] | | | | | dose on [facility] 01/09/19 at 0900 | | AM [...] | | | | | dose on [facility] 01/09/19 at 1200, Do | | [...]
--- OUTSIDE RECORDS SUMMARY | ~2020-03-04 | XMS | Encounter Summary ---
Demographics + + + | Address | [address] | | | [place] [address] | + + + | Home Phone | | + + + | Preferred Language | Unknown | + + + | Marital Status | | + + + | Alevism Affiliation | 1041 | + + + | Race | Unknown | + + + | Ethnic Group | Unknown | + + + Author + + + | Author | [facility] | | | and [place] | + + + | Organization | [facility] | | | and [place] [...] Team Providers + +------+ + | Care Granular Operator Name | Role | Phone | [...] [address] | [address], [place] | | | | | [place] | [address] [place] | | | | | [address] | [address] | | | | | [phone] | | | +--------+ + + + [...]
--- OUTSIDE RECORDS SUMMARY | ~2020-03-04 | XMS | Encounter Summary ---
Demographics + + + | Address | [address] | | | [place] [address] | + + + | Home Phone | | + + + | Preferred Language | Unknown | + + + | Marital Status | | + + + | Gnosticist Affiliation | 1041 | + + + | Race | Unknown | + + + | Ethnic Group | Unknown | + + + Author + + + | Author | [facility] | | | and Scarana | + + + | Organization | [facility] | | [...] Team Providers + +------+ + | Care Mobile Developer Name | Role | Phone | [...] | renal | PA-C 2229 | [address] | | | | | disease | NW | [place], [place] | | | | | ([facility]) | [place] | [address] [facility] | | | | | Procedures | [address] | [place] | | | | | [place] ESRD | [place], | [address] Phone: | | | | | RELATED SVC | [place] | [phone] | | | | | MONTHLY | [address] | Fax: | | | | | 20&/> YR OLD | Phone: | [phone] | | | | | 4/> VISITS | [phone] | | | | | | dialysis | Fax: | | | | | | | [phone] | | + +--------+ + + + [...] | [address] | [place], [address] | (Primary Dx) | | | | [place], [place] | [place] | | | | | [address] | [address] | | | | | [phone] | | | +--------+ + + + [...] 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 Outpatient Medications Marked as Taking for the 06/02/19 encounter (Off-Site Visit) with Naveen Orozco DO Medication Sig Dispense Refill apixaban (ELIQUIS) 5 mg tablet Take 2.5 mg by mouth 2 times daily. B Arsxphh-I-Oabba Acid (OLEG-TEQUILA RX) 1 MG TABS Take [...] stable on his curren t Rx. : [facility] Toby Schuster DPM documented in thi s [...]
--- OUTSIDE RECORDS SUMMARY | ~2020-03-04 | XMS | Encounter Summary ---
Demographics + + + | Address | [address] | | | [place] [address] | + + + | Home Phone | | + + + | Preferred Language | Unknown | + + + | Marital Status | | + + + | Rastafarian Affiliation | 1041 | + + + | Race | Unknown | + + + | Ethnic Group | Unknown | + + + Author + + + | Author | [facility] | | | and Scarana | + + + | Organization | [facility] | | | and [place] [...] Team Providers + +------+ + | Care Iphone Developer Name | Role | Phone | [...] [address] | [address], [place] | V ([facility]) (Primary | | | | [place], [place] | [address] [place], [place] | Dx); Secondary | | | | [address] | [address] | hyperparathyroidism | | | | [phone] | | (of renal origin) | | [...]
--- OUTSIDE RECORDS SUMMARY | ~2020-03-04 | XMS | Encounter Summary ---
Demographics + + + | Address | [address] | | | [place] [address] | + + + | Home Phone | | + + + | Preferred Language | Unknown | + + + | Marital Status | | + + + | Taoism Affiliation | 1041 | + + + | Race | Unknown | + + + | Ethnic Group | Unknown | + + + Author + + + | Author | [facility] | | | and Scarana | + + + | Organization | [facility] | [...] Team Providers + +------+ + | Care Welder Fitter Apprentice Name | Role | Phone | + [...] + + | 09/07/ | Anesthesia | [facility] | Saima Moss MD | | | 2018 | Event | MED CTR OR INTRA OP | [address] | | | | | [address] | [place] | | | | | [place] | [address] | | | | | [address] | | | | | | [phone] | | | +--------+ + + + [...] +----+---+ + + | | 1 | [place] | | | | 0 | 43-degrees [...] +----+---+ + + | | 1 | [place] off | | | | 1 | [...] | 09/09/180 by | | eral | tlap-zll-btzhgz catheter system; | Dhara Baxter | Komal [...] - 09/07/2018 10:14 AM PST Anesthesia Airway Iweznwyyp27/1/2018 | | 9:52Preprocedure check: patient identified, suction, [...]
--- OUTSIDE RECORDS SUMMARY | ~2020-03-04 | XMS | Encounter Summary ---
Demographics + + + | Address | [address] | | | [place] [address] | + + + | Home Phone | | + + + | Preferred Language | Unknown | + + + | Marital Status | | + + + | Moravian Affiliation | 1041 | + + + | Race | Unknown | + + + | Ethnic Group | Unknown | + + + Author + + + | Author | [facility] and [facility] | | | and Scarana | + + + | Organization | [facility] | | | and [...] Team Providers + +------+ + | Care Wallcovering Texturer Name | Role | Phone | + [...] | | | disease | NW | [place], [place] | | | | | ([facility]) | [place] | [address] | | | | | Procedures | [address] | [place] | | | | | [place] OFFICE | [facility] | [address] Phone: | | | | | OUTPATIENT | [place] | [phone] | | | | | VISIT 25 | [address] | Fax: | | | | | MINUTES | Phone: | [phone] | | | | | dialysis | [phone] | | | | | | | Fax: | | | | | | | [phone] | | +--------+--------+ + + + + [...] | [address] | [place], [address] | (Primary Dx) | | | | [place] | [place] | | | | | [address] | [address] | | | | | [phone] | | | +--------+ + + + [...] is seen on outpatient HD, at the [facility], [place] . He also has T2DM, requiring insulin, anemia secondary to CKD, hyperlipidemia, and Hepatit is C. He denies cramps, peripheral edema, dyspnea or anorexia. 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 H e appears to be doing better on his fluid restriction. Outpatient Prescriptions Marked as Taking for the 08/28/16 encounter (Off-Site Visit) with Uche Orozco DO Medication Sig Dispense Refill aspirin 81 mg EC tablet Take 81 mg by mouth Daily. atorvaSTATin (LIPITOR) 20 mg tablet Take 1 tablet by mouth Daily. 30 tablet 5 B Tseewwg-Y-Pvrbm Acid (OLEG-TEQUILA RX) 1 MG TABS Take [...] Will recheck him in 2 weeks. : [facility] Electronically signed by Uche Orozco DO at 1 11/20/2015 12:21 PM PSTdocumented in this encounter Plan of Treatment Not on filedocumented as of this encounter Visit Diagnoses + + | Diagnosis | + + | End stage renal disease (HCC) - Primary End stage renal disease | + + documented in this encounter"
--- OUTSIDE RECORDS SUMMARY | ~2020-03-04 | XMS | Encounter Summary ---
Demographics + + + | Address | [address] | | | [place] [address] | + + + | Home Phone | | + + + | Preferred Language | Unknown | + + + | Marital Status | | + + + | Uatsdin Affiliation | 1041 | + + + | Race | Unknown | + + + | Ethnic Group | Unknown | + + + Author + + + | Author | [facility] and [facility] | | | and Scarana | + + + | Organization | [facility] | | | and [...] Team Providers + +------+ + | Care Hatchery Attendant Name | Role | Phone | [...] | | | disease | NW | [place], [place] | | | | | ([facility]) | [place] | [address] | | | | | Procedures | [address] | [place] | | | | | [place] OFFICE | [facility] | [address] Phone: | | | | | OUTPATIENT | [place] | [phone] | | | | | VISIT 25 | [address] | Fax: | | | | | MINUTES | Phone: | [phone] | | | | | dialysis | [phone] | | | | | | | Fax: | | | | | | | [phone] | | +--------+--------+ + + + + Encounter Details +--------+ + + + + | Date | Type | Department | Care Team | Description | +--------+ + + + + | 04/02/ | Off-Site | [facility] [place] | Uche Orozco | End stage renal | | 2017 | Visit | NEPHROLOGY [address] | M, DO [address] | disease (HCC) | | | | [address] | [place], [address] | (Primary Dx) | | | | [place] | [place] | | | | | [address] | [address] | | | | | [phone] | | | +--------+ + + + [...] + + + | Blood Pressure | 140/66 | 04/02/2017 5:51 PM | | | | | PDT | | + + + + + | Pulse | - | - | | + + + + + | Temperature | 36.4 C (97.5 F) | 04/02/2017 5:51 PM | | | | | PDT [...] encounter Progress Notes Uche Orozco DO - 04/02/2017 9:30 AM PDT Subjective: [facility] DIALYSIS NOTE Patient ID: Celso Sutton Case is a 57 y.o. male. HPI Comments: Celso is seen on the MWF shift at [place], [place]. He is a pleasant, 56 YO male with ESRD secondary to diabetic nephropathy. He denies chest tyra n, cramps, or anorexia. He is still working part time. He also has a History of T2DM, requiring insulin, anemia secondary to CKD, hyperlipidemia, and Hepatitis C. Outpatient Prescriptions Marked as Taking for the 04/02/17 encounter (Off-Site Visit) with Jean Orozco DO Medication Sig Dispense Refill aspirin 81 mg EC tablet Take 81 mg by mouth Daily. atorvaSTATin (LIPITOR) 20 mg tablet Take 1 tablet by mouth Daily. 30 tablet 5 B Olfuile-B-Shrcl Acid (OLEG-TEQUILA RX) 1 MG TABS Take 1 mg by mouth Daily. 30 each 11 calcium acetate (PHOSLO) 667 mg capsule Take 1,334 mg by mouth 3 times daily (with meal s). Cholecalciferol (VITAMIN D3) 5000 UNITS CAPS Take 2,000 Units by mouth Daily. cinacalcet (SENSIPAR) 60 MG tablet Take 1 tablet by mouth Daily. 30 tablet doxercalciferol (HECTOROL) 2 mcg/mL injection Inject 5 mcg into the vein Three times a week. epoetin padilla (EPOGEN,PROCRIT) 3,000 units/mL injection Inject 2,200 Units under the ski n Three times [...] Besylate Unknown Metformin Diarrhea Objective: Blood pressure 140/66, temperature 36.4 C (97.5 F). EDW 118.5 kg Physical Exam Heart: Regular rate and rhythm with no S3, S4, murmur or rub. Lungs: CTA bilaterally. No rales or wheezes. Abdomen: Soft, flat, nontender, normoactive bowel sounds. Extremities: No clubbing, cyanosis, or edema. LAB: BUN 56, Cr 9.5, K+ 4.8, HCO3 25, Ca++ 8.6, phosphorus 8.2, PTH 1176, Hb 11.2, eKT/V = 1.33. Assessment: 1. ESRD-- except for his PTH, he appears stable on an E19 dialyzer, 4 hours, 2K +, QB 500 , QD 600, thrice weekly 2. Hypertension-- BP appears stable on lisinopril, metoprolol. 3. Anemia secondary to CKD-- his anemia appears stable on the EPO algorithm. Will reche ck his T sat, ferritin next month. 4. SHPTH-- PTH is under suboptimal control despite a very high-dose of Hectorol. Will nee d to drop back from the higher dose to avoid contributing to his hyperphosphatemia. I encou raged Herman to take his Sensipar as consistently as possible. 5. Nutrition--his appetite is robust on his current Rx. 6. Type 2 DM-- Will recheck the HbA1c next month. 7. Hepatitis C--transaminases have been stable . 8. Hyperlipidemia--on statin Rx. 9. Transplantation--work up in progress. Plan: 1. I discussed with Herman about PTH ectomy however he declines that. He states that he wou ld prefer to utilize medicines. 2. I reinforced the need for a <1000 mg phosphorus diet. 3. His BP, and ECF volume appear stable on his current Rx, thrice weekly. 4. Will recheck him in 2 weeks. : [facility] Monica Cornejo MD documented in thi s encounter Plan of Treatment Not on filedocumented as of this encounter Visit Diagnoses + + | Diagnosis | + + | End stage renal disease (HCC) - Primary End stage renal disease | + + documented in this encounter"
--- OUTSIDE RECORDS SUMMARY | ~2020-03-04 | XMS | Encounter Summary ---
Demographics + + + | Address | [address] | | | [place] [address] | + + + | Home Phone [...] Organization | [facility] | | [...] Team Providers + +------+ + | Care Spectroscopist Name | Role | Phone | + [...] | | | [address] | [place], [address] | (Primary Dx); | | | | [place], [place] | [place] | Chronic | | | | [address] | [address] | osteomyelitis of | | | | [phone] | | foot (HCC) | +--------+ + [...]
--- OUTSIDE RECORDS SUMMARY | ~2020-03-04 | XMS | Encounter Summary ---
Demographics + + + | Address | [address] | | | [place] [address] | + + + | Home Phone [...] | Organization | [facility] | [...] Team Providers + +------+ + | Care Wash Tank Tender Name | Role | Phone | + +------+ + PCP | Unavailable | + +------+ + Encounter Details +--------+ + + + + | Date | Type | Department | Care Team | Description | +--------+ + + + + | 09/17/ | Documentati | [facility] [place] | Uche Orozco | | | 2017 | on | NEPHROLOGY [address] | M, DO [address] | | | | | [address] | [place], [address] | | | | | [place] | [place] | | | | | [address] | [address] | | | | | [phone] | | | +--------+ + + + [...] + + + | Blood Pressure | 138/59 | 09/17/2017 1:08 PM | | | | | PST | | + + + + + | Pulse | - | - | | + + + + + | Temperature | 36.2 C (97.2 F) | 09/17/2017 1:08 PM | | | | | PST [...] encounter Progress Notes Uche Orozco DO - 09/17/2017 11:59 PM PST Subjective: [facility] DIALYSIS NOTE Patient ID: Celso Caro is a 57 y.o. male. HPI Comments: Monthly dialysis this pleasant 57 YO male with ESRD secondar y to diabetic nephropathy. He had DIRECTOR OF CASEWORK of a cephalic-basilic vein venous stenosis last scar h by Dr. Cornejo. His QB and venous pressure are improved this month. No complaints excep t for mild fatigue. He also has a History of T2DM, requiring insulin, anemia secondary to CKD, hyperlipidemia, and Hepatitis C. Outpatient Prescriptions Marked as Taking for the 09/17/17 encounter (Documentation) with Jean Orozco DO Medication Sig Dispense Refill aspirin 81 mg EC tablet Take 81 mg by mouth Daily. atorvaSTATin (LIPITOR) 20 mg tablet Take 1 tablet by mouth Daily. 30 tablet 5 B Gvqpxkj-M-Mdoxj Acid (OLEG-TEQUILA RX) 1 MG TABS Take [...] epoetin padilla (EPOGEN,PROCRIT) 3,000 units/mL injection Inject 4,400 Units under the ski n Three times [...] Amlodipine Besylate Unknown Metformin Diarrhea Objective: BP 138/59 | Temp 36.2 C (97.2 F) EDW 118 kg Physical Exam Heart: Regular rate and rhythm with no S3, S4, murmur or rub. Lungs: CTA bilaterally. No rales or wheezes. Abdomen: Soft, flat, nontender, normoactive bowel sounds. Extremities: No clubbing, cyanosis, or edema. LAB: BUN 48, Cr 8.18, K+ 5.1, HCO3 26, Ca++ 9.1, P0 46.7, albumin 3.7, HbA1c 7.1%, Hb 10.8, eKT/V = 1.08. Assessment: 1. ESRD-- eKT/V is slightly lower although his hemoglobin parameters are better. Will rec heck this in 4 weeks. His prolonged bleeding posttreatment has greatly improved. 2. Hypertension--good control on lisinopril and UF. 3. Anemia secondary to CKD-- he is responding well to the current EPO algorithm. Will re check his iron profile next month. 5. Nutrition--overall, his serum albumin is trending up over the last 90 days. 6. Type 2 DM-- good control by last HbA1c. 7. Hepatitis C--transaminases have been stable . 8. Hyperlipidemia--on statin Rx. 9. Transplantation--work up in progress. Plan: 1. My gut feeling given the QB and venous pressure is that his EKG will improve. 2. I greatly appreciate Dr. Monica Cornejo's help with his F-gram. 3. Will recheck his iron profile and PTH next month. 4. Will recheck him in 2 weeks. : [facility] Monica Cornejo MD documented in thi s encounter Plan of Treatment Not on filedocumented as of this encounter Visit Diagnoses + + | Diagnosis | + + | End stage renal disease (HCC) - Primary End stage renal disease | + + documented in this encounter"
--- OUTSIDE RECORDS SUMMARY | ~2020-03-04 | XMS | Encounter Summary ---
Demographics + + + | Address | [address] | | | [place] [address] | + + + | Home Phone [...] + | Organization | [facility] | | [...] Team Providers + +------+ + | Care Job Setter Name | Role | Phone | [...] [address] | [address], [place] | V ([facility]) (Primary | | | | [place], [place] | [address] [place], [place] | Dx); Unspecified | | | | [address] | [address] | hypertensive kidney | | | | [phone] | | disease with chronic | | [...] Chronic kidney disease (CKD), stage V ([facility]) - Primary Chronic kidney disease, Stage V | + + | Unspecified hypertensive kidney disease with chronic kidney disease stage I through | | stage IV, or unspecified(403.90) Unspecified hypertensive kidney disease with chronic | | kidney disease stage I through stage IV, or unspecified | + + documented in this encounter"
--- OUTSIDE RECORDS SUMMARY | ~2020-03-04 | XMS | Encounter Summary ---
Demographics + + + | Address | [address] | | | [place] [address] | + + + | Home Phone [...] Organization | [facility]thy [...] Team Providers + +------+ + | Care Flipping Machine Operator Name | Role | Phone [...] [address] | [address], [place] | | | | | [place], [place] | [address] [place] | | | | | [address] | [address] | | | | | [phone] | | | +--------+ + + + [...]
--- OUTSIDE RECORDS SUMMARY | ~2020-03-04 | XMS | Encounter Summary ---
Demographics + + + | Address | [address] | | | [place] [address] | + + + | Home Phone [...] Organization | [facility] [...] Providers + +------+ + | Care Warehouse Examiner Name | Role | Phone | + +------+ + PCP | Unavailable | + +------+ + Encounter Details +--------+ + + + + | Date | Type | Department | Care Team | Description | +--------+ + + + + | 07/28/ | Hospital | [facility] | Artem Angelo | | | 2012 | Encounter | MED CTR MP INTRA OP | MD [place], [address] | | | | | [address] | [place] | | | | | [place] | [place] [address] | | | | | [address] | [phone] | | | | | [phone] | | | +--------+ + + + [...] + + +---------+ + + | B Xeabkcq-Z-Ebvad | Take 1 mg by mouth | [...] St | [place] | [phone] | | [facility] | | [address] | | | - LABORATORY | | | | + + + + + | [facility] | [address] | [place], [place] | | | [facility] | | [address], [facility] | | | - LABORATORY | [...] + | [facility] | [address] | [place] | [phone] | | [facility] | | [address] | | | - LABORATORY | | | | + + + + + | [facility] | [address] | [place], [place] | | | [facility] | | [id number] [place] [address] | | | - LABORATORY | | [...] + | [facility] | [address] | [place] | [phone] | | [facility] | | [address] | | | - LABORATORY | | | | + + + + + | [facility] | [address] | [place] | | | [facility] | | [address] | | | - LABORATORY [...] + | [facility] | [address] | [place], [place] | [phone] | | [facility] | | [address] | | | - LABORATORY | | | | + + + + + | [facility] | [address] | [place], [place] | | | [facility] | | [address] [place] [address] | | | - LABORATORY | | [...] St | [place] | [phone] | | [facility] | | [address] | | | - LABORATORY | | | | + + + + + | [facility] | [address] | [place] | | | [facility] | | [address], [facility] | | | - LABORATORY | [...] + | [facility] | [address] | [place] | [phone] | | [facility] | | [address] | | | - LABORATORY | | | | + + + + + | [facility] | [address] | [place] | | | [facility] | | [address] [place] [address] | | | - LABORATORY | | [...] + | [facility] | [address] | [place], [place] | [phone] | | [facility] | | [address] | | | - LABORATORY | | | | + + + + + | [facility] | [address] | [place], [place] | | | [facility] | | [id number] [place] [address] | | | - LABORATORY | | [...] + | [facility] | [address] | [place], [place] | [phone] | | [facility] | | [address] | | | - LABORATORY | | | | + + + + + | [facility] | [address] | [place], [place] | | | [facility] | | [address], [facility] | | | - LABORATORY | [...] + | [facility] | [address] | [place], [place] | [phone] | | [facility] | | [address] | | | - LABORATORY | | | | + + + + + | [facility] | [address] | [place] | | | [facility] | | [address], [facility] | | | - LABORATORY | [...] St | [place] | [phone] | | [facility] | | [address] | | | - LABORATORY | | | | + + + + + | [facility] | [address] | [place] | | | [facility] | | [address], [facility] | | | - LABORATORY | [...] | | [facility] | | | [facility] | | | - LABORATORY | + + + + + + + + | Performing | Address | City/State/Zipcode | Phone Number | | Organization | | | | + + + + + | [facility] | [address] | [place] | [phone] | | [facility] | | [address] | | | - LABORATORY | | | | + + + + + | [facility] | [address] | [place] | | | [facility] | | [address], [facility] | | | - LABORATORY | [...] | | [facility] | | | [facility] | | | - LABORATORY | + + + + + + + + | Performing | Address | City/State/Zipcode | Phone Number | | Organization | | | | + + + + + | [facility] | [address] | [place] | [phone] | | [facility] | | [address] | | | - LABORATORY | | | | + + + + + | [facility] | [address] | [place] | | | [facility] | | [address] | | | - LABORATORY | | | | + + + + + documented in this encounter Visit Diagnoses Not on filedocumented in this encounter"
--- OUTSIDE RECORDS SUMMARY | ~2020-03-04 | XMS | Encounter Summary ---
Demographics + + + | Address | [address] | | | [place] [address] | + + + | Home Phone | | + + + | Preferred Language | Unknown | + + + | Marital Status | | + + + | Buddhism Affiliation | 1041 | + + + | Race | Unknown | + + + | Ethnic Group | Unknown | + + + Author + + + | Author | [facility] | | | and [place] | + + + | Organization | [facility] [...] Team Providers + +------+ + | Care Lining Presser Name | Role | Phone | + [...] | Documentati | S[facility] DICK | Kuo, Lxei W, | Dialysis | | 2014 | on | NEPHROLOGY [address] | MD [address] | (Asymptomatic) | | | | [address] | [place] [address] [place] | | | | | [place], [place] | [place] [address] | | | | | [address] | [phone] | | | | | [phone] | | | +--------+ + + + [...] Note Date of visit: 04/24/2014 Dialysis Clinic: [facility] Mode of dialysis: Hemodialysis Dialysis prescription: [...] 07/28/13. Anemia in ESRD (end-stage renal disease) ([facility]) 12/24/2013 Hypertension 09/22/2013 Preventative health [...] by mouth Daily. 30 tablet 5 B Ihvpslr-V-Kizgp Acid (OLEG-TEQUILA RX) 1 MG TABS Take [...] Transplantation: Pt is interested in referral to [facility] for kidney transplantation. -will send a [...]
--- OUTSIDE RECORDS SUMMARY | ~2020-03-04 | XMS | Encounter Summary ---
Demographics + + + | Address | [address] | | | [place] [address] | + + + | Home Phone | | + + + | Preferred Language | Unknown | + + + | Marital Status | | + + + | Druze Affiliation | 1041 | + + + | Race | Unknown | + + + | Ethnic Group | Unknown | + + + Author + + + | Author | [facility] | | | and [place] | + + + | Organization | [facility] | | [...] Team Providers + +------+ + | Care Patient Care Technician Name | Role | Phone | + +------+ + PCP | Unavailable | + +------+ + Encounter Details +--------+ + + + + | Date | Type | Department | Care Team | Description | +--------+ + + + + | 08/14/ | Abstract | [facility] [place] | Uche Orozco | | | 2017 | | NEPHROLOGY [address] | M, DO [address] | | | | | [address] | [place], [address] | | | | | [place] | [place] | | | | | [address] | [address] | | | | | [phone] | | | +--------+ + + + [...] this encounter Progress Notes Dedra Camara - 08/14/2017 4:09 PM PSTOutside record: Fistulogram, arteriovenous with possible intervention from Dontae Cornejo MD, dos 08/14/17. Sent to scan. documented in this encounter Plan of Treatment Not on filedocumented as of this encounter Visit Diagnoses Not on filedocumented in this encounter"
--- OUTSIDE RECORDS SUMMARY | ~2020-03-04 | XMS | Encounter Summary ---
Demographics + + + | Address | [address] | | | [place] [address] | + + + | Home Phone [...] | Author | [facility] | | | and [place] | + + + | Organization | [facility] | | | and [place] | + + + | Address | Unknown | + + + | Phone | Unavailable | + + + Support + + +---------+ + | Name | Relationship | Address | Phone | + + +---------+ + | Liot Case | ECON | Unknown | | + + +---------+ + Care Team Providers + +------+ + | Care Superior Court Judge Name | Role | Phone | + [...] | NEPHROLOGY [address] | [address] | | | | | [address] | [address] [place] | | | | | [place] | [place] [address] | | | | | [address] | [phone] | | | | | [phone] | | | +--------+ + + + [...] provider response to an elevated lab to [facility] on 11/05/14. documented in this encounter Plan of Treatment Not on filedocumented as of this encounter Visit Diagnoses Not on filedocumented in this encounter"
--- OUTSIDE RECORDS SUMMARY | ~2020-03-04 | XMS | Encounter Summary ---
Demographics + + + | Address | [address] | | | [place] [address] | + + + | Home Phone [...] Organization | [facility] | | | and [place] [...] Team Providers + +------+ + | Care Vessel Crew Member Name | Role | Phone | + [...] Description | +--------+---------+ + + + | 04/18/ | Office | [facility] [place] | [place], | Chronic kidney | | 2012 | Visit | NEPHROLOGY [address] | [place] [address] | disease (CKD), stage | | | | [address] | [address], [place] | V (HCC) (Primary | | | | [place], [place] | [address] [place], [place] | Dx); Type II or | | | | [address] | [address] | unspecified type | | | | [phone] | | diabetes mellitus | | | | | | with renal | | | | | | manifestations, | | | | | | uncontrolled ([facility]); | | | | | | Unspecified | | | | | | hypertensive kidney | | | | | | disease with chronic | | | | | | kidney disease | | | | | | stage I through | | | | | | stage IV, or | | | | | | unspecified; | | | | | | Secondary | | | | | | hyperparathyroidism | | | | | | (of renal origin) | | | | | | (HCC); Nephrotic | | | | | | syndrome; Hepatitis | | | | | | C | +--------+---------+ + + + Social [...] + + + | Blood Pressure | 174/76 | 01/23/2013 5:07 PM | | | | | PDT | | + + + + + | Pulse | 80 | 01/23/2013 5:07 PM | | | | | PDT | | + + + + + | Temperature | - | - | | + + + + + | Respiratory Rate | - | - | | + + + + + | Oxygen Saturation | - | - | | + + + + + | Inhaled Oxygen | - | - | | | Concentration | | | | + + + + + | Weight | 131.9 kg (290 lb | 01/23/2013 5:07 PM | | | | 11.2 oz) | PDT | | + + + + + | Height | 184.8 cm (6' 0.75") | 01/23/2013 5:07 PM | | | | | PDT | | + + + + + | Body Mass Index | 38.62 | 01/23/2013 5:07 PM | | | | | PDT | | + + + + + documented in this encounter Patient Instructions Patient Instructions Sarai Pabon ARNP - 01/23/2013 5:53 PM PDTI will set up a vein mapping and an appt with Dr. Angelo to discuss a fistula. Please avoid high potassium foods. Take sodium bicarb twice daily. Take the water pill ( furosemide) daily. If you are not having increased urination when you take it, please notify our office. Labs in one month. We will call you with your follow up appt. documented in this encounter Progress Notes Sarai Pabon ARNP - 01/23/2013 5:20 PM PDTFormatting of this note might be diff erent from the original. Nephrology Follow Up Visit Date: 01/23/2013 PCP: Frances Obrien MD HPI: Celso Pena Case is a 52 y.o. male following up for diabetic nephropathy, CKD stage 4-5. Daniel kowalski also has hypertension, diabetes mellitus type 2 requiring insulin that has not been wel l controlled, chronic diabetic foot ulcer, hyperlipidemia, and hepatitis C. He also has stephanie gn prostatic hypertrophy chronic UTI's, now on prophylactic antibiotics. He was started on f cory in the past few months but he stopped it due to diarrhea. He reports first hearing abo ut his kidney problems approximately 12 years ago when he was diagnosed with diabetes. Celso ' kidney disease appears to have steadily progressed over the past 3 years. Serum creatinine 1.63 10/13/09 eGFR 45 ml/min, 1.95 03/23/10, 2.32 01/12/11, 3.32 10/16/11, 4.81 10/04/12 a nd now 4.99, eGFR 12 ml/min. He also has nephrotic range proteinuria, hyperkalemia and metab olic acidosis. Celso was asked to follow up in one month but has been rescheduling his appointments joselyn us times in the past few months. Finally, his primary provider convinced him to return. He d id labs yesterday, so some of the results are not available yet. Celso reports that he has n ot been taking furosemide because he does not have a urinary response to it. He has only bee n taking the sodium bicarb once daily and has not been on a low potassium diet. He reports f eeling fatigued but no change in his appetite. No shortness of breath. He reports his blood pressure at home yesterday was 149 systolic. Patient Active Problem List Diagnoses Date Noted [...] 09/15/2012 Hypertension 2002 Chronic kidney disease 2000 stage IV, chronic renal failure, worsening with [...] Outpatient Prescriptions Marked as Taking for the 01/23/13 encounter (Office Visit) with TERRY Varela Medication Sig Dispense Refill sodium bicarbonate 650 mg tablet Take 1 tablet by mouth 2 times daily *patient taking o nly once daily. 60 tablet 5 insulin glargine (LANTUS) 100 units/mL injection Inject [...] by mouth every morning (before breakfast ). diltiazem (DILACOR XR) 180 mg 24 hr capsule Take 180 mg by mouth Daily. atorvaSTATin (LIPITOR) 10 mg tablet Take 10 mg by mouth Daily. aspirin 81 mg EC tablet Take 81 mg by mouth Daily. Allergies Allergen Reactions Amlodipine Besylate Unknown Metformin Diarrhea ROS: Low energy. Pain/burning with urination x 1 month. He is on a prophylactic antibiotic for recurrent UTI's, prescribed by urology. Denies anorexia, chest pain, dyspnea, orthopnea, edema, nausea, vomiting, dysuria, hematuria, urinary frequency. Physical Exam: Filed Vitals: 01/23/13 1707 BP: 174/76 Pulse: 80 Height: 1.848 m (6' 0.75") Weight: 131.861 kg (290 lb 11.2 oz) Temp: 98.1 Constitutional: Pleasant, overweight male in no acute [...] are normal. No distension or tenderness. Musculoskeletal: 2+ edema below knees. Neurological: Alert. Skin: Skin is warm. No rash. Psychiatric: Normal mood and affect. Labs reviewed with patient: Lab Results Component Value Date CREA 5.0 01/22/2013 BUN 49 01/22/2013 NA 140 01/22/2013 K 5.6 01/22/2013 CL 114 01/22/2013 CO2 17 01/22/2013 Lab Results Component Value Date PTH 148 01/22/2013 CALCIUM 8.4 01/22/2013 PHOS 4.2 01/22/2013 ALBUMIN Date Value Range Status 01/22/2013 3.2* 3.5 - 5.0 g/dL Final Estimated GFR Date Value Range Status 01/22/2013 12.0 Final UA with micro: WBC 2/hpf, RBC 0/hpf HBsag: negative, Anti-HBs negative, Anti-HCV positive C3 122.7 (87-200), C4 46.1 (19-52) ANCA pending SPEP/UPEP pending Recent Results (from the past 24 hour(s)) POCT URINALYSIS Component Value Range POC COLOR UA Yellow POC CLARITY UA Clear POC GLUCOSE UA 500 mg/dL POC BILIRUBIN UA Negative POC KETONES UA Negative Negative POC SPECIFIC GRAVITY UA 1.030 POC BLOOD UA Trace Intact POC PH UA 6.0 POC PROTEIN UA 300 mg/dL POC UROBILINOGEN UA 0.2 mg/dL POC NITRITE UA Negative POC LEUKOCYTE ESTERASE UA Negative RED SUB UA Negative ICTOTEST Negative REMARK Assessment/Plan: 1. CHRONIC KIDNEY DISEASE STAGE IV-V (585.5) CKD is most likely due to diabetic nephropathy, though without a biopsy, concurrent glomeru lonephritis cannot be entirely ruled out. Given the late stage kidney disease, the risks of renal biopsy outweigh the benefits, as it will not change the course of his treatment. Serum creatinine has steadily increased for the past few years, now nearing end stage according t o eGFR. Hyperkalemia and metabolic acidosis, no uremic symptoms. Nephrotic range proteinuria . Serologic work up pending. No signs of obstruction or other structural [...] confirmed wi th a contrast CT scan. Patient was educated at length about CKD and ESRD. I explained that he will be needing dial ysis, likely within the next 6 months. I explained the pros and cons of types of dialysis, p eritoneal dialysis versus hemodialysis. I also educated him about transplant options. He is wanting to prepare for hemodialysis and agreed to have vein mapping and a consult with Dr. Carmen marrufo to discuss fistula placement. Educated Celso about a low potassium diet and the risks of hyperkalemia. He was given hand outs showing specific kbb-[id number]-bfxa potassium foods. Diuresis will also help his potassium le shilpa fall. Re-educated about correct dose of sodium bicarb. Goal bicarb >20. 2. TYPE II DIABETES MELLITUS WITH RENAL MANIFESTATIONS, UNCONTROLLED (250.42) Diabetes has not been well controlled. I explained that this will need to be well controlle d before he is listed for a transplant. He admits to feeling quite hopeless about all of his chronic illnesses, which is why he has not been taking care of himself. He seemed encourage d by the information about kidney transplant. He agreed to have regular follow up with Dr. Kristi tovar for management. Advise adjusting Januvia down to 25 mg daily due to creatinine clearance. 3. HYPERTENSIVE KIDNEY DISEASE WITH CKD STAGE I-IV (403.90) Blood pressure above goal currently. Patient does appear to be retaining fluid, likely in p art due to nephrotic syndrome. I explained that his furosemide dose needs to be increased un til he notices a urinary response. Will start with 40 mg daily and he agreed to call if no r esponse, at that point will increase to 80 mg daily. Diuresing will help with HTN and hyperk alemia also. 4. NEPHROTIC SYNDROME (581.9) Patient has all the features of nephrotic syndrome except for low albumin. Discussed with p atient his risks of retaining fluid. Will treat with diuretic and monitor. 5. SECONDARY HYPERPARATHYROIDISM (588.81) iPTH is just above goal for CKD stage IV, but within goal for ESRD. Calcium and PO4 are at goal. Vitamin D was low in the past so will replace that and monitor iPTH periodically. If i t starts to climb will start calcitriol. 6. BPH (600.90) No significant PVR and no hydronephrosis on ultrasound, though patient has had recurrent UT Is. His urine yesterday shows no sign of UTI. Patient is followed by urology. 7. RENAL MASS (593.9) Possibly a proteinaceous cyst. Will plan on a contrast CT scan when he is on dialysis. 8. HEPATITIS C (070.70) Patient may need to be evaluated by a structural drafter in the future. His most recent liver enz ymes (10/04/12) were within normal limits. Follow up in 1 month, sooner if needed. Labs prior including CMP, PO4, CBC, iron profile, 2 4 hour urine for creatinine clearance and protein. Patient verbalized agreement and understanding of above plan. 60 minutes spent face to face with patient with greater than 50% of time in counseling, edu cation and coordination of care regarding CKD, hyperkalemia, dialysis, DM, HTN, medication e ducation, and secondary hyperparathyroidism. CC: Frances Obrien MD documented i n this encounter Plan of Treatment Not on filedocumented as of this encounter Procedures + +--------+ + + + | Procedure Name | Priori | Date/Time | Associated Diagnosis | Comments | | | ty | | | | + +--------+ + + + | POCT URINALYSIS, | Routin | 01/23/2013 | Chronic kidney | Results for this | | AUTO WITH CONF | e | 4:58 PM | disease (CKD), stage | procedure are in the | | | | PDT | V ([facility]) | results section. | + +--------+ + + + documented in this encounter Results POCT Urinalysis Dipstick Automated (01/23/2013 4:58 PM PDT) + + + + + [...] + + + + | Glucose, | 500 mg/dL | | | | | UA, [...] + + + + | Specific | 1.030 | | | | | [place], | | | | | | UA, POC | | | | | + + + + + + | Blood, UA, | Trace Intact | | | | | POC | [...] | Chronic kidney disease (CKD), stage V ([facility]) - Primary Chronic kidney disease, Stage V | + + | Type II or unspecified type diabetes mellitus with renal manifestations, | | uncontrolled(250.42) ([facility]) Type II or unspecified type diabetes mellitus with renal | | manifestations, uncontrolled | + + | Unspecified hypertensive kidney disease with chronic kidney disease stage I through | | stage IV, or unspecified(403.90) Unspecified hypertensive kidney disease with chronic | | kidney disease stage I through stage IV, or unspecified | + + | Secondary hyperparathyroidism (of renal origin) | + + | Nephrotic syndrome Nephrotic syndrome with unspecified pathological lesion in kidney | + + | Hepatitis C Unspecified viral hepatitis C without hepatic coma | + + documented in this encounter
--- OUTSIDE RECORDS SUMMARY | ~2020-03-04 | XMS | Encounter Summary ---
Demographics + + + | Address | [address] | | | [place] [address] | + + + | Home Phone | | + + + | Preferred Language | Unknown | + + + | Marital Status | | + + + | Jew Affiliation | 1041 | + + + | Race | Unknown | + + + | Ethnic Group | Unknown | + + + Author + + + | Author | [facility] | | | and [place] | + + + | Organization | [facility] | | | and [...] Team Providers + +------+ + | Care Sequins Slinger Name | Role | Phone | + [...] | | [address]IE [place] | [place] [address] | | | | | [place] [address] | | | | | | [phone] | | | +--------+ + + + [...]
--- OUTSIDE RECORDS SUMMARY | ~2020-03-04 | XMS | Encounter Summary ---
Demographics + + + | Address | [address] | | | [place] [address] | + + + | Home Phone [...] | Organization | [facility] | | | and [...] Providers + +------+ + | Care Family Dentist Name | Role | Phone | + [...] | | | | | Procedures | [id number] | [place] | | | | | [place] OFFICE | Phone: | [phone] Phone: | | | | | OUTPATIENT | [phone] | [phone] | | | | | VISIT 25 | Fax: | Fax: | | | | | MINUTES | [phone] | [phone] | +--------+--------+ + + + + Encounter Details +--------+ + + + + | Date | Type | Department | Care Team | Description | +--------+ + + + + | 09/28/ | Off-Site | [facility] [place] | Uche Orozco | End stage renal | | 2013 | Visit | NEPHROLOGY [address] | M, DO [address] | disease (HCC) | | | | [address] | [place], [place] | (Primary Dx); Type | | | | [place], [place] | [place] | II or unspecified | | | | [address] | [address] | type diabetes | | | | [phone] | | mellitus with renal | | [...] + + + | Blood Pressure | 175/98 | 09/28/2014 2:25 PM | | | | | PST | | + + + + + | Pulse | - | - | | + + + + + | Temperature | 35.7 C (96.2 F) | 09/28/2014 2:25 PM | | | | | PST [...] encounter Progress Notes Uche Orozco DO - 10/31/2014 2:26 PM PST Subjective: [facility] DIALYSIS NOTE Patient ID: Celso Caro is a 54 y.o. male. HPI Comments: Monthly dialysis visit for this 54 YO male with ESRD secondar y to diabetic nephropathy, who is seen on outpatient HD . He also has T2DM, requiring ins ulin, anemia secondary to CKD, hyperlipidemia, Hepatitis C, morbid obesity and a question of a right renal mass on prior US. He is seen on outpatient dialysis on the MWF shift at the [facility] [place]. He is generally in good spirits. Outpatient Prescriptions Marked as Taking for the 09/28/14 encounter (Off-Site Visit) with Uche Orozco DO Medication Sig Dispense Refill aspirin 81 mg EC tablet Take 81 mg by mouth Daily. atorvaSTATin (LIPITOR) 20 mg tablet Take 1 tablet by mouth Daily. 30 tablet 5 B Oiquscw-M-Rwzag Acid (OLEG-TEQUILA RX) 1 MG TABS Take 1 mg by mouth Daily. 30 each 11 Cholecalciferol (VITAMIN D3) 5000 UNITS CAPS Take 5,000 Units by mouth Daily. cinacalcet (SENSIPAR) 30 mg tablet Take 1 tablet by mouth Daily. 90 tablet 4 doxercalciferol (HECTOROL) 4 MCG/2ML injection Inject 6.5 mcg into the vein Three times a [...] Besylate Unknown Metformin Diarrhea Objective: Blood pressure 175/98, temperature 35.7 C (96.2 F). EDW 121.5 kg Physical Exam Heart: Regular rate and rhythm with no S3, S4, murmur or rub. Lungs: CTA bilaterally. No rales or wheezes. Abdomen: Soft, flat, nontender, normoactive bowel sounds. Extremities: No clubbing, cyanosis, or edema. LAB: BUN 39, Cr 13.6, K+ 4.5, HCO3 24, Ca++ 7.8, PO4 5.5, PTH 200, Alb 3.8, Hb 10.3, eKT/V = 1.41. Assessment: 1. ESRD--he appears well dialyzed on 4 hours, QB 475, daily 600, RR 21, 2K +. 2. Hypertension--generally, his BP appears within target range by the end of his treatment s from review of his treatment data in [place]. 3. Anemia-- will need to recheck his iron profile next quarter. Will continue his Cipro a t the current dose. 4. SHPTH--the PTH appears to be steadily improving. I encouraged Celso that he is doing a better job of controlling his serum phosphorus. 5. Nutrition--excellent. 6. Type 2 DM--need to repeat his HbA1c next quarter. 7. Hepatitis C--stable. 8. Hyperlipidemia--Will recheck the lipid profile next quarter. 9. Transplantation--he most recently is somewhat ambivalent about pursuing this. I encour aged Celso to explore this option further, as he has a large family, with potential donors. 10. Right renal mass, MRI, 10/2012--suspicious for complex, "proteinaceous cysts, " on MRI at that time. Plan: 1. Will continue his EPO. 2. I discussed with Celso that it would be helpful if he brought in his home glucose log. 3. Will recheck his PTH, HbA1c, and lipid profile next quarter. Will recheck him in 2 royal mario CC: [facility] documented in thi [...]
--- OUTSIDE RECORDS SUMMARY | ~2020-03-04 | XMS | Encounter Summary ---
Demographics + + + | Address | [address] | | | [place] [address] | + + + | Home Phone | | + + + | Preferred Language | Unknown | + + + | Marital Status | | + + + | Spiritism Affiliation | 1041 | + + + | Race | Unknown | + + + | Ethnic Group | Unknown | + + + Author + + + | Author | [facility] | | | and Scarana | + + + | Organization | [facility] | | | and [...] Providers + +------+ + | Care Collar Sewer Name | Role | Phone | + [...] | | | | | [address] | [place] | | | | | [place] | [address] | | | | | [address] | [phone] | | | | | [phone] | | | +--------+---------+ + + + [...] + subjective fever/chills. 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 Best possible AUDIOVISUAL EQUIPMENT OPERATOR medication list after pharmacy review: PT [...] performed and electronically signed by Lilian Kinney, District Manager Postal Service 01/11/2019 13:17 Reviewed by Vale Rojas PharmD 01/11/2019 14:39 each, Lexi Banks MD - 01/11/2019 10:15 AM PDT [facility] NEPHROLOGY progress note Patient: Celso Caro : [...] Lexi Kuo MD Electronically signed: 01/11/2019 10:16 [facility] NEPHROLOGY Cristina Sotelo DPM - 01/11/2019 9:11 AM PDT Foot & Ankle Surgery Progress Note Cristina Sahni DPM Celso Sutton Case Age/Gender 58 y.o. male Location [facility] MEDICAL Attending Estiven Ramirez MD [...] Value Units Date/Time Culture, Wound, Smear, w/Anaerobe [[id number]] Collected: 01/10/191529 Order Status: Sent Lab Status: In process Updated: 01/10/191610 Specimen: Tissue from Toe, Fourth, Left Narrative: The following orders were created for panel order Culture, Wound, Smear, w/Anaerobe. Procedure Abnormality Status --------- ------ Culture, Wound, Smear[[id number]] Normal Preliminary result Culture, Anaerobic[[id number]] In process Please view results for these tests on the individual orders. Culture, Wound, Smear [[id number]] (Normal) Collected: 01/10/191529 Order Status: Completed Lab Status: Preliminary result Updated: 01/11/19 0846 Specimen: Tissue from Toe, Fourth, Left Culture No growth to date Gram Stain Result 2+ White Blood Cells No squamous epithelial cells seen No organisms seen Culture, Anaerobic [[id number]] Collected: 01/10/191529 Order Status: Resulted Lab Status: In process Updated: 01/10/191610 Specimen: Tissue from Toe, Fourth, Left Assessment: Celso Sutton Case is a 58 y.o. male S/p toe amputation for osteomyelitis. Currently with imp roved pain and swelling after procedure. Plan: Dressing may be left intact until post op appointment on at [facility]. Okay to place weight on left [...] Case : 1960: Age: 58 y.o. MedRec: [id number] PCP: Cristina Quinones PA-C Admission date: 01/08/2019 [...] too. May get his wound care at [facility] area too after Disc harged. 2. [...] + subjective fever/chills. Pt initially went to [facility] and was then sent t [...] urinary obstruction; Diabetes mellitus, type 2 ([facility]) (); Diabetic foot ulcer ([facility]) (01/01/12); ESRD (end stage renal disease) on dialysis ([facility]) ( 1999); Heart murmur; Hepatitis C (2006); Hyperlipidemia; Hypertension (2001); Obesity; Parox ysmal atrial flutter ([facility]); Recurrent UTI; and Vitamin D deficiency. . [...] Procedure Component Value Units Date/Time Clostridium difficile [[id number]] (Normal) Collected: 01/10/19 0152 Order Status: Completed Lab Status: Final result Updated: 01/10/19 0504 Specimen: Stool from Stool Clostridium difficile DNA Negative Culture, MRSA [[id number]] (Normal) Collected: 01/09/19 0600 Order Status: Completed Lab Status: Final result Updated: 01/10/19 0821 Specimen: Tissue from Leg, Left Culture Negative for MRSA by chromogenic agar method Culture, Wound, Smear, w/Anaerobe [[id number]] Collected: 01/09/19599 Order Status: Sent Lab Status: In process Updated: 01/09/19637 Specimen: Tissue from Toe, Fourth, Left Narrative: The following orders were created for panel order Culture, Wound, Smear, w/Anaerobe. Procedure Abnormality Status --------- ------ Culture, Wound, Smear[[id number]] Preliminary result Culture, Anaerobic[[id number]] In process Please view results for these tests on the individual orders. Culture, Wound, Smear [[id number]] Collected: 01/09/19599 Order Status: Completed Lab Status: Preliminary result Updated: 01/10/19 110 Specimen: Tissue from Leg, Left Culture 2+ Gram Positive Cocci Comment: Isolating for additional information. Gram Stain Result 1+ White Blood Cells 2+ Epithelial cells No organisms seen Culture, Anaerobic [[id number]] Collected: 01/09/19599 Order Status: Sent Lab Status: In process Updated: 01/09/19637 Specimen: Tissue from Toe, Fourth, Left Culture, Blood [[id number]] (Normal) Collected: 01/08/19 1644 Order Status: Completed Lab Status: Preliminary result Updated: 01/09/19450 Specimen: Blood from Peripheral Blood Culture No growth: Monitored continually by instrument for 5 days Culture, Blood [[id number]] (Normal) Collected: 01/08/19 1636 Order Status: Completed [...] (h/o aflutter) Prior to admission dialysis schedule: [facility] Vancomycin Dosing in HD patients: If [...] Caro : 1960: Age: 58 y.o. MedRec: [id number] PCP: Cristina Quinones PA-C Admission date: 01/08/2019 [...] + subjective fever/chills. Pt initially went to [facility] and was then sent t [...] left foot : I jefferson ve contracted Swing Grinder and plan to have Amputation. On Vanc [...] Procedure Component Value Units Date/Time Clostridium difficile [[id number]] Collected: 01/10/19 0152 Order Status: Sent Lab Status: In process Updated: 01/10/19 020 Specimen: Stool from Stool Culture, MRSA [[id number]] Collected: 01/09/19599 Order Status: Sent Lab Status: In process Updated: 01/09/19637 Specimen: Tissue from Leg, Left Culture, Wound, Smear, w/Anaerobe [[id number]] Collected: 01/09/19599 Order Status: Sent Lab Status: In process Updated: 01/09/19637 Specimen: Tissue from Toe, Fourth, Left Narrative: The following orders were created for panel order Culture, Wound, Smear, w/Anaerobe. Procedure Abnormality Status --------- ------ Culture, Wound, Smear[[id number]] In process Culture, Anaerobic[[id number]] In process Please view results for these tests on the individual orders. Culture, Wound, Smear [[id number]] Collected: 01/09/19599 Order Status: Sent Lab Status: In process Updated: 01/09/19647 Specimen: Tissue from Leg, Left Culture, Anaerobic [[id number]] Collected: 01/09/19599 Order Status: Sent Lab Status: In process Updated: 01/09/19637 Specimen: Tissue from Toe, Fourth, Left Culture, Blood [[id number]] (Normal) Collected: 01/08/19 1644 Order Status: Completed Lab Status: Preliminary result Updated: 01/09/19450 Specimen: Blood from Peripheral Blood Culture No growth: Monitored continually by instrument for 5 days Culture, Blood [[id number]] (Normal) Collected: 01/08/19 1636 Order Status: Completed [...] urinary obstruction; Diabetes mellitus, type 2 ([facility]) (); Diabetic foot ulcer ([facility]) (01/01/12); ESRD (end stage renal disease) on dialysis ([facility]) ( 1999); Heart murmur; Hepatitis C (2006); Hyperlipidemia; Hypertension (2001); Obesity; Parox ysmal atrial flutter ([facility]); Recurrent UTI; and Vitamin D deficiency. . [...] Procedure Component Value Units Date/Time Culture, Blood [[id number]] Collected: 01/08/19 1644 Order Status: Sent Lab Status: In process Updated: 01/08/19 1645 Specimen: Blood from Peripheral Blood Culture, Blood [[id number]] Collected: 01/08/19 1636 Order Status: Sent Lab [...] | | | | | foot ([facility]) Diabetic | | | | | | ulcer of left | | | | | | midfoot associated | | | | | | with type 2 diabetes | | | | | | mellitus, with | | | | | | other ulcer severity | | | | | | ([facility]) | | + + +--------+ [...] M?MRN: | | | | | | [id number] | | | [id number] | | | riteri | | | [...] | | | St. | | | [place] | | | y | | | [...] | | | St. | | | [place] | | | y | | | [...] | | | St. | | | [place] | | | y H. | | [...] | | | ent/27 | | | 91w540 | | | -ed9e- | | | [...] St | [place] | [phone] | | [facility] | | [address] | | | - LABORATORY | | [...] + | [facility] | [address] | [place] | [phone] | | [facility] | | [address] | | | - LABORATORY | | [...] St | [place] | [phone] | | [facility] | | [address] | | | - LABORATORY | | [...] St | [place] | [phone] | | [facility] | | [address] | | | - LABORATORY | | [...] + | [facility] | [address] | [place] | [phone] | | [facility] | | [address] | | | - LABORATORY | | [...] + | [facility] | [address] | [place], [place] | [phone] | | [facility] | | [address] | | | - LABORATORY | | [...] + | [facility] | [address] | [place] | [phone] | | [facility] | | [address] | | | - LABORATORY | | [...] St | [place] | [phone] | | [facility] | | [address] | | | - LABORATORY | | [...] mL/min/1.73m2 | [facility] | | | [place] | | | MEDICAL | | | [...] + | [facility] | [address] | [place] | [phone] | | [facility] | | [address] | | | - LABORATORY | | [...] | nRBC | | K/uL | [facility] | | | | | | [...] St | [place] | [phone] | | [facility] | | [address] | | | - LABORATORY | | [...] [address] | [place] | [phone] | | [facility] | | [address] | | | - LABORATORY | | | | + + + + + Surgical Pathology Exam (01/10/2019 12:00 AM PDT) + + | Specimen | + + | | + + + + + | Narrative | Performed At | + + + | SPECIMEN(S): A LEFT FOURTH TOE SPECIMEN(S): B LEFT FOURTH TOE | [facility] | | PROXIMAL MARGIN SPECIMEN SOURCE: [...] | negative for evidence of pathologic inflammation. JVR:[facility]:C2NR | | | MICROSCOPIC EXAMINATION: Histologic sections [...] firm bony cut surface. | | | Novelty Twister Tender sections are submitted in cassettes (A1-A2) and [...] component was performed by | | | [facility], [address] [place] [id number] (Medical | | | Director: Val Gomez MD; CLIA# [id number]). Professional | | | interpretation was performed by [facility] [place] | | | [facility], [address] [place] [address] | | | [id number] (Corporate Buyer: Sudhakar Weber M.D.). Diagnostician: | | | [...] [address] | [place] | [phone] | | [facility] | | [address] | | | - LABORATORY | | [...] + | [facility] | [address] | [place] | [phone] | | [facility] | | [address] | | | - LABORATORY | | [...] St | [place] | [phone] | | [facility] | | [address] | | | - LABORATORY | | [...] [address] | [place] | [phone] | | [facility] | | [address] | | | - LABORATORY | | [...] + | [facility] | [address] | [place] | [phone] | | [facility] | | [address] | | | - LABORATORY | | [...] ST. | [address] | [place], [place] | [phone] | | [facility] | | [address] | | | - LABORATORY | | [...] St | [place] | [phone] | | [facility] | | [address] | | | - LABORATORY | | [...] + | [facility] | [address] | [place] | [phone] | | [facility] | | [address] | | | - LABORATORY | | [...] St | [place] | [phone] | | [facility] | | [address] | | | - LABORATORY | | [...] + | [facility] | [address] | [place] | [phone] | | [facility] | | [address] | | | - LABORATORY | | [...] mL/min/1.73m2 | [facility] | | | [place] | RATE,ESTIMATED | | MEDICAL | | | | mL/min/1.88y6Usku than | | CENTER - | | [...] [address] | [place] | [phone] | | [facility] | | [address] | | | - LABORATORY | | [...] St | [place] | [phone] | | [facility] | | [address] | | | - LABORATORY | | [...] | | POC | | | [facility] | | | | | | MEDICAL [...] St | [place] | [phone] | | [facility] | | [address] | | | - LABORATORY | | [...] St | [place] | [phone] | | [facility] | | [address] | | | - LABORATORY | | [...] St | [place] | [phone] | | [facility] | | [address] | | | - LABORATORY | | [...] + | [facility] | [address] | [place] | [phone] | | [facility] | | [address] | | | - LABORATORY | | [...] St | [place] | [phone] | | [facility] | | [address] | | | - LABORATORY | | [...] mL/min/1.73m2 | [facility] | | | [place] | | | MEDICAL | | | [...] St | [place] | [phone] | | [facility] | | [address] | | | - LABORATORY | | [...] St | [place] | [phone] | | [facility] | | [address] | | | - LABORATORY | | [...] [address] | [place] | [phone] | | [facility] | | [address] | | | - LABORATORY | | [...] | | | | | | use [place] 10/325 if ordered. If | | | [...]
--- OUTSIDE RECORDS SUMMARY | ~2020-03-04 | XMS | Encounter Summary ---
Demographics + + + | Address | [address] | | | [place] [address] | + + + | Home [...] Collaborative & [facility] [...] Providers + +------+ + | Care Business Employment Specialist Name | Role | Phone | [...] + + | Closed | Specialty | Cardiology | Diagnoses | Stroemel, | Maxlulu, | | | Services | | Typical | Uche Pena | Geo | | | Required | | atrial | DO [address] | MD Alexander | | | | | flutter | [place], [place] | [address] [place] | | | | | ([facility]) End | [address] [place] | [address] [place] | | | | | stage renal | [place] | | | | | disease | [address] | [address] Phone: | | | | | ([facility]) | Phone: | [phone] | | | | | Osteomyeliti | [phone] | Fax: | | | | | s of foot, | Fax: | [phone] | | | | | left, acute | [phone] | | | | | | ([facility]) | | | | | | | Procedures | | | | | | | NAVY MATERIAL INSPECTOR | | | +--------+ + + + + + Encounter Details +--------+---------+ + + + | Date | Type | Department | Care Team | Description | +--------+---------+ + + + | 09/11/ | E-Visit | [facility] | Uche Orozco | | | 2017 | | NEPHROLOGY [address] | M, DO [address] | | | | | [address] | [place], [place] [address] | | | | | [place], [place] | [place] | | | | | [address] | [address] | | | | | [phone] | | | +--------+---------+ + + + [...] + +--------+ + + | * [facility] [place] | Outpatient | Routin | Typical atrial | Ordered: 09/11/2018 | | Cardiology - AMB | Referral | e | flutter (HCC) End | | | Referral | | | stage renal disease | | | | | | (HCC) Osteomyelitis | | | | | | of foot, left, | | | | | | acute (HCC) | | + + +--------+ + + documented as of this encounter Visit Diagnoses + + | Diagnosis | + + | Typical atrial flutter (HCC) - Primary Atrial flutter | + + | End stage renal disease (HCC) End stage renal disease | + + | Osteomyelitis of foot, left, acute (HCC) Acute osteomyelitis, ankle and foot | + + documented in this encounter"
--- OUTSIDE RECORDS SUMMARY | ~2020-03-04 | XMS | Encounter Summary ---
Demographics + + + | Address | [address] | | | [place] [address] | + + + | Home Phone | | + + + | Preferred Language | Unknown | + + + | Marital Status | | + + + | Baptist Affiliation | 1041 | + + + | Race | Unknown | + + + | Ethnic Group | Unknown | + + + Author + + + | Author | [facility] | | | and Scarana | + + + | Organization | [facility] | | | and [...] Providers + +------+ + | Care Corporate Event Planner Name | Role | Phone | + [...] [address] | [address], [place] | V (HCC) (Primary | | | | [place], [place] | [address] [place] | Dx); Type II or | | | | [address] | [address] | unspecified type | | | | [phone] | | diabetes mellitus | | | | | | with renal | | | | | | manifestations, | | | | | | uncontrolled ([facility]); | | | | | [...] He was given hand outs showing specific iqo-muf-ergf potassium foods. Diuresis will also help his [...] need to be evaluated by a manager imaging in the future. His most recent liver [...] | | | | PDT | V ([facility]) | results section. | + [...] | 1.030 | | | | | Lewis, | | | | | | UA, [...] | Chronic kidney disease (CKD), stage V ([facility]) - Primary Chronic kidney disease, Stage V | + + | Type II or unspecified type diabetes mellitus with renal manifestations, | | uncontrolled(250.42) ([facility]) Type II or unspecified type [...]
--- OUTSIDE RECORDS SUMMARY | ~2020-03-04 | XMS | Encounter Summary ---
Demographics + + + | Address | [address] | | | [place] [address] | + + + | Home Phone [...] Organization | [facility] | | [...] Team Providers + +------+ + | Care Hr Intern Name | Role | Phone | + [...] NEPHROLOGY [address] | M, DO [address] | | | | | [address] | [place], [place] [address] | | | | | [place] | [place] | | | | | [address] | [address] | | | | | [phone] | | | +--------+ + + + [...] record: New patient starter program form from [facility], dos: 09/16/17. [facility].Electronically signed by Dedra Camara at 8:54 AM PSTdocumented in this encounter Plan of Treatment Not on filedocumented as of this encounter Visit Diagnoses Not on filedocumented in this encounter"
--- OUTSIDE RECORDS SUMMARY | ~2020-03-04 | XMS | Encounter Summary ---
Demographics + + + | Address | [address] | | | [place] [address] | + + + | Home Phone [...] | Organization | [facility] | | | and [place] [...] Team Providers + +------+ + | Care Commodities Requirements Analyst Name | Role | Phone | [...] [address] | [address], [place] | V ([facility]) (Primary | | | | [place], [place] | [address] [place] | Dx); Unspecified | | | | [address] | [address] | hypertensive kidney | | | | [phone] | | disease with chronic | | [...] for nephrology appt on 05/19/13 faxed to [facility]. Patient's provider requested patient do his labs [...]
--- OUTSIDE RECORDS SUMMARY | ~2020-03-04 | XMS | Encounter Summary ---
Demographics + + + | Address | [address] | | | [place] [address] | + + + | Home Phone [...] | Organization | [facility]thy | | | and [...] Team Providers + +------+ + | Care Program Instructor Name | Role | Phone | [...] [address] | [address], [place] | | | | | [place] | [address] [place] | | | | | [address] | [address] | | | | | [phone] | | | +--------+ + + + [...]
--- OUTSIDE RECORDS SUMMARY | ~2020-03-04 | XMS | Encounter Summary ---
Demographics + + + | Address | [address] | | | [place] [address] | + + + | Home Phone [...] Organization | [facility]nam[facility]thy [...] Team Providers + +------+ + | Care Grade Foreman Name | Role | Phone | + [...] | | | | 21) End | [address] | [place] | | | | | stage renal | Phone: | [phone] Phone: | | | | | disease | [phone] | [phone] | | | | | (HCC) | Fax: | Fax: | | | | | Unspecified | [phone] | [phone] | | | | | essential | | | | | | | hypertension | | | | | | | Procedures | | | | | | | IN OFFICE | | | | | | [...] | [address] | [place], [place] [address] | (Primary Dx); Type | | | | [place] | [place] | II or unspecified | | | | [address] | [address] | type diabetes | | | | [phone] | | mellitus with renal | | [...] DO - 06/06/2014 5:42 PM PDT Subjective: [facility] Patient ID: CELSO CARO is a 54 y.o. male. HPI Comments: Monthly dialysis visit for this 54 YO male with ESRD secondar y to diabetic nephropathy, who is seen on outpatient HD at the [facility]. He also has T2DM, requiring insulin, [...] by mouth Daily. 30 tablet 5 B Fkkxbuh-G-Rgddf Acid (OLEG-TEQUILA RX) 1 MG TABS Take [...] week to minimi ze mortality, morbidity. CC: [facility] documented in thi s encounter Plan [...]
--- OUTSIDE RECORDS SUMMARY | ~2020-03-04 | XMS | Encounter Summary ---
Demographics + + + | Address | [address] | | | [place] [address] | + + + | Home Phone | | + + + | Preferred Language | Unknown | + + + | Marital Status | | + + + | Roman Catholic Affiliation | 1041 | + + + | Race | Unknown | + + + | Ethnic Group | Unknown | + + + Author + + + | Author | [facility] | | | and [place] | + + + | Organization | [facility] | | | and [place] | [...] Team Providers + +------+ + | Care Campus Rep Name | Role | Phone | [...] [address] | [address], [place] | | | | | [place] | [address] [place] | | | | | [address] | [address] | | | | | [phone] | | | +--------+ + + + [...]
--- OUTSIDE RECORDS SUMMARY | ~2020-03-04 | XMS | Encounter Summary ---
Demographics + + + | Address | [address] | | | [place] [address] | + + + | Home Phone [...] | Organization | [facility] | | | and [...] Providers + +------+ + | Care Commercial Fisherman Name | Role | Phone | + +------+ + PCP | Unavailable | + +------+ + Encounter Details +--------+ + + + + | Date | Type | Department | Care Team | Description | +--------+ + + + + | 03/13/ | Orders Only | [facility] [place] | Uche Orozco | Diabetic ulcer of | | 2016 | | NEPHROLOGY [address] | M, DO [address] | right foot | | | | [address] | [place], [place] [address] | associated with | | | | [place], [place] | [place] | diabetes mellitus | | | | [address] | [address] | due to underlying | | | | [phone] | | condition (HCC) | | | | | | (Primary Dx); Type 2 | | | | | | DM with CKD stage 5 | | | | | | and hypertension | | | | | | (HCC) [...] + | Diagnosis | + + | Diabetic ulcer of right foot associated with diabetes mellitus due to underlying | | condition (HCC) - Primary | + + | Type 2 DM with CKD stage 5 and hypertension (HCC) | + + documented in this encounter"
--- OUTSIDE RECORDS SUMMARY | ~2020-03-04 | XMS | Encounter Summary ---
Demographics + + + | Address | [address] | | | [place] [address] | + + + | Home Phone [...] Organization | [facility] | | [...] +------+ + | Care Training And Development Coordinator Name | Role | Phone | + +------+ + PCP | Unavailable | + +------+ + Encounter Details +--------+ + + + + | Date | Type | Department | Care Team | Description | +--------+ + + + + | 03/14/ | Orders Only | [facility] [place] | Uche Orozco | Type 2 DM with CKD | | 2016 | | NEPHROLOGY [address] | M, DO [address] | stage 5 and | | | | [address] | [place], [address] | hypertension (HCC) | | | | [place], [place] | [place] | | | | | [address] | [address] | | | | | [phone] | | | +--------+ + + + [...] | Diagnosis | + + | Type 2 DM with CKD stage 5 and hypertension (HCC) | + + documented in this encounter"
--- OUTSIDE RECORDS SUMMARY | ~2020-03-04 | XMS | Encounter Summary ---
Demographics + + + | Address | [address] | | | [place] [address] | + + + | Home Phone | | + + + | Preferred Language | Unknown | + + + | Marital Status | | + + + | Catholic Affiliation | 1041 | + + + | Race | Unknown | + + + | Ethnic Group | Unknown | + + + Author + + + | Author | Located Within [facility] | | | and Scarana | + + + | Organization | Located [facility] | [...] Team Providers + +------+ + | Care Instructional Services Librarian Name | Role | Phone | + +------+ + PCP | Unavailable | + +------+ + Reason for Visit + + + | Reason | Comments | + + + | Chronic Kidney | stage 5 | | Disease | | + + + Encounter Details +--------+---------+ + + + | Date | Type | Department | Care Team | Description | +--------+---------+ + + + | 05/19/ | Office | [facility] [place] | [place], | Chronic kidney | | 2013 | Visit | NEPHROLOGY [address] | [place] [address] | disease (CKD), stage | | | | [address] | [address], [place] | V ([facility]) (Primary | | | | [place], [place] | [address] [place], [place] | Dx); Type II or | | | | [address] | [address] | unspecified type | | | | [phone] | | diabetes mellitus | | | | | | with renal | | | | | | manifestations, | | | | | | uncontrolled ([facility]); | | | | | | Unspecified | | | | | | essential | | | | | | hypertension; | | | | | | Secondary | | | | | | hyperparathyroidism | | | | | | (of renal origin) | | | | | | ([facility]); Right renal | | | | | | mass | +--------+---------+ + + + Social [...] + + + | Blood Pressure | 138/68 | 05/19/2013 4:50 PM | | | | | PDT | | + + + + + | Pulse | 64 | 05/19/2013 4:50 PM | | | | | [...] + + + + | Weight | 130.7 kg (288 lb 3.2 | 05/19/2013 4:50 PM | | | | oz) | PDT | | + + + + + | Height | 185.4 cm (6' 1") | 05/19/2013 4:50 PM | | | | | PDT | | + + + + + | Body Mass Index | 38.02 | 05/19/2013 4:50 PM | | | | | PDT | | + + + + + documented in this encounter Patient Instructions Patient Instructions Sarai Pabon ARNP - 05/19/2013 5:[address] Dr[address] Angelo to discuss catheter placement. Request FMLA paperwork at work, if needed, to plan for time off to train for peritoneal luke lysis. Continue furosemide daily as discussed. 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 Take TWICE DAILY consist ently. documented in this encounter Progress Notes Sarai Pabon, STAVE LOG CUT OFF SAW OPERATOR - 05/19/2013 5:02 PM PDTFormatting of this note might be diff erent from the original. Nephrology Follow Up Visit Date: 05/19/2013 PCP: Frances Obrien MD HPI: Celso Pena Case is a 53 [...] and does not take his medications as prescribed . Last week when his labs were resulted, he was called and reminded to take sodium bicarb. Alicia pillai had not refilled it for "a while". Today he admits that he still has not refilled it. He t akes furosemide intermittently, he cannot explain why he does not take it regularly as presc ribed. At last visit in January he agreed to see a surgeon for fistula placement but reports t hat he missed an appt due to in the family and then did not reschedule it. Now he is m ore interested in doing peritoneal dialysis at home, instead of hemodialysis. Celso reports intermittent fatigue but otherwise denies complaints. 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 He reports robust appetite, without nausea, vomiting or taste disturbances. He feels that his ankle swelling is well controlled when he takes furosemide regularly. Patient Active Problem List Diagnosis Date Noted POA Secondary hyperparathyroidism (of renal origin) 01/23/2013 Unknown Chronic kidney disease (CKD), stage V 10/18/2012 Unknown Nephrotic syndrome 10/18/2012 Unknown Right renal mass 10/18/2012 Unknown BPH (benign prostatic hyperplasia) Unknown Recurrent UTI Unknown Heart murmur Unknown Chronic kidney disease Unknown Unspecified hypertensive kidney disease with chronic kidney disease stage I through sta ge IV, or unspecified Unknown Type II or unspecified type diabetes mellitus with renal manifestations, uncontrolled Unknown Vitamin d deficiency Unknown Obesity Unknown Dyslipidemia Unknown Hepatitis C Unknown Diabetic foot ulcer 01/01/2012 Unknown Past Medical History Diagnosis Date Dyslipidemia Cellulitis and abscess of leg 09/27/2009 except foot, recurring Obesity Vitamin d deficiency Diabetes mellitus, 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 atorvaSTATin (LIPITOR) 10 mg tablet Take 10 mg by mouth Daily. cholecalciferol (VITAMIN D-3) 2000 UNITS TABS Take 1 tablet by mouth Daily. diltiazem (DILACOR XR) 180 mg 24 hr capsule Take 180 mg by mouth Daily. furosemide (LASIX) 40 mg tablet Take 1 tablet by mouth Daily. 30 tablet 5 insulin glargine (LANTUS) 100 units/mL injection Inject 120 Units under the skin nightl y. lisinopril (PRINIVIL,ZESTRIL) 40 MG tablet Take 40 mg by mouth Daily. metoprolol (TOPROL-XL) 100 MG 24 hr tablet Take 100 mg by mouth Daily. omeprazole (PRILOSEC) 20 mg capsule Take 20 mg by mouth every morning (before breakfast ). sitaGLIPtin (JANUVIA) 100 mg tablet Take 100 mg by mouth Daily. sodium bicarbonate 650 mg tablet Take 1 tablet by mouth 2 times daily. 60 tablet 11 Allergies Allergen Reactions Amlodipine Besylate Unknown Metformin Diarrhea ROS: See HPI. Denies anorexia, chest pain, dyspnea, orthopnea, edema, nausea, vomiting, dys uria, hematuria, urinary frequency. Physical Exam: Filed Vitals: 05/19/13 1650 BP: 138/68 Pulse: 64 Height: 1.854 m (6' 1") Weight: 130.727 kg (288 lb 3.2 oz) Constitutional: Well nourished male in no acute [...] are normal. No distension or tenderness. Musculoskeletal: Trace ankle edema. Neurological: Alert. Skin: Skin is warm. No rash. Psychiatric: Normal mood and affect. Labs reviewed with patient: Lab Results Component Value Date CREA 5.89 05/08/2013 BUN 50 05/08/2013 NA 140 05/08/2013 K 5.0 05/08/2013 CL 115 05/08/2013 CO2 14 05/08/2013 Lab Results Component Value Date PTH 148 01/22/2013 CALCIUM 8.3 05/08/2013 PHOS 4.8 05/08/2013 ALBUMIN Date Value Range Status 05/08/2013 3.4* 3.5 - 5.0 g/dL Final eGFR, External Date Value Range Status 05/08/2013 10* 60 Final HBsag: negative, Anti-HBs negative, Anti-HCV positive C3 122.7 (87-200), C4 46.1 (19-52) ANCA myeloperoxidase 0.5, proteinase 3 is 0.8 SPEP Increased alpha-2 globulins consistent with acute phase protein response to inflammati on. Recent Results (from the past 24 hour(s)) POCT URINALYSIS Component Value Range POC COLOR UA Yellow POC CLARITY UA Clear POC GLUCOSE UA 250 mg/dL POC BILIRUBIN UA Negative POC KETONES UA Negative Negative POC SPECIFIC GRAVITY UA 1.020 POC BLOOD UA Trace Intact POC PH UA 6.0 POC PROTEIN UA >=300 mg/dL POC UROBILINOGEN UA 0.2 E.U./dL POC [...] He agreed to see Dr. Angelo to sahra s PD catheter placement. He understands that [...] may need to be evaluated by a service desk director in the future. His most recent liver [...] dialysis, medication education. CC: Frances Obrien MD [facility] Review of Systems Physical Exam documented i n this encounter Plan of Treatment Not on filedocumented as of this encounter Procedures + +--------+ + + + | Procedure Name | Priori | Date/Time | Associated Diagnosis | Comments | | | ty | | | | + +--------+ + + + | POCT URINALYSIS, | Routin | 05/19/2013 | Chronic kidney | Results for this | | AUTO WITH CONF | e | 4:42 PM | disease (CKD), stage | procedure are in the | | | | PDT | V (HCC) | results section. | + +--------+ + + + documented in this encounter Results POCT Urinalysis Dipstick Automated (05/19/2013 4:42 PM PDT) + + + + + [...] | 1.020 | | | | | [place], | | | | | | UA, [...] | Chronic kidney disease (CKD), stage V ([facility]) - Primary Chronic kidney disease, Stage V | + + | Type II or unspecified type diabetes mellitus with renal manifestations, | | uncontrolled(250.42) (HCC) Type II or unspecified type diabetes mellitus with renal | | manifestations, uncontrolled | + + | Unspecified essential hypertension | + + | Secondary hyperparathyroidism (of renal origin) | + + | Right renal mass Unspecified disorder of kidney and ureter | + + documented in this encounter
--- OUTSIDE RECORDS SUMMARY | ~2020-03-04 | XMS | Encounter Summary ---
Demographics + + + | Address | [address] | | | [place] [address] | + + + | Home Phone [...] | Organization | [facility] | | | and [...] Team Providers + +------+ + | Care Referral Coordinator Name | Role | Phone | [...] NEPHROLOGY [address] | M, DO [address] | | | | | [address] | [place], [address] | | | | | [place] | [place] | | | | | [address] | [address] | | | | | [phone] | | | +--------+ + + + [...]
--- OUTSIDE RECORDS SUMMARY | ~2020-03-04 | XMS | Encounter Summary ---
Demographics + + + | Address | [address] | | | [place] [address] | + + + | Home Phone [...] | Author | [facility] [employer] [facility] | + + + | Organization | [facility] [...] Providers + +------+ + | Care Warehouse Assembly Worker Name | Role | Phone | + +------+ + | Frances Obrien MD | PCP | | + +------+ + Reason for Visit + + + | Reason | Comments | + + + | Pre Transplant | | | Workup | | + + + Encounter Details +--------+ + + + + | Date | Type | Department | Care Team | Description | +--------+ + + + + | 09/09/ | Telephone | Clinical | Colleen Amaro, | Pre Transplant | | 2013 | | Transplant Services | RN [address] | Workup | | | | [address] | [address] | | | | | [place], | [place], [place] | | | | | [place] [address] | [address] | | | | | [phone] | | | +--------+ + + + [...]
--- OUTSIDE RECORDS SUMMARY | ~2020-03-04 | XMS | Encounter Summary ---
Demographics + + + | Address | [address] | | | [place] [address] | + + + | Home Phone [...] Organization | [facility] | [...] Team Providers + +------+ + | Care District Attorney Name | Role | Phone | [...] [address] | [address], [place] [address] | | | | | [place] | [address] [place] | | | | | [address] | [address] | | | | | [phone] | | | +--------+ + + + [...] - 07/07/2013 4:50 PM Denisse Tovar at [facility]'s request: patient's progress note for 06/26/13, phone note from 06/30/13, [facility] discharge summa ry were faxed to [phone] on 07/07/13.Electronically signed by Dedra Camara at 013 4:52 PM PDTdocumented in this encounter Plan of Treatment Not on filedocumented as of this encounter Visit Diagnoses Not on filedocumented in this encounter"
--- OUTSIDE RECORDS SUMMARY | ~2020-03-04 | XMS | Encounter Summary ---
Demographics + + + | Address | [address] | | | [place] [address] | + + + | Home Phone [...] | Organization | [facility] | [...] Team Providers + +------+ + | Care Sql Consultant Name | Role | Phone | + +------+ + PCP | Unavailable | + +------+ + Encounter Details +--------+ + + + + | Date | Type | Department | Care Team | Description | +--------+ + + + + | 05/02/ | [facility] | [facility] [place] | Lexi Kuo W, | | | 2019 | Encounter | NEPHROLOGY [address] | [address] | | | | | [address] | [address] [place] | | | | | [place] | [place] [address] | | | | | [address] | [phone] | | | | | [phone] | | | +--------+ + + + [...]
--- OUTSIDE RECORDS SUMMARY | ~2020-03-04 | XMS | Encounter Summary ---
Demographics + + + | Address | [address] | | | [place] [address] | + + + | Home Phone | | + + + | Preferred Language | Unknown | + + + | Marital Status | | + + + | Mormonism Affiliation | 1041 | + + + | Race | Unknown | + + + | Ethnic Group | Unknown | + + + Author + + + | Author | [facility] | | | and Scarana | + + + | Organization | [facility] | | [...] Team Providers + +------+ + | Care Keyseater Operator Name | Role | Phone | + +------+ + PCP | Unavailable | + +------+ + Encounter Details +--------+ + + + + | Date | Type | Department | Care Team | Description | +--------+ + + + + | 05/24/ | Abstract | [facility] [place] | Uche Orozco | | | 2017 | | NEPHROLOGY [address] | M, DO [address] | | | | | [address] | [place], [address] | | | | | [place] | [place] | | | | | [address] | [address] | | | | | [phone] | | | +--------+ + + + [...] + documented as of this encounter Progress Dedra Ortiz - 05/24/2017 8:11 AM PDTOutside record: Copy of letter that [facility] sent to patient, dos: 05-23-17. Sent to scan.Electronically emery d by Dedra Camara at 05/24/2017 8:14 AM PDTdocumented in this encounter Plan of Treatment Not on filedocumented as of this encounter Visit Diagnoses Not on filedocumented in this encounter"
--- OUTSIDE RECORDS SUMMARY | ~2020-03-04 | XMS | Encounter Summary ---
Demographics + + + | Address | [address] | | | [place] [address] | + + + | Home Phone [...] Organization | [facility] | | | and [place] | [...] Team Providers + +------+ + | Care Utility Maintenance Worker Name | Role | Phone | [...] | [address] | [place], [address] | associated with | | | | [place], [place] | [place], [place] | diabetes mellitus | | | | [address] | [address] | due to underlying | | | | [phone] | | condition (HCC) | | | [...]
--- OUTSIDE RECORDS SUMMARY | ~2020-03-04 | XMS | Encounter Summary ---
Demographics + + + | Address | [address] | | | [place] [address] | + + + | Home Phone [...] | Organization | [facility] | [...] Team Providers + +------+ + | Care Erp Analyst Name | Role | Phone | [...] NEPHROLOGY [address] | MD [address] | (Asymptomatic) | | | | [address] | [address] [place] | | | | | [place], [place] | [place] [address] | | | | | [address] | [phone] | | | | | [phone] | | | +--------+ + + + [...] PM PSTHEMO progress note manually faxed to [facility] in [place], [place] and e-faxed to Frances Obrien MD on 10/17/13. Lexi Cool MD - 10/17/2013 12:00 PM PS T Comprehensive Dialysis Monthly Note Date of visit: 10/17/2013 Dialysis Clinic: [facility] Mode of dialysis: Hemodialysis Dialysis prescription: MWF, [...] by mouth Daily. 30 tablet 5 B Ligrmyt-P-Mvril Acid (OLEG-TEQUILA RX) 1 MG TABS Take [...] optimize health; demonstrate participation and compliance w [facility] medical care. 9. DM type [...]
--- OUTSIDE RECORDS SUMMARY | ~2020-03-04 | XMS | Encounter Summary ---
Demographics + + + | Address | [address] | | | [place] [address] | + + + | Home Phone [...] + + + | Author | [facility] | + + + | Organization | [facility] | + + + | Address [...] Team Providers + +------+ + | Care Aqueduct And Reservoir Keeper Name | Role | Phone | + [...] | | Transplant Services | RN [address] [facility] | | | | | [address] | [address] | | | | | [place], | [place], [place] | | | | | [place] [address] | [address] | | | | | [phone] | | | +--------+ + + + [...]
--- OUTSIDE RECORDS SUMMARY | ~2020-03-04 | XMS | Encounter Summary ---
Demographics + + + | Address | [address] | | | [place] [address] | + + + | Home Phone [...] | [facility] | [...] Providers + +------+ + | Care Traffic Checker Name | Role | Phone | + [...] | | | disease | NW | [place], [place] | | | | | ([facility]) | [place] | [address] | | | | | Procedures | [address] | [place] | | | | | [place] OFFICE | [facility] | [address] Phone: | | | | | OUTPATIENT | [place] | [phone] | | | | | VISIT 25 | [address] | Fax: | | | | | MINUTES | Phone: | [phone] | | | | | dialysis | [phone] | | | | | | | Fax: | | | | | | | [phone] | | +--------+--------+ + + + + [...] | [address] | [place], [address] | (Primary Dx) | | | | [place] | [place] | | | | | [address] | [address] | | | | | [phone] | | | +--------+ + + + [...] by mouth Daily. 30 tablet 5 B Hismcjj-I-Unlcm Acid (OLEG-TEQUILA RX) 1 MG TABS Take [...] This was called to the Pharmacy at [facility]. 5. Nutrition-- serum albumin is decreased. [...] He is to have an F-gram with BANK MESSENGER in next 7 days to optimize the adequacy. 5. Will requisition for a 2.0 square-cm dialyzer. 6. He will be rechecked in 2 weeks. : [facility] Monica Cornejo MD documented in thi s encounter Plan of Treatment Not on filedocumented as of this encounter Visit Diagnoses + + | Diagnosis | + + | End stage renal disease (HCC) - Primary End stage renal disease | + + documented in this encounter"
--- OUTSIDE RECORDS SUMMARY | ~2020-03-04 | XMS | Encounter Summary ---
Demographics + + + | Address | [address] | | | [place] [address] | + + + | Home Phone [...] | Organization | [facility] | | | and [...] Team Providers + +------+ + | Care Shape Carver Name | Role | Phone | + [...] | | | disease | [address] | [place], [place] | | | | | ([facility]) | [place] | [address] | | | | | Procedures | [address] | [place] | | | | | [place] OFFICE | [facility] | [address] Phone: | | | | | OUTPATIENT | [place] | [phone] | | | | | VISIT 25 | [address] | Fax: | | | | | MINUTES | Phone: | [phone] | | | | | dialysis | [phone] | | | | | | | Fax: | | | | | | | [phone] | | +--------+--------+ + + + + [...] | [address] | [place], [address] | (Primary Dx) | | | | [place] | [place] | | | | | [address] | [address] | | | | | [phone] | | | +--------+ + + + [...] Disp: 30 tablet, R fl: 5 B Ndbkrca-L-Ygqmd Acid (OLEG-TEQUILA RX) 1 MG TABS, Take [...] Will recheck him in 2 weeks. : [facility] Monica Cornejo MD documented in thi s encounter Plan of Treatment Not on filedocumented as of this encounter Visit Diagnoses + + | Diagnosis | + + | End stage renal disease (HCC) - Primary End stage renal disease | + + documented in this encounter"
--- OUTSIDE RECORDS SUMMARY | ~2020-03-04 | XMS | Encounter Summary ---
Demographics + + + | Address | [address] | | | [place] [address] | + + + | Home Phone | | + + + | Preferred Language | Unknown | + + + | Marital Status | | + + + | Evangelical Affiliation | 1041 | + + + | Race | Unknown | + + + | Ethnic Group | Unknown | + + + Author + + + | Author | [facility] | | | and Scar[place] | + + + | Organization | [facility] [...] Team Providers + +------+ + | Care Health Policy Nurse Name | Role | Phone | [...] [place] | | | | | ([facility]) | [place] | [address] [place] | | | | | Procedures | [address] | [place] | | | | | [place] OFFICE | Phone: | [address] Phone: | | | | | OUTPATIENT | [phone] | [phone] | | | | | VISIT 25 | Fax: | Fax: | | | | | MINUTES | [phone] | [phone] | +--------+--------+ + + + + Encounter [...] | [address] | [place], [address] | (Primary Dx) | | | | [place], [place] | [place] | | | | | [address] | [address] | | | | | [phone] | | | +--------+ + + + [...] is seen on outpatient HD, at the [facility] [place] . He also has T2DM, requiring insulin, [...] by mouth Daily. 30 tablet 5 B Reyoezh-B-Chmut Acid (OLEG-TEQUILA RX) 1 MG TABS Take [...] Will recheck him in one week. CC: [facility] documented in thi s encounter Plan of Treatment Not on filedocumented as of this encounter Visit Diagnoses + + | Diagnosis | + + | End stage renal disease (HCC) - Primary End stage renal disease | + + documented in this encounter
--- OUTSIDE RECORDS SUMMARY | ~2020-03-04 | XMS | Encounter Summary ---
Demographics + + + | Address | [address] | | | [place] [address] | + + + | Home Phone | | + + + | Preferred Language | Unknown | + + + | Marital Status | | + + + | Adventism Affiliation | 1041 | + + + | Race | Unknown | + + + | Ethnic Group | Unknown | + + + Author + + + | Author | [facility] | | | and Scarana | + + + | Organization | [facility] | | | and [...] Team Providers + +------+ + | Care Gunner'S Mate G Name | Role | Phone | + [...] NEPHROLOGY [address] | M, DO [address] [place] | | | | | [address] | [place], [address] | | | | | [place] | [place] | | | | | [address] | [address] | | | | | [phone] | | | +--------+ + + + [...] AM PDTOutside record: Copy of letter that [facility] sent to patient, dos: 05-23-17. Sent to scan.Electronically emery d by Dedra Camara at 05/24/2017 8:14 AM PDTdocumented in this encounter Plan of Treatment Not on filedocumented as of this encounter Visit Diagnoses Not on filedocumented in this encounter"
--- OUTSIDE RECORDS SUMMARY | ~2020-03-04 | XMS | Encounter Summary ---
Demographics + + + | Address | [address] | | | [place] [address] | + + + | Home Phone [...] + + | Organization | [facility] | | | and [place] [...] Team Providers + +------+ + | Care Hip Hop Performers Name | Role | Phone | + +------+ + PCP | Unavailable | + +------+ + Encounter Details +--------+ + + + + | Date | Type | Department | Care Team | Description | +--------+ + + + + | 04/19/ | Abstract | [facility] [place] | Lexi Kuo W, | | | 2017 | | NEPHROLOGY [address] | [address] | | | | | [address] | [address] [place] | | | | | [place] | [place] [address] | | | | | [address] | [phone] | | | | | [phone] | | | +--------+ + + + [...] of this encounter Progress Dedra Ortiz - 04/19/2017 8:34 AM PDTOutside record: From [facility] [place] fistulagram order, dos: 04-18-17. Sent to scan. documented in this encounter Plan of Treatment Not on filedocumented as of this encounter Visit Diagnoses Not on filedocumented in this encounter"
--- OUTSIDE RECORDS SUMMARY | ~2020-03-04 | XMS | Encounter Summary ---
Demographics + + + | Address | [address] | | | [place] [address] | + + + | Home Phone [...] | Organization | [facility] | [...] Team Providers + +------+ + | Care Carver And Checkerer Specials Name | Role | Phone | + [...] NEPHROLOGY [address] | M, DO [address] | | | | | [address] | [place] | | | | | [place], [place] | [place], [place] | | | | | [address] | [address] | | | | | [phone] | | | +--------+ + + + [...]
--- OUTSIDE RECORDS SUMMARY | ~2020-03-04 | XMS | Encounter Summary ---
Demographics + + + | Address | [address] | | | [place] [address] | + + + | Home Phone [...] + | Organization | [facility] | | | and [...] Team Providers + +------+ + | Care Central Aisle Cashier Name | Role | Phone | + +------+ + PCP | Unavailable | + +------+ + Encounter Details +--------+ + + + + | Date | Type | Department | Care Team | Description | +--------+ + + + + | 06/26/ | Hospital | [facility] | [place], | | | 2012 | Encounter | MED CTR LABORATORY | [address] [address] | | | | | [address] | [address] [facility] | | | | | [place] | [address] [place] | | | | | [address] | [address] | | | | | [phone] | | | +--------+ + + + [...] + + +---------+ + + | B Gykbpyf-A-Ipkjf | Take 1 mg by mouth | [...] + | [facility] | [address] | [place], [place] | [phone] | | [facility] | | [address] | | | - LABORATORY | | | | + + + + + | [facility] | [address] | [place], [place] | | | [facility] | | [id number] [place] [address] | | | - LABORATORY | | [...] + | [facility] | [address] | [place] | [phone] | | [facility] | | [address] | | | - LABORATORY | | | | + + + + + | [facility] | [address] | [place] | | | [facility] | | [address] | | | - LABORATORY | | | | + + + + + documented in this encounter Visit Diagnoses Not on filedocumented in this encounter"
--- OUTSIDE RECORDS SUMMARY | ~2020-03-04 | XMS | Encounter Summary ---
Demographics + + + | Address | [address] | | | [place] [address] | + + + | Home Phone | | + + + | Preferred Language | Unknown | + + + | Marital Status | Single | + + + | Confucianist Affiliation | Unknown | + + + | Race | or | + + + | Ethnic Group | Not or | + + + Author + + + | Author | [facility] | + + + | Organization | [facility] | + + + | Address [...] Providers + +------+ + | Care Tax Manager Name | Role | Phone | [...] refresh) | | | | [address], | [place], [place] | | | | | [place] [address] | [address] | | | | | [phone] | | | +--------+ + + + [...]
--- OUTSIDE RECORDS SUMMARY | ~2020-03-04 | XMS | Encounter Summary ---
Demographics + + + | Address | [address] | | | [place] [address] | + + + | Home Phone [...] | Organization | [facility] | | | and [place] [...] Providers + +------+ + | Care Rn Medicare Name | Role | Phone | + [...] [address] | [address], [place] | | | | | [place] | [address] [place] | | | | | [address] | [address] | | | | | [phone] | | | +--------+ + + + [...]
--- OUTSIDE RECORDS SUMMARY | ~2020-03-04 | XMS | Encounter Summary ---
Demographics + + + | Address | [address] | | | [place] [address] | + + + | Home Phone [...] | Organization | [facility] | | | and [...] Team Providers + +------+ + | Care Edi Specialist Name | Role | Phone | + +------+ + PCP | Unavailable | + +------+ + Encounter Details +--------+ + + + + | Date | Type | Department | Care Team | Description | +--------+ + + + + | 01/07/ | Abstract | [facility] [place] | [facility], | | | 2015 | | GASTROENTEROLOGY | [place] [address] | | | | | [address] | [place], [address] | | | | | [address] [place] | [place] | | | | | [address] | [address] | | | | | [phone] | | | +--------+ + + + [...] + | CULTURE, BLOOD | Routin | 12/09/2014 | | Results for this | | SCREEN | e | 2:50 PM | | procedure are in the | | | | PST | | results section. | + +--------+ + + + | EXTERNAL LAB: BUN | Routin | 12/08/2014 | | Results for this | | | e | 2:50 PM | | procedure are in the | | | | PST | | results section. | + +--------+ + + + | EXTERNAL LAB: | Routin | 12/08/2014 | | Results for this | | GLUCOSE | e | 2:50 PM | | procedure are in the | | | | PST | | results section. | + +--------+ + + + | EXTERNAL LAB: ALT | Routin | 12/08/2014 | | Results for this | | | e | 2:50 PM | | procedure are in the | | | | PST | | results section. | + +--------+ + + + | EXTERNAL LAB: AST | Routin | 12/08/2014 | | Results for this | | | e | 2:50 PM | | procedure are in the | | | | PST | | results section. | + +--------+ + + + | EXTERNAL LAB: | Routin | 12/08/2014 | | Results for this | | ALKALINE PHOSPHATASE | e | 2:50 PM | | procedure are in the | | | | PST | | results section. | + +--------+ + + + | EXTERNAL LAB: | Routin | 12/08/2014 | | Results for this | | BILIRUBIN, TOTAL | e | 2:50 PM | | procedure are in the | | | | PST | | results section. | + +--------+ + + + | EXTERNAL LAB: | Routin | 12/08/2014 | | Results for this | | ALBUMIN | e | 2:50 PM | | procedure are in the | | | | PST | | results section. | + +--------+ + + + | EXTERNAL LAB: | Routin | 12/08/2014 | | Results for this | | PROTEIN, TOTAL | e | 2:50 PM | | procedure are in the | | | | PST | | results section. | + +--------+ + + + | EXTERNAL LAB: | Routin | 12/08/2014 | | Results for this | | CALCIUM | e | 2:50 PM | | procedure are in the | | | | PST | | results section. | + +--------+ + + + | EXTERNAL LAB: CARBON | Routin | 12/08/2014 | | Results for this | | DIOXIDE | e | 2:50 PM | | procedure are in the | | | | PST | | results section. | + +--------+ + + + | EXTERNAL LAB: | Routin | 12/08/2014 | | Results for this | | CHLORIDE | e | 2:50 PM | | procedure are in the | | | | PST | | results section. | + +--------+ + + + | EXTERNAL LAB: | Routin | 12/08/2014 | | Results for this | | POTASSIUM | e | 2:50 PM | | procedure are in the | | | | PST | | results section. | + +--------+ + + + | EXTERNAL LAB: SODIUM | Routin | 12/08/2014 | | Results for this | | | e | 2:50 PM | | procedure are in the | | | | PST | | results section. | + +--------+ + + + | EXTERNAL LAB: CBC | Routin | 12/08/2014 | | Results for this | | | e | 2:50 PM | | procedure are in the | | | | PST | | results section. | + +--------+ + + + | EXTERNAL LAB: EGFR | Routin | 12/08/2014 | | Results for this | | | e | 2:50 PM | | procedure are in the | | | | PST | | results section. | + +--------+ + + + | EXTERNAL LAB: | Routin | 12/08/2014 | | Results for this | | CREATININE | e | 2:50 PM | | procedure are in the | | | | PST | | results section. | + +--------+ + + + | CBC WITH | Routin | 12/08/2014 | | Results for this | | DIFFERENTIAL | e | 2:50 PM | | procedure are in the | | | | PST | | results section. | + +--------+ + + + | HEMOGLOBIN A1C | Routin | 12/08/2014 | | Results for this | | | e | 2:50 PM | | procedure are in the | | | | PST | | results section. | + +--------+ + + + | COMPREHENSIVE | Routin | 12/08/2014 | | Results for this | | METABOLIC PANEL | e | 2:50 PM | | procedure are in the | | | | PST | | results section. | + +--------+ + + + | CREATININE | Routin | 11/24/2014 | | Results for this | | CLEARANCE, RESULT | e | 4:01 PM | | procedure are in the | | | | PST | | results section. | + +--------+ + + + documented in this encounter Results Culture, Blood Screen (12/09/2014 2:50 PM PST) + + + + + + | Component | Value | Ref Range | Performed | Pathologist | | | | | At | Signature | + + + + + + | Culture | No GrowthComment: 12/09/14 | | | | + + + + + + | Culture | See Test | | | | | | CommentsComment: 12/12/14 | | | | | | Growth of gram positive | | | | | | coccus in clusters in | | | | | | the anaerobic bottle | | | | + + + + + + | Culture | See Test | | | | | | CommentsComment: 12/14/14 | | | | | | isolate isentified as | | | | | | staphyococcus | | | | | | epidermidis | | | | + + + + + + + + | Specimen | + + | Blood specimen | | (specimen) | + + CBC with Differential (12/08/2014 2:50 PM PST) + +-------+ + + + | Component | Value | Ref Range | Performed | Pathologist | | | | | At | Signature | + +-------+ + + + | MCH | 30.6 | pg | | | + +-------+ + + + | MCHC | 33.6 | % | | | + +-------+ + + + + + | Specimen | + + | Blood specimen | | (specimen) | + + Comprehensive Metabolic Panel (12/08/2014 2:50 PM PST) + +---------+ + + + | Component | Value | Ref Range | Performed | Pathologist | | | | | At | Signature | + +---------+ + + + | BUN/Creatin | 4.1 (A) | 6.0 | [facility] | | | ine Ratio | | | [facility] | | | | | | [facility] | | | | | | [facility] - | | | | | | LABORATORY | | + +---------+ + + + | Anion Gap | 21 | mmol/L | [facility] | | | | | | [facility] | | | | | | MEDICAL | | | | | | CENTER - | | | | | | LABORATORY | | + +---------+ + + + | Globulin | 4.2 (A) | 3.5 | [facility] | | | | | | [facility] | | | | | | MEDICAL | | | | | | CENTER - | | | | | | LABORATORY | | + +---------+ + + + | Albumin/Ofelia | 0.9 (A) | 1.1 | [facility] | | | bulin Ratio [...] ST. | [address] | [place], [place] | | | [facility] | | [address] | | | - LABORATORY | | | | + + + + + Hemoglobin A1C (12/08/2014 2:50 PM PST) + +---------+ + + + | Component | Value | Ref Range | Performed | Pathologist | | | | | At | Signature | + +---------+ + + + | Hemoglobin | 8.3 (A) | 6.4 % | EXTERNAL | | | A1c | | | LAB | | + +---------+ + + + + + | Specimen | + + | Blood specimen | | (specimen) | + + + + | Resulting Agency Comment | + + | [facility] | + + + +---------+ + + | Performing | Address | City/State/Zipcode | Phone Number | | Organization | | | | + +---------+ + + | EXTERNAL LAB | | | | + +---------+ + + External Lab: RAFY (12/08/2014 2:50 PM PST) + +--------+ + + + | Component | Value | Ref Range | Performed | Pathologist | | | | | At | Signature | + +--------+ + + + | BUN, | 36 (A) | 8 - 25 | EXTERNAL | | | External | | | LAB | | + +--------+ + + + + + | Resulting Agency Comment | + + | [facility] | + + + +---------+ + + | Performing | Address | City/State/Zipcode | Phone Number | | Organization | | | | + +---------+ + + | EXTERNAL LAB | | | | + +---------+ + + External Lab: Glucose (12/08/2014 2:50 PM PST) + +---------+ + + + | Component | Value | Ref Range | Performed | Pathologist | | | | | At | Signature | + +---------+ + + + | Glucose, | 282 (A) | 65 - 99 | EXTERNAL | | | External | | | LAB | | + +---------+ + + + + + | Resulting Agency Comment | + + | [facility] | + + + +---------+ + + | Performing | Address | City/State/Zipcode | Phone Number | | Organization | | | | + +---------+ + + | EXTERNAL LAB | | | | + +---------+ + + External Lab: ALT (12/08/2014 2:50 PM PST) + +-------+ + + + | Component | Value | Ref Range | Performed | Pathologist | | | | | At | Signature | + +-------+ + + + | ALT, | 9 | 7 - 52 | EXTERNAL | | | External | | | LAB | | + +-------+ + + + + + | Resulting Agency Comment | + + | [facility] | + + + +---------+ + + | Performing | Address | City/State/Zipcode | Phone Number | | Organization | | | | + +---------+ + + | EXTERNAL LAB | | | | + +---------+ + + External Lab: AST (12/08/2014 2:50 PM PST) + +-------+ + + + | Component | Value | Ref Range | Performed | Pathologist | | | | | At | Signature | + +-------+ + + + | AST, | 14 | 10 - 45 | EXTERNAL | | | External | | | LAB | | + +-------+ + + + + + | Resulting Agency Comment | + + | [facility] | + + + +---------+ + + | Performing | Address | City/State/Zipcode | Phone Number | | Organization | | | | + +---------+ + + | EXTERNAL LAB | | | | + +---------+ + + External Lab: Alkaline Phosphatase (12/08/2014 2:50 PM PST) + +-------+ + + + | Component | Value | Ref Range | Performed | Pathologist | | | | | At | Signature | + +-------+ + + + | ALP, | 73 | 30 - 115 | EXTERNAL | | | External | | | LAB | | + +-------+ + + + + + | Resulting Agency Comment | + + | [facility] | + + + +---------+ + + | Performing | Address | City/State/Zipcode | Phone Number | | Organization | | | | + +---------+ + + | EXTERNAL LAB | | | | + +---------+ + + External Lab: Bilirubin, Total (12/08/2014 2:50 PM PST) + +-------+ + + + | Component | Value | Ref Range | Performed | Pathologist | | | | | At | Signature | + +-------+ + + + | Bilirubin, | 0.5 | 0 - 1 | EXTERNAL | | | Total, | | | LAB | | | External | | | | | + +-------+ + + + + + | Resulting Agency Comment | + + | [facility] | + + + +---------+ + + | Performing | Address | City/State/Zipcode | Phone Number | | Organization | | | | + +---------+ + + | EXTERNAL LAB | | | | + +---------+ + + External Lab: Albumin (12/08/2014 2:50 PM PST) + +-------+ + + + | Component | Value | Ref Range | Performed | Pathologist | | | | | At | Signature | + +-------+ + + + | Albumin, | 3.9 | 3.5 - 5 | EXTERNAL | | | External | | | LAB | | + +-------+ + + + + + | Resulting Agency Comment | + + | [facility] | + + + +---------+ + + | Performing | Address | City/State/Zipcode | Phone Number | | Organization | | | | + +---------+ + + | EXTERNAL LAB | | | | + +---------+ + + External Lab: Protein, Total (12/08/2014 2:50 PM PST) + +-------+ + + + | Component | Value | Ref Range | Performed | Pathologist | | | | | At | Signature | + +-------+ + + + | Protein, | 8.1 | 6.6 - 8.2 | EXTERNAL | | | Total, | | | LAB | | | External | | | | | + +-------+ + + + + + | Resulting Agency Comment | + + | [facility] | + + + +---------+ + + | Performing | Address | City/State/Zipcode | Phone Number | | Organization | | | | + +---------+ + + | EXTERNAL LAB | | | | + +---------+ + + External Lab: Calcium (12/08/2014 2:50 PM PST) + +-------+ + + + | Component | Value | Ref Range | Performed | Pathologist | | | | | At | Signature | + +-------+ + + + | Calcium, | 9.0 | 8.5 - 10.2 | EXTERNAL | | | External | | | LAB | | + +-------+ + + + + + | Resulting Agency Comment | + + | [facility] | + + + +---------+ + + | Performing | Address | City/State/Zipcode | Phone Number | | Organization | | | | + +---------+ + + | EXTERNAL LAB | | | | + +---------+ + + External Lab: Carbon Dioxide (12/08/2014 2:50 PM PST) + +-------+ + + + | Component | Value | Ref Range | Performed | Pathologist | | | | | At | Signature | + +-------+ + + + | Carbon | 26 | 22 - 31 | EXTERNAL | | | Dioxide, | | | LAB | | | External | | | | | + +-------+ + + + + + | Resulting Agency Comment | + + | [facility] | + + + +---------+ + + | Performing | Address | City/State/Zipcode | Phone Number | | Organization | | | | + +---------+ + + | EXTERNAL LAB | | | | + +---------+ + + External Lab: Chloride (12/08/2014 2:50 PM PST) + +--------+ + + + | Component | Value | Ref Range | Performed | Pathologist | | | | | At | Signature | + +--------+ + + + | Chloride, | 91 (A) | 95 | EXTERNAL | | | External | | | LAB | | + +--------+ + + + + + | Resulting Agency Comment | + + | [facility] | + + + +---------+ + + | Performing | Address | City/State/Zipcode | Phone Number | | Organization | | | | + +---------+ + + | EXTERNAL LAB | | | | + +---------+ + + External Lab: Potassium (12/08/2014 2:50 PM PST) + +-------+ + + + | Component | Value | Ref Range | Performed | Pathologist | | | | | At | Signature | + +-------+ + + + | Potassium, | 4.8 | 3.5 - 5.3 | EXTERNAL | | | External | | | LAB | | + +-------+ + + + + + | Resulting Agency Comment | + + | [facility] | + + + +---------+ + + | Performing | Address | City/State/Zipcode | Phone Number | | Organization | | | | + +---------+ + + | EXTERNAL LAB | | | | + +---------+ + + External Lab: Sodium (12/08/2014 2:50 PM PST) + +-------+ + + + | Component | Value | Ref Range | Performed | Pathologist | | | | | At | Signature | + +-------+ + + + | Sodium, | 133 | 132 - 142 | EXTERNAL | | | External | | | LAB | | + +-------+ + + + + + | Resulting Agency Comment | + + | [facility] | + + + +---------+ + + | Performing | Address | City/State/Zipcode | Phone Number | | Organization | | | | + +---------+ + + | EXTERNAL LAB | | | | + +---------+ + + External Lab: CBC (12/08/2014 2:50 PM PST) + + + + + + | Component | Value | Ref Range | Performed | Pathologist | | | | | At | Signature | + + + + + + | WBC, | 9.5 | | EXTERNAL | | | External | | | LAB | | + + + + + + | HGB, | 11.0 (A) | 13.5 | EXTERNAL | | | External | | | LAB | | + + + + + + | HCT, | 32.7 (A) | 40 | EXTERNAL | | | External | | | LAB | | + + + + + + | PLT, | 251 | 140 - 450 | EXTERNAL | | | External | | | LAB | | + + + + + + | Neutrophils | 61.1 | | EXTERNAL | | | %, | | | LAB | | | External | | | | | + + + + + + | Lymphocytes | 28.4 | | EXTERNAL | | | %, | | | LAB | | | External | | | | | + + + + + + | RBC, | 3.60 (A) | 4.3 | EXTERNAL | | | External | | | LAB | | + + + + + + | MCV, | 91 | 81 | EXTERNAL | | | External | | | LAB | | + + + + + + | RDW, | 13.6 | 10.5 | EXTERNAL | | | External | | | LAB | | + + + + + + + + | Resulting Agency Comment | + + | [facility] | + + + +---------+ + + | Performing | Address | City/State/Zipcode | Phone Number | | Organization | | | | + +---------+ + + | EXTERNAL LAB | | | | + +---------+ + + External Lab: eGFR (12/08/2014 2:50 PM PST) + +-------+ + + + | Component | Value | Ref Range | Performed | Pathologist | | | | | At | Signature | + +-------+ + + + | eGFR, | 6 (A) | 60 - 99,999 | EXTERNAL | | | External | | | LAB | | + +-------+ + + + + + | Specimen | + + | Blood specimen | | (specimen) | + + + + | Resulting Agency Comment | + + | [facility] | + + + +---------+ + + | Performing | Address | City/State/Zipcode | Phone Number | | Organization | | | | + +---------+ + + | EXTERNAL LAB | | | | + +---------+ + + External Lab: Creatinine (12/08/2014 2:50 PM PST) + + + + + + | Component | Value | Ref Range | Performed | Pathologist | | | | | At | Signature | + + + + + + | Creatinine, | 8.75 (A) | 0.5 - 1 | EXTERNAL | | | External | | | LAB | | + + + + + + + + | Specimen | + + | Blood specimen | | (specimen) | + + + + | Resulting Agency Comment | + + | [facility] | + + + +---------+ + + | Performing | Address | City/State/Zipcode | Phone Number | | Organization | | | | + +---------+ + + | EXTERNAL LAB | | | | + +---------+ + + Creatinine Clearance, Result (11/24/2014 4:01 PM PST) + +-------+ + + + | Component | Value | Ref Range | Performed | Pathologist | | | | | At | Signature | + +-------+ + + + | Microalbumi | 76.3 | mg/dL | [facility] | | | n, Urine | | | [facility] | | | | | | MEDICAL | | | | | | CENTER - | | | | | | LABORATORY | | + +-------+ + + + | Microalb | 908.3 | | [facility] | | | Creat Ratio | | | [facility] | | | | | | MEDICAL | | | | | | CENTER - | | | | | | LABORATORY | | + +-------+ + + + | Creatinine, | 84 | mg/dL | [facility] | | | Urine | | | [facility] | | [...] | [address] | [place] | | | [facility] | | [address] | | | - LABORATORY | | | | + + + + + documented in this encounter Visit Diagnoses Not on filedocumented in this encounter"
--- OUTSIDE RECORDS SUMMARY | ~2020-03-04 | XMS | Encounter Summary ---
Demographics + + + | Address | [address] | | | [place] [address] | + + + | Home Phone [...] | Organization | [facility] | [...] Providers + +------+ + | Care Marketing Community Liaison Name | Role | Phone | + [...] [address] | [address], [place] | | | | | [place] | [address] [place] | | | | | [address] | [address] | | | | | [phone] | | | +--------+ + + + [...]
--- OUTSIDE RECORDS SUMMARY | ~2020-03-04 | XMS | Encounter Summary ---
Demographics + + + | Address | [address] | | | [place] [address] | + + + | Home Phone [...] | Organization | [facility] [...] Providers + +------+ + | Care Bridge Construction Inspector Name | Role | Phone | [...] [place] | | | | | ([facility]) | [place] | [address] | | | | | Procedures | [address] | [place] | | | | | [place] OFFICE | Phone: | [phone] Phone: | | | | | OUTPATIENT | [phone] | [phone] | | | | | VISIT 25 | Fax: | Fax: | | | | | MINUTES | [phone] | [phone] | +--------+--------+ + + + + Encounter [...] | [address] | [place], [place] [address] | (Primary Dx) | | | | [place], [place] | [place] | | | | | [address] | [address] | | | | | [phone] | | | +--------+ + + + [...] also I discussed having him see and Assistant Manager Pt, to look over his diabeti c regimen. After discussion, he is agreeable to changing his Lantus to the former. He will consider t he Endocrine Consult and let us know. : [facility], [place], [place] [facility] tUche avelar DO - 12/07/2015 3:17 PM PST . Subjective: [facility] DIALYSIS NOTE Patient ID: Celso Caro is a 55 y.o. male. 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 He also has T2DM, requiring insulin, anemia secondary to CKD, hyperlipidemia, and Hepatit is C. he is doing better with compliance, and especially his fluid intake especially here at the [facility]. He is very pleasant to work with. He appears punctual. Outpatient Prescriptions Marked as Taking for the 11/29/15 encounter (Off-Site Visit) with Jean Orozco DO Medication Sig Dispense Refill aspirin 81 mg EC tablet Take 81 mg by mouth Daily. atorvaSTATin (LIPITOR) 20 mg tablet Take 1 tablet by mouth Daily. 30 tablet 5 B Ovglowd-O-Elusa Acid (OLEG-TEQUILA RX) 1 MG TABS Take [...] listed. 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 Plan: 1. I encourage Herman to work on both his CHO intake, glycemic control, and limiting his PO4 intake. 2. He appears very conscientious about keeping all of his txs. 3. I reinforced the need to time Renvela exactly AC and HS. 4. Will recheck him in 2 weeks. CC: [facility] AmericaElectronically signed by Uche Orozco DO at 3:43 PM PSTdocumented in this encounter Plan of Treatment Not on filedocumented as of this encounter Visit Diagnoses + + | Diagnosis | + + | End stage renal disease (HCC) - Primary End stage renal disease | + + documented in this encounter"
--- OUTSIDE RECORDS SUMMARY | ~2020-03-04 | XMS | Encounter Summary ---
Demographics + + + | Address | [address] | | | [place] [address] | + + + | Home Phone [...] + + + | Organization | and [facility] [...] Providers + +------+ + | Care District Agent Name | Role | Phone | [...] [address] | [address], [place] | | | | | [place] | [address] [place] | | | | | [address] | [address] | | | | | [phone] | | | +--------+ + + + [...]
--- OUTSIDE RECORDS SUMMARY | ~2020-03-04 | XMS | Encounter Summary ---
Demographics + + + | Address | [address] | | | [place] [address] | + + + | Home Phone | | + + + | Preferred Language | Unknown | + + + | Marital Status | | + + + | Jainism Affiliation | 1041 | + + + | Race | Unknown | + + + | Ethnic Group | Unknown | + + + Author + + + | Author | [facility] | | | and [place] | + + + | Organization | [facility] | | | and [place] [...] Team Providers + +------+ + | Care Copy Chief Name | Role | Phone | + [...] [place] | | | | | ([facility]LY [facility]) | [place] | [address] [place] | | | | | Procedures | [address] | [place] | | | | | [place] OFFICE | Phone: | [phone] Phone: | | | | | OUTPATIENT | [phone] | [phone] | | | | | VISIT 25 | Fax: | Fax: | | | | | MINUTES | [phone] | [phone] | +--------+--------+ + + + + Encounter [...] [address] | [place], [place] [address] | (Primary Dx); | | | | [place], [place] | [place] | Essential | | | | [address] | [address] | hypertension | | | | [phone] | | | +--------+ + + + [...] DO - 10/05/2015 10:21 AM PST Subjective: [facility] DIALYSIS NOTE Patient ID: Celso Caro is a 55 y.o. male. 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 He also has T2DM, requiring insulin, anemia secondary to CKD, hyperlipidemia, and Hepatit is C. he is doing better with compliance, and especially his fluid intake especially here at the [facility]. He is very pleasant to work with. He appears punctual. Outpatient Prescriptions Marked as Taking for the 10/04/15 encounter (Off-Site Visit) with Uche Orozco DO Medication Sig Dispense Refill aspirin 81 mg EC tablet Take 81 mg by mouth Daily. atorvaSTATin (LIPITOR) 20 mg tablet Take 1 tablet by mouth Daily. 30 tablet 5 B Nixglqs-S-Foohw Acid (OLEG-TEQUILA RX) 1 MG TABS Take [...] listed. 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 Plan: 1. Will recheck his HbA1c, PTH next month. 2. I encouraged Herman to time the 1600 mg Renvela capsules, exactly AC&HS. 3. His adequacy, blood pressure, and ECF volume appears stable on his current Rx. Will re check him in 2 weeks. [facility] at [...]
--- OUTSIDE RECORDS SUMMARY | ~2020-03-04 | XMS | Encounter Summary ---
Demographics + + + | Address | [address] | | | [place] [address] | + + + | Home Phone [...] | Organization | [facility] | [...] Team Providers + +------+ + | Care Tail End Rider Name | Role | Phone | + [...] [address] | [address], [place] | | | | | [place] | [address] [place] | | | | | [address] | [address] | | | | | [phone] | | | +--------+ + + + [...] | | | LAB | | | [place]ian, | | | | | | External [...]
--- OUTSIDE RECORDS SUMMARY | ~2020-03-04 | XMS | Encounter Summary ---
Demographics + + + | Address | [address] | | | [place] [address] | + + + | Home Phone [...] | Organization | [facility] | [...] Team Providers + +------+ + | Care Glove Brusher Name | Role | Phone | + [...] | [address] | [place], [place] [address] | hypertension (HCC) | | | | [place], [place] | [place] | | | | | [address] | [address] | | | | | [phone] | | | +--------+ + + + [...]
--- OUTSIDE RECORDS SUMMARY | ~2020-03-04 | XMS | Encounter Summary ---
Demographics + + + | Address | [address] | | | [place] [address] | + + + | Home Phone | | + + + | Preferred Language | Unknown | + + + | Marital Status | Single | + + + | Quaker Affiliation | Unknown | + + + | Race | or | + + + | Ethnic Group | Not or | + + + Author + + + | Author | [facility] | + + + | Organization | [facility] | + + + | [...] Team Providers + +------+ + | Care Car Dryer Name | Role | Phone | + [...] [place] | | | | | | [phone] | | | +--------+ + + + [...]
--- OUTSIDE RECORDS SUMMARY | ~2020-03-04 | XMS | Encounter Summary ---
Demographics + + + | Address | [address] | | | [place] [address] | + + + | Home Phone [...] Team Providers + +------+ + | Care Refrigeration Engine Operator Name | Role | Phone | [...] | | | disease | NW | [place], [place] | | | | | ([facility]) | [place] | [address] | | | | | Procedures | [address] | [place] | | | | | [place] OFFICE | [facility] | [address] Phone: | | | | | OUTPATIENT | [place] | [phone] | | | | | VISIT 25 | [address] | Fax: | | | | | MINUTES | Phone: | [phone] | | | | | dialysis | [phone] | | | | | | | Fax: | | | | | | | [phone] | | +--------+--------+ + + + + [...] | [address] | [place], [place] [address] | (Primary Dx) | | | | [place] | [place] | | | | | [address] | [address] | | | | | [phone] | | | +--------+ + + + [...] Take 81 mg by mouth Daily. B Xpocijv-Z-Zrkxa Acid (OLEG-TEQUILA RX) 1 MG TABS Take [...] has declined to draw HbA1c with the [facility] lab? Will draw separately. 7. Hepatitis C-- stable. 8. Hyperlipidemia--on statin Rx. 9. Transplantation--work up in progress. Plan: 1. The vintage on his [place] AVF is becoming longer. He has had [...] him in one month with lab. : [facility] documented in thi s encounter Plan of Treatment Not on filedocumented as of this encounter Visit Diagnoses + + | Diagnosis | + + | End stage renal disease (HCC) - Primary End stage renal disease | + + documented in this encounter
--- OUTSIDE RECORDS SUMMARY | ~2020-03-04 | XMS | Encounter Summary ---
Demographics + + + | Address | [address] | | | [place] [address] | + + + | Home Phone [...] + | Organization | [facility] | [...] Team Providers + +------+ + | Care Fish Conservationist Name | Role | Phone | + [...] | | | disease | NW | [place], [place] | | | | | ([facility]) | [place] | [address] | | | | | Procedures | [address] | [place] | | | | | IN OFFICE | [facility] | [address] Phone: | | | | | OUTPATIENT | [place] | [phone] | | | | | VISIT 25 | [address] | Fax: | | | | | MINUTES | Phone: | [phone] | | | | | dialysis | [phone] | | | | | | | Fax: | | | | | | | [phone] | | +--------+--------+ + + + + [...] | [address] | [place], [place] [address] | (Primary Dx) | | | | [place] | [place] | | | | | [address] | [address] | | | | | [phone] | | | +--------+ + + + [...] DO - 04/02/2017 9:30 AM PDT Subjective: [facility] DIALYSIS NOTE Patient ID: Celso Sutton Case is a 57 y.o. male. HPI Comments: Celso is seen on the MWF shift at [place]. He is a pleasant, 56 YO male with ESRD secondary to diabetic nephropathy. He denies chest tyra n, cramps, or anorexia. 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 He also has a History of T2DM, requiring insulin, anemia secondary to CKD, hyperlipidemia, and Hepatitis C. Outpatient Prescriptions Marked as Taking for the 04/02/17 encounter (Off-Site Visit) with Jean Orozco DO Medication Sig Dispense Refill aspirin 81 mg EC tablet Take 81 mg by mouth Daily. atorvaSTATin (LIPITOR) 20 mg tablet Take 1 tablet by mouth Daily. 30 tablet 5 B Kvgodox-M-Ffbmf Acid (OLEG-TEQUILA RX) 1 MG TABS Take [...] recheck him in 2 weeks. : [facility] Monica Cornejo MD documented in thi s encounter Plan of Treatment Not on filedocumented as of this encounter Visit Diagnoses + + | Diagnosis | + + | End stage renal disease (HCC) - Primary End stage renal disease | + + documented in this encounter"
--- OUTSIDE RECORDS SUMMARY | ~2020-03-04 | XMS | Encounter Summary ---
Demographics + + + | Address | [address] | | | [place] [address] | + + + | Home Phone [...] | [facility] | | | and [place] [...] Team Providers + +------+ + | Care Paginator Name | Role | Phone | + [...] | [address] | [place], [place] [address] | (of renal origin) | | | | [place] | [place] | ([facility]) (Primary Dx); | | | | [address] | [address] | End stage renal | | | | [phone] | | disease (HCC); | | | [...] by mouth Daily. 30 tablet 5 B Gkdbghi-U-Fdaqq Acid (OLEG-TEQUILA RX) 1 MG TABS Active [...] ESRD--he appears well dialyzed on 4 hours, Wofqruum20S, 2K+, QB 400, QD 600. 2. Hypertension--stable [...] 300. 3. He is to have a [place] AVF constructed with Dr. Artem Angelo in the next 2 weeks. 4. Will recheck his lipid profile, Hbaic quarterly here at the [facility]. CC: Artem Angelo MD [facility] documented in thi s encounter Plan of [...]
--- OUTSIDE RECORDS SUMMARY | ~2020-03-04 | XMS | Encounter Summary ---
Demographics + + + | Address | [address] | | | [place] [address] | + + + | Home Phone [...] | [facility] | [...] Providers + +------+ + | Care Supervisor Cigar Processing Name | Role | Phone | + [...] | | | | | flutter | [place], [place] | [address] [place] | | | | | ([facility]) End | [address] [place] | [address] [place] | | | | | stage renal | [place], [place] | [place] | | | | | disease | [address] | [address] Phone: | | | | | ([facility]) | Phone: | [phone] | | | | | Osteomyeliti | [phone] | Fax: | | | | | s of foot, | Fax: | [phone] | | | | | left, acute | [phone] | | | | | | ([facility]) | | | | | | | Procedures | | | | | | | SPECIAL EDUCATION PROFESSOR | | | +--------+ + + + [...] | [address] | [place], [place] [address] | | | | | [place], [place] | [place] | | | | | [address] | [address] | | | | | [phone] | | | +--------+---------+ + + + [...]
--- OUTSIDE RECORDS SUMMARY | ~2020-03-04 | XMS | Encounter Summary ---
Demographics + + + | Address | [address] | | | [place] [address] | + + + | Home Phone | | + + + | Preferred Language | Unknown | + + + | Marital Status | | + + + | Gnosticism Affiliation | 1041 | + + + [...] Team Providers + +------+ + | Care Final Assembly And Packing Supervisor Name | Role | Phone | [...] | [address] | [place], [place] [address] | | | | | [place] | [place] | | | | | [address] | [address] | | | | | [phone] | | | +--------+ + + + [...] is seen on outpatient HD at the [facility]. He also has T2DM, requiring insulin, anemia [...] by mouth Daily. 30 tablet 5 B Snkzwfk-B-Oagjx Acid (OLEG-TEQUILA RX) 1 MG TABS Take [...] month with lab. CC: Artem Angelo MD [facility] documented in thi s encounter Plan of Treatment Not on filedocumented as of this encounter Visit Diagnoses Not on filedocumented in this encounter
--- OUTSIDE RECORDS SUMMARY | ~2020-03-04 | XMS | Encounter Summary ---
Demographics + + + | Address | [address] | | | [place] [address] | + + + | Home Phone [...] | [facility] | | | [...] Team Providers + +------+ + | Care Integrative Medicine Physician Name | Role | Phone | [...] (Instructions) | | 2012 | | [facility] | [place] | | | | | [address] | | | | | | [place], [place] | | | | | | [address] | | | | | | [phone] | | | +--------+ + + + [...]
--- OUTSIDE RECORDS SUMMARY | ~2020-03-04 | XMS | Encounter Summary ---
Demographics + + + | Address | [address] | | | [place] [address] | + + + | Home Phone | | + + + | Preferred Language | Unknown | + + + | Marital Status | | + + + | Protestant Affiliation | 1041 | + + + | Race | Unknown | + + + | Ethnic Group | Unknown | + + + Author + + + | Author | [facility] | | | and [place] | + + + | Organization | [facility] | | | and [...] Team Providers + +------+ + | Care Configuration Manager Name | Role | Phone | [...] | [address] | [place], [place] [address] | | | | | [place] | [place] | | | | | [address] | [address] | | | | | [phone] | | | +--------+ + + + [...] secondar y to diabetic nephropathy. 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 30 tablet 5 B Dicwdbo-J-Wxhih Acid (OLEG-TEQUILA RX) 1 MG TABS Take [...] recheck him in 2 weeks. : [facility] Monica Cornejo MD documented in thi s encounter Plan of Treatment Not on filedocumented as of this encounter Visit Diagnoses + + | Diagnosis | + + | End stage renal disease (HCC) - Primary End stage renal disease | + + documented in this encounter"
--- OUTSIDE RECORDS SUMMARY | ~2020-03-04 | XMS | Encounter Summary ---
Demographics + + + | Address | [address] | | | [place] [address] | + + + | Home Phone [...] | Organization | [facility] [...] Team Providers + +------+ + | Care Port Patrol Officer Name | Role | Phone | + +------+ + PCP | Unavailable | + +------+ + Encounter Details +--------+ + + + + | Date | Type | Department | Care Team | Description | +--------+ + + + + | 03/23/ | Documentati | [facility] [place] | Uche Orozco | | | 2013 | on | NEPHROLOGY [address] | M, DO [address] | | | | | [address] | [place], [place] [address] | | | | | [place] | [place] | | | | | [address] | [address] | | | | | [phone] | | | +--------+ + + + [...] + + + | Blood Pressure | 149/87 | 03/23/2014 4:14 PM | | | | | PDT | | + + + + + | Pulse | - | - | | + + + + + | Temperature | 36.2 C (97.2 F) | 03/23/2014 4:14 PM | | | | | PDT [...] this encounter Progress Notes Dedra Camara - 05/07/2014 1:18 PM PDTHemodialysis progress note e-faxed to Frances starks MD, manually faxed to [facility] [place] on 05/07/14. che Orozco DO - 05/05/2014 4:10 PM PDTForma tting of this note might be different from the original. Subjective: [facility] DIALYSIS NOTE Patient ID: CELSO CARO is a 54 y.o. male. HPI Comments: Monthly dialysis visit for this 54 YO male with ESRD secondar y to diabetic nephropathy, who is seen on outpatient HD at the [facility]. He also has T2DM, requiring insulin, anemia secondary to CKD, hyperlipidemia, Hepatitis C, m orbid obesity and a question of a right renal mass on prior US. He is seen on HD at [facility] with QB 400. 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 He denies chest pain, anorexia or fatigue. Outpatient Prescriptions Marked as Taking for the 03/23/14 encounter (Documentation) with Shaji Orozco DO Medication Sig Dispense Refill aspirin 81 mg EC tablet Take 81 mg by mouth Daily. atorvaSTATin (LIPITOR) 20 mg tablet Take 1 tablet by mouth Daily. 30 tablet 5 B Fqfshns-H-Kbyzr Acid (OLEG-TEQUILA RX) 1 MG TABS Take [...] Diarrhea Review of Systems Objective: Blood pressure 149/87, temperature 36.2 C (97.2 F). EDW 119 kg Physical Exam Heart: Regular rate and rhythm with no S3, S4, murmur or rub. Lungs: CTA bilaterally. No rales or wheezes. Abdomen: Soft, flat, nontender, normoactive bowel sounds. Extremities: No clubbing, cyanosis, or edema. (+) well-developed AVF, left arm with QB = 4 00. LAB: BUN 62, Cr 9.93, K+ 4.4, HCO3 18, Ca++ 8.5, PO4 5.0, PTH 426, Alb 3.7, Hb 10.7, eKT/V = 1.23. Assessment: 1. ESRD--he appears well dialyzed by the most recent KT/V. 2. Hypertension--good control at current dry weight. 3. Anemia--His Hb appears stable on the current EPO anemia algorithm. 4. SHPTH--PTH is not normalizing on high dose Hectorol. Need to consider whether additio n of Sensipar to regimen will be helpful. 5. Nutrition--his serum albumin is trending upward this month. 6. Type 2 DM--he relates verbally that his glycemic control is good, but need to recheck t he Hbaic next month. 7. Hepatitis C--stable. 8. Hyperlipidemia--will recheck the lipid profile quarterly. 9. Transplantation--he has not thought a great deal about this, but he is interested in ex ploring it further. 10. Right renal mass, MRI, 10/2012--suspicious for complex, "proteinaceous cysts, " on MRI at that time. Plan: 1. Will recheck his PTH, iron profile and Hbaic next month. 2. His ECF volume appears stable at his current dry weight. 3. At some point, he will need repeat imaging of the prior lesion in his kidneys. He magy es and hematuria or any symptoms at this time. CC: [facility] documented in thi s encounter Plan of Treatment Not on filedocumented as of this encounter Visit Diagnoses Not on filedocumented in this encounter
--- OUTSIDE RECORDS SUMMARY | ~2020-03-04 | XMS | Encounter Summary ---
Demographics + + + | Address | [address] | | | [place] [address] | + + + | Home Phone [...] Organization | [facility] [...] Providers + +------+ + | Care Senior Accounting Associate Name | Role | Phone | + [...] [address] | [address], [place] | | | | | [place] | [address] [place] | | | | | [address] | [address] | | | | | [phone] | | | +--------+ + + + [...] | + +--------+ + + + | [facility] | Routin | 10/04/2012 | | Results [...] + | [facility] | [address] | [place] | [phone] | | [facility] | | [address] | | | - LABORATORY | | | | + + + + + | [facility] | [address] | [place] | | | [facility] | | [address] [place] [address] | | | - LABORATORY | | [...] ST. | [address] | [place], [place] | [phone] | | [facility] | | [address] | | | - LABORATORY | | | | + + + + + | [facility] | | | | | [facility] | | | | | - LABORATORY [...] + | [facility] | [address] | [place] | [phone] | | [facility] | | [address] | | | - LABORATORY | | | | + + + + + | [facility] | | | | | [facility] | | | | | - LABORATORY [...] [address] | [place] | [phone] | | [facility] | | [address] | | | - LABORATORY | | | | + + + + + | [facility] | | | | | [facility] | | | | | - LABORATORY [...] [address] | [place] | [phone] | | [facility] | | [address] | | | - LABORATORY | | | | + + + + + | [facility] | | | | | [facility] | | | | | - LABORATORY [...] [address] | [place] | [phone] | | [facility] | | [address] | | | - LABORATORY | | | | + + + + + | [facility] | | | | | [facility] | | | | | - LABORATORY | | | | + + + + + documented in this encounter Visit Diagnoses Not on filedocumented in this encounter"
--- OUTSIDE RECORDS SUMMARY | ~2020-03-04 | XMS | Encounter Summary ---
Demographics + + + | Address | [address] | | | [place] [address] | + + + | Home Phone [...] Organization | [facility] | | [...] Providers + +------+ + | Care Social Science Manager Name | Role | Phone | [...] + + | 09/02/ | Office | [facility] | Artem Angelo | Chronic kidney | | 2012 | Visit | SURGERY [address] | MD [place], FACS [address] | disease (CKD), stage | | | | ST [place], [place] | [facility] | V (HCC) (Primary | | | | [address] | [place] [address] | Dx); Type II or | | | | [phone] | [phone] | unspecified type | | | | [...] by mouth Daily. 30 tablet 5 B Kjkpfez-Q-Uwamg Acid (YOVANY-TEQUILA RX) 1 MG TABS Take [...] for consideration of left cephalic vein translocation. Artme Angelo MD, FACS documented in this encounter Plan of Treatment Not on filedocumented as of this encounter Visit Diagnoses + + | Diagnosis | + + | Chronic kidney disease (CKD), stage V ([facility]) - Primary Chronic kidney disease, Stage V | + + | Type II or unspecified type diabetes mellitus with renal manifestations, | | uncontrolled(250.42) ([facility]) Type II or unspecified type diabetes mellitus with renal | | manifestations, uncontrolled | + + documented in this encounter
--- OUTSIDE RECORDS SUMMARY | ~2020-03-04 | XMS | Encounter Summary ---
Demographics + + + | Address | [address] | | | [place] [address] | + + + | Home Phone [...] Organization | [facility] | [...] Team Providers + +------+ + | Care Drafting Instructor Name | Role | Phone | [...] [facility]) | [place] | [address] [place] | | | | | Procedures | [address] | [place] | | | | | [place] OFFICE | Phone: | [address] Phone: | | | | | OUTPATIENT | [phone] | [phone] | | | | | VISIT 25 | Fax: | Fax: | | | | | MINUTES | [phone] | [phone] | +--------+--------+ + + + + Encounter [...] | [address] | [place], [place] [address] | (Primary Dx); Type | | | | [place], [place] | [place] | II or unspecified | | | | [address] | [address] | type diabetes | | | | [phone] | | mellitus with renal | | [...] DO - 10/31/2014 2:26 PM PST Subjective: [facility] DIALYSIS NOTE Patient ID: Celso [...] dialysis on the MWF shift at the [facility] [place]. He is generally in good spirits. Outpatient Prescriptions Marked as Taking for the 09/28/14 encounter (Off-Site Visit) with Uche Orozco DO Medication Sig Dispense Refill aspirin 81 mg EC tablet Take 81 mg by mouth Daily. atorvaSTATin (LIPITOR) 20 mg tablet Take 1 tablet by mouth Daily. 30 tablet 5 B Phiwqea-M-Eihvv Acid (OLEG-TEQUILA RX) 1 MG TABS Take [...] recheck him in 2 royal mario CC: [facility] documented in thi s [...]
--- OUTSIDE RECORDS SUMMARY | ~2020-03-04 | XMS | Encounter Summary ---
Demographics + + + | Address | [address] | | | [place] [address] | + + + | Home Phone | | + + + | Preferred Language | Unknown | + + + | Marital Status | | + + + | Spiritism Affiliation | 1041 | + + + | Race | Unknown | + + + | Ethnic Group | Unknown | + + + Author + + + | Author | [facility] | | | and [place] | + + + | Organization | [facility] | | | and [...] Team Providers + +------+ + | Care Welcome Wagon Hostess Name | Role | Phone | + [...] [address] | [address], [place] | disease with chronic | | | | [place], [place] | [address] [place] | kidney disease | | | | [address] | [address] | stage I through | | | | [phone] | | stage IV, or | | [...] for nephrology appt on 11/21/12 faxed to [facility]. 4: 29 PM PSTdocumented in this encounter [...]
--- OUTSIDE RECORDS SUMMARY | ~2020-03-04 | XMS | Encounter Summary ---
Demographics + + + | Address | [address] | | | [place] [address] | + + + | Home Phone | | + + + | Preferred Language | Unknown | + + + | Marital Status | Single | + + + | Adventist Affiliation | Unknown | + + + | Race | or | + + + | Ethnic Group | Not or | + + + Author + + + | Author | [facility] | + + + | Organization | [facility] | + + + | [...] Team Providers + +------+ + | Care Water Softener Servicer Name | Role | Phone | + +------+ + | Frances Obrien MD | PCP | | + +------+ + Reason for Visit + + + | Reason | Comments | + + + | Pre Transplant | Care Everywhere update | | Workup | | + + + Encounter Details +--------+ + + + + | Date | Type | Department | Care Team | Description | +--------+ + + + + | 05/22/ | Abstract | Clinical | Colleen Amaro, | Pre Transplant | | 2013 | | Transplant Services | RN [address] | Workup (Care | | | | [address] | [address] | Everywhere update) | | | | [place], | [place], [place] | | | | | [place] [address] | [id number] | | | | | [phone] | | | +--------+ + + + [...]
--- OUTSIDE RECORDS SUMMARY | ~2020-03-04 | XMS | Clinical Summary ---
Demographics + + + | Address | [address] | | | [place] [address] | + + + | Home Phone | | + + + | Preferred Language | Unknown | + + + | Marital Status | Single | + + + | Pentecostalism Affiliation | Unknown | + + + [...] Team Providers + +------+ + | Care Gas Flow Regulator Name | Role | Phone | + +------+ + | No Pcp Per Patient | PCP | Unavailable | + +------+ + Source Comments [facility] is fully live on both [facility] and [facility] Allergies Not on File Medications Not on [...] | | al/Fam | | 1960 | [phone] | [place] [address] | | | brisa | | | 2 (Home) | | + +--------+ +--------+ + +"
--- OUTSIDE RECORDS SUMMARY | ~2020-03-04 | XMS | Encounter Summary ---
Demographics + + + | Address | [address] | | | [place] [address] | + + + | Home Phone [...] + | Organization | [facility] | | [...] Team Providers + +------+ + | Care Helper Marble Finisher Name | Role | Phone | [...] | [address] | [place] | | | | | [place] | [place] | | | | | [address] | [address] | | | | | [phone] | | | +--------+ + + + [...]
--- OUTSIDE RECORDS SUMMARY | ~2020-03-04 | XMS | Encounter Summary ---
Demographics + + + | Address | [address] | | | [place] [address] | + + + | Home Phone [...] | [facility] Krishnamurthy | [...] Team Providers + +------+ + | [employer] Name | Role | Phone | + [...] | | | | left midfoot | [place], Jose Ramon | | | | | | associated | [address] [place] | | | | | | with type 2 | [place] | | | | | | diabetes | [id number] | | | | | | mellitus, | Phone: | | | | | | limited to | [phone] | | | | | | breakdown of | Fax: | | | | | | skin ([facility]) | [phone] | | | | | | Gangrene of | | | | | | | left foot | | | | | | | ([facility]) | | | +--------+ + + + [...] + + | 09/05/ | Hospital | [facility] | Bryant Mares MD | Cellulitis, | | 2018 - | Encounter | MED [facility] | [address] | unspecified | | | | [address] [place] | [place] | cellulitis site | | 09/11/ | | [place] [address] | [phone] | (Primary Dx); Anemia | | 2018 | | [phone] | | in ESRD (end-stage | | | | | [place], | renal disease) | | | | | MD Nabeel [address] | ([facility]); Cellulitis of | | | | | [address] [place] | left lower | | | | | [place] [address] | extremity; End stage | | | | | [phone] | renal disease | | | | | | ([facility]); Type II or | | | | | Uche Sánchez M, | unspecified type | | | | | DO [address] | diabetes mellitus | | | | | [place], [place] [address] | with renal | | | | | [place] | manifestations, not | | | | | [address] | stated as | | | | | | uncontrolled(250.40) | | | | | | ([facility]); Diabetic | | | | | | ulcer of left | | | | | | midfoot associated | | | | | | with type 2 diabetes | | | | | | mellitus, limited | | | | | | to breakdown of skin | | | | | | ([facility]); Gangrene of | | | | | | left foot ([facility]); | | | | | | Diabetes mellitus, | | | | | | type II, insulin | | | | | | dependent ([facility]); | | | | | | Typical atrial | | | | | | flutter ([facility]); Heart | | | | | | murmur; | | | | | | Osteomyelitis of | | | | | | ankle or foot, | | | | | | acute, left ([facility]) | +--------+ + + + + Social [...] Uche Sánchez DO - 09/15/2018 11:22 AM [facility] C ENTER [address] [place] [id number] DISCHARGE SUMMARY UCHE Pena ERNESTO MARTINEZ Patient: ISIDRA RINCON Admitting: NABEEL VIVAS MR #: [id number] LOC: PT TYPE: Adm Date: 09/05/2018 : [...] diabetic glomerulosclerosis, on outpatient dialysis MW, at [place], [place]. 5. Hypertension - good control. 6. [...] nown to the nephrology service from the [facility] in [place], [place]. He has been outpatient dialysis there for some time. Approximately 6 days prior to admissi on, he developed increasing tenderness, swelling and then this evolved into fever and chills to 102. He was given a trial of outpatient antibiotics at [facility] and on the da y of admission, [...] of IV antibiotics via his PICC line. [place] was consulted a s well as [facility] for him to get Vancomycin 1 gram [...] gram IV every Sunday and Sunday, via [place], through 10/18/2018. 2. Ampicillin sulbactam 3 grams IV piggyback daily, through 10/18/2018 via [facility]. 3. Apixaban 2.5 mg b.i.d. 4. Nephro-Tressa [...] will see him in followup at the [facility], [place], [place], in 1 week. [facility] Denise Comer in 2-1/2 weeks to follow up on his atrial flutter. 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 I discussed that he does need to [...] of his primary care through the [facility]. UCHE SÁNCHEZ DO Dictated by UCHE SÁNCHEZ DO 09/15/2018 11:22:28 Transcribed on 09/15/2018 15:59:51 by in job# [id number] Confirmation #: [id number] cc: FRANCESCO CALLOWAY DO ARABELLA RAYOM NANCY COMER MD [facility], [place]. documented in thi s encounter Discharge [...] + + +---------+ + + | B Xsrzhqe-P-Vwlce | Take 1 mg by mouth | [...] | | | g) 3 gIndications: | [place]. Indications: | | | | | | [...] Name, strength, and directions X Doctor's office: [facility] Dr. Ernesto Sherman X Pharmacy list names: [facility] X [employer] insurance reported information X [...] Other: Insulin managed by SAMARA Donaldson at [facility] Patient recently had a Ceftriaxone 1 gm injection administered at [facility] on 09/03/18 Medication: Prior to Admission Sig: Patient taking differently HEMOTHERAPIST as: Cinacalcet 60 mg tab 1 tab by mouth daily Not taking patient states this was discontinued. However, no records indicate this was discontinued Sucroferric oxhydroxide 500 mg chew tab 1 tab by mouth four times daily (before meals and n ightly) Patient not taking patient states this was discontinued. However, This is still an active order per [facility]. Furosemide 80 mg tab 1 tab by mouth daily 1 tab by mouth four times per week. Patient feels it is a waste to take on days he goes to dialysis. (Sunday, Sunday and ). Best possible HEMOTHERAPIST medication list after pharmacy review: PT REPORTED TAKING NOT TAKING Medication Sig Last Dose Dispense Doc. Provider aspirin 81 mg EC tablet Take 81 mg by mouth Daily. Taking Historical ProviderMD ArianKdhrlzo-E-Odvhr Acid (OLEG-TRESSA RX) 1 MG TABS Take [...] performed and electronically signed by Shannan Arguello, Steam Roller Operator 2017 9:29 Patrick Jack PharmD, KEYSHA 09/11/2018 10:30Electronically signed by Patrick Jack PharmD at 1 11/12/2017 10:30 AM Uche Guallpa DO - 09/10/2018 9:53 PM PSTFormatting of this no te might be different from the original. [facility] [address] [place] [address] PROGRESS NOTE Pt. Name/Age/: Isidra Hernandez Case 58 y.o. 1960 Med. Record Number: [id number] Date of admission: 09/05/2018 NEPHROLOGY HPI - [...] cleared with HD and PTT rech ecked. [facility] izzy Magaña PharmD - 09/10/2018 1:21 [...] Value Units Date/Time Culture, Wound, Smear, w/Anaerobe [[id number]] Collected: 09/07/181123 Order Status: Sent Lab Status: In process Updated: 09/09/18 1052 Specimen: Tissue from Toe, Second, Left Narrative: The following orders were created for panel order Culture, Wound, Smear, w/Anaerobe. Procedure Abnormality Status --------- ------ Culture, Wound, Smear[[id number]] Final result Culture, Anaerobic[[id number]] Normal Preliminary result Please view results for these tests on the individual orders. Culture, Wound, Smear [[id number]] (Susceptibility) Collected: 09/07/181123 Order Status: Completed Lab [...] be used alone for chemotherapy. Culture, Anaerobic [[id number]] (Normal) Collected: 09/07/181123 Order Status: Completed Lab Status: Preliminary result Updated: 09/10/18 1321 Specimen: Tissue from Toe, Second, Left Culture No anaerobes isolated to date. Culture, Wound, Smear, w/Anaerobe [[id number]] Collected: 09/07/18 0920 Order Status: Sent Lab Status: In process Updated: 09/09/18 1050 Specimen: Tissue from Foot, Plantar, Left Narrative: The following orders were created for panel order Culture, Wound, Smear, w/Anaerobe. Procedure Abnormality Status --------- ------ Culture, Wound, Smear[[id number]] Final result Culture, Anaerobic[[id number]] In process Please view results for these tests on the individual orders. Culture, Wound, Smear [[id number]] (Susceptibility) Collected: 09/07/18919 Order Status: Completed Lab [...] be used alone for chemotherapy. Culture, Anaerobic [[id number]] Collected: 09/07/18919 Order Status: Resulted Lab Status: In process Updated: 09/07/18 09 Specimen: Tissue from Foot, Plantar, Left Culture, Blood [[id number]] (Normal) Collected: 09/07/18518 Order Status: Completed Lab Status: Preliminary result Updated: 09/10/18 05 Specimen: Blood from Peripheral Blood Culture No growth: Monitored continually by instrument for 5 days Culture, Blood [[id number]] (Normal) Collected: 09/07/1815 Order Status: Completed Lab Status: Preliminary result Updated: 09/10/18 05 Specimen: Blood from Peripheral Blood Culture No growth: Monitored continually by instrument for 5 days Culture, Blood [[id number]] (Normal) Collected: 09/05/18 1806 Order Status: Completed Lab Status: Preliminary result Updated: 09/08/181810 Specimen: Blood from Peripheral Blood Culture No growth: Monitored continually by instrument for 5 days Culture, Blood [[id number]] (Abnormal) (Susceptibility) Collected: 09/05/18 1725 Order Status: [...] chemotherapy. Blood Culture GP Pathogen Panel, PCR [[id number]] (Abnormal) Collected: 09/05/18 9131 Order Status: Completed Lab Status: Final result Updated: 09/08/18 8411 Specimen: Blood from Peripheral Blood Staphylococcus species, [...] Comer's input on his Cookie Bowerstter management. [facility] Bel Ramirez, PharmD - 09/09/2018 9:26 [...] with urinary obstruction; Diabetes mellitus, type 2 ([facility]) (1999); Diabetic foot ulcer ([facility]) (01/01/12); ESRD (end stag e renal disease) on dialysis ([facility]) (1999); Heart murmur; Hepatitis C (2006); Hyperlipidemia; [...] Value Units Date/Time Culture, Wound, Smear, w/Anaerobe [[id number]] Collected: 09/07/18 112 Order Status: Sent Lab Status: In process Updated: 09/07/181124 Specimen: Tissue from Toe, Second, Left Narrative: The following orders were created for panel order Culture, Wound, Smear, w/Anaerobe. Procedure Abnormality Status --------- ------ Culture, Wound, Smear[[id number]] Preliminary result Culture, Anaerobic[[id number]] In process Please view results for these tests on the individual orders. Culture, Wound, Smear [[id number]] (Susceptibility) Collected: 09/07/181123 Order Status: Completed Lab [...] be used alone for chemotherapy. Culture, Anaerobic [[id number]] Collected: 09/07/181123 Order Status: Resulted Lab Status: In process Updated: 09/07/181124 Specimen: Tissue from Toe, Second, Left Culture, Wound, Smear, w/Anaerobe [[id number]] Collected: 09/07/18919 Order Status: Sent Lab Status: In process Updated: 09/07/18 09 Specimen: Tissue from Foot, Plantar, Left Narrative: The following orders were created for panel order Culture, Wound, Smear, w/Anaerobe. Procedure Abnormality Status --------- ------ Culture, Wound, Smear[[id number]] Preliminary result Culture, Anaerobic[[id number]] In process Please view results for these tests on the individual orders. Culture, Wound, Smear [[id number]] (Susceptibility) Collected: 09/07/18919 Order Status: Completed Lab [...] be used alone for chemotherapy. Culture, Anaerobic [[id number]] Collected: 09/07/18919 Order Status: Resulted Lab Status: In process Updated: 09/07/18933 Specimen: Tissue from Foot, Plantar, Left Culture, Blood [[id number]] (Normal) Collected: 09/07/18518 Order Status: Completed Lab Status: Preliminary result Updated: 09/07/181740 Specimen: Blood from Peripheral Blood Culture No growth: Monitored continually by instrument for 5 days Culture, Blood [[id number]] (Normal) Collected: 09/07/18 0515 Order Status: Completed Lab Status: Preliminary result Updated: 09/07/181740 Specimen: Blood from Peripheral Blood Culture No growth: Monitored continually by instrument for 5 days Culture, Blood [[id number]] (Normal) Collected: 09/05/18 180 Order Status: Completed Lab Status: Preliminary result Updated: 09/08/181810 Specimen: Blood from Peripheral Blood Culture No growth: Monitored continually by instrument for 5 days Culture, Blood [[id number]] (Abnormal) (Susceptibility) Collected: 09/05/18 1725 Order Status: [...] chemotherapy. Blood Culture GP Pathogen Panel, PCR [[id number]] (Abnormal) Collected: 09/05/18 4002 Order Status: Completed Lab Status: Final result Updated: 09/08/18 4128 Specimen: Blood from Peripheral Blood Staphylococcus species, [...] might be different from the origi nal. [facility] [address] [place] [address] PROGRESS NOTE Pt. Name/Age/: Isidra Rincon 58 y.o. 1960 Med. Record Number: [id number] Date of admission: 09/05/2018 NEPHROLOGY HPI - [...] minimal heparin. 4. Pt placed on tele. [facility] rabella Schuster D PM - 09/08/2018 9:23 AM PST Foot & Ankle Surgery Progress Note Arabella Schuster DPM Isidra Hernandez Case Age/Gender 58 y.o. male Location [facility] Attending No att. providers [...] Value Units Date/Time Culture, Wound, Smear, w/Anaerobe [[id number]] Collected: 09/07/181123 Order Status: Sent Lab Status: In process Updated: 09/07/181124 Specimen: Tissue from Toe, Second, Left Narrative: The following orders were created for panel order Culture, Wound, Smear, w/Anaerobe. Procedure Abnormality Status --------- ------ Culture, Wound, Smear[[id number]] Preliminary result Culture, Anaerobic[[id number]] In process Please view results for these tests on the individual orders. Culture, Wound, Smear [[id number]] Collected: 09/07/181123 Order Status: Completed Lab Status: Preliminary result Updated: 09/08/18 0825 Specimen: Tissue from Toe, Second, Left Culture 3+ Staphylococcus aureus Comment: Presumptive identification Identification and susceptibility to follow. Gram Stain Result 1+ White Blood Cells No organisms seen Culture, Anaerobic [[id number]] Collected: 09/07/181123 Order Status: Resulted Lab Status: [...] with urinary obstruction; Diabetes mellitus, type 2 ([facility]) (1999); Diabetic foot ulcer ([facility]) (01/01/12); ESRD (end stag e renal disease) on dialysis ([facility]) (1999); Heart murmur; Hepatitis C (2006); Hyperlipidemia; [...] Value Units Date/Time Culture, Wound, Smear, w/Anaerobe [[id number]] Collected: 09/07/181123 Order Status: Sent Lab Status: In process Updated: 09/07/181124 Specimen: Tissue from Toe, Second, Left Narrative: The following orders were created for panel order Culture, Wound, Smear, w/Anaerobe. Procedure Abnormality Status --------- ------ Culture, Wound, Smear[[id number]] Preliminary result Culture, Anaerobic[[id number]] In process Please view results for these tests on the individual orders. Culture, Wound, Smear [[id number]] Collected: 09/07/181123 Order Status: Completed Lab Status: Preliminary result Updated: 09/08/18824 Specimen: Tissue from Toe, Second, Left Culture 3+ Staphylococcus aureus Comment: Presumptive identification Identification and susceptibility to follow. Gram Stain Result 1+ White Blood Cells No organisms seen Culture, Anaerobic [[id number]] Collected: 09/07/181123 Order Status: Resulted Lab Status: In process Updated: 09/07/181124 Specimen: Tissue from Toe, Second, Left Culture, Wound, Smear, w/Anaerobe [[id number]] Collected: 09/07/18 09 Order Status: Sent Lab Status: In process Updated: 09/07/18 09 Specimen: Tissue from Foot, Plantar, Left Narrative: The following orders were created for panel order Culture, Wound, Smear, w/Anaerobe. Procedure Abnormality Status --------- ------ Culture, Wound, Smear[[id number]] Preliminary result Culture, Anaerobic[[id number]] In process Please view results for these tests on the individual orders. Culture, Wound, Smear [[id number]] Collected: 09/07/18 0920 Order Status: Completed Lab Status: Preliminary result Updated: 09/07/18 144 Specimen: Tissue from Foot, Plantar, Left Gram Stain Result 3+ White Blood Cells No organisms seen Culture, Anaerobic [[id number]] Collected: 09/07/18 0920 Order Status: Resulted Lab Status: In process Updated: 09/07/18 0934 Specimen: Tissue from Foot, Plantar, Left Culture, Blood [[id number]] (Normal) Collected: 09/07/18 0519 Order Status: Completed Lab Status: Preliminary result Updated: 09/07/18 174 Specimen: Blood from Peripheral Blood Culture No growth: Monitored continually by instrument for 5 days Culture, Blood [[id number]] (Normal) Collected: 09/07/18 0515 Order Status: Completed Lab Status: Preliminary result Updated: 09/07/181740 Specimen: Blood from Peripheral Blood Culture No growth: Monitored continually by instrument for 5 days Culture, Blood [[id number]] (Normal) Collected: 09/05/18 180 Order Status: Completed Lab Status: Preliminary result Updated: 09/06/18 06 Specimen: Blood from Peripheral Blood Culture No growth: Monitored continually by instrument for 5 days Culture, Blood [[id number]] (Abnormal) Collected: 09/05/181724 Order Status: Completed Lab [...] report. Blood Culture GP Pathogen Panel, PCR [[id number]] (Abnormal) Collected: 09/05/181724 Order Status: Completed Lab [...] Guallpa DO - 09/07/2018 10:22 AM PST [facility] [address] [place] [id number] PROGRESS NOTE Pt. Name/Age/: Isidra Rincon 58 y.o. 1960 [facility]. Record Number: [id number] Date of admission: 09/05/2018 NEPHROLOGY HPI - [...] Inpt. ( These are followed monthly at [facility], in a [facility] 4. HTN--stable. 5. Type 2 DM, requiring [...] to optimize Hb and anemia, as above. [facility] Patrick Gonzalez, Ph armD - 09/07/2018 [...] with urinary obstruction; Diabetes mellitus, type 2 ([facility]) (1999); Diabetic foot ulcer ([facility]) (01/01/12); ESRD (end stag e renal disease) on dialysis ([facility]) (1999); Heart murmur; Hepatitis C (2006); Hyperlipidemia; [...] Procedure Component Value Units Date/Time Culture, Blood [[id number]] Collected: 09/07/18518 Order Status: Sent Lab Status: In process Updated: 09/07/18537 Specimen: Blood from Peripheral Blood Culture, Blood [[id number]] Collected: 09/07/18 0515 Order Status: Sent Lab Status: In process Updated: 09/07/18 0539 Specimen: Blood from Peripheral Blood Culture, Blood [[id number]] (Normal) Collected: 09/05/18 1806 Order Status: Completed Lab Status: Preliminary result Updated: 09/06/18 0611 Specimen: Blood from Peripheral Blood Culture No growth: Monitored continually by instrument for 5 days Culture, Blood [[id number]] (Abnormal) Collected: 09/05/18 1725 Order Status: Completed [...] Cool MD - 09/06/2018 7:29 PM PST [facility]G Hospitalist Progress Note Isidra Hernandez Case [...] Continue vancomycin/Zosyn - Discussed with Dr. Cervantes professional skater for orthopedics, recommended discussing with Dr. Schuster [...] as outlined above. Kike Kuo 09/06/2018 19:29 [facility] Bel Ramirez PharmD - 09/06/2018 8:02 AM [...] with urinary obstruction; Diabetes mellitus, type 2 ([facility]) (1999); Diabetic foot ulcer ([facility]) (01/01/12); ESRD (end stag e renal disease) on dialysis ([facility]) (1999); Heart murmur; Hepatitis C (2006); Hyperlipidemia; [...] Procedure Component Value Units Date/Time Culture, Blood [[id number]] (Normal) Collected: 09/05/18 180 Order Status: Completed Lab Status: Preliminary result Updated: 09/06/18 0611 Specimen: Blood from Peripheral Blood Culture No growth: Monitored continually by instrument for 5 days Culture, Blood [[id number]] (Normal) Collected: 09/05/18 1725 Order Status: Completed [...] type 2 ([facility]) (1999); Diabetic foot ulcer ([facility]) (01/01/12); ESRD (end stag e renal disease) on dialysis ([facility]) (1999); Heart murmur; Hepatitis C (2006); Hyperlipidemia; [...] Procedure Component Value Units Date/Time Culture, Blood [[id number]] Collected: 09/05/181724 Order Status: Sent Lab Status: In process Updated: 09/05/181731 Specimen: Blood from Peripheral Blood Culture, Blood [[id number]] Order Status: Sent Lab Status: No result [...] + + +--------+ + + | * [facility] | Outpatient | STAT | Diabetic [...] skin | | | | | | ([facility]) Gangrene of | | | | | | left foot ([facility]) | | + + +--------+ + + [...] St | [place] | [phone] | | [facility] | | [address] | | | - LABORATORY | | [...] mL/min/1.73m2 | [facility] | | | [place] | | | MEDICAL | | | [...] St | [place] | [phone] | | [facility] | | [address] | | | - LABORATORY | | [...] + | [facility] | [address] | [place] | [phone] | | [facility] | | [address] | | | - LABORATORY | | [...] St | [place] | [phone] | | [facility] | | [address] | | | - LABORATORY | | [...] + | [facility] | [address] | [place], [place] | [phone] | | [facility] | | [address] | | | - LABORATORY | | [...] ST. | 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 Age | | | 58 year(s) Interpreting | | | DENISE COMER MD | | | Fish Straightener ERNESTO Pena Gender | | | Male 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 | | | [employer] Procedure Type of Study TTE procedure: | [...] Diastolic: | | | 1.28 cm EF Hzcgdcbid41% EF Calculated: 45% Miscellaneous Aorta | | [...] Diastolic: 1.28 cm | | | EF Odyictjqw77% | | | EF Calculated: 45% | | | | | | Miscellaneous | | | | | | Aorta | | | | | | Aortic Root: 3.73 cm | | | Ascending Aorta: 3.48 cm | | | | | + + -+ + + | Procedure Note | + + | Kana, Rad Results In - 09/10/2018 3:04 PM [facility] Transthoracic Echocardiography Report | | (TTE) Demographics Patient Name SERGEY HERNANDEZ Room Number 436 Patient | | Number [id number] Date of Study 09/10/2018 Visit Number [id number] | | Referring Physician ERNESTO Pena Number Date | | of 1960 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 | | | [place] | | | MEDICAL | | | [...] St | [place] | [phone] | | [facility] | | [address] | | | - LABORATORY | | [...] St | [place] | [phone] | | [facility] | | [address] | | | - LABORATORY | | [...] [address] | [place] | [phone] | | [facility] | | [address] | | | - LABORATORY | | [...] [address] | [place] | [phone] | | [facility] | | [address] | | | - LABORATORY | | [...] St | [place] | [phone] | | [facility] | | [address] | | | - LABORATORY | | [...] St | [place] | [phone] | | [facility] | | [address] | | | - LABORATORY | | [...] | | | POC | | | [facility] | | | | | | [...] + | [facility] | [address] | [place] | [phone] | | [facility] | | [address] | | | - LABORATORY | | [...] | nRBC | | K/uL | [facility] | | | | | | MEDICAL | | | | | | CENTER - | | | | | | LABORATORY | | + + + + + + + + | Specimen | + + | Blood | + + + + + + + | Performing | Address | City/State/[facility] | Phone Number | | Organization | | | | + + + + + | [facility] | [address] | [place] | [phone] | | [facility] | | [address] | | | - LABORATORY | | [...] mL/min/1.73m2 | [facility] | | | ER[place]REAN | | | MEDICAL | | | [...] St | [place] | [phone] | | [facility] | | [address] | | | - LABORATORY | | [...] St | [place] | [phone] | | [facility] | | [address] | | | - LABORATORY | | [...] ST. | [address] | [place], [place] | [phone] | | [facility] | | [address] | | | - LABORATORY | | [...] | | | | ELEANOR JEONG MD ([id number]) | | | | | | on [...] [address] | [place] | [phone] | | [facility] | | [address] | | | [...] | third generation TSH | uIU/mL | [facility] | | | | test. | | [...] + | [facility] | [address] | [place] | [phone] | | [facility] | | [address] | | | - LABORATORY | | [...] + | [facility] | [address] | [place] | [phone] | | [facility] | | [address] | | | - LABORATORY | | [...] St | [place] | [phone] | | [facility] | | [address] | | | - LABORATORY | | [...] ST. | [address] | [place], [place] | | | [facility] | | [address] | | | - BLOOD BANK | [...] [address] | [place] | [phone] | | [facility] | | [address] | | | - LABORATORY | | [...] mL/min/1.73m2 | [facility] | | | [place] | | | MEDICAL | | | [...] St | [place] | [phone] | | [facility] | | [address] | | | - LABORATORY | | [...] + + | Performing | Address | City/State/[facility] | Phone Number | | Organization | | | | + + + + + | [facility] | [address] | [place] | [phone] | | [facility] | | [address] | | | - LABORATORY | | [...] + | [facility] | [address] | [place] | [phone] | | [facility] | | [address] | | | - LABORATORY | | [...] St | [place] | [phone] | | [facility] | | [address] | | | - LABORATORY | | [...] | | POC | | | [facility] | | | | [...] [address] | [place] | [phone] | | [facility] | | [address] | | | - LABORATORY | | [...] + | [facility] | [address] | [place] | [phone] | | [facility] | | [address] | | | - LABORATORY | | [...] | | | | aureus,Methicillin | | [facility] | | | | resistant (MRSA)Comment: | [...] St | [place] | [phone] | | [facility] | | [address] | | | - LABORATORY | | [address] | [place] | [phone] | | [facility] | | [address] | | | - LABORATORY | | [...] + | [facility] | [address] | [place] | [phone] | | [facility] | | [address] | | | - LABORATORY | | [...] + | [facility] | [address] | [place] | [phone] | | [facility] | | [address] | | | - LABORATORY | | [...] St | [place] | [phone] | | [facility] | | [address] | | | - LABORATORY | | [...] St | [place] | [phone] | | [facility] | | [address] | | | - LABORATORY | | [address] | [place] | [phone] | | [facility] | | [address] | | | - LABORATORY | | [...] St | [place] | [phone] | | [facility] | | [address] | | | - LABORATORY | | [...] St | [place] | [phone] | | [facility] | | [address] | | | - LABORATORY | | [...] mL/min/1.73m2 | [facility] | | | [place] | | | MEDICAL | | | [...] + | [facility] | [address] | [place] | [phone] | | [facility] | | [address] | | | - LABORATORY | | [...] St | [place] | [phone] | | [facility] | | [address] | | | - LABORATORY | | [...] ST. | [address] | [place] | [phone] | | [facility] | | [address] | | | - LABORATORY | | | | + + + + + Surgical Pathology Exam (09/07/2018 12:00 AM [facility]) + + | Specimen | + + | | + + + + + | Narrative | Performed At | + + + | SPECIMEN(S): A LEFT 2ND AND 3RD TOES SPECIMEN SOURCE: A. LEFT | IN PATHOLOGY | | 2ND AND 3RD TOES CLINICAL HISTORY: Infection left foot. FINAL | INCYTE | | PATHOLOGIC DIAGNOSIS: Left 2nd and 3rd toes, excision: - | | | Necrotizing suppurative soft tissue inflammation with extension to | | | underlying bone, consistent with clinical history of diabetic foot | | | infection and osteomyelitis. CLR:[facility]:C2NR MICROSCOPIC | | | EXAMINATION: Histologic sections [...] LABORATORY: The technical component was performed by [employer] | | | [employer], [address] [place] [id number] ([employer]: | | | Val Gomez MD; CLIA# [id number]). Professional interpretation was | | | performed by LIA, [facility] | | | Branch, [address] [facility], [place], [place] [address] ([employer]: | | | Raciel Cho M.D.; [facility]#: [id number]). | | | Diagnostician: Raciel Cho MD [...] + | [facility] | [address] | [place] | [phone] | | [facility] | | [address] | | | - LABORATORY | | [address] | [place] | [phone] | | [facility] | | [address] | | | - LABORATORY | | [...] ST. | [address] | [place] | [phone] | | [facility] | | [address] | | | - LABORATORY | | [...] St | [place] | [phone] | | [facility] | | [address] | | | - LABORATORY | | [...] + | [facility] | [address] | [place] | [phone] | | [facility] | | [address] | | | - LABORATORY | | [...] St | [place] | [phone] | | [facility] | | [address] | | | - LABORATORY | | [...] + | [facility] | [address] | [place] | [phone] | | [facility] | | [address] | | | - LABORATORY | | [...] | | | | | | [facility] | | | | [...] [address] | [place] | [phone] | | [facility] | | [address] | | | - LABORATORY | | [...] St | [place] | [phone] | | [facility] | | [address] | | | - LABORATORY | | [...] mL/min/1.73m2 | [facility] | | | [place] | RATE,ESTIMATED | | MEDICAL | | | | mL/min/1.93a1Pefw than | | CENTER - | | [...] St | [place] | [phone] | | [facility] | | [address] | | | - LABORATORY | | [...] St | [place] | [phone] | | [facility] | | [address] | | | - LABORATORY | | [...] [address] | [place] | [phone] | | [facility] | | [address] | | | - LABORATORY | | [...] St | [place] | [phone] | | [facility] | | [address] | | | - LABORATORY | | [...] + | [facility] | [address] | [place] | [phone] | | [facility] | | [address] | | | - LABORATORY | | [...] ST. | [address] | [place] | [phone] | | [facility] | | [address] | | | - LABORATORY | | [...] (H) | 7 - 18 mg/dL | [facility] | | | | | | [facility] | | | | | | MEDICAL | | | | | | CENTER - | | | | | | LABORATORY | | + + + + + + | Creatinine | 6.72 (H) | 0.60 - 1.30 | [facility] | | | | | mg/dL | [facility] | | | | | | MEDICAL | | | | | | CENTER - | | | | | | LABORATORY | | + + + + + + | eGFR if not | 8 (L)Comment: GLOMERULAR | >=60 | [facility] | | | | FILTRATION | mL/min/1.73m2 | [facility] | | | [place] | RATE,ESTIMATED | | MEDICAL | | | | mL/min/1.52m6Mmcy than | | CENTER - | | [...] [address] | [place] | [phone] | | [facility] | | [address] | | | - LABORATORY | | [...] [address] | [place] | [phone] | | [facility] | | [address] | | | - LABORATORY | | | | + + + + + documented in this encounter Visit Diagnoses + + | Diagnosis | + + | Cellulitis of left lower extremity - Primary Cellulitis and abscess of leg, except | | foot | + + | Cellulitis, unspecified cellulitis site | + + | Anemia in ESRD (end-stage renal disease) ([facility]) Anemia in chronic kidney disease | + + | End stage renal disease ([facility]) End stage renal disease | + + | Type II or unspecified type diabetes mellitus with renal manifestations, not stated as | | uncontrolled(250.40) ([facility]) Type II or unspecified type diabetes mellitus with renal | | manifestations, not stated as uncontrolled | + + | Diabetic ulcer of left midfoot associated with type 2 diabetes mellitus, limited to | | breakdown of skin ([facility]) | + + | Gangrene of left [...] | | | | | dose on [facility] 09/05/18 at 2215 | | | | [...] | | | | | ineffective use Schaller 10/325 if | | | | | [...] | | | | | | | 1029-6578 Use NIGHT DOSE for | | | | | | | doses scheduled: HS, 3AM, | | | | | | | Nighttime 2051-9373, | | | | | | + [...] | | | | | Hours, ONCE, [facility] 09/05/18 at | | | | | [...] | | | | First dose on [facility] 09/05/18 at | | PM PST | [...] | | | | 90 Minutes, ONCE, [facility] 09/05/18 at | | | | | [...]
--- OUTSIDE RECORDS SUMMARY | ~2020-03-04 | XMS | Encounter Summary ---
Demographics + + + | Address | [address] | | | [place] [address] | + + + | Home Phone | | + + + | Preferred Language | Unknown | + + + | Marital Status | | + + + | Zoroastrianism Affiliation | 1041 | + + + | Race | Unknown | + + + | Ethnic Group | Unknown | + + + Author + + + | Author | [facility] | | | and [place] | + + + | Organization | [facility] | | | and [...] Providers + +------+ + | Care Bridge Ironworker Name | Role | Phone | + [...] | [address] | [place] [place] [address] | | | | | [place] | [place] | | | | | [address] | [address] | | | | | [phone] | | | +--------+ + + + [...]
--- OUTSIDE RECORDS SUMMARY | ~2020-03-04 | XMS | Encounter Summary ---
Demographics + + + | Address | [address] | | | [place] [address] | + + + | Home Phone | | + + + | Preferred Language | Unknown | + + + | Marital Status | Single | + + + | Christian Affiliation | Unknown | + + + | Race | or | + + + | Ethnic Group | Not or | + + + Author + + + | Author | [facility] | + + + | Organization | [facility] | + + + [...] Providers + +------+ + | Care Supervisor Decorating Name | Role | Phone | + [...] | | | | | Ava [place], | [place], [place] | | | | | [place] [address] | [address] | | | | | [phone] | | | +--------+ + + + [...]
--- OUTSIDE RECORDS SUMMARY | ~2020-03-04 | XMS | Encounter Summary ---
Demographics + + + | Address | [address] | | | [place] [address] | + + + | Home Phone | | + + + | Preferred Language | Unknown | + + + | Marital Status | | + + + | Sabianist Affiliation | 1041 | + + + | Race | Unknown | + + + | Ethnic Group | Unknown | + + + Author + + + | Author | [facility] | | | and Scarana | + + + | Organization | [facility] | | | and [...] Team Providers + +------+ + | Care Tube Room Supervisor Name | Role | Phone | [...] + | 01/10/ | Anesthesia | [facility] | Mary Smiley MD | | | 2019 | Event | MED CTR [facility] INTRA OP | [address] | | | | | [address] | [place] | | | | | [place] | [phone] | | | | | [address] | | | | | | [phone] | | | +--------+ + + + + Anesthesia Record + + + + + | Procedure Name | Responsible | Anesthesia Start | Anesthesia Stop Time | | | Anesthesiologist | Time | | + + + + + | AMPUTATION TOE (Left | Mary Smiley MD | 01/10/19 1507 | 01/10/19 1550 [...] +----+---+ + + | | 1 | [place] | | | | 5 | 43-degrees [...] +----+---+ + + | | 1 | [place] off | | | | 5 | [...] Patient | | | | | room; Accounts Payables Clerk; Aislinn Coon; | | | | | [...] number | | | | | (specify) ([employer] [id number]); 5 Fr, | | | | | [...] Merari Lima RN | | IV | euko-uln-vclngm catheter system; | RN | | | [...]
--- OUTSIDE RECORDS SUMMARY | ~2020-03-04 | XMS | Encounter Summary ---
Demographics + + + | Address | [address] | | | [place] [address] | + + + | Home Phone [...] | Organization | [facility] | | | and [place] [...] Team Providers + +------+ + | Care Roofing Subcontractor Name | Role | Phone | + [...] | [address] | [place], [address] | | | | | [place] | [place] | | | | | [address] | [address] | | | | | [phone] | | | +--------+ + + + [...] and 09/28/14 to Priscilla in referrals at [facility] (fx: [phone]) per her request. documented in this encoun ter Plan of Treatment Not on filedocumented as of this encounter Visit Diagnoses Not on filedocumented in this encounter"
--- OUTSIDE RECORDS SUMMARY | ~2020-03-04 | XMS | Encounter Summary ---
Demographics + + + | Address | [address] | | | [place] [address] | + + + | Home Phone | | + + + | Preferred Language | Unknown | + + + | Marital Status | | + + + | Baptist Affiliation | 1041 | + + + | Race | Unknown | + + + | Ethnic Group | Unknown | + + + Author + + + | Author | [facility] | | | and [place] | + + + | Organization | [facility] | | | and [place] [...] Team Providers + +------+ + | Care Sleeve Bottom Feller Name | Role | Phone | + +------+ + PCP | Unavailable | + +------+ + Encounter Details +--------+ + + + + | Date | Type | Department | Care Team | Description | +--------+ + + + + | 01/07/ | Abstract | [facility] [place] | [facility], | | | 2015 | | GASTROENTEROLOGY | [place] [address] | | | | | [address] | [place], [address] | | | | | [address] [place] | [place] | | | | | [address] | [address] | | | | | [phone] | | | +--------+ + + + [...] ST. | [address] | [place], [place] | | | [facility] | | [address] | | | - LABORATORY | | [...] St | [place] | | | [facility] | | [address] | | | - LABORATORY | | | | + + + + + documented in this encounter Visit Diagnoses Not on filedocumented in this encounter"
--- OUTSIDE RECORDS SUMMARY | ~2020-03-04 | XMS | Encounter Summary ---
Demographics + + + | Address | [address] | | | [place] [address] | + + + | Home Phone [...] Organization | [facility] | | [...] Providers + +------+ + | Care Lead Mason Tender Name | Role | Phone | [...] | NEPHROLOGY [address] | [address] | | | | | [address] | [place] [address] [place] | | | | | [place] | [place] [address] | | | | | [address] | [phone] | | | | | [phone] | | | +--------+ + + + [...] - 04/19/2017 8:34 AM PDTOutside record: From [facility] [place] fistulagram order, dos: 04-18-17. Sent to scan. documented in this encounter Plan of Treatment Not on filedocumented as of this encounter Visit Diagnoses Not on filedocumented in this encounter"
--- OUTSIDE RECORDS SUMMARY | ~2020-03-04 | XMS | Encounter Summary ---
Demographics + + + | Address | [address] | | | [place] [address] | + + + | Home Phone [...] Organization | [facility] | [...] Providers + +------+ + | Care Linux Support Engineer Name | Role | Phone | [...] | [address] | [place], [address] | | | | | [place], [place] | [place], [place] | | | | | [address] | [address] | | | | | [phone] | | | +--------+ + + + [...]
--- OUTSIDE RECORDS SUMMARY | ~2020-03-04 | XMS | Encounter Summary ---
Demographics + + + | Address | [address] | | | [place] [address] | + + + | Home Phone [...] Providers + +------+ + | Care Bridge Operator Slip Name | Role | Phone | + [...] | | | disease | [address] | [place], [place] | | | | | (HCC) | [place] | [address] [place] | | | | | Procedures | [address] | [place], [place] | | | | | [place] ESRD | [place], | [address] Phone: | | | | | RELATED SVC | [place] | [phone] | | | | | MONTHLY | [address] | Fax: | | | | | 20&/> YR OLD | Phone: | [phone] | | | | | 4/> VISITS | [phone] | | | | | | dialysis | Fax: | | | | | | | [phone] | | + +--------+ + + + [...] | [address] | [place] | (Primary Dx) | | | | [place], [place] | [place], [place] | | | | | [address] | [address] | | | | | [phone] | | | +--------+ + + + [...] DO - 12/01/2019 9:15 AM PST Subjective: [facility] DIALYSIS NOTE Patient ID: Celso Caro is a 59 y.o. male. 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 He i s doing better with his [...] CKD/MBD--treated with Velphoro, and Hectorol at the [facility], [place], [place]. Outpatient Medications Marked as Taking for the 12/01/19 encounter (Off-Site Visit) with Naveen Orozco DO Medication Sig Dispense Refill apixaban (ELIQUIS) 5 mg tablet Take 2.5 mg by mouth 2 times daily. B Ylaxpdh-D-Viydv Acid (OLEG-TEQUILA RX) 1 MG TABS Take [...] need to recontact his transplant team at [facility]. I am not sure whe re his [...] when the Hb is <11.0 g/dl. : [facility], [facility] Toby Schuster DPM documented in thi s [...]
--- OUTSIDE RECORDS SUMMARY | ~2020-03-04 | XMS | Encounter Summary ---
Demographics + + + | Address | [address] | | | [place] [address] | + + + | Home Phone [...] + | Organization | [facility] | [...] Team Providers + +------+ + | Care Flask Maker Name | Role | Phone | + [...] | NEPHROLOGY [address] | [address] | disease (HCC) | | | | [address] | [place] [address] [place] | (Primary Dx); | | | | [place] | [place] [address] | Unspecified | | | | [address] | [phone] | hypertensive kidney | | | | [phone] | | disease with chronic | | | | | | kidney disease | | | | | | stage V or end stage | | | | | | renal disease | | | | | | ([facility]); Anemia in CKD | | | | | | (chronic kidney | | | | | | disease); Secondary | | | | | | hyperparathyroidism | | | | | | (of renal origin) | | | | | | ([facility]) | +--------+ + + + + Social [...] Note Date of visit: 08/25/2013 Dialysis Clinic: [facility] Mode of dialysis: Hemodialysis Dialysis prescription: MWF, [...] by mouth Daily. 30 tablet 5 B Inllqip-F-Lytyp Acid (OLEG-TEQUILA RX) 1 MG TABS Take [...] optimize health; demonstrate participation and compliance w [facility]. 9. DM type 2: On Januvia and Lantus. cc: Teo Obrien documented in this encounter Plan of Treatment Not on filedocumented as of this encounter Visit Diagnoses + + | Diagnosis | + + | End stage renal disease ([facility]) - Primary End stage renal disease | + + | Unspecified hypertensive kidney disease with chronic kidney disease stage V or end | | stage renal disease(403.91) ([facility]) Unspecified hypertensive kidney disease with chronic | | kidney disease stage V or end stage renal disease | + + | Anemia in CKD (chronic kidney disease) Anemia in chronic kidney disease | + + | Secondary hyperparathyroidism (of renal origin) | + + documented in this encounter"
--- OUTSIDE RECORDS SUMMARY | ~2020-03-04 | XMS | Encounter Summary ---
Demographics + + + | Address | [address] | | | [place] [address] | + + + | Home Phone [...] [facility] | | | and [place] [...] Team Providers + +------+ + | Care Microbiology Manager Name | Role | Phone | [...] | | | | | pre-operativ | [place] | [address] | | | | | e | [address] [place] | [address] [place] | | | | | examination | [place], [place] | [place], [place] | | | | | | [address] | [address] | | | | | Preventative | Phone: | Phone: | | | | | health care | [phone] | [phone] | | | | | Type II or | Fax: | Fax: | | | | | unspecified | [phone] | [phone] | | | | | type | [...] | NEPHROLOGY [address] [place] | pre-operative | | | | [address] | [place] [address] [place] | examination (Primary | | | | [place], [place] | [place] [address] | Dx); Preventative | | | | [address] | [phone] | health care; Type II | | | | [phone] | | or unspecified type | | [...] care Routine general medical examination at a [facility] | | facility | + + | Type II or unspecified type diabetes mellitus with renal manifestations, uncontrolled | + + documented in this encounter"
--- OUTSIDE RECORDS SUMMARY | ~2020-03-04 | XMS | Encounter Summary ---
Demographics + + + | Address | [address] | | | [place] [address] | + + + | Home Phone [...] + | Organization | [facility] [place] [facility] | | [...] Team Providers + +------+ + | Care Wood Boatbuilder Apprentice Name | Role | Phone | [...] | Procedures | [place] | [place] [address] | | | | | [place] [address] | [address] | Phone: | | | | | ANAST,UP ARM | Phone: | [phone] | | | | | CEPHALIC | [phone] | Fax: | | | | | VEIN | Fax: | [phone] | | | | | TRANSPOSIT | [phone] | | +--------+ + + + + [...] | | | | AV fistula | [place], [place] | [address] | | | | | Procedures | [address] [place] | [place], | | | | | OFFICE VISIT | [facility], [place] | [place] [address] | | | | | | [address] | Phone: | | | | | EXTENDED/con | Phone: | [phone] | | | | | sult | [phone] | Fax: | | | | | | Fax: | [phone] | | | | | | [phone] | | +--------+--------+ + + + + [...] disease (HCC) | | | | [place], [place] | [address] [place] | (Primary Dx); Type | | | | [address] | [place] [address] | II or unspecified | | | | [phone] | [phone] | type diabetes | | | | [...] the Equi stream catheter. I have called [phone] and talked with nurse Coni. She confirms this. Also notes accessory veins is making dialysis Difficult. Patient denies left hand pains. Patient is dialyzed -W- in [place]. Past Medical History He has a past [...] by mouth Daily. 30 tablet 5 B Hceudvg-O-Eknfd Acid (OLEG-CONRADO RX) 1 MG TABS Take [...] Surgery | Referral | e | disease ([facility]) | | + + +--------+ + + documented as of this encounter Visit Diagnoses + + | Diagnosis | + + | End stage renal disease ([facility]) - Primary End stage renal disease | + + | Type II or unspecified type diabetes mellitus with renal manifestations, | | uncontrolled(250.42) ([facility]) Type II or unspecified type diabetes mellitus with renal | | manifestations, uncontrolled | + + | Chest pain Chest pain, unspecified | + + | Hepatitis C Unspecified viral hepatitis C without hepatic coma | + + documented in this encounter
--- OUTSIDE RECORDS SUMMARY | ~2020-03-04 | XMS | Encounter Summary ---
Demographics + + + | Address | [address] | | | [place] [address] | + + + | Home Phone [...] | Organization | [facility] | | [...] Team Providers + +------+ + | Care Leadership Recruiter Name | Role | Phone | + [...] Ramon Newton | | | | | ([facility]) | [place] | [address] | | | | | Procedures | [address] | [place] | | | | | [place] OFFICE | Phone: | [phone] Phone: | | | | | OUTPATIENT | [phone] | [phone] | | | | | VISIT 25 | Fax: | Fax: | | | | | MINUTES | [phone] | [phone] | +--------+--------+ + + + + Encounter Details +--------+---------+ + + + | Date | Type | Department | Care Team | Description | +--------+---------+ + + + | 08/02/ | Office | [facility] | Uche Orozco | End stage renal | | 2015 | Visit | NEPHROLOGY [address] | M, DO [address] | disease (HCC) | | | | [address] | [place], [address] | (Primary Dx) | | | | [place] | [place] | | | | | [address] | [address] | | | | | [phone] | | | +--------+---------+ + + + [...] is seen on outpatient HD, at the [facility] . He also has T2DM, requiring [...] by mouth Daily. 30 tablet 5 B Htpgtrz-A-Lvrne Acid (OLEG-TEQUILA RX) 1 MG TABS Take [...] listed. 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 Plan: 1. Need to recheck his formal lipid profile and HbA1c. 2. Will increase Hectorol per the [employer] algorithm to target his PTH 1 50 300. 3. Will recheck him in 2 weeks. 4. Flu vaccine IM 1 was given to the patient. CC: [facility] documented in thi s encounter Plan of Treatment Not on filedocumented as of this encounter Visit Diagnoses + + | Diagnosis | + + | End stage renal disease (HCC) - Primary End stage renal disease | + + documented in this encounter"
--- OUTSIDE RECORDS SUMMARY | ~2020-03-04 | XMS | Encounter Summary ---
Demographics + + + | Address | [address] | | | [place] [address] | + + + | Home Phone [...] Organization | [facility] | | | and [...] Providers + +------+ + | Care Warehouse Representative Name | Role | Phone | + +------+ + PCP | Unavailable | + +------+ + Encounter Details +--------+ + + + + | Date | Type | Department | Care Team | Description | +--------+ + + + + | 06/02/ | Hospital | [facility] | Artem Angelo | | | 2012 | Encounter | [facility] INTRA OP | [place], FACS [address] | | | | | [address] | [place] | | | | | [place] | [place] [address] | | | | | [address] | [phone] | | | | | [phone] | | | +--------+ + + + [...] St | [place] | [phone] | | [facility] | | [address] | | | - LABORATORY | | | | + + + + + | [facility] | [address] | [place] | | | [facility] | | [address], [facility] | | | - LABORATORY | [...] | | | [place] | | | [facility] | | | - LABORATORY | + + + + + + + + | Performing | Address | City/State/Zipcode | Phone Number | | Organization | | | | + + + + + | [facility] | [address] | [place] | [phone] | | [facility] | | [address] | | | - LABORATORY | | | | + + + + + | [facility] | [address] | [place] | | | [facility] | | [address], [facility] | | | - LABORATORY | [...] + | [facility] | [address] | [place] | [phone] | | [facility] | | [address] | | | - LABORATORY | | | | + + + + + | [facility] | [address] | [place], [place] | | | [facility] | | [address], [facility] | | | - LABORATORY | [...] St | [place] | [phone] | | [facility] | | [address] | | | - LABORATORY | | | | + + + + + | [facility] | [address] | [place], [place] | | | [facility] | | [address], [facility] | | | - LABORATORY | | | | + + + + + Chemistry Index (06/02/2013 9:03 AM PDT) + + + + + + | Component | Value | Ref Range | Performed | Pathologist | | | | | At | Signature | + + + + + + | HEMOLYSIS | 1+ (A)Comment: AMYLASE, | None | [facility] | | | INDEX | AMMONIA, CPK, IRON, K+, | | [facility] | | | | LDH, SGOT/AST, | [...] + | [facility] | [address] | [place] | [phone] | | [facility] | | [address] | | | - LABORATORY | | | | + + + + + | [facility] | [address] | [place], [place] | | | [facility] | | [id number] | | | - LABORATORY | | [...] + | [facility] | [address] | [place] | [phone] | | [facility] | | [address] | | | - LABORATORY | | | | + + + + + | [facility] | [address] | [place] | | | [facility] | | [id number] [place] [address] | | | - LABORATORY | | | | + + + + + documented in this encounter Visit Diagnoses Not on filedocumented in this encounter"
--- OUTSIDE RECORDS SUMMARY | ~2020-03-04 | XMS | Encounter Summary ---
Demographics + + + | Address | [address] | | | [place] [address] | + + + | Home Phone [...] + | Organization | [facility] | | | and [...] Team Providers + +------+ + | Care Bell Cleaner Name | Role | Phone | + [...] + + | 09/07/ | Surgery | [facility] | Toby Schuster, | INCISION AND | | 2018 | | MED CTR OR INTRA OP | DPM [address] | DRAINAGE LEFT FOOT | | | | [address] | [place] | | | | | [place] | [address] | | | | | [address] | [phone] | | | | | [phone] | | | +--------+---------+ + + + [...] Uche Sánchez DO - 09/15/2018 11:[address] [address] DISCHARGE SUMMARY UCHE SÁNCHEZ DO Patient: ISIDRA RINCON Admitting: ELIZABETH VIVAS MR #: [id number] LOC: PT TYPE: Adm Date: 09/05/2018 : [...] diabetic glomerulosclerosis, on outpatient dialysis MW, at [place], [place]. 5. Hypertension - good control. 6. [...] nown to the nephrology service from the [facility] in [place], [place]. He has been outpatient dialysis there for some time. Approximately 6 days prior to admissi on, he developed increasing tenderness, swelling and then this evolved into fever and chills to 102. He was given a trial of outpatient antibiotics at [facility] and on the da y of admission, [...] was consulted a s well as [facility] for him to get Vancomycin [...] gram IV every Sunday and Sunday, via [facility], through 10/18/2018. 2. Ampicillin sulbactam 3 grams IV piggyback daily, through 10/18/2018 via [facility]. 3. Apixaban 2.5 mg b.i.d. 4. Nephro-Tressa [...] will see him in followup at the [facility], [place], [place], in 1 week. [facility] 2-[facility]/2 weeks to follow up on his atrial flutter. 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 I discussed that he does need to [...] Comer's help with Mr. Rincon's medical p [facility]. I did discuss his case with his PCP, Dr. Navjot Calloway for long-term followup as Herman obtain s majority of his primary care through the [facility]. UCHE SÁNCHEZ DO Dictated by UCHE SÁNCHEZ DO 09/15/2018 11:22:28 Transcribed on 09/15/2018 15:59:51 by in job# [id number] Confirmation #: [id number] cc: FRANCESCO COMER MD [facility] at [place], [place]. documented in thi s encounter Discharge [...] + + +---------+ + + | B Zfjnwxn-F-Zybsj | Take 1 mg by mouth | [...] | | | g) 3 gIndications: | [facility]. Indications: | | | | | | [...] Name, strength, and directions X Doctor's office: [facility] Dr. Ernesto Sherman X Pharmacy list names: [facility] X [employer] insurance reported information X [...] Other: Insulin managed by SAMARA Donaldson at [facility] Patient recently had a Ceftriaxone 1 gm injection administered at [facility] on 09/03/18 Medication: Prior to Admission Sig: Patient taking differently COMPRESSED GASES TESTER as: Cinacalcet 60 mg tab 1 tab by mouth daily Not taking patient states this was discontinued. However, no records indicate this was discontinued Sucroferric oxhydroxide 500 mg chew tab 1 tab by mouth four times daily (before meals and n ightly) Patient not taking patient states this was discontinued. However, This is still an active order per [facility]. Furosemide 80 mg tab 1 tab by mouth daily 1 tab by mouth four times per week. Patient feels it is a waste to take on days he goes to dialysis. (Sunday, Sunday and ). Best possible COMPRESSED GASES TESTER medication list after pharmacy review: PT REPORTED TAKING NOT TAKING Medication Sig Last Dose Dispense Doc. Provider aspirin 81 mg EC tablet Take 81 mg by mouth Daily. Taking Historical Provider, MD Arian BalbuenaFxrwbvt-J-Muqlp Acid (OLEG-TRESSA RX) 1 MG TABS Take 1 mg by mouth Daily. Taking 30 each C helane R Fackenthall, SCRAP CHARGER cephalexin (KEFLEX) 250 mg capsule Take 250 [...] performed and electronically signed by Shannan Arguello, Swimming Pool Plasterer Helper 2017 9:29 Patrick Jack PharmD, KEYSHA 09/11/2018 10:30Electronically signed by Patrick Jack PharmD at 1 11/12/2017 10:30 AM Uche Guallpa, DO - 09/10/2018 9:53 PM PSTFormatting of this no te might be different from the original. [facility] [address] [place] [address] PROGRESS NOTE Pt. Name/Age/: Isidra Hernandez Case 58 y.o. 1960 Med. Record Number: [id number] Date of admission: 09/05/2018 NEPHROLOGY HPI - [...] cleared with HD and PTT rech ecked. [facility] aldLizzy delcid, PharmD - 09/10/2018 1:21 PM [...] urinary obstruction; Diabetes mellitus, type 2 ([facility]) (1999); Diabetic foot ulcer ([facility]) (01/01/12); ESRD (end stag e renal disease) on dialysis ([facility]) (1999); Heart murmur; Hepatitis C (2006); Hyperlipidemia; [...] Value Units Date/Time Culture, Wound, Smear, w/Anaerobe [[id number]] Collected: 09/07/181123 Order Status: Sent Lab Status: In process Updated: 09/09/18 105 Specimen: Tissue from Toe, Second, Left Narrative: The following orders were created for panel order Culture, Wound, Smear, w/Anaerobe. Procedure Abnormality Status --------- ------ Culture, Wound, Smear[[id number]] Final result Culture, Anaerobic[[id number]] Normal Preliminary result Please view results for these tests on the individual orders. Culture, Wound, Smear [[id number]] (Susceptibility) Collected: 09/07/181123 Order Status: Completed Lab [...] be used alone for chemotherapy. Culture, Anaerobic [[id number]] (Normal) Collected: 09/07/181123 Order Status: Completed Lab Status: Preliminary result Updated: 09/10/18 1321 Specimen: Tissue from Toe, Second, Left Culture No anaerobes isolated to date. Culture, Wound, Smear, w/Anaerobe [[id number]] Collected: 09/07/18919 Order Status: Sent Lab Status: In process Updated: 09/09/181049 Specimen: Tissue from Foot, Plantar, Left Narrative: The following orders were created for panel order Culture, Wound, Smear, w/Anaerobe. Procedure Abnormality Status --------- ------ Culture, Wound, Smear[[id number]] Final result Culture, Anaerobic[[id number]] In process Please view results for these tests on the individual orders. Culture, Wound, Smear [[id number]] (Susceptibility) Collected: 09/07/18919 Order Status: Completed Lab [...] be used alone for chemotherapy. Culture, Anaerobic [[id number]] Collected: 09/07/18919 Order Status: Resulted Lab Status: In process Updated: 09/07/18933 Specimen: Tissue from Foot, Plantar, Left Culture, Blood [[id number]] (Normal) Collected: 09/07/18518 Order Status: Completed Lab Status: Preliminary result Updated: 09/10/18540 Specimen: Blood from Peripheral Blood Culture No growth: Monitored continually by instrument for 5 days Culture, Blood [[id number]] (Normal) Collected: 09/07/18514 Order Status: Completed Lab Status: Preliminary result Updated: 09/10/18540 Specimen: Blood from Peripheral Blood Culture No growth: Monitored continually by instrument for 5 days Culture, Blood [[id number]] (Normal) Collected: 09/05/18 1806 Order Status: Completed Lab Status: Preliminary result Updated: 09/08/18 181 Specimen: Blood from Peripheral Blood Culture No growth: Monitored continually by instrument for 5 days Culture, Blood [[id number]] (Abnormal) (Susceptibility) Collected: 09/05/18 1725 Order Status: [...] chemotherapy. Blood Culture GP Pathogen Panel, PCR [[id number]] (Abnormal) Collected: 09/05/181724 Order Status: Completed Lab [...] Comer's input on his A. Flutter management. [facility] Bel Ramirez PharmD - 09/09/2018 9:26 AM [...] urinary obstruction; Diabetes mellitus, type 2 ([facility]) (1999); Diabetic foot ulcer ([facility]) (01/01/12); ESRD (end stag e renal disease) on dialysis ([facility]) (1999); Heart murmur; Hepatitis C (2006); Hyperlipidemia; [...] Value Units Date/Time Culture, Wound, Smear, w/Anaerobe [[id number]] Collected: 09/07/181123 Order Status: Sent Lab Status: In process Updated: 09/07/181124 Specimen: Tissue from Toe, Second, Left Narrative: The following orders were created for panel order Culture, Wound, Smear, w/Anaerobe. Procedure Abnormality Status --------- ------ Culture, Wound, Smear[[id number]] Preliminary result Culture, Anaerobic[[id number]] In process Please view results for these tests on the individual orders. Culture, Wound, Smear [[id number]] (Susceptibility) Collected: 09/07/181123 Order Status: Completed Lab [...] be used alone for chemotherapy. Culture, Anaerobic [[id number]] Collected: 09/07/181123 Order Status: Resulted Lab Status: In process Updated: 09/07/181124 Specimen: Tissue from Toe, Second, Left Culture, Wound, Smear, w/Anaerobe [[id number]] Collected: 09/07/18919 Order Status: Sent Lab Status: In process Updated: 09/07/18933 Specimen: Tissue from Foot, Plantar, Left Narrative: The following orders were created for panel order Culture, Wound, Smear, w/Anaerobe. Procedure Abnormality Status --------- ------ Culture, Wound, Smear[[id number]] Preliminary result Culture, Anaerobic[[id number]] In process Please view results for these tests on the individual orders. Culture, Wound, Smear [[id number]] (Susceptibility) Collected: 09/07/18919 Order Status: Completed Lab [...] be used alone for chemotherapy. Culture, Anaerobic [[id number]] Collected: 09/07/18919 Order Status: Resulted Lab Status: In process Updated: 09/07/18933 Specimen: Tissue from Foot, Plantar, Left Culture, Blood [[id number]] (Normal) Collected: 09/07/18518 Order Status: Completed Lab Status: Preliminary result Updated: 09/07/181740 Specimen: Blood from Peripheral Blood Culture No growth: Monitored continually by instrument for 5 days Culture, Blood [[id number]] (Normal) Collected: 09/07/18 0515 Order Status: Completed Lab Status: Preliminary result Updated: 09/07/181740 Specimen: Blood from Peripheral Blood Culture No growth: Monitored continually by instrument for 5 days Culture, Blood [[id number]] (Normal) Collected: 09/05/181805 Order Status: Completed Lab Status: Preliminary result Updated: 09/08/181810 Specimen: Blood from Peripheral Blood Culture No growth: Monitored continually by instrument for 5 days Culture, Blood [[id number]] (Abnormal) (Susceptibility) Collected: 09/05/18 172 Order Status: [...] chemotherapy. Blood Culture GP Pathogen Panel, PCR [[id number]] (Abnormal) Collected: 09/05/18 1725 Order Status: Completed [...] might be different from the origi nal. [facility] [address] [place] [address] PROGRESS NOTE Pt. Name/Age/: Isidra Rincon 58 y.o. 1960 Med. Record Number: [id number] Date of admission: 09/05/2018 NEPHROLOGY HPI - [...] minimal heparin. 4. Pt placed on tele. [facility] oby Schuster D PM - 09/08/2018 9:23 AM PST Foot & Ankle Surgery Progress Note Toby Schuster DPM Isidra Hernandez Case Age/Gender 58 y.o. male Location [facility] Attending No att. providers found [...] Value Units Date/Time Culture, Wound, Smear, w/Anaerobe [[id number]] Collected: 09/07/181123 Order Status: Sent Lab Status: In process Updated: 09/07/181124 Specimen: Tissue from Toe, Second, Left Narrative: The following orders were created for panel order Culture, Wound, Smear, w/Anaerobe. Procedure Abnormality Status --------- ------ Culture, Wound, Smear[[id number]] Preliminary result Culture, Anaerobic[[id number]] In process Please view results for these tests on the individual orders. Culture, Wound, Smear [[id number]] Collected: 09/07/181123 Order Status: Completed Lab Status: Preliminary result Updated: 09/08/18824 Specimen: Tissue from Toe, Second, Left Culture 3+ Staphylococcus aureus Comment: Presumptive identification Identification and susceptibility to follow. Gram Stain Result 1+ White Blood Cells No organisms seen Culture, Anaerobic [[id number]] Collected: 09/07/181123 Order Status: Resulted Lab Status: [...] urinary obstruction; Diabetes mellitus, type 2 ([facility]) (1999); Diabetic foot ulcer ([facility]) (01/01/12); ESRD (end stag e renal disease) on dialysis ([facility]) (1999); Heart murmur; Hepatitis C (2006); Hyperlipidemia; [...] Value Units Date/Time Culture, Wound, Smear, w/Anaerobe [[id number]] Collected: 09/07/181123 Order Status: Sent Lab Status: In process Updated: 09/07/181124 Specimen: Tissue from Toe, Second, Left Narrative: The following orders were created for panel order Culture, Wound, Smear, w/Anaerobe. Procedure Abnormality Status --------- ------ Culture, Wound, Smear[[id number]] Preliminary result Culture, Anaerobic[[id number]] In process Please view results for these tests on the individual orders. Culture, Wound, Smear [[id number]] Collected: 09/07/181123 Order Status: Completed Lab Status: Preliminary result Updated: 09/08/18824 Specimen: Tissue from Toe, Second, Left Culture 3+ Staphylococcus aureus Comment: Presumptive identification Identification and susceptibility to follow. Gram Stain Result 1+ White Blood Cells No organisms seen Culture, Anaerobic [[id number]] Collected: 09/07/181123 Order Status: Resulted Lab Status: In process Updated: 09/07/181124 Specimen: Tissue from Toe, Second, Left Culture, Wound, Smear, w/Anaerobe [[id number]] Collected: 09/07/18 0920 Order Status: Sent Lab Status: In process Updated: 09/07/18 09 Specimen: Tissue from Foot, Plantar, Left Narrative: The following orders were created for panel order Culture, Wound, Smear, w/Anaerobe. Procedure Abnormality Status --------- ------ Culture, Wound, Smear[[id number]] Preliminary result Culture, Anaerobic[[id number]] In process Please view results for these tests on the individual orders. Culture, Wound, Smear [[id number]] Collected: 09/07/18919 Order Status: Completed Lab Status: Preliminary result Updated: 09/07/18 144 Specimen: Tissue from Foot, Plantar, Left Gram Stain Result 3+ White Blood Cells No organisms seen Culture, Anaerobic [[id number]] Collected: 09/07/18919 Order Status: Resulted Lab Status: In process Updated: 09/07/18933 Specimen: Tissue from Foot, Plantar, Left Culture, Blood [[id number]] (Normal) Collected: 09/07/18 0519 Order Status: Completed Lab Status: Preliminary result Updated: 09/07/18 174 Specimen: Blood from Peripheral Blood Culture No growth: Monitored continually by instrument for 5 days Culture, Blood [[id number]] (Normal) Collected: 09/07/18 0515 Order Status: Completed Lab Status: Preliminary result Updated: 09/07/18 174 Specimen: Blood from Peripheral Blood Culture No growth: Monitored continually by instrument for 5 days Culture, Blood [[id number]] (Normal) Collected: 09/05/18 1806 Order Status: Completed Lab Status: Preliminary result Updated: 09/06/18 06 Specimen: Blood from Peripheral Blood Culture No growth: Monitored continually by instrument for 5 days Culture, Blood [[id number]] (Abnormal) Collected: 09/05/181724 Order Status: Completed Lab [...] report. Blood Culture GP Pathogen Panel, PCR [[id number]] (Abnormal) Collected: 09/05/181724 Order Status: Completed Lab [...] , DO - 09/07/2018 10:22 AM PST [facility] [address] [place] [address] PROGRESS NOTE Pt. Name/Age/: Isidra Hernandez Case 58 y.o. 1960 Med. Record Number: [id number] Date of admission: 09/05/2018 NEPHROLOGY HPI - [...] Inpt. ( These are followed monthly at [facility], in a [facility] 4. HTN--stable. 5. Type 2 [...] to optimize Hb and anemia, as above. [facility] LisaPatrick, Ph armD - 09/07/2018 7:21 AM PST VANCOMYCIN PER PHARMACY PROTOCOL: Subjective/Objective: Isidra Rincon is a 58 y.o. male admitted on 09/05/18 for cellulitis of left foot. Wilner johansen currently requires dialysis and is receiving vancomycin for DM foot and SSTI of left foot . Patient has a past medical history of Arthritis (09/15/2012); BPH with urinary obstruction; Diabetes mellitus, type 2 ([facility]) (1999); Diabetic foot ulcer ([facility]) (01/01/12); ESRD (end stag e renal disease) on dialysis ([facility]) (1999); Heart murmur; Hepatitis C (2006); Hyperlipidemia; [...] Procedure Component Value Units Date/Time Culture, Blood [[id number]] Collected: 09/07/18518 Order Status: Sent Lab Status: In process Updated: 09/07/18537 Specimen: Blood from Peripheral Blood Culture, Blood [[id number]] Collected: 09/07/18514 Order Status: Sent Lab Status: In process Updated: 09/07/18538 Specimen: Blood from Peripheral Blood Culture, Blood [[id number]] (Normal) Collected: 09/05/18 1806 Order Status: Completed Lab Status: Preliminary result Updated: 09/06/18 06 Specimen: Blood from Peripheral Blood Culture No growth: Monitored continually by instrument for 5 days Culture, Blood [[id number]] (Abnormal) Collected: 09/05/18 1725 Order Status: Completed [...] Cool MD - 09/06/2018 7:29 PM PST [facility] PMG Hospitalist Progress Note Isidra Rincon is [...] Continue vancomycin/Zosyn - Discussed with Dr. Cervantes navigation teacher for orthopedics, recommended discussing with Dr. Schuster [...] as outlined above. Kike Kuo 09/06/2018 19:29 [facility] Bel Ramirez PharmD - 09/06/2018 8:02 AM [...] urinary obstruction; Diabetes mellitus, type 2 ([facility]) (1999); Diabetic foot ulcer ([facility]) (01/01/12); ESRD (end stag e renal disease) on dialysis ([facility]) (1999); Heart murmur; Hepatitis C (2006); Hyperlipidemia; [...] Procedure Component Value Units Date/Time Culture, Blood [[id number]] (Normal) Collected: 09/05/18 1806 Order Status: Completed Lab Status: Preliminary result Updated: 09/06/18 0611 Specimen: Blood from Peripheral Blood Culture No growth: Monitored continually by instrument for 5 days Culture, Blood [[id number]] (Normal) Collected: 09/05/18 1725 Order Status: Completed [...] 2 (HCC) (1999); Diabetic foot ulcer ([facility]) (01/01/12); ESRD (end stag e renal disease) on dialysis ([facility]) (1999); Heart murmur; Hepatitis C (2006); Hyperlipidemia; [...] Procedure Component Value Units Date/Time Culture, Blood [[id number]] Collected: 09/05/181724 Order Status: Sent Lab Status: In process Updated: 09/05/181731 Specimen: Blood from Peripheral Blood Culture, Blood [[id number]] Order Status: Sent Lab Status: No result [...] + + +--------+ + + | * [facility] | Outpatient | STAT | Diabetic [...] [address] | [place] | [phone] | | [facility] | | [address] | | | - LABORATORY | | [...] mL/min/1.73m2 | [facility] | | | [facility] | | | MEDICAL | | | [...] + | [facility] | [address] | [place] | [phone] | | [facility] | | [address] | | | - LABORATORY | | [...] ST. | [address] | [place], [place] | [phone] | | [facility] | | [address] | | | - LABORATORY | | [...] St | [place] | [phone] | | [facility] | | [address] | | | - LABORATORY | | [...] St | [place] | [phone] | | [facility] | | [address] | | | - LABORATORY | | [...] St | [place] | [phone] | | [facility] | | [address] | | | - LABORATORY | | [...] + | [facility] | [address] | [place] | [phone] | | [facility] | | [address] | | | - LABORATORY | | [...] ST. | [address] | [place], [place] | [phone] | | [facility] | | [address] | | | - LABORATORY | | [...] Number [id number] Patient Number | | | [id number] Date of Study 09/10/2018 Visit | | | Number [id number] | | | Referring Physician ERNESTO Pena Number Date of | | | 1960 Grades 1 6 Tutor DOV WALKER Age | | | 58 year(s) Interpreting | | | DENISE COMER MD | | | Artificial Fly Tier ENRESTO Pena Gender | | | Male Nurse | | | Stress Precision Grinder External Procedure Type of Study TTE procedure: | [...] Diastolic: | | | 1.28 cm EF Smrjdfolw60% EF Calculated: 45% Miscellaneous Aorta | | [...] Diastolic: 1.28 cm | | | EF Ljxmjkpgz99% | | | EF Calculated: 45% | [...] Room Number 436 Patient | | Number [id number] Date of Study 09/10/2018 Visit Number [id number] | | Referring Physician ERNESTO Pena Number Date | | of 1960 Grades 1 6 Tutor DOV WALKER Age 58 | | year(s) Interpreting DENISE COMER MD | | Artificial Fly Tier ERNESTO Pena Gender Male Nurse | | [...] PW | | Diastolic: 1.28 cm EF Ckfdslung03% EF Calculated: 45% Miscellaneous Aorta Aortic Root: [...] PW Diastolic: 1.28 cm | | EF Exxlrjkpa95% | | EF Calculated: 45% | | [...] St | [place] | [phone] | | [facility] | | [address] | | | - LABORATORY | | [...] mL/min/1.73m2 | [facility] | | | [facility] | | | MEDICAL | | | [...] + | [facility] | [address] | [place] | [phone] | | [facility] | | [address] | | | - LABORATORY | | [...] St | [place] | [phone] | | [facility] | | [address] | | | - LABORATORY | | [...] + | [facility] | [address] | [place] | [phone] | | [facility] | | [address] | | | - LABORATORY | | [...] [address] | [place] | [phone] | | [facility] | | [address] | | | - LABORATORY | | [...] + | [facility] | [address] | [place] | [phone] | | [facility] | | [address] | | | - LABORATORY | | [address] | [place] | [phone] | | [facility] | | [address] | | | - LABORATORY | | | | + + + + + POC Glucose (09/09/2018 6:42 AM PST) + +-------+ + + + | Component | Value | Ref Range | Performed | Pathologist | | | | | At | Signature | + +-------+ + + + | Glucose, | 105 | 70 - 109 mg/dL | [facility] | | | POC | | | [...] ST. | [address] | [place], [place] | [phone] | | [facility] | | [address] | | | - LABORATORY | | [...] St | [place] | [phone] | | [facility] | | [address] | | | - LABORATORY | | [...] mL/min/1.73m2 | [facility] | | | [facility] | | | MEDICAL | | | [...] St | [place] | [phone] | | [facility] | | [address] | | | - LABORATORY | | [...] + | [facility] | [address] | [place] | [phone] | | [facility] | | [address] | | | - LABORATORY | | [...] [address] | [place] | [phone] | | [facility] | | [address] | | | - LABORATORY | | [...] | | | | ELEANOR JEONG MD ([id number]) | | | | | | on [...] [address] | [place] | [phone] | | [facility] | | [address] | | | - LABORATORY | | [...] St | [place] | [phone] | | [facility] | | [address] | | | - LABORATORY | | [...] St | [place] | [phone] | | [facility] | | [address] | | | - LABORATORY | | [...] St | [place] | [phone] | | [facility] | | [address] | | | - LABORATORY | | [...] [place] | | | [facility] | | [address] | | | - BLOOD BANK | [...] St | [place] | [phone] | | [facility] | | [address] | | | - LABORATORY | | [...] mL/min/1.73m2 | [facility] | | | [facility] | | | MEDICAL | | | [...] ST. | [address] | [place] | [phone] | | [facility] | | [address] | | | - LABORATORY | | [...] St | [place] | [phone] | | [facility] | | [address] | | | - LABORATORY | | [...] | | | POC | | | [facility] | | | | | [...] + | [facility] | [address] | [place] | [phone] | | [facility] | | [address] | | | - LABORATORY | | [...] St | [place] | [phone] | | [facility] | | [address] | | | - LABORATORY | | [...] St | [place] | [phone] | | [facility] | | [address] | | | - LABORATORY | | [...] + | [facility] | [address] | [place] | [phone] | | [facility] | | [address] | | | - LABORATORY | | [...] St | [place] | [phone] | | [facility] | | [address] | | | - LABORATORY | | [...] St | [place] | [phone] | | [facility] | | [address] | | | - LABORATORY | | [...] St | [place] | [phone] | | [facility] | | [address] | | | - LABORATORY | | [...] + | [facility] [facility] | [address] | [place] | [phone] | | [facility] | | [address] | | | - LABORATORY | | [...] St | [place] | [phone] | | [facility] | | [address] | | | - LABORATORY | | [...] + | [facility] | [address] | [place], [place] | [phone] | | [facility] | | [address] | | | - LABORATORY | | [...] ST. | [address] | [place], [place] | [phone] | | [facility] | | [address] | | | - LABORATORY | | [...] ST. | [address] | [place] | [phone] | | [facility] | | [address] | | | - LABORATORY | | [...] St | [place] | [phone] | | [facility] | | [address] | | | - LABORATORY | | [...] mL/min/1.73m2 | [facility] | | | [facility] | | | MEDICAL | | | [...] ST. | [address] | [place], [place] | [phone] | | [facility] | | [address] | | | - LABORATORY | | [...] St | [place] | [phone] | | [facility] | | [address] | | | - LABORATORY | | [...] ST. | [address] | [place] | [phone] | | [facility] | | [address] | | | - LABORATORY | | [...] foot | | | infection and osteomyelitis. CLR:[facility]:C2NR MICROSCOPIC | | | EXAMINATION: Histologic [...] LABORATORY: The technical component was performed by [employer] | | | [employer], [address] [place] [id number] (Staffing Administrator: | | | Val Gomez MD; CLIA# [id number]). Professional interpretation was | | | performed by [employer], [facility] | | | [place], [address] [place] [address] (Staffing Administrator: | | | Raciel Cho M.D.; CLIA#: [id number]). | | | Diagnostician: Raciel Cho MD [...] + | [facility] [facility] | [address] | [place] | [phone] | | [facility] | | [address] | | | - LABORATORY | | [...] ST. | [address] | [place], [place] | [phone] | | [facility] | | [address] | | | - LABORATORY | | [...] St | [place] | [phone] | | [facility] | | [address] | | | - LABORATORY | | [...] + | [facility] [facility] | [address] | [place] | [phone] | | [facility] | | [address] | | | - LABORATORY | | [...] [address] | [place] | [phone] | | [facility] | | [address] | | | - LABORATORY | | [...] ST. | [address] | [place] | [phone] | | [facility] | | [address] | | | - LABORATORY | | [...] St | [place] | [phone] | | [facility] | | [address] | | | - LABORATORY | | [address] | [place] | [phone] | | [facility] | | [address] | | | - LABORATORY | | [...] + | [facility] | [address] | [place] | [phone] | | [facility] | | [address] | | | - LABORATORY | | [...] mL/min/1.73m2 | . [facility] | | | [facility] | RATE,ESTIMATED | | MEDICAL | | | | mL/min/1.17g5Xqkt than | | CENTER - | | [...] St | [place] | [phone] | | [facility] | | [address] | | | - LABORATORY | | [...] St | [place] | [phone] | | [facility] | | [address] | | | - LABORATORY | | [...] ST. | [address] | [place], [place] | [phone] | | [facility] | | [address] | | | - LABORATORY | | [...] conventional methods | [facility] | | | [facility] | | | [facility] | | | - LABORATORY | + + + + + + + + | Performing | Address | City/State/Zipcode | Phone Number | | Organization | | | | + + + + + | [facility] [facility] | [address] | [place] | [phone] | | [facility] | | [address] | | | - LABORATORY | | [...] + | [address] | [address] | [place] | [phone] | | [facility] | | [address] | | | - LABORATORY | | [...] | | | | mmol/L | [facility] | | | | | | [...] + | [facility] | [address] | [place] | [phone] | | [facility] | | [address] | | | - LABORATORY | | [...] (H) | 7 - 18 mg/dL | [facility] | | | | | | [facility] | | | | | | MEDICAL | | | | | | CENTER - | | | | | | LABORATORY | | + + + + + + | Creatinine | 6.72 (H) | 0.60 - 1.30 | [facility] | | | | | mg/dL | [...] mL/min/1.73m2 | [facility] | | | [facility] | RATE,ESTIMATED | | MEDICAL | | | | mL/min/1.27o4Hutc than | | CENTER - | | [...] [address] | [place] | [phone] | | [facility] | | [address] | | | - LABORATORY | | [...] + | [facility] [facility] | [address] | [place] | [phone] | | [facility] | | [address] | | | - LABORATORY | | [...] | | | | | ineffective use [place] 10/325 if | | | | | [...] | | | | | | | 4071-3514 Use NIGHT DOSE for | | | | | | | doses scheduled: HS, 3AM, | | | | | | | Nighttime 9992-1533, | | | | | | + [...] | 1 tablet | | | | [facility]) tablet 1 tablet 1 | | [...]
--- OUTSIDE RECORDS SUMMARY | ~2020-03-04 | XMS | Encounter Summary ---
Demographics + + + | Address | [address] | | | [place] [address] | + + + | Home Phone [...] [facility] | [...] Team Providers + +------+ + | Care Jewel Gauger Name | Role | Phone | + [...] | NEPHROLOGY [address] | [address] | | | | | [address] | [place] [address] [place] | | | | | [place] | [place] [address] | | | | | [address] | [phone] | | | | | [phone] | | | +--------+ + + + [...]
--- OUTSIDE RECORDS SUMMARY | ~2020-03-04 | XMS | Encounter Summary ---
Demographics + + + | Address | [address] | | | [place] [address] | + + + | Home Phone [...] | Organization | [facility] [...] Team Providers + +------+ + | Care Doughmaker Name | Role | Phone | + [...] | renal | PA-C 2229 | [address] | | | | | disease | NW | [place], [place] | | | | | ([facility]ERLY [facility]) | [place] | 100 [facility] | | | | | Procedures | [address] | [place] | | | | | [place] ESRD | [place], | [address] Phone: | | | | | RELATED SVC | [place] | [phone] | | | | | MONTHLY | [address] | Fax: | | | | | 20&/> YR OLD | Phone: | [phone] | | | | | 4/> VISITS | [phone] | | | | | | dialysis | Fax: | | | | | | | [phone] | | + +--------+ + + + [...] | [address] | [place], [place] [address] | (Primary Dx) | | | | [place], [place] | [place] | | | | | [address] | [address] | | | | | [phone] | | | +--------+ + + + [...] YO male who was discharg ed from [facility] on IV ceftazidime/bank via PICC line [...] mouth 2 times daily. 60 tablet B Rsvfuir-U-Gwbna Acid (OLEG-TEQUILA RX) 1 MG TABS Take [...] Q Sun and Sunday, after HD, by [place], through 10/18/18. Indications: Acute Bone Infection that [...] at his office. Heidi Orozco DO CC: [facility] Toby Schuster DPM documented in thi s encounter Plan of Treatment Not on filedocumented as of this encounter Visit Diagnoses + + | Diagnosis | + + | End stage renal disease (HCC) - Primary End stage renal disease | + + documented in this encounter"
--- OUTSIDE RECORDS SUMMARY | ~2020-03-04 | XMS | Encounter Summary ---
Demographics + + + | Address | [address] | | | [place] [address] | + + + | Home Phone [...] + + | Organization | [facility] | | | and [...] Team Providers + +------+ + | Care Search Marketing Specialist Name | Role | Phone | + +------+ + PCP | Unavailable | + +------+ + Reason for Visit +--------+ + | Reason | Comments | +--------+ + | Other | | +--------+ + Encounter Details +--------+ + + + + | Date | Type | Department | Care Team | Description | +--------+ + + + + | 05/07/ | Telephone | [facility] [place] | Lexi Kuo W, | Other | | 2013 | | NEPHROLOGY [address] | MD [address] | | | | | [address] | [place] [address] [place] | | | | | [place], [place] | [place] [address] | | | | | [address] | [phone] | | | | | [phone] | | | +--------+ + + + [...]
--- OUTSIDE RECORDS SUMMARY | ~2020-03-04 | XMS | Encounter Summary ---
Demographics + + + | Address | [address] | | | [place] [address] | + + + | Home Phone [...] | Organization | [facility] | | [...] Team Providers + +------+ + | Care Bench Hand Name | Role | Phone | + +------+ + PCP | Unavailable | + +------+ + Encounter Details +--------+ + + + + | Date | Type | Department | Care Team | Description | +--------+ + + + + | 07/01/ | Hospital | [facility] | Uche Orozco | | | 2012 - | Encounter | MED CTR MED ONC | M, DO [address] | | | | | [address] [place] | [place], [place] [address] | | | 07/03/ | | [place] [address] | [place] | | | 2012 | | [phone] | [address] | | | | | | | [...] Uche Orozco DO - 07/03/2013 7:07 [place] [address] Patient Name: CELSO CARO Provider: Uche Orozco DO Unit #: [id number] Location : [facility] : 1960 ADMISSION DATE: 07/01/2013 DISCHARGE DATE: [...] in the next 10 days at the [facility], [place], [place]. DISCHARGE MEDICATIONS 1. Tylenol one q.6h. [...] and Hectorol will be given at the [facility]. He will be on a Fzhejx-Hkzbcrdrf-R riday outpatient schedule there. I greatly appreciate Dr. Artem Angelo's help with his dialysis access. His erythema of the skin and his drainage have improved. The wound is open and healing. He is up walking around now. He has been afebrile the last 48 hours. He will be receiving IV c eftazidime plus lower dose gentamicin with his outpatient dialysis at the [facility]. All together, a total of 55 minutes was spent completing this discharge. DICTATED BY: Uche Orozco DO Nephrology JOB #: [id number] EXT JOB #:[id number] cc: TERRY Stiles MD [facility], [place], [place] <<Signature on File>> Uche Orozco, 07/10/13 1201 < documented in t his encounter Medications at Time of Discharge + + + +---------+ + + | Medication | Sig | Dispensed | Refills | Start | End Date | | | | | | Date | | + + + +---------+ + + | B Ngkxldz-N-Fhhdj | Take 1 mg by mouth | [...] [address] | [place] | [phone] | | [facility] | | [address] | | | - LABORATORY | | | | + + + + + | [facility] | [address] | [place] | | | [facility] | | [address], [facility] | | | [...] + | [facility] | [address] | [place], [place] | [phone] | | [facility] | | [address] | | | - LABORATORY | | | | + + + + + | [facility] | [address] | [place], [place] | | | [facility] | | [address] [place] [address] | | | - LABORATORY | | [...] + | [facility] | [address] | [place] | [phone] | | [facility] | | [address] | | | - LABORATORY | | | | + + + + + | [facility] | [address] | [place] | | | [facility] | | [address], [facility] | | | [...] | | | POC | | | [facility] | | | | | | [...] + | [facility] | [address] | [place], [place] | [phone] | | [facility] | | [address] | | | - LABORATORY | | | | + + + + + | [facility] | [address] | [place] | | | [facility] | | [address], [facility] | | | [...] + | [facility] [facility] | [address] | [place], [place] | [phone] | | [facility] | | [address] | | | - LABORATORY | | | | + + + + + | [facility] | [address] | [place], [place] | | | [facility] | | [id number] [place] [address] | | | - LABORATORY | | | | + + + + + XR Chest AP Portable (07/02/2013 4:46 PM PDT) + + | Specimen | + + | | + + + + + | Narrative | Performed At | + + + | [facility] | [place] | | Department [address] [place] | [facility] | | [ rep ct street1+2] [ rep ct [facility] [place] | | st zip] Signed | - IMAGING | | | | | Patient Name: CASE,CELSO HERNANDEZ Physician: | | | JANET : 1960 Age: 53 Sex: M Unit #: [id number] | | | Exam Date: 07/02/13 Location: [address] [place] [address] | | | Report #: [id number] Page: | | | %(RAD)RES..mtdd.print.filter("pg") of %(RAD) | | | RES..mtdd.print.filter("tpg") | | | | | | Accession Number: [id number] | | | CHEST PORTABLE CLINICAL HISTORY: [...] | | | Transcribed Date/Time: 07/02/2013 17:31 Creative Perfumer: | | | MR.CS <<Signature on File>> | | | Donovan | | | MD Irwin07/02/13 4019 <Electronically signed by Donovan Gayle MD> | | | Donovan Gayle MD 07/02/13 9026 Creative Perfumer: Viddlershemar | | | Yoiiulqrgpulo93/25/13 1365 Artem Angelo MD | | + + + + + + + + | Performing | Address | City/State/Zipcode | Phone Number | | Organization | | | | + + + + + | [facility] | [address] | [place] | [phone] | | [facility] | | [address] | | | - IMAGING | | [...] POC | | | [facility] | | | | | [...] + | [facility] | [address] | [place], [place] | [phone] | | [facility] | | [address] | | | - LABORATORY | | | | + + + + + | [facility] | [address] | [place], [place] | | | [facility] | | [address], [facility] | | | [...] + | [facility] | [address] | [place] | [phone] | | [facility] | | [address] | | | - LABORATORY | | | | + + + + + | [address] | [address] | [place], [place] | | | [facility] | | [address] | | | - LABORATORY | [...] 87 | 70 - 109 mg/dL | [facility] | | | | | | [facility] | | | | | [...] 6.92 (H) | 0.60 - 1.30 | [facility] | | | | | mg/dL | [facility] | | | | | | MEDICAL | | | | | | CENTER - | | | | | | LABORATORY | | + + + + + + | Estimated | 8 (L)Comment: For | >60 mL/min/A | [facility] | | | GFR | -Americans, [...] + | [facility] | [address] | [place], [place] | [phone] | | [facility] | | [address] | | | - LABORATORY | | | | + + + + + | [facility] | [address] | [place], [place] | | | [facility] | | [address], [facility] | | | [...] [address] | [place] | [phone] | | [facility] | | [address] | | | - LABORATORY | | | | + + + + + | [facility] [facility] | [address] | [place], [place] | | | [facility] | | [address] | | | - LABORATORY | [...] + | [facility] | [address] | [place], [place] | [phone] | | [facility] | | [address] | | | - LABORATORY | | | | + + + + + | [facility] | [address] | [place], [place] | | | [facility] | | [id number] [place] [address] | | | - LABORATORY | | [...] + | [facility] | [address] | [place] | [phone] | | [facility] | | [address] | | | - LABORATORY | | | | + + + + + | [facility] | [address] | [place] | | | [facility] | | [address] | | | - LABORATORY | [...] + | [facility] | [address] | [place], [place] | [phone] | | [facility] | | [address] | | | - LABORATORY | | | | + + + + + | [facility] | [address] | [place] | | | [facility] | | [address] [place] [address] | | | - LABORATORY | | [...] [address] | [place] | [phone] | | [facility] | | [address] | | | - LABORATORY | | | | + + + + + | [facility] | [address] | [place] | | | [facility] | | [address] | | | - LABORATORY | [...] + | [facility] | [address] | [place] | [phone] | | [facility] | | [address] | | | - LABORATORY | | | | + + + + + | [facility] | [address] | [place] | | | [facility] | | [address], [facility] | | | [...] POC | | | [facility] | | | | | [...] + | [facility] | [address] | [place] | [phone] | | [facility] | | [address] | | | - LABORATORY | | | | + + + + + | [facility] | [address] | [place] | | | [facility] | | [address], [facility] | | | - LABORATORY | | | | + + + + + documented in this encounter Visit Diagnoses Not on filedocumented in this encounter
--- OUTSIDE RECORDS SUMMARY | ~2020-03-04 | XMS | Encounter Summary ---
Demographics + + + | Address | [address] | | | [place] [address] | + + + | Home Phone [...] | Organization | [facility] | | | [...] Team Providers + +------+ + | Care Technology Project Manager Name | Role | Phone | [...] [address] | [address], [place] | | | | | [place] | [address] [place] | | | | | [address] | [address] | | | | | [phone] | | | +--------+ + + + [...]
--- OUTSIDE RECORDS SUMMARY | ~2020-03-04 | XMS | Encounter Summary ---
Demographics + + + | Address | [address] | | | [place] [address] | + + + | Home Phone [...] | [facility] | | [...] Team Providers + +------+ + | Care Electric Blanket Wirer Name | Role | Phone | + [...] NEPHROLOGY [address] | MD [address] | | | | | [address] | [place] [address] [place] | | | | | [place], [place] | [place] [address] | | | | | [address] | [phone] | | | | | [phone] | | | +--------+ + + + [...]
--- OUTSIDE RECORDS SUMMARY | ~2020-03-04 | XMS | Encounter Summary ---
Demographics + + + | Address | [address] | | | [place] [address] | + + + | Home Phone [...] Organization | [facility] | | [...] Team Providers + +------+ + | Care Cafeteria Aide Name | Role | Phone | [...] | | | disease | NW | [place], [place] | | | | | ([facility]) | [place] | [address] | | | | | Procedures | [address] | [place] | | | | | IN OFFICE | [facility] | [address] Phone: | | | | | OUTPATIENT | [place] | [phone] | | | | | VISIT 25 | [address] | Fax: | | | | | MINUTES | Phone: | [phone] | | | | | dialysis | [phone] | | | | | | | Fax: | | | | | | | [phone] | | +--------+--------+ + + + + [...] | [address] | [place], [place] | (Primary Dx) | | | | [place] | [place] | | | | | [address] | [address] | | | | | [phone] | | | +--------+ + + + [...] by mouth Daily. 30 tablet 5 B Eknecfp-T-Xxnir Acid (OLEG-TEQUILA RX) 1 MG TABS Take [...] by the most recent KT/V. 2. Hypertension-- [facility], [place], [place]; the BP appears well controlled from [...] Will recheck him in 2 weeks. : [facility] Monica Cornejo MD documented in thi s encounter Plan of Treatment Not on filedocumented as of this encounter Visit Diagnoses + + | Diagnosis | + + | End stage renal disease (HCC) - Primary End stage renal disease | + + documented in this encounter"
--- OUTSIDE RECORDS SUMMARY | ~2020-03-04 | XMS | Encounter Summary ---
Demographics + + + | Address | [address] | | | [place] [address] | + + + | Home Phone [...] Author | [facility] | | | and Scarana | + + + | Organization | [facility] | | [...] Team Providers + +------+ + | Care Bit Shaver Name | Role | Phone | + [...] [address] | [address], [place] | V ([facility]) (Primary | | | | [place], [place] | [address] [place] | Dx); Type II or | | | | [address] | [address] | unspecified type | | | | [phone] | | diabetes mellitus | | | | | | with renal | | | | | | manifestations, | | | | | | uncontrolled ([facility]); | | | | | | Unspecified | | | | | | essential | | | | | | hypertension; | | | | | | Secondary | | | | | | hyperparathyroidism | | | | | | (of renal origin) | | | | | | ([facility]); Right renal | | | | | [...] lysis. Continue furosemide daily as discussed. Please corn picker sodium bicarb at [facility] pharmacy, as discussed. Take TWICE DAILY consist ently. 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 He reports robust appetite, without nausea, vomiting [...] may need to be evaluated by a fruit room hand in the future. His most recent liver [...] dialysis, medication education. CC: Frances Obrien MD [facility] Review of Systems Physical Exam documented i [...] | 1.020 | | | | | Cash, | | | | | | UA, [...] kidney disease (CKD), stage V ([facility]) - Primary Chronic kidney disease, Stage [...]
--- OUTSIDE RECORDS SUMMARY | ~2020-03-04 | XMS | Encounter Summary ---
Demographics + + + | Address | [address] | | | [place] [address] | + + + | Home Phone [...] | [facility] | | | and [place] [...] Team Providers + +------+ + | Care Backup Sawyer Name | Role | Phone | + [...] | | EVAL/TREAT | A[address] [place] | ASSISTANT PROFESSOR SURGICAL TECHNOLOGY [address] | | | | | | [place], [place] | [address], | | | | | | [address] | [address] | | | | | | Phone: | [place], | | | | | | [phone] | [place] [address] | | | | | | Fax: | Phone: | | | | | | [phone] | [phone] | | | | | | | Fax: | | | | | | | [phone] | +--------+--------+ + + + + Encounter [...] [address] | [address], [place] | V (HCC) (Primary | | | | [place], [place] | [address] [place] | Dx); Peritoneal | | | | [address] | [address] | dialysis catheter | | | | [phone] | | exit site infection | | [...] catheter removed. Call made to Dr. Miranda, java consultant igor plaza. Discussed this with patient, including [...] bactere carlito or peritonitis. He will be java consultant throughout the weekend in case pt worsens. Preliminary PD exit site culture shows pseudomonas and lactose fermenting GNB. Antibiotics changed from dicloxacillin to cipro and augmentin. Pt had not yet picked up the initial anti biotic. I explained culture results and strongly encouraged patient to draft roller picker antibiotics a nd start them TODAY. Full plan was discussed extensively with patient over the phone. New me dication list faxed to [facility] pharmacy and [place], pharmacist there will give it to jeffy weston along with all of his new medications. Paperwork in progress for admission to [facility] dialysis unit next Sunday. Dr. Lobo i s aware of plan and is java consultant for nephrology over the weekend. 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 N o nausea, vomitting, fever, chills, abdominal pain, chest pain, shortness of breath or any o ther complaints. He reports to taking all of his medications regularly. Patient Active Problem List Diagnosis Date Noted [facility] 06/25/2013 Unknown Secondary hyperparathyroidism (of renal origin) [...] for him. We discussed hemodialysis and the ga ed for access. He understands that a tunneled chest catheter will need to be placed because he does not have a fistula. He was instructed on care of tunneled chest catheter. Also the P D catheter will need to come out soon due to the infection. He will dialyze at [facility], likely next Sunday or Sunday. --Educated him about hyperkalemia and advised a low potassium diet. Also will increase fu rosemide to 80 mg daily to help with this. --Will increase sodium bicarb to 1300 mg twice daily but patient is ultimately needing d ialysis to correct acidosis. 2. INFECTION OF PD EXIT SITE This is cultured and sent to [facility] lab. It is cleaned and dressed by PD staff, with gentami vasiliy cream. Pt is educated about how to correctly take care of exit site until catheter can b e removed. Will plan on removal of PD catheter soon. Dr. Angelo is out until early next week so will discuss with java consultant surgeon. No sign of peritonitis and patient does not appear tox ic. He is educated extensively about signs of peritonitis or more severe infection. He is in structed to follow up right away if he notices any of these signs. --Dicloxacillin 500 mg po QID x 10 days, faxed to [facility] pharmacy. 3. HYPERTENSION Blood pressure under [...] may need to be evaluated by a meat cutting teacher in the future. His most recent liver [...] dialysis, medication education. CC: Frances Obrien MD [facility], [place], [facility] Review of Systems Physical [...] | | | | PDT | V ([facility]) Type II or | results section. | | | | | unspecified type | | | | | | diabetes mellitus | | | | | | with renal | | | | | | manifestations, | | | | | | uncontrolled ([facility]) | | + +--------+ + [...] | 1.020 | | | | | [place], | | | | | | UA, [...]
--- OUTSIDE RECORDS SUMMARY | ~2020-03-04 | XMS | Encounter Summary ---
Demographics + + + | Address | [address] | | | [place] [address] | + + + | Home Phone [...] + | Organization | [facility] | | [...] Providers + +------+ + | Care Supervisor Inventory Merchandising Name | Role | Phone | + [...] + + | 09/22/ | Hospital | [facility] | Kori Ross MD | Severe sepsis ([facility]); | | 2019 - | Encounter | [facility] | [address] | Atrial fibrillation | | | | [address] [place] | [place], [place] | with RVR ([facility]); End | | 09/26/ | | [place] [address] | [address] | stage renal disease | | 2019 | | [phone] | | ([facility]); Diabetic | | | | | Asim Lao MD | ulcer of left | | | | | [address] | midfoot associated | | | | | [place], [place] | with type 2 diabetes | | | | | [address] | mellitus, with | | | | | | other ulcer severity | | | | | | ([facility]); Sepsis, due | | | | | | to unspecified | | | | | | organism, | | | | | | unspecified whether | | | | | | acute organ | | | | | | dysfunction present | | | | | | ([facility]); Pneumonia of | | | | | [...] Terrell DO - 09/26/2019 9:45 AM PST [place], [place] HOSPITALIST DISCHARGE SUMMARY Pt. Name/Age/: Celso [...] hronic R foot ulcer, who presented to [facility] not feeling well for several da ys. [...] He was given IVF and dilt at [facility] [place]. BP improved - cont metoprolol - Continue [...] is your new ass igned doctor at [facility] Contact information: [address] [place] [address] Condition: Patient being discharged with condition improved Diet:DM and renal Greater than 30 minutes were spent on discharge and coordination of post-hospital care. Electronically signed by: Clem Terrell DO, 09/26/2019 9:45 AM [facility] Portions of this chart may have been created with Ebook Glue voice recognition software. Occasi onal wrong-word or [...] + + +---------+ + + | B [id number] | Take 1 mg by mouth | [...] Orozco, DO - 09/25/2019 9:12 PM PST [facility] [address] [place] [address] PROGRESS NOTE Pt. Name/Age/: Celso Sutton Case 59 y.o. 1960 Med. Record Number: [id number] Date of admission: 09/22/2019 NEPHROLOGY HPI - [...] -- 1.5 Clostridioides difficile NAAT Reflex Order: [id number] - Part of Panel Order [id number] Status: Final result Visible to patient: No (Not Released) Next appt: 09/29/2019 at 09:15 AM in Nephrology (Uche Orozco, ) Specimen Information: Stool Ref Range & Units 1d ago C. difficile, Interp Negative Negative Comment: No Toxigenic C. difficile detected. Consider other causes of Diarrhea. Repeat test ing should not be performed within 7 days. C. difficile, NAAT Negative Resulting Agency [facility] Specimen Collected: 09/24/19 15:34 IMPRESSION 1. [...] 3. Agree with Imodium , clear diet. [facility] Clem Gann DO - 09/25/2019 7:23 AM PST [facility] [place] HOSPITALIST PROGRESS NOTE Patient: Celso Caro : 1960: Age: 59 y.o. MedRec: [id number] Admission date: 09/22/2019 Hospital day # : [...] hronic R foot ulcer, who presented to [facility] not feeling well for several da ys. [...] He was given IVF and dilt at [facility]. BP improved - cont metoprolol at lower [...] mg 1,000 mg Oral Q4H PRN Kori oRss MD cefTRIAXone (ROCEPHIN) 1 g in sodium [...] 100 mg 100 mg Oral BID PRN oKri Ross MD doxercalciferol (HECTOROL) capsule 2.5 mcg [...] Clostridioides difficle NAAT reflex to Tox Ag [[id number]] Collected: 09/24/19 1534 Order Status: Completed Lab Status: Final result Updated: 09/24/191816 Specimen: Stool Narrative: The following orders were created for panel order Clostridioides difficle NAAT reflex to T ox Ag. Procedure Abnormality Status --------- ------ Clostridioides difficile...[[id number]] Final result Please view results for these tests on the individual orders. Clostridioides difficile NAAT Reflex [[id number]] Collected: 09/24/19 1534 Order Status: Completed Lab Status: Final result Updated: 09/24/191816 Specimen: Stool C. difficile, Interp Negative Comment: No Toxigenic C. difficile detected. Consider other causes of Diarrhea. Repeat te sting should not be performed within 7 days. C. difficile, NAAT Negative Culture, Blood [[id number]] Collected: 09/23/19 0008 Order Status: Completed Lab Status: Preliminary result Updated: 09/23/19 1211 Specimen: Peripheral Blood Culture No growth: Monitored continually by instrument for 5 days Influenza A and B RNA, NAAT [[id number]] (Normal) Collected: 09/23/19 0000 Order Status: Completed Lab Status: Final result Updated: 09/23/19 0033 Specimen: Tissue from Nasopharynx Influenza A PCR Negative Influenza B PCR Negative Respiratory pathogen panel, NAAT [[id number]] (Normal) Collected: 09/23/19 0000 Order Status: Completed Lab Status: Final result Updated: 09/23/19 0328 Specimen: Tissue from Nasopharynx Parainfluenza 1 Not Detected Adenovirus Not Detected Human Metapneumovirus Not Detected Rhinovirus/Enterovirus Not Detected Parainfluenza 3 Not Detected Culture, Blood [[id number]] Collected: 09/22/19 2359 Order Status: Completed Lab Status: Preliminary result Updated: 09/23/19 1221 Specimen: Peripheral Blood Culture No growth: Monitored continually by instrument for 5 days Culture, MRSA [[id number]] (Normal) Collected: 09/22/19 2322 Order Status: Completed [...] bilaterally. 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 Occasi onal wrong-word or sound-alike substitutions may have occurred due to the inherent hernandez itations of voice recognition software. Please read the chart carefully and recognize, using context, where these substitutions have occurred cUhe Guallpa DO - 09/24/2019 9:13 PM PST [facility] [address] [place] [address] PROGRESS NOTE Pt. Name/Age/: Celso Sutton Case 59 y.o. 1960 Med. Record Number: [id number] Date of admission: 09/22/2019 NEPHROLOGY HPI - [...] up metoprolol to control his vent. rate. [facility] Clem Gann DO - 09/24/2019 7:11 AM PST [facility] [place] HOSPITALIST PROGRESS NOTE Patient: Celso Caro : 1960: Age: 59 y.o. MedRec: [id number] Admission date: 09/22/2019 Hospital day # : [...] hronic R foot ulcer, who presented to [facility] not feeling well for several da ys. [...] He was given IVF and dilt at [facility]. BP improved - resume metoprolol at lower [...] Procedure Component Value Units Date/Time Culture, Blood [[id number]] Collected: 09/23/19 0008 Order Status: Completed Lab Status: Preliminary result Updated: 09/23/19 1211 Specimen: Peripheral Blood Culture No growth: Monitored continually by instrument for 5 days Influenza A and B RNA, NAAT [[id number]] (Normal) Collected: 09/23/19 0000 Order Status: Completed Lab Status: Final result Updated: 09/23/19 0033 Specimen: Tissue from Nasopharynx Influenza A PCR Negative Influenza B PCR Negative Respiratory pathogen panel, NAAT [[id number]] (Normal) Collected: 09/23/19 0000 Order Status: Completed Lab Status: Final result Updated: 09/23/19 0328 Specimen: Tissue from Nasopharynx Parainfluenza 1 Not Detected Adenovirus Not Detected Human Metapneumovirus Not Detected Rhinovirus/Enterovirus Not Detected Parainfluenza 3 Not Detected Culture, Blood [[id number]] Collected: 09/22/19 2359 Order Status: Completed Lab Status: Preliminary result Updated: 09/23/19 1221 Specimen: Peripheral Blood Culture No growth: Monitored continually by instrument for 5 days Culture, MRSA [[id number]] Collected: 09/22/19 2322 Order Status: Sent Lab [...] nontender Pych: normal mood and affect 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 Occasi onal wrong-word or sound-alike substitutions may have occurred due to the inherent hernandez itations of voice recognition software. Please read the chart carefully and recognize, using context, where these substitutions have occurred Merari Young RN - 09/07 6:34 PM CFO40pb iv dilt given per md order, dilt drip started at 5mg per hour by professor of floriculture HR low 100's bp 106/63 S>O at bedside Electronically signed by Merari Lima RN at 2018 6:36 PM Merari Young RN - 09/23/2019 5:05 PM PSTHR sustained 100-120's md notifie d pt asymptomatic Clem Gann DO - 09/23/2019 7:23 AM PSTFormatting of this note might be different from the orig inal. [facility] [place] HOSPITALIST PROGRESS NOTE Patient: Celso Caro : 1960: Age: 59 y.o. MedRec: [id number] Admission date: 09/22/2019 Hospital day # : [...] hronic R foot ulcer, who presented to [facility] not feeling well for several da ys. [...] He was given IVF and dilt at [facility]. - Holding on more dilt and metoprolol [...] Inferior leads Confirmed by JEAN-PAUL YOUNG, ELEANOR ([id number]) on 09/23/2019 6:18:42 AM Micro results Microbiology Results (72 hrs) Procedure Component Value Units Date/Time Culture, Blood [[id number]] Collected: 09/23/19 0008 Order Status: Sent Lab Status: In process Updated: 09/23/19 0008 Specimen: Peripheral Blood Influenza A and B RNA, NAAT [[id number]] (Normal) Collected: 09/23/19 0000 Order Status: Completed Lab Status: Final result Updated: 09/23/19 0033 Specimen: Tissue from Nasopharynx Influenza A PCR Negative Influenza B PCR Negative Respiratory pathogen panel, NAAT [[id number]] (Normal) Collected: 09/23/19 0000 Order Status: Completed Lab Status: Final result Updated: 09/23/19 0328 Specimen: Tissue from Nasopharynx Parainfluenza 1 Not Detected Adenovirus Not Detected Human Metapneumovirus Not Detected Rhinovirus/Enterovirus Not Detected Parainfluenza 3 Not Detected Culture, Blood [[id number]] Collected: 09/22/19 2359 Order Status: Sent Lab Status: In process Updated: 09/23/197 Specimen: Peripheral Blood Culture, MRSA [[id number]] Collected: 09/22/19 2322 Order Status: Sent Lab [...] rally Pych: normal mood and affect 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 Occasi onal wrong-word or [...] e renal disease) on dialysis ([facility]) (1999), Heart murmur, Hepatitis C (2006), Hyperlipidemia, Hypertension (2001), Obesity, Paroxysmal atrial flutter (HCC), Recurrent UTI, and Vitamin D deficiency. Allergies Amlodipine besylate; Fenofibrate; and Metformin Historical Vancomycin dosing (previous & current encounter): vancomycin 1 gram x1 given on 09/22/19 @2105 prior to transfer to [facility] Min/Max Temp past 24 hours:Temp Av [...] Procedure Component Value Units Date/Time Culture, Blood [[id number]] Collected: 09/23/197 Order Status: Sent Lab Status: In process Updated: 09/23/197 Specimen: Peripheral Blood Influenza A and B RNA, NAAT [[id number]] (Normal) Collected: 09/23/19 0000 Order Status: Completed Lab Status: Final result Updated: 09/23/1932 Specimen: Tissue from Nasopharynx Influenza A PCR Negative Influenza B PCR Negative Respiratory pathogen panel, NAAT [[id number]] Collected: 09/23/19 0000 Order Status: Sent Lab Status: In process Updated: 09/23/19 000 Specimen: Tissue from Nasopharynx Culture, Blood [[id number]] Collected: 09/22/19 2359 Order Status: Sent Lab Status: In process Updated: 09/23/19 000 Specimen: Peripheral Blood Culture, MRSA [[id number]] Collected: 09/22/192321 Order Status: Sent Lab Status: [...] St | [place] | [phone] | | [facility] | | [address] | | | - LABORATORY | | [...] 10.33 ()Comment: | 0.70 - 1.30 | [facility] | | | | Critical Result called [...] mL/min/1.73m2 | [facility] | | | [place]AN | RATE,ESTIMATED | | MEDICAL | | | | mL/min/1.20l4Prtb than | | CENTER - | | [...] St | [place] | [phone] | | [facility] | | [address] | | | - LABORATORY | | [...] + | [facility] | [address] | [place] | [phone] | | [facility] | | [address] | | | - LABORATORY | | [...] St | [place] | [phone] | | [facility] | | [address] | | | - LABORATORY | | [...] [address] | [place] | [phone] | | [facility] | | [address] | | | - LABORATORY | | [...] + | [facility] | [address] | [place] | [phone] | | [facility] | | [address] | | | - LABORATORY | | [...] | | LABORATORY | | | | Veknatesh Henson. | | | | + + + + + + | eGFR if not | 6 (L)Comment: GLOMERULAR | >=60 | [facility] | | | | FILTRATION | mL/min/1.73m2 | [facility] | | | [place]SIAN | RATE,ESTIMATED | | MEDICAL | | | | mL/min/1.23q4Eqtp than | | CENTER - | | [...] + | [facility] | [address] | [place] | [phone] | | [facility] | | [address] | | | - LABORATORY | | [...] ST. | [address] | [place] | [phone] | | [facility] | | [address] | | | - LABORATORY | | [...] + | [facility] | [address] | [place] | [phone] | | [facility] | | [address] | | | - LABORATORY | | [...] + | [facility] | [address] | [place], [place] | [phone] | | [facility] | | [address] | | | - LABORATORY | | [...] | | POC | | | [facility] | | | | | | MEDICAL | | | | | | CENTER - | | | | | | LABORATORY | | + +---------+ + + + + + | Specimen | + + | Blood | + + + + + + + | Performing | Address | City/State[facility] | Phone Number | | Organization | | | | + + + + + | [facility] | [address] | [place] | [phone] | | [facility] | | [address] | | | - LABORATORY | | [...] [address] | [place] | [phone] | | [facility] | | [address] | | | - LABORATORY | | [...] St | [place] | [phone] | | [facility] | | [address] | | | - LABORATORY | | [...] + | [facility] | [address] | [place] | [phone] | | [facility] | | [address] | | | - LABORATORY | | [...] mL/min/1.73m2 | [facility] | | | [place] | RATE,ESTIMATED | | MEDICAL | | | | mL/min/1.22q3Jjsg than | | CENTER - | | [...] + | [facility] | [address] | [place] | [phone] | | [facility] | | [address] | | | - LABORATORY | | [...] | Immature | | K/uL | [facility] | | | Granulocyte | | | [...] St | [place] | [phone] | | [facility] | | [address] | | | - LABORATORY | | [...] St | [place] | [phone] | | [facility] | | [address] | | | - LABORATORY | | [...] [address] | [place] | [phone] | | [facility] | | [address] | | | - LABORATORY | | [...] [address] | [place] | [phone] | | [facility] | | [address] | | | - LABORATORY | | [...] St | [place] | [phone] | | [facility] | | [address] | | | - LABORATORY | | [...] + + | Performed at: [address] [facility] [address], | REFERENCE LAB | | [place], [place] [id number] Possum Trapper: Darin Odom MD, Phone: | [facility] - [place]ERTA | | [phone] | | + + + + + + + + | Performing | Address | City/State/Zipcode | Phone Number | | Organization | | | | + + + + + | REFERENCE LAB | [address] | [place], [place] | [phone] | | [facility] | [facility] | [address] | | + + + + + [...] [address] | [place] | [phone] | | [facility] | | [address] | | | - LABORATORY | | [...] MD | | | | | | ([id number]) on 09/23/2019 | | | | | [...] ST. | [address] | [place], [place] | [phone] | | [facility] | | [address] | | | - LABORATORY | | [...] mL/min/1.73m2 | [facility] | | | [place]SI[place] | | | MEDICAL | | | [...] + | [facility] | [address] | [place] | [phone] | | [facility] | | [address] | | | - LABORATORY | | [...] | | Lymphocytes | | | [facility] | | [...] [address] | [place] | [phone] | | [facility] | | [address] | | | - LABORATORY | | [...] St | [place] | [phone] | | [facility] | | [address] | | | - LABORATORY | | [...] [address] | [place] | [phone] | | [facility] | | [address] | | | - LABORATORY | | [...] St | [place] | [phone] | | [facility] | | [address] | | | - LABORATORY | | [...] [address] | [place] | [phone] | | [facility] | | [address] | | | - LABORATORY | | [...] St | [place] | [phone] | | [facility] | | [address] | | | - LABORATORY | | [...] + | [facility] | [address] | [place] | [phone] | | [facility] | | [address] | | | - LABORATORY | | [...] in | Critical Result called | | [facility] | | | | [...] St | [place] | [phone] | | [facility] | | [address] | | | - LABORATORY | | [...] ST. | [address] | [place], [place] | [phone] | | [facility] | | [address] | | | - LABORATORY | | [...] + + | Atrial fibrillation with RVR ([facility]) Atrial fibrillation | + + | End stage renal disease ([facility]) End stage renal disease | + + | Diabetic ulcer of left midfoot associated with type 2 diabetes mellitus, with other | | ulcer severity ([facility]) | + + | Pneumonia of left [...] | | | | | NPO, Daytime [id number] Use NIGHT | | | | | | | DOSE for doses scheduled: | | | | | | | HS, 3AM, Nighttime [id number] If | | | | | | [...] | | | over 6 Hours, ONCE, [facility] 09/25/19 | | AM PST | | [...]
--- OUTSIDE RECORDS SUMMARY | ~2020-03-04 | XMS | Encounter Summary ---
Demographics + + + | Address | [address] | | | [place] [address] | + + + | Home Phone [...] | Organization | [facility] | | | [...] Team Providers + +------+ + | Care Laser Specialist Name | Role | Phone | [...] NEPHROLOGY [address] | MD [address] | (Asymptomatic) | | | | [address] | [address] [place] | | | | | [place], [place] | [place] [address] | | | | | [address] | [phone] | | | | | [phone] | | | +--------+ + + + [...] PM PDTHEMO progress note manually faxed to [facility], e-faxed to Frances Obrien MD on 03/13/14. Lexi Hollingsworth MD - 02/23/2014 5:46 PM PDT Comprehensive Dialysis Monthly Note Date of visit: 02/23/2014 Dialysis Clinic: [facility] Mode of dialysis: Hemodialysis Dialysis [...] Diagnosis Date Noted End stage renal disease ([facility]) 08/07/2013 Priority: High Note Last Updated: 03/02/2014 ESRD due to diabetic nephropathy. On hemodialysis. Access: Left brachial-cephalic AVF created on 07/28/13. Anemia in ESRD (end-stage renal disease) ([facility]) 12/24/2013 Hypertension 09/22/2013 Preventative health [...] by mouth Daily. 30 tablet 5 B Wsakspr-L-Dcgve Acid (OLEG-TEQUILA RX) 1 MG TABS Take [...]
--- OUTSIDE RECORDS SUMMARY | ~2020-03-04 | XMS | Encounter Summary ---
Demographics + + + | Address | [address] | | | [place] [address] | + + + | Home Phone | | + + + | Preferred Language | Unknown | + + + | Marital Status | Single | + + + | Restorationist Affiliation | Unknown | + + + | Race | or | + + + | Ethnic Group | Not or | + + + Author + + + | Author | [facility] | + + + | Organization | [facility] | + + + | [...] Team Providers + +------+ + | Care Quarter Inspector Name | Role | Phone | [...] update) | | | | A[address] [place], | [place], [place] | | | | | [place] [address] | [address] | | | | | [phone] | | | +--------+ + + + [...]
--- OUTSIDE RECORDS SUMMARY | ~2020-03-04 | XMS | Encounter Summary ---
Demographics + + + | Address | [address] | | | [place] [address] | + + + | Home Phone [...] | Organization | [facility] | [...] Team Providers + +------+ + | Care Waste Water Plant Operator Name | Role | Phone | [...] [address] | [address], [place] | | | | | [place] | [address] [place] | | | | | [address] | [address] | | | | | [phone] | | | +--------+ + + + [...]
--- OUTSIDE RECORDS SUMMARY | ~2020-03-04 | XMS | Encounter Summary ---
Demographics + + + | Address | [address] | | | [place] [address] | + + + | Home Phone [...] Organization | [facility] | | | and [...] Providers + +------+ + | Care Industrial Engineering Manager Name | Role | Phone | [...] | [address] | [place], [address] | | | | | [place] | [place] | | | | | [address] | [address] | | | | | [phone] | | | +--------+ + + + [...] 1. Will continue the current Rx. 2. COLOR CHECKER ROVING OR YARN = < 200 at current QB. documented in thi s encounter Plan of Treatment Not on filedocumented as of this encounter Visit Diagnoses Not on filedocumented in this encounter"
--- OUTSIDE RECORDS SUMMARY | ~2020-03-04 | XMS | Encounter Summary ---
Demographics + + + | Address | [address] | | | [place] [address] | + + + | Home Phone [...] + | Organization | [facility] | | [...] Providers + +------+ + | Care Supervisor Weaving Name | Role | Phone | + +------+ + | Marco A Carrasco | PCP | | + +------+ + Encounter Details +--------+ + + + + | Date | Type | Department | Care Team | Description | +--------+ + + + + | 12/31/ | Imaging | TAMMY MACHADO | Provider, | | | 2019 | Exam | [facility] | MD [address] | | | | | IMAGING [address] | Kenji AMAYA | | | | | STEVIE KHAN | [place] [address] | | | | | [place] [address] | | | | | | [phone] | | | +--------+ + + + [...]
--- OUTSIDE RECORDS SUMMARY | ~2020-03-04 | XMS | Encounter Summary ---
Demographics + + + | Address | [address] | | | [place] [address] | + + + | Home Phone [...] + | Organization | [facility] | | | and [place] [...] Team Providers + +------+ + | Care Assistant Professor Of Marine Biology Name | Role | Phone | + [...] | | | disease | NW | [place], [place] | | | | | (HCC) | [place] | [address] [place] | | | | | Procedures | [address] | [place], [place] | | | | | [place] ESRD | [place], | [address] Phone: | | | | | RELATED SVC | [place] | [phone] | | | | | MONTHLY | [address] | Fax: | | | | | 20&/> YR OLD | Phone: | [phone] | | | | | 4/> VISITS | [phone] | | | | | | dialysis | Fax: | | | | | | | [phone] | | + +--------+ + + + [...] | [address] | [place] | (Primary Dx) | | | | [place], [place] | [place], [place] | | | | | [address] | [address] | | | | | [phone] | | | +--------+ + + + [...] DO - 08/04/2019 9:15 AM PDT Subjective: [facility] DIALYSIS NOTE Patient ID: Celso Caro is a 59 y.o. male. 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 Denie s chest pain, BOWEN, or claudication. [...] CKD/MBD--treated with Velphoro, and Hectorol at the [facility], [place], [place]. No outpatient medications have been marked [...] appears stable on the current Rx. : [facility] Toby Schuster [facility] documented in thi s encounter Plan of [...]
--- OUTSIDE RECORDS SUMMARY | ~2020-03-04 | XMS | Encounter Summary ---
Demographics + + + | Address | [address] | | | [place] [address] | + + + | Home Phone [...] Organization | [facility] | | [...] Team Providers + +------+ + | Care Color Specialist Name | Role | Phone | [...] | [address] | [place], [address] | | | | | [place] | [place] | | | | | [address] | [address] | | | | | [phone] | | | +--------+ + + + [...] to Frances starks MD, manually faxed to [facility] [place] on 05/07/14. che Orozco DO - 05/05/2014 4:10 PM PDTForma tting of this note might be different from the original. Subjective: [facility] DIALYSIS NOTE Patient ID: CELSO CARO is a 54 y.o. male. HPI Comments: Monthly dialysis visit for this 54 YO male with ESRD secondar y to diabetic nephropathy, who is seen on outpatient HD at the [facility]. He also has T2DM, requiring insulin, anemia secondary to CKD, hyperlipidemia, Hepatitis C, m orbid obesity and a question of a right renal mass on prior US. He is seen on HD at [facility] with QB 400. 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 He denies chest pain, anorexia or fatigue. Outpatient Prescriptions Marked as Taking for the 03/23/14 encounter (Documentation) with Shaji Orozco DO Medication Sig Dispense Refill aspirin 81 mg EC tablet Take 81 mg by mouth Daily. atorvaSTATin (LIPITOR) 20 mg tablet Take 1 tablet by mouth Daily. 30 tablet 5 B Sjhfvfr-S-Uqfts Acid (OLEG-TEQUILA RX) 1 MG TABS Take [...] or any symptoms at this time. CC: [facility] documented in thi s encounter Plan of Treatment Not on filedocumented as of this encounter Visit Diagnoses Not on filedocumented in this encounter
--- OUTSIDE RECORDS SUMMARY | ~2020-03-04 | XMS | Encounter Summary ---
Demographics + + + | Address | [address] | | | [place] [address] | + + + | Home Phone [...] | Organization | [facility] [...] Team Providers + +------+ + | Care Chair Car Driver Name | Role | Phone | [...] | NEPHROLOGY [address] | [address] | (Primary Dx) | | | | [address] | [address] [place] | | | | | [place] | [place] [address] | | | | | [address] | [phone] | | | | | [phone] | | | +--------+ + + + [...] - 05/07/2014 2:08 PM PDTReceived letter from [facility]. Will schedule CT with contrast to [...]
--- OUTSIDE RECORDS SUMMARY | ~2020-03-04 | XMS | Encounter Summary ---
Demographics + + + | Address | [address] | | | [place] [address] | + + + | Home Phone [...] | Organization | [facility] | | | and [place] [...] Providers + +------+ + | Care Credit Administrator Name | Role | Phone | [...] | | | disease | [address] | [place], [place] | | | | | (HCC) | [place] | [address] [place] | | | | | Procedures | [address] | [place], [place] | | | | | [place] ESRD | [place], | [address] Phone: | | | | | RELATED [place] | [place] | [phone] | | | | | MONTHLY | [address] | Fax: | | | | | 20&/> YR OLD | Phone: | [phone] | | | | | 4/> VISITS | [phone] | | | | | | dialysis | Fax: | | | | | | | [phone] | | + +--------+ + + + [...] | [address] | [place], [address] | (Primary Dx) | | | | [place], [place] | [place], [place] | | | | | [address] | [address] | | | | | [phone] | | | +--------+ + + + [...] seen on the MWF shift at the [facility]. Herman states that he retired from his job with the [employer]. He stat es that he is enjoying spending more time at home with his family. Denies anorexia, hiccups , hyperglycemia or chest pain. He had an admission to [facility] 12/[facility]/2019 for Sirs, fever, right foot ulcer, and rapid A. f ib. He also had additional UF for pulmonary venous congestion. His rate control is improve d and he had a local I&D, debridement at the bedside, by his Veneer Jointer, Dr. Toby Schuster. H e states that [...] CKD/MBD--treated with Velphoro, Sensipar, Hectorol at the [facility]. 7. Outpatient Medications Marked as Taking for the 01/19/20 encounter (Off-Site Visit) with Naveen Orozco, DO Medication Sig Dispense Refill apixaban (ELIQUIS) 5 mg tablet Take 2.5 mg by mouth 2 times daily. B Ytvqajt-N-Xmifw Acid (OLEG-TEQUILA RX) 1 MG TABS Take [...] Hepatitis C-- in remission. 8. Hyperlipidemia-- on long-term statin Rx. 9. Transplantation-- inactivated until the [...] Electronically signed by: Uche Orozco DO CC: [facility] Toby Aguilarakhil HEIDI documented in thi s encounter Plan of Treatment Not on filedocumented as of this encounter Visit Diagnoses + + | Diagnosis | + + | End stage renal disease (HCC) - Primary End stage renal disease | + + documented in this encounter"
--- OUTSIDE RECORDS SUMMARY | ~2020-03-04 | XMS | Encounter Summary ---
Demographics + + + | Address | [address] | | | [place] [address] | + + + | Home Phone | | + + + | Preferred Language | Unknown | + + + | Marital Status | | + + + | Cheondoism Affiliation | [id number] | + + + | Race | Unknown | + + + | Ethnic Group | Unknown | + + + Author + + + | Author | [facility] | | | and [place] | + + + | Organization | [facility] [...] Team Providers + +------+ + | Care Soda Tester Name | Role | Phone | + [...] | NEPHROLOGY [address] | [address] | | | | | [address] | [address] [place] | | | | | [place] | [place] [address] | | | | | [address] | [phone] | | | | | [phone] | | | +--------+ + + + [...]
--- NOTE | 2020-03-05 16:08 | CONS ---
[facility] [address], [place] [address] Signed DATE OF CONSULTATION: 03/04/2020 TIME: 6:30 p.m. REQUESTING PHYSICIAN: Dr. Boswell. PROBLEM: Newly incarcerated large right inguinal hernia. HISTORY OF PRESENT ILLNESS: This 60-year-old [place] man has chronic renal failure [place]. He is known to have right inguinal hernia, but in the past 2 days, the hernia is not reducible, previously it was. He presented to the emergency room where he was evaluated by Dr. Boswell. Findings included a very large and bulky right inguinal hernia, which was nonreducible and somewhat tender to palpation. He has had no nausea, vomiting, or anything to suggest small bowel obstruction proper. He denies any prior history of liver disease. He says he does not drink alcohol ("anymore"). He does not have a usual primary care physician, though he has seen at [facility] episodically. Most commonly, he is seen by his physician for dialysis which is ongoing. The source of his renal failure is unclear to me. REVIEW OF SYSTEMS: He denies any shortness of breath or chest pain. He has had no dysphagia or dysuria. He denies any blood per rectum. PHYSICAL EXAMINATION: GENERAL: Somewhat obese [place] man, who is alert and oriented and not systemically toxic. NECK: Trachea is midline. CHEST: Shows normal respiratory excursion without tachypnea. Pulse is regular. ABDOMEN: Massively enlarged. Has a typical appearance of ascites, though may simply be obesity. I see no sign of caput medusa. He has multiple small laparoscopic incisions of the abdominal wall. He cannot explain these other than to say at one time he was considered for peritoneal dialysis. GENITOURINARY: Examination of the genitalia shows a normal left testicle, uncircumcised male. The right side shows a rather large softball size nonreducible slightly tender mass consistent with hernia. It does not necessarily appear to be a hydrocele. It appears that there are bowel loops within it, although I cannot tell and I had no light to do transillumination. EXTREMITIES: Show no clubbing, cyanosis, or edema. Electronically Signed By: GILL FIELD MD 03/05/20 1608 PATIENT NAME: ISIDRA RINCON CONSULTATION DATE OF : 58 REPORT #: [id number] PHYSICIAN: GILL FIELD MD PCP: [facility] REPORT IS CONFIDENTIAL AND NOT TO BE RELEASED WITHOUT AUTHORIZATION [facility] [address], [place] [address] Signed ASSESSMENT: A nonreducible incarcerated inguinal hernia in the face of chronic renal failure. This is not particularly daunting as his schedule for dialysis is Sunday, Sunday, and Sunday. He could certainly have operation for the hernia and anticipate his routine dialysis tomorrow or even the next day. On the other hand, if he does have massive ascites as it is suspected, that is a completely different story. In particular, the high probability of ascites leak combined with his underlying renal failure to be extremely problematic for the resources available at this institution. A combination of paracentesis and dialysis will be needed to allow for successful reduction of the hernia and durable repair. This institution lacks dialysis capability. I have discussed this with Dr. Boswell. We will plan for a CT scan to be performed without IV contrast to assess the true nature of his abdominal findings as well as th e extent of hernia in the right hemiscrotum and so on. Mostly it will be to confirm that the clinical findings of massively enlarged abdomen are related to ascites ( or not). We will make a decision re admission based on that. MD ELIZA Taylor/SHAINAL /[id number] cc: [facility] Roderick Boswell MD Copies: [facility] RODERICK BOSWELL MD ~ Electronically Signed By: GILL FIELD MD 03/05/20 1608 PATIENT NAME: CASEISIDRA CONSULTATION DATE OF : 58 REPORT #: [id number] PHYSICIAN: GILL FIELD MD PCP: [facility] REPORT IS CONFIDENTIAL AND NOT TO BE RELEASED WITHOUT AUTHORIZATION
== END ==
LOC: ED 16:49
DX: K40.30 Unilateral inguinal hernia, with obstruction, without gangrene, not specified as recurrent (principal); R18.8 Other ascites; I12.9 Hypertensive chronic kidney disease with stage 1 through stage 4 chronic kidney disease, or unspecified chronic kidney disease; E11.22 Type 2 diabetes mellitus with diabetic chronic kidney disease; N18.9 Chronic kidney disease, unspecified; E11.40 Type 2 diabetes mellitus with diabetic neuropathy, unspecified; Z88.8 Allergy status to other drugs, medicaments and biological substances; Z79.899 Other long term (current) drug therapy; Z79.4 Long term (current) use of insulin; Z99.2 Dependence on renal dialysis
CPT/HCPCS: 74176; 80053; 85025; 93005; 93010; 96374; 96375; 96376; 99285-25; J1170; J2405

== ENCOUNTER 2020-10-10 21:45 | Emergency (ER) | payer MEDICARE, OTHER ==
[~2020-10-10] VITALS: Ht 182.9 cm; Wt 111.2 kg
--- NOTE | 2020-10-11 02:30 | EKG ---
[facility] [address] [facility] [place], [place] [address] Signed Atrial fibrillation with rapid ventricular response Right superior axis deviation Cannot rule out Anterior infarct , age undetermined Abnormal ECG When compared with ECG of 04-MAR-2020 19:05, Questionable change in QRS axis T wave amplitude has increased in Lateral leads Confirmed by SAGAR HAIDER MD ([id number]) on 10/11/2020 2:29:55 AM Electronically Signed By: SAGAR HAIDER MD 10/11/20 0230 PATIENT NAME: ISIDRA RINCON Electrocardiogram DATE OF : 58 PHYSICIAN: SAGAR HAIDER MD REPORT #: [id number] REPORT IS CONFIDENTIAL AND NOT TO BE RELEASED WITHOUT AUTHORIZATION
== END 2020-10-11 08:46 | disposition short-term general hospital (02) ==
LOC: ED 21:45
DX: E87.5 Hyperkalemia (principal); R18.8 Other ascites; I48.91 Unspecified atrial fibrillation; L08.9 Local infection of the skin and subcutaneous tissue, unspecified; E11.9 Type 2 diabetes mellitus without complications; Z20.822 Contact with and (suspected) exposure to COVID-19; E11.40 Type 2 diabetes mellitus with diabetic neuropathy, unspecified; I10 Essential (primary) hypertension; Z88.8 Allergy status to other drugs, medicaments and biological substances; Z79.899 Other long term (current) drug therapy; Z79.4 Long term (current) use of insulin
CPT/HCPCS: 70450; 72131; 73630; 80053; 83605; 83735; 84484; 85025; 85651; 86140; 93005; 93010; 96374; 96375; 99285-25; C9803; J0610; J1815; J2543; J3370; J7040; U0003

== ENCOUNTER 2021-03-19 08:33 | Emergency (ER) | payer MEDICARE, OTHER ==
[~2021-03-19] VITALS: Ht 185.4 cm; Wt 112.0 kg
[~2021-03-19 08:33] MED LIST changes: +CALCIUM ACETAT667 M1 PO; +CIPROFLOXACIN250 MG PO; +CRESTOR20 MG PO; +DIALYVITE VIT125 MCG PO; +DIGOXIN125 MCG PO; +FUROSEMIDE80 MG PO; +HECTOROL2 MCG/1 ML IV; +KAPSPARGO SPRIN50 MG PO; +LOPERAMIDE2 MG PO; +METRONIDAZOLE500 MG PO; +OMEPRAZOLE20 MG PO; +VELPHORO500 MG PO
== END 2021-03-19 10:58 | disposition home or self-care (01) ==
LOC: ED 08:33
DX: M86.9 Osteomyelitis, unspecified (principal); E11.40 Type 2 diabetes mellitus with diabetic neuropathy, unspecified; I10 Essential (primary) hypertension; I48.91 Unspecified atrial fibrillation; Z88.8 Allergy status to other drugs, medicaments and biological substances; Z79.899 Other long term (current) drug therapy; Z79.4 Long term (current) use of insulin
CPT/HCPCS: 96365; 96366; 99283-25; J3370; J7060

== ENCOUNTER 2021-04-13 16:00 | Emergency (ER) | payer MEDICARE, OTHER ==
[~2021-04-13] VITALS: Ht 185.4 cm; Wt 112.0 kg
[2021-04-13] MEDS ORDERED: HYDROCODON-ACE1 EA10 PO (19:26)
[2021-04-13] MEDS ORDERED: CEPHALEXIN500 M1 PO (19:26)
== END 2021-04-13 19:31 | disposition home or self-care (01) ==
LOC: ED 16:00
DX: L03.012 Cellulitis of left finger (principal); E11.40 Type 2 diabetes mellitus with diabetic neuropathy, unspecified; I10 Essential (primary) hypertension; I48.91 Unspecified atrial fibrillation; Z88.8 Allergy status to other drugs, medicaments and biological substances; Z79.899 Other long term (current) drug therapy; Z79.4 Long term (current) use of insulin
CPT/HCPCS: 73130; 80048; 85025; 99283-25

== ENCOUNTER 2022-06-23 14:36 | Emergency (ER) | payer MEDICARE, OTHER ==
[~2022-06-23] VITALS: Ht 185.4 cm; Wt 108.9 kg
[~2022-06-23 14:36] MED LIST changes: +CEPHALEXIN500 M1 PO; +HYDROCODON-ACE1 EA10 PO
== END 2022-06-23 16:51 | disposition home or self-care (01) ==
LOC: ED 14:36
DX: T82.838A Hemorrhage due to vascular prosthetic devices, implants and grafts, initial encounter (principal); E11.22 Type 2 diabetes mellitus with diabetic chronic kidney disease; I12.0 Hypertensive chronic kidney disease with stage 5 chronic kidney disease or end stage renal disease; N18.6 End stage renal disease; Z99.2 Dependence on renal dialysis; Z88.8 Allergy status to other drugs, medicaments and biological substances; Z79.4 Long term (current) use of insulin; Z79.899 Other long term (current) drug therapy; Y84.1 Kidney dialysis as the cause of abnormal reaction of the patient, or of later complication, without mention of misadventure at the time of the procedure
CPT/HCPCS: 99283

== ENCOUNTER 2022-08-04 15:05 | Emergency (ER) | payer MEDICARE, OTHER ==
[~2022-08-04] VITALS: Ht 185.4 cm; Wt 108.9 kg
[2022-08-04] MEDS ORDERED: GABAPENTIN100 MG PO (15:12)
[2022-08-04] MEDS ORDERED: METOPROLOL SUCC25 MG PO (15:13)
--- NOTE | 2022-08-05 06:55 | EKG ---
[facility] [address] [facility] [place] [address] Signed Atrial fibrillation with rapid ventricular response with premature ventricular or aberrantly conducted complexes Indeterminate axis Nonspecific ST and T wave abnormality Abnormal ECG When compared with ECG of 16-FEB-2022 16:40, QRS axis shifted left Confirmed by SAGAR HAIDER MD ([id number]) on 08/05/2022 6:54:48 AM Electronically Signed By: SAGAR HAIDER MD 08/05/22 0655 PATIENT NAME: ISIDRA RINCON Electrocardiogram DATE OF : 58 PHYSICIAN: SAGAR HAIDER MD REPORT #: [id number] REPORT IS CONFIDENTIAL AND NOT TO BE RELEASED WITHOUT AUTHORIZATION
== END 2022-08-04 19:52 | disposition home or self-care (01) ==
LOC: ED 15:05
DX: U07.1 COVID-19 (principal); E11.22 Type 2 diabetes mellitus with diabetic chronic kidney disease; I12.0 Hypertensive chronic kidney disease with stage 5 chronic kidney disease or end stage renal disease; N18.6 End stage renal disease; Z99.2 Dependence on renal dialysis; E11.40 Type 2 diabetes mellitus with diabetic neuropathy, unspecified; I48.91 Unspecified atrial fibrillation; Z88.8 Allergy status to other drugs, medicaments and biological substances; Z79.899 Other long term (current) drug therapy; Z79.4 Long term (current) use of insulin
CPT/HCPCS: 36415; 80053; 84484; 85025; 87502; 93005; 93010; 96374; 96375; 99285-25; C9803; U0003